=== PATIENT | female | born 1955 | race Caucasian/White ===

== ENCOUNTER 2018-07-22 11:50 | Emergency (ER) | payer BC, SELFPAY ==
[2018-07-22 11:52] VITALS: BP 161/77; PULSE 79; RESP 16; TEMP 36.7; O2SAT 97; BMI 28.3
--- NOTE | 2018-07-22 12:16 | RAD_ITS ---
STUDY: X-RAY - RIGHT HIP and pelvis REASON FOR EXAM: Female, 63 years old. Right hip pain TECHNIQUE: 2 views of the hip. An AP pelvis COMPARISON: None. FINDINGS: There is mild bilateral hip joint narrowing. There is minimal acetabular spurring. There is degenerative change of the symphysis pubis. The visualized degenerative change of the lower lumbar spine. Normal visualized superior and inferior pubic rami and ischial tuberosities. RAD/HIP, UNI W/ Pelvis 2-3 Views IMPRESSION: Mild degenerative change. No visualized acute fracture. Electronically Signed: Kyleigh Mayo MD at 12:47 EST Tel , Service support ,
--- NOTE | 2018-07-22 13:09 | ED.VISSUMM ---
- ER Visit Summary Date of Service: 07/22/18 Chief Complaint: [] Pain to the right anterior thigh for a few days after lifting logs History of Present Illness: The patient is a 63 F [] reports the other day she was lifting quite a bit of logs moving them around bending over multiple times she indicates she strained her right anterior thigh that pain has persisted and she presents for evaluation, she had no direct trauma no numbness weakness paresthesias no history of infection peripheral vascular disease or arthritic disorders her symptoms are restricted to the right anterior thigh and slightly to the lateral right hip no back pain and again no direct trauma Physical Examination: [] vSigns are within normal range General, no distress resting comfortably HEENT is generally unremarkable The neck is supple no adenopathy Cardiovascular, regular rate and rhythm Lungs, clear bilateral Abdomen, soft nontender Extremities, no clubbing cyanosis or edema she has a vague discomfort to the right anterior thigh that is generally unremarkable to inspection palpation there is no fullness or warmth there is no issues in the inguinal area she has a strong femoral pulse. She is able to fully extend and flex at the right knee the distal right knee tib-fib ankle and foot exam unremarkable her back is unremarkable and hip range of motion is really unremarkable except that any range of motion of the hip because of the pain in the right anterior thigh no trauma or bruising or signs of infection Neurologic, awake alert answering questions appropriately moving all 4 extremities Test Results: [] Emergency Department Course and Treatment: [] X-ray of the right hip shows nothing remarkable of explained above the patient This is likely related to some type of musculoskeletal strain given that is it is directly related to her lifting these multiple logs, she is treated with morphine here in the department Naprosyn for pain and she will follow-up with her family doctors the next few days Treatment Plan: [] Disposition: [] Home stable Impression: [] Right anterior thigh pain after lifting multiple logs This note was generated with [employer] dictation software. It may contain incorrect words, spelling, and punctuation that were not noted in review of the chart prior to signing ED Disposition - Plan for ED Patient: Referrals: Nahid Prado MD [Primary Care Provider] -
--- NOTE | 2018-07-22 13:13 | ED.DEP ---
ED Disposition - Plan for ED Patient: Instructions: ED Contusion Lower Ext Prescriptions: Naproxen [Naprosyn] 500 mg PO BID PRN #20 tab Referrals: Nahid Prado MD [Primary Care Provider] -
[2018-07-22] MEDS: Morphine 4 MG/ML Syringe IM (13:36)
[2018-07-22 14:37] VITALS: PULSE 83; RESP 14; O2SAT 99
== END 2018-07-22 14:14 | disposition home or self-care (01) ==
LOC: ED 13:54
PROVIDERS: Emergency Provider Emergency Medicine; Family Provider Internal Medicine; PCP Internal Medicine
DX: M79.651 Pain in right thigh (principal); X50.0XXA Overexertion from strenuous movement or load, initial encounter; Y93.89 Activity, other specified; Y92.89 Other specified places as the place of occurrence of the external cause; Y99.8 Other external cause status
CPT/HCPCS: 73502; 96372; 99284

== ENCOUNTER → 2019-04-12 08:32 | Outpatient (CLI) | payer BC, SELFPAY ==
--- NOTE | 2019-04-12 08:53 | EKG12_ITS ---
Test Reason : PRE OP Blood Pressure : / mmHG Vent. Rate : 068 BPM Atrial Rate : 068 BPM P-R Int : 176 ms QRS Dur : 078 ms QT Int : 434 ms P-R-T Axes : 042 078 094 degrees QTc Int : 461 ms Normal sinus rhythm Septal infarct , age undetermined Abnormal ECG Confirmed by HENRIQUE WHITTINGTON, AMBER ([id number]), housekeeping lead LORETTA PILLAI ([id number]) on 04/12/2019 12:15:39 PM Referred By: Param Clemente Confirmed By:AMBER DUENAS MD
[2019-04-12 08:55] LABS: Absolute Lymphocyte Count 2.37 X10^3/uL (0.83-4.51); Absolute Neutrophil Count 6.2 X10^3/uL (2.0-7.7); Basophil# 0.07 X10^3/uL; Basophil% 0.7 % (0-1); Eosinophil# 0.19 X10^3/uL; Hematocrit 42.8 % (37-47); Hemoglobin 13.8 g/dL (12.0-15.0); Lymphocyte # 2.37 X10^3/ul (4.0); Mean Corp Hgb Conc 32.2 g/dL (32-36); Mean Corpuscular Hgb 27.7 pg (27.0-32.0); Mean Corpuscular Volume 85.9 fL (81-99); Mean Platelet Vol. 10.4 fl (6.2-12.0); Monocyte# 0.59 X10^3/uL; Monocyte% 6.2 % (0-10); NRBC Flagged by Analyzer 0 % (0-5); Neutrophil # 6.24 X10^3/uL (2.7-7.7); Neutrophil % 65.9 % (47-70); Platelet Count 243 K/mm3 (150-450); RBC Distribution Width CV 14.6 % (11.6-14.6); RBC Distribution Width SD 45.9 fl (35.1-43.9); Red Blood Count 4.98 M/mm3 (4.2-5.4); White Blood Count 9.5 K/mm3 (4.4-11.0)
[2019-04-12 09:29] LABS: Anion Gap 7 (5-15); BUN 13 mg/dL (7-18); BUN/Creat Ratio 18.5 RATIO (10-20); Calcium,Total 8.9 mg/dL (8.5-10.1); Chloride 109 mmol/L (98-107); EST Glomerular Filtration Rate 90 mL/min (>60); Est Glom Filt Rate - Afr Amer 109 mL/min (>60); Glucose 126 mg/dL (74-106); Potassium 3.6 mmol/L (3.5-5.1); Sodium Level 144 mmol/L (136-145)
== END ==
PROVIDERS: Referring Provider Orthopaedic Surgery; Visit Provider Orthopaedic Surgery
DX: Z01.810 Encounter for preprocedural cardiovascular examination (principal); Z01.818 Encounter for other preprocedural examination
CPT/HCPCS: 36415; 80048; 85025; 93005

== ENCOUNTER 2020-08-10 00:59 | Inpatient (IN) | payer BC, SELFPAY ==
[2020-08-10] VITALS (24 sets, daily range): BP systolic 130–248; BP diastolic 55–105; PULSE 70–119; RESP 12–30; TEMP 36.1–36.9; O2SAT 73–99; BMI 29.9; BMI 29.5
--- NOTE | 2020-08-10 01:07 | RAD_ITS ---
STUDY: X-RAY CHEST REASON FOR EXAM: Female, 65 years old. sob TECHNIQUE: Single AP portable view of the chest. COMPARISON: None. FINDINGS: The lungs are normally expanded with fullness of the central vessels and interstitial prominence with BRADLEY B lines suggestive of early interstitial edema. There is no demonstrated pleural abnormality. Borderline cardiomegaly. Normal mediastinum and kamran. Normal visualized pulmonary arteries. There is atherosclerotic calcification of the aortic arch with tortuosity. Normal visualized thoracic spine. There is degenerative osteoarthritis of the bilateral shoulders. There is no demonstrated abnormality of the visualized soft tissue structures of the upper abdomen. RAD/Chest 1 View (Portable) IMPRESSION: Asymmetric interstitial pulmonary edema versus pneumonitis. Clinical correlation recommended. Electronically Signed: Brittny Ludwig MD at 2:13 EDT , Service support ,
--- NOTE | 2020-08-10 01:07 | EKG12_ITS ---
Test Reason : SOB Blood Pressure : / mmHG Vent. Rate : 103 BPM Atrial Rate : 103 BPM P-R Int : 160 ms QRS Dur : 088 ms QT Int : 392 ms P-R-T Axes : 077 100 -06 degrees QTc Int : 513 ms Sinus tachycardia with Premature supraventricular complexes Rightward axis Septal infarct , age undetermined Abnormal ECG Confirmed by HENRIQUE WHITTINGTON, AMBER ([id number]), editorial director JESSICA ROMO ([id number]) on 08/11/2020 9:04:39 AM Referred By: DAYNA Confirmed By:AMBER DUENAS MD
--- NOTE | 2020-08-10 01:30 | ED.VIS.GEN ---
History of Present Illness Chief Complaint: Shortness of Breath Informant: Patient Onset: Today Context: Sudden Onset Timing: Continuous Current Severity: Severe Maximum Severity: Severe Narrative: The patient is a 65-year-old female with history of prior arthritis, significant smoking history, but no diagnosis of COPD or asthma who presents to the emergency department rather acute onset shortness of breath. History is hard to gather from the patient given her acute respiratory distress. Apparently, she woke out of bed. She told her significant other that she was having difficult time breathing. He could hear her audibly wheezing. She sat in front of the fan but felt that she cannot catch her breath. She immediately presented here. On arrival, the patient was hypoxic with oxygen saturations in the upper 70s despite nasal cannula. She was placed on nonrebreather but immediately transitioned to BiPAP. The only current medication that she is on is meloxicam for her knees. She did state that she had bandlike chest tightness because she felt like she cannot catch her breath. She is had scant cough without hemoptysis. She denies fever. She did have cough leading to posttussive emesis. Prior similar symptoms: No Recent Illness/Hospitalization: No Past Medical History - Allergies and Home Meds Allergies/Adverse Reactions: Allergies acetaminophen [From Darvocet-N] Allergy (Verified 08/10/20 01:05) Hives propoxyphene [From Darvocet-N] Allergy (Verified 08/10/20 01:05) Hives Primary Care Physician: Care Physician,No Primary [Primary Care Provider] - Prior records reviewed: Yes Past Medical History: - - Significant smoking history, arthritis Surgical History: noncontributory Smoking Status: Current every day smoker Review of Systems General: Denies: Chills, Fever, Sweats Eyes: Denies: Visual changes - bilaterally, Diplopia ENT: Denies: Rhinorrhea, Sore throat Cardiovascular: Reports: Chest pain. Denies: Palpitations Respiratory: Reports: Dyspnea, Cough, Sputum, Dyspnea on exertion Gastrointestinal: Denies: Abdominal pain, Nausea, Vomiting, Diarrhea, Melena, Hematochezia Genitourinary: Denies: Dysuria, Hematuria, Frequency Musculoskeletal: Denies: Back pain, Extremity Pain Skin: Denies: Rash, Wounds Neurological: Denies: Headache, Weakness, Numbness Physical Exam Vital Signs/Narrative: Vital Signs Temp Pulse Resp BP Pulse Ox 03/22/21 01:06 248/105 H 08/10/20 01:04 97 F L 105 H 22 H 248/105 H 73 08/10/20 00:59 97 F L 105 H 22 H 73 Inital Vital Signs reviewed: Yes General: Well nourished, Well developed, Acute Distress Head: Normocephalic, Atraumatic Eyes: Perrl, EOMI ENT: Moist mucous membranes, No rhinorrhea Neck: Supple, Nontender Cardiovascular: Regular rhythm, No murmurs, Tachycardia Respiratory: Chest nontender, Wheezing, Diminished, Decreased Air Movement, Retractions Abdomen: Soft, Nontender, Nondistended, Normal bowel sounds Back: Nontender, Normal Inspection Extremities: Nontender, No edema Skin: Normal color, No rash Neurological: Alert, Oriented x3, Cranial nerves II-XII grossly intact, Normal Strength, Normal Sensation Psychological: Normal affect, Normal Mood Diagnostic/Tx/Re-eval Clinical Impression(s) from Imaging Studies Chest X-Ray 08/10/20 01:07 IMPRESSION: Asymmetric interstitial pulmonary edema versus pneumonitis. Clinical correlation recommended. Electronically Signed: Brittny Ludwig MD at 2:13 EDT , Service support , Abnormal Lab Results 08/10/20 08/10/20 08/10/20 01:15 01:27 01:35 WBC 8.0 RBC 4.96 Hgb 13.5 Hct 42.8 MCV 86.3 MCH 27.2 MCHC 31.5 L RDW Std Deviation 45.7 H RDW Coeff of Ele 14.4 Plt Count 195 MPV 11.0 Immature Gran % (Auto) 0.400 Neut % (Auto) 48.4 Lymph % (Auto) 40.5 Saunders % (Auto) 6.8 Eos % (Auto) 3.0 Baso % (Auto) 0.9 Absolute Neuts (auto) 3.9 Absolute Lymphs (auto) 3.23 Nucleated RBC % 0 Specimen Type ART Sample Site L Radial pH 7.34 L Bicarbonate Actual 21.0 L Total CO2 22 Base Excess -5 L O2 Saturation 92 L O2 % 35 ABG pCO2 39.2 ABG pO2 66 L David Test Positive O2 Delivery Device BiPAP Clinical Comments 02/11 35% Sodium 139 Potassium 2.7 L* Chloride 106 Carbon Dioxide 23.0 Anion Gap 10 BUN 13 Creatinine 0.78 Estim Creat Clear Calc 66.43 Est GFR (MDRD) Af Amer 96 Est GFR (MDRD) Non-Af 80 BUN/Creatinine Ratio 16.7 Glucose 215 H Lactic Acid Calcium 8.6 Troponin I 0.209 H B-Natriuretic Peptide 08/10/20 08/10/20 01:35 02:05 WBC RBC Hgb Hct MCV MCH MCHC RDW Std Deviation RDW Coeff of Ele Plt Count MPV Immature Gran % (Auto) Neut % (Auto) Lymph % (Auto) Saunders % (Auto) Eos % (Auto) Baso % (Auto) Absolute Neuts (auto) Absolute Lymphs (auto) Nucleated RBC % Specimen Type Sample Site pH Bicarbonate Actual Total CO2 Base Excess O2 Saturation O2 % ABG pCO2 ABG pO2 David Test O2 Delivery Device Clinical Comments Sodium Potassium Chloride Carbon Dioxide Anion Gap BUN Creatinine Estim Creat Clear Calc Est GFR (MDRD) Af Amer Est GFR (MDRD) Non-Af BUN/Creatinine Ratio Glucose Lactic Acid 2.4 H* Calcium Troponin I B-Natriuretic Peptide 133.1 H - Rhythm Strip Rhythm Strip: Sinus Tach Rate: 110 Ectopy: None - EKG Initial EKG Interpretation: No Acute Injury Pattern, Sinus Tachycardia, Non-Specific ST Changes Prior: Unchanged - Medical Decision Making On arrival, the patient is markedly hypertensive, my suspicion is this is because of her significant respiratory distress. She was transitioned immediately to BiPAP with marked improvement of her aeration and her comfort. ABG was obtained. Chest x-ray was obtained. Was reviewed by both myself and the radiologist. There is asymmetry of the vasculature with cephalization. There is no focal infiltrative process. The patient was hypoxemic, but not significantly acidotic. She was covered with Solu-Medrol and breathing treatments. She continued to be much more comfortable with the BiPAP. Screening labs are relatively unremarkable. The patient is hypokalemic which was replaced both orally and through the IV. Her cardiac enzymes are indeterminant, but given her global hypoxia and respiratory distress, my suspicion is this is likely type II strain. However, the patient was given aspirin. Blood cultures and lactic acid were also obtained. With the patient's hypoxic respiratory failure, I do feel that she is going to require admission. Impression 1. Hypoxic respiratory failure 2. COPD exacerbation 3. Hypokalemia ED Disposition - Plan for ED Patient: Referrals: Care Physician,No Primary [Primary Care Provider] -
[2020-08-10 01:31] LABS: Allen Test Positive; Base Excess -5 mmol/L (-2 to +2); Blood Gas Specimen Type ART; FI02 35; O2 Delivery Device BiPAP; PO2 66 mmHG (75-100); SITE L Radial; SO2 92 % (95-99); Total Carbon Dioxide 22 mmol/L; pCO2 39.2 mmHg (35-45); pH 7.34 (7.35-7.45)
[2020-08-10] MEDS: Ipratropium/Albuterol Sulfate 3 ML AMPUL.NEB INHALATION ×3 (01:34→12:54)
[2020-08-10] MEDS: Albuterol 2.5 MG/3 ML VIAL.NEB. INHALATION ×3 (01:34)
[2020-08-10 01:42] LABS: Absolute Lymphocyte Count 3.23 X10^3/uL (0.83-4.51); Absolute Neutrophil Count 3.9 X10^3/uL (2.0-7.7); Basophil# 0.07 X10^3/uL; Basophil% 0.9 % (0-1); Eosinophil# 0.24 X10^3/uL; Hematocrit 42.8 % (37-47); Hemoglobin 13.5 g/dL (12.0-15.0); Lymphocyte # 3.23 X10^3/ul (4.0); Lymphocyte % 40.5 % (19-41); Mean Corp Hgb Conc 31.5 g/dL (32-36); Mean Corpuscular Hgb 27.2 pg (27.0-32.0); Mean Corpuscular Volume 86.3 fL (81-99); Monocyte# 0.54 X10^3/uL; Monocyte% 6.8 % (0-10); NRBC Flagged by Analyzer 0 % (0-5); Neutrophil # 3.86 X10^3/uL (2.7-7.7); Neutrophil % 48.4 % (47-70); Platelet Count 195 K/mm3 (150-450); RBC Distribution Width CV 14.4 % (11.6-14.6); RBC Distribution Width SD 45.7 fl (35.1-43.9); Red Blood Count 4.96 M/mm3 (4.2-5.4)
[2020-08-10 01:44] LABS: Anion Gap 10 (5-15); BUN 13 mg/dL (7-18); BUN/Creat Ratio 16.7 RATIO (10-20); Calcium,Total 8.6 mg/dL (8.5-10.1); Chloride 106 mmol/L (98-107); Creatinine, Serum 0.78 mg/dL (0.55-1.02); EST Glomerular Filtration Rate 80 mL/min (>60); Est Glom Filt Rate - Afr Amer 96 mL/min (>60); Estimated Creatinine Clearance 66.43 ml/min; Glucose 215 mg/dL (74-106); Potassium 2.7 mmol/L (3.5-5.1); Sodium Level 139 mmol/L (136-145)
[2020-08-10] MEDS: MethylPREDNISolone 125 MG/2 ML Vial IV (01:46)
[2020-08-10] MEDS: Potassium Chloride Oral Soln 20 MEQ/15 ML UDC 40 MEQ PO (01:55)
[2020-08-10] MEDS: Potassium Chloride 10mEq/100mL 10 MEQ/100 ML IV.SOLN. 100 MEQ IV BOLUS ×2 (01:55→03:05)
[2020-08-10] MEDS: Aspirin 325 MG Tablet PO (01:55)
[2020-08-10 02:00] LABS: BNP,B-Type NATRIURETIC PEPTIDE 133.1 pg/mL (0-100)
[2020-08-10 02:35] LABS: Lactic Acid 2.4 mmol/L (0.4-1.9)
--- NOTE | 2020-08-10 03:07 | HP.PCM_ITS ---
Problem List (1) Acute hypoxemic respiratory failure Status: Acute History of Present Illness Date of Admission: 08/10/20 Chief Complaint: Shortness of breath The patient is a 65 year old F with a significant history of tobacco abuse who presented to the emergency department with sudden shortness of breath. For the past 3 weeks patient has had shortness of breath with mild exertion. However on the day of presentation she had very severe sudden onset shortness of breath more than she has had in the past 3 weeks. She placed herself in front of a fan, but did not seem to help her symptoms. Her significant other heard audibly wheezing. Also she had a cough with post-tussive emesis. In the emergency department, the patient was hypoxic. She was 73% on room air. She was placed immediately on BiPAP. The patient was treated with Solu-Medrol and nebulized aerosols. With BiPAP, her respiratory status did improve. ABG was obtained which showed hypoxemia, but no significant respiratory acidosis. The patient was markedly hypertensive on arrival with blood pressures of 250 systolic. With respiratory care and without other intervention, repeat blood pressure was down to 150 to 160. Past Medical History Medical History: Medical History (This Medical Record has been edited. Action required.) Denies previous medical history Allergies acetaminophen [From Darvocet-N] Allergy (Verified 08/10/20 01:05) Hives propoxyphene [From Darvocet-N] Allergy (Verified 08/10/20 01:05) Hives Home Medications: Ambulatory Orders Medication Instructions Recorded Meloxicam 15 mg PO DAILY 08/10/20 Surgical History: - - Elbow surgery Smoking Status: Current every day smoker Tobacco Use: Cigarettes - *Family History Maternal History Items: Diabetes Paternal History Items: Heart Disease Review of Systems Constitutional: Denies: Chills, Fever, Weight Change HEENT: Denies: Head Aches, Sinus Congestion, Sinus Drainage Cardiovascular: Denies: Chest Pain, Palpitations Respiratory: Reports: Cough, Shortness of Breath. Denies: Sputum production Gastrointestinal: Reports: Vomiting. Denies: Abdominal Pain, Nausea Genitourinary: Denies: Dysuria Musculoskeletal: Denies: Joint Pain, Joint Tenderness Skin: Denies: Rash, Wounds Neurological: Denies: Numbness, Tingling, Focal weakness Psychiatric: Denies: Anxiety, Depression, Homicidal Ideations, Suicidal Ideations Hematologic/ Lymphatic: Denies: Easy Bruising, Easy Bleeding VTE Information - Inpt Only VTE Present on Admission: No VTE Mechan Device Prophylaxis: None VTE Pharm Prophylaxis ordered?: Yes Patient Problems: Active and Suspected Problems (This Medical Record has been edited. Action required.) Acute hypoxemic respiratory failure (Acute) - Physical Exam Vitals/I&O's: Vital Signs Temp Pulse Resp BP Pulse Ox 98.4 F 100 18 160/83 H 99 08/10/20 02:49 08/10/20 02:49 08/10/20 02:49 08/10/20 02:49 08/10/20 02:49 Oxygen Flow Rate (L/min) 40 Oxygen Delivery Method Bi-pap Weight: 81.8 kg Body Mass Index (BMI) 29.9 Intake and Output for Last 24 Hours 08/08/20 08/09/20 08/10/20 23:59 23:59 23:59 Intake Total 100 / 100 Balance 100 / 100 General: Alert, Oriented x3, Cooperative HEENT: Atraumatic, PERRLA, EOMI, Normocephalic Neck: Supple, No JVD, Negative Carotid Bruits Lungs: Rales, Tachypneic Cardiovascular: Normal S1, Normal S2, No murmurs, Tachycardic Abdomen: Bowel Sounds Present, Soft, Non Tender Extremities: No edema, Capillary Refill Less than 3 Seconds Skin: No rashes, No breakdown Musculoskeletal: No Tenderness to Palpation of Joints or Extremities Neurological: Cranial nerves II-XII grossly intact Psych/Mental Status: Anxious Microbiology Past 72 Hours 08/10/20 02:10 Mucosa - Nose SARS-CoV-2 Antigen (Rapid) - Final Laboratory Results 08/10/20 01:15: Sodium 139, Potassium 2.7 L*, Chloride 106, Carbon Dioxide 23.0, Anion Gap 10, BUN 13, Creatinine 0.78, Estim Creat Clear Calc 66.43, Est GFR (MDRD) Af Amer 96, Est GFR (MDRD) Non-Af 80, BUN/Creatinine Ratio 16.7, Glucose 215 H, Calcium 8.6, Troponin I 0.209 H 08/10/20 01:27: Specimen Type ART, Sample Site L Radial, pH 7.34 L, Bicarbonate Actual 21.0 L, Total CO2 22, Base Excess -5 L, O2 Saturation 92 L, O2 % 35, ABG pCO2 39.2, ABG pO2 66 L, David Test Positive, O2 Delivery Device BiPAP, Clinical Comments 14/6 35% 08/10/20 01:35: WBC 8.0, RBC 4.96, Hgb 13.5, Hct 42.8, MCV 86.3, MCH 27.2, MCHC 31.5 L, RDW Std Deviation 45.7 H, RDW Coeff of Ele 14.4, Plt Count 195, MPV 11.0, Immature Gran % (Auto) 0.400, Neut % (Auto) 48.4, Lymph % (Auto) 40.5, Gregory % (Auto) 6.8, Eos % (Auto) 3.0, Baso % (Auto) 0.9, Absolute Neuts (auto) 3.9, Absolute Lymphs (auto) 3.23, Nucleated RBC % 0 08/10/20 01:35: B-Natriuretic Peptide 133.1 H 08/10/20 02:05: Lactic Acid 2.4 H* Current Medications Potassium Chloride () 10 meq in 100 mls @ 100 mls/hr IV BOLUS Q1H ALFA Stop: 08/10/20 03:59 Last Admin: 08/10/20 03:05 Dose: 100 mls/hr Documented by: Assessment/Plan All Active Problems (This Medical Record has been edited. Action required.) Acute hypoxemic respiratory failure (Acute) The patient is a 65 year old F with clinical head and who presented to the emergency department with sudden onset shortness of breath; wheezing; posttussive was found to be severely hypoxic requiring BiPAP; and with radiographic evidence of interstitial pulmonary edema versus pneumonitis. Acute hypoxemic respiratory failure Radiologist impression of chest x-ray: Asymmetric interstitial edema versus pneumonitis. Actual chest x-ray image was independently reviewed. Increased lung markings bilaterally and more prominent on the right side. Sravanthi B-lines noted. Hyperinflation of lungs with mild flattening of left side of diaphragm. ABG reviewed showed a pH of 7.34. Bicarbonate was 23 showing the patient is not a chronic retainer. Her PO2 was 66 mmHg on BiPAP. Etiology unclear. Likely secondary to acute bronchitis or flash pulmonary edema. Patient denies history of COPD. On BiPAP at emergency department and transition to nasal cannula oxygen. Continue BiPAP as needed. Oxygen per nasal cannula to maintain saturation more than 92%. Received Solu-Medrol; breathing treatment and Lasix at the emergency department. BNP is 133.1. Will obtain echocardiogram. Lasix 40 mg IV twice daily ordered. Potassium supplementation ordered. Placed on scheduled DuoNeb and Solu-Medrol. As needed albuterol inhalation ordered. Daily weights ordered. Cardiac diet ordered. Fluid restriction of 1,500 mL/day. Hypertensive emergency Organ dysfunction: Lungs Blood pressure initially in the 200s but with a BiPAP and other interventions at the emergency department her blood pressure decreased to 1 50-1 60. Nitroglycerin paste ordered. Trend blood pressure and adjust blood pressure medication. Lasix as above. Lactic acidosis Lactic acid of 2.4 on presentation likely secondary to hypoxia. Trend. Hypokalemia Albuterol and IV potassium placement ordered at the emergency department Placed on scheduled potassium oral supplementation. Elevated troponin Initial troponin was 0.209. EKG independently interpreted showed MAT. We will trend troponin. Treat respiratory failure as above. Acute hyperglycemia Blood glucose of 215. Likely secondary to stress. We will check A1c. Reported Accu-Chek with correction scale insulin. Tobacco abuse Counseled Declined nicotine patch. DVT prophylaxis Subcutaneous Lovenox. Inpatient E&M: 57612 Init Hosp L3
[2020-08-10] MEDS: Furosemide 40 MG/4 ML Vial IV ×3 (03:19→18:07)
[2020-08-10 04:50] LABS: Reflex Lactate? N
--- NOTE | 2020-08-10 04:54 | ECHOD_ITS ---
Reason For Study: SOB Procedure This was a 2D Doppler, Color Flow transthoracic echocardiogram. Exam performed portable in patient room. Left Ventricle Normal LV size. Moderate concentric left ventricular hypertrophy. Left ventricular systolic function is normal. The estimated ejection fraction is 60 %. Stage 2 diastolic dysfunction. No regional wall motion abnormalities noted. Right Ventricle Normal RV size. Normal systolic function. Atria The left atrium is moderately enlarged. Normal right atrium. Mitral Valve There is moderate mitral annular calcification. Small mobile structure attached to calcified mitral annulus. Tricuspid Valve Normal tricuspid valve. Aortic Valve Trivial eccentric aortic valve insufficiency. Pulmonic Valve Normal pulmonic valve. Great Vessels Normal aortic root. The pulmonary artery is normal size. Normal inferior vena cava. Pericardium/Pleural No pericardial effusion. MMode/2D Measurements & Calculations LVIDd: 4.2 cm IVSd: 1.4 cm Ao root diam: 3.9 cm LVIDs: 2.9 cm LVPWd: 1.7 cm LA dimension: 4.3 cm FS: 31.0 % LAV(MOD-bp): 92.9 ml LA A4 area: 26.7 cm2 RA A4 area: 19.8 cm2 LAV(MOD-bp) Indexed: 49.5 ml/m2 LAV(MOD-sp2): 95.9 ml LAV(MOD-sp4): 89.6 ml Time Measurements MV dec time: 0.29 sec Doppler Measurements & Calculations MV E max graham: 157.5 cm/sec MV V2 max: 191.6 cm/sec MV P1/2t max graham: 192.6 cm/sec MV A max graham: 105.5 cm/sec MV max P.7 mmHg MV P1/2t: 76.4 msec MV E/A: 1.5 MV V2 mean: 119.0 cm/sec MV dec slope: 738.4 cm/sec2 MV mean P.3 mmHg MVA(P1/2t): 2.9 cm2 MV V2 VTI: 50.8 cm Ao V2 max: 172.6 cm/sec LV V1 max: 155.8 cm/sec PA V2 max: 137.7 cm/sec Ao max P.9 mmHg LV V1 max P.7 mmHg Interpretation Summary Small mobile structure attached to calcified mitral annulus. Normal LV size. Moderate concentric left ventricular hypertrophy. Left ventricular systolic function is normal. The estimated ejection fraction is 60 %. Stage 2 diastolic dysfunction. The left atrium is moderately enlarged. Ordering Physician: Higinio Galloway Referring Physician: Saundra PCP Performed By: Mason Reyes RCS
[2020-08-10 05:09] LABS: Anion Gap 8 (5-15); BUN 11 mg/dL (7-18); BUN/Creat Ratio 16.2 RATIO (10-20); Calcium,Total 8.6 mg/dL (8.5-10.1); Chloride 109 mmol/L (98-107); Creatinine, Serum 0.68 mg/dL (0.55-1.02); EST Glomerular Filtration Rate 93 mL/min (>60); Est Glom Filt Rate - Afr Amer 113 mL/min (>60); Glucose 136 mg/dL (74-106); Potassium 3.4 mmol/L (3.5-5.1); Sodium Level 144 mmol/L (136-145)
[2020-08-10 05:11] LABS: Lactic Acid 2.6 mmol/L (0.4-1.9)
[2020-08-10] MEDS: 0.9% Saline Lock 10 ML Syringe IV ×4 (05:18→18:07)
[2020-08-10] MEDS: Nitroglycerin Oint 1 INCH PACKET 0.5 INCH TD ×3 (05:21→18:07)
[2020-08-10 05:41] LABS: Bedside Glucose 143 mg/dL (70-110)
[2020-08-10 07:07] LABS: Absolute Lymphocyte Count 0.68 X10^3/uL (0.83-4.51); Absolute Neutrophil Count 9.7 X10^3/uL (2.0-7.7); Basophil# 0.03 X10^3/uL; Basophil% 0.3 % (0-1); Eosinophil# 0.01 X10^3/uL; Eosinophils% 0.1 % (0-5); Hematocrit 39.5 % (37-47); Hemoglobin 12.4 g/dL (12.0-15.0); Lymphocyte # 0.68 X10^3/ul (4.0); Lymphocyte % 6.4 % (19-41); Mean Corp Hgb Conc 31.4 g/dL (32-36); Mean Corpuscular Volume 85.9 fL (81-99); Mean Platelet Vol. 10.7 fl (6.2-12.0); Monocyte# 0.14 X10^3/uL; Monocyte% 1.3 % (0-10); NRBC Flagged by Analyzer 0 % (0-5); Neutrophil # 9.65 X10^3/uL (2.7-7.7); Neutrophil % 91.5 % (47-70); Platelet Count 258 K/mm3 (150-450); RBC Distribution Width CV 14.6 % (11.6-14.6); RBC Distribution Width SD 45.9 fl (35.1-43.9); White Blood Count 10.6 K/mm3 (4.4-11.0)
[2020-08-10 07:53] LABS: Hemoglobin A1c 5.5 % (3.8-5.6)
[2020-08-10] MEDS: Enoxaparin 40 MG/0.4 ML Syringe SC (10:18)
[2020-08-10] MEDS: Potassium Chloride Oral Tablet 20 MEQ 40 MEQ PO ×2 (10:18→18:07)
[2020-08-10 11:40] LABS: Bedside Glucose 187 mg/dL (70-110)
--- NOTE | 2020-08-10 13:03 | PCM.PN.HOSP ---
Patient Problems: Active and Suspected Problems (This Medical Record has been edited. Action required.) Acute hypoxemic respiratory failure (Acute) Subjective: Patient seen and examined. She feels much better today, and denies shortness of breath, cough or chest pain. Review of systems is otherwise negative. She was admitted with sudden onset shortness of breath, and require BiPAP. She is now on 2 L of oxygen by nasal cannula. She has remained hemodynamically stable. Vitals/I&O's: Vital Signs Temp Pulse Resp BP Pulse Ox 98.3 F 82 18 130/58 H 97 08/10/20 10:25 08/10/20 10:25 08/10/20 10:25 08/10/20 10:25 08/10/20 10:25 Oxygen Flow Rate (L/min) 2 Oxygen Delivery Method Nasal Cannula Weight: 177 lb 11.2 oz Body Mass Index (BMI) 29.5 Intake and Output for Last 24 Hours 08/08/20 08/09/20 08/10/20 23:59 23:59 23:59 Intake Total 200 / 200 Output Total 600 / 600 Balance -400 / -400 General: Alert, Oriented x3, Cooperative, No apparent distress HEENT: Atraumatic, PERRLA, EOMI, Normocephalic Oral: Dry Mucosa Neck: Supple, No JVD, Negative Carotid Bruits Lungs: - - diminished breath sounds bibasally, few wheezes and crackles. on 2L of oxygen Cardiovascular: Regular rate, Regular Rhythm, Normal S1, Normal S2, No murmurs Abdomen: Bowel Sounds Present, Soft, Non Tender, Non-Distended, No Hepato-splenomegaly Extremities: No clubbing, No cyanosis, No edema, Capillary Refill Less than 3 Seconds Skin: No rashes, No breakdown Musculoskeletal: No Tenderness to Palpation of Joints or Extremities Lymphatic: No Cervical, Supraclavicular, or Inguinal Adenopathy Neurological: Cranial nerves II-XII grossly intact, Neuro grossly intact, Motor Exam 5/5 strength throughout Psych/Mental Status: Normal Affect, Appropriate, Alert and oriented to time, place, person, mood and affect Microbiology Past 72 Hours 08/10/20 02:10 Mucosa - Nose SARS-CoV-2 Antigen (Rapid) - Final Laboratory Results 08/10/20 01:15: Sodium 139, Potassium 2.7 L*, Chloride 106, Carbon Dioxide 23.0, Anion Gap 10, BUN 13, Creatinine 0.78, Estim Creat Clear Calc 66.43, Est GFR (MDRD) Af Amer 96, Est GFR (MDRD) Non-Af 80, BUN/Creatinine Ratio 16.7, Glucose 215 H, Calcium 8.6, Troponin I 0.209 H 08/10/20 01:27: Specimen Type ART, Sample Site L Radial, pH 7.34 L, Bicarbonate Actual 21.0 L, Total CO2 22, Base Excess -5 L, O2 Saturation 92 L, O2 % 35, ABG pCO2 39.2, ABG pO2 66 L, David Test Positive, O2 Delivery Device BiPAP, Clinical Comments 14/6 35% 08/10/20 01:35: WBC 8.0, RBC 4.96, Hgb 13.5, Hct 42.8, MCV 86.3, MCH 27.2, MCHC 31.5 L, RDW Std Deviation 45.7 H, RDW Coeff of Ele 14.4, Plt Count 195, MPV 11.0, Immature Gran % (Auto) 0.400, Neut % (Auto) 48.4, Lymph % (Auto) 40.5, [place] % (Auto) 6.8, Eos % (Auto) 3.0, Baso % (Auto) 0.9, Absolute Neuts (auto) 3.9, Absolute Lymphs (auto) 3.23, Nucleated RBC % 0 08/10/20 01:35: B-Natriuretic Peptide 133.1 H 08/10/20 02:05: Lactic Acid 2.4 H* 08/10/20 04:40: Troponin I 0.314 H 08/10/20 04:40: Lactic Acid 2.6 H* 08/10/20 04:40: Sodium 144, Potassium 3.4 L, Chloride 109 H, Carbon Dioxide 27.0, Anion Gap 8, BUN 11, Creatinine 0.68, Estim Creat Clear Calc 76.20, Est GFR (MDRD) Af Amer 113, Est GFR (MDRD) Non-Af 93, BUN/Creatinine Ratio 16.2, Glucose 136 H, Calcium 8.6 08/10/20 05:21: POC Glucose 143 H 08/10/20 06:50: Troponin I 0.323 H 08/10/20 06:50: Hemoglobin A1c 5.5 08/10/20 06:50: WBC 10.6, RBC 4.60, Hgb 12.4, Hct 39.5, MCV 85.9, MCH 27.0, MCHC 31.4 L, RDW Std Deviation 45.9 H, RDW Coeff of Ele 14.6, Plt Count 258, MPV 10.7, Immature Gran % (Auto) 0.400, Neut % (Auto) 91.5 H, Lymph % (Auto) 6.4 L, [place] % (Auto) 1.3, Eos % (Auto) 0.1, Baso % (Auto) 0.3, Absolute Neuts (auto) 9.7 H, Absolute Lymphs (auto) 0.68 L, Nucleated RBC % 0 08/10/20 11:32: POC Glucose 187 H Diagnostic Data Chest X-Ray 08/10/20 01:07 IMPRESSION: Asymmetric interstitial pulmonary edema versus pneumonitis. Clinical correlation recommended. Electronically Signed: Brittny Ludwig MD at 2:13 EDT , Service support , Current Medications Acetaminophen (Acetaminophen 325 Mg Tablet) 650 mg PO Q6H PRN PRN PRN Reason: Pain Score 1-10/Temp > 100.7 F Albuterol Sulfate (Albuterol 2.5 Mg/3 Ml Vial.Neb.) 2.5 mg INHALATION Q2H PRN PRN PRN Reason: SHORTNESS OF BREATH Albuterol/Ipratropium (Ipratropium/Albuterol Sulfate 3 Ml Ampul.Neb) 3 ml INHALATION Q6HWA.RT [facility] Last Admin: 08/10/20 12:54 Dose: 3 ml Documented by: Dextrose (Dextrose 50%-Water 25 Gm/50 Ml Disp.Syrin) 0 gm IV X1 PRN; Protocol PRN Reason: Hypoglycemia Enoxaparin Sodium (Enoxaparin 40 Mg/0.4 Ml Syringe) 40 mg SC DAILY [facility] Last Admin: 08/10/20 10:18 Dose: 40 mg Documented by: Furosemide (Furosemide 40 Mg/4 Ml Vial) 40 mg IV BID@1000,1800 [facility] Last Admin: 08/10/20 10:18 Dose: 40 mg Documented by: Glucagon (Glucagon 1 Mg/Ml Syringe) 1 mg IM .X1 PRN PRN Reason: Hypoglycemia Sodium Chloride () 250 mls @ 15 mls/hr IV .[id number] PRN PRN Reason: Saline Flush Insulin Human Lispro (Insulin Lispro 100 Unit/Ml Insuln.Pen) 0 unit SC ACHS [facility]; Protocol Last Admin: 08/10/20 05:22 Dose: Not Given Documented by: Melatonin (Melatonin 3 Mg Tablet) 3 mg PO QHS PRN PRN PRN Reason: INSOMNIA Methylprednisolone (Methylprednisolone 40 Mg/Ml Vial) 40 mg IV Q8 [facility] Last Admin: 08/10/20 12:52 Dose: 40 mg Documented by: Nitroglycerin (Nitroglycerin Oint 1 Inch Packet) 0.5 inch TD Q6 [facility] Last Admin: 08/10/20 12:53 Dose: 0.5 inch Documented by: Ondansetron HCl (Ondansetron 4 Mg/2 Ml Vial) 4 mg IV Q8H PRN PRN PRN Reason: NAUSEA/VOMITING Potassium Chloride (Potassium Chloride Oral Tablet 20 Meq) 40 meq PO BIDCM [facility] Last Admin: 08/10/20 10:18 Dose: 40 meq Documented by: Senna/Docusate Sodium (Senna/Docusate Sodium 1 Tablet) 2 tablet PO BID PRN PRN PRN Reason: Constipation Sodium Chloride (0.9% Saline Lock 10 Ml Syringe) 10 - 40 ml IV UD PRN PRN Reason: SALINE FLUSH Last Admin: 08/10/20 12:52 Dose: 10 ml Documented by: STROKE Vital Signs/Narrative: Vital Signs Temp Pulse Resp BP Pulse Ox 08/10/20 10:25 98.3 F 82 18 130/58 H 97 Medical Necessity - Tobacco Use Smoking Status: Current every day smoker Tobacco Use: Cigarettes Assessment/Plan All Active Problems (This Medical Record has been edited. Action required.) Acute hypoxemic respiratory failure (Acute) #Acute hypoxic respiratory failure xray showed asymmetric interstitial edema vs pneumonitis, as well as hyperinflation cause of acute onset shortness of breath is not very clear on IV solumedrol troponins were elevated and peaked at 0.343; this could have been due to hypoxia though. 2D echo ordered will also get a CTA of the chest to rule out PE titrate oxygen to maintain sats >90% breathing treatment with bronchodilators #Hypertensive emergency resolved. BP is normal now. #Lactic acidosis: likely due to hypoxia. Stable #Hypokalemia: resolved #Nonstemi 0.323. EKG showed multiatrial tachycardia. 2D echo ordered, pending. likely due to demand ischemia from hypoxia CTA of the chest pending to rule out PE get cardiology consult if CTA is negative #Acute hyperglycemia: resolved, A1C was 5.5 Nicotine dependence: counseled to quit. Nicotine patch 21mg daily DVT prophylaxis: lovenox Inpatient E&M: 91335 Subs Hosp L2
--- NOTE | 2020-08-10 13:50 | CT_ITS ---
STUDY: CTA CHEST REASON FOR EXAM: Female, 65 years old. Acute shortness of breath RADIATION DOSAGE (If Supplied By Facility): CTDIvol = ( 10.29 ) mGy, DLP = ( 331.41 ) mGycm TECHNIQUE: The examination was performed with the intravenous administration of IV 100mL Isovue-370. Post-processing of the angiographic images was performed, with multiplanar reformation and 3D reconstruction. Individualized dose optimization techniques were used for this CT. COMPARISON: None. FINDINGS: Several intraluminal filling defects are seen in branches of the right upper lobe pulmonary artery suggestive of a pulmonary embolism. Smaller defects are seen in branches of the left upper lobe pulmonary artery. Normal thoracic aorta and visualized great vessels. There is no demonstrated aortic dissection. Normal heart and pericardium. Normal mediastinum. Normal hilar regions. Normal visualized trachea and bronchi. The lungs are well expanded. Mild degree of increased interstitial markings are seen at the lung bases. Normal pleura. Normal chest wall structures. There are degenerative changes of thoracic spine. There is a 2.8 cm hypodense nodule in the right adrenal gland suggestive of an adenoma. Status post cholecystectomy. CT/CTA Chest W/WO Contrast IMPRESSION: Pulmonary emboli involving branches of both the right and left upper lobe pulmonary arteries. Mild degree of increased interstitial markings at the lung bases. Electronically Signed: Ariel Tate MD at 14:41 EDT , Service support ,
--- NOTE | 2020-08-10 14:02 | CASEMGMT ---
RN CM Assessment Note Attempted x 2 to see patient. Not in room. Brandy MADSENN RN ACM
[2020-08-10 15:43] LABS: D-Dimer Quantitative (DVT/PE) 1.24 FEU/ug/m (0.27-0.49)
[2020-08-10] MEDS: APIXABAN 5 MG TABLET 10 MG PO ×2 (15:46→21:27)
[2020-08-10 17:11] LABS: Bedside Glucose 237 mg/dL (70-110)
--- NOTE | 2020-08-10 19:23 | CPS ---
Pt states she does not want to wear bipap tonight.
[2020-08-10 21:40] LABS: Bedside Glucose 204 mg/dL (70-110)
[2020-08-11 03:00] VITALS: PULSE 71
[2020-08-11 03:25] VITALS: BP 124/81; PULSE 83; RESP 16; TEMP 36.8; O2SAT 94
[2020-08-11] MEDS: 0.9% Saline Lock 10 ML Syringe IV ×2 (06:31→10:00)
[2020-08-11 07:10] VITALS: PULSE 66; RESP 18; O2SAT 93
[2020-08-11] MEDS: Ipratropium/Albuterol Sulfate 3 ML AMPUL.NEB INHALATION (07:10)
[2020-08-11 07:50] VITALS: PULSE 74
[2020-08-11 08:14] LABS: Absolute Lymphocyte Count 1.39 X10^3/uL (0.83-4.51); Absolute Neutrophil Count 16.7 X10^3/uL (2.0-7.7); Basophil# 0.02 X10^3/uL; Basophil% 0.1 % (0-1); Hematocrit 39.8 % (37-47); Hemoglobin 12.8 g/dL (12.0-15.0); Lymphocyte # 1.39 X10^3/ul (4.0); Lymphocyte % 7.3 % (19-41); Mean Corp Hgb Conc 32.2 g/dL (32-36); Mean Corpuscular Hgb 27.9 pg (27.0-32.0); Mean Corpuscular Volume 86.7 fL (81-99); Mean Platelet Vol. 10.8 fl (6.2-12.0); Monocyte# 0.84 X10^3/uL; Monocyte% 4.4 % (0-10); NRBC Flagged by Analyzer 0 % (0-5); Neutrophil # 16.67 X10^3/uL (2.7-7.7); Neutrophil % 87.6 % (47-70); Platelet Count 278 K/mm3 (150-450); RBC Distribution Width CV 14.8 % (11.6-14.6); RBC Distribution Width SD 46.9 fl (35.1-43.9); Red Blood Count 4.59 M/mm3 (4.2-5.4)
[2020-08-11 08:34] LABS: Anion Gap 9 (5-15); BUN 15 mg/dL (7-18); BUN/Creat Ratio 17.8 RATIO (10-20); Calcium,Total 8.7 mg/dL (8.5-10.1); Chloride 105 mmol/L (98-107); Creatinine, Serum 0.84 mg/dL (0.55-1.02); EST Glomerular Filtration Rate 73 mL/min (>60); Est Glom Filt Rate - Afr Amer 88 mL/min (>60); Estimated Creatinine Clearance 61.68 ml/min; Glucose 202 mg/dL (74-106); Potassium 3.6 mmol/L (3.5-5.1); Sodium Level 138 mmol/L (136-145)
[2020-08-11 08:40] VITALS: BP 146/64; PULSE 76; RESP 16; TEMP 36.4; O2SAT 93
[2020-08-11] MEDS: Potassium Chloride Oral Tablet 20 MEQ 40 MEQ PO (09:46)
[2020-08-11] MEDS: APIXABAN 5 MG TABLET 10 MG PO (09:46)
[2020-08-11] MEDS: Furosemide 40 MG/4 ML Vial IV (09:47)
--- NOTE | 2020-08-11 09:55 | CASEMGMT ---
RN CM Face to Face with patient for initial transition planning/care coordination assessment. RN CM introduced self and role at [facility]. Patient lying in bed, alert and oriented. Patient willing to participate in assessment and is able to answer all questions appropriately. Care providers, pharmacy, and demographics verified. Patient wishes to discharge home, denies need for home health at this time. Patient states she has no further needs or concerns at this time. CM to follow for discharge planning needs that may arise. PCP: No PCP, list provided to patient Specialists: moustapha Clemente Preferred Pharmacy: [facility] Insurance: [employer] Prescription Benefit: yes Living Will/HPOA: none LNOK: daughter Living Arrangements: Patient lives with friend in a mobile home with 3-4 steps and railing to enter. Patient states she is independent at home. Transportation: self, friend DME/HHC: Patient states she has cane and walker at home. Denied other needs at this time. No previous SNF or HHC. Patient provided with [employer] cards at this time. Disposition Plan: Patient to discharge home with family/friend support and follow-up plans in place. Lou SCHULTZ, RN, CM
--- NOTE | 2020-08-11 10:01 | PCM.DC ---
- Discharge Diagnoses Current Active Problems: Current Active and Chronic Problems (This Medical Record has been edited. Action required.) Acute hypoxemic respiratory failure (Acute) You will use the following diet at home:: No restrictions Your food should be the consistency of: Regular Your liquids should be the consistency of: Regular/Thin Discharge Activity: Return to Normal Activity Weight Bearing Status: Weight bearing as tolerated Call your doctor if you observe: Fever of 101 or Higher, Shortness of breath, Dizziness, Fainting spells, Swelling in the ankles, Chest pain Instructions: Pulmonary Embolism Additional Instructions: followup with PCP for age appropriate screening, ie mammogram and colonoscopy Allergies/Adverse Reactions: Allergies acetaminophen [From Darvocet-N] Allergy (Verified 08/10/20 01:05) Hives propoxyphene [From Darvocet-N] Allergy (Verified 08/10/20 01:05) Hives Medications to take at Discharge Albuterol IH (ProAir) [Proair Hfa] 1 - 2 puff INHALATION Q4H PRN PRN #1 inhaler 08/11/20 Apixaban [Eliquis] 10 mg PO UD #60 tablet 08/11/20 The following prescriptions were given: Apixaban [Eliquis] 10 mg PO UD #60 tablet Transmission Status: Pending to [facility] #30 Albuterol IH (ProAir) [Proair Hfa] 1 - 2 puff INHALATION Q4H PRN PRN #1 inhaler PRN Reason: Sob &/Or Wheezing Transmission Status: Pending to [facility] Primary Care Physician: Care Physician,No Primary [Primary Care Provider] - Test Results: Test results from this visit will be discussed in further detail at your follow-up appointment, if applicable. Please Follow Up With: Abdulaziz Ackerman MD When: Call office to set up appointment for PCP Proposed Discharge Date: 08/11/20
--- NOTE | 2020-08-11 10:03 | PCM.WORK.EX ---
Work/School Excuse Please excuse this person from:: Work From: 08/11/20 through: 08/14/20
--- NOTE | 2020-08-11 10:04 | PCM.DC.SUM ---
Discharge Date and Diagnosis - Problem List Patient Problems: Active and Suspected Problems (This Medical Record has been edited. Action required.) Acute hypoxemic respiratory failure (Acute) Date of Admission: 08/10/20 Date of Discharge: 08/11/20 - Primary Discharge Diagnosis Acute Problems: Active Problems (This Medical Record has been edited. Action required.) Acute hypoxemic respiratory failure (Acute) Pulmonary embolism Hospital Course and Treatment Imaging Results: Diagnostic Data Chest X-Ray 08/10/20 01:07 IMPRESSION: Asymmetric interstitial pulmonary edema versus pneumonitis. Clinical correlation recommended. Electronically Signed: Brittny Ludwig MD at 2:13 EDT , Service support , Chest CTA 08/10/20 13:50 IMPRESSION: Pulmonary emboli involving branches of both the right and left upper lobe pulmonary arteries. Mild degree of increased interstitial markings at the lung bases. Electronically Signed: Ariel Tate MD at 14:41 EDT , Service support , Operations: None Procedures: 2-D Echocardiogram Summary of Care Provided: The patient is a 65 year old F with no significant past medical history was admitted through the ED on 08/10/2020 with a complaint of shortness of breath. She had been having shortness of breath with mild exertion for 3 weeks prior to admission. However on the day of presentation, she had severe sudden onset shortness of breath with associated wheezing and a cough. On arrival in the ED, she was saturating at 73% on room air. She was placed on BiPAP and started on Solu-Medrol and breathing treatments. Respiratory status improved on BiPAP and ABG done showed hypoxemia but no significant respiratory acidosis. Initial troponin was 0.209 and trended up to 0.323 and BNP was also mildly elevated. Chest x-ray showed concern for some pulmonary vascular congestion. She was admitted and managed for acute hypoxic respiratory failure due to new onset heart failure. Shortness of breath completely resolved. Due to suddenness of patient's shortness of breath, a CT of the chest was done which showed several intraluminal filling defects in the branches of the right upper lobe pulmonary artery suggestive of pulmonary embolism with similar defects in the left upper lobe pulmonary artery. She was therefore started on Eliquis. 2D echo done EF of 60% with stage II diastolic dysfunction and no regional motion abnormalities seen with a small mobile structure attached to the calcified mitral annulus. Patient remained stable and was discharged home on 08/11/2020. She was discharged with a prescription for Eliquis for PE. She had no age-appropriate screening. She was therefore counseled to follow-up with her primary care doctor to establish care to have age-appropriate screening. She was counseled that she would need to be on Eliquis for at least 6 months. Is also discharged with a prescription for albuterol inhaler. Patient seen and examined prior to discharge. She had no concerns and felt much better. Review of systems otherwise negative. Labs and vitals reviewed. Home medication reviewed and reconciled. O/e: Vital Signs Temp Pulse Resp BP Pulse Ox 97.6 F L 76 16 146/64 H 93 08/11/20 08:40 08/11/20 08:40 08/11/20 08:40 08/11/20 08:40 08/11/20 08:40 [] General: Alert, Oriented x3, Cooperative, No apparent distress HEENT: Atraumatic, PERRLA, EOMI, Normocephalic Oral: Dry Mucosa Neck: Supple, No JVD, Negative Carotid Bruits Lungs: - - diminished breath sounds bibasally, few wheezes and crackles. on 2L of oxygen Cardiovascular: Regular rate, Regular Rhythm, Normal S1, Normal S2, No murmurs Abdomen: Bowel Sounds Present, Soft, Non Tender, Non-Distended, No Hepato-splenomegaly Extremities: No clubbing, No cyanosis, No edema, Capillary Refill Less than 3 Seconds Skin: No rashes, No breakdown Musculoskeletal: No Tenderness to Palpation of Joints or Extremities Lymphatic: No Cervical, Supraclavicular, or Inguinal Adenopathy Neurological: Cranial nerves II-XII grossly intact, Neuro grossly intact, Motor Exam 5/5 strength throughout Psych/Mental Status: Normal Affect, Appropriate, Alert and oriented to time, place, person, mood and affect Plan is for discharge home today Patient Problems: Active and Suspected Problems (This Medical Record has been edited. Action required.) Acute hypoxemic respiratory failure (Acute) - Physical Exam Vitals/I&O's: Vital Signs Temp Pulse Resp BP Pulse Ox 97.6 F L 76 16 146/64 H 93 08/11/20 08:40 08/11/20 08:40 08/11/20 08:40 08/11/20 08:40 08/11/20 08:40 Oxygen Flow Rate (L/min) 2 Oxygen Delivery Method Room Air Weight: 174 lb 9.698 oz Body Mass Index (BMI) 29.5 Intake and Output for Last 24 Hours 08/09/20 08/10/20 08/11/20 23:59 23:59 23:59 Intake Total 200 / 200 Output Total 600 / 600 Balance -400 / -400 Microbiology Past 72 Hours 08/10/20 02:10 Mucosa - Nose SARS-CoV-2 Antigen (Rapid) - Final Laboratory Results 08/10/20 11:32: POC Glucose 187 H 08/10/20 14:55: D-Dimer Quant (PE/DVT) 1.24 H* 08/10/20 16:56: POC Glucose 237 H 08/10/20 21:25: POC Glucose 204 H 08/11/20 08:00: WBC 19.0 H, RBC 4.59, Hgb 12.8, Hct 39.8, MCV 86.7, MCH 27.9, MCHC 32.2, RDW Std Deviation 46.9 H, RDW Coeff of Ele 14.8 H, Plt Count 278, MPV 10.8, Immature Gran % (Auto) 0.600, Neut % (Auto) 87.6 H, Lymph % (Auto) 7.3 L, [place] % (Auto) 4.4, Eos % (Auto) 0.0, Baso % (Auto) 0.1, Absolute Neuts (auto) 16.7 H, Absolute Lymphs (auto) 1.39, Nucleated RBC % 0 08/11/20 08:00: Sodium 138, Potassium 3.6, Chloride 105, Carbon Dioxide 24.0, Anion Gap 9, BUN 15, Creatinine 0.84, Estim Creat Clear Calc 61.68, Est GFR (MDRD) Af Amer 88, Est GFR (MDRD) Non-Af 73, BUN/Creatinine Ratio 17.8, Glucose 202 H, Calcium 8.7 Current Medications Acetaminophen (Acetaminophen 325 Mg Tablet) 650 mg PO Q6H PRN PRN PRN Reason: Pain Score 1-10/Temp > 100.7 F Albuterol Sulfate (Albuterol 2.5 Mg/3 Ml Vial.Neb.) 2.5 mg INHALATION Q2H PRN PRN PRN Reason: SHORTNESS OF BREATH Albuterol/Ipratropium (Ipratropium/Albuterol Sulfate 3 Ml Ampul.Neb) 3 ml INHALATION Q6HWA.RT [facility] Last Admin: 08/11/20 07:10 Dose: 3 ml Documented by: Apixaban (Apixaban 5 Mg Tablet) 10 mg PO BID [facility] Last Admin: 08/11/20 09:46 Dose: 10 mg Documented by: Dextrose (Dextrose 50%-Water 25 Gm/50 Ml Disp.Syrin) 0 gm IV X1 PRN; Protocol PRN Reason: Hypoglycemia Furosemide (Furosemide 40 Mg/4 Ml Vial) 40 mg IV BID@1000,1800 [facility] Last Admin: 08/11/20 09:47 Dose: 40 mg Documented by: Glucagon (Glucagon 1 Mg/Ml Syringe) 1 mg IM .X1 PRN PRN Reason: Hypoglycemia Sodium Chloride () 250 mls @ 15 mls/hr IV .[id number] PRN PRN Reason: Saline Flush Melatonin (Melatonin 3 Mg Tablet) 3 mg PO QHS PRN PRN PRN Reason: INSOMNIA Methylprednisolone (Methylprednisolone 40 Mg/Ml Vial) 40 mg IV Q8 [facility] Last Admin: 08/11/20 06:31 Dose: 40 mg Documented by: Ondansetron HCl (Ondansetron 4 Mg/2 Ml Vial) 4 mg IV Q8H PRN PRN PRN Reason: NAUSEA/VOMITING Potassium Chloride (Potassium Chloride Oral Tablet 20 Meq) 40 meq PO BIDCM [facility] Last Admin: 08/11/20 09:46 Dose: 40 meq Documented by: Senna/Docusate Sodium (Senna/Docusate Sodium 1 Tablet) 2 tablet PO BID PRN PRN PRN Reason: Constipation Sodium Chloride (0.9% Saline Lock 10 Ml Syringe) 10 - 40 ml IV UD PRN PRN Reason: SALINE FLUSH Last Admin: 08/11/20 10:00 Dose: 10 ml Documented by: Discharge Diet: Low fat/ Low Cholesterol Discharge Activity: Return to Normal Activity Weight Bearing Status: Weight bearing as tolerated Call your doctor if you observe: Fever of 101 or Higher, Shortness of breath, Dizziness, Fainting spells, Swelling in the ankles, Chest pain Home Medications: Medications to take at Discharge Albuterol IH (ProAir) [Proair Hfa] 1 - 2 puff INHALATION Q4H PRN PRN #1 inhaler 08/11/20 Apixaban [Eliquis] 10 mg PO UD #60 tablet 08/11/20 Following Prescriptions Were Given to Patient: Apixaban [Eliquis] 10 mg PO UD #60 tablet Transmission Status: Received by [facility] #30 Albuterol IH (ProAir) [Proair Hfa] 1 - 2 puff INHALATION Q4H PRN PRN #1 inhaler PRN Reason: Sob &/Or Wheezing Transmission Status: Received by [facility]30 Primary Care Physician: Care Physician,No Primary [Primary Care Provider] - Please Follow Up With: Abdulaziz Ackerman MD When: Call office to set up appointment for PCP Patient Instructions: Pulmonary Embolism Disposition: Home Minutes spent on discharge:: 45 Patient Condition:: Stable Medical Necessity - Tobacco Use Smoking Status: Current every day smoker Tobacco Use: Cigarettes Meaningful Use Info Meaningful Use Diagnoses (Choose all that apply): VTE - VTE Anticoag overlap given w/in hospital stay or rx'd at dc?: Yes Pt receive overlap for 5 days?: No Reason overlap not ordered, prescribed, or given for 5 days: Procedure Not Indicated Inpatient E&M: [id number] Disch Hosp
--- NOTE | 2020-08-11 10:44 | CASEMGMT ---
Pt to be sent home on Eliquis at discharge and med e-scribed to [facility] previously. Call to [facility] and per pharmacist, pt's co-pay for Eliquis is $25 at this time and co-pay for inhaler is $10 at this time. Pt already provided with Eliquis cards. Elias PENA CM
--- NOTE | 2020-08-11 11:18 | PHA.DC.MC ---
Pharmacy Service has performed discharge medication reconciliation and counseling for this patient. 1. ALBUTEROL INHALER 1-2 PUFFS Q4H PRN SOB/WHEEZING 2. APIXABAN 10MG PO BID X 7 DAYS, THEN 5MG PO BID X 6 MONTHS The patient's discharge medication list was reviewed for discrepancies and discrepancies were resolved. RN JOEL asked this [facility] to notify patient of prescriptions. Albuterol is $10 and Eliquis is $25. Patient verbalized understanding. Home Medications Albuterol IH (ProAir) [Proair Hfa] 1 - 2 puff INHALATION Q4H PRN PRN #1 inhaler 08/11/20 Apixaban [Eliquis] 10 mg PO UD #60 tablet 08/11/20 The patient was counseled on the following discharge medications and changes in medications for homegoing were reviewed. The Reason for Use, instructions for use, and potential side effects were reviewed for all new medications. The patient's questions regarding all of their medications were answered. The patient was able to verbally demonstrate an understanding of their discharge medications.
--- NOTE | 2020-08-11 13:32 | NURSING ---
Late entry: Student documentation reviewed.
== END 2020-08-11 11:19 | disposition home or self-care (01) | DRG 291 ==
LOC: ED 01:54 → PCU 03:29
PROVIDERS: Admitting Provider Hospitalist; Emergency Provider Emergency Medicine; Visit Provider Student in an Organized Health Care Education/Training Program
DX: I11.0 Hypertensive heart disease with heart failure (principal); I50.31 Acute diastolic (congestive) heart failure; J96.01 Acute respiratory failure with hypoxia; I26.99 Other pulmonary embolism without acute cor pulmonale; I16.1 Hypertensive emergency; E87.6 Hypokalemia; J44.9 Chronic obstructive pulmonary disease, unspecified; R73.9 Hyperglycemia, unspecified; Z20.822 Contact with and (suspected) exposure to COVID-19; M19.90 Unspecified osteoarthritis, unspecified site; F17.210 Nicotine dependence, cigarettes, uncomplicated; Z79.1 Long term (current) use of non-steroidal anti-inflammatories (NSAID)
CPT/HCPCS: 36415; 36600; 71045; 71275; 80048; 82803; 82962; 83036; 83605; 83880; 84484; 85025; 85379; 87040; 87426; 93005; 93306; 94002; 94640; 99285; 99406; J7030; Q9967; A4216; J1940

== ENCOUNTER → 2020-11-03 14:17 | Outpatient (CLI) | payer BC, SELFPAY ==
[2020-10-28 14:03] VITALS: BMI 30.4
[2020-11-03 15:07] LABS: Absolute Lymphocyte Count 2.94 X10^3/uL (0.83-4.51); Absolute Neutrophil Count 4.8 X10^3/uL (2.0-7.7); Basophil# 0.07 X10^3/uL; Basophil% 0.8 % (0-1); Eosinophil# 0.22 X10^3/uL; Eosinophils% 2.5 % (0-5); Hematocrit 40.5 % (37-47); Hemoglobin 12.8 g/dL (12.0-15.0); Lymphocyte # 2.94 X10^3/ul (0.83-4.51); Lymphocyte % 32.9 % (19-41); Mean Corp Hgb Conc 31.6 g/dL (32-36); Mean Corpuscular Hgb 26.4 pg (27.0-32.0); Mean Corpuscular Volume 83.7 fL (81-99); Monocyte# 0.88 X10^3/uL; Monocyte% 9.9 % (0-10); NRBC Flagged by Analyzer 0 % (0-5); Neutrophil % 53.7 % (47-70); Platelet Count 228 K/mm3 (150-450); RBC Distribution Width CV 15.9 % (11.6-14.6); RBC Distribution Width SD 48.9 fl (35.1-43.9); Red Blood Count 4.84 M/mm3 (4.2-5.4); White Blood Count 8.9 K/mm3 (4.4-11.0)
[2020-11-03 15:33] LABS: AST(SGOT) 21 U/L (15-37); Alanine Aminotransfer ALT/SGPT 29 U/L (13-56); Albumin, Serum 3.6 g/dL (3.2-5.0); Alkaline Phosphatase 82 U/L (45-117); Anion Gap 8 (5-15); BUN 13 mg/dL (7-18); Calcium,Total 8.9 mg/dL (8.5-10.1); Chloride 109 mmol/L (98-107); Cholesterol 210 mg/dL (200); Creatinine, Serum 0.68 mg/dL (0.55-1.02); EST Glomerular Filtration Rate 92 mL/min (>60); Est Glom Filt Rate - Afr Amer 111 mL/min (>60); Globulin 3.5 g/dL (2.2-4.2); Glucose 105 mg/dL (74-106); High Density Lipoprotein 36 mg/dL; Potassium 3.4 mmol/L (3.5-5.1); Protein, Total 7.1 g/dL (6.4-8.2); Sodium Level 143 mmol/L (136-145); Thyroid Stim Hormone (TSH) 1.16 uIU/mL (0.358-3.74); Triglycerides 197 mg/dL; Very Low Density Lipoprotein 39 mg/dL (5-40)
== END ==
PROVIDERS: PCP Internal Medicine; Referring Provider Nurse Practitioner Family; Visit Provider Nurse Practitioner Family
DX: I11.0 Hypertensive heart disease with heart failure (principal); I50.9 Heart failure, unspecified; Z72.0 Tobacco use
CPT/HCPCS: 36415; 80053; 80061; 84443; 85025

== ENCOUNTER → 2020-12-02 14:45 | Outpatient (CLI) | payer BC, SELFPAY ==
[2020-12-02 14:08] VITALS: BMI 30.4
[2020-12-02 16:48] LABS: Anion Gap 8 (5-15); BUN 11 mg/dL (7-18); BUN/Creat Ratio 16.1 RATIO (10-20); Chloride 108 mmol/L (98-107); Creatinine, Serum 0.68 mg/dL (0.55-1.02); EST Glomerular Filtration Rate 92 mL/min (>60); Est Glom Filt Rate - Afr Amer 111 mL/min (>60); Glucose 85 mg/dL (74-106); Potassium 3.6 mmol/L (3.5-5.1); Sodium Level 141 mmol/L (136-145)
== END ==
PROVIDERS: PCP Internal Medicine; Referring Provider Internal Medicine; Visit Provider Internal Medicine
DX: I11.0 Hypertensive heart disease with heart failure (principal); I50.9 Heart failure, unspecified
CPT/HCPCS: 36415; 80048

== ENCOUNTER → 2020-12-08 06:31 | Outpatient (CLI) | payer BC, SELFPAY ==
[2020-12-02 14:08] VITALS: BMI 30.4
--- NOTE | 2020-12-08 09:45 | PFTCOMP_ITS ---
COMPLETE PULMONARY FUNCTION TEST INTERPRETATION Brief HPI: Patient is a 65 year old female, currently under the care of Dr. Ackerman, who presents to [facility] for complete pulmonary function tests secondary to diagnosis of dyspnea. Respiratory therapist reports good effort and reproducible results. Interpretation: Forced expiration spirometry shows no large airways obstructive ventilatory defect with an FEV1 of 65% predicted. There is no significant bronchodilator response by strict ATS criteria. Spirograms are of good quality and plateau normally. The respiratory flow volume loop shows a normal pattern. Lung volumes by body plethysmography show a decreased total lung capacity at 3.68 L, 76% predicted. All other lung volumes are reduced symmetrically. Diffusion capacity by carbon monoxide is decreased at 63% predicted. The airway resistance is elevated. No previous pulmonary function tests were available for review. Impression: Mild restrictive ventilatory defect with a symmetric reduction diffusing capacity. Consider chest imaging if not completed previously.
== END ==
PROVIDERS: PCP Internal Medicine; Referring Provider Internal Medicine; Visit Provider Internal Medicine
DX: R06.02 Shortness of breath (principal)
CPT/HCPCS: 94060; 94726; 94729

== ENCOUNTER → 2020-12-29 08:38 | Outpatient (CLI) | payer BC, SELFPAY ==
[2020-12-15 15:18] VITALS: BMI 30.9
[2020-12-29 12:25] LABS: Anion Gap 6 (5-15); BUN 14 mg/dL (7-18); BUN/Creat Ratio 21.5 RATIO (10-20); Chloride 109 mmol/L (98-107); Creatinine, Serum 0.65 mg/dL (0.55-1.02); EST Glomerular Filtration Rate 98 mL/min (>60); Est Glom Filt Rate - Afr Amer 118 mL/min (>60); Glucose 158 mg/dL (74-106); Potassium 3.8 mmol/L (3.5-5.1); Sodium Level 142 mmol/L (136-145)
== END ==
PROVIDERS: PCP Internal Medicine; Referring Provider Nurse Practitioner Family; Visit Provider Nurse Practitioner Family
DX: I10 Essential (primary) hypertension (principal)
CPT/HCPCS: 36415; 80048

== ENCOUNTER → 2021-02-16 08:35 | Outpatient (CLI) | payer BC, SELFPAY ==
[2021-02-16 12:47] LABS: Anion Gap 12 (5-15); BUN 14 mg/dL (7-18); BUN/Creat Ratio 20.3 RATIO (10-20); Chloride 106 mmol/L (98-107); Creatinine, Serum 0.69 mg/dL (0.55-1.02); EST Glomerular Filtration Rate 91 mL/min (>60); Est Glom Filt Rate - Afr Amer 110 mL/min (>60); Glucose 136 mg/dL (74-106); Potassium 3.4 mmol/L (3.5-5.1); Sodium Level 143 mmol/L (136-145)
== END ==
PROVIDERS: PCP Internal Medicine; Referring Provider Nurse Practitioner Family; Visit Provider Nurse Practitioner Family
DX: I10 Essential (primary) hypertension (principal)
CPT/HCPCS: 36415; 80048

== ENCOUNTER 2021-07-30 08:37 | Outpatient (CLI) | payer BC, SELFPAY ==
[2021-07-30 12:14] LABS: Absolute Neutrophil Count 4.7 X10^3/uL (2.0-7.7); Basophil# 0.08 X10^3/uL; Basophil% 1.1 % (0-1); Eosinophil# 0.18 X10^3/uL; Eosinophils% 2.4 % (0-5); Hematocrit 39.9 % (37-47); Hemoglobin 12.6 g/dL (12.0-15.0); Lymphocyte % 25.8 % (19-41); Mean Corp Hgb Conc 31.6 g/dL (32-36); Mean Corpuscular Hgb 26.9 pg (27.0-32.0); Mean Corpuscular Volume 85.1 fL (81-99); Monocyte# 0.53 X10^3/uL; Monocyte% 7.2 % (0-10); NRBC Flagged by Analyzer 0 % (0-5); Neutrophil # 4.65 X10^3/uL (2.7-7.7); Neutrophil % 63.1 % (47-70); Platelet Count 276 K/mm3 (150-450); RBC Distribution Width CV 14.3 % (11.6-14.6); RBC Distribution Width SD 44.1 fl (35.1-43.9); Red Blood Count 4.69 M/mm3 (4.2-5.4); White Blood Count 7.4 K/mm3 (4.4-11.0)
[2021-07-30 12:29] LABS: Vitamin B12 578 pg/mL (211-911)
[2021-07-30 12:41] LABS: Anion Gap 6 (5-15); BUN 11 mg/dL (7-18); BUN/Creat Ratio 15.3 RATIO (10-20); Calcium,Total 9.2 mg/dL (8.5-10.1); Chloride 107 mmol/L (98-107); Cholesterol 198 mg/dL (200); Creatinine, Serum 0.72 mg/dL (0.55-1.02); EST Glomerular Filtration Rate 87 mL/min (>60); Est Glom Filt Rate - Afr Amer 105 mL/min (>60); Ferritin 61 ng/mL (8-252); Glucose 111 mg/dL (74-106); High Density Lipoprotein 39 mg/dL; Magnesium 2.5 mg/dL (1.6-2.6); Potassium 3.5 mmol/L (3.5-5.1); Sodium Level 139 mmol/L (136-145); Triglycerides 131 mg/dL; Very Low Density Lipoprotein 26 mg/dL (5-40)
== END 2021-07-30 23:59 | disposition home or self-care (01) ==
LOC: BIMLAB 08:38
PROVIDERS: PCP Internal Medicine; Referring Provider Physician Assistant; Visit Provider Physician Assistant
DX: R25.2 Cramp and spasm (principal); M79.606 Pain in leg, unspecified; F17.200 Nicotine dependence, unspecified, uncomplicated
CPT/HCPCS: 36415; 80048; 80061; 82607; 82728; 83735; 84443; 85025

== ENCOUNTER 2021-08-13 10:33 | Outpatient (CLI) | payer BC, SELFPAY ==
--- NOTE | 2021-08-13 10:38 | ART_ITS ---
Reason For Study: LLE PAIN Procedure A bilateral lower extremity continuous wave Doppler with analog waveform analysis and ankle brachial indexes. Left Segmental Pressures Left brachial= 144mmHg. Left posterior tibial artery = 151mmHg. Left dorsalis pedis artery = 148mmHg. The left posterior tibial artery waveforms are triphasic. The left dorsalis pedis waveforms are triphasic. Right Segmental Pressures Right brachial= 148mmHg. Right posterior tibial artery = 159mmHg. Right dorsalis pedis artery = 150mmHg. The right posterior tibial artery waveforms are triphasic. The right dorsalis pedis waveforms are triphasic. Indices The right resting ankle brachial index is 1.07. The right ankle brachial index by the posterior tibial artery is 1.07. The right ankle brachial index by the dorsalis pedis is 1.01. The left resting ankle brachial index is 1.02. The left ankle brachial index by the posterior tibial artery is 1.02. The left ankle brachial index by the dorsalis pedis is 1.01. VL/Ankle Brachial Index Interpretation Summary Triphasic Doppler waveforms are noted at ankle level bilaterally. Pulse-volume recordings appear satisfactory at ankle level bilaterally. Resting ankle-brachial indices are nor mal bilaterally. There is no evidence of significant arterial occlusive disease in the lower ext remities bilaterally. Ordering Physician: Rosa Maria Abel Referring Physician: Abdulaziz Ackerman Performed By: Ariadna Valentin, RDCS, RVT
== END 2021-08-13 23:59 | disposition home or self-care (01) ==
PROVIDERS: PCP Internal Medicine; Referring Provider Physician Assistant; Visit Provider Physician Assistant
DX: R25.2 Cramp and spasm (principal); M79.605 Pain in left leg; F17.200 Nicotine dependence, unspecified, uncomplicated
CPT/HCPCS: 93922

== ENCOUNTER → 2021-09-29 | Outpatient (CLI) | payer BC, SELFPAY ==
[2021-09-29 17:00] LABS: Absolute Lymphocyte Count 2.83 X10^3/uL (0.83-4.51); Absolute Neutrophil Count 4.2 X10^3/uL (2.0-7.7); Basophil# 0.06 X10^3/uL; Basophil% 0.8 % (0-1); Eosinophil# 0.18 X10^3/uL; Eosinophils% 2.3 % (0-5); Hematocrit 37.7 % (37-47); Hemoglobin 11.8 g/dL (12.0-15.0); Lymphocyte # 2.83 X10^3/ul (0.83-4.51); Lymphocyte % 35.7 % (19-41); Mean Corp Hgb Conc 31.3 g/dL (32-36); Mean Corpuscular Hgb 26.4 pg (27.0-32.0); Mean Corpuscular Volume 84.3 fL (81-99); Monocyte# 0.68 X10^3/uL; Monocyte% 8.6 % (0-10); NRBC Flagged by Analyzer 0 % (0-5); Neutrophil # 4.15 X10^3/uL (2.7-7.7); Neutrophil % 52.2 % (47-70); Platelet Count 260 K/mm3 (150-450); RBC Distribution Width SD 46.1 fl (35.1-43.9); Red Blood Count 4.47 M/mm3 (4.2-5.4); White Blood Count 7.9 K/mm3 (4.4-11.0)
[2021-09-29 17:21] LABS: ALB/GLOB Ratio 0.9 RATIO (0.9-2.4); AST(SGOT) 20 U/L (15-37); Alanine Aminotransfer ALT/SGPT 27 U/L (13-56); Albumin, Serum 3.4 g/dL (3.2-5.0); Alkaline Phosphatase 84 U/L (45-117); Anion Gap 9 (5-15); BUN 14 mg/dL (7-18); BUN/Creat Ratio 16.7 RATIO (10-20); Chloride 107 mmol/L (98-107); Creatinine, Serum 0.84 mg/dL (0.55-1.02); EST Glomerular Filtration Rate 73 mL/min (>60); Est Glom Filt Rate - Afr Amer 88 mL/min (>60); Globulin 3.7 g/dL (2.2-4.2); Glucose 95 mg/dL (74-106); Potassium 3.1 mmol/L (3.5-5.1); Protein, Total 7.1 g/dL (6.4-8.2); Sodium Level 139 mmol/L (136-145)
== END | disposition home or self-care (01) ==
LOC: BIMLAB 15:34
PROVIDERS: PCP Internal Medicine; Referring Provider Nurse Practitioner Family; Visit Provider Nurse Practitioner Family
DX: Z01.818 Encounter for other preprocedural examination (principal); C43.9 Malignant melanoma of skin, unspecified
CPT/HCPCS: 36415; 80053; 84443; 85025

== ENCOUNTER → 2021-10-04 | Outpatient (CLI) | payer BC, SELFPAY ==
--- NOTE | 2021-10-04 07:27 | EKG12_ITS ---
Test Reason : PRE OP Blood Pressure : / mmHG Vent. Rate : 068 BPM Atrial Rate : 068 BPM P-R Int : 180 ms QRS Dur : 088 ms QT Int : 434 ms P-R-T Axes : 010 084 081 degrees QTc Int : 461 ms Normal sinus rhythm Septal infarct , age undetermined Abnormal ECG Confirmed by HENRIQUE WHITTINGTON, AMBER ([id number]), purchasing expeditor JESSICA ROMO ([id number]) on 10/04/2021 1:32:00 PM Referred By: NEO Confirmed By:AMBER DUENAS MD
--- NOTE | 2021-10-04 07:30 | RAD_ITS ---
STUDY: X-RAY CHEST REASON FOR EXAM: Female, 66 years old. Preoperative evaluation. TECHNIQUE: PA and lateral views of the chest. COMPARISON: Comparison is made with prior study 08/10/2020. FINDINGS: The lungs are clear and expanded. There is no demonstrated pleural abnormality. Normal size heart. Normal mediastinum and kamran. Normal visualized pulmonary arteries. There is atherosclerotic calcification of the aortic arch with tortuosity. Normal visualized thoracic spine. Normal visualized ribs, clavicles, and shoulders. The patient is status post cholecystectomy. RAD/Chest PA and Lateral IMPRESSION: No acute abnormality is seen. Electronically Signed: Ariel Tate MD at 12:57 EDT ,
== END | disposition home or self-care (01) ==
PROVIDERS: PCP Internal Medicine; Visit Provider Nurse Practitioner Family
DX: Z01.818 Encounter for other preprocedural examination (principal); C43.9 Malignant melanoma of skin, unspecified
CPT/HCPCS: 71046; 93005

== ENCOUNTER 2021-12-03 10:42 | Emergency (ER) | payer OTHER, BC, SELFPAY ==
[2021-12-03 10:45] VITALS: BP 176/88; PULSE 71; RESP 18; TEMP 36.9; O2SAT 96; BMI 33.7
--- NOTE | 2021-12-03 10:55 | EX.ED.GENINJ ---
HPI History of Present Illness Chief Complaint: Other, Pain/Inj Detail of Chief Complaint: Facial injury Informant: patient Onset/Context/Timing Onset: Today Narrative Narrative: Patient presents for evaluation after facial injury. She was at work today when an arm on the machine she was working on came down and hit a door. The door closed and hit her in the glasses. Patient denies any injury. Employer wanted her evaluated because she was hit in the head. She does take Eliquis secondary to a history of PE. She did not strike her head or fall backwards against anything. She has no headache or vision change. [facility] Medical History Acute hypoxemic respiratory failure (08/09/20) Arthritis Change in skin mole Chronic pain of left knee Current use of nursing home 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 Elevated troponin (08/09/20) Essential hypertension Flu vaccine need Heart failure with preserved ejection fraction History of pulmonary embolus (PE) (08/10/20) Hyperlipidemia Insomnia Melanoma Nicotine dependence Obesity Osteoarthritis of left knee Preoperative clearance Shortness of breath Tobacco use Wound of left lower extremity Home Medications furosemide 40 mg tablet 40 mg PO DAILY #30 tabs 08/11/20 [Rx Last Taken Unknown] albuterol sulfate 90 mcg/actuation aerosol inhaler 1 - 2 puff inhalation Q4H PRN PRN Sob &/Or Wheezing ##1 10/20/20 [Rx Last Taken Unknown] epinephrine 0.3 mg/0.3 mL injection, auto-injector (EpiPen 2-Yuriy) 0.3 mg (0.3 mL) IM Q5-15M PRN anaphylaxis #2 ea 12/02/20 [Rx Last Taken Unknown] blood pressure monitor (Blood Pressure Kit) #1 ea 02/02/21 [Rx Last Taken Unknown] apixaban 5 mg tablet 5 mg PO BID #60 tabs 09/27/21 [Rx Last Taken Unknown] potassium chloride 20 mEq tablet,extended release 20 meq PO DAILY #90 tabs 10/05/21 [Rx Last Taken Unknown] lisinopril 40 mg tablet 40 mg PO DAILY #30 tabs 11/03/21 [Rx Last Taken Unknown] Allergy/AdvReac Type Severity Reaction Status Date / Time latex Allergy Mild rash Verified 12/03/21 10:48 trazodone Allergy Mild Tingling Verified 12/03/21 10:48 acetaminophen Allergy Hives Verified 12/03/21 10:48 [From Darvocet-N] propoxyphene Allergy Hives Verified 12/03/21 10:48 [From Darvocet-N] Family History Other Anxiety Arthritis Depression Hypertension Thyroid disorder Surgical History H/O elbow surgery H/O tubal ligation History of cholecystectomy Social History Smoking Status: Current every day smoker alcohol intake: never substance use type: does not use what type of physical activity do you participate in: walking frequency: 5-6 times per week ROS ROS ED Constitutional Constitutional ED: Denies chills or fever(s) Eyes Eyes: Denies change in vision or discharge from eye(s) ENT ENT ED: Denies discharge from eye(s), rhinorrhea or sore throat Cardiovascular Cardiovascular: Denies chest pain or palpitations Respiratory/Chest Respiratory/Chest: Denies cough or dyspnea Gastrointestinal Gastrointestinal: Denies abdominal pain, diarrhea, nausea or vomiting Genitourinary Genitourinary ED: Denies difficulty urinating or dysuria Musculoskeletal Musculoskeletal: Denies back pain or extremity pain Integumentary Denies Abrasions or rash Neurologic Neurologic: Denies headache(s) or weakness Psychiatric Psychiatric: Denies anxiety or depression Allergic/Immunologic Allergic/Immunologic ED: Denies lip swelling or urticaria EXAM Physical Exam Const Vital Signs: 12/03/21 10:45 Temperature 98.4 F Temperature Source Oral Pulse Rate 71 Respiratory Rate 18 Blood Pressure 176/88 H Blood Pressure Mean 117 Pulse Ox 96 Oxygen Delivery Method Room Air Positive well nourished and well developed General Appearance ED: well developed HEENT Reports normocephalic and head/scalp atraumatic HEENT Narrative: No facial tenderness. No ecchymosis or edema. No evidence of epistaxis. Extraocular movements are fully intact. Eyes PERRL and EOMs intact bilaterally Neck supple Chest Wall inspection of chest normal and palpation of chest normal Resp normal respiratory effort and clear to auscultation bilaterally Cardio regular rate and regular rhythm GI Palpation: soft Extremity normal to inspection Neuro oriented x3 and no sensory deficits noted Sensorium / Orientation: alert Motor Exam: strength 5/5 throughout Psych mental status grossly normal Skin no rashes or lesions noted [facility] Treatment and Re-Evaluation Narrative: Patient has no external evidence of injury. I do not believe imaging will be beneficial. Patient agrees with this and denies complaint at this time. Discharge Plan Triage Chief Complaint: Other, Pain/Inj ED Provider: Alley Henley Dx/Rx/DC Orders Clinical Impression: Contusion of face Instructions: ED Facial Contusion Prescriptions: No Action albuterol sulfate 90 mcg/actuation HFA aerosol inhaler 1 - 2 puff INHALATION Q4H PRN PRN (Reason: Sob &/Or Wheezing) Qty: 1 1RF epinephrine [EpiPen 2-Yuriy] 0.3 mg/0.3 mL auto-injector 0.3 mg IM Q5-15M PRN (Reason: anaphylaxis) Qty: 2 2RF Rx Instructions: do not exceed 3 doses per episode (DME) blood pressure monitor [Blood Pressure Kit] Kit See Rx Instructions .ROUTE .MEDSUPPLY Qty: 1 0RF Rx Instructions: Check blood pressure daily for hypertension I10 furosemide 40 MG tablet 40 mg PO DAILY Qty: 30 1RF apixaban 5 mg tablet 5 mg PO BID Qty: 60 1RF Rx Instructions: take 2 tablets (10mg) twice daily for 7 days, till 08/17/2020, then continue with 1 tablet (5mg) twice daily for next 6 months potassium chloride 20 mEq tablet extended release 20 meq PO DAILY Qty: 90 1RF lisinopril 40 mg tablet 40 mg PO DAILY Qty: 30 1RF Stand Alone Forms: Work Status Form Primary Care Provider: Abdulaziz Ackerman Referrals: [facility] [GROUP OF PHYSICIANS] - 3-5 Days Abdulaziz Ackerman MD [Primary Care Provider] - Disposition Disposition: Home, Self Care
== END 2021-12-03 11:44 | disposition home or self-care (01) ==
LOC: ED 10:59
PROVIDERS: Emergency Provider Emergency Medicine; PCP Internal Medicine; Visit Provider Emergency Medicine
DX: S00.83XA Contusion of other part of head, initial encounter (principal); I11.0 Hypertensive heart disease with heart failure; I50.9 Heart failure, unspecified; E78.5 Hyperlipidemia, unspecified; W22.09XA Striking against other stationary object, initial encounter; F17.200 Nicotine dependence, unspecified, uncomplicated; E66.9 Obesity, unspecified; M19.90 Unspecified osteoarthritis, unspecified site; Z79.01 Long term (current) use of 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s; Z79.899 Other long term (current) drug therapy
CPT/HCPCS: 99282

== ENCOUNTER → 2022-01-03 | Outpatient (CLI) | payer BC, SELFPAY ==
[2022-01-03 12:15] LABS: Anion Gap 7 (5-15); BUN 11 mg/dL (7-18); Chloride 111 mmol/L (98-107); Creatinine, Serum 0.79 mg/dL (0.55-1.02); EST Glomerular Filtration Rate 78 mL/min (>60); Est Glom Filt Rate - Afr Amer 95 mL/min (>60); Glucose 160 mg/dL (74-106); Potassium 3.4 mmol/L (3.5-5.1); Sodium Level 142 mmol/L (136-145)
[2022-01-03 17:59] LABS: Hemoglobin A1c 5.8 % (3.8-5.6)
== END | disposition home or self-care (01) ==
LOC: BIMLAB 08:34
PROVIDERS: PCP Internal Medicine; Referring Provider Internal Medicine; Visit Provider Internal Medicine
DX: I10 Essential (primary) hypertension (principal); R73.09 Other abnormal glucose
CPT/HCPCS: 36415; 80048; 83036

== ENCOUNTER → 2022-03-21 | Outpatient (CLI) | payer BC, SELFPAY ==
[2022-03-21 12:53] LABS: Anion Gap 8 (5-15); BUN 18 mg/dL (7-18); Calcium,Total 9.6 mg/dL (8.5-10.1); Chloride 106 mmol/L (98-107); Creatinine, Serum 0.82 mg/dL (0.55-1.02); EST Glomerular Filtration Rate 75 mL/min (>60); Est Glom Filt Rate - Afr Amer 90 mL/min (>60); Glucose 108 mg/dL (74-106); Potassium 3.7 mmol/L (3.5-5.1); Sodium Level 139 mmol/L (136-145)
== END | disposition home or self-care (01) ==
LOC: BIMLAB 08:47
PROVIDERS: PCP Internal Medicine; Referring Provider Internal Medicine; Visit Provider Internal Medicine
DX: I10 Essential (primary) hypertension (principal)
CPT/HCPCS: 36415; 80048

== ENCOUNTER → 2022-05-26 | Outpatient (CLI) | payer BC, SELFPAY | END | disposition home or self-care (01) | PROVIDERS: PCP Internal Medicine; Referring Provider Physician Assistant; Visit Provider Physician Assistant | DX: R05.9 Cough, unspecified (principal); Z20.828 Contact with and (suspected) exposure to other viral communicable diseases; Z20.822 Contact with and (suspected) exposure to COVID-19 | CPT/HCPCS: 87635; U0003; U0005 ==

== ENCOUNTER → 2022-07-29 | Outpatient (CLI) | payer BC, SELFPAY ==
[2022-07-29 12:23] LABS: Absolute Lymphocyte Count 2.49 X10^3/uL (0.83-4.51); Basophil# 0.04 X10^3/uL; Basophil% 0.4 % (0-1); Eosinophil# 0.08 X10^3/uL; Eosinophils% 0.8 % (0-5); Hematocrit 39.4 % (37-47); Hemoglobin 12.2 g/dL (12.0-15.0); Lymphocyte # 2.49 X10^3/ul (0.83-4.51); Mean Corpuscular Hgb 26.6 pg (27.0-32.0); Mean Corpuscular Volume 85.8 fL (81-99); Mean Platelet Vol. 11.5 fl (6.2-12.0); Monocyte# 0.73 X10^3/uL; NRBC Flagged by Analyzer 0 % (0-5); Neutrophil # 7.01 X10^3/uL (2.7-7.7); Neutrophil % 67.4 % (47-70); Platelet Count 249 K/mm3 (150-450); RBC Distribution Width CV 15.6 % (11.6-14.6); RBC Distribution Width SD 48.9 fl (35.1-43.9); Red Blood Count 4.59 M/mm3 (4.2-5.4); White Blood Count 10.4 K/mm3 (4.4-11.0)
[2022-07-29 13:02] LABS: Hemoglobin A1c 5.7 % (3.8-5.6)
[2022-07-29 13:04] LABS: ALB/GLOB Ratio 0.7 RATIO (0.9-2.4); AST(SGOT) 15 U/L (15-37); Alanine Aminotransfer ALT/SGPT 30 U/L (13-56); Albumin, Serum 3.1 g/dL (3.2-5.0); Alkaline Phosphatase 113 U/L (45-117); Anion Gap 7 (5-15); BUN 11 mg/dL (7-18); BUN/Creat Ratio 17.2 RATIO (10-20); Calcium,Total 9.1 mg/dL (8.5-10.1); Chloride 107 mmol/L (98-107); Cholesterol 168 mg/dL (200); Creatinine, Serum 0.64 mg/dL (0.55-1.02); EST Glomerular Filtration Rate 99 mL/min (>60); Est Glom Filt Rate - Afr Amer 120 mL/min (>60); Globulin 4.2 g/dL (2.2-4.2); Glucose 111 mg/dL (74-106); High Density Lipoprotein 37 mg/dL; Potassium 3.4 mmol/L (3.5-5.1); Protein, Total 7.3 g/dL (6.4-8.2); Sodium Level 141 mmol/L (136-145); Triglycerides 96 mg/dL; Very Low Density Lipoprotein 19 mg/dL (5-40)
== END | disposition home or self-care (01) ==
LOC: BIMLAB 08:43
PROVIDERS: PCP Internal Medicine; Referring Provider Internal Medicine; Visit Provider Internal Medicine
DX: I10 Essential (primary) hypertension (principal); E78.5 Hyperlipidemia, unspecified
CPT/HCPCS: 36415; 80053; 80061; 83036; 85025

== ENCOUNTER 2022-11-17 07:30 | Observation (INO) | payer OTHER, MEDICARE, SELFPAY ==
[2022-11-17] VITALS (8 sets, daily range): BP systolic 123–160; BP diastolic 42–100; PULSE 65–76; RESP 14–21; TEMP 36.4–36.7; O2SAT 95–99; BMI 30.4; BMI 31.0
--- NOTE | 2022-11-17 07:39 | RAD_ITS ---
STUDY: X-RAY - LEFT KNEE REASON FOR EXAM: Female, 67 years old. Chronic knee pain. TECHNIQUE: 4 view(s) of the knee. COMPARISON: Comparison is made with prior study dated October 28, 2020. FINDINGS: Degenerative spur formation along the medial femoral condyle. Degenerative spur formation along the medial tibial plateau. Normal proximal tibiofibular articulation. There is severe degenerative arthrosis of the medial femorotibial compartment with severe joint space narrowing. Normal lateral femorotibial compartment. There is moderate degenerative arthrosis of the patellofemoral articulation. Tiny joint effusion. RAD/Knee 4 or More Views IMPRESSION: Degenerative arthrosis. Stable examination. Tiny joint effusion. Electronically Signed: Ariel Tate MD at 8:33 EDT ,
--- NOTE | 2022-11-17 07:39 | RAD_ITS ---
STUDY: X-RAY CHEST REASON FOR EXAM: Female, 67 years old. chest pain TECHNIQUE: PA and lateral views of the chest. COMPARISON: Comparison is made with prior study dated October 04, 2021. FINDINGS: EKG electrodes are seen. The lungs are clear and expanded. There is no demonstrated pleural abnormality. There is borderline cardiomegaly. Normal mediastinum and kamran. Normal visualized pulmonary arteries. There is atherosclerotic calcification of the aortic arch with tortuosity. There are diffuse degenerative changes of the visualized thoracic spine. Normal visualized ribs, clavicles, and shoulders. Surgical clips are seen in the right upper quadrant. RAD/Chest PA and Lateral IMPRESSION: Borderline cardiomegaly. The lungs are clear. Electronically Signed: Ariel Tate MD at 8:34 EDT ,
--- NOTE | 2022-11-17 07:39 | EKG12_ITS ---
Test Reason : CP Blood Pressure : / mmHG Vent. Rate : 086 BPM Atrial Rate : 000 BPM P-R Int : 000 ms QRS Dur : 080 ms QT Int : 358 ms P-R-T Axes : 000 093 053 degrees QTc Int : 428 ms Atrial fibrillation Rightward axis Septal infarct , age undetermined Abnormal ECG Confirmed by HENRIQUE WHITTINGTON, AMBER ([id number]), assistant production editor JESSICA ROMO ([id number]) on 11/21/2022 12:49:38 PM Referred By: TL Confirmed By:AMBER DUENAS MD
--- NOTE | 2022-11-17 07:40 | ED.VIS.CHEST ---
HPI History of Present Illness Chief Complaint: Chest Pain Informant: patient Narrative Narrative: Presents intermittent pain in her chest for last 3 days. Reports dyspnea. Symptoms do worsen with exertion improved with rest. She states 3 days ago her pain was a lot more significant. Denies cough. Denies radicular pain. She also states she has been having ongoing left knee pain. She works on her feet. She has had x-rays years ago and her knee states osteoarthritis. This morning pain worse both in the left knee and her chest lasting 15 minutes and sweating therefore she came to the emergency department. Prediabetic, hypertension, hyperlipidemia tobacco history. Denies family history of MIs at young age. Patient history of PE 2020, she states she still been on Eliquis since then twice a day with no missed doses. She states that was her first clot. Denies nausea or vomiting. Chest pain-free currently. Stress test years ago no history of heart cath no history of PR. 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 Elevated random blood glucose level Elevated troponin (08/09/20) Essential hypertension Flu vaccine need GERD (gastroesophageal reflux disease) Heart failure with preserved ejection fraction History of pulmonary embolus (PE) (08/10/20) Hyperlipidemia Insomnia Melanoma Menopausal disorder Nicotine dependence Non-ST elevation PR (NSTEMI) Obesity Osteoarthritis of left knee Preoperative clearance Shortness of breath Tobacco use Wound of left lower extremity Home Medications epinephrine 0.3 mg/0.3 mL injection, auto-injector (EpiPen 2-Yuriy) 0.3 mg (0.3 mL) IM Q5-15M PRN anaphylaxis #2 ea 01/03/22 [Rx Last Taken Unknown] albuterol sulfate 90 mcg/actuation aerosol inhaler 1 - 2 puff inhalation Q4H PRN PRN Sob &/Or Wheezing ##1 01/07/22 [Rx Last Taken 11/12/22] apixaban 5 mg tablet 5 mg PO BID 3 months #180 tabs 07/20/22 [Rx Last Taken 11/17/22] lisinopril 40 mg tablet 40 mg PO DAILY #90 tabs 07/20/22 [Rx Last Taken 11/16/22] furosemide 40 mg tablet 40 mg PO SUSA PRN FLUID 09/28/22 [History Last Taken 11/15/22] omeprazole 40 mg capsule,delayed release 40 mg PO DAILY PRN GERD 09/28/22 [History Last Taken 10/27/22] potassium chloride 20 mEq tablet,extended release 20 meq PO DAILY SUPPLEMENT 09/28/22 [History Last Taken 11/16/22] Allergy/AdvReac Type Severity Reaction Status Date / Time latex Allergy Mild rash Verified 11/17/22 07:36 trazodone Allergy Mild Tingling Verified 11/17/22 07:36 propoxyphene Allergy Hives Verified 11/17/22 07:36 [From Darvocet-N] acetaminophen AdvReac Intermediate Nausea/Vom/ Verified 11/17/22 11:38 [From Darvocet-N] Diarrhea Family History Other Anxiety Arthritis Depression Hypertension Thyroid disorder Surgical History H/O elbow surgery H/O tubal ligation History of cholecystectomy Social History (Updated 11/17/22 @ 10:24 by Samina aGrcia) housing: house Smoking Status: Current every day smoker tobacco type: cigarettes alcohol intake: never substance use type: does not use what type of physical activity do you participate in: walking frequency: 5-6 times per week ROS ROS ED Constitutional Constitutional ED: Denies chills, fever(s) or sweats Eyes Eyes: Denies change in vision ENT ENT ED: Denies dysphagia or sore throat Cardiovascular Cardiovascular: Reports chest pain; Denies leg edema, palpitations or racing heartbeat Respiratory/Chest Respiratory/Chest: Reports dyspnea; Denies cough or dyspnea on exertion Gastrointestinal Gastrointestinal: Denies abdominal pain, diarrhea, nausea or vomiting Genitourinary Genitourinary ED: Denies dysuria, hematuria or urinary frequency Musculoskeletal Musculoskeletal: Reports extremity pain and other Details: Left knee pain ; Denies back pain or neck pain Integumentary Denies rash or wounds Neurologic Neurologic: Denies headache(s), paresthesias or weakness EXAM Physical Exam Const Vital Signs: 11/17/22 07:31 11/17/22 07:43 11/17/22 08:43 Temperature 97.6 F L Temperature Source Temporal Pulse Rate 74 72 Respiratory Rate 20 H 21 H Blood Pressure 149/71 H 149/100 H Blood Pressure Mean 97 116 Pulse Ox 97 95 Oxygen Delivery Method Room Air Room Air Room Air Positive well nourished and well developed General Appearance ED: well developed and NAD HEENT Reports moist mucous membranes normocephalic and atraumatic Eyes PERRL, EOMs intact bilaterally and conjunctivae normal General Eye ED: Yes normal appearance of both eyes Neck no lymphadenopathy and supple General: Negative for tenderness Chest Wall Chest: Negative for tenderness Resp normal respiratory effort and normal air movement Effort and Inspection: symmetric chest movement; Negative for respiratory distress Cardio regular rate, regular rhythm and no murmurs Peripheral Pulses: pulses 2+ throughout GI normal to inspection, nondistended, normoactive bowel sounds and non-tender Palpation: Negative for guarding or rebound tenderness present Back/Spine no CVA tenderness and no thoracic nor lumbar tenderness Extremity Extremity Narrative: Left lower extremity: No hip pain. Knee without swelling. Knee extensor mechanism intact. Positive Orta's with valgus stress. Pulses intact distally. General Extremety ED: Negative for edema or tenderness General Extremity: Negative for edema Neuro oriented x3 and no sensory deficits noted Sensorium / Orientation: awake and alert Skin no rashes or lesions noted and no wounds Heart Score History: Highly Suspicious ECG: Normal Age: >/= 65 years Risk Factors: >/= 3 Risk Factors or History of CAD Troponin: >1 - <3 Normal Limit Score: 7 MDM MDM MDM Narrative Medical decision making narrative: Interventions / MDM: Differential diagnosis: Chest pain, ACS, left knee arthritis Diagnosis considered but do not suspect: Pulmonary embolism however patient's chronic 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s with no missed doses. No clinical pneumonia. My EKG interpretation: Patient with runs of atrial flutter 2-1 and 3-1 to sinus rhythm on EKG. Old EKG from September 2021 with a sinus rhythm. Imaging independently reviewed and interpreted by myself: 2 view chest x-ray: No acute process 4 view left knee: Degenerative changes worsening medial aspect. External documents reviewed: Echocardiogram from July 2020, stage II diastolic dysfunction with ejection fraction 60%. Also noted there is an EKG from her hospital visit she had a run of A-fib RVR documented EKG. This was thought to be secondary to the PE. Test considered but not ordered:N/A ED course: Patient presenting with transient chest pain. No active pain on evaluation. EKG notes 2-1 and 3-1 atrial flutter to sinus rhythm. On the quality assurance monitor final intermittent similar findings. She does not have any symptoms of palpitations or lightheaded symptoms. Heart rate at times will go up to 124. She denies any cardiac dysrhythmia history. She is currently on Eliquis. Cardiac work-up with added TSH and magnesium sent to the lab. Left knee x-ray also obtained. [id number] score is a 5. Troponin returns at 198 creatinine 0.84 potassium 3.2. Hemoglobin 12.9. Platelets 259. Two-view chest x-ray interpreted by myself shows no acute process. Left knee significant osteoarthritis more in the medial aspect. She was covered with aspirin, oral potassium replacement. She took her Eliquis this morning. 0830: I spoke with air conditioning coil assembler Dr. Munoz, updated on patient's history and findings and concerns. Patient on Eliquis plans for hold Eliquis today and catheterization in the morning. Will speak with hospitalist service for admission. I spoke with Dr. Clark for admission to PCU. Re-evaluation: stable Disposition discussed with patient/family/significant other: Patient Case discussed with consulting clinician: Cardiology, Dr. Munoz, hospitalist This note was generated with [employer] dictation software. It may contain incorrect words, spelling, and punctuation that were not noted in checking the note before signing. Lab Data Attestation: I reviewed the patient's lab results. Labs: Laboratory Results - last 24 hr 11/17/22 07:48 WBC 8.6 RBC 4.75 Hgb 12.9 Hct 41.0 MCV 86.3 MCH 27.2 MCHC 31.5 L RDW Std Deviation 52.2 H RDW Coeff of Ele 16.5 H Plt Count 259 MPV 10.3 Immature Gran % (Auto) 0.600 Neut % (Auto) 67.7 Lymph % (Auto) 22.9 [place] % (Auto) 6.3 Eos % (Auto) 1.6 Baso % (Auto) 0.9 Absolute Neuts (auto) 5.8 Absolute Lymphs (auto) 1.97 Nucleated RBC % 0 Sodium 139 Potassium 3.2 L Chloride 109 H Carbon Dioxide 22.0 Anion Gap 8 BUN 16 Creatinine 0.84 Estim Creat Clear Calc 57.66 Est GFR (MDRD) Af Amer 87 Est GFR (MDRD) Non-Af 72 BUN/Creatinine Ratio 19.0 Glucose 140 H Calcium 8.8 Magnesium 2.1 Troponin I High Sens 198 H* TSH 1.03 Radiography Diagnostic Testing: Clinical Impression(s) from Imaging Studies Chest X-Ray 11/17/22 07:39 IMPRESSION: Borderline cardiomegaly. The lungs are clear. Electronically Signed: Ariel Tate MD at 8:34 EDT , Knee X-Ray 11/17/22 07:39 IMPRESSION: Degenerative arthrosis. Stable examination. Tiny joint effusion. Electronically Signed: Ariel Tate MD at 8:33 EDT , Critical Care Time Critical Care Time: Yes Critical care time (excluding procedures): 30-74 minutes, Discussing w/Patient &/or Family/Maintenance Instructor, Discussing w/Consultants, Arranging Admission or Transfer, Performing Direct Patient Care at Bedside and - (35 minutes) Discharge Plan Dx/Rx/DC Orders Clinical Impression: Atrial flutter, Non-ST elevation PR (NSTEMI), Chest pain, Tobacco use, Acute hypokalemia, History of pulmonary embolus (PE), Current use of correction 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, Angina of effort Disposition Disposition: Acute Care Hospital [facility] Discharge Date/Time: 11/17/22 09:41
[2022-11-17 07:59] LABS: Absolute Lymphocyte Count 1.97 X10^3/uL (0.83-4.51); Absolute Neutrophil Count 5.8 X10^3/uL (2.0-7.7); Basophil# 0.08 X10^3/uL; Basophil% 0.9 % (0-1); Eosinophil# 0.14 X10^3/uL; Eosinophils% 1.6 % (0-5); Hemoglobin 12.9 g/dL (12.0-15.0); Lymphocyte # 1.97 X10^3/ul (0.83-4.51); Lymphocyte % 22.9 % (19-41); Mean Corp Hgb Conc 31.5 g/dL (32-36); Mean Corpuscular Hgb 27.2 pg (27.0-32.0); Mean Corpuscular Volume 86.3 fL (81-99); Mean Platelet Vol. 10.3 fl (6.2-12.0); Monocyte# 0.54 X10^3/uL; Monocyte% 6.3 % (0-10); NRBC Flagged by Analyzer 0 % (0-5); Neutrophil # 5.83 X10^3/uL (2.7-7.7); Neutrophil % 67.7 % (47-70); Platelet Count 259 K/mm3 (150-450); RBC Distribution Width CV 16.5 % (11.6-14.6); RBC Distribution Width SD 52.2 fl (35.1-43.9); Red Blood Count 4.75 M/mm3 (4.2-5.4); White Blood Count 8.6 K/mm3 (4.4-11.0)
[2022-11-17 08:20] LABS: Anion Gap 8 (5-15); BUN 16 mg/dL (7-18); Calcium,Total 8.8 mg/dL (8.5-10.1); Chloride 109 mmol/L (98-107); Creatinine, Serum 0.84 mg/dL (0.55-1.02); EST Glomerular Filtration Rate 72 mL/min (>60); Est Glom Filt Rate - Afr Amer 87 mL/min (>60); Estimated Creatinine Clearance 57.66 ml/min; Glucose 140 mg/dL (74-106); Magnesium 2.1 mg/dL (1.6-2.6); Potassium 3.2 mmol/L (3.5-5.1); Sodium Level 139 mmol/L (136-145); Thyroid Stim Hormone (TSH) 1.03 uIU/mL (0.358-3.74); Troponin-I HS (w/2H Reflex) 198 pg/mL (3.0-54.0)
[2022-11-17] MEDS: Aspirin 81 MG TAB.CHEW 324 MG PO (08:42)
[2022-11-17] MEDS: Potassium Chloride Oral Tablet 20 MEQ 40 MEQ PO (08:42)
--- NOTE | 2022-11-17 09:00 | HP.PCM.HOS_ITS ---
HPI - General General Date of Admission: 11/17/22 Date of Service: 11/17/22 Chief Complaint: Chest pain off and on x2 days HPI Narrative ANDREIA ELAINE, is a 67 F who presents to the ER at [facility] for evaluation of chest discomfort which she describes as a squeezing sensation in the middle of her chest, its been occurring off and on for the past 2 to 3 days, seems to be worse on exertion, she had an episode this morning while she was at work. Patient does not have a history of coronary artery disease, she is on 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 for a past history of PE. Patient also complains of left knee pain and stiffness. Patient denies any radiation of the chest discomfort into her neck or down her arm, she states she feels slightly sweaty during the episodes. The episodes last a few minutes and then they subside. Work-up in the emergency room revealed her troponin to be elevated, EKG showed a normal sinus rhythm with periods of atrial flutter-patient denies any history of cardiac arrhythmias in the past. Patient's chest x-ray showed cardiomegaly, cardiology was contacted and advised admitting the patient and holding her Eliquis, her last dose of Eliquis was today. Patient is not currently having any chest pain at the time my examination. Patient is a smoker, she does take hypertensive medications but denies taking cholesterol medications. Patient's left knee x-ray showed severe degenerative changes in the knee in the medial aspect. Patient will be placed in observation status on PCU for non-STEMI and unstable angina. [facility] Medical History (Updated 11/17/22 @ 09:[address] Jimmy Clark, DO) Acute hypoxemic respiratory failure (08/09/20) Acute low back pain Anxiety and depression Arthritis Borderline type 2 diabetes mellitus Change in skin mole Chronic pain of left knee Current use of jail 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 Elevated random blood glucose level Elevated troponin (08/09/20) Essential hypertension Flu vaccine need GERD (gastroesophageal reflux disease) Heart failure with preserved ejection fraction History of pulmonary embolus (PE) (08/10/20) Hyperlipidemia Insomnia Melanoma Menopausal disorder Nicotine dependence Non-ST elevation MS (NSTEMI) Obesity Osteoarthritis of left knee Preoperative clearance Shortness of breath Tobacco use Wound of left lower extremity Home Medications epinephrine 0.3 mg/0.3 mL injection, auto-injector (EpiPen 2-Yuriy) 0.3 mg (0.3 mL) IM Q5-15M PRN anaphylaxis #2 ea 01/03/22 [Rx Last Taken Unknown] albuterol sulfate 90 mcg/actuation aerosol inhaler 1 - 2 puff inhalation Q4H PRN PRN Sob &/Or Wheezing ##1 01/07/22 [Rx Last Taken Unknown] cyclobenzaprine 10 mg tablet 5 - 10 mg (0.5 - 1 x 10 mg) PO TID PRN muscle spasm #30 tabs 03/23/22 [Rx Last Taken Unknown] amlodipine 10 mg tablet 10 mg PO DAILY #90 tabs 07/20/22 [Rx Last Taken Unknown] apixaban 5 mg tablet 5 mg PO BID 3 months #180 tabs 07/20/22 [Rx Last Taken Unknown] lisinopril 40 mg tablet 40 mg PO DAILY #90 tabs 07/20/22 [Rx Last Taken Unknown] clotrimazole-betamethasone 1 %-0.05 % topical cream 1 applic topical BID 2 weeks #45 grams 09/28/22 [Rx Last Taken Unknown] furosemide 40 mg tablet 40 mg PO .MONDAY AND Monday09/28/22 [History Last Taken Unknown] omeprazole 40 mg capsule,delayed release 40 mg PO DAILY 09/28/22 [History Last Taken Unknown] potassium chloride 20 mEq tablet,extended release 20 meq PO BID 09/28/22 [History Last Taken Unknown] prednisone 10 mg tablet See Rx Instructions PO QDAY #30 tabs 09/28/22 [Rx Last Taken Unknown] Allergy/AdvReac Type Severity Reaction Status Date / Time latex Allergy Mild rash Verified 11/17/22 07:36 trazodone Allergy Mild Tingling Verified 11/17/22 07:36 acetaminophen Allergy Hives Verified 11/17/22 07:36 [From Darvocet-N] propoxyphene Allergy Hives Verified 11/17/22 07:36 [From Darvocet-N] Family History Other Anxiety Arthritis Depression Hypertension Thyroid disorder Surgical History H/O elbow surgery H/O tubal ligation History of cholecystectomy Social History Smoking Status: Current every day smoker tobacco type: cigarettes alcohol intake: never substance use type: does not use what type of physical activity do you participate in: walking frequency: 5-6 times per week ROS Constitutional Constitutional: Denies anorexia, change in weight, fever(s), night sweats or weakness Eyes Eyes: Denies blurry vision, change in vision, discharge from eye(s) or eye pain Cardiovascular Cardiovascular: Reports chest pain; Denies claudication, edema, palpitations, paroxysmal nocturnal dyspnea, rapid heart rate or syncope Respiratory/Chest Respiratory/Chest: Denies cough, hemoptysis, shortness of breath at rest or shortness of breath with exertion Gastrointestinal Gastrointestinal: Denies abdominal pain, constipation, diarrhea, hematemesis, hematochezia, melena, nausea or vomiting Genitourinary Genitourinary: Denies dysuria, hematuria, urinary frequency, urinary hesitancy, urinary incontinence or urinary urgency Musculoskeletal Musculoskeletal: Reports arthralgias and other Details: Patient complains of right knee pain which is chronic in nature ; Denies back pain, joint pain, joint stiffness, joint swelling, myalgias or neck pain Neurologic Neurologic: Denies abnormal gait, abnormal speech, dizziness, focal weakness, headache(s), loss of vision, numbness, other visual disturbances, paresthesias, syncope or tingling Psychiatric Psychiatric: Denies anxiety, cognitive impairment, depression, irritability, mood swings or suicidal ideation Endocrine Endocrinology: Denies change in body appearance, cold intolerance, excessive sweating, heat intolerance, polydipsia or polyuria Hematologic/Lymphatic Hematologic/Lymphatic: Denies none, anemia, easy bleeding, easy bruising or lymphadenopathy Allergic/Immunologic Allergic/Immunologic: Denies rhinitis, urticaria, eczemia or asthma Vital Signs Vital Signs Vital Signs: 11/17/22 07:31 11/17/22 07:43 11/17/22 08:43 Temperature 97.6 F L Temperature Source Temporal Pulse Rate 74 72 Respiratory Rate 20 H 21 H Blood Pressure 149/71 H 149/100 H Blood Pressure Mean 97 116 Pulse Ox 97 95 Oxygen Delivery Method Room Air Room Air Room Air Weight Weight: 80.4 kg Body Mass Index (BMI) 30.4 Physical Exam Const alert, oriented x3, no apparent distress, average body habitus and healthy appearing General Appearance: cooperative, well kempt and well developed Orientation / Consciousness: awake, oriented to person, oriented to place and oriented to time HEENT normocephalic, head/scalp atraumatic, hearing grossly normal bilaterally and moist oral mucous membranes Eyes PERRL, EOMs intact bilaterally and conjunctivae normal Neck supple, no JVD, thyroid normal and no carotid bruits General: trachea midline Resp normal respiratory effort, no retractions, no use of accessory muscles and clear to auscultation bilaterally Auscultation: Negative for rales, rhonchi or wheezes Cardio regular rate, regular rhythm, S1 normal heart sound, S2 normal heart sound, no murmurs, no rub and no gallops GI normal to inspection, nondistended, normoactive bowel sounds, soft to palpation, non-tender and non-distended Extremity normal to inspection and no clubbing, cyanosis or edema Extremity Narrative: There is no sign of effusion on examination of the left knee, left knee appears slightly larger than the right knee Skin no rashes or lesions noted General Skin Exam: no breakdown Neuro oriented x3, CN's II-XII intact bilaterally, moves all extremities, no focal m otor deficits and no sensory deficits noted Sensorium / Orientation: awake, alert, oriented to person, oriented to place and oriented to time Speech: speech normal Psych affect normal Results Lab / Micro Data 11/17/22 07:48 11/17/22 07:48 Labs: Laboratory Results - last 24 hr 11/17/22 07:48: WBC 8.6, RBC 4.75, Hgb 12.9, Hct 41.0, MCV 86.3, MCH 27.2, MCHC 31.5 L, RDW Std Deviation 52.2 H, RDW Coeff of Ele 16.5 H, Plt Count 259, MPV 10.3, Immature Gran % (Auto) 0.600, Neut % (Auto) 67.7, Lymph % (Auto) 22.9, Benzie % (Auto) 6.3, Eos % (Auto) 1.6, Baso % (Auto) 0.9, Absolute Neuts (auto) 5.8, Absolute Lymphs (auto) 1.97, Nucleated RBC % 0, Sodium 139, Potassium 3.2 L , Chloride 109 H, Carbon Dioxide 22.0, Anion Gap 8, BUN 16, Creatinine 0.84, Estim Creat Clear Calc 57.66, Est GFR (MDRD) Af Amer 87, Est GFR (MDRD) Non-Af 72, BUN/Creatinine Ratio 19.0, Glucose 140 H, Calcium 8.8, Magnesium 2.1, Troponin I High Sens 198 H*, TSH 1.03 Radiology Impression Chest X-Ray 11/17/22 07:39 IMPRESSION: Borderline cardiomegaly. The lungs are clear. Electronically Signed: Ariel Tate MD at 8:34 EDT , Knee X-Ray 11/17/22 07:39 IMPRESSION: Degenerative arthrosis. Stable examination. Tiny joint effusion. Electronically Signed: Ariel Tate MD at 8:33 EDT , Assessment & Plan Assessment/Plan (1) Non-ST elevation MS (NSTEMI): PLAN: Plan 1. [id number] will be placed in observation status on MedSurg 3, I will add a beta-latisha and a statin as well as a baby aspirin to her regimen, she will be seen in consultation by cardiology, her Eliquis will be held, patient will undergo cardiac catheterization tomorrow #2 unstable angina-again patient's medications will be adjusted, she will be monitored #3 left knee pain secondary to severe arthritis-I have elected to give the patient a one-time dose of prednisone, she will need follow-up as an outpatient regarding her knee issues. #4 chronic use of 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 due to past history of PE-patient's Eliquis will be held #5 essential hypertension-patient will remain on her outpatient meds #6 hypokalemia-patient will be given potassium orally Total clinical time spent by myself addressing the patient's medical issues, reviewing all of her data, and collaborating with patient's care team: 55 minutes Charges/Coding Visit Charges Inpatient E&M: 36017 Init Hosp L2
--- NOTE | 2022-11-17 09:25 | ECHOD_ITS ---
Reason For Study: S/P RI, NSTEMI Procedure This was a 2D Doppler, Color Flow transthoracic echocardiogram. Exam performed portable in patient room. Left Ventricle Normal LV size. Mild concentric left ventricular hypertrophy. Mild segmental systolic dysfunction (see wall motion). Left ventricular systolic function is normal. The estimated ejection fraction is 55 %. Stage 2 diastolic dysfunction. No regional wall motion abnormalities noted. Right Ventricle Normal RV size. Normal systolic function. Atria The left atrium is moderately enlarged. The right atrium is mildly enlarged. Mitral Valve There is moderate mitral annular calcification. Mild (1+) eccentric mitral valve insufficiency. Tricuspid Valve Normal tricuspid valve. Mild to moderate (1-2+) tricuspid valve insufficiency. Pulmonary artery systolic pressure is 50 mmHg. Aortic Valve Trisinus/trileaflet aortic valve. Mild (1+) aortic valve insufficiency. Pulmonic Valve Normal pulmonic valve. Great Vessels Mildly dilated aortic root. Dilated descending aorta. Normal inferior vena cava. Pericardium/Pleural No pericardial effusion. MMode/2D Measurements & Calculations LVIDd: 4.5 cm IVSd: 1.4 cm Ao root diam: 4.1 cm LVIDs: 3.0 cm LVPWd: 1.4 cm RVDd: 3.7 cm FS: 32.8 % LAV(MOD-bp): 92.6 ml LVAd ap4: 30.7 cm2 LVAd ap2: 31.9 cm2 LAV(MOD-bp) Indexed: 49.9 ml/m2 LVLd ap4: 8.2 cm LVLd ap2: 8.4 cm LAV(MOD-sp2): 69.6 ml EDV(MOD-sp4): 95.2 ml EDV(MOD-sp2): 102.9 ml LAV(MOD-sp4): 111.7 ml EDV(sp4-el): 97.0 ml EDV(sp2-el): 103.3 ml LVAs ap4: 17.9 cm2 LVAs ap2: 20.1 cm2 LVLs ap4: 7.4 cm LVLs ap2: 7.7 cm ESV(MOD-sp4): 39.1 ml ESV(MOD-sp2): 46.0 ml ESV(sp4-el): 36.7 ml ESV(sp2-el): 44.5 ml EF(MOD-sp4): 58.9 % EF(MOD-sp2): 55.3 % EF(sp4-el): 62.2 % SV(MOD-sp4): 56.1 ml SV(MOD-sp2): 57.0 ml SV(sp4-el): 60.3 ml LA dimension(2D): 4.6 cm LA A4 area: 30.2 cm2 RA A4 area: 23.2 cm2 TAPSE: 2.0 cm Time Measurements MV dec time: 0.22 sec Doppler Measurements & Calculations MV E max sonido: 141.8 cm/sec Lat Peak E' Sonido: 3.9 cm/sec Med Peak E' Sonido: 4.2 cm/sec MV A max sonido: 74.6 cm/sec E/E' lat: 36.1 E/E' med: 34.1 MV E/A: 1.9 MV V2 max: 174.5 cm/sec MV P1/2t max sonido: 171.4 cm/sec Ao V2 max: 156.9 cm/sec MV max P.2 mmHg MV P1/2t: 76.2 msec Ao max P.8 mmHg MV V2 mean: 89.1 cm/sec MV dec slope: 659.1 cm/sec2 MV mean P.8 mmHg MV V2 VTI: 37.4 cm MVA(P1/2t): 2.9 cm2 AI max sonido: 383.1 cm/sec LV V1 max: 109.6 cm/sec TR max sonido: 332.7 cm/sec AI max P.7 mmHg LV V1 max P.8 mmHg TR max P.3 mmHg AI dec slope: 237.8 cm/sec2 AI P1/2t: 471.8 msec ECHO/Echo Complete Interpretation Summary Normal LV size. Mild concentric left ventricular hypertrophy. Mild to moderate (1-2+) tricuspid valve insufficiency. Mildly dilated aortic root. Dilated descending aorta. The estimated ejection fraction is 55 %. Left ventricular systolic function is normal. Stage 2 diastolic dysfunction. Ordering Physician: Jimmy Clark Referring Physician: Abdulaziz Ackerman Performed By: Sona Kirk RDCS
[2022-11-17 09:53] LABS: Reflex Troponin-HS? (from REC) Y
[2022-11-17 11:07] LABS: Cholesterol 187 mg/dL (200); High Density Lipoprotein 39 mg/dL; Triglycerides 152 mg/dL; Troponin-I HS 206 pg/mL (3.0-54.0); Very Low Density Lipoprotein 30 mg/dL (5-40)
[2022-11-17] MEDS: predniSONE 20 MG Tablet 40 MG PO (11:17)
[2022-11-17] MEDS: amLODIPine 10 MG Tablet PO (11:17)
[2022-11-17] MEDS: Pantoprazole Sodium 40 MG Tablet PO (11:17)
[2022-11-17] MEDS: Metoprolol Tartrate 25 MG Tablet 12.5 MG PO ×2 (11:18→22:01)
[2022-11-17] MEDS: Lisinopril 40 MG Tablet PO (11:18)
--- NOTE | 2022-11-17 11:32 | EKG12_ITS ---
Test Reason : CP ADMISSION Blood Pressure : / mmHG Vent. Rate : 063 BPM Atrial Rate : 063 BPM P-R Int : 214 ms QRS Dur : 074 ms QT Int : 442 ms P-R-T Axes : 041 090 079 degrees QTc Int : 452 ms Sinus rhythm with 1st degree A-V block with Premature atrial complexes Rightward axis Septal infarct , age undetermined Abnormal ECG When compared with ECG of 17-NOV-2022 07:44, MANUAL COMPARISON REQUIRED, DATA IS UNCONFIRMED Confirmed by HENRIQUE WHITTINGTON, AMBER ([id number]), metropolitan editor JESSICA ROMO ([id number]) on 11/21/2022 12:59:40 PM Referred By: Confirmed By:AMBER DUENAS MD
--- NOTE | 2022-11-17 11:54 | CT_ITS ---
STUDY: CTA ABDOMEN AND PELVIS WITH CONTRAST REASON FOR EXAM: Female, 67 years old. Possible aneurysm. 3. A history of chest discomfort. RADIATION DOSAGE (If Supplied By Facility): CTDIvol = ( 34.71 ) mGy, DLP = ( 952.99 ) mGycm TECHNIQUE: Transaxial images were obtained from the dome of the diaphragm to the symphysis pubis without oral contrast. IV 100mL Isovue-370 was administered. Sagittal and coronal images were reconstructed. Individualized dose optimization techniques were used for this CT. COMPARISON: None. FINDINGS: The visualized lung bases are unremarkable. The visualized portions of the heart are within normal limits. There is decreased attenuation of the liver consistent with steatosis. There are surgical clips in the gallbladder fossa consistent with a prior cholecystectomy. Normal spleen. Normal pancreas. There is symmetric enlargement of the adrenal glands suggesting adrenal hyperplasia. Possible small bilateral adrenal adenomas. There is a 2 cm x 1.3 cm rounded enhancing mass in the slightly upper medial aspect of the right kidney. A neoplastic process should be ruled out. Normal left kidney. Normal visualized stomach. Normal small intestine. There are multiple colonic diverticula consistent with diverticulosis. The appendix is visualized and appears normal. There is diffuse atherosclerotic calcification of the abdominal aorta, without a demonstrated aneurysm. There is evidence of ectasia and tortuosity of the distal thoracic aorta and proximal abdominal aorta with a transverse dimension of 5.1 cm. Plaque calcification at the origin of the celiac artery and superior mesenteric artery. Normal inferior vena cava. Normal retroperitoneum. Normal urinary bladder. Normal abdominal wall. There are diffuse degenerative changes of the visualized lumbar spine. CT/CTA Abd/Pelvis W/WO Contrast IMPRESSION: Tortuosity and dilatation at the junction of the thoracic and proximal abdominal aorta. Infrarenal abdominal aorta shows evidence of atherosclerotic changes. Bilateral adrenal hyperplasia and possible small bilateral adrenal adenomas. Sigmoid diverticulosis. 2 cm x 1.3 cm enhancing mass in the mid medial portion of the right kidney as described. A neoplastic process should be ruled out. Electronically Signed: Ariel Tate MD at 13:04 EDT ,
[2022-11-17 15:05] LABS: Troponin-I HS 193 pg/mL (3.0-54.0)
--- NOTE | 2022-11-17 18:26 | PCM.CONS.C ---
Assessment & Plan Assessment/Plan (1) Non-ST elevation [place] (NSTEMI): PLAN: Patient has a non-ST elevation myocardial infarction. We will proceed with a left heart catheterization in a.m. (2) Atrial flutter: PLAN: Patient appears to have had paroxysms of atrial fibrillation flutter. We will continue with 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 after procedure is performed. (3) Essential hypertension: PLAN: Patient has a history of hypertension and the plan is to continue the lisinopril at 40 mg a day. (4) Abdominal aneurysm: PLAN: Patient has tortuosity and dilatation of the abdominal aorta measuring 5.1 cm. We will review with the radiologist as to whether this is just ectasia or whether this is aneurysmal. Thank you for allowing me to participate in the care of your patient. Please don't hesitate to call if any issues arise. HPI Consult Data Date of Consult: 11/18/22 HPI Narrative HPI Narrative: ANDREIA ELAINE, is a 67 F who presents to the emergency room with chest discomfort. She describes this as a squeezing sensation in the middle of her chest. She does have a previous history of pulmonary embolism. She was seen in the emergency room because she was having more of these episodes which seem to be worse with exertion and going away with rest. She does not have a previous history of coronary artery disease. She had been on Eliquis in the past. In the emergency room she was also noted to be having paroxysms of atrial fibrillation. She was admitted to the hospital was noted to have mild troponin elevation and echocardiogram was performed which demonstrated segmental wall motion abnormalities noted. She was also incidentally noted to have an abdominal aortic aneurysm. [facility] Medical History Acute hypoxemic respiratory failure (08/09/20) Acute low back pain Anxiety and depression Arthritis Borderline type 2 diabetes mellitus Change in skin mole Chronic pain of left knee Current use of buttermaker 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 Elevated random blood glucose level Elevated troponin (08/09/20) Essential hypertension Flu vaccine need GERD (gastroesophageal reflux disease) Heart failure with preserved ejection fraction History of pulmonary embolus (PE) (08/10/20) Hyperlipidemia Insomnia Melanoma Menopausal disorder Nicotine dependence Non-ST elevation [place] (NSTEMI) Obesity Osteoarthritis of left knee Preoperative clearance Shortness of breath Tobacco use Wound of left lower extremity Home Medications epinephrine 0.3 mg/0.3 mL injection, auto-injector (EpiPen 2-Yuriy) 0.3 mg (0.3 mL) IM Q5-15M PRN anaphylaxis #2 ea 01/03/22 [Rx Last Taken Unknown] albuterol sulfate 90 mcg/actuation aerosol inhaler 1 - 2 puff inhalation Q4H PRN PRN Sob &/Or Wheezing ##1 01/07/22 [Rx Last Taken 11/12/22] apixaban 5 mg tablet 5 mg PO BID 3 months #180 tabs 07/20/22 [Rx Last Taken 11/17/22] lisinopril 40 mg tablet 40 mg PO DAILY #90 tabs 07/20/22 [Rx Last Taken 11/16/22] furosemide 40 mg tablet 40 mg PO SUSA PRN FLUID 09/28/22 [History Last Taken 11/15/22] omeprazole 40 mg capsule,delayed release 40 mg PO DAILY PRN GERD 09/28/22 [History Last Taken 10/27/22] potassium chloride 20 mEq tablet,extended release 20 meq PO DAILY SUPPLEMENT 09/28/22 [History Last Taken 11/16/22] Allergy/AdvReac Type Severity Reaction Status Date / Time latex Allergy Mild rash Verified 11/17/22 07:36 trazodone Allergy Mild Tingling Verified 11/17/22 07:36 propoxyphene Allergy Hives Verified 11/17/22 07:36 [From Darvocet-N] acetaminophen AdvReac Intermediate Nausea/Vom/ Verified 11/17/22 11:38 [From Darvocet-N] Diarrhea Family History Other Anxiety Arthritis Depression Hypertension Thyroid disorder Surgical History H/O elbow surgery H/O tubal ligation History of cholecystectomy Social History housing: house Smoking Status: Current every day smoker tobacco type: cigarettes alcohol intake: never substance use type: does not use what type of physical activity do you participate in: walking frequency: 5-6 times per week ROS Constitutional Constitutional: Denies anorexia, change in weight, fever(s), night sweats or weakness Eyes Eyes: Denies blurry vision, change in vision, discharge from eye(s) or eye pain Cardiovascular Cardiovascular: Reports chest pain; Denies claudication, edema, palpitations, paroxysmal nocturnal dyspnea, rapid heart rate or syncope Respiratory/Chest Respiratory/Chest: Reports chest tightness, dyspnea on exertion and hemoptysis; Denies cough, shortness of breath at rest or shortness of breath with exertion Gastrointestinal Gastrointestinal: Denies abdominal pain, constipation, diarrhea, hematemesis, hematochezia, melena, nausea or vomiting Genitourinary Genitourinary: Denies dysuria, hematuria, urinary frequency, urinary hesitancy, urinary incontinence or urinary urgency Musculoskeletal Musculoskeletal: Reports arthralgias and other Details: Patient complains of right knee pain which is chronic in nature ; Denies back pain, joint pain, joint stiffness, joint swelling, myalgias or neck pain Neurologic Neurologic: Denies abnormal gait, abnormal speech, dizziness, focal weakness, headache(s), loss of vision, numbness, other visual disturbances, paresthesias, syncope or tingling Psychiatric Psychiatric: Denies anxiety, cognitive impairment, depression, irritability, mood swings or suicidal ideation Endocrine Endocrinology: Denies change in body appearance, cold intolerance, excessive sweating, heat intolerance, polydipsia or polyuria Hematologic/Lymphatic Hematologic/Lymphatic: Denies none, anemia, easy bleeding, easy bruising or lymphadenopathy Allergic/Immunologic Allergic/Immunologic: Denies rhinitis, urticaria, eczemia or asthma Risk Stratification Risk Stratification Applicable: Yes Age >/= 65: Yes >/= 3 CAD Risk Factors (HTN, HLD, DM, family hx of CAD, or current smoker): Yes Aspirin Use in the Past 7 Days: No Severe Angina (>/= episodes in 24 hours): Yes EKG ST Changes >/= 0.5mm: No Positive Cardiac Marker: Yes CONCHA Risk Stratification Score: 4 CONCHA % Risk: 20% Risk Objective Data Vital Signs: Vital Signs Temp Pulse Resp BP Pulse Ox O2 Del Method 98.1 F 65 14 133/42 H 98 Room Air 11/17/22 16:16 11/17/22 16:16 11/17/22 16:16 11/17/22 16:16 11/17/22 16:16 11/17/22 16:30 Oxygen Delivery Method Room Air Weight: 180 lb 15.992 oz Body Mass Index (BMI) 31.0 Intake & Output: Intake and Output for Last 24 Hours 11/15/22 11/16/22 11/17/22 23:59 23:59 23:59 Intake Total 1130 / 1130 Balance 1130 / 1130 Lab / Micro Data 11/17/22 07:48 11/18/22 05:37 Labs: Laboratory Results - last 24 hr 11/17/22 07:48: WBC 8.6, RBC 4.75, Hgb 12.9, Hct 41.0, MCV 86.3, MCH 27.2, MCHC 31.5 L, RDW Std Deviation 52.2 H, RDW Coeff of Ele 16.5 H, Plt Count 259, MPV 10.3, Immature Gran % (Auto) 0.600, Neut % (Auto) 67.7, Lymph % (Auto) 22.9, Thomas % (Auto) 6.3, Eos % (Auto) 1.6, Baso % (Auto) 0.9, Absolute Neuts (auto) 5.8, Absolute Lymphs (auto) 1.97, Nucleated RBC % 0, Sodium 139, Potassium 3.2 L, Chloride 109 H, Carbon Dioxide 22.0, Anion Gap 8, BUN 16, Creatinine 0.84, Estim Creat Clear Calc 57.66, Est GFR (MDRD) Af Amer 87, Est GFR (MDRD) Non-Af 72, BUN/Creatinine Ratio 19.0, Glucose 140 H, Calcium 8.8, Magnesium 2.1, Troponin I High Sens 198 H*, TSH 1.03 11/17/22 10:16: Troponin I High Sens 206 H*, Triglycerides 152, Cholesterol 187, LDL Cholesterol 118, VLDL Cholesterol 30, HDL Cholesterol 39 L 11/17/22 14:37: Troponin I High Sens 193 H* Cardiology Labs/Tests 11/17/22 07:48: WBC 8.6, RBC 4.75, Hgb 12.9, Hct 41.0, MCV 86.3, MCH 27.2, MCHC 31.5 L, Plt Count 259, MPV 10.3, Immature Gran % (Auto) 0.600, Neut % (Auto) 67.7, Lymph % (Auto) 22.9, Thomas % (Auto) 6.3, Eos % (Auto) 1.6, Baso % (Auto) 0.9, Absolute Neuts (auto) 5.8, Nucleated RBC % 0, Sodium 139, Potassium 3.2 L, Chloride 109 H, Carbon Dioxide 22.0, Anion Gap 8, BUN 16, Creatinine 0.84, Est GFR (MDRD) Af Amer 87, Est GFR (MDRD) Non-Af 72, BUN/Creatinine Ratio 19.0, Glucose 140 H, Calcium 8.8, Magnesium 2.1 11/17/22 10:16: Triglycerides 152, Cholesterol 187, LDL Cholesterol 118, VLDL Cholesterol 30, HDL Cholesterol 39 L Rhythm: EKG: ECHO: Stress Test: Cardiac Cath: PCI: CT Surgery: Holter monitor: EPS: PPM: CXR: Chest CT Scan: Radiography Diagnostic Testing: Radiology Impression Chest X-Ray 11/17/22 07:39 IMPRESSION: Borderline cardiomegaly. The lungs are clear. Electronically Signed: Ariel Tate MD at 8:34 EDT , Knee X-Ray 11/17/22 07:39 IMPRESSION: Degenerative arthrosis. Stable examination. Tiny joint effusion. Electronically Signed: Ariel Tate MD at 8:33 EDT , Echocardiogram 11/17/22 09:25 Interpretation Summary Normal LV size. Mild concentric left ventricular hypertrophy. Mild to moderate (1-2+) tricuspid valve insufficiency. Mildly dilated aortic root. Dilated descending aorta. The estimated ejection fraction is 55 %. Left ventricular systolic function is normal. Stage 2 diastolic dysfunction. Ordering Physician: Jimmy Clark Referring Physician: Abdulaziz Ackerman Performed By: Sona Kirk, PRANEETH Abdomen/Pelvis CTA 11/17/22 11:54 IMPRESSION: Tortuosity and dilatation at the junction of the thoracic and proximal abdominal aorta. Infrarenal abdominal aorta shows evidence of atherosclerotic changes. Bilateral adrenal hyperplasia and possible small bilateral adrenal adenomas. Sigmoid diverticulosis. 2 cm x 1.3 cm enhancing mass in the mid medial portion of the right kidney as described. A neoplastic process should be ruled out. Electronically Signed: Ariel Tate MD at 13:04 EDT ,
[2022-11-17] MEDS: Atorvastatin Calcium 40 MG Tablet PO (22:01)
[2022-11-18] VITALS (12 sets, daily range): BP systolic 114–152; BP diastolic 52–93; PULSE 50–72; RESP 14–23; TEMP 35.9–37.1; O2SAT 94–98
--- NOTE | 2022-11-18 05:55 | EKG12_ITS ---
Test Reason : PRE-OP Blood Pressure : / mmHG Vent. Rate : 070 BPM Atrial Rate : 070 BPM P-R Int : 204 ms QRS Dur : 088 ms QT Int : 452 ms P-R-T Axes : 045 092 075 degrees QTc Int : 488 ms Normal sinus rhythm Rightward axis Septal infarct , age undetermined Abnormal ECG When compared with ECG of 17-NOV-2022 11:14, MANUAL COMPARISON REQUIRED, DATA IS UNCONFIRMED Confirmed by HENRIQUE WHITTINGTON, AMBER ([id number]), editor book JESSICA ROMO ([id number]) on 11/21/2022 1:02:02 PM Referred By: Confirmed By:AMBER DUENAS MD
[2022-11-18 07:24] LABS: Anion Gap 7 (5-15); BUN 16 mg/dL (7-18); BUN/Creat Ratio 25.2 RATIO (10-20); Calcium,Total 8.7 mg/dL (8.5-10.1); Chloride 108 mmol/L (98-107); Creatinine, Serum 0.64 mg/dL (0.55-1.02); EST Glomerular Filtration Rate 100 mL/min (>60); Est Glom Filt Rate - Afr Amer 121 mL/min (>60); Estimated Creatinine Clearance 75.68 ml/min; Glucose 92 mg/dL (74-106); Potassium 2.9 mmol/L (3.5-5.1); Sodium Level 141 mmol/L (136-145)
[2022-11-18] MEDS: Potassium Chloride Oral Tablet 20 MEQ 40 MEQ PO (08:34)
[2022-11-18] MEDS: Aspirin 81 MG TAB.CHEW PO (08:34)
[2022-11-18] MEDS: Pantoprazole Sodium 40 MG Tablet PO (08:34)
[2022-11-18] MEDS: Lisinopril 40 MG Tablet PO (08:35)
[2022-11-18] MEDS: amLODIPine 10 MG Tablet PO (08:35)
[2022-11-18] MEDS: Metoprolol Tartrate 25 MG Tablet 12.5 MG PO (08:35)
[2022-11-18] MEDS: 0.9% Normal Saline 1,000 ML 15 ML IV (08:39)
--- NOTE | 2022-11-18 09:51 | CL.D_ITS ---
Patient Name: ANDREIA ELAINE Study Date: 11/18/2022 Performing: Jamal Munoz MD Ht: 64 inches 162.56 cm : 1955 Wt: 181 lbs 82.1 kg Age: 67 Gender: female BSA: 1.87 PROCEDURE(S) PERFORMED [id number])LHC/COR/LV CLINICAL PROFILE AND INDICATIONS Indications: Suspected CAD Heart Failure: None Stress/Imaging Stress/Image Study Performed: No CAD Presentations: Unstable angina. CONCLUSIONS Non obstructive coronary arteries Normal LV size, wall motion,and systolic function RECOMMENDATIONS Medical therapy DESCRIPTION OF PROCEDURE The patient arrived to the procedure lab. The risks and benefits of the procedure as well as a full description of our services here and current unavailability of surgical backup were fully explained to the patient and/or their significant other prior to the catheterization. The Timeout was completed, verifying the correct patient and procedure. The patient's procedural site was prepped and draped in the usual fashion. Local anesthetic was given subcutaneously to left radial region with Lidocaine 2%. Using a modified Seldinger technique, arterial access was obtained via the right radial artery, a 6Fr sheath was inserted. Right Coronary Artery selective angiography was then performed in multiple views using a 5 Fr. 4.0 Leola catheter. Left Coronary Artery selective angiography was performed in multiple views using a 5 Fr. 4.0 Leola catheter. Left Ventriculography was performed in GRACIA projection using a 5 Fr. Pigtail catheter. LV to AO pullback pressures were then recorded.The arterial sheath was pulled and a TR Band was applied for hemostasis. 12cc of air CORONARY ANGIOGRAPHY DOMINANCE: Right Dominant LEFT HEART ASSESSMENT Left Ventricular Ejection Fraction: by LV Gram 60 % Normal LV wall motion Normal Left Ventricular systolic function LEFT MAIN: Angiographically normal LEFT ANTERIOR DESCENDING ARTERY: No significant disease noted CIRCUMFLEX ARTERY: Mild luminal irregularities RIGHT CORONARY ARTERY: Mild luminal irregularities COMPLICATIONS No Complications PROCEDURE MEDICATIONS Fentanyl 50 mcg IV Versed 2 mg IV Versed 1 mg IV Oxygen: 2 L/min via nasal cannula Heparin given IA 11/18/2022 09:10:18 Verapamil 2.5mg, Ntg 100mcgs, 3000 units of Heparin given IA 11/18/2022 09:10:18 SUMMARY OF HEMODYNAMIC DATA Time AIR REST ECG 08:58:27 AO 154/68 (103) SA 09:30:48 LV 134/4, 14 09:36:25 LV 136/8, 13 09:36:34 LV 162/14, 29 09:37:03 LVp 154/40, 66 09:37:10 AOp 149/68 (102) 09:37:17 Signed By Jamal Munoz MD On 11/18/2022 09:50:45 Jamal Munoz MD
--- NOTE | 2022-11-18 09:52 | PCM.PN.CARD ---
Subjective Subjective Patient seen and eval noted. Underwent cardiac catheterization today. Objective Data Vital Signs: Vital Signs Temp Pulse Resp BP Pulse Ox O2 Del Method 97 F L 67 16 151/80 H 98 Room Air 11/18/22 08:32 11/18/22 08:35 11/18/22 08:32 11/18/22 08:35 11/18/22 08:32 11/18/22 08:49 Oxygen Delivery Method Room Air Weight: 180 lb 15.992 oz Body Mass Index (BMI) 31.0 Intake & Output: Intake and Output for Last 24 Hours 11/16/22 11/17/22 11/18/22 23:59 23:59 23:59 Intake Total 1370 / 1370 0.25 / 0.25 Balance 1370 / 1370 0.25 / 0.25 Lab / Micro Data 11/17/22 07:48 11/18/22 05:37 Labs: Laboratory Results - last 24 hr 11/17/22 10:16: Troponin I High Sens 206 H*, Triglycerides 152, Cholesterol 187, LDL Cholesterol 118, VLDL Cholesterol 30, HDL Cholesterol 39 L 11/17/22 14:37: Troponin I High Sens 193 H* 11/18/22 05:37: Sodium 141, Potassium 2.9 L, Chloride 108 H, Carbon Dioxide 26.0, Anion Gap 7, BUN 16, Creatinine 0.64, Estim Creat Clear Calc 75.68, Est GFR (MDRD) Af Amer 121, Est GFR (MDRD) Non-Af 100, BUN/Creatinine Ratio 25.2 H, Glucose 92, Calcium 8.7 Cardiology Labs/Tests 11/17/22 10:16: Triglycerides 152, Cholesterol 187, LDL Cholesterol 118, VLDL Cholesterol 30, HDL Cholesterol 39 L 11/18/22 05:37: Sodium 141, Potassium 2.9 L, Chloride 108 H, Carbon Dioxide 26.0, Anion Gap 7, BUN 16, Creatinine 0.64, Est GFR (MDRD) Af Amer 121, Est GFR (MDRD) Non-Af 100, BUN/Creatinine Ratio 25.2 H, Glucose 92, Calcium 8.7 Rhythm: EKG: ECHO: Stress Test: Cardiac Cath: PCI: CT Surgery: Holter monitor: EPS: PPM: CXR: Chest CT Scan: Radiography Diagnostic Testing: Radiology Impression Echocardiogram 11/17/22 09:25 Interpretation Summary Normal LV size. Mild concentric left ventricular hypertrophy. Mild to moderate (1-2+) tricuspid valve insufficiency. Mildly dilated aortic root. Dilated descending aorta. The estimated ejection fraction is 55 %. Left ventricular systolic function is normal. Stage 2 diastolic dysfunction. Ordering Physician: Jimmy Clark Referring Physician: Abdulaziz Ackerman Performed By: Sona Kirk RDCS Abdomen/Pelvis CTA 11/17/22 11:54 IMPRESSION: Tortuosity and dilatation at the junction of the thoracic and proximal abdominal aorta. Infrarenal abdominal aorta shows evidence of atherosclerotic changes. Bilateral adrenal hyperplasia and possible small bilateral adrenal adenomas. Sigmoid diverticulosis. 2 cm x 1.3 cm enhancing mass in the mid medial portion of the right kidney as described. A neoplastic process should be ruled out. Electronically Signed: Ariel Tate MD at 13:04 EDT , Physical Exam Const alert, oriented x3, no apparent distress, average body habitus and healthy appearing General Appearance: cooperative, well kempt and well developed Orientation / Consciousness: awake, oriented to person, oriented to place and oriented to time HEENT normocephalic, head/scalp atraumatic, hearing grossly normal bilaterally and moist oral mucous membranes Eyes PERRL, EOMs intact bilaterally and conjunctivae normal Neck supple, no JVD, thyroid normal and no carotid bruits General: trachea midline Resp normal respiratory effort, no retractions, no use of accessory muscles and clear to auscultation bilaterally Auscultation: Negative for rales, rhonchi or wheezes Cardio regular rate, regular rhythm, S1 normal heart sound, S2 normal heart sound, no murmurs, no rub and no gallops GI normal to inspection, nondistended, normoactive bowel sounds, soft to palpation, non-tender and non-distended Extremity normal to inspection and no clubbing, cyanosis or edema Extremity Narrative: There is no sign of effusion on examination of the left knee, left knee appears slightly larger than the right knee Skin no rashes or lesions noted General Skin Exam: no breakdown Neuro oriented x3, CN's II-XII intact bilaterally, moves all extremities, no focal motor deficits and no sensory deficits noted Sensorium / Orientation: awake, alert, oriented to person, oriented to place and oriented to time Speech: speech normal Psych affect normal Assessment & Plan Assessment/Plan (1) Non-ST elevation [place] (NSTEMI): PLAN: Patient has a non-ST elevation myocardial infarction. Cardiac catheterization today demonstrated nonobstructive coronary anatomy with preserved ejection fraction. (2) Atrial flutter: QUALIFIERS: Atrial flutter type: typical Qualified Code(s): I48.3 - Typical atrial flutter PLAN: Patient appears to have had paroxysms of atrial fibrillation flutter. We will continue with 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 after procedure is performed. (3) Essential hypertension: PLAN: Patient has a history of hypertension and the plan is to continue the lisinopril at 40 mg a day. (4) Abdominal aneurysm: PLAN: Patient has tortuosity and dilatation of the abdominal aorta measuring 5.1 cm. We will review with the radiologist as to whether this is just ectasia or whether this is aneurysmal. Thank you for allowing me to participate in the care of your patient. Please don't hesitate to call if any issues arise.
[2022-11-18] MEDS: oxyCODONE 5 MG Tablet PO (10:45)
[2022-11-18] MEDS: Potassium Chloride 10mEq/100mL 10 MEQ/100 ML IV.SOLN. 100 MEQ IV BOLUS ×2 (11:23→12:23)
--- NOTE | 2022-11-18 11:32 | DCINST_ITS ---
Discharge Instructions Diet Discharge Diet: No restrictions Activity Discharge Activity: Return to Normal Activity Return to work on:: 11/23/22 Weight Bearing Status: Full weight bearing Follow Up Care Test Results: Test results from this visit will be discussed in further detail at your follow- up appointment, if applicable. Discharge Plan Admission Admit Date/Time: 11/17/22 08:49 Primary Reason for Your Visit: Type II non-STEMI Attending Provider: Jimmy Clark Primary Care Provider: Abdulaziz Ackerman Consulting Providers: Jamal Munoz; Tucker Dodson Discharge Orders/Prescriptions Prescriptions: New amlodipine 10 mg Tablet 10 mg PO DAILY Qty: 0 0RF atorvastatin [Lipitor] 10 mg tablet 10 mg PO DAILY Qty: 30 0RF Continued epinephrine [EpiPen 2-Yuriy] 0.3 mg/0.3 mL auto-injector 0.3 mg IM Q5-15M PRN (Reason: anaphylaxis) Qty: 2 2RF Rx Instructions: do not exceed 3 doses per episode furosemide 40 mg tablet 40 mg PO SUSA PRN (Reason: FLUID) Patient Comments: pt only takes on weekends omeprazole 40 mg capsule,delayed release(DR/EC) 40 mg PO DAILY PRN (Reason: GERD) Patient Comments: PT STATES ONLY TAKES NEEDED Rx Instructions: Take 30 minutes before breakfast potassium chloride 20 mEq tablet extended release 20 meq PO DAILY albuterol sulfate 90 mcg/actuation HFA aerosol inhaler 1 - 2 puff INHALATION Q4H PRN PRN (Reason: Sob &/Or Wheezing) Qty: 1 1RF apixaban 5 mg tablet 5 mg PO BID 90 Days Qty: 180 1RF lisinopril 40 mg tablet 40 mg PO DAILY Qty: 90 2RF Referrals / Follow Up: Abdulaziz Ackerman MD [Primary Care Provider] - Within 2 Weeks Tucker Dodson MD [Med Staff - Active Staff] - See Referral Note (as directed) Disposition Disposition (needs filled in before D/C Order can be placed): Home, Self Care
--- NOTE | 2022-11-18 11:45 | PCM.DC.SUM ---
Providers Date of Admission: 11/17/22 Date of Discharge: 11/18/22 Primary Care Physician: Dr. Abdulaziz Ackerman MD Consultations 11/17/22 09:45 Consult: Cardiology Routine Consulting Provider: Jamal Munoz Reason for Consult: nstemi EMERGENT Consult: No Notified: Yes Date Notified: 11/17/22 Time Notified: 09:22 Method of Notification: Verbal Method of Consult:: In-Person 11/18/22 08:37 Consult: Vascular Surgery Routine Consulting Provider: Tucker Dodson Reason for Consult: aneurysm EMERGENT Consult: No Notified: Yes Date Notified: 11/18/22 Time Notified: 08:37 Method of Notification: Verbal Reason For Visit: NSTEMI, ATRIAL FLUTTER Diagnosis Discharge Diagnosis (1) Non-ST elevation [place] (NSTEMI): Status: Acute Code(s): I21.4 - Non-ST elevation (NSTEMI) myocardial infarction (2) Atrial flutter: Status: Acute Code(s): I48.92 - Unspecified atrial flutter Qualifiers: Atrial flutter type: typical Qualified Code(s): I48.3 - Typical atrial flutter (3) Essential hypertension: Status: Chronic Code(s): I10 - Essential (primary) hypertension (4) Abdominal aneurysm: Status: Acute Code(s): I71.40 - Abdominal aortic aneurysm, without rupture, unspecified Plan 1. [id number] will be placed in observation status on MedSurg 3, I will add a beta-bre and a statin as well as a baby aspirin to her regimen, she will be seen in consultation by cardiology, her Eliquis will be held, patient will undergo cardiac catheterization tomorrow #2 unstable angina-again patient's medications will be adjusted, she will be monitored #3 left knee pain secondary to severe arthritis-I have elected to give the patient a one-time dose of prednisone, she will need follow-up as an outpatient regarding her knee issues. #4 chronic use of 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 due to past history of PE-patient's Eliquis will be held #5 essential hypertension-patient will remain on her outpatient meds #6 hypokalemia-patient will be given potassium orally #7 abdominal aortic aneurysm-patient will follow-up with vascular surgery after discharge #8 mild pulmonary hypertension Total clinical time spent by myself addressing the patient's medical issues, reviewing all of her data, and collaborating with patient's care team: 55 minutes Medications at Discharge Home Medications epinephrine 0.3 mg/0.3 mL injection, auto-injector (EpiPen 2-Yuriy) 0.3 mg (0.3 mL) IM Q5-15M PRN anaphylaxis #2 ea 01/03/22 albuterol sulfate 90 mcg/actuation aerosol inhaler 1 - 2 puff inhalation Q4H PRN PRN Sob &/Or Wheezing ##1 01/07/22 apixaban 5 mg tablet 5 mg PO BID 3 months #180 tabs 07/20/22 lisinopril 40 mg tablet 40 mg PO DAILY #90 tabs 07/20/22 furosemide 40 mg tablet 40 mg PO SUSA PRN FLUID 09/28/22 omeprazole 40 mg capsule,delayed release 40 mg PO DAILY PRN GERD 09/28/22 potassium chloride 20 mEq tablet,extended release 20 meq PO DAILY SUPPLEMENT 09/28/22 amlodipine 10 mg tablet 10 mg PO DAILY #0 tabs 11/18/22 atorvastatin 10 mg tablet (Lipitor) 10 mg PO DAILY #30 tabs 11/18/22 Hospital Course Operations None Procedures 2-D Echocardiogram and Cardiac catheterization Summary of Care Provided Minutes Spent on Discharge: 32 Hospital Course: This 67-year-old white female was seen in the emergency room at [facility] with chief complaint of precordial chest pain, work-up in the emergency room included EKG which showed no evidence of acute ischemic changes, patient's cardiac enzymes were elevated, chest x-ray did not show any acute process. Patient was placed in observation status on PCU, she was seen in consultation by cardiology, her Eliquis was held, and she underwent an echocardiogram which showed a normal EF and mild pulmonary hypertension, and there was evidence of an aortic aneurysm. Patient underwent a CT of her abdomen which showed a 5.1 cm aortic aneurysm, vascular surgery was consulted for follow-up care as an outpatient. Patient's cardiac enzymes were cycled and they remained elevated, she had no episodes of chest pain during her hospitalization. Patient underwent a cardiac catheterization which showed mild intraluminal irregularities but no occlusive coronary disease. On 11/18/2022, patient was seen and examined: On examination she appeared in good health and spirits, she does not appear to be in any distress. Vital signs as documented. Skin warm and dry and without overt rashes. Neck without JVD, thyroid appears normal, trachea is midline, neck is supple. Lungs clear, normal air movement was noted. Heart exam notable for regular rhythm, normal sounds and absence of murmurs, rubs or gallops. Abdomen unremarkable and without evidence of organomegaly, masses, or abdominal aortic enlargement, bowel sounds are present in all 4 quadrants, no abdominal tenderness was noted. Extremities nonedematous, no cyanosis was noted, no clubbing was noted. Neuro: Cranial nerves II through XII are grossly intact, no focal motor deficits were noted, sensation to light touch and pinprick is intact, motor exam 5/5 throughout. Psych: Patient is alert and oriented x3, she does not appear anxious or depressed, she does not appear agitated. Patient appears stable for discharge on 11/18/2022. Weight / BMI Weight Weight: 82.1 kg Body Mass Index (BMI) 31.0 ABG / Lab / Microbiology Data 11/17/22 07:48 11/18/22 05:37 Laboratory: Laboratory Results - last 24 hr 11/17/22 14:37: Troponin I High Sens 193 H* 11/18/22 05:37: Sodium 141, Potassium 2.9 L, Chloride 108 H, Carbon Dioxide 26.0, Anion Gap 7, BUN 16, Creatinine 0.64, Estim Creat Clear Calc 75.68, Est GFR (MDRD) Af Amer 121, Est GFR (MDRD) Non-Af 100, BUN/Creatinine Ratio 25.2 H, Glucose 92, Calcium 8.7 Radiography Diagnostic Testing: Radiology Impression Echocardiogram 11/17/22 09:25 Interpretation Summary Normal LV size. Mild concentric left ventricular hypertrophy. Mild to moderate (1-2+) tricuspid valve insufficiency. Mildly dilated aortic root. Dilated descending aorta. The estimated ejection fraction is 55 %. Left ventricular systolic function is normal. Stage 2 diastolic dysfunction. Ordering Physician: Jimmy Clark Referring Physician: Abdulaziz Ackerman Performed By: Sona Kirk RDCS Abdomen/Pelvis CTA 11/17/22 11:54 IMPRESSION: Tortuosity and dilatation at the junction of the thoracic and proximal abdominal aorta. Infrarenal abdominal aorta shows evidence of atherosclerotic changes. Bilateral adrenal hyperplasia and possible small bilateral adrenal adenomas. Sigmoid diverticulosis. 2 cm x 1.3 cm enhancing mass in the mid medial portion of the right kidney as described. A neoplastic process should be ruled out. Electronically Signed: Ariel Tate MD at 13:04 EDT , D/C Instructions Discharge Diet: No restrictions Return to work on: 11/23/22 Weight Bearing Status: Full weight bearing Meaningful Use Info Meaningful Use Diagnoses (Choose all that apply): AMI AMI/Post PCI/Angioplasty Aspirin given w/in 24hrs of arrival?: Yes ASA at discharge?: No Reason ASA not ordered:: Drug Interaction Antiplatelet Therapy at Discharge:: No Reason Antiplatelet Therapy not ordered:: Patient on Eliquis, not needed Statins at discharge?: Yes Tony/ARB at discharge?: Yes Beta Bre at discharge?: No Reason Beta Bre not ordered:: Allergy (Not indicated) Done w/ Acute [place] measure.: Yes Documented LVEF (%): 55 Discharge Plan Admission Admit Date/Time: 11/17/22 08:49 Primary Reason for Your Visit: Type II non-STEMI Attending Provider: Jimmy Clark Primary Care Provider: Abdulaziz Ackerman Consulting Providers: Jamal Munoz; Tucker Dodson Discharge Orders/Prescriptions Prescriptions: New amlodipine 10 mg Tablet 10 mg PO DAILY Qty: 0 0RF atorvastatin [Lipitor] 10 mg tablet 10 mg PO DAILY Qty: 30 0RF Continued epinephrine [EpiPen 2-Yuriy] 0.3 mg/0.3 mL auto-injector 0.3 mg IM Q5-15M PRN (Reason: anaphylaxis) Qty: 2 2RF Rx Instructions: do not exceed 3 doses per episode furosemide 40 mg tablet 40 mg PO SUSA PRN (Reason: FLUID) Patient Comments: pt only takes on weekends omeprazole 40 mg capsule,delayed release(DR/EC) 40 mg PO DAILY PRN (Reason: GERD) Patient Comments: PT STATES ONLY TAKES NEEDED Rx Instructions: Take 30 minutes before breakfast potassium chloride 20 mEq tablet extended release 20 meq PO DAILY albuterol sulfate 90 mcg/actuation HFA aerosol inhaler 1 - 2 puff INHALATION Q4H PRN PRN (Reason: Sob &/Or Wheezing) Qty: 1 1RF apixaban 5 mg tablet 5 mg PO BID 90 Days Qty: 180 1RF lisinopril 40 mg tablet 40 mg PO DAILY Qty: 90 2RF Referrals / Follow Up: Abdulaziz Ackerman MD [Primary Care Provider] - Within 2 Weeks Tucker Dodson MD [Med Staff - Active Staff] - See Referral Note (as directed) Disposition Disposition (needs filled in before D/C Order can be placed): Home, Self Care Charges/Coding Visit Charges Inpatient E&M: 37462 Disch Hosp >30min
--- NOTE | 2022-11-18 12:02 | CASEMGMT ---
JEAN MALDONADO in to complete PAK form with patient. JEAN MALDONADO explained PAK form to patient, patient voiced understanding. Patient signed PAK form and filed in chart. Patient provided with copy of signed PAK form. Patient denies needs at discharge. Patient had no further questions or concerns at home.
--- NOTE | 2022-11-18 16:25 | EX.PCM.CON.S ---
Assessment & Plan Assessment/Plan (1) Thoracoabdominal aortic aneurysm (TAAA): QUALIFIERS: Presence of rupture: without rupture PLAN: CTA A&P revealing of 5.1cm thoracoabdominal aneurysm. However, will want to obtain imaging including the chest to ensure the entirety of the aneurysm was visualized prior to making recommendations for management. As patient just received IV dye for both this CTA and heart catheterization will plan to wait at least 24-48 hours and obtain CTA Chest, Abdomen, Pelvis as an outpatient. Will have patient follow-up in the office after imaging to discuss management including possible surgical options as indicated. We discussed the importance of maintaining good BP control and smoking cessation. She is already initiated on statin and ASA. I emphasized the importance of ensuring continued outpatient follow-up with respect to this aneurysm and the patient and her daughter both expressed understanding. Our office will call to schedule an appointment and she should receive a call from the hospital to schedule the CTA as well. HPI Consult Data Date of Consult: 11/18/22 HPI Narrative Reason for Consultation: AAA HPI Narrative: ANDREIA ELAINE, is a 67 F who presented to the [facility] ER on 11/17/2022 with NSTEMI and paroxysmal AF and was admitted to PCU. She underwent heart catheterization today which showed nonobstructive coronary artery disease with preserved EF. As part of her work-up, CTA abdomen pelvis was obtained which showed evidence of ectasia and tortuosity of the distal thoracic aorta and proximal abdominal aorta with a transverse dimension of 5.1 cm for which we are consulted. Patient's medical history is also significant for hypertension, history of VTE (on Eliquis), GERD. At this admission, she was started on a beta-latisha, statin, and baby aspirin secondary to the NSTEMI/CAD. Patient reports no prior knowledge of AAA. No family history of aneurysms as far she knows. As related to her NSTEMI CAD, she does experience intermittent chest pain but otherwise denies abdominal/flank pain. She does have significant pain secondary to osteoarthritis of her knees but otherwise denies claudication type pain. She does smoke about 1/2 pack/day and is not particularly interested in quitting at this time. She reports her blood pressure is generally under good control, but she does not regularly check it at home. 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 Elevated random blood glucose level Elevated troponin (08/09/20) Essential hypertension Flu vaccine need GERD (gastroesophageal reflux disease) Heart failure with preserved ejection fraction History of pulmonary embolus (PE) (08/10/20) Hyperlipidemia Insomnia Melanoma Menopausal disorder Nicotine dependence Non-ST elevation [place] (NSTEMI) Obesity Osteoarthritis of left knee Preoperative clearance Shortness of breath Tobacco use Wound of left lower extremity Home Medications epinephrine 0.3 mg/0.3 mL injection, auto-injector (EpiPen 2-Yuriy) 0.3 mg (0.3 mL) IM Q5-15M PRN anaphylaxis #2 ea 01/03/22 [Rx Last Taken Unknown] albuterol sulfate 90 mcg/actuation aerosol inhaler 1 - 2 puff inhalation Q4H PRN PRN Sob &/Or Wheezing ##1 01/07/22 [Rx Last Taken 11/12/22] apixaban 5 mg tablet 5 mg PO BID 3 months #180 tabs 07/20/22 [Rx Last Taken 11/17/22] lisinopril 40 mg tablet 40 mg PO DAILY #90 tabs 07/20/22 [Rx Last Taken 11/16/22] furosemide 40 mg tablet 40 mg PO SUSA PRN FLUID 09/28/22 [History Last Taken 11/15/22] omeprazole 40 mg capsule,delayed release 40 mg PO DAILY PRN GERD 09/28/22 [History Last Taken 10/27/22] potassium chloride 20 mEq tablet,extended release 20 meq PO DAILY SUPPLEMENT 09/28/22 [History Last Taken 11/16/22] amlodipine 10 mg tablet 10 mg PO DAILY #0 tabs 11/18/22 [Rx Last Taken Unknown] atorvastatin 10 mg tablet (Lipitor) 10 mg PO DAILY #30 tabs 11/18/22 [Rx Last Taken Unknown] prednisone 10 mg tablet 10 mg PO BID #15 tabs 11/18/22 [Rx Last Taken Unknown] Allergy/AdvReac Type Severity Reaction Status Date / Time latex Allergy Mild rash Verified 11/17/22 07:36 trazodone Allergy Mild Tingling Verified 11/17/22 07:36 propoxyphene Allergy Hives Verified 11/17/22 07:36 [From Darvocet-N] acetaminophen AdvReac Intermediate Nausea/Vom/ Verified 11/17/22 11:38 [From Darvocet-N] Diarrhea Family History Other Anxiety Arthritis Depression Hypertension Thyroid disorder Surgical History H/O elbow surgery H/O tubal ligation History of cholecystectomy Social History housing: house Smoking Status: Current every day smoker tobacco type: cigarettes alcohol intake: never substance use type: does not use what type of physical activity do you participate in: walking frequency: 5-6 times per week Physical Exam Const alert, oriented x3 and no apparent distress HEENT normocephalic, head/scalp atraumatic, hearing grossly normal bilaterally, external ears normal and external nose normal Eyes EOMs intact bilaterally General Eye: normal appearance of both eyes Neck General: normal visual inspection and trachea midline Carotids: Negative for bruit Resp No no use of accessory muscles Effort and Inspection: able to speak in complete sentences; Negative for labored, stridor, retractions or audible wheezes Cardio regular rate and regular rhythm Heart Sounds: Negative for murmur Bruits: Negative for carotid bruit Peripheral Pulses: brachial pulses present and radial pulses present Extremity no clubbing, cyanosis or edema Skin no rashes or lesions noted Trauma: no lacerations or abrasions Neuro oriented x3, CN's II-XII intact bilaterally, moves all extremities and no focal motor deficits Speech: speech normal Psych mental status grossly normal Appearance: grossly normal Attitude: calm Activity / Motor Behavior: appropriate eye contact Speech: normal speech Lab / Micro Data 11/17/22 07:48 11/18/22 05:37 Labs: Laboratory Results - last 24 hr 11/18/22 05:37: Sodium 141, Potassium 2.9 L, Chloride 108 H, Carbon Dioxide 26.0, Anion Gap 7, BUN 16, Creatinine 0.64, Estim Creat Clear Calc 75.68, Est GFR (MDRD) Af Amer 121, Est GFR (MDRD) Non-Af 100, BUN/Creatinine Ratio 25.2 H, Glucose 92, Calcium 8.7 Radiology Impression Echocardiogram 11/17/22 09:25 Interpretation Summary Normal LV size. Mild concentric left ventricular hypertrophy. Mild to moderate (1-2+) tricuspid valve insufficiency. Mildly dilated aortic root. Dilated descending aorta. The estimated ejection fraction is 55 %. Left ventricular systolic function is normal. Stage 2 diastolic dysfunction. Ordering Physician: Jimmy Clark Referring Physician: Abdulaziz Ackerman Performed By: Sona Kirk RDCS /CTA Abd/Pelvis W/WO Contrast 11/17/22 IMPRESSION: Tortuosity and dilatation at the junction of the thoracic and proximal abdominal aorta. Infrarenal abdominal aorta shows evidence of atherosclerotic changes. Bilateral adrenal hyperplasia and possible small bilateral adrenal adenomas. Sigmoid diverticulosis. 2 cm x 1.3 cm enhancing mass in the mid medial portion of the right kidney as described. A neoplastic process should be ruled out. Electronically Signed: Ariel Tate MD at 13:04 EDT Charges/Coding Visit Charges Inpatient E&M: 51086 Init Hosp L2
== END 2022-11-18 11:45 | disposition home or self-care (01) ==
LOC: ED 08:36 → PCU 09:19
PROVIDERS: Admitting Provider Internal Medicine; Emergency Provider Emergency Medicine; PCP Internal Medicine; Visit Provider Internal Medicine
DX: I21.4 Non-ST elevation (NSTEMI) myocardial infarction (principal); I11.0 Hypertensive heart disease with heart failure; I50.32 Chronic diastolic (congestive) heart failure; I27.20 Pulmonary hypertension, unspecified; I71.60 Thoracoabdominal aortic aneurysm, without rupture, unspecified; I48.0 Paroxysmal atrial fibrillation; I48.3 Typical atrial flutter; I25.110 Atherosclerotic heart disease of native coronary artery with unstable angina pectoris; E11.9 Type 2 diabetes mellitus without complications; I25.2 Old myocardial infarction; E78.00 Pure hypercholesterolemia, unspecified; Z79.01 Long term (current) use of 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s; M17.12 Unilateral primary osteoarthritis, left knee; K21.9 Gastro-esophageal reflux disease without esophagitis; E87.6 Hypokalemia; F17.210 Nicotine dependence, cigarettes, uncomplicated; Z79.899 Other long term (current) drug therapy
CPT/HCPCS: 36415; 71046; 73564; 74174; 80048; 80061; 83735; 84443; 84484; 85025; 93005; 93306; 93458; 96365; 96366; 99152; 99153; 99221; 99285; J7030; Q9967; A4216; C1769; C1894; G0378

== ENCOUNTER 2022-12-13 12:54 | Outpatient (RCR) | payer OTHER, MEDICARE, SELFPAY ==
--- NOTE | 2022-12-14 15:39 | HP.OTFCE_ITS ---
Task Lift Floor (Occasional 1-33% of Day): 30# Floor (Frequent 34-66% of Day): 15# Floor (Constant 67-100% of Day): NA Floor PDL: Light Knee (Occasional 1-33% of Day): 30# Knee (Frequent 34-66% of Day): 15# Knee (Constant 67-100% of Day): NA Knee PDL: Light Waist (Occasional 1-33% of Day): 20# Waist (Frequent 34-66% of Day): 10# Waist (Constant 67-100% of Day): NA Waist PDL: Sedentary-Light Shoulder (Occasional 1-33% of Day): 15# Shoulder (Frequent 34-66% of Day): 8# Shoulder (Constant 67-100% of Day): NA Shoulder PDL: Sedentary-Light Overhead (Occasional 1-33% of Day): NA Overhead (Frequent 34-66% of Day): NA Overhead (Constant 67-100% of Day): NA Overhead PDL: No Ability Comments: pt demo PYSICAL DEMAND LEVEL OF Light lifting from floor, knee and waist levels pt demo PHYSICAL DEMAND LEVEL OF sedentary-Light Physical demand level at shoulder heights Pt demo no ability to lift Overhead. Work Activity/Posture Bending: Frequent Ability (34-66% of day) Comments: with external support Squatting: Occasional Ability (1-33% of day) Comments: with external support Kneeling: No Ablility (0% of day) Reaching out: Frequent Ability (34-66% of day) Comments: performed while sitting Reaching up: Frequent Ability (34-66% of day) Comments: performed while sitting Sitting: Frequent Ability (34-66% of day) Walking: Occasional Ability (1-33% of day) Standing: Frequent Ability (34-66% of day) Comments: with shifting body weight Reference Reference: Duration Sedentary Sedentary Light Light Light Medium Medium Medium Heavy Very Heavy Heavy Occasional (0-33% of day) Frequent (34-66% of day) Constant (67-100% of day) 10 # Negligible Negligible 15 # 8 # Negligible 20 # 10# Negli. 35 # 18 # 7 # 50 # 25 # 10 # 75 # 100 # >100 # 38 # 50 # >50 # 15 # 20 # >20 # Patient Information Height: 1.57 m Weight:: 81.647 kg Hand Dominance: right Medical History Medical History Including Restrictions: Pt states July of 2021 pt was told she had a mild heart attach. pt states she becomes SOB and legs become painful. pt states orthopedic stated she has arthritis in knee caps in 2021. November 18 pt states she started having increase heart issues. pt states she has been through testing and was placed on a number of medications now. pt states she feels she pushes herself to do to much and will pay for it later with pain or chest tightness. Pt smokes cigarettes' 1/2 a pack a day, has smoked about 35 years) pt states she does have inhaler but seldom uses it. Diagnoses Diagnoses: Osteoarthrosis left knee irregular heart beat History of pulmonary embolus (PE) 08/10/20 Hyperlipidemia Insomnia Essential hypertension Symptoms Symptoms: exhausted chest pressure leg weakness left knee pain irritable mood change SOB Pain Pain: pt states her current pain 0/10. pt state with sitting she is ok- has knee brace but not significantly helpful. Work History Work History: Pt states she works for [employer] for 20 years. 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 pt states her lifting requirement (pt did not have her work requirement or job description) She is unsure what she is required to lift or carry. pt states she has been required to walk and carry boxes about 10 -15 feet hand states this is challenging. States this is where she get chest pain and becomes SOB. pt states she works 8 hours a day. pt states she has become more SOB when on her feet and carrying boxes daily. pt states she feels she could run machines well. pt states she can work in dampers well. pt states she struggles with walking and carrying materials about 15feet. pt states she can not breath and increases left leg pain ( due to left knee OA) Behavioral Behavioral: pt cooperative throughout assessment. ADLS ADLS: pt states she lives with friend in mobile home with 5 entry steps with two handrails. Pt denies difficulty getting in her home. Pt states she does take her time as she does get SOB. (pt states she has been going on for about a year) pt has tub shower combination and reports IND with bathing/dressing. Pt states she can mtg her home with cleaning, cooking and lawn mowing. pt states she does the grocery shopping and will use cart. Family will assist with carrying groceries in. Physical Examination Physical Examination: heart rate 79 -76 prior to start of assessment ROM: pt demo ROM WFL Strength: FET2 peak force testing in lbs shoulder flexion right 7.8# left 13.6# shoulder extension right 18# left 16.6# biceps right 32# left 30# triceps right 27# left 28# Hip flexion right 17# left 13# quadriceps right 17# left 16# Hamstrings right 25# left 19# Right Videotape Recording Engineer Strength Average: 63.33 Left Videotape Recording Engineer Strength Average: 61.66 Right Lateral Pinch Average: 14.00 Right Lateral Pinch Percentile: 75% Left Lateral Pinch Average: 14.66 Left Lateral Pinch Percentile: 90% Right Tripod Pinch Average: 12.66 Right Tripod Pinch Percentile: 75% Left Tripod Pinch Average: 10.00 Left Tripod Pinch Percentile: 50% Comments: 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 Sensation: denies Fine Motor: denies Balance: functional reach 10 Non Material Handling Activities Bending: pt demo the ability to bend forward 3/3x, 10/10x reported feeling dizzy sat for 2 min pt states chest pain 1/10 heart rate 67 bending forward 10/10x rapidly chest pain 1/10 heart rate 82 falls to 74 quickly pt can bend forward on frequent ability with use of external support Squatting: pt demo the ability to squat 3/3x report left knee pain 4/10 states pain is mostly during movement pt use of external support pt unable to perform 10x or 10x rapidly pt can squat on occasional ability Kneeling: no ability pt declined to perform due to left knee pain states she does not need to kneel at work. Reaching out/up: pt completed while sitting 3/3x, 10/10x and 10/10x rapidly 77 heart rate chest feels tight little bit not painful pt can reach up/out on frequent ability while sitting. Walking: pt ambulates an antalgic gait pattern [place] legs ( genu varum) and fair step stride. Pt ambulated 298 feet but required one rest stop for 30 sec. as pt became SOB. Pt than ambulated 300 feet requiring two short rest stops ( 45 sec) due to SOB. pt limited with ambulation distance due to SOB. pt can ambulate on occasional ability Standing: pt demo the ability to stand for 10 min with shifting body weight. pt did stand more on right leg vs left due to left knee arthritis. pt can stand on frequent ability with ability to sift body weight as needed. Sitting: pt demo the ability to sit for 40 min with no apparent discomfort pt can sit on frequent ability Climbing Stairs: pt demo the ability to ascend 10 steps with a sing step pattern and use of bilateral rails ( right left up) descending 10 steps with single left leg down states chest tightness 3/10 and left knee pain 6/10 Dynamic Occasional Lifting Capacity Floor Lift: pt demo the ability to lift 15# plus box weight of 15# for maximal lift of 30# from this level. pt demo poor lift mechanics lift with arms in lumbar flexed forward position. Knee Lift: pt demo the ability to lift 15# plus box weight of 15# for maximal lift of 30# from this level. pt demo poor lift mechanics lift with arms in lumbar flexed forward position. Waist Lift: pt demo the ability to lift 10# plus box weight of 15# for maximal lift of 25# from this level. with fair lifting mechanics. 65 heart rate Shoulder Lift: pt demo the ability to lift 15# maximally from this level with fair lifting mechanics. Overhead Lift: unable Carrying: pt carried 25# for 30 feet reports chest pain 3-4/10 left knee pain 6/10 heart rate was initial 48 came up to 50 than 64. pt states this activity is most challenging of her work tasks. Comments: pt participated for assessment reporting pain ranging from 0/10-5/10 at times. pt did states chest tightness and pain with lifting/carry pt also limited with SOB pt would hold her breath with some of the tasks that was requested for pt. when asked why she could not say.
--- NOTE | 2022-12-14 15:39 | HP.OTFCE.D ---
FCE D/C Summary Discharge text: ANDREIA Lennie ELAINE was seen for a one time visit for an FCE on 12/13/22 and is discharged.
== END 2022-12-13 19:00 ==
LOC: OT 12:54
PROVIDERS: PCP Internal Medicine; Referring Provider Internal Medicine; Visit Provider Internal Medicine
DX: Z76.89 Persons encountering health services in other specified circumstances (principal)
CPT/HCPCS: 97750

== ENCOUNTER → 2023-03-07 | Outpatient (CLI) | payer MEDICARE, OTHER, SELFPAY ==
--- NOTE | 2023-03-07 12:35 | RAD_ITS ---
EXAM: XR LUMBOSACRAL SPINE, 2 OR 3 VIEWS CLINICAL INDICATION: back pain TECHNIQUE: Frontal and lateral views of the lumbar spine and sacrum. COMPARISON: No relevant prior studies available. FINDINGS: VERTEBRAE: Multilevel facet arthropathy. DISC SPACES: Mild disc space narrowing at L3-4 and L4-5. VASCULATURE: 3.3 cm aneurysm of the abdominal aorta. RAD/Lumbar Spine 2 or 3 Views IMPRESSION: No acute lumbar spine abnormality. Mild to moderate spondylosis. 3.3 cm AAA. Electronically Signed: Milton Pretty MD at 13:28 EDT ,
--- NOTE | 2023-03-07 12:35 | RAD_ITS ---
EXAM: XR THORACIC SPINE, 3 VIEWS CLINICAL INDICATION: back pain TECHNIQUE: Frontal, lateral and swimmer''s views of the thoracic spine. COMPARISON: No relevant prior studies available. FINDINGS: VERTEBRAE: Mild multilevel vertebral body osteophytosis. No acute fracture or subluxation. DISC SPACES: Normal. No significant disc space narrowing. No paraspinal mass. RAD/Thoracic Spine 3 Views IMPRESSION: Mild spondylosis. Electronically Signed: Milton Pretty MD at 13:29 EDT ,
== END | disposition home or self-care (01) ==
PROVIDERS: PCP Internal Medicine; Referring Provider Physician Assistant; Visit Provider Physician Assistant
DX: M54.9 Dorsalgia, unspecified (principal)
CPT/HCPCS: 72072; 72100

== ENCOUNTER 2023-05-31 09:27 | Outpatient (RCR) | payer MEDICARE, SELFPAY | END 2023-05-31 09:29 | disposition home or self-care (01) | LOC: PT 09:27 | PROVIDERS: PCP Internal Medicine; Referring Provider Physician Assistant; Visit Provider Physician Assistant | DX: S29.012D Strain of muscle and tendon of back wall of thorax, subsequent encounter ==

== ENCOUNTER → 2023-06-19 | Outpatient (CLI) | payer MEDICARE, SELFPAY ==
[2023-06-19 12:49] LABS: AST(SGOT) 14 U/L (15-37); Alanine Aminotransfer ALT/SGPT 21 U/L (13-56); Albumin, Serum 3.3 g/dL (3.2-5.0); Alkaline Phosphatase 101 U/L (45-117); Anion Gap 4 (5-15); BUN 15 mg/dL (7-18); BUN/Creat Ratio 20.1 RATIO (10-20); Calcium,Total 8.7 mg/dL (8.5-10.1); Chloride 112 mmol/L (98-107); Creatinine, Serum 0.74 mg/dL (0.55-1.02); EST Glomerular Filtration Rate 83 mL/min (>60); Est Glom Filt Rate - Afr Amer 100 mL/min (>60); Globulin 3.3 g/dL (2.2-4.2); Glucose 97 mg/dL (74-106); Potassium 3.9 mmol/L (3.5-5.1); Protein, Total 6.6 g/dL (6.4-8.2); Sodium Level 143 mmol/L (136-145)
== END | disposition home or self-care (01) ==
PROVIDERS: PCP Internal Medicine; Referring Provider Nurse Practitioner; Visit Provider Nurse Practitioner
DX: I10 Essential (primary) hypertension (principal)
CPT/HCPCS: 36415; 80053

== ENCOUNTER 2023-06-21 09:23 | Outpatient (RCR) | payer MEDICARE, SELFPAY ==
[2023-06-21 12:37] LABS: International Normalized Ratio 1.3; Prothrombin Time (Protime)PT. 16.6 SECONDS (11.7-14.9)
== END 2023-06-21 23:59 ==
LOC: BIMLAB 09:23
PROVIDERS: PCP Internal Medicine; Visit Provider Nurse Practitioner
DX: Z86.711 Personal history of pulmonary embolism (principal)
CPT/HCPCS: 36415; 85610

== ENCOUNTER 2023-06-26 10:52 | Outpatient (RCR) | payer MEDICARE, SELFPAY ==
[2023-06-26 12:50] LABS: International Normalized Ratio 1.3; Prothrombin Time (Protime)PT. 16.5 SECONDS (11.7-14.9)
== END 2023-07-20 23:59 ==
LOC: BIMLAB 10:52
PROVIDERS: PCP Internal Medicine; Visit Provider Nurse Practitioner
DX: Z86.711 Personal history of pulmonary embolism (principal)
CPT/HCPCS: 36415; 85610

== ENCOUNTER 2023-07-28 09:08 | Outpatient (RCR) | payer MEDICARE, SELFPAY ==
[2023-07-21 15:47] LABS: International Normalized Ratio 1.1
[2023-07-28 12:07] LABS: Absolute Lymphocyte Count 2.41 X10^3/uL (0.83-4.51); Absolute Neutrophil Count 5.7 X10^3/uL (2.0-7.7); Basophil# 0.06 X10^3/uL; Basophil% 0.7 % (0-1); Eosinophil# 0.16 X10^3/uL; Eosinophils% 1.8 % (0-5); Hematocrit 40.7 % (37-47); Hemoglobin 12.1 g/dL (12.0-15.0); Lymphocyte # 2.41 X10^3/ul (0.83-4.51); Lymphocyte % 26.5 % (19-41); Mean Corp Hgb Conc 29.7 g/dL (32-36); Mean Corpuscular Hgb 24.2 pg (27.0-32.0); Mean Corpuscular Volume 81.2 fL (81-99); Mean Platelet Vol. 10.9 fl (6.2-12.0); Monocyte# 0.77 X10^3/uL; Monocyte% 8.5 % (0-10); NRBC Flagged by Analyzer 0 % (0-5); Neutrophil # 5.66 X10^3/uL (2.7-7.7); Neutrophil % 62.3 % (47-70); Platelet Count 283 K/mm3 (150-450); RBC Distribution Width CV 19.7 % (11.6-14.6); RBC Distribution Width SD 57.5 fl (35.1-43.9); Red Blood Count 5.01 M/mm3 (4.2-5.4); White Blood Count 9.1 K/mm3 (4.4-11.0)
[2023-07-28 12:22] LABS: International Normalized Ratio 1.3; Prothrombin Time (Protime)PT. 16.5 SECONDS (11.7-14.9)
[2023-07-28 12:28] LABS: Anion Gap 4 (5-15); BUN 13 mg/dL (7-18); BUN/Creat Ratio 15.7 RATIO (10-20); Calcium,Total 9.2 mg/dL (8.5-10.1); Chloride 108 mmol/L (98-107); Creatinine, Serum 0.83 mg/dL (0.55-1.02); EST Glomerular Filtration Rate 73 mL/min (>60); Est Glom Filt Rate - Afr Amer 89 mL/min (>60); Ferritin 38 ng/mL (8-252); Glucose 88 mg/dL (74-106); Iron 39 ug/dL (50-170); Iron Binding Capacity,Total 437 ug/dL (250-450); Potassium 4.1 mmol/L (3.5-5.1); Sodium Level 139 mmol/L (136-145)
== END 2023-08-20 23:59 ==
LOC: BIMLAB 09:08
PROVIDERS: PCP Internal Medicine; Visit Provider Nurse Practitioner
DX: Z86.711 Personal history of pulmonary embolism (principal); E87.6 Hypokalemia; I50.32 Chronic diastolic (congestive) heart failure; R06.02 Shortness of breath
CPT/HCPCS: 36415; 80048; 82728; 83540; 83550; 85025; 85610

== ENCOUNTER → 2023-08-08 | Outpatient (CLI) | payer MEDICARE, SELFPAY ==
[2023-08-08 11:55] LABS: International Normalized Ratio 2.2
[2023-08-08 13:14] LABS: ALB/GLOB Ratio 0.7 RATIO (0.9-2.4); AST(SGOT) 17 U/L (15-37); Alanine Aminotransfer ALT/SGPT 17 U/L (13-56); Albumin, Serum 3.4 g/dL (3.2-5.0); Alkaline Phosphatase 89 U/L (45-117); Anion Gap 11 (5-15); BUN 15 mg/dL (7-18); BUN/Creat Ratio 19.6 RATIO (10-20); Calcium,Total 8.8 mg/dL (8.5-10.1); Chloride 105 mmol/L (98-107); Creatinine, Serum 0.76 mg/dL (0.55-1.02); EST Glomerular Filtration Rate 80 mL/min (>60); Est Glom Filt Rate - Afr Amer 97 mL/min (>60); Globulin 4.7 g/dL (2.2-4.2); Glucose 148 mg/dL (74-106); Potassium 3.6 mmol/L (3.5-5.1); Protein, Total 8.1 g/dL (6.4-8.2); Sodium Level 140 mmol/L (136-145)
== END | disposition home or self-care (01) ==
LOC: BIMLAB 09:03
PROVIDERS: Nurse Practitioner; PCP Internal Medicine; Visit Provider Internal Medicine
DX: Z86.711 Personal history of pulmonary embolism (principal); I10 Essential (primary) hypertension
CPT/HCPCS: 36415; 80053; 85610

== ENCOUNTER 2023-09-18 14:22 | Outpatient (RCR) | payer MEDICARE, SELFPAY ==
[2023-08-22 12:37] LABS: International Normalized Ratio 1.5; Prothrombin Time (Protime)PT. 18.3 SECONDS (11.7-14.9)
[2023-08-31 12:15] LABS: International Normalized Ratio 1.3; Prothrombin Time (Protime)PT. 16.1 SECONDS (11.7-14.9)
[2023-09-06 12:32] LABS: International Normalized Ratio 2.2; Prothrombin Time (Protime)PT. 24.5 SECONDS (11.7-14.9)
[2023-09-18 15:22] LABS: Prothrombin Time (Protime)PT. 13.6 SECONDS (11.7-14.9)
== END 2023-09-19 23:59 ==
LOC: BIMLAB 14:22
PROVIDERS: PCP Internal Medicine; Visit Provider Nurse Practitioner
DX: Z86.711 Personal history of pulmonary embolism (principal)
CPT/HCPCS: 36415; 85610

== ENCOUNTER 2023-10-17 09:18 | Outpatient (RCR) | payer MEDICARE, SELFPAY ==
[2023-09-27 12:55] LABS: Anion Gap 6 (5-15); BUN 9 mg/dL (7-18); BUN/Creat Ratio 11.3 RATIO (10-20); Calcium,Total 8.8 mg/dL (8.5-10.1); Chloride 109 mmol/L (98-107); Creatinine, Serum 0.79 mg/dL (0.55-1.02); EST Glomerular Filtration Rate 77 mL/min (>60); Est Glom Filt Rate - Afr Amer 93 mL/min (>60); Glucose 106 mg/dL (74-106); Potassium 3.8 mmol/L (3.5-5.1); Sodium Level 138 mmol/L (136-145)
[2023-09-27 13:09] LABS: International Normalized Ratio 1.3; Prothrombin Time (Protime)PT. 15.9 SECONDS (11.7-14.9)
[2023-09-27 14:39] LABS: Hemoglobin A1c 6.2 % (3.8-5.6)
[2023-10-03 15:28] LABS: International Normalized Ratio 1.5; Prothrombin Time (Protime)PT. 18.3 SECONDS (11.7-14.9)
[2023-10-17 12:41] LABS: International Normalized Ratio 2.2
== END 2023-10-20 23:59 ==
LOC: BIMLAB 09:18
PROVIDERS: PCP Internal Medicine; Visit Provider Nurse Practitioner
DX: Z86.711 Personal history of pulmonary embolism (principal); I10 Essential (primary) hypertension; R73.03 Prediabetes
CPT/HCPCS: 36415; 80048; 83036; 85610

== ENCOUNTER 2023-11-02 09:40 | Outpatient (RCR) | payer MEDICARE, SELFPAY ==
[2023-11-02 12:34] LABS: International Normalized Ratio 2.5; Prothrombin Time (Protime)PT. 26.5 SECONDS (11.7-14.9)
== END 2023-11-19 23:59 ==
LOC: BIMLAB 09:40
PROVIDERS: PCP Internal Medicine; Visit Provider Nurse Practitioner
DX: Z86.711 Personal history of pulmonary embolism (principal)
CPT/HCPCS: 36415; 85610

== ENCOUNTER 2023-12-18 09:59 | Outpatient (RCR) | payer MEDICARE, SELFPAY ==
[2023-12-05 12:17] LABS: International Normalized Ratio 1.9; Prothrombin Time (Protime)PT. 21.4 SECONDS (11.7-14.9)
[2023-12-18 12:28] LABS: International Normalized Ratio 2.5; Prothrombin Time (Protime)PT. 27.1 SECONDS (11.7-14.9)
== END 2023-12-20 23:59 ==
LOC: BIMLAB 09:59
PROVIDERS: PCP Internal Medicine; Referring Provider Nurse Practitioner; Visit Provider Nurse Practitioner
DX: Z86.711 Personal history of pulmonary embolism (principal)
CPT/HCPCS: 36415; 85610

== ENCOUNTER → 2024-02-06 | Outpatient (CLI) | payer MEDICARE, SELFPAY ==
[2024-02-06 12:35] LABS: International Normalized Ratio 1.7; Prothrombin Time (Protime)PT. 19.9 SECONDS (11.7-14.9)
== END | disposition home or self-care (01) ==
LOC: BIMLAB 09:16
PROVIDERS: PCP Internal Medicine; Visit Provider Nurse Practitioner
DX: Z86.711 Personal history of pulmonary embolism (principal); Z79.01 Long term (current) use of 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s
CPT/HCPCS: 36415; 85610

== ENCOUNTER 2024-02-12 09:58 | Outpatient (RCR) | payer MEDICARE, SELFPAY ==
[2024-01-29 12:13] LABS: International Normalized Ratio 1.5; Prothrombin Time (Protime)PT. 17.8 SECONDS (11.7-14.9)
[2024-02-12 12:15] LABS: International Normalized Ratio 3.4; Prothrombin Time (Protime)PT. 34.4 SECONDS (11.7-14.9)
== END 2024-02-19 23:59 ==
LOC: BIMLAB 09:58
PROVIDERS: PCP Internal Medicine; Referring Provider Nurse Practitioner; Visit Provider Nurse Practitioner
DX: Z86.711 Personal history of pulmonary embolism (principal)
CPT/HCPCS: 36415; 85610

== ENCOUNTER 2024-03-19 11:00 | Outpatient (RCR) | payer MEDICARE, SELFPAY ==
[2024-02-20 12:19] LABS: International Normalized Ratio 3.6; Prothrombin Time (Protime)PT. 35.3 SECONDS (11.7-14.9)
[2024-02-23 12:32] LABS: International Normalized Ratio 1.6; Prothrombin Time (Protime)PT. 18.7 SECONDS (11.7-14.9)
[2024-02-23 13:06] LABS: ALB/GLOB Ratio 0.9 RATIO (0.9-2.4); AST(SGOT) 21 U/L (15-37); Alanine Aminotransfer ALT/SGPT 24 U/L (13-56); Albumin, Serum 3.4 g/dL (3.2-5.0); Alkaline Phosphatase 92 U/L (45-117); Anion Gap 6 (5-15); BUN 11 mg/dL (7-18); BUN/Creat Ratio 16.4 RATIO (10-20); Chloride 109 mmol/L (98-107); Cholesterol 164 mg/dL (200); Creatinine, Serum 0.67 mg/dL (0.55-1.02); EST Glomerular Filtration Rate 94 mL/min (>60); Est Glom Filt Rate - Afr Amer 113 mL/min (>60); Globulin 3.9 g/dL (2.2-4.2); Glucose 104 mg/dL (74-106); High Density Lipoprotein 47 mg/dL; Potassium 3.1 mmol/L (3.5-5.1); Protein, Total 7.3 g/dL (6.4-8.2); Sodium Level 142 mmol/L (136-145); Triglycerides 117 mg/dL; Very Low Density Lipoprotein 23 mg/dL (5-40)
[2024-02-23 15:33] LABS: Hemoglobin A1c 6.3 % (3.8-5.6)
[2024-02-28 12:37] LABS: International Normalized Ratio 3.6; Prothrombin Time (Protime)PT. 35.6 SECONDS (11.7-14.9)
[2024-03-11 12:29] LABS: International Normalized Ratio 1.2; Prothrombin Time (Protime)PT. 14.8 SECONDS (11.7-14.9)
[2024-03-19 12:11] LABS: International Normalized Ratio 1.3; Prothrombin Time (Protime)PT. 15.9 SECONDS (11.7-14.9)
== END 2024-03-21 23:59 ==
LOC: BIMLAB 11:00
PROVIDERS: PCP Internal Medicine; Referring Provider Nurse Practitioner; Visit Provider Nurse Practitioner
DX: Z86.711 Personal history of pulmonary embolism (principal); E78.5 Hyperlipidemia, unspecified; R73.03 Prediabetes
CPT/HCPCS: 36415; 80053; 80061; 83036; 85610

== ENCOUNTER 2024-04-10 11:06 | Outpatient (RCR) | payer MEDICARE, SELFPAY ==
[2024-03-25 12:31] LABS: International Normalized Ratio 1.9; Prothrombin Time (Protime)PT. 21.5 SECONDS (11.7-14.9)
[2024-04-10 12:20] LABS: Prothrombin Time (Protime)PT. 22.4 SECONDS (11.7-14.9)
== END 2024-04-20 23:59 ==
LOC: BIMLAB 11:06
PROVIDERS: Nurse Practitioner; PCP Internal Medicine; Referring Provider Internal Medicine; Visit Provider Internal Medicine
DX: Z86.711 Personal history of pulmonary embolism (principal)
CPT/HCPCS: 36415; 85610

== ENCOUNTER 2024-04-30 10:35 | Outpatient (RCR) | payer MEDICARE, SELFPAY ==
[2024-04-30 12:21] LABS: International Normalized Ratio 1.8; Prothrombin Time (Protime)PT. 20.6 SECONDS (11.7-14.9)
== END 2024-05-21 23:59 ==
LOC: BIMLAB 10:35
PROVIDERS: PCP Internal Medicine; Referring Provider Internal Medicine; Visit Provider Internal Medicine
DX: Z86.711 Personal history of pulmonary embolism (principal)
CPT/HCPCS: 36415; 85610

== ENCOUNTER 2024-08-15 10:42 | Outpatient (RCR) | payer MEDICARE, SELFPAY ==
[2024-07-24 16:50] LABS: Absolute Lymphocyte Count 1.41 X10^3/uL (0.83-4.51); Absolute Neutrophil Count 5.1 X10^3/uL (2.0-7.7); Basophil# 0.07 X10^3/uL; Basophil% 0.9 % (0-1); Eosinophil# 0.14 X10^3/uL; Eosinophils% 1.9 % (0-5); Hematocrit 35.3 % (37-47); Hemoglobin 10.1 g/dL (12.0-15.0); Lymphocyte # 1.41 X10^3/ul (0.83-4.51); Lymphocyte % 18.9 % (19-41); Mean Corp Hgb Conc 28.6 g/dL (32-36); Mean Corpuscular Hgb 22.1 pg (27.0-32.0); Mean Corpuscular Volume 77.2 fL (81-99); Mean Platelet Vol. 10.1 fl (6.2-12.0); Monocyte# 0.69 X10^3/uL; Monocyte% 9.2 % (0-10); NRBC Flagged by Analyzer 0 % (0-5); Neutrophil # 5.14 X10^3/uL (2.7-7.7); Neutrophil % 68.7 % (47-70); Platelet Count 237 K/mm3 (150-450); RBC Distribution Width CV 18.7 % (11.6-14.6); RBC Distribution Width SD 51.2 fl (35.1-43.9); Red Blood Count 4.57 M/mm3 (4.2-5.4); White Blood Count 7.5 K/mm3 (4.4-11.0)
[2024-07-24 17:03] LABS: International Normalized Ratio 1.2; Prothrombin Time (Protime)PT. 15.7 SECONDS (11.7-14.9)
[2024-07-24 18:14] LABS: ALB/GLOB Ratio 1.3 RATIO (0.9-2.4); AST(SGOT) 21 U/L (<=31); Alanine Aminotransfer ALT/SGPT 20 U/L (<=34); Albumin, Serum 3.5 g/dL (3.4-4.8); Alkaline Phosphatase 80 U/L (35-104); Anion Gap 11 (5-15); BUN 12 mg/dL (4-19); BUN/Creat Ratio 16.1 RATIO (10-20); Calcium,Total 8.7 mg/dL (7.6-11.0); Carbon Dioxide 24.5 mmol/L (21.0-32.0); Chloride 104 mmol/L (98-108); Creatinine, Serum 0.77 mg/dL (0.70-1.20); EST Glomerular Filtration Rate 85 (>60); Globulin 2.8 g/dL (2.2-4.2); Glucose 85 mg/dL (70-99); Potassium 3.3 mmol/L (3.3-5.1); Pro- Brain NATRIURETIC PEPTIDE 3206 pg/mL (<=900); Protein, Total 6.2 g/dL (5.9-8.4); Sodium Level 140 mmol/L (133-145); Total Bilirubin 0.67 mg/dL (0.00-1.30)
[2024-07-24 19:57] LABS: Hemoglobin A1c 6.1 % (<=5.6)
[2024-07-31 12:33] LABS: International Normalized Ratio 1.9; Prothrombin Time (Protime)PT. 22.6 SECONDS (11.7-14.9)
[2024-07-31 12:54] LABS: AST(SGOT) 29 U/L (<=31); Alanine Aminotransfer ALT/SGPT 21 U/L (<=34); Albumin, Serum 3.5 g/dL (3.4-4.8); Alkaline Phosphatase 86 U/L (35-104); Anion Gap 14 (5-15); BUN 11 mg/dL (4-19); BUN/Creat Ratio 12.6 RATIO (10-20); Calcium,Total 8.6 mg/dL (7.6-11.0); Carbon Dioxide 26.1 mmol/L (21.0-32.0); Chloride 100 mmol/L (98-108); Creatinine, Serum 0.91 mg/dL (0.70-1.20); EST Glomerular Filtration Rate 69 (>60); Globulin 3.3 g/dL (2.2-4.2); Glucose 163 mg/dL (70-99); Potassium 2.8 mmol/L (3.3-5.1); Protein, Total 6.8 g/dL (5.9-8.4); Sodium Level 140 mmol/L (133-145)
[2024-08-15 12:59] LABS: International Normalized Ratio 1.6; Prothrombin Time (Protime)PT. 19.2 SECONDS (11.7-14.9)
== END 2024-08-19 23:59 ==
LOC: BIMLAB 10:42
PROVIDERS: Physician Assistant; PCP Internal Medicine; Referring Provider Internal Medicine; Visit Provider Internal Medicine
DX: Z86.711 Personal history of pulmonary embolism (principal); I50.30 Unspecified diastolic (congestive) heart failure; I11.0 Hypertensive heart disease with heart failure; R73.03 Prediabetes
CPT/HCPCS: 36415; 80053; 83036; 83880; 84439; 84443; 85025; 85610

== ENCOUNTER 2024-08-21 11:08 | Inpatient (IN) | payer MEDICARE, SELFPAY ==
[2024-08-21] VITALS (19 sets, daily range): BP systolic 101–177; BP diastolic 67–159; PULSE 68–138; RESP 16–28; TEMP 36.1–36.9; O2SAT 77–100; BMI 36.8; BMI 35.6
--- NOTE | 2024-08-21 11:32 | EKG12_ITS ---
Test Reason : CP Blood Pressure : */* mmHG Vent. Rate : 139 BPM Atrial Rate : 300 BPM P-R Int : * ms QRS Dur : 80 ms QT Int : 290 ms P-R-T Axes : * 119 0 degrees QTcB Int : 441 ms Atrial flutter with variable A-V block with premature ventricular or aberrantly conducted complexes Right axis deviation Septal infarct (cited on or before 12-Apr-2019) Abnormal ECG suspect limb lead reversal Reconfirmed by Param Dominguez ([id number]), industrial editor SHAMAR ALLEN ([id number]) on 08/22/2024 7:55:32 AM Referred By: Confirmed By: Param Dominguez
--- NOTE | 2024-08-21 11:32 | RAD_ITS ---
EXAM: XR Chest, 2 Views CLINICAL INDICATION: DYSPNEA, DYSPNEA EXERTION, ORTHOPNEA BILATERAL RAL TECHNIQUE: Frontal and lateral views of the chest. COMPARISON: No relevant prior studies available. FINDINGS: LUNGS AND PLEURAL SPACES: See below. HEART: Cardiomegaly with mild congestion. MEDIASTINUM: Unremarkable. Normal mediastinal contour. BONES/JOINTS: Unremarkable. No acute fracture. RAD/Chest PA and Lateral IMPRESSION: Cardiomegaly with mild congestion. Reading Location: [facility]
--- NOTE | 2024-08-21 11:38 | EDS_ITS ---
HPI History of Present Illness Chief Complaint: Chest Pain Detail of Chief Complaint: Increasing dyspnea, dyspnea on exertion, orthopnea and chest discomfort Informant: patient Onset/Context/Timing Onset: - (Documented HPI narrative since onset is different depending on symptom.) Context: Gradual Onset Timing: Continuous Quality: Shortness of breath at rest presently Location: Cardiovascular Current Severity: Moderate Maximum Severity: Moderate Worsened by: Activity and lying flat Relieved by: Nothing Associated Symptoms Associated Symptoms: She has had chest discomfort. She was seen by her PCP yesterday and Lasix Narrative Narrative: Patient is a 69-year-old woman. She has history of atrial fibrillation, type 2 diabetes, thoracoabdominal aortic aneurysm, pulmonary embolus, atrial fibrillation and flutter, lower extremity exam, hypertension, hyperlipidemia, tobacco use who is on Coumadin. She states she is compliant with her medicati on. She reports she has been sleeping in a chair for the past 3 months. She has had increased shortness of breath with activity. She states she has to stop if she walks more than 20 steps. She believes her heart rate became fast within the last 12 to 24 hours. She does not recall when her last INR was obtained. She denies pleuritic chest pain. She does report midsternal discomfort. This is associated with activity as well as at rest. She denies black or maroon-colored stool. Denies blood in her urine. Denies bruising easily. Denies bleeding of her gums. She denies history of obstr uctive sleep apnea. She does have history of insomnia. She has not seen by local console assembler.She was seen earlier this month by her PCP. Assessment at that time was dyspnea on exertion, lower extremity exam a, diastolic heart failure and atrial flutter which is chronic. She was seen on the by nurse practitioner. Office note was reviewed. Diagnoses at that time was open wounds of both lower extremities with Serous drainage. Prior similar symptoms: Yes Recent Illness/Hospitalization: Yes (Office notes were reviewed for this month authored by Dr. Wright and nurse p) [facility] Medical History (Updated 08/21/24 @ 14:53 by Lou Marquez) Irregular heart beat Atrial fibrillation Former smoker Ulcer of right lower extremity Lower extremity edema Dyspnea on exertion Diastolic heart failure Acute lumbar myofascial strain Acute thoracic myofascial strain Back pain Debility, unspecified Return to work evaluation Right renal mass Angina of effort Acute hypokalemia Chest pain Non-ST elevation MA (NSTEMI) Atrial flutter Borderline type 2 diabetes mellitus GERD (gastroesophageal reflux disease) Acute low back pain Elevated random blood glucose level Anxiety and depression Menopausal disorder Melanoma Preoperative clearance Flu vaccine need Current use of prison 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 Obesity Elevated troponin (08/09/20) Hyperlipidemia Nicotine dependence History of pulmonary embolus (PE) (08/10/20) Essential hypertension Wound of left lower extremity Insomnia Change in skin mole Heart failure with preserved ejection fraction Shortness of breath Osteoarthritis of left knee Chronic pain of left knee Tobacco use Arthritis Acute hypoxemic respiratory failure (08/09/20) Home Medications ?Medication ?Instructions ?Recorded ?Last Taken ?Type atorvastatin 10 mg tablet (Lipitor) 10 mg PO DAILY #90 tabs 09/20/23 Unknown Rx baclofen 10 mg tablet 10 mg PO BID PRN muscle spas m #60 02/23/24 Unknown Rx tabs furosemide 40 mg tablet 40 mg PO QAM FLUID #90 tabs 07/24/24 08/21/24 Rx amlodipine 10 mg tablet 10 mg PO DAILY #90 tabs 11/13 Unknown Rx lisinopril 40 mg tablet 40 mg PO DAILY #90 tabs 11/13 Unknown Rx potassium chloride 20 mEq 20 meq PO DAILY SUPPLEMENT # 30 tabs 07/25/24 Unknown Rx tablet,extended release warfarin 4 mg tablet 4 mg PO QDAY #60 tabs Unknown Rx cephalexin 500 mg capsule 500 mg PO Q8H #30 caps 07/31 Unknown Rx Allergy/AdvReac Type Severity Reaction Status Date / Time latex Allergy Mild rash Verified 08/21/24 11:08 trazodone Allergy Mild Tingling Verified 08/21/24 11:08 coconut Allergy Unknown PT UNABLE Verified 08/21/24 11:09 TO RESPOND-NEEDS F/U Fish Containing Products Allergy Unknown PT UNABLE Verified 08/21/24 11:09 TO RESPOND-NEEDS F/U propoxyphene (From Allergy Hives Verified 08/21/24 11:08 Darvocet-N) acetaminophen (From AdvReac Intermediate Nausea/Vom/ Verified 08/21/24 11:08 Darvocet-N) Diarrhea Family History Other Anxiety Arthritis Depression Hypertension Thyroid disorder Surgical History H/O tubal ligation History of cholecystectomy H/O elbow surgery Social History housing: house Smoking Status: Former smoker alcohol intake: never substance use type: does not use what type of physical activity do you participate in: walking frequency: 5-6 times per week ROS ROS ED Constitutional Constitutional ED: Denies chills, fever(s), subjective, sweats or weight loss Eyes Eyes: Denies blurry vision ENT ENT ED: Denies ear pain, rhinorrhea or sore throat Cardiovascular Cardiovascular: Reports chest pain, orthopnea, palpitations and racing heartbeat ; Denies paroxysmal nocturnal dyspnea Respiratory/Chest Respiratory/Chest: Reports dyspnea, dyspnea on exertion and orthopnea; Denies cough or paroxysmal nocturnal dyspnea Gastrointestinal Gastrointestinal: Denies abdominal pain, diarrhea, nausea or vomiting Genitourinary Genitourinary ED: Denies dysuria, hematuria or urinary frequency Musculoskeletal Musculoskeletal: Denies arthralgias or myalgias Integumentary Reports other Details: Venous stasis dermatitis lower extremity. Neurologic Neurologic: Reports weakness Endocrine Endocrinology: Denies cold intolerance or heat intolerance Hematologic/Lymphatic Hematologic/Lymphatic: Reports systems reviewed and no addt'l complaints, except as documented EXAM Physical Exam Const Vital Signs: 08/21/24 11:10 08/21/24 11:12 08/21/24 11:14 Temperature 97 F L 97.7 F L Temperature Source Temporal Temporal Pulse Rate 138 H 128 H Respiratory Rate 23 H 27 H Respiratory Effort Short of Breath Labored Blood Pressure 177/117 H 177/117 H Blood Pressure Mean 137 137 Pulse Ox 95 97 Oxygen Delivery Method Room Air Room Air 08/21/24 12:08 08/21/24 12:12 Temperature 98.4 F Temperature Source Oral Pulse Rate 126 H 133 H Respiratory Rate 24 H 24 H Respiratory Effort Blood Pressure 136/111 H 147/91 H Blood Pressure Mean 119 109 Pulse Ox 97 97 Oxygen Delivery Method Room Air Room Air Positive well nourished and well developed Constitutional Narrative: BMI is 36.8. General Appearance ED: well developed and pallor HEENT Reports moist mucous membranes HEENT Narrative: Head is atraumatic normocephalic. Ears normal. Nares patent. Eyes PERRL and EOMs intact bilaterally General Eye ED: Negative for pale conjunctiva or scleral icterus Neck no lymphadenopathy, supple and no JVD Neck Narrative: Unable to turn the patient has JVD due to body habitus. Chest Wall inspection of chest normal and palpation of chest normal Resp No normal respiratory effort and No clear to auscultation bilaterally Auscultation: rales bilateral base Cardio no murmurs Rate: tachycardic Rhythm: abnormal rhythm irregularly irregular GI normal to inspection, nondistended, normoactive bowel sounds, non-tender, non- distended and no masses; Negative for hepatosplenomegaly GI Narrative: There is no shifting dullness or fluid wave appreciated. Abdomen is protuberant. Back/Spine no CVA tenderness Back/Spine Narrative: There is sacral pitting edema. Extremity Extremity Narrative: Venous stasis dermatitis. Neuro oriented x3 and CN's II-XII intact bilaterally Sensorium / Orientation: alert Psych mental status grossly normal Skin no rashes or lesions noted, No no wounds and skin turgor normal General Skin Exam: pallor; Negative for jaundice MDM MDM MDM Narrative Medical decision making narrative: Patient is in all likelihood and congestive heart failure due to A-fib with RVR. Will rate control since she has chronic A-fib. She is on Coumadin. PT/INR was ordered. Appropriate blood work is ordered to assess renal function, electrolytes patient since her Lasix was increased from 20-40. Also troponin to rule out cardiac ischemia as a cause since she reports compliance with her diet. Lab Data Attestation: I reviewed the patient's lab results. Lab results narrative: CBC reveals microcytic anemia.This is not a new finding. Basic metabolic panel is remarkable and elevated BUN to creatinine ratio and glucose of 166 with a normal CO2 anion gap. Troponin is slightly elevated 36 most likely due to her heart failure. BNP is 3787. Labs: Laboratory Results - last 24 hr 08/21/24 11:35 WBC 7.9 RBC 4.85 Hgb 9.8 L Hct 34.9 L MCV 72.0 L MCH 20.2 L MCHC 28.1 L RDW Std Deviation 49.1 H RDW Coeff of Ele 19.6 H Plt Count 189 MPV 9.2 Immature Gran % (Auto) 0.400 Neut % (Auto) 77.3 H Lymph % (Auto) 15.3 L Callahan % (Auto) 5.2 Eos % (Auto) 1.0 Baso % (Auto) 0.8 Absolute Neuts (auto) 6.1 Absolute Lymphs (auto) 1.20 Nucleated RBC % 0 PT Cancelled INR Cancelled Sodium 139 Potassium 3.9 Chloride 105 Carbon Dioxide 21.3 Anion Gap 12 BUN 19 Creatinine 0.87 Estim Creat Clear Calc 73.62 Est GFR (MDRD) Non-Af 73 BUN/Creatinine Ratio 21.7 H Glucose 166 H Calcium 8.6 Total Bilirubin 0.84 AST 38 H ALT 27 Alkaline Phosphatase 84 Troponin T High Sens 36 H NT pro BNP II 3787 H Total Protein 6.5 Albumin 3.6 Globulin 2.9 Albumin/Globulin Ratio 1.2 Radiography Chest X-Ray - ED: 2 View and Read by ED Physician (Panel reviewed interpreted by me. Respiratory volumes is diminished. She does have evidence of cardiomegaly. Cardiac silhouette is normal. There is no effusion noted there may be slight congestion consistent with CHF. There is no curly B-lines. There is no evidence of infiltrate.) Diagnostic Testing: Clinical Impression(s) from Imaging Studies Chest X-Ray 08/21/24 11:32 IMPRESSION: Cardiomegaly with mild congestion. Reading Location: [facility] Rhythm Strip Rhythm Strip: A-fib Rate: 141 EKG Initial EKG: Attestation: I personally reviewed and interpreted this EKG as follows: Interpretation: Atrial Fibrillation (Rate is 139. This probably result represents a flutter with a variable block. QRS duration 80 ms. QT duration 290 ms. [place]ty[place] to the right. There is no ossific ST-T wave changes throughout. This is probably due to the a flutter with variable block.) Management Discussion w/another healthcare provider: Hospitalist (Hospitalist was paged for admission. Full admit PCU) and Multifocal Lens Inspector (Spoke Dr. Epifanio Dominguez. Will rate control with metoprolol. He requested 50 twice daily after admission. He will see her in the hospital. 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 [place] Discharge Date/Time: 08/21/24 14:20
[2024-08-21 11:45] LABS: Absolute Neutrophil Count 6.1 X10^3/uL (2.0-7.7); Basophil# 0.06 X10^3/uL; Basophil% 0.8 % (0-1); Eosinophil# 0.08 X10^3/uL; Hematocrit 34.9 % (37-47); Hemoglobin 9.8 g/dL (12.0-15.0); Lymphocyte % 15.3 % (19-41); Mean Corp Hgb Conc 28.1 g/dL (32-36); Mean Corpuscular Hgb 20.2 pg (27.0-32.0); Mean Platelet Vol. 9.2 fl (6.2-12.0); Monocyte# 0.41 X10^3/uL; Monocyte% 5.2 % (0-10); NRBC Flagged by Analyzer 0 % (0-5); Neutrophil # 6.07 X10^3/uL (2.7-7.7); Neutrophil % 77.3 % (47-70); Platelet Count 189 K/mm3 (150-450); RBC Distribution Width CV 19.6 % (11.6-14.6); RBC Distribution Width SD 49.1 fl (35.1-43.9); Red Blood Count 4.85 M/mm3 (4.2-5.4); White Blood Count 7.9 K/mm3 (4.4-11.0)
[2024-08-21 12:07] LABS: ALB/GLOB Ratio 1.2 RATIO (0.9-2.4); AST(SGOT) 38 U/L (<=31); Alanine Aminotransfer ALT/SGPT 27 U/L (<=34); Albumin, Serum 3.6 g/dL (3.4-4.8); Alkaline Phosphatase 84 U/L (35-104); Anion Gap 12 (5-15); BUN 19 mg/dL (4-19); BUN/Creat Ratio 21.7 RATIO (10-20); Calcium,Total 8.6 mg/dL (7.6-11.0); Carbon Dioxide 21.3 mmol/L (21.0-32.0); Chloride 105 mmol/L (98-108); Creatinine, Serum 0.87 mg/dL (0.70-1.20); EST Glomerular Filtration Rate 73 (>60); Estimated Creatinine Clearance 73.62 ml/min (50-250); Globulin 2.9 g/dL (2.2-4.2); Glucose 166 mg/dL (70-99); Potassium 3.9 mmol/L (3.3-5.1); Pro- Brain NATRIURETIC PEPTIDE 3787 pg/mL (<=900); Protein, Total 6.5 g/dL (5.9-8.4); Sodium Level 139 mmol/L (133-145); Total Bilirubin 0.84 mg/dL (0.00-1.30); Troponin T High Sensitivity 36 ng/L (<=14)
[2024-08-21] MEDS: Furosemide 100 MG/10 ML Vial 60 MG IV (12:08)
--- NOTE | 2024-08-21 12:38 | HP.PCM.HOS_ITS ---
[facility] - General General Date of Admission: 08/21/24 Date of Service: 08/21/24 Chief Complaint: Shortness of breath progressively worsening for 3 months. Dyspnea at rest, orthopnea and weight gain HPI Narrative ANDREIA ELAINE, is a 69 F with multiple comorbidities came to ED with extreme shortness of breath, dyspnea at rest, orthopnea, sleeping in the recliner for past 3 months along with lower extremity edema mild abdominal swelling. She stated she gained about 30 pounds in the last 3 months. She has wheezing and congestion but denies any chest pain pressure or tightness. She still smokes cigarettes sometimes although she had failed attempt of quitting in the past. On warfarin for A-fib. In ED, patient was found to have A-fib with RVR 139 beats minute. Chest x-ray individually reviewed and shows pulmonary congestion's, central involvement and cardiomegaly. [facility] Medical History Ulcer of right lower extremity Lower extremity edema Dyspnea on exertion Diastolic heart failure Acute lumbar myofascial strain Acute thoracic myofascial strain Back pain Debility, unspecified Return to work evaluation Right renal mass Angina of effort Acute hypokalemia Chest pain Non-ST elevation NC (NSTEMI) Atrial flutter Borderline type 2 diabetes mellitus GERD (gastroesophageal reflux disease) Acute low back pain Elevated random blood glucose level Anxiety and depression Menopausal disorder Melanoma Preoperative clearance Flu vaccine need Current use of [facility]cfp 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 Obesity Elevated troponin (08/09/20) Hyperlipidemia Nicotine dependence History of pulmonary embolus (PE) (08/10/20) Essential hypertension Wound of left lower extremity Insomnia Change in skin mole Heart failure with preserved ejection fraction Shortness of breath Osteoarthritis of left knee Chronic pain of left knee Tobacco use Arthritis Acute hypoxemic respiratory failure (08/09/20) Home Medications ?Medication ?Instructions ?Recorded ?Last Taken ?Type atorvastatin 10 mg tablet (Lipitor) 10 mg PO DAILY #90 tabs 09/20/23 Unknown Rx baclofen 10 mg tablet 10 mg PO BID PRN muscle spas m #60 02/23/24 Unknown Rx tabs furosemide 40 mg tablet 40 mg PO QAM FLUID #90 tabs 07/24/24 Unknown Rx amlodipine 10 mg tablet 10 mg PO DAILY #90 tabs 03/0 11/13 Unknown Rx lisinopril 40 mg tablet 40 mg PO DAILY #90 tabs 11/13 Unknown Rx potassium chloride 20 mEq 20 meq PO DAILY SUPPLEMENT # 30 tabs 07/25/24 Unknown Rx tablet,extended release warfarin 4 mg tablet 4 mg PO QDAY #60 tabs Unknown Rx cephalexin 500 mg capsule 500 mg PO Q8H #30 caps 07/31 Unknown Rx Allergy/AdvReac Type Severity Reaction Status Date / Time latex Allergy Mild rash Verified 08/21/24 11:08 trazodone Allergy Mild Tingling Verified 08/21/24 11:08 coconut Allergy Unknown PT UNABLE Verified 08/21/24 11:09 TO RESPOND-NEEDS F/U Fish Containing Products Allergy Unknown PT UNABLE Verified 08/21/24 11:09 TO RESPOND-NEEDS F/U propoxyphene (From Allergy Hives Verified 08/21/24 11:08 Darvocet-N) acetaminophen (From AdvReac Intermediate Nausea/Vom/ Verified 08/21/24 11:08 Darvocet-N) Diarrhea Family History Other Anxiety Arthritis Depression Hypertension Thyroid disorder Surgical History H/O tubal ligation History of cholecystectomy H/O elbow surgery Social History housing: house Smoking Status: Former smoker alcohol intake: never substance use type: does not use what type of physical activity do you participate in: walking frequency: 5-6 times per week ROS ROS Narrative Constitutional: Reports fatigue and weakness. No fever. HEENT: Reports systems reviewed and no addt'l complaints, except as documented Respiratory/Chest: As described in HPI. Extreme shortness of breath/orthopnea/dyspnea at rest. Cannot walk more than 10 feet without breathless/stopping CVS: Occasional chest congestion. Gastrointestinal: Denies coffee ground emesis, hematemesis or vomiting Genitourinary: Denies burning urination or new urinary tract symptoms Musculoskeletal: Denies acute joint pain or limited range of motion. No acute injury Neurologic: Denies seizure-like symptoms. skin: Tinea right leg superficial erosions from scratching Endocrinology: Reports systems reviewed and no addt'l complaints, except as documented Hematologic/Lymphatic: Reports systems reviewed and no addt'l complaints, except as documented Rest 14 ROS are negative except as mentioned in HPI Vital Signs Vital Signs Vital Signs: 08/21/24 11:10 08/21/24 11:12 08/21/24 11:14 Temperature 97 F L 97.7 F L Temperature Source Temporal Temporal Pulse Rate 138 H 128 H Respiratory Rate 23 H 27 H Respiratory Effort Short of Breath Labored Blood Pressure 177/117 H 177/117 H Blood Pressure Mean 137 137 Pulse Ox 95 97 Oxygen Delivery Method Room Air Room Air 08/21/24 12:08 Temperature Temperature Source Pulse Rate 126 H Respiratory Rate 24 H Respiratory Effort Blood Pressure 136/111 H Blood Pressure Mean 119 Pulse Ox 97 Oxygen Delivery Method Room Air Weight Weight: 221 lb 1.978 oz Body Mass Index (BMI) 36.8 Physical Exam Narrative General: Alert, Oriented x3, Cooperative HEENT: Atraumatic, PERRLA, EOMI, Normocephalic Oral: Oral mucosa dry. No Gingival or Mucosal Lesions/ Ulcerations Neck: Supple, bilateral JVD, Negative Carotid Bruits Chest wall/Lungs: Air entry diminished in all lung henderson. Bilateral expiratory wheezing and fine crackles. Cardiovascular: Irregular rhythm, A-fib RVR, No M/G/R Abdomen: Bowel Sounds Present, Soft, Non Tender, abdominal wall swelling : No dysuria. No renal angle tenderness. No suprapubic tenderness. Extremities: Bilateral 3-4+ pitting, thigh edema, Capillary Refill Less than 3 Seconds Skin: Tiny right lower leg erosion/superficial ulcer Musculoskeletal: No Tenderness to Palpation of Joints or Extremities. ROM restricted due to swelling. Neurological: Cranial nerves II-XII grossly intact, DTR 2+/4. No acute focal neurological deficit. Psych/Mental Status: Flat affect. In extreme distress and anxiety.. Results Lab / Micro Data 08/21/24 11:35 08/21/24 11:35 Labs: Laboratory Results - last 24 hr 08/21/24 11:35: WBC 7.9, RBC 4.85, Hgb 9.8 L, Hct 34.9 L, MCV 72.0 L, MCH 20.2 L , MCHC 28.1 L, RDW Std Deviation 49.1 H, RDW Coeff of Ele 19.6 H, Plt Count 189, MPV 9.2, Immature Gran % (Auto) 0.400, Neut % (Auto) 77.3 H, Lymph % (Auto) 15.3 L, [place] % (Auto) 5.2, Eos % (Auto) 1.0, Baso % (Auto) 0.8, Absolute Neuts (auto) 6.1, Absolute Lymphs (auto) 1.20, Nucleated RBC % 0, PT Cancelled, INR Cancelled, Sodium 139, Potassium 3.9, Chloride 105, Carbon Dioxide 21.3, Anion Gap 12, BUN 19, Creatinine 0.87, Estim Creat Clear Calc 73.62, Est GFR (MDRD) Non-Af 73, BUN/Creatinine Ratio 21.7 H, Glucose 166 H, Calcium 8.6, Total Bilirubin 0.84, AST 38 H, ALT 27, Alkaline Phosphatase 84, Troponin T High Sens 36 H, NT pro BNP II 3787 H, Total Protein 6.5, Albumin 3.6, Globulin 2.9, Albumin/Globulin Ratio 1.2 Rhythm Strip Rhythm Strip: A-fib Rate: 141 Imaging Radiology Impression Chest X-Ray 08/21/24 11:32 IMPRESSION: Cardiomegaly with mild congestion. Reading Location: [facility] Assessment & Plan Assessment/Plan (1) Acute exacerbation of CHF (congestive heart failure): (2) Paroxysmal atrial fibrillation with RVR: PLAN: Plan 69-year-old female admitted with 3 months of progressive worsening of shortness of breath, dyspnea at rest, orthopnea, anasarca and chest x-ray findings suggestive of heart failure exacerbation 1. Subacute debility/dyspnea at rest due to acute on chronic HFpEF: Patient is being admitted in PCU. Chest x-ray newly reviewed and shows pulmonary congestion/edema. 60 mg IV Lasix given in ER physician and then started on furosemide drip 10 mg/h. Heart failure core measures including intake and output, fluid restriction less than 1800 mL, daily weight monitoring, kidney and electrolytes monitoring. 2D echo ordered. Nitroglycerin ointment ordered for preload reduction 2. A-fib RVR and history of chronic PE.: Patient is still tachycardic. Heart rate 133 permanent. Metoprolol 5 mg IV given and then oral 25 mg twice daily. A-fib RVR mainly due to adrenergic response from heart failure. PT/INR ordered. On warfarin 4 mg daily continued. Tachycardia expected to get better with diuresis. 3. CAD/non-STEMI: Patient was last admitted in October 2022 for non-STEMI. At that time diagnostic cardiac cath showed EF 60%, normal LV wall motion and systolic function. No significant obstructive coronary vessels found. 4. Chronic left knee degenerative arthritis: PT and OT ordered. Pain can 5. Essential hypertension: Blood pressure is high in triage. Is getting better. Patient already on furosemide drip and metoprolol. Titrate according to blood pressure. 6. Chronic thoracoabdominal aortic aneurysm: Last seen in vascular surgery clinic in November 2022. CTA imaging at that time showed 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 largest in the mid/distal descending thoracic aorta. 7. DVT prophylaxis, high risk with history of chronic PE: On warfarin. PT/INR pending. Titrate the dose according to INR. 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 His sister is next to kin. After discussion of benefits/risks procedures involved with full code, DNR CC arrest and DNR CC, the patient opted for full code. Patient does want artificial life support including intubation, tube feed, ventilator and/chest compression, central venous catheter, vasopressor and DC shock if needed Total time spent in [id number] encounter in discussion of advanced directive 17 minutes. Echo 11/08/2022 Interpretation Summary Normal LV size. Mild concentric left ventricular hypertrophy. Mild to moderate (1-2+) tricuspid valve insufficiency. Mildly dilated aortic root. Dilated descending aorta. The estimated ejection fraction is 55 %. Left ventricular systolic function is normal. Stage 2 diastolic dysfunction. Laboratory Results 08/21/24 11:35: WBC 7.9, RBC 4.85, Hgb 9.8 L, Hct 34.9 L, MCV 72.0 L, MCH 20.2 L , MCHC 28.1 L, RDW Std Deviation 49.1 H, RDW Coeff of Ele 19.6 H, Plt Count 189, MPV 9.2, Immature Gran % (Auto) 0.400, Neut % (Auto) 77.3 H, Lymph % (Auto) 15.3 L, [place] % (Auto) 5.2, Eos % (Auto) 1.0, Baso % (Auto) 0.8, Absolute Neuts (auto) 6.1, Absolute Lymphs (auto) 1.20, Nucleated RBC % 0, PT Cancelled, INR Cancelled, Sodium 139, Potassium 3.9, Chloride 105, Carbon Dioxide 21.3, Anion Gap 12, BUN 19, Creatinine 0.87, Estim Creat Clear Calc 73.62, Est GFR (MDRD) Non-Af 73, B UN/Creatinine Ratio 21.7 H, Glucose 166 H, Calcium 8.6, Total Bilirubin 0.84, A ST 38 H, ALT 27, Alkaline Phosphatase 84, Troponin T High Sens 36 H, NT pro BNP II 3787 H, Total Protein 6.5, Albumin 3.6, Globulin 2.9, Albumin/Globulin Ratio 1.2 Clinical Impression(s) from Imaging Studies Chest X-Ray 08/21/24 11:32 IMPRESSION: Cardiomegaly with mild congestion. Reading [facility] Charges/Coding Visit Charges Inpatient E&M: 71114 Init Hosp L3 Procedures Hospitalists Procedures: 28310 Advncd Care Plan 30 Min
[2024-08-21] MEDS: Metoprolol Tartrate 5 MG/5 ML Vial IV (12:55)
[2024-08-21 13:33] LABS: International Normalized Ratio 1.8
[2024-08-21 13:41] LABS: Magnesium 1.8 mg/dL (1.5-2.2); Phosphorus 2.9 mg/dL (2.7-4.5)
[2024-08-21 14:05] LABS: Troponin T High Sens 2 HR 44 ng/L (<=14)
[2024-08-21] MEDS: Furosemide 500 MG in Empty Viaflex 50 mL 1 EACH CONT INF (14:12)
[2024-08-21] MEDS: Nitroglycerin Oint 1 INCH PACKET TD ×2 (14:13→23:44)
--- NOTE | 2024-08-21 14:27 | ECHOD_ITS ---
Reason For Study Reason For Study: SOB/Dyspnea Procedure This was a 2D Doppler, Color Flow transthoracic echocardiogram. Exam performed portable in ICU/CCU. Left Ventricle Normal LV size. Mild concentric left ventricular hypertrophy. The left ventricular ejection fraction is 20 %. There is severe global hypokinesis of the left ventricle. Right Ventricle Normal RV size. Normal systolic function. Atria The left atrium is moderately enlarged. The right atrium is mildly enlarged. Mitral Valve Bileaflet diffuse mitral valve thickening. Mild-Moderate (1-2+) eccentric mitral valve insufficiency. Tricuspid Valve Normal tricuspid valve. Mild to moderate (1-2+) tricuspid valve insufficiency. Pulmonary artery systolic pressure is 40 mmHg. Aortic Valve Trisinus/trileaflet aortic valve. Mild (1+) aortic valve insufficiency. Pulmonic Valve Normal pulmonic valve. Great Vessels Mildly dilated aortic root. The pulmonary artery is normal size. Inferior vena cava collapse with respiration. Pericardium/Pleural No pericardial effusion. MMode/2D Measurements & Calculations LVIDd: 4.8 cm IVSd: 1.5 cm Ao root diam: 4.2 cm LVIDs: 4.1 cm LVPWd: 1.2 cm RVDd: 4.2 cm FS: 15.0 % asc Aorta Diam: 4.8 cm LAV(MOD-bp): 103.1 ml LVAd ap4: 32.5 cm2 LAV(MOD-bp) Indexed: 52.1 ml/m2 LVLd ap4: 7.9 cm LAV(MOD-sp2): 96.1 ml EDV(MOD-sp4): 110.6 ml LAV(MOD-sp4): 109.3 ml EDV(sp4-el): 113.4 ml LVAs ap4: 27.1 cm2 LVLs ap4: 7.9 cm ESV(MOD-sp4): 76.5 ml ESV(sp4-el): 78.9 ml EF(MOD-sp4): 30.8 % EF(sp4-el): 30.4 % SV(MOD-sp4): 34.1 ml SV(sp4-el): 34.5 ml LA A4 area: 30.4 cm2 SI(MOD-sp4): 17.2 ml/m2 LA dimension(2D): 5.9 cm RA A4 area: 25.3 cm2 TAPSE: 1.6 cm Doppler Measurements & Calculations MV E max graham: 131.0 cm/sec MV V2 max: 185.8 cm/sec Ao V2 max: 133.5 cm/sec MV max P.9 mmHg Ao max P.3 mmHg MV V2 mean: 92.7 cm/sec MV mean P.6 mmHg MV V2 VTI: 23.4 cm AI max graham: 384.4 cm/sec LV V1 max: 97.2 cm/sec MR max graham: 487.3 cm/sec AI max P.3 mmHg LV V1 max P.9 mmHg MR max P.0 mmHg AI dec slope: 280.4 cm/sec2 AI P1/2t: 401.5 msec PA V2 max: 70.9 cm/sec TR max graham: 300.7 cm/sec TR max P.2 mmHg ECHO/Echo Complete Interpretation Summary Normal LV size. The left ventricular ejection fraction is 20 %. There is severe global hypokinesis of the left ventricle. The left atrium is moderately enlarged. Mild-Moderate (1-2+) eccentric mitral valve insufficiency. Mildly dilated aortic root. The right atrium is mildly enlarged. Ordering Physician: Iglesia Benson Referring Physician: Abdulaziz Ackerman Performed By: Mason Reyes RCS
--- NOTE | 2024-08-21 16:40 | PCM.CONS.C ---
Assessment & Plan Assessment/Plan (1) Heart failure with reduced ejection fraction: PLAN: Patient presents with a 3-month history of progressive dyspnea on exertion which has gotten much worse over the last 3 days. She reports a 30 pound weight gain over 3 months she has had increasing lower extremity edema and weeping sores. The patient has intermittently been on Lasix in her home environment. She had a remote history of a catheterization in October 2022 which showed a normal EF of 60% normal LAD and left main trunk with mild circumflex and RCA disease. Echo done today shows an EF of 20% in a global fashion. There were no segmental wall motion abnormalities. The patient's troponins were minimally elevated at 36 and 44. She denies any chest pain at this point in time. The patient is diuresing with IV Lasix. Given her new severe LV dysfunction I recommend we increase her guideline directed medical therapy as blood pressure and heart rate will tolerate. We should discontinue the amlodipine. She should be placed on metoprolol succinate 50 mg twice daily for rate control and treating her LV dysfunction. Would not reinstitute her lisinopril at half dose 20 mg every morning starting tomorrow morning. I recommend discontinuing the potassium supplement and placing her on spironolactone 25 mg daily starting this evening. Should monitor basic metabolic panel every morning x 3 days to monitor her renal function which was normal on admission. The patient is also anemic with a hemoglobin of 9.8. (2) Paroxysmal atrial fibrillation with RVR: PLAN: Patient is atrial fibrillation rate is appropriately increased given her cardiac decompensation and heart failure. We will try to better control that by increasing her metoprolol succinate to 50 mg twice daily. She should be continued on Coumadin for the time being and monitor her hemoglobin closely. INR was 1.8 today on admission. She has been on Coumadin long-term but most recent INRs in the chart are not therapeutic. Target INR would be 2?3. (3) Microcytic anemia: PLAN: Will defer to the primary service to evaluate the patient's anemia. 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 This has been monitored by Dr. Dodson in the past with a CTA which showed a maximum diameter of 4.9 cm in the mid descending thoracic aorta November 2022. At this point in time given the patient's morbid obesity, her pulmonary insufficiency, and her acute heart failure exacerbation she is not a candidate for further evaluation and treatment surgically for this thoracicoabdominal aneurysm at this time in my opinion. (5) Current use of senior living 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: PLAN: Patient has been on Coumadin long-term for her atrial fibrillation. Her INR today was 1.8 is noted. PLAN: Plan 1. Will titrate guideline directed medical therapy for heart failure with reduced ejection fraction as tolerated. 2. Patient would probably benefit from SGLT2 inhibitor if financially viable. 3. Continue with supplemental oxygen as tolerated. 4. Once titrated to maximum tolerated dose of guideline directed medical therapy would repeat echocardiogram 6 to 12 weeks later. 5. Will need to strictly control blood pressure given the patient's history of thoracoabdominal aneurysm. HPI Consult Data Date of Consult: 08/21/24 HPI Narrative Reason for Consultation: CHF HPI Narrative: ANDREIA ELAINE, is a 69 F who presents patient presents with progressive dyspnea on exertion and shortness of breath at rest. She also complains of orthopnea and has been sleeping in her recliner chair for the last 3 months. Patient has also noticed a 30 pound weight gain over the last 3 months and has developed weeping sores on her right lower extremity. She had been intermittently having taking increased doses of Lasix prescribed by her internal medicine team. She actually lost about 8 pounds the last time she was evaluated. This was July 31, 2024. The patient came in today because she has had progressive dyspnea on exertion and has not been able to get rid of the extra fluid. She does have a history of atrial fibrillation is on Coumadin in the home environment. INR today was 1.8. The patient was placed on oxygen the emergency room and took it off. She claims she has never had it offered to her but the nursing staff reports that she has refused oxygen. The patient has been treated with wet-to-dry dressing changes and wraps to her lower extremity. She also carries a history of pulmonary insufficiency and morbid obesity. The patient's N-terminal BNP was 3206 on July 24, 2024 today it was 3787. Her BMP was within normal limits as were the calcium magnesium and phosphate she is anemic with a hemoglobin of 9.8. The patient's heart rate was in the 140 bpm range appears to be atrial fibrillation. At rest it goes down in the 120 range but when she gets up to go to the restroom it jumps up in the 150s. Her O2 saturation also dropped to 87 when she is up ambulating. The chest x-ray done today showed congestion consistent with volume overload. Patient's troponins were minimally elevated at 36 and then 44. She denies any chest pain at this point in time. But she is on Nitropaste which will assist with her pulmonary congestion. The patient is experiencing a significant diuresis since admission. The patient had a cath in October 2022 which showed normal LV function EF of 60% normal LAD and left main trunk with mild disease in the circumflex and right coronary arteries. An echocardiogram done today showed left ventricular ejection fraction of 20% with severe global LV dysfunction. The RV was normal there was moderate left atrial enlargement mild right atrial enlargement 1-2+ mitral regurgitation 1-2+ tricuspid regurgitation with a pulmonary artery pressure of 40 mmHg. There was also 1+ AI. [facility] Medical History Irregular heart beat Atrial fibrillation Former smoker Ulcer of right lower extremity Lower extremity edema Dyspnea on exertion Diastolic heart failure Acute lumbar myofascial strain Acute thoracic myofascial strain Back pain Debility, unspecified Return to work evaluation Right renal mass Angina of effort Acute hypokalemia Chest pain Non-ST elevation DE (NSTEMI) Atrial flutter Borderline type 2 diabetes mellitus GERD (gastroesophageal reflux disease) Acute low back pain Elevated random blood glucose level Anxiety and depression Menopausal disorder Melanoma Preoperative clearance Flu vaccine need Current use of senior living 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 Obesity Elevated troponin (08/09/20) Hyperlipidemia Nicotine dependence History of pulmonary embolus (PE) (08/10/20) Essential hypertension Wound of left lower extremity Insomnia Change in skin mole Heart failure with preserved ejection fraction Shortness of breath Osteoarthritis of left knee Chronic pain of left knee Tobacco use Arthritis Acute hypoxemic respiratory failure (08/09/20) Home Medications ?Medication ?Instructions ?Recorded ?Last Taken ?Type atorvastatin 10 mg tablet (Lipitor) 10 mg PO DAILY #90 tabs 09/20/23 Unknown Rx baclofen 10 mg tablet 10 mg PO BID PRN muscle spasm #60 02/23/24 Unknown Rx tabs furosemide 40 mg tablet 40 mg PO QAM FLUID #90 tabs 07/24/24 08/21/24 Rx amlodipine 10 mg tablet 10 mg PO DAILY #90 tabs 07/25/24 Unknown Rx lisinopril 40 mg tablet 40 mg PO DAILY #90 tabs 07/25/24 Unknown Rx potassium chloride 20 mEq 20 meq PO DAILY SUPPLEMENT #30 tabs 07/25/24 Unknown Rx tablet,extended release cephalexin 500 mg capsule 500 mg PO Q8H #30 caps 07/31/24 Unknown Rx warfarin 6 mg tablet (Jantoven) 6 mg PO DAILY ATRIL FIBRILLATION 08/21/24 Unknown History Allergy/AdvReac Type Severity Reaction Status Date / Time latex Allergy Mild rash Verified 08/21/24 11:08 trazodone Allergy Mild Tingling Verified 08/21/24 11:08 coconut Allergy Unknown PT UNABLE Verified 08/21/24 11:09 TO RESPOND-NEEDS F/U Fish Containing Products Allergy Unknown PT UNABLE Verified 08/21/24 11:09 TO RESPOND-NEEDS F/U propoxyphene (From Allergy Hives Verified 08/21/24 11:08 Darvocet-N) acetaminophen (From AdvReac Intermediate Nausea/Vom/ Verified 08/21/24 11:08 Darvocet-N) Diarrhea Family History Other Anxiety Arthritis Depression Hypertension Thyroid disorder Surgical History H/O tubal ligation History of cholecystectomy H/O elbow surgery Social History housing: house Smoking Status: Former smoker alcohol intake: never substance use type: does not use what type of physical activity do you participate in: walking frequency: 5-6 times per week ROS Constitutional Constitutional: Reports as per HPI Eyes Eyes: Reports systems reviewed and no addt'l complaints, except as documented ENT HEENT: Reports systems reviewed and no addt'l complaints, except as documented Cardiovascular Cardiovascular: Reports as per HPI Respiratory/Chest Respiratory/Chest: Reports as per HPI Gastrointestinal Gastrointestinal: Reports systems reviewed and no addt'l complaints, except as documented Genitourinary Genitourinary: Reports as per HPI Musculoskeletal Musculoskeletal: Reports as per HPI Integumentary Integumentary: Reports as per HPI Neurologic Neurologic: Reports systems reviewed and no addt'l complaints, except as documented Psychiatric Psychiatric: Reports systems reviewed and no addt'l complaints, except as documented Endocrine Endocrinology: Reports systems reviewed and no addt'l complaints, except as documented Hematologic/Lymphatic Hematologic/Lymphatic: Reports systems reviewed and no addt'l complaints, except as documented Allergic/Immunologic Allergic/Immunologic: Reports systems reviewed and no addt'l complaints, except as documented Physical Exam Narrative Patient becomes profoundly dyspneic with minimal walking to the bathroom and back to the bed. Const alert and oriented x3 HEENT normocephalic Eyes EOMs intact bilaterally Neck no JVD and no carotid bruits Neck Narrative: Very thick neck. Resp Resp Narrative: Patient is tachypneic Auscultation: rales bilateral 1/[address] up Cardio Cardio Narrative: Patient's heart tones are distant and difficult to auscultate given the pulmonary situation. Rate: tachycardic Rhythm: abnormal rhythm irregularly irregular Heart Sounds: S1 normal and S2 normal; Negative for click, gallop or murmur GI GI Narrative: Obese Extremity General Extremity: edema bilateral lower extremity Details: severe Skin Skin Narrative: Weeping excoriated areas on the right lower extremity. Neuro Neuro Narrative: Alert and oriented x 3. Psych Psych Narrative: Patient gives very short and michael answers to questions. Risk Stratification Risk Stratification Applicable: Yes Age >/= 65: Yes >/= 3 CAD Risk Factors (HTN, HLD, DM, family hx of CAD, or current smoker): No Aspirin Use in the Past 7 Days: No Severe Angina (>/= episodes in 24 hours): No EKG ST Changes >/= 0.5mm: No Positive Cardiac Marker: Yes CONCHA Risk Stratification Score: 2 CONCHA % Risk: 8% Risk Charges/Coding Visit Charges Inpatient E&M: 83091 Init Hosp L3 Objective Data Vital Signs: Vital Signs Temp Pulse Resp BP Pulse Ox O2 Del Method O2 Flow Rate 97.6 F L 114 H 25 H 119/93 H 77 Room Air 3 08/21/24 16:00 08/21/24 16:00 08/21/24 16:00 08/21/24 16:00 08/21/24 15:03 08/21/24 14:54 08/21/24 14:20 Oxygen Flow Rate (L/min) 3 Oxygen Delivery Method Room Air Weight: 214 lb 1.102 oz Body Mass Index (BMI) 35.6 Lab / Micro Data Attestation: I reviewed the patient's lab results. 08/21/24 11:35 08/21/24 11:35 Labs: Laboratory Results - last 24 hr 08/21/24 11:35: WBC 7.9, RBC 4.85, Hgb 9.8 L, Hct 34.9 L, MCV 72.0 L, MCH 20.2 L, MCHC 28.1 L, RDW Std Deviation 49.1 H, RDW Coeff of Ele 19.6 H, Plt Count 189, MPV 9.2, Immature Gran % (Auto) 0.400, Neut % (Auto) 77.3 H, Lymph % (Auto) 15.3 L, Marion % (Auto) 5.2, Eos % (Auto) 1.0, Baso % (Auto) 0.8, Absolute Neuts (auto) 6.1, Absolute Lymphs (auto) 1.20, Nucleated RBC % 0, PT Cancelled, INR Cancelled, Sodium 139, Potassium 3.9, Chloride 105, Carbon Dioxide 21.3, Anion Gap 12, BUN 19, Creatinine 0.87, Estim Creat Clear Calc 73.62, Est GFR (MDRD) Non-Af 73, BUN/Creatinine Ratio 21.7 H, Glucose 166 H, Calcium 8.6, Total Bilirubin 0.84, AST 38 H, ALT 27, Alkaline Phosphatase 84, Troponin T High Sens 36 H, NT pro BNP II 3787 H, Total Protein 6.5, Albumin 3.6, Globulin 2.9, Albumin/Globulin Ratio 1.2 08/21/24 13:08: PT 21.0 H, INR 1.8, Phosphorus 2.9, Magnesium 1.8 08/21/24 13:42: Troponin T Hi Sens 2 Hr 44 H Rhythm Strip Rhythm Strip: A-fib Rate: 125 Cardiology Labs/Tests 08/21/24 11:35: WBC 7.9, RBC 4.85, Hgb 9.8 L, Hct 34.9 L, MCV 72.0 L, MCH 20.2 L, MCHC 28.1 L, Plt Count 189, MPV 9.2, Immature Gran % (Auto) 0.400, Neut % (Auto) 77.3 H, Lymph % (Auto) 15.3 L, Marion % (Auto) 5.2, Eos % (Auto) 1.0, Baso % (Auto) 0.8, Absolute Neuts (auto) 6.1, Nucleated RBC % 0, PT Cancelled, INR Cancelled, Sodium 139, Potassium 3.9, Chloride 105, Carbon Dioxide 21.3, Anion Gap 12, BUN 19, Creatinine 0.87, Est GFR (MDRD) Non-Af 73, BUN/Creatinine Ratio 21.7 H, Glucose 166 H, Calcium 8.6, Total Bilirubin 0.84 08/21/24 13:08: PT 21.0 H, INR 1.8, Phosphorus 2.9, Magnesium 1.8 Rhythm: EKG: ECHO: Stress Test: Cardiac Cath: PCI: CT Surgery: Holter monitor: EPS: PPM: CXR: Chest CT Scan: Radiography Diagnostic Testing: Radiology Impression Chest X-Ray 08/21/24 11:32 IMPRESSION: Cardiomegaly with mild congestion. Reading Location: [facility] Echocardiogram 08/21/24 14:27 Interpretation Summary Normal LV size. The left ventricular ejection fraction is 20 %. There is severe global hypokinesis of the left ventricle. The left atrium is moderately enlarged. Mild-Moderate (1-2+) eccentric mitral valve insufficiency. Mildly dilated aortic root. The right atrium is mildly enlarged. Ordering Physician: Iglesia Benson Referring Physician: Abdulaziz Ackerman Performed By: Mason Reyes RCS
[2024-08-21] MEDS: Metoprolol Tartrate 25 MG Tablet PO (16:50)
[2024-08-21] MEDS: Acetaminophen 500 MG Tablet 1000 MG PO ×2 (16:50→21:28)
[2024-08-21] MEDS: Potassium Chloride Oral Tablet 20 MEQ PO (16:51)
[2024-08-21 17:26] LABS: Troponin T High Sens 4 HR 45 ng/L (<=14)
--- NOTE | 2024-08-21 17:37 | CASEMGMT ---
Care Management Face to Face with patient for initial transition planning/care coordination assessment in the ED.? This play writer introduced self and role at [facility]. Patient alert and oriented. Patient willing to participate in assessment and is able to answer all questions appropriately.? Care providers, pharmacy, and demographics verified. Admitting Diagnosis: CHF exacerbation Other diagnosis history: ?afib, heart failure, hyperlipidemia, borderline diabetes PCP: ?[facility] Specialists: None Preferred Pharmacy: [facility] Insurance: ?Medicare Prescription Benefit: None, patient reports to paying out of pocket Living Will/HPOA: ?completed LNOK: sister Living Arrangements: Lives alone in mobile home, reports to being independent with ADLs and IADLs but gets ?winded? easily Transportation: patient drives DME: ?blood pressure cuff HHC: none SNF/Rehab: none Community Resources: none Behavioral Health History: denies Patient goals: Patient wishes to discharge home, denies need for home health care at this time. Patient denies any further needs or concerns at this time. Disposition Plan: admission to acute; RN CM/SW to follow for discharge planning needs that may arise. Pina Gaona, CLINICAL REHABILITATION SPECIALIST, RECRUITING OPERATIONS CONSULTANT
[2024-08-21] MEDS: Spironolactone 25 MG Tablet PO (18:31)
[2024-08-21] MEDS: Atorvastatin Calcium 10 MG Tablet PO (21:27)
[2024-08-21] MEDS: Senna/Docusate Sodium 1 Tablet 2 TABLET PO (21:27)
[2024-08-21] MEDS: Metoprolol(XL)Succ 50 MG Tablet PO (21:28)
[2024-08-22] VITALS (9 sets, daily range): BP systolic 95–114; BP diastolic 64–84; PULSE 73–98; RESP 18–22; TEMP 36.1–36.4; O2SAT 95–99; BMI 35.4
[2024-08-22] MEDS: oxyCODONE 5 MG Tablet PO ×3 (00:02→21:17)
[2024-08-22] MEDS: Baclofen 10 MG Tablet PO (02:03)
[2024-08-22] MEDS: Ketorolac 15 MG/ML Vial IV (02:29)
--- NOTE | 2024-08-22 02:37 | NURSING ---
Pt voicing continued severe back pain. PRN and scheduled medications administered with minimal to no relief. MD notified, new orders received,see EMAR for details. K-Pad applied. Offered out of bed to chair: Pt refused. Support and education provided. No additional needs or concerns verbalized or identified.
[2024-08-22 04:21] LABS: International Normalized Ratio 1.9; Prothrombin Time (Protime)PT. 22.6 SECONDS (11.7-14.9)
[2024-08-22 04:50] LABS: Anion Gap 12 (5-15); BUN 22 mg/dL (4-19); BUN/Creat Ratio 18.8 RATIO (10-20); Calcium,Total 8.3 mg/dL (7.6-11.0); Carbon Dioxide 25.1 mmol/L (21.0-32.0); Chloride 104 mmol/L (98-108); Creatinine, Serum 1.19 mg/dL (0.70-1.20); EST Glomerular Filtration Rate 50 (>60); Glucose 104 mg/dL (70-99); Potassium 3.7 mmol/L (3.3-5.1); Sodium Level 140 mmol/L (133-145)
[2024-08-22] MEDS: Acetaminophen 500 MG Tablet 1000 MG PO ×3 (05:00→20:47)
[2024-08-22 05:12] LABS: Cholesterol 105 mg/dL (<=200); High Density Lipoprotein 26 mg/dL; Low Density Lipoprotein Calc. 64 mg/dL; Triglycerides 74 mg/dL; Very Low Density Lipoprotein 15 mg/dL (5-40); cholesterol:hdl ratio screen 4.09
[2024-08-22 05:38] LABS: Absolute Neutrophil Count 4.7 X10^3/uL (2.0-7.7); Basophil# 0.07 X10^3/uL; Eosinophil# 0.13 X10^3/uL; Eosinophils% 1.8 % (0-5); Hematocrit 33.2 % (37-47); Hemoglobin 9.5 g/dL (12.0-15.0); Lymphocyte % 23.2 % (19-41); Mean Corp Hgb Conc 28.6 g/dL (32-36); Mean Corpuscular Hgb 20.4 pg (27.0-32.0); Mean Corpuscular Volume 71.2 fL (81-99); Mean Platelet Vol. 9.4 fl (6.2-12.0); Monocyte# 0.73 X10^3/uL; NRBC Flagged by Analyzer 0 % (0-5); Neutrophil # 4.65 X10^3/uL (2.7-7.7); Neutrophil % 63.5 % (47-70); Platelet Count 197 K/mm3 (150-450); RBC Distribution Width CV 19.8 % (11.6-14.6); Red Blood Count 4.66 M/mm3 (4.2-5.4); White Blood Count 7.3 K/mm3 (4.4-11.0)
--- NOTE | 2024-08-22 08:43 | PCM.PN.HOSP ---
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 (08/21/24) Objective Data Objective Data Vital Signs: Vital Signs Temp Pulse Resp BP Pulse Ox O2 Del Method O2 Flow Rate 98.0 F 77 16 105/64 95 Room Air 3 08/21/24 20:00 08/22/24 06:23 08/21/24 20:00 08/22/24 06:23 08/22/24 02:44 08/22/24 02:44 08/21/24 22:00 Oxygen Flow Rate (L/min) 3 Oxygen Delivery Method Room Air Weight: 212 lb 11.937 oz Body Mass Index (BMI) 35.4 Intake & Output: Intake and Output for Last 24 Hours 08/20/24 08/21/24 08/22/24 23:59 23:59 23:59 Intake Total 360 / 600 480 / 480 Output Total 1200 / 1200 Balance 360 / -400 -720 / -720 Lab / Micro Data 08/22/24 05:16 08/22/24 03:55 Labs: Laboratory Results - last 24 hr 08/21/24 11:35: WBC 7.9, RBC 4.85, Hgb 9.8 L, Hct 34.9 L, MCV 72.0 L, MCH 20.2 L, MCHC 28.1 L, RDW Std Deviation 49.1 H, RDW Coeff of Ele 19.6 H, Plt Count 189, MPV 9.2, Immature Gran % (Auto) 0.400, Neut % (Auto) 77.3 H, Lymph % (Auto) 15.3 L, [place] % (Auto) 5.2, Eos % (Auto) 1.0, Baso % (Auto) 0.8, Absolute Neuts (auto) 6.1, Absolute Lymphs (auto) 1.20, Nucleated RBC % 0, PT Cancelled, INR Cancelled, Sodium 139, Potassium 3.9, Chloride 105, Carbon Dioxide 21.3, Anion Gap 12, BUN 19, Creatinine 0.87, Estim Creat Clear Calc 73.62, Est GFR (MDRD) Non-Af 73, BUN/Creatinine Ratio 21.7 H, Glucose 166 H, Calcium 8.6, Total Bilirubin 0.84, AST 38 H, ALT 27, Alkaline Phosphatase 84, Troponin T High Sens 36 H, NT pro BNP II 3787 H, Total Protein 6.5, Albumin 3.6, Globulin 2.9, Albumin/Globulin Ratio 1.2 08/21/24 13:08: PT 21.0 H, INR 1.8, Phosphorus 2.9, Magnesium 1.8 08/21/24 13:42: Troponin T Hi Sens 2 Hr 44 H 08/21/24 15:42: Troponin T Hi Sens 4Hr 45 H 08/22/24 03:55: PT 22.6 H, INR 1.9, Sodium 140, Potassium 3.7, Chloride 104, Carbon Dioxide 25.1, Anion Gap 12, BUN 22 H, Creatinine 1.19, Estim Creat Clear Calc 52.90, Est GFR (MDRD) Non-Af 50 L, BUN/Creatinine Ratio 18.8, Glucose 104 H, Calcium 8.3, Triglycerides 74, Cholesterol 105, LDL Cholesterol, Calc 64, VLDL Cholesterol 15, HDL Cholesterol 26 L, Cholesterol/HDL Ratio 4.09, TSH 3.580 08/22/24 05:16: WBC 7.3, RBC 4.66, Hgb 9.5 L, Hct 33.2 L, MCV 71.2 L, MCH 20.4 L, MCHC 28.6 L, RDW Std Deviation 49.0 H, RDW Coeff of Ele 19.8 H, Plt Count 197, MPV 9.4, Immature Gran % (Auto) 0.500, Neut % (Auto) 63.5, Lymph % (Auto) 23.2, [place] % (Auto) 10.0, Eos % (Auto) 1.8, Baso % (Auto) 1.0, Absolute Neuts (auto) 4.7, Absolute Lymphs (auto) 1.70, Nucleated RBC % 0 Radiography Diagnostic Testing: Radiology Impression Chest X-Ray 08/21/24 11:32 IMPRESSION: Cardiomegaly with mild congestion. Reading Location: [facility] Echocardiogram 08/21/24 14:27 Interpretation Summary Normal LV size. The left ventricular ejection fraction is 20 %. There is severe global hypokinesis of the left ventricle. The left atrium is moderately enlarged. Mild-Moderate (1-2+) eccentric mitral valve insufficiency. Mildly dilated aortic root. The right atrium is mildly enlarged. Ordering Physician: Iglesia Benson Referring Physician: Abdulaziz Ackerman Performed By: Mason Reyes RCS Rhythm Strip Rhythm Strip: A-fib Rate: 125 Physical Exam Narrative General: Alert, Oriented x3, Cooperative HEENT: Atraumatic, PERRLA, EOMI, Normocephalic Oral: Oral mucosa dry. No Gingival or Mucosal Lesions/ Ulcerations Neck: Supple, bilateral JVD, Negative Carotid Bruits Chest wall/Lungs: Air entry diminished in all lung henderson. Bilateral expiratory wheezing and fine crackles. Cardiovascular: Irregular rhythm, A-fib RVR, No M/G/R Abdomen: Bowel Sounds Present, Soft, Non Tender, abdominal wall swelling : No dysuria. No renal angle tenderness. No suprapubic tenderness. Extremities: Bilateral 3-4+ pitting, thigh edema, Capillary Refill Less than 3 Seconds Skin: Tiny right lower leg erosion/superficial ulcer Musculoskeletal: No Tenderness to Palpation of Joints or Extremities. ROM restricted due to swelling. Neurological: Cranial nerves II-XII grossly intact, DTR 2+/4. No acute focal neurological deficit. Psych/Mental Status: Flat affect. In extreme distress and anxiety.. Assessment & Plan Assessment/Plan (1) Acute exacerbation of CHF (congestive heart failure): (2) Paroxysmal atrial fibrillation with RVR: PLAN: Plan 69-year-old female admitted with 3 months of progressive worsening of shortness of breath, dyspnea at rest, orthopnea, anasarca and chest x-ray findings suggestive of heart failure exacerbation 1. Subacute debility/dyspnea at rest due to acute on chronic HFpEF: Patient is being admitted in PCU. Chest x-ray newly reviewed and shows pulmonary congestion/edema. 60 mg IV Lasix given in ER physician and then started on furosemide drip 10 mg/h. Heart failure core measures including intake and output, fluid restriction less than 1800 mL, daily weight monitoring, kidney and electrolytes monitoring. 2D echo ordered. Nitroglycerin ointment ordered for preload reduction 4/3: Dyspnea is much better and has resolved. Sitting comfortable. Discontinue nitroglycerin ointment as patient having headache. Discussed with the building architect consult consult reviewed. Continue furosemide drip 10 mg/h. Empagliflozin 10 mg daily. Spironolactone dose increased to 50 mg daily. Echo reviewed, global hypokinesis, EF 20%. 1-2+ MR. LA moderately enlarged RA mildly enlarged. Troponins mildly enlarged 36, 44 and 45. proBNP about 4000 overall suggestive of increased LV overload therefore due to cardiac demand ischemia. No need to repeat cath as patient was found of nonobstructive coronaries in October 2022 2. A-fib RVR and history of chronic PE.: Patient is still tachycardic. Heart rate 133 permanent. Metoprolol 5 mg IV given and then oral 25 mg twice daily. A-fib RVR mainly due to adrenergic response from heart failure. PT/INR ordered. On warfarin 4 mg daily continued. Tachycardia expected to get better with diuresis. 4/3: Metoprolol succinate 50 mg twice daily. 1 cardiac strip shows A-fib with heart rate in 30s. Currently her heart rate is in high 90s to low 100s. INR 1.9. Continue warfarin 6 mg daily 3. Nonobstructive CAD/non-STEMI: Patient was last admitted in October 2022 for non-STEMI. At that time diagnostic cardiac cath showed EF 60%, normal LV wall motion and systolic function. No significant obstructive coronary vessels found. 4. Chronic left knee degenerative arthritis: PT and OT ordered. Pain can 5. Essential hypertension: Blood pressure is high in triage. Is getting better. Patient already on furosemide drip and metoprolol. Titrate according to blood pressure. 4/3: Lisinopril 20 mg daily 6. Chronic thoracoabdominal aortic aneurysm: Last seen in vascular surgery clinic in November 2022. CTA imaging at that time showed 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 largest in the mid/distal descending thoracic aorta. Advised to continue follow-up with Dr. Tucker Dodson. 7. DVT prophylaxis, high risk with history of chronic PE: On warfarin. Living will/advanced directive/end of life care: Patient does not have living will or advanced directive or designated power of project hire for health. His sister is next to kin. After discussion of benefits/risks procedures involved with full code, DNR CC arrest and DNR CC, the patient opted for full code. Patient does want artificial life support including intubation, tube feed, ventilator and/chest compression, central venous catheter, vasopressor and DC shock if needed Total time spent in [id number] encounter in discussion of advanced directive 17 minutes. Laboratory Results 08/21/24 11:35: WBC 7.9, RBC 4.85, Hgb 9.8 L, Hct 34.9 L, MCV 72.0 L, MCH 20.2 L, MCHC 28.1 L, RDW Std Deviation 49.1 H, RDW Coeff of Ele 19.6 H, Plt Count 189, MPV 9.2, Immature Gran % (Auto) 0.400, Neut % (Auto) 77.3 H, Lymph % (Auto) 15.3 L, [place] % (Auto) 5.2, Eos % (Auto) 1.0, Baso % (Auto) 0.8, Absolute Neuts (auto) 6.1, Absolute Lymphs (auto) 1.20, Nucleated RBC % 0, PT Cancelled, INR Cancelled, Sodium 139, Potassium 3.9, Chloride 105, Carbon Dioxide 21.3, Anion Gap 12, BUN 19, Creatinine 0.87, Estim Creat Clear Calc 73.62, Est GFR (MDRD) Non-Af 73, BUN/Creatinine Ratio 21.7 H, Glucose 166 H, Calcium 8.6, Total Bilirubin 0.84, AST 38 H, ALT 27, Alkaline Phosphatase 84, Troponin T High Sens 36 H, NT pro BNP II 3787 H, Total Protein 6.5, Albumin 3.6, Globulin 2.9, Albumin/Globulin Ratio 1.2 08/21/24 13:08: PT 21.0 H, INR 1.8, Phosphorus 2.9, Magnesium 1.8 08/21/24 13:42: Troponin T Hi Sens 2 Hr 44 H 08/21/24 15:42: Troponin T Hi Sens 4Hr 45 H 08/22/24 03:55: PT 22.6 H, INR 1.9, Sodium 140, Potassium 3.7, Chloride 104, Carbon Dioxide 25.1, Anion Gap 12, BUN 22 H, Creatinine 1.19, Estim Creat Clear Calc 52.90, Est GFR (MDRD) Non-Af 50 L, BUN/Creatinine Ratio 18.8, Glucose 104 H, Calcium 8.3, Triglycerides 74, Cholesterol 105, LDL Cholesterol, Calc 64, VLDL Cholesterol 15, HDL Cholesterol 26 L, Cholesterol/HDL Ratio 4.09, TSH 3.580 08/22/24 05:16: WBC 7.3, RBC 4.66, Hgb 9.5 L, Hct 33.2 L, MCV 71.2 L, MCH 20.4 L, MCHC 28.6 L, RDW Std Deviation 49.0 H, RDW Coeff of Ele 19.8 H, Plt Count 197, MPV 9.4, Immature Gran % (Auto) 0.500, Neut % (Auto) 63.5, Lymph % (Auto) 23.2, [place] % (Auto) 10.0, Eos % (Auto) 1.8, Baso % (Auto) 1.0, Absolute Neuts (auto) 4.7, Absolute Lymphs (auto) 1.70, Nucleated RBC % 0 Clinical Impression(s) from Imaging Studies Chest X-Ray 08/21/24 11:32 IMPRESSION: Cardiomegaly with mild congestion. Echocardiogram 08/21/24 14:27 Interpretation Summary Normal LV size. The left ventricular ejection fraction is 20 %. There is severe global hypokinesis of the left ventricle. The left atrium is moderately enlarged. Mild-Moderate (1-2+) eccentric mitral valve insufficiency. Mildly dilated aortic root. The right atrium is mildly enlarged. Echo 11/08/2022 Interpretation Summary Normal LV size. Mild concentric left ventricular hypertrophy. Mild to moderate (1-2+) tricuspid valve insufficiency. Mildly dilated aortic root. Dilated descending aorta. The estimated ejection fraction is 55 %. Left ventricular systolic function is normal. Stage 2 diastolic dysfunction. Charges/Coding Visit Charges Inpatient E&M: 06527 Subs Hosp L3
--- NOTE | 2024-08-22 09:02 | PN.CARD_ITS ---
Subjective Subjective Patient seen and evaluated. Sitting on side of bed. Says that she is breathing much better. She does have some improvement in her pedal edema. Objective Data Vital Signs: Vital Signs Temp Pulse Resp BP Pulse Ox O2 Del Method O2 Flow Rate 98.0 F 77 16 105/64 95 Room Air 3 08/21/24 20:00 08/22/24 06:23 08/21/24 20:00 08/22/24 06:23 08/22/24 02:44 08/22/24 02:44 08/21/24 22:00 Oxygen Flow Rate (L/min) 3 Oxygen Delivery Method Room Air Weight: 212 lb 11.937 oz Body Mass Index (BMI) 35.4 Intake & Output: Intake and Output for Last 24 Hours 08/20/24 08/21/24 08/22/24 23:59 23:59 23:59 Intake Total 360 / 600 480 / 480 Output Total 1200 / 1200 Balance 360 / -400 -720 / -720 Lab / Micro Data 08/22/24 05:16 08/22/24 03:55 Labs: Laboratory Results - last 24 hr 08/21/24 11:35: WBC 7.9, RBC 4.85, Hgb 9.8 L, Hct 34.9 L, MCV 72.0 L, MCH 20.2 L , MCHC 28.1 L, RDW Std Deviation 49.1 H, RDW Coeff of Ele 19.6 H, Plt Count 189, MPV 9.2, Immature Gran % (Auto) 0.400, Neut % (Auto) 77.3 H, Lymph % (Auto) 15.3 L, [place] % (Auto) 5.2, Eos % (Auto) 1.0, Baso % (Auto) 0.8, Absolute Neuts (auto) 6.1, Absolute Lymphs (auto) 1.20, Nucleated RBC % 0, PT Cancelled, INR Cancelled, Sodium 139, Potassium 3.9, Chloride 105, Carbon Dioxide 21.3, Anion Gap 12, BUN 19, Creatinine 0.87, Estim Creat Clear Calc 73.62, Est GFR (MDRD) Non-Af 73, BUN/Creatinine Ratio 21.7 H, Glucose 166 H, Calcium 8.6, Total Bilirubin 0.84, AST 38 H, ALT 27, Alkaline Phosphatase 84, Troponin T High Sens 36 H, NT pro BNP II 3787 H, Total Protein 6.5, Albumin 3.6, Globulin 2.9, Albumin/Globulin Ratio 1.2 08/21/24 13:08: PT 21.0 H, INR 1.8, Phosphorus 2.9, Magnesium 1.8 08/21/24 13:42: Troponin T Hi Sens 2 Hr 44 H 08/21/24 15:42: Troponin T Hi Sens 4Hr 45 H 08/22/24 03:55: PT 22.6 H, INR 1.9, Sodium 140, Potassium 3.7, Chloride 104, Carbon Dioxide 25.1, Anion Gap 12, BUN 22 H, Creatinine 1.19, Estim Creat Clear Calc 52.90, Est GFR (MDRD) Non-Af 50 L, BUN/Creatinine Ratio 18.8, Glucose 104 H , Calcium 8.3, Triglycerides 74, Cholesterol 105, LDL Cholesterol, Calc 64, VLDL Cholesterol 15, HDL Cholesterol 26 L, Cholesterol/HDL Ratio 4.09, TSH 3.580 08/22/24 05:16: WBC 7.3, RBC 4.66, Hgb 9.5 L, Hct 33.2 L, MCV 71.2 L, MCH 20.4 L , MCHC 28.6 L, RDW Std Deviation 49.0 H, RDW Coeff of Ele 19.8 H, Plt Count 197, MPV 9.4, Immature Gran % (Auto) 0.500, Neut % (Auto) 63.5, Lymph % (Auto) 23.2, [place] % (Auto) 10.0, Eos % (Auto) 1.8, Baso % (Auto) 1.0, Absolute Neuts (auto) 4.7, Absolute Lymphs (auto) 1.70, Nucleated RBC % 0 Rhythm Strip Rhythm Strip: A-fib Rate: 125 Cardiology Labs/Tests 08/21/24 11:35: WBC 7.9, RBC 4.85, Hgb 9.8 L, Hct 34.9 L, MCV 72.0 L, MCH 20.2 L , MCHC 28.1 L, Plt Count 189, MPV 9.2, Immature Gran % (Auto) 0.400, Neut % (Auto) 77.3 H, Lymph % (Auto) 15.3 L, [place] % (Auto) 5.2, Eos % (Auto) 1.0, Baso % (Auto) 0.8, Absolute Neuts (auto) 6.1, Nucleated RBC % 0, PT Cancelled, INR Cancelled, Sodium 139, Potassium 3.9, Chloride 105, Carbon Dioxide 21.3, Anion Gap 12, BUN 19, Creatinine 0.87, Est GFR (MDRD) Non-Af 73, BUN/Creatinine Ratio 21.7 H, Glucose 166 H, Calcium 8.6, Total Bilirubin 0.84 08/21/24 13:08: PT 21.0 H, INR 1.8, Phosphorus 2.9, Magnesium 1.8 08/22/24 03:55: PT 22.6 H, INR 1.9, Sodium 140, Potassium 3.7, Chloride 104, Carbon Dioxide 25.1, Anion Gap 12, BUN 22 H, Creatinine 1.19, Est GFR (MDRD) Non-Af 50 L, BUN/Creatinine Ratio 18.8, Glucose 104 H, Calcium 8.3, Triglycerides 74, Cholesterol 105, VLDL Cholesterol 15, HDL Cholesterol 26 L, Cholesterol/HDL Ratio 4.09 08/22/24 05:16: WBC 7.3, RBC 4.66, Hgb 9.5 L, Hct 33.2 L, MCV 71.2 L, MCH 20.4 L , MCHC 28.6 L, Plt Count 197, MPV 9.4, Immature Gran % (Auto) 0.500, Neut % (Auto) 63.5, Lymph % (Auto) 23.2, [place] % (Auto) 10.0, Eos % (Auto) 1.8, Baso % (Auto) 1.0, Absolute Neuts (auto) 4.7, Nucleated RBC % 0 Rhythm: EKG: ECHO: Stress Test: Cardiac Cath: PCI: CT Surgery: Holter monitor: EPS: PPM: CXR: Chest CT Scan: Radiography Diagnostic Testing: Radiology Impression Chest X-Ray 08/21/24 11:32 IMPRESSION: Cardiomegaly with mild congestion. Reading Location: [facility] Echocardiogram 08/21/24 14:27 Interpretation Summary Normal LV size. The left ventricular ejection fraction is 20 %. There is severe global hypokinesis of the left ventricle. The left atrium is moderately enlarged. Mild-Moderate (1-2+) eccentric mitral valve insufficiency. Mildly dilated aortic root. The right atrium is mildly enlarged. Ordering Physician: Iglesia Benson Referring Physician: Abdulaziz Ackerman Performed By: Mason Reyes RCS Physical Exam Const alert and oriented x3 HEENT normocephalic Eyes EOMs intact bilaterally Neck no JVD and no carotid bruits Neck Narrative: Very thick neck. Resp Resp Narrative: Patient is tachypneic Auscultation: rales bilateral 1/[address] up Cardio Cardio Narrative: Patient's heart tones are distant and difficult to auscultate given the pulmonary situation. Rate: tachycardic Rhythm: abnormal rhythm irregularly irregular Heart Sounds: S1 normal and S2 normal; Negative for click, gallop or murmur GI GI Narrative: Obese Extremity General Extremity: edema bilateral lower extremity Details: severe Skin Skin Narrative: Weeping excoriated areas on the right lower extremity. Neuro Neuro Narrative: Alert and oriented x 3. Psych Psych Narrative: Patient gives very short and michael answers to questions. Assessment & Plan Assessment/Plan (1) Paroxysmal atrial fibrillation with RVR: PLAN: She does have atrial fibrillation with a rapid ventricular response rate. Was started on beta-latisha with metoprolol and thus far her rate has been controlled however she did have some pauses in the night. With her reduced ejection fraction it may be prudent to put her on carvedilol rather than metoprolol. * Recommend continue 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 with Coumadin target INR 2-3 * Carvedilol 6.25 mg twice a day * Discontinue metoprolol (2) Heart failure with reduced ejection fraction: PLAN: She does have heart failure with reduced ejection fraction estimated at 20%. Will recommend continuation of beta-latisha Continue BHAVIN inhibitor or Arni She is currently on IV Lasix which will be continued for another 24 hours and then switch to a combination of loop diuretic as well as aldosterone antagonist Suggest the addition of SGLT2 inhibitor Above discussed with hospitalist (3) Thoracoabdominal aortic aneurysm (TAAA): QUALIFIERS: Thoracoabdominal aorta location: supraceliac aorta P resence of rupture: without rupture Qualified Code(s): I71.61 - Supraceliac aneurysm of the abdominal aorta, without rupture PLAN: She has a stable thoracoabdominal aneurysm.
[2024-08-22] MEDS: Lisinopril 20 MG Tablet PO (11:07)
[2024-08-22] MEDS: Spironolactone 50 MG Tablet PO (11:11)
[2024-08-22] MEDS: Empagliflozin 10 MG Tablet PO (11:11)
[2024-08-22] MEDS: Carvedilol 6.25 MG Tablet PO (17:16)
[2024-08-22] MEDS: Atorvastatin Calcium 10 MG Tablet PO (20:47)
[2024-08-22] MEDS: Furosemide 500 MG in Empty Viaflex 50 mL 1 EACH CONT INF (22:38)
[2024-08-23 03:15] VITALS: BP 108/60; PULSE 91; RESP 18; TEMP 36.3; O2SAT 96
[2024-08-23 04:49] VITALS: BMI 34.9
[2024-08-23] MEDS: Acetaminophen 500 MG Tablet 1000 MG PO ×3 (05:26→22:23)
[2024-08-23 05:56] LABS: Absolute Lymphocyte Count 1.51 X10^3/uL (0.83-4.51); Absolute Neutrophil Count 4.7 X10^3/uL (2.0-7.7); Basophil# 0.05 X10^3/uL; Basophil% 0.7 % (0-1); Eosinophil# 0.15 X10^3/uL; Eosinophils% 2.2 % (0-5); Hematocrit 35.7 % (37-47); Hemoglobin 9.9 g/dL (12.0-15.0); Lymphocyte # 1.51 X10^3/ul (0.83-4.51); Lymphocyte % 21.7 % (19-41); Mean Corp Hgb Conc 27.7 g/dL (32-36); Mean Corpuscular Hgb 20.3 pg (27.0-32.0); Mean Corpuscular Volume 73.2 fL (81-99); Mean Platelet Vol. 9.9 fl (6.2-12.0); Monocyte# 0.55 X10^3/uL; Monocyte% 7.9 % (0-10); NRBC Flagged by Analyzer 0 % (0-5); Neutrophil # 4.68 X10^3/uL (2.7-7.7); Neutrophil % 67.2 % (47-70); Platelet Count 199 K/mm3 (150-450); RBC Distribution Width SD 50.6 fl (35.1-43.9); Red Blood Count 4.88 M/mm3 (4.2-5.4)
[2024-08-23 06:30] LABS: International Normalized Ratio 2.6; Prothrombin Time (Protime)PT. 28.7 SECONDS (11.7-14.9)
[2024-08-23 06:52] LABS: Anion Gap 14 (5-15); BUN 29 mg/dL (4-19); BUN/Creat Ratio 21.3 RATIO (10-20); Calcium,Total 8.7 mg/dL (7.6-11.0); Carbon Dioxide 26.5 mmol/L (21.0-32.0); Chloride 100 mmol/L (98-108); Creatinine, Serum 1.35 mg/dL (0.70-1.20); EST Glomerular Filtration Rate 43 (>60); Estimated Creatinine Clearance 46.19 ml/min (50-250); Glucose 105 mg/dL (70-99); Potassium 3.3 mmol/L (3.3-5.1); Sodium Level 141 mmol/L (133-145)
--- NOTE | 2024-08-23 08:17 | PN.CARD_ITS ---
Subjective Subjective Patient seen and evaluated. Objective Data Vital Signs: Vital Signs Temp Pulse Resp BP Pulse Ox O2 Del Method O2 Flow Rate 97.4 F L 91 18 108/60 96 Room Air 3 08/23/24 03:15 08/23/24 03:15 08/23/24 03:15 08/23/24 03:15 08/23/24 03:15 08/23/24 03:15 08/22/24 07:13 Oxygen Flow Rate (L/min) 3 Oxygen Delivery Method Room Air Weight: 210 lb 5.136 oz Body Mass Index (BMI) 34.9 Intake & Output: Intake and Output for Last 24 Hours 08/21/24 08/22/24 08/23/24 23:59 23:59 23:59 Intake Total 360 / 600 970.00 / 970.00 Output Total 2100 / 2650 1850 / 1850 Balance 360 / -400 -1130.00 / -1680.00 -1850 / -1850 Lab / Micro Data 08/23/24 05:23 08/23/24 05:23 Labs: Laboratory Results - last 24 hr 08/23/24 05:23: WBC 7.0, RBC 4.88, Hgb 9.9 L, Hct 35.7 L, MCV 73.2 L, MCH 20.3 L , MCHC 27.7 L, RDW Std Deviation 50.6 H, RDW Coeff of Ele 20.0 H, Plt Count 199, MPV 9.9, Immature Gran % (Auto) 0.300, Neut % (Auto) 67.2, Lymph % (Auto) 21.7, [place] % (Auto) 7.9, Eos % (Auto) 2.2, Baso % (Auto) 0.7, Absolute Neuts (auto) 4.7, Absolute Lymphs (auto) 1.51, Nucleated RBC % 0, PT 28.7 H, INR 2.6, Sodium 141, Potassium 3.3, Chloride 100, Carbon Dioxide 26.5, Anion Gap 14, BUN 29 H, C reatinine 1.35 H, Estim Creat Clear Calc 46.19 L, Est GFR (MDRD) Non-Af 43 L, B UN/Creatinine Ratio 21.3 H, Glucose 105 H, Calcium 8.7 Rhythm Strip Rhythm Strip: A-fib Rate: 125 Cardiology Labs/Tests 08/23/24 05:23: WBC 7.0, RBC 4.88, Hgb 9.9 L, Hct 35.7 L, MCV 73.2 L, MCH 20.3 L , MCHC 27.7 L, Plt Count 199, MPV 9.9, Immature Gran % (Auto) 0.300, Neut % (Auto) 67.2, Lymph % (Auto) 21.7, [place] % (Auto) 7.9, Eos % (Auto) 2.2, Baso % (Auto) 0.7, Absolute Neuts (auto) 4.7, Nucleated RBC % 0, PT 28.7 H, INR 2.6, Sodium 141, Potassium 3.3, Chloride 100, Carbon Dioxide 26.5, Anion Gap 14, BUN 29 H, Creatinine 1.35 H, Est GFR (MDRD) Non-Af 43 L, BUN/Creatinine Ratio 21.3 H , Glucose 105 H, Calcium 8.7 Rhythm: EKG: ECHO: Stress Test: Cardiac Cath: PCI: CT Surgery: Holter monitor: EPS: PPM: CXR: Chest CT Scan: Physical Exam Const alert and oriented x3 HEENT normocephalic Eyes EOMs intact bilaterally Neck no JVD and no carotid bruits Neck Narrative: Very thick neck. Resp Resp Narrative: Patient is tachypneic Auscultation: rales bilateral 1/[address] Cardio Cardio Narrative: Patient's heart tones are distant and difficult to auscultate given the pulmonary situation. Rate: tachycardic Rhythm: abnormal rhythm irregularly irregular Heart Sounds: S1 normal and S2 normal; Negative for click, gallop or murmur GI GI Narrative: Obese Extremity General Extremity: edema bilateral lower extremity Details: severe Skin Skin Narrative: Weeping excoriated areas on the right lower extremity. Neuro Neuro Narrative: Alert and oriented x 3. Psych Psych Narrative: Patient gives very short and michael answers to questions. Assessment & Plan Assessment/Plan (1) Paroxysmal atrial fibrillation with RVR: PLAN: She does have atrial fibrillation with a rapid ventricular response rate. Was started on beta-latisha with metoprolol and thus far her rate has been controlled however she did have some pauses in the night. With her reduced ejection fraction it may be prudent to put her on carvedilol rather than metoprolol. * Recommend continue 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 with Coumadin target INR 2-3 * Carvedilol 6.25 mg twice a day (2) Heart failure with reduced ejection fraction: PLAN: She does have heart failure with reduced ejection fraction estimated at 20%. Will recommend continuation of beta-latisha Continue BHAVIN inhibitor or Arni She is currently on IV Lasix which will be switched to p.o. Lasix today as well as an aldosterone antagonist. Continue SGLT2 inhibitor Overall she looks much better today. (3) Thoracoabdominal aortic aneurysm (TAAA): QUALIFIERS: Thoracoabdominal aorta location: supraceliac aorta P resence of rupture: without rupture Qualified Code(s): I71.61 - Supraceliac aneurysm of the abdominal aorta, without rupture PLAN: She has a stable thoracoabdominal aneurysm.
[2024-08-23 09:15] VITALS: BP 124/62; PULSE 93; RESP 18; TEMP 36.4; O2SAT 92
[2024-08-23] MEDS: Spironolactone 50 MG Tablet PO (09:22)
[2024-08-23] MEDS: Carvedilol 6.25 MG Tablet PO ×2 (09:22→16:56)
[2024-08-23] MEDS: Empagliflozin 10 MG Tablet PO (09:23)
[2024-08-23] MEDS: Ketorolac 15 MG/ML Vial IV (09:26)
[2024-08-23] MEDS: ALPRAZolam 0.25 MG Tablet PO (11:43)
--- NOTE | 2024-08-23 12:57 | PN.HOSP_ITS ---
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 (08/21/24) Objective Data Objective Data Vital Signs: Vital Signs Temp Pulse Resp BP Pulse Ox O2 Del Method O2 Flow Rate 97.6 F L 93 18 124/62 H 92 Room Air 3 08/23/24 09:15 08/23/24 09:15 08/23/24 09:15 08/23/24 09:15 08/23/24 09:15 08/23/24 09:52 08/22/24 07:13 Oxygen Flow Rate (L/min) 3 Oxygen Delivery Method Room Air Weight: 210 lb 5.136 oz Body Mass Index (BMI) 34.9 Intake & Output: Intake and Output for Last 24 Hours 08/21/24 08/22/24 08/23/24 23:59 23:59 23:59 Intake Total 360 / 600 970.00 / 970.00 11.2 / 11.2 Output Total 2100 / 2650 1850 / 1850 Balance 360 / -400 -1130.00 / -1680.00 -1838.8 / -1838.8 Lab / Micro Data 08/23/24 05:23 08/23/24 05:23 Labs: Laboratory Results - last 24 hr 08/23/24 05:23: WBC 7.0, RBC 4.88, Hgb 9.9 L, Hct 35.7 L, MCV 73.2 L, MCH 20.3 L , MCHC 27.7 L, RDW Std Deviation 50.6 H, RDW Coeff of Ele 20.0 H, Plt Count 199, MPV 9.9, Immature Gran % (Auto) 0.300, Neut % (Auto) 67.2, Lymph % (Auto) 21.7, [place] % (Auto) 7.9, Eos % (Auto) 2.2, Baso % (Auto) 0.7, Absolute Neuts (auto) 4.7, Absolute Lymphs (auto) 1.51, Nucleated RBC % 0, PT 28.7 H, INR 2.6, Sodium 141, Potassium 3.3, Chloride 100, Carbon Dioxide 26.5, Anion Gap 14, BUN 29 H, C reatinine 1.35 H, Estim Creat Clear Calc 46.19 L, Est GFR (MDRD) Non-Af 43 L, B UN/Creatinine Ratio 21.3 H, Glucose 105 H, Calcium 8.7 Rhythm Strip Rhythm Strip: A-fib Rate: 125 Physical Exam Narrative Shortness of breath is much improved but the patient there mental health issue including anxiety restlessness and depression. She states she lost her grand kid very young and also many issues in the family. Physical exam General: Alert, Oriented x3, Cooperative HEENT: Atraumatic, PERRLA, EOMI, Normocephalic Oral: Oral mucosa moist. No Gingival or Mucosal Lesions/ Ulcerations Neck: Supple, bilateral JVD, Negative Carotid Bruits Chest wall/Lungs: Air entry diminished in all lung henderson. Lung sounds much clear. Cardiovascular: Irregular rhythm, A-fib RVR, No M/G/R Abdomen: Bowel Sounds Present, Soft, Non Tender, nondistended : No dysuria. No renal angle tenderness. No suprapubic tenderness. Extremities: Bilateral 3-4+ pitting, thigh edema, Capillary Refill Less than 3 Seconds Skin: Tiny right lower leg erosion/superficial ulcer/drainage, improved with Tony wrap bandage. Musculoskeletal: No Tenderness to Palpation of Joints or Extremities. ROM restricted due to swelling. Neurological: Cranial nerves II-XII grossly intact, DTR 2+/4. No acute focal neurological deficit. Psych/Mental Status: Flat affect. In extreme distress and anxiety. Assessment & Plan Assessment/Plan (1) Acute exacerbation of CHF (congestive heart failure): (2) Paroxysmal atrial fibrillation with RVR: PLAN: Plan 69-year-old female admitted with 3 months of progressive worsening of shortness of breath, dyspnea at rest, orthopnea, anasarca and chest x-ray findings suggestive of heart failure exacerbation 1. Subacute debility/dyspnea at rest due to acute on chronic HFpEF: Patient is being admitted in PCU. Chest x-ray newly reviewed and shows pulmonary congestion/edema. 60 mg IV Lasix given in ER physician and then started on furosemide drip 10 mg/h. Heart failure core measures including intake and output, fluid restriction less than 1800 mL, daily weight monitoring, kidney and electrolytes monitoring. 2D echo ordered. Nitroglycerin ointment ordered for preload reduction 08/22: Dyspnea is much better and has resolved. Sitting comfortable. Discontinue nitroglycerin ointment as patient having headache. Discussed with the title inspector consult consult reviewed. Continue furosemide drip 10 mg/h. Empagliflozin 10 mg daily. Spironolactone dose increased to 50 mg daily. Echo reviewed, global hypokinesis, EF 20%. 1-2+ MR. LA moderately enlarged RA mildly enlarged. Troponins mildly enlarged 36, 44 and 45. proBNP about 4000 overall suggestive of increased LV overload therefore due to cardiac demand ischemia. No need to repeat cath as patient was found of nonobstructive coronaries in October 202208/23: Furosemide drip is discontinued. She has jump in creatinine 0.87-1.35 in 48 hours therefore meets criteria for LILLI due to diuretic therefore will hold furosemide today and start frusemide 40 mg p.o. twice daily from tomorrow. K low 3.3 but patient on spironolactone dose increased to 50 mg daily. 2. A-fib RVR and history of chronic PE.: Patient is still tachycardic. Heart rate 133 permanent. Metoprolol 5 mg IV given and then oral 25 mg twice daily. A-fib RVR mainly due to adrenergic response from heart failure. PT/INR ordered. On warfarin 4 mg daily continued. Tachycardia expected to get better with diuresis. 08/22: Carvedilol 6.25 mg p.o. twice daily 1 cardiac strip shows A-fib with heart rate in 30s. Currently her heart rate is in high 90s to low 100s. INR 1.9. Continue warfarin 6 mg daily 08/23: INR 2.6 therapeutic. 3. Nonobstructive CAD/non-STEMI: Patient was last admitted in October 2022 for non-STEMI. At that time diagnostic cardiac cath showed EF 60%, normal LV wall motion and systolic function. No significant obstructive coronary vessels found. 4. Chronic left knee degenerative arthritis: PT and OT ordered. Pain can 5. Essential hypertension: Blood pressure is high in triage. Is getting better. Patient already on furosemide drip and metoprolol. Titrate according to blood pressure. 08/22: Lisinopril 20 mg daily 6. Chronic thoracoabdominal aortic aneurysm: Last seen in vascular surgery clinic in November 2022. CTA imaging at that time showed 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 largest in the mid/distal descending thoracic aorta. Advised to continue follow-up with Dr. Tucker Dodson. 7. Anxiety depression/insomnia: Xanax 0.25 mg p.o. 3 times daily as needed for anxiety started DVT prophylaxis, high risk with history of chronic PE: On warfarin. 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 His sister is next to kin. After discussion of benefits/risks procedures involved with full code, DNR CC arrest and DNR CC, the patient opted for full code. Patient does want artificial life support including intubation, tube feed, ventilator and/chest compression, central venous catheter, vasopressor and DC shock if needed Total time spent in [id number] encounter in discussion of advanced directive 17 minutes. Laboratory Results 08/23/24 05:23: WBC 7.0, RBC 4.88, Hgb 9.9 L, Hct 35.7 L, MCV 73.2 L, MCH 20.3 L , MCHC 27.7 L, RDW Std Deviation 50.6 H, RDW Coeff of Ele 20.0 H, Plt Count 199, MPV 9.9, Immature Gran % (Auto) 0.300, Neut % (Auto) 67.2, Lymph % (Auto) 21.7, [place] % (Auto) 7.9, Eos % (Auto) 2.2, Baso % (Auto) 0.7, Absolute Neuts (auto) 4.7, Absolute Lymphs (auto) 1.51, Nucleated RBC % 0, PT 28.7 H, INR 2.6, Sodium 141, Potassium 3.3, Chloride 100, Carbon Dioxide 26.5, Anion Gap 14, BUN 29 H, C reatinine 1.35 H, Estim Creat Clear Calc 46.19 L, Est GFR (MDRD) Non-Af 43 L, B UN/Creatinine Ratio 21.3 H, Glucose 105 H, Calcium 8.7 Clinical Impression(s) from Imaging Studies Chest X-Ray 08/21/24 11:32 IMPRESSION: Cardiomegaly with mild congestion. Echocardiogram 08/21/24 14:27 Interpretation Summary Normal LV size. The left ventricular ejection fraction is 20 %. There is severe global hypokinesis of the left ventricle. The left atrium is moderately enlarged. Mild-Moderate (1-2+) eccentric mitral valve insufficiency. Mildly dilated aortic root. The right atrium is mildly enlarged. Echo 11/08/2022 Interpretation Summary Normal LV size. Mild concentric left ventricular hypertrophy. Mild to moderate (1-2+) tricuspid valve insufficiency. Mildly dilated aortic root. Dilated descending aorta. The estimated ejection fraction is 55 %. Left ventricular systolic function is normal. Stage 2 diastolic dysfunction. Charges/Coding Visit Charges Inpatient E&M: 01417 Subs Hosp L2
[2024-08-23 14:15] VITALS: BP 99/57; PULSE 60; RESP 18; TEMP 36.4; O2SAT 95
[2024-08-23 16:57] VITALS: BP 114/49; PULSE 72
[2024-08-23 22:19] VITALS: BP 113/54; PULSE 72; RESP 17; TEMP 36.6; O2SAT 97
[2024-08-23] MEDS: Atorvastatin Calcium 20 MG Tablet PO (22:22)
[2024-08-23] MEDS: 0.9% Saline Lock 10 ML Syringe IV (22:23)
[2024-08-24] VITALS (7 sets, daily range): BP systolic 103–148; BP diastolic 62–83; PULSE 70–82; RESP 16–18; TEMP 36–36.8; O2SAT 90–99; BMI 34.8
--- NOTE | 2024-08-24 00:02 | PCM.HOSP.N ---
Hospitalist Note Patient with 4.7 sec asymptomatic pause on monitor. Noted patient on BB therapy per Cardiology addition recently. Will need to continue to closely monitor and may need to adjust meds if ongoing.
[2024-08-24] MEDS: oxyCODONE 5 MG Tablet PO ×2 (00:19→17:17)
[2024-08-24] MEDS: Acetaminophen 500 MG Tablet 1000 MG PO ×3 (05:58→20:50)
[2024-08-24 07:21] LABS: International Normalized Ratio 3.4; Prothrombin Time (Protime)PT. 35.3 SECONDS (11.7-14.9)
[2024-08-24 07:27] LABS: Absolute Neutrophil Count 4.3 X10^3/uL (2.0-7.7); Basophil# 0.04 X10^3/uL; Basophil% 0.6 % (0-1); Eosinophil# 0.13 X10^3/uL; Eosinophils% 2.1 % (0-5); Hematocrit 33.9 % (37-47); Hemoglobin 9.7 g/dL (12.0-15.0); Lymphocyte % 20.7 % (19-41); Mean Corp Hgb Conc 28.6 g/dL (32-36); Mean Corpuscular Hgb 20.4 pg (27.0-32.0); Mean Corpuscular Volume 71.4 fL (81-99); Mean Platelet Vol. 10.2 fl (6.2-12.0); Monocyte# 0.54 X10^3/uL; Monocyte% 8.6 % (0-10); NRBC Flagged by Analyzer 0 % (0-5); Neutrophil # 4.27 X10^3/uL (2.7-7.7); Neutrophil % 67.8 % (47-70); Platelet Count 198 K/mm3 (150-450); RBC Distribution Width CV 19.7 % (11.6-14.6); RBC Distribution Width SD 49.5 fl (35.1-43.9); Red Blood Count 4.75 M/mm3 (4.2-5.4); White Blood Count 6.3 K/mm3 (4.4-11.0)
[2024-08-24 08:07] LABS: Anion Gap 14 (5-15); BUN 31 mg/dL (4-19); BUN/Creat Ratio 25.5 RATIO (10-20); Calcium,Total 8.6 mg/dL (7.6-11.0); Carbon Dioxide 25.9 mmol/L (21.0-32.0); Chloride 98 mmol/L (98-108); Creatinine, Serum 1.22 mg/dL (0.70-1.20); EST Glomerular Filtration Rate 49 (>60); Estimated Creatinine Clearance 50.97 ml/min (50-250); Glucose 115 mg/dL (70-99); Potassium 2.8 mmol/L (3.3-5.1); Sodium Level 138 mmol/L (133-145)
[2024-08-24] MEDS: Spironolactone 50 MG Tablet PO (08:23)
[2024-08-24] MEDS: Furosemide 40 MG Tablet PO ×3 (08:23→17:17)
[2024-08-24] MEDS: Empagliflozin 10 MG Tablet PO (08:23)
[2024-08-24 09:09] LABS: Magnesium 1.9 mg/dL (1.5-2.2); Phosphorus 4.7 mg/dL (2.7-4.5)
[2024-08-24] MEDS: Potassium Chloride Oral Tablet 20 MEQ 40 MEQ PO ×3 (10:05→20:50)
--- NOTE | 2024-08-24 12:40 | PCM.PN.HOSP ---
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) Objective Data Objective Data Vital Signs: Vital Signs Temp Pulse Resp BP Pulse Ox O2 Del Method O2 Flow Rate 97.5 F L 82 18 103/62 94 Room Air 3 08/24/24 08:20 08/24/24 08:20 08/24/24 08:20 08/24/24 08:20 08/24/24 08:20 08/24/24 08:29 08/22/24 07:13 Oxygen Flow Rate (L/min) 3 Oxygen Delivery Method Room Air Weight: 209 lb 3.499 oz Body Mass Index (BMI) 34.8 Intake & Output: Intake and Output for Last 24 Hours 08/22/24 08/23/24 08/24/24 23:59 23:59 23:59 Intake Total 970.00 / 970.00 551.2 / 831.2 1020 / 1020 Output Total 2100 / 2650 2300 / 2300 Balance -1130.00 / -1680.00 -1748.8 / -1468.8 1020 / 1020 Lab / Micro Data 08/24/24 05:55 08/24/24 05:55 Labs: Laboratory Results - last 24 hr 08/24/24 05:55: WBC 6.3, RBC 4.75, Hgb 9.7 L, Hct 33.9 L, MCV 71.4 L, MCH 20.4 L, MCHC 28.6 L, RDW Std Deviation 49.5 H, RDW Coeff of Ele 19.7 H, Plt Count 198, MPV 10.2, Immature Gran % (Auto) 0.200, Neut % (Auto) 67.8, Lymph % (Auto) 20.7, [place] % (Auto) 8.6, Eos % (Auto) 2.1, Baso % (Auto) 0.6, Absolute Neuts (auto) 4.3, Absolute Lymphs (auto) 1.30, Nucleated RBC % 0, PT 35.3 H, INR 3.4, Sodium 138, Potassium 2.8 L, Chloride 98, Carbon Dioxide 25.9, Anion Gap 14, BUN 31 H, Creatinine 1.22 H, Estim Creat Clear Calc 50.97, Est GFR (MDRD) Non-Af 49 L, BUN/Creatinine Ratio 25.5 H, Glucose 115 H, Calcium 8.6, Phosphorus 4.7 H, Magnesium 1.9 Rhythm Strip Rhythm Strip: A-fib Rate: 125 Physical Exam Narrative The patient wants to go home but advised to stay. She had about 4.7-second of pause on carvedilol therefore carvedilol is discontinued. Discussed with the claims representative. She also has severe hypokalemia. Shortness of breath is improved Physical exam General: Alert, Oriented x3, Cooperative HEENT: Atraumatic, PERRLA, EOMI, Normocephalic Oral: Oral mucosa moist. No Gingival or Mucosal Lesions/ Ulcerations Neck: Supple, bilateral JVD, Negative Carotid Bruits Chest wall/Lungs: Air entry diminished in all lung henderson. Lung sounds clear. No crepitation Cardiovascular: Irregular rhythm, A-fib RVR, No M/G/R Abdomen: Bowel Sounds Present, Soft, Non Tender, nondistended : No dysuria. No renal angle tenderness. No suprapubic tenderness. Extremities: Bilateral 2+ pitting, below knee edema, Capillary Refill Less than 3 Seconds Skin: Tiny right lower leg erosion/superficial ulcer/drainage, improved with Tony wrap bandage. Musculoskeletal: No Tenderness to Palpation of Joints or Extremities. ROM restricted due to swelling. Neurological: Cranial nerves II-XII grossly intact, DTR 2+/4. No acute focal neurological deficit. Psych/Mental Status: Flat affect. Chronic anxiety Assessment & Plan Assessment/Plan (1) Acute exacerbation of CHF (congestive heart failure): (2) Paroxysmal atrial fibrillation with RVR: PLAN: Plan 69-year-old female admitted with 3 months of progressive worsening of shortness of breath, dyspnea at rest, orthopnea, anasarca and chest x-ray findings suggestive of heart failure exacerbation 1. Subacute debility/dyspnea at rest due to acute on chronic HFpEF: Patient is being admitted in PCU. Chest x-ray newly reviewed and shows pulmonary congestion/edema. 60 mg IV Lasix given in ER physician and then started on furosemide drip 10 mg/h. Heart failure core measures including intake and output, fluid restriction less than 1800 mL, daily weight monitoring, kidney and electrolytes monitoring. 2D echo ordered. Nitroglycerin ointment ordered for preload reduction 08/22: Dyspnea is much better and has resolved. Sitting comfortable. Discontinue nitroglycerin ointment as patient having headache. Discussed with the claims representative consult consult reviewed. Continue furosemide drip 10 mg/h. Empagliflozin 10 mg daily. Spironolactone dose increased to 50 mg daily. Echo reviewed, global hypokinesis, EF 20%. 1-2+ MR. LA moderately enlarged RA mildly enlarged. Troponins mildly enlarged 36, 44 and 45. proBNP about 4000 overall suggestive of increased LV overload therefore due to cardiac demand ischemia. No need to repeat cath as patient was found of nonobstructive coronaries in October 202208/23: Furosemide drip is discontinued. She has jump in creatinine 0.87-1.35 in 48 hours therefore meets criteria for LILLI due to diuretic therefore will hold furosemide today and start frusemide 40 mg p.o. twice daily from tomorrow. K low 3.3 but patient on spironolactone dose increased to 50 mg daily. 08/24: Slightly better 1.22. Furosemide 40 mg oral twice daily. Continue spironolactone 50 mg daily. Hypokalemia: Potassium 2.3.3.8 even on the spironolactone. Potassium replacement ordered. Phosphorus high 4.7, magnesium normal. Continue potassium and magnesium supplement with diuretic Lasix 2. A-fib RVR and history of chronic PE.: Patient is still tachycardic. Heart rate 133 permanent. Metoprolol 5 mg IV given and then oral 25 mg twice daily. A-fib RVR mainly due to adrenergic response from heart failure. PT/INR ordered. On warfarin 4 mg daily continued. Tachycardia expected to get better with diuresis. 08/22: Carvedilol 6.25 mg p.o. twice daily 1 cardiac strip shows A-fib with heart rate in 30s. Currently her heart rate is in high 90s to low 100s. INR 1.9. Continue warfarin 6 mg daily 08/23: INR 2.6 therapeutic. 08/24: Patient had sinus pause last night about 4.7-second therefore cardiology discontinued. Discussed with the claims representative. Will need outpatient event monitor after discharge from 3. Nonobstructive CAD/non-STEMI: Patient was last admitted in October 2022 for non-STEMI. At that time diagnostic cardiac cath showed EF 60%, normal LV wall motion and systolic function. No significant obstructive coronary vessels found. 4. Chronic left knee degenerative arthritis: PT and OT ordered. Pain can 5. Essential hypertension: Blood pressure is high in triage. Is getting better. Patient already on furosemide drip and metoprolol. Titrate according to blood pressure. /: Lisinopril 20 mg daily 6. Chronic thoracoabdominal aortic aneurysm: Last seen in vascular surgery clinic in November 2022. CTA imaging at that time showed 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 largest in the mid/distal descending thoracic aorta. Advised to continue follow-up with Dr. Tucker Dodson. 7. Anxiety depression/insomnia: Xanax 0.25 mg p.o. 3 times daily as needed for anxiety started DVT prophylaxis, high risk with history of chronic PE: On warfarin. Living will/advanced directive/end of life care: Patient does not have living will or advanced directive or designated power of finance attorney for health. His sister is next to kin. After discussion of benefits/risks procedures involved with full code, DNR CC arrest and DNR CC, the patient opted for full code. Patient does want artificial life support including intubation, tube feed, ventilator and/chest compression, central venous catheter, vasopressor and DC shock if needed Total time spent in [id number] encounter in discussion of advanced directive 17 minutes. Laboratory Results 08/24/24 05:55: WBC 6.3, RBC 4.75, Hgb 9.7 L, Hct 33.9 L, MCV 71.4 L, MCH 20.4 L, MCHC 28.6 L, RDW Std Deviation 49.5 H, RDW Coeff of Ele 19.7 H, Plt Count 198, MPV 10.2, Immature Gran % (Auto) 0.200, Neut % (Auto) 67.8, Lymph % (Auto) 20.7, [place] % (Auto) 8.6, Eos % (Auto) 2.1, Baso % (Auto) 0.6, Absolute Neuts (auto) 4.3, Absolute Lymphs (auto) 1.30, Nucleated RBC % 0, PT 35.3 H, INR 3.4, Sodium 138, Potassium 2.8 L, Chloride 98, Carbon Dioxide 25.9, Anion Gap 14, BUN 31 H, Creatinine 1.22 H, Estim Creat Clear Calc 50.97, Est GFR (MDRD) Non-Af 49 L, BUN/Creatinine Ratio 25.5 H, Glucose 115 H, Calcium 8.6, Phosphorus 4.7 H, Magnesium 1.9 Clinical Impression(s) from Imaging Studies Chest X-Ray 08/21/24 11:32 IMPRESSION: Cardiomegaly with mild congestion. Echocardiogram 08/21/24 14:27 Interpretation Summary Normal LV size. The left ventricular ejection fraction is 20 %. There is severe global hypokinesis of the left ventricle. The left atrium is moderately enlarged. Mild-Moderate (1-2+) eccentric mitral valve insufficiency. Mildly dilated aortic root. The right atrium is mildly enlarged. Echo 11/08/2022 Interpretation Summary Normal LV size. Mild concentric left ventricular hypertrophy. Mild to moderate (1-2+) tricuspid valve insufficiency. Mildly dilated aortic root. Dilated descending aorta. The estimated ejection fraction is 55 %. Left ventricular systolic function is normal. Stage 2 diastolic dysfunction.
--- NOTE | 2024-08-24 15:06 | PCM.PN.CARD ---
Subjective Subjective Patient is doing well. Denies any significant complaints. Telemetry revealed some pauses. Longest pause was 4.7 seconds. This was preceded by a 4.1-second pause with what appears to be a ventricular escape beat in between. Objective Data Vital Signs: Vital Signs Temp Pulse Resp BP Pulse Ox O2 Del Method O2 Flow Rate 98.2 F 78 18 140/83 H 95 Room Air 3 08/24/24 14:40 08/24/24 14:40 08/24/24 14:40 08/24/24 14:40 08/24/24 14:40 08/24/24 14:40 08/22/24 07:13 Oxygen Flow Rate (L/min) 3 Oxygen Delivery Method Room Air Weight: 209 lb 3.499 oz Body Mass Index (BMI) 34.8 Intake & Output: Intake and Output for Last 24 Hours 08/22/24 08/23/24 08/24/24 23:59 23:59 23:59 Intake Total 970.00 / 970.00 551.2 / 831.2 1020 / 1020 Output Total 2100 / 2650 2300 / 2300 Balance -1130.00 / -1680.00 -1748.8 / -1468.8 1020 / 1020 Lab / Micro Data 08/24/24 05:55 08/24/24 05:55 Labs: Laboratory Results - last 24 hr 08/24/24 05:55: WBC 6.3, RBC 4.75, Hgb 9.7 L, Hct 33.9 L, MCV 71.4 L, MCH 20.4 L, MCHC 28.6 L, RDW Std Deviation 49.5 H, RDW Coeff of Ele 19.7 H, Plt Count 198, MPV 10.2, Immature Gran % (Auto) 0.200, Neut % (Auto) 67.8, Lymph % (Auto) 20.7, [place] % (Auto) 8.6, Eos % (Auto) 2.1, Baso % (Auto) 0.6, Absolute Neuts (auto) 4.3, Absolute Lymphs (auto) 1.30, Nucleated RBC % 0, PT 35.3 H, INR 3.4, Sodium 138, Potassium 2.8 L, Chloride 98, Carbon Dioxide 25.9, Anion Gap 14, BUN 31 H, Creatinine 1.22 H, Estim Creat Clear Calc 50.97, Est GFR (MDRD) Non-Af 49 L, BUN/Creatinine Ratio 25.5 H, Glucose 115 H, Calcium 8.6, Phosphorus 4.7 H, Magnesium 1.9 Rhythm Strip Rhythm Strip: A-fib Rate: 125 Cardiology Labs/Tests 08/24/24 05:55: WBC 6.3, RBC 4.75, Hgb 9.7 L, Hct 33.9 L, MCV 71.4 L, MCH 20.4 L, MCHC 28.6 L, Plt Count 198, MPV 10.2, Immature Gran % (Auto) 0.200, Neut % (Auto) 67.8, Lymph % (Auto) 20.7, [place] % (Auto) 8.6, Eos % (Auto) 2.1, Baso % (Auto) 0.6, Absolute Neuts (auto) 4.3, Nucleated RBC % 0, PT 35.3 H, INR 3.4, Sodium 138, Potassium 2.8 L, Chloride 98, Carbon Dioxide 25.9, Anion Gap 14, BUN 31 H, Creatinine 1.22 H, Est GFR (MDRD) Non-Af 49 L, BUN/Creatinine Ratio 25.5 H, Glucose 115 H, Calcium 8.6, Phosphorus 4.7 H, Magnesium 1.9 Rhythm: EKG: ECHO: Stress Test: Cardiac Cath: PCI: CT Surgery: Holter monitor: EPS: PPM: CXR: Chest CT Scan: Physical Exam Const alert Resp normal respiratory effort Extremity Extremity Narrative: 1-2+ edema Psych mental status grossly normal Assessment & Plan Assessment/Plan (1) Cardiac LV ejection fraction of 20-34%: (2) Heart failure with reduced ejection fraction: (3) Paroxysmal atrial fibrillation with RVR: (4) Bradycardia: PLAN: Plan Patient has low potassium and it is being replaced. Patient will probably need 10 to 20 mEq of potassium when she takes 40 mg of Lasix as an outpatient. We can start with this dose and this can be checked closely as an outpatient. Patient came in with A-fib with RVR. She was started on metoprolol and then is currently on Coreg but has been having some pauses followed by A-fib with normal ventricular response. Her Coreg dose this morning was held. We can started back at 3.125 mg twice daily in view of her presentation with A-fib with RVR and her low EF. She may benefit from Holter or event monitoring at the time of discharge. 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 She will need to be closely followed as an outpatient. Charges/Coding Visit Charges Inpatient E&M: 12195 [facility] Hosp L1
[2024-08-24 15:51] LABS: Potassium 2.9 mmol/L (3.3-5.1)
[2024-08-24] MEDS: Magnesium Chloride 64 MG Delay Rel.Tablet 128 MG PO ×2 (17:17→20:53)
[2024-08-24 17:20] LABS: Potassium 3.3 mmol/L (3.3-5.1)
[2024-08-24] MEDS: Atorvastatin Calcium 20 MG Tablet PO (20:51)
[2024-08-24] MEDS: Baclofen 10 MG Tablet PO (20:53)
--- NOTE | 2024-08-25 02:19 | PCM.HOSP.N ---
Hospitalist Note Patient with asymptomatic 4.49 sec pause. Cardiology following. 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 Ramesh most recent note.
[2024-08-25 03:00] VITALS: BP 136/85; PULSE 89; RESP 16; TEMP 36.6; O2SAT 99
[2024-08-25 04:50] LABS: Absolute Lymphocyte Count 1.53 X10^3/uL (0.83-4.51); Absolute Neutrophil Count 4.4 X10^3/uL (2.0-7.7); Basophil# 0.05 X10^3/uL; Basophil% 0.7 % (0-1); Eosinophil# 0.13 X10^3/uL; Eosinophils% 1.9 % (0-5); Hematocrit 36.9 % (37-47); Hemoglobin 10.2 g/dL (12.0-15.0); Lymphocyte # 1.53 X10^3/ul (0.83-4.51); Lymphocyte % 22.8 % (19-41); Mean Corp Hgb Conc 27.6 g/dL (32-36); Mean Corpuscular Hgb 20.1 pg (27.0-32.0); Mean Corpuscular Volume 72.8 fL (81-99); Monocyte% 8.9 % (0-10); NRBC Flagged by Analyzer 0 % (0-5); Neutrophil # 4.39 X10^3/uL (2.7-7.7); Neutrophil % 65.4 % (47-70); Platelet Count 218 K/mm3 (150-450); RBC Distribution Width CV 19.9 % (11.6-14.6); RBC Distribution Width SD 50.4 fl (35.1-43.9); Red Blood Count 5.07 M/mm3 (4.2-5.4); White Blood Count 6.7 K/mm3 (4.4-11.0)
[2024-08-25 04:58] LABS: International Normalized Ratio 3.2; Prothrombin Time (Protime)PT. 33.4 SECONDS (11.7-14.9)
[2024-08-25 05:29] VITALS: BMI 34.9
[2024-08-25 05:32] LABS: Anion Gap 12 (5-15); BUN 26 mg/dL (4-19); BUN/Creat Ratio 21.7 RATIO (10-20); Calcium,Total 8.5 mg/dL (7.6-11.0); Carbon Dioxide 26.5 mmol/L (21.0-32.0); Chloride 101 mmol/L (98-108); Creatinine, Serum 1.18 mg/dL (0.70-1.20); EST Glomerular Filtration Rate 51 (>60); Estimated Creatinine Clearance 52.76 ml/min (50-250); Glucose 114 mg/dL (70-99); Potassium 3.4 mmol/L (3.3-5.1); Sodium Level 139 mmol/L (133-145)
[2024-08-25] MEDS: Acetaminophen 500 MG Tablet 1000 MG PO (05:55)
[2024-08-25 07:42] VITALS: O2SAT 97
[2024-08-25 09:00] VITALS: BP 138/72; PULSE 82; RESP 20; TEMP 36.8; O2SAT 94
--- NOTE | 2024-08-25 10:42 | DCINST_ITS ---
Discharge Instructions Diet Discharge Diet: Low fat / Low cholesterol and 2000 mg Sodium Diet DC O2, CPAP, BIPAP needs Home O2 Discharge instructions: No Dressing / Incision Discharge Activity: Return to Normal Activity Weight Bearing Status: Weight bearing as tolerated Dressing / Incision Call your doctor if you observe: Fever of 101 or Higher, Coldness, Increased Pain, Numbness or Tingling, Change in Color, Inability to urinate, Inability to have a bowel movement, Shortness of breath, Dizziness, Fainting spells, Swelling in the ankles, Chest pain, Prolonged hiccupping, Increased palpitations (irregular heartbeat) and Calf discomfort Follow Up Care When: IN 2 WEEKS Test Results: Test results from this visit will be discussed in further detail at your follow- up appointment, if applicable. Discharge Plan Admission Admit Date/Time: 08/21/24 12:26 Primary Reason for Your Visit: Heart failure exacerbation. Attending Provider: Iglesia Benson Primary Care Provider: Abdulaziz Ackerman Consulting Providers: Param Dominguez Instructions Additional Instructions / Restrictions: Advised BMP and PT/INR in 2 days on 08/27/2024 and adjust the dose of warfarin and diuretics accordingly Discharge Orders/Prescriptions Prescriptions: New atorvastatin 20 mg Tablet 20 mg PO QHS 30 Days Qty: 30 2RF lisinopril 20 mg Tablet 20 mg PO DAILY 30 Days Qty: 30 2RF sennosides-docusate sodium [Stimulant Laxative Plus] 8.6-50 mg Tablet 2 tab PO BID Qty: 0 0RF acetaminophen 500 mg Tablet 1,000 mg PO Q8 Qty: 0 0RF carvedilol 3.125 mg Tablet 3.125 mg PO BIDCM 30 Days Qty: 60 2RF Rx Instructions: Hold for heart less than 50 or systolic blood pressure less than 100 mmHg. magnesium chloride [Mag 64] 64 mg Tablet,Delayed Release (Dr/Ec) 128 mg PO DAILY 30 Days Qty: 60 0RF spironolactone 50 mg tablet 50 mg PO DAILY 30 Days Qty: 30 2RF Rx Instructions: Hold for serum potassium more than 5.0 furosemide 40 mg Tablet 40 mg PO BIDLX 30 Days Qty: 60 2RF Jardiance 10 mg Tablet 10 mg PO DAILY 30 Days Qty: 30 0RF Continued baclofen 10 mg tablet 10 mg PO BID PRN (Reason: muscle spasm) Qty: 60 1RF furosemide 40 mg tablet 40 mg PO QAM Qty: 90 1RF Rx Instructions: Take 1 tablet BID x 4 days then daily potassium chloride 20 mEq tablet extended release 20 meq PO DAILY Qty: 30 1RF Held warfarin [Jantoven] 6 mg tablet 6 mg PO DAILY Hold Instructions: Hold it for 3 days till INR is 2.0 and then resume lower dose Discontinued atorvastatin [Lipitor] 10 mg tablet 10 mg PO DAILY Qty: 90 0RF Patient Comments: PT TAKES AT BEDTIME cephalexin 500 mg capsule 500 mg PO Q8H Qty: 30 0RF amlodipine 10 mg tablet 10 mg PO DAILY Qty: 90 0RF Patient Comments: PT UNSURE IF TAKING lisinopril 40 mg tablet 40 mg PO DAILY Qty: 90 0RF Patient Comments: PT SAID SHE DOES NOT TAKE, BUT RECENTLY FILLED Referrals / Follow Up: Abdulaziz Ackerman MD [Primary Care Provider] - Within 1 Week Param Dominguez MD [Med Staff - Active Staff] - Within 2 Weeks Disposition Disposition (needs filled in before D/C Order can be placed): Home, Self Care
[2024-08-25] MEDS: Magnesium Chloride 64 MG Delay Rel.Tablet 128 MG PO (10:56)
[2024-08-25] MEDS: Furosemide 40 MG Tablet PO (10:58)
[2024-08-25 10:59] VITALS: O2SAT 92; O2SAT 94
[2024-08-25] MEDS: Empagliflozin 10 MG Tablet PO (10:59)
--- NOTE | 2024-08-25 10:59 | PCM.DC.SUM ---
Providers Date of Admission: 08/21/24 Date of Discharge: 08/25/24 Primary Care Physician: Dr. Abdulaziz Ackerman MD Consultations 08/21/24 13:22 Consult: Cardiology Routine Consulting Provider: Param Dominguez Reason for Consult: CHF exa, afib rvr EMERGENT Consult: No MD Notified: Yes Date Notified: 08/21/24 Time Notified: 12:22 Method of Notification: ED Physician Initiated 08/21/24 17:29 Consult: Onc/Wound/network management specialist Routine Comment: Reason for Consult:: wounds BLE seeping Reason For Visit: CHF EXA, AFIB RVR Diagnosis Discharge Diagnosis (1) Cardiac LV ejection fraction of 20-34%: Status: Chronic Code(s): R93.1 - Abnormal findings on diagnostic imaging of heart and coronary circulation (2) Heart failure with reduced ejection fraction: Status: Acute Code(s): I50.20 - Unspecified systolic (congestive) heart failure (3) Paroxysmal atrial fibrillation with RVR: Status: Acute Code(s): I48.0 - Paroxysmal atrial fibrillation (4) Bradycardia: Status: Acute Code(s): R00.1 - Bradycardia, unspecified Plan 69-year-old female admitted with 3 months of progressive worsening of shortness of breath, dyspnea at rest, orthopnea, anasarca and chest x-ray findings suggestive of heart failure exacerbation 1. Subacute debility/dyspnea at rest due to acute on chronic HFpEF: Patient is being admitted in PCU. Chest x-ray newly reviewed and shows pulmonary congestion/edema. 60 mg IV Lasix given in ER physician and then started on furosemide drip 10 mg/h. Heart failure core measures including intake and output, fluid restriction less than 1800 mL, daily weight monitoring, kidney and electrolytes monitoring. 2D echo ordered. Nitroglycerin ointment ordered for preload reduction /: Dyspnea is much better and has resolved. Sitting comfortable. Discontinue nitroglycerin ointment as patient having headache. Discussed with the bias cutting machine operator vertical consult consult reviewed. Continue furosemide drip 10 mg/h. Empagliflozin 10 mg daily. Spironolactone dose increased to 50 mg daily. Echo reviewed, global hypokinesis, EF 20%. 1-2+ MR. LA moderately enlarged RA mildly enlarged. Troponins mildly enlarged 36, 44 and 45. proBNP about 4000 overall suggestive of increased LV overload therefore due to cardiac demand ischemia. No need to repeat cath as patient was found of nonobstructive coronaries in October 202208/23: Furosemide drip is discontinued. She has jump in creatinine 0.87-1.35 in 48 hours therefore meets criteria for LILLI due to diuretic therefore will hold furosemide today and start frusemide 40 mg p.o. twice daily from tomorrow. K low 3.3 but patient on spironolactone dose increased to 50 mg daily. 08/24: Furosemide 40 mg oral twice daily. Continue spironolactone 50 mg daily. Hypokalemia: Potassium 2.3.3.8 even on the spironolactone. Potassium replacement ordered. Phosphorus high 4.7, magnesium normal. Continue potassium and magnesium supplement with diuretic Lasix 08/25: Potassium 3.4, sodium 139. BUN/creatinine 26/creatinine 1.18. Patient is euvolemic. Discharged on furosemide 40 mg twice daily, spironolactone 50 mg daily, lisinopril 20 mg daily, carvedilol 3.125 mg twice daily and magnesium supplement. Patient already on potassium supplement. Hypokalemia resolved. Advised BMP and PT/NR in 2 days and follow with PCP. Discharge medications discussed with the bias cutting machine operator vertical Dr. Ramesh. Follow-up in cardiology in [address] Dominguez 2. A-fib RVR and history of chronic PE.: Patient is still tachycardic. Heart rate 133 permanent. Metoprolol 5 mg IV given and then oral 25 mg twice daily. A-fib RVR mainly due to adrenergic response from heart failure. PT/INR ordered. On warfarin 4 mg daily continued. Tachycardia expected to get better with diuresis. 08/22: Carvedilol 6.25 mg p.o. twice daily 1 cardiac strip shows A-fib with heart rate in 30s. Currently her heart rate is in high 90s to low 100s. INR 1.9. Continue warfarin 6 mg daily 08/23: INR 2.6 therapeutic. 08/24: Patient had sinus pause last night about 4.7-second therefore cardiology discontinued. Discussed with the bias cutting machine operator vertical. Will need outpatient event monitor after discharge from 08/25: Patient did not had sinus pause but had AV conduction block of about 3.27-second. Discussed with the bias cutting machine operator vertical Dr. Ramesh. He is okay with the patient being discharged on carvedilol 3.125 mg twice daily as the patient has A-fib with slow conduction, flutter and there is no sinus pause. Patient has asymptomatic bradycardia and carvedilol indicated and needed for heart failure with EF 20% 3. Nonobstructive CAD/non-STEMI: Patient was last admitted in October 2022 for non-STEMI. At that time diagnostic cardiac cath showed EF 60%, normal LV wall motion and systolic function. No significant obstructive coronary vessels found. 4. Chronic left knee degenerative arthritis: PT and OT ordered. Pain can 5. Essential hypertension: Blood pressure is high in triage. Is getting better. Patient already on furosemide drip and metoprolol. Titrate according to blood pressure. 08/22: Lisinopril 20 mg daily 6. Chronic thoracoabdominal aortic aneurysm: Last seen in vascular surgery clinic in November 2022. CTA imaging at that time showed 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 largest in the mid/distal descending thoracic aorta. Advised to continue follow-up with Dr. Tucker Dodson. 7. Anxiety depression/insomnia: Xanax 0.25 mg p.o. 3 times daily as needed for anxiety started DVT prophylaxis, high risk with history of chronic PE: On warfarin. Living will/advanced directive/end of life care: Patient does not have living will or advanced directive or designated power of real estate associate attorney for health. His sister is next to kin. After discussion of benefits/risks procedures involved with full code, DNR CC arrest and DNR CC, the patient opted for full code. Patient does want artificial life support including intubation, tube feed, ventilator and/chest compression, central venous catheter, vasopressor and DC shock if needed = Clinical Impression(s) from Imaging Studies Chest X-Ray 08/21/24 11:32 IMPRESSION: Cardiomegaly with mild congestion. Echocardiogram 08/21/24 14:27 Interpretation Summary Normal LV size. The left ventricular ejection fraction is 20 %. There is severe global hypokinesis of the left ventricle. The left atrium is moderately enlarged. Mild-Moderate (1-2+) eccentric mitral valve insufficiency. Mildly dilated aortic root. The right atrium is mildly enlarged. Echo 11/08/2022 Interpretation Summary Normal LV size. Mild concentric left ventricular hypertrophy. Mild to moderate (1-2+) tricuspid valve insufficiency. Mildly dilated aortic root. Dilated descending aorta. The estimated ejection fraction is 55 %. Left ventricular systolic function is normal. Stage 2 diastolic dysfunction. Laboratory Results 08/24/24 15:01: Potassium 2.9 L 08/24/24 17:00: Potassium 3.3 08/25/24 04:36: WBC 6.7, RBC 5.07, Hgb 10.2 L, Hct 36.9 L, MCV 72.8 L, MCH 20.1 L, MCHC 27.6 L, RDW Std Deviation 50.4 H, RDW Coeff of Ele 19.9 H, Plt Count 218, MPV 10.0, Immature Gran % (Auto) 0.300, Neut % (Auto) 65.4, Lymph % (Auto) 22.8, [place] % (Auto) 8.9, Eos % (Auto) 1.9, Baso % (Auto) 0.7, Absolute Neuts (auto) 4.4, Absolute Lymphs (auto) 1.53, Nucleated RBC % 0, PT 33.4 H, INR 3.2, Sodium 139, Potassium 3.4, Chloride 101, Carbon Dioxide 26.5, Anion Gap 12, BUN 26 H, Creatinine 1.18, Estim Creat Clear Calc 52.76, Est GFR (MDRD) Non-Af 51 L, BUN/Creatinine Ratio 21.7 H, Glucose 114 H, Calcium 8.5 Medications at Discharge Home Medications baclofen 10 mg tablet 10 mg PO BID PRN muscle spasm #60 tabs 02/23/24 furosemide 40 mg tablet 40 mg PO QAM FLUID #90 tabs 07/24/24 potassium chloride 20 mEq tablet,extended release 20 meq PO DAILY SUPPLEMENT #30 tabs 07/25/24 warfarin 6 mg tablet (Jantoven) 6 mg PO DAILY ATRIL FIBRILLATION 08/21/24 Held on 08/25/24. Instructions: Hold it for 3 days till INR is 2.0 and then resume lower dose acetaminophen 500 mg tablet 1,000 mg (2 x 500 mg) PO Q8 #0 tabs 08/25/24 atorvastatin 20 mg tablet 20 mg PO QHS 30 days #30 tabs 08/25/24 carvedilol 3.125 mg tablet 3.125 mg PO BIDCM 1 month #60 tabs 08/25/24 empagliflozin 10 mg tablet (Jardiance) 10 mg PO DAILY 30 days #30 tabs 08/25/24 furosemide 40 mg tablet 40 mg PO BIDLX 30 days #60 tabs 08/25/24 lisinopril 20 mg tablet 20 mg PO DAILY 30 days #30 tabs 08/25/24 magnesium chloride 64 mg (magnesium chloride) tablet,delayed release (Mag 64) 128 mg (2 x 64 mg) PO DAILY 1 month #60 tabs 08/25/24 sennosides 8.6 mg-docusate sodium 50 mg tablet (Stimulant Laxative Plus) 2 tab PO BID #0 tabs 08/25/24 spironolactone 50 mg tablet 50 mg PO DAILY 30 days #30 tabs 08/25/24 Physical Exam Narrative Patient is asymptomatic. monitor technician reviewed and shows 3.27 AV conduction block, atrial flutter with slow conduction. She had about 4.7-second pause on carvedilol yesterday was held. Carvedilol resumed at lower dose 3.125 mg twice daily after discussion with the bias cutting machine operator vertical. Shortness of breath and hypokalemia have resolved. Physical exam General: Alert, Oriented x3, Cooperative HEENT: Atraumatic, PERRLA, EOMI, Normocephalic Oral: Oral mucosa moist. No Gingival or Mucosal Lesions/ Ulcerations Neck: Supple, bilateral JVD, Negative Carotid Bruits Chest wall/Lungs: Air entry diminished in all lung henderson. Lung sounds clear. No crepitation Cardiovascular: Irregular rhythm, a flutter with slow conduction hold for heart rate less than 60 or SBP less than 100 mmHg no M/G/R Abdomen: Bowel Sounds Present, Soft, Non Tender, nondistended : No dysuria. No renal angle tenderness. No suprapubic tenderness. Extremities: Bilateral 2+ pitting, below knee edema, Capillary Refill Less than 3 Seconds Skin: Tiny right lower leg erosion/superficial ulcer/drainage, improved with Tony wrap bandage. Musculoskeletal: No Tenderness to Palpation of Joints or Extremities. ROM restricted due to swelling. Neurological: Cranial nerves II-XII grossly intact, DTR 2+/4. No acute focal neurological deficit. Psych/Mental Status: Flat affect. Chronic anxiety Weight / BMI Weight Weight: 209 lb 10.554 oz Body Mass Index (BMI) 34.9 ABG / Lab / Microbiology Data 08/25/24 04:36 08/25/24 04:36 Laboratory: Laboratory Results - last 24 hr 08/24/24 15:01: Potassium 2.9 L 08/24/24 17:00: Potassium 3.3 08/25/24 04:36: WBC 6.7, RBC 5.07, Hgb 10.2 L, Hct 36.9 L, MCV 72.8 L, MCH 20.1 L, MCHC 27.6 L, RDW Std Deviation 50.4 H, RDW Coeff of Ele 19.9 H, Plt Count 218, MPV 10.0, Immature Gran % (Auto) 0.300, Neut % (Auto) 65.4, Lymph % (Auto) 22.8, [place] % (Auto) 8.9, Eos % (Auto) 1.9, Baso % (Auto) 0.7, Absolute Neuts (auto) 4.4, Absolute Lymphs (auto) 1.53, Nucleated RBC % 0, PT 33.4 H, INR 3.2, Sodium 139, Potassium 3.4, Chloride 101, Carbon Dioxide 26.5, Anion Gap 12, BUN 26 H, Creatinine 1.18, Estim Creat Clear Calc 52.76, Est GFR (MDRD) Non-Af 51 L, BUN/Creatinine Ratio 21.7 H, Glucose 114 H, Calcium 8.5 D/C Instructions Discharge Diet: Low fat / Low cholesterol and 2000 mg Sodium Diet Weight Bearing Status: Weight bearing as tolerated Call your doctor if you observe: Fever of 101 or Higher, Coldness, Increased Pain, Numbness or Tingling, Change in Color, Inability to urinate, Inability to have a bowel movement, Shortness of breath, Dizziness, Fainting spells, Swelling in the ankles, Chest pain, Prolonged hiccupping, Increased palpitations (irregular heartbeat) and Calf discomfort DC O2, CPAP, BIPAP Needs Home O2 Discharge instructions: No When: IN 2 WEEKS Meaningful Use Info Meaningful Use Meaningful Use Diagnoses (Choose all that apply): CHF CHF TONY/ARB ordered at discharge?: Yes Documented LVEF (%): 20 Ischemic Stroke Statin Dosing Therapy Reference: STATIN DOSE THERAPY REFERENCE: * Patients > 75 years receive moderate or high dose statin therapy. * Patients 75 years or YOUNGER should receive HIGH intensity statin dose unless contraindicated. You will be required to document reason for non-treatment if statin daily dose does not meet guidelines. HIGH DOSE STATIN THERAPY DAILY Atorvastatin > than or = to 40 mg Rosuvastatin > than or = to 20 mg Amlodipine + Atorvastatin > than or = to 2.5/40 mg Ezetimibe + Simvastatin 10/80 mg Simvastatin 80mg Discharge Plan Admission Admit Date/Time: 08/21/24 12:26 Primary Reason for Your Visit: Heart failure exacerbation. Attending Provider: Iglesia Benson Primary Care Provider: Abdulaziz Ackerman Consulting Providers: Param Dominguez Instructions Additional Instructions / Restrictions: Advised BMP and PT/INR in 2 days on 08/27/2024 and adjust the dose of warfarin and diuretics accordingly Discharge Orders/Prescriptions Prescriptions: New atorvastatin 20 mg Tablet 20 mg PO QHS 30 Days Qty: 30 2RF lisinopril 20 mg Tablet 20 mg PO DAILY 30 Days Qty: 30 2RF sennosides-docusate sodium [Stimulant Laxative Plus] 8.6-50 mg Tablet 2 tab PO BID Qty: 0 0RF acetaminophen 500 mg Tablet 1,000 mg PO Q8 Qty: 0 0RF carvedilol 3.125 mg Tablet 3.125 mg PO BIDCM 30 Days Qty: 60 2RF Rx Instructions: Hold for heart less than 50 or systolic blood pressure less than 100 mmHg. magnesium chloride [Mag 64] 64 mg Tablet,Delayed Release (Dr/Ec) 128 mg PO DAILY 30 Days Qty: 60 0RF spironolactone 50 mg tablet 50 mg PO DAILY 30 Days Qty: 30 2RF Rx Instructions: Hold for serum potassium more than 5.0 furosemide 40 mg Tablet 40 mg PO BIDLX 30 Days Qty: 60 2RF Jardiance 10 mg Tablet 10 mg PO DAILY 30 Days Qty: 30 0RF Continued baclofen 10 mg tablet 10 mg PO BID PRN (Reason: muscle spasm) Qty: 60 1RF furosemide 40 mg tablet 40 mg PO QAM Qty: 90 1RF Rx Instructions: Take 1 tablet BID x 4 days then daily potassium chloride 20 mEq tablet extended release 20 meq PO DAILY Qty: 30 1RF Held warfarin [Jantoven] 6 mg tablet 6 mg PO DAILY Hold Instructions: Hold it for 3 days till INR is 2.0 and then resume lower dose Discontinued atorvastatin [Lipitor] 10 mg tablet 10 mg PO DAILY Qty: 90 0RF Patient Comments: PT TAKES AT BEDTIME cephalexin 500 mg capsule 500 mg PO Q8H Qty: 30 0RF amlodipine 10 mg tablet 10 mg PO DAILY Qty: 90 0RF Patient Comments: PT UNSURE IF TAKING lisinopril 40 mg tablet 40 mg PO DAILY Qty: 90 0RF Patient Comments: PT SAID SHE DOES NOT TAKE, BUT RECENTLY FILLED Referrals / Follow Up: Abdulaziz Ackerman MD [Primary Care Provider] - Within 1 Week Param Dominguez MD [Med Staff - Active Staff] - Within 2 Weeks Disposition Disposition (needs filled in before D/C Order can be placed): Home, Self Care Charges/Coding Visit Charges Inpatient E&M: 30133 Disch Hosp >30min
[2024-08-25] MEDS: Carvedilol 3.125 MG TABLET PO (11:01)
[2024-08-25] MEDS: Spironolactone 25 MG Tablet 75 MG PO (11:02)
== END 2024-08-25 14:48 | disposition home or self-care (01) | DRG 291 ==
LOC: ED 12:32 → ICU 13:23 → PCU 08-22 13:59
PROVIDERS: Admitting Provider Internal Medicine; Emergency Provider Emergency Medicine; PCP Internal Medicine; Visit Provider Internal Medicine
DX: I11.0 Hypertensive heart disease with heart failure (principal); I26.99 Other pulmonary embolism without acute cor pulmonale; J81.0 Acute pulmonary edema; I50.43 Acute on chronic combined systolic (congestive) and diastolic (congestive) heart failure; I24.89 Other forms of acute ischemic heart disease; L97.911 Non-pressure chronic ulcer of unspecified part of right lower leg limited to breakdown of skin; I48.20 Chronic atrial fibrillation, unspecified; N17.9 Acute kidney failure, unspecified; E11.622 Type 2 diabetes mellitus with other skin ulcer; D50.9 Iron deficiency anemia, unspecified; I71.61 Supraceliac aneurysm of the thoracoabdominal aorta, without rupture; I08.1 Rheumatic disorders of both mitral and tricuspid valves; E66.9 Obesity, unspecified; E11.65 Type 2 diabetes mellitus with hyperglycemia; M54.50 Low back pain, unspecified; E78.5 Hyperlipidemia, unspecified; I25.10 Atherosclerotic heart disease of native coronary artery without angina pectoris; I25.2 Old myocardial infarction; I48.0 Paroxysmal atrial fibrillation; E87.8 Other disorders of electrolyte and fluid balance, not elsewhere classified; M17.12 Unilateral primary osteoarthritis, left knee; I71.23 Aneurysm of the descending thoracic aorta, without rupture; R00.1 Bradycardia, unspecified; Z79.01 Long term (current) use of 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s; Z68.36 Body mass index [BMI] 36.0-36.9, adult; R53.81 Other malaise; Z79.891 Long term (current) use of opiate analgesic; Z87.891 Personal history of nicotine dependence; Z82.49 Family history of ischemic heart disease and other diseases of the circulatory system; R06.82 Tachypnea, not elsewhere classified; G89.29 Other chronic pain; R79.1 Abnormal coagulation profile; Z88.8 Allergy status to other drugs, medicaments and biological substances; Z79.02 Long term (current) use of antithrombotics/antiplatelets; Z79.899 Other long term (current) drug therapy; R93.1 Abnormal findings on diagnostic imaging of heart and coronary circulation; R06.89 Other abnormalities of breathing
CPT/HCPCS: 36415; 71046; 80048; 80053; 80061; 83735; 83880; 84100; 84132; 84443; 84484; 85025; 85610; 93005; 93306; 94668; 97162; 97802; 99285; Q9957; A4216; J1940

== ENCOUNTER 2024-09-02 11:25 | Outpatient (RCR) | payer MEDICARE, SELFPAY ==
[2024-09-02 12:50] LABS: International Normalized Ratio 1.5; Prothrombin Time (Protime)PT. 18.1 SECONDS (11.7-14.9)
[2024-09-02 13:09] LABS: Anion Gap 12 (5-15); BUN 15 mg/dL (4-19); Calcium,Total 8.4 mg/dL (7.6-11.0); Carbon Dioxide 23.6 mmol/L (21.0-32.0); Chloride 105 mmol/L (98-108); Creatinine, Serum 0.92 mg/dL (0.70-1.20); EST Glomerular Filtration Rate 69 (>60); Glucose 148 mg/dL (70-99); Potassium 3.4 mmol/L (3.3-5.1); Sodium Level 141 mmol/L (133-145)
== END 2024-09-18 23:59 ==
LOC: BIMLAB 11:25
PROVIDERS: PCP Internal Medicine; Referring Provider Internal Medicine; Visit Provider Internal Medicine
DX: Z86.711 Personal history of pulmonary embolism (principal); R60.0 Localized edema
CPT/HCPCS: 36415; 80048; 85610

== ENCOUNTER 2024-10-17 08:26 | Outpatient (RCR) | payer MEDICARE, SELFPAY ==
[2024-09-27 13:45] LABS: Absolute Lymphocyte Count 1.76 X10^3/uL (0.83-4.51); Absolute Neutrophil Count 5.6 X10^3/uL (2.0-7.7); Basophil# 0.07 X10^3/uL; Basophil% 0.8 % (0-1); Eosinophil# 0.13 X10^3/uL; Eosinophils% 1.6 % (0-5); Hematocrit 36.6 % (37-47); Lymphocyte # 1.76 X10^3/ul (0.83-4.51); Lymphocyte % 21.1 % (19-41); Mean Corp Hgb Conc 27.3 g/dL (32-36); Mean Corpuscular Hgb 19.9 pg (27.0-32.0); Mean Corpuscular Volume 72.8 fL (81-99); Mean Platelet Vol. 11.2 fl (6.2-12.0); Monocyte# 0.75 X10^3/uL; NRBC Flagged by Analyzer 0 % (0-5); Neutrophil # 5.61 X10^3/uL (2.7-7.7); Neutrophil % 67.3 % (47-70); POSITIVE MORPHOLOGY YES; Platelet Count 221 K/mm3 (150-450); RBC Distribution Width CV 21.3 % (11.6-14.6); RBC Distribution Width SD 53.1 fl (35.1-43.9); Red Blood Count 5.03 M/mm3 (4.2-5.4); White Blood Count 8.3 K/mm3 (4.4-11.0)
[2024-09-27 13:54] LABS: International Normalized Ratio 1.9; Prothrombin Time (Protime)PT. 21.7 SECONDS (11.7-14.9)
[2024-09-27 14:02] LABS: Differential Indicated SCAN CRITERIA MET
[2024-09-27 14:08] LABS: ALB/GLOB Ratio 1.3 RATIO (0.9-2.4); AST(SGOT) 19 U/L (<=31); Alanine Aminotransfer ALT/SGPT 16 U/L (<=34); Albumin, Serum 3.7 g/dL (3.4-4.8); Alkaline Phosphatase 77 U/L (35-104); Anion Gap 9 (5-15); BUN 19 mg/dL (4-19); BUN/Creat Ratio 23.8 RATIO (10-20); Calcium,Total 8.6 mg/dL (7.6-11.0); Carbon Dioxide 24.2 mmol/L (21.0-32.0); Chloride 106 mmol/L (98-108); Creatinine, Serum 0.81 mg/dL (0.70-1.20); EST Glomerular Filtration Rate 79 (>60); Globulin 2.8 g/dL (2.2-4.2); Glucose 98 mg/dL (70-99); Potassium 3.9 mmol/L (3.3-5.1); Protein, Total 6.5 g/dL (5.9-8.4); Sodium Level 139 mmol/L (133-145); Total Bilirubin 0.58 mg/dL (0.00-1.30)
[2024-09-27 18:50] LABS: Anisocytosis 2+; Platelet Estimate ADEQUATE (ADEQ)
[2024-09-27 18:51] LABS: Hypochromasia 1+; Polychromasia 2+
[2024-10-17 13:37] LABS: International Normalized Ratio 2.3; Prothrombin Time (Protime)PT. 25.6 SECONDS (11.7-14.9)
== END 2024-10-19 23:59 ==
LOC: BIMLAB 08:26
PROVIDERS: PCP Internal Medicine; Referring Provider Internal Medicine; Visit Provider Internal Medicine
DX: Z86.711 Personal history of pulmonary embolism (principal); I10 Essential (primary) hypertension
CPT/HCPCS: 36415; 80053; 85025; 85610

== ENCOUNTER 2024-12-10 18:08 | Inpatient (IN) | payer MEDICARE, SELFPAY ==
[2024-12-10] VITALS (7 sets, daily range): BP systolic 113–155; BP diastolic 64–94; PULSE 82–123; RESP 20–38; TEMP 36.2–36.9; O2SAT 91–100; BMI 31.1
--- NOTE | 2024-12-10 18:10 | EKG12_ITS ---
Test Reason : CP Blood Pressure : */* mmHG Vent. Rate : 124 BPM Atrial Rate : 308 BPM P-R Int : * ms QRS Dur : 74 ms QT Int : 342 ms P-R-T Axes : * 109 35 degrees QTcB Int : 491 ms Atrial flutter with variable A-V block with premature ventricular or aberrantly conducted complexes Rightward axis Septal infarct , age undetermined Abnormal ECG Confirmed by Param Dominguez ([id number]), sports editor JESSICA ROMO ([id number]) on 12/12/2024 11:50:24 AM Referred By: Confirmed By: Param Dominguez
--- NOTE | 2024-12-10 18:31 | ED.VIS.DYS ---
HPI History of Present Illness Chief Complaint: Shortness of Breath [facility] Medical History Ulcer of left lower extremity with fat layer exposed Congestive heart failure Bradycardia Heart failure with reduced ejection fraction Cardiac LV ejection fraction of 20-34% Irregular heart beat Atrial fibrillation Former smoker Ulcer of right lower extremity Lower extremity edema Dyspnea on exertion Diastolic heart failure Acute lumbar myofascial strain Acute thoracic myofascial strain Back pain Debility, unspecified Return to work evaluation Right renal mass Angina of effort Acute hypokalemia Chest pain Non-ST elevation NV (NSTEMI) Atrial flutter Borderline type 2 diabetes mellitus GERD (gastroesophageal reflux disease) Acute low back pain Elevated random blood glucose level Anxiety and depression Menopausal disorder Melanoma Preoperative clearance Flu vaccine need 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 use of rn long term care 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 Obesity Elevated troponin (08/09/20) Hyperlipidemia Nicotine dependence History of pulmonary embolus (PE) (08/10/20) Essential hypertension Wound of left lower extremity Insomnia Change in skin mole Heart failure with preserved ejection fraction Shortness of breath Osteoarthritis of left knee Chronic pain of left knee Tobacco use Arthritis Acute hypoxemic respiratory failure (08/09/20) Home Medications Medication Instructions Recorded Last Taken Type acetaminophen 500 mg tablet 1,000 mg (2 x 500 mg) PO .Q 8h PRN 11/18/24 Unknown Rx fever or pain 30 days #30 tabs atorvastatin 20 mg tablet 20 mg PO QHS #90 tabs 11/18/24 Unknown Rx carvedilol 3.125 mg tablet 3.125 mg PO BIDCM 1 month #60 tabs 11/18/24 Unknown Rx furosemide 40 mg tablet 40 mg PO BIDLX 30 days #60 tabs 11/18/24 Unknown Rx lidocaine HCl 4 % lotion 1 applic topical BID-QID PRN pain 11/18/24 Unknown Rx #118 mL lisinopril 20 mg tablet 20 mg PO DAILY 30 days #30 tabs 11/18/24 Unknown Rx potassium chloride 20 mEq 20 meq PO DAILY SUPPLEMENT #30 tabs 11/18/24 Unknown Rx tablet,extended release warfarin 5 mg tablet 5 mg PO QDAY #60 tabs 11/18/24 Unknown Rx mupirocin 2 % topical ointment 1 applic topical BID #22 grams 11/25/24 Unknown Rx (Centany) sulfamethoxazole 800 1 tab PO BID #14 tabs 11/25/24 Unknown Rx mg-trimethoprim 160 mg tablet (Bactrim DS) Allergy/AdvReac Type Severity Reaction Status Date / Time latex Allergy Mild rash Verified 12/10/24 18:09 trazodone Allergy Mild Tingling Verified 12/10/24 18:09 coconut Allergy Unknown PT UNABLE Verified 12/10/24 18:09 TO RESPOND-NEEDS F/U Fish Containing Products Allergy Unknown PT UNABLE Verified 12/10/24 18:09 TO RESPOND-NEEDS F/U propoxyphene (From Allergy Hives Verified 12/10/24 18:09 Darvocet-N) acetaminophen (From AdvReac Intermediate Nausea/Vom/ Verified 12/10/24 18:09 Darvocet-N) Diarrhea Family History Other Anxiety Arthritis Depression Hypertension Thyroid disorder Surgical History H/O tubal ligation History of cholecystectomy H/O elbow surgery Social History housing: house Smoking Status: Former smoker alcohol intake: never substance use type: does not use what type of physical activity do you participate in: walking frequency: 5-6 times per week EXAM Physical Exam Const Vital Signs: 12/10/24 18:09 12/10/24 18:15 12/10/24 19:08 Temperature 98.5 F Temperature Source Oral Pulse Rate 123 H 114 H Respiratory Rate 20 H 20 H Respiratory Effort Short of Breath Respiratory Depth Shallow Respiratory Pattern Tachypnea Blood Pressure 155/83 H 125/94 H Blood Pressure Mean 107 104 Pulse Ox 98 100 Oxygen Delivery Method Nasal Cannula Nasal Cannula Oxygen Flow Rate (L/min) 2 2 12/10/24 20:00 12/10/24 21:00 Temperature Temperature Source Pulse Rate 84 96 Respiratory Rate 30 H 30 H Respiratory Effort Respiratory Depth Respiratory Pattern Blood Pressure 113/87 H 114/64 Blood Pressure Mean 95 80 Pulse Ox 91 98 Oxygen Delivery Method Room Air Room Air Oxygen Flow Rate (L/min) MDM MDM MDM Narrative Medical decision making narrative: HISTORY OF PRESENT ILLNESS: Chief complaint: Shortness of breath, chest pain 69-year-old female history of atrial fibrillation, type 2 diabetes, CHF, thoracic abdominal aneurysm, PE on warfarin presents with 1 day of chest pain and shortness of breath. Notes that she typically shortness of breath secondary to heart failure and COPD however has been worse over the last several days. She notes lower extremity edema, orthopnea. Notes she ran out of money and cannot buy Lasix so she is been out of her Lasix for last several days. She notes chest pain that began this morning. Notes it resolved prior to arrival. She does note compliance with her home warfarin. She denies hemoptysis, unilateral leg swelling, recent surgery, chemotherapy or estrogen use. She denies ripping or tearing pain. She denies cough fever or chills or sick contacts. REVIEW OF SYSTEMS: Pertinent positives: Chest pain, shortness of breath, leg swelling Pertinent negatives: Syncope, focal weakness PHYSICAL EXAM: Nursing triage notes reviewed, Vital signs reviewed Constitutional: please see mdm HENT: MMM Eyes: Pupils equal round and reactive to light, Extraocular muscles intact Neck: No stridor, no JVD, full neck ROM Lungs: Clear to auscultation, slight increased work of breathing, bilateral rales Heart: Regular rate and rhythm, No murmurs, No rubs and No gallops, 2+ distal pulses (radial, femoral, posterior tibial) in all extremities Abdomen: Soft, there is no tenderness, rigidity, rebound or guarding, no obvious peritoneal signs, no palpable pulsatile abdominal masses, no auscultated abdominal bruit : No CVAT Extremities: 1-2+ pitting edema bilateral lower extremities Neuro: No new focal neurological deficits, cranial nerves II through XII intact, 5/5 strength in all present extremities. Intact sensation to light touch in all present extremities, 2+ reflexes bilateral patella tendons. Skin: No rash or lesions noted MEDICAL DECISION MAKING: Chief Complaint: please see HPI External records reviewed: Last hospitalization in August for acute exacerbation of CHF Factors affecting care: As per HPI Social determinants of health: History obtained from others: EMS Consults: Internal medicine (Dr. Gary) MDM Narrative: The patient was initially hypertensive with a blood pressure 155/83, tachycardic with heart rate of 123, tachypneic with respirate of 20, she was saturating 98% on room air on my exam. Lungs with rales bilaterally. 1+ pitting edema bilateral lower extremities noted. Clinical exam most consistent with CHF exacerbation likely exacerbated by A-fib/flutter with RVR I considered the following differential diagnosis: CHF exacerbation, arrhythmia, anemia, ACS, PE, electrolyte disturbance I obtained a broad lab and imaging workup to further elucidate to further determine if the patient was suffering from a life-threatening etiology. Initially treat the patient with IV metoprolol to slow her initial fast rate. ALL IMAGES (IF OBTAINED) HAVE BEEN PERSONALLY REVIEWED AND INTERPRETED BY MYSELF. Initial EKG with A-fib/a flutter rate of 124, right axis deviation, occasional PVCs, prolonged QTc at 491, no STEMI CBC with no leukocytosis, noted baseline mild anemia, no thrombocytopenia No coagulopathy noted BMP without significant [place] abnormalities, no acute kidney Initial troponin indeterminate, delta troponin also indeterminate will wait for third Initial BNP elevated consistent with CHF Chest x-ray was read reviewed myself showed evidence of pulmonary edema consistent with CHF exacerbation The synthesis of the patient's history, physical exam, labs images suggest likely CHF exacerbation. This was treated 60 mg IV Lasix. On reevaluation patient heart rate improved to 96 blood pressure was 114/64 she remained tachypneic. She is appropriate for admit to PCU. Discussed hospitalist Dr. Gary The patient and/or family, caregivers express understanding. The patient and/or family, caregivers agrees with the plan. Shared decision making: I will have a discussion with the patient and or visitors regarding risk/benefits of further testing or admission. They will be made aware of of the risk/benefits inherent in this decision they will be given the opportunity to voice understanding. Total critical care time today provided was at least 0 minutes. This excludes separately billable procedures. Critical care time (if documented) is secondary to the patient having high probability of clinically significant/life threatening deterioration in the patient's condition which required my urgent intervention. Impression: 1. Dyspnea 2. History of CHF 3. A-fib/a flutter with RVR Dispo: Admit to PCU This note was generated with [employer] dictation software. It may contain incorrect words, spelling, and punctuation that were not noted in review of the chart prior to signing. Lab Data Labs: Laboratory Results - last 24 hr 12/10/24 12/10/24 18:13 20:16 WBC 7.8 RBC 4.93 Hgb 9.9 L Hct 35.5 L MCV 72.0 L MCH 20.1 L MCHC 27.9 L RDW Std Deviation 56.9 H RDW Coeff of Ele 22.5 H Plt Count 344 MPV 9.7 Immature Gran % (Auto) 0.500 Neut % (Auto) 71.0 H Lymph % (Auto) 18.5 L [place] % (Auto) 8.0 Eos % (Auto) 1.1 Baso % (Auto) 0.9 Absolute Neuts (auto) 5.6 Absolute Lymphs (auto) 1.45 Nucleated RBC % 0.4 Differential Comment SCANNED Platelet Estimate ADEQUATE Polychromasia 1+ Anisocytosis 2+ PT 21.2 H INR 1.8 Sodium 139 Potassium 4.0 Chloride 105 Carbon Dioxide 21.9 Anion Gap 12 BUN 15 Creatinine 0.76 Estim Creat Clear Calc 73.39 Est GFR (MDRD) Non-Af 86 BUN/Creatinine Ratio 19.0 Glucose 86 Calcium 8.5 Troponin T High Sens 34 H Troponin T Hi Sens 2 Hr 38 H NT pro BNP II 6070 H Radiography Diagnostic Testing: Clinical Impression(s) from Imaging Studies Chest X-Ray 12/10/24 19:15 IMPRESSION: Probable mild edema in the setting of cardiomegaly. Reading Location: [facility] Discharge Plan Triage Chief Complaint: Shortness of Breath ED Provider: Devyn Houston Dx/Rx/DC Orders Prescriptions: No Action sulfamethoxazole-trimethoprim [Bactrim DS] 800-160 mg tablet 1 tab PO BID Qty: 14 0RF mupirocin [Centany] 2 % ointment 1 applic topical BID Qty: 22 0RF acetaminophen 500 mg tablet 1,000 mg PO .Q 8h PRN (Reason: fever or pain) 30 Days Qty: 30 0RF atorvastatin 20 mg tablet 20 mg PO QHS Qty: 90 2RF carvedilol 3.125 mg tablet 3.125 mg PO BIDCM 30 Days Qty: 60 2RF Rx Instructions: Hold for heart less than 50 or systolic blood pressure less than 100 mmHg. furosemide 40 mg tablet 40 mg PO BIDLX 30 Days Qty: 60 2RF lidocaine HCl 4 % lotion 1 applic topical BID-QID PRN (Reason: pain) Qty: 118 2RF lisinopril 20 mg tablet 20 mg PO DAILY 30 Days Qty: 30 2RF potassium chloride 20 mEq tablet extended release 20 meq PO DAILY Qty: 30 1RF warfarin 5 mg tablet 5 mg PO QDAY Qty: 60 1RF Rx Instructions: Take 5 mg daily for 6 days of the week and 7.5mg on one day of the week Primary Care Provider: Abdulaziz Ackerman Referrals: Abdulaziz Ackerman MD [Primary Care Provider] - Print Language: Niuean
[2024-12-10 19:12] LABS: Hematocrit 35.5 % (37-47); Hemoglobin 9.9 g/dL (12.0-15.0); Immature Granulocytes Count 0.040 X10^3/uL (0.0-0.0); Mean Corp Hgb Conc 27.9 g/dL (32-36); Mean Corpuscular Volume 72.0 fL (81-99); Mean Platelet Vol. 9.7 fl (6.2-12.0); NRBC Flagged by Analyzer 0.4 % (0-5); POSITIVE MORPHOLOGY YES; Platelet Count 344 K/mm3 (150-450); RBC Distribution Width CV 22.5 % (11.6-14.6); RBC Distribution Width SD 56.9 fl (35.1-43.9); Red Blood Count 4.93 M/mm3 (4.2-5.4); White Blood Count 7.8 K/mm3 (4.4-11.0)
--- NOTE | 2024-12-10 19:15 | RAD_ITS ---
PROCEDURE: CHEST 1 VIEW (PORTABLE) 12/10/2024 REASON FOR EXAM: CHEST PAIN, SHORTNESS OF BREATH TECHNIQUE: Frontal view of the chest. COMPARISON: 08/2024. FINDINGS: The heart is enlarged. Mild vascular indistinctness of the lung bases suggestive of mild edema. Left midlung linear opacity which may represent mild atelectasis or scar. Atherosclerosis of the aorta. RAD/Chest 1 View (Portable) IMPRESSION: Probable mild edema in the setting of cardiomegaly. Reading Location: [id number]
--- NOTE | 2024-12-10 19:25 | ED.RN ---
pt unaware of home meds
[2024-12-10 19:34] LABS: Anion Gap 12 (5-15); BUN 15 mg/dL (4-19); BUN/Creat Ratio 19.0 RATIO (10-20); Calcium,Total 8.5 mg/dL (7.6-11.0); Carbon Dioxide 21.9 mmol/L (21.0-32.0); Chloride 105 mmol/L (98-108); Estimated Creatinine Clearance 73.39 ml/min (50-250); Glucose 86 mg/dL (70-99); Potassium 4.0 mmol/L (3.3-5.1); Pro- Brain NATRIURETIC PEPTIDE 6070 pg/mL (<=900)
[2024-12-10 19:45] LABS: Prothrombin Time (Protime)PT. 21.2 SECONDS (11.7-14.9)
[2024-12-10 19:47] LABS: Troponin T High Sensitivity 34 ng/L (<=14)
[2024-12-10 19:52] LABS: Differential Indicated SCAN CRITERIA MET
[2024-12-10 21:03] LABS: Troponin T High Sens 2 HR 38 ng/L (<=14)
[2024-12-10 21:22] LABS: Differential Comment SCANNED
[2024-12-10 21:23] LABS: Anisocytosis 2+; Polychromasia 1+
--- NOTE | 2024-12-10 21:32 | PCM.HP.STD ---
HPI - General General Date of Admission: 12/10/24 Date of Service: 12/10/24 Chief Complaint: Dyspnea. HPI Narrative The patient is a 69 y/o F w/ PMHx: Obesity, HFrEF, HTN, HLD, PAF/Flutter, Former tobacco use, Anxiety and Depression, GERD, Prediabetes (07/24/24 Hgb 6.1%), Chronic microcytic anemia, CKD stage II per GFR trending, most recent discharge 08/24/2024 following evaluation and treatment of heart failure with reduced EF, PAF with RVR with intermittent bradycardia and pauses with plan at that discharge for possible future pacemaker for tachybradycardia syndrome in order to be able to initiate beta-latisha in the setting of low EF with plan at discharge for Holter monitor/event monitor with no follow-up with cardiology noted in [facility] system with patient instructed to follow-up within [address] Dominguez per discharge instructions for now presents to the [facility] ED on 12/10/24 with history of dyspnea ongoing over the last several days noting that she ran out of money and was unable to purchase her Lasix therapy with onset chest discomfort starting on a.m. on day of presentation resolving prior to ED presentation. Workup in the ED included T98.5, heart 123, BP 155/83, respiratory rate 20, 98% on 2 L nasal cannula with most recent repeat vitals heart rate 114, BP 125/94, respiratory rate 20, 100% on 2 L nasal cannula, BMP with BUN/creatinine 15/0.76, GFR 86, CBC with WBC 7.8, hemonine 0.9, MCV 72, platelet 344 without marked shift, NT proBNP 6070, chest x-ray with mild edema in the setting of cardiomegaly, troponin initial 34 with repeat delta 38, INR 1.8, EKG with A-fib with rate 124 with occasional PVC with QTc 491. In the ED patient administered Lasix 60 mg IV x 1, Toradol 50 mg IV x 1, metoprolol 5 mg IV x 1, morphine 2 mg IV x 1. [facility] Medical History Ulcer of left lower extremity with fat layer exposed Congestive heart failure Bradycardia Heart failure with reduced ejection fraction Cardiac LV ejection fraction of 20-34% Irregular heart beat Atrial fibrillation Former smoker Ulcer of right lower extremity Lower extremity edema Dyspnea on exertion Diastolic heart failure Acute lumbar myofascial strain Acute thoracic myofascial strain Back pain Debility, unspecified Return to work evaluation Right renal mass Angina of effort Acute hypokalemia Chest pain Non-ST elevation [place] (NSTEMI) Atrial flutter Borderline type 2 diabetes mellitus GERD (gastroesophageal reflux disease) Acute low back pain Elevated random blood glucose level Anxiety and depression Menopausal disorder Melanoma Preoperative clearance Flu vaccine need Current use of group home 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 Obesity Elevated troponin (08/09/20) Hyperlipidemia Nicotine dependence History of pulmonary embolus (PE) (08/10/20) Essential hypertension Wound of left lower extremity Insomnia Change in skin mole Heart failure with preserved ejection fraction Shortness of breath Osteoarthritis of left knee Chronic pain of left knee Tobacco use Arthritis Acute hypoxemic respiratory failure (08/09/20) Home Medications Medication Instructions Recorded Last Taken Type acetaminophen 500 mg tablet 1,000 mg (2 x 500 mg) PO .Q 8h PRN 11/18/24 Unknown Rx fever or pain 30 days #30 tabs atorvastatin 20 mg tablet 20 mg PO QHS #90 tabs 11/18/24 Unknown Rx carvedilol 3.125 mg tablet 3.125 mg PO BIDCM 1 month #60 tabs 11/18/24 Unknown Rx furosemide 40 mg tablet 40 mg PO BIDLX 30 days #60 tabs 11/18/24 Unknown Rx lidocaine HCl 4 % lotion 1 applic topical BID-QID PRN pain 11/18/24 Unknown Rx #118 mL lisinopril 20 mg tablet 20 mg PO DAILY 30 days #30 tabs 11/18/24 Unknown Rx potassium chloride 20 mEq 20 meq PO DAILY SUPPLEMENT #30 tabs 11/18/24 Unknown Rx tablet,extended release warfarin 5 mg tablet 5 mg PO QDAY #60 tabs 11/18/24 Unknown Rx mupirocin 2 % topical ointment 1 applic topical BID #22 grams 11/25/24 Unknown Rx (Centany) sulfamethoxazole 800 1 tab PO BID #14 tabs 11/25/24 Unknown Rx mg-trimethoprim 160 mg tablet (Bactrim DS) Allergy/AdvReac Type Severity Reaction Status Date / Time latex Allergy Mild rash Verified 12/10/24 18:09 trazodone Allergy Mild Tingling Verified 12/10/24 18:09 coconut Allergy Unknown PT UNABLE Verified 12/10/24 18:09 TO RESPOND-NEEDS F/U Fish Containing Products Allergy Unknown PT UNABLE Verified 12/10/24 18:09 TO RESPOND-NEEDS F/U propoxyphene (From Allergy Hives Verified 12/10/24 18:09 Darvocet-N) acetaminophen (From AdvReac Intermediate Nausea/Vom/ Verified 12/10/24 18:09 Darvocet-N) Diarrhea Family History (Updated 12/10/24 @ 22:[address] Samantha Gary MD) Mother Anxiety Arthritis Depression Hypertension Father Anxiety Arthritis Depression Hypertension Other Thyroid disorder Surgical History H/O tubal ligation History of cholecystectomy H/O elbow surgery Social History housing: house Smoking Status: Former smoker alcohol intake: never substance use type: does not use what type of physical activity do you participate in: walking frequency: 5-6 times per week ROS ROS Narrative Admission Review of Systems: CONSTITUTIONAL: No weight loss, fever, chills, +weakness or fatigue. HEENT: Eyes: No visual loss, blurred vision, double vision or yellow sclerae. Ears, Nose, Throat: No hearing loss, sneezing, congestion, runny nose or sore throat. SKIN: No rash or itching, lesions, wounds. CARDIOVASCULAR: + Chest pain, edema, orthopnea. No palpitations, syncopal events. RESPIRATORY: + Dyspnea. No cough or sputum, wheezing, hemoptysis. GASTROINTESTINAL: No anorexia, nausea, vomiting or diarrhea, abdominal pain, melena, BRBPR. GENITOURINARY: No dysuria, frequency, urgency or retention. NEUROLOGICAL: No headache, dizziness, syncope, paralysis, ataxia, numbness or tingling in the extremities, focal weakness, change in bowel or bladder control, seizure. MUSCULOSKELETAL: + muscle, back pain, joint pain or stiffness. HEMATOLOGIC: + Chronic anemia, easy bleeding/bruising. LYMPHATICS: No enlarged nodes. No history of splenectomy. PSYCHIATRIC: + History of anxiety and depression. ENDOCRINOLOGIC: No reports of sweating, cold or heat intolerance. No polyuria or polydipsia. ALLERGIES: + History of hives. Vital Signs Vital Signs Vital Signs: 12/10/24 18:09 12/10/24 18:15 12/10/24 19:08 Temperature 98.5 F Temperature Source Oral Pulse Rate 123 H 114 H Respiratory Rate 20 H 20 H Respiratory Effort Short of Breath Respiratory Depth Shallow Respiratory Pattern Tachypnea Blood Pressure 155/83 H 125/94 H Blood Pressure Mean 107 104 Pulse Ox 98 100 Oxygen Delivery Method Nasal Cannula Nasal Cannula Oxygen Flow Rate (L/min) 2 2 12/10/24 20:00 12/10/24 21:00 Temperature Temperature Source Pulse Rate 84 96 Respiratory Rate 30 H 30 H Respiratory Effort Respiratory Depth Respiratory Pattern Blood Pressure 113/87 H 114/64 Blood Pressure Mean 95 80 Pulse Ox 91 98 Oxygen Delivery Method Room Air Room Air Oxygen Flow Rate (L/min) Weight Weight: 187 lb Body Mass Index (BMI) 31.1 Physical Exam Narrative Physical Examination: General: Awake, alert, oriented x 3 and cooperative, seated upright in the ED bed, fatigued. Skin: Normal color, normal turgor, no icterus, no cyanosis except occasional stage ecchymoses, abrasion, bilateral lower extremity venous stasis skin changes. HEENT: AT/NC, EOMI, PERRLA, MMM, no carotid bruits, + JVD noted. Lungs: Diminished, greater bases, mildly increased respiratory rate but no distress, mild rales bilateral bases, no rhonchi or wheezing. Heart: Irregular, rate improved; no gallop, rub audible. Abdomen: Soft, obese, NTTP, ND, distant normal BS, no appreciated HSM. Extremities: No cyanosis, no clubbing, pedal to knee 2-3+ pitting edema. Neurological: Patient awake, alert, oriented as noted, cognitive function intact; pupils equally reactive to light and accommodation, cranial nerves grossly normal, moving all 4 extremities, no focal deficits, strength moderately to severely global decreased Psychiatric: Affect appears flat, fatigued, no acute evidence of depressive or anxiety feelings but does have underlying history. Results Lab / Micro Data 12/10/24 18:13 12/10/24 18:13 Labs: Laboratory Results - last 24 hr 12/10/24 18:13: WBC 7.8, RBC 4.93, Hgb 9.9 L, Hct 35.5 L, MCV 72.0 L, MCH 20.1 L, MCHC 27.9 L, RDW Std Deviation 56.9 H, RDW Coeff of Ele 22.5 H, Plt Count 344, MPV 9.7, Immature Gran % (Auto) 0.500, Neut % (Auto) 71.0 H, Lymph % (Auto) 18.5 L, [place] % (Auto) 8.0, Eos % (Auto) 1.1, Baso % (Auto) 0.9, Absolute Neuts (auto) 5.6, Absolute Lymphs (auto) 1.45, Nucleated RBC % 0.4, Differential Comment SCANNED, Platelet Estimate ADEQUATE, Polychromasia 1+, Anisocytosis 2+, PT 21.2 H, INR 1.8, Sodium 139, Potassium 4.0, Chloride 105, Carbon Dioxide 21.9, Anion Gap 12, BUN 15, Creatinine 0.76, Estim Creat Clear Calc 73.39, Est GFR (MDRD) Non-Af 86, BUN/Creatinine Ratio 19.0, Glucose 86, Calcium 8.5, Troponin T High Sens 34 H, NT pro BNP II 6070 H 12/10/24 20:16: Troponin T Hi Sens 2 Hr 38 H Imaging Radiology Impression Chest X-Ray 12/10/24 19:15 IMPRESSION: Probable mild edema in the setting of cardiomegaly. Reading Location: [id number] Assessment & Plan Assessment/Plan (1) Congestive heart failure: (2) Atrial fibrillation: PLAN: Plan The patient is a 69 y/o F w/ PMHx: Obesity, HFrEF, HTN, HLD, PAF/Flutter, Former tobacco use, Anxiety and Depression, GERD, Prediabetes (07/24/24 Hgb 6.1%), Chronic microcytic anemia, CKD stage II per GFR trending, most recent discharge 08/24/2024 following evaluation and treatment of heart failure with reduced EF, PAF with RVR with intermittent bradycardia and pauses with plan at that discharge for possible future pacemaker for tachybradycardia syndrome in order to be able to initiate beta-latisha in the setting of low EF with plan at discharge for Holter monitor/event monitor with no follow-up with cardiology noted in [facility] system with patient instructed to follow-up within [address] Dominguez per discharge instructions for now presents to the [facility] ED on 12/10/24 with history of dyspnea ongoing over the last several days noting that she ran out of money and was unable to purchase her Lasix therapy with onset chest discomfort starting on a.m. on day of presentation resolving prior to ED presentation. #1. Acutely Decompensated HFrEF Exacerbation with associated #2 with mildly elevated troponins of unclear significance likely secondary to demand ischemia: CXR obtained in the ED w/ mild edema in the setting of cardiomegaly. Patient administered IV lasix in the ED, will admit to PCU, maintain on cardiac telemetry obtain cardiac enzyme series, obtain serial EKGs, continue IV lasix diuresis, monitor I/Os, maintain on intake restriction, continue medical therapy, obtain TSH and magnesium level. Most recent ECHO noted 08/21/2024 with normal LV size, LVEF 20%, severe global hypokinesis LV, moderately enlarged LA, mild to moderate MVI, mildly dilated aortic root, RA mildly enlarged thus will defer repeat. #2. Paroxsymal atrial fibrillation/paroxysmal atrial flutter w/ RVR with prolonged QTc 491: EKG in ED w/ atrial fibrillation w/ RVR. Patient administered IV Lopressor in ED. Will maintain on telemetry, obtain cardiac enzyme serial set, obtain magnesium level, recent echocardiogram as noted above thus will defer repeat, will obtain TSH level. Will continue Coumadin with INR trending with an additional dose x 1 given subtherapeutic INR upon presentation. Will continue patient low-dose Coreg. #3. Concern for recurrent cardiac pauses, possibly tachybradycardia syndrome: Recent presentation with concerns, noted plan at most recent discharge for outpatient Holter monitor/event monitor and cardiology follow-up but from records does not appear that patient followed up, TSH, magnesium requested, maintain on telemetry. #4. Hypertension: Continue home regimen including lisinopril, Coreg low-dose, IV Cardizem as noted, IV Lasix, PRN hydralazine. #5. Hyperlipidemia: Continue home statin regimen. AM FLP. #6. Chronic microcytic anemia: Admission hemoglobin 9.9, MCV 72, baseline hemoglobin 10, continue to trend. #7. Chronic Kidney Disease Stage II per GFR trending: Admission BUN/Cr 15/0.76, GFR 86, baseline renal function 0.6-1.1, repeat BMP in AM. #8. Anxiety and depression: Per current list does not appear to be on regimen, encourage continued outpatient follow-up and evaluation with PCP as previously arranged. #9. Prediabetes: Per current list patient is not on regimen, will maintain on ADA diet, accu checks w/ ISS. #10. Former tobacco use: Encourage continued tobacco cessation. #11. Obesity: Weight loss and lifestyle changes encouraged. #12. GERD: Per current list not on regimen, will have Mylanta if necessary. #13. DVT prophylaxis: Will continue Coumadin with INR trending with an additional dose x 1 given subtherapeutic INR. #14. CODE status: Patient HCPOA is per sister she notes and living will is currently in place. Discussed CODE status at length including difference between FULL code, DNR-CCA and DNR-CC status. Following discussions about the differences in these status, requested Full Code status. Advanced Care Planning Face to Face Time: 16 minutes. Charges/Coding Visit Charges Inpatient E&M: 18262 Init Hosp L3 Procedures Hospitalists Procedures: 25605 Advncd Care Plan 30 Min
[2024-12-10 22:09] LABS: Magnesium 2.0 mg/dL (1.5-2.2)
--- OUTSIDE RECORDS SUMMARY | 2024-12-10 22:39 | XMS RPT_ITS | CCD ---
Author Organization [facility] Care Team Providers Care Restoration Ecologist Name Role Phone AMELIA HAMMOND (FINISH CARPENTER) Unavailable Unava ilAILYN John (FINISH CARPENTER) Unavailable Unavailable Dr. Abdulaziz Ackerman Primary Care Provider [phone] 0) Dr. Abdulaziz Ackerman Referring Provider [phone] Dr. Jamal Munoz Attending Provider [phone] ZACK Abel Attending Provider Unavailab Dr. Abdulaziz Torres Primary Care Provider 1(33 0) Dr. Abdulaziz Akcerman Referring Provider [phone] ZACK Abel Attending Provider Unavailab guy Valderrama OUTBOARD MOTORS EXPERIMENTAL MECHANIC, OUTBOARD MOTORS EXPERIMENTAL MECHANIC-C Jimmy Attending Provider 1(330) Unavailable Primary Care Provider UnavailDr. Abdulaziz Leonardo Primary Care Provider 1(33 0) Dr. Abdulaziz Ackerman Referring Provider [phone])2 Dr. Jamal Munoz Attending Provider [phone] Lavelle OUTBOARD MOTORS EXPERIMENTAL MECHANIC, OUTBOARD MOTORS EXPERIMENTAL MECHANIC-C Jimmy Referring Provider 1(330) Dr. Abdulaziz Ackerman Attending Provider [phone])2 Dr. Abdulaziz Ackerman Primary Care Provider 1(33 0) Dr. Abdulaziz Acekrman Referring Provider [phone] Lavelle OUTBOARD MOTORS EXPERIMENTAL MECHANIC, OUTBOARD MOTORS EXPERIMENTAL MECHANIC-C Jimmy Attending Provider [phone] Dr. Abdulaziz Ackerman Primary Care Provider 1(33 0) Dr. Abdulaziz Ackerman Referring Provider [phone])2 Lavelle OUTBOARD MOTORS EXPERIMENTAL MECHANIC, OUTBOARD MOTORS EXPERIMENTAL MECHANIC-C Jimmy Attending Provider [phone] Dr. Abdulaziz Ackerman Attending Provider [phone])2 ZACK Abel Attending Provider Dr. Abdulaziz Brown Primary Care Provider [phone] Dr. Abdulaziz Ackerman Referring Provider [phone])2 ZACK Abel Attending Provider Dr. Abdulaziz Brown Attending Provider [phone])2 Dr. Abdulaziz Ackerman Primary Care Provider 1(33 0) Dr. Abdulaziz Ackerman Referring Provider [phone])2 Lavelle OUTBOARD MOTORS EXPERIMENTAL MECHANIC, OUTBOARD MOTORS EXPERIMENTAL MECHANIC-C Jimmy Attending Provider 1(330) Dr. Maury Flores Emergency Provider Dr. Jimmy Clark Admit Provider Dr. Jimmy Clark Attending Provider Dr. Jimmy Clark Other Provider Dr. Jamal Munoz Attending Provider Dr. Jamal Munoz Other Provider Dr. Tucker Dodson Other Provider Dr. Abdulaziz Ackerman Primary Care Provider 1(33 0) Dr. Jimmy Clark Referring Provider ZACK Landers Attending Provider Dr. Abdulaziz Ackerman Referring Provider [phone])2 Dr. Tucker Dodson Attending Provider Dr. Abdulaziz Ackerman Attending Provider [phone])2 ZACK Faith Attending Provider Dr. Abdulaziz Ackerman Primary Care Provider 1(33 0) Dr. Abdulaziz Ackerman Referring Provider [phone])2 ZACK Faith Attending Provider SUSANA Perez Attending Provider [phone] Meka, Dr. Cintron Primary Care Provider [phone] Meka, Dr. Cintron Referring Provider [phone])2 Meka, Dr. Cintron Primary Care Provider [phone] Meka, Dr. Cintron Referring Provider [phone] SUSANA ePrez Attending Provider 1(330) Meka WHITTINGTON, Dr. Cintron Primary Care Provider Meka WHITTINGTON, Dr. Cintron Attending Provider 1(33 0) Meka WHITTINGTON, Dr. Cintron Referring Provider 1(33 0) Eladio Sherman Attending Provider Roland WHITTINGTON, Dr. Holland Emergency Provider Marcelino WHITTINGTON, Dr. Parekh Admit Provider Marcelino WHITTINGTON, Dr. Parekh Attending Provider Alberto WHITTINGTON, Dr. Virgen Other Provider Marcelino WHITTINGTON, Dr. Parekh Other Provider Tammy WHITTINGTON, Dr. Berry Attending Provider Cookie WHITTINGTON, Dr. Samantha Patton Attending Provider Domitila WHITTINGTON, Dr. Duarte Attending Provider Meka WHITTINGTON, Dr. Cintron Primary Care Provider Meka WHITTINGTON, Dr. Cintron Attending Provider 1(33 0) Meka WHITTINGTON, Dr. Cnitron Referring Provider [phone] Cookie WHITTINGTON, Dr. Samantha Patton Attending Provider Meka WHITTINGTON, Dr. Cintron Primary Care Provider Meka WHITTINGTON, Dr. Cintron Referring Provider 1(33 0) Meka WHITTINGTON, Dr. Cintron Attending Provider [phone] Sterling OUTBOARD MOTORS EXPERIMENTAL MECHANIC-CPaula Attending Provider [phone] Oleghe, Efewongbe Primary Care Unavailable Paula Katz Attending Unavailable Oleghe, Efewongbe Referring Unavailable Sara Perez Attending Unavailable Ferullo, Sara Referring Unavailable Oleghe, Efewongbe Primary Care Unavailable Oleghe, Efewongbe Primary Care Unavailable Oleghe, Efewongbe Referring Unavailable Oleghe, Efewongbe Attending Unavailable Nan Perezily Attending Unavailable Erickullo, Sara Referring Unavailable Oleghe, Efewongbe Primary Care Unavailable Sara Perez Attending Unavailable Oleghe, Efewongbe Primary Care Unavailable Oleghe, Efewongbe Primary Care Unavailable Oleghe, Efewongbe Attending Unavailable Eladio Sherman Referring Unavailable Oleghe, Efewongbe Primary Care Unavailable Oleghe, Efewongbe Attending Unavailable Oleghe, Efewongbe Referring Unavailable Oleghe, Efewongbe Primary Care Unavailable Oleghe, Efewongbe Referring Unavailable Oleghe, Efewongbe Attending Unavailable Oleghe, Efewongbe Primary Care Unavailable Oleghe, Efewongbe Referring Unavailable Sravanthi Marroquin Attending Unavailable ErickulloSara Attending Unavailable Oleghe, Efewongbe Primary Care Unavailable Erickullo Sara Referring Unavailable Oleghe, Efewongbe Primary Care Unavailable Jamal Munoz Attending Unavailable Iglesia Benson Admitting Unavailable Param Dominguez Consulting Unavailable Iglesia Benson Consulting Unavailable Oleghe, Efewongbe Primary Care Unavailable Jamal Munoz Attending Unavailable Oleghe, Efewongbe Primary Care Unavailable Oleghe, Efewongbe Referring Unavailable Oleghe, Efewongbe Attending Unavailable Oleghe, Efewongbe Primary Care Unavailable Oleghe, Efewongbe Referring Unavailable Oleghe, Efewongbe Attending Unavailable Oleghe, Efewongbe Primary Care Unavailable Oleghe, Efewongbe Attending Unavailable Oleghe, Efewongbe Referring Unavailable Oleghe, Efewongbe Primary Care Unavailable Oleghe, Efewongbe Referring Unavailable Eladio Sherman Attending Unavailable Paula Katz Attending Unavailable Oleghe, Efewongbe Primary Care Unavailable Oleghe, Efewongbe Referring Unavailable Jamal Munoz Attending Unavailable Oleghe, Efewongbe Primary Care Unavailable Oleghe, Efewongbe Primary Care Unavailable Oleghe, Efewongbe Referring Unavailable Oleghe, Efewongbe Attending Unavailable Iglesia Benson Attending Unavailable Felicia Ramesh Attending UnavailSamantha Huggins Attending Unavailable Param Dominguez Unavailable Oleghe, Efewongbe Primary Care Unavailable Marcelino, Iglesia Admitting Unavailable Iglesia Benson Attending Unavailable Oleghe, Efewongbe Primary Care Unavailable Oleghe, Efewongbe Attending Unavailable Oleghe, Efewongbe Referring Unavailable Oleghe, Efewongbe Primary Care Unavailable Oleghe, Efewongbe Referring Unavailable Oleghe, Efewongbe Attending Unavailable Oleghe, Efewongbe Primary Care Unavailable Oleghe, Efewongbe Referring Unavailable Aleida Londono Attending Unavail able Sara Perez Attending Unavailable Oleghe, Efewongbe Primary Care Unavailable Oleghe, Efewongbe Referring Unavailable Oleghe, Efewongbe Primary Care Unavailable Oleghe, Efewongbe Referring Unavailable Eladio Sherman Attending Unavailable Oleghe, Efewongbe Primary Care Unavailable Oleghe, Efewongbe Referring Unavailable Oleghe, Efewongbe Attending Unavailable Allergies Allergy Classification Reported Allergen(s) Allergy Type Date of Onset Reaction(s) Facility (3 sources) PROPOXYPHENE N-ACETAMINOPHEN; Translations: [PROPOXYPHENE N-ACETAMINOPHEN] Propensity to adverse reactions to drug (disorder) 7 [facility] Repository (1 source) NO KNOWN ALLERGIES; Translations: [NO KNOWN ALLERGIES] Propensity to adverse reactions to drug (disorder) [facility] Repository (20 sources) Acetaminophen Drug Allergy 2 Hives, Nausea/Vom/Kacie rrhea [facility] (20 sources) Latex Allergy to substance 2 [facility] (20 sources) Propoxyphene Drug Allergy 2 [facility] (20 sources) traZODone Drug Allergy 2 Tingling [facility] (5 sources) Coconut extract Drug Allergy 5 PT UNABLE TO RESPOND-NEEDS F/U [facility] (5 sources) Fish Containing Products Allergy to substance 5 PT UNABLE TO RESPOND-NEEDS F/U [facility] (1 source) Acetaminophen Drug Allergy 5 [facility] (1 source) Coconut extract Drug Allergy 5 [facility] (1 source) Latex Drug allergy (disorder) 5 [facility] (1 source) Propoxyphene Drug Allergy 5 [facility] (1 source) traZODone Drug Allergy 5 [facility] (1 source) Fish Containing Products Drug allergy (disorder) 5 [facility] Repository Medications Current Medications Medication Drug Class(es) Dates Sig (Normalized) Sig (Original) acetaminophen 500 mg oral tablet (9 sources) Start: 08-25-2024 End: 11-18-2024 take 2 tablets by mouth every eight hours as needed for pain Acetaminophen 500 mg tablet Active 1000 mg PO .Q 8h as needed for fever or pain 30 30 0 November 18, 2024 10:04am December 17, 2024 12:00am atorvastatin 20 mg oral tablet (20 sources) HMG-CoA Reductase Inhibitor Start: 08-25-2024 End: 11-18-2024 take 1 tablet by mouth at bedtime Atorvastatin 20 mg tablet Active 20 mg PO AT BEDTIME 90 2 November 18, 2024 10:05am Start: 11-18-2022 End: 08-25-2024 take 1 tablet by mouth once daily Atorvastatin (Lipitor) 10 mg tablet Discontinued 10 mg PO DAILY 90 0 September 20, 2023 8:54am August 25, 2024 10:45am Hyperlipidemia Hyperlipidemia, unspecified Blood Pressure Monitor (Bloo d Pressure Kit) kit (20 sources) Start: 02-02-2021 Blood Pressure Monitor (Blood Pressure Kit) kit Active 0 .ROUTE .MEDSUPPLY February 02, 2021 9:15am Check blood pressure daily for hypertension I10 Start: 02-02-2021 End: 01-03-2022 Blood Pressure Monitor (Bloo d Pressure Kit) kit Discontinued 0 .ROUTE .MEDSUPPLY 1 0 February 02, 2021 12:00am January 03, 2022 8:08am Primary hypertension Essential (primary) hypertension Check blood pressure daily for hypertension I10 Start: 02-02-2021 End: 01-03-2022 Blood Pressure Monitor (Bloo d Pressure Kit) kit Discontinued 0 .ROUTE .MEDSUPPLY February 01, 2021 11:00pm January 03, 2022 7:08am Check blood pressure daily for hypertension I10 Start: 02-02-2021 End: 01-03-2022 Blood Pressure Monitor (Bloo d Pressure Kit) kit Discontinued 0 .ROUTE .MEDSUPPLY February 02, 2021 12:00am January 03, 2022 8:08am Check blood pressure daily for hypertension I10 Start: 02-02-2021 Blood Pressure Monitor (Blood Pressure Kit) kit Active 0 .ROUTE .MEDSUPPLY February 02, 2021 12:00am Check blood pressure daily for hypertension I10 carvedilol 3.125 mg oral tablet (5 sources) alpha-Adrenergic Latisha, beta-Adrenergic Latisha Start: 08-25-2024 End: 11-18-2024 Carvedilol 3.125 mg tablet Active 3.125 mg PO TWICE DAILY WITH MEALS 60 30 2 November 18, 2024 10:05am Hold for heart less than 50 or systolic blood pressure less than 100 mmHg. fluconazole 150 mg oral tablet (20 sources) Azole Antifungal Start: 01-04-2022 End: 01-04-2022 take 1 tablet by mouth once fluconazole (DIFLUCAN) 150 mg tablet Indications: Vaginal burning , Vagina itching , Acute vulvitis Take 1 tablet by mouth one time only for 1 dose. 1 tablet 0 01/04/2022 01/04/2022 Active Start: 05-04-2021 End: 07-30-2021 Fluconazole 150 mg tablet Di scontinued 150 mg PO Every 3 Days 2 0 May 04, 2021 1:00am July 30, 2021 8:56am may repeat second dose 72 hrs after first dose if symptoms persist Comment on above: Take 1 tablet by vu th one time only for 1 dose. lidocaine hydrochloride 40 mg/ml topical lotion (1 source) Antiarrhythmic, Amide Local Anesthetic Start: Lidocaine Hcl 4 % lotion Active 1 NMA TOPICAL 2 to 4 times per day as needed for pain 118 2 November 18, 2024 10:05am lisinopril 20 mg oral tablet (20 sources) Angiotensin Converting Enzyme Inhibitor Start: End: take 1 tablet by mouth once daily Lisinopril 20 mg tablet Active 20 mg PO DAILY 30 30 2 November 18, 2024 10:05am Start: 07-30-2021 End: 08-25-2024 take 1 tablet by mouth once daily Lisinopril 40 mg tablet Discontinued 40 mg PO DAILY 90 0 July 25, 2024 5:50pm August 25, 2024 10:54am Primary hypertension Essential (primary) hypertension Start: 12-15-2020 End: 04-28-2021 take 1 tablet by mouth once daily Lisinopril 40 mg tablet Discontinued 40 mg PO daily 90 2 December 15, 2020 3:32pm April 28, 2021 12:00pm Start: 12-02-2020 End: 12-15-2020 take 1 tablet by mouth once daily Lisinopril 20 mg tablet Discontinued 20 mg PO daily 60 2 December 02, 2020 2:36pm December 15, 2020 3:33pm Start: 10-20-2020 End: 12-02-2020 take 1 tablet by mouth once daily Lisinopril 10 mg tablet Discontinued 10 mg PO daily 30 October 20, 2020 12:00am December 02, 2020 2:37pm mupirocin 0.02 mg/mg topical ointment (1 source) RNA Synthetase Inhibitor Antibacterial Start: 11-25-2024 Mupirocin (Centany) 2 % ointment Active 1 NMA TOPICAL TWICE A DAY 22 November 25, 2024 12:00am potassium chloride 20 meq extended release oral tablet (20 sources) Start: 10-05-2021 End: 11-18-2024 take 1 tablet by mouth once daily Potassium Chloride 20 mEq tablet extended release Active 20 meq PO DAILY 30 November 18, 2024 10:05am Hypokalemia Hypokalemia SUPPLEMENT Start: 11-03-2020 End: 04-28-2021 take 1 capsule by mouth once daily Potassium Chloride 10 mEq capsule, extended release Discontinued 10 meq PO DAILY 90 November 03, 2020 12:00am April 28, 2021 12:00pm Comment on above: Take 1 tablet by vu th once daily. sulfamethoxazole 800 mg / trimethoprim 160 mg oral tablet (1 source) Dihydrofolate Reductase Inhibitor Antibacterial, Sulfonamide Antimicrobial Start: 11-26-19 Sulfamethoxazole -Trimethoprim (Bactrim Ds) 800-160 mg tablet Active 1 {tbl} PO TWICE A DAY 14 0 November 25, 2024 12:00am warfarin sodium 5 mg oral tablet (20 sources) Vitamin K Antagonist Start: 09-07-19 End: 11-19-19 take 1 tablet by mouth once daily Warfarin 5 mg tablet Active 5 mg PO daily 60 November 18, 2024 10:05am Take 5 mg daily for 6 days of the week and 7.5mg on one day of the week Start: 08-21-2024 End: 09-06-2024 take 1 tablet by mouth once daily Warfarin (May) 6 mg tablet Discontinued 6 mg PO DAILY August 21, 2024 12:00am September 06, 2024 9:08am ATRIL FIBRILLATION Start: 08-21-2024 [facility] ([facility] 6 mg tablet Active 6 mg PO DAILY August 21, 2024 12:00am On Hold: Hold it for 3 days till INR is 2.0 and then resume lower dose Start: 03-19-2024 End: 08-21-2024 take 1 tablet by mouth once daily Warfarin 4 mg tablet Discontinued 4 mg PO daily 60 July 25, 2024 5:51pm August 21, 2024 3:16pm take 4mg daily x 2 days of the week and 6mg (extra 1/2 tablet ) on 2 days of the week Start: 09-29-2023 End: 03-26-2024 Warfarin 3 mg tablet Discont inued 3 mg PO DAILY 90 0 November 03, 2023 4:53pm March 26, 2024 2:24pm On Hold: Duplicate Order 6mg 2 days a week 3mgs all others Start: 09-26-2023 End: 09-29-2023 take 1 tablet by mouth once daily Warfarin 3 mg tablet Discontinued 3 mg PO DAILY 180 September 26, 2023 1:59pm September 29, 2023 1:41pm Start: 09-20-2023 End: 09-26-2023 take 2 tablets by mouth once daily Warfarin 3 mg tablet Discontinued 6 mg PO DAILY 180 September 20, 2023 10:03am September 26, 2023 2:00pm Start: 07-28-2023 End: 09-20-2023 take 1 tablet by mouth once daily Warfarin 3 mg tablet Discontinued 3 mg PO DAILY 60 September 20, 2023 8:54am September 20, 2023 10:03am Start: 06-22-2023 End: 09-20-2023 take 3 tablets by mouth once daily Warfarin 1 mg tablet Discontinued 3 mg PO DAILY 30 July 28, 2023 9:51am September 20, 2023 10:03am History of pulmonary embolism Personal history of pulmonary embolism Start: 06-22-2023 End: 07-28-2023 take 3 mg by mouth once daily Warfarin Active 3 MG PO DAILY July 28, 2023 9:51am Start: 06-13-2023 End: 07-28-2023 take 1 tablet by mouth once daily Warfarin 2.5 mg tablet Discontinued 2.5 mg PO DAILY 30 June 13, 2023 1:00am July 28, 2023 9:52am History of pulmonary embolism Personal history of pulmonary embolism Completed/Discontinued Medications Medication Drug Class(es) Dates Sig (Normalized) Sig (Original) acetaminophen 325 mg / oxyCODONE hydrochloride 5 mg oral tablet (20 sources) Opioid Agonist Start: 02-17-2022 End: 02-24-2022 Oxycodone-Acetamino phen (Percocet) 5-325 mg tablet Discontinued 1 {tbl} PO Q8H as needed for pain 14 7 0 February 17, 2022 February 23, 2022 12:00am February 24, 2022 12:03am Acute low back pain Low back pain, unspecified [id number] 200 actuat albuterol 0.09 mg/actuat metered dose inhaler (20 sources) beta2-Adrenergic Agonist Start: 08-11-2020 End: 07-28-2023 Albuterol Sulfate 90 mcg/actuation HFA aerosol inhaler Discontinued 1 - 2 NMA INHALATION EVERY 4 HOURS NEEDED as needed for Sob &/Or Wheezing 1 January 07, 2022 2:43pm July 28, 2023 9:05am Start: 08-11-2020 End: 07-28-2023 take 1 puff(s) by inhalation every four hours as needed Albuterol Sulfate Discontinued 1 - 2 PUFF INHALATION EVERY 4 HOURS NEEDED January 07, 2022 2:43pm July 28, 2023 9:05am amLODIPine 10 mg oral tablet (20 sources) Dihydropyridine Calcium Channel Latisha Start: 11-18-2022 End: 08-25-2024 take 1 tablet by mouth once daily Amlodipine 10 mg tablet Discontinued 10 mg PO DAILY 90 0 July 25, 2024 5:50pm August 25, 2024 10:44am Hyperlipidemia Hyperlipidemia, unspecified Start: 02-17-2022 End: 07-20-2022 take 1 tablet by mouth once daily Amlodipine 10 mg tablet Discontinued 10 mg PO DAILY 90 2 February 17, 2022 1:20pm July 20, 2022 2:48pm Start: 02-08-2022 End: 02-17-2022 take 1 tablet by mouth once daily Amlodipine 5 mg tablet Discontinued 5 mg PO DAILY 60 2 February 08, 2022 12:00am February 17, 2022 1:20pm Start: 02-02-2021 End: 11-03-2021 take 1 tablet by mouth once daily Amlodipine 10 mg tablet Discontinued 10 mg PO DAILY 90 0 July 22, 2021 5:31pm November 03, 2021 1:11pm apixaban 5 mg oral tablet (20 sources) Factor Xa Inhibitor Start: 02-08-2022 End: 06-13-2023 take 1 tablet by mouth twice daily Apixaban 5 mg tablet Discontinued 5 mg PO TWICE A DAY 180 90 July 20, 2022 2:48pm June 13, 2023 4:08pm Start: 12-04-2021 take 1 tablet by vu twice daily ELIQUIS 5 mg tab(s) Take 5 mg by mouth twice daily. 0 12/04/2021 Active Start: 08-11-2020 End: 02-08-2022 take 2 tablets by mouth twice daily, then take 1 tablet by mouth twice daily Apixaban 5 mg tablet Discontinued 5 mg PO TWICE A DAY 60 September 27, 2021 12:09pm February 08, 2022 10:55am take 2 tablets (10mg) twice daily for 7 days, till 08/17/2020, then continue with 1 tablet (5mg) twice daily for next 6 months Start: 08-11-2020 End: 12-02-2020 take 2 tablets by mouth twice daily, then take 1 tablet by mouth twice daily Apixaban Discontinued 10 MG PO DIRECTED 60 August 11, 2020 12:00am December 02, 2020 4:31pm take 2 tablets (10mg) twice daily for 7 days, till 08/17/2020, then continue with 1 tablet (5mg) twice daily for next 6 months Comment on above: Take 5 mg by mouth t wice daily. baclofen 10 mg oral tablet (20 sources) gamma-Aminobutyric Acid-ergic Agonist Start: 3 End: 5 take 1 tablet by mouth twice daily as needed for muscle spasms Baclofen 10 mg tablet Discontinued 10 mg PO TWICE A DAY as needed for muscle spasm 60 1 September 21, 2023 1:14pm February 23, 2024 8:27am benzonatate 200 mg oral capsule (20 sources) Non-narcotic Antitussive Start: End: 4 take 1 capsule by mouth three times daily Benzonatate 200 mg capsule Discontinued 200 mg PO THREE TIMES A DAY July 28, 2023 1:00am September 20, 2023 8:18am Start: 05-26-2022 End: 09-28-2022 take 1 capsule by mouth three times daily as needed for cough Benzonatate 200 mg capsule Discontinued 200 mg PO THREE TIMES A DAY as needed for cough 60 0 May 26, 2022 1:00am September 28, 2022 1:09pm betamethasone 0.5 mg/ml / clotrimazole 10 mg/ml topical cream (1 source) Azole Antifungal, Corticosteroid Start: 01-04-2022 clotrimazole-betamethasone (LOTRISONE) cream Indications: Vaginal burning , Vagina itching , Acute vulvitis Apply 1 application to affected area twice daily. 15 g 2 01/04/2022 Active Comment on above: Apply 1 application to affected area twi ce daily. cephalexin 500 mg oral capsule (9 sources) Cephalosporin Antibacterial Start: 09-06-2024 End: 10-25-2024 take 1 capsule by mouth every eight hours Cephalexin 500 mg capsule Discontinued 500 mg PO Q8H September 06, 2024 12:00am October 25, 2024 8:14am Start: 07-31-2024 End: 08-25-2024 take 1 capsule by mouth every eight hours Cephalexin 500 mg capsule Discontinued 500 mg PO Q8H 30 0 July 31, 2024 12:00am August 25, 2024 10:45am cyclobenzaprine hydrochloride 5 mg oral tablet (20 sources) Muscle Relaxant Start: 03-07-2023 End: 03-09-2023 take 1 tablet by mouth three times daily as needed for muscle spasms Cyclobenzaprine 5 mg tablet Discontinued 5 mg PO THREE TIMES A DAY as needed for muscle spasm 20 0 March 07, 2023 12:00am March 09, 2023 10:53am Start: 02-17-2022 End: 03-23-2022 take 5-10 mg by mouth three times daily as needed for muscle spasms Cyclobenzaprine 10 mg tablet Discontinued 5 - 10 mg PO THREE TIMES A DAY as needed for muscle spasm 30 February 17, 2022 12:00am March 23, 2022 12:33pm diclofenac sodium 0.01 mg/mg topical gel (20 sources) Nonsteroidal Anti-inflammatory Drug Start: 11-03-2020 End: 02-02-2021 Diclofenac Sodium (Voltaren Arthritis Pain) 1 % gel Discontinued 4 g TOPICAL DAILY as needed for knee pain 100 2 November 03, 2020 12:00am February 02, 2021 8:56am apply to single knee, ankle, foot; for foot includes sole/toes/top of foot docusate sodium 50 mg / sennosides, correction 8.6 mg oral tablet (4 sources) Start: 08-25-2024 End: 10-25-2024 Sennosides-Docusat e Sodium (Stimulant Laxative Plus) 8.6-50 mg Tablet Discontinued 2 {tbl} PO TWICE A DAY 0 0 August 25, 2024 12:00am October 25, 2024 8:15am doxepin 6 mg oral tablet (3 sources) Tricyclic Antidepressant Start: 09-27-2024 End: 10-25-2024 take 1 tablet by mouth at bedtime as needed for sleep Doxepin 6 mg tablet Discontinued 6 mg PO AT BEDTIME as needed for sleep 30 September 27, 2024 12:00am October 25, 2024 8:14am DULoxetine 30 mg delayed release oral capsule (9 sources) Serotonin and Norepinephrine Reuptake Inhibitor Start: 07-28-2023 End: 09-20-2023 take 1 capsule by mouth once daily Duloxetine 30 mg capsule,delayed release(DR/EC) Discontinued 30 mg PO DAILY 30 July 28, 2023 1:00am September 20, 2023 8:46am empagliflozin 10 mg oral tablet (4 sources) Sodium-Glucose Cotransporter 2 Inhibitor Start: 08-25-2024 End: 09-06-2024 take 1 tablet by mouth once daily Empagliflozin (Jardiance) 10 mg Tablet Discontinued 10 mg PO DAILY 30 30 August 25, 2024 12:00am September 06, 2024 8:46am [id number] 0.3 ml EPINEPHrine 1 mg/ml auto-injector (20 sources) alpha-Adrenergic Agonist, beta-Adrenergic Agonist, Catecholamine Start: 12-02-2020 End: 02-23-2024 Epinephrine (Epipen 2-Abbie) 0.3 mg/0.3 mL auto-injector Discontinued 0.3 mg IM every 5 to 15 minutes as needed for anaphylaxis 2 January 03, 2022 8:29am February 23, 2024 8:02am do not exceed 3 doses per episode furosemide 40 mg oral tablet (20 sources) Loop Diuretic Start: 09-28-2022 End: 11-18-2024 Furosemide 40 mg tablet Discontinued 40 mg PO SUSA as needed for FLUID 30 February 08, 2024 8:34am July 24, 2024 3:47pm Start: 08-11-2020 End: 09-01-2023 take 1 tablet by mouth once daily Furosemide 40 mg tablet Discontinued 40 mg PO DAILY March 21, 2022 8:23am September 28, 2022 1:12pm guaiFENesin 400 mg oral tablet (19 sources) Start: 05-26-2022 End: 09-28-2022 take 1 tablet by mouth three times daily as needed for cough Guaifenesin 400 mg tablet Discontinued 400 mg PO THREE TIMES A DAY as needed for congestion, cough 20 06May 26, 2022 1:00am September 28, 2022 1:11pm hydrOXYzine hydrochloride 25 mg oral tablet (20 sources) Antihistamine Start: 12-02-2020 End: 02-02-2021 take 1 tablet by mouth at bedtime as needed Hydroxyzine Hcl 25 mg tablet Discontinued 25 mg PO AT BEDTIME as needed for insomnia 30 December 02, 2020 12:00am February 02, 2021 8:57am Lidocaine Hcl 4 % lotion (1 source) Start: 10-25-2024 End: 11-18-2024 Lidocaine Hcl 4 % lotion Discontinued 1 NMA TOPICAL 2 to 4 times per day as needed for pain 118 2 October 25, 2024 12:00am November 18, 2024 10:05am magnesium chloride 598 mg delayed release oral tablet (7 sources) Start: 08-25-2024 End: 10-25-2024 Magnesium Chloride (Mag 64) 64 mg tablet,delayed release (DR/EC) Discontinued 128 mg PO DAILY 60 30 3 September 06, 2024 9:12am October 25, 2024 8:15am meloxicam 15 mg oral tablet (20 sources) Nonsteroidal Anti-inflammatory Drug Start: 08-10-2020 End: 08-11-2020 take 1 tablet by mouth once daily Meloxicam 15 MG tablet Discontinued 15 mg PO DAILY August 10, 2020 12:00am August 11, 2020 9:56am mirtazapine 15 mg oral tablet (20 sources) Start: 01-03-2022 End: 09-28-2022 take 1 tablet by mouth at bedtime Mirtazapine 15 mg tablet Discontinued 15 mg PO AT BEDTIME February 08, 2022 10:54am September 28, 2022 1:11pm omeprazole 40 mg delayed release oral capsule (20 sources) Proton Pump Inhibitor Start: 09-06-2024 End: 10-25-2024 take 1 capsule by mouth once daily Omeprazole 40 mg capsule,delayed release(DR/EC) Discontinued 40 mg PO daily September 06, 2024 12:00am October 25, 2024 8:15am Start: 09-20-2023 End: 08-21-2024 take 1 capsule by mouth once daily 30 minutes before breakfast Omeprazole 40 mg capsule,delayed release(DR/EC) Discontinued 40 mg PO DAILY 90 0 September 20, 2023 12:00am August 21, 2024 12:41pm Take 30 minutes before breakfast Start: 03-21-2022 End: 06-13-2023 take 1 capsule by mouth once daily 30 minutes before breakfast for gastroesophageal reflux disease Omeprazole 40 mg capsule,delayed release(DR/EC) Discontinued 40 mg PO DAILY as needed for GERD September 28, 2022 1:11pm June 13, 2023 4:08pm Take 30 minutes before breakfast predniSONE 10 mg oral tablet (20 sources) Start: 03-07-2023 End: 07-28-2023 take 4 tablets by mouth once daily, then take 3 tablets by mouth once daily, then take 2 tablets by mouth once daily, then take 1 tablet by mouth once daily Prednisone 10 mg tablet Discontinued 10 mg PO As Directed 30 March 07, 2023 12:00am July 28, 2023 9:05am 4 tablets daily x3 days, then 3 tablets daily x3 days, then 2 tabs daily x3 days, then 1 tablet daily x3 days Start: 11-18-2022 End: 03-07-2023 Prednisone 10 mg tablet Disc ontinued 10 mg PO TWICE A DAY 15 November 18, 2022 12:00am March 07, 2023 12:16pm one twice a day for 5 days, then one daily for 5 days, then discontinue spironolactone 50 mg oral tablet (4 sources) Aldosterone Antagonist Start: 08-25-2024 End: 10-25-2024 take 5 tablets by mouth once daily Spironolactone 50 mg tablet Discontinued 50 mg PO DAILY 30 30 August 25, 2024 12:00am October 25, 2024 8:15am Hold for serum potassium more than 5.0 traZODone hydrochloride 50 mg oral tablet (20 sources) Serotonin Reuptake Inhibitor Start: 12-02-2020 End: 12-02-2020 take 1 tablet by mouth at bedtime as needed Trazodone 50 mg tablet Discontinued 50 mg PO AT BEDTIME as needed for insomnia 20 06December 02, 2020 12:00am December 02, 2020 2:42pm Problems Active Problems Problem Classification Problem Date Documented Date Episodic/Chronic Acute myocardial infarction (19 sources) Myocardial infarction; Translations: [Non-ST elevation (NSTEMI) myocardial infarction] 11-17-2022 Chronic Administrative/social admission (16 sources) Patient encounter status; Translations: [Persons encountering health services in other specified circumstances] 12-09-2022 Episodic Anxiety disorders (20 sources) Mixed anxiety and depressive disorder; Translations: [Anxiety disorder, unspecified] Chronic Aortic; peripheral; and visceral artery aneurysms (20 sources) Aneurysm; Translations: [Aneurysm of abdominal vessel] 11-17-2022 Chronic Comment on above: CTA- images reviewed , 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 largest in mid/distal descending thoracic aortaprior CTA chest (2020) reviewed, minimal enlargement of proximal descending thoracic aorta and arch Cardiac dysrhythmias (20 sources) Atrial flutter; Translations: [Unspecified atrial flutter] Onset: 08-30-2024 11-17-2022 Chronic Chronic ulcer of skin (20 sources) Ulcer of lower extremity; Translations: [Non-pressure chronic ulcer of unspecified part of right lower leg with unspecified severity] Onset: 07-31-2024 07-24-2024 Chronic Congestive heart failure; nonhypertensive (20 sources) Heart failure with normal ejection fraction; Translations: [Unspecified diastolic (congestive) heart failure] Onset: 07-24-2024 Chronic Congestive heart failure; nonhypertensive (2 sources) Congestive heart failure; nonhypertensive Coronary atherosclerosis and other heart disease (19 sources) Exercise-induced angina; Translations: [Other forms of angina pectoris] 11-17-2022 Chronic Deficiency and other anemia (10 sources) Microcytic anemia; Translations: [Iron deficiency anemia, unspecified] 08-21-2024 Episodic Diabetes mellitus with complications (12 sources) Hyperglycemia due to type 2 diabetes mellitus; Translations: [Type 2 diabetes mellitus with hyperglycemia] 08-21-2024 Chronic Disorders of lipid metabolism (20 sources) Hyperlipidemia; Translations: [Hyperlipidemia, unspecified] Onset: 02-23-2024 Chronic Esophageal disorders (20 sources) Gastroesophageal reflux disease; Translations: [Gastro-esophageal reflux disease without esophagitis] Chronic Essential hypertension (20 sources) Essential hypertension; Translations: [Essential (primary) hypertension] Onset: 09-27-2024 Chronic Fluid and electrolyte disorders (20 sources) Acute hypokalemia; Translations: [Hypokalemia] 11-17-2022 Episodic Immunizations and screening for infectious disease (20 sources) Needs influenza immunization; Translations: [Encounter for immunization] 04-27-2021 Episodic Inflammatory diseases of female pelvic organs (1 source) Acute vulvitis; Translations: [Acute vulvitis] Episodic Malaise and fatigue (16 sources) Asthenia; Translations: [Other malaise] 12-29-2022 Episodic Melanomas of skin (20 sources) Malignant melanoma; Translations: [Malignant melanoma of skin, unspecified] Chronic Menopausal disorders (20 sources) Disorder associated with menstruation AND/OR menopause; Translations: [Unspecified menopausal and perimenopausal disorder] Chronic Mycoses (2 sources) Tinea pedis; Translations: [Dermatophytosis of foot] 09-28-2022 Episodic Open wounds of extremities (20 sources) Disorder of lower extremity; Translations: [Unspecified open wound, left lower leg, initial encounter] 01-20-2021 Episodic Osteoarthritis (20 sources) Osteoarthritis of left knee joint; Translations: [Unilateral primary osteoarthritis, left knee] Chronic Other aftercare (20 sources) Long-term current use of 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; Translations: [senior care (current) use of 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s] 02-02-2021 Episodic Other aftercare (5 sources) 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; Translations: [Long-term (current) use of 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s] Onset: 10-20-2024 11-17-2022 Episodic Other aftercare (2 sources) 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 exterminator (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) use of non-steroidal anti-inflammatories (NSAID); Translations: [senior care (current) use of non-steroidal anti-inflammatories (NSAID)] Onset: 10-20-2024 Episodic Other and unspecified benign neoplasm (20 sources) Change in skin lesion; Translations: [Melanocytic nevi, unspecified] 12-02-2020 Episodic Other connective tissue disease (2 sources) Other muscle spasm; Translations: [Spasm of muscle] Episodic Other diseases of kidney and ureters (15 sources) Renal mass; Translations: [Other specified disorders of kidney and ureter] 11-21-2022 Chronic Other diseases of kidney and ureters (1 source) Other specified disorders of kidney and ureter; Translations: [Unspecified disorder of kidney and ureter] 12-29-2022 Chronic Other female genital disorders (1 source) Burning sensation of vagina; Translations: [Unspecified condition associated with female genital organs and menstrual cycle] Episodic Other female genital disorders (1 source) Pruritus of vagina; Translations: [Other specified noninflammatory disorders of vagina] Episodic Other lower respiratory disease (20 sources) Dyspnea; Translations: [Shortness of breath] 12-02-2020 Episodic Other lower respiratory disease (2 sources) Cough; Translations: [Cough] 05-26-2022 Episodic Other lower respiratory disease (16 sources) Dyspnea on exertion; Translations: [Other forms of dyspnea] 07-24-2024 Episodic Other lower respiratory disease (10 sources) Tachypnea; Translations: [Tachypnea, not elsewhere classified] 08-21-2024 Episodic Other non-traumatic joint disorders (20 sources) Pain in left knee; Translations: [Chronic pain of left knee] Onset: 10-25-2024 01-20-2021 Episodic Other non-traumatic joint disorders (1 source) Pain in right knee; Translations: [Pain in right knee] Onset: 10-25-2024 Episodic Other nutritional; endocrine; and metabolic disorders (20 sources) Obesity; Translations: [Obesity, unspecified] 04-27-2021 Chronic Pulmonary heart disease (20 sources) H/O: pulmonary embolus; Translations: [Personal history of pulmonary embolism] Onset: 08-10-2020 Episodic Residual codes; unclassified (20 sources) Insomnia; Translations: [Insomnia, unspecified] 12-02-2020 Episodic Residual codes; unclassified (20 sources) Tobacco use and exposure - finding; Translations: [Tobacco use] 12-02-2020 Episodic Residual codes; unclassified (12 sources) Tobacco use; Translations: [Tobacco use disorder] Episodic Residual codes; unclassified (9 sources) Insomnia, unspecified; Translations: [Insomnia, unspecified] 06-13-2023 Episodic Residual codes; unclassified (14 sources) Edema of lower extremity; Translations: [Localized edema] 07-24-2024 Episodic Residual codes; unclassified (10 sources) Edema, generalized; Translations: [Generalized edema] 08-21-2024 Episodic Residual codes; unclassified (1 source) Localized edema; Translations: [Localized edema] Onset: 09-19-2024 Episodic Spondylosis; intervertebral disc disorders; other back problems (20 sources) Acute low back pain; Translations: [Acute low back pain] Episodic Sprains and strains (20 sources) Strain of thoracic region; Translations: [Strain of muscle and tendon of unspecified wall of thorax, initial encounter] 03-07-2023 Episodic Substance-related disorders (20 sources) Nicotine dependence; Translations: [Nicotine dependence, unspecified, uncomplicated] 01-20-2021 Chronic Superficial injury; contusion (20 sources) Contusion of face; Translations: [Contusion of other part of head, initial encounter] 12-11-2021 Episodic Unclassified (6 sources) R60.0 - Localized edema,L97.919 - Non-pressure chronic ulcer of unspecified part of right lower leg with unspecified severity Unclassified (4 sources) R93.1 - Abnormal findings on diagnostic imaging of heart and coronary circulation,I48.0 - Paroxysmal atrial fibrillation,I50.20 - Unspecified systolic (congestive) heart failure,E11.65 - Type 2 diabetes mellitus with hyperglycemia,R60.1 - Generalized edema,I48.92 - Unspecified atrial flutter,S81.801D - Unspecified open wound, right lower leg, subsequent encounter,S81.802D - Unspecified open wound, left lower leg, subsequent encounter,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, without rupture,I50.32 - Chronic diastolic (congestive) heart failure,R06.09 - Other forms of dyspnea,Z86.711 - Personal history of pulmonary embolism,M17.12 - Unilateral primary osteoarthritis, left knee Unclassified (5 sources) Pain in both knees; Translations: [M25.561 - Pain in right knee,M25.562 - Pain in left knee] Unclassified (2 sources) Paroxysmal atrial fibrillation with rapid ventricular response Unclassified (2 sources) Generalized edema Unclassified (2 sources) Open wound of lower extremity Unclassified (2 sources) History of pulmonary embolism Unclassified (2 sources) Osteoarthritis of left knee Unclassified (1 source) Supraceliac aneurysm of the thoracoabdominal aorta, without rupture; Translations: [Supraceliac aneurysm of the thoracoabdominal aorta, without rupture] Onset: 08-30-2024 Past or Other Problems Problem Classification Problem Date Documented Da te Episodic/Chronic Cardiac dysrhythmias (9 sources) Bradycardia; Translations: [Bradycardia, unspecified] Onset: 08-30-2024 08-24-2024 Episodic Deficiency and other anemia (1 source) Iron deficiency anemia, unspecified; Translations: [Iron deficiency anemia, unspecified] Onset: 08-30-2024 Episodic Diabetes mellitus without complication (20 sources) High glucose level in blood; Translations: [Other abnormal glucose] Onset: 07-24-2024 01-03-2022 Episodic Nonspecific chest pain (20 sources) Chest pain; Translations: [Chest pain, unspecified] Onset: 09-01-2024 11-17-2022 Episodic Other connective tissue disease (2 sources) Calcaneal spur; Translations: [Calcaneal spur, unspecified foot] Onset: 10-03-2006 10-03-2006 Episodic Other lower respiratory disease (10 sources) Shortness of breath; Translations: [Shortness of breath] Onset: 07-24-2024 Episodic Other screening for suspected conditions (not mental disorders or infectious disease) (9 sources) Left ventricular systolic dysfunction; Translations: [Abnormal findings on diagnostic imaging of heart and coronary circulation] Onset: 08-30-2024 08-22-2024 Episodic Respiratory failure; insufficiency; arrest (adult) (20 sources) Acute hypoxemic respiratory failure; Translations: [Acute respiratory failure with hypoxia] Onset: 08-09-2020 01-20-2021 Episodic Results Test Name Value Interpretation Reference Range Facility Internal Medicine Office Vis [facility] 11-25-2024 Internal Medicine Office Visit [facility] [address] [facility] [place] [address] OFFICE VISIT Date of Service: 11/25/24 MR#: [id number] Acct: [id number] Name: CLARIBEL ALLISON Rep #: [id number] : 1955 Provider: SUSANA singh Age/Sex: 69/F Location: [facility] Status: Signed Intake Vital Signs 10/25/24 08:12 11/25/24 12:34 Height 5 ft 5 in 5 ft 5 in Weight: 199 lb 193 lb 5 oz BMI 33.1 32.1 BP 144/82 H 138/80 H Blood Pressure Location Rt brachial Lt brachial Position Sitting Sitting Respiration 18 22 H Pulse 102 H 92 Pulse Source Monitor Monitor Temp 98.0 F 99.6 F H Temp Source Temporal Temporal Pulse Oximetry (%) 93 99 Oxygen Delivery Method room air room air Intake Visit Reasons: BIT BY HORSE FLY - YELLOW PUSS Chief Complaint: bug bite Lending Manager Required: No Accompanied by: Self Is patient in pain?: No Allergies latex Allergy (Mild, Verified 11/25/24 12:29) rash trazodone Allergy (Mild, Verified 11/25/24 12:29) Tingling coconut Allergy (Unknown, Verified 11/25/24 12:29) PT UNABLE TO RESPOND-NEEDS F/U Fish Containing Products Allergy (Unknown, Verified 11/25/24 12:29) PT UNABLE TO RESPOND-NEEDS F/U propoxyphene (From Darvocet-N) Allergy (Verified 11/25/24 12:29) Hives acetaminophen (From Darvocet-N) Adverse Reaction (Intermediate, Verified 11/25/24 12:29) Nausea/Vom/Diarrhea Medications ???Medication ???Instructions ???Recorded ???Confirmed ???Type acetaminophen 500 mg tablet 1,000 mg (2 x 500 mg) PO .Q 8h PRN 11/18/24 11/25/24 Rx fever or pain 30 days #30 tabs atorvastatin 20 mg tablet 20 mg PO QHS #90 tabs 11/18/2412/13 Rx carvedilol 3.125 mg tablet 3.125 mg PO BIDCM 1 month #60 tabs 11/18/24 11/25/24 Rx furosemide 40 mg tablet 40 mg PO BIDLX 30 days #60 tabs 11/25/24 Rx lidocaine HCl 4 % lotion 1 applic topical BID-QID PRN pain 11/18/24 11/25/24 Rx #118 mL lisinopril 20 mg tablet 20 mg PO DAILY 30 days #30 tabs 11/25/24 Rx potassium chloride 20 mEq 20 meq PO DAILY SUPPLEMENT #30 tab s 11/18/24 11/25/24 Rx tablet,extended release warfarin 5 mg tablet 5 mg PO QDAY #60 tabs 11/18/2412/13 Rx mupirocin 2 % topical ointment 1 applic topical BID #22 grams 12/1311/25/24 Rx (Centany) sulfamethoxazole 800 1 tab PO BID #14 tabs 11/25/2412/13 Rx mg-trimethoprim 160 mg tablet (Bactrim DS) Have you fallen in the past year?: No Nurse's Note: right arm bug bite oozing a lot of yellow drainage having to re wrap every 2-4 hours d/t drainage PFSH Medical History Ulcer of left lower extremity with fat layer exposed Congestive heart failure Bradycardia Heart failure with reduced ejection fraction Cardiac LV ejection fraction of 20-34% Irregular heart beat Atrial fibrillation Former smoker Ulcer of right lower extremity Lower extremity edema Dyspnea on exertion Diastolic heart failure Acute lumbar myofascial strain Acute thoracic myofascial strain Back pain Debility, unspecified Return to work evaluation Right renal mass Angina of effort Acute hypokalemia Chest pain Non-ST elevation WA (NSTEMI) Atrial flutter Borderline type 2 diabetes mellitus GERD (gastroesophageal reflux disease) Acute low back pain Elevated random blood glucose level Anxiety and depression Menopausal disorder Melanoma Preoperative clearance Flu vaccine need Current use of chcf 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 Obesity Elevated troponin (08/09/20) Hyperlipidemia Nicotine dependence History of pulmonary embolus (PE) (08/10/20) Essential hypertension Wound of left lower extremity Insomnia Change in skin mole Heart failure with preserved ejection fraction Shortness of breath Osteoarthritis of left knee Chronic pain of left knee Tobacco use Arthritis Acute hypoxemic respiratory failure (08/09/20) Surgical History H/O tubal ligation History of cholecystectomy H/O elbow surgery Family History Other Anxiety Arthritis Depression Hypertension Thyroid disorder Social History housing: house Smoking Status: Former smoker alcohol intake: never substance use type: does not use what type of physical activity do you participate in: walking frequency: 5-6 times per week HPI HPI Chief Complaint: bug bite Details: CLARIBEL ALLISON, is a 69 F who presents to the office today for evaluation of a bug bite on her right arm. Patient states while she was doing yard work she was bit by a horse fly on her right arm last week. She has noticed continued redness and itching and oozing of yellow drainage from the site. Has be (more content not included)... Normal [facility] Internal Medicine Office Vis remigio 10-25-2024 Internal Medicine Office Visit [facility] [address] [place] [address] OFFICE VISIT Date of Service: 10/25/24 MR#: [id number] Acct: [id number] Name: CLARIBEL ALLISON Rep #: [id number] : 1955 Provider: ZACK Pitts Age/Sex: 69/F Location: [facility] Status: Signed Intake Vital Signs 09/27/24 08:57 10/25/24 08:12 Height 5 ft 5 in 5 ft 5 in Weight: 200 lb 199 lb BMI 33.3 33.1 BP 120/70 144/82 H Blood Pressure Location Lt brachial Rt brachial Position Sitting Sitting Respiration 20 H 18 Pulse 89 102 H Pulse Source Monitor Monitor Temp 97.6 F L 98.0 F Temp Source Temporal Temporal Pulse Oximetry (%) 99 93 Oxygen Delivery Method room air room air Intake Visit Reasons: PAIN IN LEFT KNEE Chief Complaint: PAIN IN LEFT KNEE Is patient in pain?: Yes (10 both knees but left is worse) Allergies latex Allergy (Mild, Verified 10/25/24 08:12) rash trazodone Allergy (Mild, Verified 10/25/24 08:12) Tingling coconut Allergy (Unknown, Verified 10/25/24 08:12) PT UNABLE TO RESPOND-NEEDS F/U Fish Containing Products Allergy (Unknown, Verified 10/25/24 08:12) PT UNABLE TO RESPOND-NEEDS F/U propoxyphene (From Darvocet-N) Allergy (Verified 10/25/24 08:12) Hives acetaminophen (From Darvocet-N) Adverse Reaction (Intermediate, Verified 10/25/24 08:12) Nausea/Vom/Diarrhea Medications ???Medication ???Instructions ???Recorded ???Confirmed ???Type potassium chloride 20 mEq 20 meq PO DAILY SUPPLEMENT #30 tab s 07/25/24 10/25/24 Rx tablet,extended release carvedilol 3.125 mg tablet 3.125 mg PO BIDCM 1 month #60 tabs 08/25/24 10/25/24 Rx furosemide 40 mg tablet 40 mg PO BIDLX 30 days #60 tabs 10/25/24 Rx lisinopril 20 mg tablet 20 mg PO DAILY 30 days #30 tabs 10/25/24 Rx atorvastatin 20 mg tablet 20 mg PO QHS #90 tabs 09/06/2411/13 Rx warfarin 5 mg tablet 5 mg PO QDAY #60 tabs 10/01/2411/13 Rx acetaminophen 500 mg tablet 1,000 mg PO .Q 8h PRN 10/25/24 Hi story lidocaine HCl 4 % lotion 1 applic topical BID-QID PRN pain 10/25/24 10/25/24 Rx #118 mL Have you fallen in the past year?: No Nurse's Note: reviewed pt's medication list with her. pt reports she stopped magnesium and omeprazole as she states she does not have reflux. had PCP review the revised medication list. pt was advised by PCP NOT to exceed 3000 mg of tylenol per 24 hr period. pt verbalized understanding to only use tylenol PRN [facility] Medical History Ulcer of left lower extremity with fat layer exposed Congestive heart failure Bradycardia Heart failure with reduced ejection fraction Cardiac LV ejection fraction of 20-34% Irregular heart beat Atrial fibrillation Former smoker Ulcer of right lower extremity Lower extremity edema Dyspnea on exertion Diastolic heart failure Acute lumbar myofascial strain Acute thoracic myofascial strain Back pain Debility, unspecified Return to work evaluation Right renal mass Angina of effort Acute hypokalemia Chest pain Non-ST elevation WA (NSTEMI) Atrial flutter Borderline type 2 diabetes mellitus GERD (gastroesophageal reflux disease) Acute low back pain Elevated random blood glucose level Anxiety and depression Menopausal disorder Melanoma Preoperative clearance Flu vaccine need 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 Obesity Elevated troponin (08/09/20) Hyperlipidemia Nicotine dependence History of pulmonary embolus (PE) (08/10/20) Essential hypertension Wound of left lower extremity Insomnia Change in skin mole Heart failure with preserved ejection fraction Shortness of breath Osteoarthritis of left knee Chronic pain of left knee Tobacco use Arthritis Acute hypoxemic respiratory failure (08/09/20) Surgical History H/O tubal ligation History of cholecystectomy H/O elbow surgery Family History Other Anxiety Arthritis Depression Hypertension Thyroid disorder Social History housing: house Smoking Status: Current every day smoker tobacco type: cigarettes alcohol intake: never substance use type: does not use what type of physical activity do you participate in: walking frequency: 5-6 times per week HPI HPI Chief Complaint: PAIN IN LEFT KNEE Details: CLARIBEL ALLISON, is a 69 F who presents to the office today for bilateral knee pains. She states that she has had pains for many years now. Pains are pretty constant although definitely has periods where this is worse. She states that she feels ok first thing AM but then shortly after when she becomes active then this worsens. Pains do make it hard (more content not included)... Normal [facility] normalized rat io (INR) calculationOrdered By: Abdulaziz Ackerman on 10-17-2024 INR Coag (Bld) [Relative time] 2.3 {INR} [facility] Prothrombin Time w/INRon INR Coag (PPP) [Relative time] 2.3 {INR} Normal [facility] Comment on above: Performed By: #### L 300.3900 #### [facility] [address] [place], [address] PT Coag (PPP) [Time] 25.6 s High 11.7-14.9 [facility] Comment on above: Performed By: #### L 300.3900 #### [facility] [address] [place], [address] Prothrombin timeOrdered By: Abdulaziz Ackerman on 10-17-2024 PT Coag (PPP) [Time] 25.6 s High 11.7-14.9 [facility] Absolute lymphocyte countOrd ered By: Abdulaziz Ackerman on 09-27-2024 Lymphocytes Auto (Unsp spec) [#/Vol] 1.76 10*3/uL 0.83-4.51 [facility] Absolute neutrophil countOrd ered By: Abdulaziz Ackerman on 09-27-2024 Neutrophils (Bld) [#/Vol] 5.6 10*3/uL 2.0-7.7 [facility] Anion gap in Serum or Plasma Ordered By: Abdulaziz Ackerman on 09-27-2024 Anion gap [Moles/Vol] 9 mmol/L 5-15 [facility] Automated lymphocyte count a s percentage of total leukocytesOrdered By: Earnestinearsenio Edithnoah on 09-27-2024 Lymphocytes/100 WBC Auto (Unsp spec) 21.1 % 19-41 [facility] BUN/creatinine ratioOrdered By: Earnestinearsenio Meka on 09-27-2024 Urea nitrogen/Creatinine [Mass ratio] 23.8 mg/mg High 10-20 [facility] Basophil percentageOrdered B y: Abdulaziz Sharmanoah on 09-27-2024 Basophils/100 WBC (Bld) 0.8 % 0-1 [facility] Bilirubin, totalOrdered By: mylenecamas valleyarsenio Solorzanodarrell on 09-27-2024 Bilirubin [Mass/Vol] 0.58 mg/dL 0.00-1.30 [facility] Blood polychromasia detectio n by light microscopyOrdered By: Renitamylenedinaarsenio Ackerman on 09-27-2024 Polychromasia LM Ql (Bld) 2+ [facility] CBC W/Diff, Automatedon HYPOCHROMASIA 1+ Normal [facility] Comment on above: Performed By: #### L 300.3900, L100.0100, L500.4050 #### [facility] [address] [place], [address] POLYCHROMASIA 2+ Normal [facility] Comment on above: Performed By: #### L 300.3900, L100.0100, L500.4050 #### [facility] [address] [place], [address] Anisocytosis Ql (Bld) 2+ Normal [facility] Comment on above: Performed By: #### L 300.3900, L100.0100, L500.4050 #### [facility] [address] [place], [address] PLT EST ADEQUATE Normal ADEQ [facility] Comment on above: Performed By: #### L 300.3900, L100.0100, L500.4050 #### [facility] [address] [place], [address] Carbon dioxide, total [Moles /volume] in Central venous bloodOrdered By: Abdulaziz Ackerman on 09-27-2024 CO2 [Moles/Vol] 24.2 mmol/L 21.0-32.0 [facility] Chloride assayOrdered By: Renita Ackerman on 09-27-2024 Chloride [Moles/Vol] 106 mmol/L 98-108 [facility] Comprehensive Metabolic Prof ilon 09-27-2024 Albumin [Mass/Vol] 3.7 g/dL Normal 3.4-4.8 [facility] Comment on above: Performed By: #### L 300.3900, L100.0100, L500.4050 #### [facility] [address] [place], [address] Albumin/Globulin [Mass ratio] 1.3 {ratio} Normal 0.9-2.4 [facility] Comment on above: Performed By: #### L 300.3900, L100.0100, L500.4050 #### [facility] [address] [place], [address] ALK PHOS 77 U/L Normal 35-104 [facility] Comment on above: Performed By: #### L 300.3900, L100.0100, L500.4050 #### [facility] [address] [place], [address] ALT [Catalytic activity/Vol] 16 U/L Normal <=34 [facility] Comment on above: Performed By: #### L 300.3900, L100.0100, L500.4050 #### [facility] [address] [place], [address] AST [Catalytic activity/Vol] 19 U/L Normal <=31 [facility] Comment on above: Performed By: #### L 300.3900, L100.0100, L500.4050 #### [facility] [address] [place] [place], [address] Bilirubin [Mass/Vol] 0.58 mg/dL Normal 0.00-1.30 [facility] Comment on above: Performed By: #### L 300.3900, L100.0100, L500.4050 #### [facility] [address] [place] [place], [address] BUN/CRE 23.8 RATIO High 10-20 [facility] Comment on above: Performed By: #### L 300.3900, L100.0100, L500.4050 #### [facility] [address] [place], [address] Calcium [Mass/Vol] 8.6 mg/dL Normal 7.6-11.0 [facility] Comment on above: Performed By: #### L 300.3900, L100.0100, L500.4050 #### [facility] [address] [place], [address] Chloride [Moles/Vol] 106 mmol/L Normal 98-108 [facility] Comment on above: Performed By: #### L 300.3900, L100.0100, L500.4050 #### [facility] [address] [place], [address] CO2 [Moles/Vol] 24.2 mmol/L Normal 21.0-32.0 [facility] Comment on above: Performed By: #### L 300.3900, L100.0100, L500.4050 #### [facility] [address] [place] [place], [address] Creatinine [Mass/Vol] 0.81 mg/dL Normal 0.70-1.20 [facility] Comment on above: Performed By: #### L 300.3900, L100.0100, L500.4050 #### [facility] [address] [place], [address] GAP 9 Normal 5-15 [facility] Comment on above: Performed By: #### L 300.3900, L100.0100, L500.4050 #### [facility] [address] [place], [address] GFR/1.73 sq M.predicted among non-blacks MDRD (S/P/Bld) [Vol rate/Area] 79 mL/min/{1.73_m2} Normal >60 [facility] Comment on above: Result Comment: mL/m in/1.73m2 CKD-EPI Creatinine Equation (2020) Performed By: #### L 300.3900, L100.0100, L500.4050 #### [facility] [address] [place], [address] Globulin (S) [Mass/Vol] 2.8 g/dL Normal 2.2-4.2 [facility] Comment on above: Performed By: #### L 300.3900, L100.0100, L500.4050 #### [facility] [address] [place] [place], [address] Glucose [Mass/Vol] 98 mg/dL Normal 70-99 [facility] Comment on above: Performed By: #### L 300.3900, L100.0100, L500.4050 #### [facility] [address] [place], [address] Potassium [Moles/Vol] 3.9 mmol/L Normal 3.3-5.1 [facility] Comment on above: Performed By: #### L 300.3900, L100.0100, L500.4050 #### [facility] [address] [place], [address] Sodium [Moles/Vol] 139 mmol/L Normal 133-145 [facility] Comment on above: Performed By: #### L 300.3900, L100.0100, L500.4050 #### [facility] [address] [place], [address] T PROT 6.5 g/dL Normal 5.9-8.4 [facility] Comment on above: Performed By: #### L 300.3900, L100.0100, L500.4050 #### [facility] [address] [place], [address] Urea nitrogen [Mass/Vol] 19 mg/dL Normal 4-19 [facility] Comment on above: Performed By: #### L 300.3900, L100.0100, L500.4050 #### [facility] [address] [place], [address] Eosinophil percentageOrdered By: Abdulaziz Ackerman on 09-27-2024 Eosinophils/100 WBC (Bld) 1.6 % 0-5 [facility] Erythrocyte distribution wid th ratioOrdered By: Abdulaziz Ackerman on 09-27-2024 Erythrocyte distribution width (RBC) [Ratio] 21.3 % High 11.6-14.6 [facility] Erythrocyte distribution wid th standard deviationOrdered By: Abdulaziz Ackerman on 09-27-2024 Erythrocyte distribution width (RBC) [Ratio] 53.1 fl High 35.1-43.9 [facility] Glomerular filtration rate ( GFR) estimation/1.73 sq m using serum, plasma, or whole bOrdered By: Abdulaziz Ackerman on 09-27-2024 GFR/1.73 sq M.predicted among non-blacks MDRD (S/P/Bld) [Vol rate/Area] 79 mL/min/{1.73_m2} >60 [facility] Comment on above: mL/min/1.73m2 CKD-EP I Creatinine Equation (2020) Hematocrit Auto (Bld) [Volum e fraction]Ordered By: Abdulaziz Acekrman on 09-27-2024 Hematocrit (Bld) [Volume fraction] 36.6 % Low 37-47 [facility] Hemoglobin measurementOrdere d By: Abdulaziz Ackerman on 09-27-2024 Hemoglobin (Bld) [Mass/Vol] 10.0 g/dL Low 12.0-15.0 [facility] Hypochromatic red blood cell detectionOrdered By: Abdulaziz Ackerman on 09-27-2024 Hypochromia Ql (Bld) 1+ [facility] Immature granulocytes/100 WB C Auto (Bld)Ordered By: Abdulaziz Ackerman on 09-27-2024 Immature granulocytes/100 WBC (Bld) 0.200 % 0.0-0.9 [facility] Comment on above: IG% - Immature Granu locytes (promyelocytes, myelocytes and metamyelocytes) > 1% indicates that a LEFT SHIFT is Present. Internal Medicine Office Vis iton 09-27-2024 Internal Medicine Office Visit [facility] [address] [place] [address] OFFICE VISIT Date of Service: 09/27/24 MR#: [id number] Acct: [id number] Name: CLARIBEL ALLISON Rep #: [id number] : 1955 Provider: Dr. Abdulaziz carlson MD Age/Sex: 69/F Location: [facility] Status: Signed Intake Vital Signs 07/24/24 14:18 09/06/24 08:39 09/27/24 08:57 Height 5 ft 5 in 5 ft 5 in 5 ft 5 in Weight: 200 lb BMI 33.3 BP 120/70 Blood Pressure Location Lt brachial Position Sitting Respiration 20 H Pulse 89 Pulse Source Monitor Temp 97.6 F L Temp Source Temporal Pulse Oximetry (%) 99 Oxygen Delivery Method room air Intake Visit Reasons: 2 M FU Chief Complaint: 2 m fu Lending Manager Required: No Accompanied by: Self Is patient in pain?: No Allergies latex Allergy (Mild, Verified 09/27/24 08:56) rash trazodone Allergy (Mild, Verified 09/27/24 08:56) Tingling coconut Allergy (Unknown, Verified 09/27/24 08:56) PT UNABLE TO RESPOND-NEEDS F/U Fish Containing Products Allergy (Unknown, Verified 09/27/24 08:56) PT UNABLE TO RESPOND-NEEDS F/U propoxyphene (From Darvocet-N) Allergy (Verified 09/27/24 08:56) Hives acetaminophen (From [facility]) Adverse Reaction (Intermediate, Verified 09/27/24 08:56) Nausea/Vom/Diarrhea Medications ???Medication ???Instructions ???Recorded ???Confirmed ???Type potassium chloride 20 mEq 20 meq PO DAILY SUPPLEMENT #30 tab s 07/25/24 09/27/24 Rx tablet,extended release acetaminophen 500 mg tablet 1,000 mg (2 x 500 mg) PO Q8 #0 tab s 08/25/24 09/27/24 Rx carvedilol 3.125 mg tablet 3.125 mg PO BIDCM 1 month #60 tabs 08/25/24 09/27/24 Rx furosemide 40 mg tablet 40 mg PO BIDLX 30 days #60 tabs 09/27/24 Rx lisinopril 20 mg tablet 20 mg PO DAILY 30 days #30 tabs 09/27/24 Rx sennosides 8.6 mg-docusate sodium 2 tab PO BID #0 tabs 08/25/2402/13 Rx 50 mg tablet (Stimulant Laxative Plus) spironolactone 50 mg tablet 50 mg PO DAILY 30 days #30 tabs 09/27/24 Rx atorvastatin 20 mg tablet 20 mg PO QHS #90 tabs 09/06/2402/13 Rx cephalexin 500 mg capsule 500 mg PO Q8H 09/06/24 09/27/24 Hi story magnesium chloride 64 mg 128 mg (2 x 64 mg) PO DAILY 1 08/2009/27/24 Rx (magnesium chloride) month #60 tabs tablet,delayed release (Mag 64) omeprazole 40 mg capsule,delayed 40 mg PO QDAY 09/06/24 09/27/24 Hi story release warfarin 5 mg tablet 5 mg PO QDAY #60 tabs 09/06/2402/13 Rx doxepin 6 mg tablet 6 mg PO QHS PRN sleep #30 tabs 02/1309/27/24 Rx Have you fallen in the past year?: No [facility] Medical History (Updated 09/27/24 @ 12:[address] Abdulaziz Ackerman MD) Ulcer of left lower extremity with fat layer exposed Congestive heart failure Bradycardia Heart failure with reduced ejection fraction Cardiac LV ejection fraction of 20-34% Irregular heart beat Atrial fibrillation Former smoker Ulcer of right lower extremity Lower extremity edema Dyspnea on exertion Diastolic heart failure Acute lumbar myofascial strain Acute thoracic myofascial strain Back pain Debility, unspecified Return to work evaluation Right renal mass Angina of effort Acute hypokalemia Chest pain Non-ST elevation WA (NSTEMI) Atrial flutter Borderline type 2 diabetes mellitus GERD (gastroesophageal reflux disease) Acute low back pain Elevated random blood glucose level Anxiety and depression Menopausal disorder Melanoma Preoperative clearance Flu vaccine need 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 Obesity Elevated troponin (08/09/20) Hyperlipidemia Nicotine dependence History of pulmonary embolus (PE) (08/10/20) Essential hypertension Wound of left lower extremity Insomnia Change in skin mole Heart failure with preserved ejection fraction Shortness of breath Osteoarthritis of left knee Chronic pain of left knee Tobacco use Arthritis Acute hypoxemic respiratory failure (08/09/20) Surgical History H/O tubal ligation History of cholecystectomy H/O elbow surgery Family History Other Anxiety Arthritis Depression Hypertension Thyroid disorder Social History housing: house Smoking Status: Former smoker alcohol intake: never substance use type: does not use what type of physical activity do you participate in: walking frequency: 5-6 times per week HPI HPI Chief Complaint: 2 m fu Details: CLARIBEL ALLISON, is a 69 F who presents to the office today for follow-up. Also has some concerns. She reports difficulty falling and staying asleep. Has been progressively worsening. Now has her children and grandchildren staying with her a (more content not included)... Normal [facility] - Chemistry and C hemistry - challengeOrdered By: Abdulaziz Ackerman on 09-27-2024 AST [Catalytic activity/Vol] 19 U/L <32 [facility] - Hematology and Cell countsOrdered By: Abdulaziz Ackerman on 09-27-2024 Anisocytosis Ql (Bld) 2+ [facility] MCV (mean corpuscular volume ) determinationOrdered By: Abdulaziz Ackerman on 09-27-2024 MCV (RBC) [Entitic vol] 72.8 fL Low 81-99 [facility] Mean corpuscular hemoglobin (MCH) determinationOrdered By: Abdulaziz Ackerman on 09-27-2024 MCH (RBC) [Entitic mass] 19.9 pg Low 27.0-32.0 [facility] Mean corpuscular hemoglobin concentration (MCHC) determinationOrdered By: Abdulaziz Ackerman on 09-27-2024 MCHC (RBC) [Mass/Vol] 27.3 g/dL Low 32-36 [facility] Mean platelet volume determi nationOrdered By: Abdulaziz Ackerman on 09-27-2024 Platelet mean volume (Bld) [Entitic vol] 11.2 fL 6.2-12.0 [facility] Monocyte percentageOrdered B y: Abdulaziz Ackerman on 09-27-2024 Monocytes/100 WBC (Bld) 9.0 % 0-10 [facility] Neutrophil percentageOrdered By: Abdulaziz Ackerman on 09-27-2024 Neutrophils/100 WBC (Bld) 67.3 % 47-70 [facility] Nucleated red blood cell per centageOrdered By: Abdulaziz Ackerman on 09-27-2024 Nucleated RBC/100 WBC (Bld) [Ratio] 0 % 0-5 [facility] Platelet countOrdered By: Renita Ackerman on 09-27-2024 Platelets (Bld) [#/Vol] 221 10*3/uL 150-450 [facility] Platelet estimateOrdered By: Abdulaziz Ackerman on 09-27-2024 Platelets LM Ql (Bld) ADEQUATE ADEQ [facility] Potassium measurement (mass/ volume)Ordered By: Abdulaziz Ackerman on 09-27-2024 Potassium (Unsp spec) [Mass/Vol] 3.9 mmol/L 3.3-5.1 [facility] Prothrombin Time w/INRon INR Coag (PPP) [Relative time] 1.9 {INR} Normal [facility] Comment on above: Performed By: #### L 300.3900, L100.0100, L500.4050 #### [facility] [address] [place], [address] PT Coag (PPP) [Time] 21.7 s High 11.7-14.9 [facility] Comment on above: Performed By: #### L 300.3900, L100.0100, L500.4050 #### [facility] [address] [place], [address] RBC Auto (Bld) [#/Vol]Ordere d By: Abdulaziz Ackerman on 09-27-2024 RBC (Bld) [#/Vol] 5.03 10*6/uL 4.2-5.4 [facility] Serum creatinine measurement (mass/volume)Ordered By: Abdulaziz Ackerman on 09-27-2024 Creatinine [Mass/Vol] 0.81 mg/dL 0.70-1.20 [facility] Serum globulin measurementOr dered By: Abdulaziz Ackerman on 09-27-2024 Globulin (S) [Mass/Vol] 2.8 g/dL 2.2-4.2 [facility] Serum glucose measurement (m ass/volume)Ordered By: Abdulaziz Ackerman on 09-27-2024 Glucose [Mass/Vol] 98 mg/dL 70-99 [facility] Serum or plasma alanine kebede otransferase (ALT) measurementOrdered By: Abdulaziz Ackerman on 09-27-2024 ALT [Catalytic activity/Vol] 16 U/L <35 [facility] Serum or plasma albumin lakshmi urement (mass/volume)Ordered By: Abdulaziz Ackerman on 09-27-2024 Albumin [Mass/Vol] 3.7 g/dL 3.4-4.8 [facility] Serum or plasma albumin/glob ulin mass ratioOrdered By: Abdulaziz Ackerman on 09-27-2024 Albumin/Globulin [Mass ratio] 1.3 {ratio} 0.9-2.4 [facility] Serum or plasma alkaline david sphatase measurementOrdered By: Abdulaziz Ackerman on 09-27-2024 ALP [Catalytic activity/Vol] 77 U/L 35-104 [facility] Serum or plasma calcium lakshmi urement (mass/volume)Ordered By: Abdulaziz Rashadbabatundenoah on 09-27-2024 Calcium [Mass/Vol] 8.6 mg/dL 7.6-11.0 [facility] Serum or plasma urea nitroge n measurement (mass/volume)Ordered By: Earnestinearsenio Solorzanobabatundenoah on 09-27-2024 Urea nitrogen [Mass/Vol] 19 mg/dL 4-19 [facility] Sodium levelOrdered By: Glo dugan Rashaddarrell on 09-27-2024 Sodium [Moles/Vol] 139 mmol/L 133-145 [facility] Total proteinOrdered By: Guicho coleman Rashadbabatundenoah on 09-27-2024 Protein [Mass/Vol] 6.5 g/dL 5.9-8.4 [facility] White blood cell (WBC) count Ordered By: Earnestinearsenio Solorzanobabatundenoah on 09-27-2024 WBC (Bld) [#/Vol] 8.3 10*3/uL 4.4-11.0 [facility] Internal Medicine Office Vis iton 09-06-2024 Internal Medicine Office Visit [facility] [address] [place] [id number] OFFICE VISIT Date of Service: 09/06/24 MR#: [id number] Acct: [id number] Name: CLARIBEL ALLISON Rep #: [id number] : 1955 Provider: Dr. Abdulaziz carlson MD Age/Sex: 69/F Location: [facility] Status: Signed Intake Vital Signs 08/22/24 09:16 09/06/24 08:39 Height 5 ft 5 in 5 ft 5 in Weight: 207 lb 6 oz BMI 34.4 BP 130/78 H Blood Pressure Location Rt brachial Position Sitting Respiration 20 H Pulse 97 Pulse Source Monitor Temp 96.7 F L Temp Source Temporal Pulse Oximetry (%) 97 Oxygen Delivery Method room air Intake Visit Reasons: [facility] FU Chief Complaint: Follow-up recent hospital admission Lending Manager Required: No Accompanied by: Self Is patient in pain?: No Allergies latex Allergy (Mild, Verified 09/06/24 08:36) rash trazodone Allergy (Mild, Verified 09/06/24 08:36) Tingling coconut Allergy (Unknown, Verified 09/06/24 08:36) PT UNABLE TO RESPOND-NEEDS F/U Fish Containing Products Allergy (Unknown, Verified 09/06/24 08:36) PT UNABLE TO RESPOND-NEEDS F/U propoxyphene (From Darvocet-N) Allergy (Verified 09/06/24 08:36) Hives acetaminophen (From Darvocet-N) Adverse Reaction (Intermediate, Verified 09/06/24 08:36) Nausea/Vom/Diarrhea Medications ???Medication ???Instructions ???Recorded ???Confirmed ???Type potassium chloride 20 mEq 20 meq PO DAILY SUPPLEMENT #30 tab s 07/25/24 09/06/24 Rx tablet,extended release acetaminophen 500 mg tablet 1,000 mg (2 x 500 mg) PO Q8 #0 tab s 08/25/24 09/06/24 Rx carvedilol 3.125 mg tablet 3.125 mg PO BIDCM 1 month #60 tabs 08/25/24 09/06/24 Rx furosemide 40 mg tablet 40 mg PO BIDLX 30 days #60 tabs 09/06/24 Rx lisinopril 20 mg tablet 20 mg PO DAILY 30 days #30 tabs 09/06/24 Rx sennosides 8.6 mg-docusate sodium 2 tab PO BID #0 tabs 08/25/24 Rx 50 mg tablet (Stimulant Laxative Plus) spironolactone 50 mg tablet 50 mg PO DAILY 30 days #30 tabs 09/06/24 Rx atorvastatin 20 mg tablet 20 mg PO QHS #90 tabs 09/06/24 Rx cephalexin 500 mg capsule 500 mg PO Q8H 09/06/24 09/06/24 Hi story magnesium chloride 64 mg 128 mg (2 x 64 mg) PO DAILY 1 08/2009/06/24 Rx (magnesium chloride) month #60 tabs tablet,delayed release (Mag 64) omeprazole 40 mg capsule,delayed 40 mg PO QDAY 09/06/24 09/06/24 Hi story release warfarin 5 mg tablet 5 mg PO QDAY #60 tabs 09/06/24 Rx Have you fallen in the past year?: No [facility] Medical History (Updated 09/06/24 @ 12:[address] Abdulaziz Ackerman MD) Bradycardia Heart failure with reduced ejection fraction Cardiac LV ejection fraction of 20-34% Irregular heart beat Atrial fibrillation Former smoker Ulcer of right lower extremity Lower extremity edema Dyspnea on exertion Diastolic heart failure Acute lumbar myofascial strain Acute thoracic myofascial strain Back pain Debility, unspecified Return to work evaluation Right renal mass Angina of effort Acute hypokalemia Chest pain Non-ST elevation WA (NSTEMI) Atrial flutter Borderline type 2 diabetes mellitus GERD (gastroesophageal reflux disease) Acute low back pain Elevated random blood glucose level Anxiety and depression Menopausal disorder Melanoma Preoperative clearance Flu vaccine need 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 Obesity Elevated troponin (08/09/20) Hyperlipidemia Nicotine dependence History of pulmonary embolus (PE) (08/10/20) Essential hypertension Wound of left lower extremity Insomnia Change in skin mole Heart failure with preserved ejection fraction Shortness of breath Osteoarthritis of left knee Chronic pain of left knee Tobacco use Arthritis Acute hypoxemic respiratory failure (08/09/20) Surgical History H/O tubal ligation History of cholecystectomy H/O elbow surgery Family History Other Anxiety Arthritis Depression Hypertension Thyroid disorder Social History housing: house Smoking Status: Former smoker alcohol intake: never substance use type: does not use what type of physical activity do you participate in: walking frequency: 5-6 times per week HPI HPI Chief Complaint: Follow-up recent hospital admission Details: CLARIBEL ALLISON, is a 69 F who presents to the office today for follow-up status post recent hospital admission. Presented to the hospital due to worsening shortness of breath. Managed for acute CHF exacerbation. Seen in consult by cardiology and due to concern for arrhythmia in the setting of atrial fibrillation, Holter/event monitor was recommended at disc (more content not included)... Normal [facility] Anion gap in Serum or Plasma Ordered By: Abdulaziz Ackerman on 09-02-2024 Anion gap [Moles/Vol] 12 mmol/L - [facility] BUN/creatinine ratioOrdered By: Abdulaziz Solorzanodarrell on 09-02-2024 Urea nitrogen/Creatinine [Mass ratio] 16.0 mg/mg - [facility] Basic Metabolic Profile (BMP )on 09-02-2024 BUN/CRE 16.0 RATIO Normal - [facility] Comment on above: Performed By: #### L 300.3900 #### [facility] [address] [place], [address] Calcium [Mass/Vol] 8.4 mg/dL Normal 7.6-11.0 [facility] Comment on above: Performed By: #### L 300.3900 #### [facility] [address] [place], [address] Chloride [Moles/Vol] 105 mmol/L Normal 98-108 [facility] Comment on above: Performed By: #### L 300.3900 #### [facility] [address] [place], [address] CO2 [Moles/Vol] 23.6 mmol/L Normal 21.0-32.0 [facility] Comment on above: Performed By: #### L 300.3900 #### [facility] [address] [place], [address] Creatinine [Mass/Vol] 0.92 mg/dL Normal 0.70-1.20 [facility] Comment on above: Performed By: #### L 300.3900 #### [facility] [address] [place], [address] GAP 12 Normal 10-03 [facility] Comment on above: Performed By: #### L 300.3900 #### [facility] [address] [place], [address] GFR/1.73 sq M.predicted among non-blacks MDRD (S/P/Bld) [Vol rate/Area] 69 mL/min/{1.73_m2} Normal >60 [facility] Comment on above: Result Comment: mL/m in/1.73m2 CKD-EPI Creatinine Equation (2020) Performed By: #### L 300.3900 #### [facility] [address] [place], [address] Glucose [Mass/Vol] 148 mg/dL High 70-99 [facility] Comment on above: Performed By: #### L 300.3900 #### [facility] [address] [place], [address] Potassium [Moles/Vol] 3.4 mmol/L Normal 3.3-5.1 [facility] Comment on above: Performed By: #### L 300.3900 #### [facility] [address] [place], [address] Sodium [Moles/Vol] 141 mmol/L Normal 133-145 [facility] Comment on above: Performed By: #### L 300.3900 #### [facility] [address] [place], [address] Urea nitrogen [Mass/Vol] 15 mg/dL Normal 4-19 [facility] Comment on above: Performed By: #### L 300.3900 #### [facility] [address] [place], [address] Carbon dioxide, total [Moles /volume] in Central venous bloodOrdered By: Abdulaziz Ackerman on 09-02-2024 CO2 [Moles/Vol] 23.6 mmol/L 21.0-32.0 [facility] Chloride assayOrdered By: Renita Ackerman on 09-02-2024 Chloride [Moles/Vol] 105 mmol/L 98-108 [facility] Glomerular filtration rate ( GFR) estimation/1.73 sq m using serum, plasma, or whole bOrdered By: Abdulaziz Ackerman on 04-14-2025 GFR/1.73 sq M.predicted among non-blacks MDRD (S/P/Bld) [Vol rate/Area] 69 mL/min/{1.73_m2} >60 [facility] Comment on above: mL/min/1.73m2 CKD-EP I Creatinine Equation (2020) International normalized rat io (INR) calculationOrdered By: Abdulaziz Ackerman on 09-02-2024 INR Coag (Bld) [Relative time] 1.5 {INR} [facility] Potassium measurement (mass/ volume)Ordered By: Abdulaziz Ackerman on 09-02-2024 Potassium (Unsp spec) [Mass/Vol] 3.4 mmol/L 3.3-5.1 [facility] Prothrombin Time w/INRon INR Coag (PPP) [Relative time] 1.5 {INR} [facility] [facility] Comment on above: Performed By: #### L 300.3900 #### [facility] [address] [place], [place], [address] PT Coag (PPP) [Time] 18.1 s High 11.7-14.9 [facility] Comment on above: Performed By: #### L 300.3900 #### [facility] [address] [place], [address] Prothrombin timeOrdered By: Abdulaziz Ackerman on 09-02-2024 PT Coag (PPP) [Time] 18.1 s High 11.7-14.9 [facility] Serum creatinine measurement (mass/volume)Ordered By: Abdulaziz Ackerman on 09-02-2024 Creatinine [Mass/Vol] 0.92 mg/dL 0.70-1.20 [facility] Serum glucose measurement (m ass/volume)Ordered By: Abdulaziz Ackerman on 09-02-2024 Glucose [Mass/Vol] 148 mg/dL High 70-99 [facility] Serum or plasma calcium lakshmi urement (mass/volume)Ordered By: Abdulaziz Ackerman on 09-02-2024 Calcium [Mass/Vol] 8.4 mg/dL 7.6-11.0 [facility] Serum or plasma urea nitroge n measurement (mass/volume)Ordered By: Abdulaziz Ackerman on 09-02-2024 Urea nitrogen [Mass/Vol] 15 mg/dL - [facility] Sodium levelOrdered By: Glo Ackerman on 09-02-2024 Sodium [Moles/Vol] 141 mmol/L 133-145 [facility] Basic Metabolic Profile (BMP )on 08-26-2024 BUN Normal - [facility] Comment on above: Result Comment: Canc elled via OM: Order cancelled - Patient discharged Performed By: #### L 100.0100, L500.2500 #### [facility] [address] [place], [address] BUN/CRE Normal - [facility] Comment on above: Result Comment: Canc elled via OM: Order cancelled - Patient discharged Performed By: #### L 100.0100, L500.2500 #### [facility] [address] [place], [address] Calcium Normal 7.6-11.0 [facility] Comment on above: Result Comment: Canc elled via OM: Order cancelled - Patient discharged Performed By: #### L 100.0100, L500.2500 #### [facility] [address] [place], [address] CL Normal 98-108 [facility] Comment on above: Result Comment: Canc elled via OM: Order cancelled - Patient discharged Performed By: #### L 100.0100, L500.2500 #### [facility] [address] [place], [address] CO2 Normal 21.0-32.0 [facility] Comment on above: Result Comment: Canc elled via OM: Order cancelled - Patient discharged Performed By: #### L 100.0100, L500.2500 #### [facility] [address] [place], [address] CREAT,SERUM Normal 0.70-1.20 [facility] Comment on above: Result Comment: Canc elled via OM: Order cancelled - Patient discharged Performed By: #### L 100.0100, L500.2500 #### [facility] [address] [place] [place], [address] eGFR Normal >60 [facility] Comment on above: Result Comment: Canc elled via OM: Order cancelled - Patient discharged Performed By: #### L 100.0100, L500.2500 #### [facility] [address] [place], [address] GAP Normal 5-15 [facility] Comment on above: Result Comment: Canc elled via OM: Order cancelled - Patient discharged Performed By: #### L 100.0100, L500.2500 #### [facility] [address] [place] [place], [address] GLU Normal 70-99 [facility] Comment on above: Result Comment: Canc elled via OM: Order cancelled - Patient discharged Performed By: #### L 100.0100, L500.2500 #### [facility] [address] [place], [address] Potassium Normal 3.3-5.1 [facility] Comment on above: Result Comment: Canc elled via OM: Order cancelled - Patient discharged Performed By: #### L 100.0100, L500.2500 #### [facility] [address] [place], [address] Basic Metabolic Profile (BMP) Normal 133-145 [facility] Comment on above: Result Comment: Canc elled via OM: Order cancelled - Patient discharged Performed By: #### L 100.0100, L500.2500 #### [facility] [address] [place], [address] CBC W/Diff, Automatedon 04-0 Absolute Neut Normal 2.0-7.7 [facility] Comment on above: Result Comment: Canc elled via OM: Order cancelled - Patient discharged Performed By: #### L 100.0100, L500.2500 #### [facility] [address] [place] [place] [place], [address] HCT Normal 37-47 [facility] Comment on above: Result Comment: Canc elled via OM: Order cancelled - Patient discharged Performed By: #### L 100.0100, L500.2500 #### [facility] [address] [place], [address] HGB Normal 12.0-15.0 [facility] Comment on above: Result Comment: Canc elled via OM: Order cancelled - Patient discharged Performed By: #### L 100.0100, L500.2500 #### [facility] [address] [place], [address] MCH Normal 27.0-32.0 [facility] Comment on above: Result Comment: Canc elled via OM: Order cancelled - Patient discharged Performed By: #### L 100.0100, L500.2500 #### [facility] [address] [place], [address] MCHC Normal 32-36 [facility] Comment on above: Result Comment: Canc elled via OM: Order cancelled - Patient discharged Performed By: #### L 100.0100, L500.2500 #### [facility] [address] [place], [address] MCV Normal 81-99 [facility] Comment on above: Result Comment: Canc elled via OM: Order cancelled - Patient discharged Performed By: #### L 100.0100, L500.2500 #### [facility] [address] [place], [address] NEUT% Normal 47-70 [facility] Comment on above: Result Comment: Canc elled via OM: Order cancelled - Patient discharged Performed By: #### L 100.0100, L500.2500 #### [facility] [address] [place], [address] PLT Normal 150-450 [facility] Comment on above: Result Comment: Canc elled via OM: Order cancelled - Patient discharged Performed By: #### L 100.0100, L500.2500 #### [facility] [address] [place], [address] RBC Normal 4.2-5.4 [facility] Comment on above: Result Comment: Canc elled via OM: Order cancelled - Patient discharged Performed By: #### L 100.0100, L500.2500 #### [facility] [address] [place], [address] RDW CV Normal 11.6-14.6 [facility] Comment on above: Result Comment: Canc elled via OM: Order cancelled - Patient discharged Performed By: #### L 100.0100, L500.2500 #### [facility] [address] [place], [address] RDW SD Normal 35.1-43.9 [facility] Comment on above: Result Comment: Canc elled via OM: Order cancelled - Patient discharged Performed By: #### L 100.0100, L500.2500 #### [facility] [address] [place], [address] WBC Normal 4.4-11.0 [facility] Comment on above: Result Comment: Canc elled via OM: Order cancelled - Patient discharged Performed By: #### L 100.0100, L500.2500 #### [facility] [address] [place], [address] Prothrombin Time w/INRon INR Normal [facility] Comment on above: Result Comment: Canc elled via OM: Order cancelled - Patient discharged Performed By: #### L 300.3900, L100.0100, L500.4050 #### [facility] [address] [place], [address] PROTIME Normal 11.7-14.9 [facility] Comment on above: Result Comment: Canc elled via OM: Order cancelled - Patient discharged Performed By: #### L 300.3900, L100.0100, L500.4050 #### [facility] [address] [place], [address] Absolute lymphocyte countOrd ered By: Iglesia Benson on 08-25-2024 Lymphocytes Auto (Unsp spec) [#/Vol] 1.53 10*3/uL 0.83-4.51 [facility] Absolute neutrophil countOrd ered By: Iglesia Benson on 08-25-2024 Neutrophils (Bld) [#/Vol] 4.4 10*3/uL 2.0-7.7 [facility] Anion gap in Serum or Plasma Ordered By: Iglesia Benson on 08-25-2024 Anion gap [Moles/Vol] 12 mmol/L 5-15 [facility] Automated lymphocyte count a s percentage of total leukocytesOrdered By: Iglesia Benson on 08-25-2024 Lymphocytes/100 WBC Auto (Unsp spec) 22.8 % 19-41 [facility] BUN/creatinine ratioOrdered By: Iglesia Benson on 08-25-2024 Urea nitrogen/Creatinine [Mass ratio] 21.7 mg/mg High 10-20 [facility] Basic Metabolic Profile (BMP )on 08-25-2024 BUN/CRE 21.7 RATIO High - [facility] Comment on above: Performed By: #### L 300.3900, L100.0100, L500.4050 #### [facility] [address] [place], [address] Calcium [Mass/Vol] 8.5 mg/dL Normal 7.6-11.0 [facility] Comment on above: Performed By: #### L 300.3900, L100.0100, L500.4050 #### [facility] [address] [place], [address] Chloride [Moles/Vol] 101 mmol/L Normal 98-108 [facility] Comment on above: Performed By: #### L 300.3900, L100.0100, L500.4050 #### [facility] [address] [place], [address] CO2 [Moles/Vol] 26.5 mmol/L Normal 21.0-32.0 [facility] Comment on above: Performed By: #### L 300.3900, L100.0100, L500.4050 #### [facility] [address] [place], [address] Creatinine [Mass/Vol] 1.18 mg/dL Normal 0.70-1.20 [facility] Comment on above: Performed By: #### L 300.3900, L100.0100, L500.4050 #### [facility] [address] [place], [address] ECRCL 52.76 ml/min Normal 50-250 [facility] Comment on above: Performed By: #### L 300.3900, L100.0100, L500.4050 #### [facility] [address] [place], [address] GAP 12 Normal 5-15 [facility] Comment on above: Performed By: #### L 300.3900, L100.0100, L500.4050 #### [facility] [address] [place], [address] GFR/1.73 sq M.predicted among non-blacks MDRD (S/P/Bld) [Vol rate/Area] 51 mL/min/{1.73_m2} Low >60 [facility] Comment on above: Result Comment: mL/m in/1.73m2 CKD-EPI Creatinine Equation (2020) Performed By: #### L 300.3900, L100.0100, L500.4050 #### [facility] [address] [place], [address] Glucose [Mass/Vol] 114 mg/dL High 70-99 [facility] Comment on above: Performed By: #### L 300.3900, L100.0100, L500.4050 #### [facility] [address] [place], [address] Potassium [Moles/Vol] 3.4 mmol/L Normal 3.3-5.1 [facility] Comment on above: Performed By: #### L 300.3900, L100.0100, L500.4050 #### [facility] [address] [place], [address] Sodium [Moles/Vol] 139 mmol/L Normal 133-145 [facility] Comment on above: Performed By: #### L 300.3900, L100.0100, L500.4050 #### [facility] [address] [place], [address] Urea nitrogen [Mass/Vol] 26 mg/dL High 4-19 [facility] Comment on above: Performed By: #### L 300.3900, L100.0100, L500.4050 #### [facility] [address] [place], [address] Basophil percentageOrdered B y: Iglesia Benson on 08-25-2024 Basophils/100 WBC (Bld) 0.7 % 0-1 [facility] CBC W/Diff, Automatedon 04 Absolute Lymph 1.53 X10 3/uL Normal 0.83-4.51 [facility] Comment on above: Performed By: #### L 300.3900, L100.0100, L500.4050 #### [facility] [address] [place], [address] Absolute Neut 4.4 X10 3/uL Normal 2.0-7.7 [facility] Comment on above: Performed By: #### L 300.3900, L100.0100, L500.4050 #### [facility] [address] [place], [address] Basophils/100 WBC (Bld) 0.7 % Normal 0-1 [facility] Comment on above: Performed By: #### L 300.3900, L100.0100, L500.4050 #### [facility] [address] [place] [place], [address] Eosinophils/100 WBC (Bld) 1.9 % Normal 0-5 [facility] Comment on above: Performed By: #### L 300.3900, L100.0100, L500.4050 #### [facility] [address] [place], [address] Erythrocyte distribution width (RBC) [Ratio] 19.9 % High 11.6-14.6 [facility] Comment on above: Performed By: #### L 300.3900, L100.0100, L500.4050 #### [facility] [address] [place], [address] Hematocrit (Bld) [Volume fraction] 36.9 % Low 37-47 [facility] Comment on above: Performed By: #### L 300.3900, L100.0100, L500.4050 #### [facility] [address] [place], [address] Hemoglobin (Bld) [Mass/Vol] 10.2 g/dL Low 12.0-15.0 [facility] Comment on above: Performed By: #### L 300.3900, L100.0100, L500.4050 #### [facility] [address] [place] [place], [address] IG% 0.300 Normal 0.0-0.9 [facility] Comment on above: Result Comment: IG% - Immature Granulocytes (promyelocytes, myelocytes and metamyelocytes) > 1% indicates that a LEFT SHIFT is Present. Performed By: #### L 300.3900, L100.0100, L500.4050 #### [facility] [address] [place], [address] Lymphocytes/100 WBC (Bld) 22.8 % Normal 19-41 [facility] Comment on above: Performed By: #### L 300.3900, L100.0100, L500.4050 #### [facility] [address] [place], [address] MCH (RBC) [Entitic mass] 20.1 pg Low 27.0-32.0 [facility] Comment on above: Performed By: #### L 300.3900, L100.0100, L500.4050 #### [facility] [address] [place], [address] MCHC (RBC) [Mass/Vol] 27.6 g/dL Low 32-36 [facility] Comment on above: Performed By: #### L 300.3900, L100.0100, L500.4050 #### [facility] [address] [place], [address] MCV (RBC) [Entitic vol] 72.8 fL Low 81-99 [facility] Comment on above: Performed By: #### L 300.3900, L100.0100, L500.4050 #### [facility] [address] [place], [address] Monocytes/100 WBC (Bld) 8.9 % Normal 0-10 [facility] Comment on above: Performed By: #### L 300.3900, L100.0100, L500.4050 #### [facility] [address] [place], [address] Neutrophils/100 WBC (Bld) 65.4 % Normal 47-70 [facility] Comment on above: Performed By: #### L 300.3900, L100.0100, L500.4050 #### [facility] [address] [place], [address] Nucleated RBC (Bld) [#/Vol] 0 10*3/uL Normal 0-5 [facility] Comment on above: Performed By: #### L 300.3900, L100.0100, L500.4050 #### [facility] [address] [place], [address] Platelet mean volume (Bld) [Entitic vol] 10.0 fL Normal 6.2-12.0 [facility] Comment on above: Performed By: #### L 300.3900, L100.0100, L500.4050 #### [facility] [address] [place], [address] Platelets (Bld) [#/Vol] 218 10*3/uL Normal 150-450 [facility] Comment on above: Performed By: #### L 300.3900, L100.0100, L500.4050 #### [facility] [address] [place], [address] RBC (Bld) [#/Vol] 5.07 10*6/uL Normal 4.2-5.4 [facility] Comment on above: Performed By: #### L 300.3900, L100.0100, L500.4050 #### [facility] [address] [place] [place] [place], [address] RDW SD 50.4 fl High 35.1-43.9 [facility] Comment on above: Performed By: #### L 300.3900, L100.0100, L500.4050 #### [facility] [address] [place], [place], [address] WBC (Bld) [#/Vol] 6.7 10*3/uL Normal 4.4-11.0 [facility] Comment on above: Performed By: #### L 300.3900, L100.0100, L500.4050 #### [facility] [address] [place], [place], [address] Carbon dioxide, total [Moles /volume] in Central venous bloodOrdered By: Iglesia Benson on 08-25-2024 CO2 [Moles/Vol] 26.5 mmol/L 21.0-32.0 [facility] Chloride assayOrdered By: Yinka Benson on 08-25-2024 Chloride [Moles/Vol] 101 mmol/L 98-108 [facility] Discharge Instructionon 04-0 Discharge Instruction [facility] Medical Records Department [address] [place] [address] Instructions for Home/Discharge Instructions 08/25/24 1042 MR#: [id number] Acct: [id number] Name: CLARIBEL ALLISON Rep #: [id number] : 1955 69 From: Iglesia Benson MD PCP: Dr. Abdulaziz Ackerman MD Status:ADM IN Discharge Instructions Diet Discharge Diet: Low fat / Low cholesterol and 2000 mg Sodium Diet DC O2, CPAP, BIPAP needs Home O2 Discharge instructions: No Dressing / Incision Discharge Activity: Return to Normal Activity Weight Bearing Status: Weight bearing as tolerated Dressing / Incision Call your doctor if you observe: Fever of 101 or Higher, Coldness, Increased Pain, Numbness or Tingling, Change in Color, Inability to urinate, Inability to have a bowel movement, Shortness of breath, Dizziness, Fainting spells, Swelling in the ankles, Chest pain, Prolonged hiccupping, Increased palpitations (irregular heartbeat) and Calf discomfort Follow Up Care When: IN 2 WEEKS Test Results: Test results from this visit will be discussed in further detail at your follow-up appointment, if applicable. Discharge Plan Admission Admit Date/Time: 08/21/24 12:26 Primary Reason for Your Visit: Heart failure exacerbation. Attending Provider: Iglesia Benson Primary Care Provider: Abdulaziz Ackerman Consulting Providers: Param Dominguez Instructions Additional Instructions / Restrictions: Advised BMP and PT/INR in 2 days on 08/27/2024 and adjust the dose of warfarin and diuretics accordingly Discharge Orders/Prescriptions Prescriptions: New atorvastatin 20 mg Tablet 20 mg PO QHS 30 Days Qty: 30 2RF lisinopril 20 mg Tablet 20 mg PO DAILY 30 Days Qty: 30 2RF sennosides-docusate sodium [Stimulant Laxative Plus] 8.6-50 mg Tablet 2 tab PO BID Qty: 0 0RF acetaminophen 500 mg Tablet 1,000 mg PO Q8 Qty: 0 0RF carvedilol 3.125 mg Tablet 3.125 mg PO BIDCM 30 Days Qty: 60 2RF Rx Instructions: Hold for heart less than 50 or systolic blood pressure less than 100 mmHg. magnesium chloride [Mag 64] 64 mg Tablet,Delayed Release (Dr/Ec) 128 mg PO DAILY 30 Days Qty: 60 0RF spironolactone 50 mg tablet 50 mg PO DAILY 30 Days Qty: 30 2RF Rx Instructions: Hold for serum potassium more than 5.0 furosemide 40 mg Tablet 40 mg PO BIDLX 30 Days Qty: 60 2RF Jardiance 10 mg Tablet 10 mg PO DAILY 30 Days Qty: 30 0RF Continued baclofen 10 mg tablet 10 mg PO BID PRN (Reason: muscle spasm) Qty: 60 1RF furosemide 40 mg tablet 40 mg PO QAM Qty: 90 1RF Rx Instructions: Take 1 tablet BID x 4 days then daily potassium chloride 20 mEq tablet extended release 20 meq PO DAILY Qty: 30 1RF Held warfarin [Jantoven] 6 mg tablet 6 mg PO DAILY Hold Instructions: Hold it for 3 days till INR is 2.0 and then resume lower dose Discontinued atorvastatin [Lipitor] 10 mg tablet 10 mg PO DAILY Qty: 90 0RF Patient Comments: PT TAKES AT BEDTIME cephalexin 500 mg capsule 500 mg PO Q8H Qty: 30 0RF amlodipine 10 mg tablet 10 mg PO DAILY Qty: 90 0RF Patient Comments: PT UNSURE IF TAKING lisinopril 40 mg tablet 40 mg PO DAILY Qty: 90 0RF Patient Comments: PT SAID SHE DOES NOT TAKE, BUT RECENTLY FILLED Referrals / Follow Up: Abdulaziz Ackerman MD [Primary Care Provider] - Within 1 Week Param Dominguez MD [Med Staff - Active Staff] - Within 2 Weeks Disposition Disposition (needs filled in before D/C Order can be placed): Home, Self Care 08/25/24 1059 Iglesia Benson MD CC: Dr. Abdulaziz Ackerman MD; Dr. Param Dominguez MD Signed Normal [facility] Eosinophil percentageOrdered By: Iglesia Benson on 08-25-2024 Eosinophils/100 WBC (Bld) 1.9 % 0-5 [facility] Erythrocyte distribution wid th (RBC) [Ratio]Ordered By: Iglesia Benson on 08-25-2024 Erythrocyte distribution width (RBC) [Entitic vol] 50.4 fL High 35.1-43.9 [facility] Erythrocyte distribution wid th ratioOrdered By: Iglesia Benson on 08-25-2024 Erythrocyte distribution width (RBC) [Ratio] 19.9 % High 11.6-14.6 [facility] Erythrocyte distribution wid th standard deviationOrdered By: Iglesia Benson on 08-25-2024 Erythrocyte distribution width (RBC) [Ratio] 50.4 fl High 35.1-43.9 [facility] Estimation of creatinine jose aranceOrdered By: Iglesia Benson on 08-25-2024 Estimated Creatinine Clearance Calc 52.76 ml/min 50-250 [facility] GFR/1.73 sq M.predicted romelia g non-blacks MDRD (S/P/Bld) [Vol rate/Area]Ordered By: Iglesia Benson on 08-25-2024 Estimated GFR (MDRD) Non-Af Amer 51 Low >60 [facility] Comment on above: mL/min/1.73m2 CKD-EP I Creatinine Equation (2020) Glomerular filtration rate ( GFR) estimation/1.73 sq m using serum, plasma, or whole bOrdered By: Iglesia Benson on 08-25-2024 GFR/1.73 sq M.predicted among non-blacks MDRD (S/P/Bld) [Vol rate/Area] 51 mL/min/{1.73_m2} Low >60 [facility] Comment on above: mL/min/1.73m2 CKD-EP I Creatinine Equation (2020) Hematocrit Auto (Bld) [Volum e fraction]Ordered By: Iglesia Benson on 08-25-2024 Hematocrit (Bld) [Volume fraction] 36.9 % Low 37-47 [facility] Hemoglobin measurementOrdere d By: Iglesia Benson on 08-25-2024 Hemoglobin (Bld) [Mass/Vol] 10.2 g/dL Low 12.0-15.0 [facility] Immature granulocytes/100 WB C Auto (Bld)Ordered By: Iglesia Benson on 08-25-2024 Immature granulocytes/100 WBC (Bld) 0.300 % 0.0-0.9 [facility] Comment on above: IG% - Immature Granu locytes (promyelocytes, myelocytes and metamyelocytes) > 1% indicates that a LEFT SHIFT is Present. International normalized rat io (INR) calculationOrdered By: Iglesia Benson on 08-25-2024 INR Coag (Bld) [Relative time] 3.2 {INR} [facility] Lymphocytes Auto (Unsp spec) [#/Vol]Ordered By: Iglesia Benson on 08-25-2024 Lymphocytes (Bld) [#/Vol] 1.53 10*3/uL 0.83-4.51 [facility] Lymphocytes/100 WBC Auto (Un sp spec)Ordered By: Iglesia Benson on 08-25-2024 Lymphocytes/100 WBC (Bld) 22.8 % 19-41 [facility] MCV (mean corpuscular volume ) determinationOrdered By: Iglesia Benson on 08-25-2024 MCV (RBC) [Entitic vol] 72.8 fL Low 81-99 [facility] Mean corpuscular hemoglobin (MCH) determinationOrdered By: Iglesia Benson on 08-25-2024 MCH (RBC) [Entitic mass] 20.1 pg Low 27.0-32.0 [facility] Mean corpuscular hemoglobin concentration (MCHC) determinationOrdered By: Iglesia Benson on 08-25-2024 MCHC (RBC) [Mass/Vol] 27.6 g/dL Low 32-36 [facility] Mean platelet volume determi nationOrdered By: Iglesia Benson on 08-25-2024 Platelet mean volume (Bld) [Entitic vol] 10.0 fL 6.2-12.0 [facility] Monocyte percentageOrdered B y: Iglesia Benson on 08-25-2024 Monocytes/100 WBC (Bld) 8.9 % 0-10 [facility] Neutrophil percentageOrdered By: Iglesia Benson on 08-25-2024 Neutrophils/100 WBC (Bld) 65.4 % 47-70 [facility] Nucleated red blood cell per centageOrdered By: Iglesia Benson on 08-25-2024 Nucleated RBC/100 WBC (Bld) [Ratio] 0 % 0-5 [facility] Platelet countOrdered By: Yinka Benson on 08-25-2024 Platelets (Bld) [#/Vol] 218 10*3/uL 150-450 [facility] Potassium (Unsp spec) [Mass/ Vol]Ordered By: Iglesia Benson on 08-25-2024 Potassium [Moles/Vol] 3.4 mmol/L 3.3-5.1 [facility] Potassium measurement (mass/ volume)Ordered By: Iglesia Benson on 08-25-2024 Potassium (Unsp spec) [Mass/Vol] 3.4 mmol/L 3.3-5.1 [facility] Prothrombin Time w/INRon INR Coag (PPP) [Relative time] 3.2 {INR} Normal [facility] Comment on above: Performed By: #### L 300.3900 #### [facility] [address] [place], [address] PT Coag (PPP) [Time] 33.4 s High 11.7-14.9 [facility] Comment on above: Performed By: #### L 300.3900 #### [facility] [address] [place], [address] Prothrombin timeOrdered By: Iglesia Benson on 08-25-2024 PT Coag (PPP) [Time] 33.4 s High 11.7-14.9 [facility] RBC Auto (Bld) [#/Vol]Ordere d By: Iglesia Benson on 08-25-2024 RBC (Bld) [#/Vol] 5.07 10*6/uL 4.2-5.4 [facility] Serum creatinine measurement (mass/volume)Ordered By: Iglesia Benson on 08-25-2024 Creatinine [Mass/Vol] 1.18 mg/dL 0.70-1.20 [facility] Serum glucose measurement (m ass/volume)Ordered By: Iglesia Benson on 08-25-2024 Glucose [Mass/Vol] 114 mg/dL High 70-99 [facility] Serum or plasma calcium lakshmi urement (mass/volume)Ordered By: Iglesia Benson on 08-25-2024 Calcium [Mass/Vol] 8.5 mg/dL 7.6-11.0 [facility] Serum or plasma urea nitroge n measurement (mass/volume)Ordered By: Iglesia Benson on 08-25-2024 Urea nitrogen [Mass/Vol] 26 mg/dL High 4-19 [facility] Sodium levelOrdered By: Jenniffer Benson on 08-25-2024 Sodium [Moles/Vol] 139 mmol/L 133-145 [facility] White blood cell (WBC) count Ordered By: Iglesia Benson on 08-25-2024 WBC (Bld) [#/Vol] 6.7 10*3/uL 4.4-11.0 [facility] Basic Metabolic Profile (BMP )on 08-24-2024 BUN/CRE 25.5 RATIO High 10-20 [facility] Comment on above: Performed By: #### L 300.3900 #### [facility] [address] [place], [address] Calcium [Mass/Vol] 8.6 mg/dL Normal 7.6-11.0 [facility] Comment on above: Performed By: #### L 300.3900 #### [facility] [address] [place], [address] Chloride [Moles/Vol] 98 mmol/L Normal 98-108 [facility] Comment on above: Performed By: #### L 300.3900 #### [facility] [address] [place], [address] CO2 [Moles/Vol] 25.9 mmol/L Normal 21.0-32.0 [facility] Comment on above: Performed By: #### L 300.3900 #### [facility] [address] [place] [place], [address] Creatinine [Mass/Vol] 1.22 mg/dL High 0.70-1.20 [facility] Comment on above: Performed By: #### L 300.3900 #### [facility] [address] [place] [place], [address] ECRCL 50.97 ml/min Normal 50-250 [facility] Comment on above: Performed By: #### L 300.3900 #### [facility] [address] [place] [place], [address] GAP 14 Normal 5-15 [facility] Comment on above: Performed By: #### L 300.3900 #### [facility] [address] [place], [address] GFR/1.73 sq M.predicted among non-blacks MDRD (S/P/Bld) [Vol rate/Area] 49 mL/min/{1.73_m2} Low >60 [facility] Comment on above: Result Comment: mL/m in/1.73m2 CKD-EPI Creatinine Equation (2020) Performed By: #### L 300.3900 #### [facility] [address] [place], [address] Glucose [Mass/Vol] 115 mg/dL High 70-99 [facility] Comment on above: Performed By: #### L 300.3900 #### [facility] [address] [place], [address] Potassium [Moles/Vol] 2.8 mmol/L Low 3.3-5.1 [facility] Comment on above: Performed By: #### L 300.3900 #### [facility] [address] [place], [address] Sodium [Moles/Vol] 138 mmol/L Normal 133-145 [facility] Comment on above: Performed By: #### L 300.3900 #### [facility] [address] [place], [address] Urea nitrogen [Mass/Vol] 31 mg/dL High 4-19 [facility] Comment on above: Performed By: #### L 300.3900 #### [facility] [address] [place], [address] CBC W/Diff, Automatedon 04-0 5-2024 Absolute Lymph 1.30 X10 3/uL Normal 0.83-4.51 [facility] Comment on above: Performed By: #### L 300.3900 #### [facility] [address] [place], [address] Absolute Neut 4.3 X10 3/uL Normal 2.0-7.7 [facility] Comment on above: Performed By: #### L 300.3900 #### [facility] [address] [place], [address] Basophils/100 WBC (Bld) 0.6 % Normal 0-1 [facility] Comment on above: Performed By: #### L 300.3900 #### [facility] [address] [place] [place], [address] Eosinophils/100 WBC (Bld) 2.1 % Normal 0-5 [facility] Comment on above: Performed By: #### L 300.3900 #### [facility] [address] [place], [address] Erythrocyte distribution width (RBC) [Ratio] 19.7 % High 11.6-14.6 [facility] Comment on above: Performed By: #### L 300.3900 #### [facility] [address] [place] [place], [address] Hematocrit (Bld) [Volume fraction] 33.9 % Low 37-47 [facility] Comment on above: Performed By: #### L 300.3900 #### [facility] [address] [place], [address] Hemoglobin (Bld) [Mass/Vol] 9.7 g/dL Low 12.0-15.0 [facility] Comment on above: Performed By: #### L 300.3900 #### [facility] [address] [place], [address] IG% 0.200 Normal 0.0-0.9 [facility] Comment on above: Result Comment: IG% - Immature Granulocytes (promyelocytes, myelocytes and metamyelocytes) > 1% indicates that a LEFT SHIFT is Present. Performed By: #### L 300.3900 #### [facility] [place], [address] Lymphocytes/100 WBC (Bld) 20.7 % Normal 19-41 [facility] Comment on above: Performed By: #### L 300.3900 #### [facility] [address] [facility] [place], [address] MCH (RBC) [Entitic mass] 20.4 pg Low 27.0-32.0 [facility] Comment on above: Performed By: #### L 300.3900 #### [facility] [address] [facility] [place], [address] MCHC (RBC) [Mass/Vol] 28.6 g/dL Low 32-36 [facility] Comment on above: Performed By: #### L 300.3900 #### [facility] [address] [place], [address] MCV (RBC) [Entitic vol] 71.4 fL Low 81-99 [facility] Comment on above: Performed By: #### L 300.3900 #### [facility] [address] [place] [place], [address] Monocytes/100 WBC (Bld) 8.6 % Normal 0-10 [facility] Comment on above: Performed By: #### L 300.3900 #### [facility] [address] [place] [place], [address] Neutrophils/100 WBC (Bld) 67.8 % Normal 47-70 [facility] Comment on above: Performed By: #### L 300.3900 #### [facility] [address] [place], [address] Nucleated RBC (Bld) [#/Vol] 0 10*3/uL Normal 0-5 [facility] Comment on above: Performed By: #### L 300.3900 #### [facility] [address] [place], [address] Platelet mean volume (Bld) [Entitic vol] 10.2 fL Normal 6.2-12.0 [facility] Comment on above: Performed By: #### L 300.3900 #### [facility] [address] [place] [place], [address] Platelets (Bld) [#/Vol] 198 10*3/uL Normal 150-450 [facility] Comment on above: Performed By: #### L 300.3900 #### [facility] [address] [place], [address] RBC (Bld) [#/Vol] 4.75 10*6/uL Normal 4.2-5.4 [facility] Comment on above: Performed By: #### L 300.3900 #### [facility] [address] [place], [address] RDW SD 49.5 fl High 35.1-43.9 [facility] Comment on above: Performed By: #### L 300.3900 #### [facility] [address] [place], [address] WBC (Bld) [#/Vol] 6.3 10*3/uL Normal 4.4-11.0 [facility] Comment on above: Performed By: #### L 300.3900 #### [facility] [address] [place], [address] Magnesiumon 08-24-2024 Magnesium [Mass/Vol] 1.9 mg/dL Normal 1.5-2.2 [facility] Comment on above: Performed By: #### L 300.3900, L100.0100, L500.4050 #### [facility] [address] [place], [address] Magnesium (Unsp spec) [Mass/ Vol]Ordered By: Iglesia Benson on 08-24-2024 Magnesium [Mass/Vol] 1.9 mg/dL 1.5-2.2 [facility] Magnesium measurement (mass/ volume)Ordered By: [facility] on 08-24-2024 Magnesium (Unsp spec) [Mass/Vol] 1.9 mg/dL 1.5-2.2 [facility] Phosphoruson 08-24-2024 Phosphate [Mass/Vol] 4.7 mg/dL High 2.7-4.5 [facility] Comment on above: Performed By: #### L 300.3900, L100.0100, L500.4050 #### [facility] [address] [place], [address] Potassiumon 08-24-2024 Potassium [Moles/Vol] 3.3 mmol/L Normal 3.3-5.1 [facility] Comment on above: Performed By: #### L 300.3900, L100.0100, L500.4050 #### [facility] [address] [place], [address] Potassium [Moles/Vol] 2.9 mmol/L Low 3.3-5.1 [facility] Comment on above: Performed By: #### L 300.3900 #### [facility] [address] [place], [address] Prothrombin Time w/INRon INR Coag (PPP) [Relative time] 3.4 {INR} Normal [facility] Comment on above: Performed By: #### L 300.3900, L100.0100, L500.4050 #### [facility] [address] [place], [address] PT Coag (PPP) [Time] 35.3 s High 11.7-14.9 [facility] Comment on above: Performed By: #### L 300.3900, L100.0100, L500.4050 #### [facility] [address] [place], [address] Serum phosphorus measurement Ordered By: Iglesia Benson on 08-24-2024 Phosphorus Level 4.7 mg/dL High 2.7-4.5 [facility] Basic Metabolic Profile (BMP )on 08-23-2024 BUN/CRE 21.3 RATIO High 10-20 [facility] Comment on above: Performed By: #### L 300.3900 #### [facility] [address] [place], [address] Calcium [Mass/Vol] 8.7 mg/dL Normal 7.6-11.0 [facility] Comment on above: Performed By: #### L 300.3900 #### [facility] [address] [place] [place], [address] Chloride [Moles/Vol] 100 mmol/L Normal 98-108 [facility] Comment on above: Performed By: #### L 300.3900 #### [facility] [address] [place], [address] CO2 [Moles/Vol] 26.5 mmol/L Normal 21.0-32.0 [facility] Comment on above: Performed By: #### L 300.3900 #### [facility] [address] [place], [address] Creatinine [Mass/Vol] 1.35 mg/dL High 0.70-1.20 [facility] Comment on above: Performed By: #### L 300.3900 #### [facility] [address] [place] [place], [address] ECRCL 46.19 ml/min Low 50-250 [facility] Comment on above: Performed By: #### L 300.3900 #### [facility] [address] [place], [address] GAP 14 Normal 5-15 [facility] Comment on above: Performed By: #### L 300.3900 #### [facility] [address] [place], [address] GFR/1.73 sq M.predicted among non-blacks MDRD (S/P/Bld) [Vol rate/Area] 43 mL/min/{1.73_m2} Low >60 [facility] Comment on above: Result Comment: mL/m in/1.73m2 CKD-EPI Creatinine Equation (2020) Performed By: #### L 300.3900 #### [facility] [address] [place], [address] Glucose [Mass/Vol] 105 mg/dL High 70-99 [facility] Comment on above: Performed By: #### L 300.3900 #### [facility] [address] [place] [place], [address] Potassium [Moles/Vol] 3.3 mmol/L Normal 3.3-5.1 [facility] Comment on above: Performed By: #### L 300.3900 #### [facility] [address] [place] [place], [address] Sodium [Moles/Vol] 141 mmol/L Normal 133-145 [facility] Comment on above: Performed By: #### L 300.3900 #### [facility] [address] [place], [address] Urea nitrogen [Mass/Vol] 29 mg/dL High 4-19 [facility] Comment on above: Performed By: #### L 300.3900 #### [facility] [address] [place], [address] CBC W/Diff, Automatedon 04-0 4-2024 Absolute Lymph 1.51 X10 3/uL Normal 0.83-4.51 [facility] Comment on above: Performed By: #### L 300.3900 #### [facility] [address] [place], [address] Absolute Neut 4.7 X10 3/uL Normal 2.0-7.7 [facility] Comment on above: Performed By: #### L 300.3900 #### [facility] [address] [place], [address] Basophils/100 WBC (Bld) 0.7 % Normal 0-1 [facility] Comment on above: Performed By: #### L 300.3900 #### [facility] [address] [place], [address] Eosinophils/100 WBC (Bld) 2.2 % Normal 0-5 [facility] Comment on above: Performed By: #### L 300.3900 #### [facility] [address] [place], [address] Erythrocyte distribution width (RBC) [Ratio] 20.0 % High 11.6-14.6 [facility] Comment on above: Performed By: #### L 300.3900 #### [facility] [address] [place], [address] Hematocrit (Bld) [Volume fraction] 35.7 % Low 37-47 [facility] Comment on above: Performed By: #### L 300.3900 #### [facility] [address] [place], [address] Hemoglobin (Bld) [Mass/Vol] 9.9 g/dL Low 12.0-15.0 [facility] Comment on above: Performed By: #### L 300.3900 #### [facility] [address] [place], [address] IG% 0.300 Normal 0.0-0.9 [facility] Comment on above: Result Comment: IG% - Immature Granulocytes (promyelocytes, myelocytes and metamyelocytes) > 1% indicates that a LEFT SHIFT is Present. Performed By: #### L 300.3900 #### [facility] [address] [place], [address] Lymphocytes/100 WBC (Bld) 21.7 % Normal 19-41 [facility] Comment on above: Performed By: #### L 300.3900 #### [facility] [address] [place] [place], [address] MCH (RBC) [Entitic mass] 20.3 pg Low 27.0-32.0 [facility] Comment on above: Performed By: #### L 300.3900 #### [facility] [address] [place], [address] MCHC (RBC) [Mass/Vol] 27.7 g/dL Low 32-36 [facility] Comment on above: Performed By: #### L 300.3900 #### [facility] [address] [place], [address] MCV (RBC) [Entitic vol] 73.2 fL Low 81-99 [facility] Comment on above: Performed By: #### L 300.3900 #### [facility] [address] [place], [address] Monocytes/100 WBC (Bld) 7.9 % Normal 0-10 [facility] Comment on above: Performed By: #### L 300.3900 #### [facility] [address] [place], [address] Neutrophils/100 WBC (Bld) 67.2 % Normal 47-70 [facility] Comment on above: Performed By: #### L 300.3900 #### [facility] [address] [place], [address] Nucleated RBC (Bld) [#/Vol] 0 10*3/uL Normal 0-5 [facility] Comment on above: Performed By: #### L 300.3900 #### [facility] [address] [place], [address] Platelet mean volume (Bld) [Entitic vol] 9.9 fL Normal 6.2-12.0 [facility] Comment on above: Performed By: #### L 300.3900 #### [facility] [address] [place], [address] Platelets (Bld) [#/Vol] 199 10*3/uL Normal 150-450 [facility] Comment on above: Performed By: #### L 300.3900 #### [facility] [address] [place] [place], [address] RBC (Bld) [#/Vol] 4.88 10*6/uL Normal 4.2-5.4 [facility] Comment on above: Performed By: #### L 300.3900 #### [facility] [address] [place] [place], [address] RDW SD 50.6 fl High 35.1-43.9 [facility] Comment on above: Performed By: #### L 300.3900 #### [facility] [address] [place], [address] WBC (Bld) [#/Vol] 7.0 10*3/uL Normal 4.4-11.0 [facility] Comment on above: Performed By: #### L 300.3900 #### [facility] [address] [place], [address] Prothrombin Time w/INRon INR Coag (PPP) [Relative time] 2.6 {INR} Normal [facility] Comment on above: Performed By: #### L 300.3900, L100.0100, L500.4050 #### [facility] [address] [place], [address] PT Coag (PPP) [Time] 28.7 s High 11.7-14.9 [facility] Comment on above: Performed By: #### L 300.3900, L100.0100, L500.4050 #### [facility] [address] [place], [address] Basic Metabolic Profile (BMP )on 08-22-2024 BUN/CRE 18.8 RATIO Normal 10-20 [facility] Comment on above: Performed By: #### L 300.3900, L100.0100, L500.4050 #### [facility] [address] [place], [address] Calcium [Mass/Vol] 8.3 mg/dL Normal 7.6-11.0 [facility] Comment on above: Performed By: #### L 300.3900, L100.0100, L500.4050 #### [facility] [address] [place] [place], [address] Chloride [Moles/Vol] 104 mmol/L Normal 98-108 [facility] Comment on above: Performed By: #### L 300.3900, L100.0100, L500.4050 #### [facility] [address] [place], [address] CO2 [Moles/Vol] 25.1 mmol/L Normal 21.0-32.0 [facility] Comment on above: Performed By: #### L 300.3900, L100.0100, L500.4050 #### [facility] [address] [place], [address] Creatinine [Mass/Vol] 1.19 mg/dL Normal 0.70-1.20 [facility] Comment on above: Performed By: #### L 300.3900, L100.0100, L500.4050 #### [facility] [address] [place], [address] ECRCL 52.90 ml/min Normal 50-250 [facility] Comment on above: Performed By: #### L 300.3900, L100.0100, [id number] #### [facility] [address] [place], [address] GAP 12 Normal 5-15 [facility] Comment on above: Performed By: #### L 300.3900, L100.0100, L500.4050 #### [facility] [address] [place], [address] GFR/1.73 sq M.predicted among non-blacks MDRD (S/P/Bld) [Vol rate/Area] 50 mL/min/{1.73_m2} Low >60 [facility] Comment on above: Result Comment: mL/m in/1.73m2 CKD-EPI Creatinine Equation (2020) Performed By: #### L 300.3900, L100.0100, L500.4050 #### [facility] [address] [place], [address] Glucose [Mass/Vol] 104 mg/dL High 70-99 [facility] Comment on above: Performed By: #### L 300.3900, L100.0100, L500.4050 #### [facility] [address] [place], [address] Potassium [Moles/Vol] 3.7 mmol/L Normal 3.3-5.1 [facility] Comment on above: Performed By: #### L 300.3900, L100.0100, L500.4050 #### [facility] [address] [place], [address] Sodium [Moles/Vol] 140 mmol/L Normal 133-145 [facility] Comment on above: Performed By: #### L 300.3900, L100.0100, [id number] #### [facility] [address] [place], [address] Urea nitrogen [Mass/Vol] 22 mg/dL High 4-19 [facility] Comment on above: Performed By: #### L 300.3900, L100.0100, [id number] #### [facility] [address] [place], [address] CBC W/Diff, Automatedon 04-0 3-2024 Absolute Lymph 1.70 X10 3/uL Normal 0.83-4.51 [facility] Comment on above: Performed By: #### L 300.3900, L100.0100, [id number] #### [facility] [address] [place], [address] Absolute Neut 4.7 X10 3/uL Normal 2.0-7.7 [facility] Comment on above: Performed By: #### L 300.3900, L100.0100, [id number] #### [facility] [address] [place], [address] Basophils/100 WBC (Bld) 1.0 % Normal 0-1 [facility] Comment on above: Performed By: #### L 300.3900, L100.0100, [id number] #### [facility] [address] [place], [address] Eosinophils/100 WBC (Bld) 1.8 % Normal 0-5 [facility] Comment on above: Performed By: #### L 300.3900, L100.0100, [id number] #### [facility] [address] [place], [address] Erythrocyte distribution width (RBC) [Ratio] 19.8 % High 11.6-14.6 [facility] Comment on above: Performed By: #### L 300.3900, L100.0100, L500.4050 #### [facility] [address] [place], [address] Hematocrit (Bld) [Volume fraction] 33.2 % Low 37-47 [facility] Comment on above: Performed By: #### L 300.3900, L100.0100, L500.4050 #### [facility] [address] [place], [address] Hemoglobin (Bld) [Mass/Vol] 9.5 g/dL Low 12.0-15.0 [facility] Comment on above: Performed By: #### L 300.3900, L100.0100, L500.4050 #### [facility] [address] [place], [address] IG% 0.500 Normal 0.0-0.9 [facility] Comment on above: Result Comment: IG% - Immature Granulocytes (promyelocytes, myelocytes and metamyelocytes) > 1% indicates that a LEFT SHIFT is Present. Performed By: #### L 300.3900, L100.0100, L500.4050 #### [facility] [address] [place], [address] Lymphocytes/100 WBC (Bld) 23.2 % Normal 19-41 [facility] Comment on above: Performed By: #### L 300.3900, L100.0100, [id number] #### [facility] [address] [place], [address] MCH (RBC) [Entitic mass] 20.4 pg Low 27.0-32.0 [facility] Comment on above: Performed By: #### L 300.3900, L100.0100, L500.4050 #### [facility] [address] [place], [address] MCHC (RBC) [Mass/Vol] 28.6 g/dL Low 32-36 [facility] Comment on above: Performed By: #### L 300.3900, L100.0100, [id number] #### [facility] [address] [place], [address] MCV (RBC) [Entitic vol] 71.2 fL Low 81-99 [facility] Comment on above: Performed By: #### L 300.3900, L100.0100, [id number] #### [facility] [address] [place], [address] Monocytes/100 WBC (Bld) 10.0 % Normal 0-10 [facility] Comment on above: Performed By: #### L 300.3900, L100.0100, [id number] #### [facility] [address] [place], [address] Neutrophils/100 WBC (Bld) 63.5 % Normal 47-70 [facility] Comment on above: Performed By: #### L 300.3900, L100.0100, [id number] #### [facility] [address] [place], [address] Nucleated RBC (Bld) [#/Vol] 0 10*3/uL Normal 0-5 [facility] Comment on above: Performed By: #### L 300.3900, L100.0100, [id number] #### [facility] [address] [place], [address] Platelet mean volume (Bld) [Entitic vol] 9.4 fL Normal 6.2-12.0 [facility] Comment on above: Performed By: #### L 300.3900, L100.0100, [id number] #### [facility] [address] [place], [address] Platelets (Bld) [#/Vol] 197 10*3/uL Normal 150-450 [facility] Comment on above: Performed By: #### L 300.3900, L100.0100, [id number] #### [facility] [address] [place], [address] RBC (Bld) [#/Vol] 4.66 10*6/uL Normal 4.2-5.4 [facility] Comment on above: Performed By: #### L 300.3900, L100.0100, L500.4050 #### [facility] [address] [place], [address] RDW SD 49.0 fl High 35.1-43.9 [facility] Comment on above: Performed By: #### L 300.3900, L100.0100, [id number] #### [facility] [address] [place], [address] WBC (Bld) [#/Vol] 7.3 10*3/uL Normal 4.4-11.0 [facility] Comment on above: Performed By: #### L 300.3900, L100.0100, L500.4050 #### [facility] [address] [place], [address] Calculated very low density lipoprotein (VLDL) cholesterol measurementOrdered By: Iglesia Benson on 08-22-2024 Calculated very low density lipoprotein (VLDL) cholesterol measurement 15 mg/dL 5-40 [facility] VLDL Cholesterol 15 mg/dL -40 [facility] Electrocardiogram reportOrde red By: Param Dominguez on 08-22-2024 EKG study [facility] [address] [place] [address] 12 Lead EKG 08/21/24 1114 MR#: [id number] Acct: [id number] Name: CLARIBEL ALLISON Rep #:[id number] : 1955 69 From: Param rodriguez MD Attending Dr: Dr. Iglesia Benson MD Status: ADM IN Ordering Dr: Skyler Watkins MD Date: 08/21 Location: ICU Sex: F C Admitted: 08/21/24 Test Reason : CP Blood Pressure : */* mmHG Vent. 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 Abdulaziz Ackerman MD; Dr. Iglesia Benson MD; Dr. Skyler Watkins MD ~ Signed [facility] Work Phone: LDL calc ser/plasOrdered By: Iglesia Benson on 08-22-2024 Cholesterol in LDL [Mass/Vol] 64 mg/dL [facility] Comment on above: Suyjopshrq=902-272 m g/dL & Higher Daoo=707 mg/dL or greater LDL Cholesterol, Calculated 64 mg/dL [facility] Comment on above: Rveveouymn=566-880 m g/dL & Higher Slhg=890 mg/dL or greater Lipid Profileon 08-22-2024 CHOL:HDL 4.09 Normal [facility] Comment on above: Performed By: #### L 300.3900, L100.0100, L500.4050 #### [facility] [address] [place], [address] Cholesterol [Mass/Vol] 105 mg/dL Normal <=200 [facility] Comment on above: Result Comment: Chol esterol level, Desirable <200 mg/dL Borderline high cholesterol 200-239 mg/dL High cholesterol >=240 mg/dL Recommendations of the NCEP Adult Treatment Panel for the following risk-cutoff thresholds for the [place] population. Performed By: #### L 300.3900, L100.0100, L500.4050 #### [facility] [address] [place], [address] Cholesterol in HDL [Mass/Vol] 26 mg/dL Low [facility] Comment on above: Result Comment: Phylicia onal Cholesterol Education Program (NCEP) guidelines: <40 mg/dL: Low HDL-cholesterol (major risk factor for CHD) >= 60 mg/dL: High HDL-cholesterol (negative risk factor for CHD) HDL-cholesterol is affected by a number of factors, e.g. smoking, exercise, hormones, sex and age. Performed By: #### L 300.3900, L100.0100, L500.4050 #### [facility] [address] [place], [address] Cholesterol in LDL [Mass/Vol] 64 mg/dL Normal [facility] Comment on above: Result Comment: Bord cbfyzg=720-608 mg/dL Higher Usdf=767 mg/dL or greater Performed By: #### L 300.3900, L100.0100, L500.4050 #### [facility] [address] [place], [address] Cholesterol in VLDL [Mass/Vol] 15 mg/dL Normal 5-40 [facility] Comment on above: Performed By: #### L 300.3900, L100.0100, L500.4050 #### [facility] [address] [place], [address] Triglyceride [Mass/Vol] 74 mg/dL Normal [facility] Comment on above: Result Comment: The drugs N-Acetylcysteine and Metamizole may falsely depress this assay. Normal range: <150 mg/dL Borderline High: 150-199 mg/dL High: 200-499 mg/dL Very High: >500 mg/dL Performed By: #### L 300.3900, L100.0100, L500.4050 #### [facility] [address] [place], [address] Prothrombin Time w/INRon INR Coag (PPP) [Relative time] 1.9 {INR} Normal [facility] Comment on above: Performed By: #### L 300.3900, L100.0100, L500.4050 #### [facility] [address] [place], [address] PT Coag (PPP) [Time] 22.6 s High 11.7-14.9 [facility] Comment on above: Performed By: #### L 300.3900, L100.0100, L500.4050 #### [facility] [address] [place], [address] Screening total cholesterol/ high density lipoprotein (HDL) cholesterol ratioOrdered By: Iglesia Benson on 08-22-2024 Cholesterol.total/Choles terol in HDL [Mass ratio] 4.09 {ratio} [facility] Serum or plasma cholesterol in HDL measurement (mass/volume)Ordered By: Iglesia Benson on 08-22-2024 Cholesterol in HDL [Mass/Vol] 26 mg/dL Low >40 [facility] Comment on above: National Cholesterol Education Program (NCEP) guidelines:<40 mg/dL: Low HDL-cholesterol (major risk factor for CHD)>= 60 mg/dL: High HDL-cholesterol (negative risk factor for CHD)HDL-cholesterol is affected by a number of factors, e.g. smoking, exercise, hormones, sex and age. Serum or plasma cholesterol measurement (mass/volume)Ordered By: Iglesia Benson on 08-22-2024 Cholesterol [Mass/Vol] 105 mg/dL <201 [facility] Comment on above: Cholesterol level, D esirable <200 mg/dLBorderline high cholesterol 200-239 mg/dLHigh cholesterol >=240 mg/dLRecommendations of the NCEP Adult Treatment Panel for the following risk-cutoff thresholds for the [place] population. TSH DL <= 0.005 mIU/L QnOrde red By: Iglesia Benson on 08-22-2024 Thyroid Stimulating Hormone (TSH) 3.580 uIU/mL 0.300-4.200 [facility] TSH Qn 3.580 uIU/mL 0.300-4.200 [facility] Thyroid Stim Hormone (TSH)on 08-22-2024 TSH 3.580 uIU/mL Normal 0.300-4.200 [facility] Comment on above: Performed By: #### L 300.3900, L100.0100, L500.4050 #### [facility] [address] [place], [address] Triglycerides measurementOrd ered By: Iglesia Benson on 08-22-2024 Triglyceride [Mass/Vol] 74 mg/dL <199 [facility] Comment on above: The drugs N-Acetylcy steine and Metamizole may falsely depress this assay. Normal range: <150 mg/dLBorderline High: 150-199 mg/dLHigh: 200-499 mg/dLVery High: >500 mg/dL 12 Lead EKGon 08-21-2024 12 Lead EKG [facility] [address] [place] [address] 12 Lead EKG 08/21/24 1114 MR#: [id number] Acct: [id number] Name: CLARIBEL ALLISON Rep #: [id number] : 1955 69 From: Param Dominguez MD Attending Dr: Dr. Iglesia Benson MD Status: ADM IN Ordering Dr: Skyler Watkins MD Date: 08/21/24 Location: ICU Sex: F C Admitted: 08/21/24 Test Reason : CP Blood Pressure : */* mmHG Vent. 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 Abdulaziz Ackerman MD; Dr. Iglesia Benson MD; Dr. Skyler Watkins MD Signed Normal [facility] Absolute neutrophil countOrd ered By: Skyler Watkins on 08-21-2024 Neutrophils (Bld) [#/Vol] 6.1 10*3/uL 2.0-7.7 [facility] Anion gap in Serum or Plasma Ordered By: Skyler Watkins on 08-21-2024 Anion gap [Moles/Vol] 12 mmol/L 5-15 [facility] BUN/creatinine ratioOrdered By: Skyler Watkins on 08-21-2024 Urea nitrogen/Creatinine [Mass ratio] 21.7 mg/mg High 10-20 [facility] Basophil percentageOrdered B y: Skyler Watkins on 08-21-2024 Basophils/100 WBC (Bld) 0.8 % 0-1 [facility] Bilirubin, totalOrdered By: Skyler Watkins on 08-21-2024 Bilirubin [Mass/Vol] 0.84 mg/dL 0.00-1.30 [facility] CBC W/Diff, Automatedon Absolute Lymph 1.20 X10 3/uL Normal 0.83-4.51 [facility] Comment on above: Performed By: #### L 300.7150 #### [facility] [address] [place] [place], [address] Absolute Neut 6.1 X10 3/uL Normal 2.0-7.7 [facility] Comment on above: Performed By: #### L 300.3900 #### [facility] [address] [place], [address] Basophils/100 WBC (Bld) 0.8 % Normal 0-1 [facility] Comment on above: Performed By: #### L 300.3900 #### [facility] [address] [place] [place], [address] Eosinophils/100 WBC (Bld) 1.0 % Normal 0-5 [facility] Comment on above: Performed By: #### L 300.3900 #### [facility] [address] [place], [address] Erythrocyte distribution width (RBC) [Ratio] 19.6 % High 11.6-14.6 [facility] Comment on above: Performed By: #### L 300.3900 #### [facility] [address] [place], [address] Hematocrit (Bld) [Volume fraction] 34.9 % Low 37-47 [facility] Comment on above: Performed By: #### L 300.3900 #### [facility] [address] [place], [address] Hemoglobin (Bld) [Mass/Vol] 9.8 g/dL Low 12.0-15.0 [facility] Comment on above: Performed By: #### L 300.3900 #### [facility] [address] [place], [address] IG% 0.400 Normal 0.0-0.9 [facility] Comment on above: Result Comment: IG% - Immature Granulocytes (promyelocytes, myelocytes and metamyelocytes) > 1% indicates that a LEFT SHIFT is Present. Performed By: #### L 300.3900 #### [facility] [address] [place] [place], [address] Lymphocytes/100 WBC (Bld) 15.3 % Low 19-41 [facility] Comment on above: Performed By: #### L 300.3900 #### [facility] [address] [place], [address] MCH (RBC) [Entitic mass] 20.2 pg Low 27.0-32.0 [facility] Comment on above: Performed By: #### L 300.3900 #### [facility] [address] [place] [place], [address] MCHC (RBC) [Mass/Vol] 28.1 g/dL Low 32-36 [facility] Comment on above: Performed By: #### L 300.3900 #### [facility] [place], [address] MCV (RBC) [Entitic vol] 72.0 fL Low 81-99 [facility] Comment on above: Performed By: #### L 300.3900 #### [facility] [address] [place], [address] Monocytes/100 WBC (Bld) 5.2 % Normal 0-10 [facility] Comment on above: Performed By: #### L 300.3900 #### [facility] [address] [place], [address] Neutrophils/100 WBC (Bld) 77.3 % High 47-70 [facility] Comment on above: Performed By: #### L 300.3900 #### [facility] [address] [place], [address] Nucleated RBC (Bld) [#/Vol] 0 10*3/uL Normal 0-5 [facility] Comment on above: Performed By: #### L 300.3900 #### [facility] [address] [place], [address] Platelet mean volume (Bld) [Entitic vol] 9.2 fL Normal 6.2-12.0 [facility] Comment on above: Performed By: #### L 300.3900 #### [facility] [address] [place], [address] Platelets (Bld) [#/Vol] 189 10*3/uL Normal 150-450 [facility] Comment on above: Performed By: #### L 300.3900 #### [facility] [address] [place], [address] RBC (Bld) [#/Vol] 4.85 10*6/uL Normal 4.2-5.4 [facility] Comment on above: Performed By: #### L 300.3900 #### [facility] [address] [place], [address] RDW SD 49.1 fl High 35.1-43.9 [facility] Comment on above: Performed By: #### L 300.3900 #### [facility] [address] [place], [address] WBC (Bld) [#/Vol] 7.9 10*3/uL Normal 4.4-11.0 [facility] Comment on above: Performed By: #### L 300.3900 #### [facility] [address] [place], [address] Carbon dioxide, total [Moles /volume] in Central venous bloodOrdered By: Skyler Watkins on 08-21-2024 CO2 [Moles/Vol] 21.3 mmol/L 21.0-32.0 [facility] Chest PA and Lateralon 08-21 Chest PA and Lateral [facility] [address] [place] [address] Chest PA and Lateral MR#: [id number] Acct: [id number] Name: CLARIBEL ALLISON Rep #: [id number] : 1955 F 69 From: Jimmy Flores MD PCP: Dr. Abdulaziz Ackerman MD Status: PRE ER Study: Chest PA and Lateral Date of Exam: 08/21/24 Exam# [id number] Ordering Dr: Skyler Watkins MD EXAM: XR Chest, 2 Views CLINICAL INDICATION: DYSPNEA, DYSPNEA EXERTION, ORTHOPNEA BILATERAL RAL TECHNIQUE: Frontal and lateral views of the chest. COMPARISON: No relevant prior studies available. FINDINGS: LUNGS AND PLEURAL SPACES: See below. HEART: Cardiomegaly with mild congestion. MEDIASTINUM: Unremarkable. Normal mediastinal contour. BONES/JOINTS: Unremarkable. No acute fracture. RAD/Chest PA and Lateral IMPRESSION: Cardiomegaly with mild congestion. Reading [facility] CC: Dr. Abdulaziz Ackerman MD; Dr. 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, [address] Albumin/Globulin [Mass ratio] 1.2 {ratio} Normal 0.9-2.4 [facility] Comment on above: Performed By: #### L 300.3900 #### [facility] [address] [place], [address] ALK PHOS 84 U/L Normal 35-104 [facility] Comment on above: Performed By: #### L 300.3900 #### [facility] [address] [place], [address] ALT [Catalytic activity/Vol] 27 U/L Normal <=34 [facility] Comment on above: Performed By: #### L 300.3900 #### [facility] [address] [place] [place], [address] AST [Catalytic activity/Vol] 38 U/L High <=31 [facility] Comment on above: Performed By: #### L 300.3900 #### [facility] [address] [place] [place], [address] Bilirubin [Mass/Vol] 0.84 mg/dL Normal 0.00-1.30 [facility] Comment on above: Performed By: #### L 300.3900 #### [facility] [address] [place] [place] [place], [address] BUN/CRE 21.7 RATIO High 10-20 [facility] Comment on above: Performed By: #### L 300.3900 #### [facility] [address] [place], [address] Calcium [Mass/Vol] 8.6 mg/dL Normal 7.6-11.0 [facility] Comment on above: Performed By: #### L 300.3900 #### [facility] [address] [place], [address] Chloride [Moles/Vol] 105 mmol/L Normal 98-108 [facility] Comment on above: Performed By: #### L 300.3900 #### [facility] [address] [place] [place], [address] CO2 [Moles/Vol] 21.3 mmol/L Normal 21.0-32.0 [facility] Comment on above: Performed By: #### L 300.3900 #### [facility] [address] [place], [address] Creatinine [Mass/Vol] 0.87 mg/dL Normal 0.70-1.20 [facility] Comment on above: Performed By: #### L 300.3900 #### [facility] [address] [place], [address] ECRCL 73.62 ml/min Normal 50-250 [facility] Comment on above: Performed By: #### L 300.3900 #### [facility] [address] [place], [address] GAP 12 Normal 5-15 [facility] Comment on above: Performed By: #### L 300.3900 #### [facility] [address] [place] [place], [address] GFR/1.73 sq M.predicted among non-blacks MDRD (S/P/Bld) [Vol rate/Area] 73 mL/min/{1.73_m2} Normal >60 [facility] Comment on above: Result Comment: mL/m in/1.73m2 CKD-EPI Creatinine Equation (2020) Performed By: #### L 300.3900 #### [facility] [address] [place], [address] Globulin (S) [Mass/Vol] 2.9 g/dL Normal 2.2-4.2 [facility] Comment on above: Performed By: #### L 300.3900 #### [facility] [address] [place] [place], [address] Glucose [Mass/Vol] 166 mg/dL High 70-99 [facility] Comment on above: Performed By: #### L 300.3900 #### [facility] [address] [place], [address] Potassium [Moles/Vol] 3.9 mmol/L Normal 3.3-5.1 [facility] Comment on above: Performed By: #### L 300.3900 #### [facility] [address] [place] [place], [address] Sodium [Moles/Vol] 139 mmol/L Normal 133-145 [facility] Comment on above: Performed By: #### L 300.3900 #### [facility] [address] [place], [address] T PROT 6.5 g/dL Normal 5.9-8.4 [facility] Comment on above: Performed By: #### L 300.3900 #### [facility] [address] [place], [address] Urea nitrogen [Mass/Vol] 19 mg/dL Normal 4-19 [facility] Comment on above: Performed By: #### L 300.3900 #### [facility] [address] [place], [address] Consultation - Cardiologyon 08-21-2024 Consultation - Cardiology [facility] Medical Records Department [address] [facility] [place] [address] Consultation - Cardiology 08/21/24 [facility] MR#: [id number] Acct: [id number] Name: CLARIBEL ALLISON Rep #: [id number] : 1955 69 From: Param Dominguez MD PCP: Dr. Abdulaziz Ackerman MD Status:ADM IN Location: ICU [id number] Assessment Plan Assessment/Plan (1) Heart failure with reduced ejection fraction: PLAN: Patient presents with a 3-month history of progressive dyspnea on exertion which has gotten much worse over the last 3 days. She reports a 30 pound weight gain over 3 months she has had increasing lower extremity edema and weeping sores. The patient has intermittently been on Lasix in her home environment. She had a remote history of a catheterization in October 2022 which showed a normal EF of 60% normal LAD and left main trunk with mild circumflex and RCA disease. Echo done today shows an EF of 20% in a global fashion. There were no segmental wall motion abnormalities. The patient's troponins were minimally elevated at 36 and 44. She denies any chest pain at this point in time. The patient is diuresing with IV Lasix. Given her new severe LV dysfunction I recommend we increase her guideline directed medical therapy as blood pressure and heart rate will tolerate. We should discontinue the amlodipine. She should be placed on metoprolol succinate 50 mg twice daily for rate control and treating her LV dysfunction. Would not reinstitute her lisinopril at half dose 20 mg every morning starting tomorrow morning. I recommend discontinuing the potassium supplement and placing her on spironolactone 25 mg daily starting this evening. Should monitor basic metabolic panel every morning x 3 days to monitor her renal function which was normal on admission. The patient is also anemic with a hemoglobin of 9.8. (2) Paroxysmal atrial fibrillation with RVR: PLAN: Patient is atrial fibrillation rate is appropriately increased given her cardiac decompensation and heart failure. We will try to better control that by increasing her metoprolol succinate to 50 mg twice daily. She should be continued on Coumadin for the time being and monitor her hemoglobin closely. INR was 1.8 today on admission. She has been on Coumadin long-term but most recent INRs in the chart are not therapeutic. Target INR would be 2???3. (3) Microcytic anemia: PLAN: Will defer to the primary service to evaluate the patient's anemia. (4) Thoracoabdominal aortic aneurysm (TAAA): QUALIFIERS: Thoracoabdominal aorta location: supraceliac aorta Presence of rupture: w [facility] rupture Qualified Code(s): I71.61 - Supraceliac aneurysm of the abdominal aorta, without rupture PLAN: Patient carries a history of a thoracicoabdominal aneurysm type I. This has been monitored by Dr. Dodson in the past with a CTA which showed a maximum diameter of 4.9 cm in the mid descending thoracic aorta November 2022. At this point in time given the patient's morbid obesity, her pulmonary insufficiency, and her acute heart failure exacerbation she is not a candidate for further evaluation and treatment surgically for this thoracicoabdominal aneurysm at this time in my opinion. 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 Her INR today was 1.8 is noted. PLAN: Plan 1. Will titrate guideline directed medical therapy for heart failure with reduced ejection fraction as tolerated. 2. Patient would probably benefit from SGLT2 inhibitor if financially viable. 3. Continue with supplemental oxygen as tolerated. 4. Once titrated to maximum tolerated dose of guideline directed medical therapy would repeat echocardiogram 6 to 12 weeks later. 5. Will need to strictly control blood pressure given the patient's history of thoracoabdominal aneurysm. HPI Consult Data Date of Consult: 08/21/24 HPI Narrative Reason for Consultation: CHF HPI Narrative: CLARIBEL ALLISON, is a 69 F who presents patient presents with progressive dyspnea on exertion and shortness of breath at rest. She also complains of orthopnea and has been sleeping in her recliner chair for the last 3 months. Patient has also noticed a 30 pound weight gain over the last 3 months and has developed weeping sores on her right lower extremity. She had been intermittently having taking increased doses of Lasix prescribed by her internal medicine team. She actually lost about 8 pounds the last time she was evaluated. This was July 31, 2024. The patient came in today because she has had progressive dyspnea on exertion and has not been able to get rid of the extra fluid. She does have a history of atrial fibrillation is on Coumadin in the home environment. INR today was 1.8. The patient was placed on oxygen the emergency room and took it off. She claims she has never had it offered to her but the nurs (more content not included)... Normal [facility] Echo Completeon 08-21-2024 Echo Complete [facility] [address] [place] [address] Echo Complete 08/21/24 1501 MR#: [id number] Acct: [id number] Name: CLARIBEL ALLISON Rep #: [id number] : 1955 69 From: Jamal Munoz MD Attending Dr: Dr. Iglesia Benson MD Status: ADM IN Ordering Dr: Iglesia Benson MD Date: 08/21/24 Location: ICU Sex: F C Admitted: 08/21/24 Reason For Study Reason For Study: SOB/Dyspnea Procedure This was a 2D Doppler, Color Flow transthoracic echocardiogram. Exam performed portable in ICU/CCU. Left Ventricle Normal LV size. Mild concentric left ventricular hypertrophy. The left ventricular ejection fraction is 20 %. There is severe global hypokinesis of the left ventricle. Right Ventricle Normal RV size. Normal systolic function. Atria The left atrium is moderately enlarged. The right atrium is mildly enlarged. Mitral Valve Bileaflet diffuse mitral valve thickening. Mild-Moderate (1-2+) eccentric mitral valve insufficiency. Tricuspid Valve Normal tricuspid valve. Mild to moderate (1-2+) tricuspid valve insufficiency. Pulmonary artery systolic pressure is 40 mmHg. Aortic Valve Trisinus/trileaflet aortic valve. Mild (1+) aortic valve insufficiency. Pulmonic Valve Normal pulmonic valve. Great Vessels Mildly dilated aortic root. The pulmonary artery is normal size. Inferior vena cava collapse with respiration. Pericardium/Pleural No pericardial effusion. MMode/2D Measurements Calculations LVIDd: 4.8 cm IVSd: 1.5 cm Ao root diam: 4.2 cm LVIDs: 4.1 cm LVPWd: 1.2 cm RVDd: 4.2 cm FS: 15.0 % asc Aorta Diam: 4.8 cm LAV(MOD-bp): 103.1 ml LVAd ap4: 32.5 cm2 LAV(MOD-bp) Indexed: 52.1 ml/m2 LVLd ap4: 7.9 cm LAV(MOD-sp2): 96.1 ml EDV(MOD-sp4): 110.6 ml LAV(MOD-sp4): 109.3 ml EDV(sp4-el): 113.4 ml LVAs ap4: 27.1 cm2 LVLs ap4: 7.9 cm ESV(MOD-sp4): 76.5 ml ESV(sp4-el): 78.9 ml EF(MOD-sp4): 30.8 % EF(sp4-el): 30.4 % SV(MOD-sp4): 34.1 ml SV(sp4-el): 34.5 ml LA A4 area: 30.4 cm2 SI(MOD-sp4): 17.2 ml/m2 LA dimension(2D): 5.9 cm RA A4 area: 25.3 cm2 TAPSE: 1.6 cm Doppler Measurements Calculations MV E max graham: 131.0 cm/sec MV V2 max: 185.8 cm/sec Ao V2 max: 133.5 cm/sec MV max P.9 mmHg Ao max P.3 mmHg MV V2 mean: 92.7 cm/sec MV mean P.6 mmHg MV V2 VTI: 23.4 cm AI max graham: 384.4 cm/sec LV V1 max: 97.2 cm/sec MR max graham: 487.3 cm/sec AI max P.3 mmHg LV V1 max P.9 mmHg MR max P.0 mmHg AI dec slope: 280.4 cm/sec2 AI P1/2t: 401.5 msec PA V2 max: 70.9 cm/sec TR max graham: 300.7 cm/sec TR max P.2 mmHg ECHO/Echo Complete Interpretation Summary Normal LV size. The left ventricular ejection fraction is 20 %. There is severe global hypokinesis of the left ventricle. The left atrium is moderately enlarged. Mild-Moderate (1-2+) eccentric mitral valve insufficiency. Mildly dilated aortic root. The right atrium is mildly enlarged. Ordering Physician: Iglesia Benson Referring Physician: Abdulaziz Ackerman Performed By: Mason Reyes RCS 08/21/24 1634 Date Jamal Munoz MD CC: Dr. Abdulaziz Ackerman MD; Dr. 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 [address] Echo Complete 08/21/24 1501 MR#: [id number] Acct: [id number] Name: CLARIBEL ALLISON Rep #:[id number] : 1955 69 From: Jamal Flynn Attending Dr: Dr. Iglesia Benson MD Status: ADM IN Ordering Dr: Iglesia Benson MD Date: 08/21/24 Location: ICU Sex: F C Admitted: 08/21/24 Reason For Study Reason For Study: SOB/Dyspnea Procedure This was a 2D Doppler, Color Flow transthoracic echocardiogram. Exam performed portable in ICU/CCU. Left Ventricle Normal LV size. Mild concentric left ventricular hypertrophy. The left ventricular ejection fraction is 20 %. There is severe global hypokinesis of the left ventricle. Right Ventricle Normal RV size. Normal systolic function. Atria The left atrium is moderately enlarged. The right atrium is mildly enlarged. Mitral Valve Bileaflet diffuse mitral valve thickening. Mild-Moderate (1-2+) eccentric mitralvalve insufficiency. Tricuspid Valve Normal tricuspid valve. Mild to moderate (1-2+) tricuspid valve insufficiency. Pulmonary artery systolic pressure is 40 mmHg. Aortic Valve Trisinus/trileaflet aortic valve. Mild (1+) aortic valve insufficiency. Pulmonic Valve Normal pulmonic valve. Great Vessels Mildly dilated aortic root. The pulmonary artery is normal size. Inferior vena cava collapse with respiration. Pericardium/Pleural No pericardial effusion. MMode/2D Measurements & Calculations LVIDd: 4.8 cm IVSd: 1.5 cm Ao root diam: 4.2 cm LVIDs: 4.1 cm LVPWd: 1.2 cm RVDd: 4.2 cm FS: 15.0 % asc Aorta Diam: 4.8 cm LAV(MOD-bp): 103.1 ml LVAd ap4: 32.5 cm2 LAV(MOD-bp) Indexed: 52.1 ml/m2 LVLd ap4: 7.9 cm LAV(MOD-sp2): 96.1 ml EDV(MOD-sp4): 110.6 ml LAV(MOD-sp4): 109.3 ml EDV(sp4-el): 113.4 ml LVAs ap4: 27.1 cm2 LVLs ap4: 7.9 cm ESV(MOD-sp4): 76.5 ml ESV(sp4-el): 78.9 ml EF(MOD-sp4): 30.8 % EF(sp4-el): 30.4 % ___ __ SV(MOD-sp4): 34.1 ml SV(sp4-el): 34.5 ml LA A4 area: 30.4 cm2 SI(MOD-sp4): 17.2 ml/m2 LA dimension(2D): 5.9 cm RA A4 area: 25.3 cm2 TAPSE: 1.6 cm Doppler Measurements & Calculations MV E max graham: 131.0 cm/sec MV V2 max: 185.8 cm/sec Ao V2 max: 133.5 cm/sec MV max P.9 mmHg Ao max P.3 mmHg MV V2 mean: 92.7 cm/sec MV mean P.6 mmHg MV V2 VTI: 23.4 cm AI max graham: 384.4 cm/sec LV V1 max: 97.2 cm/sec MR max graham: 487.3 cm/sec AI max P.3 mmHg LV V1 max P.9 mmHg MR max P.0 mmHg AI dec slope: 280.4 cm/sec2 AI P1/2t: 401.5 msec PA V2 max: 70.9 cm/sec TR max graham: 300.7 cm/sec TR max P.2 mmHg ECHO/Echo Complete Interpretation Summary Normal LV size. The left ventricular ejection fraction is 20 %. There is severe global hypokinesis of the left ventricle. The left atrium is moderately enlarged. Mild-Moderate (1-2+) eccentric mitral valve insufficiency. Mildly dilated aortic root. The right atrium is mildly enlarged. Ordering Physician: Iglesia Benson Referring Physician: Abdulaziz Ackerman Performed By: Mason Reyes RCS 08/21/24 2564 Date _ Jamal Munoz MD CC: Dr. Abdulaziz Ackerman MD; Dr. Iglesia Benson MD ~ Date Dictated: 08/21/24 1501 Date Transcribed: 08/21/24 1634 Meat Washer: Signed [facility] Work Phone: Emergency Department Summary on 08-21-2024 Emergency Department Summary [facility] Medical Records Department [address] [place] [address] Emergency Department Summary 08/21/24 MR#: [id number] Acct: [id number] Name: CLARIBEL ALLISON Rep #: [id number] : 1955 69 From: Skyler Watkins MD PCP: Dr. Abdulaziz Ackerman MD Status:ADM IN Location: ICU [id number] HPI History of Present Illness Chief Complaint: Chest Pain Detail of Chief Complaint: Increasing dyspnea, dyspnea on exertion, orthopnea and chest discomfort Informant: patient Onset/Context/Timing Onset: - (Documented HPI narrative since onset is different depending on symptom.) Context: Gradual Onset Timing: Continuous Quality: Shortness of breath at rest presently Location: Cardiovascular Current Severity: Moderate Maximum Severity: Moderate Worsened by: Activity and lying flat Relieved by: Nothing Associated Symptoms Associated Symptoms: She has had chest discomfort. She was seen by her PCP yesterday and Lasix Narrative Narrative: Patient is a 69-year-old woman. She has history of atrial fibrillation, type 2 diabetes, thoracoabdominal aortic aneurysm, pulmonary embolus, atrial fibrillation and flutter, lower extremity exam, hypertension, hyperlipidemia, tobacco use who is on Coumadin. She states she is compliant with her medication. She reports she has been sleeping in a chair for the past 3 months. She has had increased shortness of breath with activity. She states she has to stop if she walks more than 20 steps. She believes her heart rate became fast within the last 12 to 24 hours. She does not recall when her last INR was obtained. She denies pleuritic chest pain. She does report midsternal discomfort. This is associated with activity as well as at rest. She denies black or maroon-colored stool. Denies blood in her urine. Denies bruising easily. Denies bleeding of her gums. She denies history of obstructive sleep apnea. She does have history of insomnia. She has not seen by local child specialist.She was seen earlier this month by her PCP. Assessment at that time was dyspnea on exertion, lower extremity exam a, diastolic heart failure and atrial flutter which is chronic. She was seen on the by nurse practitioner. Office note was reviewed. Diagnoses at that time was open wounds of both lower extremities with Serous drainage. Prior similar symptoms: Yes Recent Illness/Hospitalization : Yes (Office notes were reviewed for this month authored by Dr. Wright and nurse p) [facility] Medical History (Updated 08/21/24 @ 14:53 by Lou Marquez) Irregular heart beat Atrial fibrillation Former smoker Ulcer of right lower extremity Lower extremity edema Dyspnea on exertion Diastolic heart failure Acute lumbar myofascial strain Acute thoracic myofascial strain Back pain Debility, unspecified Return to work evaluation Right renal mass Angina of effort Acute hypokalemia Chest pain Non-ST elevation WA (NSTEMI) Atrial flutter Borderline type 2 diabetes mellitus GERD (gastroesophageal reflux disease) Acute low back pain Elevated random blood glucose level Anxiety and depression Menopausal disorder Melanoma Preoperative clearance Flu vaccine need 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 Obesity Elevated troponin (08/09/20) Hyperlipidemia Nicotine dependence History of pulmonary embolus (PE) (08/10/20) Essential hypertension Wound of left lower extremity Insomnia Change in skin mole Heart failure with preserved ejection fraction Shortness of breath Osteoarthritis of left knee Chronic pain of left knee Tobacco use Arthritis Acute hypoxemic respiratory failure (08/09/20) Home Medications ???Medication ???Instructions ???Recorded ???Last Taken ???Type atorvastatin 10 mg tablet (Lipitor) 10 mg PO DAILY #90 tabs 4 Unknown Rx baclofen 10 mg tablet 10 mg PO BID PRN muscle spasm #60 02/23/24 Unknown Rx tabs furosemide 40 mg tablet 40 mg PO QAM FLUID #90 tabs 08/21/24 Rx amlodipine 10 mg tablet 10 mg PO DAILY #90 tabs 07/25/24 U nknown Rx lisinopril 40 mg tablet 40 mg PO DAILY #90 tabs 07/25/24 U nknown Rx potassium chloride 20 mEq 20 meq PO DAILY SUPPLEMENT #30 tab s 07/25/24 Unknown Rx tablet,extended release warfarin 4 mg tablet 4 mg PO QDAY #60 tabs 07/25/24 Unk nown Rx cephalexin 500 mg capsule 500 mg PO Q8H #30 caps 07/31/24 Un known Rx Allergy/AdvReac Type Severity Reaction Status Date / Time latex Allergy Mild rash Verified 08/21/24 11:08 trazodone Allergy Mild Tingling Verified 08/21/24 11:08 coconut Allergy Unknown PT UNABLE Verified 08/21/24 11:09 TO RESPOND-NEEDS F/U Fish Containing Products Allergy Unknown PT UNABLE Verified 08/21/24 11:09 TO RESPOND-NEEDS F/U propoxyphene (From Allergy Hives Verified 08/21/24 11:08 Darvocet-N) acetaminophen (From A (more content not included)... Normal [facility] Eosinophil [facility]Ordered By[facility] Eosinophils/100 WBC (Bld) 1.0 % 0-5 [facility] Erythrocyte distribution wid th (RBC) [Ratio]Ordered By: Skyler Watkins on 08-21-2024 Erythrocyte distribution width (RBC) [Entitic vol] 49.1 fL High 35.1-43.9 [facility] Erythrocyte distribution wid th ratioOrdered By: Skyler Watkins on 08-21-2024 Erythrocyte distribution width (RBC) [Ratio] 19.6 % High 11.6-14.6 [facility] Estimation of creatinine jose aranceOrdered By: [facility] on 08-21-2024 Estimated Creatinine Clearance Calc 73.62 ml/min 50-250 [facility] GFR/1.73 sq M.predicted romelia g non-blacks MDRD (S/P/Bld) [Vol rate/Area]Ordered By: [facility] on 08-21-2024 Estimated GFR (MDRD) Non-Af Amer 73 >60 [facility] Comment on above: mL/min/1.73m2 CKD-EP I Creatinine Equation (2020) H AND P Exam - Hospitaliston 08-21-2024 H&P Exam - Hospitalist [facility] Medical Records Department [address] [place] [address] H P Exam - Hospitalist 08/21/24 1238 MR#: [id number] Acct: [id number] Name: CLARIBEL ALLISON Rep #: [id number] : 1955 69 From: Iglesia Benson MD PCP: Dr. Abdulaziz Ackerman MD Status:REG ER Location: ED HPI - General General Date of Admission: 08/21/24 Date of Service: 08/21/24 Chief Complaint: Shortness of breath progressively worsening for 3 months. Dyspnea at rest, orthopnea and weight gain HPI Narrative CLARIBEL ALLISON, is a 69 F with multiple comorbidities came to ED with extreme shortness of breath, dyspnea at rest, orthopnea, sleeping in the recliner for past 3 months along with lower extremity edema mild abdominal swelling. She stated she gained about 30 pounds in the last 3 months. She has wheezing and congestion but denies any chest pain pressure or tightness. She still smokes cigarettes sometimes although she had failed attempt of quitting in the past. On warfarin for A- fib. In ED, patient was found to have A-fib with RVR 139 beats minute. Chest x-ray individually reviewed and shows pulmonary congestion's, central involvement and cardiomegaly. 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 Obesity Elevated troponin (08/09/20) Hyperlipidemia Nicotine dependence History of pulmonary embolus (PE) (08/10/20) Essential hypertension Wound of left lower extremity Insomnia Change in skin mole Heart failure with preserved ejection fraction Shortness of breath Osteoarthritis of left knee Chronic pain of left knee Tobacco use Arthritis Acute hypoxemic respiratory failure (08/09/20) Home Medications ???Medication ???Instructions ???Recorded ???Last Taken ???Type atorvastatin 10 mg tablet (Lipitor) 10 mg PO DAILY #90 tabs 4 Unknown Rx baclofen 10 mg tablet 10 mg PO BID PRN muscle spasm #60 02/23/24 Unknown Rx tabs furosemide 40 mg tablet 40 mg PO QAM FLUID #90 tabs Unknown Rx amlodipine 10 mg tablet 10 mg PO DAILY #90 tabs 07/25/24 U nknown Rx lisinopril 40 mg tablet 40 mg PO DAILY #90 tabs 07/25/24 U nknown Rx potassium chloride 20 mEq 20 meq PO DAILY SUPPLEMENT #30 tab s 07/25/24 Unknown Rx tablet,extended release warfarin 4 mg tablet 4 mg PO QDAY #60 tabs 07/25/24 Unk nown Rx cephalexin 500 mg capsule 500 mg PO Q8H #30 caps 07/31/24 Un known Rx Allergy/AdvReac Type Severity Reaction Status Date / Time latex Allergy Mild rash Verified 08/21/24 11:08 trazodone Allergy Mild Tingling Verified 08/21/24 11:08 coconut Allergy Unknown PT UNABLE Verified 08/21/24 11:09 TO RESPOND-NEEDS F/U Fish Containing Products Allergy Unknown PT UNABLE Verified 08/21/24 11:09 TO RESPOND-NEEDS F/U propoxyphene (From Allergy Hives Verified 08/21/24 11:08 Darvocet-N) acetaminophen (From AdvReac Intermediate Nausea/Vom/ Verified 08/21/24 11:08 Darvocet-N) Diarrhea Family History Other Anxiety Arthritis Depression Hypertension Thyroid disorder Surgical History H/O tubal ligation History of cholecystectomy H/O elbow surgery Social History housing: house Smoking Status: Former smoker alcohol intake: never substance use type: does not use what type of physical activity do you participate in: walking frequency: 5-6 times per week ROS ROS Narrative Constitutional: Reports fatigue and weakness. No fever. HEENT: Reports systems reviewed and no addt'l complaints, except as documented Respiratory/Chest: As described in HPI. Extreme shortness of breath/orthopnea/dyspne a at rest. Cannot walk more than 10 feet without breathless/stopping CVS: Occasional chest congestion. Gastrointestinal: Denies coffee ground emesis, hematemesis or vomiting Genitourinary: Denies burning urination or new urinary tract symptoms Musculoskeletal: Denies acute joint pain or limited range of motion. No acute injury Neurologic: Denies seizure-like symptoms. skin: Tinea right leg superficial erosions from scratching (more content not included)... Normal [facility] Hematocrit Auto (Bld) [Volum e fraction]Ordered By: Skyler Watkins on 08-21-2024 Hematocrit (Bld) [Volume fraction] 34.9 % Low 37-47 [facility] Hemoglobin measurementOrdere d By: Skylerkaia Watkins on 08-21-2024 Hemoglobin (Bld) [Mass/Vol] 9.8 g/dL Low 12.0-15.0 [facility] Immature granulocytes/100 WB C Auto (Bld)Ordered By: Skyler Watkins on 08-21-2024 Immature granulocytes/100 WBC (Bld) 0.400 % 0.0-0.9 [facility] Comment on above: IG% - Immature Granu locytes (promyelocytes, myelocytes and metamyelocytes) > 1% indicates that a LEFT SHIFT is Present. International normalized rat io (INR) calculationOrdered By: Skylerkaia Watkins on 08-21-2024 INR Coag (Bld) [Relative time] 1.8 {INR} [facility] L499.0042on 08-21-2024 Trop T High Sen 44 ng/L High <=14 [facility] Comment on above: Performed By: #### L 300.3900, L100.0100, L500.4050 #### [facility] [address] [place], [address] L499.0043on 08-21-2024 Trop T High Sen 45 ng/L High <=14 [facility] Comment on above: Performed By: #### L 300.3900, L100.0100, L500.4050 #### [facility] [address] [place], [address] L501.4021on 08-21-2024 Trop T High Sen 36 ng/L High <=14 [facility] Comment on above: Performed By: #### L 300.3900 #### [facility] [address] [place], [address] L503.7505on 08-21-2024 Natriuretic peptide B (Bld) [Mass/Vol] 3787 pg/mL High <=900 [facility] Comment on above: Result Comment: Hear t Failure Unlikely: < 300 pg/mL Heart Failure Likely < 50 Years: > 450 pg/mL 50-75 Years: > 900 pg/mL >75 Years: > 1800 pg/mL Performed By: #### L 300.3900 #### [facility] [address] [place], [address] Laboratory - Chemistry and C hemistry - challengeOrdered By: Skylerkaia Watkins on 08-21-2024 AST [Catalytic activity/Vol] 38 U/L High <32 [facility] Natriuretic peptide B (Bld) [Mass/Vol] 3787 pg/mL High <900 [facility] Comment on above: Heart Failure Unlike ly: < 300 pg/mLHeart Failure Likely< 50 Years: > 450 pg/mL50-75 Years: > 900 pg/mL>75 Years: > 1800 pg/mL Lymphocytes Auto (Unsp spec) [#/Vol]Ordered By: Skylerkaia Watkins on 08-21-2024 Lymphocytes (Bld) [#/Vol] 1.20 10*3/uL 0.83-4.51 [facility] Lymphocytes/100 WBC Auto (Un sp spec)Ordered By: Skylerkaia Watkins on 08-21-2024 Lymphocytes/100 WBC (Bld) 15.3 % Low 19-41 [facility] MCV (mean corpuscular volume ) determinationOrdered By: Skylerkaia Watkins on 08-21-2024 MCV (RBC) [Entitic vol] 72.0 fL Low 81-99 [facility] Magnesiumon 08-21-2024 Magnesium [Mass/Vol] 1.8 mg/dL Normal 1.5-2.2 [facility] Comment on above: Performed By: #### L 300.3900 #### [facility] [address] [place], [address] Magnesium (Unsp spec) [Mass/ Vol]Ordered By: Iglesia Benson on 08-21-2024 Magnesium [Mass/Vol] 1.8 mg/dL 1.5-2.2 [facility] Mean corpuscular hemoglobin (MCH) determinationOrdered By: Skyler Watkins on 08-21-2024 MCH (RBC) [Entitic mass] 20.2 pg Low 27.0-32.0 [facility] Mean corpuscular hemoglobin concentration (MCHC) determinationOrdered By: Skylerkaia Watkins on 08-21-2024 MCHC (RBC) [Mass/Vol] 28.1 g/dL Low 32-36 [facility] Mean platelet volume determi nationOrdered By: Skylerkaia Watkins on 08-21-2024 Platelet mean volume (Bld) [Entitic vol] 9.2 fL 6.2-12.0 [facility] Monocyte percentageOrdered B y: Skylerkaia Watkins on 08-21-2024 Monocytes/100 WBC (Bld) 5.2 % 0-10 [facility] Neutrophil percentageOrdered By: [facility] on 08-21-2024 Neutrophils/100 WBC (Bld) 77.3 % High 47-70 [facility] No Panel InformationOrdered By: Skylerkaia Watkins on 08-21-2024 Troponin T High Sensitivity 36 ng/L High <14 [facility] Nucleated red blood cell per centageOrdered By: Skylerkaia Watkins on 08-21-2024 Nucleated RBC/100 WBC (Bld) [Ratio] 0 % 0-5 [facility] Phosphoruson 08-21-2024 Phosphate [Mass/Vol] 2.9 mg/dL Normal 2.7-4.5 [facility] Comment on above: Performed By: #### L 300.3900, L100.0100, L500.4050 #### [facility] [address] [place], [address] Platelet countOrdered By: Marc Watkins on 08-21-2024 Platelets (Bld) [#/Vol] 189 10*3/uL 150-450 [facility] Potassium (Unsp spec) [Mass/ Vol]Ordered By: Skylerkaia Watkins on 08-21-2024 Potassium [Moles/Vol] 3.9 mmol/L 3.3-5.1 [facility] Prothrombin Time w/INRon INR Coag (PPP) [Relative time] 1.8 {INR} Normal [facility] Comment on above: Order Comment: REDRA W. PREVIOUS SPECIMEN REJECTED DUE TOSPECIMEN BEING QNS. 08/21/24 1155 Eladio Cavazos Performed By: #### L 300.3900 #### [facility] [address] [place], [address] PT Coag (PPP) [Time] 21.0 s High 11.7-14.9 [facility] Comment on above: Order Comment: REDRA W. PREVIOUS SPECIMEN REJECTED DUE TOSPECIMEN BEING QNS. 08/21/24 1155 Eladio Cavazos Performed By: #### L 300.3900 #### [facility] [address] [place], [address] INR Normal [facility] Comment on above: Result Comment: @DUP LICATE ORDER Performed By: #### L 300.3900 #### [facility] [address] [place], [address] PROTIME Normal 11.7-14.9 [facility] Comment on above: Result Comment: @DUP LICATE ORDER Performed By: #### L 300.3900 #### [facility] [address] [place], [address] INR Normal [facility] Comment on above: Result Comment: Tay sloan via OM: Ordered Performed By: #### L 300.3900 #### [facility] [address] [place], [address] PROTIME Normal 11.7-14.9 [facility] Comment on above: Result Comment: Tay sloan via OM: Ordered Performed By: #### L 300.3900 #### [facility] [address] [place], [address] INR Normal [facility] Comment on above: Result Comment: This specimen has been REJECTED due to Laboratory criteria: Quanity Not Sufficient. ED STAFF has been notified of need of recollection. 08/21/24 1154 Eladio Manzano Stoner Performed By: #### L 300.3900 #### [facility] [address] [place], [place], [address] PROTIME Normal 11.7-14.9 [facility] Comment on above: Result Comment: This specimen has been REJECTED due to Laboratory criteria: Quanity Not Sufficient. ED STAFF has been notified of need of recollection. 08/21/24 1154 Eladio Manzano Stoner Performed By: #### L 300.3900 #### [facility] [address] [place], [address] Prothrombin timeOrdered By: Skyler Watkins on 08-21-2024 PT Coag (PPP) [Time] 21.0 s High 11.7-14.9 [facility] RBC Auto (Bld) [#/Vol]Ordere d By: Skyler Watkins on 08-21-2024 RBC (Bld) [#/Vol] 4.85 10*6/uL 4.2-5.4 [facility] Serum creatinine measurement (mass/volume)Ordered By: Skyler Watkins on 08-21-2024 Creatinine [Mass/Vol] 0.87 mg/dL 0.70-1.20 [facility] Serum globulin measurementOr dered By: Skylerkaia Watkins on 08-21-2024 Globulin (S) [Mass/Vol] 2.9 g/dL 2.2-4.2 [facility] Serum glucose measurement (m ass/volume)Ordered By: Skylerkaia Watkins on 08-21-2024 Glucose [Mass/Vol] 166 mg/dL High 70-99 [facility] Serum or plasma alanine kebede otransferase (ALT) measurementOrdered By: Skylerkaia Watkins on 08-21-2024 ALT [Catalytic activity/Vol] 27 U/L <35 [facility] Serum or plasma albumin lakshmi urement (mass/volume)Ordered By: Skylerkaia Watkins on 08-21-2024 Albumin [Mass/Vol] 3.6 g/dL 3.4-4.8 [facility] Serum or plasma albumin/glob ulin mass ratioOrdered By: Skyler Watkins on 08-21-2024 Albumin/Globulin [Mass ratio] 1.2 {ratio} 0.9-2.4 [facility] Serum or plasma alkaline david sphatase measurementOrdered By: Skyler Watkins on 08-21-2024 ALP [Catalytic activity/Vol] 84 U/L 35-104 [facility] Serum or plasma calcium lakshmi urement (mass/volume)Ordered By: Skyler Watkins on 08-21-2024 Calcium [Mass/Vol] 8.6 mg/dL 7.6-11.0 [facility] Serum or plasma urea nitroge n measurement (mass/volume)Ordered By: Skyler Watkins on 08-21-2024 Urea nitrogen [Mass/Vol] 19 mg/dL 4-19 [facility] Serum phosphorus measurement Ordered By: Iglesia Benson on 08-21-2024 Phosphorus Level 2.9 mg/dL 2.7-4.5 [facility] Sodium levelOrdered By: Skyler Watkins on 08-21-2024 Sodium [Moles/Vol] 139 mmol/L 133-145 [facility] Total proteinOrdered By: Skyler Watkins on 08-21-2024 Protein [Mass/Vol] 6.5 g/dL 5.9-8.4 [facility] Troponin T.cardiac High sens itivity method [Mass/Vol]Ordered By: Skyler Watkins on 08-21-2024 Troponin T High Sensitivity 4 Hour 45 ng/L High <14 [facility] Troponin T High Sensitivity 2 Hour 44 ng/L High <14 [facility] Troponin T.cardiac [Mass/vol ume] in Serum or Plasma by High sensitivity methodOrdered By: Skyler Watkins on 08-21-2024 Troponin T.cardiac High sensitivity method [Mass/Vol] 45 ng/L High <14 [facility] Troponin T.cardiac High sensitivity method [Mass/Vol] 44 ng/L High <14 [facility] White blood cell (WBC) count Ordered By: Skyler Watkins on 08-21-2024 WBC (Bld) [#/Vol] 7.9 10*3/uL 4.4-11.0 [facility] International normalized rat io (INR) calculationOrdered By: Abdulaziz Ackerman on 08-15-2024 INR Coag (Bld) [Relative time] 1.6 {INR} [facility] Prothrombin Time w/INRon INR Coag (PPP) [Relative time] 1.6 {INR} Normal [facility] Comment on above: Performed By: #### L 300.3900, L100.0100, L500.4050 #### [facility] [address] [place], [address] PT Coag (PPP) [Time] 19.2 s High 11.7-14.9 [facility] Comment on above: Performed By: #### L 300.3900, L100.0100, L500.4050 #### [facility] [address] [place], [address] Prothrombin timeOrdered By: Abdulaziz Ackerman on 08-15-2024 PT Coag (PPP) [Time] 19.2 s High 11.7-14.9 [facility] Anion gap in Serum or Plasma Ordered By: Eladio Pandey on 07-31-2024 Anion gap [Moles/Vol] 14 mmol/L 5-15 [facility] BUN/creatinine ratioOrdered By: Eladio Pandey on 07-31-2024 Urea nitrogen/Creatinine [Mass ratio] 12.6 mg/mg 10-20 [facility] Bilirubin, totalOrdered By: Eladio Pandey on 07-31-2024 Bilirubin [Mass/Vol] 0.50 mg/dL 0.00-1.30 [facility] Carbon dioxide, total [Moles /volume] in Central venous bloodOrdered By: Eladio Pandey on 07-31-2024 CO2 [Moles/Vol] 26.1 mmol/L 21.0-32.0 [facility] Chloride assayOrdered By: Fabienne Pandey on 07-31-2024 Chloride [Moles/Vol] 100 mmol/L 98-108 [facility] Comprehensive Metabolic Prof ilon 03-12-2025 Albumin [Mass/Vol] 3.5 g/dL Normal 3.4-4.8 [facility] Comment on above: Performed By: #### L 300.3900, L100.0100, L500.4050 #### [facility] [address] [place], [address] Albumin/Globulin [Mass ratio] 1.0 {ratio} Normal 0.9-2.4 [facility] Comment on above: Performed By: #### L 300.3900, L100.0100, L500.4050 #### [facility] [address] [place], [address] ALK PHOS 86 U/L Normal 35-104 [facility] Comment on above: Performed By: #### L 300.3900, L100.0100, L500.4050 #### [facility] [address] [place], [address] ALT [Catalytic activity/Vol] 21 U/L Normal <=34 [facility] Comment on above: Performed By: #### L 300.3900, L100.0100, L500.4050 #### [facility] [address] [place], [address] AST [Catalytic activity/Vol] 29 U/L Normal <=31 [facility] Comment on above: Performed By: #### L 300.3900, L100.0100, L500.4050 #### [facility] [address] [place], [address] Bilirubin [Mass/Vol] 0.50 mg/dL Normal 0.00-1.30 [facility] Comment on above: Performed By: #### L 300.3900, L100.0100, L500.4050 #### [facility] [address] [place], [address] BUN/CRE 12.6 RATIO Normal 10-20 [facility] Comment on above: Performed By: #### L 300.3900, L100.0100, L500.4050 #### [facility] [address] [place], [address] Calcium [Mass/Vol] 8.6 mg/dL Normal 7.6-11.0 [facility] Comment on above: Performed By: #### L 300.3900, L100.0100, L500.4050 #### [facility] [address] [place], [address] Chloride [Moles/Vol] 100 mmol/L Normal 98-108 [facility] Comment on above: Performed By: #### L 300.3900, L100.0100, L500.4050 #### [facility] [address] [place], [address] CO2 [Moles/Vol] 26.1 mmol/L Normal 21.0-32.0 [facility] Comment on above: Performed By: #### L 300.3900, L100.0100, L500.4050 #### [facility] [address] [place] [place], [address] Creatinine [Mass/Vol] 0.91 mg/dL Normal 0.70-1.20 [facility] Comment on above: Performed By: #### L 300.3900, L100.0100, L500.4050 #### [facility] [address] [place], [address] GAP 14 Normal 5-15 [facility] Comment on above: Performed By: #### L 300.3900, L100.0100, L500.4050 #### [facility] [address] [place], [address] GFR/1.73 sq M.predicted among non-blacks MDRD (S/P/Bld) [Vol rate/Area] 69 mL/min/{1.73_m2} Normal >60 [facility] Comment on above: Result Comment: mL/m in/1.73m2 CKD-EPI Creatinine Equation (2020) Performed By: #### L 300.3900, L100.0100, L500.4050 #### [facility] [address] [place], [address] Globulin (S) [Mass/Vol] 3.3 g/dL Normal 2.2-4.2 [facility] Comment on above: Performed By: #### L 300.3900, L100.0100, L500.4050 #### [facility] [address] [place], [address] Glucose [Mass/Vol] 163 mg/dL High 70-99 [facility] Comment on above: Performed By: #### L 300.3900, L100.0100, L500.4050 #### [facility] [address] [place], [address] Potassium [Moles/Vol] 2.8 mmol/L Low 3.3-5.1 [facility] Comment on above: Performed By: #### L 300.3900, L100.0100, L500.4050 #### [facility] [address] [place] [place], [address] Sodium [Moles/Vol] 140 mmol/L Normal 133-145 [facility] Comment on above: Performed By: #### L 300.3900, L100.0100, L500.4050 #### [facility] [address] [place], [address] T PROT 6.8 g/dL Normal 5.9-8.4 [facility] Comment on above: Performed By: #### L 300.3900, L100.0100, L500.4050 #### [facility] [address] [place] [place], [address] Urea nitrogen [Mass/Vol] 11 mg/dL Normal 4-19 [facility] Comment on above: Performed By: #### L 300.3330, L100.0100, L500.4050 #### [facility] [address] [place], [address] GFR/1.73 sq M.predicted romelia g non-blacks MDRD (S/P/Bld) [Vol rate/Area]Ordered By: Eladio Pandey on 07-31-2024 Estimated GFR (MDRD) Non-Af Amer 69 >60 [facility] Comment on above: mL/min/1.73m2 CKD-EP I Creatinine Equation (2020) Glomerular filtration rate ( GFR) estimation/1.73 sq m using serum, plasma, or whole bOrdered By: Eladio Pandey on 07-31-2024 GFR/1.73 sq M.predicted among non-blacks MDRD (S/P/Bld) [Vol rate/Area] 69 mL/min/{1.73_m2} >60 [facility] Comment on above: mL/min/1.73m2 CKD-EP I Creatinine Equation (2020) Internal Medicine Office Vis iton 07-31-2024 Internal Medicine Office Visit [facility] [address] [place] [address] OFFICE VISIT Date of Service: 07/31/24 MR#: [id number] Acct: [id number] Name: CLARIBEL ALLISON Rep #: [id number] : 1955 Provider: ZACK Pitts Age/Sex: 69/F Location: [facility] Status: Signed Intake Vital Signs 07/24/24 14:18 07/31/24 09:26 Height 5 ft 5 in 5 ft 5 in Weight: 213 lb 200 lb 6 oz BMI 35.4 33.3 BP 130/72 H 122/76 H Blood Pressure Location Lt brachial Lt brachial Position Sitting Sitting Respiration 19 H 20 H Pulse 63 92 Pulse Source Monitor Auscultation Temp 98.2 F 97.9 F Temp Source Temporal Temporal Pulse Oximetry (%) 93 92 Oxygen Delivery Method room air room air Intake Visit Reasons: ACUTE 1 WEEK FOLLOW UP-PER DR ACKERMAN Chief Complaint: SWOLLEN LEGS, SEEPING WATER AND BLISTERS 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 Required: No Accompanied by: Self Is patient in pain?: Yes Pain scale (1-10): 10 Allergies latex Allergy (Mild, Verified 07/31/24 09:25) rash trazodone Allergy (Mild, Verified 07/31/24 09:25) Tingling propoxyphene (From Darvocet-N) Allergy (Verified 07/31/24 09:25) Hives acetaminophen (From Darvocet-N) Adverse Reaction (Intermediate, Verified 07/31/24 09:25) Nausea/Vom/Diarrhea Medications ???Medication ???Instructions ???Recorded ???Confirmed ???Type atorvastatin 10 mg tablet (Lipitor) 10 mg PO DAILY #90 tabs 4 07/31/24 Rx omeprazole 40 mg capsule,delayed 40 mg PO DAILY #90 caps 09/20/23 0 07/31/24 Rx release baclofen 10 mg tablet 10 mg PO BID PRN muscle spasm #60 02/23/24 07/31/24 Rx tabs furosemide 40 mg tablet 40 mg PO QAM FLUID #90 tabs 07/31/24 Rx amlodipine 10 mg tablet 10 mg PO DAILY #90 tabs 07/25/24 0 07/31/24 Rx lisinopril 40 mg tablet 40 mg PO DAILY #90 tabs 07/25/24 0 07/31/24 Rx potassium chloride 20 mEq 20 meq PO DAILY SUPPLEMENT #30 tab s 07/25/24 07/31/24 Rx tablet,extended release warfarin 4 mg tablet 4 mg PO QDAY #60 tabs 07/25/2405/15 Rx cephalexin 500 mg capsule 500 mg PO Q8H #30 caps 07/31/24 Rx Have you fallen in the past year?: No Nurse's Note: meghann lower leg pain seeping and open in areas [facility] Medical History Ulcer of right lower extremity Lower extremity edema Dyspnea on exertion Diastolic heart failure Acute lumbar myofascial strain Acute thoracic myofascial strain Back pain Debility, unspecified Return to work evaluation Right renal mass Angina of effort Acute hypokalemia Chest pain Non-ST elevation WA (NSTEMI) Atrial flutter Borderline type 2 diabetes mellitus GERD (gastroesophageal reflux disease) Acute low back pain Elevated random blood glucose level Anxiety and depression Menopausal disorder Melanoma Preoperative clearance Flu vaccine need Current use of chcf 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 Obesity Elevated troponin (08/09/20) Hyperlipidemia Nicotine dependence History of pulmonary embolus (PE) (08/10/20) Essential hypertension Wound of left lower extremity Insomnia Change in skin mole Heart failure with preserved ejection fraction Shortness of breath Osteoarthritis of left knee Chronic pain of left knee Tobacco use Arthritis Acute hypoxemic respiratory failure (08/09/20) Surgical History H/O tubal ligation History of cholecystectomy H/O elbow surgery Family History Other Anxiety Arthritis Depression Hypertension Thyroid disorder Social History housing: house Smoking Status: Current every day smoker tobacco type: cigarettes alcohol intake: never substance use type: does not use what type of physical activity do you participate in: walking frequency: 5-6 times per week HPI HPI Chief Complaint: SWOLLEN LEGS, SEEPING WATER AND BLISTERS Details: CLARIBEL ALLISON, is a 69 F who presents to the office today for f/u of wounds on her legs. She has been soaking in epsom salt (using warm wash rag). She then uses a triple antibiotic ointment on them. she has not been putting a gauze pad and then wrapping with a gauze wrap. She has not smoked for 10 weeks She was taking the Lasix when she remembered. She states that she takes the morning tab but sometimes was forgetting the night time dose. She is currently taking it once daily. Patient states that when she was taking it twice daily that she was urinating a very often she states she count of 19 times in one day. She has quite a once daily (sometimes forgetting to take it) she is not urinating nearly as often. She has not been elevating her legs and has not worn any type of compressive dressing. She states she tried a compression sock onc (more content not included)... Normal [facility] - Chemistry and C hemistry - challengeOrdered By: Eladio Pandey on 07-31-2024 AST [Catalytic activity/Vol] 29 U/L <32 [facility] Potassium (Unsp spec) [Mass/ Vol]Ordered By: Eladio Pandey on 07-31-2024 Potassium [Moles/Vol] 2.8 mmol/L Low 3.3-5.1 [facility] Potassium measurement (mass/ volume)Ordered By: Eladio Pandey on 07-31-2024 Potassium (Unsp spec) [Mass/Vol] 2.8 mmol/L Low 3.3-5.1 [facility] Prothrombin Time w/INRon INR Coag (PPP) [Relative time] 1.9 {INR} Normal [facility] Comment on above: Performed By: #### L 300.3900, L100.0100, L500.4050 #### [facility] [address] [place], [address] PT Coag (PPP) [Time] 22.6 s High 11.7-14.9 [facility] Comment on above: Performed By: #### L 300.3900, L100.0100, L500.4050 #### [facility] [address] [place], [address] Serum creatinine measurement (mass/volume)Ordered By: Eladio Pandey on 07-31-2024 Creatinine [Mass/Vol] 0.91 mg/dL 0.70-1.20 [facility] Serum globulin measurementOr dered By: Eladio Pandey on 07-31-2024 Globulin (S) [Mass/Vol] 3.3 g/dL 2.2-4.2 [facility] Serum glucose measurement (m ass/volume)Ordered By: Eladio Pandey on 07-31-2024 Glucose [Mass/Vol] 163 mg/dL High 70-99 [facility] Serum or plasma alanine kebede otransferase (ALT) measurementOrdered By: Eladio Pandey on 07-31-2024 ALT [Catalytic activity/Vol] 21 U/L <35 [facility] Serum or plasma albumin lakshmi urement (mass/volume)Ordered By: Eladio Pandey on 07-31-2024 Albumin [Mass/Vol] 3.5 g/dL 3.4-4.8 [facility] Serum or plasma albumin/glob ulin mass ratioOrdered By: Eladio Pandey on 07-31-2024 Albumin/Globulin [Mass ratio] 1.0 {ratio} 0.9-2.4 [facility] Serum or plasma alkaline david sphatase measurementOrdered By: Eladio Pandey on 07-31-2024 ALP [Catalytic activity/Vol] 86 U/L 35-104 [facility] Serum or plasma calcium lakshmi urement (mass/volume)Ordered By: Eladio Pandey on 07-31-2024 Calcium [Mass/Vol] 8.6 mg/dL 7.6-11.0 [facility] Serum or plasma urea nitroge n measurement (mass/volume)Ordered By: Eladio Pandey on 07-31-2024 Urea nitrogen [Mass/Vol] 11 mg/dL 4-19 [facility] Sodium levelOrdered By: Boom Pandey on 07-31-2024 Sodium [Moles/Vol] 140 mmol/L 133-145 [facility] Total proteinOrdered By: Adriel Pandey on 07-31-2024 Protein [Mass/Vol] 6.8 g/dL 5.9-8.4 [facility] Absolute lymphocyte countOrd ered By: Abdulaziz Ackerman on 07-24-2024 Lymphocytes Auto (Unsp spec) [#/Vol] 1.41 10*3/uL 0.83-4.51 [facility] Absolute neutrophil countOrd ered By: Abdulaziz Ackerman on 07-24-2024 Neutrophils (Bld) [#/Vol] 5.1 10*3/uL 2.0-7.7 [facility] Automated lymphocyte count a s percentage of total leukocytesOrdered By: Abdulaziz Ackerman on 07-24-2024 Lymphocytes/100 WBC Auto (Unsp spec) 18.9 % Low 19-41 [facility] Basophil percentageOrdered B y: Abdulaziz Ackerman on 07-24-2024 Basophils/100 WBC (Bld) 0.9 % 0-1 [facility] CBC W/Diff, Automatedon Absolute Lymph 1.41 X10 3/uL Normal 0.83-4.51 [facility] Comment on above: Performed By: #### L 300.3900 #### [facility] [address] [place], [address] Absolute Neut 5.1 X10 3/uL Normal 2.0-7.7 [facility] Comment on above: Performed By: #### L 300.3900 #### [facility] [address] [place], [address] Basophils/100 WBC (Bld) 0.9 % Normal 0-1 [facility] Comment on above: Performed By: #### L 300.3900 #### [facility] [address] [place], [address] Eosinophils/100 WBC (Bld) 1.9 % Normal 0-5 [facility] Comment on above: Performed By: #### L 300.3900 #### [facility] [address] [place], [address] Erythrocyte distribution width (RBC) [Ratio] 18.7 % High 11.6-14.6 [facility] Comment on above: Performed By: #### L 300.3900 #### [facility] [address] [place], [address] Hematocrit (Bld) [Volume fraction] 35.3 % Low 37-47 [facility] Comment on above: Performed By: #### L 300.3900 #### [facility] [address] [place], [address] Hemoglobin (Bld) [Mass/Vol] 10.1 g/dL Low 12.0-15.0 [facility] Comment on above: Performed By: #### L 300.3900 #### [facility] [address] [place], [address] IG% 0.400 Normal 0.0-0.9 [facility] Comment on above: Result Comment: IG% - Immature Granulocytes (promyelocytes, myelocytes and metamyelocytes) > 1% indicates that a LEFT SHIFT is Present. Performed By: #### L 300.3900 #### [facility] [address] [place], [address] Lymphocytes/100 WBC (Bld) 18.9 % Low 19-41 [facility] Comment on above: Performed By: #### L 300.3900 #### [facility] [address] [place], [address] MCH (RBC) [Entitic mass] 22.1 pg Low 27.0-32.0 [facility] Comment on above: Performed By: #### L 300.3900 #### [facility] [address] [place], [address] MCHC (RBC) [Mass/Vol] 28.6 g/dL Low 32-36 [facility] Comment on above: Performed By: #### L 300.3900 #### [facility] [address] [place], [address] MCV (RBC) [Entitic vol] 77.2 fL Low 81-99 [facility] Comment on above: Performed By: #### L 300.3900 #### [facility] [address] [place], [address] Monocytes/100 WBC (Bld) 9.2 % Normal 0-10 [facility] Comment on above: Performed By: #### L 300.3900 #### [facility] [address] [place], [address] Neutrophils/100 WBC (Bld) 68.7 % Normal 47-70 [facility] Comment on above: Performed By: #### L 300.3900 #### [facility] [address] [place], [address] Nucleated RBC (Bld) [#/Vol] 0 10*3/uL Normal 0-5 [facility] Comment on above: Performed By: #### L 300.3900 #### [facility] [address] [place], [address] Platelet mean volume (Bld) [Entitic vol] 10.1 fL Normal 6.2-12.0 [facility] Comment on above: Performed By: #### L 300.3900 #### [facility] [address] [place], [address] Platelets (Bld) [#/Vol] 237 10*3/uL Normal 150-450 [facility] Comment on above: Performed By: #### L 300.3900 #### [facility] [address] [place], [address] RBC (Bld) [#/Vol] 4.57 10*6/uL Normal 4.2-5.4 [facility] Comment on above: Performed By: #### L 300.3900 #### [facility] [address] [place] [place], [address] RDW SD 51.2 fl High 35.1-43.9 [facility] Comment on above: Performed By: #### L 300.3900 #### [facility] [address] [place], [address] WBC (Bld) [#/Vol] 7.5 10*3/uL Normal 4.4-11.0 [facility] Comment on above: Performed By: #### L 300.3900 #### [facility] [address] [place], [address] Comprehensive Metabolic Prof [facility] 07-24-2024 Albumin [Mass/Vol] 3.5 g/dL Normal 3.4-4.8 [facility] Comment on above: Order Comment: stand ing order. Performed By: #### L 300.3900 #### [facility] [address] [place], [address] Albumin/Globulin [Mass ratio] 1.3 {ratio} Normal 0.9-2.4 [facility] Comment on above: Order Comment: stand ing order. Performed By: #### L 300.3900 #### [facility] [address] [place], [address] ALK PHOS 80 U/L Normal 35-104 [facility] Comment on above: Order Comment: stand ing order. Performed By: #### L 300.3900 #### [facility] [address] [place], [address] ALT [Catalytic activity/Vol] 20 U/L Normal <=34 [facility] Comment on above: Order Comment: stand ing order. Performed By: #### L 300.3900 #### [facility] [address] [place], [address] AST [Catalytic activity/Vol] 21 U/L Normal <=31 [facility] Comment on above: Order Comment: stand ing order. Performed By: #### L 300.3900 #### [facility] [address] [place], [address] Bilirubin [Mass/Vol] 0.67 mg/dL Normal 0.00-1.30 [facility] Comment on above: Order Comment: stand ing order. Performed By: #### L 300.3900 #### [facility] [address] [place], [address] BUN/CRE 16.1 RATIO Normal 10-20 [facility] Comment on above: Order Comment: stand ing order. Performed By: #### L 300.3900 #### [facility] [address] [place], [address] Calcium [Mass/Vol] 8.7 mg/dL Normal 7.6-11.0 [facility] Comment on above: Order Comment: stand ing order. Performed By: #### L 300.3900 #### [facility] [address] [place], [address] Chloride [Moles/Vol] 104 mmol/L Normal 98-108 [facility] Comment on above: Order Comment: stand ing order. Performed By: #### L 300.3900 #### [facility] [address] [place], [address] CO2 [Moles/Vol] 24.5 mmol/L Normal 21.0-32.0 [facility] Comment on above: Order Comment: stand ing order. Performed By: #### L 300.3900 #### [facility] [address] [place], [address] Creatinine [Mass/Vol] 0.77 mg/dL Normal 0.70-1.20 [facility] Comment on above: Order Comment: stand ing order. Performed By: #### L 300.3900 #### [facility] [address] [place], [address] GAP 11 Normal 5-15 [facility] Comment on above: Order Comment: stand ing order. Performed By: #### L 300.3900 #### [facility] [address] [place], [address] GFR/1.73 sq M.predicted among non-blacks MDRD (S/P/Bld) [Vol rate/Area] 85 mL/min/{1.73_m2} Normal >60 [facility] Comment on above: Order Comment: stand ing order. Result Comment: mL/m in/1.73m2 CKD-EPI Creatinine Equation (2020) Performed By: #### L 300.3900 #### [facility] [address] [place], [address] Globulin (S) [Mass/Vol] 2.8 g/dL Normal 2.2-4.2 [facility] Comment on above: Order Comment: stand ing order. Performed By: #### L 300.3900 #### [facility] [address] [place], [address] Glucose [Mass/Vol] 85 mg/dL Normal 70-99 [facility] Comment on above: Order Comment: stand ing order. Performed By: #### L 300.3900 #### [facility] [address] [place], [address] Potassium [Moles/Vol] 3.3 mmol/L Normal 3.3-5.1 [facility] Comment on above: Order Comment: stand ing order. Performed By: #### L 300.3900 #### [facility] [address] [place], [address] Sodium [Moles/Vol] 140 mmol/L Normal 133-145 [facility] Comment on above: Order Comment: stand ing order. Performed By: #### L 300.3900 #### [facility] [address] [place], [address] T PROT 6.2 g/dL Normal 5.9-8.4 [facility] Comment on above: Order Comment: stand ing order. Performed By: #### L 300.3900 #### [facility] [address] [place], [address] Urea nitrogen [Mass/Vol] 12 mg/dL Normal 4-19 [facility] Comment on above: Order Comment: stand ing order. Performed By: #### L 300.3900 #### [facility] [address] [place], [address] Eosinophil percentageOrdered By: Abdulaziz Ackerman on 07-24-2024 Eosinophils/100 WBC (Bld) 1.9 % 0-5 [facility] Erythrocyte distribution wid th ratioOrdered By: Abdulaziz Ackerman on 07-24-2024 Erythrocyte distribution width (RBC) [Ratio] 18.7 % High 11.6-14.6 [facility] Erythrocyte distribution wid th standard deviationOrdered By: Abdulaziz Ackerman on 07-24-2024 Erythrocyte distribution width (RBC) [Entitic vol] 51.2 fL High 35.1-43.9 [facility] Erythrocyte distribution width (RBC) [Ratio] 51.2 fl High 35.1-43.9 [facility] Hematocrit Auto (Bld) [Volum e fraction]Ordered By: Abdulaziz Ackerman on 07-24-2024 Hematocrit (Bld) [Volume fraction] 35.3 % Low 37-47 [facility] Hemoglobin A1con 07-24-2024 HbA1c (Bld) [Mass fraction] 6.1 % Normal <=5.6 [facility] Comment on above: Performed By: #### L 300.3900, L100.0100, L500.4050 #### [facility] [address] [place], [address] Hemoglobin A1c percentageOrd ered By: Abdulaziz Ackerman on 07-24-2024 HbA1c (Bld) [Mass fraction] 6.1 % >5.7 [facility] Hemoglobin measurementOrdere d By: Abdulaziz Ackerman on 07-24-2024 Hemoglobin (Bld) [Mass/Vol] 10.1 g/dL Low 12.0-15.0 [facility] Immature granulocytes/100 WB C Auto (Bld)Ordered By: Abdulaziz Ackerman on 07-24-2024 Immature granulocytes/100 WBC (Bld) 0.400 % 0.0-0.9 [facility] Comment on above: IG% - Immature Granu locytes (promyelocytes, myelocytes and metamyelocytes) > 1% indicates that a LEFT SHIFT is Present. Internal Medicine Office Vis iton 07-24-2024 Internal Medicine Office Visit [facility] [address] [place], [place] [address] OFFICE VISIT Date of Service: 07/24/24 MR#: [id number] Acct: [id number] Name: CLARIBEL ALLISON Rep #: [id number] : 1955 Provider: Dr. Abdulaziz carlson MD Age/Sex: 69/F Location: [facility] Status: Signed Intake Vital Signs 02/23/24 08:03 07/24/24 14:18 Height 5 ft 5 in 5 ft 5 in Weight: 213 lb BMI 35.4 BP 130/72 H Blood Pressure Location Lt brachial Position Sitting Respiration 19 H Pulse 63 Pulse Source Monitor Temp 98.2 F Temp Source Temporal Pulse Oximetry (%) 93 Oxygen Delivery Method room air Intake Visit Reasons: SWOLLEN LEGS, SEEPING WATER AND BLISTERS Chief Complaint: SWOLLEN LEGS, SEEPING WATER AND BLISTERS Is patient in pain?: Yes (BLE) Pain scale (1-10): 5 Allergies latex Allergy (Mild, Verified 07/24/24 14:14) rash trazodone Allergy (Mild, Verified 07/24/24 14:14) Tingling propoxyphene (From Darvocet-N) Allergy (Verified 07/24/24 14:14) Hives acetaminophen (From Darvocet-N) Adverse Reaction (Intermediate, Verified 07/24/24 14:14) Nausea/Vom/Diarrhea Medications ???Medication ???Instructions ???Recorded ???Confirmed ???Type amlodipine 10 mg tablet 10 mg PO DAILY #90 tabs 09/20/23 0 07/24/24 Rx atorvastatin 10 mg tablet (Lipitor) 10 mg PO DAILY #90 tabs 4 07/24/24 Rx lisinopril 40 mg tablet 40 mg PO DAILY #90 tabs 09/20/23 0 07/24/24 Rx omeprazole 40 mg capsule,delayed 40 mg PO DAILY #90 caps 09/20/23 0 07/24/24 Rx release potassium chloride 20 mEq 20 meq PO DAILY SUPPLEMENT #30 tab s 09/20/23 07/24/24 Rx tablet,extended release baclofen 10 mg tablet 10 mg PO BID PRN muscle spasm #60 02/23/24 07/24/24 Rx tabs warfarin 4 mg tablet 4 mg PO QDAY #30 tabs 03/26/2410/13 Rx furosemide 40 mg tablet 40 mg PO QAM FLUID #90 tabs 07/24/24 Rx Have you fallen in the past year?: No [facility] Medical History (Updated 07/24/24 @ 16:[address] 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 Obesity Elevated troponin (08/09/20) Hyperlipidemia Nicotine dependence History of pulmonary embolus (PE) (08/10/20) Essential hypertension Wound of left lower extremity Insomnia Change in skin mole Heart failure with preserved ejection fraction Shortness of breath Osteoarthritis of left knee Chronic pain of left knee Tobacco use Arthritis Acute hypoxemic respiratory failure (08/09/20) Surgical History H/O tubal ligation History of cholecystectomy H/O elbow surgery Family History Other Anxiety Arthritis Depression Hypertension Thyroid disorder Social History housing: house Smoking Status: Current every day smoker tobacco type: cigarettes alcohol intake: never substance use type: does not use what type of physical activity do you participate in: walking frequency: 5-6 times per week HPI HPI Chief Complaint: SWOLLEN LEGS, SEEPING WATER AND BLISTERS Details: CLARIBEL ALLISON, is a 69 F who presents to the office today for an acute visit. She reports a 2-week history of progressively worsening shortness of breath with activity, increased lower extremity edema and fatigue. Has also had some open blisters with drainage which is becoming hard to control. History of diastolic heart failure, not following up with cardiology. Also history of atrial fibrillation/flutter. She states that at rest, her symptoms are not so bothersome. No chest pain. ROS Const Constitutional: Positive for weight change (GAIN); No body ache, chills, excessive sweating, fatigue, fever(s), frequent falls, headache(s), snoring, weakness, sleep problems or change in appetite Eyes Eyes: No blurry vision, change in vision, bulging eyes, floaters, visual disturbances or Light sensitivity ENT ENT: No abnormal hearing, ear or mastoid pain, tinnitus, balance problems, nosebleed/epistaxis, nasal congestion, nasal discharge, headache(s), neck pain or sore throat Resp Respiratory: Positive for shortness of breath (WORSENING) sob: SOB with activity; No cough, snoring or wheez (more content not included)... Normal [facility] L503.7505on 07-24-2024 Natriuretic peptide B (Bld) [Mass/Vol] 3206 pg/mL High <=900 [facility] Comment on above: Result Comment: Hear t Failure Unlikely: < 300 pg/mL Heart Failure Likely < 50 Years: > 450 pg/mL 50-75 Years: > 900 pg/mL >75 Years: > 1800 pg/mL Performed By: #### L 300.3900 #### [facility] [address] [place], [address] Laboratory - Chemistry and C hemistry - challengeOrdered By: Abdulaziz Ackerman on 07-24-2024 Natriuretic peptide B (Bld) [Mass/Vol] 3206 pg/mL High <900 [facility] Comment on above: Heart Failure Unlike ly: < 300 pg/mLHeart Failure Likely< 50 Years: > 450 pg/mL50-75 Years: > 900 pg/mL>75 Years: > 1800 pg/mL Lymphocytes Auto (Unsp spec) [#/Vol]Ordered By: Abdulaziz Ackerman on 07-24-2024 Lymphocytes (Bld) [#/Vol] 1.41 10*3/uL 0.83-4.51 [facility] Lymphocytes/100 WBC Auto (Un sp spec)Ordered By: Abdulaziz Ackerman on 07-24-2024 Lymphocytes/100 WBC (Bld) 18.9 % Low 19-41 [facility] MCV (mean corpuscular volume ) determinationOrdered By: Abdulaziz Ackerman on 07-24-2024 MCV (RBC) [Entitic vol] 77.2 fL Low 81-99 [facility] Mean corpuscular hemoglobin (MCH) determinationOrdered By: Abdulaziz Ackerman on 07-24-2024 MCH (RBC) [Entitic mass] 22.1 pg Low 27.0-32.0 [facility] Mean corpuscular hemoglobin concentration (MCHC) determinationOrdered By: Abdulaziz Ackerman on 07-24-2024 MCHC (RBC) [Mass/Vol] 28.6 g/dL Low 32-36 [facility] Mean platelet volume determi nationOrdered By: Abdulaziz Ackerman on 07-24-2024 Platelet mean volume (Bld) [Entitic vol] 10.1 fL 6.2-12.0 [facility] Monocyte percentageOrdered B y: Abdulaziz Ackerman on 07-24-2024 Monocytes/100 WBC (Bld) 9.2 % 0-10 [facility] Neutrophil percentageOrdered By: mylenecamas valleyarsenio Solorzanonoah on 07-24-2024 Neutrophils/100 WBC (Bld) 68.7 % 47-70 [facility] Nucleated red blood cell per centageOrdered By: Glocamas valleyaresnio Ackerman on 07-24-2024 Nucleated RBC/100 WBC (Bld) [Ratio] 0 % 0-5 [facility] Platelet countOrdered By: Renita briaarsenio Ackerman on 07-24-2024 Platelets (Bld) [#/Vol] 237 10*3/uL 150-450 [facility] Prothrombin Time w/INRon INR Coag (PPP) [Relative time] 1.2 {INR} Normal [facility] Comment on above: Order Comment: Comme nts: standing order. Performed By: #### L 300.3900 #### [facility] [address] [place], [address] PT Coag (PPP) [Time] 15.7 s High 11.7-14.9 [facility] Comment on above: Order Comment: Comme nts: standing order. Performed By: #### L 300.3900 #### [facility] [address] [place], [address] RBC Auto (Bld) [#/Vol]Ordere d By: Abdulaziz Ackerman on 07-24-2024 RBC (Bld) [#/Vol] 4.57 10*6/uL 4.2-5.4 [facility] T4 Free Directon 07-24-2024 T4 FREE DIRECT 1.10 ng/dL Normal 0.76-1.46 [facility] Comment on above: Order Comment: stand ing order. Performed By: #### L 300.3900, L100.0100, L500.4050 #### [facility] [address] [place], [place], [id number] T4 freeOrdered By: Abdulaziz Ackerman on 07-24-2024 Free T4 [Mass/Vol] 1.10 ng/dL 0.76-1.46 [facility] TSH DL <= 0.005 mIU/L QnOrde red By: Abdulaziz Ackerman on 07-24-2024 Thyroid Stimulating Hormone (TSH) 2.570 uIU/mL 0.300-4.200 [facility] TSH Qn 2.570 uIU/mL 0.300-4.200 [facility] Thyroid Stim Hormone (TSH)on 07-24-2024 TSH 2.570 uIU/mL Normal 0.300-4.200 [facility] Comment on above: Performed By: #### L 300.3900 #### [facility] [address] [place], [place], [id number] White blood cell (WBC) count Ordered By: Abdulaziz Ackerman on 07-24-2024 WBC (Bld) [#/Vol] 7.5 10*3/uL 4.4-11.0 [facility] International normalized rat io (INR) calculationOrdered By: Abdulaziz Ackerman on 04-30-2024 INR Coag (Bld) [Relative time] 1.8 {INR} [facility] Prothrombin Time w/INRon INR Coag (PPP) [Relative time] 1.8 {INR} Normal [facility] Comment on above: Performed By: #### L 300.3900 #### [facility] [address] [place], [place], [address] PT Coag (PPP) [Time] 20.6 s High 11.7-14.9 [facility] Comment on above: Performed By: #### L 300.3900 #### [facility] [address] [place], [address] Prothrombin timeOrdered By: Abdulaziz Ackerman on 04-30-2024 PT Coag (PPP) [Time] 20.6 s High 11.7-14.9 [facility] Prothrombin Time w/INRon INR Coag (PPP) [Relative time] 2.0 {INR} Normal [facility] Comment on above: Performed By: #### L 300.3900 #### [facility] [address] [place], [address] PT Coag (PPP) [Time] 22.4 s High 11.7-14.9 [facility] Comment on above: Performed By: #### L 300.3900 #### [facility] [address] [place], [address] Prothrombin Time w/INRon INR Coag (PPP) [Relative time] 1.9 {INR} Normal [facility] Comment on above: Performed By: #### L 300.3900 #### [facility] [address] [place], [address] PT Coag (PPP) [Time] 21.5 s High 11.7-14.9 [facility] Comment on above: Performed By: #### L 300.3900 #### [facility] [address] [place], [address] Prothrombin Time w/INRon INR Coag (PPP) [Relative time] 1.3 {INR} Normal [facility] Comment on above: Performed By: #### L 300.3900 #### [facility] [address] [place], [address] PT Coag (PPP) [Time] 15.9 s High 11.7-14.9 [facility] Comment on above: Performed By: #### L 300.3900 #### [facility] [address] [place], [address] Prothrombin Time w/INRon INR Coag (PPP) [Relative time] 1.2 {INR} Normal [facility] Comment on above: Performed By: #### L 300.3900, L100.0100, L500.4050 #### [facility] [address] [place], [address] PT Coag (PPP) [Time] 14.8 s Normal 11.7-14.9 [facility] Comment on above: Performed By: #### L 300.3900, L100.0100, L500.4050 #### [facility] [address] [place], [address] Prothrombin Time w/INRon INR Coag (PPP) [Relative time] 3.6 {INR} Normal [facility] Comment on above: Performed By: #### L 300.3900, L100.0100, L500.4050 #### [facility] [address] [place], [address] PT Coag (PPP) [Time] 35.6 s High 11.7-14.9 [facility] Comment on above: Performed By: #### L 300.3900, L100.0100, L500.4050 #### [facility] [address] [place], [address] Comprehensive Metabolic Prof ilon 02-23-2024 Albumin [Mass/Vol] 3.4 g/dL Normal 3.2-5.0 [facility] Comment on above: Performed By: #### L 300.3900, L100.0100, L500.4050 #### [facility] [address] [place] [place] [place], [address] Albumin/Globulin [Mass ratio] 0.9 {ratio} Normal 0.9-2.4 [facility] Comment on above: Performed By: #### L 300.3900, L100.0100, L500.4050 #### [facility] [address] [place] [place], [address] ALK P 92 U/L Normal 45-117 [facility] Comment on above: Performed By: #### L 300.3900, L100.0100, L500.4050 #### [facility] [address] [place], [address] ALT [Catalytic activity/Vol] 24 U/L Normal 13-56 [facility] Comment on above: Performed By: #### L 300.3900, L100.0100, L500.4050 #### [facility] [address] [place], [address] AST [Catalytic activity/Vol] 21 U/L Normal 15-37 [facility] Comment on above: Performed By: #### L 300.3900, L100.0100, L500.4050 #### [facility] [address] [place] [place] [place], [address] Bilirubin [Mass/Vol] 0.50 mg/dL Normal 0.20-1.00 [facility] Comment on above: Result Comment: For patients on eltrombopag therapy, use of Dimension [place] TBIL is not recommended. Performed By: #### L 300.3900, L100.0100, L500.4050 #### [facility] [address] [place] [place], [address] BUN/CRE 16.4 RATIO Normal 10-20 [facility] Comment on above: Performed By: #### L 300.3900, L100.0100, L500.4050 #### [facility] [address] [place], [address] CA,Total 9.0 mg/dL Normal 8.5-10.1 [facility] Comment on above: Performed By: #### L 300.3900, L100.0100, L500.4050 #### [facility] [address] [place], [address] Chloride [Moles/Vol] 109 mmol/L High 98-107 [facility] Comment on above: Performed By: #### L 300.3900, L100.0100, L500.4050 #### [facility] [address] [place], [address] CO2 [Moles/Vol] 27.0 mmol/L Normal 21.0-32.0 [facility] Comment on above: Performed By: #### L 300.3900, L100.0100, L500.4050 #### [facility] [address] [place], [address] Creatinine [Mass/Vol] 0.67 mg/dL Normal 0.55-1.02 [facility] Comment on above: Result Comment: The validity of the calculated GFR GFRAA in patients over 70 years has not been determined. Clinical correlation is essential. Performed By: #### L 300.3900, L100.0100, L500.4050 #### [facility] [address] [place], [address] EST GFR - AA 113 mL/min Normal >60 [facility] Comment on above: Result Comment: Afri can Martiniquais GFR Calc Performed By: #### L 300.3900, L100.0100, L500.4050 #### [facility] [address] [place], [address] GAP 6 Normal 5-15 [facility] Comment on above: Performed By: #### L 300.3900, L100.0100, L500.4050 #### [facility] [address] [place], [address] GFR/1.73 sq M.predicted among non-blacks MDRD (S/P/Bld) [Vol rate/Area] 94 mL/min/{1.73_m2} Normal >60 [facility] Comment on above: Result Comment: Non- GFR Calc Performed By: #### L 300.3900, L100.0100, L500.4050 #### [facility] [address] [place], [address] Globulin (S) [Mass/Vol] 3.9 g/dL Normal 2.2-4.2 [facility] Comment on above: Performed By: #### L 300.3900, L100.0100, L500.4050 #### [facility] [address] [place], [address] Glucose [Mass/Vol] 104 mg/dL Normal 74-106 [facility] Comment on above: Result Comment: Fast ing Glucose result from 100 to 125 mg/dL suggests IMPAIRED HOMEOSTASIS per A.D.A. criteria. Performed By: #### L 300.3900, L100.0100, L500.4050 #### [facility] [address] [place], [address] Potassium [Moles/Vol] 3.1 mmol/L Low 3.5-5.1 [facility] Comment on above: Performed By: #### L 300.3900, L100.0100, L500.4050 #### [facility] [address] [place], [address] Sodium [Moles/Vol] 142 mmol/L Normal 136-145 [facility] Comment on above: Performed By: #### L 300.3900, L100.0100, L500.4050 #### [facility] [address] [place] [place], [address] T PROT 7.3 g/dL Normal 6.4-8.2 [facility] Comment on above: Performed By: #### L 300.3900, L100.0100, L500.4050 #### [facility] [address] [place], [address] Urea nitrogen [Mass/Vol] 11 mg/dL Normal 7-18 [facility] Comment on above: Performed By: #### L 300.3900, L100.0100, L500.4050 #### [facility] [address] [place], [address] Hemoglobin A1con 02-23-2024 HbA1c (Bld) [Mass fraction] 6.3 % High 3.8-5.6 [facility] Comment on above: Result Comment: Norm al < 5.7 % Prediabetic 5.7 - 6.4 % Diabetic >or= 6.5 % Please note range changes. Performed By: #### L 300.3900, L100.0100, L500.4050 #### [facility] [address] [place], [address] Internal Medicine Office Vis iton 02-23-2024 Internal Medicine Office Visit [facility] [place] [address] OFFICE VISIT Date of Service: 02/23/24 MR#: [id number] Acct: [id number] Name: CLARIBEL ALLISON Rep #: [id number] : 1955 Provider: SUSANA hodgson Age/Sex: 68/F Location: [facility] Status: Signed with Addenda ADDENDUM by SUSANA Perez on 02/23/24 at 1619 HPI Details: CLARIBEL ALLISON, is a 68 F who presents to the office today for Assessment and Plan Assessment and Plan (1) Anxiety and depression: Status: Chronic (2) Essential hypertension: Status: Chronic (3) Hyperlipidemia: Status: Chronic Qualifiers: Hyperlipidemia type: pure hypercholesterolemia Qualified Code(s): E78.00 - Pure hypercholesterolemia, unspecified (4) Atrial flutter: Status: Chronic Qualifiers: Atrial flutter type: typical Qualified Code(s): I48.3 - Typical atrial flutter (5) GERD (gastroesophageal reflux disease): Status: Chronic Qualifiers: Esophagitis presence: esophagitis presence not specified Qualified Code(s): K21.9 - Gastro- esophageal reflux disease without esophagitis (6) Tobacco use: Status: Chronic (7) Osteoarthritis of left knee: Status: Chronic Qualifiers: Osteoarthritis type: unspecified Qualified Code(s): M17.12 - Unilateral primary osteoarthritis, left knee (8) Borderline type 2 diabetes mellitus: Status: Chronic Orders: Orders Lipid Profile Today E78.5 - Hyperlipidemia, unspecified Comprehensive Metabolic Profil Today R73.03 - Prediabetes Hemoglobin A1c Today R73.03 - Prediabetes Medications: Refilled baclofen 10 mg PO BID PRN 60 tabs 1RF muscle spasm Plan An extensive medication list was printed for patient including the doses, names, indications of all of her medications and was reviewed with patient today during her appointment. Importance of taking her medications as prescribed was discussed in detail. 02/23/24 1619 Date Sara Perez cc: * Signed Intake Vital Signs 09/20/23 08:22 02/23/24 08:03 Height 5 ft 5 in 5 ft 5 in Weight: 187 lb 6 oz BMI 31.1 BP 128/78 H Blood Pressure Location Lt brachial Position Sitting Respiration 16 Pulse 78 Pulse Source Palpation Temp 97.6 F L Temp Source Temporal Intake Visit Reasons: acute med fu Chief Complaint: FU Chronic Conditions Lending Manager Required: No Accompanied by: Self Is patient in pain?: No Allergies latex Allergy (Mild, Verified 02/23/24 07:59) rash trazodone Allergy (Mild, Verified 02/23/24 07:59) Tingling propoxyphene (From Darvocet-N) Allergy (Verified 02/23/24 07:59) Hives acetaminophen (From Darvocet-N) Adverse Reaction (Intermediate, Verified 02/23/24 07:59) Nausea/Vom/Diarrhea Medications ???Medication ???Instructions ???Recorded ???Confirmed ???Type amlodipine 10 mg tablet 10 mg PO DAILY #90 tabs 09/20/23 02/23/24 Rx atorvastatin 10 mg tablet (Lipitor) 10 mg PO DAILY #90 tabs 09/20/23 02/23/24 Rx lisinopril 40 mg tablet 40 mg PO DAILY #90 tabs 09/20/23 02/23/24 Rx omeprazole 40 mg capsule,delayed 40 mg PO DAILY #90 caps 09/20/23 02/23/24 Rx release potassium chloride 20 mEq 20 meq PO DAILY SUPPLEMENT #30 tabs 09/20/23 02/23/24 Rx tablet,extended release warfarin 3 mg tablet 3 mg PO DAILY #90 tabs 11/03/23 02/23/24 Rx furosemide 40 mg tablet 40 mg PO SUSA PRN FLUID #30 tabs 02/08/24 02/23/24 Rx baclofen 10 mg tablet 10 mg PO BID PRN muscle spasm #60 02/23/24 02/23/24 Rx tabs Have you fallen in the past year?: No PFSH Medical History Diastolic heart failure Acute lumbar myofascial strain Acute thoracic myofascial strain Back pain Debility, unspecified Return to work evaluation Right renal mass Angina of effort Acute hypokalemia Chest pain Non-ST elevation WA (NSTEMI) Atrial flutter Borderline type 2 diabetes mellitus GERD (gastroesophageal reflux disease) Acute low back pain Elevated random blood glucose level Anxiety and depression Menopausal disorder Melanoma Preoperative clearance Flu vaccine need 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 Normal [facility] Lipid Profileon 02-23-2024 Cholesterol [Mass/Vol] 164 mg/dL Normal 200 [facility] Comment on above: Result Comment: <200 mg/dL Desirable 200-240 mg/dL Borderline >240 mg/dL High Risk Performed By: #### L 300.3900, L100.0100, L500.4050 #### [facility] [address] [place], [address] Cholesterol in HDL [Mass/Vol] 47 mg/dL Normal [facility] Comment on above: Result Comment: The drugs N-Acetylcysteine and Metamizole may falsely depress this assay. Reference Range HDL <40 mg/dL Low HDL Cholesterol HDL >or= 60 mg/dL High HDL Cholesterol Performed By: #### L 300.3900, L100.0100, L500.4050 #### [facility] [address] [place], [address] Cholesterol in LDL [Mass/Vol] 94 mg/dL Normal 0-130 [facility] Comment on above: Performed By: #### L 300.3900, L100.0100, L500.4050 #### [facility] [address] [place], [address] Cholesterol in VLDL [Mass/Vol] 23 mg/dL Normal 5-40 [facility] Comment on above: Performed By: #### L 300.3900, L100.0100, L500.4050 #### [facility] [address] [place], [address] Triglyceride [Mass/Vol] 117 mg/dL Normal [facility] Comment on above: Result Comment: The drugs N-Acetylcysteine and Metamizole may falsely depress this assay. Serum Triglycerides Reference Interval Normal <150 mg/dL Borderline high 150 - 199 mg/dL High 200 - 499 mg/dL Very High > or = 500 mg/dL Performed By: #### L 300.3900, L100.0100, L500.4050 #### [facility] [address] [place], [address] Prothrombin Time w/INRon INR Coag (PPP) [Relative time] 1.6 {INR} Normal [facility] Comment on above: Performed By: #### L 300.3900, L100.0100, L500.4050 #### [facility] [address] [place], [address] PT Coag (PPP) [Time] 18.7 s High 11.7-14.9 [facility] Comment on above: Performed By: #### L 300.3900, L100.0100, L500.4050 #### [facility] [address] [place], [address] Prothrombin Time w/INRon INR Coag (PPP) [Relative time] 3.6 {INR} Normal [facility] Comment on above: Performed By: #### L 300.3900 #### [facility] [address] [place], [address] PT Coag (PPP) [Time] 35.3 s High 11.7-14.9 [facility] Comment on above: Performed By: #### L 300.3900 #### [facility] [address] [place], [address] Prothrombin Time w/INRon INR Coag (PPP) [Relative time] 3.4 {INR} Normal [facility] Comment on above: Performed By: #### L 300.3900 #### [facility] [address] [place] [place], [address] PT Coag (PPP) [Time] 34.4 s High 11.7-14.9 [facility] Comment on above: Performed By: #### L 300.3900 #### [facility] [address] [place] [place], [address] Prothrombin Time w/INRon INR Coag (PPP) [Relative time] 1.7 {INR} Normal [facility] Comment on above: Performed By: #### L 300.3900 #### [facility] [address] [place], [address] PT Coag (PPP) [Time] 19.9 s High 11.7-14.9 [facility] Comment on above: Performed By: #### L 300.3900 #### [facility] [address] [place], [address] Prothrombin Time w/INRon INR Coag (PPP) [Relative time] 1.5 {INR} Normal [facility] Comment on above: Performed By: #### L 300.3900 #### [facility] [address] [place], [address] PT Coag (PPP) [Time] 17.8 s High 11.7-14.9 [facility] Comment on above: Performed By: #### L 300.3900 #### [facility] [address] [place], [address] Prothrombin Time w/INRon INR Coag (PPP) [Relative time] 2.5 {INR} Normal [facility] Comment on above: Performed By: #### L 300.3900 #### [facility] [place], [address] PT Coag (PPP) [Time] 27.1 s High 11.7-14.9 [facility] Comment on above: Performed By: #### L 300.3900 #### [facility] [address] [place], [address] Prothrombin Time w/INRon INR Coag (PPP) [Relative time] 1.9 {INR} Normal [facility] Comment on above: Performed By: #### L 300.3900, L100.0100, L500.4050 #### [facility] [address] [place] [place], [address] PT Coag (PPP) [Time] 21.4 s High 11.7-14.9 [facility] Comment on above: Performed By: #### L 300.3900, L100.0100, L500.4050 #### [facility] [address] [place], [address] Laboratory - CoagulationOrde red By: Sara Perez on 09-18-2023 INR Coag (Bld) [Relative time] 1.0 {INR} [facility] PT Coag (PPP) [Time] 13.6 s 11.7-14.9 [facility] Basophil percentageOrdered B y: Abdulaziz Ackerman on 08-08-2023 Bilirubin [Mass/Vol] 0.40 mg/dL 0.20-1.00 [facility] Comment on above: For patients on eltr ombopag therapy, use of Dimension [place] TBIL is not recommended. Chloride [Moles/Vol] 105 mmol/L 98-107 [facility] Glucose [Mass/Vol] 148 mg/dL 74-106 [facility] Comment on above: Fasting Glucose resu lt greater than or equal to 126 mg/dL suggests DIABETES MELLITUS per A.D.A. criteria. Potassium [Moles/Vol] 3.6 mmol/L 3.5-5.1 [facility] Protein [Mass/Vol] 8.1 g/dL 6.4-8.2 [facility] Sodium [Moles/Vol] 140 mmol/L 136-145 [facility] Laboratory - Chemistry and C hemistry - challengeOrdered By: Abdulaziz Ackerman on 08-08-2023 Albumin/Globulin [Mass ratio] 0.7 {ratio} 0.9-2.4 [facility] ALP [Catalytic activity/Vol] 89 U/L 45-117 [facility] ALT [Catalytic activity/Vol] 17 U/L 13-56 [facility] CO2 [Moles/Vol] 24.0 mmol/L 21.0-32.0 [facility] Globulin (S) [Mass/Vol] 4.7 g/dL 2.2-4.2 [facility] Urea nitrogen/Creatinine [Mass ratio] 19.6 mg/mg 10-20 [facility] - CoagulationOrde red By: Sara Perez on 08-08-2023 INR Coag (Bld) [Relative time] 2.2 {INR} [facility] PT Coag (PPP) [Time] 24.0 s 11.7-14.9 [facility] No Panel InformationOrdered By: Abdulaziz Ackerman on 08-08-2023 Estimated GFR (MDRD) Amer 97 mL/min >60 [facility] Comment on above: GFR Calc Estimated GFR (MDRD) Non-Af Amer 80 mL/min >60 [facility] Comment on above: Non- GFR Calc Serum or plasma calcium lakshmi urement (mass/volume)Ordered By: Abdulaziz Ackerman on 08-08-2023 Calcium [Mass/Vol] 8.8 mg/dL 8.5-10.1 [facility] Serum or plasma creatinine m easurement (mass/volume)Ordered By: Abdulaziz Ackerman on 08-08-2023 Creatinine [Mass/Vol] 0.76 mg/dL 0.55-1.02 [facility] Comment on above: The validity of the calculated GFR & GFRAA in patients over 70 years has not been determined. Clinical correlation is essential. Serum or plasma urea nitroge n measurement (mass/volume)Ordered By: Abdulaziz Ackerman on 08-08-2023 Urea nitrogen [Mass/Vol] 15 mg/dL 7-18 [facility] Thin prep Papanicolaou smear with manual screeningOrdered By: Abdulaziz Ackerman on 08-08-2023 Thin prep Papanicolaou smear with manual screening 3.4 g/dL 3.2-5.0 [facility] Thin prep Papanicolaou smear with manual screening 17 U/L 15-37 [facility] Thin prep Papanicolaou smear with manual screening 11 5-15 [facility] Absolute lymphocyte countOrd ered By: Sara Perez on 07-28-2023 Lymphocytes Auto (Unsp spec) [#/Vol] 2.41 10*3/uL 0.83-4.51 [facility] Automated lymphocyte count a s percentage of total leukocytesOrdered By: Sara Perez on 07-28-2023 Lymphocytes/100 WBC Auto (Unsp spec) 26.5 % 19-41 [facility] Basophil percentageOrdered B y: Sara Perez on 07-28-2023 Basophils/100 WBC (Bld) 0.7 % 0-1 [facility] Chloride [Moles/Vol] 108 mmol/L 98-107 [facility] Eosinophils/100 WBC (Bld) 1.8 % 0-5 [facility] Glucose [Mass/Vol] 88 mg/dL 74-106 [facility] Hemoglobin (Bld) [Mass/Vol] 12.1 g/dL 12.0-15.0 [facility] Monocytes/100 WBC (Bld) 8.5 % 0-10 [facility] Neutrophils (Bld) [#/Vol] 5.7 10*3/uL 2.0-7.7 [facility] Neutrophils/100 WBC (Bld) 62.3 % 47-70 [facility] Potassium [Moles/Vol] 4.1 mmol/L 3.5-5.1 [facility] Sodium [Moles/Vol] 139 mmol/L 136-145 [facility] WBC (Bld) [#/Vol] 9.1 10*3/uL 4.4-11.0 [facility] Determination of erythrocyte mean corpuscular volume (MCV)Ordered By: Sara Perez on 07-28-2023 MCV (RBC) [Entitic vol] 81.2 fL 81-99 [facility] Erythrocyte distribution wid th ratioOrdered By: Sara Perez on 07-28-2023 Erythrocyte distribution width (RBC) [Ratio] 19.7 % 11.6-14.6 [facility] Erythrocyte distribution wid th standard deviationOrdered By: Sara Perez on 07-28-2023 Erythrocyte distribution width (RBC) [Entitic vol] 57.5 fL 35.1-43.9 [facility] Hematocrit Auto (Bld) [Volum e fraction]Ordered By: Sara Perez on 07-28-2023 Hematocrit (Bld) [Volume fraction] 40.7 % 37-47 [facility] Immature granulocytes/100 WB C Auto (Bld)Ordered By: Sara Perez on 07-28-2023 Immature granulocytes/100 WBC (Bld) 0.200 % 0.0-0.9 [facility] Comment on above: IG% - Immature Granu locytes (promyelocytes, myelocytes and metamyelocytes) > 1% indicates that a LEFT SHIFT is Present. Iron measurement (mass/mass) Ordered By: Sara Perez on 07-28-2023 Iron (Unsp spec) [Mass/Mass] 39 ug/dL 50-170 [facility] - Chemistry and C hemistry - challengeOrdered By: Sara Perez on 07-28-2023 CO2 [Moles/Vol] 27.0 mmol/L 21.0-32.0 [facility] Ferritin [Mass/Vol] 38 ng/mL 8-252 [facility] Urea nitrogen/Creatinine [Mass ratio] 15.7 mg/mg 10-20 [facility] - CoagulationOrde red By: Sara Perez on 07-28-2023 INR Coag (Bld) [Relative time] 1.3 {INR} [facility] PT Coag (PPP) [Time] 16.5 s 11.7-14.9 [facility] Laboratory - Hematology and Cell countsOrdered By: Sara Perez on 07-28-2023 MCH (RBC) [Entitic mass] 24.2 pg 27.0-32.0 [facility] MCHC (RBC) [Mass/Vol] 29.7 g/dL 32-36 [facility] Nucleated RBC/100 WBC (Bld) [Ratio] 0 % 0-5 [facility] Platelet mean volume (Bld) [Entitic vol] 10.9 fL 6.2-12.0 [facility] Platelets (Bld) [#/Vol] 283 10*3/uL 150-450 [facility] No Panel InformationOrdered By: Sara Perez on 07-28-2023 Estimated GFR (MDRD) Amer 89 mL/min >60 [facility] Comment on above: GFR Calc Estimated GFR (MDRD) Non-Af Amer 73 mL/min >60 [facility] Comment on above: Non- GFR Calc Total Iron Binding Capacity 437 ug/dL 250-450 [facility] RBC Auto (Bld) [#/Vol]Ordere d By: Sara Perez on 07-28-2023 RBC (Bld) [#/Vol] 5.01 10*6/uL 4.2-5.4 [facility] Serum or plasma calcium lakshmi urement (mass/volume)Ordered By: Sara Perez on 07-28-2023 Calcium [Mass/Vol] 9.2 mg/dL 8.5-10.1 [facility] Serum or plasma creatinine m easurement (mass/volume)Ordered By: Sara Perez on 07-28-2023 Creatinine [Mass/Vol] 0.83 mg/dL 0.55-1.02 [facility] Comment on above: The validity of the calculated GFR & GFRAA in patients over 70 years has not been determined. Clinical correlation is essential. Serum or plasma urea nitroge n measurement (mass/volume)Ordered By: Sara Perez on 07-28-2023 Urea nitrogen [Mass/Vol] 13 mg/dL 7-18 [facility] Thin prep Papanicolaou smear with manual screeningOrdered By: Sara Perez on 07-28-2023 Thin prep Papanicolaou smear with manual screening 4 5-15 [facility] - CoagulationOrde red By: Sara Perez on 06-26-2023 PT Coag (PPP) [Time] 16.5 s 11.7-14.9 [facility] Platelet poor plasma interna tional normalized ratio (INR)Ordered By: Sara Perez on 06-26-2023 INR Coag (PPP) [Relative time] 1.3 {INR} [facility] normalized rat io (INR) calculationOrdered By: Sara Perez on 06-21-2023 INR Coag (PPP) [Relative time] 1.3 {INR} [facility] - CoagulationOrde red By: Sara Perez on 06-21-2023 PT Coag (PPP) [Time] 16.6 s 11.7-14.9 [facility] Basophil percentageOrdered B y: Sara Perez on 06-19-2023 Bilirubin [Mass/Vol] 0.40 mg/dL 0.20-1.00 [facility] Comment on above: For patients on eltr ombopag therapy, use of Dimension [place] TBIL is not recommended. Chloride [Moles/Vol] 112 mmol/L 98-107 [facility] Glucose [Mass/Vol] 97 mg/dL 74-106 [facility] Potassium [Moles/Vol] 3.9 mmol/L 3.5-5.1 [facility] Protein [Mass/Vol] 6.6 g/dL 6.4-8.2 [facility] Sodium [Moles/Vol] 143 mmol/L 136-145 [facility] Laboratory - Chemistry and C hemistry - challengeOrdered By: Sara Perez on 06-19-2023 Albumin/Globulin [Mass ratio] 1.0 {ratio} 0.9-2.4 [facility] ALP [Catalytic activity/Vol] 101 U/L 45-117 [facility] ALT [Catalytic activity/Vol] 21 U/L 13-56 [facility] CO2 [Moles/Vol] 27.0 mmol/L 21.0-32.0 [facility] Globulin (S) [Mass/Vol] 3.3 g/dL 2.2-4.2 [facility] Urea nitrogen/Creatinine [Mass ratio] 20.1 mg/mg 10-20 [facility] No Panel InformationOrdered By: Sara Perez on 06-19-2023 Estimated GFR (MDRD) Amer 100 mL/min >60 [facility] Comment on above: GFR Calc Estimated GFR (MDRD) Non-Af Amer 83 mL/min >60 [facility] Comment on above: Non- GFR Calc Serum or plasma calcium lakshmi urement (mass/volume)Ordered By: Sara Perez on 06-19-2023 Calcium [Mass/Vol] 8.7 mg/dL 8.5-10.1 [facility] Serum or plasma creatinine m easurement (mass/volume)Ordered By: Sara Perez on 06-19-2023 Creatinine [Mass/Vol] 0.74 mg/dL 0.55-1.02 [facility] Comment on above: The validity of the calculated GFR & GFRAA in patients over 70 years has not been determined. Clinical correlation is essential. Serum or plasma urea nitroge n measurement (mass/volume)Ordered By: Sara Perez on 06-19-2023 Urea nitrogen [Mass/Vol] 15 mg/dL 7-18 [facility] Thin prep Papanicolaou smear with manual screeningOrdered By: Sara Perez on 06-19-2023 Thin prep Papanicolaou smear with manual screening 3.3 g/dL 3.2-5.0 [facility] Thin prep Papanicolaou smear with manual screening 14 U/L 15-37 [facility] Thin prep Papanicolaou smear with manual screening 4 5-15 [facility] - Hematology and Cell countson 12-29-2022 HbA1c (Bld) [Mass fraction] 5.8 % 4.2-6.3 [facility] Basophil percentageOrdered B y: Jimmy Clark on 11-18-2022 Chloride [Moles/Vol] 108 mmol/L 98-107 [facility] Glucose [Mass/Vol] 92 mg/dL 74-106 [facility] Potassium [Moles/Vol] 2.9 mmol/L 3.5-5.1 [facility] Sodium [Moles/Vol] 141 mmol/L 136-145 [facility] - Chemistry and C hemistry - challengeOrdered By: Jimmy Clark on 11-18-2022 CO2 [Moles/Vol] 26.0 mmol/L 21.0-32.0 [facility] Urea nitrogen/Creatinine [Mass ratio] 25.2 mg/mg 10- [facility] No Panel InformationOrdered By: Jimmy Clark on 11-18-2022 Estimated Creatinine Clearance Calc 75.68 ml/min [facility] Estimated GFR (MDRD) Amer 121 mL/min >60 [facility] Comment on above: GFR Calc Estimated GFR (MDRD) Non-Af Amer 100 mL/min >60 [facility] Comment on above: Non- GFR Calc Serum or plasma calcium lakshmi urement (mass/volume)Ordered By: Jimmy Clark on 11-18-2022 Calcium [Mass/Vol] 8.7 mg/dL 8.5-10.1 [facility] Serum or plasma creatinine m easurement (mass/volume)Ordered By: Jimmy Clark on 11-18-2022 Creatinine [Mass/Vol] 0.64 mg/dL 0.55-1.02 [facility] Comment on above: The validity of the calculated GFR & GFRAA in patients over 70 years has not been determined. Clinical correlation is essential. Serum or plasma urea nitroge n measurement (mass/volume)Ordered By: Jimmy Clark on 11-18-2022 Urea nitrogen [Mass/Vol] 16 mg/dL 7-18 [facility] Thin prep Papanicolaou smear with manual screeningOrdered By: Jimmy Clark on 11-18-2022 Thin prep Papanicolaou smear with manual screening 7 - [facility] Absolute lymphocyte countOrd ered By: Maury Flores on 11-17-2022 Lymphocytes Auto (Unsp spec) [#/Vol] 1.97 10*3/uL 0.83-4.51 [facility] Basophil percentageOrdered B y: Maury Flores on 11-17-2022 Cholesterol [Mass/Vol] 187 mg/dL <200 [facility] Comment on above: <200 mg/dL Desirable 200-240 mg/dL Borderline >240 mg/dL High Risk Triglyceride [Mass/Vol] 152 mg/dL <199 [facility] Comment on above: The drugs N-Acetylcy steine and Metamizole may falsely depress this assay.Serum Triglycerides Reference Interval Normal <150 mg/dL Borderline high 150 - 199 mg/dL High 200 - 499 mg/dL Very High > or = 500 mg/dL Basophils/100 WBC (Bld) 0.9 % 0-1 [facility] Chloride [Moles/Vol] 109 mmol/L 98-107 [facility] Eosinophils/100 WBC (Bld) 1.6 % 0-5 [facility] Glucose [Mass/Vol] 140 mg/dL 74-106 [facility] Comment on above: Fasting Glucose resu lt greater than or equal to 126 mg/dL suggests DIABETES MELLITUS per A.D.A. criteria. Neutrophils (Bld) [#/Vol] 5.8 10*3/uL 2.0-7.7 [facility] Neutrophils/100 WBC (Bld) 67.7 % 47-70 [facility] Potassium [Moles/Vol] 3.2 mmol/L 3.5-5.1 [facility] Sodium [Moles/Vol] 139 mmol/L 136-145 [facility] WBC (Bld) [#/Vol] 8.6 10*3/uL 4.4-11.0 [facility] Blood erythrocytes count (nu mber/volume)Ordered By: Maury Flores on 11-17-2022 RBC (Bld) [#/Vol] 4.75 10*6/uL 4.2-5.4 [facility] Blood hemoglobin measurement (mass/volume)Ordered By: Maury Flores on 11-17-2022 Hemoglobin (Bld) [Mass/Vol] 12.9 g/dL 12.0-15.0 [facility] Blood lymphocytes/100 leukoc ytesOrdered By: Maruy Flores on 11-17-2022 Lymphocytes/100 WBC (Bld) 22.9 % 19-41 [facility] Blood monocytes/100 leukocyt esOrdered By: Maury Flores on 11-17-2022 Monocytes/100 WBC (Bld) 6.3 % 0-10 [facility] Blood platelet mean volumeOr dered By: Maury Flores on 11-17-2022 Platelet mean volume (Bld) [Entitic vol] 10.3 fL 6.2-12.0 [facility] Determination of erythrocyte mean corpuscular volume (MCV)Ordered By: Maury Flores on 11-17-2022 MCV (RBC) [Entitic vol] 86.3 fL 81-99 [facility] Hematocrit Auto (Bld) [Volum e fraction]Ordered By: Maury Flores on 11-17-2022 Hematocrit (Bld) [Volume fraction] 41.0 % 37-47 [facility] - Chemistry and C hemistry - challengeOrdered By: Maury Flores on 11-17-2022 CO2 [Moles/Vol] 22.0 mmol/L 21.0-32.0 [facility] Magnesium [Mass/Vol] 2.1 mg/dL 1.6-2.6 [facility] Urea nitrogen/Creatinine [Mass ratio] 19.0 mg/mg 10-20 [facility] - Hematology and Cell countsOrdered By: Maury Flores on 11-17-2022 Erythrocyte distribution width (RBC) [Entitic vol] 52.2 fL 35.1-43.9 [facility] Erythrocyte distribution width (RBC) [Ratio] 16.5 % 11.6-14.6 [facility] Immature granulocytes/100 WBC (Bld) 0.600 % 0.0-0.9 [facility] Comment on above: IG% - Immature Granu locytes (promyelocytes, myelocytes and metamyelocytes) > 1% indicates that a LEFT SHIFT is Present. MCH (RBC) [Entitic mass] 27.2 pg 27.0-32.0 [facility] Nucleated RBC/100 WBC (Bld) [Ratio] 0 % 0-5 [facility] MCHC Auto (RBC) [Mass/Vol]Or dered By: Maury Flores on 11-17-2022 MCHC (RBC) [Mass/Vol] 31.5 g/dL 32-36 [facility] No Panel InformationOrdered By: Jimmy Clark on 11-17-2022 Troponin I High Sensitivity 193 pg/mL 3.0-54.0 [facility] Comment on above: Critical Result(s) C alled at: 15:03:41 11/17/2022 by: Maynor Gonzalez. Results read back by same. Please Note: New Test Units and Gender Specific Reference Ranges. For more information see Policy Stat Procedure [place] High Sensitivity Troponin (TNIH) and attachments. No Panel InformationOrdered By: Maury Flores on 11-17-2022 Estimated Creatinine Clearance Calc 57.66 ml/min [facility] Estimated GFR (MDRD) Amer 87 mL/min >60 [facility] Comment on above: GFR Calc Estimated GFR (MDRD) Non-Af Amer 72 mL/min >60 [facility] Comment on above: Non- GFR Calc Thyroid Stimulating Hormone (TSH) 1.03 uIU/mL 0.358-3.74 [facility] Troponin I High Sensitivity 198 pg/mL 3.0-54.0 [facility] Comment on above: Critical Result(s) C alled at: 08:19:05 11/17/2022 by: Bijal Currie. Results read back by same. Please Note: New Test Units and Gender Specific Reference Ranges. For more information see Policy Stat Procedure [place] High Sensitivity Troponin (TNIH) and attachments. Platelets bldOrdered By: Corey Flores on 11-17-2022 Platelets (Bld) [#/Vol] 259 10*3/uL 150-450 [facility] Serum or plasma calcium lakshmi urement (mass/volume)Ordered By: Maury Flores on 11-17-2022 Calcium [Mass/Vol] 8.8 mg/dL 8.5-10.1 [facility] Serum or plasma cholesterol in HDL measurement (mass/volume)Ordered By: Maury Flores on 11-17-2022 Cholesterol in HDL [Mass/Vol] 39 mg/dL >40 [facility] Comment on above: The drugs N-Acetylcy steine and Metamizole may falsely depress this assay. Reference Range HDL <40 mg/dL Low HDL Cholesterol HDL >or= 60 mg/dL High HDL Cholesterol Serum or plasma cholesterol in VLDL measurement (mass/volume)Ordered By: Maury Flores on 11-17-2022 Cholesterol in VLDL [Mass/Vol] 30 mg/dL 5-40 [facility] Serum or plasma creatinine m easurement (mass/volume)Ordered By: Maury Flores on 11-17-2022 Creatinine [Mass/Vol] 0.84 mg/dL 0.55-1.02 [facility] Comment on above: The validity of the calculated GFR & GFRAA in patients over 70 years has not been determined. Clinical correlation is essential. Serum or plasma low density lipoprotein (LDL) cholesterol measurement (mass/volume)Ordered By: Maury Flores on 11-17-2022 Cholesterol in LDL [Mass/Vol] 118 mg/dL 0-130 [facility] Serum or plasma urea nitroge n measurement (mass/volume)Ordered By: Maury Flores on 11-17-2022 Urea nitrogen [Mass/Vol] 16 mg/dL 7-18 [facility] Thin prep Papanicolaou smear with manual screeningOrdered By: Maury Flores on 11-17-2022 Thin prep Papanicolaou smear with manual screening 8 5-15 [facility] Absolute lymphocyte countOrd ered By: Dr. Ackerman on 07-29-2022 Lymphocytes Auto (Unsp spec) [#/Vol] 2.49 10*3/uL 0.83-4.51 [facility] Basophil percentageOrdered B y: Dr. Ackerman on 07-29-2022 Basophils/100 WBC (Bld) 0.4 % 0-1 [facility] Bilirubin [Mass/Vol] 0.40 mg/dL 0.20-1.00 [facility] Comment on above: For patients on eltr ombopag therapy, use of Dimension [place] TBIL is not recommended. Chloride [Moles/Vol] 107 mmol/L 98-107 [facility] Cholesterol [Mass/Vol] 168 mg/dL <200 [facility] Comment on above: <200 mg/dL Desirable 200-240 mg/dL Borderline >240 mg/dL High Risk Eosinophils/100 WBC (Bld) 0.8 % 0-5 [facility] Glucose [Mass/Vol] 111 mg/dL 74-106 [facility] Comment on above: Fasting Glucose resu lt from 100 to 125 mg/dL suggests IMPAIRED HOMEOSTASIS per A.D.A. criteria. Neutrophils (Bld) [#/Vol] 7.0 10*3/uL 2.0-7.7 [facility] Neutrophils/100 WBC (Bld) 67.4 % 47-70 [facility] Potassium [Moles/Vol] 3.4 mmol/L 3.5-5.1 [facility] Protein [Mass/Vol] 7.3 g/dL 6.4-8.2 [facility] Sodium [Moles/Vol] 141 mmol/L 136-145 [facility] Triglyceride [Mass/Vol] 96 mg/dL <199 [facility] Comment on above: The drugs N-Acetylcy steine and Metamizole may falsely depress this assay.Serum Triglycerides Reference Interval Normal <150 mg/dL Borderline high 150 - 199 mg/dL High 200 - 499 mg/dL Very High > or = 500 mg/dL WBC (Bld) [#/Vol] 10.4 10*3/uL 4.4-11.0 [facility] Blood erythrocytes count (nu mber/volume)Ordered By: Dr. Ackerman on 07-29-2022 RBC (Bld) [#/Vol] 4.59 10*6/uL 4.2-5.4 [facility] Blood hemoglobin measurement (mass/volume)Ordered By: Dr. Ackerman on 07-29-2022 Hemoglobin (Bld) [Mass/Vol] 12.2 g/dL 12.0-15.0 [facility] Blood lymphocytes/100 leukoc ytesOrdered By: Dr. Ackerman on 07-29-2022 Lymphocytes/100 WBC (Bld) 24.0 % 19-41 [facility] Blood monocytes/100 leukocyt esOrdered By: Dr. Ackerman on 07-29-2022 Monocytes/100 WBC (Bld) 7.0 % 0-10 [facility] Blood platelet mean volumeOr dered By: Dr. Ackerman on 07-29-2022 Platelet mean volume (Bld) [Entitic vol] 11.5 fL 6.2-12.0 [facility] Determination of erythrocyte mean corpuscular volume (MCV)Ordered By: Dr. Ackerman on 07-29-2022 MCV (RBC) [Entitic vol] 85.8 fL 81-99 [facility] Hematocrit Auto (Bld) [Volum e fraction]Ordered By: Dr. Ackerman on 07-29-2022 Hematocrit (Bld) [Volume fraction] 39.4 % 37-47 [facility] - Chemistry and C hemistry - challengeOrdered By: Dr. Ackerman on 07-29-2022 ALP [Catalytic activity/Vol] 113 U/L 45-117 [facility] ALT [Catalytic activity/Vol] 30 U/L 13-56 [facility] CO2 [Moles/Vol] 27.0 mmol/L 21.0-32.0 [facility] Globulin (S) [Mass/Vol] 4.2 g/dL 2.2-4.2 [facility] Urea nitrogen/Creatinine [Mass ratio] 17.2 mg/mg 10-20 [facility] - Hematology and Cell countsOrdered By: Dr. Ackerman on 07-29-2022 Erythrocyte distribution width (RBC) [Entitic vol] 48.9 fL 35.1-43.9 [facility] Erythrocyte distribution width (RBC) [Ratio] 15.6 % 11.6-14.6 [facility] Immature granulocytes/100 WBC (Bld) 0.400 % 0.0-0.9 [facility] Comment on above: IG% - Immature Granu locytes (promyelocytes, myelocytes and metamyelocytes) > 1% indicates that a LEFT SHIFT is Present. MCH (RBC) [Entitic mass] 26.6 pg 27.0-32.0 [facility] Nucleated RBC/100 WBC (Bld) [Ratio] 0 % 0-5 [facility] MCHC Auto (RBC) [Mass/Vol]Or dered By: Dr. Ackerman on 07-29-2022 MCHC (RBC) [Mass/Vol] 31.0 g/dL 32-36 [facility] No Panel InformationOrdered By: Dr. Ackerman on 07-29-2022 Estimated GFR (MDRD) Amer 120 mL/min >60 [facility] Comment on above: GFR Calc Estimated GFR (MDRD) Non-Af Amer 99 mL/min >60 [facility] Comment on above: Non- GFR Calc Platelets bldOrdered By: Dr. Ackerman on 07-29-2022 Platelets (Bld) [#/Vol] 249 10*3/uL 150-450 [facility] Serum or plasma albumin lakshmi urement (mass/volume)Ordered By: Dr. Ackerman on 07-29-2022 Albumin [Mass/Vol] 3.1 g/dL 3.2-5.0 [facility] Serum or plasma albumin/glob ulin mass ratioOrdered By: Dr. Ackerman on 07-29-2022 Albumin/Globulin [Mass ratio] 0.7 {ratio} 0.9-2.4 [facility] Serum or plasma calcium lakshmi urement (mass/volume)Ordered By: Dr. Ackerman on 07-29-2022 Calcium [Mass/Vol] 9.1 mg/dL 8.5-10.1 [facility] Serum or plasma cholesterol in HDL measurement (mass/volume)Ordered By: Dr. Ackerman on 07-29-2022 Cholesterol in HDL [Mass/Vol] 37 mg/dL >40 [facility] Comment on above: The drugs N-Acetylcy steine and Metamizole may falsely depress this assay. Reference Range HDL <40 mg/dL Low HDL Cholesterol HDL >or= 60 mg/dL High HDL Cholesterol Serum or plasma cholesterol in VLDL measurement (mass/volume)Ordered By: Dr. Ackerman on 07-29-2022 Cholesterol in VLDL [Mass/Vol] 19 mg/dL 5-40 [facility] Serum or plasma creatinine m easurement (mass/volume)Ordered By: Dr. Ackerman on 07-29-2022 Creatinine [Mass/Vol] 0.64 mg/dL 0.55-1.02 [facility] Comment on above: The validity of the calculated GFR & GFRAA in patients over 70 years has not been determined. Clinical correlation is essential. Serum or plasma low density lipoprotein (LDL) cholesterol measurement (mass/volume)Ordered By: Dr. Ackerman on 07-29-2022 Cholesterol in LDL [Mass/Vol] 112 mg/dL 0-130 [facility] Serum or plasma urea nitroge n measurement (mass/volume)Ordered By: Dr. Ackerman on 07-29-2022 Urea nitrogen [Mass/Vol] 11 mg/dL 7-18 [facility] Thin prep Papanicolaou smear with manual screeningOrdered By: Dr. Ackerman on 07-29-2022 Thin prep Papanicolaou smear with manual screening 15 U/L 15-37 [facility] Thin prep Papanicolaou smear with manual screening 7 5-15 [facility] Whole blood hemoglobin A1c/t otal hemoglobin ratio (mass fraction)Ordered By: Dr. Ackerman on 07-29-2022 HbA1c (Bld) [Mass fraction] 5.7 % 3.8-5.6 [facility] Comment on above: Normal < 5.7 % Predi abetic 5.7 - 6.4 % Diabetic >or= 6.5 % Please note range changes. Laboratory - Microbiology an d Antimicrobial susceptibilityOrdered By: Rosa Maria Abel on 05-26-2022 SARS-CoV-2 (COVID-19) RNA LAN+probe Ql (Unsp spec) Not detected Not Detect [facility] Comment on above: Normal Reference Ran ge: Not DetectedMethod:(RT-PCR) real-time reverse transcriptase PCRLuminex POONAM Instrument*The Food and Drug Administration (FDA) has issued an Emergency Use Authorization (EAU) for the POONAM SARS-CoV-2 Assay for the rapid detection of the virus that causes COVID-19. This test has been validated, but the [facility] independent review of this validation is pending.*Negative results do not preclude infection and should not be used as the sole basis for treatment or patient management. Optimum specimen types and timing for peak viral levels during infections caused by SARS-CoV-2 have not been determined. Collection of multiple specimens from the same patient may be necessary to detect the virus. The possibility of a false negative result should be considered if the patient has clinical presentation or has had recent exposure. Basophil percentageOrdered B y: Dr. Ackerman on 03-21-2022 Chloride [Moles/Vol] 106 mmol/L 98-107 [facility] Glucose [Mass/Vol] 108 mg/dL 74-106 [facility] Comment on above: Fasting Glucose resu lt from 100 to 125 mg/dL suggests IMPAIRED HOMEOSTASIS per A.D.A. criteria. Potassium [Moles/Vol] 3.7 mmol/L 3.5-5.1 [facility] Sodium [Moles/Vol] 139 mmol/L 136-145 [facility] Laboratory - Chemistry and C hemistry - challengeOrdered By: Dr. Ackerman on 03-21-2022 CO2 [Moles/Vol] 25.0 mmol/L 21.0-32.0 [facility] Urea nitrogen/Creatinine [Mass ratio] 22.0 mg/mg 10- [facility] No Panel InformationOrdered By: Dr. Ackerman on 03-21-2022 Estimated GFR (MDRD) Amer 90 mL/min >60 [facility] Comment on above: GFR Calc Estimated GFR (MDRD) Non-Af Amer 75 mL/min >60 [facility] Comment on above: Non- GFR Calc Serum or plasma calcium lakshmi urement (mass/volume)Ordered By: Dr. Ackerman on 03-21-2022 Calcium [Mass/Vol] 9.6 mg/dL 8.5-10.1 [facility] Serum or plasma creatinine m easurement (mass/volume)Ordered By: Dr. Ackerman on 03-21-2022 Creatinine [Mass/Vol] 0.82 mg/dL 0.55-1.02 [facility] Comment on above: The validity of the calculated GFR & GFRAA in patients over 70 years has not been determined. Clinical correlation is essential. Serum or plasma urea nitroge n measurement (mass/volume)Ordered By: Dr. Ackerman on 03-21-2022 Urea nitrogen [Mass/Vol] 18 mg/dL 7-18 [facility] Thin prep Papanicolaou smear with manual screeningOrdered By: Dr. Ackerman on 03-21-2022 Thin prep Papanicolaou smear with manual screening 8 5-15 [facility] Basophil percentageon 2021 Chloride [Moles/Vol] 111 mmol/L 98-107 [facility] Work Phone: Glucose [Mass/Vol] 160 mg/dL 74-106 [facility] Work Phone: Comment on above: Fasting Glucose resu lt greater than or equal to 126 mg/dL suggests DIABETES MELLITUS per A.D.A. criteria. Potassium [Moles/Vol] 3.4 mmol/L 3.5-5.1 [facility] Work Phone: Comment on above: Slight Hemolysis, Re sult may be falsely increased. Sodium [Moles/Vol] 142 mmol/L 136-145 [facility] Work Phone: Laboratory - Chemistry and C hemistry - challengeon 01-03-2022 CO2 [Moles/Vol] 24.0 mmol/L 21.0-32.0 [facility] Work Phone: Urea nitrogen/Creatinine [Mass ratio] 14.0 mg/mg 10- [facility] Work Phone: No Panel Informationon 01-03 Estimated GFR (MDRD) Amer 95 mL/min >60 [facility] Work Phone: Comment on above: GFR Calc Estimated GFR (MDRD) Non-Af Amer 78 mL/min >60 [facility] Work Phone: Comment on above: Non- GFR Calc Serum or plasma calcium lakshmi urement (mass/volume)on 01-03-2022 Calcium [Mass/Vol] 9.0 mg/dL 8.5-10.1 [facility] Work Phone: Serum or plasma creatinine m easurement (mass/volume)on 01-03-2022 Creatinine [Mass/Vol] 0.79 mg/dL 0.55-1.02 [facility] Work Phone: Comment on above: The validity of the calculated GFR & GFRAA in patients over 70 years has not been determined. Clinical correlation is essential. Serum or plasma urea nitroge n measurement (mass/volume)on 01-03-2022 Urea nitrogen [Mass/Vol] 11 mg/dL 12-06 [facility] Work Phone: Thin prep Papanicolaou smear with manual screeningon 01-03-2022 Thin prep Papanicolaou smear with manual screening 10-03 [facility] Work Phone: Whole blood hemoglobin A1c/t otal hemoglobin ratio (mass fraction)on 01-03-2022 HbA1c (Bld) [Mass fraction] 5.8 % 3.8-5.6 [facility] Work Phone: Comment on above: Normal < 5.7 % Predi abetic 5.7 - 6.4 % Diabetic >or= 6.5 % Please note range changes. NM LYMPH NODE IMAGINGon 09-19 NM LYMPH NODE IMAGING * * *Final Report* * * DATE OF EXAM: Oct 07 2021 9:33AM SOHAN 0033 - NM LYMPH NODE IMAGING / PROCEDURE REASON: C43.59 RIGHT MID BACK * * * * Physician Interpretation * * * * CUTANEOUS LYMPHOSCINTIGRAPHY: HISTORY: Melanoma. TECHNIQUE: Prior to radiopharmaceutical administration, the injection site was verified with the electronic medical record and with the nuclear equipment research engineer. 467 microcuries of filtered technetium-99m sulfur colloid were injected in four aliquots intradermally around the site of the skin lesion that was located in the right lower back by Dr. Allen. RESULT: A focus of activity is identified in the right axillary region, consistent with the site of a sentinel lymph node. At least one focus of activity is identified in the right inguinal region, consistent with the site of a sentinel lymph node. No other foci of accumulation of activity are seen to suggest other possible sentinel lymph node sites. IMPRESSION: RIGHT AXILLARY AND RIGHT INGUINAL SENTINEL LYMPH NODES IDENTIFIED. Meat Washer: PSCB Transcribe Date/Time: Oct 07 2021 9:50A Dictated by : HARSHAL HE MD This examination was interpreted and the report reviewed and electronically signed by: HARSHAL HE MD on Oct 07 2021 5:14PM EST [id number] Normal [facility] Absolute lymphocyte counton 09-29-2021 Lymphocytes Auto (Unsp spec) [#/Vol] 2.83 10*3/uL 0.83-4.51 [facility] Work Phone: Basophil percentageon 2021 Basophils/100 WBC (Bld) 0.8 % 0-1 [facility] Work Phone: Bilirubin [Mass/Vol] 0.30 mg/dL 0.20-1.00 [facility] Work Phone: Comment on above: For patients on eltr ombopag therapy, use of Dimension [place] TBIL is not recommended. Chloride [Moles/Vol] 107 mmol/L 98-107 [facility] Work Phone: Eosinophils/100 WBC (Bld) 2.3 % 0-5 [facility] Work Phone: Glucose [Mass/Vol] 95 mg/dL 74-106 [facility] Work Phone: Neutrophils (Bld) [#/Vol] 4.2 10*3/uL 2.0-7.7 [facility] Work Phone: Neutrophils/100 WBC (Bld) 52.2 % 47-70 [facility] Work Phone: Potassium [Moles/Vol] 3.1 mmol/L 3.5-5.1 [facility] Work Phone: Protein [Mass/Vol] 7.1 g/dL 6.4-8.2 [facility] Work Phone: Sodium [Moles/Vol] 139 mmol/L 136-145 [facility] Work Phone: WBC (Bld) [#/Vol] 7.9 10*3/uL 4.4-11.0 [facility] Work Phone: Blood erythrocytes count (nu mber/volume)on 09-29-2021 RBC (Bld) [#/Vol] 4.47 10*6/uL 4.2-5.4 [facility] Blood hemoglobin measurement (mass/volume)on 09-29-2021 Hemoglobin (Bld) [Mass/Vol] 11.8 g/dL 12.0-15.0 [facility] Work Phone: Blood lymphocytes/100 leukoc yteson 09-29-2021 Lymphocytes/100 WBC (Bld) 35.7 % 19-41 [facility] Work Phone: Blood monocytes/100 leukocyt eson 09-29-2021 Monocytes/100 WBC (Bld) 8.6 % 0-10 [facility] Work Phone: Blood platelet mean volumeon 09-29-2021 Platelet mean volume (Bld) [Entitic vol] 11.0 fL 6.2-12.0 [facility] Work Phone: Determination of erythrocyte mean corpuscular volume (MCV)on 09-29-2021 MCV (RBC) [Entitic vol] 84.3 fL 81-99 [facility] Work Phone: Hematocrit Auto (Bld) [Volum e fraction]on 09-29-2021 Hematocrit (Bld) [Volume fraction] 37.7 % 37-47 [facility] Work Phone: Laboratory - Chemistry and C hemistry - challengeon 09-29-2021 ALP [Catalytic activity/Vol] 84 U/L 45-117 [facility] Work Phone: ALT [Catalytic activity/Vol] 27 U/L 13-56 [facility] Work Phone: CO2 [Moles/Vol] 23.0 mmol/L 21.0-32.0 [facility] Work Phone: Globulin (S) [Mass/Vol] 3.7 g/dL 2.2-4.2 [facility] Work Phone: Urea nitrogen/Creatinine [Mass ratio] 16.7 mg/mg 10-20 [facility] Work Phone: Laboratory - Hematology and Cell countson 09-29-2021 Erythrocyte distribution width (RBC) [Entitic vol] 46.1 fL 35.1-43.9 [facility] Work Phone: Erythrocyte distribution width (RBC) [Ratio] 15.0 % 11.6-14.6 [facility] Work Phone: Immature granulocytes/100 WBC (Bld) 0.400 % 0.0-0.9 [facility] Work Phone: Comment on above: IG% - Immature Granu locytes (promyelocytes, myelocytes and metamyelocytes) > 1% indicates that a LEFT SHIFT is Present. MCH (RBC) [Entitic mass] 26.4 pg 27.0-32.0 [facility] Work Phone: Nucleated RBC/100 WBC (Bld) [Ratio] 0 % 0-5 [facility] Work Phone: MCHC Auto (RBC) [Mass/Vol]on 09-29-2021 MCHC (RBC) [Mass/Vol] 31.3 g/dL 32-36 [facility] Work Phone: No Panel Informationon 09-29 Estimated GFR (MDRD) Amer 88 mL/min >60 [facility] Work Phone: Comment on above: GFR Calc Estimated GFR (MDRD) Non-Af Amer 73 mL/min >60 [facility] Work Phone: Comment on above: Non- GFR Calc Thyroid Stimulating Hormone (TSH) 1.20 uIU/mL 0.358-3.74 [facility] Work Phone: Platelets bldon 09-29-2021 Platelets (Bld) [#/Vol] 260 10*3/uL 150-450 [facility] Work Phone: Serum or plasma albumin lakshmi urement (mass/volume)on 09-29-2021 Albumin [Mass/Vol] 3.4 g/dL 3.2-5.0 [facility] Work Phone: Serum or plasma albumin/glob ulin mass ratioon 09-29-2021 Albumin/Globulin [Mass ratio] 0.9 {ratio} 0.9-2.4 [facility] Work Phone: Serum or plasma calcium lakshmi urement (mass/volume)on 09-29-2021 Calcium [Mass/Vol] 9.0 mg/dL 8.5-10.1 [facility] Work Phone: Serum or plasma creatinine m easurement (mass/volume)on 09-29-2021 Creatinine [Mass/Vol] 0.84 mg/dL 0.55-1.02 [facility] Work Phone: Comment on above: The validity of the calculated GFR & GFRAA in patients over 70 years has not been determined. Clinical correlation is essential. Serum or plasma urea nitroge n measurement (mass/volume)on 09-29-2021 Urea nitrogen [Mass/Vol] 14 mg/dL 7-18 [facility] Work Phone: Thin prep Papanicolaou smear with manual screeningon 09-29-2021 Thin prep Papanicolaou smear with manual screening 20 U/L 15-37 [facility] Work Phone: Thin prep Papanicolaou smear with manual screening 9 5-15 [facility] Work Phone: Absolute lymphocyte counton 07-30-2021 Lymphocytes Auto (Unsp spec) [#/Vol] 1.90 10*3/uL 0.83-4.51 [facility] Work Phone: Basophil percentageon 2021 Basophils/100 WBC (Bld) 1.1 % 0-1 [facility] Work Phone: Chloride [Moles/Vol] 107 mmol/L 98-107 [facility] Work Phone: Cholesterol [Mass/Vol] 198 mg/dL <200 [facility] Work Phone: Comment on above: <200 mg/dL Desirable 200-240 mg/dL Borderline >240 mg/dL High Risk Eosinophils/100 WBC (Bld) 2.4 % 0-5 [facility] Work Phone: Glucose [Mass/Vol] 111 mg/dL 74-106 [facility] Work Phone: Comment on above: Fasting Glucose resu lt from 100 to 125 mg/dL suggests IMPAIRED HOMEOSTASIS per A.D.A. criteria. Neutrophils (Bld) [#/Vol] 4.7 10*3/uL 2.0-7.7 [facility] Work Phone: Neutrophils/100 WBC (Bld) 63.1 % 47-70 [facility] Work Phone: Potassium [Moles/Vol] 3.5 mmol/L 3.5-5.1 [facility] Work Phone: Sodium [Moles/Vol] 139 mmol/L 136-145 [facility] Work Phone: Triglyceride [Mass/Vol] 131 mg/dL [facility] Work Phone: Comment on above: The drugs N-Acetylcy steine and Metamizole may falsely depress this assay.Serum Triglycerides Reference Interval Normal <150 mg/dL Borderline high 150 - 199 mg/dL High 200 - 499 mg/dL Very High > or = 500 mg/dL WBC (Bld) [#/Vol] 7.4 10*3/uL 4.4-11.0 [facility] Work Phone: Blood erythrocytes count (nu mber/volume)on 07-30-2021 RBC (Bld) [#/Vol] 4.69 10*6/uL 4.2-5.4 [facility] Work Phone: Blood hemoglobin measurement (mass/volume)on 07-30-2021 Hemoglobin (Bld) [Mass/Vol] 12.6 g/dL 12.0-15.0 [facility] Work Phone: Blood lymphocytes/100 leukoc yteson 07-30-2021 Lymphocytes/100 WBC (Bld) 25.8 % 19-41 [facility] Work Phone: Blood monocytes/100 leukocyt eson 07-30-2021 Monocytes/100 WBC (Bld) 7.2 % 0-10 [facility] Work Phone: Blood platelet mean volumeon 07-30-2021 Platelet mean volume (Bld) [Entitic vol] 11.0 fL 6.2-12.0 [facility] Work Phone: Determination of erythrocyte mean corpuscular volume (MCV)on 07-30-2021 MCV (RBC) [Entitic vol] 85.1 fL 81-99 [facility] Work Phone: Hematocrit Auto (Bld) [Volum e fraction]on 07-30-2021 Hematocrit (Bld) [Volume fraction] 39.9 % 37-47 [facility] Work Phone: Laboratory - Chemistry and C hemistry - challengeon 07-30-2021 CO2 [Moles/Vol] 26.0 mmol/L 21.0-32.0 [facility] Work Phone: Cobalamin (Vitamin B12) [Mass/Vol] 578 pg/mL 211-911 [facility] Work Phone: Magnesium [Mass/Vol] 2.5 mg/dL 1.6-2.6 [facility] Work Phone: Urea nitrogen/Creatinine [Mass ratio] 15.3 mg/mg 10-20 [facility] Work Phone: Laboratory - Hematology and Cell countson 07-30-2021 Erythrocyte distribution width (RBC) [Entitic vol] 44.1 fL 35.1-43.9 [facility] Work Phone: Erythrocyte distribution width (RBC) [Ratio] 14.3 % 11.6-14.6 [facility] Work Phone: Immature granulocytes/100 WBC (Bld) 0.400 % 0.0-0.9 [facility] Work Phone: Comment on above: IG% - Immature Granu locytes (promyelocytes, myelocytes and metamyelocytes) > 1% indicates that a LEFT SHIFT is Present. MCH (RBC) [Entitic mass] 26.9 pg 27.0-32.0 [facility] Work Phone: Nucleated RBC/100 WBC (Bld) [Ratio] 0 % 0-5 [facility] Work Phone: MCHC Auto (RBC) [Mass/Vol]on 07-30-2021 MCHC (RBC) [Mass/Vol] 31.6 g/dL 32-36 [facility] Work Phone: No Panel Informationon 07-30 Estimated GFR (MDRD) Amer 105 mL/min >60 [facility] Work Phone: Comment on above: GFR Calc Estimated GFR (MDRD) Non-Af Amer 87 mL/min >60 [facility] Work Phone: Comment on above: Non- GFR Calc Thyroid Stimulating Hormone (TSH) 1.10 uIU/mL 0.358-3.74 [facility] Work Phone: Platelets bldon 07-30-2021 Platelets (Bld) [#/Vol] 276 10*3/uL 150-450 [facility] Work Phone: Serum or plasma calcium lakshmi urement (mass/volume)on 07-30-2021 Calcium [Mass/Vol] 9.2 mg/dL 8.5-10.1 [facility] Work Phone: Serum or plasma cholesterol in HDL measurement (mass/volume)on 07-30-2021 Cholesterol in HDL [Mass/Vol] 39 mg/dL [facility] Work Phone: Comment on above: The drugs N-Acetylcy steine and Metamizole may falsely depress this assay. Reference Range HDL <40 mg/dL Low HDL Cholesterol HDL >or= 60 mg/dL High HDL Cholesterol Serum or plasma cholesterol in VLDL measurement (mass/volume)on 07-30-2021 Cholesterol in VLDL [Mass/Vol] 26 mg/dL 5-40 [facility] Work Phone: Serum or plasma creatinine m easurement (mass/volume)on 07-30-2021 Creatinine [Mass/Vol] 0.72 mg/dL 0.55-1.02 [facility] Work Phone: Comment on above: The validity of the calculated GFR & GFRAA in patients over 70 years has not been determined. Clinical correlation is essential. Serum or plasma ferritin jeni surement (mass/volume)on 07-30-2021 Ferritin [Mass/Vol] 61 ng/mL 8-252 [facility] Work Phone: Serum or plasma low density lipoprotein (LDL) cholesterol measurement (mass/volume)on 07-30-2021 Cholesterol in LDL [Mass/Vol] 133 mg/dL 0-130 [facility] Work Phone: Serum or plasma urea nitroge n measurement (mass/volume)on 07-30-2021 Urea nitrogen [Mass/Vol] 11 mg/dL 7-18 [facility] Work Phone: Thin prep Papanicolaou smear with manual screeningon 07-30-2021 Thin prep Papanicolaou smear with manual screening 6 5-15 [facility] Work Phone: CNOVon 12-14-2016 CNOV Office Visit ([facility]) CLARIBEL SAM ([id number]) 1955 FDate Time Provider Department12/14/16 3:00 PM AILYN MEDEIROS (SONAL) [facility] During your visit today, we recorded the following information about you: Temperature Pulse Respiration Blood pressure 99 degrees 78/minute 16/minute 172/88 Weight 83.9 kgAilyn Medeiros CNP 12/14/2016 4:35 PM SignedPatient is a 61 year old female presenting with knee pain. The history isprovided by the patient. No chinese language professor was used.Knee PainPertinent negatives include no fever.HPI Claribel Allison is a 61 year old female who presents today for CC of leftknee pain This started 3 weeks ago when she was at work and the toe motorpushed skid of pallets into her knee. Initially she did not have muchproblems, but the past 2 days it has worsened significantly. Initially shedidn't do any treatment but ice, over the past couple days she has usedibuprofen with relief. Symptoms are worsened by walking. Risk factors traumato the knee. PMH previous injury to same knee 5 years ago, no intervention.Review of SystemsConstitutional: Negative. Negative for chills, fever and malaise/fatigue.HENT: Negative for congestion, ear pain and sore throat.Respiratory: Negative for cough, sputum production, shortness of breath andwheezing.Cardiovascu lar: Negative for chest pain.Musculoskeletal: Positive for joint pain (left knee, swelling, pain withmovement and touch on inner lateral knee). Negative for myalgias.Skin: Negative for rash.Neurological: Negative for headaches.Physical ExamConstitutional: She is oriented to person, place, and time and well-developed,well-nou rished, and in no distress. No distress.HENT:Head: Normocephalic and atraumatic.Eyes: Conjunctivae and EOM are normal. Pupils are equal, round, and reactive tolight.Neck: Normal range of motion. Neck supple.Pulmonary/Chest: Effort normal.Musculoskeletal: Left knee: She exhibits decreased range of motion, swelling and abnormalmeniscus. She exhibits no effusion, no ecchymosis, no deformity, no laceration,no erythema, normal alignment, no LCL laxity, no bony tenderness and no MCLlaxity. Tenderness found. Lateral joint line tenderness noted. No medial jointline, no MCL, no LCL and no patellar tendon tenderness noted. Legs:Neurological: She is alert and oriented to person, place, and time.Skin: Skin is warm and dry.Psychiatric: Affect normal.Nursing note and vitals reviewed.ASSESSMENT/DUKE N:1. Acute pain of left knee - ICD9: 719.46, ICD10: M25.562Rest, ice, elevation, BHAVIN wrap or splint as applied, pain medications asdiscussedTylenol or motrin/Advil/ibuprofen as needed for painOrtho referral placeMedrol dose pack- XR KNEE AP/LAT LT - interpreted by DIOGENES BUCIO MD? IMPRESSION: ?Findings are suggestive of osteoarthritis of the left kneewith small joint effusion. ?Overall findings worsened.FINDINGS:Left knee:No fractures or subluxations are noted.Interval worsening of medial compartmental joint space narrowing.There is tricompartmental osteophyte formation.There appears to be varus deformity.There is a small joint effusion.The mineralization of the bones is normal.There is no significant soft tissue swelling.Diagnosis and treatment plan were discussed and questions were answered to thepatient's satisfaction. Pt acknowledged understanding of concepts and follow upplan.Specific signs and symptoms that would indicate the need for higher level ofcare were discussed in detail warranting prompt ER evaluation.Rl Broussard CNP 12/14/2016 3:45 PM SignedASSESSMENT/PLAN:1 . Acute pain of left knee - ICD9: 719.46, ICD10: M25.562Rest, ice, elevation, BHAVIN wrap or splint as applied, pain medications asdiscussedTylenol or motrin/Advil/ibuprofen as needed for painOrtho referral placeMedrol dose pack- XR KNEE AP/LAT LTReferring Provider: SELF [200]Allergies As of Date: 12/14/2016 Noted Allergy ReactionDARVOCET A500 (PROPOXYPHENE N-BHAVIN*12/14/2016 4 - HivesDate Reviewed: 12/14/2016Reviewed by: Jolene Santiago Ma - Fully AssessedReason for Visit: Knee Pain [132] Cmt: left knee pain hit with skid x 3 weeksPrimary Visit Diagnosis:Acute pain of left knee [M25.562]Order(s):XR KNEE AP/LAT LT [[id number]] Order #: [id number]. #:[id number] methylPREDNISolone (MEDROL, ABBIE,) 4 mg Dose-PackFollow dosing instructions, take with food.Disp: 1 PackageRfl: 0 CONSULT TO ORTHOPAEDICS [9026] Order #: [id number]: 1Prescriptions as of 12/14/2016 Sig: METHYLPREDNISOLONE 4 MG TABLE* Follow dosing instructions, t*Medication notes this encounter MELOXICAM 15 MG TABLET >> Jolene Santiago Ma 12/14/2016 3:03 PM >> JOLENE SANTIAGO MA MonDec 14, 2016 3:03 PM done TRAMADOL 50 MG TABLET >> Jolene Santiago Ma 12/14/2016 3:03 PM >> JOLENE SANTIAGO MA MonDec 14, 2016 3:03 PM done ESCITALOPRAM 10 MG TABLET >> Jolene Santiago Ma 12/14/2016 3:03 PM >> JOLENE SANTIAGO MA MonDec 14, 2016 3:03 PM doneProblem List As Of Date 12/14/2016 Noted Resolved CALCANEAL SPUR [M77.30] INVALID FOR* Other instructions from your clinician: ASSESSMENT/PLAN: 1. Acute pain of left knee - ICD9: 719.46, ICD10: M25.562 Rest, ice, elevation, BHAVIN wrap or splint as applied, pain medications as discussed Tylenol or motrin/Advil/ibuprofen as needed for pain Ortho referral place Medrol dose pack - XR KNEE AP/LAT LTPrescriptions ordered this encounter Disp Refills Start End METHYLPREDNISOLONE 4 MG TABLETS IN A* 1 Pa* 0 12/14/2016 12/20/2016 Sig: Follow dosing instructions, take with food.Medications Discontinued During This Encounter meloxicam 15 mg tablet 15 t* 1 04/05/2013 12/14/2016 Route: ORAL Sig: Take 1 tablet by mouth once daily. Take with food. For right knee pain Disc: Course of therapy completed escitalopram 10 mg tablet 90 t* 3 04/05/2013 12/14/2016 Route: ORAL Sig: Take 1 tablet by mouth once daily. Disc: Course of therapy completed traMADol (ULTRAM) 50 mg tablet 20 t* 0 04/05/2013 12/14/2016 Route: ORAL Sig: Take 1 tablet by mouth twice daily as needed for Pain. Disc: Course of therapy completedEncounter Number: [id number] Status:Closed by AILYN MEDEIROS CNP on 12/14/16 [facility] PROGRESSon 12-14-2016 PROGRESS HNO ID: [id number]: Ailyn (Sonal) FulkService: (none)Author Type: Nurse PractitionerType: Progress NotesFiled: 12/14/2016 4:35 PMNote Text:Patient is a 61 year old female presenting with knee pain. The history isprovided by the patient. No chinese language professor was used.Knee PainPertinent negatives include no fever.HPI Claribel Allison is a 61 year old female who presents today for ofleft knee pain This started 3 weeks ago when she was at work and the toemotor pushed skid of pallets into her knee. Initially she did not havemuch problems, but the past 2 days it has worsened significantly.Initially she didn't do any treatment but ice, over the past couple daysshe has used ibuprofen with relief. Symptoms are worsened by walking.Risk factors trauma to the knee. PMH previous injury to same knee 5 yearsago, no intervention.Review of SystemsConstitutional: Negative. Negative for chills, fever and malaise/fatigue.HENT: Negative for congestion, ear pain and sore throat.Respiratory: Negative for cough, sputum production, shortness of breathand wheezing.Cardiovascular : Negative for chest pain.Musculoskeletal: Positive for joint pain (left knee, swelling, pain withmovement and touch on inner lateral knee). Negative for myalgias.Skin: Negative for rash.Neurological: Negative for headaches.Physical ExamConstitutional: She is oriented to person, place, and time andwell-developed, well-nourished, and in no distress. No distress.HENT:Head: Normocephalic and atraumatic.Eyes: Conjunctivae and EOM are normal. Pupils are equal, round, andreactive to light.Neck: Normal range of motion. Neck supple.Pulmonary/Chest: Effort normal.Musculoskeletal: Left knee: She exhibits decreased range of motion, swelling andabnormal meniscus. She exhibits no effusion, no ecchymosis, no deformity,no laceration, no erythema, normal alignment, no LCL laxity, no bonytenderness and no MCL laxity. Tenderness found. Lateral joint linetenderness noted. No medial joint line, no MCL, no LCL and no patellartendon tenderness noted. Legs:Neurological: She is alert and oriented to person, place, and time.Skin: Skin is warm and dry.Psychiatric: Affect normal.Nursing note and vitals reviewed.ASSESSMENT/DUKE N:1. Acute pain of left knee - ICD9: 719.46, ICD10: M25.562Rest, ice, elevation, BHAVIN wrap or splint as applied, pain medications asdiscussedTylenol or motrin/Advil/ibuprofen as needed for painOrtho referral placeMedrol dose pack- XR KNEE AP/LAT LT - interpreted by DIOGENES BUCIO MD? IMPRESSION: ?Findings are suggestive of osteoarthritis of the left kneewith small joint effusion. ?Overall findings worsened.FINDINGS:Left knee:No fractures or subluxations are noted.Interval worsening of medial compartmental joint space narrowing.There is tricompartmental osteophyte formation.There appears to be varus deformity.There is a small joint effusion.The mineralization of the bones is normal.There is no significant soft tissue swelling.Diagnosis and treatment plan were discussed and questions were answered tothe patient's satisfaction. Pt acknowledged understanding of concepts andfollow up plan.Specific signs and symptoms that would indicate the need for higher levelof care were discussed in detail warranting prompt ER evaluation.Ailyn Medeiros, SONAL [facility] PROGRESS HNO ID: [id number]: Yanet Patton (Rt) Johann Irving: (none)Author Type: TechnicianType: Progress NotesFiled: 12/14/2016 3:26 PMNote Text: Radiology Service Progress NotePATIENT NAME: Claribel AllisonMRN: [id number] OF SERVICE: December 14, 2016TIME: 3:26 PMPATIENT IDENTITY VERIFICATION COMPLETED USING TWO (2) METHODS: Patientconfirmed name verbally and Date of .PATIENT GENDER DATA: Female. status: : NoBreastfeeding status: NO.PATIENT RELEVANT IMPLANT DATA REVIEWED: Not ApplicableRADIOLOGY DEPARTMENT: General X-ray: Exam(s) Completed: Lower ExtremityX-Ray(s): Knee, AP / LAT Left:PERIPHERAL IV DATA: Not applicableSIGNED BY: Erasmo Quiroz 2016 3:26 PM [facility] XR KNEE AP/LATon 12-14-2016 XR KNEE AP/LAT * * *Final Report* * *DATE OF EXAM: Dec 14 2016 3:28PM WOX [id number] - XR KNEE AP/LAT - LEFT / REASON: Pain in left knee * * * * Physician Interpretation * * * * EXAM TITLE: XR KNEE AP/LAT LDATE: 12/14/2016COMPARISON: X-ray on 04/05/2013CLINICAL INDICATION/HISTORY: Left knee painTECHNIQUE: AP and lateral views of the left knee are presented.FINDINGS:Left knee:No fractures or subluxations are noted.Interval worsening of medial compartmental joint space narrowing.There is tricompartmental osteophyte formation.There appears to be varus deformity.There is a small joint effusion.The mineralization of the bones is normal.There is no significant soft tissue swelling.Right knee: Degenerative changes.IMPRESSION: Findings are suggestive of osteoarthritis of the left knee with small joint effusion. Overall findings worsened.Transcriptioni st: PSCB Transcribe Date/Time: Dec 14 2016 3:36PDictated by : DIOGENES BUCIO MDThis examination was interpreted and the report reviewed and electronically signed by: DIOGENES BUCIO MD on Dec 14 2016 3:40PM EST [facility] Vital Signs Date Time Vital Sign Value Performing Clinician Brtet arredondo 11-25-2024 12:34-0400 Body height 165.[address] Abdulaziz Ackerman MD Work Phone: [facility] 11-25-2024 12:34-0400 Body mass index (BMI) [Ratio] 32.1 kg/m2 Dr. Abdulaziz Ackerman MD Work Phone: [facility] 11-25-2024 12:34-0400 Body temperature 99.6 [degF] Dr. Abdulaziz Ackerman MD Work Phone: [facility] 11-25-2024 12:34-0400 Body weight 87.[address] Abdulaziz Ackerman MD Work Phone: [facility] 11-25-2024 12:34-0400 Diastolic blood pressure 80 mm[Hg] Dr. Abdulaziz Ackerman MD Work Phone: [facility] 11-25-2024 12:34-0400 Heart rate 92 /min Dr. Abdulaziz Ackerman MD Work Phone: [facility] 11-25-2024 12:34-0400 Respiratory rate 22 /min Dr. Abdulaziz Ackerman MD Work Phone: [facility] 11-25-2024 12:34-0400 SaO2% (BldA) [Mass fraction] 99 % Dr. Abdulaziz Ackerman MD Work Phone: [facility] 11-25-2024 12:34-0400 Systolic blood pressure 138 mm[Hg] Dr. Abdulaziz Ackerman MD Work Phone: [facility] 10-25-2024 08:12-0400 Body height 165.[address] Abdulaziz Ackerman MD Work Phone: [facility] 10-25-2024 08:12-0400 Body mass index (BMI) [Ratio] 33.1 kg/m2 Dr. Abdulaziz Ackerman MD Work Phone: [facility] 10-25-2024 08:12-0400 Body temperature 98 [degF] Dr. Abdulaziz Ackerman MD Work Phone: [facility] 10-25-2024 08:12-0400 Body weight 90.[address] Abdulaziz Ackerman MD Work Phone: [facility] 10-25-2024 08:12-0400 Diastolic blood pressure 82 mm[Hg] Dr. Abdulaziz Ackerman MD Work Phone: [facility] 10-25-2024 08:12-0400 Heart rate 102 /min Dr. Abdulaziz Ackerman MD Work Phone: [facility] 10-25-2024 08:12-0400 Respiratory rate 18 /min Dr. Abdulaziz Ackerman MD Work Phone: [facility] 10-25-2024 08:12-0400 SaO2% (BldA) [Mass fraction] 93 % Dr. Abdulaziz Ackerman MD Work Phone: [facility] 10-25-2024 08:12-0400 Systolic blood pressure 144 mm[Hg] Dr. Abdulaziz Ackerman MD Work Phone: [facility] 09-27-2024 08:57-0400 Body height 165.[address] Abdulaziz Ackerman MD Work Phone: [facility] 09-27-2024 08:57-0400 Body mass index (BMI) [Ratio] 33.3 kg/m2 Dr. Abdulaziz Ackerman MD Work Phone: [facility] 09-27-2024 08:57-0400 Body temperature 97.6 [degF] Dr. Abdulaziz Ackerman MD Work Phone: [facility] 09-27-2024 08:57-0400 Body weight 90.[address] Abdulaziz Ackerman MD Work Phone: [facility] 09-27-2024 08:57-0400 Diastolic blood pressure 70 mm[Hg] Dr. Abdulaziz Ackerman MD Work Phone: [facility] 09-27-2024 08:57-0400 Heart rate 89 /min Dr. Abdulaziz Ackerman MD Work Phone: [facility] 09-27-2024 08:57-0400 Respiratory rate 20 /min Dr. Abdulaziz Ackerman MD Work Phone: [facility] 09-27-2024 08:57-0400 SaO2% (BldA) [Mass fraction] 99 % Dr. Abdulaziz Ackerman MD Work Phone: [facility] 09-27-2024 08:57-0400 Systolic blood pressure 120 mm[Hg] Dr. Abdulaziz Ackerman MD Work Phone: [facility] 09-06-2024 08:39-0400 Body mass index (BMI) [Ratio] 34.4 kg/m2 Dr. Abdulaziz Ackerman MD Work Phone: [facility] 09-06-2024 08:39-0400 Body temperature 96.7 [degF] Dr. Abdulaziz Ackerman MD Work Phone: [facility] 09-06-2024 08:39-0400 Body weight 94.[address] Abdulaziz Ackerman MD Work Phone: [facility] 09-06-2024 08:39-0400 Diastolic blood pressure 78 mm[Hg] Dr. Abdulaziz Ackerman MD Work Phone: [facility] 09-06-2024 08:39-0400 Heart rate 97 /min Dr. Abdulaziz Ackerman MD Work Phone: [facility] 09-06-2024 08:39-0400 Respiratory rate 20 /min Dr. Abdulaziz Ackerman MD Work Phone: [facility] 09-06-2024 08:39-0400 SaO2% (BldA) [Mass fraction] 97 % Dr. Abdulaziz Ackerman MD Work Phone: [facility] 09-06-2024 08:39-0400 Systolic blood pressure 130 mm[Hg] Dr. Abdulaziz Ackerman MD Work Phone: [facility] 08-25-2024 09:00-0400 Body temperature 98.3 [degF] Dr. Abdulaziz Ackerman MD Work Phone: [facility] 08-25-2024 09:00-0400 Diastolic blood pressure 72 mm[Hg] Dr. Abdulaziz cAkerman MD Work Phone: [facility] 08-25-2024 09:00-0400 Heart rate 82 /min Dr. Abdulaziz Ackerman MD Work Phone: [facility] 08-25-2024 09:00-0400 Respiratory rate 20 /min Dr. Abdulaziz Ackerman MD Work Phone: [facility] 08-25-2024 09:00-0400 SaO2% (BldA) [Mass fraction] 94 % Dr. Abdulaziz Ackerman MD Work Phone: [facility] 08-25-2024 09:00-0400 Systolic blood pressure 138 mm[Hg] Dr. Abdulaziz Ackerman MD Work Phone: [facility] 08-25-2024 05:29-0400 Body mass index (BMI) [Ratio] 34.9 kg/m2 Dr. Abdulaziz Ackerman MD Work Phone: [facility] 08-25-2024 05:29-0400 Body weight 95.[address] Abdulaziz Ackerman MD Work Phone: [facility] 08-22-2024 09:16-0400 Body height 165.[address] Abdulaziz Ackerman MD Work Phone: [facility] 08-22-2024 07:13-0400 Inhaled oxygen flow rate 3 L/min Dr. Abdulaziz Ackerman MD Work Phone: [facility] 08-21-2024 14:20-0400 Body temperature 97.1 [degF] Dr. Abdulaziz Ackerman MD Work Phone: [facility] 08-21-2024 14:20-0400 Diastolic blood pressure 80 mm[Hg] Dr. Abdulaziz Ackerman MD Work Phone: [facility] 08-21-2024 14:20-0400 Heart rate 86 /min Dr. Abdulaziz Ackerman MD Work Phone: [facility] 08-21-2024 14:20-0400 Inhaled oxygen flow rate 3 L/min Dr. Abdulaziz Ackerman MD Work Phone: [facility] 08-21-2024 14:20-0400 Respiratory rate 22 /min Dr. Abdulaziz Ackerman MD Work Phone: [facility] 08-21-2024 14:20-0400 SaO2% (BldA) [Mass fraction] 94 % Dr. Abdulaziz Ackerman MD Work Phone: [facility] 08-21-2024 14:20-0400 Systolic blood pressure 119 mm[Hg] Dr. Abdulaziz Ackerman MD Work Phone: [facility] 08-21-2024 11:10-0400 Body height 165.[address] Abdulaziz Ackerman MD Work Phone: [facility] 08-21-2024 11:10-0400 Body mass index (BMI) [Ratio] 36.8 kg/m2 Dr. Abdulaziz Ackerman MD Work Phone: [facility] 08-21-2024 11:10-0400 Body weight 100.[address] Abdulaziz Ackerman MD Work Phone: [facility] 07-31-2024 09:26-0400 Body height 165.[address] Abdulaziz Ackerman MD Work Phone: [facility] 07-31-2024 09:26-0400 Body mass index (BMI) [Ratio] 33.3 kg/m2 Dr. Abdulaziz Ackerman MD Work Phone: [facility] 07-31-2024 09:26-0400 Body temperature 97.9 [degF] Dr. Abdulaziz Ackerman MD Work Phone: [facility] 07-31-2024 09:26-0400 Body weight 90.[address] Abdulaziz Ackerman MD Work Phone: [facility] 07-31-2024 09:26-0400 Diastolic blood pressure 76 mm[Hg] Dr. Abdulaziz Ackerman MD Work Phone: [facility] 07-31-2024 09:26-0400 Heart rate 92 /min Dr. Abdulaziz Ackerman MD Work Phone: [facility] 07-31-2024 09:26-0400 Respiratory rate 20 /min Dr. Abdulaziz Ackerman MD Work Phone: [facility] 07-31-2024 09:26-0400 SaO2% (BldA) [Mass fraction] 92 % Dr. Abdulaziz Ackerman MD Work Phone: [facility] 07-31-2024 09:26-0400 Systolic blood pressure 122 mm[Hg] Dr. Abdulaziz Ackerman MD Work Phone: [facility] 07-24-2024 14:18-0500 Body mass index (BMI) [Ratio] 35.4 kg/m2 Dr. Abdulaziz Ackerman MD Work Phone: [facility] 07-24-2024 14:18-0500 Body temperature 98.2 [degF] Dr. Abdulaziz Ackerman MD Work Phone: [facility] 07-24-2024 14:18-0500 Body weight 96.[address] Abdulaziz Ackerman MD Work Phone: [facility] 07-24-2024 14:18-0500 Diastolic blood pressure 72 mm[Hg] Dr. Abdulaziz Ackerman MD Work Phone: [facility] 07-24-2024 14:18-0500 Heart rate 63 /min Dr. Abdulaziz Ackerman MD Work Phone: [facility] 07-24-2024 14:18-0500 Respiratory rate 19 /min Dr. Abdulaziz Ackerman MD Work Phone: [facility] 07-24-2024 14:18-0500 SaO2% (BldA) [Mass fraction] 93 % Dr. Abdulaziz Ackerman MD Work Phone: [facility] 07-24-2024 14:18-0500 Systolic blood pressure 130 mm[Hg] Dr. Abdulaziz Ackerman MD Work Phone: [facility] 07-28-2023 08:07-0500 Body height 165.[address] Abdulaziz Ackerman Work Phone: [facility] 07-28-2023 08:07-0500 Body mass index (BMI) [Ratio] 29.8 kg/m2 Dr. Abdulaziz Ackerman Work Phone: [facility] 07-28-2023 08:07-0500 Body temperature 97.7 [degF] Dr. Abdulaziz Ackerman Work Phone: [facility] 07-28-2023 08:07-0500 Body weight 81.[address] Abdulaziz Ackerman Work Phone: [facility] 07-28-2023 08:07-0500 Diastolic blood pressure 86 mm[Hg] Dr. Abdulaziz Ackerman Work Phone: [facility] 07-28-2023 08:07-0500 Heart rate 61 /min Dr. Abdulaziz Ackerman Work Phone: [facility] 07-28-2023 08:07-0500 Respiratory rate 16 /min Dr. Abdulaziz Ackerman Work Phone: [facility] 07-28-2023 08:07-0500 SaO2% (BldA) [Mass fraction] 99 % Dr. Abdulaziz Ackerman Work Phone: [facility] 07-28-2023 08:07-0500 Systolic blood pressure 136 mm[Hg] Dr. Abdulaziz Ackerman Work Phone: [facility] 06-13-2023 14:23-0500 Body height 165.[address] Abdulaziz Ackerman Work Phone: [facility] 06-13-2023 14:23-0500 Body mass index (BMI) [Ratio] 29.6 kg/m2 Dr. Abdulaziz Ackerman Work Phone: [facility] 06-13-2023 14:23-0500 Body temperature 97.2 [degF] Dr. Abdulaziz Ackerman Work Phone: [facility] 06-13-2023 14:23-0500 Body weight 80.[address] Abdulaziz Ackerman Work Phone: [facility] 06-13-2023 14:23-0500 Diastolic blood pressure 80 mm[Hg] Dr. Abdulaziz Ackerman Work Phone: [facility] 06-13-2023 14:23-0500 Heart rate 54 /min Dr. Abdulaziz Ackerman Work Phone: [facility] 06-13-2023 14:23-0500 Respiratory rate 16 /min Dr. Abdulaziz Ackerman Work Phone: [facility] 06-13-2023 14:23-0500 SaO2% (BldA) [Mass fraction] 98 % Dr. Abdulaziz Ackerman Work Phone: [facility] 06-13-2023 14:23-0500 Systolic blood pressure 140 mm[Hg] Dr. Abdulaizz Ackerman Work Phone: [facility] 03-07-2023 12:17-0400 Body height 165.[address] Abdulaziz Ackerman Work Phone: [facility] 03-07-2023 12:17-0400 Body mass index (BMI) [Ratio] 29.2 kg/m2 Dr. Abdulaziz Ackerman Work Phone: [facility] 03-07-2023 12:17-0400 Body temperature 98.1 [degF] Dr. Abdulaziz Ackerman Work Phone: [facility] 03-07-2023 12:17-0400 Body weight 79.[address] Abdulaziz Ackerman Work Phone: [facility] 03-07-2023 12:17-0400 Diastolic blood pressure 78 mm[Hg] Dr. Abdulaziz Ackerman Work Phone: [facility] 03-07-2023 12:17-0400 Heart rate 82 /min Dr. Abdulaziz Ackerman Work Phone: [facility] 03-07-2023 12:17-0400 Respiratory rate 18 /min Dr. Abdulaziz Ackerman Work Phone: [facility] 03-07-2023 12:17-0400 SaO2% (BldA) [Mass fraction] 93 % Dr. Abdulaziz Ackerman Work Phone: [facility] 03-07-2023 12:17-0400 Systolic blood pressure 156 mm[Hg] Dr. Abdulaziz Ackerman Work Phone: [facility] 12-29-2022 13:41-0400 Body mass index (BMI) [Ratio] 32.5 kg/m2 Dr. Abdulaziz Ackerman Work Phone: [facility] 12-29-2022 13:41-0400 Body temperature 97.7 [degF] Dr. Abdulaziz Ackerman Work Phone: [facility] 12-29-2022 13:41-0400 Body weight 80.[address] Abdulaziz Ackerman Work Phone: [facility] 12-29-2022 13:41-0400 Diastolic blood pressure 82 mm[Hg] Dr. Abdulaziz Ackerman Work Phone: [facility] 12-29-2022 13:41-0400 Heart rate 74 /min Dr. Abdulaziz Ackerman Work Phone: [facility] 12-29-2022 13:41-0400 Respiratory rate 18 /min Dr. Abdulaziz Ackerman Work Phone: [facility] 12-29-2022 13:41-0400 SaO2% (BldA) [Mass fraction] 98 % Dr. Abdulaziz Ackerman Work Phone: [facility] 12-29-2022 13:41-0400 Systolic blood pressure 126 mm[Hg] Dr. Abdulaziz Ackerman Work Phone: [facility] 12-14-2022 15:39-0400 Body weight 81.[address] Abdulaziz Ackerman Work Phone: [facility] 12-07-2022 15:37-0400 Body temperature 98.6 [degF] Dr. Abdulaziz Ackerman Work Phone: [facility] 12-07-2022 15:37-0400 Body weight 81.[address] Abdulaziz Ackerman Work Phone: [facility] 12-07-2022 15:37-0400 Diastolic blood pressure 68 mm[Hg] Dr. Abdulaziz Ackerman Work Phone: [facility] 12-07-2022 15:37-0400 Heart rate 88 /min Dr. Abdulaziz Ackerman Work Phone: [facility] 12-07-2022 15:37-0400 Respiratory rate 18 /min Dr. Abdulaziz Ackerman Work Phone: [facility] 12-07-2022 15:37-0400 SaO2% (BldA) [Mass fraction] 97 % Dr. Abdulaziz Ackerman Work Phone: [facility] 12-07-2022 15:37-0400 Systolic blood pressure 102 mm[Hg] Dr. Abdulaziz Ackerman Work Phone: [facility] 11-18-2022 13:34-0400 Body temperature 97 [degF] Dr. Abdulaziz Ackerman Work Phone: [facility] 11-18-2022 13:34-0400 Diastolic blood pressure 58 mm[Hg] Dr. Abdulaziz Ackerman Work Phone: [facility] 11-18-2022 13:34-0400 Heart rate 64 /min Dr. Abdulaziz Ackerman Work Phone: [facility] 11-18-2022 13:34-0400 Respiratory rate 19 /min Dr. Abdulaziz Ackerman Work Phone: [facility] 11-18-2022 13:34-0400 SaO2% (BldA) [Mass fraction] 95 % Dr. Abdulaziz Ackerman Work Phone: [facility] 11-18-2022 13:34-0400 Systolic blood pressure 125 mm[Hg] Dr. Abdulaziz Ackerman Work Phone: [facility] 11-17-2022 10:19-0400 Body height 162.[address] Abdulaziz Ackerman Work Phone: [facility] 11-17-2022 10:19-0400 Body mass index (BMI) [Ratio] 31 kg/m2 Dr. Abdulaziz Ackerman Work Phone: [facility] 11-17-2022 10:19-0400 Body weight 82.[address] Abdulaziz Ackerman Work Phone: [facility] 11-17-2022 09:01-0400 Body temperature 98 [degF] Dr. Abdulaziz Ackerman Work Phone: [facility] 11-17-2022 09:01-0400 Diastolic blood pressure 79 mm[Hg] Dr. Abdulaziz Ackerman Work Phone: [facility] 11-17-2022 09:01-0400 Heart rate 76 /min Dr. Abdulaziz Ackerman Work Phone: [facility] 11-17-2022 09:01-0400 Respiratory rate 20 /min Dr. Abdulaziz Ackerman Work Phone: [facility] 11-17-2022 09:01-0400 SaO2% (BldA) [Mass fraction] 96 % Dr. Abdulaziz Ackerman Work Phone: [facility] 11-17-2022 09:01-0400 Systolic blood pressure 149 mm[Hg] Dr. Abdulaziz Ackerman Work Phone: [facility] 11-17-2022 07:52-0400 Body mass index (BMI) [Ratio] 30.4 kg/m2 Dr. Abdulaziz Ackerman Work Phone: [facility] 11-17-2022 07:52-0400 Body weight 80.[address] Abdulaziz Ackerman Work Phone: [facility] 11-17-2022 07:31-0400 Body height 162.[address] Abdulaziz Ackerman Work Phone: [facility] 09-28-2022 13:13-0400 Body mass index (BMI) [Ratio] 31.4 kg/m2 Dr. Abdulaziz Ackerman Work Phone: [facility] 09-28-2022 13:13-0400 Body temperature 99.4 [degF] Dr. Abdulaziz Ackerman Work Phone: [facility] 09-28-2022 13:13-0400 Body weight [address] Abdulaziz Ackerman Work Phone: [facility] 09-28-2022 13:13-0400 Diastolic blood pressure 78 mm[Hg] Dr. Abdulaziz Ackerman Work Phone: [facility] 09-28-2022 13:13-0400 Heart rate 76 /min Dr. Abdulaziz Ackerman Work Phone: [facility] 09-28-2022 13:13-0400 Respiratory rate 16 /min Dr. Abdulaziz Ackerman Work Phone: [facility] 09-28-2022 13:13-0400 SaO2% (BldA) [Mass fraction] 95 % Dr. Abdulaziz Ackerman Work Phone: [facility] 09-28-2022 13:13-0400 Systolic blood pressure 126 mm[Hg] Dr. Abdulaziz Ackerman Work Phone: [facility] 07-29-2022 08:15-0500 Body height 162.[address] Abdulaziz Ackerman Work Phone: [facility] 07-29-2022 08:15-0500 Body mass index (BMI) [Ratio] 30.7 kg/m2 Dr. Abdulaziz Ackerman Work Phone: [facility] 07-29-2022 08:15-0500 Body temperature 97.6 [degF] Dr. Abdulaziz Ackerman Work Phone: [facility] 07-29-2022 08:15-0500 Body weight 81.[address] Abdulaziz Ackerman Work Phone: [facility] 07-29-2022 08:15-0500 Diastolic blood pressure 94 mm[Hg] Dr. Abdulaziz Ackerman Work Phone: [facility] 07-29-2022 08:15-0500 Heart rate 67 /min Dr. Abdulaziz Ackerman Work Phone: [facility] 07-29-2022 08:15-0500 Respiratory rate 18 /min Dr. Abdulaziz Ackerman Work Phone: [facility] 07-29-2022 08:15-0500 SaO2% (BldA) [Mass fraction] 99 % Dr. Abdulaziz Ackerman Work Phone: [facility] 07-29-2022 08:15-0500 Systolic blood pressure 142 mm[Hg] Dr. Abdulaziz Ackerman Work Phone: [facility] 05-26-2022 10:51-0500 Body height 162.[address] Abdulaziz Ackerman Work Phone: [facility] 05-26-2022 10:51-0500 Body mass index (BMI) [Ratio] 29.5 kg/m2 Dr. Abdulaziz Ackerman Work Phone: [facility] 05-26-2022 10:51-0500 Body temperature 98.6 [degF] Dr. Abdulaziz Ackerman Work Phone: [facility] 05-26-2022 10:51-0500 Body weight 78.[address] Abdulaziz Ackerman Work Phone: [facility] 05-26-2022 10:51-0500 Diastolic blood pressure 70 mm[Hg] Dr. Abdulaziz Ackerman Work Phone: [facility] 05-26-2022 10:51-0500 Heart rate 81 /min Dr. Abdulaziz Ackerman Work Phone: [facility] 05-26-2022 10:51-0500 Respiratory rate 16 /min Dr. Abdulaziz Ackerman Work Phone: [facility] 05-26-2022 10:51-0500 SaO2% (BldA) [Mass fraction] 97 % Dr. Abdulaziz Ackerman Work Phone: [facility] 05-26-2022 10:51-0500 Systolic blood pressure 116 mm[Hg] Dr. Abdulaziz Ackerman Work Phone: [facility] 03-21-2022 08:26-0400 Body height 162.[address] Abdulaziz Ackerman Work Phone: [facility] Work Phone: 03-21-2022 08:26-0400 Body mass index (BMI) [Ratio] 30 kg/m2 Dr. Abdulaziz Ackerman Work Phone: [facility] 03-21-2022 08:26-0400 Body temperature 98.5 [degF] Dr. Abdulaziz Ackerman Work Phone: [facility] 03-21-2022 08:26-0400 Body weight 79.[address] Abdulaziz Ackerman Work Phone: [facility] 03-21-2022 08:26-0400 Diastolic blood pressure 84 mm[Hg] Dr. Abdulaziz Ackerman Work Phone: [facility] 03-21-2022 08:26-0400 Heart rate 66 /min Dr. Abdulaziz Ackerman Work Phone: [facility] 03-21-2022 08:26-0400 Respiratory rate 14 /min Dr. Abdulaziz Ackerman Work Phone: [facility] 03-21-2022 08:26-0400 SaO2% (BldA) [Mass fraction] 97 % Dr. Abdulaziz Ackerman Work Phone: [facility] 03-21-2022 08:26-0400 Systolic blood pressure 138 mm[Hg] Dr. Abdulaziz Ackerman Work Phone: [facility] 02-17-2022 13:03-0400 Body mass index (BMI) [Ratio] 30.7 kg/m2 Dr. Abdulaziz Ackerman Work Phone: [facility] 02-17-2022 13:03-0400 Body temperature 97.9 [degF] Dr. Abdulaziz Ackerman Work Phone: [facility] 02-17-2022 13:03-0400 Body weight 81.[address] Abdulaziz Ackerman Work Phone: [facility] 02-17-2022 13:03-0400 Diastolic blood pressure 110 mm[Hg] Dr. Abdulaziz Ackerman Work Phone: [facility] 02-17-2022 13:03-0400 Heart rate 62 /min Dr. Abdulaziz Ackerman Work Phone: [facility] 02-17-2022 13:03-0400 Respiratory rate 16 /min Dr. Abdulaziz Ackerman Work Phone: [facility] 02-17-2022 13:03-0400 SaO2% (BldA) [Mass fraction] 96 % Dr. Abdulaziz Ackerman Work Phone: [facility] 02-17-2022 13:03-0400 Systolic blood pressure 160 mm[Hg] Dr. Abdulaziz Ackerman Work Phone: [facility] 02-08-2022 10:23-0400 Body mass index (BMI) [Ratio] 30.5 kg/m2 Dr. Abdulaziz Ackerman Work Phone: [facility] Work Phone: 02-08-2022 10:23-0400 Body temperature 97.9 [degF] Dr. Abdulaziz Ackerman Work Phone: [facility] Work Phone: 02-08-2022 10:23-0400 Body weight 80.[address] Abdulaziz Ackerman Work Phone: [facility] Work Phone: 02-08-2022 10:23-0400 Diastolic blood pressure 108 mm[Hg] Dr. Abdulaziz Ackerman Work Phone: [facility] Work Phone: 02-08-2022 10:23-0400 Heart rate 85 /min Dr. Abdulaziz Ackerman Work Phone: [facility] Work Phone: 02-08-2022 10:23-0400 Respiratory rate 16 /min Dr. Abdulaziz Ackerman Work Phone: [facility] Work Phone: 02-08-2022 10:23-0400 SaO2% (BldA) [Mass fraction] 95 % Dr. Abdulaziz Ackerman Work Phone: [facility] Work Phone: 02-08-2022 10:23-0400 Systolic blood pressure 170 mm[Hg] Dr. Abdulaziz Ackerman Work Phone: [facility] Work Phone: 01-04-2022 13:15-0400 Body weight 81.38 kg Homa Solis APRN.FINISH CARPENTER Work Phone: [facility] 01-04-2022 13:15-0400 Diastolic blood pressure 76 mm[Hg] Homa Solis APRN.FINISH CARPENTER Work Phone: [facility] 01-04-2022 13:15-0400 Systolic blood pressure 152 mm[Hg] Homa Solis APRN.FINISH CARPENTER Work Phone: [facility] 01-03-2022 08:02-0400 Body height 162.[address] Abdulaziz Ackerman Work Phone: [facility] Work Phone: 01-03-2022 08:02-0400 Body mass index (BMI) [Ratio] 30.7 kg/m2 Dr. Abdulaziz Ackerman Work Phone: [facility] Work Phone: 01-03-2022 08:02-0400 Body temperature 98.6 [degF] Dr. Abdulaziz Ackerman Work Phone: [facility] Work Phone: 01-03-2022 08:02-0400 Body weight 81.[address] Abdulaziz Ackerman Work Phone: [facility] Work Phone: 01-03-2022 08:02-0400 Diastolic blood pressure 110 mm[Hg] Dr. Abdulaziz Ackerman Work Phone: [facility] Work Phone: 01-03-2022 08:02-0400 Heart rate 76 /min Dr. Abdulaziz Ackerman Work Phone: [facility] Work Phone: 01-03-2022 08:02-0400 Respiratory rate 16 /min Dr. Abdulaziz Ackerman Work Phone: [facility] Work Phone: 01-03-2022 08:02-0400 SaO2% (BldA) [Mass fraction] 96 % Dr. Abdulaziz Ackerman Work Phone: [facility] Work Phone: 01-03-2022 08:02-0400 Systolic blood pressure 188 mm[Hg] Dr. Abdulaziz Ackerman Work Phone: [facility] Work Phone: 12-03-2021 10:45-0400 Body height 162.[address] Abdulaziz Ackerman Work Phone: [facility] Work Phone: 12-03-2021 10:45-0400 Body mass index (BMI) [Ratio] 33.7 kg/m2 Dr. Abdulaziz Ackerman Work Phone: [facility] Work Phone: 12-03-2021 10:45-0400 Body temperature 98.4 [degF] Dr. Abdulaziz Ackerman Work Phone: [facility] Work Phone: 12-03-2021 10:45-0400 Body weight 89.[address] Abdulaziz Ackerman Work Phone: [facility] Work Phone: 12-03-2021 10:45-0400 Diastolic blood pressure 88 mm[Hg] Dr. Abdulaziz Ackerman Work Phone: [facility] Work Phone: 12-03-2021 10:45-0400 Heart rate 71 /min Dr. Abdulaziz Ackerman Work Phone: [facility] Work Phone: 12-03-2021 10:45-0400 Respiratory rate 18 /min Dr. Abdulaziz Ackerman Work Phone: [facility] Work Phone: 12-03-2021 10:45-0400 SaO2% (BldA) [Mass fraction] 96 % Dr. Abdulaziz Ackerman Work Phone: [facility] Work Phone: 12-03-2021 10:45-0400 Systolic blood pressure 176 mm[Hg] Dr. Abdulaziz Ackerman Work Phone: [facility] Work Phone: 09-29-2021 15:02-0400 Body mass index (BMI) [Ratio] 31 kg/m2 Dr. Abdulaziz Ackerman Work Phone: [facility] Work Phone: 09-29-2021 15:02-0400 Body temperature 98.7 [degF] Dr. Abdulaziz Ackerman Work Phone: [facility] Work Phone: 09-29-2021 15:02-0400 Body weight 82.[address] Abdulaziz Ackerman Work Phone: [facility] Work Phone: 09-29-2021 15:02-0400 Diastolic blood pressure 78 mm[Hg] Dr. Abdulaziz Ackerman Work Phone: [facility] Work Phone: 09-29-2021 15:02-0400 Heart rate 70 /min Dr. Abdulaziz Ackerman Work Phone: [facility] Work Phone: 09-29-2021 15:02-0400 Respiratory rate 14 /min Dr. Abdulaziz Ackerman Work Phone: [facility] Work Phone: 09-29-2021 15:02-0400 SaO2% (BldA) [Mass fraction] 97 % Dr. Abdulaziz Ackerman Work Phone: [facility] Work Phone: 09-29-2021 15:02-0400 Systolic blood pressure 134 mm[Hg] Dr. Abdulaziz Ackerman Work Phone: [facility] Work Phone: 09-29-2021 15:02-0400 Body height 162.[address] Abdulaziz Ackerman Work Phone: [facility] Work Phone: 09-29-2021 15:02-0400 Body mass index (BMI) [Ratio] 31 kg/m2 Dr. Abdulaziz Ackerman Work Phone: [facility] Work Phone: 09-29-2021 15:02-0400 Body temperature 98.7 [degF] Dr. Abdulaziz Ackerman Work Phone: [facility] Work Phone: 09-29-2021 15:02-0400 Body weight 82.[address] Abdulaziz Ackerman Work Phone: [facility] Work Phone: 09-29-2021 15:02-0400 Diastolic blood pressure 78 mm[Hg] Dr. Abdulaziz Ackerman Work Phone: [facility] Work Phone: 09-29-2021 15:02-0400 Heart rate 70 /min Dr. Abdulaziz Ackerman Work Phone: [facility] Work Phone: 09-29-2021 15:02-0400 Respiratory rate 14 /min Dr. Abdulaziz Ackerman Work Phone: [facility] Work Phone: 09-29-2021 15:02-0400 SaO2% (BldA) [Mass fraction] 97 % Dr. Abdulaziz Ackerman Work Phone: [facility] Work Phone: 09-29-2021 15:02-0400 Systolic blood pressure 134 mm[Hg] Dr. Abdulaziz Ackerman Work Phone: [facility] Work Phone: 07-30-2021 07:03-0500 Body height 162.[address] Abdulaziz Ackerman Work Phone: [facility] Work Phone: 07-30-2021 07:03-0500 Body mass index (BMI) [Ratio] 31 kg/m2 Dr. Abdulaziz Ackerman Work Phone: [facility] Work Phone: 07-30-2021 07:03-0500 Body temperature 98.2 [degF] Dr. Abdulaziz Ackerman Work Phone: [facility] Work Phone: 07-30-2021 07:03-0500 Body weight 82.[address] Abdulaziz Ackerman Work Phone: [facility] Work Phone: 07-30-2021 07:03-0500 Diastolic blood pressure 72 mm[Hg] Dr. Abdulaziz Ackerman Work Phone: [facility] Work Phone: 07-30-2021 07:03-0500 Heart rate 66 /min Dr. Abdulaziz Ackerman Work Phone: [facility] Work Phone: 07-30-2021 07:03-0500 Respiratory rate 14 /min Dr. Abdulaziz Ackerman Work Phone: [facility] Work Phone: 07-30-2021 07:03-0500 SaO2% (BldA) [Mass fraction] 99 % Dr. Abdulaziz Ackerman Work Phone: [facility] Work Phone: 07-30-2021 07:03-0500 Systolic blood pressure 126 mm[Hg] Dr. Abdulaziz Ackerman Work Phone: [facility] Work Phone: 05-04-2021 07:22-0500 Body mass index (BMI) [Ratio] 31.2 kg/m2 Dr. Abdulaziz Ackerman Work Phone: [facility] Work Phone: 05-04-2021 07:22-0500 Body temperature 97.2 [degF] Dr. Abdulaziz Ackerman Work Phone: [facility] Work Phone: 05-04-2021 07:22-0500 Body weight 82.[address] Abdulaziz Ackerman Work Phone: [facility] Work Phone: 05-04-2021 07:22-0500 Diastolic blood pressure 78 mm[Hg] Dr. Abdulaziz Ackerman Work Phone: [facility] Work Phone: 05-04-2021 07:22-0500 Heart rate 66 /min Dr. Abdulaziz Ackerman Work Phone: [facility] Work Phone: 05-04-2021 07:22-0500 Respiratory rate 16 /min Dr. Abdulaziz Ackerman Work Phone: [facility] Work Phone: 05-04-2021 07:22-0500 SaO2% (BldA) [Mass fraction] 99 % Dr. Abdulaziz Ackerman Work Phone: [facility] Work Phone: 05-04-2021 07:22-0500 Systolic blood pressure 140 mm[Hg] Dr. Abdulaziz Ackerman Work Phone: [facility] Work Phone: 04-28-2021 09:39-0500 Body weight 83.[address] Abdulaziz Ackerman Work Phone: [facility] Work Phone: 04-28-2021 09:39-0500 Diastolic blood pressure 75 mm[Hg] Dr. Abdulaziz Ackerman Work Phone: [facility] Work Phone: 04-28-2021 09:39-0500 Heart rate 76 /min Dr. Abdulaziz Ackerman Work Phone: [facility] Work Phone: 04-28-2021 09:39-0500 Respiratory rate 18 /min Dr. Abdulaziz Ackerman Work Phone: [facility] Work Phone: 04-28-2021 09:39-0500 SaO2% (BldA) [Mass fraction] 96 % Dr. Abdulazzi Ackerman Work Phone: [facility] Work Phone: 04-28-2021 09:39-0500 Systolic blood pressure 137 mm[Hg] Dr. Abdulaziz Ackerman Work Phone: [facility] Work Phone: 12-02-2020 14:08-0400 Body mass index (BMI) [Ratio] 30.4 kg/m2 Dr. Abdulaziz Ackerman Work Phone: [facility] Work Phone: Encounters Encounter Date Encounter Type Care Provider Facility Start: 11-29-2024 ambulatory Efewdinabe Edithe Facili ty:[facility] Start: 11-25-2024 End: 11-25-2024 Patient encounter procedure Paula MEZA -[facility] Work Phone: Start: 11-25-2024 End: 11-25-[address] Abdulaziz Ackerman MD Work Phone: -[facility] Start: 10-30-2024 ambulatory Efewongbe Olebabatundee Facili ty:[facility] Start: 10-25-2024 End: 10-25-2024 Patient encounter procedure Eladio DIXON -[facility] Work Phone: Start: 10-25-2024 End: 10-25-[address] Abdulaziz Ackerman MD Work Phone: [facility] Work Phone: Start: 10-17-2024 End: 10-19-[address] Abdulaziz Ackerman MD Work Phone: [facility] Work Phone: Start: 10-17-2024 End: 10-19-[address] Abdulaziz Ackerman MD -Laboratory [facility] Start: 09-27-2024 End: 09-27-[address] Abdulaziz Ackerman MD -[facility] Work Phone: Start: 09-27-2024 End: 09-27-2024 ambulatory Abdulaziz Ackerman Facility:[facility] Start: 09-19-2024 ambulatory Efewongbe Edithe Facili ty:[facility] Start: 09-12-2024 ambulatory Efewongbe Edithe Facili ty:[facility] Start: 09-06-2024 End: 09-06-[address] Abdulaziz Ackerman MD -[facility] Work Phone: Start: 09-06-2024 End: 09-06-2024 ambulatory Abdulaziz Ackerman Facility:[facility] Start: 09-02-2024 End: 09-18-[address] Abdulaziz Ackerman MD -[facility] Start: 09-02-2024 End: 09-18-2024 ambulatory [facility] Facility:[facility] Start: 08-29-2024 ambulatory Abdulaziz Ackerman Facili ty:[facility] Start: 08-25-2024 Non-patient / Non-visit Dr. Samantha Gary MD -[facility] Work Phone: Start: 08-24-2024 Non-patient / Non-visit Dr. Keyana Ramesh MD [facility] Start: 08-24-2024 Non-patient / Non-visit Dr. Samantha Gary MD -[facility] Work Phone: Start: 08-23-2024 Non-patient / Non-visit Dr. Iglesia Benson MD -[facility] Work Phone: Start: 08-23-2024 Non-patient / Non-visit [facility]. Berry [facility] Start: 08-22-2024 Non-patient / Non-visit Dr. Iglesia Benson MD -[facility] Work Phone: Start: 08-22-2024 ambulatory Jamal Tammy Facility:[facility] Start: 08-21-2024 Non-patient / Non-visit Dr. Berry [facility] Start: 08-21-2024 ambulatory [facility] Meka Munozi ty:[facility] Start: 08-21-2024 Non-patient / Non-visit Dr. Iglesia Benson MD -[facility] Work Phone: Start: 08-21-2024 [facility] Start: 08-21-2024 End: 08-25-2024 Evaluation and management of inpatient Dr. Iglesia Benson MD -Intensive Care Unit Work Phone: Start: 08-15-2024 End: 08-19-[address] Abdulaziz Ackerman MD Work Phone: [facility] Work Phone: Start: 08-15-2024 End: 08-19-[address] Abdulaziz Ackerman MD -Laboratory, [facility] Start: 07-31-2024 End: 07-31-2024 Patient encounter procedure Eladio DIXON -[facility] Work Phone: Start: 07-31-2024 End: 07-31-2024 ambulatory Efmyl[place]io Solorzanobabatundee Facility:[facility] Start: 07-24-2024 End: 07-24-[address] Abdulaziz Ackerman MD -[facility] Work Phone: Start: 07-24-2024 End: 07-24-2024 ambulatory Efrosalina Ackerman Facility:[facility] Start: 04-30-2024 End: 05-21-[address] Abdulaziz Ackerman MD -Laboratory, [facility] Start: 04-30-2024 End: 05-21-2024 ambulatory [facility] Start: 04-10-2024 End: 04-20-2024 [facility] Start: 03-19-2024 End: 03-21-2024 [facility]ulatory [facility] Start: 02-23-2024 End: 02-23-2024 ambulatory Sara Ferullo Facility:[facility] Start: 02-12-2024 End: 02-19-2024 ambulatory Sara Ferullo Facility:[facility] Start: 02-06-2024 End: 02-06-2024 ambulatory Sara Ferullo Facility:[facility] Start: 12-18-2023 End: 12-20-2023 ambulatory Sara Ferullo Facility:[facility] Start: 09-18-2023 End: 09-19-[address] Abdulaziz Ackerman Work Phone: [facility] Work Phone: Start: 09-18-2023 End: 09-19-[address] Abdulaziz Ackerman Work Phone: [facility] Start: 08-08-2023 End: 08-08-[address] Abdulaziz Ackerman Work Phone: [facility] Work Phone: Start: 08-08-2023 End: 08-08-[address] Abdulaziz Ackerman Work Phone: [facility] Start: 07-28-2023 End: 08-20-[address] Abdulaziz Ackerman Work Phone: [facility] Work Phone: Start: 07-28-2023 End: 08-20-[address] Abdulaziz Ackerman Work Phone: [facility] Start: 07-28-[address] José Luis Ackerman Work Phone: [facility] Start: 07-28-2023 End: 07-28-[address] Abdulaziz Ackerman Work Phone: [facility] Work Phone: Start: 06-26-2023 End: 07-20-[address] Abdulaziz Ackerman Work Phone: [facility] Work Phone: Start: 06-26-2023 End: 07-20-[address] Abdulaziz Ackerman Work Phone: [facility] Start: 06-21-2023 End: 06-21-[address] Abdulaziz Ackerman Work Phone: [facility] Work Phone: Start: 06-21-2023 End: 06-21-[address] Abdulaziz Ackerman Work Phone: [facility] Start: 06-19-2023 End: 06-19-[address] Abdulaziz Ackerman Work Phone: [facility] Work Phone: Start: 06-19-2023 End: 06-19-[address] Abdulaziz Ackerman Work Phone: [facility] Start: 06-13-2023 End: 06-13-[address] Abdulaziz Ackerman Work Phone: [facility] Work Phone: Start: 05-31-2023 End: 05-31-[address] Abdulaziz Ackerman Work Phone: [facility] Work Phone: Start: 05-31-2023 End: 05-31-[address] Abdulaziz Ackerman Work Phone: [facility]-Physical Therapy Work Phone: Start: 03-07-2023 End: 03-07-[address] Abdulaziz Ackerman Work Phone: [facility] Work Phone: Start: 03-07-2023 End: 03-07-[address] Abdulaziz Ackerman Work Phone: [facility] Work Phone: Start: 12-29-2022 End: 12-29-[address] Abdulaziz Ackerman Work Phone: [facility] Work Phone: Start: 12-13-[address] José Luis Ackerman Work Phone: [facility]-Occupational Therapy Work Phone: Start: 12-07-2022 End: 12-07-[address] Abdulaziz Ackerman Work Phone: [facility] Work Phone: Start: 11-18-2022 Non-patient / Non-visit Dr. Renita Ackerman Work Phone: [facility] Start: 11-18-2022 Non-patient / Non-visit Dr. Renita Ackerman Work Phone: [facility] Work Phone: Start: 11-18-2022 Non-patient / Non-visit Dr. Renita Ackerman Work Phone: [facility] Start: 11-17-2022 Non-patient / Non-visit Dr. Renita Ackerman Work Phone: [facility] Start: 11-17-2022 Non-patient / Non-visit Dr. Renita Ackerman Work Phone: [facility] Work Phone: Start: 11-17-2022 End: 11-18-2022 Evaluation and management of inpatient Dr. Abdulaziz Ackerman Work Phone: [facility]-Progressive Care Unit Work Phone: Start: 11-17-2022 End: 11-18-[address] Abdulaziz Ackerman Work Phone: [facility] Work Phone: Start: 09-28-2022 End: 09-28-[address] Abdulaziz Ackerman Work Phone: [facility] Work Phone: Start: 07-29-2022 End: 07-29-[address] Abdulaziz Ackerman Work Phone: [facility] Work Phone: Start: 07-29-2022 End: 07-29-[address] Abdulaziz Ackerman Work Phone: [facility] Start: 05-26-2022 End: 05-26-[address] Abdulaziz Ackerman Work Phone: [facility] Work Phone: Start: 05-26-2022 End: 05-26-[address] Abdulaziz Ackerman Work Phone: [facility] Start: 03-21-2022 End: 03-21-[address] Abdulaziz Ackerman Work Phone: [facility] Work Phone: Start: 03-21-2022 End: 03-21-[address] Abdulaziz Ackerman Work Phone: [facility] Start: 02-17-2022 End: 02-17-[address] Abdulaziz Ackerman Work Phone: [facility] Start: 02-08-2022 End: 02-08-[address] Abudlaziz Ackerman Work Phone: [facility] Start: 01-04-2022 End: 01-04-2022 Patient encounter procedure Homa Solis APRN.CNP Work Phone: OB/Gynecology Comment on above: Acute vulvitis (Prim latrice Dx); Vaginal burning; Vagina itching Start: 01-03-2022 End: 01-03-[address] Abdulaziz Ackerman Work Phone: [facility] Start: 12-03-2021 End: 12-03-2021 Emergency department patient visit Dr. Abdulaziz Ackerman Work Phone: [facility]-Emergency Department Start: 10-07-2021 End: 10-07-2021 Subsequent hospital visit by physician [facility] Work Phone: Molecular Imaging Comment on above: Malignant melanoma o f other part of trunk [C43.59] Start: 10-04-2021 End: 10-04-[address] Abdulaziz Ackerman Work Phone: [facility]-Pulmonary Services/Neurology Start: 10-04-2021 Non-patient / Non-visit Dr. Renita Ackerman Work Phone: [facility] Start: 09-29-[address] Earnestine Ackerman Work Phone: [facility] Start: 09-29-2021 End: 09-29-2021 Encounter for other preprocedural examination Dr. Abdulaziz Ackerman Work Phone: [facility] Internal [facility] Start: 09-29-2021 End: 09-29-[address] Abdulaziz Ackerman Work Phone: [facility] Internal [facility] Start: 08-13-2021 End: 08-13-[address] Abdulaziz Ackerman Work Phone: [facility]-Cardiovascula r Services Start: 07-30-2021 End: 07-30-[address] Abdulaziz Ackerman Work Phone: [facility]atory, [facility] Start: 05-04-2021 End: 05-04-[address] Abdulaziz Ackerman Work Phone: [facility] Internal Medicine Start: 04-28-2021 End: 04-28-[address] Abdulaziz Ackerman Work Phone: [facility] Start: 12-14-2016 End: 12-15-2016 Ambulatory AMELIA (FINISH CARPENTER) [facility] Procedures Date Procedure Procedure Detail Performing Clinician Start: 08-25-[address] Abdulaziz Ackerman MD Work Phone: Start: 08-24-2024 Serum inorganic phos phate measurement Dr. Abdulaziz Ackerman MD Work Phone: Start: 08-21-2024 X-ray of chest, PA a nd lateral views Dr. Abdulaziz Ackerman MD Work Phone: Start: 03-07-2023 Radiography of thora cic spine Dr. Abdulaziz Ackerman Work Phone: Start: 03-07-2023 X-ray of lumbar spin e, two or three views Dr. Abdulaziz Ackerman Work Phone: Start: 11-17-2022 Computed tomography angiography of abdominal and/or pelvic blood vessel Dr. Abdulaziz Ackerman Work Phone: Start: 11-17-2022 Plain chest X-ray Dr. Noah Ackerman Work Phone: Start: 11-17-2022 Radiologic examinati on of knee Dr. Abdulaziz Ackerman Work Phone: Start: 10-07-2021 Lymphatics & lymph n odes imaging [facility] Provider Start: 10-04-2021 Plain chest X-ray Dr. Noah Ackerman Work Phone: Plan of Treatment Date Care Activity Detail Author Start: 10-25-2024 Patient referral [facility] Work Phone: Start: 08-26-2024 Prothrombin time [facility] Start: 08-25-2024 Patient discharge [facility] Start: 08-23-2024 [facility] Start: 08-22-2024 Patient referral [facility] Work Phone: Start: 08-22-2024 [facility] Start: 08-21-2024 Consultation for treatment [facility] Start: 08-21-2024 Following clinical pathway protocol [facility] Start: 08-21-2024 Ambulation without limitation [facility] Start: 08-21-2024 Application of elastic bandage [facility] Start: 08-21-2024 Assessment of risk of venous thromboembolism [facility] Start: 08-21-2024 Elevation of affected extremity [facility] Start: 08-21-2024 Insertion of catheter into peripheral vein [facility] Start: 08-21-2024 Measuring intake and output [facility] Start: 08-21-2024 Notification of physician [facility] Start: 08-21-2024 Patient education [facility] Start: 08-21-2024 Providing care according to standard [facility] Start: 08-21-2024 Referral to occupational therapist [facility] Start: 08-21-2024 Referral to service [facility] Start: 08-21-2024 [facility] Start: 08-21-2024 Referral to child specialist [facility] Start: 08-21-2024 Fluid restriction [facility] Start: 08-21-2024 Verification routine [facility] Start: 08-21-2024 Hospital admission, emergency, from emergency room, medical nature [facility] Start: 08-21-2024 Admission procedure [facility] Start: 08-21-2024 End: 08-22-2024 [facility] Start: 08-21-2024 Consultation [facility] Start: 08-21-2024 Patient referral to dietitian [facility] Start: 07-31-2024 Patient referral [facility] Work Phone: Start: 03-07-2023 Patient referral [facility] Work Phone: Start: 11-18-2022 Patient referral [facility] Work Phone: Start: 11-18-2022 Patient discharge [facility] Start: 11-18-2022 Notification of physician [facility] Start: 11-18-2022 Patient education [facility] Start: 11-18-2022 Provision of activity privileges [facility] Start: 11-18-2022 Pulse taking [facility] Start: 11-18-2022 Taking patient vital signs [facility] Start: 11-18-2022 Wound care [facility] Start: 11-18-2022 [facility] Start: 11-18-2022 Referral to vascular surgeon [facility] Start: 11-17-2022 Catheterization of vein [facility] Start: 11-17-2022 Medication not administered [facility] Start: 11-17-2022 Notification of physician [facility] Start: 11-17-2022 [facility] Start: 11-17-2022 Ambulation without limitation [facility] Start: 11-17-2022 Assessment of risk of venous thromboembolism [facility] Start: 11-17-2022 Catheterization of vein [facility] Start: 11-17-2022 Insertion of catheter into peripheral vein [facility] Start: 11-17-2022 Measuring intake and output [facility] Start: 11-17-2022 Providing care according to standard [facility] Start: 11-17-2022 Referral to child specialist [facility] Start: 11-17-2022 [facility] Start: 11-17-2022 Verification routine [facility] Start: 11-17-2022 Admission procedure [facility] Start: 11-17-2022 Blood chemistry [facility] Start: 11-17-2022 Thyroid stimulating hormone measurement [facility] Start: 11-17-2022 End: 11-17-2022 [facility] Start: 11-17-2022 [facility] Start: 02-08-2022 Patient referral [facility] Work Phone: Start: 01-20-2022 Influenza vaccination [facility] Start: 01-03-2022 Patient referral [facility] Work Phone: Start: 10-04-2021 Plain chest X-ray Chest PA and Lateral [facility] Work Phone: Start: 07-30-2021 Patient referral [facility] Work Phone: Start: 06-30-2009 PAP TESTING PAP TESTING [facility] Start: 05-31-2007 DIABETES SCREEN DIABETES SCREEN [facility] Start: 2007 SHINGRIX VACCINE (1 of 2) SHINGRIX VACCINE (1 of 2) [facility] Start: 2002 COLOGUARD (FIT-DNA) COLOGUARD (FIT-DNA) [facility] Start: 2002 Colonoscopy COLONOSCOPY [facility] Start: 2002 COLORECTAL CANCER SCREENING COLORECTAL CANCER SCREENING [facility] Start: [address] COLONOGRAPHY [facility] Start: 2002 FECAL OCCULT BLOOD FECAL OCCULT BLOOD [facility] Start: 2002 LIPID SCREEN LIPID SCREEN [facility] Start: 2002 SIGMOIDOSCOPY SIGMOIDOSCOPY [facility] Start: 1997 Mammography MAMMOGRAM [facility] Start: 1987 HPV TESTING HPV TESTING [facility] Start: 1976 Urine microalbumin profile DTAP,TDAP,TD (1 - Tdap) [facility] Start: 1975 HEPATITIS C SCREENING HEPATITIS C SCREENING [facility] Start: 1975 HIV SCREENING HIV SCREENING [facility] Start: 1969 Adult depression screening assessment DEPRESSION SCREENING [facility] Start: 1963 PNEUMOCOCCAL (1 - PCV) PNEUMOCOCCAL (1 - PCV) [facility] Start: 1962 COVID-19 VACCINE (#1) COVID-19 VACCINE (#1) [facility] Start: 1957 COVID-19 VACCINE (#1) COVID-19 VACCINE (#1) [facility] BACTERIAL VAGINOSIS AMPLIFICATION BACTERIAL VAGINOSIS AMPLIFICATION Lab Routine Vaginal burning Vagina itching Acute vulvitis 01/04/2022 1:50 PM EDT [facility] Work Phone: AGGIE / TRICHOMONA S AMPLIFICATION AGGIE / TRICHOMONAS AMPLIFICATION Lab Routine Vaginal burning Vagina itching Acute vulvitis 01/04/2022 1:50 PM EDT [facility] Work Phone: Cardiac event recording [facility] Patient Education ED Facial Contusion [facility] Work Phone: Patient referral [facility] Work Phone: Troponin T.cardiac [Mass/volume] in Serum or Plasma by High sensitivity method [facility] Urinalysis complete panel - [facility] Knee GE 4 Views [facility] Payers Date Payer Category Payer Medicare [id number] 2023 Self-pay [id number] 2021 Unknown [employer] PPO [id number] 2021-Present [phone] [address] [place] [address] PPO [id number] 2021 Unknown [employer] PPO [id number] 2021-Present [phone] [place] [id number] PPO [id number] 2004 Private Health Insurance [id number] Private Health Insurance [id number] Unknown [id number] Unknown [id number] Unknown [id number] Unknown [id number] 2.16.840.1.662992.3.579.2.4 62 Unknown [id number] 2.16.840.1.840128.3.579.2.4 62 Unknown [id number] 2.16.840.1.640571.3.579.2.4 62 Unknown [id number] 2.16.840.1.022366.3.579.2.4 62 Unknown [id number] 2.16.840.1.906432.3.579.2.4 62 Unknown [id number] 2.16.840.1.460799.3.579.2.4 62 Unknown [id number] 2.16.840.1.663371.3.579.2.4 62 Unknown [id number] 2.16.840.1.497101.3.579.2.4 62 Unknown [id number] 2.16.840.1.071049.3.579.2.4 62 Unknown [id number] 2.16.840.1.922207.3.579.2.4 62 Unknown [id number] 2.16.840.1.751791.3.579.2.4 62 Unknown [id number] 2.16.840.1.028237.3.579.2.4 62 Unknown [id number] 2.16.840.1.155346.3.579.2.4 62 Unknown [id number] 2.16.840.1.711948.3.579.2.4 62 Unknown [id number] 2.16.840.1.304080.3.579.2.4 62 Unknown [id number] 2.16.840.1.158714.3.579.2.4 62 Unknown [id number] 2.16.840.1.756167.3.579.2.4 62 Unknown [id number] 2.16.840.1.655086.3.579.2.4 62 Unknown [id number] 2.16.840.1.622575.3.579.2.4 62 Unknown [id number] 2.16.840.1.773788.3.579.2.4 62 Unknown [id number] 2.16.840.1.031510.3.579.2.4 62 Unknown [id number] 2.16.840.1.295173.3.579.2.4 62 Unknown [id number] 2.16.840.1.495045.3.579.2.4 62 Unknown [id number] 2.16.840.1.805756.3.579.2.4 62 Unknown [id number] 2.16.840.1.948979.3.579.2.4 62 Unknown [id number] 2.16.840.1.532595.3.579.2.4 62 Unknown [id number] 2.16.840.1.911592.3.579.2.4 62 Unknown [id number] 2.16.840.1.509776.3.579.2.4 62 Unknown [id number] 2.16.840.1.916409.3.579.2.4 62 Unknown [id number] 2.16.840.1.909699.3.579.2.4 62 Unknown [id number] 2.16.840.1.728213.3.579.2.4 62 Unknown [id number] 2.16.840.1.831322.3.579.2.4 62 Social History Date Type Detail Facility Start: 07-30-2021 End: 07-28-2023 Tobacco smoking status WVIS Unknown if ever smoked [facility] Start: 08-10-2020 Cigarettes [facility] Start: 1955 Sex Assigned At Female [facility] Start: 07-28-2023 End: 10-20-2024 Tobacco smoking status [facility]VIS Smokes tobacco daily [facility] Work Phone: History of tobacco use Cigarette Smoker [facility] Start: 12-14-2016 End: 01-04-2022 Alcohol intake Current drinker of alcohol (finding) [facility] Start: 12-14-2016 End: 01-04-2022 Alcohol intake [facility] Start: 1955 Sex Assigned At Not on file [facility] Start: 09-27-2021 End: 01-04-2022 Exposure to SARS-CoV-2 (event) Not sure [facility] Start: 08-20-2024 End: 08-25-2024 Sex Female (finding) [facility] Start: 08-21-2024 End: 11-25-2024 Tobacco smoking status NHIS Ex-smoker (finding) [facility] Goals Date Patient Goal Desired Activity /State Functional Status Date Assessment Result Facility 08-25-2024 Functional status Ambulates [facility] Work Phone: 11-18-2022 Functional status Ambulates [facility] Work Phone: Mental Status Date Assessment Result Facility 08-25-2024 Cognitive function Voice/Name [facility] Work Phone: 08-21-2024 Cognitive function Voice/Name [facility] Work Phone: 11-18-2022 Cognitive function Voice/Name [facility] Work Phone: 11-17-2022 Cognitive function Voice/Name [facility] Work Phone: 12-03-2021 Cognitive function Level Of Cons ciousness Awake;Alert;Appropriate;Follow s Commands;Responds to vocal stimuli [facility] Work Phone: Clinical Notes 08-10-2020 to 08-25-2024 Note Date & Type Note Facility 08-25-2024 Discharge summary [facility] 08-25-2024 Discharge summary Note Date/Time August 25, 2024 10:59am [facility] Medical Records Department [address] [place] [address] Instructions for Home/Discharge Instructions 08/25/24 1042 MR#: [id number] Acct: [id number] Name: CLARIBEL ALLISON Rep #:[id number] : 1955 69 From: Iglesia Flynn PCP: Dr. Abdulaziz Ackerman MD Status:A DM IN Discharge Instructions Diet Discharge Diet: Low fat / Low cholesterol and 2000 mg Sodium Diet DC O2, CPAP, BIPAP needs Home O2 Discharge instructions: No Dressing / Incision Discharge Activity: Return to Normal Activity Weight Bearing Status: Weight bearing as tolerated Dressing / Incision Call your doctor if you observe: Fever of 101 or Higher, Coldness, Increased Pain, Numbness or Tingling, Change in Color, Inability to urinate, Inability to have a bowel movement, Shortness of breath, Dizziness, Fainting spells, Swellingin the ankles, Chest pain, Prolonged hiccupping, Increased palpitations (irregular heartbeat) and Calf discomfort Follow Up Care When: IN 2 WEEKS Test Results: Test results from this visit will be discussed in further detail at your follow-up appointment, if applicable. Discharge Plan Admission Admit Date/Time: 08/21/24 12:26 Primary Reason for Your Visit: Heart failure exacerbation. Attending Provider: Iglesia Benson Primary Care Provider: Abdulaziz Ackerman Consulting Providers: Param Dominguez Additional Instructions / Restrictions: Advised BMP and PT/INR in 2 days on 08/27/2024 and adjust the dose of warfarin anddiuretics accordingly Discharge Orders/Prescriptions Prescriptions: New atorvastatin 20 mg Tablet 20 mg PO QHS 30 Days Qty: 30 2RF lisinopril 20 mg Tablet 20 mg PO DAILY 30 Days Qty: 30 2RF sennosides-docusate sodium [Stimulant Laxative Plus] 8.6-50 mg Tablet 2 tab PO BID Qty: 0 0RF acetaminophen 500 mg Tablet 1,000 mg PO Q8 Qty: 0 0RF carvedilol 3.125 mg Tablet 3.125 mg PO BIDCM 30 Days Qty: 60 2RF Rx Instructions: Hold for heart less than 50 or systolic blood pressure less than 100 mmHg. magnesium chloride [Mag 64] 64 mg Tablet,Delayed Release (Dr/Ec) 128 mg PO DAILY 30 Days Qty: 60 0RF spironolactone 50 mg tablet 50 mg PO DAILY 30 Days Qty: 30 2RF Rx Instructions: Hold for serum potassium more than 5.0 furosemide 40 mg Tablet 40 mg PO BIDLX 30 Days Qty: 60 2RF Jardiance 10 mg Tablet 10 mg PO DAILY 30 Days Qty: 30 0RF Continued baclofen 10 mg tablet 10 mg PO BID PRN (Reason: muscle spasm) Qty: 60 1RF furosemide 40 mg tablet 40 mg PO QAM Qty: 90 1RF Rx Instructions: Take 1 tablet BID x 4 days then daily potassium chloride 20 mEq tablet extended release 20 meq PO DAILY Qty: 30 1RF Held warfarin [Jantoven] 6 mg tablet 6 mg PO DAILY Hold Instructions: Hold it for 3 days till INR is 2.0 and then resume lower dose Discontinued atorvastatin [Lipitor] 10 mg tablet 10 mg PO DAILY Qty: 90 0RF Patient Comments: PT TAKES AT BEDTIME cephalexin 500 mg capsule 500 mg PO Q8H Qty: 30 0RF amlodipine 10 mg tablet 10 mg PO DAILY Qty: 90 0RF Patient Comments: PT UNSURE IF TAKING lisinopril 40 mg tablet 40 mg PO DAILY Qty: 90 0RF Patient Comments: PT SAID SHE DOES NOT TAKE, BUT RECENTLY FILLED Referrals / Follow Up: Abdulaziz Ackerman MD [Primary Care Provider] - Within 1 Week Param Dominguez MD [Med Staff - Active Staff] - Within 2 Weeks Disposition Disposition (needs filled in before D/C Order can be placed): Home, Self Care 08/25/24 1059<Electronically signed by Iglesia Benson MD>Iglesia Benson MD CC: Dr. Abdulaziz Ackerman MD; Dr. Param Dominguez MD ~ Signed [facility] Work Phone: [phone]) 668-487504-06-2025 Dis[facility] Note Date/Time August 25, 2024 1:32 pm [facility] Medical Records Department [address] [place] [id number] Discharge Summary 08/25/24 1059 MR#: [id number] Acct: [id number] Name: CLARIBEL ALLISON Rep #:[id number] : 1955 69 From: Iglesia Flynn PCP: Dr. Abdulaziz Ackerman MD Status:A DM IN Location: [facility] [id number] Providers Date of Admission: 08/21/24 Date of Discharge: 08/25/24 Primary Care Physician: Dr. Abdulaziz Ackerman MD Consultations 08/21/24 13:22 Consult: Cardiology Routine Consulting Provider: Param Dominguez Reason for Consult: CHF exa, afib rvr EMERGENT Consult: No MD Notified: Yes Date Notified: 08/21/24 Time Notified: 12:22 Method of Notification: ED Physician Initiated 08/21/24 17:29 Consult: Onc/Wound/monorail operator Routine Comment: Reason for Consult:: wounds BLE seeping Reason For Visit: CHF EXA, AFIB RVR Diagnosis Discharge Diagnosis (1) Cardiac LV ejection fraction of 20-34%: Status: Chronic Code(s): R93.1 - Abnormal findings on diagnostic imaging of heart and coronary circulation (2) Heart failure with reduced ejection fraction: Status: Acute Code(s): I50.20 - Unspecified systolic (congestive) heart failure (3) Paroxysmal atrial fibrillation with RVR: Status: Acute Code(s): I48.0 - Paroxysmal atrial fibrillation (4) Bradycardia: Status: Acute Code(s): R00.1 - Bradycardia, unspecified Plan 69-year-old female admitted with 3 months of progressive worsening of shortness of breath, dyspnea at rest, orthopnea, anasarca and chest x-ray findings suggestive of heart failure exacerbation 1. Subacute debility/dyspnea at rest due to acute on chronic HFpEF: Patient is being admitted in PCU. Chest x-ray newly reviewed and shows pulmonary congestion/edema. 60 mg IV Lasix given in ER physician and then started on furosemide drip 10 mg/h. Heart failure core measures including intake and output, fluid restriction less than 1800 mL, daily weight monitoring, kidney andelectrolytes monitoring. 2D echo ordered. Nitroglycerin ointment ordered for preload reduction 08/22: Dyspnea is much better and has resolved. Sitting comfortable. Discontinuenitroglycerin ointment as patient having headache. Discussed with the child specialist consult consult reviewed. Continue furosemide drip 10 mg/h. Empagliflozin 10 mg daily. Spironolactone dose increased to 50 mg daily. Echo reviewed, global hypokinesis, EF 20%. 1-2+ MR. LA moderately enlarged RA mildly enlarged. Troponins mildly enlarged 36, 44 and 45. proBNP about 4000 overall suggestive of increased LV overload therefore due to cardiac demand ischemia. No need to repeat cath as patient was found of nonobstructive coronaries in October 202208/23: Furosemide drip is discontinued. She has jump in creatinine 0.87-1.35 in 48 hours therefore meets criteria for LILLI due to diuretic therefore will hold furosemide today and start frusemide 40 mg p.o. twice daily from tomorrow. K low 3.3 but patient on spironolactone dose increased to 50 mg daily. 08/24: Furosemide 40 mg oral twice daily. Continue spironolactone 50 mg daily. Hypokalemia: Potassium 2.3.3.8 even on the spironolactone. Potassium replacement ordered. Phosphorus high 4.7, magnesium normal. Continue potassiumand magnesium supplement with diuretic Lasix 08/25: Potassium 3.4, sodium 139. BUN/creatinine 26/creatinine 1.18. Patient is euvolemic. Discharged on furosemide 40 mg twice daily, spironolactone 50 mg daily, lisinopril 20 mg daily, carvedilol 3.125 mg twice daily and magnesium supplement. Patient already on potassium supplement. Hypokalemia resolved. Advised BMP and PT/NR in 2 days and follow with PCP. Discharge medications discussed with the child specialist Dr. Ramesh. Follow-up in cardiology in [address] Dominguez 2. A-fib RVR and history of chronic PE.: Patient is still tachycardic. Heart rate 133 permanent. Metoprolol 5 mg IV given and then oral 25 mg twice daily. A-fib RVR mainly due to adrenergic response from heart failure. PT/INR ordered. On warfarin 4 mg daily continued. Tachycardia expected to get better with diuresis. 08/22: Carvedilol 6.25 mg p.o. twice daily 1 cardiac strip shows A-fib with heart rate in 30s. Currently her heart rate is in high 90s to low 100s. INR 1.9. Continue warfarin 6 mg daily 08/23: INR 2.6 therapeutic. 08/24: Patient had sinus pause last night about 4.7-second therefore cardiology discontinued. Discussed with the child specialist. Will need outpatient event monitor after discharge from 08/25: Patient did not had sinus pause but had AV conduction block of about 3.27-second. Discussed with the child specialist Dr. Ramesh. He is okay with the patient being discharged on carvedilol 3.125 mg twice daily as the patient has A-fib with slow conduction, flutter and there is no sinus pause. Patient has asymptomatic bradycardia and carvedilol indicated and needed for heart failure with EF 20% 3. Nonobstructive CAD/non-STEMI: Patient was last admitted in October 2022 for non-STEMI. At that time diagnostic cardiac cath showed EF 60%, normal LV wall motion and systolic function. No significant obstructive coronary vessels found. 4. Chronic left knee degenerative arthritis: PT and OT ordered. Pain can 5. Essential hypertension: Blood pressure is high in triage. Is getting better. Patient already on furosemide drip and metoprolol. Titrate according to blood pressure. 08/22: Lisinopril 20 mg daily 6. Chronic thoracoabdominal aortic aneurysm: Last seen in vascular surgery clinic in November 2022. CTA imaging at that time showed 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 largest in the mid/distal descending thoracic aorta. Advised to continue follow-up with Dr. Tucker Dodson. 7. Anxiety depression/insomnia: Xanax 0.25 mg p.o. 3 times daily as needed for anxiety started DVT prophylaxis, high risk with history of chronic PE: On warfarin. Living will/advanced directive/end of life care: Patient does not have living will or advanced directive or designated power of commercial attorney for health. His sister is next to kin. After discussion of benefits/risks procedures involved with full code, DNR CC arrest and DNR CC, the patient opted for full code. Patient does want artificial life support including intubation, tube feed, ventilator and/chest compression, central venous catheter, vasopressor and DC shock if needed = Clinical Impression(s) from Imaging Studies Chest X-Ray 08/21/24 11:32 IMPRESSION: Cardiomegaly with mild congestion. Echocardiogram 08/21/24 14:27 Interpretation Summary Normal LV size. The left ventricular ejection fraction is 20 %. There is severe global hypokinesis of the left ventricle. The left atrium is moderately enlarged. Mild-Moderate (1-2+) eccentric mitral valve insufficiency. Mildly dilated aortic root. The right atrium is mildly enlarged. Echo 11/08/2022 Interpretation Summary Normal LV size. Mild concentric left ventricular hypertrophy. Mild to moderate (1-2+) tricuspid valve insufficiency. Mildly dilated aortic root. Dilated descending aorta. The estimated ejection fraction is 55 %. Left ventricular systolic function is normal. Stage 2 diastolic dysfunction. Laboratory Results 08/24/24 15:01: Potassium 2.9 L 08/24/24 17:00: Potassium 3.3 08/25/24 04:36: WBC 6.7, RBC 5.07, Hgb 10.2 L, Hct 36.9 L, MCV 72.8 L, MCH 20.1 L, MCHC 27.6 L, RDW Std Deviation 50.4 H, RDW Coeff of Ele 19.9 H, Plt Count 218, MPV 10.0, Immature Gran % (Auto) 0.300, Neut % (Auto) 65.4, Lymph % (Auto) 22.8, Swift % (Auto) 8.9, Eos % (Auto) 1.9, Baso % (Auto) 0.7, Absolute Neuts (auto) 4.4, Absolute Lymphs (auto) 1.53, Nucleated RBC % 0, PT 33.4 H, INR 3.2, Sodium 139, Potassium 3.4, Chloride 101, Carbon Dioxide 26.5, Anion Gap 12, BUN 26 H, Creatinine 1.18, Estim Creat Clear Calc 52.76, Est GFR (MDRD) Non-Af 51 L,BUN/Creatinine Ratio 21.7 H, Glucose 114 H, Calcium 8.5 Medications at Discharge Home Medications baclofen 10 mg tablet 10 mg PO BID PRN muscle spasm #60 tabs 02/23/24 furosemide 40 mg tablet 40 mg PO QAM FLUID #90 tabs 07/24/24 potassium chloride 20 mEq tablet,extended release 20 meq PO DAILY SUPPLEMENT #30tabs 07/25/24 warfarin 6 mg tablet (Jantoven) 6 mg PO DAILY ATRIL FIBRILLATION 08/21/24 Held on 08/25/24. Instructions: Hold it for 3 days till INR is 2.0 and then resume lower dose acetaminophen 500 mg tablet 1,000 mg (2 x 500 mg) PO Q8 #0 tabs 08/25/24 atorvastatin 20 mg tablet 20 mg PO QHS 30 days #30 tabs 08/25/24 carvedilol 3.125 mg tablet 3.125 mg PO BIDCM 1 month #60 tabs 08/25/24 empagliflozin 10 mg tablet (Jardiance) 10 mg PO DAILY 30 days #30 tabs 08/25/24 furosemide 40 mg tablet 40 mg PO BIDLX 30 days #60 tabs 08/25/24 lisinopril 20 mg tablet 20 mg PO DAILY 30 days #30 tabs 08/25/24 magnesium chloride 64 mg (magnesium chloride) tablet,delayed release (Mag 64) 128 mg (2 x 64 mg) PO DAILY 1 month #60 tabs 08/25/24 sennosides 8.6 mg-docusate sodium 50 mg tablet (Stimulant Laxative Plus) 2 tab PO BID #0 tabs 08/25/24 spironolactone 50 mg tablet 50 mg PO DAILY 30 days #30 tabs 08/25/24 Physical Exam Narrative Patient is asymptomatic. quality assurance monitor reviewed and shows 3.27 AV conduction block, atrial flutter with slow conduction. She had about 4.7-second pause on carvedilol yesterday was held. Carvedilol resumed at lower dose 3.125 mg twice daily after discussion with the child specialist. Shortness of breath and hypokalemia have resolved. Physical exam General: Alert, Oriented x3, Cooperative HEENT: Atraumatic, PERRLA, EOMI, Normocephalic Oral: Oral mucosa moist. No Gingival or Mucosal Lesions/ Ulcerations Neck: Supple, bilateral JVD, Negative Carotid Bruits Chest wall/Lungs: Air entry diminished in all lung henderson. Lung sounds clear. No crepitation Cardiovascular: Irregular rhythm, a flutter with slow conduction hold for heart rate less than 60 or SBP less than 100 mmHg no M/G/R Abdomen: Bowel Sounds Present, Soft, Non Tender, nondistended : No dysuria. No renal angle tenderness. No suprapubic tenderness. Extremities: Bilateral 2+ pitting, below knee edema, Capillary Refill Less than 3 Seconds Skin: Tiny right lower leg erosion/superficial ulcer/drainage, improved with Acewrap bandage. Musculoskeletal: No Tenderness to Palpation of Joints or Extremities. ROM restricted due to swelling. Neurological: Cranial nerves II-XII grossly intact, DTR 2+/4. No acute focal neurological deficit. Psych/Mental Status: Flat affect. Chronic anxiety Weight / BMI Weight Weight: 209 lb 10.554 oz Body Mass Index (BMI) 34.9 ABG / Lab / Microbiology Data 08/25/24 04:36 08/25/24 04:36 Laboratory: Laboratory Results - last 24 hr 08/24/24 15:01: Potassium 2.9 L 08/24/24 17:00: Potassium 3.3 08/25/24 04:36: WBC 6.7, RBC 5.07, Hgb 10.2 L, Hct 36.9 L, MCV 72.8 L, MCH 20.1 L, MCHC 27.6 L, RDW Std Deviation 50.4 H, RDW Coeff of Ele 19.9 H, Plt Count 218, MPV 10.0, Immature Gran % (Auto) 0.300, Neut % (Auto) 65.4, Lymph % (Auto) 22.8, Swift % (Auto) 8.9, Eos % (Auto) 1.9, Baso % (Auto) 0.7, Absolute Neuts (auto) 4.4, Absolute Lymphs (auto) 1.53, Nucleated RBC % 0, PT 33.4 H, INR 3.2, Sodium 139, Potassium 3.4, Chloride 101, Carbon Dioxide 26.5, Anion Gap 12, BUN 26 H, Creatinine 1.18, Estim Creat Clear Calc 52.76, Est GFR (MDRD) Non-Af 51 L,BUN/Creatinine Ratio 21.7 H, Glucose 114 H, Calcium 8.5 D/C Instructions Discharge Diet: Low fat / Low cholesterol and 2000 mg Sodium Diet Weight Bearing Status: Weight bearing as tolerated Call your doctor if you observe: Fever of 101 or Higher, Coldness, Increased Pain, Numbness or Tingling, Change in Color, Inability to urinate, Inability to have a bowel movement, Shortness of breath, Dizziness, Fainting spells, Swellingin the ankles, Chest pain, Prolonged hiccupping, Increased palpitations (irregular heartbeat) and Calf discomfort DC O2, CPAP, BIPAP Needs Home O2 Discharge instructions: No When: IN 2 WEEKS Meaningful Use Info Meaningful Use Meaningful Use Diagnoses (Choose all that apply): CHF CHF BHAVIN/ARB ordered at discharge?: Yes Documented LVEF (%): 20 Ischemic Stroke Statin Dosing Therapy Reference: STATIN DOSE THERAPY REFERENCE: * Patients > 75 years receive moderate or high dose statin therapy. * Patients 75 years or YOUNGER should receive HIGH intensity statin dose unless contraindicated. You will be required to document reason for non-treatment if statin daily dose does not meet guidelines. HIGH DOSE STATIN THERAPY DAILY Atorvastatin > than or = to 40 mg Rosuvastatin > than or = to 20 mg Amlodipine + Atorvastatin > than or = to 2.5/40 mg Ezetimibe + Simvastatin 10/80 mg Simvastatin 80mg Discharge Plan Admission Admit Date/Time: 08/21/24 12:26 Primary Reason for Your Visit: Heart failure exacerbation. Attending Provider: Iglesia Benson Primary Care Provider: Abdulaziz Ackerman Consulting Providers: Param Dominguez Instructions Additional Instructions / Restrictions: Advised BMP and PT/INR in 2 days on 08/27/2024 and adjust the dose of warfarin anddiuretics accordingly Discharge Orders/Prescriptions Prescriptions: New atorvastatin 20 mg Tablet 20 mg PO QHS 30 Days Qty: 30 2RF lisinopril 20 mg Tablet 20 mg PO DAILY 30 Days Qty: 30 2RF sennosides-docusate sodium [Stimulant Laxative Plus] 8.6-50 mg Tablet 2 tab PO BID Qty: 0 0RF acetaminophen 500 mg Tablet 1,000 mg PO Q8 Qty: 0 0RF carvedilol 3.125 mg Tablet 3.125 mg PO BIDCM 30 Days Qty: 60 2RF Rx Instructions: Hold for heart less than 50 or systolic blood pressure less than 100 mmHg. magnesium chloride [Mag 64] 64 mg Tablet,Delayed Release (Dr/Ec) 128 mg PO DAILY 30 Days Qty: 60 0RF spironolactone 50 mg tablet 50 mg PO DAILY 30 Days Qty: 30 2RF Rx Instructions: Hold for serum potassium more than 5.0 furosemide 40 mg Tablet 40 mg PO BIDLX 30 Days Qty: 60 2RF Jardiance 10 mg Tablet 10 mg PO DAILY 30 Days Qty: 30 0RF Continued baclofen 10 mg tablet 10 mg PO BID PRN (Reason: muscle spasm) Qty: 60 1RF furosemide 40 mg tablet 40 mg PO QAM Qty: 90 1RF Rx Instructions: Take 1 tablet BID x 4 days then daily potassium chloride 20 mEq tablet extended release 20 meq PO DAILY Qty: 30 1RF Held warfarin [Jantoven] 6 mg tablet 6 mg PO DAILY Hold Instructions: Hold it for 3 days till INR is 2.0 and then resume lower dose Discontinued atorvastatin [Lipitor] 10 mg tablet 10 mg PO DAILY Qty: 90 0RF Patient Comments: PT TAKES AT BEDTIME cephalexin 500 mg capsule 500 mg PO Q8H Qty: 30 0RF amlodipine 10 mg tablet 10 mg PO DAILY Qty: 90 0RF Patient Comments: PT UNSURE IF TAKING lisinopril 40 mg tablet 40 mg PO DAILY Qty: 90 0RF Patient Comments: PT SAID SHE DOES NOT TAKE, BUT RECENTLY FILLED Referrals / Follow Up: Abdulaziz Ackerman MD [Primary Care Provider] - Within 1 Week Param Dominguez MD [Med Staff - Active Staff] - Within 2 Weeks Disposition Disposition (needs filled in before D/C Order can be placed): Home, Self Care Charges/Coding Visit Charges Inpatient E&M: 38709 Disch Hosp >30min 08/25/24 1105 <Electronically signed by Iglesia Benson MD> Cosigner Signature (if applicable): CC: Dr. Abdulaziz Ackerman MD; Dr. Iglesia Benson MD~ Signed ADDENDUM by Dr. Iglesia Benson MD on 08/25/24 at 1120 Addendum 30-day event monitor approved by child specialist Dr. Ramesh. To monitor A-fib/A-flutter with slow conduction. Patient is asymptomatic with regards to bradycardia 08/25/24 1120<Electronically signed by Iglesia Benson MD> Cosigner Signature (if applicable): cc: Dr. Abdulaziz Ackerman MD; Dr. Iglesia Benson MD ~* Signed ADDENDUM by Dr. Iglesia Benson MD on 08/25/24 at 1332 Addendum Patient was on furosemide 40 mg daily at home. It was discontinued new prescription for furosemide 40 mg p.o. twice daily given 08/25/24 1332<Electronically signed by Iglesia Benson MD> Cosigner Signature (if applicable): cc: Dr. Abdulaziz Ackerman MD; Dr. Iglesia Benson MD ~* Signed [facility] Work Phone: 1(482) 425-220704-06-2025 Discharge summary [facility] Medical Records Department [address] [place] [address] Instructions for Home/Discharge Instructions 08/25/24 1042 MR#: [id number] Acct: [id number] Name: CLARIBEL ALLISON Rep #:[id number] : 1955 69 From: Iglesia Flynn PCP: Dr. Abdulaziz Ackerman MD Status:A DM IN Discharge Instructions Diet Discharge Diet: Low fat / Low cholesterol and 2000 mg Sodium Diet DC O2, CPAP, BIPAP needs Home O2 Discharge instructions: No Dressing / Incision Discharge Activity: Return to Normal Activity Weight Bearing Status: Weight bearing as tolerated Dressing / Incision Call your doctor if you observe: Fever of 101 or Higher, Coldness, Increased Pain, Numbness or Tingling, Change in Color, Inability to urinate, Inability to have a bowel movement, Shortness of breath, Dizziness, Fainting spells, Swellingin the ankles, Chest pain, Prolonged hiccupping, Increased palpitations (irregular heartbeat) and Calf discomfort Follow Up Care When: IN 2 WEEKS Test Results: Test results from this visit will be discussed in further detail at your follow- up appointment, if applicable. Discharge Plan Admission Admit Date/Time: 08/21/24 12:26 Primary Reason for Your Visit: Heart failure exacerbation. Attending Provider: Iglesia Benson Primary Care Provider: Abdulaziz Ackerman Consulting Providers: Param Dominguez Instructions Additional Instructions / Restrictions: Advised BMP and PT/INR in 2 days on 08/27/2024 and adjust the dose of warfarin anddiuretics accordingly Discharge Orders/Prescriptions Prescriptions: New atorvastatin 20 mg Tablet 20 mg PO QHS 30 Days Qty: 30 2RF lisinopril 20 mg Tablet 20 mg PO DAILY 30 Days Qty: 30 2RF sennosides-docusate sodium [Stimulant Laxative Plus] 8.6-50 mg Tablet 2 tab PO BID Qty: 0 0RF acetaminophen 500 mg Tablet 1,000 mg PO Q8 Qty: 0 0RF carvedilol 3.125 mg Tablet 3.125 mg PO BIDCM 30 Days Qty: 60 2RF Rx Instructions: Hold for heart less than 50 or systolic blood pressure less than 100 mmHg. magnesium chloride [Mag 64] 64 mg Tablet,Delayed Release (Dr/Ec) 128 mg PO DAILY 30 Days Qty: 60 0RF spironolactone 50 mg tablet 50 mg PO DAILY 30 Days Qty: 30 2RF Rx Instructions: Hold for serum potassium more than 5.0 furosemide 40 mg Tablet 40 mg PO BIDLX 30 Days Qty: 60 2RF Jardiance 10 mg Tablet 10 mg PO DAILY 30 Days Qty: 30 0RF Continued baclofen 10 mg tablet 10 mg PO BID PRN (Reason: muscle spasm) Qty: 60 1RF furosemide 40 mg tablet 40 mg PO QAM Qty: 90 1RF Rx Instructions: Take 1 tablet BID x 4 days then daily potassium chloride 20 mEq tablet extended release 20 meq PO DAILY Qty: 30 1RF Held warfarin [Jantoven] 6 mg tablet 6 mg PO DAILY Hold Instructions: Hold it for 3 days till INR is 2.0 and then resume lower dose Discontinued atorvastatin [Lipitor] 10 mg tablet 10 mg PO DAILY Qty: 90 0RF Patient Comments: PT TAKES AT BEDTIME cephalexin 500 mg capsule 500 mg PO Q8H Qty: 30 0RF amlodipine 10 mg tablet 10 mg PO DAILY Qty: 90 0RF Patient Comments: PT UNSURE IF TAKING lisinopril 40 mg tablet 40 mg PO DAILY Qty: 90 0RF Patient Comments: PT SAID SHE DOES NOT TAKE, BUT RECENTLY FILLED Referrals / Follow Up: Abdulaziz Ackerman MD [Primary Care Provider] - Within 1 Week Param Dominguez MD [Med Staff - Active Staff] - Within 2 Weeks Disposition Disposition (needs filled in before D/C Order can be placed): Home, Self Care 08/25/24 1059Iglesia Benson MD CC: Dr. Abdulaziz Ackerman MD; Dr. Param Dominguez MD ~ Signed [facility]04-06-2025 [facility] Medical Records Department [address] [place] [address] Discharge Summary 08/25/24 1059 MR#: [id number] Acct: [id number] Name: CLARIBEL ALLISON Rep #: [id number] : 1955 69 From: Iglesia Benson MD PCP: Dr. Abdulaziz Ackerman MD Status:ADM IN Location: [place] [address] Providers Date of Admission: 08/21/24 Date of Discharge: 08/25/24 Primary Care Physician: Dr. Abdulaziz Ackerman MD Consultations 08/21/24 13:22 Consult: Cardiology Routine Consulting Provider: Param Dominguez Reason for Consult: CHF exa, afib rvr EMERGENT Consult: No Notified: Yes Date Notified: 08/21/24 Time Notified: 12:22 Method of Notification: ED Physician Initiated 08/21/24 17:29 Consult: Onc/Wound/monorail operator Routine Comment: Reason for Consult:: wounds BLE seeping Reason For Visit: CHF EXA, AFIB RVR Diagnosis Discharge Diagnosis (1) Cardiac LV ejection fraction of 20-34%: Status: Chronic Code(s): R93.1 - Abnormal findings on diagnostic imaging of heart and coronary circulation (2) Heart failure with reduced ejection fraction: Status: Acute Code(s): I50.20 - Unspecified systolic (congestive) heart failure (3) Paroxysmal atrial fibrillation with RVR: Status: Acute Code(s): I48.0 - Paroxysmal atrial fibrillation (4) Bradycardia: Status: Acute Code(s): R00.1 - Bradycardia, unspecified Plan 69-year-old female admitted with 3 months of progressive worsening of shortness of breath, dyspnea at rest, orthopnea, anasarca and chest x-ray findings suggestive of heart failure exacerbation 1. Subacute debility/dyspnea at rest due to acute on chronic HFpEF: Patient is being admitted in PCU. Chest x-ray newly reviewed and shows pulmonary congestion/edema. 60 mg IV Lasix given in ER physician and then started on furosemide drip 10 mg/h. Heart failure core measures including intake and output, fluid restriction less than 1800 mL, daily weight monitoring, kidney and electrolytes monitoring. 2D echo ordered. Nitroglycerin ointment ordered for preload reduction 08/22: Dyspnea is much better and has resolved. Sitting comfortable. Discontinue nitroglycerin ointment as patient having headache. Discussed with the child specialist consult consult reviewed. Continue furosemide drip 10 mg/h. Empagliflozin 10 mg daily. Spironolactone dose increased to 50 mg daily. Echo reviewed, global hypokinesis, EF 20%. 1-2+ MR. LA moderately enlarged RA mildly enlarged. Troponins mildly enlarged 36, 44 and 45. proBNP about 4000 overall suggestive of increased LV overload therefore due to cardiac demand ischemia. No need to repeat cath as patient was found of nonobstructive coronaries in October 202208/23: Furosemide drip is discontinued. She has jump in creatinine 0.87-1.35 in 48 hours therefore meets criteria for LILLI due to diuretic therefore will hold furosemide today and start frusemide 40 mg p.o. twice daily from tomorrow. K low 3.3 but patient on spironolactone dose increased to 50 mg daily. 08/24: Furosemide 40 mg oral twice daily. Continue spironolactone 50 mg daily. Hypokalemia: Potassium 2.3.3.8 even on the spironolactone. Potassium replacement ordered. Phosphorus high 4.7, magnesium normal. Continue potassium and magnesium supplement with diuretic Lasix 08/25: Potassium 3.4, sodium 139. BUN/creatinine 26/creatinine 1.18. Patient is euvolemic. Discharged on furosemide 40 mg twice daily, spironolactone 50 mg daily, lisinopril 20 mg daily, carvedilol 3.125 mg twice daily and magnesium supplement. Patient already on potassium supplement. Hypokalemia resolved. Advised BMP and PT/NR in 2 days and follow with PCP. Discharge medications discussed with the child specialist Dr. Ramesh. Follow-up in cardiology in [address] Dominguez 2. A-fib RVR and history of chronic PE.: Patient is still tachycardic. Heart rate 133 permanent. Metoprolol 5 mg IV given and then oral 25 mg twice daily. A-fib RVR mainly due to adrenergic response from heart failure. PT/INR ordered. On warfarin 4 mg daily continued. Tachycardia expected to get better with diuresis. 08/22: Carvedilol 6.25 mg p.o. twice daily 1 cardiac strip shows A-fib with heart rate in 30s. Currently her heart rate is in high 90s to low 100s. INR 1.9. Continue warfarin 6 mg daily 08/23: INR 2.6 therapeutic. 08/24: Patient had sinus pause last night about 4.7-second therefore cardiology discontinued. Discussed with the child specialist. Will need outpatient event monitor after discharge from 08/25: Patient did not had sinus pause but had AV conduction block of about 3.27- second. Discussed with the child specialist Dr. Ramesh. He is okay with the patient being discharged on carvedilol 3.125 mg twice daily as the patient has A-fib with slow conduction, flutter and there is no sinus pause. Patient has asymptomatic bradycardia and carvedilol indicated and needed for heart failure with EF 20% 3 (more content not included)...[facility]04-06-2025 Progress note Author Samantha Gary [facility] Note Date/Time August 25, 2024 2:20 am [facility] Medical Records Department [address] [address] Progress Note - Hospitalist 08/25/24 0219 MR#: [id number] Acct: [id number] Name: CLARIBEL ALLISON Rep #:[id number] : 1955 69 From: Samantha Gary MD PCP: Dr. Abdulaziz Ackerman MD Status:A DM IN Location: [place] [address] Hospitalist Note Patient with asymptomatic 4.49 sec pause. Cardiology following. 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 Ramesh most recent note. 08/25/24219 <Electronically signed by Samantha Gary MD> Cosigner Signature (if applicable): CC: ~ Signed [facility] Work Phone: 1(760) 570-561704-06-2025 Progress note [facility] Medical Records Department [address] [facility] [place] [address] Progress Note - Hospitalist 08/25/24 0219 MR#: [id number] Acct: [id number] Name: CLARIBEL ALLISON Lennie Rep #:[id number] : 1955 69 From: Samantha Gary MD PCP: Dr. Abdulaziz Ackerman MD Status:A DM IN Location: [place] [address] Hospitalist Note Patient with asymptomatic 4.49 sec pause. Cardiology following. 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 Ramesh most recent note. 08/25/24219 Cosigner Signature (if applicable): CC: ~ Signed [facility]04-05-2025 Progress note Author [facility] Note Date/Time August 24, 2024 3:18 pm [facility] Medical Records Department [address] [place] [address] Progress Note - Cardiology 08/24/24 1506 MR#: [id number] Acct: [id number] Name: CLARIBEL ALLISON Rep #:[id number] : 1955 69 From: Felicia bradford MD PCP: Dr. Abdulaziz Ackerman MD Status:A DM IN Location: [place] [address] Subjective Subjective Patient is doing well. Denies any significant complaints. Telemetry revealed some pauses. Longest pause was 4.7 seconds. This was preceded by a 4.1-second pause with what appears to be a ventricular escape beat in between. Objective Data Vital Signs: Vital Signs Temp Pulse Resp BP Pulse Ox O2 Del Method O2 Flow Rate 98.2 F 78 18 140/83 H 95 Room Air 3 08/24/24 14:40 08/24/24 14:40 08/24/24 14:40 08/24/24 14:40 08/24/24 14:40 08/24/24 14:40 08/22/24 07:13 Oxygen Flow Rate (L/min) 3 Oxygen Delivery Method Room Air Weight: 209 lb 3.499 oz Body Mass Index (BMI) 34.8 Intake & Output: Intake and Output for Last 24 Hours 08/22/24 08/23/24 08/24/24 23:59 23:59 23:59 Intake Total 970.00 / 970.00 551.2 / 831.2 1020 / 1020 Output Total 2100 / 2650 2300 / 2300 Balance -1130.00 / -1680.00 -1748.8 / -1468.8 1020 / 1020 Lab / Micro Data 08/24/24 05:55 08/24/24 05:55 Labs: Laboratory Results - last 24 hr 08/24/24 05:55: WBC 6.3, RBC 4.75, Hgb 9.7 L, Hct 33.9 L, MCV 71.4 L, MCH 20.4 L, MCHC 28.6 L, RDW Std Deviation 49.5 H, RDW Coeff of Ele 19.7 H, Plt Count 198,MPV 10.2, Immature Gran % (Auto) 0.200, Neut % (Auto) 67.8, Lymph % (Auto) 20.7,Swift % (Auto) 8.6, Eos % (Auto) 2.1, Baso % (Auto) 0.6, Absolute Neuts (auto) 4.3, Absolute Lymphs (auto) 1.30, Nucleated RBC % 0, PT 35.3 H, INR 3.4, Sodium 138, Potassium 2.8 L, Chloride 98, Carbon Dioxide 25.9, Anion Gap 14, BUN 31 H, Creatinine 1.22 H, Estim Creat Clear Calc 50.97, Est GFR (MDRD) Non-Af 49 L, BUN/Creatinine Ratio 25.5 H, Glucose 115 H, Calcium 8.6, Phosphorus 4.7 H, Magnesium 1.9 Rhythm Strip Rhythm Strip: A-fib Rate: 125 Cardiology Labs/Tests 04/05/25 05:55: WBC 6.3, RBC 4.75, Hgb 9.7 L, Hct 33.9 L, MCV 71.4 L, MCH 20.4 L, MCHC 28.6 L, Plt Count 198, MPV 10.2, Immature Gran % (Auto) 0.200, Neut % (Auto) 67.8, Lymph % (Auto) 20.7, Swift % (Auto) 8.6, Eos % (Auto) 2.1, Baso % (Auto) 0.6, Absolute Neuts (auto) 4.3, Nucleated RBC % 0, PT 35.3 H, INR 3.4, Sodium 138, Potassium 2.8 L, Chloride 98, Carbon Dioxide 25.9, Anion Gap 14, BUN31 H, Creatinine 1.22 H, Est GFR (MDRD) Non-Af 49 L, BUN/Creatinine Ratio 25.5 H, Glucose 115 H, Calcium 8.6, Phosphorus 4.7 H, Magnesium 1.9 Rhythm: EKG: ECHO: Stress Test: Cardiac Cath: PCI: CT Surgery: Holter monitor: EPS: PPM: CXR: Chest CT Scan: Physical Exam Const alert Resp normal respiratory effort Extremity Extremity Narrative: 1-2+ edema Psych mental status grossly normal Assessment & Plan Assessment/Plan (1) Cardiac LV ejection fraction of 20-34%: (2) Heart failure with reduced ejection fraction: (3) Paroxysmal atrial fibrillation with RVR: (4) Bradycardia: PLAN: Plan Patient has low potassium and it is being replaced. Patient will probably need 10 to 20 mEq of potassium when she takes 40 mg of Lasix as an outpatient. We can start with this dose and this can be checked closely as an outpatient. Patient came in with A-fib with RVR. She was started on metoprolol and then is currently on Coreg but has been having some pauses followed by A-fib with normalventricular response. Her Coreg dose this morning was held. We can started back at 3.125 mg twice daily in view of her presentation with A-fib with RVR andher low EF. She may benefit from Holter or event monitoring at the time of discharge. 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 She will need to be closely followed as an outpatient. Charges/Coding Visit Charges Inpatient E&M: 45933 Subs Hosp L1 08/24/24 1518 <Electronically signed by Felicia Ramesh MD> Cosigner Signature (if applicable): CC: ~ Signed [facility] Work Phone: 1(357) 949-906604-05-2025 Progress note Author Iglesia Benson [facility] Note Date/Time August 24, 2024 3:01 pm [facility] Medical Records Department [address] [place] [address] Progress Note - Hospitalist 08/24/24 1240 MR#: [id number] Acct: [id number] Name: CLARIBEL ALLISON Rep #:[id number] : 1955 69 From: Iglesia Flynn PCP: Dr. 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 (08/21/24) Objective Data Objective Data Vital Signs: Vital Signs Temp Pulse Resp BP Pulse Ox O2 Del Method O2 Flow Rate 97.5 F L 82 18 103/62 94 Room Air 3 08/24/24 08:20 08/24/24 08:20 08/24/24 08:20 08/24/24 08:20 08/24/24 08:20 08/24/24 08:29 08/22/24 07:13 Oxygen Flow Rate (L/min) 3 Oxygen Delivery Method Room Air Weight: 209 lb 3.499 oz Body Mass Index (BMI) 34.8 Intake & Output: Intake and Output for Last 24 Hours 08/22/24 08/23/24 08/24/24 23:59 23:59 23:59 Intake Total 970.00 / 970.00 551.2 / 831.2 1020 / 1020 Output Total 2100 / 2650 2300 / 2300 Balance -1130.00 / -1680.00 -1748.8 / -1468.8 1020 / 1020 Lab / Micro Data 08/24/24 05:55 08/24/24 05:55 Labs: Laboratory Results - last 24 hr 08/24/24 05:55: WBC 6.3, RBC 4.75, Hgb 9.7 L, Hct 33.9 L, MCV 71.4 L, MCH 20.4 L, MCHC 28.6 L, RDW Std Deviation 49.5 H, RDW Coeff of Ele 19.7 H, Plt Count 198,MPV 10.2, Immature Gran % (Auto) 0.200, Neut % (Auto) 67.8, Lymph % (Auto) 20.7,Swift % (Auto) 8.6, Eos % (Auto) 2.1, Baso % (Auto) 0.6, Absolute Neuts (auto) 4.3, Absolute Lymphs (auto) 1.30, Nucleated RBC % 0, PT 35.3 H, INR 3.4, Sodium 138, Potassium 2.8 L, Chloride 98, Carbon Dioxide 25.9, Anion Gap 14, BUN 31 H, Creatinine 1.22 H, Estim Creat Clear Calc 50.97, Est GFR (MDRD) Non-Af 49 L, BUN/Creatinine Ratio 25.5 H, Glucose 115 H, Calcium 8.6, Phosphorus 4.7 H, Magnesium 1.9 Rhythm Strip Rhythm Strip: A-fib Rate: 125 Physical Exam Narrative The patient wants to go home but advised to stay. She had about 4.7-second of pause on carvedilol therefore carvedilol is discontinued. Discussed with the child specialist. She also has severe hypokalemia. Shortness of breath is improved Physical exam General: Alert, Oriented x3, Cooperative HEENT: Atraumatic, PERRLA, EOMI, Normocephalic Oral: Oral mucosa moist. No Gingival or Mucosal Lesions/ Ulcerations Neck: Supple, bilateral JVD, Negative Carotid Bruits Chest wall/Lungs: Air entry diminished in all lung henderson. Lung sounds clear. No crepitation Cardiovascular: Irregular rhythm, A-fib RVR, No M/G/R Abdomen: Bowel Sounds Present, Soft, Non Tender, nondistended : No dysuria. No renal angle tenderness. No suprapubic tenderness. Extremities: Bilateral 2+ pitting, below knee edema, Capillary Refill Less than 3 Seconds Skin: Tiny right lower leg erosion/superficial ulcer/drainage, improved with Acewrap bandage. Musculoskeletal: No Tenderness to Palpation of Joints or Extremities. ROM restricted due to swelling. Neurological: Cranial nerves II-XII grossly intact, DTR 2+/4. No acute focal neurological deficit. Psych/Mental Status: Flat affect. Chronic anxiety Assessment & Plan Assessment/Plan (1) Acute exacerbation of CHF (congestive heart failure): (2) Paroxysmal atrial fibrillation with RVR: PLAN: Plan 69-year-old female admitted with 3 months of progressive worsening of shortness of breath, dyspnea at rest, orthopnea, anasarca and chest x-ray findings suggestive of heart failure exacerbation 1. Subacute debility/dyspnea at rest due to acute on chronic HFpEF: Patient is being admitted in PCU. Chest x-ray newly reviewed and shows pulmonary congestion/edema. 60 mg IV Lasix given in ER physician and then started on furosemide drip 10 mg/h. Heart failure core measures including intake and output, fluid restriction less than 1800 mL, daily weight monitoring, kidney andelectrolytes monitoring. 2D echo ordered. Nitroglycerin ointment ordered for preload reduction 08/22: Dyspnea is much better and has resolved. Sitting comfortable. Discontinuenitroglycerin ointment as patient having headache. Discussed with the child specialist consult consult reviewed. Continue furosemide drip 10 mg/h. Empagliflozin 10 mg daily. Spironolactone dose increased to 50 mg daily. Echo reviewed, global hypokinesis, EF 20%. 1-2+ MR. LA moderately enlarged RA mildly enlarged. Troponins mildly enlarged 36, 44 and 45. proBNP about 4000 overall suggestive of increased LV overload therefore due to cardiac demand ischemia. No need to repeat cath as patient was found of nonobstructive coronaries in October 202208/23: Furosemide drip is discontinued. She has jump in creatinine 0.87-1.35 in 48 hours therefore meets criteria for LILLI due to diuretic therefore will hold furosemide today and start frusemide 40 mg p.o. twice daily from tomorrow. K low 3.3 but patient on spironolactone dose increased to 50 mg daily. 08/24: Slightly better 1.22. Furosemide 40 mg oral twice daily. Continue spironolactone 50 mg daily. Hypokalemia: Potassium 2.3.3.8 even on the spironolactone. Potassium replacement ordered. Phosphorus high 4.7, magnesium normal. Continue potassiumand magnesium supplement with diuretic Lasix 2. A-fib RVR and history of chronic PE.: Patient is still tachycardic. Heart rate 133 permanent. Metoprolol 5 mg IV given and then oral 25 mg twice daily. A-fib RVR mainly due to adrenergic response from heart failure. PT/INR ordered. On warfarin 4 mg daily continued. Tachycardia expected to get better with diuresis. 08/22: Carvedilol 6.25 mg p.o. twice daily 1 cardiac strip shows A-fib with heart rate in 30s. Currently her heart rate is in high 90s to low 100s. INR 1.9. Continue warfarin 6 mg daily 08/23: INR 2.6 therapeutic. 08/24: Patient had sinus pause last night about 4.7-second therefore cardiology discontinued. Discussed with the child specialist. Will need outpatient event monitor after discharge from 3. Nonobstructive CAD/non-STEMI: Patient was last admitted in October 2022 for non-STEMI. At that time diagnostic cardiac cath showed EF 60%, normal LV wall motion and systolic function. No significant obstructive coronary vessels found. 4. Chronic left knee degenerative arthritis: PT and OT ordered. Pain can 5. Essential hypertension: Blood pressure is high in triage. Is getting better. Patient already on furosemide drip and metoprolol. Titrate according to blood pressure. 08/22: Lisinopril 20 mg daily 6. Chronic thoracoabdominal aortic aneurysm: Last seen in vascular surgery clinic in November 2022. CTA imaging at that time showed 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 largest in the mid/distal descending thoracic aorta. Advised to continue follow-up with Dr. Tucker Dodson. 7. Anxiety depression/insomnia: Xanax 0.25 mg p.o. 3 times daily as needed for anxiety started DVT prophylaxis, high risk with history of chronic PE: On warfarin. Living will/advanced directive/end of life care: Patient does not have living will or advanced directive or designated power of commercial attorney for health. His sister is next to kin. After discussion of benefits/risks procedures involved with full code, DNR CC arrest and DNR CC, the patient opted for full code. Patient does want artificial life support including intubation, tube feed, ventilator and/chest compression, central venous catheter, vasopressor and DC shock if needed Total time spent in [facility]sls-[facility] encounter in discussion of advanced directive 17 minutes. Laboratory Results 08/24/24 05:55: WBC 6.3, RBC 4.75, Hgb 9.7 L, Hct 33.9 L, MCV 71.4 L, MCH 20.4 L, MCHC 28.6 L, RDW Std Deviation 49.5 H, RDW Coeff of Ele 19.7 H, Plt Count 198,MPV 10.2, Immature Gran % (Auto) 0.200, Neut % (Auto) 67.8, Lymph % (Auto) 20.7,Swift % (Auto) 8.6, Eos % (Auto) 2.1, Baso % (Auto) 0.6, Absolute Neuts (auto) 4.3, Absolute Lymphs (auto) 1.30, Nucleated RBC % 0, PT 35.3 H, INR 3.4, Sodium 138, Potassium 2.8 L, Chloride 98, Carbon Dioxide 25.9, Anion Gap 14, BUN 31 H, Creatinine 1.22 H, Estim Creat Clear Calc 50.97, Est GFR (MDRD) Non-Af 49 L, BUN/Creatinine Ratio 25.5 H, Glucose 115 H, Calcium 8.6, Phosphorus 4.7 H, Magnesium 1.9 Clinical Impression(s) from Imaging Studies Chest X-Ray 08/21/24 11:32 IMPRESSION: Cardiomegaly with mild congestion. Echocardiogram 08/21/24 14:27 Interpretation Summary Normal LV size. The left ventricular ejection fraction is 20 %. There is severe global hypokinesis of the left ventricle. The left atrium is moderately enlarged. Mild-Moderate (1-2+) eccentric mitral valve insufficiency. Mildly dilated aortic root. The right atrium is mildly enlarged. Echo 11/08/2022 Interpretation Summary Normal LV size. Mild concentric left ventricular hypertrophy. Mild to moderate (1-2+) tricuspid valve insufficiency. Mildly dilated aortic root. Dilated descending aorta. The estimated ejection fraction is 55 %. Left ventricular systolic function is normal. Stage 2 diastolic dysfunction. 08/24/24 3866 <Electronically signed by Iglesia Benson MD> Cosigner Signature (if applicable): CC: ~ Signed [facility] Work Phone: 1(745) 627-724304-05-2025 Progress note [facility] Medical Records Department [address] [place] [address] Progress Note - Cardiology 08/24/24 1506 MR#: [id number] Acct: [id number] Name: CLARIBEL ALLISON Rep #:[id number] : 1955 69 From: Felicia bradford MD PCP: Dr. Abdulaziz Ackerman MD Status:A DM IN Location: [place] [address] Subjective Subjective Patient is doing well. Denies any significant complaints. Telemetry revealed some pauses. Longest pause was 4.7 seconds. This was preceded by a 4.1-second pause with what appears to be a ventricular escape beat in between. Objective Data Vital Signs: Vital Signs Temp Pulse Resp BP Pulse Ox O2 Del Method O2 Flow Rate 98.2 F 78 18 140/83 H 95 Room Air 3 08/24/24 14:40 08/24/24 14:40 08/24/24 14:40 08/24/24 14:40 08/24/24 14:40 08/24/24 14:40 08/22/24 07:13 Oxygen Flow Rate (L/min) 3 Oxygen Delivery Method Room Air Weight: 209 lb 3.499 oz Body Mass Index (BMI) 34.8 Intake & Output: Intake and Output for Last 24 Hours 08/22/24 08/23/24 08/24/24 23:59 23:59 23:59 Intake Total 970.00 / 970.00 551.2 / 831.2 1020 / 1020 Output Total 2100 / 2650 2300 / 2300 Balance -1130.00 / -1680.00 -1748.8 / -1468.8 1020 / 1020 Lab / Micro Data 08/24/24 05:55 08/24/24 05:55 Labs: Laboratory Results - last 24 hr 08/24/24 05:55: WBC 6.3, RBC 4.75, Hgb 9.7 L, Hct 33.9 L, MCV 71.4 L, MCH 20.4 L, MCHC 28.6 L, RDW Std Deviation 49.5 H, RDW Coeff of Ele 19.7 H, Plt Count 198,MPV 10.2, Immature Gran % (Auto) 0.200,Neut % (Auto) 67.8, Lymph % (Auto) 20.7,Swift % (Auto) 8.6, Eos % (Auto) 2.1, Baso % (Auto) 0.6, Absolute Neuts (auto) 4.3, Absolute Lymphs (auto) 1.30, Nucleated RBC % 0, PT 35.3 H, INR 3.4, Sodium 138, Potassium 2.8 L, Chloride 98, Carbon Dioxide 25.9, Anion Gap 14, BUN 31 H, Creatinine 1.22 H, Estim Creat Clear Calc 50.97, Est GFR (MDRD) Non-Af 49 L, BUN/Creatinine Ratio 25.5 H, Glucose 115 H, Calcium 8.6, Phosphorus 4.7 H, Magnesium 1.9 Rhythm Strip Rhythm Strip: A-fib Rate: 125 Cardiology Labs/Tests 08/24/24 05:55: WBC 6.3, RBC 4.75, Hgb 9.7 L, Hct 33.9 L, MCV 71.4 L, MCH 20.4 L, MCHC 28.6 L, Plt Count 198, MPV 10.2, Immature Gran % (Auto) 0.200, Neut % (Auto) 67.8, Lymph % (Auto) 20.7, Swift % (Auto) 8.6, Eos % (Auto) 2.1, Baso % (Auto) 0.6, Absolute Neuts (auto) 4.3, Nucleated RBC % 0, PT 35.3 H, INR 3.4, Sodium 138, Potassium 2.8 L, Chloride 98, Carbon Dioxide 25.9, Anion Gap 14, BUN31 H, Creatinine 1.22 H, Est GFR (MDRD) Non-Af 49 L, BUN/Creatinine Ratio 25.5 H, Glucose 115 H, Calcium 8.6, Phosphorus 4.7 H, Magnesium 1.9 Rhythm: EKG: ECHO: Stress Test: Cardiac Cath: PCI: CT Surgery: Holter monitor: EPS: PPM: CXR: Chest CT Scan: Physical Exam Const alert Resp normal respiratory effort Extremity Extremity Narrative: 1-2+ edema Psych mental status grossly normal Assessment & Plan Assessment/Plan (1) Cardiac LV ejection fraction of 20-34%: (2) Heart failure with reduced ejection fraction: (3) Paroxysmal atrial fibrillation with RVR: (4) Bradycardia: PLAN: Plan Patient has low potassium and it is being replaced. Patient will probably need 10 to 20 mEq of potassium when she takes 40 mg of Lasix as an outpatient. We can start with this dose and this can be checked closely as an outpatient. Patient came in with A-fib with RVR. She was started on metoprolol and then is currently on Coreg but has been having some pauses followed by A-fib with normalventricula r response. Her Coreg dose this morning was held. We can started back at 3.125 mg twice daily in view of her presentation with A-fib with RVR andher low EF. She may benefit from Holter or event monitoring at the time of discharge. 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 She will need to be closely followed as an outpatient. Charges/Coding Visit Charges Inpatient E&M: 62121 [facility] H[facility] L1 08/24/24 1518 Cosigner Signature (if applicable): CC: ~ Signed [facility]04-05-2025 Progress note [facility] Medical Records Department [address] [place] [address] Progress Note - Hospitalist 08/24/24 1240 MR#: [id number] Acct: [id number] Name: CLARIBEL ALLISON Rep #:[id number] : 1955 69 From: Iglesia Flynn PCP: Dr. 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 (08/21/24) Objective Data Objective Data Vital Signs: Vital Signs Temp Pulse Resp BP Pulse Ox O2 Del Method O2 Flow Rate 97.5 F L 82 18 103/62 94 Room Air 3 04/05/25 08:20 08/24/24 08:20 08/24/24 08:20 08/24/24 08:20 08/24/24 08:20 08/24/24 08:29 08/22/24 07:13 Oxygen Flow Rate (L/min) 3 Oxygen Delivery Method Room Air Weight: 209 lb 3.499 oz Body Mass Index (BMI) 34.8 Intake & Output: Intake and Output for Last 24 Hours 08/22/24 08/23/24 08/24/24 23:59 23:59 23:59 Intake Total 970.00 / 970.00 551.2 / 831.2 1020 / 1020 Output Total 2100 / 2650 2300 / 2300 Balance -1130.00 / -1680.00 -1748.8 / -1468.8 1020 / 1020 Lab / Micro Data 08/24/24 05:55 08/24/24 05:55 Labs: Laboratory Results - last 24 hr 08/24/24 05:55: WBC 6.3, RBC 4.75, Hgb 9.7 L, Hct 33.9 L, MCV 71.4 L, MCH 20.4 L, MCHC 28.6 L, RDW Std Deviation 49.5 H, RDW Coeff of Ele 19.7 H, Plt Count 198,MPV 10.2, Immature Gran % (Auto) 0.200,Neut % (Auto) 67.8, Lymph % (Auto) 20.7,Swift % (Auto) 8.6, Eos % (Auto) 2.1, Baso % (Auto) 0.6, Absolute Neuts (auto) 4.3, Absolute Lymphs (auto) 1.30, Nucleated RBC % 0, PT 35.3 H, INR 3.4, Sodium 138, Potassium 2.8 L, Chloride 98, Carbon Dioxide 25.9, Anion Gap 14, BUN 31 H, Creatinine 1.22 H, Estim Creat Clear Calc 50.97, Est GFR (MDRD) Non-Af 49 L, BUN/Creatinine Ratio 25.5 H, Glucose 115 H, Calcium 8.6, Phosphorus 4.7 H, Magnesium 1.9 Rhythm Strip Rhythm Strip: A-fib Rate: 125 Physical Exam Narrative The patient wants to go home but advised to stay. She had about 4.7-second of pause on carvedilol therefore carvedilol is discontinued. Discussed with the child specialist. She also has severe hypokalemia. Shortness of breath is improved Physical exam General: Alert, Oriented x3, Cooperative HEENT: Atraumatic, PERRLA, EOMI, Normocephalic Oral: Oral mucosa moist. No Gingival or Mucosal Lesions/ Ulcerations Neck: Supple, bilateral JVD, Negative Carotid Bruits Chest wall/Lungs: Air entry diminished in all lung henderson. Lung sounds clear. No crepitation Cardiovascular: Irregular rhythm, A-fib RVR, No M/G/R Abdomen: Bowel Sounds Present, Soft, Non Tender, nondistended : No dysuria. No renal angle tenderness. No suprapubic tenderness. Extremities: Bilateral 2+ pitting, below knee edema, Capillary Refill Less than 3 Seconds Skin: Tiny right lower leg erosion/superficial ulcer/drainage, improved with Acewrap bandage. Musculoskeletal: No Tenderness to Palpation of Joints or Extremities. ROM restricted due to swelling. Neurological: Cranial nerves II-XII grossly intact, DTR 2+/4. No acute focal neurological deficit. Psych/Mental Status: Flat affect. Chronic anxiety Assessment & Plan Assessment/Plan (1) Acute exacerbation of CHF (congestive heart failure): (2) Paroxysmal atrial fibrillation with RVR: PLAN: Plan 69-year-old female admitted with 3 months of progressive worsening of shortness of breath, dyspnea at rest, orthopnea, anasarca and chest x-ray findings suggestive of heart failure exacerbation 1. Subacute debility/dyspnea at rest due to acute on chronic HFpEF: Patient is being admitted in PCU. Chest x-ray newly reviewed and shows pulmonary congestion/edema. 60 mg IV Lasix given in ER physician and then started on furosemide drip 10 mg/h. Heart failure core measures including intake and ou tput, fluid restriction less than 1800 mL, daily weight monitoring, kidney andelectrolytes monitoring. 2D echo ordered. Nitroglycerin ointment ordered for preload reduction 4/3: Dyspnea is much better and has resolved. Sitting comfortable. Discontinuenitroglycerin ointment as patient having headache. Discussed with the child specialist consult consult reviewed. Continue furosemide drip 10 mg/h. Empagliflozin 10 mg daily. Spironolactone dose increased to 50 mg daily. Echo r alond, global hypokinesis, EF 20%. 1-2+ MR. LA moderately enlarged RA mildly enlarged. Troponins mildly enlarged 36, 44 and 45. proBNP about 4000 overall suggestive of increased LV overload therefore due to cardiac demand ischemia. No need to repeat cath as patient was found of nonobstructive coronaries in October 202208/23: Furosemide drip is discontinued. She has jump in creatinine 0.87-1.35 in 48 hours therefore meets criteria for LILLI due to diuretic therefore will hold furosemide today and start frusemide 40 mg p.o. twice daily from tomorrow. K low 3.3 but patient on spironolactone dose increased to 50 mg daily. 08/24: Slightly better 1.22. Furosemide 40 mg oral twice daily. Continue spironolactone 50 mg daily. Hypokalemia: Potassium 2.3.3.8 even on the spironolactone. Potassium replacement ordered. Phosphorus high 4.7, magnesium normal. Continue potassiumand magnesium supplement with diuretic Lasix 2. A-fib RVR and history of chronic PE.: Patient is still tachycardic. Heart rate 133 permanent. Metoprolol 5 mg IV given and then oral 25 mg twice daily. A- fib RVR mainly due to adrenergic response from heart failure. PT/INR ordered. On warfarin 4 mg daily continued. Tachycardia expected to get better with diuresis. 08/22: Carvedilol 6.25 mg p.o. twice daily 1 cardiac strip shows A-fib with heart rate in 30s. Currently her heart rate is in high 90s to low 100s. INR 1.9. Continue warfarin 6 mg daily 08/23: INR 2.6 therapeutic. 08/24: Patient had sinus pause last night about 4.7-second therefore cardiology discontinued. Discussed with the child specialist. Will need outpatient event monitor after discharge from 3. Nonobstructive CAD/non-STEMI: Patient was last admitted in October 2022 for non- STEMI. At that timediagnostic cardiac cath showed EF 60%, normal LV wall motion and systolic function. No significant obstructive coronary vessels found. 4. Chronic left knee degenerative arthritis: PT and OT ordered. Pain can 5. Essential hypertension: Blood pressure is high in triage. Is getting better. Patient already on furosemide drip and metoprolol. Titrate according to blood pressure. 08/22: Lisinopril 20 mg daily 6. Chronic thoracoabdominal aortic aneurysm: Last seen in vascular surgery clinic in November 2022. CTAimaging at that time showed 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 largest in the mid/distal descending thoracic aorta. Advised to continue follow-up with Dr. Tucker Dodson. 7. Anxiety depression/insomnia: Xanax 0.25 mg p.o. 3 times daily as needed for anxiety started DVT prophylaxis, high risk with history of chronic PE: On warfarin. Living will/advanced directive/end of life care: Patient does not have living will or advanced directive or designated power of commercial attorney for health. His sister is next to kin. After discussion of benefits/risks procedures involved with full code, DNR CC arrest and DNR CC, the patient opted for fullcode. Patient does want artificial life support including intubation, tube feed, ventilator and/chest compression, central venous catheter, vasopressor and DC shock if needed Total time spent in urrz-go-[id number] encounter in discussion of advanced directive 17 minutes. Laboratory Results 08/24/24 05:55: WBC 6.3, RBC 4.75, Hgb 9.7 L, Hct 33.9 L, MCV 71.4 L, MCH 20.4 L, MCHC 28.6 L, RDW Std Deviation 49.5 H, RDW Coeff of Ele 19.7 H, Plt Count 198,MPV 10.2, Immature Gran % (Auto) 0.200,Neut % (Auto) 67.8, Lymph % (Auto) 20.7,Swift % (Auto) 8.6, Eos % (Auto) 2.1, Baso % (Auto) 0.6, Absolute Neuts (auto) 4.3, Absolute Lymphs (auto) 1.30, Nucleated RBC % 0, PT 35.3 H, INR 3.4, Sodium 138, Potassium 2.8 L, Chloride 98, Carbon Dioxide 25.9, Anion Gap 14, BUN 31 H, Creatinine 1.22 H, Estim Creat Clear Calc 50.97, Est GFR (MDRD) Non-Af 49 L, BUN/Creatinine Ratio 25.5 H, Glucose 115 H, Calcium 8.6, Phosphorus 4.7 H, Magnesium 1.9 Clinical Impression(s) from Imaging Studies Chest X-Ray 08/21/24 11:32 IMPRESSION: Cardiomegaly with mild congestion. Echocardiogram 08/21/24 14:27 Interpretation Summary Normal LV size. The left ventricular ejection fraction is 20 %. There is severe global hypokinesis of the left ventricle. The left atrium is moderately enlarged. Mild-Moderate (1-2+) eccentric mitral valve insufficiency. Mildly dilated aortic root. The right atrium is mildly enlarged. Echo 11/08/2022 Interpretation Summary Normal LV size. Mild concentric left ventricular hypertrophy. Mild to moderate (1-2+) tricuspid valve insufficiency. Mildly dilated aortic root. Dilated descending aorta. The estimated ejection fraction is 55 %. Left ventricular systolic function is normal. Stage 2 diastolic dysfunction. 08/24/24 1501 Cosigner Signature (if applicable): CC: ~ Signed [facility]04-05-2025 Progress note Author [facility] Note Date/Time August 24, 2024 12:0 3am [facility] Medical Records Department [address] [place] [address] Progress Note - Hospitalist 08/24/24 0002 MR#: [id number] Acct: [id number] Name: CHELECLARIBEL Lennie Rep #:[id number] : 1955 69 From: Samantha Gary MD PCP: Dr. Abdulaziz Ackerman MD Status:A DM IN Location: [place] [address] Hospitalist Note Patient with 4.7 sec asymptomatic pause on monitor. Noted patient on BB therapy per Cardiology addition recently. Will need to continue to closely monitor and may need to adjust meds if ongoing. 08/24/24 0003 <Electronically signed by Samantha Gary MD> Cosigner Signature (if applicable): CC: ~ Signed [facility] Work Phone: [phone]) 306-975604-05-2025 Progress note [facility] Medical Records Department [address] [place] [address] Progress Note - Hospitalist 08/24/24 0002 MR#: [id number] Acct: [id number] Name: CLARIBEL ALLISON Lennie Rep #:[id number] : 1955 69 From: Samantha Gary MD PCP: Dr. Abdulaziz Ackerman MD Status:A DM IN Location: [place] [address] Hospitalist Note Patient with 4.7 sec asymptomatic pause on monitor. Noted patient on BB therapy per Cardiology addition recently. Will need to continue to closely monitor and may need to adjust meds if ongoing. 08/24/24 0003 Cosigner Signature (if applicable): CC: ~ Signed [facility]04-04-2025 Progress note Author Iglesia Benson [facility] Note Date/Time August 23, 2024 1:05 pm [facility] Medical Records Department [address] [address] Progress Note - Hospitalist 08/23/24 1257 MR#: [id number] Acct: [id number] Name: CLARIBEL ALLISON Rep #:[id number] : 1955 69 From: Iglesia Flynn PCP: Dr. Abdulaziz Ackerman MD Status:A DM IN Location: [place] [address] Reason for Visit Reason for Visit: Diagnoses Iron deficiency anemia, unspecified (08/21/24) Paroxysmal atrial fibrillation (08/21/24) Unspecified systolic (congestive) heart failure (08/21/24) Heart failure, unspecified (08/21/24) Supraceliac aneurysm of the thoracoabdominal aorta, without rupture (08/21/24) senior care (current) use of 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s (08/21/24) Objective Data Objective Data Vital Signs: Vital Signs Temp Pulse Resp BP Pulse Ox O2 Del Method O2 Flow Rate 97.6 F L 93 18 124/62 H 92 Room Air 3 08/23/24 09:15 08/23/24 09:15 08/23/24 09:15 08/23/24 09:15 08/23/24 09:15 08/23/24 09:52 08/22/24 07:13 Oxygen Flow Rate (L/min) 3 Oxygen Delivery Method Room Air Weight: 210 lb 5.136 oz Body Mass Index (BMI) 34.9 Intake & Output: Intake and Output for Last 24 Hours 08/21/24 08/22/24 08/23/24 23:59 23:59 23:59 Intake Total 360 / 600 970.00 / 970.00 11.2 / 11.2 Output Total 2100 / 2650 1850 / 1850 Balance 360 / -400 -1130.00 / -1680.00 -1838.8 / -1838.8 Lab / Micro Data 08/23/24 05:23 08/23/24 05:23 Labs: Laboratory Results - last 24 hr 08/23/24 05:23: WBC 7.0, RBC 4.88, Hgb 9.9 L, Hct 35.7 L, MCV 73.2 L, MCH 20.3 L, MCHC 27.7 L, RDW Std Deviation 50.6 H, RDW Coeff of Ele 20.0 H, Plt Count 199,MPV 9.9, Immature Gran % (Auto) 0.300, Neut % (Auto) 67.2, Lymph % (Auto) 21.7, Swift % (Auto) 7.9, Eos % (Auto) 2.2, Baso % (Auto) 0.7, Absolute Neuts (auto) 4.7, Absolute Lymphs (auto) 1.51, Nucleated RBC % 0, PT 28.7 H, INR 2.6, Sodium 141, Potassium 3.3, Chloride 100, Carbon Dioxide 26.5, Anion Gap 14, BUN 29 H, Creatinine 1.35 H, Estim Creat Clear Calc 46.19 L, Est GFR (MDRD) Non-Af 43 L, BUN/Creatinine Ratio 21.3 H, Glucose 105 H, Calcium 8.7 Rhythm Strip Rhythm Strip: A-fib Rate: 125 Physical Exam Narrative Shortness of breath is much improved but the patient there mental health issue including anxiety restlessness and depression. She states she lost her grand kid very young and also many issues in the family. Physical exam General: Alert, Oriented x3, Cooperative HEENT: Atraumatic, PERRLA, EOMI, Normocephalic Oral: Oral mucosa moist. No Gingival or Mucosal Lesions/ Ulcerations Neck: Supple, bilateral JVD, Negative Carotid Bruits Chest wall/Lungs: Air entry diminished in all lung henderson. Lung sounds much clear. Cardiovascular: Irregular rhythm, A-fib RVR, No M/G/R Abdomen: Bowel Sounds Present, Soft, Non Tender, nondistended : No dysuria. No renal angle tenderness. No suprapubic tenderness. Extremities: Bilateral 3-4+ pitting, thigh edema, Capillary Refill Less than 3 Seconds Skin: Tiny right lower leg erosion/superficial ulcer/drainage, improved with Acewrap bandage. Musculoskeletal: No Tenderness to Palpation of Joints or Extremities. ROM restricted due to swelling. Neurological: Cranial nerves II-XII grossly intact, DTR 2+/4. No acute focal neurological deficit. Psych/Mental Status: Flat affect. In extreme distress and anxiety. Assessment & Plan Assessment/Plan (1) Acute exacerbation of CHF (congestive heart failure): (2) Paroxysmal atrial fibrillation with RVR: PLAN: Plan 69-year-old female admitted with 3 months of progressive worsening of shortness of breath, dyspnea at rest, orthopnea, anasarca and chest x-ray findings suggestive of heart failure exacerbation 1. Subacute debility/dyspnea at rest due to acute on chronic HFpEF: Patient is being admitted in PCU. Chest x-ray newly reviewed and shows pulmonary congestion/edema. 60 mg IV Lasix given in ER physician and then started on furosemide drip 10 mg/h. Heart failure core measures including intake and output, fluid restriction less than 1800 mL, daily weight monitoring, kidney andelectrolytes monitoring. 2D echo ordered. Nitroglycerin ointment ordered for preload reduction 4: Dyspnea is much better and has resolved. Sitting comfortable. Discontinuenitroglycerin ointment as patient having headache. Discussed with the child specialist consult consult reviewed. Continue furosemide drip 10 mg/h. Empagliflozin 10 mg daily. Spironolactone dose increased to 50 mg daily. Echo reviewed, global hypokinesis, EF 20%. 1-2+ MR. LA moderately enlarged RA mildly enlarged. Troponins mildly enlarged 36, 44 and 45. proBNP about 4000 overall suggestive of increased LV overload therefore due to cardiac demand ischemia. No need to repeat cath as patient was found of nonobstructive coronaries in October 2022 4: Furosemide drip is discontinued. She has jump in creatinine 0.87-1.35 in 48 hours therefore meets criteria for LILLI due to diuretic therefore will hold furosemide today and start frusemide 40 mg p.o. twice daily from tomorrow. K low 3.3 but patient on spironolactone dose increased to 50 mg daily. 2. A-fib RVR and history of chronic PE.: Patient is still tachycardic. Heart rate 133 permanent. Metoprolol 5 mg IV given and then oral 25 mg twice daily. A-fib RVR mainly due to adrenergic response from heart failure. PT/INR ordered. On warfarin 4 mg daily continued. Tachycardia expected to get better with diuresis. 08/22: Carvedilol 6.25 mg p.o. twice daily 1 cardiac strip shows A-fib with heart rate in 30s. Currently her heart rate is in high 90s to low 100s. INR 1.9. Continue warfarin 6 mg daily 08/23: INR 2.6 therapeutic. 3. Nonobstructive CAD/non-STEMI: Patient was last admitted in October 2022 for non-STEMI. At that time diagnostic cardiac cath showed EF 60%, normal LV wall motion and systolic function. No significant obstructive coronary vessels found. 4. Chronic left knee degenerative arthritis: PT and OT ordered. Pain can 5. Essential hypertension: Blood pressure is high in triage. Is getting better. Patient already on furosemide drip and metoprolol. Titrate according to blood pressure. 08/22: Lisinopril 20 mg daily 6. Chronic thoracoabdominal aortic aneurysm: Last seen in vascular surgery clinic in November 2022. CTA imaging at that time showed 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 largest in the mid/distal descending thoracic aorta. Advised to continue follow-up with Dr. Tucker Dodson. 7. Anxiety depression/insomnia: Xanax 0.25 mg p.o. 3 times daily as needed for anxiety started DVT prophylaxis, high risk with history of chronic PE: On warfarin. Living will/advanced directive/end of life care: Patient does not have living will or advanced directive or designated power of commercial attorney for health. His sister is next to kin. After discussion of benefits/risks procedures involved with full code, DNR CC arrest and DNR CC, the patient opted for full code. Patient does want artificial life support including intubation, tube feed, ventilator and/chest compression, central venous catheter, vasopressor and DC shock if needed Total time spent in [id number] encounter in discussion of advanced directive 17 minutes. Laboratory Results 08/23/24 05:23: WBC 7.0, RBC 4.88, Hgb 9.9 L, Hct 35.7 L, MCV 73.2 L, MCH 20.3 L, MCHC 27.7 L, RDW Std Deviation 50.6 H, RDW Coeff of Ele 20.0 H, Plt Count 199,MPV 9.9, Immature Gran % (Auto) 0.300, Neut % (Auto) 67.2, Lymph % (Auto) 21.7, Swift % (Auto) 7.9, Eos % (Auto) 2.2, Baso % (Auto) 0.7, Absolute Neuts (auto) 4.7, Absolute Lymphs (auto) 1.51, Nucleated RBC % 0, PT 28.7 H, INR 2.6, Sodium 141, Potassium 3.3, Chloride 100, Carbon Dioxide 26.5, Anion Gap 14, BUN 29 H, Creatinine 1.35 H, Estim Creat Clear Calc 46.19 L, Est GFR (MDRD) Non-Af 43 L, BUN/Creatinine Ratio 21.3 H, Glucose 105 H, Calcium 8.7 Clinical Impression(s) from Imaging Studies Chest X-Ray 08/21/24 11:32 IMPRESSION: Cardiomegaly with mild congestion. Echocardiogram 08/21/24 14:27 Interpretation Summary Normal LV size. The left ventricular ejection fraction is 20 %. There is severe global hypokinesis of the left ventricle. The left atrium is moderately enlarged. Mild-Moderate (1-2+) eccentric mitral valve insufficiency. Mildly dilated aortic root. The right atrium is mildly enlarged. Echo 11/08/2022 Interpretation Summary Normal LV size. Mild concentric left ventricular hypertrophy. Mild to moderate (1-2+) tricuspid valve insufficiency. Mildly dilated aortic root. Dilated descending aorta. The estimated ejection fraction is 55 %. Left ventricular systolic function is normal. Stage 2 diastolic dysfunction. Charges/Coding Visit Charges Inpatient E&M: 79374 Subs Hosp L2 08/23/24 1305 <Electronically signed by Iglesia Benson MD> Cosigner Signature (if applicable): CC: ~ Signed [facility] Work Phone: [phone] 398-961004-04-2025 Progress note [facility] Medical Records Department [address] [place] [address] Progress Note - Hospitalist 08/23/24 1257 MR#: [id number] Acct: [id number] Name: CLARIBEL ALLISON Rep #:[id number] : 1955 69 From: Iglesia Flynn PCP: Dr. 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) Objective Data Objective Data Vital Signs: Vital Signs Temp Pulse Resp BP Pulse Ox O2 Del Method O2 Flow Rate 97.6 F L 93 18 124/62 H 92 Room Air 3 08/23/24 09:15 08/23/24 09:15 08/23/24 09:15 08/23/24 09:15 08/23/24 09:15 08/23/24 09:52 08/22/24 07:13 Oxygen Flow Rate (L/min) 3 Oxygen Delivery Method Room Air Weight: 210 lb 5.136 oz Body Mass Index (BMI) 34.9 Intake & Output: Intake and Output for Last 24 Hours 08/21/24 08/22/24 08/23/24 23:59 23:59 23:59 Intake Total 360 / 600 970.00 / 970.00 11.2 / 11.2 Output Total 2100 / 2650 1850 / 1850 Balance 360 / -400 -1130.00 / -1680.00 -1838.8 / -1838.8 Lab / Micro Data 08/23/24 05:23 08/23/24 05:23 Labs: Laboratory Results - last 24 hr 08/23/24 05:23: WBC 7.0, RBC 4.88, Hgb 9.9 L, Hct 35.7 L, MCV 73.2 L, MCH 20.3 L, MCHC 27.7 L, RDW Std Deviation 50.6 H, RDW Coeff of Ele 20.0 H, Plt Count 199,MPV 9.9, Immature Gran % (Auto) 0.300, Neut % (Auto) 67.2, Lymph % (Auto) 21.7, Swift % (Auto) 7.9, Eos % (Auto) 2.2, Baso % (Auto) 0.7, Absolute Neuts (auto) 4.7, Absolute Lymphs (auto) 1.51, Nucleated RBC % 0, PT 28.7 H, INR 2.6, Sodium 141, Potassium 3.3, Chloride 100, Carbon Dioxide 26.5, Anion Gap 14, BUN 29 H, Creatinine 1.35 H, Estim Creat Clear Calc 46.19 L, Est GFR (MDRD) Non-Af 43 L, BUN/Creatinine Ratio 21.3 H, Glucose 105 H,Calcium 8.7 Rhythm Strip Rhythm Strip: A-fib Rate: 125 Physical Exam Narrative Shortness of breath is much improved but the patient there mental health issue including anxiety restlessness and depression. She states she lost her grand kid very young and also many issues in the family. Physical exam General: Alert, Oriented x3, Cooperative HEENT: Atraumatic, PERRLA, EOMI, Normocephalic Oral: Oral mucosa moist. No Gingival or Mucosal Lesions/ Ulcerations Neck: Supple, bilateral JVD, Negative Carotid Bruits Chest wall/Lungs: Air entry diminished in all lung henderson. Lung sounds much clear. Cardiovascular: Irregular rhythm, A-fib RVR, No M/G/R Abdomen: Bowel Sounds Present, Soft, Non Tender, nondistended : No dysuria. No renal angle tenderness. No suprapubic tenderness. Extremities: Bilateral 3-4+ pitting, thigh edema, Capillary Refill Less than 3 Seconds Skin: Tiny right lower leg erosion/superficial ulcer/drainage, improved with Acewrap bandage. Musculoskeletal: No Tenderness to Palpation of Joints or Extremities. ROM restricted due to swelling. Neurological: Cranial nerves II-XII grossly intact, DTR 2+/4. No acute focal neurological deficit. Psych/Mental Status: Flat affect. In extreme distress and anxiety. Assessment & Plan Assessment/Plan (1) Acute exacerbation of CHF (congestive heart failure): (2) Paroxysmal atrial fibrillation with RVR: PLAN: Plan 69-year-old female admitted with 3 months of progressive worsening of shortness of breath, dyspnea at rest, orthopnea, anasarca and chest x-ray findings suggestive of heart failure exacerbation 1. Subacute debility/dyspnea at rest due to acute on chronic HFpEF: Patient is being admitted in PCU. Chest x-ray newly reviewed and shows pulmonary congestion/edema. 60 mg IV Lasix given in ER physician and then started on furosemide drip 10 mg/h. Heart failure core measures including intake and ou tput, fluid restriction less than 1800 mL, daily weight monitoring, kidney andelectrolytes monitoring. 2D echo ordered. Nitroglycerin ointment ordered for preload reduction 08/22: Dyspnea is much better and has resolved. Sitting comfortable. Discontinuenitroglycerin ointment as patient having headache. Discussed with the child specialist consult consult reviewed. Continue furosemide drip 10 mg/h. Empagliflozin 10 mg daily. Spironolactone dose increased to 50 mg daily. Echo r eviewed, global hypokinesis, EF 20%. 1-2+ MR. LA moderately enlarged RA mildly enlarged. Troponins mildly enlarged 36, 44 and 45. proBNP about 4000 overall suggestive of increased LV overload therefore due to cardiac demand ischemia. No need to repeat cath as patient was found of nonobstructive coronaries in October 202208/23: Furosemide drip is discontinued. She has jump in creatinine 0.87-1.35 in 48 hours therefore meets criteria for LILLI due to diuretic therefore will hold furosemide today and start frusemide 40 mg p.o. twice daily from tomorrow. K low 3.3 but patient on spironolactone dose increased to 50 mg daily. 2. A-fib RVR and history of chronic PE.: Patient is still tachycardic. Heart rate 133 permanent. Metoprolol 5 mg IV given and then oral 25 mg twice daily. A- fib RVR mainly due to adrenergic response from heart failure. PT/INR ordered. On warfarin 4 mg daily continued. Tachycardia expected to get better with diuresis. 08/22: Carvedilol 6.25 mg p.o. twice daily 1 cardiac strip shows A-fib with heart rate in 30s. Currently her heart rate is in high 90s to low 100s. INR 1.9. Continue warfarin 6 mg daily 08/23: INR 2.6 therapeutic. 3. Nonobstructive CAD/non-STEMI: Patient was last admitted in October 2022 for non- STEMI. At that timediagnostic cardiac cath showed EF 60%, normal LV wall motion and systolic function. No significant obstructive coronary vessels found. 4. Chronic left knee degenerative arthritis: PT and OT ordered. Pain can 5. Essential hypertension: Blood pressure is high in triage. Is getting better. Patient already on furosemide drip and metoprolol. Titrate according to blood pressure. 08/22: Lisinopril 20 mg daily 6. Chronic thoracoabdominal aortic aneurysm: Last seen in vascular surgery clinic in November 2022. CTAimaging at that time showed 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 largest in the mid/distal descending thoracic aorta. Advised to continue follow-up with Dr. Tucker Dodson. 7. Anxiety depression/insomnia: Xanax 0.25 mg p.o. 3 times daily as needed for anxiety started DVT prophylaxis, high risk with history of chronic PE: On warfarin. Living will/advanced directive/end of life care: Patient does not have living will or advanced directive or designated power of commercial attorney for health. His sister is next to kin. After discussion of benefits/risks procedures involved with full code, DNR CC arrest and DNR CC, the patient opted for fullcode. Patient does want artificial life support including intubation, tube feed, ventilator and/chest compression, central venous catheter, vasopressor and DC shock if needed Total time spent in [id number]-ru-wqth encounter in discussion of advanced directive 17 minutes. Laboratory Results 08/23/24 05:23: WBC 7.0, RBC 4.88, Hgb 9.9 L, Hct 35.7 L, MCV 73.2 L, MCH 20.3 L, MCHC 27.7 L, RDW Std Deviation 50.6 H, RDW Coeff of Ele 20.0 H, Plt Count 199,MPV 9.9, Immature Gran % (Auto) 0.300, Neut % (Auto) 67.2, Lymph % (Auto) 21.7, Swift % (Auto) 7.9, Eos % (Auto) 2.2, Baso % (Auto) 0.7, Absolute Neuts (auto) 4.7, Absolute Lymphs (auto) 1.51, Nucleated RBC % 0, PT 28.7 H, INR 2.6, Sodium 141, Potassium 3.3, Chloride 100, Carbon Dioxide 26.5, Anion Gap 14, BUN 29 H, Creatinine 1.35 H, Estim Creat Clear Calc 46.19 L, Est GFR (MDRD) Non-Af 43 L, BUN/Creatinine Ratio 21.3 H, Glucose 105 H,Calcium 8.7 Clinical Impression(s) from Imaging Studies Chest X-Ray 08/21/24 11:32 IMPRESSION: Cardiomegaly with mild congestion. Echocardiogram 08/21/24 14:27 Interpretation Summary Normal LV size. The left ventricular ejection fraction is 20 %. There is severe global hypokinesis of the left ventricle. The left atrium is moderately enlarged. Mild-Moderate (1-2+) eccentric mitral valve insufficiency. Mildly dilated aortic root. The right atrium is mildly enlarged. Echo 11/08/2022 Interpretation Summary Normal LV size. Mild concentric left ventricular hypertrophy. Mild to moderate (1-2+) tricuspid valve insufficiency. Mildly dilated aortic root. Dilated descending aorta. The estimated ejection fraction is 55 %. Left ventricular systolic function is normal. Stage 2 diastolic dysfunction. Charges/Coding Visit Charges Inpatient E&M: 42585 Subs Hosp L2 08/23/24 1305 Cosigner Signature (if applicable): CC: ~ Signed [facility]04-04-2025 Progress note Author Jamal Munoz [facility] Note Date/Time August 23, 2024 8:18 am [facility] Medical Records Department [address] [place] [id number] Progress Note - Cardiology 08/23/24 0817 MR#: [id number] Acct: [id number] Name: CLARIBEL ALLISON Rep #:[id number] : 1955 69 From: Jamal Munoz MD PCP: Dr. Abdulaziz Ackerman MD Status:A DM IN Location: [place] [address] Subjective Subjective Patient seen and evaluated. Objective Data Vital Signs: Vital Signs Temp Pulse Resp BP Pulse Ox O2 Del Method O2 Flow Rate 97.4 F L 91 18 108/60 96 Room Air 3 08/23/24 03:15 08/23/24 03:15 08/23/24 03:15 08/23/24 03:15 08/23/24 03:15 08/23/24 03:15 08/22/24 07:13 Oxygen Flow Rate (L/min) 3 Oxygen Delivery Method Room Air Weight: 210 lb 5.136 oz Body Mass Index (BMI) 34.9 Intake & Output: Intake and Output for Last 24 Hours 08/21/24 08/22/24 08/23/24 23:59 23:59 23:59 Intake Total 360 / 600 970.00 / 970.00 Output Total 2100 / 2650 1850 / 1850 Balance 360 / -400 -1130.00 / -1680.00 -1850 / -1850 Lab / Micro Data 08/23/24 05:23 08/23/24 05:23 Labs: Laboratory Results - last 24 hr 08/23/24 05:23: WBC 7.0, RBC 4.88, Hgb 9.9 L, Hct 35.7 L, MCV 73.2 L, MCH 20.3 L, MCHC 27.7 L, RDW Std Deviation 50.6 H, RDW Coeff of Ele 20.0 H, Plt Count 199,MPV 9.9, Immature Gran % (Auto) 0.300, Neut % (Auto) 67.2, Lymph % (Auto) 21.7, Swift % (Auto) 7.9, Eos % (Auto) 2.2, Baso % (Auto) 0.7, Absolute Neuts (auto) 4.7, Absolute Lymphs (auto) 1.51, Nucleated RBC % 0, PT 28.7 H, INR 2.6, Sodium 141, Potassium 3.3, Chloride 100, Carbon Dioxide 26.5, Anion Gap 14, BUN 29 H, Creatinine 1.35 H, Estim Creat Clear Calc 46.19 L, Est GFR (MDRD) Non-Af 43 L, BUN/Creatinine Ratio 21.3 H, Glucose 105 H, Calcium 8.7 Rhythm Strip Rhythm Strip: A-fib Rate: 125 Cardiology Labs/Tests 08/23/24 05:23: WBC 7.0, RBC 4.88, Hgb 9.9 L, Hct 35.7 L, MCV 73.2 L, MCH 20.3 L, MCHC 27.7 L, Plt Count 199, MPV 9.9, Immature Gran % (Auto) 0.300, Neut % (Auto) 67.2, Lymph % (Auto) 21.7, Swift % (Auto) 7.9, Eos % (Auto) 2.2, Baso % (Auto) 0.7, Absolute Neuts (auto) 4.7, Nucleated RBC % 0, PT 28.7 H, INR 2.6, Sodium 141, Potassium 3.3, Chloride 100, Carbon Dioxide 26.5, Anion Gap 14, BUN 29 H, Creatinine 1.35 H, Est GFR (MDRD) Non-Af 43 L, BUN/Creatinine Ratio 21.3 H, Glucose 105 H, Calcium 8.7 Rhythm: EKG: ECHO: Stress Test: Cardiac Cath: PCI: CT Surgery: Holter monitor: EPS: PPM: CXR: Chest CT Scan: Physical Exam Const alert and oriented x3 HEENT normocephalic Eyes EOMs intact bilaterally Neck no JVD and no carotid bruits Neck Narrative: Very thick neck. Resp Resp Narrative: Patient is tachypneic Auscultation: rales bilateral 1/[address] up Cardio Cardio Narrative: Patient's heart tones are distant and difficult to auscultate given the pulmonary situation. Rate: tachycardic Rhythm: abnormal rhythm irregularly irregular Heart Sounds: S1 normal and S2 normal; Negative for click, gallop or murmur GI GI Narrative: Obese Extremity General Extremity: edema bilateral lower extremity Details: severe Skin Skin Narrative: Weeping excoriated areas on the right lower extremity. Neuro Neuro Narrative: Alert and oriented x 3. Psych Psych Narrative: Patient gives very short and michael answers to questions. Assessment & Plan Assessment/Plan (1) Paroxysmal atrial fibrillation with RVR: PLAN: She does have atrial fibrillation with a rapid ventricular response rate. Was started on beta-latisha with metoprolol and thus far her rate has been controlled however she did have some pauses in the night. With her reduced ejection fraction it may be prudent to put her on carvedilol rather than metoprolol. * Recommend continue 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 with Coumadin target INR 2-3 * Carvedilol 6.25 mg twice a day (2) Heart failure with reduced ejection fraction: PLAN: She does have heart failure with reduced ejection fraction estimated at 20%. Will recommend continuation of beta-latisha Continue BHAVIN inhibitor or Arni She is currently on IV Lasix which will be switched to p.o. Lasix today as well as an aldosterone antagonist. Continue SGLT2 inhibitor Overall she looks much better today. 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 08/23/24 0818 <Electronically signed by Jamal Munoz MD> Cosigner Signature (if applicable): CC: ~ Signed [facility] Work Phone: 1(360) 436-528804-04-2025 Progress note [facility] Medical Records Department [address] [place] [address] Progress Note - Cardiology 08/23/24816 MR#: [id number] Acct: [id number] Name: CLARIBEL ALLISON Rep #:[id number] : 1955 69 From: Jamal Munoz MD PCP: Dr. Abdulaziz Ackerman MD Status:A DM IN Location: [place] [address] Subjective Subjective Patient seen and evaluated. Objective Data Vital Signs: Vital Signs Temp Pulse Resp BP Pulse Ox O2 Del Method O2 Flow Rate 97.4 F L 91 18 108/60 96 Room Air 3 08/23/24 03:15 08/23/24 03:15 08/23/24 03:15 08/23/24 03:15 08/23/24 03:15 08/23/24 03:15 08/22/24 07:13 Oxygen Flow Rate (L/min) 3 Oxygen Delivery Method Room Air Weight: 210 lb 5.136 oz Body Mass Index (BMI) 34.9 Intake & Output: Intake and Output for Last 24 Hours 08/21/24 08/22/24 08/23/24 23:59 23:59 23:59 Intake Total 360 / 600 970.00 / 970.00 Output Total 2100 / 2650 1850 / 1850 Balance 360 / -400 -1130.00 / -1680.00 -1850 / -1850 Lab / Micro Data 08/23/24 05:23 08/23/24 05:23 Labs: Laboratory Results - last 24 hr 08/23/24 05:23: WBC 7.0, RBC 4.88, Hgb 9.9 L, Hct 35.7 L, MCV 73.2 L, MCH 20.3 L, MCHC 27.7 L, RDW Std Deviation 50.6 H, RDW Coeff of Ele 20.0 H, Plt Count 199,MPV 9.9, Immature Gran % (Auto) 0.300, Neut % (Auto) 67.2, Lymph % (Auto) 21.7, Swift % (Auto) 7.9, Eos % (Auto) 2.2, Baso % (Auto) 0.7, Absolute Neuts (auto) 4.7, Absolute Lymphs (auto) 1.51, Nucleated RBC % 0, PT 28.7 H, INR 2.6, Sodium 141, Potassium 3.3, Chloride 100, Carbon Dioxide 26.5, Anion Gap 14, BUN 29 H, Creatinine 1.35 H, Estim Creat Clear Calc 46.19 L, Est GFR (MDRD) Non-Af 43 L, BUN/Creatinine Ratio 21.3 H, Glucose 105 H,Calcium 8.7 Rhythm Strip Rhythm Strip: A-fib Rate: 125 Cardiology Labs/Tests 08/23/24 05:23: WBC 7.0, RBC 4.88, Hgb 9.9 L, Hct 35.7 L, MCV 73.2 L, MCH 20.3 L, MCHC 27.7 L, Plt Count 199, MPV 9.9, Immature Gran % (Auto) 0.300, Neut % (Auto) 67.2, Lymph % (Auto) 21.7, Swift % (Auto) 7.9, Eos % (Auto) 2.2, Baso % (Auto) 0.7, Absolute Neuts (auto) 4.7, Nucleated RBC % 0, PT 28.7H, INR 2.6, Sodium 141, Potassium 3.3, Chloride 100, Carbon Dioxide 26.5, Anion Gap 14, BUN 29 H, Creatinine 1.35 H, Est GFR (MDRD) Non-Af 43 L, BUN/Creatinine Ratio 21.3 H, Glucose 105 H, Calcium 8.7 Rhythm: EKG: ECHO: Stress Test: Cardiac Cath: PCI: CT Surgery: Holter monitor: EPS: PPM: CXR: Chest CT Scan: Physical Exam Const alert and oriented x3 HEENT normocephalic Eyes EOMs intact bilaterally Neck no JVD and no carotid bruits Neck Narrative: Very thick neck. Resp Resp Narrative: Patient is tachypneic Auscultation: rales bilateral 1/[address] up Cardio Cardio Narrative: Patient's heart tones are distant and difficult to auscultate given the pulmonary situation. Rate: tachycardic Rhythm: abnormal rhythm irregularly irregular Heart Sounds: S1 normal and S2 normal; Negative for click, gallop or murmur GI GI Narrative: Obese Extremity General Extremity: edema bilateral lower extremity Details: severe Skin Skin Narrative: Weeping excoriated areas on the right lower extremity. Neuro Neuro Narrative: Alert and oriented x 3. Psych Psych Narrative: Patient gives very short and michael answers to questions. Assessment & Plan Assessment/Plan (1) Paroxysmal atrial fibrillation with RVR: PLAN: She does have atrial fibrillation with a rapid ventricular response rate. Was started on beta-latisha with metoprolol and thus far her rate has been controlled however she did have some pauses in the night. With her reduced ejection fraction it may be prudent to put her on carvedilol rather than metoprolol. * Recommend continue 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 with Coumadin target INR 2-3 * Carvedilol 6.25 mg twice a day (2) Heart failure with reduced ejection fraction: PLAN: She does have heart failure with reduced ejection fraction estimated at 20%. Will recommend continuation of beta-latisha Continue BHAVIN inhibitor or Arni She is currently on IV Lasix which will be switched to p.o. Lasix today as well as an aldosterone antagonist. Continue SGLT2 inhibitor Overall she looks much better today. 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 08/23/24817 Cosigner Signature (if applicable): CC: ~ Signed [facility]04-03-2025 Progress note Author Iglesia Benson [facility] Note Date/Time August 22, 2024 9:17 am [facility] Medical Records Department [address] [place] [address] Progress Note - Hospitalist 08/22/2443 MR#: [id number] Acct: [id number] Name: CLARIBEL ALLISON Rep #:[id number] : 1955 69 From: Iglesia lFynn PCP: Dr. 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) Objective Data Objective Data Vital Signs: Vital Signs Temp Pulse Resp BP Pulse Ox O2 Del Method O2 Flow Rate 98.0 F 77 16 105/64 95 Room Air 3 08/21/24 20:00 08/22/24 06:23 08/21/24 20:00 08/22/24 06:23 08/22/24 02:44 08/22/24 02:44 08/21/24 22:00 Oxygen Flow Rate (L/min) 3 Oxygen Delivery Method Room Air Weight: 212 lb 11.937 oz Body Mass Index (BMI) 35.4 Intake & Output: Intake and Output for Last 24 Hours 08/20/24 08/21/24 08/22/24 23:59 23:59 23:59 Intake Total 360 / 600 480 / 480 Output Total 1200 / 1200 Balance 360 / -400 -720 / -720 Lab / Micro Data 08/22/24 05:16 08/22/24 03:55 Labs: Laboratory Results - last 24 hr 08/21/24 11:35: WBC 7.9, RBC 4.85, Hgb 9.8 L, Hct 34.9 L, MCV 72.0 L, MCH 20.2 L, MCHC 28.1 L, RDW Std Deviation 49.1 H, RDW Coeff of Ele 19.6 H, Plt Count 189,MPV 9.2, Immature Gran % (Auto) 0.400, Neut % (Auto) 77.3 H, Lymph % (Auto) 15.3L, Swift % (Auto) 5.2, Eos % (Auto) 1.0, Baso % (Auto) 0.8, Absolute Neuts (auto)6.1, Absolute Lymphs (auto) 1.20, Nucleated RBC % 0, PT Cancelled, INR Cancelled, Sodium 139, Potassium 3.9, Chloride 105, Carbon Dioxide 21.3, Anion Gap 12, BUN 19, Creatinine 0.87, Estim Creat Clear Calc 73.62, Est GFR (MDRD) Non-Af 73, BUN/Creatinine Ratio 21.7 H, Glucose 166 H, Calcium 8.6, Total Bilirubin 0.84, AST 38 H, ALT 27, Alkaline Phosphatase 84, Troponin T High Sens 36 H, NT pro BNP II 3787 H, Total Protein 6.5, Albumin 3.6, Globulin 2.9, Albumin/Globulin Ratio 1.2 08/21/24 13:08: PT 21.0 H, INR 1.8, Phosphorus 2.9, Magnesium 1.8 08/21/24 13:42: Troponin T Hi Sens 2 Hr 44 H 08/21/24 15:42: Troponin T Hi Sens 4Hr 45 H 08/22/24 03:55: PT 22.6 H, INR 1.9, Sodium 140, Potassium 3.7, Chloride 104, Carbon Dioxide 25.1, Anion Gap 12, BUN 22 H, Creatinine 1.19, Estim Creat Clear Calc 52.90, Est GFR (MDRD) Non-Af 50 L, BUN/Creatinine Ratio 18.8, Glucose 104 H, Calcium 8.3, Triglycerides 74, Cholesterol 105, LDL Cholesterol, Calc 64, VLDLCholesterol 15, HDL Cholesterol 26 L, Cholesterol/HDL Ratio 4.09, TSH 3.580 08/22/24 05:16: WBC 7.3, RBC 4.66, Hgb 9.5 L, Hct 33.2 L, MCV 71.2 L, MCH 20.4 L, MCHC 28.6 L, RDW Std Deviation 49.0 H, RDW Coeff of Ele 19.8 H, Plt Count 197,MPV 9.4, Immature Gran % (Auto) 0.500, Neut % (Auto) 63.5, Lymph % (Auto) 23.2, Swift % (Auto) 10.0, Eos % (Auto) 1.8, Baso % (Auto) 1.0, Absolute Neuts (auto) 4.7, Absolute Lymphs (auto) 1.70, Nucleated RBC % 0 Radiography Diagnostic Testing: Radiology Impression Chest X-Ray 08/21/24 11:32 IMPRESSION: Cardiomegaly with mild congestion. Reading Location: [facility] Echocardiogram 08/21/24 14:27 Interpretation Summary Normal LV size. The left ventricular ejection fraction is 20 %. There is severe global hypokinesis of the left ventricle. The left atrium is moderately enlarged. Mild-Moderate (1-2+) eccentric mitral valve insufficiency. Mildly dilated aortic root. The right atrium is mildly enlarged. Ordering Physician: Iglesia Benson Referring Physician: Abdulaziz Ackerman Performed By: Mason Reyes RCS Rhythm Strip Rhythm Strip: A-fib Rate: 125 Physical Exam Narrative General: Alert, Oriented x3, Cooperative HEENT: Atraumatic, PERRLA, EOMI, Normocephalic Oral: Oral mucosa dry. No Gingival or Mucosal Lesions/ Ulcerations Neck: Supple, bilateral JVD, Negative Carotid Bruits Chest wall/Lungs: Air entry diminished in all lung henderson. Bilateral expiratorywheezing and fine crackles. Cardiovascular: Irregular rhythm, A-fib RVR, No M/G/R Abdomen: Bowel Sounds Present, Soft, Non Tender, abdominal wall swelling : No dysuria. No renal angle tenderness. No suprapubic tenderness. Extremities: Bilateral 3-4+ pitting, thigh edema, Capillary Refill Less than 3 Seconds Skin: Tiny right lower leg erosion/superficial ulcer Musculoskeletal: No Tenderness to Palpation of Joints or Extremities. ROM restricted due to swelling. Neurological: Cranial nerves II-XII grossly intact, DTR 2+/4. No acute focal neurological deficit. Psych/Mental Status: Flat affect. In extreme distress and anxiety.. Assessment & Plan Assessment/Plan (1) Acute exacerbation of CHF (congestive heart failure): (2) Paroxysmal atrial fibrillation with RVR: PLAN: Plan 69-year-old female admitted with 3 months of progressive worsening of shortness of breath, dyspnea at rest, orthopnea, anasarca and chest x-ray findings suggestive of heart failure exacerbation 1. Subacute debility/dyspnea at rest due to acute on chronic HFpEF: Patient is being admitted in PCU. Chest x-ray newly reviewed and shows pulmonary congestion/edema. 60 mg IV Lasix given in ER physician and then started on furosemide drip 10 mg/h. Heart failure core measures including intake and output, fluid restriction less than 1800 mL, daily weight monitoring, kidney andelectrolytes monitoring. 2D echo ordered. Nitroglycerin ointment ordered for preload reduction 4/3: Dyspnea is much better and has resolved. Sitting comfortable. Discontinuenitroglycerin ointment as patient having headache. Discussed with the child specialist consult consult reviewed. Continue furosemide drip 10 mg/h. Empagliflozin 10 mg daily. Spironolactone dose increased to 50 mg daily. Echo reviewed, global hypokinesis, EF 20%. 1-2+ MR. LA moderately enlarged RA mildly enlarged. Troponins mildly enlarged 36, 44 and 45. proBNP about 4000 overall suggestive of increased LV overload therefore due to cardiac demand ischemia. No need to repeat cath as patient was found of nonobstructive coronaries in October 2022 2. A-fib RVR and history of chronic PE.: Patient is still tachycardic. Heart rate 133 permanent. Metoprolol 5 mg IV given and then oral 25 mg twice daily. A-fib RVR mainly due to adrenergic response from heart failure. PT/INR ordered. On warfarin 4 mg daily continued. Tachycardia expected to get better with diuresis. 4/3: Metoprolol succinate 50 mg twice daily. 1 cardiac strip shows A-fib with heart rate in 30s. Currently her heart rate is in high 90s to low 100s. INR 1.9. Continue warfarin 6 mg daily 3. Nonobstructive CAD/non-STEMI: Patient was last admitted in October 2022 for non-STEMI. At that time diagnostic cardiac cath showed EF 60%, normal LV wall motion and systolic function. No significant obstructive coronary vessels found. 4. Chronic left knee degenerative arthritis: PT and OT ordered. Pain can 5. Essential hypertension: Blood pressure is high in triage. Is getting better. Patient already on furosemide drip and metoprolol. Titrate according to blood pressure. /3: Lisinopril 20 mg daily 6. Chronic thoracoabdominal aortic aneurysm: Last seen in vascular surgery clinic in November 2022. CTA imaging at that time showed 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 largest in the mid/distal descending thoracic aorta. Advised to continue follow-up with Dr. Tucker Dodson. 7. DVT prophylaxis, high risk with history of chronic PE: On warfarin. Living will/advanced directive/end of life care: Patient does not have living will or advanced directive or designated power of commercial attorney for health. His sister is next to kin. After discussion of benefits/risks procedures involved with full code, DNR CC arrest and DNR CC, the patient opted for full code. Patient does want artificial life support including intubation, tube feed, ventilator and/chest compression, central venous catheter, vasopressor and DC shock if needed Total time spent in [id number] encounter in discussion of advanced directive 17 minutes. Laboratory Results 08/21/24 11:35: WBC 7.9, RBC 4.85, Hgb 9.8 L, Hct 34.9 L, MCV 72.0 L, MCH 20.2 L, MCHC 28.1 L, RDW Std Deviation 49.1 H, RDW Coeff of Ele 19.6 H, Plt Count 189,MPV 9.2, Immature Gran % (Auto) 0.400, Neut % (Auto) 77.3 H, Lymph % (Auto) 15.3L, Swift % (Auto) 5.2, Eos % (Auto) 1.0, Baso % (Auto) 0.8, Absolute Neuts (auto)6.1, Absolute Lymphs (auto) 1.20, Nucleated RBC % 0, PT Cancelled, INR Cancelled, Sodium 139, Potassium 3.9, Chloride 105, Carbon Dioxide 21.3, Anion Gap 12, BUN 19, Creatinine 0.87, Estim Creat Clear Calc 73.62, Est GFR (MDRD) Non-Af 73, BUN/Creatinine Ratio 21.7 H, Glucose 166 H, Calcium 8.6, Total Bilirubin 0.84, AST 38 H, ALT 27, Alkaline Phosphatase 84, Troponin T High Sens 36 H, NT pro BNP II 3787 H, Total Protein 6.5, Albumin 3.6, Globulin 2.9, Albumin/Globulin Ratio 1.2 08/21/24 13:08: PT 21.0 H, INR 1.8, Phosphorus 2.9, Magnesium 1.8 08/21/24 13:42: Troponin T Hi Sens 2 Hr 44 H 08/21/24 15:42: Troponin T Hi Sens 4Hr 45 H 08/22/24 03:55: PT 22.6 H, INR 1.9, Sodium 140, Potassium 3.7, Chloride 104, Carbon Dioxide 25.1, Anion Gap 12, BUN 22 H, Creatinine 1.19, Estim Creat Clear Calc 52.90, Est GFR (MDRD) Non-Af 50 L, BUN/Creatinine Ratio 18.8, Glucose 104 H, Calcium 8.3, Triglycerides 74, Cholesterol 105, LDL Cholesterol, Calc 64, VLDLCholesterol 15, HDL Cholesterol 26 L, Cholesterol/HDL Ratio 4.09, TSH 3.580 08/22/24 05:16: WBC 7.3, RBC 4.66, Hgb 9.5 L, Hct 33.2 L, MCV 71.2 L, MCH 20.4 L, MCHC 28.6 L, RDW Std Deviation 49.0 H, RDW Coeff of Ele 19.8 H, Plt Count 197,MPV 9.4, Immature Gran % (Auto) 0.500, Neut % (Auto) 63.5, Lymph % (Auto) 23.2, Swift % (Auto) 10.0, Eos % (Auto) 1.8, Baso % (Auto) 1.0, Absolute Neuts (auto) 4.7, Absolute Lymphs (auto) 1.70, Nucleated RBC % 0 Clinical Impression(s) from Imaging Studies Chest X-Ray 08/21/24 11:32 IMPRESSION: Cardiomegaly with mild congestion. Echocardiogram 08/21/24 14:27 Interpretation Summary Normal LV size. The left ventricular ejection fraction is 20 %. There is severe global hypokinesis of the left ventricle. The left atrium is moderately enlarged. Mild-Moderate (1-2+) eccentric mitral valve insufficiency. Mildly dilated aortic root. The right atrium is mildly enlarged. Echo 11/08/2022 Interpretation Summary Normal LV size. Mild concentric left ventricular hypertrophy. Mild to moderate (1-2+) tricuspid valve insufficiency. Mildly dilated aortic root. Dilated descending aorta. The estimated ejection fraction is 55 %. Left ventricular systolic function is normal. Stage 2 diastolic dysfunction. Charges/Coding Visit Charges Inpatient E&M: 34981 Subs Hosp L3 08/22/24 0915 <Electronically signed by Iglesia Benson MD> Cosigner Signature (if applicable): CC: ~ Signed ADDENDUM by Dr. Iglesia Benson MD on 08/22/24 at 0917 Addendum Correction: Supervisor Garage note reviewed. Metoprolol succinate changed to carvedilol 6.25 mg twice daily. 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 Currently, A-fib in 97/min 08/22/24 0917<Electronically signed by Iglesia Benson MD> Cosigner Signature (if applicable): cc: ~* Signed [facility] Work Phone: 1(347) 236-197304-03-2025 Progress note Author Jamal Munoz [facility] Note Date/Time August 22, 2024 9:06 am [facility] Medical Records Department [address] [place] [address] Progress Note - Cardiology 08/22/24901 MR#: [id number] Acct: [id number] Name: CLARIBEL ALLISON Rep #:[id number] : 1955 69 From: Jamal Munoz MD PCP: Dr. Abdulaziz Ackerman MD Status:A DM IN Location: ICU CVICU 4-1 Subjective Subjective Patient seen and evaluated. Sitting on side of bed. Says that she is breathingmuch better. She does have some improvement in her pedal edema. Objective Data Vital Signs: Vital Signs Temp Pulse Resp BP Pulse Ox O2 Del Method O2 Flow Rate 98.0 F 77 16 105/64 95 Room Air 3 08/21/24 20:00 08/22/24 06:23 08/21/24 20:00 08/22/24 06:23 08/22/24 02:44 08/22/24 02:44 08/21/24 22:00 Oxygen Flow Rate (L/min) 3 Oxygen Delivery Method Room Air Weight: 212 lb 11.937 oz Body Mass Index (BMI) 35.4 Intake & Output: Intake and Output for Last 24 Hours 08/20/24 08/21/24 08/22/24 23:59 23:59 23:59 Intake Total 360 / 600 480 / 480 Output Total 1200 / 1200 Balance 360 / -400 -720 / -720 Lab / Micro Data 08/22/24 05:16 08/22/24 03:55 Labs: Laboratory Results - last 24 hr 08/21/24 11:35: WBC 7.9, RBC 4.85, Hgb 9.8 L, Hct 34.9 L, MCV 72.0 L, MCH 20.2 L, MCHC 28.1 L, RDW Std Deviation 49.1 H, RDW Coeff of Ele 19.6 H, Plt Count 189,MPV 9.2, Immature Gran % (Auto) 0.400, Neut % (Auto) 77.3 H, Lymph % (Auto) 15.3L, Swift % (Auto) 5.2, Eos % (Auto) 1.0, Baso % (Auto) 0.8, Absolute Neuts (auto)6.1, Absolute Lymphs (auto) 1.20, Nucleated RBC % 0, PT Cancelled, INR Cancelled, Sodium 139, Potassium 3.9, Chloride 105, Carbon Dioxide 21.3, Anion Gap 12, BUN 19, Creatinine 0.87, Estim Creat Clear Calc 73.62, Est GFR (MDRD) Non-Af 73, BUN/Creatinine Ratio 21.7 H, Glucose 166 H, Calcium 8.6, Total Bilirubin 0.84, AST 38 H, ALT 27, Alkaline Phosphatase 84, Troponin T High Sens 36 H, NT pro BNP II 3787 H, Total Protein 6.5, Albumin 3.6, Globulin 2.9, Albumin/Globulin Ratio 1.2 08/21/24 13:08: PT 21.0 H, INR 1.8, Phosphorus 2.9, Magnesium 1.8 08/21/24 13:42: Troponin T Hi Sens 2 Hr 44 H 08/21/24 15:42: Troponin T Hi Sens 4Hr 45 H 08/22/24 03:55: PT 22.6 H, INR 1.9, Sodium 140, Potassium 3.7, Chloride 104, Carbon Dioxide 25.1, Anion Gap 12, BUN 22 H, Creatinine 1.19, Estim Creat Clear Calc 52.90, Est GFR (MDRD) Non-Af 50 L, BUN/Creatinine Ratio 18.8, Glucose 104 H, Calcium 8.3, Triglycerides 74, Cholesterol 105, LDL Cholesterol, Calc 64, VLDLCholesterol 15, HDL Cholesterol 26 L, Cholesterol/HDL Ratio 4.09, TSH 3.580 08/22/24 05:16: WBC 7.3, RBC 4.66, Hgb 9.5 L, Hct 33.2 L, MCV 71.2 L, MCH 20.4 L, MCHC 28.6 L, RDW Std Deviation 49.0 H, RDW Coeff of Ele 19.8 H, Plt Count 197,MPV 9.4, Immature Gran % (Auto) 0.500, Neut % (Auto) 63.5, Lymph % (Auto) 23.2, Swift % (Auto) 10.0, Eos % (Auto) 1.8, Baso % (Auto) 1.0, Absolute Neuts (auto) 4.7, Absolute Lymphs (auto) 1.70, Nucleated RBC % 0 Rhythm Strip Rhythm Strip: A-fib Rate: 125 Cardiology Labs/Tests 08/21/24 11:35: WBC 7.9, RBC 4.85, Hgb 9.8 L, Hct 34.9 L, MCV 72.0 L, MCH 20.2 L, MCHC 28.1 L, Plt Count 189, MPV 9.2, Immature Gran % (Auto) 0.400, Neut % (Auto) 77.3 H, Lymph % (Auto) 15.3 L, Swift % (Auto) 5.2, Eos % (Auto) 1.0, Baso % (Auto) 0.8, Absolute Neuts (auto) 6.1, Nucleated RBC % 0, PT Cancelled, INR Cancelled, Sodium 139, Potassium 3.9, Chloride 105, Carbon Dioxide 21.3, Anion Gap 12, BUN 19, Creatinine 0.87, Est GFR (MDRD) Non-Af 73, BUN/Creatinine Ratio 21.7 H, Glucose 166 H, Calcium 8.6, Total Bilirubin 0.84 08/21/24 13:08: PT 21.0 H, INR 1.8, Phosphorus 2.9, Magnesium 1.8 08/22/24 03:55: PT 22.6 H, INR 1.9, Sodium 140, Potassium 3.7, Chloride 104, Carbon Dioxide 25.1, Anion Gap 12, BUN 22 H, Creatinine 1.19, Est GFR (MDRD) Non-Af 50 L, BUN/Creatinine Ratio 18.8, Glucose 104 H, Calcium 8.3, Triglycerides 74, Cholesterol 105, VLDL Cholesterol 15, HDL Cholesterol 26 L, Cholesterol/HDL Ratio 4.09 08/22/24 05:16: WBC 7.3, RBC 4.66, Hgb 9.5 L, Hct 33.2 L, MCV 71.2 L, MCH 20.4 L, MCHC 28.6 L, Plt Count 197, MPV 9.4, Immature Gran % (Auto) 0.500, Neut % (Auto) 63.5, Lymph % (Auto) 23.2, Swift % (Auto) 10.0, Eos % (Auto) 1.8, Baso % (Auto) 1.0, Absolute Neuts (auto) 4.7, Nucleated RBC % 0 Rhythm: EKG: ECHO: Stress Test: Cardiac Cath: PCI: CT Surgery: Holter monitor: EPS: PPM: CXR: Chest CT Scan: Radiography Diagnostic Testing: Radiology Impression Chest X-Ray 08/21/24 11:32 IMPRESSION: Cardiomegaly with mild congestion. Reading Location: [facility] Echocardiogram 08/21/24 14:27 Interpretation Summary Normal LV size. The left ventricular ejection fraction is 20 %. There is severe global hypokinesis of the left ventricle. The left atrium is moderately enlarged. Mild-Moderate (1-2+) eccentric mitral valve insufficiency. Mildly dilated aortic root. The right atrium is mildly enlarged. Ordering Physician: Iglesia Benson Referring Physician: Abdulaziz Ackerman Performed By: Mason Reyes RCS Physical Exam Const alert and oriented x3 HEENT normocephalic Eyes EOMs intact bilaterally Neck no JVD and no carotid bruits Neck Narrative: Very thick neck. Resp Resp Narrative: Patient is tachypneic Auscultation: rales bilateral 1/[address] up Cardio Cardio Narrative: Patient's heart tones are distant and difficult to auscultate given the pulmonary situation. Rate: tachycardic Rhythm: abnormal rhythm irregularly irregular Heart Sounds: S1 normal and S2 normal; Negative for click, gallop or murmur GI GI Narrative: Obese Extremity General Extremity: edema bilateral lower extremity Details: severe Skin Skin Narrative: Weeping excoriated areas on the right lower extremity. Neuro Neuro Narrative: Alert and oriented x 3. Psych Psych Narrative: Patient gives very short and michael answers to questions. Assessment & Plan Assessment/Plan (1) Paroxysmal atrial fibrillation with RVR: PLAN: She does have atrial fibrillation with a rapid ventricular response rate. Was started on beta-latisha with metoprolol and thus far her rate has been controlled however she did have some pauses in the night. With her reduced ejection fraction it may be prudent to put her on carvedilol rather than metoprolol. * Recommend continue 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 with Coumadin target INR 2-3 * Carvedilol 6.25 mg twice a day * Discontinue metoprolol (2) Heart failure with reduced ejection fraction: PLAN: She does have heart failure with reduced ejection fraction estimated at 20%. 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 08/22/24 0906 <Electronically signed by Jamal Munoz MD> Cosigner Signature (if applicable): CC: ~ Signed [facility] Work Phone: 1(121) 224-501604-03-2025 Progress note [facility] Medical Records Department [address] [place] [address] Progress Note - Hospitalist 08/22/24 0843 MR#: [id number] Acct: [id number] Name: CLARIBEL ALLISON Rep #:[id number] : 1955 69 From: Iglesia Flynn PCP: Dr. Abdulaziz Ackerman MD Status:A DM IN Location: ICU CVICU20 4-1 Reason for Visit Reason for Visit: Diagnoses Iron deficiency anemia, unspecified (08/21/24) Paroxysmal atrial fibrillation (08/21/24) Unspecified systolic (congestive) heart failure (08/21/24) Heart failure, unspecified (08/21/24) Supraceliac aneurysm of the thoracoabdominal aorta, without rupture (08/21/24) senior care (current) use of 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s (08/21/24) Objective Data Objective Data Vital Signs: Vital Signs Temp Pulse Resp BP Pulse Ox O2 Del Method O2 Flow Rate 98.0 F 77 16 105/64 95 Room Air 3 08/21/24 20:00 08/22/24 06:23 08/21/24 20:00 08/22/24 06:23 08/22/24 02:44 08/22/24 02:44 08/21/24 22:00 Oxygen Flow Rate (L/min) 3 Oxygen Delivery Method Room Air Weight: 212 lb 11.937 oz Body Mass Index (BMI) 35.4 Intake & Output: Intake and Output for Last 24 Hours 08/20/24 08/21/24 08/22/24 23:59 23:59 23:59 Intake Total 360 / 600 480 / 480 Output Total 1200 / 1200 Balance 360 / -400 -720 / -720 Lab / Micro Data 08/22/24 05:16 08/22/24 03:55 Labs: Laboratory Results - last 24 hr 08/21/24 11:35: WBC 7.9, RBC 4.85, Hgb 9.8 L, Hct 34.9 L, MCV 72.0 L, MCH 20.2 L, MCHC 28.1 L, RDW Std Deviation 49.1 H, RDW Coeff of Ele 19.6 H, Plt Count 189,MPV 9.2, Immature Gran % (Auto) 0.400, Neut % (Auto) 77.3 H, Lymph % (Auto) 15.3L, Swift % (Auto) 5.2, Eos % (Auto) 1.0, Baso % (Auto) 0.8, Absolute Neuts (auto)6.1, Absolute Lymphs (auto) 1.20, Nucleated RBC % 0, PT Cancelled, INR Cancelled, Sodium 139, Potassium 3.9, Chloride 105, Carbon Dioxide 21.3, Anion Gap 12, BUN 19, Creatinine 0.87, Estim Creat Clear Calc 73.62, Est GFR (MDRD) Non-Af 73, BUN/Creatinine Ratio 21.7 H, Glucose 166H, Calcium 8.6, Total Bilirubin 0.84, AST 38 H, ALT 27, Alkaline Phosphatase 84, Troponin T High Sens 36 H, NT pro BNP II 3787 H, Total Protein 6.5, Albumin 3.6, Globulin 2.9, Albumin/Globulin Ratio 1.2 08/21/24 13:08: PT 21.0 H, INR 1.8, Phosphorus 2.9, Magnesium 1.8 08/21/24 13:42: Troponin T Hi Sens 2 Hr 44 H 08/21/24 15:42: Troponin T Hi Sens 4Hr 45 H 08/22/24 03:55: PT 22.6 H, INR 1.9, Sodium 140, Potassium 3.7, Chloride 104, Carbon Dioxide 25.1, Anion Gap 12, BUN 22 H, Creatinine 1.19, Estim Creat Clear Calc 52.90, Est GFR (MDRD) Non-Af 50 L, BUN/Creatinine Ratio 18.8, Glucose 104 H, Calcium 8.3, Triglycerides 74, Cholesterol 105, LDL Cholesterol, Calc 64, VLDLCholesterol 15, HDL Cholesterol 26 L, Cholesterol/HDL Ratio 4.09, TSH 3.580 08/22/24 05:16: WBC 7.3, RBC 4.66, Hgb 9.5 L, Hct 33.2 L, MCV 71.2 L, MCH 20.4 L, MCHC 28.6 L, RDW Std Deviation 49.0 H, RDW Coeff of Ele 19.8 H, Plt Count 197,MPV 9.4, Immature Gran % (Auto) 0.500, Neut % (Auto) 63.5, Lymph % (Auto) 23.2, Swift % (Auto) 10.0, Eos % (Auto) 1.8, Baso % (Auto) 1.0, Absolute Neuts (auto) 4.7, Absolute Lymphs (auto) 1.70, Nucleated RBC % 0 Radiography Diagnostic Testing: Radiology Impression Chest X-Ray 08/21/24 11:32 IMPRESSION: Cardiomegaly with mild congestion. Reading Location: [facility] Echocardiogram 08/21/24 14:27 Interpretation Summary Normal LV size. The left ventricular ejection fraction is 20 %. There is severe global hypokinesis of the left ventricle. The left atrium is moderately enlarged. Mild-Moderate (1-2+) eccentric mitral valve insufficiency. Mildly dilated aortic root. The right atrium is mildly enlarged. Ordering Physician: Iglesia Benson Referring Physician: Abdulaziz Ackerman Performed By: Mason Reyes RCS Rhythm Strip Rhythm Strip: A-fib Rate: 125 Physical Exam Narrative General: Alert, Oriented x3, Cooperative HEENT: Atraumatic, PERRLA, EOMI, Normocephalic Oral: Oral mucosa dry. No Gingival or Mucosal Lesions/ Ulcerations Neck: Supple, bilateral JVD, Negative Carotid Bruits Chest wall/Lungs: Air entry diminished in all lung henderson. Bilateral expiratorywheezing and fine crackles. Cardiovascular: Irregular rhythm, A-fib RVR, No M/G/R Abdomen: Bowel Sounds Present, Soft, Non Tender, abdominal wall swelling : No dysuria. No renal angle tenderness. No suprapubic tenderness. Extremities: Bilateral 3-4+ pitting, thigh edema, Capillary Refill Less than 3 Seconds Skin: Tiny right lower leg erosion/superficial ulcer Musculoskeletal: No Tenderness to Palpation of Joints or Extremities. ROM restricted due to swelling. Neurological: Cranial nerves II-XII grossly intact, DTR 2+/4. No acute focal neurological deficit. Psych/Mental Status: Flat affect. In extreme distress and anxiety.. Assessment & Plan Assessment/Plan (1) Acute exacerbation of CHF (congestive heart failure): (2) Paroxysmal atrial fibrillation with RVR: PLAN: Plan 69-year-old female admitted with 3 months of progressive worsening of shortness of breath, dyspnea at rest, orthopnea, anasarca and chest x-ray findings suggestive of heart failure exacerbation 1. Subacute debility/dyspnea at rest due to acute on chronic HFpEF: Patient is being admitted in U. Chest x-ray newly reviewed and shows pulmonary congestion/edema. 60 mg IV Lasix given in ER physician and then started on furosemide drip 10 mg/h. Heart failure core measures including intake and ou tput, fluid restriction less than 1800 mL, daily weight monitoring, kidney andelectrolytes monitoring. 2D echo ordered. Nitroglycerin ointment ordered for preload reduction 4/3: Dyspnea is much better and has resolved. Sitting comfortable. Discontinuenitroglycerin ointment as patient having headache. Discussed with the child specialist consult consult reviewed. Continue furosemide drip 10 mg/h. Empagliflozin 10 mg daily. Spironolactone dose increased to 50 mg daily. Echo r eviewed, global hypokinesis, EF 20%. 1-2+ MR. LA moderately enlarged RA mildly enlarged. Troponins mildly enlarged 36, 44 and 45. proBNP about 4000 overall suggestive of increased LV overload therefore due to cardiac demand ischemia. No need to repeat cath as patient was found of nonobstructive coronaries in October 2022 2. A-fib RVR and history of chronic PE.: Patient is still tachycardic. Heart rate 133 permanent. Metoprolol 5 mg IV given and then oral 25 mg twice daily. A- fib RVR mainly due to adrenergic response from heart failure. PT/INR ordered. On warfarin 4 mg daily continued. Tachycardia expected to get better with diuresis. 4/3: Metoprolol succinate 50 mg twice daily. 1 cardiac strip shows A-fib with heart rate in 30s. Currently her heart rate is in high 90s to low 100s. INR 1.9. Continue warfarin 6 mg daily 3. Nonobstructive CAD/non-STEMI: Patient was last admitted in October 2022 for non- STEMI. At that timediagnostic cardiac cath showed EF 60%, normal LV wall motion and systolic function. No significant obstructive coronary vessels found. 4. Chronic left knee degenerative arthritis: PT and OT ordered. Pain can 5. Essential hypertension: Blood pressure is high in triage. Is getting better. Patient already on furosemide drip and metoprolol. Titrate according to blood pressure. 4/3: Lisinopril 20 mg daily 6. Chronic thoracoabdominal aortic aneurysm: Last seen in vascular surgery clinic in November 2022. CTAimaging at that time showed 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 largest in the mid/distal descending thoracic aorta. Advised to continue follow-up with Dr. Tucker Dodson. 7. DVT prophylaxis, high risk with history of chronic PE: On warfarin. Living will/advanced directive/end of life care: Patient does not have living will or advanced directive or designated power of commercial attorney for health. His sister is next to kin. After discussion of benefits/risks procedures involved with full code, DNR CC arrest and DNR CC, the patient opted for fullcode. Patient does want artificial life support including intubation, tube feed, ventilator and/chest compression, central venous catheter, vasopressor and DC shock if needed Total time spent in [id number] encounter in discussion of advanced directive 17 minutes. Laboratory Results 08/21/24 11:35: WBC 7.9, RBC 4.85, Hgb 9.8 L, Hct 34.9 L, MCV 72.0 L, MCH 20.2 L, MCHC 28.1 L, RDW Std Deviation 49.1 H, RDW Coeff of Ele 19.6 H, Plt Count 189,MPV 9.2, Immature Gran % (Auto) 0.400, Neut % (Auto) 77.3 H, Lymph % (Auto) 15.3L, Swift % (Auto) 5.2, Eos % (Auto) 1.0, Baso % (Auto) 0.8, Absolute Neuts (auto)6.1, Absolute Lymphs (auto) 1.20, Nucleated RBC % 0, PT Cancelled, INR Cancelled, Sodium 139, Potassium 3.9, Chloride 105, Carbon Dioxide 21.3, Anion Gap 12, BUN 19, Creatinine 0.87, Estim Creat Clear Calc 73.62, Est GFR (MDRD) Non-Af 73, BUN/Creatinine Ratio 21.7 H, Glucose 166H, Calcium 8.6, Total Bilirubin 0.84, AST 38 H, ALT 27, Alkaline Phosphatase 84, Troponin T High Sens 36 H, NT pro BNP II 3787 H, Total Protein 6.5, Albumin 3.6, Globulin 2.9, Albumin/Globulin Ratio 1.2 08/21/24 13:08: PT 21.0 H, INR 1.8, Phosphorus 2.9, Magnesium 1.8 08/21/24 13:42: Troponin T Hi Sens 2 Hr 44 H 08/21/24 15:42: Troponin T Hi Sens 4Hr 45 H 08/22/24 03:55: PT 22.6 H, INR 1.9, Sodium 140, Potassium 3.7, Chloride 104, Carbon Dioxide 25.1, Anion Gap 12, BUN 22 H, Creatinine 1.19, Estim Creat Clear Calc 52.90, Est GFR (MDRD) Non-Af 50 L, BUN/Creatinine Ratio 18.8, Glucose 104 H, Calcium 8.3, Triglycerides 74, Cholesterol 105, LDL Cholesterol, Calc 64, VLDLCholesterol 15, HDL Cholesterol 26 L, Cholesterol/HDL Ratio 4.09, TSH 3.580 08/22/24 05:16: WBC 7.3, RBC 4.66, Hgb 9.5 L, Hct 33.2 L, MCV 71.2 L, MCH 20.4 L, MCHC 28.6 L, RDW Std Deviation 49.0 H, RDW Coeff of Ele 19.8 H, Plt Count 197,MPV 9.4, Immature Gran % (Auto) 0.500, Neut % (Auto) 63.5, Lymph % (Auto) 23.2, Swift % (Auto) 10.0, Eos % (Auto) 1.8, Baso % (Auto) 1.0, Absolute Neuts (auto) 4.7, Absolute Lymphs (auto) 1.70, Nucleated RBC % 0 Clinical Impression(s) from Imaging Studies Chest X-Ray 08/21/24 11:32 IMPRESSION: Cardiomegaly with mild congestion. Echocardiogram 08/21/24 14:27 Interpretation Summary Normal LV size. The left ventricular ejection fraction is 20 %. There is severe global hypokinesis of the left ventricle. The left atrium is moderately enlarged. Mild-Moderate (1-2+) eccentric mitral valve insufficiency. Mildly dilated aortic root. The right atrium is mildly enlarged. Echo 11/08/2022 Interpretation Summary Normal LV size. Mild concentric left ventricular hypertrophy. Mild to moderate (1-2+) tricuspid valve insufficiency. Mildly dilated aortic root. Dilated descending aorta. The estimated ejection fraction is 55 %. Left ventricular systolic function is normal. Stage 2 diastolic dysfunction. Charges/Coding Visit Charges Inpatient E&M: 72728 Subs Hosp L3 08/22/24 6213 Cosigner Signature (if applicable): CC: ~ Signed ADDENDUM by Dr. Iglesia Benson MD on 08/22/24 at 0917 Addendum Correction: Supervisor Garage note reviewed. Metoprolol succinate changed to carvedilol 6.25 mg twice daily. 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 Currently, A-fib in 97/min 08/22/24 0917 Cosigner Signature (if applicable): cc: ~* Signed [facility]04-03-2025 Progress note [facility] Medical Records Department [address] [place] [address] Progress Note - Cardiology 08/22/24 0902 MR#: [id number] Acct: [id number] Name: CLARIBEL ALLISON Rep #:[id number] : 1955 69 From: Jamal Munoz MD PCP: Dr. Abdulaziz Ackerman MD Status:A DM IN Location: ICU CVICU20 4-1 Subjective Subjective Patient seen and evaluated. Sitting on side of bed. Says that she is breathingmuch better. She doeshave some improvement in her pedal edema. Objective Data Vital Signs: Vital Signs Temp Pulse Resp BP Pulse Ox O2 Del Method O2 Flow Rate 98.0 F 77 16 105/64 95 Room Air 3 08/21/24 20:00 08/22/24 06:23 08/21/24 20:00 08/22/24 06:23 08/22/24 02:44 08/22/24 02:44 08/21/24 22:00 Oxygen Flow Rate (L/min) 3 Oxygen Delivery Method Room Air Weight: 212 lb 11.937 oz Body Mass Index (BMI) 35.4 Intake & Output: Intake and Output for Last 24 Hours 08/20/24 08/21/24 08/22/24 23:59 23:59 23:59 Intake Total 360 / 600 480 / 480 Output Total 1200 / 1200 Balance 360 / -400 -720 / -720 Lab / Micro Data 08/22/24 05:16 08/22/24 03:55 Labs: Laboratory Results - last 24 hr 08/21/24 11:35: WBC 7.9, RBC 4.85, Hgb 9.8 L, Hct 34.9 L, MCV 72.0 L, MCH 20.2 L, MCHC 28.1 L, RDW Std Deviation 49.1 H, RDW Coeff of Ele 19.6 H, Plt Count 189,MPV 9.2, Immature Gran % (Auto) 0.400, Neut % (Auto) 77.3 H, Lymph % (Auto) 15.3L, Swift % (Auto) 5.2, Eos % (Auto) 1.0, Baso % (Auto) 0.8, Absolute Neuts (auto)6.1, Absolute Lymphs (auto) 1.20, Nucleated RBC % 0, PT Cancelled, INR Cancelled, Sodium 139, Potassium 3.9, Chloride 105, Carbon Dioxide 21.3, Anion Gap 12, BUN 19, Creatinine 0.87, Estim Creat Clear Calc 73.62, Est GFR (MDRD) Non-Af 73, BUN/Creatinine Ratio 21.7 H, Glucose 166H, Calcium 8.6, Total Bilirubin 0.84, AST 38 H, ALT 27, Alkaline Phosphatase 84, Troponin T High Sens 36 H, NT pro BNP II 3787 H, Total Protein 6.5, Albumin 3.6, Globulin 2.9, Albumin/Globulin Ratio 1.2 08/21/24 13:08: PT 21.0 H, INR 1.8, Phosphorus 2.9, Magnesium 1.8 08/21/24 13:42: Troponin T Hi Sens 2 Hr 44 H 08/21/24 15:42: Troponin T Hi Sens 4Hr 45 H 08/22/24 03:55: PT 22.6 H, INR 1.9, Sodium 140, Potassium 3.7, Chloride 104, Carbon Dioxide 25.1, Anion Gap 12, BUN 22 H, Creatinine 1.19, Estim Creat Clear Calc 52.90, Est GFR (MDRD) Non-Af 50 L, BUN/Creatinine Ratio 18.8, Glucose 104 H, Calcium 8.3, Triglycerides 74, Cholesterol 105, LDL Cholesterol, Calc 64, VLDLCholesterol 15, HDL Cholesterol 26 L, Cholesterol/HDL Ratio 4.09, TSH 3.580 08/22/24 05:16: WBC 7.3, RBC 4.66, Hgb 9.5 L, Hct 33.2 L, MCV 71.2 L, MCH 20.4 L, MCHC 28.6 L, RDW Std Deviation 49.0 H, RDW Coeff of Ele 19.8 H, Plt Count 197,MPV 9.4, Immature Gran % (Auto) 0.500, Neut % (Auto) 63.5, Lymph % (Auto) 23.2, Swift % (Auto) 10.0, Eos % (Auto) 1.8, Baso % (Auto) 1.0, Absolute Neuts (auto) 4.7, Absolute Lymphs (auto) 1.70, Nucleated RBC % 0 Rhythm Strip Rhythm Strip: A-fib Rate: 125 Cardiology Labs/Tests 08/21/24 11:35: WBC 7.9, RBC 4.85, Hgb 9.8 L, Hct 34.9 L, MCV 72.0 L, MCH 20.2 L, MCHC 28.1 L, Plt Count 189, MPV 9.2, Immature Gran % (Auto) 0.400, Neut % (Auto) 77.3 H, Lymph % (Auto) 15.3 L, Swift % (Auto) 5.2, Eos % (Auto) 1.0, Baso % (Auto) 0.8, Absolute Neuts (auto) 6.1, Nucleated RBC % 0, PT Cancelled, INR Cancelled, Sodium 139, Potassium 3.9, Chloride 105, Carbon Dioxide 21.3, Anion Gap 12, BUN 19, Creatinine 0.87, Est GFR (MDRD) Non-Af 73, BUN/Creatinine Ratio 21.7 H, Glucose 166 H, Calcium 8.6, Total Bilirubin 0.84 08/21/24 13:08: PT 21.0 H, INR 1.8, Phosphorus 2.9, Magnesium 1.8 08/22/24 03:55: PT 22.6 H, INR 1.9, Sodium 140, Potassium 3.7, Chloride 104, Carbon Dioxide 25.1, Anion Gap 12, BUN 22 H, Creatinine 1.19, Est GFR (MDRD) Non-Af 50 L, BUN/Creatinine Ratio 18.8, Glucose 104 H, Calcium 8.3, Triglycerides 74, Cholesterol 105, VLDL Cholesterol 15, HDL Cholesterol 26 L, Cholesterol/HDL Ratio 4.09 08/22/24 05:16: WBC 7.3, RBC 4.66, Hgb 9.5 L, Hct 33.2 L, MCV 71.2 L, MCH 20.4 L, MCHC 28.6 L, Plt Count 197, MPV 9.4, Immature Gran % (Auto) 0.500, Neut % (Auto) 63.5, Lymph % (Auto) 23.2, Swift % (Auto) 10.0, Eos % (Auto) 1.8, Baso % (Auto) 1.0, Absolute Neuts (auto) 4.7, Nucleated RBC % 0 Rhythm: EKG: ECHO: Stress Test: Cardiac Cath: PCI: CT Surgery: Holter monitor: EPS: PPM: CXR: Chest CT Scan: Radiography Diagnostic Testing: Radiology Impression Chest X-Ray 08/21/24 11:32 IMPRESSION: Cardiomegaly with mild congestion. Reading Location: [facility] Echocardiogram 08/21/24 14:27 Interpretation Summary Normal LV size. The left ventricular ejection fraction is 20 %. There is severe global hypokinesis of the left ventricle. The left atrium is moderately enlarged. Mild-Moderate (1-2+) eccentric mitral valve insufficiency. Mildly dilated aortic root. The right atrium is mildly enlarged. Ordering Physician: Iglesia Benson Referring Physician: Abdulaziz Ackerman Performed By: Mason Reyes RCS Physical Exam Const alert and oriented x3 HEENT normocephalic Eyes EOMs intact bilaterally Neck no JVD and no carotid bruits Neck Narrative: Very thick neck. Resp Resp Narrative: Patient is tachypneic Auscultation: rales bilateral 1/[address] up Cardio Cardio Narrative: Patient's heart tones are distant and difficult to auscultate given the pulmonary situation. Rate: tachycardic Rhythm: abnormal rhythm irregularly irregular Heart Sounds: S1 normal and S2 normal; Negative for click, gallop or murmur GI GI Narrative: Obese Extremity General Extremity: edema bilateral lower extremity Details: severe Skin Skin Narrative: Weeping excoriated areas on the right lower extremity. Neuro Neuro Narrative: Alert and oriented x 3. Psych Psych Narrative: Patient gives very short and michael answers to questions. Assessment & Plan Assessment/Plan (1) Paroxysmal atrial fibrillation with RVR: PLAN: She does have atrial fibrillation with a rapid ventricular response rate. Was started on beta-latisha with metoprolol and thus far her rate has been controlled however she did have some pauses in the night. With her reduced ejection fraction it may be prudent to put her on carvedilol rather than metoprolol. * Recommend continue 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 with Coumadin target INR 2-3 * Carvedilol 6.25 mg twice a day * Discontinue metoprolol (2) Heart failure with reduced ejection fraction: PLAN: She does have heart failure with reduced ejection fraction estimated at 20%. Will recommend continuation of beta-latisha Continue BHAVIN inhibitor or Arni She is currently on IV Lasix which will be continued for another 24 hours and then switch to a combination of loop diuretic as well as aldosterone antagonist Suggest the addition of SGLT2 inhibitor Above discussed with hospitalist (3) Thoracoabdominal aortic aneurysm (TAAA): QUALIFIERS: Thoracoabdominal aorta location: supraceliac aorta Presence of rupture: without ruptureQualified Code(s): I71.61 - Supraceliac aneurysm of the abdominal aorta, without rupture PLAN: She has a stable thoracoabdominal aneurysm. 08/22/24 0906 Cosigner Signature (if applicable): CC: ~ Signed [facility]04-02-2025 Consult note Author Param Dominguez [facility] Note Date/Time August 21, 2024 5:23 pm [facility] Medical Records Department [address] [place] [address] Consultation - Cardiology 08/21/24 1640 MR#: [id number] Acct: [id number] Name: CLARIBEL ALLISON Rep #:[id number] : 1955 69 From: Param Dominguez MD PCP: Dr. Abdulaziz Ackerman MD Status:A DM IN Location: ICU CVICU20 4-1 Assessment & Plan Assessment/Plan (1) Heart failure with reduced ejection fraction: PLAN: Patient presents with a 3-month history of progressive dyspnea on exertionwhich has gotten much worse over the last 3 days. She reports a 30 pound weightgain over 3 months she has had increasing lower extremity edema and weeping sores. The patient has intermittently been on Lasix in her home environment. She had a remote history of a catheterization in October 2022 which showed a normalEF of 60% normal LAD and left main trunk with mild circumflex and RCA disease. Echo done today shows an EF of 20% in a global fashion. There were no segmentalwall motion abnormalities. The patient's troponins were minimally elevated at 36 and 44. She denies any chest pain at this point in time. The patient is diuresing with IV Lasix. Given her new severe LV dysfunction I recommend we increase her guideline directed medical therapy as blood pressure and heart rate will tolerate. We should discontinue the amlodipine. She shouldbe placed on metoprolol succinate 50 mg twice daily for rate control and treating her LV dysfunction. Would not reinstitute her lisinopril at half dose 20 mg every morning starting tomorrow morning. I recommend discontinuing the potassium supplement and placing her on spironolactone 25 mg daily starting thisevening. Should monitor basic metabolic panel every morning x 3 days to monitor her renalfunction which was normal on admission. The patient is also anemic with a hemoglobin of 9.8. (2) Paroxysmal atrial fibrillation with RVR: PLAN: Patient is atrial fibrillation rate is appropriately increased given her cardiac decompensation and heart failure. We will try to better control that byincreasing her metoprolol succinate to 50 mg twice daily. She should be continued on Coumadin for the time being and monitor her hemoglobin closely. INR was 1.8 today on admission. She has been on Coumadin long-term but most recent INRs in the chart are not therapeutic. Target INR would be 2?3. (3) Microcytic anemia: PLAN: Will defer to the primary service to evaluate the patient's anemia. 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 This has been monitored by Dr. Dodson in the past with a CTA which showed a maximum diameter of 4.9 cm in the mid descending thoracic aorta November 2022. At this point in time given the patient's morbid obesity, her pulmonary insufficiency, and her acute heart failure exacerbation she is not a candidate for further evaluation and treatment surgically for this thoracicoabdominal aneurysm at this time in my opinion. (5) Current use of chcf 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: PLAN: Patient has been on Coumadin long-term for her atrial fibrillation. Her INR today was 1.8 is noted. PLAN: Plan 1. Will titrate guideline directed medical therapy for heart failure with reduced ejection fraction as tolerated. 2. Patient would probably benefit from SGLT2 inhibitor if financially viable. 3. Continue with supplemental oxygen as tolerated. 4. Once titrated to maximum tolerated dose of guideline directed medical therapy would repeat echocardiogram 6 to 12 weeks later. 5. Will need to strictly control blood pressure given the patient's history of thoracoabdominal aneurysm. HPI Consult Data Date of Consult: 08/21/24 HPI Narrative Reason for Consultation: CHF HPI Narrative: CLARIBEL LALISON, is a 69 F who presents patient presents with progressive dyspnea on exertion and shortness of breath at rest. She also complains of orthopnea and has been sleeping in her recliner chair for the last 3 months. Patient has also noticed a 30 pound weight gain over the last 3 months and has developed weeping sores on her right lower extremity. She had been intermittently having taking increased doses of Lasix prescribed by her internal medicine team. She actually lost about 8 pounds the last time she was evaluated. This was July 31, 2024. The patient came in today because she has had progressive dyspnea on exertion and has not been able to get rid of the extra fluid. She does have a history ofatrial fibrillation is on Coumadin in the home environment. INR today was 1.8. The patient was placed on oxygen the emergency room and took it off. She claimsshe has never had it offered to her but the nursing staff reports that she has refused oxygen. The patient has been treated with wet-to-dry dressing changes and wraps to her lower extremity. She also carries a history of pulmonary insufficiency and morbid obesity. The patient's N-terminal BNP was 3206 on July 24, 2024 today it was 3787. Her BMP was within normal limits as were the calcium magnesium and phosphate she is anemic with a hemoglobin of 9.8. The patient's heart rate was in the 140 bpm range appears to be atrial fibrillation. At rest it goes down in the 120 range but when she gets up to go to the restroom it jumps up in the 150s. Her O2 saturation also dropped to 87 when she is up ambulating. The chest x-ray done today showed congestion consistent with volume overload. Patient's troponins were minimally elevated at 36 and then 44. She denies any chest pain at this point in time. But she is on Nitropaste which will assist with her pulmonary congestion. The patient is experiencing a significant diuresis since admission. The patient had a cath in October 2022 which showed normal LV function EF of 60% normal LAD and left main trunk with mild disease in the circumflex and right coronary arteries. An echocardiogram done today showed left ventricular ejection fraction of 20% with severe global LV dysfunction. The RV was normal there was moderate left atrial enlargement mild right atrial enlargement 1-2+ mitral regurgitation 1-2+ tricuspid regurgitation with a pulmonary artery pressure of 40 mmHg. There was also 1+ AI. [facility] Medical History Irregular heart beat Atrial fibrillation Former smoker Ulcer of right lower extremity Lower extremity edema Dyspnea on exertion Diastolic heart failure Acute lumbar myofascial strain Acute thoracic myofascial strain Back pain Debility, unspecified Return to work evaluation Right renal mass Angina of effort Acute hypokalemia Chest pain Non-ST elevation WA (NSTEMI) Atrial flutter Borderline type 2 diabetes mellitus GERD (gastroesophageal reflux disease) Acute low back pain Elevated random blood glucose level Anxiety and depression Menopausal disorder Melanoma Preoperative clearance Flu vaccine need Current use of chcf 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 Obesity Elevated troponin (08/09/20) Hyperlipidemia Nicotine dependence History of pulmonary embolus (PE) (08/10/20) Essential hypertension Wound of left lower extremity Insomnia Change in skin mole Heart failure with preserved ejection fraction Shortness of breath Osteoarthritis of left knee Chronic pain of left knee Tobacco use Arthritis Acute hypoxemic respiratory failure (08/09/20) Home Medications ?Medication ?Instructions ?Recorded ?Last Taken ?Type atorvastatin 10 mg tablet (Lipitor) 10 mg PO DAILY #90 tabs 09/20/23 Unknown Rx baclofen 10 mg tablet 10 mg PO BID PRN muscle spas m #60 02/23/24 Unknown Rx tabs furosemide 40 mg tablet 40 mg PO QAM FLUID #90 tabs 07/24/24 08/21/24 Rx amlodipine 10 mg tablet 10 mg PO DAILY #90 tabs 11/13 Unknown Rx lisinopril 40 mg tablet 40 mg PO DAILY #90 tabs 11/13 Unknown Rx potassium chloride 20 mEq 20 meq PO DAILY SUPPLEMENT # 30 tabs 07/25/24 Unknown Rx tablet,extended release cephalexin 500 mg capsule 500 mg PO Q8H #30 caps 07/31 Unknown Rx warfarin 6 mg tablet (Jantoven) 6 mg PO DAILY ATRIL FI BRILLATION 08/21/24 Unknown History Allergy/AdvReac Type Severity Reaction Status Date / Time latex Allergy Mild rash Verified 08/21/24 11:08 trazodone Allergy Mild Tingling Verified 08/21/24 11:08 coconut Allergy Unknown PT UNABLE Verified 08/21/24 11:09 TO RESPOND-NEEDS F/U Fish Containing Products Allergy Unknown PT UNABLE Verified 08/21/24 11:09 TO RESPOND-NEEDS F/U propoxyphene (From Allergy Hives Verified 08/21/24 11:08 Darvocet-N) acetaminophen (From AdvReac Intermediate Nausea/Vom/ Verified 08/21/24 11:08 Darvocet-N) Diarrhea Family History Other Anxiety Arthritis Depression Hypertension Thyroid disorder Surgical History H/O tubal ligation History of cholecystectomy H/O elbow surgery Social History housing: house Smoking Status: Former smoker alcohol intake: never substance use type: does not use what type of physical activity do you participate in: walking frequency: 5-6 times per week ROS Constitutional Constitutional: Reports as per HPI Eyes Eyes: Reports systems reviewed and no addt'l complaints, except as documented ENT HEENT: Reports systems reviewed and no addt'l complaints, except as documented Cardiovascular Cardiovascular: Reports as per HPI Respiratory/Chest Respiratory/Chest: Reports as per HPI Gastrointestinal Gastrointestinal: Reports systems reviewed and no addt'l complaints, except as documented Genitourinary Genitourinary: Reports as per HPI Musculoskeletal Musculoskeletal: Reports as per HPI Integumentary Integumentary: Reports as per HPI Neurologic Neurologic: Reports systems reviewed and no addt'l complaints, except as documented Psychiatric Psychiatric: Reports systems reviewed and no addt'l complaints, except as documented Endocrine Endocrinology: Reports systems reviewed and no addt'l complaints, except as documented Hematologic/Lymphatic Hematologic/Lymphatic: Reports systems reviewed and no addt'l complaints, exceptas documented Allergic/Immunologic Allergic/Immunologic: Reports systems reviewed and no addt'l complaints, except as documented Physical Exam Narrative Patient becomes profoundly dyspneic with minimal walking to the bathroom and back to the bed. Const alert and oriented x3 HEENT normocephalic Eyes EOMs intact bilaterally Neck no JVD and no carotid bruits Neck Narrative: Very thick neck. Resp Resp Narrative: Patient is tachypneic Auscultation: rales bilateral 1/[address] up Cardio Cardio Narrative: Patient's heart tones are distant and difficult to auscultate given the pulmonary situation. Rate: tachycardic Rhythm: abnormal rhythm irregularly irregular Heart Sounds: S1 normal and S2 normal; Negative for click, gallop or murmur GI GI Narrative: Obese Extremity General Extremity: edema bilateral lower extremity Details: severe Skin Skin Narrative: Weeping excoriated areas on the right lower extremity. Neuro Neuro Narrative: Alert and oriented x 3. Psych Psych Narrative: Patient gives very short and michael answers to questions. Risk Stratification Risk Stratification Applicable: Yes Age >/= 65: Yes >/= 3 CAD Risk Factors (HTN, HLD, DM, family hx of CAD, or current smoker): No Aspirin Use in the Past 7 Days: No Severe Angina (>/= episodes in 24 hours): No EKG ST Changes >/= 0.5mm: No Positive Cardiac Marker: Yes CONCHA Risk Stratification Score: 2 CONCHA % Risk: 8% Risk Charges/Coding Visit Charges Inpatient E&M: 13063 Init Hosp L3 Objective Data Vital Signs: Vital Signs Temp Pulse Resp BP Pulse Ox O2 Del Method O2 Flow Rate 97.6 F L 114 H 25 H 119/93 H 77 Room Air 3 08/21/24 16:00 08/21/24 16:00 08/21/24 16:00 08/21/24 16:00 08/21/24 15:03 08/21/24 14:54 08/21/24 14:20 Oxygen Flow Rate (L/min) 3 Oxygen Delivery Method Room Air Weight: 214 lb 1.102 oz Body Mass Index (BMI) 35.6 Lab / Micro Data Attestation: I reviewed the patient's lab results. 08/21/24 11:35 08/21/24 11:35 Labs: Laboratory Results - last 24 hr 08/21/24 11:35: WBC 7.9, RBC 4.85, Hgb 9.8 L, Hct 34.9 L, MCV 72.0 L, MCH 20.2 L, MCHC 28.1 L, RDW Std Deviation 49.1 H, RDW Coeff of Ele 19.6 H, Plt Count 189,MPV 9.2, Immature Gran % (Auto) 0.400, Neut % (Auto) 77.3 H, Lymph % (Auto) 15.3L, Swift % (Auto) 5.2, Eos % (Auto) 1.0, Baso % (Auto) 0.8, Absolute Neuts (auto)6.1, Absolute Lymphs (auto) 1.20, Nucleated RBC % 0, PT Cancelled, INR Cancelled, Sodium 139, Potassium 3.9, Chloride 105, Carbon Dioxide 21.3, Anion Gap 12, BUN 19, Creatinine 0.87, Estim Creat Clear Calc 73.62, Est GFR (MDRD) Non-Af 73, BUN/Creatinine Ratio 21.7 H, Glucose 166 H, Calcium 8.6, Total Bilirubin 0.84, AST 38 H, ALT 27, Alkaline Phosphatase 84, Troponin T High Sens 36 H, NT pro BNP II 3787 H, Total Protein 6.5, Albumin 3.6, Globulin 2.9, Albumin/Globulin Ratio 1.2 08/21/24 13:08: PT 21.0 H, INR 1.8, Phosphorus 2.9, Magnesium 1.8 08/21/24 13:42: Troponin T Hi Sens 2 Hr 44 H Rhythm Strip Rhythm Strip: A-fib Rate: 125 Cardiology Labs/Tests 08/21/24 11:35: WBC 7.9, RBC 4.85, Hgb 9.8 L, Hct 34.9 L, MCV 72.0 L, MCH 20.2 L, MCHC 28.1 L, Plt Count 189, MPV 9.2, Immature Gran % (Auto) 0.400, Neut % (Auto) 77.3 H, Lymph % (Auto) 15.3 L, Swift % (Auto) 5.2, Eos % (Auto) 1.0, Baso % (Auto) 0.8, Absolute Neuts (auto) 6.1, Nucleated RBC % 0, PT Cancelled, INR Cancelled, Sodium 139, Potassium 3.9, Chloride 105, Carbon Dioxide 21.3, Anion Gap 12, BUN 19, Creatinine 0.87, Est GFR (MDRD) Non-Af 73, BUN/Creatinine Ratio 21.7 H, Glucose 166 H, Calcium 8.6, Total Bilirubin 0.84 08/21/24 13:08: PT 21.0 H, INR 1.8, Phosphorus 2.9, Magnesium 1.8 Rhythm: EKG: ECHO: Stress Test: Cardiac Cath: PCI: CT Surgery: Holter monitor: EPS: PPM: CXR: Chest CT Scan: Radiography Diagnostic Testing: Radiology Impression Chest X-Ray 08/21/24 11:32 IMPRESSION: Cardiomegaly with mild congestion. Reading Location: [facility] Echocardiogram 08/21/24 14:27 Interpretation Summary Normal LV size. The left ventricular ejection fraction is 20 %. There is severe global hypokinesis of the left ventricle. The left atrium is moderately enlarged. Mild-Moderate (1-2+) eccentric mitral valve insufficiency. Mildly dilated aortic root. The right atrium is mildly enlarged. Ordering Physician: Iglesia Benson Referring Physician: Abdulaziz Ackerman Performed By: Mason Reyes RCS 08/21/24 8793 <Electronically signed by Param Dominguez MD> Cosigner Signature (if applicable): CC: Dr. Abdulaziz Ackerman MD~ Signed [facility] Work Phone: [phone] 434-439004-02-2025 Consult note [facility] Medical Records Department [address] [place] [address] Consultation - Cardiology 08/21/24 1640 MR#: [id number] Acct: [id number] Name: CLARIBEL ALLISON Rep #:[id number] : 1955 69 From: Param Dominguez MD PCP: Dr. Abdulaziz Ackerman MD Status:A DM IN Location: ICU CVICU20 4-1 Assessment & Plan Assessment/Plan (1) Heart failure with reduced ejection fraction: PLAN: Patient presents with a 3-month history of progressive dyspnea on exertionwhich has gotten much worse over the last 3 days. She reports a 30 pound weightgain over 3 months she has had increasing lower extremity edema and weeping sores. The patient has intermittently been on Lasix in her home e nvironment. She had a remote history of a catheterization in October 2022 which showed a normalEF of 60% normal LAD and left main trunk with mild circumflex and RCA disease. Echo done today shows an EF of 20% in a global fashion. There were no segmentalwall motion abnormalities. The patient's troponins were minimally elevated at 36 and 44. She denies any chest pain at this point in time. The patient is diuresing with IV Lasix. Given her new severe LV dysfunction I recommend we increaseher guideline directed medical therapy as blood pressure and heart rate will tolerate. We should discontinue the amlodipine. She shouldbe placed on metoprolol succinate 50 mg twice daily for rate control and treating her LV dysfunction. Would not reinstitute her lisinopril at half dose 20 mg every morning starting tomorrow morning. I recommend discontinuing the potassium supplement and placing her on spironolactone 25 mg daily starting thisevening. Should monitor basic metabolic panel every morning x 3 days to monitor her renalfunction which was normal on admission. The patient is also anemic with a hemoglobin of 9.8. (2) Paroxysmal atrial fibrillation with RVR: PLAN: Patient is atrial fibrillation rate is appropriately increased given her cardiac decompensation and heart failure. We will try to better control that byincreasing her metoprolol succinate to 50mg twice daily. She should be continued on Coumadin for the time being and monitor her hemoglobin closely. INR was 1.8 today on admission. She has been on Coumadin long-term but most recent INRs in the chart are not therapeutic. Target INR would be 2?3. (3) Microcytic anemia: PLAN: Will defer to the primary service to evaluate the patient's anemia. 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 This has been monitored byDr. Dodson in the past with a CTA which showed a maximum diameter of 4.9 cm in the mid descending thoracic aorta November 2022. At this point in time given the patient's morbid obesity, her pulmonary insufficiency, and her acute heart failure exacerbation she is not a candidate for further evaluation and treatment surgically for this thoracicoabdominal aneurysm at this time in my opinion. (5) Current use of chcf 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: PLAN: Patient has been on Coumadin long-term for her atrial fibrillation. Her INR today was 1.8 is noted. PLAN: Plan 1. Will titrate guideline directed medical therapy for heart failure with reduced ejection fractionas tolerated. 2. Patient would probably benefit from SGLT2 inhibitor if financially viable. 3. Continue with supplemental oxygen as tolerated. 4. Once titrated to maximum tolerated dose of guideline directed medical therapy would repeat echocardiogram 6 to 12 weeks later. 5. Will need to strictly control blood pressure given the patient's history of thoracoabdominal aneurysm. HPI Consult Data Date of Consult: 08/21/24 HPI Narrative Reason for Consultation: CHF HPI Narrative: CLARIBEL ALLISON, is a 69 F who presents patient presents with progressive dyspnea on exertion and shortness of breath at rest. She also complains of orthopnea and has been sleeping in her recliner chairfor the last 3 months. Patient has also noticed a 30 pound weight gain over the last 3 months and has developed weeping sores on her right lower extremity. She had been intermittently having taking in creased doses of Lasix prescribed by her internal medicine team. She actually lost about 8 pounds the last time she was evaluated. This was July 31, 2024. The patient came in today because she has had progressive dyspnea on exertion and has not been ableto get rid of the extra fluid. She does have a history ofatrial fibrillation is on Coumadin in the home environment. INR today was 1.8. The patient was placed on oxygen the emergency room and took itoff. She claimsshe has never had it offered to her but the nursing staff reports that she has refused oxygen. The patient has been treated with wet-to-dry dressing changes and wraps to her lower extremity. She also carries a history of pulmonary insufficiency and morbid obesity. The patient's N-terminal BNP was 3206 on July 24, 2024 today it was 3787. Her BMP was within normal limits as were the calcium magnesium and phosphate she is anemic with a hemoglobin of 9.8. The patient's heart rate was in the 140 bpm range appears to be atrial fibrillation. At rest it goes down in the 120 range but when she gets up to go to the restroom it jumps up in the 150s. Her O2 saturation also dropped to 87 when she is up ambulating. The chest x-ray done today showed congestion consistent with volume overload. Patient's troponins were minimally elevated at 36 and then 44. She denies any chest pain at this point in time. But she is on Nitropaste which will assist with her pulmonary congestion. The patient is experiencing a significant diuresis since admission. The patient had a cath in October 2022 which showed normal LV function EF of 60% normal LAD and left main trunk with mild disease in the circumflex and right coronary arteries. An echocardiogram done today showed left ventricular ejection fraction of 20% with severe global LVdysfunction. The RV was normal there was moderate left atrial enlargement mild right atrial enlargement 1-2+ mitral regurgitation 1-2+ tricuspid regurgitation with a pulmonary artery pressure of 40 mmHg. There was also 1+ AI. [facility] Medical History Irregular heart beat Atrial fibrillation Former smoker Ulcer of right lower extremity Lower extremity edema Dyspnea on exertion Diastolic heart failure Acute lumbar myofascial strain Acute thoracic myofascial strain Back pain Debility, unspecified Return to work evaluation Right renal mass Angina of effort Acute hypokalemia Chest pain Non-ST elevation WA (NSTEMI) Atrial flutter Borderline type 2 diabetes mellitus GERD (gastroesophageal reflux disease) Acute low back pain Elevated random blood glucose level Anxiety and depression Menopausal disorder Melanoma Preoperative clearance Flu vaccine need Current use of chcf 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 Obesity Elevated troponin (08/09/20) Hyperlipidemia Nicotine dependence History of pulmonary embolus (PE) (08/10/20) Essential hypertension Wound of left lower extremity Insomnia Change in skin mole Heart failure with preserved ejection fraction Shortness of breath Osteoarthritis of left knee Chronic pain of left knee Tobacco use Arthritis Acute hypoxemic respiratory failure (08/09/20) Home Medications ?Medication ?Instructions ?Recorded ?Last Taken ?Type atorvastatin 10 mg tablet (Lipitor) 10 mg PO DAILY #90 tabs 09/20/23 Unknown Rx baclofen 10 mg tablet 10 mg PO BID PRN muscle spas m #60 02/23/24 Unknown Rx tabs furosemide 40 mg tablet 40 mg PO QAM FLUID #90 tabs 07/24/24 08/21/24 Rx amlodipine 10 mg tablet 10 mg PO DAILY #90 tabs 11/13 Unknown Rx lisinopril 40 mg tablet 40 mg PO DAILY #90 tabs 11/13 Unknown Rx potassium chloride 20 mEq 20 meq PO DAILY SUPPLEMENT # 30 tabs 07/25/24 Unknown Rx tablet,extended release cephalexin 500 mg capsule 500 mg PO Q8H #30 caps 07/31 Unknown Rx warfarin 6 mg tablet (Jantoven) 6 mg PO DAILY ATRIL FI BRILLATION 08/21/24 Unknown History Allergy/AdvReac Type Severity Reaction Status Date / Time latex Allergy Mild rash Verified 08/21/24 11:08 trazodone Allergy Mild Tingling Verified 08/21/24 11:08 coconut Allergy Unknown PT UNABLE Verified 08/21/24 11:09 TO RESPOND-NEEDS F/U Fish Containing Products Allergy Unknown PT UNABLE Verified 08/21/24 11:09 TO RESPOND-NEEDS F/U propoxyphene (From Allergy Hives Verified 08/21/24 11:08 Darvocet-N) acetaminophen (From AdvReac Intermediate Nausea/Vom/ Verified 08/21/24 11:08 Darvocet-N) Diarrhea Family History Other Anxiety Arthritis Depression Hypertension Thyroid disorder Surgical History H/O tubal ligation History of cholecystectomy H/O elbow surgery Social History housing: house Smoking Status: Former smoker alcohol intake: never substance use type: does not use what type of physical activity do you participate in: walking frequency: 5-6 times per week ROS Constitutional Constitutional: Reports as per HPI Eyes Eyes: Reports systems reviewed and no addt'l complaints, except as documented ENT HEENT: Reports systems reviewed and no addt'l complaints, except as documented Cardiovascular Cardiovascular: Reports as per HPI Respiratory/Chest Respiratory/Chest: Reports as per HPI Gastrointestinal Gastrointestinal: Reports systems reviewed and no addt'l complaints, except as documented Genitourinary Genitourinary: Reports as per HPI Musculoskeletal Musculoskeletal: Reports as per HPI Integumentary Integumentary: Reports as per HPI Neurologic Neurologic: Reports systems reviewed and no addt'l complaints, except as documented Psychiatric Psychiatric: Reports systems reviewed and no addt'l complaints, except as documented Endocrine Endocrinology: Reports systems reviewed and no addt'l complaints, except as documented Hematologic/Lymphatic Hematologic/Lymphatic: Reports systems reviewed and no addt'l complaints, exceptas documented Allergic/Immunologic Allergic/Immunologic: Reports systems reviewed and no addt'l complaints, except as documented Physical Exam Narrative Patient becomes profoundly dyspneic with minimal walking to the bathroom and back to the bed. Const alert and oriented x3 HEENT normocephalic Eyes EOMs intact bilaterally Neck no JVD and no carotid bruits Neck Narrative: Very thick neck. Resp Resp Narrative: Patient is tachypneic Auscultation: rales bilateral 1/2 way up Cardio Cardio Narrative: Patient's heart tones are distant and difficult to auscultate given the pulmonary situation. Rate: tachycardic Rhythm: abnormal rhythm irregularly irregular Heart Sounds: S1 normal and S2 normal; Negative for click, gallop or murmur GI GI Narrative: Obese Extremity General Extremity: edema bilateral lower extremity Details: severe Skin Skin Narrative: Weeping excoriated areas on the right lower extremity. Neuro Neuro Narrative: Alert and oriented x 3. Psych Psych Narrative: Patient gives very short and michael answers to questions. Risk Stratification Risk Stratification Applicable: Yes Age >/= 65: Yes >/= 3 CAD Risk Factors (HTN, HLD, DM, family hx of CAD, or current smoker): No Aspirin Use in the Past 7 Days: No Severe Angina (>/= episodes in 24 hours): No EKG ST Changes >/= 0.5mm: No Positive Cardiac Marker: Yes CONCHA Risk Stratification Score: 2 CONCHA % Risk: 8% Risk Charges/Coding Visit Charges Inpatient E&M: 64022 Init Hosp L3 Objective Data Vital Signs: Vital Signs Temp Pulse Resp BP Pulse Ox O2 Del Method O2 Flow Rate 97.6 F L 114 H 25 H 119/93 H 77 Room Air 3 08/21/24 16:00 08/21/24 16:00 08/21/24 16:00 08/21/24 16:00 08/21/24 15:03 08/21/24 14:54 08/21/24 14:20 Oxygen Flow Rate (L/min) 3 Oxygen Delivery Method Room Air Weight: 214 lb 1.102 oz Body Mass Index (BMI) 35.6 Lab / Micro Data Attestation: I reviewed the patient's lab results. 08/21/24 11:35 08/21/24 11:35 Labs: Laboratory Results - last 24 hr 08/21/24 11:35: WBC 7.9, RBC 4.85, Hgb 9.8 L, Hct 34.9 L, MCV 72.0 L, MCH 20.2 L, MCHC 28.1 L, RDW Std Deviation 49.1 H, RDW Coeff of Ele 19.6 H, Plt Count 189,MPV 9.2, Immature Gran % (Auto) 0.400, Neut % (Auto) 77.3 H, Lymph % (Auto) 15.3L, Swift % (Auto) 5.2, Eos % (Auto) 1.0, Baso % (Auto) 0.8, Absolute Neuts (auto)6.1, Absolute Lymphs (auto) 1.20, Nucleated RBC % 0, PT Cancelled, INR Cancelled, Sodium 139, Potassium 3.9, Chloride 105, Carbon Dioxide 21.3, Anion Gap 12, BUN 19, Creatinine 0.87, Estim Creat Clear Calc 73.62, Est GFR (MDRD) Non-Af 73, BUN/Creatinine Ratio 21.7 H, Glucose 166H, Calcium 8.6, Total Bilirubin 0.84, AST 38 H, ALT 27, Alkaline Phosphatase 84, Troponin T High Sens 36 H, NT pro BNP II 3787 H, Total Protein 6.5, Albumin 3.6, Globulin 2.9, Albumin/Globulin Ratio 1.2 08/21/24 13:08: PT 21.0 H, INR 1.8, Phosphorus 2.9, Magnesium 1.8 08/21/24 13:42: Troponin T Hi Sens 2 Hr 44 H Rhythm Strip Rhythm Strip: A-fib Rate: 125 Cardiology Labs/Tests 08/21/24 11:35: WBC 7.9, RBC 4.85, Hgb 9.8 L, Hct 34.9 L, MCV 72.0 L, MCH 20.2 L, MCHC 28.1 L, Plt Count 189, MPV 9.2, Immature Gran % (Auto) 0.400, Neut % (Auto) 77.3 H, Lymph % (Auto) 15.3 L, Swift % (Auto) 5.2, Eos % (Auto) 1.0, Baso % (Auto) 0.8, Absolute Neuts (auto) 6.1, Nucleated RBC % 0, PT Cancelled, INR Cancelled, Sodium 139, Potassium 3.9, Chloride 105, Carbon Dioxide 21.3, Anion Gap 12, BUN 19, Creatinine 0.87, Est GFR (MDRD) Non-Af 73, BUN/Creatinine Ratio 21.7 H, Glucose 166 H, Calcium 8.6, Total Bilirubin 0.84 08/21/24 13:08: PT 21.0 H, INR 1.8, Phosphorus 2.9, Magnesium 1.8 Rhythm: EKG: ECHO: Stress Test: Cardiac Cath: PCI: CT Surgery: Holter monitor: EPS: PPM: CXR: Chest CT Scan: Radiography Diagnostic Testing: Radiology Impression Chest X-Ray 08/21/24 11:32 IMPRESSION: Cardiomegaly with mild congestion. Reading Location: [facility] Echocardiogram 08/21/24 14:27 Interpretation Summary Normal LV size. The left ventricular ejection fraction is 20 %. There is severe global hypokinesis of the left ventricle. The left atrium is moderately enlarged. Mild-Moderate (1-2+) eccentric mitral valve insufficiency. Mildly dilated aortic root. The right atrium is mildly enlarged. Ordering Physician: Iglesia Benson Referring Physician: Abdulaziz Ackerman Performed By: Mason Reyes RCS 08/21/24 1723 Cosigner Signature (if applicable): CC: Dr. Abdulaziz Ackerman MD~ Signed [facility]04-02-2025 Discharge summary Author Skyler Watkins [facility] Note Date/Time August 21, 2024 3:07 pm [facility] Medical Records Department [address] [place] [address] Emergency Department Summary 08/21/24 MR#: [id number] Acct: [id number] Name: CLARIBEL ALLISON Rep #:[id number] : 1955 69 From: Skyler Watkins MD PCP: Dr. Abdulaziz Ackerman MD Status:A DM IN Location: ICU CVICU20 4-1 HPI History of Present Illness Chief Complaint: Chest Pain Detail of Chief Complaint: Increasing dyspnea, dyspnea on exertion, orthopnea and chest discomfort Informant: patient Onset/Context/Timing Onset: - (Documented HPI narrative since onset is different depending on symptom.) Context: Gradual Onset Timing: Continuous Quality: Shortness of breath at rest presently Location: Cardiovascular Current Severity: Moderate Maximum Severity: Moderate Worsened by: Activity and lying flat Relieved by: Nothing Associated Symptoms Associated Symptoms: She has had chest discomfort. She was seen by her PCP yesterday and Lasix Narrative Narrative: Patient is a 69-year-old woman. She has history of atrial fibrillation, type 2 diabetes, thoracoabdominal aortic aneurysm, pulmonary embolus, atrial fibrillation and flutter, lower extremity exam, hypertension, hyperlipidemia, tobacco use who is on Coumadin. She states she is compliant with her medication. She reports she has been sleeping in a chair for the past 3 months. She has had increased shortness of breath with activity. She states she has to stop if she walks more than 20 steps. She believes her heart rate became fast within the last 12 to 24 hours. She does not recall when her last INR was obtained. She denies pleuritic chest pain. She does report midsternal discomfort. This is associated with activity as well as at rest. She denies black or maroon-colored stool. Denies blood in her urine. Denies bruising easily. Denies bleeding of her gums. She denies history of obstructive sleep apnea. She does have history of insomnia. She has not seen by localcardiologist.She was seen earlier this month by her PCP. Assessment at that time was dyspnea on exertion, lower extremity exam a, diastolic heart failure and atrial flutter which is chronic. She was seen on the by nurse practitioner. Office note was reviewed. Diagnoses at that time was open wounds of both lower extremities with Serous drainage. Prior similar symptoms: Yes Recent Illness/Hospitalization: Yes (Office notes were reviewed for this month authored by Dr. Wright and nurse p) [facility] Medical History (Updated 08/21/24 @ 14:53 by Lou Maruqez) Irregular heart beat Atrial fibrillation Former smoker Ulcer of right lower extremity Lower extremity edema Dyspnea on exertion Diastolic heart failure Acute lumbar myofascial strain Acute thoracic myofascial strain Back pain Debility, unspecified Return to work evaluation Right renal mass Angina of effort Acute hypokalemia Chest pain Non-ST elevation WA (NSTEMI) Atrial flutter Borderline type 2 diabetes mellitus GERD (gastroesophageal reflux disease) Acute low back pain Elevated random blood glucose level Anxiety and depression Menopausal disorder Melanoma Preoperative clearance Flu vaccine need Current use of chcf 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 Obesity Elevated troponin (08/09/20) Hyperlipidemia Nicotine dependence History of pulmonary embolus (PE) (08/10/20) Essential hypertension Wound of left lower extremity Insomnia Change in skin mole Heart failure with preserved ejection fraction Shortness of breath Osteoarthritis of left knee Chronic pain of left knee Tobacco use Arthritis Acute hypoxemic respiratory failure (08/09/20) Home Medications ?Medication ?Instructions ?Recorded ?Last Taken ?Type atorvastatin 10 mg tablet (Lipitor) 10 mg PO DAILY #90 tabs 09/20/23 Unknown Rx baclofen 10 mg tablet 10 mg PO BID PRN muscle spas m #60 02/23/24 Unknown Rx tabs furosemide 40 mg tablet 40 mg PO QAM FLUID #90 tabs 07/24/24 08/21/24 Rx amlodipine 10 mg tablet 10 mg PO DAILY #90 tabs 11/13 Unknown Rx lisinopril 40 mg tablet 40 mg PO DAILY #90 tabs 11/13 Unknown Rx potassium chloride 20 mEq 20 meq PO DAILY SUPPLEMENT # 30 tabs 07/25/24 Unknown Rx tablet,extended release warfarin 4 mg tablet 4 mg PO QDAY #60 tabs Unknown Rx cephalexin 500 mg capsule 500 mg PO Q8H #30 caps 07/31 Unknown Rx Allergy/AdvReac Type Severity Reaction Status Date / Time latex Allergy Mild rash Verified 08/21/24 11:08 trazodone Allergy Mild Tingling Verified 08/21/24 11:08 coconut Allergy Unknown PT UNABLE Verified 08/21/24 11:09 TO RESPOND-NEEDS F/U Fish Containing Products Allergy Unknown PT UNABLE Verified 08/21/24 11:09 TO RESPOND-NEEDS F/U propoxyphene (From Allergy Hives Verified 08/21/24 11:08 Darvocet-N) acetaminophen (From AdvReac Intermediate Nausea/Vom/ Verified 08/21/24 11:08 Darvocet-N) Diarrhea Family History Other Anxiety Arthritis Depression Hypertension Thyroid disorder Surgical History H/O tubal ligation History of cholecystectomy H/O elbow surgery Social History housing: house Smoking Status: Former smoker alcohol intake: never substance use type: does not use what type of physical activity do you participate in: walking frequency: 5-6 times per week ROS ROS ED Constitutional Constitutional ED: Denies chills, fever(s), subjective, sweats or weight loss Eyes Eyes: Denies blurry vision ENT ENT ED: Denies ear pain, rhinorrhea or sore throat Cardiovascular Cardiovascular: Reports chest pain, orthopnea, palpitations and racing heartbeat; Denies paroxysmal nocturnal dyspnea Respiratory/Chest Respiratory/Chest: Reports dyspnea, dyspnea on exertion and orthopnea; Denies cough or paroxysmal nocturnal dyspnea Gastrointestinal Gastrointestinal: Denies abdominal pain, diarrhea, nausea or vomiting Genitourinary Genitourinary ED: Denies dysuria, hematuria or urinary frequency Musculoskeletal Musculoskeletal: Denies arthralgias or myalgias Integumentary Reports other Details: Venous stasis dermatitis lower extremity. Neurologic Neurologic: Reports weakness Endocrine Endocrinology: Denies cold intolerance or heat intolerance Hematologic/Lymphatic Hematologic/Lymphatic: Reports systems reviewed and no addt'l complaints, exceptas documented EXAM Physical Exam Const Vital Signs: 08/21/24 11:10 08/21/24 11:12 08/21/24 11:14 Temperature 97 F L 97.7 F L Temperature Source Temporal Temporal Pulse Rate 138 H 128 H Respiratory Rate 23 H 27 H Respiratory Effort Short of Breath Labored Blood Pressure 177/117 H 177/117 H Blood Pressure Mean 137 137 Pulse Ox 95 97 Oxygen Delivery Method Room Air Room Air 08/21/24 12:08 08/21/24 12:12 Temperature 98.4 F Temperature Source Oral Pulse Rate 126 H 133 H Respiratory Rate 24 H 24 H Respiratory Effort Blood Pressure 136/111 H 147/91 H Blood Pressure Mean 119 109 Pulse Ox 97 97 Oxygen Delivery Method Room Air Room Air Positive well nourished and well developed Constitutional Narrative: BMI is 36.8. General Appearance ED: well developed and pallor HEENT Reports moist mucous membranes HEENT Narrative: Head is atraumatic normocephalic. Ears normal. Nares patent. Eyes PERRL and EOMs intact bilaterally General Eye ED: Negative for pale conjunctiva or scleral icterus Neck no lymphadenopathy, supple and no JVD Neck Narrative: Unable to turn the patient has JVD due to body habitus. Chest Wall inspection of chest normal and palpation of chest normal Resp No normal respiratory effort and No clear to auscultation bilaterally Auscultation: rales bilateral base Cardio no murmurs Rate: tachycardic Rhythm: abnormal rhythm irregularly irregular GI normal to inspection, nondistended, normoactive bowel sounds, non-tender, non-distended and no masses; Negative for hepatosplenomegaly GI Narrative: There is no shifting dullness or fluid wave appreciated. Abdomen is protuberant. Back/Spine no CVA tenderness Back/Spine Narrative: There is sacral pitting edema. Extremity Extremity Narrative: Venous stasis dermatitis. Neuro oriented x3 and CN's II-XII intact bilaterally Sensorium / Orientation: alert Psych mental status grossly normal Skin no rashes or lesions noted, No no wounds and skin turgor normal General Skin Exam: pallor; Negative for jaundice MDM MDM MDM Narrative Medical decision making narrative: Patient is in all likelihood and congestive heart failure due to A-fib with RVR. Will rate control since she has chronic A-fib. She is on Coumadin. PT/INR wasordered. Appropriate blood work is ordered to assess renal function, electrolytes patient since her Lasix was increased from 20-40. Also troponin torule out cardiac ischemia as a cause since she reports compliance with her diet. Lab Data Attestation: I reviewed the patient's lab results. Lab results narrative: CBC reveals microcytic anemia.This is not a new finding. Basic metabolic panel is remarkable and elevated BUN to creatinine ratio and glucose of 166 with a normal CO2 anion gap. Troponin is slightly elevated 36 most likely due to her heart failure. BNP is 3787. Labs: Laboratory Results - last 24 hr 08/21/24 11:35 WBC 7.9 RBC 4.85 Hgb 9.8 L Hct 34.9 L MCV 72.0 L MCH 20.2 L MCHC 28.1 L RDW Std Deviation 49.1 H RDW Coeff of Ele 19.6 H Plt Count 189 MPV 9.2 Immature Gran % (Auto) 0.400 Neut % (Auto) 77.3 H Lymph % (Auto) 15.3 L Swift % (Auto) 5.2 Eos % (Auto) 1.0 Baso % (Auto) 0.8 Absolute Neuts (auto) 6.1 Absolute Lymphs (auto) 1.20 Nucleated RBC % 0 PT Cancelled INR Cancelled Sodium 139 Potassium 3.9 Chloride 105 Carbon Dioxide 21.3 Anion Gap 12 BUN 19 Creatinine 0.87 Estim Creat Clear Calc 73.62 Est GFR (MDRD) Non-Af 73 BUN/Creatinine Ratio 21.7 H Glucose 166 H Calcium 8.6 Total Bilirubin 0.84 AST 38 H ALT 27 Alkaline Phosphatase 84 Troponin T High Sens 36 H NT pro BNP II 3787 H Total Protein 6.5 Albumin 3.6 Globulin 2.9 Albumin/Globulin Ratio 1.2 Radiography Chest X-Ray - ED: 2 View and Read by ED Physician (Panel reviewed interpreted byme. Respiratory volumes is diminished. She does have evidence of cardiomegaly. Cardiac silhouette is normal. There is no effusion noted there may be slight congestion consistent with CHF. There is no curly B-lines. There is no evidence of infiltrate.) Diagnostic Testing: Clinical Impression(s) from Imaging Studies Chest X-Ray 08/21/24 11:32 IMPRESSION: Cardiomegaly with mild congestion. Reading Location: [facility] Rhythm Strip Rhythm Strip: A-fib Rate: 141 EKG Initial EKG: Attestation: I personally reviewed and interpreted this EKG as follows: Interpretation: Atrial Fibrillation (Rate is 139. This probably result represents a flutter with a variable block. QRS duration 80 ms. QT duration 290 ms. [place] to the right. There is no ossific ST-T wave changes throughout. This is probably due to the a flutter with variable block.) Management Discussion w/another healthcare provider: Hospitalist (Hospitalist was paged foradmission. Full admit PCU) and Workers Compensation Specialist (Spoke Dr. Epifanio Dominguez. Will rate control with metoprolol. He requested 50 twice daily after admission. He will see her in the hospital. 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 Call [facility] ([phone]) or report to the closest Emergency Room. Call 911 if necessary. 08/21/24 1507 <Electronically signed by Skyler Watkins MD> Cosigner Signature (if applicable): CC: Dr. Abdulaziz Ackerman MD ~ Signed [facility] Work Phone: 1(797) 875-686704-02-2025 History and physical note Author Iglesia Benson [facility] Note Date/Time August 21, 2024 1:22 pm [facility] Medical Records Department [address] [place] [id number] H&P Exam - Hospitalist 08/21/24 1238 MR#: [id number] Acct: [id number] Name: CLARIBEL ALLISON Rep #:[id number] : 1955 69 From: Iglesia Flynn PCP: Dr. Abdulaziz Ackerman MD Status:R EG ER Location: ED HPI - General General Date of Admission: 08/21/24 Date of Service: 08/21/24 Chief Complaint: Shortness of breath progressively worsening for 3 months. Dyspnea at rest, orthopnea and weight gain HPI Narrative CLARIBEL ALLISON, is a 69 F with multiple comorbidities came to ED with extreme shortness of breath, dyspnea at rest, orthopnea, sleeping in the recliner for past 3 months along with lower extremity edema mild abdominal swelling. She stated she gained about 30 pounds in the last 3 months. She has wheezing and congestion but denies any chest pain pressure or tightness. She still smokes cigarettes sometimes although she had failed attempt of quitting in the past. On warfarin for A-fib. In ED, patient was found to have A-fib with RVR 139 beats minute. Chest x-ray individually reviewed and shows pulmonary congestion's, central involvement and cardiomegaly. 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 Obesity Elevated troponin (08/09/20) Hyperlipidemia Nicotine dependence History of pulmonary embolus (PE) (08/10/20) Essential hypertension Wound of left lower extremity Insomnia Change in skin mole Heart failure with preserved ejection fraction Shortness of breath Osteoarthritis of left knee Chronic pain of left knee Tobacco use Arthritis Acute hypoxemic respiratory failure (08/09/20) Home Medications ?Medication ?Instructions ?Recorded ?Last Taken ?Type atorvastatin 10 mg tablet (Lipitor) 10 mg PO DAILY #90 tabs 09/20/23 Unknown Rx baclofen 10 mg tablet 10 mg PO BID PRN muscle spas m #60 02/23/24 Unknown Rx tabs furosemide 40 mg tablet 40 mg PO QAM FLUID #90 tabs 07/24/24 Unknown Rx amlodipine 10 mg tablet 10 mg PO DAILY #90 tabs 11/13 Unknown Rx lisinopril 40 mg tablet 40 mg PO DAILY #90 tabs 11/13 Unknown Rx potassium chloride 20 mEq 20 meq PO DAILY SUPPLEMENT # 30 tabs 07/25/24 Unknown Rx tablet,extended release warfarin 4 mg tablet 4 mg PO QDAY #60 tabs Unknown Rx cephalexin 500 mg capsule 500 mg PO Q8H #30 caps 07/31 Unknown Rx Allergy/AdvReac Type Severity Reaction Status Date / Time latex Allergy Mild rash Verified 08/21/24 11:08 trazodone Allergy Mild Tingling Verified 08/21/24 11:08 coconut Allergy Unknown PT UNABLE Verified 08/21/24 11:09 TO RESPOND-NEEDS F/U Fish Containing Products Allergy Unknown PT UNABLE Verified 08/21/24 11:09 TO RESPOND-NEEDS F/U propoxyphene (From Allergy Hives Verified 08/21/24 11:08 Darvocet-N) acetaminophen (From AdvReac Intermediate Nausea/Vom/ Verified 08/21/24 11:08 Darvocet-N) Diarrhea Family History Other Anxiety Arthritis Depression Hypertension Thyroid disorder Surgical History H/O tubal ligation History of cholecystectomy H/O elbow surgery Social History housing: house Smoking Status: Former smoker alcohol intake: never substance use type: does not use what type of physical activity do you participate in: walking frequency: 5-6 times per week ROS ROS Narrative Constitutional: Reports fatigue and weakness. No fever. HEENT: Reports systems reviewed and no addt'l complaints, except as documented Respiratory/Chest: As described in HPI. Extreme shortness of breath/orthopnea/dyspnea at rest. Cannot walk more than 10 feet without breathless/stopping CVS: Occasional chest congestion. Gastrointestinal: Denies coffee ground emesis, hematemesis or vomiting Genitourinary: Denies burning urination or new urinary tract symptoms Musculoskeletal: Denies acute joint pain or limited range of motion. No acute injury Neurologic: Denies seizure-like symptoms. skin: Tinea right leg superficial erosions from scratching Endocrinology: Reports systems reviewed and no addt'l complaints, except as documented Hematologic/Lymphatic: Reports systems reviewed and no addt'l complaints, exceptas documented Rest 14 ROS are negative except as mentioned in HPI Vital Signs Vital Signs Vital Signs: 08/21/24 11:10 08/21/24 11:12 08/21/24 11:14 Temperature 97 F L 97.7 F L Temperature Source Temporal Temporal Pulse Rate 138 H 128 H Respiratory Rate 23 H 27 H Respiratory Effort Short of Breath Labored Blood Pressure 177/117 H 177/117 H Blood Pressure Mean 137 137 Pulse Ox 95 97 Oxygen Delivery Method Room Air Room Air 08/21/24 12:08 Temperature Temperature Source Pulse Rate 126 H Respiratory Rate 24 H Respiratory Effort Blood Pressure 136/111 H Blood Pressure Mean 119 Pulse Ox 97 Oxygen Delivery Method Room Air Weight Weight: 221 lb 1.978 oz Body Mass Index (BMI) 36.8 Physical Exam Narrative General: Alert, Oriented x3, Cooperative HEENT: Atraumatic, PERRLA, EOMI, Normocephalic Oral: Oral mucosa dry. No Gingival or Mucosal Lesions/ Ulcerations Neck: Supple, bilateral JVD, Negative Carotid Bruits Chest wall/Lungs: Air entry diminished in all lung henderson. Bilateral expiratorywheezing and fine crackles. Cardiovascular: Irregular rhythm, A-fib RVR, No M/G/R Abdomen: Bowel Sounds Present, Soft, Non Tender, abdominal wall swelling : No dysuria. No renal angle tenderness. No suprapubic tenderness. Extremities: Bilateral 3-4+ pitting, thigh edema, Capillary Refill Less than 3 Seconds Skin: Tiny right lower leg erosion/superficial ulcer Musculoskeletal: No Tenderness to Palpation of Joints or Extremities. ROM restricted due to swelling. Neurological: Cranial nerves II-XII grossly intact, DTR 2+/4. No acute focal neurological deficit. Psych/Mental Status: Flat affect. In extreme distress and anxiety.. Results Lab / Micro Data 08/21/24 11:35 08/21/24 11:35 Labs: Laboratory Results - last 24 hr 08/21/24 11:35: WBC 7.9, RBC 4.85, Hgb 9.8 L, Hct 34.9 L, MCV 72.0 L, MCH 20.2 L, MCHC 28.1 L, RDW Std Deviation 49.1 H, RDW Coeff of Ele 19.6 H, Plt Count 189,MPV 9.2, Immature Gran % (Auto) 0.400, Neut % (Auto) 77.3 H, Lymph % (Auto) 15.3L, Swift % (Auto) 5.2, Eos % (Auto) 1.0, Baso % (Auto) 0.8, Absolute Neuts (auto)6.1, Absolute Lymphs (auto) 1.20, Nucleated RBC % 0, PT Cancelled, INR Cancelled, Sodium 139, Potassium 3.9, Chloride 105, Carbon Dioxide 21.3, Anion Gap 12, BUN 19, Creatinine 0.87, Estim Creat Clear Calc 73.62, Est GFR (MDRD) Non-Af 73, BUN/Creatinine Ratio 21.7 H, Glucose 166 H, Calcium 8.6, Total Bilirubin 0.84, AST 38 H, ALT 27, Alkaline Phosphatase 84, Troponin T High Sens 36 H, NT pro BNP II 3787 H, Total Protein 6.5, Albumin 3.6, Globulin 2.9, Albumin/Globulin Ratio 1.2 Rhythm Strip Rhythm Strip: A-fib Rate: 141 Imaging Radiology Impression Chest X-Ray 08/21/24 11:32 IMPRESSION: Cardiomegaly with mild congestion. Reading Location: [facility] Assessment & Plan Assessment/Plan (1) Acute exacerbation of CHF (congestive heart failure): (2) Paroxysmal atrial fibrillation with RVR: PLAN: Plan 69-year-old female admitted with 3 months of progressive worsening of shortness of breath, dyspnea at rest, orthopnea, anasarca and chest x-ray findings suggestive of heart failure exacerbation 1. Subacute debility/dyspnea at rest due to acute on chronic HFpEF: Patient is being admitted in PCU. Chest x-ray newly reviewed and shows pulmonary congestion/edema. 60 mg IV Lasix given in ER physician and then started on furosemide drip 10 mg/h. Heart failure core measures including intake and output, fluid restriction less than 1800 mL, daily weight monitoring, kidney andelectrolytes monitoring. 2D echo ordered. Nitroglycerin ointment ordered for preload reduction 2. A-fib RVR and history of chronic PE.: Patient is still tachycardic. Heart rate 133 permanent. Metoprolol 5 mg IV given and then oral 25 mg twice daily. A-fib RVR mainly due to adrenergic response from heart failure. PT/INR ordered. On warfarin 4 mg daily continued. Tachycardia expected to get better with diuresis. 3. CAD/non-STEMI: Patient was last admitted in October 2022 for non-STEMI. At that time diagnostic cardiac cath showed EF 60%, normal LV wall motion and systolic function. No significant obstructive coronary vessels found. 4. Chronic left knee degenerative arthritis: PT and OT ordered. Pain can 5. Essential hypertension: Blood pressure is high in triage. Is getting better. Patient already on furosemide drip and metoprolol. Titrate according to blood pressure. 6. Chronic thoracoabdominal aortic aneurysm: Last seen in vascular surgery clinic in November 2022. CTA imaging at that time showed 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 largest in the mid/distal descending thoracic aorta. 7. DVT prophylaxis, high risk with history of chronic PE: On warfarin. PT/INR pending. Titrate the dose according to INR. Living will/advanced directive/end of life care: Patient does not have living will or advanced directive or designated power of commercial attorney for health. His sister is next to kin. After discussion of benefits/risks procedures involved with full code, DNR CC arrest and DNR CC, the patient opted for full code. Patient does want artificial life support including intubation, tube feed, ventilator and/chest compression, central venous catheter, vasopressor and DC shock if needed Total time spent in [id number] encounter in discussion of advanced directive 17 minutes. Echo 11/08/2022 Interpretation Summary Normal LV size. Mild concentric left ventricular hypertrophy. Mild to moderate (1-2+) tricuspid valve insufficiency. Mildly dilated aortic root. Dilated descending aorta. The estimated ejection fraction is 55 %. Left ventricular systolic function is normal. Stage 2 diastolic dysfunction. Laboratory Results 08/21/24 11:35: WBC 7.9, RBC 4.85, Hgb 9.8 L, Hct 34.9 L, MCV 72.0 L, MCH 20.2 L, MCHC 28.1 L, RDW Std Deviation 49.1 H, RDW Coeff of Ele 19.6 H, Plt Count 189,MPV 9.2, Immature Gran % (Auto) 0.400, Neut % (Auto) 77.3 H, Lymph % (Auto) 15.3L, Swift % (Auto) 5.2, Eos % (Auto) 1.0, Baso % (Auto) 0.8, Absolute Neuts (auto)6.1, Absolute Lymphs (auto) 1.20, Nucleated RBC % 0, PT Cancelled, INR Cancelled, Sodium 139, Potassium 3.9, Chloride 105, Carbon Dioxide 21.3, Anion Gap 12, BUN19, Creatinine 0.87, Estim Creat Clear Calc 73.62, Est GFR (MDRD) Non-Af 73, BUN/Creatinine Ratio 21.7 H, Glucose 166 H, Calcium 8.6, Total Bilirubin 0.84, AST 38 H, ALT 27, Alkaline Phosphatase 84, Troponin T High Sens 36 H, NT pro BNP II 3787 H, Total Protein 6.5, Albumin 3.6, Globulin 2.9, Albumin/Globulin Ratio 1.2 Clinical Impression(s) from Imaging Studies Chest X-Ray 08/21/24 11:32 IMPRESSION: Cardiomegaly with mild congestion. Reading Location: [facility] Charges/Coding Visit Charges Inpatient E&M: 89818 Init Hosp L3 Procedures Hospitalists Procedures: 83352 Advncd Care Plan 30 Min 08/21/24 1322 <Electronically signed by Iglesia Benson MD> Cosigner Signature (if applicable): CC: Dr. Abdulaziz Ackerman MD; Dr. Iglesia Benson MD~ Signed [facility] Work Phone: 1(439) 673-797304-02-2025 Discharge summary [facility] Medical Records Department [address] [place] [address] Emergency Department Summary 08/21/24 MR#: [id number] Acct: [id number] Name: CLARIBEL ALLISON Rep #:[id number] : 1955 69 From: Skyler Watkins MD PCP: Dr. Abdulaziz Ackerman MD Status:A DM IN Location: ICU CVICU20 4-1 HPI History of Present Illness Chief Complaint: Chest Pain Detail of Chief Complaint: Increasing dyspnea, dyspnea on exertion, orthopnea and chest discomfort Informant: patient Onset/Context/Timing Onset: - (Documented HPI narrative since onset is different depending on symptom.) Context: Gradual Onset Timing: Continuous Quality: Shortness of breath at rest presently Location: Cardiovascular Current Severity: Moderate Maximum Severity: Moderate Worsened by: Activity and lying flat Relieved by: Nothing Associated Symptoms Associated Symptoms: She has had chest discomfort. She was seen by her PCP yesterday and Lasix Narrative Narrative: Patient is a 69-year-old woman. She has history of atrial fibrillation, type 2 diabetes, thoracoabdominal aortic aneurysm, pulmonary embolus, atrial fibrillation and flutter, lower extremity exam, hypertension, hyperlipidemia, tobacco use who is on Coumadin. She states she is compliant with her medication. She reports she has been sleeping in a chair for the past 3 months. She has had increased shortness of breath with activity. She states she has to stop if she walks more than 20 steps. She believes her heart rate became fast within the last 12 to 24 hours. She does not recall when her last INR was obtained. She denies pleuritic chest pain. She does report midsternal discomfort. This is ass ociated with activity as well as at rest. She denies black or maroon-colored stool. Denies blood in her urine. Denies bruising easily. Deniesbleeding of her gums. She denies history of obstructive sleep apnea. She does have history of insomnia. She has not seen by localcardiologist.She was seen earlier this month by her PCP. Assessment atthat time was dyspnea on exertion, lower extremity exam a, diastolic heart failure and atrial flutter which is chronic. She was seen on the by nurse practitioner. Office note was reviewed. Diagnoses at that time was open wounds of both lower extremities with Serous drainage. Prior similar symptoms: Yes Recent Illness/Hospitalization: Yes (Office notes were reviewed for this month authored by Dr. Wright and nurse p) [facility] Medical History (Updated 08/21/24 @ 14:53 by Lou Marquez) Irregular heart beat Atrial fibrillation Former smoker Ulcer of right lower extremity Lower extremity edema Dyspnea on exertion Diastolic heart failure Acute lumbar myofascial strain Acute thoracic myofascial strain Back pain Debility, unspecified Return to work evaluation Right renal mass Angina of effort Acute hypokalemia Chest pain Non-ST elevation WA (NSTEMI) Atrial flutter Borderline type 2 diabetes mellitus GERD (gastroesophageal reflux disease) Acute low back pain Elevated random blood glucose level Anxiety and depression Menopausal disorder Melanoma Preoperative clearance Flu vaccine need 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 Obesity Elevated troponin (08/09/20) Hyperlipidemia Nicotine dependence History of pulmonary embolus (PE) (08/10/20) Essential hypertension Wound of left lower extremity Insomnia Change in skin mole Heart failure with preserved ejection fraction Shortness of breath Osteoarthritis of left knee Chronic pain of left knee Tobacco use Arthritis Acute hypoxemic respiratory failure (08/09/20) Home Medications ?Medication ?Instructions ?Recorded ?Last Taken ?Type atorvastatin 10 mg tablet (Lipitor) 10 mg PO DAILY #90 tabs 09/20/23 Unknown Rx baclofen 10 mg tablet 10 mg PO BID PRN muscle spas m #60 02/23/24 Unknown Rx tabs furosemide 40 mg tablet 40 mg PO QAM FLUID #90 tabs 07/24/24 08/21/24 Rx amlodipine 10 mg tablet 10 mg PO DAILY #90 tabs 11/13 Unknown Rx lisinopril 40 mg tablet 40 mg PO DAILY #90 tabs 11/13 Unknown Rx potassium chloride 20 mEq 20 meq PO DAILY SUPPLEMENT # 30 tabs 07/25/24 Unknown Rx tablet,extended release warfarin 4 mg tablet 4 mg PO QDAY #60 tabs Unknown Rx cephalexin 500 mg capsule 500 mg PO Q8H #30 caps 07/31 Unknown Rx Allergy/AdvReac Type Severity Reaction Status Date / Time latex Allergy Mild rash Verified 08/21/24 11:08 trazodone Allergy Mild Tingling Verified 08/21/24 11:08 coconut Allergy Unknown PT UNABLE Verified 08/21/24 11:09 TO RESPOND-NEEDS F/U Fish Containing Products Allergy Unknown PT UNABLE Verified 08/21/24 11:09 TO RESPOND-NEEDS F/U propoxyphene (From Allergy Hives Verified 08/21/24 11:08 Darvocet-N) acetaminophen (From AdvReac Intermediate Nausea/Vom/ Verified 08/21/24 11:08 Darvocet-N) Diarrhea Family History Other Anxiety Arthritis Depression Hypertension Thyroid disorder Surgical History H/O tubal ligation History of cholecystectomy H/O elbow surgery Social History housing: house Smoking Status: Former smoker alcohol intake: never substance use type: does not use what type of physical activity do you participate in: walking frequency: 5-6 times per week ROS ROS ED Constitutional Constitutional ED: Denies chills, fever(s), subjective, sweats or weight loss Eyes Eyes: Denies blurry vision ENT ENT ED: Denies ear pain, rhinorrhea or sore throat Cardiovascular Cardiovascular: Reports chest pain, orthopnea, palpitations and racing heartbeat; Denies paroxysmalnocturnal dyspnea Respiratory/Chest Respiratory/Chest: Reports dyspnea, dyspnea on exertion and orthopnea; Denies cough or paroxysmal nocturnal dyspnea Gastrointestinal Gastrointestinal: Denies abdominal pain, diarrhea, nausea or vomiting Genitourinary Genitourinary ED: Denies dysuria, hematuria or urinary frequency Musculoskeletal Musculoskeletal: Denies arthralgias or myalgias Integumentary Reports other Details: Venous stasis dermatitis lower extremity. Neurologic Neurologic: Reports weakness Endocrine Endocrinology: Denies cold intolerance or heat intolerance Hematologic/Lymphatic Hematologic/Lymphatic: Reports systems reviewed and no addt'l complaints, exceptas documented EXAM Physical Exam Const Vital Signs: 08/21/24 11:10 08/21/24 11:12 08/21/24 11:14 Temperature 97 F L 97.7 F L Temperature Source Temporal Temporal Pulse Rate 138 H 128 H Respiratory Rate 23 H 27 H Respiratory Effort Short of Breath Labored Blood Pressure 177/117 H 177/117 H Blood Pressure Mean 137 137 Pulse Ox 95 97 Oxygen Delivery Method Room Air Room Air 08/21/24 12:08 08/21/24 12:12 Temperature 98.4 F Temperature Source Oral Pulse Rate 126 H 133 H Respiratory Rate 24 H 24 H Respiratory Effort Blood Pressure 136/111 H 147/91 H Blood Pressure Mean 119 109 Pulse Ox 97 97 Oxygen Delivery Method Room Air Room Air Positive well nourished and well developed Constitutional Narrative: BMI is 36.8. General Appearance ED: well developed and pallor HEENT Reports moist mucous membranes HEENT Narrative: Head is atraumatic normocephalic. Ears normal. Nares patent. Eyes PERRL and EOMs intact bilaterally General Eye ED: Negative for pale conjunctiva or scleral icterus Neck no lymphadenopathy, supple and no JVD Neck Narrative: Unable to turn the patient has JVD due to body habitus. Chest Wall inspection of chest normal and palpation of chest normal Resp No normal respiratory effort and No clear to auscultation bilaterally Auscultation: rales bilateral base Cardio no murmurs Rate: tachycardic Rhythm: abnormal rhythm irregularly irregular GI normal to inspection, nondistended, normoactive bowel sounds, non-tender, non- distended and no masses; Negative for hepatosplenomegaly GI Narrative: There is no shifting dullness or fluid wave appreciated. Abdomen is protuberant. Back/Spine no CVA tenderness Back/Spine Narrative: There is sacral pitting edema. Extremity Extremity Narrative: Venous stasis dermatitis. Neuro oriented x3 and CN's II-XII intact bilaterally Sensorium / Orientation: alert Psych mental status grossly normal Skin no rashes or lesions noted, No no wounds and skin turgor normal General Skin Exam: pallor; Negative for jaundice MDM MDM MDM Narrative Medical decision making narrative: Patient is in all likelihood and congestive heart failure due to A-fib with RVR. Will rate control since she has chronic A-fib. She is on Coumadin. PT/INR wasordered. Appropriate blood work is ordered to assess renal function, electrolytes patient since her Lasix was increased from 20-40. Also troponin torule out cardiac ischemia as a cause since she reports compliance with her diet. Lab Data Attestation: I reviewed the patient's lab results. Lab results narrative: CBC reveals microcytic anemia.This is not a new finding. Basic metabolic panel is remarkable and elevated BUN to creatinine ratio and glucose of 166 with a normal CO2 anion gap. Troponin is slightly elevated 36 most likely due to her heart failure. BNP is 3787. Labs: Laboratory Results - last 24 hr 08/21/24 11:35 WBC 7.9 RBC 4.85 Hgb 9.8 L Hct 34.9 L MCV 72.0 L MCH 20.2 L MCHC 28.1 L RDW Std Deviation 49.1 H RDW Coeff of Ele 19.6 H Plt Count 189 MPV 9.2 Immature Gran % (Auto) 0.400 Neut % (Auto) 77.3 H Lymph % (Auto) 15.3 L Swift % (Auto) 5.2 Eos % (Auto) 1.0 Baso % (Auto) 0.8 Absolute Neuts (auto) 6.1 Absolute Lymphs (auto) 1.20 Nucleated RBC % 0 PT Cancelled INR Cancelled Sodium 139 Potassium 3.9 Chloride 105 Carbon Dioxide 21.3 Anion Gap 12 BUN 19 Creatinine 0.87 Estim Creat Clear Calc 73.62 Est GFR (MDRD) Non-Af 73 BUN/Creatinine Ratio 21.7 H Glucose 166 H Calcium 8.6 Total Bilirubin 0.84 AST 38 H ALT 27 Alkaline Phosphatase 84 Troponin T High Sens 36 H NT pro BNP II 3787 H Total Protein 6.5 Albumin 3.6 Globulin 2.9 Albumin/Globulin Ratio 1.2 Radiography Chest X-Ray - ED: 2 View and Read by ED Physician (Panel reviewed interpreted byme. Respiratory volumes is diminished. She does have evidence of cardiomegaly. Cardiac silhouette is normal. There is no effusion noted there may be slight congestion consistent with CHF. There is no curly B-lines. There is no evidence of infiltrate.) Diagnostic Testing: Clinical Impression(s) from Imaging Studies Chest X-Ray 08/21/24 11:32 IMPRESSION: Cardiomegaly with mild congestion. Reading Location: [facility] Rhythm Strip Rhythm Strip: A-fib Rate: 141 EKG Initial EKG: Attestation: I personally reviewed and interpreted this EKG as follows: Interpretation: Atrial Fibrillation (Rate is 139. This probably result represents a flutter with a variable block. QRS duration 80 ms. QT duration 290 ms. [place] to the right. There is no ossific ST-T wave changes throughout. This is probably due to the a flutter with variable block.) Management Discussion w/another healthcare provider: Hospitalist (Hospitalist was paged foradmission. Full admit PCU) and Workers Compensation Specialist (Spoke Dr. Epifanio Dominguez. Will rate control with metoprolol. He requested 50 twice daily after admission. He will see her in the hospital. A page was placed to the hospitalist.) Discharge Plan Dx/Rx/DC Orders Clinical Impression: Atrial flutter, Essential hypertension, Hyperlipidemia, Current use of chcf 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, Acute exacerbation of CHF (congestive heart failure), Anasarca, Microcytic anemia, Type 2 diabetes mellitus with hyperglycemia, Tachypnea on examination Disposition Disposition: Acute Care Hospital [facility] Discharge Date/Time: 08/21/24 14:20 What to do if you have Problems For any increased pain, shortness of breath, bleeding, nausea or vomiting, chestpain, or any unexpected problems, contact your Primary Care Provider. Call [facility] ([phone]) or report tothe closest Emergency Room. Call 911 if necessary. 08/21/24 1503 Cosigner Signature (if applicable): CC: Dr. Abdulaziz Ackerman MD ~ Signed [facility]04-02-2025 History and physical note [facility] Medical Records Department [address] [place] [address] H&P Exam - Hospitalist 08/21/24 1238 MR#: [id number] Acct: [id number] Name: CLARIBEL ALLISON Rep #:[id number] : 1955 69 From: Iglesia Flynn PCP: Dr. Abdulaziz Ackerman MD Status:R EG ER Location: ED HPI - General General Date of Admission: 08/21/24 Date of Service: 08/21/24 Chief Complaint: Shortness of breath progressively worsening for 3 months. Dyspnea at rest, orthopnea and weight gain HPI Narrative CLARIBEL ALLISON, is a 69 F with multiple comorbidities came to ED with extreme shortness of breath, dyspnea at rest, orthopnea, sleeping in the recliner for past 3 months along with lower extremity edema mild abdominal swelling. She stated she gained about 30 pounds in the last 3 months. She has wheezing and congestion but denies any chest pain pressure or tightness. She still smokes cigarettes sometimes although she had failed attempt of quitting in the past. On warfarin for A-fib. In ED, patient was found to have A-fib with RVR 139 beats minute. Chest x-ray individually reviewedand shows pulmonary congestion's, central involvement and cardiomegaly. 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 Obesity Elevated troponin (08/09/20) Hyperlipidemia Nicotine dependence History of pulmonary embolus (PE) (08/10/20) Essential hypertension Wound of left lower extremity Insomnia Change in skin mole Heart failure with preserved ejection fraction Shortness of breath Osteoarthritis of left knee Chronic pain of left knee Tobacco use Arthritis Acute hypoxemic respiratory failure (08/09/20) Home Medications ?Medication ?Instructions ?Recorded ?Last Taken ?Type atorvastatin 10 mg tablet (Lipitor) 10 mg PO DAILY #90 tabs 09/20/23 Unknown Rx baclofen 10 mg tablet 10 mg PO BID PRN muscle spas m #60 02/23/24 Unknown Rx tabs furosemide 40 mg tablet 40 mg PO QAM FLUID #90 tabs 07/24/24 Unknown Rx amlodipine 10 mg tablet 10 mg PO DAILY #90 tabs 11/13 Unknown Rx lisinopril 40 mg tablet 40 mg PO DAILY #90 tabs 11/13 Unknown Rx potassium chloride 20 mEq 20 meq PO DAILY SUPPLEMENT # 30 tabs 07/25/24 Unknown Rx tablet,extended release warfarin 4 mg tablet 4 mg PO QDAY #60 tabs Unknown Rx cephalexin 500 mg capsule 500 mg PO Q8H #30 caps 07/31 Unknown Rx Allergy/AdvReac Type Severity Reaction Status Date / Time latex Allergy Mild rash Verified 08/21/24 11:08 trazodone Allergy Mild Tingling Verified 08/21/24 11:08 coconut Allergy Unknown PT UNABLE Verified 08/21/24 11:09 TO RESPOND-NEEDS F/U Fish Containing Products Allergy Unknown PT UNABLE Verified 08/21/24 11:09 TO RESPOND-NEEDS F/U propoxyphene (From Allergy Hives Verified 08/21/24 11:08 Darvocet-N) acetaminophen (From AdvReac Intermediate Nausea/Vom/ Verified 08/21/24 11:08 Darvocet-N) Diarrhea Family History Other Anxiety Arthritis Depression Hypertension Thyroid disorder Surgical History H/O tubal ligation History of cholecystectomy H/O elbow surgery Social History housing: house Smoking Status: Former smoker alcohol intake: never substance use type: does not use what type of physical activity do you participate in: walking frequency: 5-6 times per week ROS ROS Narrative Constitutional: Reports fatigue and weakness. No fever. HEENT: Reports systems reviewed and no addt'l complaints, except as documented Respiratory/Chest: As described in HPI. Extreme shortness of breath/orthopnea/dyspnea at rest. Cannot walk more than 10 feet without breathless/stopping CVS: Occasional chest congestion. Gastrointestinal: Denies coffee ground emesis, hematemesis or vomiting Genitourinary: Denies burning urination or new urinary tract symptoms Musculoskeletal: Denies acute joint pain or limited range of motion. No acute injury Neurologic: Denies seizure-like symptoms. skin: Tinea right leg superficial erosions from scratching Endocrinology: Reports systems reviewed and no addt'l complaints, except as documented Hematologic/Lymphatic: Reports systems reviewed and no addt'l complaints, exceptas documented Rest 14 ROS are negative except as mentioned in HPI Vital Signs Vital Signs Vital Signs: 08/21/24 11:10 08/21/24 11:12 08/21/24 11:14 Temperature 97 F L 97.7 F L Temperature Source Temporal Temporal Pulse Rate 138 H 128 H Respiratory Rate 23 H 27 H Respiratory Effort Short of Breath Labored Blood Pressure 177/117 H 177/117 H Blood Pressure Mean 137 137 Pulse Ox 95 97 Oxygen Delivery Method Room Air Room Air 08/21/24 12:08 Temperature Temperature Source Pulse Rate 126 H Respiratory Rate 24 H Respiratory Effort Blood Pressure 136/111 H Blood Pressure Mean 119 Pulse Ox 97 Oxygen Delivery Method Room Air Weight Weight: 221 lb 1.978 oz Body Mass Index (BMI) 36.8 Physical Exam Narrative General: Alert, Oriented x3, Cooperative HEENT: Atraumatic, PERRLA, EOMI, Normocephalic Oral: Oral mucosa dry. No Gingival or Mucosal Lesions/ Ulcerations Neck: Supple, bilateral JVD, Negative Carotid Bruits Chest wall/Lungs: Air entry diminished in all lung henderson. Bilateral expiratorywheezing and fine crackles. Cardiovascular: Irregular rhythm, A-fib RVR, No M/G/R Abdomen: Bowel Sounds Present, Soft, Non Tender, abdominal wall swelling : No dysuria. No renal angle tenderness. No suprapubic tenderness. Extremities: Bilateral 3-4+ pitting, thigh edema, Capillary Refill Less than 3 Seconds Skin: Tiny right lower leg erosion/superficial ulcer Musculoskeletal: No Tenderness to Palpation of Joints or Extremities. ROM restricted due to swelling. Neurological: Cranial nerves II-XII grossly intact, DTR 2+/4. No acute focal neurological deficit. Psych/Mental Status: Flat affect. In extreme distress and anxiety.. Results Lab / Micro Data 08/21/24 11:35 08/21/24 11:35 Labs: Laboratory Results - last 24 hr 08/21/24 11:35: WBC 7.9, RBC 4.85, Hgb 9.8 L, Hct 34.9 L, MCV 72.0 L, MCH 20.2 L, MCHC 28.1 L, RDW Std Deviation 49.1 H, RDW Coeff of Ele 19.6 H, Plt Count 189,MPV 9.2, Immature Gran % (Auto) 0.400, Neut % (Auto) 77.3 H, Lymph % (Auto) 15.3L, Swift % (Auto) 5.2, Eos % (Auto) 1.0, Baso % (Auto) 0.8, Absolute Neuts (auto)6.1, Absolute Lymphs (auto) 1.20, Nucleated RBC % 0, PT Cancelled, INR Cancelled, Sodium 139, Potassium 3.9, Chloride 105, Carbon Dioxide 21.3, Anion Gap 12, BUN 19, Creatinine 0.87, Estim Creat Clear Calc 73.62, Est GFR (MDRD) Non-Af 73, BUN/Creatinine Ratio 21.7 H, Glucose 166H, Calcium 8.6, Total Bilirubin 0.84, AST 38 H, ALT 27, Alkaline Phosphatase 84, Troponin T High Sens 36 H, NT pro BNP II 3787 H, Total Protein 6.5, Albumin 3.6, Globulin 2.9, Albumin/Globulin Ratio 1.2 Rhythm Strip Rhythm Strip: A-fib Rate: 141 Imaging Radiology Impression Chest X-Ray 08/21/24 11:32 IMPRESSION: Cardiomegaly with mild congestion. Reading Location: [facility] Assessment & Plan Assessment/Plan (1) Acute exacerbation of CHF (congestive heart failure): (2) Paroxysmal atrial fibrillation with RVR: PLAN: Plan 69-year-old female admitted with 3 months of progressive worsening of shortness of breath, dyspnea at rest, orthopnea, anasarca and chest x-ray findings suggestive of heart failure exacerbation 1. Subacute debility/dyspnea at rest due to acute on chronic HFpEF: Patient is being admitted in PCU. Chest x-ray newly reviewed and shows pulmonary congestion/edema. 60 mg IV Lasix given in ER physician and then started on furosemide drip 10 mg/h. Heart failure core measures including intake and ou tput, fluid restriction less than 1800 mL, daily weight monitoring, kidney andelectrolytes monitoring. 2D echo ordered. Nitroglycerin ointment ordered for preload reduction 2. A-fib RVR and history of chronic PE.: Patient is still tachycardic. Heart rate 133 permanent. Metoprolol 5 mg IV given and then oral 25 mg twice daily. A- fib RVR mainly due to adrenergic response from heart failure. PT/INR ordered. On warfarin 4 mg daily continued. Tachycardia expected to get better with diuresis. 3. CAD/non-STEMI: Patient was last admitted in October 2022 for non-STEMI. At that time diagnostic cardiac cath showed EF 60%, normal LV wall motion and systolic function. No significant obstructive coronary vessels found. 4. Chronic left knee degenerative arthritis: PT and OT ordered. Pain can 5. Essential hypertension: Blood pressure is high in triage. Is getting better. Patient already on furosemide drip and metoprolol. Titrate according to blood pressure. 6. Chronic thoracoabdominal aortic aneurysm: Last seen in vascular surgery clinic in November 2022. CTAimaging at that time showed 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 largest in the mid/distal descending thoracic aorta. 7. DVT prophylaxis, high risk with history of chronic PE: On warfarin. PT/INR pending. Titrate the dose according to INR. Living will/advanced directive/end of life care: Patient does not have living will or advanced directive or designated power of commercial attorney for health. His sister is next to kin. After discussion of benefits/risks procedures involved with full code, DNR CC arrest and DNR CC, the patient opted for fullcode. Patient does want artificial life support including intubation, tube feed, ventilator and/chest compression, central venous catheter, vasopressor and DC shock if needed Total time spent in [id number] encounter in discussion of advanced directive 17 minutes. Echo 11/08/2022 Interpretation Summary Normal LV size. Mild concentric left ventricular hypertrophy. Mild to moderate (1-2+) tricuspid valve insufficiency. Mildly dilated aortic root. Dilated descending aorta. The estimated ejection fraction is 55 %. Left ventricular systolic function is normal. Stage 2 diastolic dysfunction. Laboratory Results 08/21/24 11:35: WBC 7.9, RBC 4.85, Hgb 9.8 L, Hct 34.9 L, MCV 72.0 L, MCH 20.2 L, MCHC 28.1 L, RDW Std Deviation 49.1 H, RDW Coeff of Ele 19.6 H, Plt Count 189,MPV 9.2, Immature Gran % (Auto) 0.400, Neut % (Auto) 77.3 H, Lymph % (Auto) 15.3L, Swift % (Auto) 5.2, Eos % (Auto) 1.0, Baso % (Auto) 0.8, Absolute Neuts (auto)6.1, Absolute Lymphs (auto) 1.20, Nucleated RBC % 0, PT Cancelled, INR Cancelled, Sodium 139, Potassium 3.9, Chloride 105, Carbon Dioxide 21.3, Anion Gap 12, BUN19, Creatinine 0.87,Estim Creat Clear Calc 73.62, Est GFR (MDRD) Non-Af 73, BUN/Creatinine Ratio 21.7 H, Glucose 166 H,Calcium 8.6, Total Bilirubin 0.84, AST 38 H, ALT 27, Alkaline Phosphatase 84, Troponin T High Sens 36 H, NT pro BNP II 3787 H, Total Protein 6.5, Albumin 3.6, Globulin 2.9, Albumin/Globulin Ratio 1.2 Clinical Impression(s) from Imaging Studies Chest X-Ray 08/21/24 11:32 IMPRESSION: Cardiomegaly with mild congestion. Reading Location[facility] Charges/Coding Visit Charges Inpatient E&M: 71707 Init Hosp L3 Procedures Hospitalists Procedures: 83303 Advncd Care Plan 30 Min 08/21/24 1322 Cosigner Signature (if applicable): CC: Dr. Abdulaziz Ackerman MD; Dr. Iglesia Benson MD~ Signed [facility]04-02-2025 Radiology Diagnostic study note [facility] Imaging Services [address] [place] [address] Chest PA and Lateral MR#: [id number] Acct: [id number] Name: CLARIBEL ALLISON Rep #: [id number] : 1955 F 69 From: Suzanne Flores MD PCP: Dr. Abdulaziz Ackerman MD Status: P RE ER Study:Chest PA and Lateral Date of Exam: 08/21/24 Exam# [id number] Ordering Dr: Marc Watkins MD EXAM: XR Chest, 2 Views CLINICAL INDICATION: DYSPNEA, DYSPNEA EXERTION, ORTHOPNEA BILATERAL RAL TECHNIQUE: Frontal and lateral views of the chest. COMPARISON: No relevant prior studies available. FINDINGS: LUNGS AND PLEURAL SPACES: See below. HEART: Cardiomegaly with mild congestion. MEDIASTINUM: Unremarkable. Normal mediastinal contour. BONES/JOINTS: Unremarkable. No acute fracture. RAD/Chest PA and Lateral IMPRESSION: Cardiomegaly with mild congestion. Reading Location: [facility] CC: Dr. Abdulaziz Ackerman MD; Dr. 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 August 21, 2024 12:26pm Microcytic anemia acute August 212024 12:26pm Paroxysmal atrial fibrillati on with RVR acute August 21, 2024 12:26pm Tachypnea on examination acute August 21, 2024 12:26pm Type 2 diabetes mellitus wit h hyperglycemia acute August 21, 2024 12:26pm Acute exacerbation of CHF (congestive heart failure) chronic August 21, 2024 12:26pm Cardiac LV ejection fraction of 20-34% chronic August 21, 2024 12:26pm Essential hypertension chronic Ap 2024 12:26pm Hyperlipidemia chronic August 21, 2024 12:26pm Thoracoabdominal aortic aneu rysm (TAAA) chronic August 21, 2024 12:26pm Bradycardia inactive August 21 12:26pm Heart failure with reduced ejection fraction inactive August 21 12:26pm Atrial fibrillation chronic September 06, 2024 8:35am Diastolic heart failure chronic A pril 2024 8:35am Dyspnea on exertion chronic September 06, 2024 8:35am Essential hypertension chronic Ap ril 2024 8:35am Lower extremity edema chronic Apr il 2024 8:35am Ulcer of right lower extremity chron ic September 06, 2024 8:35am Atrial fibrillation chronic September 272024 8:53am Congestive heart failure chronic September 27, 2024 8:53am Essential hypertension chronic Ma y 2024 8:53am Insomnia chronic September 27, 2024 8:53am Ulcer of left lower extremit y with fat layer exposed chronic September 27, 2024 8:53am Bilateral knee pain acute October 25, 2024 8:04am Osteoarthritis of left knee chronic October 25, 2024 8:04am [facility] Work Phone: 1(885) 564-453003-05-2025 Evaluation note* Diagnosis Onset Date Resolution Status Admit Date Diastolic heart failure acute M arch 2024 2:08pm Dyspnea on exertion acute July 24, 2024 2:08pm Lower extremity edema acute Jul 2:08pm Ulcer of right lower extremity acute July 24, 2024 2:08pm Atrial flutter chronic July 24, 2024 2:08pm Diastolic heart failure acute M arch 2024 9:34am Open wound of lower extremity acute July 31, 2024 9:34am [facility] Work Phone: 1(704) 724-932903-05-2025 Evaluation note* Diagnosis Onset Date Resolution Status Admit Date Diastolic heart failure acute M arch 2024 2:08pm Dyspnea on exertion acute July 24, 2024 2:08pm Lower extremity edema acute [facility] 2024 2:08pm Ulcer of right lower extremity acute July 24, 2024 2:08pm Atrial flutter chronic July 24, 2024 2:08pm Diastolic heart failure acute [facility] 2024 9:34am Open wound of lower extremity acute July 31, 2024 9:34am Anasarca acute August 21 12:26pm Atrial flutter acute August 21, 2024 12:26pm 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 August 21, 2024 12:26pm Microcytic anemia acute August 212024 12:26pm Paroxysmal atrial fibrillati on with RVR acute August 21, 2024 12:26pm Tachypnea on examination acute August 21, 2024 12:26pm Type 2 diabetes mellitus wit h hyperglycemia acute August 21, 2024 12:26pm Acute exacerbation of CHF (congestive heart failure) chronic August 21, 2024 12:26pm Essential hypertension chronic Ap 2024 12:26pm Hyperlipidemia chronic August 21, 2024 12:26pm [facility] Work Phone: 1([phone]) 749-254403-05-2025 Evaluation note* Diagnosis Onset Date Resolution Status Admit Date Diastolic heart failure acute [facility] 2024 2:08pm Dyspnea on exertion acute July 24, 2024 2:08pm Lower extremity edema acute [facility] 2024 2:08pm Ulcer of right lower extremity acute July 24, 2024 2:08pm Atrial flutter chronic July 24, 2024 2:08pm Diastolic heart failure acute [facility] 2024 9:34am Open wound of lower extremity acute July 31, 2024 9:34am Anasarca acute August 21 12:26pm Atrial flutter acute August 21, 2024 12:26pm Bradycardia acute August 21 12:26pm Current use of chcf 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 acute August 21, 2024 12:26pm Heart failure with reduced ejection fraction acute August 21 12:26pm Microcytic anemia acute August 212024 12:26pm Paroxysmal atrial fibrillati on with RVR acute August 21, 2024 12:26pm Tachypnea on examination acute August 21, 2024 12:26pm Type 2 diabetes mellitus wit h hyperglycemia acute August 21, 2024 12:26pm Acute exacerbation of CHF (congestive heart failure) chronic August 21, 2024 12:26pm Cardiac LV ejection fraction of 20-34% chronic August 21, 2024 12:26pm Essential hypertension chronic Ap ril 2024 12:26pm Hyperlipidemia chronic August 21, 2024 12:26pm Thoracoabdominal aortic aneu rysm (TAAA) chronic August 21, 2024 12:26pm [facility] Work Phone: 1([phone]) 628-241803-05-2025 Evaluation note* Diagnosis Onset Date Resolution Status Admit Date Atrial flutter chronic July 24, 2024 2:08pm Diastolic heart failure chronic M arch 2024 2:08pm Dyspnea on exertion chronic July 24, 2024 2:08pm Lower extremity edema chronic Mar ch 2024 2:08pm Ulcer of right lower extremity chron ic July 24, 2024 2:08pm Open wound of lower extremity acute July 31, 2024 9:34am Diastolic heart failure chronic M arch 2024 9:34am Anasarca acute August 21 12:26pm Atrial flutter acute August 21, 2024 12:26pm 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 August 21, 2024 12:26pm Microcytic anemia acute August 212024 12:26pm Paroxysmal atrial fibrillati on with RVR acute August 21, 2024 12:26pm Tachypnea on examination acute August 21, 2024 12:26pm Type 2 diabetes mellitus wit h hyperglycemia acute August 21, 2024 12:26pm Acute exacerbation of CHF (congestive heart failure) chronic August 21, 2024 12:26pm Cardiac LV ejection fraction of 20-34% chronic August 21, 2024 12:26pm Essential hypertension chronic Ap ril 2024 12:26pm Hyperlipidemia chronic August 21, 2024 12:26pm Thoracoabdominal aortic aneu rysm (TAAA) chronic August 21, 2024 12:26pm Bradycardia inactive August 21 12:26pm Heart failure with reduced ejection fraction inactive August 21 12:26pm Atrial fibrillation chronic September 06, 2024 8:35am Diastolic heart failure chronic A pril 2024 8:35am Dyspnea on exertion chronic September 06, 2024 8:35am Essential hypertension chronic Ap ril 2024 8:35am Lower extremity edema chronic Apr il 2024 8:35am Ulcer of right lower extremity chron ic September 06, 2024 8:35am Atrial fibrillation chronic September 272024 8:53am Congestive heart failure chronic September 27, 2024 8:53am Essential hypertension chronic Ma y 2024 8:53am Insomnia chronic September 27, 2024 8:53am Ulcer of left lower extremit y with fat layer exposed chronic September 27, 2024 8:53am [facility] Work Phone: 1(872) 647-901006-30-2023 Discharge summary Author Jimmy Clark [facility] November 18, 2022 11:51am Note Date/Time November 18, 2022 11:5 1am [facility] Medical Records Department [address] [place] [address] Discharge Summary 11/18/22 1145 MR#: [id number] Acct: [id number] Name: CLARIBEL ALLISON Rep #:[id number] : 1955 67 From: Jimmy Clark DO PCP: Dr. Abdulaziz Ackerman MD Status:A DM [facility] Location: [place] [address] Providers Date of Admission: 11/17/22 Date of Discharge: 11/18/22 Primary Care Physician: Dr. Abdulaziz Ackerman MD Consultations 11/17/22 09:45 Consult: Cardiology Routine Consulting Provider: Jamal Munoz Reason for Consult: nstemi EMERGENT Consult: No Notified: Yes Date Notified: 11/17/22 Time Notified: 09:22 Method of Notification: Verbal Method of Consult:: In-Person 11/18/22 08:37 Consult: Vascular Surgery Routine Consulting Provider: Tucker Dodson Reason for Consult: aneurysm EMERGENT Consult: No Notified: Yes Date Notified: 11/18/22 Time Notified: 08:37 Method of Notification: Verbal Reason For Visit: NSTEMI, ATRIAL FLUTTER Diagnosis Discharge Diagnosis (1) Non-ST elevation WA (NSTEMI): Status: Acute Code(s): I21.4 - Non-ST elevation (NSTEMI) myocardial infarction (2) Atrial flutter: Status: Acute Code(s): I48.92 - Unspecified atrial flutter Qualifiers: Atrial flutter type: typical Qualified Code(s): I48.3 - Typical atrial flutter (3) Essential hypertension: Status: Chronic Code(s): I10 - Essential (primary) hypertension (4) Abdominal aneurysm: Status: Acute Code(s): I71.40 - Abdominal aortic aneurysm, without rupture, unspecified Plan 1. [id number] will be placed in observation status on MedSurg 3, I will add a beta-latisha and a statin as well as a baby aspirin to her regimen, she will be seen in consultation by cardiology, her Eliquis will be held, patient will undergo cardiac catheterization tomorrow #2 unstable angina-again patient's medications will be adjusted, she will be monitored #3 left knee pain secondary to severe arthritis-I have elected to give the patient a one-time dose of prednisone, she will need follow-up as an outpatient regarding her knee issues. #4 chronic use of 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 due to past history of PE-patient's Eliquis willbe held #5 essential hypertension-patient will remain on her outpatient meds #6 hypokalemia-patient will be given potassium orally #7 abdominal aortic aneurysm-patient will follow-up with vascular surgery after discharge #8 mild pulmonary hypertension Total clinical time spent by myself addressing the patient's medical issues, reviewing all of her data, and collaborating with patient's care team: 55 minutes Medications at Discharge Home Medications epinephrine 0.3 mg/0.3 mL injection, auto-injector (EpiPen 2-Abbie) 0.3 mg (0.3 mL) IM Q5-15M PRN anaphylaxis #2 ea 01/03/22 albuterol sulfate 90 mcg/actuation aerosol inhaler 1 - 2 puff inhalation Q4H PRNPRN Sob &/Or Wheezing ##1 01/07/22 apixaban 5 mg tablet 5 mg PO BID 3 months #180 tabs 07/20/22 lisinopril 40 mg tablet 40 mg PO DAILY #90 tabs 07/20/22 furosemide 40 mg tablet 40 mg PO SUSA PRN FLUID 09/28/22 omeprazole 40 mg capsule,delayed release 40 mg PO DAILY PRN GERD 09/28/22 potassium chloride 20 mEq tablet,extended release 20 meq PO DAILY SUPPLEMENT 09/28/22 amlodipine 10 mg tablet 10 mg PO DAILY #0 tabs 11/18/22 atorvastatin 10 mg tablet (Lipitor) 10 mg PO DAILY #30 tabs 11/18/22 Hospital Course Operations None Procedures 2-D Echocardiogram and Cardiac catheterization Summary of Care Provided Minutes Spent on Discharge: 32 Hospital Course: This 67-year-old white female was seen in the emergency room at [facility] with chief complaint of precordial chest pain, work-up in theemergency room included EKG which showed no evidence of acute ischemic changes, patient's cardiac enzymes were elevated, chest x-ray did not show any acute process. Patient was placed in observation status on PCU, she was seen in consultation by cardiology, her Eliquis was held, and she underwent an echocardiogram which showed a normal EF and mild pulmonary hypertension, and there was evidence of an aortic aneurysm. Patient underwent a CT of her abdomenwhich showed a 5.1 cm aortic aneurysm, vascular surgery was consulted for follow-up care as an outpatient. Patient's cardiac enzymes were cycled and theyremained elevated, she had no episodes of chest pain during her hospitalization. Patient underwent a cardiac catheterization which showed mild intraluminal irregularities but no occlusive coronary disease. On 11/18/2022, patient was seen and examined: On examination she appeared in goodhealth and spirits, she does not appear to be in any distress. Vital signs as documented. Skin warm and dry and without overt rashes. Neck without JVD, thyroid appears normal, trachea is midline, neck is supple. Lungs clear, normal air movement was noted. Heart exam notable for regular rhythm, normal sounds andabsence of murmurs, rubs or gallops. Abdomen unremarkable and without evidence of organomegaly, masses, or abdominal aortic enlargement, bowel sounds are present in all 4 quadrants, no abdominal tenderness was noted. Extremities nonedematous, no cyanosis was noted, no clubbing was noted. Neuro: Cranial nerves II through XII are grossly intact, no focal motor deficits were noted, sensation to light touch and pinprick is intact, motor exam 5/5 throughout. Psych: Patient is alert and oriented x3, she does not appear anxious or depressed, she does not appear agitated. Patient appears stable for discharge on 11/18/2022. Weight / BMI Weight Weight: 82.1 kg Body Mass Index (BMI) 31.0 ABG / Lab / Microbiology Data 11/17/22 07:48 11/18/22 05:37 Laboratory: Laboratory Results - last 24 hr 11/17/22 14:37: Troponin I High Sens 193 H* 11/18/22 05:37: Sodium 141, Potassium 2.9 L, Chloride 108 H, Carbon Dioxide 26.0, Anion Gap 7, BUN 16, Creatinine 0.64, Estim Creat Clear Calc 75.68, Est GFR (MDRD) Af Amer 121, Est GFR (MDRD) Non-Af 100, BUN/Creatinine Ratio 25.2 H, Glucose 92, Calcium 8.7 Radiography Diagnostic Testing: Radiology Impression Echocardiogram 11/17/22 09:25 Interpretation Summary Normal LV size. Mild concentric left ventricular hypertrophy. Mild to moderate (1-2+) tricuspid valve insufficiency. Mildly dilated aortic root. Dilated descending aorta. The estimated ejection fraction is 55 %. Left ventricular systolic function is normal. Stage 2 diastolic dysfunction. Ordering Physician: Jimmy Clark Referring Physician: Abdulaziz Ackerman Performed By: Sona Kirk, EULA Abdomen/Pelvis CTA 11/17/22 11:54 IMPRESSION: Tortuosity and dilatation at the junction of the thoracic and proximal abdominal aorta. Infrarenal abdominal aorta shows evidence of atherosclerotic changes. Bilateral adrenal hyperplasia and possible small bilateral adrenal adenomas. Sigmoid diverticulosis. 2 cm x 1.3 cm enhancing mass in the mid medial portion of the right kidney as described. A neoplastic process should be ruled out. Electronically Signed: Ariel Tate MD at 13:04 EDT , D/C Instructions Discharge Diet: No restrictions Return to work on: 11/23/22 Weight Bearing Status: Full weight bearing Meaningful Use Info Meaningful Use Diagnoses (Choose all that apply): AMI AMI/Post PCI/Angioplasty Aspirin given w/in 24hrs of arrival?: Yes ASA at discharge?: No Reason ASA not ordered:: Drug Interaction Antiplatelet Therapy at Discharge:: No Reason Antiplatelet Therapy not ordered:: Patient on Eliquis, not needed Statins at discharge?: Yes Bhavin/ARB at discharge?: Yes Beta Latisha at discharge?: No Reason Beta Latisha not ordered:: Allergy (Not indicated) Done w/ Acute WA measure.: Yes Documented LVEF (%): 55 Discharge Plan Admission Admit Date/Time: 11/17/22 08:49 Primary Reason for Your Visit: Type II non-STEMI Attending Provider: Jimmy Clark Primary Care Provider: Abdulaziz Ackerman Consulting Providers: Jamal Munoz; Tucker Dodson Discharge Orders/Prescriptions Prescriptions: New amlodipine 10 mg Tablet 10 mg PO DAILY Qty: 0 0RF atorvastatin [Lipitor] 10 mg tablet 10 mg PO DAILY Qty: 30 0RF Continued epinephrine [EpiPen 2-Abbie] 0.3 mg/0.3 mL auto-injector 0.3 mg IM Q5-15M PRN (Reason: anaphylaxis) Qty: 2 2RF Rx Instructions: do not exceed 3 doses per episode furosemide 40 mg tablet 40 mg PO SUSA PRN (Reason: FLUID) Patient Comments: pt only takes on weekends omeprazole 40 mg capsule,delayed release(DR/EC) 40 mg PO DAILY PRN (Reason: GERD) Patient Comments: PT STATES ONLY TAKES NEEDED Rx Instructions: Take 30 minutes before breakfast potassium chloride 20 mEq tablet extended release 20 meq PO DAILY albuterol sulfate 90 mcg/actuation HFA aerosol inhaler 1 - 2 puff INHALATION Q4H PRN PRN (Reason: Sob &/Or Wheezing) Qty: 1 1RF apixaban 5 mg tablet 5 mg PO BID 90 Days Qty: 180 1RF lisinopril 40 mg tablet 40 mg PO DAILY Qty: 90 2RF Referrals / Follow Up: Abdulaziz Ackerman MD [Primary Care Provider] - Within 2 Weeks Tucker Dodson MD [Med Staff - Active Staff] - See Referral Note (as directed) Disposition Disposition (needs filled in before D/C Order can be placed): Home, Self Care Charges/Coding Visit Charges Inpatient E&M: 53980 Disch Hosp >30min 11/18/22 1151 <Electronically signed by Jimmy Clark DO> Cosigner Signature (if applicable): CC: Dr. Abdulaziz Ackerman MD; Dr. Jimmy Clark DO~ Signed [facility] Work Phone: 1(140) 721-243406-30-2023 Discharge summary Author Jimmy Clark [facility] November 18, 2022 11:45am Note Date/Time November 18, 2022 11:3 5am [facility] Medical Records Department [address] [place] [address] Instructions for Home/Discharge Instructions 11/18/22 1132 MR#: [id number] Acct: [id number] Name: CLARIBEL ALLISON Rep #:[id number] : 1955 67 From: Jimmy Clark DO PCP: Dr. Abdulaziz Ackerman MD Status:A DM NERISSA Discharge Instructions Diet Discharge Diet: No restrictions Activity Discharge Activity: Return to Normal Activity Return to work on:: 11/23/22 Weight Bearing Status: Full weight bearing Follow Up Care Test Results: Test results from this visit will be discussed in further detail at your follow- up appointment, if applicable. Discharge Plan Admission Admit Date/Time: 11/17/22 08:49 Primary Reason for Your Visit: Type II non-STEMI Attending Provider: Jimmy Clark Primary Care Provider: Abdulaziz Ackerman Consulting Providers: Jamal Munoz; Tucker Dodson Discharge Orders/Prescriptions Prescriptions: New amlodipine 10 mg Tablet 10 mg PO DAILY Qty: 0 0RF atorvastatin [Lipitor] 10 mg tablet 10 mg PO DAILY Qty: 30 0RF Continued epinephrine [EpiPen 2-Abbie] 0.3 mg/0.3 mL auto-injector 0.3 mg IM Q5-15M PRN (Reason: anaphylaxis) Qty: 2 2RF Rx Instructions: do not exceed 3 doses per episode furosemide 40 mg tablet 40 mg PO SUSA PRN (Reason: FLUID) Patient Comments: pt only takes on weekends omeprazole 40 mg capsule,delayed release(DR/EC) 40 mg PO DAILY PRN (Reason: GERD) Patient Comments: PT STATES ONLY TAKES NEEDED Rx Instructions: Take 30 minutes before breakfast potassium chloride 20 mEq tablet extended release 20 meq PO DAILY albuterol sulfate 90 mcg/actuation HFA aerosol inhaler 1 - 2 puff INHALATION Q4H PRN PRN (Reason: Sob &/Or Wheezing) Qty: 1 1RF apixaban 5 mg tablet 5 mg PO BID 90 Days Qty: 180 1RF lisinopril 40 mg tablet 40 mg PO DAILY Qty: 90 2RF Referrals / Follow Up: Abdulaziz Ackerman MD [Primary Care Provider] - Within 2 Weeks Tucker Dodson MD [Med Staff - Active Staff] - See Referral Note (as directed) Disposition Disposition (needs filled in before D/C Order can be placed): Home, Self Care 11/18/22 1145<Electronically signed by Jimmy Clark DO>Jimmy Clark DO CC: Dr. Jamal Munoz MD; Dr. Abdulaziz Ackerman MD; Dr. Tucker Dodson MD ~ Signed [facility] Work Phone: 1(431) 235-451006-30-2023 Consult note Author Jamal Munoz [facility] November 18, 2022 9:53am Note Date/Time November 17, 2022 6:31 pm [facility] Medical Records Department [address] [place] [address] Consultation - Cardiology 11/17/22 1826 MR#: [id number] Acct: [id number] Name: CLARIBEL ALLISON Rep #:[id number] : 1955 67 From: Jamal Munoz MD PCP: Dr. Abdulaziz Ackerman MD Status:A DM NERISSA Location: [place] [address] Assessment & Plan Assessment/Plan (1) Non-ST elevation WA (NSTEMI): PLAN: Patient has a non-ST elevation myocardial infarction. We will proceed with a left heart catheterization in a.m. (2) Atrial flutter: PLAN: Patient appears to have had paroxysms of atrial fibrillation flutter. We will continue with 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 after procedure is performed. (3) Essential hypertension: PLAN: Patient has a history of hypertension and the plan is to continue the lisinopril at 40 mg a day. (4) Abdominal aneurysm: PLAN: Patient has tortuosity and dilatation of the abdominal aorta measuring 5.1cm. We will review with the radiologist as to whether this is just ectasia or whether this is aneurysmal. Thank you for allowing me to participate in the care of your patient. Please don't hesitate to call if any issues arise. HPI Consult Data Date of Consult: 11/18/22 HPI Narrative HPI Narrative: CLARIBEL ALLISON, is a 67 F who presents to the emergency room with chest discomfort. She describes this as a squeezing sensation in the middle of her chest. She does have a previous history of pulmonary embolism. She was seen inthe emergency room because she was having more of these episodes which seem to be worse with exertion and going away with rest. She does not have a previous history of coronary artery disease. She had been on Eliquis in the past. In the emergency room she was also noted to be having paroxysms of atrial fibrillation. She was admitted to the hospital was noted to have mild troponin elevation and echocardiogram was performed which demonstrated segmental wall motion abnormalities noted. She was also incidentally noted to have an abdominal aortic aneurysm. 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 Elevated random blood glucose level Elevated troponin (08/09/20) Essential hypertension Flu vaccine need GERD (gastroesophageal reflux disease) Heart failure with preserved ejection fraction History of pulmonary embolus (PE) (08/10/20) Hyperlipidemia Insomnia Melanoma Menopausal disorder Nicotine dependence Non-ST elevation WA (NSTEMI) Obesity Osteoarthritis of left knee Preoperative clearance Shortness of breath Tobacco use Wound of left lower extremity Home Medications epinephrine 0.3 mg/0.3 mL injection, auto-injector (EpiPen 2-Abbie) 0.3 mg (0.3 mL) IM Q5-15M PRN anaphylaxis #2 ea 01/03/22 [Rx Last Taken Unknown] albuterol sulfate 90 mcg/actuation aerosol inhaler 1 - 2 puff inhalation Q4H PRNPRN Sob &/Or Wheezing ##1 01/07/22 [Rx Last Taken 11/12/22] apixaban 5 mg tablet 5 mg PO BID 3 months #180 tabs 07/20/22 [Rx Last Taken 11/17/22] lisinopril 40 mg tablet 40 mg PO DAILY #90 tabs 07/20/22 [Rx Last Taken 11/16/22] furosemide 40 mg tablet 40 mg PO SUSA PRN FLUID 09/28/22 [History Last Taken 11/15/22] omeprazole 40 mg capsule,delayed release 40 mg PO DAILY PRN GERD 09/28/22 [History Last Taken 10/27/22] potassium chloride 20 mEq tablet,extended release 20 meq PO DAILY SUPPLEMENT 09/28/22 [History Last Taken 11/16/22] Allergy/AdvReac Type Severity Reaction Status Date / Time latex Allergy Mild rash Verified 11/17/22 07:36 trazodone Allergy Mild Tingling Verified 11/17/22 07:36 propoxyphene Allergy Hives Verified 11/17/22 07:36 [From Darvocet-N] acetaminophen AdvReac Intermediate Nausea/Vom/ Verified 11/17/22 11:38 [From Darvocet-N] Diarrhea Family History Other Anxiety Arthritis Depression Hypertension Thyroid disorder Surgical History H/O elbow surgery H/O tubal ligation History of cholecystectomy Social History housing: house Smoking Status: Current every day smoker tobacco type: cigarettes alcohol intake: never substance use type: does not use what type of physical activity do you participate in: walking frequency: 5-6 times per week ROS Constitutional Constitutional: Denies anorexia, change in weight, fever(s), night sweats or weakness Eyes Eyes: Denies blurry vision, change in vision, discharge from eye(s) or eye pain Cardiovascular Cardiovascular: Reports chest pain; Denies claudication, edema, palpitations, paroxysmal nocturnal dyspnea, rapid heart rate or syncope Respiratory/Chest Respiratory/Chest: Reports chest tightness, dyspnea on exertion and hemoptysis; Denies cough, shortness of breath at rest or shortness of breath with exertion Gastrointestinal Gastrointestinal: Denies abdominal pain, constipation, diarrhea, hematemesis, hematochezia, melena, nausea or vomiting Genitourinary Genitourinary: Denies dysuria, hematuria, urinary frequency, urinary hesitancy, urinary incontinence or urinary urgency Musculoskeletal Musculoskeletal: Reports arthralgias and other Details: Patient complains of right knee pain which is chronic in nature ; Denies back pain, joint pain, joint stiffness, joint swelling, myalgias or neck pain Neurologic Neurologic: Denies abnormal gait, abnormal speech, dizziness, focal weakness, headache(s), loss of vision, numbness, other visual disturbances, paresthesias, syncope or tingling Psychiatric Psychiatric: Denies anxiety, cognitive impairment, depression, irritability, mood swings or suicidal ideation Endocrine Endocrinology: Denies change in body appearance, cold intolerance, excessive sweating, heat intolerance, polydipsia or polyuria Hematologic/Lymphatic Hematologic/Lymphatic: Denies none, anemia, easy bleeding, easy bruising or lymphadenopathy Allergic/Immunologic Allergic/Immunologic: Denies rhinitis, urticaria, eczemia or asthma Risk Stratification Risk Stratification Applicable: Yes Age >/= 65: Yes >/= 3 CAD Risk Factors (HTN, HLD, DM, family hx of CAD, or current smoker): Yes Aspirin Use in the Past 7 Days: No Severe Angina (>/= episodes in 24 hours): Yes EKG ST Changes >/= 0.5mm: No Positive Cardiac Marker: Yes CONCHA Risk Stratification Score: 4 CONCHA % Risk: 20% Risk Objective Data Vital Signs: Vital Signs Temp Pulse Resp BP Pulse Ox O2 Del Method 98.1 F 65 14 133/42 H 98 Room Air 11/17/22 16:16 11/17/22 16:16 11/17/22 16:16 11/17/22 16:16 11/17/22 16:16 11/17/22 16:30 Oxygen Delivery Method Room Air Weight: 180 lb 15.992 oz Body Mass Index (BMI) 31.0 Intake & Output: Intake and Output for Last 24 Hours 11/15/22 11/16/22 11/17/22 23:59 23:59 23:59 Intake Total 1130 / 1130 Balance 1130 / 1130 Lab / Micro Data 11/17/22 07:48 11/18/22 05:37 Labs: Laboratory Results - last 24 hr 11/17/22 07:48: WBC 8.6, RBC 4.75, Hgb 12.9, Hct 41.0, MCV 86.3, MCH 27.2, MCHC 31.5 L, RDW Std Deviation 52.2 H, RDW Coeff of Ele 16.5 H, Plt Count 259, MPV 10.3, Immature Gran % (Auto) 0.600, Neut % (Auto) 67.7, Lymph % (Auto) 22.9, Swift % (Auto) 6.3, Eos % (Auto) 1.6, Baso % (Auto) 0.9, Absolute Neuts (auto) 5.8, Absolute Lymphs (auto) 1.97, Nucleated RBC % 0, Sodium 139, Potassium 3.2 L, Chloride 109 H, Carbon Dioxide 22.0, Anion Gap 8, BUN 16, Creatinine 0.84, Estim Creat Clear Calc 57.66, Est GFR (MDRD) Af Amer 87, Est GFR (MDRD) Non-Af 72, BUN/Creatinine Ratio 19.0, Glucose 140 H, Calcium 8.8, Magnesium 2.1, Troponin I High Sens 198 H*, TSH 1.03 11/17/22 10:16: Troponin I High Sens 206 H*, Triglycerides 152, Cholesterol 187,LDL Cholesterol 118, VLDL Cholesterol 30, HDL Cholesterol 39 L 11/17/22 14:37: Troponin I High Sens 193 H* Cardiology Labs/Tests 11/17/22 07:48: WBC 8.6, RBC 4.75, Hgb 12.9, Hct 41.0, MCV 86.3, MCH 27.2, MCHC 31.5 L, Plt Count 259, MPV 10.3, Immature Gran % (Auto) 0.600, Neut % (Auto) 67.7, Lymph % (Auto) 22.9, Swift % (Auto) 6.3, Eos % (Auto) 1.6, Baso % (Auto) 0.9, Absolute Neuts (auto) 5.8, Nucleated RBC % 0, Sodium 139, Potassium 3.2 L, Chloride 109 H, Carbon Dioxide 22.0, Anion Gap 8, BUN 16, Creatinine 0.84, Est GFR (MDRD) Af Amer 87, Est GFR (MDRD) Non-Af 72, BUN/Creatinine Ratio 19.0, Glucose 140 H, Calcium 8.8, Magnesium 2.1 11/17/22 10:16: Triglycerides 152, Cholesterol 187, LDL Cholesterol 118, VLDL Cholesterol 30, HDL Cholesterol 39 L Rhythm: EKG: ECHO: Stress Test: Cardiac Cath: PCI: CT Surgery: Holter monitor: EPS: PPM: CXR: Chest CT Scan: Radiography Diagnostic Testing: Radiology Impression Chest X-Ray 11/17/22 07:39 IMPRESSION: Borderline cardiomegaly. The lungs are clear. Electronically Signed: Ariel Tate MD at 8:34 EDT , Knee X-Ray 11/17/22 07:39 IMPRESSION: Degenerative arthrosis. Stable examination. Tiny joint effusion. Electronically Signed: Ariel Tate MD at 8:33 EDT , Echocardiogram 11/17/22 09:25 Interpretation Summary Normal LV size. Mild concentric left ventricular hypertrophy. Mild to moderate (1-2+) tricuspid valve insufficiency. Mildly dilated aortic root. Dilated descending aorta. The estimated ejection fraction is 55 %. Left ventricular systolic function is normal. Stage 2 diastolic dysfunction. Ordering Physician: Jimmy Clark Referring Physician: Abdulaziz Ackerman Performed By: Sona Kirk RDCS Abdomen/Pelvis CTA 11/17/22 11:54 IMPRESSION: Tortuosity and dilatation at the junction of the thoracic and proximal abdominal aorta. Infrarenal abdominal aorta shows evidence of atherosclerotic changes. Bilateral adrenal hyperplasia and possible small bilateral adrenal adenomas. Sigmoid diverticulosis. 2 cm x 1.3 cm enhancing mass in the mid medial portion of the right kidney as described. A neoplastic process should be ruled out. Electronically Signed: Ariel Tate MD at 13:04 EDT , 11/18/22 0953 <Electronically signed by Jamal Munoz MD> Cosigner Signature (if applicable): CC: Dr. Jamal Munoz MD; Dr. Abdulaziz Ackerman MD; Dr. Tucker Dodson MD~ Signed [facility] Work Phone: [phone]) 938-177006-30-2023 Progress note Author Jamal Munoz [facility] November 18, 2022 9:53am Note Date/Time November 18, 2022 9:53 am [facility] Medical Records Department [address] [place] [address] Progress Note - Cardiology 11/18/22951 MR#: [id number] Acct: [id number] Name: CLARIBEL ALLISON Rep #:[id number] : 1955 67 From: Jamal Munoz MD PCP: Dr. Abdulaziz Ackerman MD Status:A DM NERISSA Location: [place] [address] Subjective Subjective Patient seen and eval noted. Underwent cardiac catheterization today. Objective Data Vital Signs: Vital Signs Temp Pulse Resp BP Pulse Ox O2 Del Method 97 F L 67 16 151/80 H 98 Room Air 11/18/22 08:32 11/18/22 08:35 11/18/22 08:32 11/18/22 08:35 11/18/22 08:32 11/18/22 08:49 Oxygen Delivery Method Room Air Weight: 180 lb 15.992 oz Body Mass Index (BMI) 31.0 Intake & Output: Intake and Output for Last 24 Hours 11/16/22 11/17/22 11/18/22 23:59 23:59 23:59 Intake Total 1370 / 1370 0.25 / 0.25 Balance 1370 / 1370 0.25 / 0.25 Lab / Micro Data 11/17/22 07:48 06/30/23 05:37 Labs: Laboratory Results - last 24 hr 11/17/22 10:16: Troponin I High Sens 206 H*, Triglycerides 152, Cholesterol 187,LDL Cholesterol 118, VLDL Cholesterol 30, HDL Cholesterol 39 L 11/17/22 14:37: Troponin I High Sens 193 H* 11/18/22 05:37: Sodium 141, Potassium 2.9 L, Chloride 108 H, Carbon Dioxide 26.0, Anion Gap 7, BUN 16, Creatinine 0.64, Estim Creat Clear Calc 75.68, Est GFR (MDRD) Af Amer 121, Est GFR (MDRD) Non-Af 100, BUN/Creatinine Ratio 25.2 H, Glucose 92, Calcium 8.7 Cardiology Labs/Tests 11/17/22 10:16: Triglycerides 152, Cholesterol 187, LDL Cholesterol 118, VLDL Cholesterol 30, HDL Cholesterol 39 L 11/18/22 05:37: Sodium 141, Potassium 2.9 L, Chloride 108 H, Carbon Dioxide 26.0, Anion Gap 7, BUN 16, Creatinine 0.64, Est GFR (MDRD) Af Amer 121, Est GFR (MDRD) Non-Af 100, BUN/Creatinine Ratio 25.2 H, Glucose 92, Calcium 8.7 Rhythm: EKG: ECHO: Stress Test: Cardiac Cath: PCI: CT Surgery: Holter monitor: EPS: PPM: CXR: Chest CT Scan: Radiography Diagnostic Testing: Radiology Impression Echocardiogram 11/17/22 09:25 Interpretation Summary Normal LV size. Mild concentric left ventricular hypertrophy. Mild to moderate (1-2+) tricuspid valve insufficiency. Mildly dilated aortic root. Dilated descending aorta. The estimated ejection fraction is 55 %. Left ventricular systolic function is normal. Stage 2 diastolic dysfunction. Ordering Physician: Jimmy Clark Referring Physician: Abdulaziz Ackerman Performed By: Sona Kirk RDCS Abdomen/Pelvis CTA 06/29/23 11:54 IMPRESSION: Tortuosity and dilatation at the junction of the thoracic and proximal abdominal aorta. Infrarenal abdominal aorta shows evidence of atherosclerotic changes. Bilateral adrenal hyperplasia and possible small bilateral adrenal adenomas. Sigmoid diverticulosis. 2 cm x 1.3 cm enhancing mass in the mid medial portion of the right kidney as described. A neoplastic process should be ruled out. Electronically Signed: Ariel Tate MD at 13:04 EDT , Physical Exam Const alert, oriented x3, no apparent distress, average body habitus and healthy appearing General Appearance: cooperative, well kempt and well developed Orientation / Consciousness: awake, oriented to person, oriented to place and oriented to time HEENT normocephalic, head/scalp atraumatic, hearing grossly normal bilaterally and moist oral mucous membranes Eyes PERRL, EOMs intact bilaterally and conjunctivae normal Neck supple, no JVD, thyroid normal and no carotid bruits General: trachea midline Resp normal respiratory effort, no retractions, no use of accessory muscles and clearto auscultation bilaterally Auscultation: Negative for rales, rhonchi or wheezes Cardio regular rate, regular rhythm, S1 normal heart sound, S2 normal heart sound, no murmurs, no rub and no gallops GI normal to inspection, nondistended, normoactive bowel sounds, soft to palpation,non-tender and non-distended Extremity normal to inspection and no clubbing, cyanosis or edema Extremity Narrative: There is no sign of effusion on examination of the left knee, left knee appears slightly larger than the right knee Skin no rashes or lesions noted General Skin Exam: no breakdown Neuro oriented x3, CN's II-XII intact bilaterally, moves all extremities, no focal motor deficits and no sensory deficits noted Sensorium / Orientation: awake, alert, oriented to person, oriented to place andoriented to time Speech: speech normal Psych affect normal Assessment & Plan Assessment/Plan (1) Non-ST elevation WA (NSTEMI): PLAN: Patient has a non-ST elevation myocardial infarction. Cardiac catheterization today demonstrated nonobstructive coronary anatomy with preserved ejection fraction. (2) Atrial flutter: QUALIFIERS: Atrial flutter type: typical Qualified Code(s): I48.3- Typical atrial flutter PLAN: Patient appears to have had paroxysms of atrial fibrillation flutter. We will continue with 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 after procedure is performed. (3) Essential hypertension: PLAN: Patient has a history of hypertension and the plan is to continue the lisinopril at 40 mg a day. (4) Abdominal aneurysm: PLAN: Patient has tortuosity and dilatation of the abdominal aorta measuring 5.1cm. We will review with the radiologist as to whether this is just ectasia or whether this is aneurysmal. Thank you for allowing me to participate in the care of your patient. Please don't hesitate to call if any issues arise. 11/18/22 0953 <Electronically signed by Jamal Munoz MD> Cosigner Signature (if applicable): CC: ~ Signed [facility] Work Phone: 1(565) 608-451906-29-2023 Discharge summary Author Maury Flores [facility] November 17, 2022 3:25pm Note Date/Time November 17, 2022 7:44 am [facility] Medical Records Department [address] [place] [address] Emergency Department Summary 11/17/22 MR#: [id number] Acct: [id number] Name: CLARIBEL ALLISON Rep #:[id number] : 1955 67 From: Maury Bradford PCP: Dr. Abdulaziz Ackerman MD Status:A DM NERISSA Location: [place] [address] HPI History of Present Illness Chief Complaint: Chest Pain Informant: patient Narrative Narrative: Presents intermittent pain in her chest for last 3 days. Reports dyspnea. Symptoms do worsen with exertion improved with rest. She states 3 days ago her pain was a lot more significant. Denies cough. Denies radicular pain. She also states she has been having ongoing left knee pain. She works on her feet. She has had x-rays years ago and her knee states osteoarthritis. This morning pain worse both in the left knee and her chest lasting 15 minutes and sweating therefore she came to the emergency department. Prediabetic, hypertension, hyperlipidemia tobacco history. Denies family history of MIs at young age. Patient history of PE 2021, she states she still been on Eliquis since then twice a day with no missed doses. She states that was her first clot. Denies nausea or vomiting. Chest pain-free currently. Stress test years ago no history of heart cath no history of WA. 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 Elevated random blood glucose level Elevated troponin (08/09/20) Essential hypertension Flu vaccine need GERD (gastroesophageal reflux disease) Heart failure with preserved ejection fraction History of pulmonary embolus (PE) (08/10/20) Hyperlipidemia Insomnia Melanoma Menopausal disorder Nicotine dependence Non-ST elevation WA (NSTEMI) Obesity Osteoarthritis of left knee Preoperative clearance Shortness of breath Tobacco use Wound of left lower extremity Home Medications epinephrine 0.3 mg/0.3 mL injection, auto-injector (EpiPen 2-Abbie) 0.3 mg (0.3 mL) IM Q5-15M PRN anaphylaxis #2 ea 01/03/22 [Rx Last Taken Unknown] albuterol sulfate 90 mcg/actuation aerosol inhaler 1 - 2 puff inhalation Q4H PRNPRN Sob &/Or Wheezing ##1 01/07/22 [Rx Last Taken 11/12/22] apixaban 5 mg tablet 5 mg PO BID 3 months #180 tabs 07/20/22 [Rx Last Taken 11/17/22] lisinopril 40 mg tablet 40 mg PO DAILY #90 tabs 07/20/22 [Rx Last Taken 11/16/22] furosemide 40 mg tablet 40 mg PO SUSA PRN FLUID 09/28/22 [History Last Taken 11/15/22] omeprazole 40 mg capsule,delayed release 40 mg PO DAILY PRN GERD 09/28/22 [History Last Taken 10/27/22] potassium chloride 20 mEq tablet,extended release 20 meq PO DAILY SUPPLEMENT 09/28/22 [History Last Taken 11/16/22] Allergy/AdvReac Type Severity Reaction Status Date / Time latex Allergy Mild rash Verified 11/17/22 07:36 trazodone Allergy Mild Tingling Verified 11/17/22 07:36 propoxyphene Allergy Hives Verified 11/17/22 07:36 [From Darvocet-N] acetaminophen AdvReac Intermediate Nausea/Vom/ Verified 11/17/22 11:38 [From Darvocet-N] Diarrhea Family History Other Anxiety Arthritis Depression Hypertension Thyroid disorder Surgical History H/O elbow surgery H/O tubal ligation History of cholecystectomy Social History (Updated 11/17/22 @ 10:24 by Samina Garcia) housing: house Smoking Status: Current every day smoker tobacco type: cigarettes alcohol intake: never substance use type: does not use what type of physical activity do you participate in: walking frequency: 5-6 times per week ROS ROS ED Constitutional Constitutional ED: Denies chills, fever(s) or sweats Eyes Eyes: Denies change in vision ENT ENT ED: Denies dysphagia or sore throat Cardiovascular Cardiovascular: Reports chest pain; Denies leg edema, palpitations or racing heartbeat Respiratory/Chest Respiratory/Chest: Reports dyspnea; Denies cough or dyspnea on exertion Gastrointestinal Gastrointestinal: Denies abdominal pain, diarrhea, nausea or vomiting Genitourinary Genitourinary ED: Denies dysuria, hematuria or urinary frequency Musculoskeletal Musculoskeletal: Reports extremity pain and other Details: Left knee pain ; Denies back pain or neck pain Integumentary Denies rash or wounds Neurologic Neurologic: Denies headache(s), paresthesias or weakness EXAM Physical Exam Const Vital Signs: 11/17/22 07:31 11/17/22 07:43 11/17/22 08:43 Temperature 97.6 F L Temperature Source Temporal Pulse Rate 74 72 Respiratory Rate 20 H 21 H Blood Pressure 149/71 H 149/100 H Blood Pressure Mean 97 116 Pulse Ox 97 95 Oxygen Delivery Method Room Air Room Air Room Air Positive well nourished and well developed General Appearance ED: well developed and NAD HEENT Reports moist mucous membranes normocephalic and atraumatic Eyes PERRL, EOMs intact bilaterally and conjunctivae normal General Eye ED: Yes normal appearance of both eyes Neck no lymphadenopathy and supple General: Negative for tenderness Chest Wall Chest: Negative for tenderness Resp normal respiratory effort and normal air movement Effort and Inspection: symmetric chest movement; Negative for respiratory distress Cardio regular rate, regular rhythm and no murmurs Peripheral Pulses: pulses 2+ throughout GI normal to inspection, nondistended, normoactive bowel sounds and non-tender Palpation: Negative for guarding or rebound tenderness present Back/Spine no CVA tenderness and no thoracic nor lumbar tenderness Extremity Extremity Narrative: Left lower extremity: No hip pain. Knee without swelling. Knee extensor mechanism intact. Positive Orta's with valgus stress. Pulses intact distally. General Extremety ED: Negative for edema or tenderness General Extremity: Negative for edema Neuro oriented x3 and no sensory deficits noted Sensorium / Orientation: awake and alert Skin no rashes or lesions noted and no wounds Heart Score History: Highly Suspicious ECG: Normal Age: >/= 65 years Risk Factors: >/= 3 Risk Factors or History of CAD Troponin: >1 - <3 Normal Limit Score: 7 MDM MDM MDM Narrative Medical decision making narrative: Interventions / MDM: Differential diagnosis: Chest pain, ACS, left knee arthritis Diagnosis considered but do not suspect: Pulmonary embolism however patient's chronic 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s with no missed doses. No clinical pneumonia. My EKG interpretation: Patient with runs of atrial flutter 2-1 and 3-1 to sinus rhythm on EKG. Old EKG from September 2021 with a sinus rhythm. Imaging independently reviewed and interpreted by myself: 2 view chest x-ray: Noacute process 4 view left knee: Degenerative changes worsening medial aspect. External documents reviewed: Echocardiogram from July 2020, stage II diastolic dysfunction with ejection fraction 60%. Also noted there is an EKG from her hospital visit she had a run of A-fib RVR documented EKG. This was thought to be secondary to the PE. Test considered but not ordered:N/A ED course: Patient presenting with transient chest pain. No active pain on evaluation. EKG notes 2-1 and 3-1 atrial flutter to sinus rhythm. On the teletypesetter monitor intermittent similar findings. She does not have any symptoms of palpitations or lightheaded symptoms. Heart rate at times will go up to 124. She denies any cardiac dysrhythmia history. She is currently on Eliquis. Cardiac work-up with added TSH and magnesium sent to the lab. Left knee x-ray also obtained. [id number] score is a 5. Troponin returns at 198 creatinine 0.84 potassium 3.2. Hemoglobin 12.9. Platelets 259. Two-view chest x-ray interpreted by myself shows no acute process. Left knee significant osteoarthritis more in the medial aspect. She was covered with aspirin, oral potassium replacement. She took her Eliquis thismorning. 0830: I spoke with child specialist Dr. Munoz, updated on patient's history and findings and concerns. Patient on Eliquis plans for hold Eliquis today and catheterization in the morning. Will speak with hospitalist service for admission. I spoke with Dr. Clark for admission to PCU. Re-evaluation: stable Disposition discussed with patient/family/significant other: Patient Case discussed with consulting clinician: Cardiology, Dr. Munoz, hospitalist This note was generated with FireScope dictation software. It may contain incorrectwords, spelling, and punctuation that were not noted in checking the note beforesigning. Lab Data Attestation: I reviewed the patient's lab results. Labs: Laboratory Results - last 24 hr 11/17/22 07:48 WBC 8.6 RBC 4.75 Hgb 12.9 Hct 41.0 MCV 86.3 MCH 27.2 MCHC 31.5 L RDW Std Deviation 52.2 H RDW Coeff of Ele 16.5 H Plt Count 259 MPV 10.3 Immature Gran % (Auto) 0.600 Neut % (Auto) 67.7 Lymph % (Auto) 22.9 Swift % (Auto) 6.3 Eos % (Auto) 1.6 Baso % (Auto) 0.9 Absolute Neuts (auto) 5.8 Absolute Lymphs (auto) 1.97 Nucleated RBC % 0 Sodium 139 Potassium 3.2 L Chloride 109 H Carbon Dioxide 22.0 Anion Gap 8 BUN 16 Creatinine 0.84 Estim Creat Clear Calc 57.66 Est GFR (MDRD) Af Amer 87 Est GFR (MDRD) Non-Af 72 BUN/Creatinine Ratio 19.0 Glucose 140 H Calcium 8.8 Magnesium 2.1 Troponin I High Sens 198 H* TSH 1.03 Radiography Diagnostic Testing: Clinical Impression(s) from Imaging Studies Chest X-Ray 11/17/22 07:39 IMPRESSION: Borderline cardiomegaly. The lungs are clear. Electronically Signed: Ariel Tate MD at 8:34 EDT , Knee X-Ray 11/17/22 07:39 IMPRESSION: Degenerative arthrosis. Stable examination. Tiny joint effusion. 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 Call [facility] ([phone]) or report to the closest Emergency Room. Call 911 if necessary. 11/17/22 1525 <Electronically signed by Maury Bradford> Cosigner Signature (if applicable): CC: Dr. Abdulaziz Ackerman MD ~ Signed [facility] Work Phone: [phone] 920-706206-29-2023 History and physical note Author Jimmy Clark [facility] November 17, 2022 9:14am Note Date/Time November 17, 2022 9:10 am [facility] Medical Records Department [address] [place] [address] H&P Exam - Hospitalist 11/17/22 0900 MR#: [id number] Acct: [id number] Name: CLARIBEL ALLISON Rep #:[id number] : 1955 67 From: Jimmy Clark DO PCP: Dr. Abdulaziz Ackerman MD Status:R EG ER Location: ED HPI - General General Date of Admission: 11/17/22 Date of Service: 11/17/22 Chief Complaint: Chest pain off and on x2 days HPI Narrative CLARIBEL ALLISON, is a 67 F who presents to the ER at [facility] forevaluation of chest discomfort which she describes as a squeezing sensation in the middle of her chest, its been occurring off and on for the past 2 to 3 days,seems to be worse on exertion, she had an episode this morning while she was at work. Patient does not have a history of coronary artery disease, she is on 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 for a past history of PE. Patient also complains of left knee pain and stiffness. Patient denies any radiation of the chest discomfort into her neck or down her arm, she states she feels slightly sweaty during the episodes. The episodes last a few minutes and then they subside. Work-up in the emergency room revealed her troponin to be elevated, EKG showed anormal sinus rhythm with periods of atrial flutter-patient denies any history ofcardiac arrhythmias in the past. Patient's chest x-ray showed cardiomegaly, cardiology was contacted and advised admitting the patient and holding her Eliquis, her last dose of Eliquis was today. Patient is not currently having anychest pain at the time my examination. Patient is a smoker, she does take hypertensive medications but denies taking cholesterol medications. Patient's left knee x-ray showed severe degenerative changes in the knee in the medial aspect. Patient will be placed in observation status on PCU for non-STEMI and unstable angina. [facility] Medical History (Updated 11/17/22 @ 09:[address] Jimmy Clark DO) Acute hypoxemic respiratory failure (08/09/20) Acute low back pain Anxiety and depression Arthritis Borderline type 2 diabetes mellitus Change in skin mole Chronic pain of left knee Current use of chcf 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 Elevated random blood glucose level Elevated troponin (08/09/20) Essential hypertension Flu vaccine need GERD (gastroesophageal reflux disease) Heart failure with preserved ejection fraction History of pulmonary embolus (PE) (08/10/20) Hyperlipidemia Insomnia Melanoma Menopausal disorder Nicotine dependence Non-ST elevation WA (NSTEMI) Obesity Osteoarthritis of left knee Preoperative clearance Shortness of breath Tobacco use Wound of left lower extremity Home Medications epinephrine 0.3 mg/0.3 mL injection, auto-injector (EpiPen 2-Abbie) 0.3 mg (0.3 mL) IM Q5-15M PRN anaphylaxis #2 ea 01/03/22 [Rx Last Taken Unknown] albuterol sulfate 90 mcg/actuation aerosol inhaler 1 - 2 puff inhalation Q4H PRNPRN Sob &/Or Wheezing ##1 01/07/22 [Rx Last Taken Unknown] cyclobenzaprine 10 mg tablet 5 - 10 mg (0.5 - 1 x 10 mg) PO TID PRN muscle spasm#30 tabs 03/23/22 [Rx Last Taken Unknown] amlodipine 10 mg tablet 10 mg PO DAILY #90 tabs 07/20/22 [Rx Last Taken Unknown] apixaban 5 mg tablet 5 mg PO BID 3 months #180 tabs 07/20/22 [Rx Last Taken Unknown] lisinopril 40 mg tablet 40 mg PO DAILY #90 tabs 07/20/22 [Rx Last Taken Unknown] clotrimazole-betamethasone 1 %-0.05 % topical cream 1 applic topical BID 2 weeks#45 grams 09/28/22 [Rx Last Taken Unknown] furosemide 40 mg tablet 40 mg PO .MONDAY AND Monday09/28/22 [History Last Taken Unknown] omeprazole 40 mg capsule,delayed release 40 mg PO DAILY 09/28/22 [History Last Taken Unknown] potassium chloride 20 mEq tablet,extended release 20 meq PO BID 09/28/22 [History Last Taken Unknown] prednisone 10 mg tablet See Rx Instructions PO QDAY #30 tabs 09/28/22 [Rx Last Taken Unknown] Allergy/AdvReac Type Severity Reaction Status Date / Time latex Allergy Mild rash Verified 11/17/22 07:36 trazodone Allergy Mild Tingling Verified 11/17/22 07:36 acetaminophen Allergy Hives Verified 11/17/22 07:36 [From Darvocet-N] propoxyphene Allergy Hives Verified 11/17/22 07:36 [From Darvocet-N] Family History Other Anxiety Arthritis Depression Hypertension Thyroid disorder Surgical History H/O elbow surgery H/O tubal ligation History of cholecystectomy Social History Smoking Status: Current every day smoker tobacco type: cigarettes alcohol intake: never substance use type: does not use what type of physical activity do you participate in: walking frequency: 5-6 times per week ROS Constitutional Constitutional: Denies anorexia, change in weight, fever(s), night sweats or weakness Eyes Eyes: Denies blurry vision, change in vision, discharge from eye(s) or eye pain Cardiovascular Cardiovascular: Reports chest pain; Denies claudication, edema, palpitations, paroxysmal nocturnal dyspnea, rapid heart rate or syncope Respiratory/Chest Respiratory/Chest: Denies cough, hemoptysis, shortness of breath at rest or shortness of breath with exertion Gastrointestinal Gastrointestinal: Denies abdominal pain, constipation, diarrhea, hematemesis, hematochezia, melena, nausea or vomiting Genitourinary Genitourinary: Denies dysuria, hematuria, urinary frequency, urinary hesitancy, urinary incontinence or urinary urgency Musculoskeletal Musculoskeletal: Reports arthralgias and other Details: Patient complains of right knee pain which is chronic in nature ; Denies back pain, joint pain, joint stiffness, joint swelling, myalgias or neck pain Neurologic Neurologic: Denies abnormal gait, abnormal speech, dizziness, focal weakness, headache(s), loss of vision, numbness, other visual disturbances, paresthesias, syncope or tingling Psychiatric Psychiatric: Denies anxiety, cognitive impairment, depression, irritability, mood swings or suicidal ideation Endocrine Endocrinology: Denies change in body appearance, cold intolerance, excessive sweating, heat intolerance, polydipsia or polyuria Hematologic/Lymphatic Hematologic/Lymphatic: Denies none, anemia, easy bleeding, easy bruising or lymphadenopathy Allergic/Immunologic Allergic/Immunologic: Denies rhinitis, urticaria, eczemia or asthma Vital Signs Vital Signs Vital Signs: 11/17/22 07:31 11/17/22 07:43 11/17/22 08:43 Temperature 97.6 F L Temperature Source Temporal Pulse Rate 74 72 Respiratory Rate 20 H 21 H Blood Pressure 149/71 H 149/100 H Blood Pressure Mean 97 116 Pulse Ox 97 95 Oxygen Delivery Method Room Air Room Air Room Air Weight Weight: 80.4 kg Body Mass Index (BMI) 30.4 Physical Exam Const alert, oriented x3, no apparent distress, average body habitus and healthy appearing General Appearance: cooperative, well kempt and well developed Orientation / Consciousness: awake, oriented to person, oriented to place and oriented to time HEENT normocephalic, head/scalp atraumatic, hearing grossly normal bilaterally and moist oral mucous membranes Eyes PERRL, EOMs intact bilaterally and conjunctivae normal Neck supple, no JVD, thyroid normal and no carotid bruits General: trachea midline Resp normal respiratory effort, no retractions, no use of accessory muscles and clearto auscultation bilaterally Auscultation: Negative for rales, rhonchi or wheezes Cardio regular rate, regular rhythm, S1 normal heart sound, S2 normal heart sound, no murmurs, no rub and no gallops GI normal to inspection, nondistended, normoactive bowel sounds, soft to palpation,non-tender and non-distended Extremity normal to inspection and no clubbing, cyanosis or edema Extremity Narrative: There is no sign of effusion on examination of the left knee, left knee appears slightly larger than the right knee Skin no rashes or lesions noted General Skin Exam: no breakdown Neuro oriented x3, CN's II-XII intact bilaterally, moves all extremities, no focal motor deficits and no sensory deficits noted Sensorium / Orientation: awake, alert, oriented to person, oriented to place andoriented to time Speech: speech normal Psych affect normal Results Lab / Micro Data 11/17/22 07:48 11/17/22 07:48 Labs: Laboratory Results - last 24 hr 11/17/22 07:48: WBC 8.6, RBC 4.75, Hgb 12.9, Hct 41.0, MCV 86.3, MCH 27.2, MCHC 31.5 L, RDW Std Deviation 52.2 H, RDW Coeff of Ele 16.5 H, Plt Count 259, MPV 10.3, Immature Gran % (Auto) 0.600, Neut % (Auto) 67.7, Lymph % (Auto) 22.9, Swift % (Auto) 6.3, Eos % (Auto) 1.6, Baso % (Auto) 0.9, Absolute Neuts (auto) 5.8, Absolute Lymphs (auto) 1.97, Nucleated RBC % 0, Sodium 139, Potassium 3.2 L, Chloride 109 H, Carbon Dioxide 22.0, Anion Gap 8, BUN 16, Creatinine 0.84, Estim Creat Clear Calc 57.66, Est GFR (MDRD) Af Amer 87, Est GFR (MDRD) Non-Af 72, BUN/Creatinine Ratio 19.0, Glucose 140 H, Calcium 8.8, Magnesium 2.1, Troponin I High Sens 198 H*, TSH 1.03 Radiology Impression Chest X-Ray 11/17/22 07:39 IMPRESSION: Borderline cardiomegaly. The lungs are clear. Electronically Signed: Ariel Tate MD at 8:34 EDT , Knee X-Ray 11/17/22 07:39 IMPRESSION: Degenerative arthrosis. Stable examination. Tiny joint effusion. Electronically Signed: Ariel Tate MD at 8:33 EDT , Assessment & Plan Assessment/Plan (1) Non-ST elevation WA (NSTEMI): PLAN: Plan 1. [id number] will be placed in observation status on MedSurg 3, I will add a beta-latisha and a statin as well as a baby aspirin to her regimen, she will be seen in consultation by cardiology, her Eliquis will be held, patient will undergo cardiac catheterization tomorrow #2 unstable angina-again patient's medications will be adjusted, she will be monitored #3 left knee pain secondary to severe arthritis-I have elected to give the patient a one-time dose of prednisone, she will need follow-up as an outpatient regarding her knee issues. #4 chronic use of 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 due to past history of PE-patient's Eliquis willbe held #5 essential hypertension-patient will remain on her outpatient meds #6 hypokalemia-patient will be given potassium orally Total clinical time spent by myself addressing the patient's medical issues, reviewing all of her data, and collaborating with patient's care team: 55 minutes Charges/Coding Visit Charges Inpatient E&M: 17271 Init Hosp L2 11/17/22 0914 <Electronically signed by Jimmy Clark DO> Cosigner Signature (if applicable): CC: Dr. Abdulaziz Ackerman MD; Dr. Jimmy Clark DO~ Signed [facility] Work Phone: 1(421) 205-222308-16-2022 Instructions* Patient Instructions* Homa Solis APRN.SONAL - 01/04/2022 1:33 PM EDT Minimizing irritation of the vulva (area around the vagina) Wear white cotton underwear. Avoid synthetic fabrics and tight clothing. Sleep wearing shorts or pajama bottoms without underwear. Shower as soon as possible after exercise. Avoid clothing detergents and soaps with perfumes or dyes. Use warm (not hot) water to wash the vulva and if you use soap use a product designed for sensitive skin (like Dove or Cetaphil). Use Dove for sensitive skin unscented. Do not douche or use creams/powders in the vulvar area unless instructed by your physician. If you must douche, use only plain warm water. Make sure the vulva is dry before dressing by patting dry with a towel. Avoid vigorous rubbing withthe towel. You may want to use the blow dryer (on the cool setting only!) on the vulva. The most important way to let your body heal is by avoiding scratching. Many patients find it difficult to avoid scratching at night when they are most aware of the itchiness. You can try taking Benadryl just before bedtime. Some women find it helpful to wear cotton gloves to bed to avoid scratching at night. documented in [facility]16-[facility] History of Present illness Narrative* Homa Solis APRN.CNP - 01/04/2022 1:03 PM EDT Claribel Allison is a 66 year old female who presents for problem visit recurrent yeast infections. HPI: Second yeast infection in past 6 months. Prior to this she had not had a yeast infection for years. Treated with Diflucan at [facility] and symptoms resolved. Current episode began one week ago- vaginal burning, intermittent itching. Has not noticed discharge because she has applied Desitin,Vaseline. Sometimes sits in front of fan due to so much burning. Used Dial. Uses Gain laundry detergent and dryer sheets. Does not use any feminine douches, washes or deodorants. Has not been sexually active x [address] Ackerman at [facility]. Does not have diabetes. OB History No obstetric history on file. 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 Social History Tobacco Use Smoking status: Every Day Packs/day: 0.50 Years: 10.00 Pack years: 5.00 Types: Cigarettes Tobacco comments: 09-20-06 down to 2 cigarettes per day Substance Use Topics Alcohol use: Yes Alcohol/week: 5.0 standard drinks Types: 2 Mixed Drinks per week Drug use: No Current Outpatient Medications Medication Sig potassium chloride 20 mEq TbER Take 1 tablet by mouth once daily. furosemide (LASIX) 40 mg tablet lisinopril (ZESTRIL, PRINIVIL) 40 mg tablet ELIQUIS 5 mg tab(s) Take 5 mg by mouth twice daily. mirtazapine (REMERON) 15 mg tablet No current facility-administered medications for this visit. Allergies As of Date: 01/04/2022 Allergen Noted Reaction DARVOCET A500 [PROPOXYPHENE N-BHAVIN*12/14/2016 Hives LATEX 01/04/2022 Hives Fully Assessed 01/04/2022 REVIEW OF SYSTEMS Allergies and current medication updated:Yes EXAM: BP 152/76 Wt 179 lb 6.4 oz (81.4kg) GENERAL: pleasant, female in no apparent distress CHEST: Normal inspiratory effort ABDOMEN: soft, non-tender, and no masses PELVIC: external genitalia - vulva erythematous and edematous with white exudate, normal Bartholin's glands, urethra, [place]'s glands, no vulvar lesions, no cervical lesions, scant thick white discharge present, normal appearing perineal body and perianal region NEURO: alert and oriented x3,exam grossly non-focal ASSESSMENT/PLAN: 1. Acute vulvitis - ICD9: 616.10, ICD10: N76.2 (primary diagnosis) - Vulvar hygiene instructions. - BACTERIAL VAGINOSIS AMPLIFICATION - AGGIE / TRICHOMONAS AMPLIFICATION - FLUCONAZOLE 150 MG TABLET - CLOTRIMAZOLE-BETAMETHASONE 1 %-0.05 % TOPICAL CREAM 2. Vaginal burning - ICD9: 625.8, ICD10: N94.9 - BACTERIAL VAGINOSIS AMPLIFICATION - AGGIE / TRICHOMONAS AMPLIFICATION - FLUCONAZOLE 150 MG TABLET - CLOTRIMAZOLE-BETAMETHASONE 1 %-0.05 % TOPICAL CREAM 3. Vagina itching - ICD9: 698.1, ICD10: N89.8 - BACTERIAL VAGINOSIS AMPLIFICATION - AGGIE / TRICHOMONAS AMPLIFICATION - FLUCONAZOLE 150 MG TABLET - CLOTRIMAZOLE-BETAMETHASONE 1 %-0.05 % TOPICAL CREAM Follow-up 3-4 weeks. Homa Solis APRN.CNP Medical Decision Making: Problems: Low: Acute, uncomplicated illness or injury Data: Unique test(s) ordered: 2 Risk: Moderate: Drug management Medical Decision Making Level: 3 - Low documented in this encounterUniversity Hospitals [facility]05-19-2022 NoteHNO ID: [id number] Author: WANDY Wheeler Service: Radiology Author Type: Technologist Type: Progress Notes Filed: 10/07/2021 9:10 AM Note Text: RADIOLOGY SERVICE PROGRESS NOTE SERVICE DATE: 10/07/2021 SERVICE TIME: 9:05 AM PATIENT IDENTITY VERIFICATION COMPLETED USING TWO (2) STANDARD IDENTIFIERS: Name and Date of confirmed by patient verbally and Name and Date of confirmed by identification band FALL SCREENING: Has the patient had 2 falls in the last year or 1 fall with injury or currently using an Ambulatory Assistive Device (Walker, Cane, Wheelchair, Crutches, etc.)? No PATIENT GENDER DATA: .female : No ALLERGIES: Reviewed and unchanged MEDICATIONS REVIEWED: Not applicable PATIENT RELEVANT IMPLANT DATA REVIEWED: Not Applicable CREATININE: No results found for: CREAT, EGFROTH, EGFRAA P.O.C.T. RESULTS: N/A October 07, [address] PERFORMED: No IV SITE: NM only - not applicable, oral or physician administered agents given to patient POST EXAM PIV STATUS: Not applicable PROCEDURE TYPE: NM INJECT: melanoma lymphoscintigraphy. 467 microcuries Tc99m SULFUR COLLOID . No other medications given.. ADMINISTRATION TIME: 8:35 PATIENT DISCHARGED TO: Ambulatory patient, left [place] department area. A Diagnostic radioactive procedure has taken place, with no further precautions necessary other than routine body substance precautions. More information regarding radiation safety can be found using this link: [email or web address] SIGNATURE: WANDY Wheeler PATIENT NAME: Claribel Allison DATE: October 07, 2021 TIME: 9:05 AM [id number] History of Present illness Narrative* WANDY Wheeler - 10/07/2021 8:30 AM EDT RADIOLOGY SERVICE PROGRESS NOTE SERVICE DATE: 10/07/2021 SERVICE TIME: 9:05 AM PATIENT IDENTITY VERIFICATION COMPLETED USING TWO (2) STANDARD IDENTIFIERS: Name and Date of confirmed by patient verbally and Name and Date of confirmed by identification band FALL SCREENING: Has the patient had 2 falls in the last year or 1 fall with injury or currently using an Ambulatory Assistive Device (Walker, Cane, Wheelchair, Crutches, etc.)? No PATIENT GENDER DATA: .female : No ALLERGIES: Reviewed and unchanged MEDICATIONS REVIEWED: Not applicable PATIENT RELEVANT IMPLANT DATA REVIEWED: Not Applicable CREATININE: No results found for: CREAT, EGFROTH, EGFRAA P.O.C.T. RESULTS: N/A October 07, [address] PERFORMED: No IV SITE: NM only - not applicable, oral or physician administered agents given to patient POST EXAM PIV STATUS: Not applicable PROCEDURE TYPE: NM INJECT: melanoma lymphoscintigraphy. 467 microcuries Tc99m SULFUR COLLOID . No other medications given.. ADMINISTRATION TIME: 8:35 PATIENT DISCHARGED TO: Ambulatory patient, left [place] department area. A Diagnostic radioactive procedure has taken place, with no further precautions necessary other than routine body substance precautions. More information regarding radiation safety can be found usingthis link: [email or web address] SIGNATURE: WANDY Wheeler PATIENT NAME: Claribel Allison DATE: October 07, 2021 TIME: 9:05 AM PAGER/CONTACT #: documented in this encounterUniversity Hospitals Ge[facility]03-22-2021 Evaluation note* Diagnosis Onset Date Resolution Status Essential hypertension chron ic Heart failure with preserved ejection fraction chronic History of pulmonary embolus (PE) August 10, 2020 chronic Hyperlipidemia chronic Shortness of breath chronic Tobacco use [facility] Work Phone: 1(217) 133-154403-22-2021 Evaluation note* Diagnosis Onset Date Resolution Status Tobacco use chronic Melanoma acute Preoperative clearance acute History of pulmonary embolus (PE) August 10, 2020 [facility] Work Phone: 1(104) 957-562803-22-2021 Evaluation note* Diagnosis Onset Date Resolution Status Melanoma acute Preoperative clearance acute History of pulmonary embolus (PE) August 10, 2020 [facility] Work Phone: 1(354) 366-230903-22-2021 Evaluation note* Diagnosis Onset Date Resolution Status Melanoma acute Preoperative clearance acute History of pulmonary embolus (PE) August 10, 2020 chronic Menopausal disorder acute Anxiety and depression chron ic Essential hypertension chron [facility] Work Phone: 1(737) 938-819403-22-2021 Evaluation note* Diagnosis Onset Date Resolution Status Acute lumbar myofascial strain acute Acute thoracic myofascial strain acute History of pulmonary embolus (PE) August 10, 2020 acute Anxiety and depression chron ic Essential hypertension chron ic Heart failure with preserved ejection fraction chronic Hyperlipidemia chronic Insomnia chronic Shortness of breath chronic Tobacco use [facility] Work Phone: [phone]) 603-762303-22-2021 Evaluation note* Diagnosis Onset Date Resolution Status History of pulmonary embolus (PE) August 10, 2020 acute Anxiety and depression chron ic Essential hypertension chron ic Heart failure with preserved ejection fraction chronic Hyperlipidemia chronic Insomnia chronic Shortness of breath chronic Tobacco use [facility] Work Phone: 1([phone]) 584-542403-22-2021 Evaluation note* Diagnosis Onset Date Resolution Status History of pulmonary embolus (PE) August 10, 2020 acute Anxiety and depression chron ic Essential hypertension chron ic Heart failure with preserved ejection fraction chronic Hyperlipidemia chronic Insomnia chronic Shortness of breath chronic Tobacco use chronic Atrial flutter acute History of pulmonary embolus (PE) August 10, 2020 acute Anxiety and depression chron ic Essential hypertension chron ic Heart failure with preserved ejection fraction chronic Insomnia chronic Osteoarthritis of left knee chronic [facility] Work Phone: Evaluation note* Diagnosis Acute vulvitis- Primary Vaginitis and vulvovaginitis, unspecified Vaginal burning Other specified symptom associated with female genital organs Vagina itching Pruritus of genital organs documented in this encounter [facility]* Diagnosis Onset Date Resolution Status Menopausal disorder acute Anxiety and depression chron ic Essential hypertension chron ic Anxiety and depression chron ic Essential hypertension chron ic Osteoarthritis of left knee chronic Acute low back pain acute Essential hypertension chron ic Muscle spasm noneactive GERD (gastroesophageal reflux disease) acute Anxiety and depression chron ic Essential hypertension chron ic [facility] Work Phone: Evaluation note* Diagnosis Onset Date Resolution Status Acute low back pain acute Essential hypertension chron ic Muscle spasm noneactive GERD (gastroesophageal reflux disease) acute Anxiety and depression chron ic Essential hypertension chron ic Cough noneactive [facility] Work Phone: Evaluation note* Diagnosis Onset Date Resolution Status Cough noneactive Borderline type 2 diabetes mellitus chronic Essential hypertension chron ic GERD (gastroesophageal reflux disease) chronic Hyperlipidemia chronic [facility] Work Phone: Evaluation note* Diagnosis Onset Date Resolution Status Borderline type 2 diabetes mellitus chronic Essential hypertension chron ic GERD (gastroesophageal reflux disease) chronic Hyperlipidemia chronic Osteoarthritis of left knee chronic Tinea pedis noneactive Acute hypokalemia acute Angina of effort acute Atrial flutter acute Chest pain acute 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 Non-ST elevation WA (NSTEMI) acute History of pulmonary embolus (PE) August 10, 2020 chronic Tobacco use chronic [facility] Work Phone: Evaluation note* Diagnosis Onset Date Resolution Status Borderline type 2 diabetes mellitus chronic Essential hypertension chron ic GERD (gastroesophageal reflux disease) chronic Hyperlipidemia chronic Osteoarthritis of left knee chronic Tinea pedis noneactive Abdominal aneurysm acute Acute hypokalemia acute Angina of effort acute Atrial flutter acute Chest pain acute Current use of chcf 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 acute Non-ST elevation WA (NSTEMI) acute Essential hypertension chron ic History of pulmonary embolus (PE) August 10, 2020 chronic Tobacco use chronic [facility] Work Phone: Evaluation note* Diagnosis Onset Date Resolution Status Abdominal aneurysm acute Current use of chcf 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 acute Essential hypertension chron ic Thoracoabdominal aortic aneurysm (TAAA) chronic Tobacco use chronic Thoracoabdominal aortic aneurysm (TAAA) chronic Abdominal aneurysm acute Debility, unspecified acute Return to work evaluation ac dennis Right renal mass acute Borderline type 2 diabetes mellitus chronic Osteoarthritis of left knee chronic Shortness of breath chronic Acute lumbar myofascial strain acute Acute thoracic myofascial strain acute [facility] Work Phone: Evaluation note* Diagnosis Onset Date Resolution Status Acute lumbar myofascial strain acute Acute thoracic myofascial strain acute [facility] Work Phone: History and physical note Author Jimmy Clark [facility] November 17, 2022 9:14am Note Date/Time November 17, 2022 9:10 am [facility] Medical Records Department [address] [place] [id number] H&P Exam - Hospitalist 11/17/22 0900 MR#: [id number] Acct: [id number] Name: CLARIBEL ALLISON Rep #:[id number] : 1955 67 From: Jimmy Clark DO PCP: Dr. Abdulaziz Ackerman MD Status:R EG ER Location: ED HPI - General General Date of Admission: 11/17/22 Date of Service: 11/17/22 Chief Complaint: Chest pain off and on x2 days HPI Narrative CLARIBEL ALLISON, is a 67 F who presents to the ER at [facility] forevaluation of chest discomfort which she describes as a squeezing sensation in the middle of her chest, its been occurring off and on for the past 2 to 3 days,seems to be worse on exertion, she had an episode this morning while she was at work. Patient does not have a history of coronary artery disease, she is on 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 for a past history of PE. Patient also complains of left knee pain and stiffness. Patient denies any radiation of the chest discomfort into her neck or down her arm, she states she feels slightly sweaty during the episodes. The episodes last a few minutes and then they subside. Work-up in the emergency room revealed her troponin to be elevated, EKG showed anormal sinus rhythm with periods of atrial flutter-patient denies any history ofcardiac arrhythmias in the past. Patient's chest x-ray showed cardiomegaly, cardiology was contacted and advised admitting the patient and holding her Eliquis, her last dose of Eliquis was today. Patient is not currently having anychest pain at the time my examination. Patient is a smoker, she does take hypertensive medications but denies taking cholesterol medications. Patient's left knee x-ray showed severe degenerative changes in the knee in the medial aspect. Patient will be placed in observation status on PCU for non-STEMI and unstable angina. [facility] Medical History (Updated 11/17/22 @ 09:[address] Jimmy Clark, DO) Acute hypoxemic respiratory failure (08/09/20) Acute low back pain Anxiety and depression Arthritis Borderline type 2 diabetes mellitus Change in skin mole Chronic pain of left knee Current use of chcf 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 Elevated random blood glucose level Elevated troponin (08/09/20) Essential hypertension Flu vaccine need GERD (gastroesophageal reflux disease) Heart failure with preserved ejection fraction History of pulmonary embolus (PE) (08/10/20) Hyperlipidemia Insomnia Melanoma Menopausal disorder Nicotine dependence Non-ST elevation WA (NSTEMI) Obesity Osteoarthritis of left knee Preoperative clearance Shortness of breath Tobacco use Wound of left lower extremity Home Medications epinephrine 0.3 mg/0.3 mL injection, auto-injector (EpiPen 2-Abbie) 0.3 mg (0.3 mL) IM Q5-15M PRN anaphylaxis #2 ea 01/03/22 [Rx Last Taken Unknown] albuterol sulfate 90 mcg/actuation aerosol inhaler 1 - 2 puff inhalation Q4H PRNPRN Sob &/Or Wheezing ##1 01/07/22 [Rx Last Taken Unknown] cyclobenzaprine 10 mg tablet 5 - 10 mg (0.5 - 1 x 10 mg) PO TID PRN muscle spasm#30 tabs 03/23/22 [Rx Last Taken Unknown] amlodipine 10 mg tablet 10 mg PO DAILY #90 tabs 07/20/22 [Rx Last Taken Unknown] apixaban 5 mg tablet 5 mg PO BID 3 months #180 tabs 07/20/22 [Rx Last Taken Unknown] lisinopril 40 mg tablet 40 mg PO DAILY #90 tabs 07/20/22 [Rx Last Taken Unknown] clotrimazole-betamethasone 1 %-0.05 % topical cream 1 applic topical BID 2 weeks#45 grams 09/28/22 [Rx Last Taken Unknown] furosemide 40 mg tablet 40 mg PO .MONDAY AND Monday09/28/22 [History Last Taken Unknown] omeprazole 40 mg capsule,delayed release 40 mg PO DAILY 09/28/22 [History Last Taken Unknown] potassium chloride 20 mEq tablet,extended release 20 meq PO BID 09/28/22 [History Last Taken Unknown] prednisone 10 mg tablet See Rx Instructions PO QDAY #30 tabs 09/28/22 [Rx Last Taken Unknown] Allergy/AdvReac Type Severity Reaction Status Date / Time latex Allergy Mild rash Verified 11/17/22 07:36 trazodone Allergy Mild Tingling Verified 11/17/22 07:36 acetaminophen Allergy Hives Verified 11/17/22 07:36 [From Darvocet-N] propoxyphene Allergy Hives Verified 11/17/22 07:36 [From Darvocet-N] Family History Other Anxiety Arthritis Depression Hypertension Thyroid disorder Surgical History H/O elbow surgery H/O tubal ligation History of cholecystectomy Social History Smoking Status: Current every day smoker tobacco type: cigarettes alcohol intake: never substance use type: does not use what type of physical activity do you participate in: walking frequency: 5-6 times per week ROS Constitutional Constitutional: Denies anorexia, change in weight, fever(s), night sweats or weakness Eyes Eyes: Denies blurry vision, change in vision, discharge from eye(s) or eye pain Cardiovascular Cardiovascular: Reports chest pain; Denies claudication, edema, palpitations, paroxysmal nocturnal dyspnea, rapid heart rate or syncope Respiratory/Chest Respiratory/Chest: Denies cough, hemoptysis, shortness of breath at rest or shortness of breath with exertion Gastrointestinal Gastrointestinal: Denies abdominal pain, constipation, diarrhea, hematemesis, hematochezia, melena, nausea or vomiting Genitourinary Genitourinary: Denies dysuria, hematuria, urinary frequency, urinary hesitancy, urinary incontinence or urinary urgency Musculoskeletal Musculoskeletal: Reports arthralgias and other Details: Patient complains of right knee pain which is chronic in nature ; Denies back pain, joint pain, joint stiffness, joint swelling, myalgias or neck pain Neurologic Neurologic: Denies abnormal gait, abnormal speech, dizziness, focal weakness, headache(s), loss of vision, numbness, other visual disturbances, paresthesias, syncope or tingling Psychiatric Psychiatric: Denies anxiety, cognitive impairment, depression, irritability, mood swings or suicidal ideation Endocrine Endocrinology: Denies change in body appearance, cold intolerance, excessive sweating, heat intolerance, polydipsia or polyuria Hematologic/Lymphatic Hematologic/Lymphatic: Denies none, anemia, easy bleeding, easy bruising or lymphadenopathy Allergic/Immunologic Allergic/Immunologic: Denies rhinitis, urticaria, eczemia or asthma Vital Signs Vital Signs Vital Signs: 11/17/22 07:31 11/17/22 07:43 11/17/22 08:43 Temperature 97.6 F L Temperature Source Temporal Pulse Rate 74 72 Respiratory Rate 20 H 21 H Blood Pressure 149/71 H 149/100 H Blood Pressure Mean 97 116 Pulse Ox 97 95 Oxygen Delivery Method Room Air Room Air Room Air Weight Weight: 80.4 kg Body Mass Index (BMI) 30.4 Physical Exam Const alert, oriented x3, no apparent distress, average body habitus and healthy appearing General Appearance: cooperative, well kempt and well developed Orientation / Consciousness: awake, oriented to person, oriented to place and oriented to time HEENT normocephalic, head/scalp atraumatic, hearing grossly normal bilaterally and moist oral mucous membranes Eyes PERRL, EOMs intact bilaterally and conjunctivae normal Neck supple, no JVD, thyroid normal and no carotid bruits General: trachea midline Resp normal respiratory effort, no retractions, no use of accessory muscles and clearto auscultation bilaterally Auscultation: Negative for rales, rhonchi or wheezes Cardio regular rate, regular rhythm, S1 normal heart sound, S2 normal heart sound, no murmurs, no rub and no gallops GI normal to inspection, nondistended, normoactive bowel sounds, soft to palpation,non-tender and non-distended Extremity normal to inspection and no clubbing, cyanosis or edema Extremity Narrative: There is no sign of effusion on examination of the left knee, left knee appears slightly larger than the right knee Skin no rashes or lesions noted General Skin Exam: no breakdown Neuro oriented x3, CN's II-XII intact bilaterally, moves all extremities, no focal motor deficits and no sensory deficits noted Sensorium / Orientation: awake, alert, oriented to person, oriented to place andoriented to time Speech: speech normal Psych affect normal Results Lab / Micro Data 11/17/22 07:48 11/17/22 07:48 Labs: Laboratory Results - last 24 hr 11/17/22 07:48: WBC 8.6, RBC 4.75, Hgb 12.9, Hct 41.0, MCV 86.3, MCH 27.2, MCHC 31.5 L, RDW Std Deviation 52.2 H, RDW Coeff of Ele 16.5 H, Plt Count 259, MPV 10.3, Immature Gran % (Auto) 0.600, Neut % (Auto) 67.7, Lymph % (Auto) 22.9, Swift % (Auto) 6.3, Eos % (Auto) 1.6, Baso % (Auto) 0.9, Absolute Neuts (auto) 5.8, Absolute Lymphs (auto) 1.97, Nucleated RBC % 0, Sodium 139, Potassium 3.2 L, Chloride 109 H, Carbon Dioxide 22.0, Anion Gap 8, BUN 16, Creatinine 0.84, Estim Creat Clear Calc 57.66, Est GFR (MDRD) Af Amer 87, Est GFR (MDRD) Non-Af 72, BUN/Creatinine Ratio 19.0, Glucose 140 H, Calcium 8.8, Magnesium 2.1, Troponin I High Sens 198 H*, TSH 1.03 Radiology Impression Chest X-Ray 11/17/22 07:39 IMPRESSION: Borderline cardiomegaly. The lungs are clear. Electronically Signed: Ariel Tate MD at 8:34 EDT , Knee X-Ray 11/17/22 07:39 IMPRESSION: Degenerative arthrosis. Stable examination. Tiny joint effusion. Electronically Signed: Ariel Tate MD at 8:33 EDT , Assessment & Plan Assessment/Plan (1) Non-ST elevation WA (NSTEMI): PLAN: Plan 1. [id number] will be placed in observation status on MedSurg 3, I will add a beta-latisha and a statin as well as a baby aspirin to her regimen, she will be seen in consultation by cardiology, her Eliquis will be held, patient will undergo cardiac catheterization tomorrow #2 unstable angina-again patient's medications will be adjusted, she will be monitored #3 left knee pain secondary to severe arthritis-I have elected to give the patient a one-time dose of prednisone, she will need follow-up as an outpatient regarding her knee issues. #4 chronic use of 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 due to past history of PE-patient's Eliquis willbe held #5 essential hypertension-patient will remain on her outpatient meds #6 hypokalemia-patient will be given potassium orally Total clinical time spent by myself addressing the patient's medical issues, reviewing all of her data, and collaborating with patient's care team: 55 minutes Charges/Coding Visit Charges Inpatient E&M: 42334 Init Hosp L2 11/17/22 0914 <Electronically signed by Jimmy Clark DO> Cosigner Signature (if applicable): CC: Dr. Abdulaziz Ackerman MD; Dr. Jimmy Clark DO~ Signed [facility] Work Phone: History and physical note Author Iglesia Benson [facility] Note Date/Time August 21, 2024 1:22 pm [facility] Medical Records Department [address] [place] [address] H&P Exam - Hospitalist 08/21/24 1238 MR#: [id number] Acct: [id number] Name: CLARIBEL ALLISON Rep #:[id number] : 1955 69 From: Iglesia Flynn PCP: Dr. Abdulaziz Ackerman MD Status:R EG ER Location: ED HPI - General General Date of Admission: 08/21/24 Date of Service: 08/21/24 Chief Complaint: Shortness of breath progressively worsening for 3 months. Dyspnea at rest, orthopnea and weight gain HPI Narrative CLARIBEL ALLISON, is a 69 F with multiple comorbidities came to ED with extreme shortness of breath, dyspnea at rest, orthopnea, sleeping in the recliner for past 3 months along with lower extremity edema mild abdominal swelling. She stated she gained about 30 pounds in the last 3 months. She has wheezing and congestion but denies any chest pain pressure or tightness. She still smokes cigarettes sometimes although she had failed attempt of quitting in the past. On warfarin for A-fib. In ED, patient was found to have A-fib with RVR 139 beats minute. Chest x-ray individually reviewed and shows pulmonary congestion's, central involvement and cardiomegaly. [facility] Medical History Ulcer of right lower extremity Lower extremity edema Dyspnea on exertion Diastolic heart failure Acute lumbar myofascial strain Acute thoracic myofascial strain Back pain Debility, unspecified Return to work evaluation Right renal mass Angina of effort Acute hypokalemia Chest pain Non-ST elevation WA (NSTEMI) Atrial flutter Borderline type 2 diabetes mellitus GERD (gastroesophageal reflux disease) Acute low back pain Elevated random blood glucose level Anxiety and depression Menopausal disorder Melanoma Preoperative clearance Flu vaccine need Current use of chcf 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 Obesity Elevated troponin (08/09/20) Hyperlipidemia Nicotine dependence History of pulmonary embolus (PE) (08/10/20) Essential hypertension Wound of left lower extremity Insomnia Change in skin mole Heart failure with preserved ejection fraction Shortness of breath Osteoarthritis of left knee Chronic pain of left knee Tobacco use Arthritis Acute hypoxemic respiratory failure (08/09/20) Home Medications ?Medication ?Instructions ?Recorded ?Last Taken ?Type atorvastatin 10 mg tablet (Lipitor) 10 mg PO DAILY #90 tabs 09/20/23 Unknown Rx baclofen 10 mg tablet 10 mg PO BID PRN muscle spas m #60 02/23/24 Unknown Rx tabs furosemide 40 mg tablet 40 mg PO QAM FLUID #90 tabs 07/24/24 Unknown Rx amlodipine 10 mg tablet 10 mg PO DAILY #90 tabs 11/13 Unknown Rx lisinopril 40 mg tablet 40 mg PO DAILY #90 tabs 11/13 Unknown Rx potassium chloride 20 mEq 20 meq PO DAILY SUPPLEMENT # 30 tabs 07/25/24 Unknown Rx tablet,extended release warfarin 4 mg tablet 4 mg PO QDAY #60 tabs Unknown Rx cephalexin 500 mg capsule 500 mg PO Q8H #30 caps 07/31 Unknown Rx Allergy/AdvReac Type Severity Reaction Status Date / Time latex Allergy Mild rash Verified 08/21/24 11:08 trazodone Allergy Mild Tingling Verified 08/21/24 11:08 coconut Allergy Unknown PT UNABLE Verified 08/21/24 11:09 TO RESPOND-NEEDS F/U Fish Containing Products Allergy Unknown PT UNABLE Verified 08/21/24 11:09 TO RESPOND-NEEDS F/U propoxyphene (From Allergy Hives Verified 08/21/24 11:08 Darvocet-N) acetaminophen (From AdvReac Intermediate Nausea/Vom/ Verified 08/21/24 11:08 Darvocet-N) Diarrhea Family History Other Anxiety Arthritis Depression Hypertension Thyroid disorder Surgical History H/O tubal ligation History of cholecystectomy H/O elbow surgery Social History housing: house Smoking Status: Former smoker alcohol intake: never substance use type: does not use what type of physical activity do you participate in: walking frequency: 5-6 times per week ROS ROS Narrative Constitutional: Reports fatigue and weakness. No fever. HEENT: Reports systems reviewed and no addt'l complaints, except as documented Respiratory/Chest: As described in HPI. Extreme shortness of breath/orthopnea/dyspnea at rest. Cannot walk more than 10 feet without breathless/stopping CVS: Occasional chest congestion. Gastrointestinal: Denies coffee ground emesis, hematemesis or vomiting Genitourinary: Denies burning urination or new urinary tract symptoms Musculoskeletal: Denies acute joint pain or limited range of motion. No acute injury Neurologic: Denies seizure-like symptoms. skin: Tinea right leg superficial erosions from scratching Endocrinology: Reports systems reviewed and no addt'l complaints, except as documented Hematologic/Lymphatic: Reports systems reviewed and no addt'l complaints, exceptas documented Rest 14 ROS are negative except as mentioned in HPI Vital Signs Vital Signs Vital Signs: 08/21/24 11:10 08/21/24 11:12 08/21/24 11:14 Temperature 97 F L 97.7 F L Temperature Source Temporal Temporal Pulse Rate 138 H 128 H Respiratory Rate 23 H 27 H Respiratory Effort Short of Breath Labored Blood Pressure 177/117 H 177/117 H Blood Pressure Mean 137 137 Pulse Ox 95 97 Oxygen Delivery Method Room Air Room Air 08/21/24 12:08 Temperature Temperature Source Pulse Rate 126 H Respiratory Rate 24 H Respiratory Effort Blood Pressure 136/111 H Blood Pressure Mean 119 Pulse Ox 97 Oxygen Delivery Method Room Air Weight Weight: 221 lb 1.978 oz Body Mass Index (BMI) 36.8 Physical Exam Narrative General: Alert, Oriented x3, Cooperative HEENT: Atraumatic, PERRLA, EOMI, Normocephalic Oral: Oral mucosa dry. No Gingival or Mucosal Lesions/ Ulcerations Neck: Supple, bilateral JVD, Negative Carotid Bruits Chest wall/Lungs: Air entry diminished in all lung henderson. Bilateral expiratorywheezing and fine crackles. Cardiovascular: Irregular rhythm, A-fib RVR, No M/G/R Abdomen: Bowel Sounds Present, Soft, Non Tender, abdominal wall swelling : No dysuria. No renal angle tenderness. No suprapubic tenderness. Extremities: Bilateral 3-4+ pitting, thigh edema, Capillary Refill Less than 3 Seconds Skin: Tiny right lower leg erosion/superficial ulcer Musculoskeletal: No Tenderness to Palpation of Joints or Extremities. ROM restricted due to swelling. Neurological: Cranial nerves II-XII grossly intact, DTR 2+/4. No acute focal neurological deficit. Psych/Mental Status: Flat affect. In extreme distress and anxiety.. Results Lab / Micro Data 08/21/24 11:35 08/21/24 11:35 Labs: Laboratory Results - last 24 hr 08/21/24 11:35: WBC 7.9, RBC 4.85, Hgb 9.8 L, Hct 34.9 L, MCV 72.0 L, MCH 20.2 L, MCHC 28.1 L, RDW Std Deviation 49.1 H, RDW Coeff of Ele 19.6 H, Plt Count 189,MPV 9.2, Immature Gran % (Auto) 0.400, Neut % (Auto) 77.3 H, Lymph % (Auto) 15.3L, Swift % (Auto) 5.2, Eos % (Auto) 1.0, Baso % (Auto) 0.8, Absolute Neuts (auto)6.1, Absolute Lymphs (auto) 1.20, Nucleated RBC % 0, PT Cancelled, INR Cancelled, Sodium 139, Potassium 3.9, Chloride 105, Carbon Dioxide 21.3, Anion Gap 12, BUN 19, Creatinine 0.87, Estim Creat Clear Calc 73.62, Est GFR (MDRD) Non-Af 73, BUN/Creatinine Ratio 21.7 H, Glucose 166 H, Calcium 8.6, Total Bilirubin 0.84, AST 38 H, ALT 27, Alkaline Phosphatase 84, Troponin T High Sens 36 H, NT pro BNP II 3787 H, Total Protein 6.5, Albumin 3.6, Globulin 2.9, Albumin/Globulin Ratio 1.2 Rhythm Strip Rhythm Strip: A-fib Rate: 141 Imaging Radiology Impression Chest X-Ray 08/21/24 11:32 IMPRESSION: Cardiomegaly with mild congestion. Reading Location: [facility] Assessment & Plan Assessment/Plan (1) Acute exacerbation of CHF (congestive heart failure): (2) Paroxysmal atrial fibrillation with RVR: PLAN: Plan 69-year-old female admitted with 3 months of progressive worsening of shortness of breath, dyspnea at rest, orthopnea, anasarca and chest x-ray findings suggestive of heart failure exacerbation 1. Subacute debility/dyspnea at rest due to acute on chronic HFpEF: Patient is being admitted in PCU. Chest x-ray newly reviewed and shows pulmonary congestion/edema. 60 mg IV Lasix given in ER physician and then started on furosemide drip 10 mg/h. Heart failure core measures including intake and output, fluid restriction less than 1800 mL, daily weight monitoring, kidney andelectrolytes monitoring. 2D echo ordered. Nitroglycerin ointment ordered for preload reduction 2. A-fib RVR and history of chronic PE.: Patient is still tachycardic. Heart rate 133 permanent. Metoprolol 5 mg IV given and then oral 25 mg twice daily. A-fib RVR mainly due to adrenergic response from heart failure. PT/INR ordered. On warfarin 4 mg daily continued. Tachycardia expected to get better with diuresis. 3. CAD/non-STEMI: Patient was last admitted in October 2022 for non-STEMI. At that time diagnostic cardiac cath showed EF 60%, normal LV wall motion and systolic function. No significant obstructive coronary vessels found. 4. Chronic left knee degenerative arthritis: PT and OT ordered. Pain can 5. Essential hypertension: Blood pressure is high in triage. Is getting better. Patient already on furosemide drip and metoprolol. Titrate according to blood pressure. 6. Chronic thoracoabdominal aortic aneurysm: Last seen in vascular surgery clinic in November 2022. CTA imaging at that time showed 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 largest in the mid/distal descending thoracic aorta. 7. DVT prophylaxis, high risk with history of chronic PE: On warfarin. PT/INR pending. Titrate the dose according to INR. Living will/advanced directive/end of life care: Patient does not have living will or advanced directive or designated power of commercial attorney for health. His sister is next to kin. After discussion of benefits/risks procedures involved with full code, DNR CC arrest and DNR CC, the patient opted for full code. Patient does want artificial life support including intubation, tube feed, ventilator and/chest compression, central venous catheter, vasopressor and DC shock if needed Total time spent in [id number] encounter in discussion of advanced directive 17 minutes. Echo 11/08/2022 Interpretation Summary Normal LV size. Mild concentric left ventricular hypertrophy. Mild to moderate (1-2+) tricuspid valve insufficiency. Mildly dilated aortic root. Dilated descending aorta. The estimated ejection fraction is 55 %. Left ventricular systolic function is normal. Stage 2 diastolic dysfunction. Laboratory Results 08/21/24 11:35: WBC 7.9, RBC 4.85, Hgb 9.8 L, Hct 34.9 L, MCV 72.0 L, MCH 20.2 L, MCHC 28.1 L, RDW Std Deviation 49.1 H, RDW Coeff of Ele 19.6 H, Plt Count 189,MPV 9.2, Immature Gran % (Auto) 0.400, Neut % (Auto) 77.3 H, Lymph % (Auto) 15.3L, Swift % (Auto) 5.2, Eos % (Auto) 1.0, Baso % (Auto) 0.8, Absolute Neuts (auto)6.1, Absolute Lymphs (auto) 1.20, Nucleated RBC % 0, PT Cancelled, INR Cancelled, Sodium 139, Potassium 3.9, Chloride 105, Carbon Dioxide 21.3, Anion Gap 12, BUN19, Creatinine 0.87, Estim Creat Clear Calc 73.62, Est GFR (MDRD) Non-Af 73, BUN/Creatinine Ratio 21.7 H, Glucose 166 H, Calcium 8.6, Total Bilirubin 0.84, AST 38 H, ALT 27, Alkaline Phosphatase 84, Troponin T High Sens 36 H, NT pro BNP II 3787 H, Total Protein 6.5, Albumin 3.6, Globulin 2.9, Albumin/Globulin Ratio 1.2 Clinical Impression(s) from Imaging Studies Chest X-Ray 08/21/24 11:32 IMPRESSION: Cardiomegaly with mild congestion. Reading Location: [facility] Charges/Coding Visit Charges Inpatient E&M: 04213 Init Hosp L3 Procedures Hospitalists Procedures: 36184 Advncd Care Plan 30 Min 08/21/24 1322 <Electronically signed by Iglesia Benson MD> Cosigner Signature (if applicable): CC: Dr. Abdulaziz Ackerman MD; Dr. Iglesia Benson MD~ Signed [facility] Work Phone: [facility]: [facility] Work Phone: Hospital Discharge instructionsAmbulatory Orders* Phase II, Outpatient Cardiac Rehab Location: None Selected [facility] Work Phone: Hospital Discharge instructionsAmbulatory Orders* Orthopedics Location: None Selected [facility] Work Phone: Summary Purpose Family History No Family History Records Found Relationship Condition Age at Onset Recorded Date/T carter Not Specified Anxiety Unknown Arthritis Unknown Depression Unknown Hypertension Unknown Disorder of thyroid Unknown Advance Directives No Advanced Directives Records Found Advance Directive Response Recorded Date/ Time Living Will No March 30 10:18am Power of Pet Trainer No March 30, 2021 10:18am Advance Directive Response Recorded Date/ Time Living Will No September 27, 2021 1: 20pm Power of Pet Trainer No September 27, 2021 1:20pm Advance Directive Response Recorded Date/ Time Living Will No December 03, 2021 11:04am Power of Pet Trainer No December 03 11:04am Advance Directive Response Recorded Date/ Time Living Will No December 03, 2021 10:04am Power of Pet Trainer No December 03 10:04am Advance Directive Response Recorded Date/ Time Living Will No November 17, 2022 7:40am Power of Pet Trainer No November 17 7:40am Advance Directive Response Recorded Date/ Time Name of Medical Power of Pet Trainer Ct Ramirez November 17, 2022 10:26am Living Will Yes November 17, 2022 10:26am Power of Pet Trainer Yes November 17 10:26am Advance Directive Response Recorded Date/ Time Living Will Yes November 17, 2022 9:26am Power of Pet Trainer Yes November 17 9:26am Advance Directive Response Recorded Date/ Time Living Will Yes November 17, 2022 10:26am Power of Pet Trainer Yes November 17 10:26am Advance Directive Response Recorded Date/ Time Living Will Yes April 21 1:48am Do you have a Healthcare Power of Pet Trainer? Yes April 21, 2024 1:48am Living Will Yes May 22 1:25am Do you have a Healthcare Power of Pet Trainer? Yes May 22, 2024 1:25am Advance Directive Response Recorded Date/ Time Living Will Yes April 21 1:48am Do you have a Healthcare Power of Pet Trainer? Yes April 21, 2024 1:48am Living Will Yes May 22 1:25am Do you have a Healthcare Power of Pet Trainer? Yes May 22, 2024 1:25am Living Will No August 21, 2024 11:14am Do you have a Healthcare Power of Pet Trainer? No August 21, 2024 11:14am Advance Directive Response Recorded Date/ Time Living Will Yes April 21 1:48am Do you have a Healthcare Power of Pet Trainer? Yes April 21, 2024 1:48am Living Will Yes May 22 1:25am Do you have a Healthcare Power of Pet Trainer? Yes May 22, 2024 1:25am Living Will No August 21, 2024 2:46pm Do you have a Healthcare Power of Pet Trainer? No August 21, 2024 2:46pm Advance Directive Response Recorded Date/ Time Living Will Yes August 20, 2024 12:36am Do you have a Healthcare Power of Pet Trainer? Yes August 20, 2024 12:36am Living Will Yes May 22 1:25am Do you have a Healthcare Power of Pet Trainer? Yes May 22, 2024 1:25am Living Will No August 21, 2024 2:46pm Do you have a Healthcare Power of Pet Trainer? No August 21, 2024 2:46pm Living Will Yes September 19, 2024 12 :14am Do you have a Healthcare Power of Pet Trainer? Yes September 19, 2024 12:14am Chief Complaint and Reason for Visit Chief Complaint CHF (OLEGHE) (MOVED FROM 01/27) vaginal irritation PAIN FOLLOW UP Reason for Visit Essential hypertensi on Heart failure with preserved ejection fraction History of pulmonary embolus (PE) Hyperlipidemia Shortness of breath Tobacco use Chief Complaint PAIN FOLLOW UP LEFT LEG PAIN SURGERY CLEARANCE, PPW RECEIVED Encounter for other preprocedural examination Reason for Visit Tobacco use Melanoma Preoperative clearance History of pulmonary embolus (PE) Chief Complaint LEFT LEG PAIN SURGERY CLEARANCE, PPW RECEIVED Encounter for other preprocedural examination Encounter for other preprocedural examination FACIAL INJURY Reason for Visit Melanoma Preoperative clearance History of pulmonary embolus (PE) Chief Complaint SURGERY CLEARANCE, P PW RECEIVED Encounter for other preprocedural examination Encounter for other preprocedural examination FACIAL INJURY 3 M FU, R/S NO SHOW LAST APPT, MED REFILLS Reason for Visit Melanoma Preoperative clearance History of pulmonary embolus (PE) Menopausal disorder Anxiety and depression Essential hypertension Chief Complaint FACIAL INJURY 3 M FU, R/S NO SHOW LAST APPT, MED REFILLS 1 M FU SEVERE BACK PAIN/WENT TO [facility] 3 M FU Reason for Visit Menopausal disorder Anxiety and depression Essential hypertension Anxiety and depression Essential hypertension Osteoarthritis of left knee Acute low back pain Essential hypertension Muscle spasm GERD (gastroesophageal reflux disease) Anxiety and depression Essential hypertension Chief Complaint SEVERE BACK PAIN/DALTON T TO [facility] 3 M FU Cough Reason for Visit Acute low back pain Essential hypertension Muscle spasm GERD (gastroesophageal reflux disease) Anxiety and depression Essential hypertension Cough Chief Complaint Cough follow up Reason for Visit Cough Borderline type 2 diabetes mellitus Essential hypertension GERD (gastroesophageal reflux disease) Hyperlipidemia Chief Complaint follow up Red bumps on toe NSTEMI, ATRIAL FLUTTER NSTEMI, ATRIAL FLUTTER Reason for Visit Borderline type 2 di abetes mellitus Essential hypertension GERD (gastroesophageal reflux disease) Hyperlipidemia Osteoarthritis of left knee Tinea pedis Acute hypokalemia Angina of effort Atrial flutter Chest pain 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 Non-ST elevation [place] (NSTEMI) History of pulmonary embolus (PE) Tobacco use Chief Complaint follow up Red bumps on toe NSTEMI, ATRIAL FLUTTER NSTEMI, ATRIAL FLUTTER NSTEMI, ATRIAL FLUTTER NSTEMI, ATRIAL FLUTTER Reason for Visit Borderline type 2 di abetes mellitus Essential hypertension GERD (gastroesophageal reflux disease) Hyperlipidemia Osteoarthritis of left knee Tinea pedis Abdominal aneurysm Acute hypokalemia Angina of effort Atrial flutter Chest pain 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 Non-ST elevation [place] (NSTEMI) Essential hypertension History of pulmonary embolus (PE) Tobacco use Chief Complaint NSTEMI, ATRIAL FLUTT ER NSTEMI, ATRIAL FLUTTER NSTEMI, ATRIAL FLUTTER NSTEMI, ATRIAL FLUTTER NSTEMI, ATRIAL FLUTTER Consult, referral from cardiology RETURN TO WORK EVAL/RX HERE WORK RESTRICTIONS MID/RIGHT SIDE BACK PAIN back pain Reason for Visit Abdominal aneurysm Current use of chcf 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 Essential hypertension Thoracoabdominal aortic aneurysm (TAAA) Tobacco use Thoracoabdominal aortic aneurysm (TAAA) Abdominal aneurysm Debility, unspecified Return to work evaluation Right renal mass Borderline type 2 diabetes mellitus Osteoarthritis of left knee Shortness of breath Acute lumbar myofascial strain Acute thoracic myofascial strain Chief Complaint MID/RIGHT SIDE BACK PAIN back pain THORACIC STRAIN RX HERE Reason for Visit Acute lumbar myofasc ial strain Acute thoracic myofascial strain Chief Complaint MID/RIGHT SIDE BACK PAIN back pain THORACIC STRAIN RX HERE acute - several concerns/out of meds Reason for Visit Acute lumbar myofasc ial strain Acute thoracic myofascial strain History of pulmonary embolus (PE) Anxiety and depression Essential hypertension Heart failure with preserved ejection fraction Hyperlipidemia Insomnia Shortness of breath Tobacco use Chief Complaint THORACIC STRAIN RX H ERE acute - several concerns/out of meds Reason for Visit History of pulmonary embolus (PE) Anxiety and depression Essential hypertension Heart failure with preserved ejection fraction Hyperlipidemia Insomnia Shortness of breath Tobacco use Chief Complaint THORACIC STRAIN RX H ERE acute - several concerns/out of meds acute - discuss meds (keep 1 hr) Reason for Visit History of pulmonary embolus (PE) Anxiety and depression Essential hypertension Heart failure with preserved ejection fraction Hyperlipidemia Insomnia Shortness of breath Tobacco use Atrial flutter History of pulmonary embolus (PE) Anxiety and depression Essential hypertension Heart failure with preserved ejection fraction Insomnia Osteoarthritis of left knee Chief Complaint Admit Date SWOLLEN LEGS, SEEPING WATER AND BLISTERS July 24, 2024 2:08pm ACUTE 1 WEEK FOLLOW UP-PER DR MEKA Palacios ch 2024 9:34am Reason for Visit Admit Date Diastolic heart failure July 24, 2024 2:08pm Dyspnea on exertion July 24, 2024 2:08 pm Lower extremity edema July 24, 2024 2: 08pm Ulcer of right lower extremity July 2:08pm Atrial flutter July 24, 2024 2:08 pm Diastolic heart failure July 31, 2024 9:34am Open wound of lower extremity July 9:34am Chief Complaint Admit Date SWOLLEN LEGS, SEEPING WATER AND BLISTERS July 24, 2024 2:08pm ACUTE 1 WEEK FOLLOW UP-PER DR MEKA Palacios ch 2024 9:34am CHF EXA, AFIB RVR August 21, 2024 12:2 6pm CHF EXA, AFIB RVR August 21, 2024 12:3 8pm Reason for Visit Admit Date Diastolic heart failure July 24, 2024 2:08pm Dyspnea on exertion July 24, 2024 2:08 pm Lower extremity edema July 24, 2024 2: 08pm Ulcer of right lower extremity July 2:08pm Atrial flutter July 24, 2024 2:08 pm Diastolic heart failure July 31, 2024 9:34am Open wound of lower extremity July 9:34am Anasarca August 21, 2024 12:2 6pm Atrial flutter August 21, 2024 12:2 6pm Current use of chcf 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 August 21, 2024 12:26pm Microcytic anemia August 21, 2024 12:2 6pm Paroxysmal atrial fibrillation with RVR August 21, 2024 12:26pm Tachypnea on examination August 21, 2024 12:26pm Type 2 diabetes mellitus with hyperglyce benito August 21, 2024 12:26pm Acute exacerbation of CHF (congestive he art failure) August 21, 2024 12:26pm Essential hypertension August 21, 2024 1 2:26pm Hyperlipidemia August 21, 2024 12:2 6pm Chief Complaint Admit Date SWOLLEN LEGS, SEEPING WATER AND BLISTERS July 24, 2024 2:08pm ACUTE 1 WEEK FOLLOW UP-PER DR MEKA Palacios 2024 9:34am CHF EXA, AFIB RVR August 21, 2024 12:2 6pm CHF EXA, AFIB RVR August 21, 2024 12:3 8pm Referral Order August 22, 2024 8:24 am CHF EXA, AFIB RVR August 22, 2024 8:43 am CHF EXA, AFIB RVR August 23, 2024 8:17 am CHF EXA, AFIB RVR August 23, 2024 12:5 7pm CHF EXA, AFIB RVR August 24, 2024 12:0 2am CHF EXA, AFIB RVR August 24, 2024 3:06 pm CHF EXA, AFIB RVR August 25, 2024 2:19 am Reason for Visit Admit Date Diastolic heart failure July 24, 2024 2:08pm Dyspnea on exertion July 24, 2024 2:08 pm Lower extremity edema July 24, 2024 2: 08pm Ulcer of right lower extremity July 2:08pm Atrial flutter July 24, 2024 2:08 pm Diastolic heart failure July 31, 2024 9:34am Open wound of lower extremity July 9:34am Anasarca August 21, 2024 12:2 6pm Atrial flutter August 21, 2024 12:2 6pm Bradycardia August 21, 2024 12:2 6pm 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 August 21, 2024 12:26pm Heart failure with reduced ejection frac tion August 21, 2024 12:26pm Microcytic anemia August 21, 2024 12:2 6pm Paroxysmal atrial fibrillation with RVR August 21, 2024 12:26pm Tachypnea on examination August 21, 2024 12:26pm Type 2 diabetes mellitus with hyperglyce benito August 21, 2024 12:26pm Acute exacerbation of CHF (congestive he art failure) August 21, 2024 12:26pm Cardiac LV ejection fraction of 20-34% A pril 2024 12:26pm Essential hypertension August 21, 2024 1 2:26pm Hyperlipidemia August 21, 2024 12:2 6pm Thoracoabdominal aortic aneurysm (TAAA) August 21, 2024 12:26pm Chief Complaint Admit Date SWOLLEN LEGS, SEEPING WATER AND BLISTERS July 24, 2024 2:08pm ACUTE 1 WEEK FOLLOW UP-PER DR MEKA Palacios 2024 9:34am CHF EXA, AFIB RVR August 21, 2024 12:2 6pm CHF EXA, AFIB RVR August 21, 2024 12:3 8pm Referral Order August 22, 2024 8:24 am CHF EXA, AFIB RVR August 22, 2024 8:43 am CHF EXA, AFIB RVR August 23, 2024 8:17 am CHF EXA, AFIB RVR August 23, 2024 12:5 7pm CHF EXA, AFIB RVR August 24, 2024 12:0 2am CHF EXA, AFIB RVR August 24, 2024 3:06 pm CHF EXA, AFIB RVR August 25, 2024 2:19 am [facility] September 06, 2024 8:3 5am 2 M September 27, 2024 8:53am Reason for Visit Admit Date Atrial flutter July 24, 2024 2:08 pm Diastolic heart failure July 24, 2024 2:08pm Dyspnea on exertion July 24, 2024 2:08 pm Lower extremity edema July 24, 2024 2: 08pm Ulcer of right lower extremity July 2:08pm Open wound of lower extremity July 9:34am Diastolic heart failure July 31, 2024 9:34am Anasarca August 21, 2024 12:2 6pm Atrial flutter August 21, 2024 12:2 6pm Current use of chcf 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 August 21, 2024 12:26pm Microcytic anemia August 21, 2024 12:2 6pm Paroxysmal atrial fibrillation with RVR August 21, 2024 12:26pm Tachypnea on examination August 21, 2024 12:26pm Type 2 diabetes mellitus with hyperglyce benito August 21, 2024 12:26pm Acute exacerbation of CHF (congestive he art failure) August 21, 2024 12:26pm Cardiac LV ejection fraction of 20-34% A pril 2024 12:26pm Essential hypertension August 21, 2024 1 2:26pm Hyperlipidemia August 21, 2024 12:2 6pm Thoracoabdominal aortic aneurysm (TAAA) August 21, 2024 12:26pm Bradycardia August 21, 2024 12:2 6pm Heart failure with reduced ejection frac tion August 21, 2024 12:26pm Atrial fibrillation September 06, 2024 8:3 5am Diastolic heart failure September 06, 2024 8:35am Dyspnea on exertion September 06, 2024 8:3 5am Essential hypertension September 06, 2024 8:35am Lower extremity edema September 06, 2024 8 :35am Ulcer of right lower extremity August 8:35am Atrial fibrillation September 27, 2024 8:53am Congestive heart failure September 27, 2024 8 :53am Essential hypertension September 27, 2024 8:5 3am Insomnia September 27, 2024 8:53am Ulcer of left lower extremity with fat l michelle exposed September 27, 2024 8:53am Chief Complaint Admit Date SWOLLEN LEGS, SEEPING WATER AND BLISTERS July 24, 2024 2:08pm ACUTE 1 WEEK FOLLOW UP-PER DR MEKA Palacios 2024 9:34am CHF EXA, AFIB RVR August 21, 2024 12:2 6pm CHF EXA, AFIB RVR August 21, 2024 12:3 8pm Referral Order August 22, 2024 8:24 am CHF EXA, AFIB RVR August 22, 2024 8:43 am CHF EXA, AFIB RVR August 23, 2024 8:17 am CHF EXA, AFIB RVR August 23, 2024 12:5 7pm CHF EXA, AFIB RVR August 24, 2024 12:0 2am CHF EXA, AFIB RVR August 24, 2024 3:06 pm CHF EXA, AFIB RVR August 25, 2024 2:19 am [facility] FU September 06, 2024 8:3 5am 2 M FU September 27, 2024 8:53am PAIN IN LEFT KNEE October 25, 2024 8:04a m Chief Complaint Admit Date ACUTE 1 WEEK FOLLOW UP-PER DR MEKA Palacios 2024 9:34am CHF EXA, AFIB RVR August 21, 2024 12:2 6pm CHF EXA, AFIB RVR August 21, 2024 12:3 8pm Referral Order August 22, 2024 8:24 am CHF EXA, AFIB RVR August 22, 2024 8:43 am CHF EXA, AFIB RVR August 23, 2024 8:17 am CHF EXA, AFIB RVR August 23, 2024 12:5 7pm CHF EXA, AFIB RVR August 24, 2024 12:0 2am CHF EXA, AFIB RVR August 24, 2024 3:06 pm CHF EXA, AFIB RVR August 25, 2024 2:19 am [facility] FU September 06, 2024 8:3 5am 2 M September 27, 2024 8:53am PAIN IN LEFT KNEE October 25, 2024 8:04a m BIT BY HORSE FLY - YELLOW PUSS November 25, 2024 12:28pm Reason for Visit Admit Date Open wound of lower extremity July 9:34am Diastolic heart failure July 31, 2024 9:34am Anasarca August 21, 2024 12:2 6pm Atrial flutter August 21, 2024 12:2 6pm 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 August 21, 2024 12:26pm Microcytic anemia August 21, 2024 12:2 6pm Paroxysmal atrial fibrillation with RVR August 21, 2024 12:26pm Tachypnea on examination August 21, 2024 12:26pm Type 2 diabetes mellitus with hyperglyce benito August 21, 2024 12:26pm Acute exacerbation of CHF (congestive he art failure) August 21, 2024 12:26pm Cardiac LV ejection fraction of 20-34% A pril 2024 12:26pm Essential hypertension August 21, 2024 1 2:26pm Hyperlipidemia August 21, 2024 12:2 6pm Thoracoabdominal aortic aneurysm (TAAA) August 21, 2024 12:26pm Bradycardia August 21, 2024 12:2 6pm Heart failure with reduced ejection frac tion August 21, 2024 12:26pm Atrial fibrillation September 06, 2024 8:3 5am Diastolic heart failure September 06, 2024 8:35am Dyspnea on exertion September 06, 2024 8:3 5am Essential hypertension September 06, 2024 8:35am Lower extremity edema September 06, 2024 8 :35am Ulcer of right lower extremity August 8:35am Atrial fibrillation September 27, 2024 8:53am Congestive heart failure September 27, 2024 8 :53am Essential hypertension September 27, 2024 8:5 3am Insomnia September 27, 2024 8:53am Ulcer of left lower extremity with fat l michelle exposed September 27, 2024 8:53am Bilateral knee pain October 25, 2024 8:04a m Osteoarthritis of left knee October 25 8:04am Additional Source Comments INFORMATION SOURCE (unrecogn ized section and content) DATE CREATED AUTHOR 11/15/2017 [facility] DATE CREATED AUTHOR AUTHOR'S ORGANIZ ATION 10/09/2021 [facility] DATE CREATED AUTHOR AUTHOR'S ORGANIZ ATION 12/03/2024 [facility] Goals (unrecognized section and content) Goals may be documented in a n alternate sectionGoals may be documented in an alternate sectionGoals may be documented in an alternate sectionGoals may be documented in an alternate sectionGoals may be documented in an alternate sectionGoals may be documented in an alternate sectionGoals may be documented in an alternate sectionGoals may be documented in an alternate sectionGoals may be documented in an alternate sectionGoals may be documented in an alternate sectionGoals may be documented in an alternate sectionGoals may be documented in an alternate sectionGoals may be documented in an alternate sectionGoals may be documented in an alternate sectionGoals may be documented in an alternate sectionGoals may be documented in an alternate sectionGoals may be documented in an alternate sectionGoals may be documented in an alternate sectionGoals may be documented in an alternate sectionGoals may be documented in an alternate sectionGoals may be documented in an alternate section Source Comments (unrecognize d section and content) In the event this informatio n is protected by the Federal Confidentiality of Alcohol and Drug Abuse Patient Records regulations: The Federal rules restrict any use of the information to criminally investigate or prosecute any alcohol or drug abuse patient.[facility] the event this information is protected by the Federal Confidentiality of Alcohol and Drug Abuse Patient Records regulations: The Federal rules restrict any use of the information to criminally investigate or prosecute any alcohol or drug abuse patient.[facility] Reason for Visit (unrecogniz ed section and content) Reason Comments Vaginal Problem Yeast infections Care Teams (unrecognized sec tion and content) Team Status: Active Member Role Status Dates No Primary Care Physician Family Provider Active Dr. Abdulaziz Ackerman MD Primary Care Provider Active Team Status: Inactive Member Role Status Dates Dr. Abdulaziz Ackerman MD Primary Care P zoie, Attending Provider, Referring Provider Active Team Status: Inactive Member Role Status Dates Dr. Abdulaziz Ackerman MD Primary Care Provider, Refer ring Provider Active Jimmy Valderrama NP, [employer]-C Attending Provider Active Team Status: Inactive Member Role Status Dates Dr. Abdulaziz Ackerman MD Primary Care Provider, Refer ring Provider Active ZACK Woody Attending Provider Active Team Status: Inactive Member Role Status Dates Dr. Abdulaziz Ackerman MD Primary Care Provider Active ZACK Woody Attending Provider, Referring Pro vider Active Team Status: Active Member Role Status Dates Dr. Abdulaziz Ackerman MD Primary Care Provider Active Dr. Maury Flores DO Emergency Provider Active Dr. Jimmy Clark DO Admit Provider, Attending Provider, Other Provider Active Team Status: Active Member Role Status Dates Dr. Abdulaziz Ackerman MD Primary Care Provider Active Dr. Maury Flores DO Emergency Provider Active Dr. Jimmy Clark DO Admit Provider, Attending Pro vider Active Team Status: Active Member Role Status Dates Dr. Abdulaziz Ackerman MD Primary Care Provider Active Dr. Jamal Munoz MD Attending Provider Active Team Status: Active Member Role Status Dates Dr. Abdulaziz Ackerman MD Primary Care Provider Active Dr. Maury Flores DO Emergency Provider Active Dr. Jimmy Clark DO Admit Provider, Other Provide r Active Dr. Jamal Munoz MD Attending Provider, Other Provide r Active Dr. Tucker Dodson MD Other Provider Active Team Status: Active Member Role Status Dates Dr. Abdulaziz Ackerman MD Primary Care Provider Active Dr. Maury Flores DO Emergency Provider Active Dr. Jimmy Clark DO Admit Provider, Attending Provider, Other Provider Active Dr. Jamal Munoz MD Other Provider Active Dr. Tucker Dodson MD Other Provider Active Team Status: Inactive Member Role Status Dates Dr. Abdulaziz Ackerman MD Primary Care Provider Active Dr. Maury Flores DO Emergency Provider Active Dr. Jimmy Clark DO Admit Provider, Attending Pro vider Active Dr. Jamal Munoz MD Other Provider Active Dr. Tucker Dodson MD Other Provider Active Team Status: Active Member Role Status Dates Dr. Abdulaziz Ackerman MD Primary Care Provider Active Dr. Maury Flores DO Emergency Provider Active Dr. Jimmy Clark DO Admit Provider, Referring Provider, Other Provider Active Dr. Jamal Munoz MD Other Provider Active Dr. Tucker Dodson MD Other Provider Active ZACK Mathias Attending Provider Active Team Status: Inactive Member Role Status Dates Dr. Abdulaziz Ackerman MD Primary Care Provider, Refer ring Provider Active Dr. Tucker Dodson MD Attending Provider Active Team Status: Inactive Member Role Status Dates Dr. Abdulaziz Ackerman MD Primary Care Provider, Refer ring Provider Active Vince DIXON PA Attending Provider Active Team Status: Active Member Role Status Dates Dr. Abdulaziz Ackerman MD Primary Care P rovider, Attending Provider, Referring Provider Active Team Status: Inactive Member Role Status Dates Dr. Abdulaziz Ackerman MD Primary Care Provider Active Vince DIXON PA Attending Provider, Referring Pr ovider Active Team Status: Inactive Member Role Status Dates Dr. Abdulaziz Ackerman MD Primary Care Provider, Refer ring Provider Active Sara Perez [employer]-C Attending Provider Active Team Status: Active Member Role Status Dates Dr. Abdulaziz Ackerman MD Primary Care Provider Active Sara Perez [employer]-C Attending Provider, Referring Pro vider Active Team Status: Inactive Member Role Status Dates Dr. Abdulaziz Ackerman MD Primary Care Provider Active Sara Perez NP-C Attending Provider Active Team Status: Inactive Member Role Status Dates Dr. Abdulaziz Ackerman MD Primary Care Provider Active Sara Preez NP-C Attending Provider, Referring Pro vider Active Team Status: Inactive Member Role Status Dates Dr. Abdulaziz Ackerman MD Primary Care Provider, Atten ding Provider Active Team Status: Active Member Role Status Dates Dr. Abdulaziz Ackerman MD Primary Care Provider Active Sara Perez NP-Jaden Attending Provider Active Team Status: Active Member Role Status Dates Dr. Abdulaziz Ackerman MD Primary Care Provider Active Team Status: Inactive Member Role Status Dates Dr. Abdulaziz Ackerman MD Primary Care Provider Active Start: April 30, 2024 End: May 21, 2024 Dr. Abdulaziz Ackerman MD Attending Provider Active Start: April 30, 2024 End: May 21, 2024 Dr. Abdulaziz Ackerman MD Referring Provider Active Start: April 30, 2024 End: May 21, 2024 Team Status: Inactive Member Role Status Dates Dr. Abdulaziz Ackerman MD Primary Care Provider Active Start: July 24, 2024 End: July 24, 2024 Dr. Abdulaziz Ackermna MD Attending Provider Active Start: July 24, 2024 End: July 24, 2024 Dr. Abdulaziz Ackerman MD Referring Provider Active Start: July 24, 2024 End: July 24, 2024 Team Status: Inactive Member Role Status Dates Dr. Abdulaziz Ackerman MD Primary Care Provider Active Start: July 31, 2024 End: July 31, 2024 Dr. Abdulaziz Ackerman MD Referring Provider Active Start: July 31, 2024 End: July 31, 2024 ZACK Kelley Attending Provider Active St art: July 31, 2024 End: July 31, 2024 Team Status: Inactive Member Role Status Dates Dr. Abdulaziz Ackerman MD Primary Care Provider Active Start: August 15, 2024 End: August 19, 2024 Dr. Abdulaziz Ackerman MD Attending Provider Active Start: August 15, 2024 End: August 19, 2024 Dr. Abdulaziz Ackerman MD Referring Provider Active Start: August 15, 2024 End: August 19, 2024 Team Status: Active Member Role Status Dates Dr. Abdulaziz Ackerman MD Primary Care Provider Active Start: August 21, 2024 Dr. Skyler Watkins MD Emergency Provider Active Sta rt: August 21, 2024 Dr. Iglesia Benson MD Admit Provider Active Sta rt: August 21, 2024 Dr. Iglesia Benson MD Attending Provider Active Start: August 21, 2024 Dr. Param Dominguez MD Other Provider Active St art: August 21, 2024 Team Status: Active Member Role Status Dates Dr. Abdulaziz Ackerman MD Primary Care Provider Active Start: August 21, 2024 Dr. Skyler Watkins MD Emergency Provider Active Sta rt: August 21, 2024 Dr. Param Dominguez MD Other Provider Active St art: August 21, 2024 Dr. Iglesia Benson MD Admit Provider Active Sta rt: August 21, 2024 Dr. Iglesia Benson MD Attending Provider Active Start: August 21, 2024 Dr. Iglesia Benson MD Other Provider Active Sta rt: August 21, 2024 Team Status: Inactive Member Role Status Dates Dr. Abdulaziz Ackerman MD Primary Care Provider Active Start: August 21, 2024 End: August 25, 2024 Dr. Skyler Watkins MD Emergency Provider Active Sta rt: August 21, 2024 End: August 25, 2024 Dr. Iglesia Benson MD Admit Provider Active Sta rt: August 21, 2024 End: August 25, 2024 Dr. Iglesia Benson MD Attending Provider Active Start: August 21, 2024 End: August 25, 2024 Dr. Param Dominguez MD Other Provider Active St art: August 21, 2024 End: August 25, 2024 Team Status: Active Member Role Status Dates Dr. Abdulaziz Ackerman MD Primary Care Provider Active Start: August 21, 2024 Dr. Jamal Munoz MD Attending Provider Active S tart: August 21, 2024 Team Status: Active Member Role Status Dates Dr. Abdulaziz Ackerman MD Primary Care Provider Active Start: August 22, 2024 Dr. Jamal Munoz MD Attending Provider Active S tart: August 22, 2024 Team Status: Active Member Role Status Dates Dr. Abdulaziz Ackerman MD Primary Care Provider Active Start: August 22, 2024 Dr. Skyler Watkins MD Emergency Provider Active Sta rt: August 22, 2024 Dr. Iglesia Benson MD Admit Provider Active Sta rt: August 22, 2024 Dr. Iglesia Benson MD Attending Provider Active Start: August 22, 2024 Dr. Iglesia Benson MD Other Provider Active Sta rt: August 22, 2024 Dr. Param Dominguez MD Other Provider Active St art: August 22, 2024 Team Status: Active Member Role Status Dates Dr. bAdulaziz Ackerman MD Primary Care Provider Active Start: August 23, 2024 Dr. Skyler Watkins MD Emergency Provider Active Sta rt: August 23, 2024 Dr. Iglesia Benson MD Admit Provider Active Sta rt: August 23, 2024 Dr. Iglesia Benson MD Other Provider Active Sta rt: August 23, 2024 Dr. Param Dominguez MD Other Provider Active St art: August 23, 2024 Dr. Jamal Munoz MD Attending Provider Active S tart: August 23, 2024 Team Status: Active Member Role Status Dates Dr. Abdulaziz Ackerman MD Primary Care Provider Active Start: August 23, 2024 Dr. Skyler Watkins MD Emergency Provider Active Sta rt: August 23, 2024 Dr. Iglesia Benson MD Admit Provider Active Sta rt: August 23, 2024 Dr. Iglesia Benson MD Attending Provider Active Start: August 23, 2024 Dr. Iglesia Benson MD Other Provider Active Sta rt: August 23, 2024 Dr. Param Dominguez MD Other Provider Active St art: August 23, 2024 Team Status: Active Member Role Status Dates Dr. Abdulaziz Ackerman MD Primary Care Provider Active Start: August 24, 2024 Dr. Skyler Watkins MD Emergency Provider Active Sta rt: August 24, 2024 Dr. Iglesia Benson MD Admit Provider Active Sta rt: August 24, 2024 Dr. Iglesia Benson MD Other Provider Active Sta rt: August 24, 2024 Dr. Param Dominguez MD Other Provider Active St art: August 24, 2024 Dr. Samantha Gary MD Attending Provider Active Start: August 24, 2024 Team Status: Active Member Role Status Dates Dr. Abdulaziz Ackerman MD Primary Care Provider Active Start: August 24, 2024 Dr. Skyler Watkins MD Emergency Provider Active Sta rt: August 24, 2024 Dr. Iglesia Benson MD Admit Provider Active Sta rt: August 24, 2024 Dr. Iglesia Benson MD Other Provider Active Sta rt: August 24, 2024 Dr. Param Dominguez MD Other Provider Active St art: August 24, 2024 Dr. Felicia Ramesh MD Attending Provider Activ e Start: August 24, 2024 Team Status: Active Member Role Status Dates Dr. Abdulaziz Ackerman MD Primary Care Provider Active Start: August 25, 2024 Dr. Skyler Watkins MD Emergency Provider Active Sta rt: August 25, 2024 Dr. Iglesia Benson MD Admit Provider Active Sta rt: August 25, 2024 Dr. Iglesia Benson MD Other Provider Active Sta rt: August 25, 2024 Dr. Param Dominguez MD Other Provider Active St art: August 25, 2024 Dr. Samantha Gary MD Attending Provider Active Start: August 25, 2024 Team Status: Active Member Role Status Dates Dr. Abdulaziz Ackerman MD Primary Care Provider Active Start: August 24, 2024 Dr. Skyler Watkins MD Emergency Provider Active Sta rt: August 24, 2024 Dr. Iglesia Benson MD Admit Provider Active Sta rt: August 24, 2024 Dr. Iglesia Benson MD Attending Provider Active Start: August 24, 2024 Dr. Iglesia Benson MD Other Provider Active Sta rt: August 24, 2024 Dr. Param Dominguez MD Other Provider Active St art: August 24, 2024 Team Status: Inactive Member Role Status Dates Dr. Abdulaziz Ackerman MD Primary Care Provider Active Start: September 02, 2024 End: September 18, 2024 Dr. Abdulaziz Ackerman MD Attending Provider Active Start: September 02, 2024 End: September 18, 2024 Dr. Abdulaziz Ackerman MD Referring Provider Active Start: September 02, 2024 End: September 18, 2024 Team Status: Inactive Member Role Status Dates Dr. Abdulaziz Ackerman MD Primary Care Provider Active Start: September 06, 2024 End: September 06, 2024 Dr. Abdulaziz Ackerman MD Attending Provider Active Start: September 06, 2024 End: September 06, 2024 Dr. Abdulaziz Ackerman MD Referring Provider Active Start: September 06, 2024 End: September 06, 2024 Team Status: Inactive Member Role Status Dates Dr. Abdulaziz Ackerman MD Primary Care Provider Active Start: September 27, 2024 End: September 27, 2024 Dr. Abdulaziz Ackerman MD Attending Provider Active Start: September 27, 2024 End: September 27, 2024 Dr. Abdulaziz Ackerman MD Referring Provider Active Start: September 27, 2024 End: September 27, 2024 Team Status: Inactive Member Role Status Dates Dr. Abdulaziz Ackerman MD Primary Care Provider Active Start: October 17, 2024 End: October 19, 2024 Dr. Abdulaziz Ackerman MD Attending Provider Active Start: October 17, 2024 End: October 19, 2024 Dr. Abdulaziz Ackerman MD Referring Provider Active Start: October 17, 2024 End: October 19, 2024 Team Status: Inactive Member Role Status Dates Dr. Abdulaziz Ackerman MD Primary Care Provider Active Start: October 25, 2024 End: October 25, 2024 Dr. Abdulaziz Ackerman MD Referring Provider Active Start: October 25, 2024 End: October 25, 2024 ZACK Kelley Attending Provider Active St art: October 25, 2024 End: October 25, 2024 Team Status: Active Member Role/Relationship Status Dates Dr. Abdulaziz Ackerman MD Primary Care Provider Active Team Status: Inactive Member Role/Relationship Status Dates Dr. Abdulaziz Ackerman MD Primary Care Provider Active Start: July 31, 2024 End: July 31, 2024 Dr. Abdulaziz Ackerman MD Referring Provider Active Start: July 31, 2024 End: July 31, 2024 ZACK Kelley Attending Provider Active St art: July 31, 2024 End: July 31, 2024 Team Status: Inactive Member Role/Relationship Status Dates Dr. Abdulaziz Ackerman MD Primary Care Provider Active Start: August 15, 2024 End: August 19, 2024 Dr. Abdulaziz Ackerman MD Attending Provider Active Start: August 15, 2024 End: August 19, 2024 Dr. Abdulaziz Ackerman MD Referring Provider Active Start: August 15, 2024 End: August 19, 2024 Team Status: Inactive Member Role/Relationship Status Dates Dr. Abdulaziz Ackerman MD Primary Care Provider Active Start: August 21, 2024 End: August 25, 2024 Dr. Skyler Watkins MD Emergency Provider Active Sta rt: August 21, 2024 End: August 25, 2024 Dr. Iglesia Benson MD Admit Provider Active Sta rt: August 21, 2024 End: August 25, 2024 Dr. Iglesia Benson MD Attending Provider Active Start: August 21, 2024 End: August 25, 2024 Dr. Param Dominguez MD Other Provider Active St art: August 21, 2024 End: August 25, 2024 Team Status: Active Member Role/Relationship Status Dates Dr. Abdulaziz Ackerman MD Primary Care Provider Active Start: August 21, 2024 Dr. Skyler Watkins MD Emergency Provider Active Sta rt: August 21, 2024 Dr. Param Dominguez MD Other Provider Active St art: August 21, 2024 Dr. Iglesia Benson MD Admit Provider Active Sta rt: August 21, 2024 Dr. Iglesia Benson MD Attending Provider Active Start: August 21, 2024 Dr. Iglesia Benson MD Other Provider Active Sta rt: August 21, 2024 Team Status: Active Member Role/Relationship Status Dates Dr. Abdulaziz Ackerman MD Primary Care Provider Active Start: August 21, 2024 Dr. Jamal Munoz MD Attending Provider Active S tart: August 21, 2024 Team Status: Active Member Role/Relationship Status Dates Dr. Abdulaziz Ackerman MD Primary Care Provider Active Start: August 22, 2024 Dr. Jamal Munoz MD Attending Provider Active S tart: August 22, 2024 Team Status: Active Member Role/Relationship Status Dates Dr. Abdulaziz Ackerman MD Primary Care Provider Active Start: August 22, 2024 Dr. Skyler Watkins MD Emergency Provider Active Sta rt: August 22, 2024 Dr. Iglesia Benson MD Admit Provider Active Sta rt: August 22, 2024 Dr. Iglesia Benson MD Attending Provider Active Start: August 22, 2024 Dr. Iglesia Benson MD Other Provider Active Sta rt: August 22, 2024 Dr. Param Dominguez MD Other Provider Active St art: August 22, 2024 Team Status: Active Member Role/Relationship Status Dates Dr. Abdulaziz Ackerman MD Primary Care Provider Active Start: August 23, 2024 Dr. Skyler Watkins MD Emergency Provider Active Sta rt: August 23, 2024 Dr. Iglesia Benson MD Admit Provider Active Sta rt: August 23, 2024 Dr. Iglesia Benson MD Other Provider Active Sta rt: August 23, 2024 Dr. Param Dominguez MD Other Provider Active St art: August 23, 2024 Dr. Jamal Munoz MD Attending Provider Active S tart: August 23, 2024 Team Status: Active Member Role/Relationship Status Dates Dr. Abdulaziz Ackerman MD Primary Care Provider Active Start: August 23, 2024 Dr. Skyler Watkins MD Emergency Provider Active Sta rt: August 23, 2024 Dr. Iglesia Benson MD Admit Provider Active Sta rt: August 23, 2024 Dr. Iglesia Benson MD Attending Provider Active Start: August 23, 2024 Dr. Iglesia Benson MD Other Provider Active Sta rt: August 23, 2024 Dr. Param Dominguez MD Other Provider Active St art: August 23, 2024 Team Status: Active Member Role/Relationship Status Dates Dr. Abdulaziz Ackerman MD Primary Care Provider Active Start: August 24, 2024 Dr. Skyler Watkins MD Emergency Provider Active Sta rt: August 24, 2024 Dr. Iglesia Benson MD Admit Provider Active Sta rt: August 24, 2024 Dr. Iglesia Benson MD Attending Provider Active Start: August 24, 2024 Dr. Iglesia Benson MD Other Provider Active Sta rt: August 24, 2024 Dr. Param Dominguez MD Other Provider Active St art: August 24, 2024 Team Status: Active Member Role/Relationship Status Dates Dr. Abdulaziz Ackerman MD Primary Care Provider Active Start: August 24, 2024 Dr. Skyler Watkins MD Emergency Provider Active Sta rt: August 24, 2024 Dr. Iglesia Benson MD Admit Provider Active Sta rt: August 24, 2024 Dr. Iglesia Benson MD Other Provider Active Sta rt: August 24, 2024 Dr. Param Dominguez MD Other Provider Active St art: August 24, 2024 Dr. Felicia Ramesh MD Attending Provider Activ e Start: August 24, 2024 Team Status: Active Member Role/Relationship Status Dates Dr. Abdulaziz Ackerman MD Primary Care Provider Active Start: August 25, 2024 Dr. Skyler Watkins MD Emergency Provider Active Sta rt: August 25, 2024 Dr. Iglesia Benson MD Admit Provider Active Sta rt: August 25, 2024 Dr. Iglesia Benson MD Other Provider Active Sta rt: August 25, 2024 Dr. Param Dominguez MD Other Provider Active St art: August 25, 2024 Dr. Samantha Gary MD Attending Provider Active Start: August 25, 2024 Team Status: Inactive Member Role/Relationship Status Dates Dr. Abdulaziz Ackerman MD Primary Care Provider Active Start: September 02, 2024 End: September 18, 2024 Dr. Abdulaziz Ackerman MD Attending Provider Active Start: September 02, 2024 End: September 18, 2024 Dr. Abdulaziz Ackerman MD Referring Provider Active Start: September 02, 2024 End: September 18, 2024 Team Status: Inactive Member Role/Relationship Status Dates Dr. Abdulaziz Ackerman MD Primary Care Provider Active Start: September 06, 2024 End: September 06, 2024 Dr. Abdulaziz Ackerman MD Attending Provider Active Start: September 06, 2024 End: September 06, 2024 Dr. Abdulaziz Ackerman MD Referring Provider Active Start: September 06, 2024 End: September 06, 2024 Team Status: Inactive Member Role/Relationship Status Dates Dr. Abdulaziz Ackerman MD Primary Care Provider Active Start: September 27, 2024 End: September 27, 2024 Dr. Abdulaziz Ackerman MD Attending Provider Active Start: September 27, 2024 End: September 27, 2024 Dr. Abdulaziz Ackerman MD Referring Provider Active Start: September 27, 2024 End: September 27, 2024 Team Status: Inactive Member Role/Relationship Status Dates Dr. Abdulaziz Ackerman MD Primary Care Provider Active Start: October 17, 2024 End: October 19, 2024 Dr. Abdulaziz Ackerman MD Attending Provider Active Start: October 17, 2024 End: October 19, 2024 Dr. Abdulaziz Ackerman MD Referring Provider Active Start: October 17, 2024 End: October 19, 2024 Team Status: Inactive Member Role/Relationship Status Dates Dr. Abdulaziz Ackerman MD Primary Care Provider Active Start: October 25, 2024 End: October 25, 2024 Dr. Abdulaziz Ackerman MD Referring Provider Active Start: October 25, 2024 End: October 25, 2024 ZACK Kelley Attending Provider Active St art: October 25, 2024 End: October 25, 2024 Team Status: Inactive Member Role/Relationship Status Dates Dr. Abdulaziz Ackerman MD Primary Care Provider Active Start: November 25, 2024 End: November 25, 2024 Dr. Abdulaziz Ackerman MD Referring Provider Active Start: November 25, 2024 End: November 25, 2024 SUSANA Almeida Attending Provider Active Start: November 25, 2024 End: November 25, 2024 FOR RECORDS PERTAINING TO PATIENTS WHO ARE OR HAVE BEEN ENROLLED IN A CHEMICAL DEPENDENCY/SUBSTANCEABUSE PROGRAM, SOME INFORMATION MAY BE OMITTED. This clinical summary was aggregated from multiple sources. Caution should be exercised in using it in the provision of clinical care. This summary normalizes information from multiple sources, and as a consequence, information in this document may materially change the coding, format and clinical context of patient data. In addition, data may be omitted in some cases. CLINICAL DECISIONS SHOULD BE BASED ON THE PRIMARY CLINICAL RECORDS. [facility]. provides no warranty or guarantee of the accuracy or completeness of information in this document.
[2024-12-10 23:07] LABS: Troponin T High Sens 4 HR 31 ng/L (<=14)
[2024-12-11] VITALS (8 sets, daily range): BP systolic 103–147; BP diastolic 54–92; PULSE 49–98; RESP 18–22; TEMP 36.2–36.9; O2SAT 95–99; BMI 32.9; BMI 32.8
[2024-12-11] MEDS: 0.9% Saline Lock 10 ML Syringe IV ×2 (01:03→19:57)
[2024-12-11 06:28] LABS: Hematocrit 34.6 % (37-47); Hemoglobin 9.9 g/dL (12.0-15.0); Immature Granulocytes Count 0.020 X10^3/uL (0.0-0.0); Mean Corp Hgb Conc 28.6 g/dL (32-36); Mean Corpuscular Volume 71.5 fL (81-99); Mean Platelet Vol. 9.9 fl (6.2-12.0); NRBC Flagged by Analyzer 0.5 % (0-5); POSITIVE MORPHOLOGY YES; Platelet Count 293 K/mm3 (150-450); RBC Distribution Width CV 22.6 % (11.6-14.6); RBC Distribution Width SD 57.0 fl (35.1-43.9); Red Blood Count 4.84 M/mm3 (4.2-5.4); White Blood Count 5.8 K/mm3 (4.4-11.0)
[2024-12-11 06:29] LABS: Differential Indicated SCAN CRITERIA MET
[2024-12-11 06:39] LABS: Prothrombin Time (Protime)PT. 19.6 SECONDS (11.7-14.9)
[2024-12-11 07:01] LABS: Anisocytosis 2+; Differential Comment SCANNED; Microcytosis 2+
[2024-12-11 07:03] LABS: Burr Cells RARE
[2024-12-11 07:05] LABS: AST(SGOT) 23 U/L (<=31); Alanine Aminotransfer ALT/SGPT 17 U/L (<=34); Albumin, Serum 3.3 g/dL (3.4-4.8); Alkaline Phosphatase 82 U/L (35-104); Anion Gap 12 (5-15); BUN 18 mg/dL (4-19); BUN/Creat Ratio 18.6 RATIO (10-20); Calcium,Total 8.6 mg/dL (7.6-11.0); Carbon Dioxide 23.4 mmol/L (21.0-32.0); Chloride 103 mmol/L (98-108); Cholesterol 84 mg/dL (<=200); Estimated Creatinine Clearance 65.70 ml/min (50-250); Globulin 3.1 g/dL (2.2-4.2); Glucose 121 mg/dL (70-99); Low Density Lipoprotein Calc. 50 mg/dL; Potassium 3.9 mmol/L (3.3-5.1); Triglycerides 68 mg/dL; Very Low Density Lipoprotein 14 mg/dL (5-40); cholesterol:hdl ratio screen 4.02
[2024-12-11] MEDS: Potassium Chloride Oral Tablet 20 MEQ PO (08:57)
--- NOTE | 2024-12-11 11:40 | CASEMGMT ---
RN CM Face to Face with patient for initial transition planning/care coordination assessment. RN CM introduced self and role at [facility]. Patient lying in bed, alert and oriented. Patient willing to participate in assessment and is able to answer all questions appropriately. Care providers, pharmacy, and demographics verified. Strata: 3 PCP: Meka Specialists: none Preferred Pharmacy: [facility] Insurance: [facility] Prescription Benefit: none, states she did not refill Lasix as she did not have money to fill at the time. States her sister has since filled Lasix prescription at discharge. RN CM updated SW regarding medication assistance. Living Will/HPOA: yes, sister [address] [place] LNOK: sister, daughter Living Arrangements: Patient lives alone in a single story home with 8 steps and railing to enter the home. Patient states she is independent at home. Transportation: self, sister, daughter. Patient mentioned she has issues with getting to appts due to car breaking down. RN CM updated SW regarding transportation resources. DME/HHC: Patient has shower chair at home. No previous HHC or SNF. Will monitor for home oxygen at discharge, prefers [employer]. Will monitor for glucometer at discharge. RN CM discuss low sodium diet. Patient does not have scale at home, RN CM encouraged patient to purchase scale to monitor for fluid retention, patient voiced understanding. Patient states she has recently started smoking again due to stress and is smoking .5-1 PPD of cigarettes. Patient declined cessation rescources. Patient wishes to discharge home, denies need for home health at this time. Patient states she has no further needs or concerns at this time. CM to follow for discharge planning needs that may arise. Disposition Plan: Patient to discharge home with family support and follow-up plans in place. Lou MADSENN, RN, CM
--- NOTE | 2024-12-11 13:45 | PN_ITS ---
Subjective Subjective Patient seen and examined. She was comfortably eating breakfast. She had no complaints and had an uneventful night. She was admitted with complaint of shortness of breath and being managed for acute exacerbation of heart failure. Her nurse was also by her bedside. Review of systems otherwise negative. Objective Data Objective Data Vital Signs: Vital Signs Temp Pulse Resp BP Pulse Ox O2 Del Method O2 Flow Rate 97.3 F L 89 20 H 109/54 L 96 Room Air 2 12/11/24 08:47 12/11/24 09:01 12/11/24 08:47 12/11/24 08:47 12/11/24 10:58 12/11/24 10:58 12/10/24 19:08 Oxygen Flow Rate (L/min) 2 Oxygen Delivery Method Room Air Weight: 203 lb 0.732 oz Body Mass Index (BMI) 32.8 Intake & Output: Intake and Output for Last 24 Hours 12/09/24 12/10/24 12/11/24 23:59 23:59 23:59 Intake Total 0 / 0 480 / 480 Output Total 400 / 400 Balance 0 / 0 80 / 80 Lab / Micro Data 12/11/24 05:36 12/11/24 05:36 Labs: Laboratory Results - last 24 hr 12/10/24 18:13: WBC 7.8, RBC 4.93, Hgb 9.9 L, Hct 35.5 L, MCV 72.0 L, MCH 20.1 L , MCHC 27.9 L, RDW Std Deviation 56.9 H, RDW Coeff of Ele 22.5 H, Plt Count 344, MPV 9.7, Immature Gran % (Auto) 0.500, Neut % (Auto) 71.0 H, Lymph % (Auto) 18.5 L, [place] % (Auto) 8.0, Eos % (Auto) 1.1, Baso % (Auto) 0.9, Absolute Neuts (auto) 5.6, Absolute Lymphs (auto) 1.45, Nucleated RBC % 0.4, Differential Comment SCANNED, Platelet Estimate ADEQUATE, Polychromasia 1+, Anisocytosis 2+, PT 21.2 H, INR 1.8, Sodium 139, Potassium 4.0, Chloride 105, Carbon Dioxide 21.9, Anion Gap 12, BUN 15, Creatinine 0.76, Estim Creat Clear Calc 73.39, Est GFR (MDRD) Non-Af 86, BUN/Creatinine Ratio 19.0, Glucose 86, Calcium 8.5, Troponin T High Sens 34 H, NT pro BNP II 6070 H 12/10/24 20:16: Magnesium 2.0, Troponin T Hi Sens 2 Hr 38 H 12/10/24 22:26: Troponin T Hi Sens 4Hr 31 H 12/11/24 01:00: POC Glucose 114 H 12/11/24 05:36: WBC 5.8, RBC 4.84, Hgb 9.9 L, Hct 34.6 L, MCV 71.5 L, MCH 20.5 L , MCHC 28.6 L, RDW Std Deviation 57.0 H, RDW Coeff of Ele 22.6 H, Plt Count 293, MPV 9.9, Immature Gran % (Auto) 0.300, Neut % (Auto) 62.5, Lymph % (Auto) 25.5, [place] % (Auto) 8.8, Eos % (Auto) 1.9, Baso % (Auto) 1.0, Absolute Neuts (auto) 3.6, Absolute Lymphs (auto) 1.47, Nucleated RBC % 0.5, Differential Comment SCANNED, Anisocytosis 2+, Microcytosis 2+, Ovalocytes RARE, Shivani Cells RARE, PT 19.6 H, INR 1.6, Sodium 139, Potassium 3.9, Chloride 103, Carbon Dioxide 23.4, Anion Gap 12, BUN 18, Creatinine 0.95, Estim Creat Clear Calc 65.70, Est GFR (MDRD) Non-Af 66, BUN/Creatinine Ratio 18.6, Glucose 121 H, Calcium 8.6, Total Bilirubin 0.92, AST 23, ALT 17, Alkaline Phosphatase 82, Total Protein 6.4, A lbumin 3.3 L, Globulin 3.1, Albumin/Globulin Ratio 1.1, Triglycerides 68, Cholesterol 84, LDL Cholesterol, Calc 50, VLDL Cholesterol 14, HDL Cholesterol 21 L, Cholesterol/HDL Ratio 4.02, TSH 1.910 12/11/24 06:35: POC Glucose 115 H 12/11/24 11:16: POC Glucose 248 H Radiography Diagnostic Testing: Radiology Impression Chest X-Ray 12/10/24 19:15 IMPRESSION: Probable mild edema in the setting of cardiomegaly. Reading Location: [facility] Physical Exam Const alert, oriented x3 and no apparent distress Constitutional Narrative: Class I obesity General Appearance: cooperative HEENT normocephalic, head/scalp atraumatic, moist oral mucous membranes and oropharynx normal Neck no lymphadenopathy and supple Resp normal respiratory effort, normal air movement and clear to auscultation bilaterally Cardio regular rate, regular rhythm, S1 normal heart sound, S2 normal heart sound and no murmurs GI normal to inspection, nondistended, normoactive bowel sounds, soft to palpation and non-tender Extremity General Extremity: no tenderness to palpation of joints or extremities Skin General Skin Exam: no breakdown Neuro CN's II-XII intact bilaterally and no focal motor deficits Motor Exam: strength 5/5 throughout and general weakness Psych thought process normal and cooperative Appearance: appropriate Assessment & Plan Assessment/Plan (1) Congestive heart failure: PLAN: Plan #Acute decompensated HFrEF * has a history of HFrEF. * On IV lasix 40mg bid. Had not been compliant with her meds as she did not have money to purchase more lasix once she run out. * has known EF of 20% and severe global hypokinesis and moderately enlarged left atriium and mild moderate LVI. * #Paroxysmal afib * currently rate controlled. * on coumadin. Monitor INR. * On coreg. * #Hypertension: on lisinopril, coreg and cardizem. #Hyperlipidemia: on statin. #Class II obesity: BMI is 32.8. Complicates acute care, expected recovery and prognosis. DVT prophylaxis: on coumadin. Monitor INR. Charges/Coding Visit Charges Inpatient E&M: 11155 Subs Hosp L2
[2024-12-12 04:30] VITALS: BP 120/81; PULSE 74; RESP 19; TEMP 36.9; O2SAT 93
--- NOTE | 2024-12-12 04:36 | PCM.HOSP.N ---
Hospitalist Note Patient with recurrent pauses similar to her previous presentation. Will hold her beta-latisha therapy. If ongoing may need to consider cardiology consultation.
[2024-12-12 05:15] VITALS: BMI 32.5
[2024-12-12 07:29] VITALS: O2SAT 96
[2024-12-12 08:00] LABS: Hematocrit 34.8 % (37-47); Hemoglobin 10.0 g/dL (12.0-15.0); Immature Granulocytes Count 0.030 X10^3/uL (0.0-0.0); Mean Corp Hgb Conc 28.7 g/dL (32-36); Mean Corpuscular Volume 71.0 fL (81-99); Mean Platelet Vol. 9.7 fl (6.2-12.0); NRBC Flagged by Analyzer 0.5 % (0-5); POSITIVE MORPHOLOGY YES; Platelet Count 286 K/mm3 (150-450); RBC Distribution Width CV 22.5 % (11.6-14.6); RBC Distribution Width SD 55.8 fl (35.1-43.9); Red Blood Count 4.90 M/mm3 (4.2-5.4); White Blood Count 6.6 K/mm3 (4.4-11.0)
[2024-12-12 08:19] LABS: Differential Indicated SCAN CRITERIA MET
[2024-12-12] MEDS: Potassium Chloride Oral Tablet 20 MEQ PO (09:10)
[2024-12-12 09:24] LABS: Anion Gap 12 (5-15); BUN 21 mg/dL (4-19); BUN/Creat Ratio 21.3 RATIO (10-20); Calcium,Total 8.8 mg/dL (7.6-11.0); Carbon Dioxide 25.8 mmol/L (21.0-32.0); Chloride 100 mmol/L (98-108); Estimated Creatinine Clearance 62.76 ml/min (50-250); Glucose 113 mg/dL (70-99); Potassium 3.7 mmol/L (3.3-5.1)
[2024-12-12 09:45] VITALS: BP 125/82; PULSE 50; RESP 17; TEMP 36.6; O2SAT 95
[2024-12-12 09:48] LABS: Anisocytosis 2+; Macrocytosis 1+; Polychromasia 1+
--- NOTE | 2024-12-12 10:41 | PN_ITS ---
Subjective Subjective Patient seen and examined. She complained of bilateral knee pain. She does have a history of arthritis. She was noted to have some pauses in her heart rate up to around 4 seconds today while she was sleeping in the early hours. Heart rate is 50 this morning. Beta-blockers held. Review of systems otherwise negative. She is on room air. I saw her with her nurse by bedside. Objective Data Objective Data Vital Signs: Vital Signs Temp Pulse Resp BP Pulse Ox O2 Del Method O2 Flow Rate 97.8 F 50 L 17 125/82 H 95 Room Air 2 12/12/24 09:45 12/12/24 09:45 12/12/24 09:45 12/12/24 09:45 12/12/24 09:45 12/12/24 09:45 12/10/24 19:08 Oxygen Flow Rate (L/min) 2 Oxygen Delivery Method Room Air Weight: 201 lb 4.513 oz Body Mass Index (BMI) 32.5 Intake & Output: Intake and Output for Last 24 Hours 12/10/24 12/11/24 12/12/24 23:59 23:59 23:59 Intake Total 0 / 0 1200 / 1200 300 / 300 Output Total 1000 / 1000 400 / 400 Balance 0 / 0 200 / 200 -100 / -100 Lab / Micro Data 12/12/24 07:41 12/12/24 07:41 Labs: Laboratory Results - last 24 hr 12/11/24 11:16: POC Glucose 248 H 12/11/24 16:52: POC Glucose 112 H 12/11/24 21:15: POC Glucose 99 12/12/24 06:17: POC Glucose 120 H 12/12/24 07:41: WBC 6.6, RBC 4.90, Hgb 10.0 L, Hct 34.8 L, MCV 71.0 L, MCH 20.4 L, MCHC 28.7 L, RDW Std Deviation 55.8 H, RDW Coeff of Ele 22.5 H, Plt Count 286, MPV 9.7, Immature Gran % (Auto) 0.500, Neut % (Auto) 63.6, Lymph % (Auto) 21.2, [place] % (Auto) 11.6 H, Eos % (Auto) 2.0, Baso % (Auto) 1.1 H, Absolute Neuts (auto) 4.2, Absolute Lymphs (auto) 1.39, Nucleated RBC % 0.5, Platelet Estimate A, Polychromasia 1+, Anisocytosis 2+, Macrocytosis 1+, Ovalocytes 1+, Sodium 138, Potassium 3.7, Chloride 100, Carbon Dioxide 25.8, Anion Gap 12, BUN 21 H, Creatinine 0.99, Estim Creat Clear Calc 62.76, Est GFR (MDRD) Non-Af 63, B UN/Creatinine Ratio 21.3 H, Glucose 113 H, Calcium 8.8 Physical Exam Const alert, oriented x3 and no apparent distress Constitutional Narrative: Class I obesity General Appearance: cooperative HEENT normocephalic, head/scalp atraumatic, moist oral mucous membranes and oropharynx normal Neck no lymphadenopathy and supple Resp normal respiratory effort, normal air movement and clear to auscultation bilaterally Cardio regular rate, regular rhythm, S1 normal heart sound, S2 normal heart sound and no murmurs GI normal to inspection, nondistended, normoactive bowel sounds, soft to palpation and non-tender Extremity Extremity Narrative: mild bilateral knee tenderness on palpation, no differential warmth Skin General Skin Exam: no breakdown Neuro CN's II-XII intact bilaterally and no focal motor deficits Motor Exam: strength 5/5 throughout and general weakness Psych thought process normal and cooperative Appearance: appropriate Assessment & Plan Assessment/Plan (1) Congestive heart failure: PLAN: Plan #Acute decompensated HFrEF * has a history of HFrEF. * On IV lasix 40mg bid. Had not been compliant with her meds as she did not have money to purchase more lasix once she run out. * has known EF of 20% and severe global hypokinesis and moderately enlarged left atriium and mild moderate LVI. * will switch to PO lasix today * #Paroxysmal afib * currently rate controlled. * on coumadin. Monitor INR. * On coreg. Coreg held today due to bradycardia and cardiac pauses. If the pauses continue, will consult cardiolgy * # Bilateral knee pain in the setting of osteoarthritis. Will get bilateral x- rays of the knees.. Tylenol p.o. oxycodone as needed. PT OT on board. #Hypertension: on lisinopril, coreg and cardizem. #Hyperlipidemia: on statin. #Class II obesity: BMI is 32.8. Complicates acute care, expected recovery and prognosis. DVT prophylaxis: on coumadin. Monitor INR. Charges/Coding Visit Charges Inpatient E&M: 85672 Subs Hosp L2
[2024-12-12 11:58] LABS: Prothrombin Time (Protime)PT. 21.4 SECONDS (11.7-14.9)
--- NOTE | 2024-12-12 15:17 | CASEMGMT ---
Social Work SW met w/pt in room as CM had indicated pt would benefit from some resources for prescription coverage and transportation. SW provided to pt prescription assistance resources, including a list of prescription programs and information for [employer]. SW also provided to pt transportation resources, including [employer], [facility], and [employer]. SW asked pt about if she plans to sign up for a prescription plan this year for next year. Pt states she doesn't know, but she gets calls all the time. SW asked pt if she would want to speak w/Payton from [employer] about looking into applying for Medicaid, pt states no. SW spoke w/pt about anxiety and depression, if she has ever been diagnosed with either, pt states that she is just angry. SW attempted to offer support. SW asked if she is interested in counseling, pt states no. SW asked if she ever took medication for anxiety, pt states it did not help. SW asked pt about discharge plan. Pt does not want to go anywhere, such a SNF, for rehab, will only go home. SW asked pt about HHC, pt declined referral. SW asked pt about [facility], pt is not interested. SW asked pt about Meals on Wheels, she would only want them if they are free as she cannot afford them. SW explained will make a referral and let them know this so they can review income when they call. Pt also may be agreeable to a walker. She states she may have one but she may have burned it. She may be open to a walker if she can get it through insurance. (CM will follow for walker). Pt told SW her credit is ruined as she bought tools for her son and he did not pay for them. SW offered support. Pt also state she gets many calls on her phone, and expressed frustration w/this. SW gave pt the website to put her number on the Do Not Call list. SW did make a referral for [employer]. SW remains available for any additional resources as needed. RAKESH Aldridge
[2024-12-12 15:45] VITALS: BP 113/68; PULSE 77; RESP 16; TEMP 36.7; O2SAT 94
--- NOTE | 2024-12-12 15:50 | RAD_ITS ---
PROCEDURE: KNEE 4 OR MORE VIEWS 12/12/2024 REASON FOR EXAM: BILATERAL KNEE PAIN TECHNIQUE: KNEE 4 OR MORE VIEWS COMPARISON: None. FINDINGS: No evidence of acute fracture or dislocation. Moderate medial compartment joint space narrowing with small marginal osteophytes. Mild joint space narrowing of the patellofemoral and lateral joint spaces of the small marginal osteophytes. No evidence of knee joint effusion. RAD/Knee 4 or More Views IMPRESSION: No acute osseous abnormalities. Osteoarthrosis. Reading Location: [id number]
--- NOTE | 2024-12-12 15:50 | RAD_ITS ---
PROCEDURE: KNEE 4 OR MORE VIEWS 12/12/2024 REASON FOR EXAM: BILATERAL KNEE PAIN TECHNIQUE: KNEE 4 OR MORE VIEWS COMPARISON: None. FINDINGS: No evidence of acute fracture or dislocation. Severe medial compartment joint space narrowing with moderate marginal osteophytes. Moderate patellofemoral compartment joint space narrowing. Mild lateral compartment joint space narrowing. No knee joint effusion. RAD/Knee 4 or More Views IMPRESSION: No acute osseous abnormalities. Osteoarthrosis. Reading Location: [id number]
[2024-12-12 21:35] VITALS: BP 132/70; PULSE 98; RESP 18; TEMP 36.5; O2SAT 96
[2024-12-13] VITALS (12 sets, daily range): BP systolic 111–167; BP diastolic 55–152; PULSE 72–115; RESP 14–27; TEMP 35.8–36.6; O2SAT 85–98; BMI 32.3
--- NOTE | 2024-12-13 00:06 | PCM.HOSP.N ---
Hospitalist Note Patient with recurrent pause, 3.28 seconds, asymptomatic, BB already held.
[2024-12-13 06:48] LABS: Hematocrit 36.9 % (37-47); Hemoglobin 10.3 g/dL (12.0-15.0); Immature Granulocytes Count 0.020 X10^3/uL (0.0-0.0); Mean Corp Hgb Conc 27.9 g/dL (32-36); Mean Corpuscular Volume 72.2 fL (81-99); Mean Platelet Vol. 9.7 fl (6.2-12.0); NRBC Flagged by Analyzer 0.3 % (0-5); POSITIVE MORPHOLOGY YES; Platelet Count 286 K/mm3 (150-450); RBC Distribution Width CV 22.5 % (11.6-14.6); RBC Distribution Width SD 56.9 fl (35.1-43.9); Red Blood Count 5.11 M/mm3 (4.2-5.4); White Blood Count 6.5 K/mm3 (4.4-11.0)
[2024-12-13 06:51] LABS: Differential Indicated SCAN CRITERIA MET
[2024-12-13 07:23] LABS: Anion Gap 12 (5-15); BUN 23 mg/dL (4-19); BUN/Creat Ratio 24.9 RATIO (10-20); Calcium,Total 8.9 mg/dL (7.6-11.0); Carbon Dioxide 27.8 mmol/L (21.0-32.0); Chloride 101 mmol/L (98-108); Estimated Creatinine Clearance 68.13 ml/min (50-250); Glucose 99 mg/dL (70-99); Potassium 3.7 mmol/L (3.3-5.1)
[2024-12-13 07:43] LABS: Anisocytosis 1+
--- NOTE | 2024-12-13 08:21 | PCM.CONS.C ---
Assessment & Plan Assessment/Plan (1) Atrial fibrillation: PLAN: Patient has atrial fibrillation with a controlled ventricular response rate and significant ventricular pauses. My recommendation at this time would be to hold the 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 and to place a implantable defibrillator with pacemaker backup due to the reduced ejection fraction. This has been discussed with nougat cutter machine who agrees and will be performing the procedure. I also had an extensive discussion with the patient and also spoke for over 15 minutes with the patient's Sister Ct on the phone. All in agreement at this time. (2) Cardiac LV ejection fraction of 20-34%: PLAN: Patient with significant left ventricular systolic dysfunction. Her QRS complex is narrow and so she will have an implantable defibrillator as primary prevention and then will be able to start guideline directed medical therapy with beta-latisha, ARNI, SGLT2 inhibitor, and diuretic. (3) Acute exacerbation of CHF (congestive heart failure): PLAN: Will institute guideline directed medical therapy as noted above. (4) Essential hypertension: PLAN: Will institute guideline directed medical therapy as noted above. 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 HPI Consult Data Date of Consult: 12/13/24 HPI Narrative HPI Narrative: ANDREIA ELAINE, is a 69 F who we are asked to see due to persistent pauses over 3.5 seconds. She was a previous patient of the heart group service with a history of permanent atrial fibrillation. She had been seen in August of this year after she had had a 30 pound weight gain over 3 months and was taking increasing doses of her diuretics. She had had an elevated proBNP and was also noted to be mildly anemic. At that time she was noted to be in atrial fibrillation with a rapid ventricular response rate was put on 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 as well as beta-latisha. She had had a cardiac catheterization in October 2022 and at that time demonstrated normal left ventricular ejection fraction of 60% normal LAD, and mild disease in the circumflex and right coronary arteries. Repeat echocardiogram done in August demonstrated marked reduction in low ventricular ejection fraction estimated to be 20% with severe global LV dysfunction. She has had some shortness of breath but no dizziness no diaphoresis no near-syncope she has also had pedal edema. Telemetry monitoring demonstrated significant pauses and cardiology was called for further evaluation and management. [facility] Medical History Ulcer of left lower extremity with fat layer exposed Congestive heart failure Bradycardia Heart failure with reduced ejection fraction Cardiac LV ejection fraction of 20-34% Irregular heart beat Atrial fibrillation Former smoker Ulcer of right lower extremity Lower extremity edema Dyspnea on exertion Diastolic heart failure Acute lumbar myofascial strain Acute thoracic myofascial strain Back pain Debility, unspecified Return to work evaluation Right renal mass Angina of effort Acute hypokalemia Chest pain Non-ST elevation AL (NSTEMI) Atrial flutter Borderline type 2 diabetes mellitus GERD (gastroesophageal reflux disease) Acute low back pain Elevated random blood glucose level Anxiety and depression Menopausal disorder Melanoma Preoperative clearance Flu vaccine need Current use of [facility] 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 Obesity Elevated troponin (08/09/20) Hyperlipidemia Nicotine dependence History of pulmonary embolus (PE) (08/10/20) Essential hypertension Wound of left lower extremity Insomnia Change in skin mole Heart failure with preserved ejection fraction Shortness of breath Osteoarthritis of left knee Chronic pain of left knee Tobacco use Arthritis Acute hypoxemic respiratory failure (08/09/20) Home Medications Medication Instructions Recorded Last Taken Type acetaminophen 500 mg tablet 1,000 mg (2 x 500 mg) PO .Q 8h PRN 11/18/24 Unknown Rx fever or pain 30 days #30 tabs atorvastatin 20 mg tablet 20 mg PO QHS #90 tabs 11/18/24 Unknown Rx carvedilol 3.125 mg tablet 3.125 mg PO BIDCM 1 month #60 tabs 11/18/24 Unknown Rx furosemide 40 mg tablet 40 mg PO BIDLX 30 days #60 tabs 11/18/24 Unknown Rx lidocaine HCl 4 % lotion 1 applic topical BID-QID PRN pain 11/18/24 Unknown Rx #118 mL lisinopril 20 mg tablet 20 mg PO DAILY 30 days #30 tabs 11/18/24 Unknown Rx potassium chloride 20 mEq 20 meq PO DAILY SUPPLEMENT #30 tabs 11/18/24 Unknown Rx tablet,extended release warfarin 5 mg tablet 5 mg PO QDAY #60 tabs 11/18/24 Unknown Rx mupirocin 2 % topical ointment 1 applic topical BID Infection #22 11/25/24 Unknown Rx (Centany) grams sulfamethoxazole 800 1 tab PO BID Infection #14 tabs 11/25/24 Unknown Rx mg-trimethoprim 160 mg tablet (Bactrim DS) Allergy/AdvReac Type Severity Reaction Status Date / Time latex Allergy Mild rash Verified 12/10/24 18:09 trazodone Allergy Mild Tingling Verified 12/10/24 18:09 coconut Allergy Unknown PT UNABLE Verified 12/10/24 18:09 TO RESPOND-NEEDS F/U Fish Containing Products Allergy Unknown PT UNABLE Verified 12/10/24 18:09 TO RESPOND-NEEDS F/U propoxyphene (From Allergy Hives Verified 12/10/24 18:09 Darvocet-N) acetaminophen (From AdvReac Intermediate Nausea/Vom/ Verified 12/10/24 18:09 Darvocet-N) Diarrhea lactose (dairy lactose) AdvReac Intermediate Nausea/Vom/ Verified 12/11/24 08:52 Diarrhea Family History Mother Anxiety Arthritis Depression Hypertension Father Anxiety Arthritis Depression Hypertension Other Thyroid disorder Surgical History H/O tubal ligation History of cholecystectomy H/O elbow surgery Social History housing: house Smoking Status: Former smoker alcohol intake: never substance use type: does not use what type of physical activity do you participate in: walking frequency: 5-6 times per week ROS Constitutional Constitutional: Denies fever(s) or weight loss Eyes Eyes: Reports systems reviewed and no addt'l complaints, except as documented ENT HEENT: Reports systems reviewed and no addt'l complaints, except as documented Cardiovascular Cardiovascular: Reports dyspnea at rest and dyspnea on exertion; Denies chest pain at rest, chest pain with activity, edema, palpitations or paroxysmal nocturnal dyspnea Respiratory/Chest Respiratory/Chest: Denies dyspnea on exertion, productive cough, shortness of breath at rest or shortness of breath with exertion Gastrointestinal Gastrointestinal: Denies change in bowel habits, nausea, vomiting or weight changes Genitourinary Genitourinary: Denies difficulty urinating Musculoskeletal Musculoskeletal: Denies joint stiffness or muscle weakness Integumentary Integumentary: Denies lesions Neurologic Neurologic: Denies dizziness or syncope Psychiatric Psychiatric: Denies anxiety Endocrine Endocrinology: Denies excessive sweating or fatigue Hematologic/Lymphatic Hematologic/Lymphatic: Denies anemia Allergic/Immunologic Allergic/Immunologic: Denies seasonal rhinorrhea Physical Exam Const alert, oriented x3 and no apparent distress General Appearance: cooperative HEENT hearing grossly normal bilaterally Head and Scalp: atraumatic Eyes EOMs intact bilaterally Neck General: normal visual inspection Chest inspection of chest normal and palpation of chest normal Resp normal respiratory effort Auscultation: clear to auscultation bilaterally Cardio S1 normal heart sound and S2 normal heart sound Jugular Venous Distention: JVD Rhythm: abnormal rhythm irregularly irregular GI normal to inspection, nondistended, normoactive bowel sounds Extremity normal capillary refill and no pedal edema General Extremity: edema bilateral Peripheral Pulses: Yes pulses 2+ throughout and femoral pulses present Skin no rashes or lesions noted Neuro oriented x3 and CN's II-XII intact bilaterally Psych Appearance: grossly normal and appropriate Risk Stratification Risk Stratification Applicable: No Objective Data Vital Signs: Vital Signs Temp Pulse Resp BP Pulse Ox O2 Del Method O2 Flow Rate 96.6 F L 72 18 128/84 H 94 Room Air 2 12/13/24 03:48 12/13/24 03:48 12/13/24 03:48 12/13/24 03:48 12/13/24 03:48 12/13/24 03:48 12/10/24 19:08 Oxygen Flow Rate (L/min) 2 Oxygen Delivery Method Room Air Weight: 200 lb 6.403 oz Body Mass Index (BMI) 32.3 Intake & Output: Intake and Output for Last 24 Hours 12/11/24 12/12/24 12/13/24 23:59 23:59 23:59 Intake Total 1200 / 1200 790 / 790 Output Total 1000 / 1000 700 / 700 Balance 200 / 200 90 / 90 Lab / Micro Data 12/13/24 05:15 12/13/24 05:15 Labs: Laboratory Results - last 24 hr 12/12/24 07:41: Platelet Estimate A, Polychromasia 1+, Anisocytosis 2+, Macrocytosis 1+, Ovalocytes 1+, Sodium 138, Potassium 3.7, Chloride 100, Carbon Dioxide 25.8, Anion Gap 12, BUN 21 H, Creatinine 0.99, Estim Creat Clear Calc 62.76, Est GFR (MDRD) Non-Af 63, BUN/Creatinine Ratio 21.3 H, Glucose 113 H, Calcium 8.8 12/12/24 11:31: PT 21.4 H, INR 1.8 12/12/24 11:52: POC Glucose 131 H 12/13/24 05:15: WBC 6.5, RBC 5.11, Hgb 10.3 L, Hct 36.9 L, MCV 72.2 L, MCH 20.2 L, MCHC 27.9 L, RDW Std Deviation 56.9 H, RDW Coeff of Ele 22.5 H, Plt Count 286, MPV 9.7, Immature Gran % (Auto) 0.300, Neut % (Auto) 64.0, Lymph % (Auto) 23.5, Gregg % (Auto) 9.9, Eos % (Auto) 1.5, Baso % (Auto) 0.8, Absolute Neuts (auto) 4.2, Absolute Lymphs (auto) 1.54, Nucleated RBC % 0.3, Platelet Estimate A, Anisocytosis 1+, Sodium 141, Potassium 3.7, Chloride 101, Carbon Dioxide 27.8, Anion Gap 12, BUN 23 H, Creatinine 0.91, Estim Creat Clear Calc 68.13, Est GFR (MDRD) Non-Af 70, BUN/Creatinine Ratio 24.9 H, Glucose 99, Calcium 8.9 Cardiology Labs/Tests 12/12/24 07:41: Sodium 138, Potassium 3.7, Chloride 100, Carbon Dioxide 25.8, Anion Gap 12, BUN 21 H, Creatinine 0.99, Est GFR (MDRD) Non-Af 63, BUN/Creatinine Ratio 21.3 H, Glucose 113 H, Calcium 8.8 12/12/24 11:31: PT 21.4 H, INR 1.8 12/13/24 05:15: WBC 6.5, RBC 5.11, Hgb 10.3 L, Hct 36.9 L, MCV 72.2 L, MCH 20.2 L, MCHC 27.9 L, Plt Count 286, MPV 9.7, Immature Gran % (Auto) 0.300, Neut % (Auto) 64.0, Lymph % (Auto) 23.5, Gregg % (Auto) 9.9, Eos % (Auto) 1.5, Baso % (Auto) 0.8, Absolute Neuts (auto) 4.2, Nucleated RBC % 0.3, Sodium 141, Potassium 3.7, Chloride 101, Carbon Dioxide 27.8, Anion Gap 12, BUN 23 H, Creatinine 0.91, Est GFR (MDRD) Non-Af 70, BUN/Creatinine Ratio 24.9 H, Glucose 99, Calcium 8.9 Rhythm: EKG: ECHO: Stress Test: Cardiac Cath: PCI: CT Surgery: Holter monitor: EPS: PPM: CXR: Chest CT Scan: Radiography Diagnostic Testing: Radiology Impression Knee X-Ray 12/12/24 15:50 IMPRESSION: No acute osseous abnormalities. Osteoarthrosis. Reading Location: [facility] Knee X-Ray 12/12/24 15:50
[2024-12-13 09:03] LABS: Prothrombin Time (Protime)PT. 26.1 SECONDS (11.7-14.9)
--- NOTE | 2024-12-13 10:18 | EX.DEFIBPR_ITS ---
Defibrillator Procedure Note Defibrillator Procedure Note Procedure: Successful dual chamber ICD implantation. Indication: Primary Prevention Nonischemic Cardiomyopathy NYHA Class II LVEF 20% Persistent atrial fibrillation with tachycardia Symptomatic bradycardia Findings: The patient was brought to the EP LAB in the fasting well-hydrated state and prepped and draped in the usual sterile fashion. Local anesthesia with 2% lidocaine was used to achieve a numbing effect in the LEFT pectoral region. In addition, iv anesthesia was administered by anesthesia personnel present throughout the case. An incision was made 2 fingerbreadths below the left clavicle and a pocket was made by blunt dissection. Bleeding vessels were coagulated using electrocautery. Using modified Seldinger technique, two guidewires was placed into the left axillary vein down to the low RA. Through a venous sheath the RV lead was passed into the RV apex. The active screw mechanism was extended. Adequate pacing and sensing thresholds were measured. Diaphragmatic stimulation was excluded with high output pacing. The introducer sheath was peeled away. Next using the second guidewire a introducer sheath was placed into the central circulation. Through the venous sheath an active-fixation right atrial lead was passed in the right atrium the active screw mechanism was deployed and the lead was attached to the myocardium. Adequate pacing and sensing thresholds were measured. Diaphragmatic stimulation was excluded with high output pacing. The in troducer sheath was peeled away. The leads were secured in the pocket using 2-0 silk with initial suture tie made to the pectoralis muscle and fascia, followed by wrapping around and tying securely to the lead sleeves. In addition, a purse string suture was tied around the leads entry site with 2-0 Vicryl for hemostasis. The leads were connected to the dual chamber ICD pulse generator. The pocket was irrigated with antibiotic solution. The pulse generator was placed into the pocket with redundant lead allowed to form a stephanie coil behind the pulse generator. The device header was secured in place with a leash using a nonabsorbable suture. The pocket was closed in 2 layers with 2-0 and 3-0 Vicryl for the subcutaneous and subcuticular layers respectively. Hemostasis was achieved with manual pressure. Upon closure no bleeding was noted. A sterile dressing was applied. The patient was recovered and sent to their room in stable condition. Complications: none. Specimens: none. Estimated blood loss: 10mL. Implant Date News Librarian Model Name Marcelo. Model Serial No. Location 12/13/2024 [employer] D233: VIGILANT EL ICD DF4 - DR D233 [id number] L - Subcutaneous 12/13/2024 [employer] 7841: INGEVITY+ IS-1 Bi Positive Fix RA/RV 52cm Bi [id number] RA 12/13/2024 [employer] 0673: RELIANCE 4-FRONT S Active Fix Single Coil 64cmBi [id number] [id number] RV Measured Data Device Measurements Lead Intrinsic Threshold Imp. Shock Imp. Current RA 3.8 mV Afib 724 ? 0.0 mA RV 11.2 mV 0.3V @ 0.4ms 893 ? 60 ? 0.3 mA DFT Testing Information DFT Testing not Performed. Programmed Parameters Mode: DDD RYTHMIQ: OFF LRL / MTR : 60 ppm / 130 ppm PAV Delay: 220ms - 300ms ANT Delay: 220ms - 300ms AV Search + : On - 400ms Sensitivity Output RA 0.25 mV 3.5V @ 0.4ms RV 0.6 mV 3.5V @ 0.4ms . PVARP: 240ms - 300ms ATR Mode Switch: On - 170 bpm Atrial Flutter Response: On VRR: Off Rate Smoothing: Off Rate Hysteresis: Off HeartLogic: On ICD Therapy Parameters Zone Rate Duration Detection Enhancements Therapy VF 220 bpm 2.5 sec. Quick Convert, 41J x 1, 41J x 1, 41J x 6 VT 185 bpm 5 sec. Rhythm ID ATP, 41J x 1, 41J x 1, 41J x 4 Lead Polarity: Initial Shock Vector: Distal Coil to Can
--- NOTE | 2024-12-13 10:34 | PCM.PROGNOTE ---
Subjective Subjective Patient seen and examined with her nurse by her bedside. She had no active complaints today. She did have increasing cardiac pauses up to 10 seconds yesterday so cardiology was consulted as she is due to go for pacemaker/defibrillator today. Patient admits to feeling a bit anxious about the procedure but is agreeable to having it done. She has otherwise remained hemodynamically stable. Objective Data Objective Data Vital Signs: Vital Signs Temp Pulse Resp BP Pulse Ox O2 Del Method O2 Flow Rate 96.6 F L 72 18 128/84 H 94 Room Air 2 12/13/24 03:48 12/13/24 03:48 12/13/24 03:48 12/13/24 03:48 12/13/24 03:48 12/13/24 03:48 12/10/24 19:08 Oxygen Flow Rate (L/min) 2 Oxygen Delivery Method Room Air Weight: 200 lb 6.403 oz Body Mass Index (BMI) 32.3 Intake & Output: Intake and Output for Last 24 Hours 12/11/24 12/12/24 12/13/24 23:59 23:59 23:59 Intake Total 1200 / 1200 790 / 790 Output Total 1000 / 1000 700 / 700 Balance 200 / 200 90 / 90 Lab / Micro Data 12/13/24 05:15 12/13/24 05:15 Labs: Laboratory Results - last 24 hr 12/12/24 11:31: PT 21.4 H, INR 1.8 12/12/24 11:52: POC Glucose 131 H 12/13/24 05:15: WBC 6.5, RBC 5.11, Hgb 10.3 L, Hct 36.9 L, MCV 72.2 L, MCH 20.2 L, MCHC 27.9 L, RDW Std Deviation 56.9 H, RDW Coeff of Ele 22.5 H, Plt Count 286, MPV 9.7, Immature Gran % (Auto) 0.300, Neut % (Auto) 64.0, Lymph % (Auto) 23.5, [place] % (Auto) 9.9, Eos % (Auto) 1.5, Baso % (Auto) 0.8, Absolute Neuts (auto) 4.2, Absolute Lymphs (auto) 1.54, Nucleated RBC % 0.3, Platelet Estimate A, Anisocytosis 1+, Sodium 141, Potassium 3.7, Chloride 101, Carbon Dioxide 27.8, Anion Gap 12, BUN 23 H, Creatinine 0.91, Estim Creat Clear Calc 68.13, Est GFR (MDRD) Non-Af 70, BUN/Creatinine Ratio 24.9 H, Glucose 99, Calcium 8.9 12/13/24 08:45: PT 26.1 H, INR 2.3 Radiography Diagnostic Testing: Radiology Impression Knee X-Ray 12/12/24 15:50 IMPRESSION: No acute osseous abnormalities. Osteoarthrosis. Reading Location: [facility] Knee X-Ray 12/12/24 15:50 IMPRESSION: No acute osseous abnormalities. Osteoarthrosis. Reading Location: [facility] Physical Exam Const alert, oriented x3 and no apparent distress Constitutional Narrative: Class I obesity General Appearance: cooperative HEENT normocephalic, head/scalp atraumatic, moist oral mucous membranes and oropharynx normal Neck no lymphadenopathy and supple Resp normal respiratory effort, normal air movement and clear to auscultation bilaterally Cardio regular rate, regular rhythm, S1 normal heart sound, S2 normal heart sound and no murmurs GI normal to inspection, nondistended, normoactive bowel sounds, soft to palpation and non-tender Extremity General Extremity: no tenderness to palpation of joints or extremities Skin General Skin Exam: no breakdown Neuro CN's II-XII intact bilaterally and no focal motor deficits Motor Exam: strength 5/5 throughout and general weakness Psych thought process normal and cooperative Appearance: appropriate Assessment & Plan Assessment/Plan (1) Congestive heart failure: PLAN: Plan #Acute decompensated HFrEF has a history of HFrEF. On IV lasix 40mg bid. Had not been compliant with her meds as she did not have money to purchase more lasix once she run out. has known EF of 20% and severe global hypokinesis and moderately enlarged left atriium and mild moderate LVI. will switch to PO lasix today #Paroxysmal afib currently rate controlled. on coumadin. Monitor INR. her cardiac pauses worsened overnight, extending up to 10 seconds. Cardiology therefore consulted and patient to have a defibrillator/pacemaker inserted today # Bilateral knee pain in the setting of osteoarthritis. resolved. Bilateral knee xrays showed no acute pathology. ON PO tylenol, oxycodone prn. PT/OT On board. #Hypertension: on lisinopril, coreg and cardizem. Coreg and cardizem on hold due to bradycardia #Hyperlipidemia: on statin. #Class II obesity: BMI is 32.8. Complicates acute care, expected recovery and prognosis. DVT prophylaxis: on coumadin. Monitor INR. INR is therapeutic at 2.3 today Charges/Coding Visit Charges Inpatient E&M: 49092 Subs Hosp L2
[2024-12-13] MEDS: Potassium Chloride Oral Tablet 20 MEQ PO (12:31)
[2024-12-13] MEDS: HYDROcodone Bitartrate/Apap 5/325 Tablet PO (12:31)
[2024-12-13 15:22] LABS: Mucous, Urine 0 SEEN /hpf (<or=2+)
[2024-12-13 15:41] LABS: Color, Urine Straw (Yellow); Glucose, Dipstick Normal (Normal); Ketone-Dipstick Negative (Negative); Leukocyte Esterase-Dipstick Negative /ul (Negative); Nitrite-Dipstick Negative (Negative); Occult Blood-Urine Negative /ul (Negative); Protein-Dipstick Negative (Negative); Specific Gravity, Urine 1.010 (1.002-1.030); Urine Bilirubin Dipstick Negative (Negative)
[2024-12-13] MEDS: Cefazolin 2 GM in 0.9% Normal Saline (100mL Bag) 100 ML IV (15:52)
[2024-12-13 16:26] LABS: Red Blood Cells-Urine 0-5 SEEN /hpf (0-5); Squamous Epithelial Cells - UA 0-5 SEEN /hpf (5-10)
--- NOTE | 2024-12-13 17:32 | RAD_ITS ---
PROCEDURE: CHEST PA AND LATERAL 12/13/2024 REASON FOR EXAM: EVALUATE LEAD POSITION, POST PERMANENT ICD PLCMNT TECHNIQUE: CHEST PA AND LATERAL COMPARISON: 12/10/2024. FINDINGS: Mild vascular indistinctness suggestive of mild findings of edema. The heart is enlarged. Left chest ICD with leads overlying the right atrium and ventricle. No acute osseous abnormalities. Right axillary surgical clips. RAD/Chest PA and Lateral IMPRESSION: Probable mild edema in the setting of cardiomegaly. ICD as above. Reading Location: [id number]
[2024-12-14 03:22] VITALS: BP 148/75; PULSE 96; RESP 18; TEMP 36.2; O2SAT 95
--- NOTE | 2024-12-14 04:45 | RAD_ITS ---
PROCEDURE: CHEST PA AND LATERAL 12/14/2024 REASON FOR EXAM: POST PERMANENT ICD/PACEMAKER TECHNIQUE: CHEST PA AND LATERAL COMPARISON: 12/13/2024 FINDINGS: Cardiac enlargement. Tortuous aorta. Unremarkable cardiac device. Well inflated lungs. No consolidation, effusion or pneumothorax. Surgical clips right breast. RAD/Chest PA and Lateral IMPRESSION: Unremarkable pacer placement. Reading Location: [facility]
[2024-12-14 05:15] VITALS: BMI 31.5
[2024-12-14 05:37] LABS: Hematocrit 36.4 % (37-47); Hemoglobin 10.4 g/dL (12.0-15.0); Immature Granulocytes Count 0.020 X10^3/uL (0.0-0.0); Mean Corp Hgb Conc 28.6 g/dL (32-36); Mean Corpuscular Volume 71.7 fL (81-99); Mean Platelet Vol. 9.9 fl (6.2-12.0); NRBC Flagged by Analyzer 0 % (0-5); POSITIVE MORPHOLOGY YES; Platelet Count 231 K/mm3 (150-450); RBC Distribution Width CV 22.5 % (11.6-14.6); RBC Distribution Width SD 56.0 fl (35.1-43.9); Red Blood Count 5.08 M/mm3 (4.2-5.4); White Blood Count 6.1 K/mm3 (4.4-11.0)
[2024-12-14 05:45] LABS: Differential Indicated SCAN CRITERIA MET
[2024-12-14 06:22] LABS: Anion Gap 16 (5-15); BUN 20 mg/dL (4-19); BUN/Creat Ratio 21.2 RATIO (10-20); Calcium,Total 8.8 mg/dL (7.6-11.0); Carbon Dioxide 22.9 mmol/L (21.0-32.0); Chloride 98 mmol/L (98-108); Estimated Creatinine Clearance 65.11 ml/min (50-250); Glucose 94 mg/dL (70-99); Potassium 4.0 mmol/L (3.3-5.1)
[2024-12-14 07:13] LABS: Anisocytosis 2+; Differential Comment SCANNED
[2024-12-14 08:43] VITALS: BP 139/95; PULSE 82; RESP 15; TEMP 36.7; O2SAT 95
[2024-12-14] MEDS: Potassium Chloride Oral Tablet 20 MEQ PO (08:54)
[2024-12-14] MEDS: Ensure Plus High Protein 120 ML LIQUID PO (08:54)
[2024-12-14] MEDS: 0.9% Saline Lock 10 ML Syringe IV (08:56)
--- NOTE | 2024-12-14 10:01 | CASEMGMT ---
Addendum entered by Tripp Dubois 12/14/24 13:55: Script received from Dr Escobedo for jennifer-walker and provided to pt, along w/list of local DME companies. Instructed on use of script. Addendum entered by Tripp Dubois 12/14/24 13:35: JEAN MALDONADO to room to talk w/pt. Pt states she has spoken w/her daughter, Jolene, and they have made arrangements for her to dc home to Jolene's house, and she wants to discharge today. Pt states Jolene lives in [place] and has a ramp entrance. She again declines wanting to dc to SNF. She also declines wanting any HHC or OP therapy. She was made aware there is a discharge order in and she states is glad to hear that. Discussed DME needs. Pt would like to get a jennifer-walker, stating she felt she did fine with it today when working with therapy and is aware this is not an item that is available for RN CM to get from a DME company on the weekend and she states she is okay with that, stating her daughter can assist her. Pt agreeable to RN OJEL talking w/Jolene. Pt called Jolene and put her on speaker phone. Jolene made aware discharge order is in. She states she will be coming in to take pt home today and verifies pt will be going to her home (Jolene's) for awhile. She was made aware jennifer-walker recommended by therapy and pt would like to get one, but that this can not be obtained by CM on the weekend. Pt and Jolene made aware a script will be provided and they can take to any location of choice. Made aware of some locations that have jennifer-walkers. She and pt voice understanding. Pt agreeable to having Jolene present when nurse goes over discharge instructions. Jolene states she will come up to PCU to be present for this. RNSamina, made aware. Pt and Jolene deny having any other discharge needs or concerns. Plan: Home to daughterSrinath. Pt to be provided w/script for jennifer-walker. Addendum entered by Tripp Dubois 12/14/24 11:29: Therapy has worked w/pt today. JEAN MALDONADO informed by therapy that pt is unsafe to discharge home alone, stating she is very unsteady and impulsive & SNF is recommended. RN CM to room to discuss therapy and recommendations. Pt sitting up in chair in room. Pt states she feels that she is being pressured into going somewhere. RN CM informed pt there are concerns for her safety discharging home alone, but that ultimately the decision is hers. Initially she stated, "I've made my decision. I'm going home". Then pt stated, "I just want everyone to back off and give me time to think about this". She states she plans to also call her daughter to talk to her about this. She does not want this RN CM calling her at this time. Pt agreeable to RN CM returning around 1 PM to discuss discharge plan w/her further. Dalila SCHULTZ RN JOEL Original Note: RN JOEL note: Per Dr Escobedo and Dr Munoz, pt medically ready for discharge today. PT/OT to work w/pt at this time, as pt is post-pacemaker placement and has sling to left arm, unable to use walker. JEAN MALDONADO to room to discuss discharge plan & broached topic of SNF. Pt states she really wants to discharge home, stating, "I don't want to be ripped off", voicing concern about cost. Pt educated on MCR and 20-day SNF benefit after having 3 [place] qualifying stay. Pt then stated, "I don't want anyone breaking into my home". Inquired if there is anyone that could stop by her home to check on things. She states she would trust her sister, Ct, but that Ct works a lot and she doesn't want to ask her to do that. Pt states she does have 8 steps to enter into her home but that she can use the handrail to go up, but RN CM noted in PT eval that pt stated handrail is "about to fall apart". Pt states she has been wanting to contact [employer] about a ramp entrance. Information provided for [employer]. Pt states she will think about going somewhere, but she really prefers to discharge home. She is aware therapy will be working w/her this AM and this RN CM will f/u with her afterwards. A list of SNF providers including quality and resource use data and consistent with the patient’s preferred geographic region, medical needs, and insurance network were provided from the [employer] [facility]. Pt did state it may be an option for her to go to her daughters' home for a couple days. Dalila SCHULTZ RN CM.
--- NOTE | 2024-12-14 10:52 | PN.CARD_ITS ---
Subjective Subjective Patient seen and evaluated. Doing well status post defibrillator placement Objective Data Vital Signs: Vital Signs Temp Pulse Resp BP Pulse Ox O2 Del Method O2 Flow Rate 98.1 F 82 15 139/95 H 95 Room Air 2 12/14/24 08:43 12/14/24 08:43 12/14/24 08:43 12/14/24 08:43 12/14/24 08:43 12/14/24 08:43 12/13/24 14:00 Oxygen Flow Rate (L/min) 2 Oxygen Delivery Method Room Air Weight: 195 lb 5.273 oz Body Mass Index (BMI) 31.5 Intake & Output: Intake and Output for Last 24 Hours 12/12/24 12/13/24 12/14/24 23:59 23:59 23:59 Intake Total 790 / 790 420 / 420 Output Total 700 / 700 2800 / 4450 1850 / 1850 Balance 90 / 90 -2380 / -4030 -1850 / -1850 Lab / Micro Data 12/14/24 04:37 12/14/24 04:37 Labs: Laboratory Results - last 24 hr 12/13/24 12:37: POC Glucose 79 12/13/24 15:10: Urine Color Straw, Urine Clarity Clear, Urine pH 7.0, Ur Specific [place] 1.010, Urine Protein Negative, Urine Glucose (UA) Normal, Urine Ketones Negative, Urine Occult Blood Negative, Urine Nitrite Negative, Urine Bilirubin Negative, Urine Urobilinogen Normal, Ur Leukocyte Esterase Negative, Urine RBC 0-5 SEEN, Urine WBC 0-5 SEEN, Ur Squamous Epith Cells 0-5 SEEN, Urine Bacteria 0 SEEN, Urine Mucus 0 SEEN 12/13/24 16:20: POC Glucose 132 H 12/14/24 04:37: WBC 6.1, RBC 5.08, Hgb 10.4 L, Hct 36.4 L, MCV 71.7 L, MCH 20.5 L, MCHC 28.6 L, RDW Std Deviation 56.0 H, RDW Coeff of Ele 22.5 H, Plt Count 231, MPV 9.9, Immature Gran % (Auto) 0.300, Neut % (Auto) 65.2, Lymph % (Auto) 22.7, [place] % (Auto) 9.8, Eos % (Auto) 1.3, Baso % (Auto) 0.7, Absolute Neuts (auto) 4.0, Absolute Lymphs (auto) 1.39, Nucleated RBC % 0, Differential Comment SCANNED, Anisocytosis 2+, Sodium 136, Potassium 4.0, Chloride 98, Carbon Dioxide 22.9, Anion Gap 16 H, BUN 20 H, Creatinine 0.94, Estim Creat Clear Calc 65.11, Est GFR (MDRD) Non-Af 67, BUN/Creatinine Ratio 21.2 H, Glucose 94, Calcium 8.8 12/14/24 06:41: POC Glucose 91 Cardiology Labs/Tests 12/13/24 15:10: Urine Color Straw, Urine Clarity Clear, Urine pH 7.0, Ur Specific [place] 1.010, Urine Protein Negative, Urine Glucose (UA) Normal, Urine Ketones Negative, Urine Occult Blood Negative, Urine Nitrite Negative, Urine Bilirubin Negative, Urine Urobilinogen Normal, Ur Leukocyte Esterase Negative, Urine RBC 0-5 SEEN, Urine WBC 0-5 SEEN 12/14/24 04:37: WBC 6.1, RBC 5.08, Hgb 10.4 L, Hct 36.4 L, MCV 71.7 L, MCH 20.5 L, MCHC 28.6 L, Plt Count 231, MPV 9.9, Immature Gran % (Auto) 0.300, Neut % (Auto) 65.2, Lymph % (Auto) 22.7, [place] % (Auto) 9.8, Eos % (Auto) 1.3, Baso % (Auto) 0.7, Absolute Neuts (auto) 4.0, Nucleated RBC % 0, Sodium 136, Potassium 4.0, Chloride 98, Carbon Dioxide 22.9, Anion Gap 16 H, BUN 20 H, Creatinine 0.94, Est GFR (MDRD) Non-Af 67, BUN/Creatinine Ratio 21.2 H, Glucose 94, Calcium 8.8 Rhythm: EKG: ECHO: Stress Test: Cardiac Cath: PCI: CT Surgery: Holter monitor: EPS: PPM: CXR: Chest CT Scan: Radiography Diagnostic Testing: Radiology Impression Chest X-Ray 12/13/24 17:32 IMPRESSION: Probable mild edema in the setting of cardiomegaly. ICD as above. Reading Location: [facility] Chest X-Ray 12/14/24 04:45 IMPRESSION: Unremarkable pacer placement. Reading Location: [place] [address] Physical Exam Const alert, oriented x3 and no apparent distress Constitutional Narrative: Class I obesity General Appearance: cooperative HEENT normocephalic, head/scalp atraumatic, moist oral mucous membranes and oropharynx normal Neck no lymphadenopathy and supple Resp normal respiratory effort, normal air movement and clear to auscultation bilaterally Cardio regular rate, regular rhythm, S1 normal heart sound, S2 normal heart sound and no murmurs GI normal to inspection, nondistended, normoactive bowel sounds, soft to palpation and non-tender Extremity General Extremity: no tenderness to palpation of joints or extremities Skin General Skin Exam: no breakdown Neuro CN's II-XII intact bilaterally and no focal motor deficits Motor Exam: strength 5/5 throughout and general weakness Psych thought process normal and cooperative Appearance: appropriate Assessment & Plan Assessment/Plan (1) Atrial fibrillation: PLAN: Patient has atrial fibrillation with a controlled ventricular response rate and significant ventricular pauses. The patient had a defibrillator pacer placed yesterday. Will hold off on 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 resumption until tomorrow. (2) Cardiac LV ejection fraction of 20-34%: PLAN: Patient with significant left ventricular systolic dysfunction. She underwent a dual-chamber defibrillator placement yesterday. Chest x-ray demonstrates that is under good position and defibrillator check demonstrates excellent function. Will follow-up in our device clinic after discharge. There is a question as to whether she can manage on her own and we may be looking into putting her in the transitional care unit for a few days. Will increase her carvedilol Continue diuretic And add Entresto. (3) Acute exacerbation of CHF (congestive heart failure): PLAN: Will institute guideline directed medical therapy as noted above. (4) Essential hypertension: PLAN: Will institute guideline directed medical therapy as noted above. (5) Thoracoabdominal aortic aneurysm (TAAA): QUALIFIERS: Thoracoabdominal aorta location: supraceliac aorta P resence of rupture: without rupture Qualified Code(s): I71.61 - Supraceliac aneurysm of the abdominal aorta, without rupture PLAN: The above appears to be stable at this time and I would not recommend that we make any changes.
--- NOTE | 2024-12-14 12:53 | DS.PCM_ITS ---
Providers Date of Admission: 12/10/24 Date of Discharge: 12/14/24 Primary Care Physician: Dr. Abdulaziz Ackerman MD Consultations 12/13/24 03:12 Consult: Cardiology Routine Consulting Provider: Felicia Ramesh Reason for Consult: Frequent cardiac pauses. EMERGENT Consult: No MD Notified: Yes Date Notified: 12/13/24 Time Notified: 03:12 Method of Notification: Text Reason For Visit: HF EXAC, PAF RVR Diagnosis Discharge Diagnosis (1) Atrial fibrillation: Status: Chronic Code(s): I48.91 - Unspecified atrial fibrillation (2) Cardiac LV ejection fraction of 20-34%: Status: Chronic Code(s): R93.1 - Abnormal findings on diagnostic imaging of heart and coronary circulation (3) Acute exacerbation of CHF (congestive heart failure): Status: Chronic Code(s): I50.9 - Heart failure, unspecified (4) Essential hypertension: Status: Chronic Code(s): I10 - Essential (primary) hypertension (5) Thoracoabdominal aortic aneurysm (TAAA): Status: Chronic Code(s): I71.60 - Thoracoabdominal aortic aneurysm, without rupture, unspecified Qualifiers: Presence of rupture: without rupture Thoracoabdominal aorta location: s upraceliac aorta Qualified Code(s): I71.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 * On IV lasix 40mg bid. Had not been compliant with her meds as she did not have money to purchase more lasix once she run out. * has known EF of 20% and severe global hypokinesis and moderately enlarged left atriium and mild moderate LVI. * will switch to PO lasix today * #Paroxysmal afib * currently rate controlled. * on coumadin. Monitor INR. * her cardiac pauses worsened overnight, extending up to 10 seconds. Cardiology therefore consulted and patient to have a defibrillator/pacemaker inserted today * * * # Bilateral knee pain in the setting of osteoarthritis. resolved. Bilateral knee xrays showed no acute pathology. ON PO tylenol, oxycodone prn. PT/OT On board. #Hypertension: on lisinopril, coreg and cardizem. Coreg and cardizem on hold due to bradycardia #Hyperlipidemia: on statin. #Class II obesity: BMI is 32.8. Complicates acute care, expected recovery and prognosis. DVT prophylaxis: on coumadin. Monitor INR. INR is therapeutic at 2.3 today Medications at Discharge Home Medications acetaminophen 500 mg tablet 1,000 mg (2 x 500 mg) PO .Q 8h PRN fever or pain 30 days #30 tabs 11/18/24 atorvastatin 20 mg tablet 20 mg PO QHS #90 tabs 11/18/24 furosemide 40 mg tablet 40 mg PO BIDLX 30 days #60 tabs 11/18/24 lidocaine HCl 4 % lotion 1 applic topical BID-QID PRN pain #118 mL 11/18/24 lisinopril 20 mg tablet 20 mg PO DAILY 30 days #30 tabs 11/18/24 potassium chloride 20 mEq tablet,extended release 20 meq PO DAILY SUPPLEMENT #30 tabs 11/18/24 warfarin 5 mg tablet 5 mg PO QDAY #60 tabs 11/18/24 mupirocin 2 % topical ointment (Centany) 1 applic topical BID Infection #22 grams 11/25/24 carvedilol 6.25 mg tablet 6.25 mg PO BIDCM #60 tabs 12/14/24 sacubitril 24 mg-valsartan 26 mg tablet (Entresto) 1 tab PO BID #60 tabs 12/14/24 Hospital Course Operations None Procedures 2-D Echocardiogram and - (ICD insertion) Summary of Care Provided Minutes Spent on Discharge: 45 Hospital Course: Patient is a 69-year-old female with past medical history as outlined was admitted to the ED on 12/10/2024 with a complaint of shortness of breath which had been going on for several days. She had run out of money and had not been able to purchase her Lasix for several days. He had recently been admitted in August 2024 for heart failure with reduced ejection fraction and paroxysmal A-fib with RVR with intermittent bradycardia and pauses. At that time plan was for possible future pacemaker for tachybradycardia syndrome and she had had a Holter monitor placed on discharge but she did not follow-up with cardiology subsequently. On admission this time proBNP was elevated at 6070 and chest x- ray showed mild edema in the setting of cardiomegaly. Initial troponin was 34 with delta troponin of 38. INR was 1.8. EKG showed A-fib with heart rate of 124 and occasional PVCs. She was admitted and managed for acute exacerbation of heart failure with reduced ejection fraction. She was diuresed with IV Lasix. Her shortness of breath did improve and she felt better. However she did have some cardiac pauses and despite her beta-latisha being held the pauses persisted and went up to 10 seconds in duration. Cardiology was therefore consulted and she had an ICD/pacemaker inserted on 12/13/2024. She tolerated the procedure well. 2D echo from previous admission showed EF of 20%. Entresto was added on and she was continued on her diuretic. She is to follow-up with her primary care doctor and cardiology within 1 to 2 weeks. Of note her carvedilol was increased to 6.25 mg twice daily. Patient was counseled that she would benefit from a few days in the rehab facility but patient adamantly refused and insisted on going home. She was therefore discharged home on 12/14/2024. Patient seen and examined prior to discharge. She had no active complaints and was eager to be discharged home. Labs and vitals reviewed. Home medication reviewed and reconciled. Physical Exam Const alert, oriented x3 and no apparent distress Constitutional Narrative: Class I obesity General Appearance: cooperative and comfortable Orientation / Consciousness: awake HEENT normocephalic, head/scalp atraumatic, hearing grossly normal bilaterally, moist oral mucous membranes and oropharynx normal Mouth: oral and palatal mucosa normal Eyes PERRL and EOMs intact bilaterally Neck no lymphadenopathy and supple Resp normal respiratory effort, normal air movement and clear to auscultation bilaterally Cardio regular rate, regular rhythm, S1 normal heart sound, S2 normal heart sound and no murmurs GI normal to inspection, nondistended, normoactive bowel sounds, soft to palpation and non-tender Extremity Extremity Narrative: mild bilateral knee tenderness on palpation has resolved, no differential warmth General Extremity: no tenderness to palpation of joints or extremities Skin no rashes or lesions noted General Skin Exam: no breakdown Neuro oriented x3, CN's II-XII intact bilaterally, moves all extremities and no focal motor deficits Sensorium / Orientation: awake and alert Motor Exam: strength 5/5 throughout and general weakness Psych thought process normal and cooperative Appearance: appropriate Weight / BMI Weight Weight: 195 lb 5.273 oz Body Mass Index (BMI) 31.5 ABG / Lab / Microbiology Data 12/14/24 04:37 12/14/24 04:37 Laboratory: Laboratory Results - last 24 hr 12/13/24 15:10: Urine Color Straw, Urine Clarity Clear, Urine pH 7.0, Ur Specific [place] 1.010, Urine Protein Negative, Urine Glucose (UA) Normal, Urine Ketones Negative, Urine Occult Blood Negative, Urine Nitrite Negative, Urine Bilirubin Negative, Urine Urobilinogen Normal, Ur Leukocyte Esterase Negative, Urine RBC 0-5 SEEN, Urine WBC 0-5 SEEN, Ur Squamous Epith Cells 0-5 SEEN, Urine Bacteria 0 SEEN, Urine Mucus 0 SEEN 12/13/24 16:20: POC Glucose 132 H 12/14/24 04:37: WBC 6.1, RBC 5.08, Hgb 10.4 L, Hct 36.4 L, MCV 71.7 L, MCH 20.5 L, MCHC 28.6 L, RDW Std Deviation 56.0 H, RDW Coeff of Ele 22.5 H, Plt Count 231, MPV 9.9, Immature Gran % (Auto) 0.300, Neut % (Auto) 65.2, Lymph % (Auto) 22.7, [place] % (Auto) 9.8, Eos % (Auto) 1.3, Baso % (Auto) 0.7, Absolute Neuts (auto) 4.0, Absolute Lymphs (auto) 1.39, Nucleated RBC % 0, Differential Comment SCANNED, Anisocytosis 2+, Sodium 136, Potassium 4.0, Chloride 98, Carbon Dioxide 22.9, Anion Gap 16 H, BUN 20 H, Creatinine 0.94, Estim Creat Clear Calc 65.11, Est GFR (MDRD) Non-Af 67, BUN/Creatinine Ratio 21.2 H, Glucose 94, Calcium 8.8 12/14/24 06:41: POC Glucose 91 Radiography Diagnostic Testing: Radiology Impression Chest X-Ray 12/13/24 17:32 IMPRESSION: Probable mild edema in the setting of cardiomegaly. ICD as above. Reading Location: [facility] Chest X-Ray 12/14/24 04:45 IMPRESSION: Unremarkable pacer placement. Reading Location: [place] [address] D/C Instructions Discharge Activity: Return to Normal Activity Weight Bearing Status: Weight bearing as tolerated Call your doctor if you observe: Fever of 101 or Higher DC O2, CPAP, BIPAP Needs Home O2 Discharge instructions: No DC home with Oxygen: No Meaningful Use Info Meaningful Use Meaningful Use Diagnoses (Choose all that apply): CHF CHF BHAVIN/ARB ordered at discharge?: Yes Documented LVEF (%): 20 Discharge Plan Admission Admit Date/Time: 12/10/24 21:33 Primary Reason for Your Visit: atrial fibrillation with pauses Attending Provider: Tatum Escobedo Primary Care Provider: Abdulaziz Ackerman Consulting Providers: Samantha Gary; Felicia Ramesh Instructions Patient Instructions: ICD, ICD Dc, ED Heart Failure, Congestive (CHF), Heart Failure Discharge Orders/Prescriptions Prescriptions: New carvedilol 6.25 mg Tablet 6.25 mg PO BIDCM Qty: 60 2RF Entresto 24-26 mg tablet 1 tab PO BID Qty: 60 2RF Continued mupirocin [Centany] 2 % ointment 1 applic topical BID Qty: 22 0RF acetaminophen 500 mg tablet 1,000 mg PO .Q 8h PRN (Reason: fever or pain) 30 Days Qty: 30 0RF atorvastatin 20 mg tablet 20 mg PO QHS Qty: 90 2RF furosemide 40 mg tablet 40 mg PO BIDLX 30 Days Qty: 60 2RF lidocaine HCl 4 % lotion 1 applic topical BID-QID PRN (Reason: pain) Qty: 118 2RF lisinopril 20 mg tablet 20 mg PO DAILY 30 Days Qty: 30 2RF potassium chloride 20 mEq tablet extended release 20 meq PO DAILY Qty: 30 1RF warfarin 5 mg tablet 5 mg PO QDAY Qty: 60 1RF Rx Instructions: Take 5 mg daily for 6 days of the week and 7.5mg on one day of the week Discontinued sulfamethoxazole-trimethoprim [Bactrim DS] 800-160 mg tablet 1 tab PO BID Qty: 14 0RF carvedilol 3.125 mg tablet 3.125 mg PO BIDCM 30 Days Qty: 60 2RF Rx Instructions: Hold for heart less than 50 or systolic blood pressure less than 100 mmHg. Referrals / Follow Up: Jamal Munoz MD [Med Staff - Active Staff] - Within 2 Weeks Abdulaziz Ackerman MD [Primary Care Provider] - Within 2 Weeks Disposition Disposition (needs filled in before D/C Order can be placed): Home, Self Care Charges/Coding Visit Charges Inpatient E&M: 68502 Disch Hosp >30min
[2024-12-14 14:19] VITALS: O2SAT 89; O2SAT 95
[2024-12-14 14:25] VITALS: BP 113/63; PULSE 88; RESP 15; TEMP 36.6; O2SAT 95
== END 2024-12-14 15:27 | disposition home or self-care (01) | DRG 276 ==
LOC: ED 19:35 → PCU 22:35
PROVIDERS: Admitting Provider Family Medicine; Emergency Provider Emergency Medicine; PCP Internal Medicine; Visit Provider Student in an Organized Health Care Education/Training Program
DX: I13.0 Hypertensive heart and chronic kidney disease with heart failure and stage 1 through stage 4 chronic kidney disease, or unspecified chronic kidney disease (principal); I50.23 Acute on chronic systolic (congestive) heart failure; I24.89 Other forms of acute ischemic heart disease; I48.92 Unspecified atrial flutter; I71.61 Supraceliac aneurysm of the thoracoabdominal aorta, without rupture; D50.9 Iron deficiency anemia, unspecified; Z68.32 Body mass index [BMI] 32.0-32.9, adult; N18.2 Chronic kidney disease, stage 2 (mild); E78.5 Hyperlipidemia, unspecified; I48.0 Paroxysmal atrial fibrillation; M17.0 Bilateral primary osteoarthritis of knee; K21.9 Gastro-esophageal reflux disease without esophagitis; I25.2 Old myocardial infarction; I49.5 Sick sinus syndrome; Z91.120 Patient's intentional underdosing of medication regimen due to financial hardship; T50.1X6A Underdosing of loop [high-ceiling] diuretics, initial encounter; Z79.01 Long term (current) use of 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s; R73.03 Prediabetes; G89.29 Other chronic pain; E66.812 Obesity, class 2; Z79.899 Other long term (current) drug therapy; Z87.891 Personal history of nicotine dependence; Z86.711 Personal history of pulmonary embolism
CPT/HCPCS: 33249; 36415; 71045; 71046; 73564; 80048; 80053; 80061; 81001; 82962; 83735; 83880; 84443; 84484; 85025; 85610; 93005; 94668; 97116; 97162; 97166; 97530; 97535; 99152; 99153; 99285; 99406; A4216; J1938

== ENCOUNTER → 2025-01-23 | Outpatient (CLI) | payer MEDICARE, SELFPAY ==
[2025-01-23 14:27] LABS: Hematocrit 36.3 % (37-47); Hemoglobin 10.5 g/dL (12.0-15.0); Immature Granulocytes Count 0.020 X10^3/uL (0.0-0.0); Mean Corp Hgb Conc 28.9 g/dL (32-36); Mean Corpuscular Volume 72.6 fL (81-99); Mean Platelet Vol. 10.3 fl (6.2-12.0); NRBC Flagged by Analyzer 0 % (0-5); POSITIVE MORPHOLOGY YES; Platelet Count 238 K/mm3 (150-450); RBC Distribution Width CV 22.5 % (11.6-14.6); RBC Distribution Width SD 57.1 fl (35.1-43.9); Red Blood Count 5.00 M/mm3 (4.2-5.4); White Blood Count 6.7 K/mm3 (4.4-11.0)
[2025-01-23 14:32] LABS: Differential Indicated SCAN CRITERIA MET
[2025-01-23 14:58] LABS: Anion Gap 12 (5-15); BUN 20 mg/dL (4-19); BUN/Creat Ratio 25.7 RATIO (10-20); Calcium,Total 8.9 mg/dL (7.6-11.0); Carbon Dioxide 27.5 mmol/L (21.0-32.0); Chloride 103 mmol/L (98-108); Glucose 89 mg/dL (70-99); Potassium 3.2 mmol/L (3.3-5.1); Pro- Brain NATRIURETIC PEPTIDE 6328 pg/mL (<=900)
[2025-01-23 16:37] LABS: Differential Comment SCANNED
[2025-01-23 16:51] LABS: Anisocytosis 2+
== END | disposition home or self-care (01) ==
PROVIDERS: PCP Internal Medicine; Referring Provider Nurse Practitioner Gerontology; Visit Provider Nurse Practitioner Gerontology
DX: R06.02 Shortness of breath (principal); R06.09 Other forms of dyspnea
CPT/HCPCS: 36415; 80048; 83880; 85025

== ENCOUNTER → 2025-02-12 | Outpatient (CLI) | payer MEDICARE, SELFPAY ==
[2025-02-12 10:35] LABS: Prothrombin Time (Protime)PT. 49.9 SECONDS (11.7-14.9)
[2025-02-12 10:44] LABS: Anion Gap 12 (5-15); BUN 21 mg/dL (4-19); BUN/Creat Ratio 25.8 RATIO (10-20); Calcium,Total 9.0 mg/dL (7.6-11.0); Carbon Dioxide 20.7 mmol/L (21.0-32.0); Chloride 104 mmol/L (98-108); Glucose 113 mg/dL (70-99); Potassium 4.7 mmol/L (3.3-5.1)
== END | disposition home or self-care (01) ==
PROVIDERS: PCP Internal Medicine; Referring Provider Nurse Practitioner Gerontology; Visit Provider Nurse Practitioner Gerontology
DX: I48.0 Paroxysmal atrial fibrillation (principal); I50.9 Heart failure, unspecified
CPT/HCPCS: 36415; 80048; 85610

== ENCOUNTER → 2025-02-21 | Outpatient (CLI) | payer MEDICARE, SELFPAY ==
[2025-02-21 08:58] LABS: Hematocrit 36.0 % (37-47); Hemoglobin 10.6 g/dL (12.0-15.0); Immature Granulocytes Count 0.010 X10^3/uL (0.0-0.0); Mean Corp Hgb Conc 29.4 g/dL (32-36); Mean Corpuscular Volume 73.8 fL (81-99); Mean Platelet Vol. 9.4 fl (6.2-12.0); NRBC Flagged by Analyzer 0 % (0-5); POSITIVE MORPHOLOGY YES; Platelet Count 257 K/mm3 (150-450); RBC Distribution Width CV 21.7 % (11.6-14.6); RBC Distribution Width SD 56.8 fl (35.1-43.9); Red Blood Count 4.88 M/mm3 (4.2-5.4); White Blood Count 7.8 K/mm3 (4.4-11.0)
[2025-02-21 09:07] LABS: Prothrombin Time (Protime)PT. 25.7 SECONDS (11.7-14.9)
[2025-02-21 09:32] LABS: Anion Gap 13 (5-15); BUN 20 mg/dL (4-19); BUN/Creat Ratio 27.4 RATIO (10-20); Calcium,Total 8.9 mg/dL (7.6-11.0); Carbon Dioxide 22.4 mmol/L (21.0-32.0); Chloride 105 mmol/L (98-108); Glucose 128 mg/dL (70-99); Potassium 3.7 mmol/L (3.3-5.1); Pro- Brain NATRIURETIC PEPTIDE 2682 pg/mL (<=900)
[2025-02-21 09:38] LABS: Differential Indicated SCAN CRITERIA MET
[2025-02-21 09:41] LABS: Anisocytosis 1+; Polychromasia 1+
== END | disposition home or self-care (01) ==
PROVIDERS: PCP Internal Medicine; Referring Provider Nurse Practitioner Gerontology; Visit Provider Nurse Practitioner Gerontology
DX: I48.92 Unspecified atrial flutter (principal); R06.09 Other forms of dyspnea; R06.02 Shortness of breath
CPT/HCPCS: 36415; 80048; 83880; 85025; 85610

== ENCOUNTER 2025-03-17 16:19 | Inpatient (IN) | payer MEDICARE, SELFPAY ==
[2025-03-17] VITALS (16 sets, daily range): BP systolic 83–118; BP diastolic 60–106; PULSE 87–123; RESP 17–24; TEMP 36.5–36.7; O2SAT 88–100; BMI 31.5; BMI 31.1
--- NOTE | 2025-03-17 16:36 | ED.VIS.GI ---
HPI HPI - GI History of Present Illness Chief Complaint: GI Bleed Narrative Narrative: 69-year-old female past medical history of diabetes, coronary artery disease, on Coumadin/warfarin presents with 3 days of black, tarry stool. She states she has not had this previously. She denies any fevers or chills, no nausea or vomiting, no bleeding diathesis, no bright red blood per rectum. She states that she has felt weak and fatigued. No chest pain but feels lightheaded and occasionally short of breath. Her last bowel movement was yesterday. No exacerbating or alleviating factors. [facility] Medical History Cardiac LV ejection fraction of 20-34% Congestive heart failure Implantable cardioverter-defibrillator (ICD) in situ Acute exacerbation of CHF (congestive heart failure) Thoracoabdominal aortic aneurysm (TAAA) Ulcer of left lower extremity with fat layer exposed Bradycardia Heart failure with reduced ejection fraction Irregular heart beat Atrial fibrillation Former smoker Ulcer of right lower extremity Lower extremity edema Dyspnea on exertion Diastolic heart failure Acute lumbar myofascial strain Acute thoracic myofascial strain Back pain Debility, unspecified Return to work evaluation Right renal mass Angina of effort Acute hypokalemia Chest pain Non-ST elevation IN (NSTEMI) Atrial flutter Borderline type 2 diabetes mellitus GERD (gastroesophageal reflux disease) Acute low back pain Elevated random blood glucose level Anxiety and depression Menopausal disorder Melanoma Preoperative clearance Flu vaccine need 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 Obesity Elevated troponin (08/09/20) Hyperlipidemia Nicotine dependence History of pulmonary embolus (PE) (08/10/20) Essential hypertension Wound of left lower extremity Insomnia Change in skin mole Heart failure with preserved ejection fraction Shortness of breath Osteoarthritis of left knee Chronic pain of left knee Tobacco use Arthritis Acute hypoxemic respiratory failure (08/09/20) Home Medications ?Medication ?Instructions ?Recorded ?Last Taken ?Type warfarin 5 mg tablet 5 mg PO QDAY #60 tabs 11/18/24 03/17/25 Rx furosemide 40 mg tablet 60 mg (1.5 x 40 mg) PO BID #180 02/13/25 Unknown Rx tabs carvedilol 6.25 mg tablet 6.25 mg PO BID #180 tabs 03/07/25 03/17/25 Rx potassium chloride 20 mEq 20 meq PO BID SUPPLEMENT #30 tabs 03/10/25 03/17/25 Rx tablet,extended release spironolactone 25 mg tablet 25 mg PO DAILY #30 tabs 03/10/25 Unknown Rx Allergy/AdvReac Type Severity Reaction Status Date / Time latex Allergy Mild rash Verified 03/17/25 16:21 trazodone Allergy Mild Tingling Verified 03/17/25 16:21 coconut Allergy Unknown PT UNABLE Verified 03/17/25 16:21 TO RESPOND-NEEDS F/U Fish Containing Products Allergy Unknown PT UNABLE Verified 03/17/25 16:21 TO RESPOND-NEEDS F/U propoxyphene (From Allergy Hives Verified 03/17/25 16:21 Darvocet-N) acetaminophen (From AdvReac Intermediate Nausea/Vom/ Verified 03/17/25 16:21 Darvocet-N) Diarrhea lactose (dairy lactose) AdvReac Intermediate Nausea/Vom/ Verified 03/17/25 16:21 Diarrhea Family History Mother Anxiety Arthritis Depression Hypertension Father Anxiety Arthritis Depression Hypertension Other Thyroid disorder Surgical History H/O tubal ligation History of cholecystectomy H/O elbow surgery Social History housing: house Smoking Status: Current every day smoker tobacco type: cigarettes alcohol intake: never substance use type: does not use what type of physical activity do you participate in: walking frequency: 5-6 times per week ROS ROS ED ROS Narrative Review of systems positive for generalized weakness, lightheadedness. Black tarry stool over the last 3 days. Last bowel movement yesterday. No fevers or chills. No nausea or vomiting. No hematemesis. Denies other bleeding diathesis. No abdominal pain. States she has slight headache. No chest pain. EXAM Physical Exam Narrative Exam Narrative: Afebrile. Vital signs noted. Nontoxic-appearing. Cardiovascular examination reveals mild tachycardia. Lungs are clear to auscultation bilaterally. Abdomen soft nontender with positive bowel sounds. Positive subconjunctival event palmar pallor. Neurological examination nonfocal and nonlateralizing. Patient refused rectal examination currently. Const Vital Signs: 03/17/25 16:21 03/17/25 18:19 Temperature 97.8 F Temperature Source Oral Pulse Rate 116 H 107 H Respiratory Rate 17 Blood Pressure 108/64 106/63 Blood Pressure Mean 78 77 Pulse Ox 90 95 Oxygen Delivery Method Room Air Room Air MDM MDM MDM Narrative Medical decision making narrative: Differential diagnosis includes but not limited to lower GI bleeding versus upper GI bleeding versus anemia requiring transfusion. Comprehensive workup was pursued. EKG obtained and interpreted by myself independently as atrial flutter with variable AV block at 160 bpm with PVC. Of significance, her CBC shows normal white count at 9.1, but she is severely anemic with a hemoglobin of 4.3 and hematocrit 15.9, platelet count 263. I readdressed the need for rectal examination with the patient but she refused again. CMP is significant for CO2 low at 20.6 with BUN of 21 and creatinine 0.63. Glucose elevated at 137 but normal anion gap of 10. LFTs are grossly normal. INR is elevated at 4.3. Given her hemoglobin of 4.3, I do feel that she requires vitamin K. I ordered vitamin K 10 mg intravenously. She was told of the need for blood transfusion. She was told of the risk of transfusion reaction, and acquiring an infectious disease, however I do feel that the risk of this happening is so low and that the benefits outweigh the low risk. At this point in time, patient will be discussed with the hospitalist for admission to the ICU. I discussed the patient with Dr. Rausch who requested that an additional unit of PRBCs to be transfused. I ordered this and informed the blood bank that she needs a total of 3 units of PRBCs transfused. Patient is in stable but guarded condition. History & Record Review Discussion w/independent historian: Patient Additional record(s) reviewed:: Prior labs Lab Data Attestation: I reviewed the patient's lab results. Labs: Laboratory Results - last 24 hr 03/17/25 03/17/25 03/17/25 16:27 17:08 17:39 WBC 9.1 RBC 1.92 L Hgb 4.3 L* Hct 15.9 L MCV 82.8 MCH 22.4 L MCHC 27.0 L RDW Std Deviation 75.5 H RDW Coeff of Ele 26.0 H Plt Count 263 MPV 10.7 Immature Gran % (Auto) 0.800 Neut % (Auto) 71.3 H Lymph % (Auto) 17.3 L [place] % (Auto) 9.2 Eos % (Auto) 1.1 Baso % (Auto) 0.3 Absolute Neuts (auto) 6.5 Absolute Lymphs (auto) 1.57 Nucleated RBC % 1.0 Differential Comment SCANNED Platelet Estimate ADEQUATE Polychromasia 2+ Hypochromasia 1+ Anisocytosis 2+ Ovalocytes 1+ PT 42.4 H INR 4.3 H* Sodium 136 Potassium 3.8 Chloride 106 Carbon Dioxide 20.6 L Anion Gap 10 BUN 21 H Creatinine 0.63 L Estim Creat Clear Calc 76.51 Est GFR (MDRD) Non-Af 97 BUN/Creatinine Ratio 33.8 H Glucose 137 H Calcium 8.0 Total Bilirubin 0.74 AST 21 ALT 16 Alkaline Phosphatase 66 Total Protein 5.4 L Albumin 3.1 L Globulin 2.3 Albumin/Globulin Ratio 1.3 POC Glucose 122 H Blood Type Cancelled Antibody Screen Cancelled Crossmatch 03/17/25 03/17/25 18:14 18:14 WBC RBC Hgb Hct MCV MCH MCHC RDW Std Deviation RDW Coeff of Ele Plt Count MPV Immature Gran % (Auto) Neut % (Auto) Lymph % (Auto) [place] % (Auto) Eos % (Auto) Baso % (Auto) Absolute Neuts (auto) Absolute Lymphs (auto) Nucleated RBC % Differential Comment Platelet Estimate Polychromasia Hypochromasia Anisocytosis Ovalocytes PT INR Sodium Potassium Chloride Carbon Dioxide Anion Gap BUN Creatinine Estim Creat Clear Calc Est GFR (MDRD) Non-Af BUN/Creatinine Ratio Glucose Calcium Total Bilirubin AST ALT Alkaline Phosphatase Total Protein Albumin Globulin Albumin/Globulin Ratio POC Glucose Blood Type A POSITIVE Antibody Screen NEGATIVE Crossmatch See Detail See Detail Management Discussion w/another healthcare provider: Hospitalist (Dr. Harpal Rausch) Critical Care Time Critical Care Time: Yes Critical care time (excluding procedures): 30-74 minutes (32), Including time spent:, Discussing w/Patient &/or Family/Operating Room Tech, Discussing w/Consultants, Arranging Admission or Transfer and Performing Direct Patient Care at Bedside Discharge Plan Disposition Disposition: Acute Care Hospital [facility] Discharge Date/Time: 03/17/25 19:56
[2025-03-17 17:25] LABS: Hematocrit 15.9 % (37-47); Immature Granulocytes Count 0.070 X10^3/uL (0.0-0.0); Mean Corp Hgb Conc 27.0 g/dL (32-36); Mean Corpuscular Volume 82.8 fL (81-99); Mean Platelet Vol. 10.7 fl (6.2-12.0); NRBC Flagged by Analyzer 1.0 % (0-5); POSITIVE COUNT YES; POSITIVE MORPHOLOGY YES; Platelet Count 263 K/mm3 (150-450); RBC Distribution Width CV 26.0 % (11.6-14.6); RBC Distribution Width SD 75.5 fl (35.1-43.9); Red Blood Count 1.92 M/mm3 (4.2-5.4); White Blood Count 9.1 K/mm3 (4.4-11.0)
[2025-03-17] MEDS: 0.9% Normal Saline (500mL Bag) 500 ML 1000 ML IV (17:46)
[2025-03-17 17:47] LABS: Differential Indicated SCAN CRITERIA MET; Hemoglobin 4.3 g/dL (12.0-15.0)
[2025-03-17 18:04] LABS: AST(SGOT) 21 U/L (<=31); Alanine Aminotransfer ALT/SGPT 16 U/L (<=34); Albumin, Serum 3.1 g/dL (3.4-4.8); Alkaline Phosphatase 66 U/L (35-104); Anion Gap 10 (5-15); BUN 21 mg/dL (4-19); BUN/Creat Ratio 33.8 RATIO (10-20); Calcium,Total 8.0 mg/dL (7.6-11.0); Carbon Dioxide 20.6 mmol/L (21.0-32.0); Chloride 106 mmol/L (98-108); Estimated Creatinine Clearance 76.51 ml/min (50-250); Globulin 2.3 g/dL (2.2-4.2); Glucose 137 mg/dL (70-99); Potassium 3.8 mmol/L (3.3-5.1)
[2025-03-17 18:15] LABS: Prothrombin Time (Protime)PT. 42.4 SECONDS (11.7-14.9)
[2025-03-17] MEDS: Phytonadione (Vit K) 10 MG in 0.9% Normal Saline (50mL Bag) 50 ML 150 MG IV (18:43)
--- NOTE | 2025-03-17 18:43 | PCM.HP.STD ---
HPI - General General Date of Admission: 03/17/25 Date of Service: 03/17/25 Chief Complaint: dark tarry stools HPI Narrative ANDREIA ELAINE, is a 69 F who presented to [facility] ED on 03/17/2025 with dark tarry stools. Patient reports dark stools for the past 3 days. No prior history of GI bleed. Medical history significant for A-fib on Coumadin and chronic HFrEF s/p ICD placement. In the ED was found to have a hemoglobin of 4.3, down from hemoglobin 10.6 on 02/21. She was tachycardic to the 110s and borderline hypotensive to the 90s systolic, was otherwise breathing comfortably on room air at rest. INR 4.3. She was given a dose of IV vitamin K 10 mg and 3 units of blood were ordered. Hospitalist was then contacted for admission. I saw the patient at bedside in the ED. Patient was mildly fatigued and pale appearing but was otherwise sitting up fairly comfortably in bed and in no acute distress. She denied any chest pain or shortness of breath at rest. Denied any fevers or chills. No other acute concerns at this time. Will be admitted to the ICU for further management. [facility] Medical History Cardiac LV ejection fraction of 20-34% Congestive heart failure Implantable cardioverter-defibrillator (ICD) in situ Acute exacerbation of CHF (congestive heart failure) Thoracoabdominal aortic aneurysm (TAAA) Ulcer of left lower extremity with fat layer exposed Bradycardia Heart failure with reduced ejection fraction Irregular heart beat Atrial fibrillation Former smoker Ulcer of right lower extremity Lower extremity edema Dyspnea on exertion Diastolic heart failure Acute lumbar myofascial strain Acute thoracic myofascial strain Back pain Debility, unspecified Return to work evaluation Right renal mass Angina of effort Acute hypokalemia Chest pain Non-ST elevation SD (NSTEMI) Atrial flutter Borderline type 2 diabetes mellitus GERD (gastroesophageal reflux disease) Acute low back pain Elevated random blood glucose level Anxiety and depression Menopausal disorder Melanoma Preoperative clearance Flu vaccine need Current use of penitentiary 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 Obesity Elevated troponin (08/09/20) Hyperlipidemia Nicotine dependence History of pulmonary embolus (PE) (08/10/20) Essential hypertension Wound of left lower extremity Insomnia Change in skin mole Heart failure with preserved ejection fraction Shortness of breath Osteoarthritis of left knee Chronic pain of left knee Tobacco use Arthritis Acute hypoxemic respiratory failure (08/09/20) Home Medications ?Medication ?Instructions ?Recorded ?Last Taken ?Type warfarin 5 mg tablet 5 mg PO QDAY #60 tabs 11/18/24 03/17/25 Rx furosemide 40 mg tablet 60 mg (1.5 x 40 mg) PO BID #180 02/13/25 Unknown Rx tabs carvedilol 6.25 mg tablet 6.25 mg PO BID #180 tabs 03/07/25 03/17/25 Rx potassium chloride 20 mEq 20 meq PO BID SUPPLEMENT #30 tabs 03/10/25 03/17/25 Rx tablet,extended release spironolactone 25 mg tablet 25 mg PO DAILY #30 tabs 03/10/25 Unknown Rx Allergy/AdvReac Type Severity Reaction Status Date / Time latex Allergy Mild rash Verified 03/17/25 16:21 trazodone Allergy Mild Tingling Verified 03/17/25 16:21 coconut Allergy Unknown PT UNABLE Verified 03/17/25 16:21 TO RESPOND-NEEDS F/U Fish Containing Products Allergy Unknown PT UNABLE Verified 03/17/25 16:21 TO RESPOND-NEEDS F/U propoxyphene (From Allergy Hives Verified 03/17/25 16:21 Darvocet-N) acetaminophen (From AdvReac Intermediate Nausea/Vom/ Verified 03/17/25 16:21 Darvocet-N) Diarrhea lactose (dairy lactose) AdvReac Intermediate Nausea/Vom/ Verified 03/17/25 16:21 Diarrhea Family History Mother Anxiety Arthritis Depression Hypertension Father Anxiety Arthritis Depression Hypertension Other Thyroid disorder Surgical History H/O tubal ligation History of cholecystectomy H/O elbow surgery Social History housing: house Smoking Status: Current every day smoker tobacco type: cigarettes alcohol intake: never substance use type: does not use what type of physical activity do you participate in: walking frequency: 5-6 times per week ROS Constitutional Constitutional: Reports fatigue; Denies chills, fever(s) or weakness Cardiovascular Cardiovascular: Reports dyspnea on exertion; Denies chest pain, edema, lightheadedness, orthopnea or palpitations Respiratory/Chest Respiratory/Chest: Denies cough, shortness of breath at rest or wheezing Gastrointestinal Gastrointestinal: Reports melena; Denies abdominal pain, constipation, nausea or vomiting Musculoskeletal Musculoskeletal: Denies arthralgias or myalgias Neurologic Neurologic: Denies dizziness, focal weakness or headache(s) Vital Signs Vital Signs Vital Signs: 03/17/25 16:21 03/17/25 18:19 Temperature 97.8 F Temperature Source Oral Pulse Rate 116 H 107 H Respiratory Rate 17 Blood Pressure 108/64 106/63 Blood Pressure Mean 78 77 Pulse Ox 90 95 Oxygen Delivery Method Room Air Room Air Weight Weight: 88.6 kg Body Mass Index (BMI) 31.5 Physical Exam Const alert, oriented x3 and no apparent distress Constitutional Narrative: Elderly female, class I obesity, mildly fatigued and pale appearing, otherwise sitting up fairly comfortably in bed, answering questions appropriately, in no acute distress. General Appearance: cooperative and comfortable HEENT normocephalic, head/scalp atraumatic, hearing grossly normal bilaterally, nasal mucous membranes and turbinates normal and moist oral mucous membranes Eyes PERRL, EOMs intact bilaterally and conjunctivae normal Neck full ROM Chest inspection of chest normal Resp normal respiratory effort, normal air movement, no use of accessory muscles and clear to auscultation bilaterally Cardio no murmurs and peripheral pulses 2+ throughout Cardio Narrative: Tachycardic, irregular rhythm. GI normal to inspection, nondistended, normoactive bowel sounds, soft to palpation, non-tender and non-distended Back/Spine normal ROM Extremity normal to inspection, full ROM and no pedal edema Skin no rashes or lesions noted Psych mental status grossly normal Results Lab / Micro Data 03/17/25 17:08 03/17/25 17:08 Labs: Laboratory Results - last 24 hr 03/17/25 16:27: POC Glucose 122 H 03/17/25 17:08: WBC 9.1, RBC 1.92 L, Hgb 4.3 L*, Hct 15.9 L, MCV 82.8, MCH 22.4 L, MCHC 27.0 L, RDW Std Deviation 75.5 H, RDW Coeff of Ele 26.0 H, Plt Count 263, MPV 10.7, Immature Gran % (Auto) 0.800, Neut % (Auto) 71.3 H, Lymph % (Auto) 17.3 L, [place] % (Auto) 9.2, Eos % (Auto) 1.1, Baso % (Auto) 0.3, Absolute Neuts (auto) 6.5, Absolute Lymphs (auto) 1.57, Nucleated RBC % 1.0, PT 42.4 H, INR 4.3 H*, Sodium 136, Potassium 3.8, Chloride 106, Carbon Dioxide 20.6 L, Anion Gap 10, BUN 21 H, Creatinine 0.63 L, Estim Creat Clear Calc 76.51, Est GFR (MDRD) Non-Af 97, BUN/Creatinine Ratio 33.8 H, Glucose 137 H, Calcium 8.0, Total Bilirubin 0.74, AST 21, ALT 16, Alkaline Phosphatase 66, Total Protein 5.4 L, Albumin 3.1 L, Globulin 2.3, Albumin/Globulin Ratio 1.3 03/17/25 17:39: Blood Type Cancelled, Antibody Screen Cancelled Assessment & Plan Assessment/Plan (1) ABLA (acute blood loss anemia): (2) GI bleed: PLAN: Plan Patient is a 69-year-old female who presented to [facility] ED on 03/17/2025 with dark tarry stools. 1. Acute blood loss anemia suspected secondary to upper GI bleed, adverse effect due to 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 with Coumadin ? Admit under inpatient status to ICU. GI consulted. Hemoglobin 4.3 on admit, most recent hemoglobin 10.6 on 02/21. INR 4.3. Tachycardic and borderline hypotensive on admit. BUN to creatinine ratio mildly elevated at 33. Seems most likely upper GI bleed in setting of supratherapeutic INR. Will give 3 units of blood on admit, repeat CBC tonight and tomorrow morning and can transfuse for hemoglobin less than 7. IV PPI twice daily ordered. N.p.o. status with plan for EGD tomorrow. 2. Chronic persistent atrial flutter on Coumadin with supratherapeutic INR, chronic HFrEF s/p ICD placement ? Follows with cardiology, last office visit on 02/14. Was noted then that she was taking warfarin 5 mg twice daily and her INR was supratherapeutic at 5.3. They strongly recommended reducing dosing and noted they will take over INR checks, and repeat INR on 02/21 was 2.3. Unclear what dose of warfarin she has been taking recently, has 5 mg daily listed in her chart. She is in chronic persistent atrial flutter and was tachycardic to the 110s on admit due to GI bleed as above. Most recent echo in August showed EF 20%, mild concentric LV hypertrophy, severe global hypokinesis of the LV. Holding home Coreg and Lasix at this time. Notably patient will be getting significant fluid with blood transfusion as above, may need to give a dose of IV Lasix to assist with volume removal. 3. Osteoarthritis ? Continue Tylenol as needed. 4. Class I obesity ? BMI 31 on admit. Complicates hospital course and care. DVT prophylaxis: SCDs CODE STATUS: Full code, verified Expected disposition: Home, TBD Total clinical time spent by myself addressing the patient's medical issues, reviewing all the data, and collaborating with patient's care team: 76 minutes. Charges/Coding Visit Charges Inpatient E&M: 44244 Init Hosp L3
[2025-03-17 18:56] LABS: Differential Comment SCANNED
[2025-03-17 19:00] LABS: Anisocytosis 2+
[2025-03-17 19:01] LABS: Hypochromasia 1+; Polychromasia 2+
--- NOTE | 2025-03-17 20:59 | NURSING ---
This RN noticed a large amount of trammell in pt's bag upon admission. Pt wanted money to stay in closet. This RN talked with pt about keeping money locked in the safe with security while she is in the hospital. This RN counted the trammell with Arron Allison RN at the nurses station. The money was counted again with pt and JEAN Heller in pt's room. There was a total of $5900 taken to the safe/security by WELLINGTON Watson. The pt requested to keep one twenty dollar bill and all of the five dollar bills and all of the one dollar bills. This RN counted money with pt and put trammell into her wallet with pt watching. Pt now has $55 in her wallet in the closet.
[2025-03-18] VITALS (41 sets, daily range): BP systolic 90–158; BP diastolic 38–138; PULSE 70–130; RESP 13–26; TEMP 36–37.1; O2SAT 95–100; BMI 31.9
[2025-03-18] MEDS: Pantoprazole Sodium 40 MG in 0.9% Normal Saline (100mL MB+) 100 ML 330 MG IV ×3 (00:29→20:52)
[2025-03-18] MEDS: 0.9% Saline Lock 10 ML Syringe IV ×3 (05:41→21:22)
[2025-03-18 05:52] LABS: Hematocrit 25.6 % (37-47); Hemoglobin 8.6 g/dL (12.0-15.0); Mean Corp Hgb Conc 33.6 g/dL (32-36); Mean Corpuscular Volume 82.3 fL (81-99); Mean Platelet Vol. 10.8 fl (6.2-12.0); POSITIVE MORPHOLOGY YES; Platelet Count 230 K/mm3 (150-450); RBC Distribution Width CV 21.2 % (11.6-14.6); RBC Distribution Width SD 59.5 fl (35.1-43.9); Red Blood Count 3.11 M/mm3 (4.2-5.4); White Blood Count 9.0 K/mm3 (4.4-11.0)
[2025-03-18 06:19] LABS: Anion Gap 9 (5-15); BUN 25 mg/dL (4-19); BUN/Creat Ratio 29.9 RATIO (10-20); Calcium,Total 8.0 mg/dL (7.6-11.0); Carbon Dioxide 20.0 mmol/L (21.0-32.0); Chloride 107 mmol/L (98-108); Estimated Creatinine Clearance 74.41 ml/min (50-250); Glucose 114 mg/dL (70-99); Potassium 4.4 mmol/L (3.3-5.1)
[2025-03-18 06:25] LABS: Scan Indicated on CBC? Y/N YES- FLAGS NOTED
--- NOTE | 2025-03-18 07:12 | PN.HOSP_ITS ---
Reason for Visit
--- NOTE | 2025-03-18 07:12 | PCM.PN.HOSP ---
Reason for Visit Chief Complaint: dark tarry stools Subjective Subjective Patient is a 69-year-old lady who presented with black tarry stools for 3 days duration hemoglobin on admission was 4.3 admitted to the intensive care unit for further management Objective Data Objective Data Vital Signs: Vital Signs Temp Pulse Resp BP Pulse Ox O2 Del Method O2 Flow Rate 97.8 F 99 13 90/63 96 Room Air 2 03/18/25 01:30 03/18/25 06:00 03/18/25 06:00 03/18/25 06:00 03/18/25 06:00 03/18/25 06:00 03/18/25 00:50 FiO2 2 03/17/25 21:30 Oxygen Flow Rate (L/min) 2 Oxygen Delivery Method Room Air Weight: 90.2 kg Body Mass Index (BMI) 31.9 Intake & Output: Intake and Output for Last 24 Hours 03/16/25 03/17/25 03/18/25 23:59 23:59 23:59 Intake Total 951 / 951 900 / 900 Balance 951 / 951 900 / 900 Lab / Micro Data 03/18/25 05:40 03/18/25 05:40 Labs: Laboratory Results - last 24 hr 03/17/25 16:27: POC Glucose 122 H 03/17/25 17:08: WBC 9.1, RBC 1.92 L, Hgb 4.3 L*, Hct 15.9 L, MCV 82.8, MCH 22.4 L, MCHC 27.0 L, RDW Std Deviation 75.5 H, RDW Coeff of Ele 26.0 H, Plt Count 263, MPV 10.7, Immature Gran % (Auto) 0.800, Neut % (Auto) 71.3 H, Lymph % (Auto) 17.3 L, [place] % (Auto) 9.2, Eos % (Auto) 1.1, Baso % (Auto) 0.3, Absolute Neuts (auto) 6.5, Absolute Lymphs (auto) 1.57, Nucleated RBC % 1.0, Differential Comment SCANNED, Platelet Estimate ADEQUATE, Polychromasia 2+, Hypochromasia 1+, Anisocytosis 2+, Ovalocytes 1+, PT 42.4 H, INR 4.3 H*, Sodium 136, Potassium 3.8, Chloride 106, Carbon Dioxide 20.6 L, Anion Gap 10, BUN 21 H, Creatinine 0.63 L, Estim Creat Clear Calc 76.51, Est GFR (MDRD) Non-Af 97, BUN/Creatinine Ratio 33.8 H, Glucose 137 H, Calcium 8.0, Total Bilirubin 0.74, AST 21, ALT 16, Alkaline Phosphatase 66, Total Protein 5.4 L, Albumin 3.1 L, Globulin 2.3, Albumin/Globulin Ratio 1.3 03/17/25 17:39: Blood Type Cancelled, Antibody Screen Cancelled 03/17/25 18:14: Blood Type A POSITIVE, Antibody Screen NEGATIVE, Crossmatch See Detail 03/17/25 18:14: Crossmatch See Detail 03/18/25 05:40: WBC 9.0, RBC 3.11 L, Hgb 8.6 L, Hct 25.6 L, MCV 82.3, MCH 27.7, MCHC 33.6 D, RDW Std Deviation 59.5 H, RDW Coeff of Ele 21.2 H, Plt Count 230, MPV 10.8, Sodium 136, Potassium 4.4, Chloride 107, Carbon Dioxide 20.0 L, Anion Gap 9, BUN 25 H, Creatinine 0.83, Estim Creat Clear Calc 74.41, Est GFR (MDRD) Non-Af 77, BUN/Creatinine Ratio 29.9 H, Glucose 114 H, Calcium 8.0 Physical Exam Narrative GENERAL: cooperative HEENT: Atraumatic; normocephalic EYES; Anicteric, Normal Conjunctiva NECK; supple, normal thyroid, RESPIRATORY: Diminished to auscultation CARDIOVASCULAR: Regular S1 S2, tachycardic GI: soft, normoactive bowel sounds, : No Renal angle tenderness; EXTREMITIES: No edema, no clubbing, MUSCULOSKELETAL: no muscle wasting NEURO: Awake; no lateralizing signs. SKIN: No Rash PSYCH; Flat affect Assessment & Plan Assessment/Plan (1) ABLA (acute blood loss anemia): (2) GI bleed: PLAN: Plan Patient is a 69-year-old lady who presented with black tarry stools for 3 days duration hemoglobin on admission was 4.3 admitted to the intensive care unit for further management 1. Acute blood loss anemia exacerbated by the use of systemic 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 with Coumadin ? Hemoglobin on admission was 4.3 INR was 4.3. Patient was found to be tachycardic and hypotensive resuscitated with IV fluid admitted to the intensive care unit. Patient was transfused with 3 unit PRBC subsequent every 6 H&H ordered kept n.p.o. after midnight consultation placed to GI 2. Chronic persistent A-fib Patient is on Coumadin INR was slightly elevated on admission held 3. Chronic congestive heart failure with reduced ejection fraction ? Patient has known EF of 20%. Patient is on guideline directed therapy as outpatient. Currently remains compensated 4. Ischemic cardiomyopathy - status post AICD placement 5. Essential hypertension ? Patient antihypertensives held on admission given her relatively low blood pressure 6. Generalized osteoarthritis ? Pain meds as needed 7. Class II obesity with BMI of 32.1 ? Complicating care weight loss advised 8. DVT prophylaxis ? Patient already on Coumadin Time spent in the patient's overall evaluation,decision-making process, review of diagnostic data, adjustment of management, discussion with other providers, nursing nursing and ancillary staff involved in patient's care documentation, 50. Minutes Charges/Coding Visit Charges Inpatient E&M: 52601 Subs Hosp L3
--- NOTE | 2025-03-18 09:30 | CASEMGMT ---
JEAN MALDONADO Assessment Face to Face with patient for initial transition planning/care coordination assessment. JEAN MALDONADO introduced self and role at [facility], pt voices understanding. Pt is A&Ox4 and is resting comfortably in bed and is calm. Care providers, pharmacy, and demographics verified. Admitting dx: ABLA due to GI Bleed. Pt's Hgb is now up to 8.6 from 4.3 after x3 units of blood. GI consult pending. LACE Strata: 3 PCP: Sravanthi Marroquin Specialists: JOSE Preferred Pharmacy: [facility] Insurance: [facility] Prescription Benefit: Pt states none. Pt educated about free services such as Good Rx. CM to follow. LNOK: Ct (Sister). Pt also reports that she has 2 daughters Living Arrangements: Pt lives alone in a mobile home with 5 steps to enter ADLs/IADLs: Pt states that she is indep. PT eval is pending Transportation: Self, sister, daughters DME: Shower chair. Pt denies any further DME uses or needs at this time HHC/SNF: Denies hx of Smoking hx: Pt states that she smokes 1/2 pack of cigarettes per day and declines wanting any cessation resources Pt?s goal: Home Plan: Anticipate DC home once medically ready, follow for HH or OP Tx. Pt states that she would like to work with PT before deciding if she would like additional therapy after DC. CM to follow Rx costs. Pt denies further questions or concerns at this time. Awaiting GI consult. CM to follow. Fabiano Cristina RN, CM
[2025-03-18] MEDS: 0.9% Normal Saline (250mL Bag) 250 ML 15 ML IV (09:53)
[2025-03-18 11:54] LABS: Hematocrit 25.6 % (37-47); Hemoglobin 7.7 g/dL (12.0-15.0); Mean Corp Hgb Conc 30.1 g/dL (32-36); Mean Corpuscular Volume 82.6 fL (81-99); Mean Platelet Vol. 10.6 fl (6.2-12.0); POSITIVE MORPHOLOGY YES; Platelet Count 251 K/mm3 (150-450); RBC Distribution Width CV 21.2 % (11.6-14.6); Red Blood Count 3.10 M/mm3 (4.2-5.4); White Blood Count 9.0 K/mm3 (4.4-11.0)
[2025-03-18 11:55] LABS: Scan Indicated on CBC? Y/N YES- FLAGS NOTED
[2025-03-18 12:15] LABS: RBC Distribution Width SD 61.8 fl (35.1-43.9)
--- NOTE | 2025-03-18 15:42 | EX.PCM.CON.G ---
HPI Consult Data Date of Consult: 03/18/25 HPI Narrative Reason for Consultation: GI bleed HPI Narrative: ANDREIA ELAINE is a The patient is a 69-year-old female with a three-day history of dark, tarry stools, suggesting an upper GI bleed. She has no prior history of GI bleeding. The patient was brought to the [facility] Emergency Department on 03/17/2025 due to her symptoms and was found to be hemodynamically compromised. Her baseline hemoglobin of 10.6 on 02/21/2025 has dropped significantly to 4.3. She has also had a supratherapeutic INR of 4.3 due to her Coumadin use for A-fib. In the emergency department, she was found to be tachycardic at 110 bpm and borderline hypotensive (systolic blood pressure in the 90s). She received 10 mg of intravenous vitamin K to reverse the coagulopathy and was started on a blood transfusion. She received 3 units of packed red blood cells overnight. Her repeat hemoglobin is 8. I was asked to see her for emergent endoscopy. [facility] Medical History Cardiac LV ejection fraction of 20-34% Congestive heart failure Implantable cardioverter-defibrillator (ICD) in situ Acute exacerbation of CHF (congestive heart failure) Thoracoabdominal aortic aneurysm (TAAA) Ulcer of left lower extremity with fat layer exposed Bradycardia Heart failure with reduced ejection fraction Irregular heart beat Atrial fibrillation Former smoker Ulcer of right lower extremity Lower extremity edema Dyspnea on exertion Diastolic heart failure Acute lumbar myofascial strain Acute thoracic myofascial strain Back pain Debility, unspecified Return to work evaluation Right renal mass Angina of effort Acute hypokalemia Chest pain Non-ST elevation [place] (NSTEMI) Atrial flutter Borderline type 2 diabetes mellitus GERD (gastroesophageal reflux disease) Acute low back pain Elevated random blood glucose level Anxiety and depression Menopausal disorder Melanoma Preoperative clearance Flu vaccine need 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 Obesity Elevated troponin (08/09/20) Hyperlipidemia Nicotine dependence History of pulmonary embolus (PE) (08/10/20) Essential hypertension Wound of left lower extremity Insomnia Change in skin mole Heart failure with preserved ejection fraction Shortness of breath Osteoarthritis of left knee Chronic pain of left knee Tobacco use Arthritis Acute hypoxemic respiratory failure (08/09/20) Home Medications ?Medication ?Instructions ?Recorded ?Last Taken ?Type warfarin 5 mg tablet 5 mg PO QDAY #60 tabs 11/18/24 03/17/25 Rx furosemide 40 mg tablet 60 mg (1.5 x 40 mg) PO BID #180 02/13/25 Unknown Rx tabs carvedilol 6.25 mg tablet 6.25 mg PO BID #180 tabs 03/07/25 03/17/25 Rx potassium chloride 20 mEq 20 meq PO BID SUPPLEMENT #30 tabs 03/10/25 03/17/25 Rx tablet,extended release spironolactone 25 mg tablet 25 mg PO DAILY #30 tabs 03/10/25 Unknown Rx Allergy/AdvReac Type Severity Reaction Status Date / Time latex Allergy Mild rash Verified 03/17/25 16:21 trazodone Allergy Mild Tingling Verified 03/17/25 16:21 coconut Allergy Unknown PT UNABLE Verified 03/17/25 16:21 TO RESPOND-NEEDS F/U Fish Containing Products Allergy Unknown PT UNABLE Verified 03/17/25 16:21 TO RESPOND-NEEDS F/U propoxyphene (From Allergy Hives Verified 03/17/25 16:21 Darvocet-N) acetaminophen (From AdvReac Intermediate Nausea/Vom/ Verified 03/17/25 16:21 Darvocet-N) Diarrhea lactose (dairy lactose) AdvReac Intermediate Nausea/Vom/ Verified 03/17/25 16:21 Diarrhea Family History Mother Anxiety Arthritis Depression Hypertension Father Anxiety Arthritis Depression Hypertension Other Thyroid disorder Surgical History H/O tubal ligation History of cholecystectomy H/O elbow surgery Social History housing: house Smoking Status: Current every day smoker tobacco type: cigarettes alcohol intake: never substance use type: does not use what type of physical activity do you participate in: walking frequency: 5-6 times per week ROS Constitutional Constitutional: Denies fatigue, fever(s), poor appetite, weight gain or weight loss Gastrointestinal Gastrointestinal: Denies belching, bloating, change in bowel habits, change in stool character, chewing difficulty, coffee ground emesis, constipation, cramping, diarrhea, dyspepsia, dysphagia, early satiety, excessive flatus, fecal incontinence, heartburn, hematemesis, hematochezia, hemorrhoids, loose stools, melena, nausea, odynophagia, rectal bleeding, tenesmus, vomiting or weight changes Physical Exam Const alert, oriented x3, no apparent distress and healthy appearing General Appearance: cooperative GI normal to inspection, nondistended, normoactive bowel sounds, soft to palpation, non-tender and non-distended Percussion: normal to percussion Rectal Exam: deferred Lab / Micro Data 03/18/25 11:45 03/18/25 05:40 Labs: Laboratory Results - last 24 hr 03/17/25 16:27: POC Glucose 122 H 03/17/25 17:08: WBC 9.1, RBC 1.92 L, Hgb 4.3 L*, Hct 15.9 L, MCV 82.8, MCH 22.4 L, MCHC 27.0 L, RDW Std Deviation 75.5 H, RDW Coeff of Ele 26.0 H, Plt Count 263, MPV 10.7, Immature Gran % (Auto) 0.800, Neut % (Auto) 71.3 H, Lymph % (Auto) 17.3 L, [place] % (Auto) 9.2, Eos % (Auto) 1.1, Baso % (Auto) 0.3, Absolute Neuts (auto) 6.5, Absolute Lymphs (auto) 1.57, Nucleated RBC % 1.0, Differential Comment SCANNED, Platelet Estimate ADEQUATE, Polychromasia 2+, Hypochromasia 1+, Anisocytosis 2+, Ovalocytes 1+, PT 42.4 H, INR 4.3 H*, Sodium 136, Potassium 3.8, Chloride 106, Carbon Dioxide 20.6 L, Anion Gap 10, BUN 21 H, Creatinine 0.63 L, Estim Creat Clear Calc 76.51, Est GFR (MDRD) Non-Af 97, BUN/Creatinine Ratio 33.8 H, Glucose 137 H, Calcium 8.0, Total Bilirubin 0.74, AST 21, ALT 16, Alkaline Phosphatase 66, Total Protein 5.4 L, Albumin 3.1 L, Globulin 2.3, Albumin/Globulin Ratio 1.3 03/17/25 17:39: Blood Type Cancelled, Antibody Screen Cancelled 03/17/25 18:14: Blood Type A POSITIVE, Antibody Screen NEGATIVE, Crossmatch See Detail 03/17/25 18:14: Crossmatch See Detail 03/18/25 05:40: WBC 9.0, RBC 3.11 L, Hgb 8.6 L, Hct 25.6 L, MCV 82.3, MCH 27.7, MCHC 33.6 D, RDW Std Deviation 59.5 H, RDW Coeff of Ele 21.2 H, Plt Count 230, MPV 10.8, Sodium 136, Potassium 4.4, Chloride 107, Carbon Dioxide 20.0 L, Anion Gap 9, BUN 25 H, Creatinine 0.83, Estim Creat Clear Calc 74.41, Est GFR (MDRD) Non-Af 77, BUN/Creatinine Ratio 29.9 H, Glucose 114 H, Calcium 8.0 03/18/25 11:45: WBC 9.0, RBC 3.10 L, Hgb 7.7 L, Hct 25.6 L, MCV 82.6, MCH 24.8 L, MCHC 30.1 L D, RDW Std Deviation 61.8 H, RDW Coeff of Ele 21.2 H, Plt Count 251, MPV 10.6 Assessment & Plan Assessment/Plan (1) GI bleed: PLAN: Labs (in ED): Hemoglobin:?4.3 g/dL (down from 10.6 g/dL on 02/21/2025), indicative of significant blood loss. INR:?4.3, indicating therapeutic 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 is supratherapeutic. Other labs:?(Not provided; further tests such as a full metabolic panel, liver function tests, and cardiac enzymes may have been ordered). Assessment Diagnosis:?Acute upper GI bleed manifesting as melena, complicated by severe anemia and coagulopathy. Differential Diagnoses (DDx): Peptic Ulcer Disease:?The most common cause of acute upper GI bleeding. The patient's use of 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 significantly increases this risk. Gastritis or Esophagitis:?Inflammation of the stomach lining or esophagus, exacerbated by Coumadin. Esophageal Varices:?Dilated veins in the esophagus, often related to liver disease, which can cause massive bleeding. Ana-Min Tear:?A tear in the esophageal lining caused by severe retching or vomiting. Clinical Rationale:?The patient's presentation with melena and a substantial drop in hemoglobin, coupled with hemodynamic instability and a high INR, is highly concerning for a significant upper GI bleed. Her Coumadin therapy and underlying cardiac disease are major contributing factors to her presentation. Plan Resuscitation/Stabilization:?Continue hemodynamic support and blood product transfusions as needed. Medical Management:?Hold Coumadin. Continue Vitamin K administration as ordered and consider fresh frozen plasma (FFP) if bleeding continues or INR does not rapidly normalize. Diagnostic/Interventional:?Perform urgent upper endoscopy (esophagogastroduodenoscopy or EGD) to identify the bleeding source and provide endoscopic hemostasis. Charges/Coding Visit Charges Inpatient E&M: 18327 Init Hosp L3
--- NOTE | 2025-03-18 16:00 | PCM.PRE.AN2 ---
ASA Classification* ASA Classification ASA Classification: 3 and E Assessment & Plan Anesthesia* Anesthesia Assessment Anesthesia Assessment: Discussed sedation and/or anesthesia options, risks, benefits, and alternatives with patient/parents/legal guardian/POA. Questions invited. The patient/parents/legal guardian/POA seems to understand and agrees to proceed with anesthesia plan. Reviewed the physical assessment, medical history, allergy history and patient home medications list prior to surgery/procedure/anesthetic and documented any changes. Performed airway and anesthesia risk assessments. Anesthesia Type Anesthesia Type: MAC History Source History Obtained from:: Patient and Chart Anesthesia Focused Assessment* Temperature: 96.8 F Pulse Rate: 72 Blood Pressure: 107/61 Respiratory Rate: 22 Pulse Ox: 95 Oxygen Delivery Method: Nasal Cannula Oxygen Flow Rate (L/min): 2 Fraction of Inspired Oxygen (FIO2): 2 Airway Assessment Mouth opens: >3 cm Mallampati Score: II Teeth Condition: Missing (Very poor dentition) Neck Range of motion (ROM): Limited ROM Labs Anesthesia Preop lab: CBC WBC, (4.4-11.0) 9.0 K/mm3 Today, 11:45 RBC, (4.2-5.4) 3.10 M/mm3 L Today, 11:45 Hgb, (12.0-15.0) 7.7 g/dL L Today, 11:45 Hct, (37-47) 25.6 % L Today, 11:45 Plt Count, (150-450) 251 K/mm3 Today, 11:45 CHEMISTRY Potassium, (3.3-5.1) 4.4 mmol/L Today, 05:40 Sodium, (133-145) 136 mmol/L Today, 05:40 Magnesium, (1.5-2.2) 2.0 mg/dL 12/10/24, 20:16 Phosphorus, (2.7-4.5) 4.7 mg/dL H 08/24/24, 05:55 BUN, (4-19) 25 mg/dL H Today, 05:40 Creatinine, (0.70-1.20) 0.83 mg/dL Today, 05:40 Glucose, (70-99) 114 mg/dL H Today, 05:40 POC Glucose, (74-106) 122 mg/dL H 03/17/25, 16:27 TSH, (0.300-4.200) 1.910 uIU/mL 12/11/24, 05:36 COAG PT, (11.7-14.9) 42.4 SECONDS H 03/17/25, 17:08 Pre-Assessment Diagnosis/Proposed Procedure Planned Operative Procedure(s): EGD Anesthesia History 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 When Was Last Pacemaker Check QUESTION #4 FULL TEXT: You/Your Family Experience fever (hyperthermia) with Anesthesia Last Oral Intake Last Oral intake: Last Oral Intake NPO since Meds taken in AM with sips of water? Meds patient instructed to take am of surgery PONV PONV - paper products supervisor: PONV - paper products supervisor Female HX of Motion Sickness HX of N/V After Surgery Non-Smoker Duration of Surgery greater than 60 minutes Number of Risk Factors PONV Score Height & Weight Height & Weight: Anesthesia: Height & Weight Height 5 ft 6 in 03/18/25 09:13 Weight: 90.2 kg 03/18/25 09:13 Body Mass Index (BMI) 31.9 03/18/25 06:00 Respiratory Assessment Respiratory Assessment - paper products supervisor: Respiratory Tract Infection Hx - paper products supervisor Hx Respiratory Tract Infection STOP Sleep Apnea STOP Sleep Apnea - paper products supervisor: STOP Sleep Apnea - paper products supervisor Hx Hypertension Yes 03/18/25 12:27 Hx Sleep Apnea No 03/17/25 20:16 CPAP BIPAP Do you snore loudly (louder No 03/17/25 20:16 than talking or can be heard Do you often feel tired/ No 03/17/25 20:16 fatigued/ sleepy during daytime? Has anyone observed you stop No 03/17/25 20:16 breathing during sleep? STOP Results Negative 03/17/25 20:16 QUESTION #5 FULL TEXT : Do you snore loudly (louder than talking or can be heard through closed doors)? 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 Specify any problems Hx of Preganancy in last 3 No 03/17/25 20:16 Months Nurse Filling Out Transfusion [id number] 03/17/25 20:16 & Questions: Date: 03/17/25 03/17/25 20:16 Time: 21:15 03/17/25 20:16 Patient unable to answer at this time (ie. confused, unrespo /Reproduction History /Reproductive History - paper products supervisor: /Reproductive Hx- paper products supervisor Hx Now Gestational Age (in weeks): EDC: Hx Hx Para Hx Section SAB Active Medications Active Medications: Current Medications Generic Name Dose Route Start Last Admin Trade Name Freq PRN Reason Stop Dose Admin Acetaminophen 650 mg 03/17/25 21:08 03/18/25 03:32 Acetaminophen 325 Mg Tablet PO 650 mg Q6H PRN PRN Administration Pain 1-10 Or Fever>100.7 Pantoprazole Sodium 40 mg/ 100 mls @ 330 mls/hr 03/17/25 22:00 03/18/25 10:09 Sodium Chloride IV Infused Q12 ALFA Infusion Sodium Chloride 500 mls @ 15 mls/hr 03/17/25 21:52 IV PRN PRN Blood Transfusion Sodium Chloride 250 mls @ 15 mls/hr 03/17/25 21:52 03/18/25 11:35 IV 0 mls/hr .[id number] PRN Infusion Saline Flush Sodium Chloride 250 mls @ 15 mls/hr 03/17/25 21:52 IV .[id number] PRN Additional IVPB Infusion Melatonin 3 mg 03/17/25 21:08 Melatonin 3 Mg Tablet PO QHS PRN PRN INSOMNIA Ondansetron HCl 4 mg 03/17/25 21:08 Ondansetron 4 Mg/2 Ml Vial IV Q8H PRN PRN NAUSEA/VOMITING Sodium Chloride 10 - 40 ml 03/17/25 21:52 03/18/25 09:50 0.9% Saline Lock 10 Ml Syringe IV 20 ml UD PRN Administration SALINE FLUSH PFSH Medical History Cardiac LV ejection fraction of 20-34% Congestive heart failure Implantable cardioverter-defibrillator (ICD) in situ Acute exacerbation of CHF (congestive heart failure) Thoracoabdominal aortic aneurysm (TAAA) Ulcer of left lower extremity with fat layer exposed Bradycardia Heart failure with reduced ejection fraction Irregular heart beat Atrial fibrillation Former smoker Ulcer of right lower extremity Lower extremity edema Dyspnea on exertion Diastolic heart failure Acute lumbar myofascial strain Acute thoracic myofascial strain Back pain Debility, unspecified Return to work evaluation Right renal mass Angina of effort Acute hypokalemia Chest pain Non-ST elevation [place] (NSTEMI) Atrial flutter Borderline type 2 diabetes mellitus GERD (gastroesophageal reflux disease) Acute low back pain Elevated random blood glucose level Anxiety and depression Menopausal disorder Melanoma Preoperative clearance Flu vaccine need 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 Obesity Elevated troponin (08/09/20) Hyperlipidemia Nicotine dependence History of pulmonary embolus (PE) (08/10/20) Essential hypertension Wound of left lower extremity Insomnia Change in skin mole Heart failure with preserved ejection fraction Shortness of breath Osteoarthritis of left knee Chronic pain of left knee Tobacco use Arthritis Acute hypoxemic respiratory failure (08/09/20) Home Medications ?Medication ?Instructions ?Recorded ?Last Taken ?Type warfarin 5 mg tablet 5 mg PO QDAY #60 tabs 11/18/24 03/17/25 Rx furosemide 40 mg tablet 60 mg (1.5 x 40 mg) PO BID #180 02/13/25 Unknown Rx tabs carvedilol 6.25 mg tablet 6.25 mg PO BID #180 tabs 03/07/25 03/17/25 Rx potassium chloride 20 mEq 20 meq PO BID SUPPLEMENT #30 tabs 03/10/25 03/17/25 Rx tablet,extended release spironolactone 25 mg tablet 25 mg PO DAILY #30 tabs 03/10/25 Unknown Rx Allergy/AdvReac Type Severity Reaction Status Date / Time latex Allergy Mild rash Verified 03/17/25 16:21 trazodone Allergy Mild Tingling Verified 03/17/25 16:21 coconut Allergy Unknown PT UNABLE Verified 03/17/25 16:21 TO RESPOND-NEEDS F/U Fish Containing Products Allergy Unknown PT UNABLE Verified 03/17/25 16:21 TO RESPOND-NEEDS F/U propoxyphene (From Allergy Hives Verified 03/17/25 16:21 Darvocet-N) acetaminophen (From AdvReac Intermediate Nausea/Vom/ Verified 03/17/25 16:21 Darvocet-N) Diarrhea lactose (dairy lactose) AdvReac Intermediate Nausea/Vom/ Verified 03/17/25 16:21 Diarrhea Family History Mother Anxiety Arthritis Depression Hypertension Father Anxiety Arthritis Depression Hypertension Other Thyroid disorder Surgical History H/O tubal ligation History of cholecystectomy H/O elbow surgery Social History housing: house Smoking Status: Current every day smoker tobacco type: cigarettes alcohol intake: never substance use type: does not use what type of physical activity do you participate in: walking frequency: 5-6 times per week Review of Systems (Anesthesia) ROS Narrative System reviewed and no additional complaints, except as documented.
[2025-03-18] MEDS: Lidocaine 1% (5 ml sdv) 5 ML Vial IV (16:05)
--- NOTE | 2025-03-18 16:22 | POSTOP.ANE_ITS ---
Anesthesia: Postop Eval I
--- NOTE | 2025-03-18 16:22 | PCM.POST.ANE ---
Anesthesia: Postop Eval I Current Vital Signs Temperature: 98.1 F Pulse Rate: 110 Blood Pressure: 158/38 Respiratory Rate: 16 Pulse Ox: 100 Oxygen Delivery Method: Simple Mask Oxygen Flow Rate (L/min): 4 Assessment Airway patent: Yes Spontaneous unlabored respirations: Yes Mental status: Awake and Calm nausea: No Vomiting: No Anesthesia Complication: No Fluid Hydration Crystalloid volume administer (ml): 200 Total IV fluid infused: 200 Progress Note Anesthesia document: Postop Eval 1 completed: Yes
--- NOTE | 2025-03-18 16:23 | OP.EGD_ITS ---
Patient Name: Claribel Allison
--- NOTE | 2025-03-18 16:40 | POSTOPAN2_ITS ---
Anesthesia Postop Eval I Sum
--- NOTE | 2025-03-18 16:40 | PCM.POSTANE2 ---
Anesthesia Postop Eval I Sum Postop Eval Completion status Anesthesia document: Postop Eval 1 completed: Yes Anesthesia Postop Eval I Summary Anesthesia Postop Eval I Summary: Anesthesia Postop Eval I: Assessment Summary Airway patent Yes 03/18/25 16:23 Spontaneous unlabored Yes 03/18/25 16:23 respirations Mental status Awake,Calm 03/18/25 16:23 nausea No 03/18/25 16:23 Vomiting No 03/18/25 16:23 Anesthesia Postop Eval I: Fluid Summary Crystalloid volume administer 200 03/18/25 16:23 (ml) Colloids volume administered ( ml) Blood Product volume administered (ml) Total IV fluid infused 200 03/18/25 16:23 Anesthesia Postop Eval I: Summary Notes Anesthesia Complication No 03/18/25 16:23 Anesthesia Complication Comment: Post-operative progress note Anesthesia: Postop Eval II Evaluation Mental status: Awake and Calm Pain Level: 1 nausea: No Vomiting: No Complications Anesthesia Complication: No
--- NOTE | 2025-03-18 17:00 | EGD_PTH ---
PATIENT: ANDREIA ELAINE LOC: [facility] U#:[id number] AGE/SX: 69/F ROOM: [facility] RE03/17/[address]: Dr. Iglesia Benson MD : [id number] BED: 1 DIS: 03/23/2025 SPEC #: [id number] RECD: 03/18/25 17:32 STATUS: HIRO REQ #: [id number] HERNANDO: 03/18/25 17:[address]: Keshav Chandler DEPT: SURGICAL PATHOLOGY RECD BY: Andreas Golden ENTERED: 03/19/25 10:28 SP TYPE: EGD BIOPSY OTHR DR: DO Dr. Nahid Piper MD Dr. Prakash Chand, MD Heather Evans, HANDLE LATHE OPERATOR-C Alley Richardson, HANDLE LATHE OPERATOR-C Sravanthi Marroquin, HANDLE LATHE OPERATOR-C ZACK Chance Tissues: A - Gastric mucous membrane Procedures: Surgery Specimen Level IV HEADER OPERATION: EGD, biopsy PRE-OP DIAGNOSIS: GI bleed TISSUE SUBMITTED: A- Gastric body biopsy MICROSCOPIC DIAGNOSIS A. Gastric body, biopsy: - Active chronic gastritis. - POSITIVE FOR HELICOBACTER-LIKE ORGANISMS (H&E). MICROSCOPIC DESCRIPTION Slides are reviewed. GROSS DESCRIPTION A. Received in fixative is one container labeled with the patient's name and designated Gastric body biopsy. The specimen consists of multiple irregular fragments of davis tissue that in aggregate measure 0.7 x 0.3 x 0.1 cm. The specimen is totally submitted in one cassette. [place] 03/19/2025 CPT:33261
--- NOTE | 2025-03-18 21:03 | PCM.HOSP.N ---
Hospitalist Note Patient with complaint of dizziness. Orthostatics positive. Will given 250 cc bolus and repeat HH.
[2025-03-18 21:13] LABS: Hematocrit 24.9 % (37-47); Hemoglobin 7.6 g/dL (12.0-15.0)
[2025-03-18] MEDS: 0.9% Normal Saline (250mL Bag) 250 ML 999 ML IV (21:22)
[2025-03-19] VITALS (11 sets, daily range): BP systolic 102–121; BP diastolic 52–88; PULSE 68–108; RESP 16–22; TEMP 36.3–37.2; O2SAT 94–98; BMI 32.4
[2025-03-19 03:17] LABS: Hematocrit 24.3 % (37-47); Hemoglobin 7.5 g/dL (12.0-15.0); Immature Granulocytes Count 0.050 X10^3/uL (0.0-0.0); Mean Corp Hgb Conc 30.9 g/dL (32-36); Mean Corpuscular Volume 82.1 fL (81-99); Mean Platelet Vol. 10.7 fl (6.2-12.0); NRBC Flagged by Analyzer 1.9 % (0-5); POSITIVE MORPHOLOGY YES; Platelet Count 223 K/mm3 (150-450); RBC Distribution Width CV 21.4 % (11.6-14.6); RBC Distribution Width SD 61.3 fl (35.1-43.9); Red Blood Count 2.96 M/mm3 (4.2-5.4); White Blood Count 7.3 K/mm3 (4.4-11.0)
[2025-03-19 03:20] LABS: Differential Indicated SCAN CRITERIA MET
[2025-03-19 03:25] LABS: Prothrombin Time (Protime)PT. 17.1 SECONDS (11.7-14.9)
[2025-03-19 03:40] LABS: Anion Gap 7 (5-15); BUN 20 mg/dL (4-19); BUN/Creat Ratio 27.1 RATIO (10-20); Calcium,Total 7.8 mg/dL (7.6-11.0); Carbon Dioxide 20.8 mmol/L (21.0-32.0); Chloride 106 mmol/L (98-108); Estimated Creatinine Clearance 77.80 ml/min (50-250); Glucose 128 mg/dL (70-99); Magnesium 1.9 mg/dL (1.5-2.2); Potassium 4.0 mmol/L (3.3-5.1)
[2025-03-19 04:24] LABS: Anisocytosis 1+
--- NOTE | 2025-03-19 07:09 | PN.HOSP_ITS ---
Reason for Visit
--- NOTE | 2025-03-19 07:09 | PCM.PN.HOSP ---
Reason for Visit Chief Complaint: dark tarry stools Subjective Subjective Patient underwent EGD the day prior findings included acute gastritis biopsies taken. Hemoglobin this a.m. is 7.5. Plan is for patient to complete her workup with a colonoscopy. She had initially declined however she is not willing to proceed Objective Data Objective Data Vital Signs: Vital Signs Temp Pulse Resp BP Pulse Ox O2 Del Method O2 Flow Rate 99.0 F 105 H 22 H 121/76 H 94 Room Air 6 03/19/25 02:00 03/19/25 03:00 03/19/25 02:00 03/19/25 02:00 03/19/25 02:00 03/19/25 03:20 03/18/25 16:25 FiO2 2 03/18/25 16:01 Oxygen Flow Rate (L/min) 6 Oxygen Delivery Method Room Air Weight: 91.6 kg Body Mass Index (BMI) 32.4 Intake & Output: Intake and Output for Last 24 Hours 03/17/25 03/18/25 03/19/25 23:59 23:59 23:59 Intake Total 951 / 951 2455.5 / 2455.5 240 / 240 Output Total 350 / 350 Balance 951 / 951 2455.5 / 2455.5 -110 / -110 Lab / Micro Data 03/19/25 03:11 03/19/25 03:11 Labs: Laboratory Results - last 24 hr 03/18/25 11:45: WBC 9.0, RBC 3.10 L, Hgb 7.7 L, Hct 25.6 L, MCV 82.6, MCH 24.8 L, MCHC 30.1 L D, RDW Std Deviation 61.8 H, RDW Coeff of Ele 21.2 H, Plt Count 251, MPV 10.6 03/18/25 21:07: Hgb 7.6 L, Hct 24.9 L 03/19/25 03:11: WBC 7.3, RBC 2.96 L, Hgb 7.5 L, Hct 24.3 L, MCV 82.1, MCH 25.3 L, MCHC 30.9 L, RDW Std Deviation 61.3 H, RDW Coeff of Ele 21.4 H, Plt Count 223, MPV 10.7, Immature Gran % (Auto) 0.700, Neut % (Auto) 71.4 H, Lymph % (Auto) 14.5 L, [place] % (Auto) 11.3 H, Eos % (Auto) 1.4, Baso % (Auto) 0.7, Absolute Neuts (auto) 5.2, Absolute Lymphs (auto) 1.06, Nucleated RBC % 1.9, Anisocytosis 1+, PT 17.1 H, INR 1.4, Sodium 134, Potassium 4.0, Chloride 106, Carbon Dioxide 20.8 L, Anion Gap 7, BUN 20 H, Creatinine 0.75, Estim Creat Clear Calc 77.80, Est GFR (MDRD) Non-Af 87, BUN/Creatinine Ratio 27.1 H, Glucose 128 H, Calcium 7.8, Phosphorus 3.2, Magnesium 1.9 Physical Exam Narrative GENERAL: cooperative HEENT: Atraumatic; normocephalic EYES; Anicteric, Normal Conjunctiva NECK; supple, normal thyroid, RESPIRATORY: Diminished to auscultation CARDIOVASCULAR: Regular S1 S2, tachycardic GI: soft, normoactive bowel sounds, : No Renal angle tenderness; EXTREMITIES: No edema, no clubbing, MUSCULOSKELETAL: no muscle wasting NEURO: Awake; no lateralizing signs. SKIN: No Rash PSYCH; Flat affect Assessment & Plan Assessment/Plan (1) ABLA (acute blood loss anemia): (2) GI bleed: PLAN: Plan Patient is a 69-year-old lady who presented with black tarry stools for 3 days duration hemoglobin on admission was 4.3 admitted to the intensive care unit for further management 1. Acute blood loss anemia exacerbated by the use of systemic 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 with Coumadin ? Hemoglobin on admission was 4.3 INR was 4.3. Patient was found to be tachycardic and hypotensive resuscitated with IV fluid admitted to the intensive care unit. Patient was transfused with 3 unit PRBC subsequent every 6 H&H ordered kept n.p.o. after midnight consultation placed to [facility] underwent EGD the day prior findings included acute gastritis biopsies taken. Hemoglobin this a.m. is 7.5. Plan is for patient to complete her workup with a colonoscopy. She had initially declined however she is not willing to proceedPatient underwent EGD the day prior findings included acute gastritis biopsies taken. Hemoglobin this a.m. is 7.5. 2. Chronic persistent A-fib Patient is on Coumadin INR was slightly elevated on admission held 3. Chronic congestive heart failure with reduced ejection fraction ? Patient has known EF of 20%. Patient is on guideline directed therapy as outpatient. Currently remains compensated 4. Ischemic cardiomyopathy - status post AICD placement 5. Essential hypertension ? Patient antihypertensives held on admission given her relatively low blood pressure 6. Generalized osteoarthritis ? Pain meds as needed 7. Class II obesity with BMI of 32.1 ? Complicating care weight loss advised 8. DVT prophylaxis ? Patient already on Coumadin Time spent in the patient's overall evaluation,decision-making process, review of diagnostic data, adjustment of management, discussion with other providers, nursing nursing and ancillary staff involved in patient's care documentation, 36 Minutes Charges/Coding Visit Charges Inpatient E&M: 77506 Subs Hosp L2
[2025-03-19] MEDS: 0.9% Saline Lock 10 ML Syringe IV (09:47)
[2025-03-19] MEDS: Potassium Chloride Oral Tablet 20 MEQ PO ×2 (09:47→16:01)
[2025-03-19] MEDS: Pantoprazole Sodium 40 MG in 0.9% Normal Saline (100mL MB+) 100 ML 330 MG IV ×2 (09:57→20:33)
--- NOTE | 2025-03-19 10:37 | EX.PCM.PN.GI ---
Subjective Subjective 69y/o female presented to the emergency department on 03/17/2025 with c/o 3 days of melena. She denies fever, chills, nausea, vomiting, hematemesis, or BRBPR. Reports feeling weak, fatigued, lightheaded, and occasionally SOB. Denies chest pain. She has decreased appetite and generalized weakness for past 2 weeks, with approximately 30 pounds of weight gain in the past 6 months. Denies use of any nonsteroidals, alcohol, or caffeine. She is a smoker. She has never had a colonoscopy and denies any family history of colon cancer. EGD performed 03/18/2025 revealed acute gastritis, negative for active bleeding source (biopsies pending). Warfarin is on hold and INR is presently 1.4. Hemoglobin was 4.3 on admission, up to 8 after 3 units, presently downtrending 7.5. - she is tolerating PO without difficulty, had a large breakfast this morning - no BM since admission - continues to experience weakness and fatigue Objective Data Objective Data Vital Signs: Vital Signs Temp Pulse Resp BP Pulse Ox O2 Del Method O2 Flow Rate 98.4 F 95 20 H 110/88 H 94 Room Air 6 03/19/25 08:30 03/19/25 08:30 03/19/25 08:30 03/19/25 08:30 03/19/25 08:30 03/19/25 08:30 03/18/25 16:25 FiO2 2 03/18/25 16:01 Oxygen Flow Rate (L/min) 6 Oxygen Delivery Method Room Air Weight: 201 lb 15.095 oz Body Mass Index (BMI) 32.4 Intake & Output: Intake and Output for Last 24 Hours 03/17/25 03/18/25 03/19/25 23:59 23:59 23:59 Intake Total 951 / 951 2455.5 / 2455.5 340 / 340 Output Total 350 / 350 Balance 951 / 951 2455.5 / 2455.5 - Lab / Micro Data Attestation: I reviewed the patient's lab results. 03/19/25 03:11 03/19/25 03:11 Labs: Laboratory Results - last 24 hr 03/18/25 11:45: WBC 9.0, RBC 3.10 L, Hgb 7.7 L, Hct 25.6 L, MCV 82.6, MCH 24.8 L, MCHC 30.1 L D, RDW Std Deviation 61.8 H, RDW Coeff of Ele 21.2 H, Plt Count 251, MPV 10.6 03/18/25 21:07: Hgb 7.6 L, Hct 24.9 L 03/19/25 03:11: WBC 7.3, RBC 2.96 L, Hgb 7.5 L, Hct 24.3 L, MCV 82.1, MCH 25.3 L, MCHC 30.9 L, RDW Std Deviation 61.3 H, RDW Coeff of Ele 21.4 H, Plt Count 223, MPV 10.7, Immature Gran % (Auto) 0.700, Neut % (Auto) 71.4 H, Lymph % (Auto) 14.5 L, [place] % (Auto) 11.3 H, Eos % (Auto) 1.4, Baso % (Auto) 0.7, Absolute Neuts (auto) 5.2, Absolute Lymphs (auto) 1.06, Nucleated RBC % 1.9, Anisocytosis 1+, PT 17.1 H, INR 1.4, Sodium 134, Potassium 4.0, Chloride 106, Carbon Dioxide 20.8 L, Anion Gap 7, BUN 20 H, Creatinine 0.75, Estim Creat Clear Calc 77.80, Est GFR (MDRD) Non-Af 87, BUN/Creatinine Ratio 27.1 H, Glucose 128 H, Calcium 7.8, Phosphorus 3.2, Magnesium 1.9 Physical Exam Const no apparent distress Constitutional Narrative: agitated but cooperative General Appearance: well developed Orientation / Consciousness: oriented to person, oriented to place and oriented to time Nutritional Appearance: overweight Eyes PERRL Neck full ROM General: normal visual inspection Resp Effort and Inspection: able to speak in complete sentences and symmetric chest movement GI normal to inspection, nondistended, normoactive bowel sounds Palpation: soft Percussion: normal to percussion Rectal Exam: deferred Assessment & Plan Assessment/Plan (1) GI bleed: PLAN: Plan Continue IV PPI Begin a clear liquid diet Colonoscopy 03/20/2025 at 1115am, consent obtained, Miralax split dose bowel prep with an extra dose of Dulcolax and additional 34g of Miralax
[2025-03-19] MEDS: Polyethylene Glycol 3350 17 GM PACKET 34 GM PO (11:16)
[2025-03-19] MEDS: Polyethylene Glycol 3350 BOWEL PREP PO (16:00)
[2025-03-19 18:46] LABS: Hematocrit 26.1 % (37-47); Hemoglobin 7.8 g/dL (12.0-15.0)
--- NOTE | 2025-03-19 21:28 | NURSING ---
Patient reminded multiple times so far this shift that she needs to keep drinking her miralax bowel prep. Patient states don't push me. Patient reminded that she needs to have the prep done by midnight, and she said I'll try. Patient having frequent mostly liquid bowel movements but they are still dark brown at this time.
[2025-03-20] VITALS (30 sets, daily range): BP systolic 81–129; BP diastolic 40–102; PULSE 62–93; RESP 14–27; TEMP 36.1–37.1; O2SAT 90–99; BMI 32.4
--- NOTE | 2025-03-20 00:23 | NURSING ---
Patient still has a large pitcher full of her bowel prep left. State she just cannot drink any right now and that she just drank some 10-15 minutes ago. Patient educated that she needs to be NPO except for her bowel prep now and that if she is not clear from the prep by the AM, she may need enemas for the rest of her prep. Patient closed her eyes.
--- NOTE | 2025-03-20 02:19 | NURSING ---
Patient still has barely drank any prep since 7 pm. Upon awakening her to get vitals, this RN asked her if she would drink some gatorade while she was awake. Patient just closed her eyes.
[2025-03-20 03:29] LABS: Hematocrit 25.9 % (37-47); Hemoglobin 7.6 g/dL (12.0-15.0); Immature Granulocytes Count 0.030 X10^3/uL (0.0-0.0); Mean Corp Hgb Conc 29.3 g/dL (32-36); Mean Corpuscular Volume 84.4 fL (81-99); Mean Platelet Vol. 10.6 fl (6.2-12.0); NRBC Flagged by Analyzer 1.2 % (0-5); POSITIVE MORPHOLOGY YES; Platelet Count 210 K/mm3 (150-450); RBC Distribution Width CV 21.7 % (11.6-14.6); RBC Distribution Width SD 65.1 fl (35.1-43.9); Red Blood Count 3.07 M/mm3 (4.2-5.4); White Blood Count 6.5 K/mm3 (4.4-11.0)
[2025-03-20 03:38] LABS: Prothrombin Time (Protime)PT. 16.2 SECONDS (11.7-14.9)
[2025-03-20 03:39] LABS: Partial Thromboplast Time 27.0 Seconds (24.1-36.2)
[2025-03-20 03:58] LABS: Anion Gap 8 (5-15); BUN 14 mg/dL (4-19); BUN/Creat Ratio 19.6 RATIO (10-20); Calcium,Total 7.9 mg/dL (7.6-11.0); Carbon Dioxide 22.0 mmol/L (21.0-32.0); Chloride 104 mmol/L (98-108); Estimated Creatinine Clearance 77.80 ml/min (50-250); Glucose 112 mg/dL (70-99); Potassium 3.8 mmol/L (3.3-5.1)
[2025-03-20 04:08] LABS: Differential Indicated SCAN CRITERIA MET
[2025-03-20 04:52] LABS: Differential Comment SCANNED; Polychromasia 1+
[2025-03-20 04:54] LABS: Acanthocytes RARE; Schistocytes RARE
[2025-03-20 04:55] LABS: Anisocytosis 3+; Microcytosis 1+; Target Cells 1+
[2025-03-20] MEDS: fentaNYL 100 MCG/2 ML Ampul 25 MCG IV (05:13)
[2025-03-20] MEDS: 0.9% Saline Lock 10 ML Syringe IV (05:13)
--- NOTE | 2025-03-20 07:19 | PN.HOSP_ITS ---
Reason for Visit
--- NOTE | 2025-03-20 07:19 | PCM.PN.HOSP ---
Reason for Visit Chief Complaint: dark tarry stools Subjective Subjective Patient seen scheduled to undergo colonoscopy this a.m. Per nursing staff patient has not completed her prep. Hemoglobin down to 7.6 Objective Data Objective Data Vital Signs: Vital Signs Temp Pulse Resp BP Pulse Ox O2 Del Method O2 Flow Rate 97.6 F L 68 20 H 99/54 L 95 Room Air 6 03/20/25 03:00 03/20/25 06:00 03/20/25 06:00 03/20/25 06:00 03/20/25 06:00 03/20/25 06:00 03/18/25 16:25 FiO2 2 03/18/25 16:01 Oxygen Flow Rate (L/min) 6 Oxygen Delivery Method Room Air Weight: 91.6 kg Body Mass Index (BMI) 32.4 Intake & Output: Intake and Output for Last 24 Hours 03/18/25 03/19/25 03/20/25 23:59 23:59 23:59 Intake Total 2455.5 / 2455.5 969.75 / 969.75 Output Total 350 / 350 Balance 2455.5 / 2455.5 619.75 / 619.75 Lab / Micro Data 03/20/25 03:20 03/20/25 03:20 Labs: Laboratory Results - last 24 hr 03/19/25 17:50: Hgb Cancelled, Hct Cancelled, Diff Path Review Cancelled 03/19/25 18:28: Hgb 7.8 L, Hct 26.1 L 03/20/25 03:20: WBC 6.5, RBC 3.07 L, Hgb 7.6 L, Hct 25.9 L, MCV 84.4, MCH 24.8 L, MCHC 29.3 L D, RDW Std Deviation 65.1 H, RDW Coeff of Ele 21.7 H, Plt Count 210, MPV 10.6, Immature Gran % (Auto) 0.500, Neut % (Auto) 66.9, Lymph % (Auto) 16.7 L, [place] % (Auto) 13.3 H, Eos % (Auto) 2.0, Baso % (Auto) 0.6, Absolute Neuts (auto) 4.3, Absolute Lymphs (auto) 1.08, Nucleated RBC % 1.2, Differential Comment SCANNED, Platelet Estimate ADEQUATE, Polychromasia 1+, Anisocytosis 3+, Microcytosis 1+, Target Cells 1+, Ovalocytes 1+, Acanthocytes (Spur) RARE, Schistocytes RARE, PT 16.2 H, INR 1.3, APTT 27.0, Sodium 134, Potassium 3.8, Chloride 104, Carbon Dioxide 22.0, Anion Gap 8, BUN 14, Creatinine 0.72, Estim Creat Clear Calc 77.80, Est GFR (MDRD) Non-Af 91, BUN/Creatinine Ratio 19.6, Glucose 112 H, Calcium 7.9 Micro: Microbiology 03/19/25 19:48 Stool Stool Occult Blood ([place]) - Final Occult Blood Positive Physical Exam Narrative GENERAL: cooperative HEENT: Atraumatic; normocephalic EYES; Anicteric, Normal Conjunctiva NECK; supple, normal thyroid, RESPIRATORY: Diminished to auscultation CARDIOVASCULAR: Regular S1 S2, tachycardic GI: soft, normoactive bowel sounds, : No Renal angle tenderness; EXTREMITIES: No edema, no clubbing, MUSCULOSKELETAL: no muscle wasting NEURO: Awake; no lateralizing signs. SKIN: No Rash PSYCH; Flat affect Assessment & Plan Assessment/Plan (1) ABLA (acute blood loss anemia): (2) GI bleed: PLAN: Plan Patient is a 69-year-old lady who presented with black tarry stools for 3 days duration hemoglobin on admission was 4.3 admitted to the intensive care unit for further management 1. Acute blood loss anemia exacerbated by the use of systemic 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 with Coumadin ? Hemoglobin on admission was 4.3 INR was 4.3. Patient was found to be tachycardic and hypotensive resuscitated with IV fluid admitted to the intensive care unit. Patient was transfused with 3 unit PRBC subsequent every 6 H&H ordered kept n.p.o. after midnight consultation placed to [facility] underwent EGD the day prior findings included acute gastritis biopsies taken. Hemoglobin this a.m. is 7.5. Plan is for patient to complete her workup with a colonoscopy. She had initially declined however she is not willing to proceedPatient underwent EGD the day prior findings included acute gastritis biopsies taken. Hemoglobin this a.m. is 7.5. ? 03/20/2025;Patient seen scheduled to undergo colonoscopy this a.m. Per nursing staff patient has not completed her prep. Did encourage the need to complete the prep in order to have a good colonoscopy with good visualization. Hemoglobin 7.6 this a.m. 2. Chronic persistent A-fib Patient is on Coumadin INR was slightly elevated on admission held 3. Chronic congestive heart failure with reduced ejection fraction ? Patient has known EF of 20%. Patient is on guideline directed therapy as outpatient. Currently remains compensated 4. Ischemic cardiomyopathy - status post AICD placement 5. Essential hypertension ? Patient antihypertensives held on admission given her relatively low blood pressure 6. Generalized osteoarthritis ? Pain meds as needed 7. Class II obesity with BMI of 32.1 ? Complicating care weight loss advised 8. DVT prophylaxis ? Patient already on Coumadin Time spent in the patient's overall evaluation,decision-making process, review of diagnostic data, adjustment of management, discussion with other providers, nursing nursing and ancillary staff involved in patient's care documentation, 38 Minutes Charges/Coding Visit Charges Inpatient E&M: 37119 Subs Hosp L2
[2025-03-20] MEDS: Lactated Ringers 1,000 ML 15 ML IV (09:49)
--- NOTE | 2025-03-20 10:45 | COLBX_PTH ---
PATIENT: ANDREIA ELAINE LOC: [facility] U#:[id number] AGE/SX: 69/F ROOM: [facility] RE03/17/[address]: Dr. Iglesia Benson MD : [id number] BED: 1 DIS: 03/23/2025 SPEC #: [id number] RECD: 03/20/25 13:43 STATUS: HIRO REQ #: [id number] HERNANDO: 03/20/25 10:[address]: Keshva Chandler DEPT: SURGICAL PATHOLOGY RECD BY: Andreas Golden ENTERED: 03/20/25 14:47 SP TYPE: COLON BX OTHR DR: DO Dr. Nahid Piper MD Dr. Prakash Chand, MD Heather Evans, OIL RECOVERY OPERATOR-C Alley Richardson, OIL RECOVERY OPERATOR-C Sravanthi Marroquin, OIL RECOVERY OPERATOR-C ZACK Chance Tissues: A - Ascending colon B - COLON BIOPSY C - Transverse colon Procedures: Surgery Specimen Level IV HEADER OPERATION: Colonoscopy and polypectomy, clip application x2 PRE-OP DIAGNOSIS: Acute blood loss anemia TISSUE SUBMITTED: A- Ascending colon polyp, B- Hepatic flexure polyp, C- Transverse colon polyp x2 MICROSCOPIC DIAGNOSIS A. Ascending colon, polyp, biopsy: - Tubulovillous adenoma, multiple fragments. B. Hepatic flexure, polyp, biopsy: - Tubulovillous adenoma, multiple fragments. C. Transverse colon, polyp, biopsy: - Tubulovillous adenoma, multiple fragments. MICROSCOPIC DESCRIPTION Slides are reviewed. GROSS DESCRIPTION A. Received in fixative is one container labeled with the patient's name and designated Ascending colon polyp. The specimen consists of multiple irregular fragments of davis tissue that in aggregate measure 2.5 x 2 x 0.2 cm, admixed with flocculent material. The specimen is totally submitted in one cassette. B. Received in fixative is one container labeled with the patient's name and designated Hepatic flexure polyp. The specimen consists of multiple irregular fragments of davis tissue that in aggregate measure 2.5 x 0.7 x 0.3 cm. The specimen is totally submitted in one cassette. C. Received in fixative is one container labeled with the patient's name and designated Transverse colon polyp x2. The specimen consists of multiple irregular fragments of daivs tissue that in aggregate measure 2.5 x 1.9 x 0.3 cm, admixed with flocculent material. The specimen is totally submitted in one cassette. AK 03/20/2025 CPT:84939b8
--- NOTE | 2025-03-20 10:54 | PCM.PRE.AN2 ---
ASA Classification* ASA Classification ASA Classification: 3 Assessment & Plan Anesthesia* Anesthesia Assessment Anesthesia Assessment: Discussed sedation and/or anesthesia options, risks, benefits, and alternatives with patient/parents/legal guardian/POA. Questions invited. The patient/parents/legal guardian/POA seems to understand and agrees to proceed with anesthesia plan. Reviewed the physical assessment, medical history, allergy history and patient home medications list prior to surgery/procedure/anesthetic and documented any changes. Performed airway and anesthesia risk assessments. Anesthesia Type Anesthesia Type: MAC History Source History Obtained from:: Patient and Chart Anesthesia Focused Assessment* Temperature: 98.1 F Pulse Rate: 69 Blood Pressure: 110/68 Respiratory Rate: 18 Pulse Ox: 94 Oxygen Delivery Method: Room Air Oxygen Flow Rate (L/min): 6 Fraction of Inspired Oxygen (FIO2): 2 Airway Assessment Mouth opens: 2 cm Mallampati Score: IV Teeth Condition: Missing (Patient is edentulous.) Neck Range of motion (ROM): Limited ROM (Somewhat Decreased) Labs Anesthesia Preop lab: CBC WBC, (4.4-11.0) 6.5 K/mm3 Today, 03:20 RBC, (4.2-5.4) 3.07 M/mm3 L Today, 03:20 Hgb, (12.0-15.0) 7.6 g/dL L Today, 03:20 Hct, (37-47) 25.9 % L Today, 03:20 Plt Count, (150-450) 210 K/mm3 Today, 03:20 CHEMISTRY Potassium, (3.3-5.1) 3.8 mmol/L Today, 03:20 Sodium, (133-145) 134 mmol/L Today, 03:20 Magnesium, (1.5-2.2) 1.9 mg/dL 03/19/25, 03:11 Phosphorus, (2.7-4.5) 3.2 mg/dL 03/19/25, 03:11 BUN, (4-19) 14 mg/dL Today, 03:20 Creatinine, (0.70-1.20) 0.72 mg/dL Today, 03:20 Glucose, (70-99) 112 mg/dL H Today, 03:20 POC Glucose, (74-106) 122 mg/dL H 03/17/25, 16:27 TSH, (0.300-4.200) 1.910 uIU/mL 12/11/24, 05:36 COAG PT, (11.7-14.9) 16.2 SECONDS H Today, 03:20 Pre-Assessment Diagnosis/Proposed Procedure Planned Operative Procedure(s): Colonoscopy Anesthesia History 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 When Was Last Pacemaker Check QUESTION #4 FULL TEXT: You/Your Family Experience fever (hyperthermia) with Anesthesia Last Oral Intake Last Oral intake: Last Oral Intake NPO since 0000 Meds taken in AM with sips of water? 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 Female HX of Motion Sickness HX of N/V After Surgery Non-Smoker Duration of Surgery greater than 60 minutes Number of Risk Factors PONV Score Height & Weight Height & Weight: Anesthesia: Height & Weight Height 5 ft 6 in 03/18/25 09:13 Weight: 91.6 kg 03/20/25 05:15 Body Mass Index (BMI) 32.4 03/20/25 05:15 Respiratory Assessment Respiratory Assessment - truck supervisor: Respiratory Tract Infection Hx - truck supervisor Hx Respiratory Tract Infection No STOP Sleep Apnea STOP Sleep Apnea - truck supervisor: STOP Sleep Apnea - truck supervisor Hx Hypertension Yes 03/19/25 16:03 Hx Sleep Apnea No 03/17/25 20:16 CPAP BIPAP Do you snore loudly (louder No 03/17/25 20:16 than talking or can be heard Do you often feel tired/ No 03/17/25 20:16 fatigued/ sleepy during daytime? Has anyone observed you stop No 03/17/25 20:16 breathing during sleep? STOP Results Negative 03/17/25 20:16 QUESTION #5 FULL TEXT : Do you snore loudly (louder than talking or can be heard through closed doors)? 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 Specify any problems Hx of Preganancy in last 3 No 03/17/25 20:16 Months Nurse Filling Out Transfusion [email or web address] 03/17/25 20:16 & Questions: Date: 03/17/25 03/17/25 20:16 Time: 21:15 03/17/25 20:16 Patient unable to answer at this time (ie. confused, unrespo /Reproduction History /Reproductive History - truck supervisor: /Reproductive Hx- truck supervisor Hx Now Gestational Age (in weeks): EDC: Hx Hx Para Hx Section SAB Active Medications Active Medications: Current Medications Generic Name Dose Route Start Last Admin Trade Name Freq PRN Reason Stop Dose Admin Acetaminophen 650 mg 03/17/25 21:08 03/19/25 10:49 Acetaminophen 325 Mg Tablet PO 650 mg Q6H PRN PRN Administration Pain 1-10 Or Fever>100.7 Carvedilol 6.25 mg 03/19/25 09:40 03/19/25 16:01 Carvedilol 6.25 Mg Tablet PO 6.25 mg BIDCM ALFA Administration Protocol Furosemide 60 mg 03/19/25 10:00 03/19/25 14:05 Furosemide 40 Mg Tablet PO 60 mg BIDLX ALFA Administration Protocol Pantoprazole Sodium 40 mg/ 100 mls @ 330 mls/hr 03/17/25 22:00 03/19/25 20:55 Sodium Chloride IV Infused Q12 ALFA Infusion Sodium Chloride 500 mls @ 15 mls/hr 03/17/25 21:52 IV PRN PRN Blood Transfusion Sodium Chloride 250 mls @ 15 mls/hr 03/17/25 21:52 03/19/25 12:14 IV 0 mls/hr .[id number] PRN Infusion Saline Flush Sodium Chloride 250 mls @ 15 mls/hr 03/17/25 21:52 IV .[id number] PRN Additional IVPB Infusion Lactated Ringer's 1,000 mls @ 15 mls/hr 03/20/25 09:45 03/20/25 09:49 IV 15 mls/hr .Q48H ALFA Administration Melatonin 3 mg 03/17/25 21:08 Melatonin 3 Mg Tablet PO QHS PRN PRN INSOMNIA Ondansetron HCl 4 mg 03/17/25 21:08 Ondansetron 4 Mg/2 Ml Vial IV Q8H PRN PRN NAUSEA/VOMITING Polyethylene Glycol 0 bottle 03/19/25 16:00 03/19/25 16:00 Polyethylene Glycol 3350 Bowel Prep PO 03/20/25 15:00 1 bottle 1600 ALFA Administration Potassium Chloride 20 meq 03/19/25 10:00 03/19/25 16:01 Potassium Chloride Oral Tablet 20 Meq PO 20 meq BIDCM ALFA Administration Sodium Chloride 10 - 40 ml 03/17/25 21:52 03/20/25 05:13 0.9% Saline Lock 10 Ml Syringe IV 20 ml UD PRN Administration SALINE FLUSH PFSH Medical History Cardiac LV ejection fraction of 20-34% Congestive heart failure Implantable cardioverter-defibrillator (ICD) in situ Acute exacerbation of CHF (congestive heart failure) Thoracoabdominal aortic aneurysm (TAAA) Ulcer of left lower extremity with fat layer exposed Bradycardia Heart failure with reduced ejection fraction Irregular heart beat Atrial fibrillation Former smoker Ulcer of right lower extremity Lower extremity edema Dyspnea on exertion Diastolic heart failure Acute lumbar myofascial strain Acute thoracic myofascial strain Back pain Debility, unspecified Return to work evaluation Right renal mass Angina of effort Acute hypokalemia Chest pain Non-ST elevation ID (NSTEMI) Atrial flutter Borderline type 2 diabetes mellitus GERD (gastroesophageal reflux disease) Acute low back pain Elevated random blood glucose level Anxiety and depression Menopausal disorder Melanoma Preoperative clearance Flu vaccine need Current use of intermediate designer 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 Obesity Elevated troponin (08/09/20) Hyperlipidemia Nicotine dependence History of pulmonary embolus (PE) (08/10/20) Essential hypertension Wound of left lower extremity Insomnia Change in skin mole Heart failure with preserved ejection fraction Shortness of breath Osteoarthritis of left knee Chronic pain of left knee Tobacco use Arthritis Acute hypoxemic respiratory failure (08/09/20) Home Medications ?Medication ?Instructions ?Recorded ?Last Taken ?Type warfarin 5 mg tablet 5 mg PO QDAY #60 tabs 11/18/24 03/17/25 Rx furosemide 40 mg tablet 60 mg (1.5 x 40 mg) PO BID #180 02/13/25 Unknown Rx tabs carvedilol 6.25 mg tablet 6.25 mg PO BID #180 tabs 03/07/25 03/17/25 Rx potassium chloride 20 mEq 20 meq PO BID SUPPLEMENT #30 tabs 03/10/25 03/17/25 Rx tablet,extended release spironolactone 25 mg tablet 25 mg PO DAILY #30 tabs 03/10/25 Unknown Rx Allergy/AdvReac Type Severity Reaction Status Date / Time latex Allergy Mild rash Verified 03/17/25 16:21 trazodone Allergy Mild Tingling Verified 03/17/25 16:21 coconut Allergy Unknown PT UNABLE Verified 03/17/25 16:21 TO RESPOND-NEEDS F/U Fish Containing Products Allergy Unknown PT UNABLE Verified 03/17/25 16:21 TO RESPOND-NEEDS F/U propoxyphene (From Allergy Hives Verified 03/17/25 16:21 Darvocet-N) acetaminophen (From AdvReac Intermediate Nausea/Vom/ Verified 03/17/25 16:21 Darvocet-N) Diarrhea lactose (dairy lactose) AdvReac Intermediate Nausea/Vom/ Verified 03/17/25 16:21 Diarrhea Family History Mother Anxiety Arthritis Depression Hypertension Father Anxiety Arthritis Depression Hypertension Other Thyroid disorder Surgical History (Updated 03/20/25 @ 11:[address] Sharif Victor MD) H/O esophagogastroduodenoscopy H/O tubal ligation History of cholecystectomy H/O elbow surgery Social History housing: house Smoking Status: Current every day smoker tobacco type: cigarettes alcohol intake: never substance use type: does not use what type of physical activity do you participate in: walking frequency: 5-6 times per week Review of Systems (Anesthesia) ROS Narrative System reviewed and no additional complaints, except as documented.
--- NOTE | 2025-03-20 11:56 | PCM.PN.BLA ---
Progress Note Patient underwent an upper endoscopy and was not discovered to have any etiology of her severe iron deficiency anemia. She agreed to undergo colonoscopy. She took the prep last night. She has been n.p.o. since midnight. Physical Exam Const alert, oriented x3, no apparent distress and healthy appearing General Appearance: cooperative GI normal to inspection, nondistended, normoactive bowel sounds, soft to palpation, non-tender and non-distended Percussion: normal to percussion Rectal Exam: deferred Assessment & Plan Assessment/Plan (1) ABLA (acute blood loss anemia): PLAN: Patient will undergo colonoscopy. She was explained alternatives, risk and benefits include nondistended bleeding, infection, subsequent perforation, need for was urgent. She have an ASA of 3. Visit Charges Inpatient E&M: 63331 Subs Hosp L2
--- NOTE | 2025-03-20 11:57 | POSTOP.ANE_ITS ---
Anesthesia: Postop Eval I
--- NOTE | 2025-03-20 11:57 | PCM.POST.ANE ---
Anesthesia: Postop Eval I Current Vital Signs Temperature: 97.1 F Pulse Rate: 62 Blood Pressure: 100/56 Respiratory Rate: 16 Pulse Ox: 94 Oxygen Delivery Method: Nasal Cannula Oxygen Flow Rate (L/min): 2 Assessment Airway patent: Yes Spontaneous unlabored respirations: Yes Mental status: Asleep nausea: No Vomiting: No Anesthesia Complication: No Fluid Hydration Crystalloid volume administer (ml): 600 Total IV fluid infused: 600 Progress Note Anesthesia document: Postop Eval 1 completed: Yes
--- NOTE | 2025-03-20 12:51 | OP.COLON_ITS ---
Patient Name: Claribel Allison
[2025-03-20] MEDS: Potassium Chloride Oral Tablet 20 MEQ PO ×2 (14:06→17:00)
[2025-03-20] MEDS: Pantoprazole Sodium 40 MG in 0.9% Normal Saline (100mL MB+) 100 ML 330 MG IV ×2 (14:08→21:28)
--- NOTE | 2025-03-20 16:23 | POSTOPAN2_ITS ---
Anesthesia Postop Eval I Sum
--- NOTE | 2025-03-20 16:23 | PCM.POSTANE2 ---
Anesthesia Postop Eval I Sum Postop Eval Completion status Anesthesia document: Postop Eval 1 completed: Yes Anesthesia Postop Eval I Summary Anesthesia Postop Eval I Summary: Anesthesia Postop Eval I: Assessment Summary Airway patent Yes 03/20/25 11:58 [email or web address] Spontaneous unlabored Yes 03/20/25 11:58 [email or web address] respirations Mental status Asleep 03/20/25 11:58 [email or web address] nausea No 03/20/25 11:58 [email or web address] Vomiting No 03/20/25 11:58 [email or web address] Anesthesia Postop Eval I: Fluid Summary Crystalloid volume administer 600 03/20/25 11:58 [email or web address] (ml) Colloids volume administered ( ml) Blood Product volume administered (ml) Total IV fluid infused 600 03/20/25 11:58 [email or web address] Anesthesia Postop Eval I: Summary Notes Anesthesia Complication No 03/20/25 11:58 [email or web address] Anesthesia Complication Comment: Post-operative progress note Anesthesia: Postop Eval II Evaluation Mental status: Awake and Calm Pain Level: 0 nausea: No Vomiting: No Complications Anesthesia Complication: No
--- NOTE | 2025-03-20 19:52 | ANES.CONFIRM ---
Anesthesia: Confirm Documents Multiple Procedures on Account (2) Confirmed Documents: Yes
[2025-03-21] VITALS (12 sets, daily range): BP systolic 86–129; BP diastolic 48–92; PULSE 70–106; RESP 13–18; TEMP 36.6–36.7; O2SAT 92–100; BMI 32.6
[2025-03-21 05:34] LABS: Hematocrit 25.1 % (37-47); Hemoglobin 7.4 g/dL (12.0-15.0); Immature Granulocytes Count 0.030 X10^3/uL (0.0-0.0); Mean Corp Hgb Conc 29.5 g/dL (32-36); Mean Corpuscular Volume 84.2 fL (81-99); Mean Platelet Vol. 11.1 fl (6.2-12.0); NRBC Flagged by Analyzer 0.7 % (0-5); POSITIVE MORPHOLOGY YES; Platelet Count 244 K/mm3 (150-450); RBC Distribution Width CV 21.9 % (11.6-14.6); RBC Distribution Width SD 67.1 fl (35.1-43.9); Red Blood Count 2.98 M/mm3 (4.2-5.4); White Blood Count 7.0 K/mm3 (4.4-11.0)
[2025-03-21 05:41] LABS: Differential Indicated SCAN CRITERIA MET
[2025-03-21 06:05] LABS: Anion Gap 9 (5-15); BUN 13 mg/dL (4-19); BUN/Creat Ratio 15.0 RATIO (10-20); Calcium,Total 7.4 mg/dL (7.6-11.0); Carbon Dioxide 21.7 mmol/L (21.0-32.0); Chloride 105 mmol/L (98-108); Estimated Creatinine Clearance 72.57 ml/min (50-250); Glucose 105 mg/dL (70-99); Potassium 3.8 mmol/L (3.3-5.1)
[2025-03-21 06:43] LABS: Anisocytosis 2+; Polychromasia 1+
[2025-03-21 06:45] LABS: Burr Cells RARE; Schistocytes RARE
[2025-03-21 06:48] LABS: Differential Comment SCANNED; Hypochromasia RARE
--- NOTE | 2025-03-21 07:47 | PN.HOSP_ITS ---
Reason for Visit
--- NOTE | 2025-03-21 07:47 | PCM.PN.HOSP ---
Reason for Visit Chief Complaint: dark tarry stools Objective Data Objective Data Vital Signs: Vital Signs Temp Pulse Resp BP Pulse Ox O2 Del Method O2 Flow Rate 98.7 F 70 16 103/63 92 Nasal Cannula 2 03/20/25 21:00 03/21/25 06:00 03/21/25 06:00 03/21/25 06:00 03/21/25 06:00 03/21/25 07:22 03/21/25 07:22 FiO2 2 03/20/25 11:06 Oxygen Flow Rate (L/min) 2 Oxygen Delivery Method Nasal Cannula Weight: 203 lb 0.732 oz Body Mass Index (BMI) 32.6 Intake & Output: Intake and Output for Last 24 Hours 03/19/25 03/20/25 03/21/25 23:59 23:59 23:59 Intake Total 969.75 / 969.75 277 / 277 Output Total 350 / 350 303 / 603 300 / 300 Balance 619.75 / 619.75 -26 / -326 -300 / -300 Lab / Micro Data 03/21/25 05:16 03/21/25 05:16 Labs: Laboratory Results - last 24 hr 03/21/25 05:16: WBC 7.0, RBC 2.98 L, Hgb 7.4 L, Hct 25.1 L, MCV 84.2, MCH 24.8 L, MCHC 29.5 L, RDW Std Deviation 67.1 H, RDW Coeff of Ele 21.9 H, Plt Count 244, MPV 11.1, Immature Gran % (Auto) 0.400, Neut % (Auto) 71.8 H, Lymph % (Auto) 14.4 L, [place] % (Auto) 11.8 H, Eos % (Auto) 1.3, Baso % (Auto) 0.3, Absolute Neuts (auto) 5.0, Absolute Lymphs (auto) 1.00, Nucleated RBC % 0.7, Differential Comment SCANNED, Plt Morphology Comment LARGE, Polychromasia 1+, Hypochromasia RARE, Anisocytosis 2+, Ovalocytes 1+, Shivani Cells RARE, Schistocytes RARE, Sodium 136, Potassium 3.8, Chloride 105, Carbon Dioxide 21.7, Anion Gap 9, BUN 13, Creatinine 0.86, Estim Creat Clear Calc 72.57, Est GFR (MDRD) Non-Af 74, BUN/Creatinine Ratio 15.0, Glucose 105 H, Calcium 7.4 L Micro: Microbiology 03/19/25 19:48 Stool Stool Occult Blood ([facility]) - Final Occult Blood Positive Physical Exam Narrative Seen and examined Patient is feeling comfortable with no shortness of breath. Heart rate in 90s, atrial flutter on bus monitor. Had colonoscopy yesterday and polypectomy done Physical exam General: Alert, Oriented x3, Cooperative. BMI 32.8 kg/m? HEENT: Atraumatic, PERRLA, EOMI, Normocephalic. Oral: No Gingival or Mucosal Lesions/ Ulcerations Neck: Supple, No JVD, Negative Carotid Bruits Chest wall/Lungs: Air entry diminished in bilateral lung bases. No crepitation/rhonchi Cardiovascular: regular atrial flutter with 4:1 conduction, systolic murmur. Left sublingual patient Abdomen: Bowel Sounds Present, Soft, Non Tender, Non-Distended : No dysuria. No renal angle tenderness. No suprapubic tenderness. Extremities: No edema, Capillary Refill Less than 3 Seconds Skin: No rashes, No breakdown Musculoskeletal: No Tenderness to Palpation of Joints or Extremities Neurological: Cranial nerves II-XII grossly intact, DTR 2+/4. No acute focal neurological deficit. Psych/Mental Status: Normal Affect, Appropriate. HEENT normocephalic, head/scalp atraumatic, hearing grossly normal bilaterally, nasal mucous membranes and turbinates normal and moist oral mucous membranes Eyes PERRL, EOMs intact bilaterally and conjunctivae normal Neck full ROM Chest inspection of chest normal Resp normal respiratory effort, normal air movement, no use of accessory muscles and clear to auscultation bilaterally Cardio no murmurs and peripheral pulses 2+ throughout Cardio Narrative: Tachycardic, irregular rhythm. GI normal to inspection, nondistended, normoactive bowel sounds, soft to palpation, non-tender and non-distended Back/Spine normal ROM Extremity normal to inspection, full ROM and no pedal edema Skin no rashes or lesions noted Psych mental status grossly normal Assessment & Plan Assessment/Plan (1) ABLA (acute blood loss anemia): (2) GI bleed: PLAN: Plan Patient is a 69-year-old lady who presented with black tarry stools for 3 days duration hemoglobin on admission was 4.3 admitted to the intensive care unit for further management 1. Acute blood loss anemia exacerbated by the use of systemic 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 with Coumadin ? Hemoglobin on admission was 4.3 INR was 4.3. Patient was found to be tachycardic and hypotensive resuscitated with IV fluid admitted to the intensive care unit. Patient was transfused with 3 unit PRBC subsequent every 6 H&H ordered kept n.p.o. after midnight consultation placed to GIPatient underwent EGD the day prior findings included acute gastritis biopsies taken. Hemoglobin this a.m. is 7.5. Plan is for patient to complete her workup with a colonoscopy. She had initially declined however she is not willing to proceedPatient underwent EGD the day prior findings included acute gastritis biopsies taken. Hemoglobin this a.m. is 7.5. ? 03/20/2025;Patient seen scheduled to undergo colonoscopy this a.m. Per nursing staff patient has not completed her prep. Did encourage the need to complete the prep in order to have a good colonoscopy with good visualization. Hemoglobin 7.6 this a.m. 03/21: Patient had colonoscopy on 03/20. H&H 7.4/25% today. Platelet count 200 44K. Impression: - Preparation of the colon was fair. - Multiple 25 mm polyps in the transverse colon, at the hepatic flexure and in the ascending colon, removed piecemeal using a hot snare. Resected and retrieved. - Diverticulosis in the recto-sigmoid colon, in the sigmoid colon and in the descending colon. - Stool in the rectum, in the recto-sigmoid colon, in the sigmoid colon and in the descending colon. Recommendation: - Repeat colonoscopy in 1 year for surveillance. 2. Chronic persistent A-fib/atrial flutter Patient is on Coumadin INR was slightly elevated on admission held 03/21 heart rate is controlled, irregular atrial flutter on bus monitor. 3. Chronic congestive heart failure with reduced ejection fraction ? Patient has known EF of 20%. Patient is on guideline directed therapy as outpatient. Currently remains compensated 03/21: No tachypnea or hypoxia. 4. Ischemic cardiomyopathy - status post AICD placement 5. Essential hypertension ? Patient antihypertensives held on admission given her relatively low blood pressure 6. Generalized osteoarthritis ? Pain meds as needed 7. Class II obesity with BMI of 32.1 ? Complicating care weight loss advised 8. Hypocalcemia: Calcium is 7.2. IV calcium gluconate ordered. DVT prophylaxis ? 03/21 warfarin is on hold. Bilateral AC Microbiology Past 72 Hours 03/19/25 19:48 Stool Stool Occult Blood ([place]) - Final Occult Blood Positive Laboratory Results 03/21/25 05:16: WBC 7.0, RBC 2.98 L, Hgb 7.4 L, Hct 25.1 L, MCV 84.2, MCH 24.8 L, MCHC 29.5 L, RDW Std Deviation 67.1 H, RDW Coeff of Ele 21.9 H, Plt Count 244, MPV 11.1, Immature Gran % (Auto) 0.400, Neut % (Auto) 71.8 H, Lymph % (Auto) 14.4 L, [place] % (Auto) 11.8 H, Eos % (Auto) 1.3, Baso % (Auto) 0.3, Absolute Neuts (auto) 5.0, Absolute Lymphs (auto) 1.00, Nucleated RBC % 0.7, Differential Comment SCANNED, Plt Morphology Comment LARGE, Polychromasia 1+, Hypochromasia RARE, Anisocytosis 2+, Ovalocytes 1+, Shivani Cells RARE, Schistocytes RARE, Sodium 136, Potassium 3.8, Chloride 105, Carbon Dioxide 21.7, Anion Gap 9, BUN 13, Creatinine 0.86, Estim Creat Clear Calc 72.57, Est GFR (MDRD) Non-Af 74, BUN/Creatinine Ratio 15.0, Glucose 105 H, Calcium 7.4 L Charges/Coding Visit Charges Inpatient E&M: 30040 Subs Hosp L3
[2025-03-21] MEDS: Potassium Chloride Oral Tablet 20 MEQ PO ×2 (08:01→16:31)
[2025-03-21] MEDS: Pantoprazole Sodium 40 MG in 0.9% Normal Saline (100mL MB+) 100 ML 330 MG IV ×2 (09:30→22:21)
[2025-03-21] MEDS: Calcium Gluconate IV 2 GM in 0.9% Normal Saline (100mL Bag) 100 ML IV (10:42)
--- NOTE | 2025-03-21 13:58 | CASEMGMT ---
Addendum entered by Glenda Cristina 03/21/25 14:56: [facility] requests this specifications writer to deliver a FWW from stock. Standard FWW delivered to the pt at this time. Consignment form signed by pt. Copy placed in chart. Pt denies further needs. Original Note: Dr Benson anticipates pt will DC tomorrow. PT reports that they are recommending a FWW for the pt. RN CM to the pt room at this time. Pt adamantly declines the need for HH or OP Tx but states that she would be willing to receive a FWW through her insurance. A verbal list of local DME providers were given to the pt at this time. Pt prefers [facility]. FWW Rx singed by Dr Benson. Rx sent to [facility] via [facility]. Rx placed in pt's chart. Pt denies any further DC needs and states that her daughter will drive her home once discharged.
[2025-03-21] MEDS: Sodium Ferric Gluconat/Sucrose 250 MG in 0.9% Normal Saline (250mL Bag) 250 ML 135 MG IV (17:18)
[2025-03-21 17:55] LABS: Magnesium 1.6 mg/dL (1.5-2.2)
[2025-03-21 20:51] LABS: Prothrombin Time (Protime)PT. 17.1 SECONDS (11.7-14.9)
[2025-03-21] MEDS: 0.9% Normal Saline (250mL Bag) 250 ML 15 ML IV (22:24)
[2025-03-22] VITALS (7 sets, daily range): BP systolic 90–135; BP diastolic 47–63; PULSE 62–98; RESP 18–20; TEMP 36.4–38.2; O2SAT 93–97; BMI 32.5
--- NOTE | 2025-03-22 00:58 | PCM.PN.BLA ---
Progress Note Patient underwent her first colonoscopy yesterday. She was discovered to have multiple polyps that were removed with bleeding stigmata. She is not having any abdominal pain or signs or symptoms of bleeding at this time. Physical Exam Const alert, oriented x3, no apparent distress and healthy appearing General Appearance: cooperative GI normal to inspection, nondistended, normoactive bowel sounds, soft to palpation, non-tender and non-distended Percussion: normal to percussion Rectal Exam: deferred Assessment & Plan Assessment/Plan (1) GI bleed: (2) ABLA (acute blood loss anemia): PLAN: Assessment Severe Iron Deficiency Anemia (Hgb 4.4 g/dL):?Likely secondary to chronic gastrointestinal bleeding from colonic polyps. Currently stable post-transfusion. Colonic Polyps with Bleeding Stigmata:?Multiple polyps discovered and removed during colonoscopy. Etiology suspected to be adenomatous; pathology pending. Status Post Multiple Blood Transfusions:?Hgb stabilized; no reported adverse reactions to transfusions. Age (69 years old):?Patient is in an age group with increased risk for colorectal cancer and adenomatous polyps. Plan Diagnostics: Monitor complete blood count to ensure continued Hgb stability post-transfusion. Expedite pathology results from the removed colonic polyps to confirm adenoma diagnosis and rule out malignancy. Consider further workup for other potential sources of GI bleeding if anemia recurs or if pathology results indicate a non-polyp cause (e.g., outpatient capsule endoscopy). Therapeutics: Continue iron supplementation therapy. Monitor vital signs regularly. Ensure adequate hydration. Visit Charges Inpatient E&M: 22249 [facility] L3
[2025-03-22 05:38] LABS: Hematocrit 25.0 % (37-47); Hemoglobin 7.4 g/dL (12.0-15.0); Immature Granulocytes Count 0.030 X10^3/uL (0.0-0.0); Mean Corp Hgb Conc 29.6 g/dL (32-36); Mean Corpuscular Volume 83.3 fL (81-99); Mean Platelet Vol. 10.8 fl (6.2-12.0); NRBC Flagged by Analyzer 1.1 % (0-5); POSITIVE MORPHOLOGY YES; Platelet Count 270 K/mm3 (150-450); RBC Distribution Width CV 21.6 % (11.6-14.6); RBC Distribution Width SD 65.7 fl (35.1-43.9); Red Blood Count 3.00 M/mm3 (4.2-5.4); White Blood Count 7.3 K/mm3 (4.4-11.0)
[2025-03-22 05:53] LABS: Anion Gap 9 (5-15); BUN 15 mg/dL (4-19); BUN/Creat Ratio 18.6 RATIO (10-20); Calcium,Total 8.2 mg/dL (7.6-11.0); Carbon Dioxide 28.3 mmol/L (21.0-32.0); Chloride 103 mmol/L (98-108); Differential Indicated SCAN CRITERIA MET; Estimated Creatinine Clearance 75.20 ml/min (50-250); Glucose 111 mg/dL (70-99); Potassium 3.2 mmol/L (3.3-5.1)
[2025-03-22] MEDS: 0.9% Saline Lock 10 ML Syringe IV ×2 (09:35→21:52)
[2025-03-22] MEDS: Potassium Chloride Oral Tablet 20 MEQ PO ×2 (09:35→17:31)
[2025-03-22] MEDS: Pantoprazole Sodium 40 MG in 0.9% Normal Saline (100mL MB+) 100 ML 330 MG IV ×2 (09:36→21:47)
[2025-03-23 00:30] VITALS: TEMP 37.4
[2025-03-23] MEDS: Potassium Chloride Oral Tablet 20 MEQ 40 MEQ PO (00:46)
[2025-03-23 03:21] VITALS: BMI 32.0
[2025-03-23 03:36] VITALS: BP 100/59; PULSE 73; RESP 16; TEMP 37; O2SAT 96
[2025-03-23 04:35] LABS: Hematocrit 26.3 % (37-47); Hemoglobin 7.7 g/dL (12.0-15.0); Immature Granulocytes Count 0.030 X10^3/uL (0.0-0.0); Mean Corp Hgb Conc 29.3 g/dL (32-36); Mean Corpuscular Volume 83.2 fL (81-99); Mean Platelet Vol. 10.8 fl (6.2-12.0); NRBC Flagged by Analyzer 0.9 % (0-5); POSITIVE MORPHOLOGY YES; Platelet Count 319 K/mm3 (150-450); RBC Distribution Width CV 21.8 % (11.6-14.6); RBC Distribution Width SD 65.7 fl (35.1-43.9); Red Blood Count 3.16 M/mm3 (4.2-5.4); White Blood Count 8.9 K/mm3 (4.4-11.0)
[2025-03-23 04:36] LABS: Differential Indicated SCAN CRITERIA MET
[2025-03-23 04:51] LABS: Anion Gap 10 (5-15); BUN 14 mg/dL (4-19); BUN/Creat Ratio 17.3 RATIO (10-20); Calcium,Total 8.3 mg/dL (7.6-11.0); Carbon Dioxide 27.9 mmol/L (21.0-32.0); Chloride 103 mmol/L (98-108); Estimated Creatinine Clearance 76.16 ml/min (50-250); Glucose 105 mg/dL (70-99); Magnesium 1.6 mg/dL (1.5-2.2); Potassium 4.0 mmol/L (3.3-5.1)
[2025-03-23 05:12] LABS: Differential Comment SCANNED
[2025-03-23 05:13] LABS: Anisocytosis 2+; Polychromasia RARE
[2025-03-23 08:08] VITALS: BP 98/59; PULSE 74; RESP 17; TEMP 36.5; O2SAT 92
[2025-03-23] MEDS: 0.9% Saline Lock 10 ML Syringe IV (09:16)
[2025-03-23] MEDS: Potassium Chloride Oral Tablet 20 MEQ PO (09:17)
[2025-03-23] MEDS: Pantoprazole Sodium 40 MG in 0.9% Normal Saline (100mL MB+) 100 ML 330 MG IV (09:18)
--- NOTE | 2025-03-23 09:34 | RAD_ITS ---
PROCEDURE: RAD/Chest PA and Lateral
--- NOTE | 2025-03-23 09:35 | DCINST_ITS ---
Discharge Instructions
--- NOTE | 2025-03-23 09:35 | PCM.DC ---
Discharge Instructions DC O2, CPAP, BIPAP needs Home O2 Discharge instructions: No Dressing / Incision Discharge Activity: Return to Normal Activity Weight Bearing Status: Weight bearing as tolerated Dressing / Incision Call your doctor if you observe: Fever of 101 or Higher, Coldness, Increased Pain, Numbness or Tingling, Change in Color, Inability to urinate, Inability to have a bowel movement, Shortness of breath, Dizziness, Fainting spells, Swelling in the ankles, Chest pain, Prolonged hiccupping, Increased palpitations (irregular heartbeat) and Calf discomfort Follow Up Care When: IN 2 WEEKS Test Results: Test results from this visit will be discussed in further detail at your follow-up appointment, if applicable. Discharge Plan Admission Admit Date/Time: 03/17/25 18:51 Attending Provider: Iglesia Benson Primary Care Provider: Sravanthi Marroquin NP Consulting Providers: Sammy Rausch; Nahid Garrido; Iglesia Benson; Keshav Chandler; Deborah Snider; Alley Richardson; Yessenia Aguilar Discharge Orders/Prescriptions Prescriptions: New carvedilol 3.125 mg Tablet 3.125 mg PO BIDCM 30 Days Qty: 60 2RF midodrine 10 mg tablet 10 mg PO TIDCM PRN (Reason: hypotension) 30 Days Qty: 90 0RF Rx Instructions: For systolic blood pressure less than 90 mmHg pantoprazole [Protonix] 40 mg tablet,delayed release (DR/EC) 40 mg PO DAILY 30 Days Qty: 30 1RF ascorbic acid (vitamin C) 1,000 mg tablet 1,000 mg PO DAILY 30 Days Qty: 30 2RF ferrous sulfate 325 mg (65 mg iron) tablet 325 mg PO DAILY 30 Days Qty: 30 2RF Continued furosemide 40 mg tablet 60 mg PO BID Qty: 180 2RF Changed spironolactone 25 mg tablet 37.5 mg PO DAILY 30 Days Qty: 45 1RF Rx Instructions: Hold for serum potassium more than 5.0 Held warfarin 5 mg tablet 5 mg PO QDAY Qty: 60 1RF Hold Instructions: Resume once hemoglobin is 8 g or better. Follow-up PCP in 2-3 days Protocol: Dose Management Condition: Monday Dose/Route: 5 mg Instruction: 1 x 5 mg tablet Condition: Monday Dose/Route: 5 mg Instruction: 1 x 5 mg tablet Condition: Monday Dose/Route: 5 mg Instruction: 1 x 5 mg tablet Condition: Monday Dose/Route: 5 mg Instruction: 1 x 5 mg tablet Condition: Dose/Route: 5 mg Instruction: 1 x 5 mg tablet Condition: Monday Dose/Route: 5 mg Instruction: 1 x 5 mg tablet Condition: Monday Dose/Route: 5 mg Instruction: 1 x 5 mg tablet Protocol Text: Adjustment Start Date: Monday02/21/25 INR Value: 2.3 INR Date: 02/21/25 Recheck Date: 03/07/25 Rx Instructions: Take 5 mg daily for 6 days of the week and 7.5mg on one day of the week Discontinued carvedilol 6.25 mg tablet 6.25 mg PO BID Qty: 180 3RF potassium chloride 20 mEq tablet extended release 20 meq PO BID Qty: 30 1RF Referrals / Follow Up: Abdulaziz Ackerman MD [Med Staff - Active Staff, Internal Medicine] Sravanthi Marroquin NP, [employer] WORK[employer]-C [Primary Care Provider, Cardiology] - Within 2 Weeks Yessenia Aguilar PA [Med Staff - Adv Practice Prof, Gastroenterology] - Within 1 Month Disposition Disposition (needs filled in before D/C Order can be placed): Home, Self Care
--- NOTE | 2025-03-23 11:16 | PCM.DC.SUM ---
Providers Date of Admission: 03/17/25 Date of Discharge: 03/23/25 Primary Care Physician: SUSANA Trejo Consultations 03/17/25 21:08 Consult: Gastroenterology Routine Consulting Provider: Chrissie Gastroenterology Reason for Consult: ABLA due to GIB EMERGENT Consult: No MD Notified: Yes Date Notified: 03/17/25 Time Notified: 18:54 Method of Notification: Text Reason For Visit: ABLA DUE TO GI BLEED Diagnosis Discharge Diagnosis (1) GI bleed: Status: Acute Code(s): K92.2 - Gastrointestinal hemorrhage, unspecified (2) ABLA (acute blood loss anemia): Status: Acute Code(s): D62 - Acute posthemorrhagic anemia Plan Patient is a 69-year-old lady who presented with black tarry stools for 3 days duration hemoglobin on admission was 4.3 admitted to the intensive care unit for further management 1. Acute blood loss anemia exacerbated by the use of systemic 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 with Coumadin ? Hemoglobin on admission was 4.3 INR was 4.3. Patient was found to be tachycardic and hypotensive resuscitated with IV fluid admitted to the intensive care unit. Patient was transfused with 3 unit PRBC subsequent every 6 H&H ordered kept n.p.o. after midnight [facility] the day prior findings included acute gastritis biopsies taken. Hemoglobin this a.m. is 7.5. Plan is for patient to complete her workup with a colonoscopy. She had initially declined however she is not willing to proceedPatient underwent EGD the day prior findings included acute gastritis biopsies taken. Hemoglobin this a.m. is 7.5. ? 03/20/2025;Patient seen scheduled to undergo colonoscopy this a.m. Per nursing staff patient has not completed her prep. Did encourage the need to complete the prep in order to have a good colonoscopy with good visualization. Hemoglobin 7.6 this a.m. 03/21: Patient had colonoscopy on 03/20. H&H 7.4/25% today. Platelet count 200 44K. Impression: - Preparation of the colon was fair. - Multiple 25 mm polyps in the transverse colon, at the hepatic flexure and in the ascending colon, removed piecemeal using a hot snare. Resected and retrieved. - Diverticulosis in the recto-sigmoid colon, in the sigmoid colon and in the descending colon. - Stool in the rectum, in the recto-sigmoid colon, in the sigmoid colon and in the descending colon. Recommendation: - Repeat colonoscopy in 1 year for surveillance. 03/23: Repeat H&H better 7.7/26.3%. Patient had IV iron yesterday. Discharged on ferrous sulfate and ascorbic acid. Hemoglobin still low to resume warfarin. Advised to follow with PCP and repeat H&H in within a week to consider resumption of warfarin. Prescription also given for PPI/pantoprazole 2. Chronic persistent A-fib/atrial flutter Patient is on Coumadin INR was slightly elevated on admission held 03/21 heart rate is controlled, irregular atrial flutter on printing roller polisher. 03/23: Patient had low blood pressure yesterday and started on midodrine 10 mg 3 times daily. Patient is still on atrial flutter strip for his 2 1 conduction heart rate 72/min. Discharged on midodrine 10 mg 3 times daily as needed for SBP less than 90 mmHg 3. Chronic congestive heart failure with reduced ejection fraction ? Patient has known EF of 20%. Patient is on guideline directed therapy as outpatient. Currently remains compensated 03/21: No tachypnea or hypoxia. 03/23: Patient on furosemide and spironolactone. Chest x-ray done which does not show any focal consolidation or pneumonia or fluid overload. 4. Ischemic cardiomyopathy - status post AICD placement 5. Essential hypertension ? Patient antihypertensives held on admission given her relatively low blood pressure 6. Generalized osteoarthritis ? Pain meds as needed 7. Class II obesity with BMI of 32.1 ? Complicating care weight loss advised 8. Hypocalcemia: Calcium is 7.2. IV calcium gluconate ordered. DVT prophylaxis ? 03/21 warfarin is on hold. Bilateral AC Discharge medication reconciliation done. Discharge follow-up instructions completed. Discharge process discussed with the patient and all questions were answered to patient's satisfaction. Follow with PCP in 1 to 2 weeks Total time spent, exact 35 minutes on discharge meds reconciliation, examination, coordination of care with nurses and ancillary staff, review of imaging and blood test and discussion with the patient on follow-up instructions. Laboratory Results 03/23/25 03:25: WBC 8.9, RBC 3.16 L, Hgb 7.7 L, Hct 26.3 L, MCV 83.2, MCH 24.4 L, MCHC 29.3 L, RDW Std Deviation 65.7 H, RDW Coeff of Ele 21.8 H, Plt Count 319, MPV 10.8, Immature Gran % (Auto) 0.300, Neut % (Auto) 69.8, Lymph % (Auto) 12.5 L, [place] % (Auto) 14.8 H, Eos % (Auto) 1.9, Baso % (Auto) 0.7, Absolute Neuts (auto) 6.2, Absolute Lymphs (auto) 1.11, Nucleated RBC % 0.9, Differential Comment SCANNED, Polychromasia RARE, Anisocytosis 2+, Sodium 140, Potassium 4.0, Chloride 103, Carbon Dioxide 27.9, Anion Gap 10, BUN 14, Creatinine 0.81, Estim Creat Clear Calc 76.16, Est GFR (MDRD) Non-Af 80, BUN/Creatinine Ratio 17.3, Glucose 105 H, Calcium 8.3, Magnesium 1.6 Medications at Discharge Home Medications warfarin 5 mg tablet 5 mg PO QDAY #60 tabs 11/18/24 Held on 03/23/25. Instructions: Resume once hemoglobin is 8 g or better. Follow-up PCP in 2-3 days furosemide 40 mg tablet 60 mg (1.5 x 40 mg) PO BID #180 tabs 02/13/25 ascorbic acid (vitamin C) 1,000 mg tablet 1,000 mg PO DAILY 1 month #30 tabs 03/23/25 carvedilol 3.125 mg tablet 3.125 mg PO BIDCM 30 days #60 tabs 03/23/25 ferrous sulfate 325 mg (65 mg iron) tablet 325 mg PO DAILY 1 month #30 tabs 03/23/25 midodrine 10 mg tablet 10 mg PO TIDCM PRN hypotension 30 days #90 tabs 03/23/25 pantoprazole 40 mg tablet,delayed release (Protonix) 40 mg PO DAILY 1 month #30 tabs 03/23/25 spironolactone 25 mg tablet 37.5 mg (1.5 x 25 mg) PO DAILY 30 days #45 tabs 03/23/25 Hospital Course Summary of Care Provided Hospital Course: Laboratory Results 03/23/25 03:25: WBC 8.9, RBC 3.16 L, Hgb 7.7 L, Hct 26.3 L, MCV 83.2, MCH 24.4 L, MCHC 29.3 L, RDW Std Deviation 65.7 H, RDW Coeff of Ele 21.8 H, Plt Count 319, MPV 10.8, Immature Gran % (Auto) 0.300, Neut % (Auto) 69.8, Lymph % (Auto) 12.5 L, [place] % (Auto) 14.8 H, Eos % (Auto) 1.9, Baso % (Auto) 0.7, Absolute Neuts (auto) 6.2, Absolute Lymphs (auto) 1.11, Nucleated RBC % 0.9, Differential Comment SCANNED, Polychromasia RARE, Anisocytosis 2+, Sodium 140, Potassium 4.0, Chloride 103, Carbon Dioxide 27.9, Anion Gap 10, BUN 14, Creatinine 0.81, Estim Creat Clear Calc 76.16, Est GFR (MDRD) Non-Af 80, BUN/Creatinine Ratio 17.3, Glucose 105 H, Calcium 8.3, Magnesium 1.6 Clinical Impression(s) from Imaging Studies Chest X-Ray 03/23/25 09:34 IMPRESSION: Cardiomegaly. No focal airspace consolidation. Reading Location: [facility] Physical Exam Narrative Seen and examined Patient had one-time low-grade fever 100.8 Fahrenheit. On observation no further fever. No focal signs or symptoms of infection including no cough, chest pain or congestion, dysuria or acute Loritax symptoms or abdominal pain. Advised to call the ER or PCP if gets fever at home. Wants to go home. Patient is feeling comfortable with no shortness of breath. Heart rate in 70, atrial flutter on printing roller polisher. Physical exam General: Alert, Oriented x3, Cooperative. BMI 32.8 kg/m? HEENT: Atraumatic, PERRLA, EOMI, Normocephalic. Oral: No Gingival or Mucosal Lesions/ Ulcerations Neck: Supple, No JVD, Negative Carotid Bruits Chest wall/Lungs: Air entry diminished in bilateral lung bases. No crepitation/rhonchi Cardiovascular: regular atrial flutter with 4:1 conduction, systolic murmur. Left sublingual patient Abdomen: Bowel Sounds Present, Soft, Non Tender, Non-Distended : No dysuria. No renal angle tenderness. No suprapubic tenderness. Extremities: No edema, Capillary Refill Less than 3 Seconds Skin: No rashes, No breakdown Musculoskeletal: No Tenderness to Palpation of Joints or Extremities Neurological: Cranial nerves II-XII grossly intact, DTR 2+/4. No acute focal neurological deficit. Psych/Mental Status: Normal Affect, Appropriate. Weight / BMI Weight Weight: 198 lb 6.656 oz Body Mass Index (BMI) 32.0 ABG / Lab / Microbiology Data 03/23/25 03:25 03/23/25 03:25 Laboratory: Laboratory Results - last 24 hr 03/23/25 03:25: WBC 8.9, RBC 3.16 L, Hgb 7.7 L, Hct 26.3 L, MCV 83.2, MCH 24.4 L, MCHC 29.3 L, RDW Std Deviation 65.7 H, RDW Coeff of Ele 21.8 H, Plt Count 319, MPV 10.8, Immature Gran % (Auto) 0.300, Neut % (Auto) 69.8, Lymph % (Auto) 12.5 L, [place] % (Auto) 14.8 H, Eos % (Auto) 1.9, Baso % (Auto) 0.7, Absolute Neuts (auto) 6.2, Absolute Lymphs (auto) 1.11, Nucleated RBC % 0.9, Differential Comment SCANNED, Polychromasia RARE, Anisocytosis 2+, Sodium 140, Potassium 4.0, Chloride 103, Carbon Dioxide 27.9, Anion Gap 10, BUN 14, Creatinine 0.81, Estim Creat Clear Calc 76.16, Est GFR (MDRD) Non-Af 80, BUN/Creatinine Ratio 17.3, Glucose 105 H, Calcium 8.3, Magnesium 1.6 Microbiology: Microbiology 03/19/25 19:48 Stool Stool Occult Blood ([place]) - Final Occult Blood Positive Radiography Diagnostic Testing: Radiology Impression Chest X-Ray 03/23/25 09:34 IMPRESSION: Cardiomegaly. No focal airspace consolidation. Reading Location: [facility] D/C Instructions Weight Bearing Status: Weight bearing as tolerated Call your doctor if you observe: Fever of 101 or Higher, Coldness, Increased Pain, Numbness or Tingling, Change in Color, Inability to urinate, Inability to have a bowel movement, Shortness of breath, Dizziness, Fainting spells, Swelling in the ankles, Chest pain, Prolonged hiccupping, Increased palpitations (irregular heartbeat) and Calf discomfort DC O2, CPAP, BIPAP Needs Home O2 Discharge instructions: No When: IN 2 WEEKS Meaningful Use Info Meaningful Use Meaningful Use Diagnoses (Choose all that apply): None applicable Discharge Plan Admission Admit Date/Time: 03/17/25 18:51 Attending Provider: Iglesia Benson Primary Care Provider: Sravanthi Marroquin [employer] CLERK Consulting Providers: Sammy Rausch; Nahid Garrido; Iglesia Benson; Keshav Chandler; Deborah nSider; Alley Richardson; Yessenia Aguilar Discharge Orders/Prescriptions Prescriptions: New carvedilol 3.125 mg Tablet 3.125 mg PO BIDCM 30 Days Qty: 60 2RF midodrine 10 mg tablet 10 mg PO TIDCM PRN (Reason: hypotension) 30 Days Qty: 90 0RF Rx Instructions: For systolic blood pressure less than 90 mmHg pantoprazole [Protonix] 40 mg tablet,delayed release (DR/EC) 40 mg PO DAILY 30 Days Qty: 30 1RF ascorbic acid (vitamin C) 1,000 mg tablet 1,000 mg PO DAILY 30 Days Qty: 30 2RF ferrous sulfate 325 mg (65 mg iron) tablet 325 mg PO DAILY 30 Days Qty: 30 2RF Continued furosemide 40 mg tablet 60 mg PO BID Qty: 180 2RF Changed spironolactone 25 mg tablet 37.5 mg PO DAILY 30 Days Qty: 45 1RF Rx Instructions: Hold for serum potassium more than 5.0 Held warfarin 5 mg tablet 5 mg PO QDAY Qty: 60 1RF Hold Instructions: Resume once hemoglobin is 8 g or better. Follow-up PCP in 2-3 days Protocol: Dose Management Condition: Monday Dose/Route: 5 mg Instruction: 1 x 5 mg tablet Condition: Monday Dose/Route: 5 mg Instruction: 1 x 5 mg tablet Condition: Monday Dose/Route: 5 mg Instruction: 1 x 5 mg tablet Condition: Monday Dose/Route: 5 mg Instruction: 1 x 5 mg tablet Condition: Dose/Route: 5 mg Instruction: 1 x 5 mg tablet Condition: Monday Dose/Route: 5 mg Instruction: 1 x 5 mg tablet Condition: Monday Dose/Route: 5 mg Instruction: 1 x 5 mg tablet Protocol Text: Adjustment Start Date: Monday02/21/25 INR Value: 2.3 INR Date: 02/21/25 Recheck Date: 03/07/25 Rx Instructions: Take 5 mg daily for 6 days of the week and 7.5mg on one day of the week Discontinued carvedilol 6.25 mg tablet 6.25 mg PO BID Qty: 180 3RF potassium chloride 20 mEq tablet extended release 20 meq PO BID Qty: 30 1RF Referrals / Follow Up: Abdulaziz Ackerman MD [Med Staff - Active Staff, Internal Medicine] Sravanthi Marroquin NP, [employer] CLERK-C [Primary Care Provider, Cardiology] - Within 2 Weeks Yessenia Aguilar PA [Med Staff - Adv Practice Prof, Gastroenterology] - Within 1 Month Disposition Disposition (needs filled in before D/C Order can be placed): Home, Self Care Charges/Coding Visit Charges Inpatient E&M: 33274 Disch Hosp >30min
== END 2025-03-23 13:32 | disposition home or self-care (01) | DRG 378 ==
LOC: ED 18:56 → ICU 19:13 → PCU 03-21 18:00
PROVIDERS: Family Medicine; Internal Medicine; Internal Medicine Gastroenterology; Admitting Provider Hospitalist; Emergency Provider Emergency Medicine; PCP Nurse Practitioner Gerontology; Visit Provider Internal Medicine
PROC: 0DJ08ZZ Inspection of Upper Intestinal Tract, Via Natural or Artificial Opening Endoscopic (ICD-10-PCS; CPT 43235; principal; 2025-03-18 16:55)
PROC: 0DJD8ZZ Inspection of Lower Intestinal Tract, Via Natural or Artificial Opening Endoscopic (ICD-10-PCS; CPT 45378; principal; 2025-03-20 10:40)
DX: K29.01 Acute gastritis with bleeding (principal); D68.32 Hemorrhagic disorder due to extrinsic circulating 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s; I50.22 Chronic systolic (congestive) heart failure; I48.92 Unspecified atrial flutter; D62 Acute posthemorrhagic anemia; I48.19 Other persistent atrial fibrillation; K55.21 Angiodysplasia of colon with hemorrhage; I11.0 Hypertensive heart disease with heart failure; Z68.31 Body mass index [BMI] 31.0-31.9, adult; E83.51 Hypocalcemia; F17.210 Nicotine dependence, cigarettes, uncomplicated; I25.10 Atherosclerotic heart disease of native coronary artery without angina pectoris; I25.5 Ischemic cardiomyopathy; D12.2 Benign neoplasm of ascending colon; I95.1 Orthostatic hypotension; M15.9 Polyosteoarthritis, unspecified; D12.3 Benign neoplasm of transverse colon; K29.31 Chronic superficial gastritis with bleeding; B96.81 Helicobacter pylori [H. pylori] as the cause of diseases classified elsewhere; K57.31 Diverticulosis of large intestine without perforation or abscess with bleeding; E66.811 Obesity, class 1; E66.812 Obesity, class 2; Z68.32 Body mass index [BMI] 32.0-32.9, adult; Z95.810 Presence of automatic (implantable) cardiac defibrillator; Z79.01 Long term (current) use of 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s; Z79.899 Other long term (current) drug therapy
CPT/HCPCS: 36415; 71046; 80048; 80053; 82274; 82962; 83735; 84100; 85014; 85018; 85025; 85027; 85610; 85730; 86850; 86900; 86901; 88305; 93005; 94762; 97110; 97161; 97166; 97530; 97535; 99285; P9016; A4216; J0612; J2405; J2916

== ENCOUNTER → 2025-04-08 | Outpatient (CLI) | payer MEDICARE, SELFPAY ==
--- NOTE | 2025-04-08 07:20 | ECHOL_ITS ---
Reason For Study Reason For Study: CARDIOMYOPATHY Procedure This was a limited 2D transthoracic echocardiogram. The study was technically difficult. Due to SOB/deep respirations & back pain. Left Ventricle Normal LV size. Moderate concentric left ventricular hypertrophy. The left ventricular ejection fraction is 25 %. There is severe global hypokinesis of the left ventricle. Right Ventricle Normal RV size. ICD or pacer leads identified within the right ventricle. Normal systolic function. Atria The left atrium is moderately enlarged. Normal right atrium. Mitral Valve There is moderate mitral annular calcification. Mild (1+) eccentric mitral valve insufficiency. Tricuspid Valve Normal tricuspid valve. Mild-Moderate (1-2+) tricuspid valve insufficiency. Pulmonary artery systolic pressure is 42 mmHg. Pulmonic Valve Normal pulmonic valve. Great Vessels Normal aortic root. The pulmonary artery is normal size. The inferior vena cava is dilated. Pericardium/Pleural No pericardial effusion. MMode/2D Measurements & Calculations LVIDd: 5.4 cm IVSd: 1.5 cm LAV(MOD- bp): 116.0 ml LVIDs: 5.0 cm LVPWd: 1.3 cm LAV(MOD- bp) Indexed: 61.4 ml/m2 RVDd: 3.8 cm FS: 8.6 % LAV(MOD- sp2): 115.2 ml LAV(MOD- sp4): 117.4 ml LVAd ap4: 30.8 cm2 LVAd ap2: 33.1 cm2 SV(MOD- sp4): 26.3 ml LVLd ap4: 8.2 cm LVLd ap2: 8.7 cm SI(MOD- sp4): 13.9 ml/m2 EDV(MOD-sp4): 99.6 ml EDV(MOD-sp2): 101.2 ml EDV(sp4-el): 97.9 ml EDV(sp2-el): 106.2 ml LVAs ap4: 26.2 cm2 LVAs ap2: 28.1 cm2 LVLs ap4: 8.1 cm LVLs ap2: 8.3 cm ESV(MOD-sp4): 73.4 ml ESV(MOD-sp2): 78.7 ml ESV(sp4-el): 72.4 ml ESV(sp2-el): 80.3 ml EF(MOD-sp4): 26.4 % EF(MOD-sp2): 22.2 % EF(sp4-el): 26.0 % SV(MOD-sp2): 22.4 ml SV(sp4-el): 25.5 ml LA A4 area: 30.7 cm2 SI(MOD-sp2): 11.9 ml/m2 LA dimension(2D): 6.4 cm RA A4 area: 25.2 cm2 Doppler Measurements & Calculations TR max graham: 300.7 cm/sec TR max P.2 mmHg ECHO/Echo, Limited Study Interpretation Summary Normal LV size. The left ventricular ejection fraction is 25 %. Moderate concentric left ventricular hypertrophy. There is severe global hypokinesis of the left ventricle. Ordering Physician: Sravanthi Marroquin Referring Physician: Abdulaziz Ackerman Performed By: Ariadna Valentin, PRANEETH, RVT
--- OUTSIDE RECORDS SUMMARY | 2025-04-08 07:37 | XMS RPT_ITS | CCD ---
Author Organization [facility] Care Team Providers Care Household Appliances Salesperson Name Role Phone AMELIA HAMMOND (HUMAN RESOURCES BENEFITS SPECIALIST) Unavailable Unava ilAILYN John (HUMAN RESOURCES BENEFITS SPECIALIST) Unavailable Unavailable Dr. Abdulaziz Ackerman Primary Care Provider [phone] Dr. Abdulaziz Ackerman Referring Provider [phone] Dr. Jamal Munoz Attending Provider [phone] ZACK Abel Attending Provider Unavailab Dr. Abdulaziz Torres Primary Care Provider [phone] Dr. Abdulaziz Ackerman Referring Provider [phone] ZACK Abel Attending Provider Unavailab guy Valderrama NET WEB DEVELOPER, NET WEB DEVELOPER-C Jimmy Attending Provider [phone] Unavailable Primary Care Provider UnavailDr. Abdulaziz Leonardo Primary Care Provider [phone] Dr. Abdulaziz Ackerman Referring Provider [phone] Dr. Jamal Munoz Attending Provider [phone] Lavelle NET WEB DEVELOPER, NET WEB DEVELOPER-C Jimmy Referring Provider [phone]) Dr. Abdulaziz Ackerman Attending Provider [phone] Dr. Abdulaziz Ackerman Primary Care Provider [phone] 0) Dr. Abdulaziz Ackerman Referring Provider [phone] Lavelle NET WEB DEVELOPER, NET WEB DEVELOPER-C Jimmy Attending Provider [phone] Dr. Abdulaziz Ackerman Primary Care Provider [phone] 0) Dr. Abdulaziz Ackerman Referring Provider [phone] Lavelle NET WEB DEVELOPER, NET WEB DEVELOPER-C Jimmy Attending Provider [phone] Dr. Abdulaziz Ackerman Attending Provider [phone] ZACK Abel Attending Provider Dr. Abdulaziz Brown Primary Care Provider [phone] Dr. Abdulaziz Ackerman Referring Provider [phone] ZACK Abel Attending Provider Dr. Abdulaziz Brown Attending Provider [phone] Dr. Abdulaziz Ackerman Primary Care Provider [phone] [phone]) Dr. Abdulaziz Ackerman Referring Provider [phone] Lavelle NET WEB DEVELOPER, NET WEB DEVELOPER-C Jimmy Attending Provider 1(330) Dr. Maury Flores [...] Dr. Cintron Referring Provider [phone] SUSANA Perez Attending Provider [phone]) Meka WHITTINGTON, Dr. Cintron [...] Meka WHITTINGTON, Dr. Cintron Referring Provider [phone] Cookie WHITTINGTON, Dr. Samantha Patton Attending Provider Meka WHITTINGTON, Dr. Cintron Primary Care Provider Meka WHITTINGTON, Dr. Cintron Referring Provider [phone] Meka WHITTINGTON, Dr. Cintron Attending Provider [phone] Ungerer NET WEB DEVELOPER-C, Paula Attending Provider [phone] Meka WHITTINGTON, Dr. Cintron Primary Care Provider Meka WHITTINGTON, Dr. Cintron Attending Provider [phone] Meka WHITTINGTON, Dr. Cintron Referring Provider [phone] Roland WHITTINGTON, Dr. Holland Emergency Provider Marcelino WHITTINGTON, Dr. Parekh Admit Provider Marcelino WHITTINGTON, Dr. Parekh Attending Provider Alberto WHITTINGTON, Dr. Virgen Other Provider Marcelino WHITTINGTON, Dr. Parekh Other Provider Tammy WHITTINGTON, Dr. Berry Attending Provider Domitila WHITTINGTON, Dr. Duarte Attending Provider Cookie WHITTINGTON, Dr. Samantha Patton Attending Provider Eladio Sherman Attending Provider Ungerer NET WEB DEVELOPER-C, Paula Attending Provider [phone] Devyn Houston DO Emergency Provider Cookie WHITTINGTON, Dr. Samantha Patton Admit Provider Meka WHITTINGTON, Dr. Cintron Primary Care Provider Meka WHITTINGTON, Dr. Cintron Attending Provider [phone] Meka WHITTINGTON, Dr. Cintron Referring Provider [phone] Cookie WHITTINGTON, Dr. Samantha Patton Other Provider Gregg WHITTINGTON, Dr. Tatum Collins Attending Provider Domitila WHITTINGTON, Dr. Duarte Other Provider Gregg WHITTINGTON, Dr. Tatum Collins Other Provider Meka WHITTINGTON, Dr. Cintron Primary Care Provider Meka WHITTINGTON, Dr. Cintron Attending Provider [phone] Meka WHITTINGTON, Dr. Cintron Referring Provider [phone] Eladio Sherman Attending Provider Rosemarie MONTIEL, Dr. Shepard Emergency Provider Cookie WHITTINGTON, Dr. Samantha Patton Attending Provider Cookie WHITTINGTON, Dr. Samantha Patton Admit Provider Cookie WHITTINGTON, Dr. Samantha Patton Other Provider Gregg WHITTINGTON, Dr. Tatum Collins Attending Provider Domitila WHITTINGTON, Dr. Duarte Other Provider Gregg WHITTINGTON, Dr. Tatum Collins Other Provider Tammy WHITTINGTON, Dr. Berry Attending Provider Mary Evans Attending Provider Unavailable Meka WHITTINGTON, Dr. Cintron Primary Care Provider Meka WHITTINGTON, Dr. Cintron Attending Provider [phone] Meka WHITTINGTON, Dr. Cintron Referring Provider [phone] Meka WHITTINGTON, Dr. Cintron Primary Care Provider Meka WHITTINGTON, Dr. Cintron Attending Provider [phone] Meka WHITTINGTON, Dr. Cintron Referring Provider [phone] Sravanthi Patricio Attending Provider Sravanthi Patricio Referring Provider [phone] Meka WHITTINGTON, Dr. Cintron Primary Care Provider Meka WHITTINGTON, Dr. Cintron Attending Provider [phone] Meka WHITTINGTON, Dr. Cintron Referring Provider [phone] Meka WHITTINGTON, Dr. Cintron Primary Care Physician Meka WHITTINGTON, Dr. Cintron Referring Provider [phone] Eladio Sherman Attending Physician Sterling NET WEB DEVELOPER-C, Puala Attending Physician Dr. Devyn Houston DO Emergency Department Physi leila Cookie WHITTINGTON, Dr. Samantha Patton Attending Physician Cookie WHITTINGTON, Dr. Samantha Patton Admitting Physician Cookie WHITTINGTON, Dr. Samantha Patton Nurse Practitioner Gregg WHITTINGTON, Dr. Tatum Collins Attending Physician Domitila WHITTINGTON, Dr. Duarte Nurse Practitioner Gregg WHITTINGTON, Dr. Tatum Collins Nurse Practitioner Tammy WHITTINGTON, Dr. Berry Attending Physician Meka WHITTINGTON, Dr. Cintron Attending Physician Lopez NET WEB DEVELOPER-C, Sravanthi Attending Physician Oleghe, Efewongbe Primary Care Unavailable Param Dominguez Consulting Unavailable Marcelino, Iglesia Admitting Unavailable Marcelino, Iglesia Attending Unavailable Marcelino, Iglesia Consulting Unavailable Oleghe, Efewongbe Primary Care Unavailable Samantha Gary Attending Unavailable Gregg, Tatum Collins Attending Unavailable Oleghe, Efewongbe Primary Care Unavailable Samantha Gary Admitting Unavailable Samantha Gary Consulting Unavailable Tatum Escobedo Karina Consulting Unavailable Oleghe, Efewongbe Primary Care Unavailable Sravanthi Marroquin Attending Unavailable Sravanthi Marroquin Referring Unavailable Felicia Ramesh Attending Unavailabl e Sammy Rausch Attending Unavailable Sammy Rausch Admitting Unavailable Sammy Rausch Consulting Unavailable Sravanthi Marroquin Primary Care Unavailable Oleghe, Efewongbe Primary Care Unavailable Jamal Munoz Attending Unavailable Oleghe, Efewongbe Attending Unavailable Oleghe, Efewongbe Referring Unavailable Oleghe, Efewongbe Primary Care Unavailable Oleghe, Efewongbe Referring Unavailable Oleghe, Efewongbe Primary Care Unavailable Mary Melendez Attending Unavailable Oleghe, Efewongbe Primary Care Unavailable Jamal Munoz Attending Unavailable Oleghe, Efewongbe Attending Unavailable Oleghe, Efewongbe Primary Care Unavailable Eladio Pandey Referring Unavailable Sravanthi Marroquin Attending Unavailable Sravanthi Marroquin Referring Unavailable Sravanthi Marroquin Primary Care Unavailable Oleghe, Efewongbe Attending Unavailable Oleghe, Efewongbe Primary Care Unavailable Oleghe, Efewongbe Referring Unavailable Oleghe, Efewongbe Attending Unavailable Oleghe, Efewongbe Primary Care Unavailable Oleghe, Efewongbe Referring Unavailable Oleghe, Efewongbe Attending Unavailable Oleghe, Efewongbe Primary Care Unavailable Oleghe, Efewongbe Referring Unavailable Oleghe, Efewongbe Primary Care Unavailable Oleghe, Efewongbe Attending Unavailable Oleghe, Efewongbe Referring Unavailable Friend, Keshav Referring Unavailable Alley Richardson Attending Unavailable Iglesia Benson Consulting Unavailable Geraldine, Keshav Consulting Unavailable Deborah Snider Consulting Unavailable Alley Richardson Consulting Unavailable Yessenia Aguilar Consulting Unavailable Nahid Garrido Consulting Unavailable Nahid Garrido Attending Unavailable Geraldine, Keshav Attending Unavailable Nahid Garrido Referring Unavailable Iglesia Benson Attending Unavailable Oleghe, Efewongbe Attending Unavailable Oleghe, Efewongbe Primary Care Unavailable Oleghe, Efewongbe Referring Unavailable Tammy, [place] Attending Unavailable Felicia Ramesh Consulting Unavailabl e Oleghe, Efewongbe Referring Unavailable Oleghe, Efewongbe Primary Care Unavailable Sravanthi Marroquin Attending Unavailable Oleghe, Efewongbe Primary Care Unavailable Oleghe, Efewongbe Referring Unavailable Sravanthi Marroquin Attending Unavailable Oleghe, Efewongbe Primary Care Unavailable Tammy, [place] Attending Unavailable Oleghe, Efewongbe Primary Care Unavailable Tammy, [place] Attending Unavailable Oleghe, Efewongbe Referring Unavailable Oleghe, Efewongbe Primary Care Unavailable Tammy, Jamal Attending Unavailable Oleghe, Efewongbe Primary Care Unavailable Oleghe, Efewongbe Attending Unavailable Oleghe, Efewongbe Referring Unavailable Oleghe, Efewongbe Attending Unavailable Oleghe, Efewongbe Primary Care Unavailable Oleghe, Efewongbe Referring Unavailable Oleghe, Efewongbe Primary Care Unavailable Oleghe, Efewongbe Attending Unavailable Oleghe, Efewongbe Referring Unavailable Oleghe, Efewongbe Primary Care Unavailable Oleghe, Efewongbe Referring Unavailable Art Pandeyew Attending Unavailable Oleghe, Efewongbe Primary Care Unavailable Paula Katz Attending Unavailable Oleghe, Efewongbe Referring Unavailable Oleghe, Efewongbe Primary Care Unavailable Tammy, [place] Attending Unavailable Oleghe, Efewongbe Primary Care Unavailable Tammy, [place] Attending Unavailable Oleghe, Efewongbe Primary Care Unavailable Tammy, Jamal Attending Unavailable Oleghe, Efewongbe Primary Care Unavailable Oleghe, Efewongbe Referring Unavailable WaytArtew Attending Unavailable Oleghe, Efewongbe Primary Care Unavailable Tammy, Jamal Attending Unavailable Oleghe, Efewongbe Primary Care Unavailable Sravanthi Marroquin Attending Unavailable Sravanthi Marroquni Referring Unavailable Oleghe, Efewongbe Primary Care Unavailable Sravanthi Marroquin Attending Unavailable Sravanthi Marroquin Referring Unavailable Oleghe, Efewongbe Attending Unavailable Oleghe, Efewongbe Primary Care Unavailable Oleghe, Efewongbe Referring Unavailable Oleghe, Efewongbe Referring Unavailable Oleghe, Efewongbe Primary Care Unavailable Tammy, Jamal Attending Unavailable Oleghe, Efewongbe Primary Care Unavailable Oleghe, Efewongbe Referring Unavailable Aleida Curiel Attending Unavailabl e Oleghe, Efewongbe Primary Care Unavailable Oleghe, Efewongbe Referring Unavailable Paula Katz Attending Unavailable Oleghe, Efewongbe Primary Care Unavailable Tammy, [place] Attending Unavailable Oleghe, Efewongbe Primary Care Unavailable Oleghe, Efewongbe Attending Unavailable Oleghe, Efewongbe Referring Unavailable Oleghe, Efewongbe Primary Care Unavailable Tammy, [place] Attending Unavailable Oleghe, Efewongbe Primary Care Unavailable Oleghe, Efewongbe Referring Unavailable Sravanthi Marroquin Attending Unavailable Marcelino, Iglesia Referring Unavailable Samantha Gary Attending Unavailable Tammy, Jamal Attending Unavailable Oleghe, Efewongbe Primary Care Unavailable Tatum Escobedo Attending Unavailable Samantha Gary Admitting Unavailable Samantha Gary Consulting Unavailable Felicia Ramesh Consulting Unavailabl e Sammy Rausch Admitting Unavailable Sammy Rausch Consulting Unavailable Sravanthi Marroquin Primary Care Unavailable Iglesia Benson Attending Unavailable Nahid Garrido Consulting Unavailable Marcelino, Iglesia Consulting Unavailable Keshav Chandler Consulting Unavailable Deborah Snider Consulting Unavailable Alley Richardson Consulting Unavailable Yessenia Aguilra Consulting Unavailable Abdulaziz Ackerman Primary Care Unavailable Param Dominguez Consulting Unavailable Iglesia Benson Admitting Unavailable Iglesia Benson Attending Unavailable Meka WHITTINGTON, Dr. Cintron Primary Care Physician Dr. Devyn Houston DO Emergency Department Physi leila Cookie WHITTINGTON, Dr. Samantha Patton Attending Physician Cookie WHITTINGTON, Dr. Samantha Patton Admitting Physician Cookie WHITTINGTON, Dr. Samantha Patton Nurse Practitioner Gregg WHITTINGTON, Dr. Tatum Collins Attending Physician Domitila WHITTINGTON, Dr. Duarte Nurse Practitioner Gregg WHITTINGTON, Dr. Tatum Collins Nurse Practitioner Tammy WHITTINGTON, Dr. Berry Attending Physician Meka WHITTINGTON, Dr. Cintron Referring Provider Meka WHITTINGTON, Dr. Cintron Attending Physician Lopez PAULINO-CSravanthi Attending Physician Sravanthi Patricio Referring Provider Harpal Buckner MD Emergency Department Physician Lopez PAULINO-Sravanthi Stanely Primary Care Physician Dr. Sammy Rausch DO Admitting Physician Dr. Sammy Rausch DO Nurse Practitioner Marcelino WHITTINGTON, Dr. Parekh Attending Physician Marcelino WHITTINGTON, Dr. Parekh Nurse Practitioner Radhika WHITTINGTON, Dr. Whitfield Nurse Practitioner Unavaila mat Chandler DO, Dr. Parr Nurse Practitioner Tylor NET WEB DEVELOPER-CDeborah Nurse Practitioner Alley Branch Nurse Practitioner Yessenia Shahid Nurse Practitioner [phone] Radhika WHITTINGTON, Dr. Whitfield Attending Physician Unavail Dr. Nahid Cabral MD Referring Provider Unavaila ble Geraldine MONTIEL, Dr. Parr Attending Physician [phone] Dr. Keshav Chandler DO Referring Provider Alley Branch Attending Physician [phone] Allergies Allergy Classification Reported Allergen(s) Allergy Type Date of Onset Reaction(s) Facility (3 sources) PROPOXYPHENE N-ACETAMINOPHEN; Translations: [PROPOXYPHENE N-ACETAMINOPHEN] Propensity to adverse reactions to drug (disorder) 7 [facility] Repository (1 source) NO KNOWN ALLERGIES; Translations: [NO KNOWN ALLERGIES] Propensity to adverse reactions to drug (disorder) [facility] Repository (20 sources) Acetaminophen Drug Allergy 2 Hives, Nausea/Vom/Kacie [facility] (20 sources) Latex Allergy to substance 2 [facility] (20 sources) Propoxyphene Drug Allergy 2 [facility] (20 sources) traZODone Drug Allergy 2 [facility] (20 sources) Coconut extract Drug Allergy 5 PT UNABLE TO RESPOND-NEEDS F/U [facility] (20 sources) Fish Containing Products Allergy to substance 5 PT UNABLE TO RESPOND-NEEDS F/U [facility] (16 sources) Lactose Drug Allergy 5 Nausea/Vom/Kacie [facility] (1 source) Acetaminophen Drug Allergy 5 [facility] Repository (1 source) Coconut extract Drug Allergy 5 [facility] Repository (1 source) Lactose Drug Allergy 5 [facility] Repository (1 source) Latex Drug allergy (disorder) 5 [facility] Repository (1 source) Propoxyphene Drug Allergy 5 [facility] Repository (1 source) traZODone Drug Allergy 5 [facility] Repository (1 source) Fish Containing Products Drug allergy (disorder) [facility] Repository Medications Current Medications Medication Drug Class(es) Dates Sig (Normalized) Sig (Original) ascorbic acid 1000 mg oral tablet (1 source) Vitamin C Start: 03-23-2025 Start: 03-23-2025 bismuth subsalicylate 262 mg chewable tablet (1 source) Bismuth Start: 04-02-2025 Start: 04-02-2025 Blood Pressure Monitor (Bloo d Pressure Kit) [...] hypertension I10 carvedilol 3.125 mg oral tablet (20 sources) alpha-Adrenergic Latisha, beta-Adrenergic Latisha Start: 03-23-2025 Start: 12-14-2024 End: 03-23-2025 Start: 08-25-2024 End: 12-14-2024 ferrous sulfate 325 mg oral tablet (1 source) Start: 03-23-2025 Start: 03-23-2025 fluconazole 150 mg oral tablet (20 sources) Azole Antifungal Start: 01-04-2022 End: 01-04-2022 take 1 tablet by mouth once fluconazole (DIFLUCAN) 150 mg tablet Indications: Vaginal burning , Vagina itching , Acute vulvitis Take 1 tablet by mouth one time only for 1 dose. 1 tablet 0 01/04/2022 01/04/2022 Active Start: 05-04-2021 End: 07-30-2021 Comment on above: Take 1 tablet by vu th one time only for 1 dose. furosemide 40 mg oral tablet (20 sources) Loop Diuretic Start: 08-11-2020 End: 02-13-2025 Start: 08-11-2020 End: 07-24-2024 Furosemide 40 mg tablet Disc ontinued 40 mg PO SUSA as needed for FLUID 30 0 February 08, 2024 8:34am July 24, 2024 3:47pm Start: 08-11-2020 End: 02-13-2025 take 1 tablet by mouth twice daily Furosemide 40 mg tablet Discontinued 40 mg PO TWICE A DAY 180 2 February 10, 2025 2:45pm February 13, 2025 8:11am metroNIDAZOLE 500 mg oral ta blet (1 source) Nitroimidazole Antimicrobial Start: 04-02-2025 Start: 04-02-2025 midodrine hydrochloride 10 m g oral tablet (1 source) alpha-Adrenergic Agonist Start: 03-23-2025 Start: 03-23-2025 pantoprazole 40 mg delayed r elease oral tablet (2 sources) Proton Pump Inhibitor Start: 04-02-2025 Start: 03-23-2025 End: 04-02-2025 potassium chloride 20 meq ex tended release oral tablet (20 sources) Start: 10-05-2021 End: 03-23-2025 Start: 11-03-2020 End: 04-28-2021 Comment on above: Take 1 tablet by vu th once daily. spironolactone 25 mg oral ta blet (20 sources) Aldosterone Antagonist Start: 03-23-2025 Start: 03-10-2025 End: 03-23-2025 Start: 08-25-2024 End: 10-25-2024 tetracycline hydrochloride 5 00 mg oral capsule (1 source) Tetracycline-class Antimicrobial Start: 04-02-2025 Start: 04-02-2025 Completed/Discontinued Medications Medication Drug Class(es) Dates Sig (Normalized) Sig (Original) acetaminophen 500 mg oral tablet (20 sources) Start: 08-25-2024 End: 12-18-2024 acetaminophen 325 mg / oxyCODONE hydrochloride 5 mg oral tablet (20 sources) Opioid Agonist Start: 02-17-2022 End: 02-24-2022 Start: 02-17-2022 End: 02-24-2022 Oxycodone-Acetaminophen (Per cocet) 5-325 mg tablet Discontinued 1 {tbl} PO Q8H as needed for pain 14 7 0 February 17, 2022 February 23, 2022 12:00am February 24, 2022 12:03am Acute low back pain Low back pain, unspecified [id number] 200 actuat albuter ol 0.09 mg/actuat metered dose inhaler (20 sources) beta2-Adrenergic Agonist Start: 08-11-2020 End: 07-28-2023 Start: 08-11-2020 End: 07-28-2023 Albuterol Sulfate 90 mcg/act uation HFA aerosol inhaler Discontinued 1 - 2 [...] Calcium Channel Latisha Start: 11-18-2022 End: 08-25-2024 Start: 02-17-2022 End: 07-20-2022 Start: 02-08-2022 End: 02-17-2022 Start: 02-02-2021 End: 11-03-2021 apixaban 5 mg oral tablet (20 sources) Factor Xa Inhibitor Start: 08-11-2020 End: 06-13-2023 Start: 08-11-2020 End: 06-13-2023 take 1 tablet by mouth twice daily Apixaban 5 mg tablet Discontinued 5 mg PO TWICE A DAY 180 90 1 July 20, 2022 2:48pm June 13, 2023 4:08pm Start: 08-11-2020 End: 12-02-2020 take 2 tablets [...] 5 mg by mouth t wice daily. atorvastatin 20 mg oral tabl et (20 sources) HMG-CoA Reductase Inhibitor Start: 08-25-2024 End: 01-23-2025 Start: 08-25-2024 End: 01-23-2025 take 1 tablet by mouth at bedtime Atorvastatin 20 mg tablet Discontinued 20 mg PO AT BEDTIME 90 2 November 18, 2024 10:05am January 23, 2025 1:05pm Start: 11-18-2022 End: 08-25-2024 baclofen 10 mg oral tablet (20 sources) gamma-Aminobutyric Acid-ergic Agonist Start: 03-09-2023 End: 09-06-2024 benzonatate 200 mg oral capsule (20 sources) Non-narcotic Antitussive Start: 07-28-2023 End: 09-20-2023 Start: 05-26-2022 End: 09-28-2022 betamethasone 0.5 mg/ml / clotrimazole 10 mg/ml topical cream (1 source) Azole Antifungal, Corticosteroid Start: 01-04-2022 clotrimazole-betamethasone (LOTRISONE) cream Indications: Vaginal burning , Vagina itching , Acute vulvitis Apply 1 application to affected area twice daily. 15 g 2 01/04/2022 Active Comment on above: Apply 1 application to affected area twice daily. cephalexin 500 mg oral capsule (20 sources) Cephalosporin Antibacterial Start: 09-06-2024 End: 10-25-2024 Start: 07-31-2024 End: 08-25-2024 cyclobenzaprine hydrochlorid e 5 mg oral tablet (20 sources) Muscle Relaxant Start: 03-07-2023 End: 03-09-2023 Start: 02-17-2022 End: 03-23-2022 diclofenac sodium 0.01 mg/mg topical gel (20 sources) Nonsteroidal Anti-inflammatory Drug Start: 11-03-2020 End: 02-02-2021 docusate sodium 50 mg / sennosides, detention 8.6 mg oral tablet (20 sources) Start: 08-25-2024 End: 10-25-2024 Start: 08-25-2024 End: 10-25-2024 Sennosides-Docusate Sodium ( Stimulant Laxative Plus) 8.6-50 mg Tablet Discontinued 2 {tbl} PO TWICE A DAY 0 August 25, 2024 12:00am October 25, 2024 8:15am doxepin 6 mg oral tablet (20 sources) Tricyclic Antidepressant Start: 09-27-2024 End: 10-25-2024 Start: 09-27-2024 End: 10-25-2024 take 1 tablet by mouth at bedtime as needed for sleep Doxepin 6 mg tablet Discontinued 6 mg PO AT BEDTIME as needed for sleep 30 September 27, 2024 12:00am October 25, 2024 8:14am DULoxetine 30 mg delayed release oral capsule (20 sources) Serotonin and Norepinephrine Reuptake Inhibitor Start: 07-28-2023 End: 09-20-2023 empagliflozin 10 mg oral tab let (20 sources) Sodium-Glucose Cotransporter 2 Inhibitor Start: 08-25-2024 End: 09-06-2024 [id number] 0.3 ml EPINEPHrine 1 mg/ml auto-injector (20 sources) alpha-Adrenergic Agonist, beta-Adrenergic Agonist, Catecholamine Start: 12-02-2020 End: 02-23-2024 Start: 12-02-2020 End: 02-23-2024 Epinephrine (Epipen 2-Abbie) 0 .3 mg/0.3 mL auto-injector Discontinued 0.3 mg IM every 5 to 15 minutes as needed for anaphylaxis 2 January 03, 2022 8:29am February 23, 2024 8:02am do not exceed 3 doses per episode guaiFENesin 400 mg oral tabl et (20 sources) Start: 05-26-2022 End: 09-28-2022 hydrOXYzine hydrochloride 25 mg oral tablet (20 sources) Antihistamine Start: 12-02-2020 End: 02-02-2021 Start: 12-02-2020 End: 02-02-2021 take 1 tablet by mouth at bedtime as needed Hydroxyzine Hcl 25 mg tablet Discontinued 25 mg PO AT BEDTIME as needed for insomnia 30 December 02, 2020 12:00am February 02, 2021 8:57am lidocaine hydrochloride 40 mg/ml topical lotion (20 sources) Antiarrhythmic, Amide Local Anesthetic Start: 10-25-2024 End: 01-13-2025 Lidocaine Hcl 4 % lotion (11 sources) Start: 10-25-2024 End: 11-18-2024 Lidocaine Hcl 4 % lotion Discontinued 1 NMA TOPICAL 2 to 4 times per day as needed for pain 118 October 25, 2024 12:00am November 18, 2024 10:05am lisinopril 20 mg oral tablet (20 sources) Angiotensin Converting Enzyme Inhibitor Start: 08-25-2024 End: 01-23-2025 Start: 07-30-2021 End: 08-25-2024 Start: 12-15-2020 End: 04-28-2021 Start: 12-02-2020 End: 12-15-2020 Start: 10-20-2020 End: 12-02-2020 magnesium chloride 598 mg delayed release oral tablet (20 sources) Start: 08-25-2024 End: 10-25-2024 meloxicam 15 mg oral tablet (20 sources) Nonsteroidal Anti-inflammatory Drug Start: 08-10-2020 End: 08-11-2020 mirtazapine 15 mg oral table t (20 sources) Start: 01-03-2022 End: 09-28-2022 Start: 01-03-2022 End: 09-28-2022 take 1 tablet by mouth at bedtime Mirtazapine 15 mg tablet Discontinued 15 mg PO AT BEDTIME 90 February 08, 2022 10:54am September 28, 2022 1:11pm mupirocin 0.02 mg/mg topical ointment (18 sources) RNA Synthetase Inhibitor Antibacterial Start: 11-25-2024 End: 01-23-2025 omeprazole 40 mg delayed release oral capsule (20 sources) Proton Pump Inhibitor Start: 09-06-2024 End: 10-25-2024 Start: 09-20-2023 End: 08-21-2024 Start: 03-21-2022 End: 06-13-2023 predniSONE 10 mg oral tablet (20 sources) Start: 11-18-2022 End: 07-28-2023 Start: 11-18-2022 End: 03-07-2023 Prednisone 10 mg tablet Disc ontinued 10 mg PO TWICE A DAY 15 November 18, 2022 12:00am March 07, 2023 12:16pm one twice a day for 5 days, then one daily for 5 days, then discontinue sacubitril 24 mg / valsartan 26 mg oral tablet (16 sources) Angiotensin 2 Receptor Latisha Start: 12-14-2024 End: 01-23-2025 Start: 12-14-2024 End: 01-23-2025 Sacubitril-Valsartan (Entres to) 24-26 mg tablet Discontinued 1 {tbl} PO TWICE A DAY 60 December 14, 2024 12:00am January 23, 2025 1:06pm sulfamethoxazole 800 mg / trimethoprim 160 mg oral tablet (18 sources) Dihydrofolate Reductase Inhibitor Antibacterial, Sulfonamide Antimicrobial Start: 11-25-2024 End: 12-14-2024 Start: 11-25-2024 End: 12-14-2024 Sulfamethoxazole-Trimethopri m (Bactrim Ds) 800-160 mg tablet Discontinued 1 {tbl} PO TWICE A DAY 14 November 25, 2024 12:00am December 14, 2024 12:31pm Infection traZODone hydrochloride 50 m g oral tablet (20 sources) Serotonin Reuptake Inhibitor Start: 12-02-2020 End: 12-02-2020 Start: 12-02-2020 End: 12-02-2020 take 1 tablet by mouth at bedtime as needed Trazodone 50 mg tablet Discontinued 50 mg PO AT BEDTIME as needed for insomnia 30 December 02, 2020 12:00am December 02, 2020 2:42pm warfarin sodium 5 mg oral ta blet (20 sources) Vitamin K Antagonist Start: 09-06-2024 End: 11-18-2024 Start: 08-21-2024 End: 09-06-2024 Start: 04-02-2025 Warfarin (Jant oven) 6 mg tablet Active 6 mg PO DAILY August 21, 2024 12:00am On Hold: Hold it for 3 days till INR is 2.0 and then resume lower dose Start: 03-19-2024 End: 08-21-2024 Start: 07-28-2023 End: 03-26-2024 Start: 07-28-2023 End: 03-26-2024 Warfarin 3 mg tablet Discont inued 3 mg PO DAILY 90 0 November 03, 2023 4:53pm March 26, 2024 2:24pm On Hold: Duplicate Order 6mg 2 days a week 3mgs all others Start: 06-22-2023 End: 09-20-2023 Start: 06-22-2023 End: 07-28-2023 take 3 mg by mouth once daily Warfarin Active 3 MG PO DAILY July 28, 2023 9:51am Start: 06-13-2023 End: 07-28-2023 (7 sources) Start: 10-25-2024 End: 11-18-2024 Start: 02-02-2021 End: 01-03-2022 Problems Active Problems Problem Classification Problem Date Documented Da te Episodic/Chronic Acute myocardial infarction (20 sources) Myocardial infarction; Translations: [Non-ST elevation (NSTEMI) myocardial infarction] 11-17-2022 Chronic Acute posthemorrhagic anemia (3 sources) Acute posthemorrhagic anemia; Translations: [Acute posthemorrhagic anemia] Onset: 03-31-2025 Episodic Administrative/social admission (20 sources) Patient encounter status; Translations: [Persons encountering health services in other specified circumstances] 12-09-2022 Episodic Anxiety disorders (20 sources) Mixed anxiety and depressive disorder; Translations: [Anxiety disorder, unspecified] Onset: Chronic Aortic; peripheral; and visceral artery aneurysms (20 sources) Aneurysm; Translations: [Aneurysm of abdominal vessel] 11-17-2022 Chronic Comment on above: CTA- images reviewed , 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 largest in mid/distal descending thoracic aortaprior CTA chest (2020) reviewed, minimal enlargement of proximal descending thoracic aorta and arch Cardiac dysrhythmias (20 sources) Atrial flutter; Translations: [Unspecified atrial flutter] Onset: 5 11-17-2022 Chronic Chronic ulcer of skin (20 sources) Ulcer of lower extremity; Translations: [Non-pressure chronic ulcer of unspecified part of right lower leg with unspecified severity] Onset: 5 07-24-2024 Chronic Conduction disorders (20 sources) Automatic implantable cardiac defibrillator in situ; Translations: [Presence of automatic (implantable) cardiac defibrillator] Onset: 5 12-23-2024 Chronic Congestive heart failure; nonhypertensive (20 sources) Heart failure with normal ejection fraction; Translations: [Unspecified diastolic (congestive) heart failure] Onset: Chronic Congestive heart failure; nonhypertensive (20 sources) Congestive heart failure; nonhypertensive; Translations: [Acute on chronic congestive heart failure] Coronary atherosclerosis and other heart disease (20 sources) Exercise-induced angina; Translations: [Other forms of angina pectoris] 11-17-2022 Chronic Deficiency and other anemia (20 sources) Microcytic anemia; Translations: [Iron deficiency anemia, unspecified] 08-21-2024 Episodic Diabetes mellitus with complications (20 sources) Hyperglycemia due to type 2 diabetes mellitus; Translations: [Type 2 diabetes mellitus with hyperglycemia] 08-21-2024 Chronic Diabetes mellitus without complication (20 sources) High glucose level in blood; Translations: [Other abnormal glucose] Onset: 5 01-03-2022 Episodic Disorders of lipid metabolism (20 sources) Hyperlipidemia; Translations: [Hyperlipidemia, unspecified] Onset: Chronic E Codes: Natural/environment (20 sources) Bitten or stung by nonvenomous insect and other nonvenomous arthropods, initial encounter; Translations: [Insect bite] 11-26-2024 Episodic Esophageal disorders (20 sources) Gastroesophageal reflux disease; Translations: [Gastro-esophageal reflux disease without esophagitis] Chronic Essential hypertension (20 sources) Essential hypertension; Translations: [Essential (primary) hypertension] Onset: Chronic Fluid and electrolyte disorders (20 sources) Acute hypokalemia; Translations: [Hypokalemia] 11-17-2022 Episodic Gastrointestinal hemorrhage (3 sources) Gastrointestinal hemorrhage, unspecified; Translations: [Gastrointestinal hemorrhage] Onset: 5 03-31-2025 Episodic Hypertension with complications and secondary hypertension (1 source) Hypertensive heart and chronic kidney disease with heart failure and stage 1 through stage 4 chronic kidney disease, or unspecified chronic kidney disease; Translations: [Hypertensive heart and chronic kidney disease with heart failure and stage 1 through stage 4 chronic kidney disease, or unspecified chronic kidney disease] Onset: 5 Chronic Immunizations and screening for infectious disease (20 sources) Needs influenza immunization; Translations: [Encounter for immunization] 04-27-2021 Episodic Inflammatory diseases of female pelvic organs (1 source) Acute vulvitis; Translations: [Acute vulvitis] Episodic Malaise and fatigue (20 sources) Asthenia; Translations: [Other malaise] 12-29-2022 Episodic Melanomas of skin (20 sources) Malignant melanoma; Translations: [Malignant melanoma of skin, unspecified] Chronic Menopausal disorders (20 sources) Disorder associated with menstruation AND/OR menopause; Translations: [Unspecified menopausal and perimenopausal disorder] Chronic Miscellaneous mental health disorders (1 source) Primary insomnia; Translations: [Primary insomnia] Onset: 5 Chronic Mood disorders (1 source) Mood disorders; Translations: [Depression, unspecified] Onset: 5 Mycoses (2 sources) Tinea pedis; Translations: [Dermatophytosis of foot] 09-28-2022 Episodic Open wounds of extremities (20 sources) Disorder of lower extremity; Translations: [Unspecified open wound, left lower leg, initial encounter] 01-20-2021 Episodic Osteoarthritis (20 sources) Osteoarthritis of left knee joint; Translations: [Unilateral primary osteoarthritis, left knee] Chronic Other aftercare (20 sources) Long-term current use of 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; 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] 02-02-2021 Episodic Other and unspecified benign neoplasm (20 sources) Change in skin lesion; Translations: [Melanocytic nevi, unspecified] 12-02-2020 Episodic Other connective tissue disease (2 sources) Other muscle spasm; Translations: [Spasm of muscle] Episodic Other diseases of kidney and ureters (20 sources) Renal mass; Translations: [Other specified disorders [...] specified noninflammatory disorders of vagina] Episodic Other gastrointestinal disorders (1 source) Other fecal abnormalities; Translations: [Other fecal abnormalities] Onset: Episodic Other lower respiratory disease (20 sources) Dyspnea; Translations: [Shortness of breath] 12-02-2020 Episodic Other lower respiratory disease (10 sources) Shortness of breath; Translations: [Shortness of breath] Onset: Episodic Other lower respiratory disease (2 sources) Cough; Translations: [Cough] 05-26-2022 Episodic Other lower respiratory disease (20 sources) Dyspnea on exertion; Translations: [Other forms of dyspnea] 07-24-2024 Episodic Other lower respiratory disease (20 sources) Tachypnea; Translations: [Tachypnea, not elsewhere classified] 08-21-2024 Episodic Other lower respiratory disease (1 source) Other forms of dyspnea; Translations: [Other forms of dyspnea] Onset: Episodic Other nervous system disorders (1 source) Other chronic pain; Translations: [Other chronic pain] Onset: Chronic Other non-traumatic joint disorders (20 sources) Pain in left knee; Translations: [Chronic pain of left knee] Onset: 5 01-20-2021 Episodic Other non-traumatic joint disorders (12 sources) Pain in right knee; Translations: [Pain in both knees] Onset: 5 01-13-2025 Episodic Other nutritional; endocrine; and metabolic disorders (20 sources) Obesity; Translations: [Obesity, unspecified] 04-27-2021 Chronic Other screening for suspected conditions (not mental disorders or infectious disease) (20 sources) Left ventricular systolic dysfunction; Translations: [Abnormal findings on diagnostic imaging of heart and coronary circulation] Onset: 5 08-22-2024 Episodic Residual codes; unclassified (20 sources) Hypersomnia; Translations: [Hypersomnia, unspecified] 01-23-2025 Chronic Residual codes; unclassified (1 source) Hypersomnia, unspecified; Translations: [Hypersomnia, unspecified] Onset: Chronic Residual codes; unclassified (20 sources) Insomnia; Translations: [Insomnia, unspecified] 12-02-2020 Episodic Residual codes; unclassified (20 sources) Tobacco use and exposure - finding; Translations: [Tobacco use] 12-02-2020 Episodic Residual codes; unclassified (12 sources) Tobacco use; Translations: [Tobacco use disorder] Episodic Residual codes; unclassified (9 sources) Insomnia, unspecified; Translations: [Insomnia, unspecified] 06-13-2023 Episodic Residual codes; unclassified (20 sources) Edema of lower extremity; Translations: [Localized edema] 07-24-2024 Episodic Residual codes; unclassified (20 sources) Edema, generalized; Translations: [Generalized edema] 08-21-2024 Episodic Spondylosis; intervertebral disc disorders; other back [...] - Unilateral primary osteoarthritis, left knee Unclassified (20 sources) Pain in both knees; Translations: [M25.561 - Pain in right knee,M25.562 - Pain in left knee] Unclassified (4 sources) Paroxysmal atrial fibrillation with rapid ventricular response Unclassified (5 sources) Generalized edema Unclassified (5 sources) Open wound of lower extremity Unclassified (5 sources) History of pulmonary embolism Unclassified (5 sources) Osteoarthritis of left knee Unclassified (1 source) Left ventricular ejection fraction of 20-34% Unclassified (9 sources) M25.561 - Pain in right knee,M25.562 - Pain in left knee,G89.29 - Other chronic pain Unclassified (7 sources) Pain in both knees Unclassified (1 source) Supraceliac aneurysm of the thoracoabdominal aorta, without rupture; Translations: [Supraceliac aneurysm of the thoracoabdominal aorta, without rupture] Onset: Past or Other Problems Problem Classification Problem Date Documented Da te Episodic/Chronic Cardiac dysrhythmias (20 sources) Bradycardia; Translations: [Bradycardia, unspecified] Onset: 08-30-2024 08-24-2024 Episodic Deficiency and other anemia (1 source) Iron deficiency anemia, unspecified; Translations: [Iron deficiency anemia, unspecified] Onset: 08-30-2024 Episodic Nonspecific chest pain (20 sources) Chest pain; Translations: [Chest pain, unspecified] Onset: 09-01-2024 11-17-2022 Episodic Other aftercare (5 sources) 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; Translations: [Long-term (current) use of 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s] Onset: 10-20-2024 11-17-2022 Episodic Other aftercare (2 sources) care home (current) use of non-steroidal anti-inflammatories (NSAID); Translations: [care home (current) use of non-steroidal anti-inflammatories (NSAID)] Onset: 10-20-2024 Episodic Other connective tissue disease (2 sources) Calcaneal spur; Translations: [Calcaneal spur, unspecified foot] Onset: 10-03-2006 10-03-2006 Episodic Pulmonary heart disease (20 sources) H/O: pulmonary embolus; Translations: [Personal history of pulmonary embolism] Onset: 08-10-2020 Episodic Residual codes; unclassified (1 source) Localized edema; Translations: [Localized edema] Onset: 09-19-2024 Episodic Respiratory failure; insufficiency; arrest (adult) (20 sources) Acute hypoxemic respiratory failure; Translations: [Acute respiratory failure with hypoxia] Onset: 08-09-2020 01-20-2021 Episodic Results Test Name Value Interpretation Reference Range Facility Absolute lymphocyte countOrd ered By: Iglesia Benson on 03-23-2025 Lymphocytes Auto (Unsp spec) [#/Vol] 1.11 10*3/uL 0.83-4.51 [facility] Anion gap in Serum or Plasma Ordered By: Iglesia Benson on 03-23-2025 Anion gap [Moles/Vol] 10 mmol/L 5-15 [facility] Automated lymphocyte count a s percentage of total leukocytesOrdered By: Iglesia Benson on 03-23-2025 Lymphocytes/100 WBC Auto (Unsp spec) 12.5 % Low 19-41 [facility] BUN/creatinine ratioOrdered By: Iglesia Benson on 03-23-2025 Urea nitrogen/Creatinine [Mass ratio] 17.3 mg/mg - [facility] Basic Metabolic Profile (BMP )on 03-23-2025 BUN/CRE 17.3 RATIO Normal - [facility] Comment on above: Performed By: #### L 100.0100, L501.5200, L500.2500 ####[facility] [address] [place], [address] Calcium [Mass/Vol] 8.3 mg/dL Normal 7.6-11.0 [facility] Comment on above: Performed By: #### L 100.0100, L501.5200, L500.2500 ####[facility] [address] [place], [address] Chloride [Moles/Vol] 103 mmol/L Normal 98-108 [facility] Comment on above: Performed By: #### L 100.0100, L501.5200, L500.2500 ####[facility] [address] [place], [address] CO2 [Moles/Vol] 27.9 mmol/L Normal 21.0-32.0 [facility] Comment on above: Performed By: #### L 100.0100, L501.5200, L500.2500 ####[facility] [address] [place], [address] Creatinine [Mass/Vol] 0.81 mg/dL Normal 0.70-1.20 [facility] Comment on above: Performed By: #### L 100.0100, L501.5200, L500.2500 ####[facility] [address] [place], [address] ECRCL 76.16 ml/min Normal 50-250 [facility] Comment on above: Performed By: #### L 100.0100, L501.5200, L500.2500 ####[facility] [address] [place], [address] GAP 10 Normal 5-15 [facility] Comment on above: Performed By: #### L 100.0100, L501.5200, L500.2500 ####[facility] [address] [place], [address] GFR/1.73 sq M.predicted among non-blacks MDRD (S/P/Bld) [Vol rate/Area] 80 mL/min/{1.73_m2} Normal >60 [facility] Comment on above: Result Comment: mL/m in/1.73m2 CKD-EPI Creatinine Equation (2020) Performed By: #### L 100.0100, L501.5200, L500.2500 ####[facility] [address] [place], [address] Glucose [Mass/Vol] 105 mg/dL High 70-99 [facility] Comment on above: Performed By: #### L 100.0100, L501.5200, L500.2500 ####[facility] [address] [place], [address] Potassium [Moles/Vol] 4.0 mmol/L Normal 3.3-5.1 [facility] Comment on above: Performed By: #### L 100.0100, L501.5200, L500.2500 ####[facility] [address] [place], [address] Sodium [Moles/Vol] 140 mmol/L Normal 133-145 [facility] Comment on above: Performed By: #### L 100.0100, L501.5200, L500.2500 ####[facility] [address] [place], [address] Urea nitrogen [Mass/Vol] 14 mg/dL Normal 4-19 [facility] Comment on above: Performed By: #### L 100.0100, L501.5200, L500.2500 ####[facility] [address] [place], [address] Basophil percentageOrdered B y: Iglesia Benson on 03-23-2025 Basophils/100 WBC (Bld) 0.7 % 0-1 [facility] Blood manual differential co mment interpretation (narrative result)Ordered By: Iglesia Benson on 03-23-2025 Manual differential comment Mathieu (Bld) [Interp] SCANNED [facility] Blood polychromasia detectio n by light microscopyOrdered By: Iglesia Benson on 03-23-2025 Polychromasia LM Ql (Bld) RARE [facility] CBC W/Diff, Automatedon 11-0 Anisocytosis Ql (Bld) 2+ [facility] Comment on above: Performed By: #### L 100.0100, L501.5200, L500.2500 ####[facility] [address] [place], [address] POLYCHROMASIA RARE Normal [facility] Comment on above: Performed By: #### L 100.0100, L501.5200, L500.2500 ####[facility] [address] [place], [address] SMEAR COMMENT SCANNED Normal [facility] Comment on above: Performed By: #### L 100.0100, L501.5200, L500.2500 ####[facility] [address] [place], [address] Carbon dioxide, total [Moles /volume] in Central venous bloodOrdered By: Iglesia Benson on 03-23-2025 CO2 [Moles/Vol] 27.9 mmol/L 21.0-32.0 [facility] Chest PA and Lateralon 03-23 Chest PA and Lateral Normal [facility] Chloride assayOrdered By: Yinka Benson on 03-23-2025 Chloride [Moles/Vol] 103 mmol/L 98-108 [facility] Discharge Instructionon 110 Discharge Instruction Normal [facility] Eosinophil percentageOrdered By: Iglesia Benson on 03-23-2025 Eosinophils/100 WBC (Bld) 1.9 % 0-5 [facility] Erythrocyte distribution wid th ratioOrdered By: Iglesia Benson on 03-23-2025 Erythrocyte distribution width (RBC) [Ratio] 21.8 % High 11.6-14.6 [facility] Erythrocyte distribution wid th standard deviationOrdered By: Iglesia Benson on 03-23-2025 Erythrocyte distribution width (RBC) [Ratio] 65.7 fl High 35.1-43.9 [facility] Glomerular filtration rate ( GFR) estimation/1.73 sq m using serum, plasma, or whole bOrdered By: Iglesia Benson on 03-23-2025 GFR/1.73 sq M.predicted among non-blacks MDRD (S/P/Bld) [Vol rate/Area] 80 mL/min/{1.73_m2} >60 [facility] Hematocrit Auto (Bld) [Volum e fraction]Ordered By: Iglesia Benson on 03-23-2025 Hematocrit (Bld) [Volume fraction] 26.3 % Low 37-47 [facility] Hemoglobin measurementOrdere d By: Iglesia Benson on 03-23-2025 Hemoglobin (Bld) [Mass/Vol] 7.7 g/dL Low 12.0-15.0 [facility] Immature granulocytes/100 WB C Auto (Bld)Ordered By: Iglesia Benson on 03-23-2025 Immature granulocytes/100 WBC (Bld) 0.300 % 0.0-0.9 [facility] MCV (mean corpuscular volume ) determinationOrdered By: Iglesia Benson on 03-23-2025 MCV (RBC) [Entitic vol] 83.2 fL 81-99 [facility] Magnesiumon 03-23-2025 Magnesium [Mass/Vol] 1.6 mg/dL Normal 1.5-2.2 [facility] Comment on above: Performed By: #### L 100.0100, L501.5200, L500.2500 ####[facility] [address] [place], [place], [address] Magnesium measurement (mass/ volume)Ordered By: Samantha Gary on 03-23-2025 Magnesium (Unsp spec) [Mass/Vol] 1.6 mg/dL 1.5-2.2 [facility] Mean corpuscular hemoglobin (MCH) determinationOrdered By: Iglesia Benson on 03-23-2025 MCH (RBC) [Entitic mass] 24.4 pg Low 27.0-32.0 [facility] Monocyte percentageOrdered B y: Iglesia Benson on 03-23-2025 Monocytes/100 WBC (Bld) 14.8 % High 0-10 [facility] Neutrophil percentageOrdered By: Iglesia Benson on 03-23-2025 Neutrophils/100 WBC (Bld) 69.8 % 47-70 [facility] No Panel InformationOrdered By: Iglesia Benson on 03-23-2025 2+ [facility] Platelet countOrdered By: Yinka Benson on 03-23-2025 Platelets (Bld) [#/Vol] 319 10*3/uL 150-450 [facility] Potassium measurement (mass/ volume)Ordered By: Iglesia Benson on 03-23-2025 Potassium (Unsp spec) [Mass/Vol] 4.0 mmol/L 3.3-5.1 [facility] RBC Auto (Bld) [#/Vol]Ordere d By: Iglesia Benson on 03-23-2025 RBC (Bld) [#/Vol] 3.16 10*6/uL Low 4.2-5.4 [facility] Serum creatinine measurement (mass/volume)Ordered By: Iglesia Benson on 03-23-2025 Creatinine [Mass/Vol] 0.81 mg/dL 0.70-1.20 [facility] Serum glucose measurement (m ass/volume)Ordered By: Iglesia Benson on 03-23-2025 Glucose [Mass/Vol] 105 mg/dL High 70-99 [facility] Serum or plasma calcium lakshmi urement (mass/volume)Ordered By: Iglesia Benson on 03-23-2025 Calcium [Mass/Vol] 8.3 mg/dL 7.6-11.0 [facility] Serum or plasma urea nitroge n measurement (mass/volume)Ordered By: Iglesia Benson on 03-23-2025 Urea nitrogen [Mass/Vol] 14 mg/dL 4-19 [facility] Sodium levelOrdered By: Jenniffer Benson on 03-23-2025 Sodium [Moles/Vol] 140 mmol/L 133-145 [facility] White blood cell (WBC) count Ordered By: Iglesia Benson on 03-23-2025 WBC (Bld) [#/Vol] 8.9 10*3/uL 4.4-11.0 [facility] Basic Metabolic Profile (BMP )on 03-22-2025 BUN/CRE 18.6 RATIO Normal 10-20 [facility] Comment on above: Performed By: #### L 500.2500, L100.0100 ####[facility] [address] [place], [address] Calcium [Mass/Vol] 8.2 mg/dL Normal 7.6-11.0 [facility] Comment on above: Performed By: #### L 500.2500, L100.0100 ####[facility] [address] [place], [address] Chloride [Moles/Vol] 103 mmol/L Normal 98-108 [facility] Comment on above: Performed By: #### L 500.2500, L100.0100 ####[facility] [address] [place], [address] CO2 [Moles/Vol] 28.3 mmol/L Normal 21.0-32.0 [facility] Comment on above: Performed By: #### L 500.2500, L100.0100 ####[facility] [address] [place], [address] Creatinine [Mass/Vol] 0.83 mg/dL Normal 0.70-1.20 [facility] Comment on above: Performed By: #### L 500.2500, L100.0100 ####[facility] [address] [place], [address] ECRCL 75.20 ml/min Normal 50-250 [facility] Comment on above: Performed By: #### L 500.2500, L100.0100 ####[facility] [address] [place], [address] GAP 9 Normal 5-15 [facility] Comment on above: Performed By: #### L 500.2500, L100.0100 ####[facility] [address] [place], [address] GFR/1.73 sq M.predicted among non-blacks MDRD (S/P/Bld) [Vol rate/Area] 78 mL/min/{1.73_m2} Normal >60 [facility] Comment on above: Result Comment: mL/m in/1.73m2 CKD-EPI Creatinine Equation (2020) Performed By: #### L 500.2500, L100.0100 ####[facility] [address] [place], [address] Glucose [Mass/Vol] 111 mg/dL High 70-99 [facility] Comment on above: Performed By: #### L 500.2500, L100.0100 ####[facility] [address] [place], [address] Potassium [Moles/Vol] 3.2 mmol/L Low 3.3-5.1 [facility] Comment on above: Performed By: #### L 500.2500, L100.0100 ####[facility] [address] [place] [address], [address] Sodium [Moles/Vol] 140 mmol/L Normal 133-145 [facility] Comment on above: Performed By: #### L 500.2500, L100.0100 ####[facility] [address] [place], [address] Urea nitrogen [Mass/Vol] 15 mg/dL Normal 4-19 [facility] Comment on above: Performed By: #### L 500.2500, L100.0100 ####[facility] [address] [place], [address] CBC W/Diff, Automatedon 11-0 -2024 Absolute Lymph 1.08 X10 3/uL Normal 0.83-4.51 [facility] Comment on above: Performed By: #### L 500.2500, L100.0100 ####[facility] [address] [place] [place], [address] Absolute Neut 5.1 X10 3/uL Normal 2.0-7.7 [facility] Comment on above: Performed By: #### L 500.2500, L100.0100 ####[facility] [address] [place], [address] Basophils/100 WBC (Bld) 0.5 % Normal 0-1 [facility] Comment on above: Performed By: #### L 500.2500, L100.0100 ####[facility] [address] [place] [place], [address] Eosinophils/100 WBC (Bld) 1.6 % Normal 0-5 [facility] Comment on above: Performed By: #### L 500.2500, L100.0100 ####[facility] [address] [place], [address] Erythrocyte distribution width (RBC) [Ratio] 21.6 % High 11.6-14.6 [facility] Comment on above: Performed By: #### L 500.2500, L100.0100 ####[facility] [address] [place], [address] Hematocrit (Bld) [Volume fraction] 25.0 % Low 37-47 [facility] Comment on above: Performed By: #### L 500.2500, L100.0100 ####[facility] [address] [place], [address] Hemoglobin (Bld) [Mass/Vol] 7.4 g/dL Low 12.0-15.0 [facility] Comment on above: Performed By: #### L 500.2500, L100.0100 ####[facility] [address] [place], [address] IG% 0.400 Normal 0.0-0.9 [facility] Comment on above: Result Comment: IG% - Immature Granulocytes (promyelocytes, myelocytes andmetamyelocytes) > 1% indicates that a LEFT SHIFT is Present. Performed By: #### L 500.2500, L100.0100 ####[facility] [address] [place], [address] Lymphocytes/100 WBC (Bld) 14.8 % Low 19-41 [facility] Comment on above: Performed By: #### L 500.2500, L100.0100 ####[facility] [address] [place], [address] MCH (RBC) [Entitic mass] 24.7 pg Low 27.0-32.0 [facility] Comment on above: Performed By: #### L 500.2500, L100.0100 ####[facility] [address] [place], [address] MCHC (RBC) [Mass/Vol] 29.6 g/dL Low 32-36 [facility] Comment on above: Performed By: #### L 500.2500, L100.0100 ####[facility] [address] [place], [address] MCV (RBC) [Entitic vol] 83.3 fL Normal 81-99 [facility] Comment on above: Performed By: #### L 500.2500, L100.0100 ####[facility] [address] [place], [address] Monocytes/100 WBC (Bld) 12.3 % High 0-10 [facility] Comment on above: Performed By: #### L 500.2500, L100.0100 ####[facility] [address] [place], [address] Neutrophils/100 WBC (Bld) 70.4 % High 47-70 [facility] Comment on above: Performed By: #### L 500.2500, L100.0100 ####[facility] [address] [place], [address] Nucleated RBC (Bld) [#/Vol] 1.1 10*3/uL Normal 0-5 [facility] Comment on above: Performed By: #### L 500.2500, L100.0100 ####[facility] [address] [place], [address] Platelet mean volume (Bld) [Entitic vol] 10.8 fL Normal 6.2-12.0 [facility] Comment on above: Performed By: #### L 500.2500, L100.0100 ####[facility] [address] [place], [address] Platelets (Bld) [#/Vol] 270 10*3/uL Normal 150-450 [facility] Comment on above: Performed By: #### L 500.2500, L100.0100 ####[facility] [address] [place], [address] RBC (Bld) [#/Vol] 3.00 10*6/uL Low 4.2-5.4 [facility] Comment on above: Performed By: #### L 500.2500, L100.0100 ####[facility] [address] [place], [address] RDW SD 65.7 fl High 35.1-43.9 [facility] Comment on above: Performed By: #### L 500.2500, L100.0100 ####[facility] [address] [place], [address] WBC (Bld) [#/Vol] 7.3 10*3/uL Normal 4.4-11.0 [facility] Comment on above: Performed By: #### L 500.2500, L100.0100 ####[facility] [address] [place], [address] Basic Metabolic Profile (BMP )on 03-21-2025 BUN/CRE 15.0 RATIO Normal 10-20 [facility] Comment on above: Performed By: #### L 500.2500, L100.0100 ####[facility] [address] [place], [address] Calcium [Mass/Vol] 7.4 mg/dL Low 7.6-11.0 [facility] Comment on above: Performed By: #### L 500.2500, L100.0100 ####[facility] [address] [place], [address] Chloride [Moles/Vol] 105 mmol/L Normal 98-108 [facility] Comment on above: Performed By: #### L 500.2500, L100.0100 ####[facility] [address] [place], [address] CO2 [Moles/Vol] 21.7 mmol/L Normal 21.0-32.0 [facility] Comment on above: Performed By: #### L 500.2500, L100.0100 ####[facility] [address] [place], [address] Creatinine [Mass/Vol] 0.86 mg/dL Normal 0.70-1.20 [facility] Comment on above: Performed By: #### L 500.2500, L100.0100 ####[facility] [address] [place], [address] ECRCL 72.57 ml/min Normal 50-250 [facility] Comment on above: Performed By: #### L 500.2500, L100.0100 ####[facility] [address] [place], [address] GAP 9 Normal 5-15 [facility] Comment on above: Performed By: #### L 500.2500, L100.0100 ####[facility] [address] [place], [address] GFR/1.73 sq M.predicted among non-blacks MDRD (S/P/Bld) [Vol rate/Area] 74 mL/min/{1.73_m2} Normal >60 [facility] Comment on above: Result Comment: mL/m in/1.73m2 CKD-EPI Creatinine Equation (2020) Performed By: #### L 500.2500, L100.0100 ####[facility] [address] [place], [address] Glucose [Mass/Vol] 105 mg/dL High 70-99 [facility] Comment on above: Performed By: #### L 500.2500, L100.0100 ####[facility] [address] [place], [address] Potassium [Moles/Vol] 3.8 mmol/L Normal 3.3-5.1 [facility] Comment on above: Performed By: #### L 500.2500, L100.0100 ####[facility] [address] [place], [address] Sodium [Moles/Vol] 136 mmol/L Normal 133-145 [facility] Comment on above: Performed By: #### L 500.2500, L100.0100 ####[facility] [address] [place], [address] Urea nitrogen [Mass/Vol] 13 mg/dL Normal 4-19 [facility] Comment on above: Performed By: #### L 500.2500, L100.0100 ####[facility] [address] [place], [address] Blood schistocyte detection by light microscopyOrdered By: Nahid Garrido on 03-21-2025 Schistocytes LM Ql (Bld) RARE [facility] CBC W/Diff, Automatedon - HYPOCHROMASIA RARE [facility] Comment on above: Performed By: #### L 500.2500, L100.0100 ####[facility] [address] [place], [address] SMEAR COMMENT SCANNED Normal [facility] Comment on above: Result Comment: ANIS OCYTOSIS 2+ Performed By: #### L 500.2500, L100.0100 ####[facility] [address] [place], [address] OVALOCYTE 1+ Normal [facility] Comment on above: Performed By: #### L 500.2500, L100.0100 ####[facility] [address] [place], [address] PLT MORPH LARGE Normal [facility] Comment on above: Performed By: #### L 500.2500, L100.0100 ####[facility] [address] [place], [address] SIM CELLS RARE Normal [facility] Comment on above: Performed By: #### L 500.2500, L100.0100 ####[facility] [address] [place], [address] SCHISTOCYTES RARE Normal [facility] Comment on above: Performed By: #### L 500.2500, L100.0100 ####[facility] [address] [place], [address] Anisocytosis Ql (Bld) 2+ Normal [facility] Comment on above: Performed By: #### L 500.2500, L100.0100 ####[facility] [address] [place], [address] POLYCHROMASIA 1+ Normal [facility] Comment on above: Performed By: #### L 500.2500, L100.0100 ####[facility] [address] [place], [address] Crenated erythrocyte detecti on by light microscopyOrdered By: Nahid Garrido on 03-21-2025 [place] cells LM Ql (Bld) [facility] Hypochromatic red blood cell detectionOrdered By: Nahid Garrido on 03-21-2025 Hypochromia Ql (Bld) [facility] Magnesiumon 03-21-2025 Magnesium [Mass/Vol] 1.6 mg/dL Normal 1.5-2.2 [facility] Comment on above: Performed By: #### L 501.5200, L501.2300 ####[facility] [address] [place], [address] Ovalocyte detectionOrdered B y: Nahid Garrido on 03-21-2025 Ovalocytes LM Ql (Bld) 1+ [facility] Phosphoruson 03-21-2025 Phosphate [Mass/Vol] 3.1 mg/dL Normal 2.7-4.5 [facility] Comment on above: Performed By: #### L 501.5200, L501.2300 ####[facility] [address] [place], [address] Platelet morphologyOrdered B y: Nahid Garrido on 03-21-2025 Platelet morphology finding Nom (Bld) LARGE [facility] Prothrombin Time w/INRon INR Coag (PPP) [Relative time] 1.4 {INR} Normal [facility] Comment on above: Order Comment: PENG Rina PCU NURSE (CALLI) @1805 PT JUST GOT TO FLOOR NURSEWILL CALL BACKCALLED PCU AGAIN @2012 NURSE TO CALL BACK Performed By: #### L 300.3900 ####[facility] [address] [place], [place], [id number] PT Coag (PPP) [Time] 17.1 s High 11.7-14.9 [facility] Comment on above: Order Comment: PENG Rina PCU NURSE (CALLI) @1805 PT JUST GOT TO FLOOR NURSEWILL CALL BACKCALLED PCU AGAIN @2012 NURSE TO CALL BACK Performed By: #### L 300.3900 ####[facility] [address] [place], [address] Prothrombin timeOrdered By: Nahid Garrido on 03-21-2025 PT Coag (PPP) [Time] 17.1 s High 11.7-14.9 [facility] Activated partial thrombopla stin time (aPTT) in platelet poor plasma by coagulation aOrdered By: Keshav Chandler on 03-20-2025 aPTT Coag (PPP) [Time] 27.0 s 24.1-36.2 [facility] Basic Metabolic Profile (BMP )on 03-20-2025 BUN/CRE 19.6 RATIO Normal 03-10 [facility] Comment on above: Performed By: #### L 500.2500, L100.0100 ####[facility] [address] [place], [address] Calcium [Mass/Vol] 7.9 mg/dL Normal 7.6-11.0 [facility] Comment on above: Performed By: #### L 500.2500, L100.0100 ####[facility] [address] [place], [address] Chloride [Moles/Vol] 104 mmol/L Normal 98-108 [facility] Comment on above: Performed By: #### L 500.2500, L100.0100 ####[facility] [address] [place], [address] CO2 [Moles/Vol] 22.0 mmol/L Normal 21.0-32.0 [facility] Comment on above: Performed By: #### L 500.2500, L100.0100 ####[facility] [address] [place], [address] Creatinine [Mass/Vol] 0.72 mg/dL Normal 0.70-1.20 [facility] Comment on above: Performed By: #### L 500.2500, L100.0100 ####[facility] [address] [place] [place], [address] ECRCL 77.80 ml/min Normal 50-250 [facility] Comment on above: Performed By: #### L 500.2500, L100.0100 ####[facility] [address] [place], [address] GAP 8 Normal 5-15 [facility] Comment on above: Performed By: #### L 500.2500, L100.0100 ####[facility] [address] [place], [address] GFR/1.73 sq M.predicted among non-blacks MDRD (S/P/Bld) [Vol rate/Area] 91 mL/min/{1.73_m2} Normal >60 [facility] Comment on above: Result Comment: mL/m in/1.73m2 CKD-EPI Creatinine Equation (2020) Performed By: #### L 500.2500, L100.0100 ####[facility] [address] [place], [address] Glucose [Mass/Vol] 112 mg/dL High 70-99 [facility] Comment on above: Performed By: #### L 500.2500, L100.0100 ####[facility] [address] [place], [address] Potassium [Moles/Vol] 3.8 mmol/L Normal 3.3-5.1 [facility] Comment on above: Performed By: #### L 500.2500, L100.0100 ####[facility] [address] [place], [address] Sodium [Moles/Vol] 134 mmol/L Normal 133-145 [facility] Comment on above: Performed By: #### L 500.2500, L100.0100 ####[facility] [address] [place], [address] Urea nitrogen [Mass/Vol] 14 mg/dL Normal 4-19 [facility] Comment on above: Performed By: #### L 500.2500, L100.0100 ####[facility] [address] [place], [address] CBC W/Diff, Automatedon 10-3 0 Anisocytosis Ql (Bld) 3+ Normal [facility] Comment on above: Performed By: #### L 500.2500, L100.0100 ####[facility] [address] [place], [address] MICROCYTIC 1+ Normal [facility] Comment on above: Performed By: #### L 500.2500, L100.0100 ####[facility] [address] [place], [address] TARGET CELLS 1+ Normal [facility] Comment on above: Performed By: #### L 500.2500, L100.0100 ####[facility] [address] [place], [address] ACANTHOCYTE RARE Normal [facility] Comment on above: Performed By: #### L 500.2500, L100.0100 ####[facility] [address] [place], [address] OVALOCYTE 1+ Normal [facility] Comment on above: Performed By: #### L 500.2500, L100.0100 ####[facility] [address] [place], [address] SCHISTOCYTES RARE Normal [facility] Comment on above: Performed By: #### L 500.2500, L100.0100 ####[facility] [address] [place], [address] PLT EST ADEQUATE Normal ADEQ [facility] Comment on above: Performed By: #### L 500.2500, L100.0100 ####[facility] [address] [place], [address] POLYCHROMASIA 1+ Normal [facility] Comment on above: Performed By: #### L 500.2500, L100.0100 ####[facility] [address] [place], [address] SMEAR COMMENT SCANNED Normal [facility] Comment on above: Performed By: #### L 500.2500, L100.0100 ####[facility] [address] [place], [address] Colonoscopy Reporton 025 Colonoscopy Report Normal [facility] MR/OP.PROVATon 03-20-2025 MR/OP.PROVAT Normal [facility] MR/POSTOP.ANEon 03-20-2025 MR/POSTOP.ANE Normal [facility] MR/GCEUYZDY1en 03-20-2025 MR/POSTOPAN2 Normal [facility] Partial Thromboplast Timeon 03-20-2025 aPTT Coag (Bld) [Time] 27.0 s Normal 24.1-36.2 [facility] Comment on above: Performed By: #### L 300.3900, L300.4310 ####[facility] [address] [place], [address] Platelet estimateOrdered By: Nahid Garrido on 03-20-2025 Platelets LM Ql (Bld) ADEQUATE ADEQ [facility] Prothrombin Time w/INRon INR Coag (PPP) [Relative time] 1.3 {INR} Normal [facility] Comment on above: Performed By: #### L 300.3900, L300.4310 ####[facility] [address] [place], [address] PT Coag (PPP) [Time] 16.2 s High 11.7-14.9 [facility] Comment on above: Performed By: #### L 300.3900, L300.4310 ####[facility] [address] [place], [address] Surgery Specimen Level Doe 03-20-2025 Surgery Specimen Level IV Normal [facility] Comment on above: Performed By: #### P SUIV ####[facility] [address] [place], [address] Target cell detectionOrdered By: Nahid Garrido on 03-20-2025 Target cells LM Ql (Bld) 1+ [facility] Basic Metabolic Profile (BMP )on 03-19-2025 BUN/CRE 27.1 RATIO High 10-20 [facility] Comment on above: Performed By: #### L 100.0100, L500.2500, L501.2300, L501.5200 ####[facility] [address] [place], [address] Calcium [Mass/Vol] 7.8 mg/dL Normal 7.6-11.0 [facility] Comment on above: Performed By: #### L 100.0100, L500.2500, L501.2300, L501.5200 ####[facility] [address] [place], [address] Chloride [Moles/Vol] 106 mmol/L Normal 98-108 [facility] Comment on above: Performed By: #### L 100.0100, L500.2500, L501.2300, L501.5200 ####[facility] [address] [place], [address] CO2 [Moles/Vol] 20.8 mmol/L Low 21.0-32.0 [facility] Comment on above: Performed By: #### L 100.0100, L500.2500, L501.2300, L501.5200 ####[facility] [address] [place], [address] Creatinine [Mass/Vol] 0.75 mg/dL Normal 0.70-1.20 [facility] Comment on above: Performed By: #### L 100.0100, L500.2500, L501.2300, L501.5200 ####[facility] [address] [place], [address] ECRCL 77.80 ml/min Normal 50-250 [facility] Comment on above: Performed By: #### L 100.0100, L500.2500, L501.2300, L501.5200 ####[facility] [address] [place], [address] GAP 7 Normal 5-15 [facility] Comment on above: Performed By: #### L 100.0100, L500.2500, L501.2300, L501.5200 ####[facility] [address] [place], [address] GFR/1.73 sq M.predicted among non-blacks MDRD (S/P/Bld) [Vol rate/Area] 87 mL/min/{1.73_m2} Normal >60 [facility] Comment on above: Result Comment: mL/m in/1.73m2 CKD-EPI Creatinine Equation (2020) Performed By: #### L 100.0100, L500.2500, L501.2300, L501.5200 ####[facility] [address] [place], [address] Glucose [Mass/Vol] 128 mg/dL High 70-99 [facility] Comment on above: Performed By: #### L 100.0100, L500.2500, L501.2300, L501.5200 ####[facility] [address] [place], [address] Potassium [Moles/Vol] 4.0 mmol/L Normal 3.3-5.1 [facility] Comment on above: Performed By: #### L 100.0100, L500.2500, L501.2300, L501.5200 ####[facility] [address] [place], [address] Sodium [Moles/Vol] 134 mmol/L Normal 133-145 [facility] Comment on above: Performed By: #### L 100.0100, L500.2500, L501.2300, L501.5200 ####[facility] [address] [place], [address] Urea nitrogen [Mass/Vol] 20 mg/dL High 4-19 [facility] Comment on above: Performed By: #### L 100.0100, L500.2500, L501.2300, L501.5200 ####[facility] [address] [place], [address] CBC W/Diff, Automatedon 10-2 9-2025 Anisocytosis Ql (Bld) 1+ Normal [facility] Comment on above: Performed By: #### L 100.0100, L500.2500, L501.2300, L501.5200 ####[facility] [address] [place], [address] HH, Hemoglobin AND Hematocri ton 03-19-2025 Hematocrit (Bld) [Volume fraction] 26.1 % Low 37-47 [facility] Comment on above: Performed By: #### L 100.0600 ####[facility] [address] [place], [address] Hemoglobin (Bld) [Mass/Vol] 7.8 g/dL Low 12.0-15.0 [facility] Comment on above: Performed By: #### L 100.0600 ####[facility] [address] [place], [address] HCT Normal 37-47 [facility] Comment on above: Result Comment: This specimen has been REJECTED due to Laboratory criteria:Clotted.DEBORAH BRAY has been notified of need of recollection.03/19/251820 Yamila Araujo Performed By: #### L 100.0600 ####[facility] [address] [place], [address] HGB Normal 12.0-15.0 [facility] Comment on above: Result Comment: This specimen has been REJECTED due to Laboratory criteria:Clotted.DEBORAH BRAY has been notified of need of recollection.03/19/251820 Yamila Araujo Performed By: #### L 100.0600 ####[facility] [address] [place], [address] MR/PN.GIon 03-19-2025 MR/PN.GI Normal [facility] Magnesiumon 03-19-2025 Magnesium [Mass/Vol] 1.9 mg/dL Normal 1.5-2.2 [facility] Comment on above: Performed By: #### L 100.0100, L500.2500, L501.2300, L501.5200 ####[facility] [address] [place], [address] Phosphoruson 03-19-2025 Phosphate [Mass/Vol] 3.2 mg/dL Normal 2.7-4.5 [facility] Comment on above: Performed By: #### L 100.0100, L500.2500, L501.2300, L501.5200 ####[facility] [address] [place], [address] Prothrombin Time w/INRon INR Coag (PPP) [Relative time] 1.4 {INR} Normal [facility] Comment on above: Performed By: #### L 300.3900 ####[facility] [address] [place], [address] PT Coag (PPP) [Time] 17.1 s High 11.7-14.9 [facility] Comment on above: Performed By: #### L 300.3900 ####[facility] [address] [place], [address] Stool Occult Blood iFOBon STOB COLLECTED. 03-18-25 05:07 Occult Blood A Positive A OCCULT BLOOD POSITIVE Normal [facility] Comment on above: Performed By: #### L 300.3900, L100.0100, L500.4050, M100.7900 ####[facility] [address] [place], [address] Stool gastrointestinal hemog lobin detection by immunologic methodOrdered By: Harpal Buckner on 03-19-2025 Lower GI hemoglobin IA Ql (Stl) Positive Abnormal [facility] Basic Metabolic Profile (BMP )on 03-18-2025 BUN/CRE 29.9 RATIO High 03-10 [facility] Comment on above: Performed By: #### L 500.2500 ####[facility] [address] [place], [address] Calcium [Mass/Vol] 8.0 mg/dL Normal 7.6-11.0 [facility] Comment on above: Performed By: #### L 500.2500 ####[facility] [address] [place], [address] Chloride [Moles/Vol] 107 mmol/L Normal 98-108 [facility] Comment on above: Performed By: #### L 500.2500 ####[facility] [address] [place], [address] CO2 [Moles/Vol] 20.0 mmol/L Low 21.0-32.0 [facility] Comment on above: Performed By: #### L 500.2500 ####[facility] [address] [place], [address] Creatinine [Mass/Vol] 0.83 mg/dL Normal 0.70-1.20 [facility] Comment on above: Performed By: #### L 500.2500 ####[facility] [address] [place], [address] ECRCL 74.41 ml/min Normal 50-250 [facility] Comment on above: Performed By: #### L 500.2500 ####[facility] [address] [place], [address] GAP 9 Normal 5-15 [facility] Comment on above: Performed By: #### L 500.2500 ####[facility] [address] [place], [address] GFR/1.73 sq M.predicted among non-blacks MDRD (S/P/Bld) [Vol rate/Area] 77 mL/min/{1.73_m2} Normal >60 [facility] Comment on above: Result Comment: mL/m in/1.73m2 CKD-EPI Creatinine Equation (2021) Performed By: #### L 500.2500 ####[facility] [address] [place], [address] Glucose [Mass/Vol] 114 mg/dL High 70-99 [facility] Comment on above: Performed By: #### L 500.2500 ####[facility] [address] [place], [address] Potassium [Moles/Vol] 4.4 mmol/L Normal 3.3-5.1 [facility] Comment on above: Result Comment: Hemo lysis present, Results??could be affected.?? Performed By: #### L 500.2500 ####[facility] [address] [place], [address] Sodium [Moles/Vol] 136 mmol/L Normal 133-145 [facility] Comment on above: Performed By: #### L 500.2500 ####[facility] [address] [place], [address] Urea nitrogen [Mass/Vol] 25 mg/dL High 4-19 [facility] Comment on above: Performed By: #### L 500.2500 ####[facility] [address] [place], [address] CBC-Complete Blood Cnt No Di ffon 03-18-2025 RDW SD 61.8 fl High 35.1-43.9 [facility] Comment on above: Result Comment: 2+ A NISOCYTOSIS, 2+ POLYCHROMASIA, 1+ MICROCYTOSIS, 2+HYPOCHROMASIA AMENDED REPORT 03/18/25 1215 RDW SD previously reported as: 61.8 H fl Performed By: #### L 100.0500 ####[facility] [address] [place], [address] Erythrocyte distribution width (RBC) [Ratio] 21.2 % High 11.6-14.6 [facility] Comment on above: Performed By: #### L 100.0500 ####[facility] [address] [place], [address] Hematocrit (Bld) [Volume fraction] 25.6 % Low 37-47 [facility] Comment on above: Performed By: #### L 100.0500 ####[facility] [address] [place], [address] Hemoglobin (Bld) [Mass/Vol] 8.6 g/dL Low 12.0-15.0 [facility] Comment on above: Performed By: #### L 100.0500 ####[facility] [address] [place], [address] MCH (RBC) [Entitic mass] 27.7 pg Normal 27.0-32.0 [facility] Comment on above: Performed By: #### L 100.0500 ####[facility] [address] [place], [address] MCHC (RBC) [Mass/Vol] 33.6 g/dL Normal 32-36 [facility] Comment on above: Performed By: #### L 100.0500 ####[facility] [facility] [address] [place], [address] MCV (RBC) [Entitic vol] 82.3 fL Normal 81-99 [facility] Comment on above: Performed By: #### L 100.0500 ####[facility] [address] [place], [address] Platelet mean volume (Bld) [Entitic vol] 10.8 fL Normal 6.2-12.0 [facility] Comment on above: Performed By: #### L 100.0500 ####[facility] [address] [place], [address] Platelets (Bld) [#/Vol] 230 10*3/uL Normal 150-450 [facility] Comment on above: Performed By: #### L 100.0500 ####[facility] [address] [place], [address] RBC (Bld) [#/Vol] 3.11 10*6/uL Low 4.2-5.4 [facility] Comment on above: Performed By: #### L 100.0500 ####[facility] [address] [place], [address] RDW SD 59.5 fl High 35.1-43.9 [facility] Comment on above: Performed By: #### L 100.0500 ####[facility] [address] [place], [address] WBC (Bld) [#/Vol] 9.0 10*3/uL Normal 4.4-11.0 [facility] Comment on above: Performed By: #### L 100.0500 ####[facility] [address] [place], [address] HCT Normal 37-47 [facility] Comment on above: Result Comment: DUPL ICATE OF H54 Performed By: #### L 100.0500 ####[facility] [address] [place], [address] HGB Normal 12.0-15.0 [facility] Comment on above: Result Comment: DUPL ICATE OF H54 Performed By: #### L 100.0500 ####[facility] [address] [place], [address] MCH Normal 27.0-32.0 [facility] Comment on above: Result Comment: DUPL ICATE OF H54 Performed By: #### L 100.0500 ####[facility] [address] [place], [address] MCHC Normal 32-36 [facility] Comment on above: Result Comment: DUPL ICATE OF H54 Performed By: #### L 100.0500 ####[facility] [address] [place], [address] MCV Normal 81-99 [facility] Comment on above: Result Comment: DUPL ICATE OF H54 Performed By: #### L 100.0500 ####[facility] [address] [place], [address] PLT Normal 150-450 [facility] Comment on above: Result Comment: DUPL ICATE OF H54 Performed By: #### L 100.0500 ####[facility] [address] [place], [address] RBC Normal 4.2-5.4 [facility] Comment on above: Result Comment: DUPL ICATE OF H54 Performed By: #### L 100.0500 ####[facility] [address] [place], [address] RDW CV Normal 11.6-14.6 [facility] Comment on above: Result Comment: DUPL ICATE OF H54 Performed By: #### L 100.0500 ####[facility] [address] [place], [address] RDW SD Normal 35.1-43.9 [facility] Comment on above: Result Comment: DUPL ICATE OF H54 Performed By: #### L 100.0500 ####[facility] [address] [place], [address] WBC Normal 4.4-11.0 [facility] Comment on above: Result Comment: DUPL ICATE OF H54 Performed By: #### L 100.0500 ####[facility] [address] [place], [address] EGD Reporton 03-18-2025 EGD Report Normal [facility] HH, Hemoglobin AND Hematocri ton 03-18-2025 Hematocrit (Bld) [Volume fraction] 24.9 % Low 37-47 [facility] Comment on above: Performed By: #### L 100.0600 ####[facility] [address] [place], [address] Hemoglobin (Bld) [Mass/Vol] 7.6 g/dL Low 12.0-15.0 [facility] Comment on above: Performed By: #### L 100.0600 ####[facility] [address] [place], [address] MR/CON.PCM.GIon 03-18-2025 MR/CON.PCM.GI Normal [facility] MR/OP.PROVATon 03-18-2025 MR/OP.PROVAT Normal [facility] MR/POSTOP.ANEon 03-18-2025 MR/POSTOP.ANE Normal [facility] MR/BXIGMSJP2nr 03-18-2025 MR/POSTOPAN2 Normal [facility] Surgery Specimen Level Doe 03-18-2025 Surgery Specimen Level IV Normal [facility] Comment on above: Performed By: #### P SUIV ####[facility] [address] [place], [address] BRCon 03-17-2025 RC Normal [facility] Comment on above: Result Comment: [id number] AP RC TRANSFUSED 03/17/25 [id number] AP RC TRANSFUSED 03/17/25 1919 Performed By: #### B RC ####[facility] [address] [place], [address] Result Comment: [id number] AP RC TRANSFUSED 03/18/25 0109 Bedside Glucoseon 03-17-2025 FINGERSTICK GLU 122 mg/dL High 74-106 [facility] Comment on above: Result Comment: CAESAR BENITEZ OF PATIENT CARE PER NURSING PROTOCOL Performed By: #### L 501.080 ####[facility] [address] [place], [address] Bilirubin, totalOrdered By: Harpal Buckner on 03-17-2025 Bilirubin [Mass/Vol] 0.74 mg/dL 0.00-1.30 [facility] CBC W/Diff, Automatedon - OVALOCYTE 1+ Normal [facility] Comment on above: Performed By: #### L 300.3900, L100.0100, L500.4050, M100.7900 ####[facility] [address] [place], [address] HYPOCHROMASIA 1+ Normal [facility] Comment on above: Performed By: #### L 300.3900, L100.0100, L500.4050, M100.7900 ####[facility] [address] [place], [address] POLYCHROMASIA 2+ Normal [facility] Comment on above: Performed By: #### L 300.3900, L100.0100, L500.4050, M100.7900 ####[facility] [address] [place], [address] Anisocytosis Ql (Bld) 2+ [facility] Comment on above: Performed By: #### L 300.3900, L100.0100, L500.4050, M100.7900 ####[facility] [address] [place], [address] PLT EST ADEQUATE Normal ADEQ [facility] Comment on above: Performed By: #### L 300.3900, L100.0100, L500.4050, M100.7900 ####[facility] [address] [place], [address] SMEAR COMMENT SCANNED Normal [facility] Comment on above: Performed By: #### L 300.3900, L100.0100, L500.4050, M100.7900 ####[facility] [address] [place], [address] Comprehensive Metabolic Prof ilon 03-17-2025 Albumin [Mass/Vol] 3.1 g/dL Low 3.4-4.8 [facility] Comment on above: Performed By: #### L 300.3900, L100.0100, L500.4050, M100.7900 ####[facility] [address] [place], [address] Albumin/Globulin [Mass ratio] 1.3 {ratio} Normal 0.9-2.4 [facility] Comment on above: Performed By: #### L 300.3900, L100.0100, L500.4050, M100.7900 ####[facility] [address] [place], [address] ALK PHOS 66 U/L Normal 35-104 [facility] Comment on above: Performed By: #### L 300.3900, L100.0100, L500.4050, M100.7900 ####[facility] [address] [place], [address] ALT [Catalytic activity/Vol] 16 U/L Normal <=34 [facility] Comment on above: Performed By: #### L 300.3900, L100.0100, L500.4050, M100.7900 ####[facility] [address] [place], [address] AST [Catalytic activity/Vol] 21 U/L Normal <=31 [facility] Comment on above: Performed By: #### L 300.3900, L100.0100, L500.4050, M100.7900 ####[facility] [address] [place], [address] Bilirubin [Mass/Vol] 0.74 mg/dL Normal 0.00-1.30 [facility] Comment on above: Performed By: #### L 300.3900, L100.0100, L500.4050, M100.7900 ####[facility] [address] [place], [address] BUN/CRE 33.8 RATIO High 10-20 [facility] Comment on above: Performed By: #### L 300.3900, L100.0100, L500.4050, M100.7900 ####[facility] [address] [place], [address] Calcium [Mass/Vol] 8.0 mg/dL Normal 7.6-11.0 [facility] Comment on above: Performed By: #### L 300.3900, L100.0100, L500.4050, M100.7900 ####[facility] [address] [place], [address] Chloride [Moles/Vol] 106 mmol/L Normal 98-108 [facility] Comment on above: Performed By: #### L 300.3900, L100.0100, L500.4050, M100.7900 ####[facility] [address] [place], [address] CO2 [Moles/Vol] 20.6 mmol/L Low 21.0-32.0 [facility] Comment on above: Performed By: #### L 300.3900, L100.0100, L500.4050, M100.7900 ####[facility] [address] [place], [address] Creatinine [Mass/Vol] 0.63 mg/dL Low 0.70-1.20 [facility] Comment on above: Performed By: #### L 300.3900, L100.0100, L500.4050, M100.7900 ####[facility] [address] [place], [address] ECRCL 76.51 ml/min Normal 50-250 [facility] Comment on above: Performed By: #### L 300.3900, L100.0100, L500.4050, M100.7900 ####[facility] [address] [place], [address] GAP 10 Normal 5-15 [facility] Comment on above: Performed By: #### L 300.3900, L100.0100, L500.4050, M100.7900 ####[facility] [address] [place], [address] GFR/1.73 sq M.predicted among non-blacks MDRD (S/P/Bld) [Vol rate/Area] 97 mL/min/{1.73_m2} Normal >60 [facility] Comment on above: Result Comment: mL/m in/1.73m2 CKD-EPI Creatinine Equation (2020) Performed By: #### L 300.3900, L100.0100, L500.4050, M100.7900 ####[facility] [address] [place], [address] Globulin (S) [Mass/Vol] 2.3 g/dL Normal 2.2-4.2 [facility] Comment on above: Performed By: #### L 300.3900, L100.0100, L500.4050, M100.7900 ####[facility] [address] [place], [address] Glucose [Mass/Vol] 137 mg/dL High 70-99 [facility] Comment on above: Performed By: #### L 300.3900, L100.0100, L500.4050, M100.7900 ####[facility] [address] [place], [address] Potassium [Moles/Vol] 3.8 mmol/L Normal 3.3-5.1 [facility] Comment on above: Performed By: #### L 300.3900, L100.0100, L500.4050, M100.7900 ####[facility] [address] [place], [address] Sodium [Moles/Vol] 136 mmol/L Normal 133-145 [facility] Comment on above: Performed By: #### L 300.3900, L100.0100, L500.4050, M100.7900 ####[facility] [address] [place], [address] T PROT 5.4 g/dL Low 5.9-8.4 [facility] Comment on above: Performed By: #### L 300.3900, L100.0100, L500.4050, M100.7900 ####[facility] [address] [place], [address] Urea nitrogen [Mass/Vol] 21 mg/dL High 4-19 [facility] Comment on above: Performed By: #### L 300.3900, L100.0100, L500.4050, M100.7900 ####[facility] [address] [place], [address] Emergency Department Summary on 03-17-2025 Emergency Department Summary Normal [facility] deOrdered By: Harpal Buckner on 03-17-2025 Glucose [Mass/Vol] 122 mg/dL High 74-106 [facility] H AND P Exam - Hospitaliston 03-17-2025 H&P Exam - Hospitalist Normal [facility] No Panel InformationOrdered By: Harpal Buckner on 03-17-2025 21 U/L <32 [facility] Prothrombin Time w/INRon INR Coag (PPP) [Relative time] 4.3 {INR} Invalid Interpretation Code [facility] Comment on above: Result Comment: CRIT ICAL VALUE CALLED TO DAVID TELLO03/17/25 1819 Yamila Araujo.RESULTS READ BACK BY SAME. Performed By: #### L 300.3900, L100.0100, L500.4050, M100.7900 ####[facility] [address] [place], [place], [id number] PT Coag (PPP) [Time] 42.4 s High 11.7-14.9 [facility] Comment on above: Performed By: #### L 300.3900, L100.0100, L500.4050, M100.7900 ####[facility] [address] [place], [place], [address] Serum globulin measurementOr dered By: Harpal Buckner on 03-17-2025 Globulin (S) [Mass/Vol] 2.3 g/dL 2.2-4.2 [facility] Serum or plasma alanine kebede otransferase (ALT) measurementOrdered By: Harpal Buckner on 03-17-2025 ALT [Catalytic activity/Vol] 16 U/L <35 [facility] Serum or plasma albumin lakshmi urement (mass/volume)Ordered By: Harpal Buckner on 03-17-2025 Albumin [Mass/Vol] 3.1 g/dL Low 3.4-4.8 [facility] Serum or plasma albumin/glob ulin mass ratioOrdered By: Harpal Buckner on 03-17-2025 Albumin/Globulin [Mass ratio] 1.3 {ratio} 0.9-2.4 [facility] Serum or plasma alkaline david sphatase measurementOrdered By: Harpal Buckner on 03-17-2025 ALP [Catalytic activity/Vol] 66 U/L 35-104 [facility] Total proteinOrdered By: Zena Buckner on 03-17-2025 Protein [Mass/Vol] 5.4 g/dL Low 5.9-8.4 [facility] Type AND Screenon 03-17-2025 ABO and Rh group Nom (Bld) Blood group A Rh(D) positive Normal [facility] Comment on above: Order Comment: SANTY Martinez PREVIOUS SPECIMEN REJECTED DUE TOMISLABELED. 03/17/251803 Chidi Gary.A Performed By: #### B TS ####[facility] [address] [place], [place], [address] A1 CELL Not performed Normal [facility] Comment on above: Order Comment: A Result Comment: This specimen has been REJECTED due to Laboratory criteria:MisLabelled.DAVID TELLO has been notified of need of recollection.03/17/251802 Chidi L White Performed By: #### B TS ####[facility] [address] [place], [address] Ab SCREEN GEL Not performed Normal [facility] Comment on above: Order Comment: A Result Comment: This specimen has been REJECTED due to Laboratory criteria:MisLabelled.DAVID TELLO has been notified of need of recollection.03/17/251802 Chidi L White Performed By: #### B TS ####[facility] [address] [place], [address] ABO and Rh group Nom (Bld) Test Not Performed Normal [facility] Comment on above: Order Comment: A Result Comment: This specimen has been REJECTED due to Laboratory criteria:MisLabelled.DAVID TELLO has been notified of need of recollection.03/17/251802 Chidi L White Performed By: #### B TS ####[facility] [address] [place], [address] ANTI A Not performed Normal [facility] Comment on above: Order Comment: A Result Comment: This specimen has been REJECTED due to Laboratory criteria:MisLabelled.DAVID TELLO has been notified of need of recollection.03/17/251802 Chidi L White Performed By: #### B TS ####[facility] [address] [place], [address] ANTI B Not performed Normal [facility] Comment on above: Order Comment: A Result Comment: This specimen has been REJECTED due to Laboratory criteria:MisLabelled.DAVID TELLO has been notified of need of recollection.03/17/251802 Chidi L White Performed By: #### B TS ####[facility] [address] [place], [address] ANTI D Not performed Normal [facility] Comment on above: Order Comment: A Result Comment: This specimen has been REJECTED due to Laboratory criteria:MisLabelled.DAVID TELLO has been notified of need of recollection.03/17/251802 Chidi Patton White Performed By: #### B TS ####[facility] [address] [place], [address] B CELLS Not performed Normal [facility] Comment on above: Order Comment: A Result Comment: This specimen has been REJECTED due to Laboratory criteria:MisLabelled.DAVID TELLO has been notified of need of recollection.03/17/251802 Chidi Patton White Performed By: #### B TS ####[facility] [address] [place], [address] Absolute lymphocyte countOrd ered By: Sravanthi Marroquin on 02-21-2025 Lymphocytes Auto (Unsp spec) [#/Vol] 1.22 10*3/uL 0.83-4.51 [facility] Anion gap in Serum or Plasma Ordered By: Sravanthi Marroquin on 02-21-2025 Anion gap [Moles/Vol] 13 mmol/L 5-15 [facility] Automated lymphocyte count a s percentage of total leukocytesOrdered By: Sravanthi Marroquin on 02-21-2025 Lymphocytes/100 WBC Auto (Unsp spec) 15.6 % Low 19-41 [facility] BUN/creatinine ratioOrdered By: Sravanthi Marroquin on 02-21-2025 Urea nitrogen/Creatinine [Mass ratio] 27.4 mg/mg High 03-10 [facility] Basic Metabolic Profile (BMP )on 02-21-2025 BUN/CRE 27.4 RATIO High 03-10 [facility] Comment on above: Order Comment: STAND ING ORDER Performed By: #### L 300.3900, L500.2500, L100.0100, L503.7505 ####[facility] [address] [place], [address] Calcium [Mass/Vol] 8.9 mg/dL Normal 7.6-11.0 [facility] Comment on above: Order Comment: STAND ING ORDER Performed By: #### L 300.3900, L500.2500, L100.0100, L503.7505 ####[facility] [address] [place], [address] Chloride [Moles/Vol] 105 mmol/L Normal 98-108 [facility] Comment on above: Order Comment: STAND ING ORDER Performed By: #### L 300.3900, L500.2500, L100.0100, L503.7505 ####[facility] [address] [place], [address] CO2 [Moles/Vol] 22.4 mmol/L Normal 21.0-32.0 [facility] Comment on above: Order Comment: STAND ING ORDER Performed By: #### L 300.3900, L500.2500, L100.0100, L503.7505 ####[facility] [address] [place], [address] Creatinine [Mass/Vol] 0.74 mg/dL Normal 0.70-1.20 [facility] Comment on above: Order Comment: STAND ING ORDER Performed By: #### L 300.3900, L500.2500, L100.0100, L503.7505 ####[facility] [address] [place], [address] GAP 13 Normal 5-15 [facility] Comment on above: Order Comment: STAND ING ORDER Performed By: #### L 300.3900, L500.2500, L100.0100, L503.7505 ####[facility] [address] [place], [address] GFR/1.73 sq M.predicted among non-blacks MDRD (S/P/Bld) [Vol rate/Area] 89 mL/min/{1.73_m2} Normal >60 [facility] Comment on above: Order Comment: STAND ING ORDER Result Comment: mL/m in/1.73m2 CKD-EPI Creatinine Equation (2020) Performed By: #### L 300.3900, L500.2500, L100.0100, L503.7505 ####[facility] [address] [place], [address] Glucose [Mass/Vol] 128 mg/dL High 70-99 [facility] Comment on above: Order Comment: STAND ING ORDER Performed By: #### L 300.3900, L500.2500, L100.0100, L503.7505 ####[facility] [address] [place], [address] Potassium [Moles/Vol] 3.7 mmol/L Normal 3.3-5.1 [facility] Comment on above: Order Comment: STAND ING ORDER Performed By: #### L 300.3900, L500.2500, L100.0100, L503.7505 ####[facility] [address] [place], [address] Sodium [Moles/Vol] 141 mmol/L Normal 133-145 [facility] Comment on above: Order Comment: STAND ING ORDER Performed By: #### L 300.3900, L500.2500, L100.0100, L503.7505 ####[facility] [address] [place], [address] Urea nitrogen [Mass/Vol] 20 mg/dL High 4-19 [facility] Comment on above: Order Comment: STAND ING ORDER Performed By: #### L 300.3900, L500.2500, L100.0100, L503.7505 ####[facility] [address] [place], [address] Basophil percentageOrdered B y: Sravanthi Marroquin on 02-21-2025 Basophils/100 WBC (Bld) 0.8 % 0-1 [facility] Blood polychromasia detectio n by light microscopyOrdered By: Sravanthi Marroquin on 02-21-2025 Polychromasia LM Ql (Bld) 1+ [facility] CBC W/Diff, Automatedon 10-0 Anisocytosis Ql (Bld) 1+ [facility] Comment on above: Performed By: #### L 300.3900, L500.2500, L100.0100, L503.7505 ####[facility] [address] [place], [address] OVALOCYTE 1+ Normal [facility] Comment on above: Performed By: #### L 300.3900, L500.2500, L100.0100, L503.7505 ####[facility] [address] [place], [address] POLYCHROMASIA 1+ Normal [facility] Comment on above: Performed By: #### L 300.3900, L500.2500, L100.0100, L503.7505 ####[facility] [address] [place], [address] Carbon dioxide, total [Moles /volume] in Central venous bloodOrdered By: Sravanthi Marroquin on 02-21-2025 CO2 [Moles/Vol] 22.4 mmol/L 21.0-32.0 [facility] Chloride assayOrdered By: Gregg Marroquin on 02-21-2025 Chloride [Moles/Vol] 105 mmol/L 98-108 [facility] Eosinophil percentageOrdered By: Sravanthi Marroquin on 02-21-2025 Eosinophils/100 WBC (Bld) 1.8 % 0-5 [facility] Erythrocyte distribution wid th ratioOrdered By: Sravanthi Marroquin on 02-21-2025 Erythrocyte distribution width (RBC) [Ratio] 21.7 % High 11.6-14.6 [facility] Erythrocyte distribution wid th standard deviationOrdered By: Sravanthi Marroquin on 02-21-2025 Erythrocyte distribution width (RBC) [Ratio] 56.8 fl High 35.1-43.9 [facility] Glomerular filtration rate ( GFR) estimation/1.73 sq m using serum, plasma, or whole bOrdered By: Sravanthi Marroquin on 02-21-2025 GFR/1.73 sq M.predicted among non-blacks MDRD (S/P/Bld) [Vol rate/Area] 89 mL/min/{1.73_m2} >60 [facility] Hematocrit Auto (Bld) [Volum e fraction]Ordered By: Sravanthi Marroquin on 02-21-2025 Hematocrit (Bld) [Volume fraction] 36.0 % Low 37-47 [facility] Hemoglobin measurementOrdere d By: Sravanthi Marroquin on 02-21-2025 Hemoglobin (Bld) [Mass/Vol] 10.6 g/dL Low 12.0-15.0 [facility] Immature granulocytes/100 WB C Auto (Bld)Ordered By: Sravanthi Marroquin on 02-21-2025 Immature granulocytes/100 WBC (Bld) 0.100 % 0.0-0.9 [facility] MCV (mean corpuscular volume ) determinationOrdered By: Sravanthi Marroquin on 02-21-2025 MCV (RBC) [Entitic vol] 73.8 fL Low 81-99 [facility] Mean corpuscular hemoglobin (MCH) determinationOrdered By: Sravanthi Marroquin on 02-21-2025 MCH (RBC) [Entitic mass] 21.7 pg Low 27.0-32.0 [facility] Monocyte percentageOrdered B y: Sravanthi Marroquin on 02-21-2025 Monocytes/100 WBC (Bld) 8.8 % 0-10 [facility] Natriuretic peptide.B prohor bhumi N-Terminal [Mass/volume] in Serum or PlasmaOrdered By: Sravanthi Marroquin on 02-21-2025 Natriuretic peptide.B prohormone N-Terminal [Mass/Vol] 2682 pg/mL High <900 [facility] Neutrophil percentageOrdered By: Sravanthi Marroquin on 02-21-2025 Neutrophils/100 WBC (Bld) 72.9 % High 47-70 [facility] No Panel InformationOrdered By: Sravanthi Marroquin on 02-21-2025 1+ [facility] Ovalocyte detectionOrdered B y: Sravanthi Marroquin on 02-21-2025 Ovalocytes LM Ql (Bld) 1+ [facility] Platelet countOrdered By: Gregg Marroquin on 02-21-2025 Platelets (Bld) [#/Vol] 257 10*3/uL 150-450 [facility] Potassium measurement (mass/ volume)Ordered By: Sravanthi Marroquin on 02-21-2025 Potassium (Unsp spec) [Mass/Vol] 3.7 mmol/L 3.3-5.1 [facility] Pro- Brain NATRIURETIC PEPTI Susy 02-21-2025 Natriuretic peptide B (Bld) [Mass/Vol] 2682 pg/mL High <=900 [facility] Comment on above: Result Comment: Hear t Failure Unlikely: < 300 pg/mLHeart Failure Likely< 50 Years: > 450 pg/mL50-75 Years: > 900 pg/mL>75 Years: > 1800 pg/mL Performed By: #### L 300.3900, L500.2500, L100.0100, L503.7505 ####[facility] [address] [place], [address] Prothrombin Time w/INRon INR Coag (PPP) [Relative time] 2.3 {INR} Normal [facility] Comment on above: Order Comment: Comme nts: STANDING ORDER Performed By: #### L 300.3900, L500.2500, L100.0100, L503.7505 ####[facility] [address] [place], [address] PT Coag (PPP) [Time] 25.7 s High 11.7-14.9 [facility] Comment on above: Order Comment: Comme nts: STANDING ORDER Performed By: #### L 300.3900, L500.2500, L100.0100, L503.7505 ####[facility] [address] [place], [address] Prothrombin timeOrdered By: Sravanthi Marroquin on 02-21-2025 PT Coag (PPP) [Time] 25.7 s High 11.7-14.9 [facility] RBC Auto (Bld) [#/Vol]Ordere d By: Sravanthi Marroquin on 02-21-2025 RBC (Bld) [#/Vol] 4.88 10*6/uL 4.2-5.4 [facility] Serum creatinine measurement (mass/volume)Ordered By: Sravanthi Marroquin on 02-21-2025 Creatinine [Mass/Vol] 0.74 mg/dL 0.70-1.20 [facility] Serum glucose measurement (m ass/volume)Ordered By: Sravanthi Marroquin on 02-21-2025 Glucose [Mass/Vol] 128 mg/dL High 70-99 [facility] Serum or plasma calcium lakshmi urement (mass/volume)Ordered By: Sravanthi Marroquin on 02-21-2025 Calcium [Mass/Vol] 8.9 mg/dL 7.6-11.0 [facility] Serum or plasma urea nitroge n measurement (mass/volume)Ordered By: Sravanthi Marroquin on 02-21-2025 Urea nitrogen [Mass/Vol] 20 mg/dL High 4-19 [facility] Sodium levelOrdered By: Keyona Marroquin on 02-21-2025 Sodium [Moles/Vol] 141 mmol/L 133-145 [facility] White blood cell (WBC) count Ordered By: Sravanthi Marroquin on 02-21-2025 WBC (Bld) [#/Vol] 7.8 10*3/uL 4.4-11.0 [facility] Cardiology Visit Reporton Cardiology Visit Report Normal [facility] Anion gap in Serum or Plasma Ordered By: Sravanthi Marroquin on 02-12-2025 Anion gap [Moles/Vol] 12 mmol/L 5- [facility] BUN/creatinine ratioOrdered By: Sravanthi Marroquin on 02-12-2025 Urea nitrogen/Creatinine [Mass ratio] 25.8 mg/mg High 03-10 [facility] Basic Metabolic Profile (BMP )on 02-12-2025 BUN/CRE 25.8 RATIO High 03-10 [facility] Comment on above: Order Comment: Pleas e do along with BMP Performed By: #### L 500.2500, L300.3900 ####[facility] [address] [place], [address] Calcium [Mass/Vol] 9.0 mg/dL Normal 7.6-11.0 [facility] Comment on above: Order Comment: Pleas e do along with BMP Performed By: #### L 500.2500, L300.3900 ####[facility] [address] [place], [address] Chloride [Moles/Vol] 104 mmol/L Normal 98-108 [facility] Comment on above: Order Comment: Pleas e do along with BMP Performed By: #### L 500.2500, L300.3900 ####[facility] [address] [place], [address] CO2 [Moles/Vol] 20.7 mmol/L Low 21.0-32.0 [facility] Comment on above: Order Comment: Pleas e do along with BMP Performed By: #### L 500.2500, L300.3900 ####[facility] [address] [place], [address] Creatinine [Mass/Vol] 0.83 mg/dL Normal 0.70-1.20 [facility] Comment on above: Order Comment: Pleas e do along with BMP Performed By: #### L 500.2500, L300.3900 ####[facility] [address] [place], [address] GAP 12 Normal 5-15 [facility] Comment on above: Order Comment: Pleas e do along with BMP Performed By: #### L 500.2500, L300.3900 ####[facility] [address] [place], [address] GFR/1.73 sq M.predicted among non-blacks MDRD (S/P/Bld) [Vol rate/Area] 77 mL/min/{1.73_m2} Normal >60 [facility] Comment on above: Order Comment: Pleas e do along with BMP Result Comment: mL/m in/1.73m2 CKD-EPI Creatinine Equation (2020) Performed By: #### L 500.2500, L300.3900 ####[facility] [address] [place], [address] Glucose [Mass/Vol] 113 mg/dL High 70-99 [facility] Comment on above: Order Comment: Pleas e do along with BMP Performed By: #### L 500.2500, L300.3900 ####[facility] [address] [place], [address] Potassium [Moles/Vol] 4.7 mmol/L Normal 3.3-5.1 [facility] Comment on above: Order Comment: Pleas e do along with BMP Performed By: #### L 500.2500, L300.3900 ####[facility] [address] [place], [address] Sodium [Moles/Vol] 137 mmol/L Normal 133-145 [facility] Comment on above: Order Comment: Pleas e do along with BMP Performed By: #### L 500.2500, L300.3900 ####[facility] [address] [place], [address] Urea nitrogen [Mass/Vol] 21 mg/dL High 4-19 [facility] Comment on above: Order Comment: Pleas e do along with BMP Performed By: #### L 500.2500, L300.3900 ####[facility] [address] [place], [address] Carbon dioxide, total [Moles /volume] in Central venous bloodOrdered By: Sravanthi Marroquin on 02-12-2025 CO2 [Moles/Vol] 20.7 mmol/L Low 21.0-32.0 [facility] Chloride assayOrdered By: Gregg Marroquin on 02-12-2025 Chloride [Moles/Vol] 104 mmol/L 98-108 [facility] Glomerular filtration rate ( GFR) estimation/1.73 sq m using serum, plasma, or whole bOrdered By: Sravanthi Marroquin on 02-12-2025 GFR/1.73 sq M.predicted among non-blacks MDRD (S/P/Bld) [Vol rate/Area] 77 mL/min/{1.73_m2} >60 [facility] Comment on above: mL/min/1.73m2 CKD-EP I Creatinine Equation (2020) International normalized rat io (INR) calculationOrdered By: Sravanthi Marroquin on 02-12-2025 INR Coag (Bld) [Relative time] 5.3 {INR} Critically high [facility] Comment on above: CRITICAL VALUE PENG D TO [facility]02/12/25 1041 Jeny Walters.RESULTS READ BACK BY MELODY THOMAS. Potassium measurement (mass/ volume)Ordered By: Sravanthi Marroquin on 02-12-2025 Potassium (Unsp spec) [Mass/Vol] 4.7 mmol/L 3.3-5.1 [facility] Prothrombin Time w/INRon INR Coag (PPP) [Relative time] 5.3 {INR} Invalid Interpretation Code [facility] Comment on above: Order Comment: Comme nts: Please do along with BMP Result Comment: CRIT ICAL VALUE CALLED TO [facility]02/12/25 1041 Jeny Walters.RESULTS READ BACK BY MELODY THOMAS. Performed By: #### L 500.2500, L300.3900 ####[facility] [address] [place], [address] PT Coag (PPP) [Time] 49.9 s High 11.7-14.9 [facility] Comment on above: Order Comment: Comme nts: Please do along with BMP Performed By: #### L 500.2500, L300.3900 ####[facility] [address] [place], [address] Prothrombin timeOrdered By: Sravanthi Marroquin on 02-12-2025 PT Coag (PPP) [Time] 49.9 s High 11.7-14.9 [facility] Serum creatinine measurement (mass/volume)Ordered By: Sravanthi Marroquin on 02-12-2025 Creatinine [Mass/Vol] 0.83 mg/dL 0.70-1.20 [facility] Serum glucose measurement (m ass/volume)Ordered By: Sravanthi Marroquin on 02-12-2025 Glucose [Mass/Vol] 113 mg/dL High 70-99 [facility] Serum or plasma calcium lakshmi urement (mass/volume)Ordered By: Sravanthi Marroquin on 02-12-2025 Calcium [Mass/Vol] 9.0 mg/dL 7.6-11.0 [facility] Serum or plasma urea nitroge n measurement (mass/volume)Ordered By: Sravanthi Marroquin on 02-12-2025 Urea nitrogen [Mass/Vol] 21 mg/dL High 4-19 [facility] Sodium levelOrdered By: Keyona Marroquin on 02-12-2025 Sodium [Moles/Vol] 137 mmol/L 133-145 [facility] Absolute lymphocyte countOrd ered By: Sravanthi Marroquin on 01-23-2025 Lymphocytes Auto (Unsp spec) [#/Vol] 1.23 10*3/uL 0.83-4.51 [facility] Absolute neutrophil countOrd ered By: Sravanthi Marroquin on 01-23-2025 Neutrophils (Bld) [#/Vol] 4.7 10*3/uL 2.0-7.7 [facility] Anion gap in Serum or Plasma Ordered By: Sravanthi Marroquin on 01-23-2025 Anion gap [Moles/Vol] 12 mmol/L 5-15 [facility] Automated lymphocyte count a s percentage of total leukocytesOrdered By: Sravanthi Marroquin on 01-23-2025 Lymphocytes/100 WBC Auto (Unsp spec) 18.3 % Low 19-41 [facility] BUN/creatinine ratioOrdered By: Sravanthi Marroquin on 01-23-2025 Urea nitrogen/Creatinine [Mass ratio] 25.7 mg/mg High 10-20 [facility] Basic Metabolic Profile (BMP )on 01-23-2025 BUN/CRE 25.7 RATIO High 10-20 [facility] Comment on above: Performed By: #### L 100.0100, L500.2500, L503.7505 ####[facility] [address] [place], [address] Calcium [Mass/Vol] 8.9 mg/dL Normal 7.6-11.0 [facility] Comment on above: Performed By: #### L 100.0100, L500.2500, L503.7505 ####[facility] [address] [place], [address] Chloride [Moles/Vol] 103 mmol/L Normal 98-108 [facility] Comment on above: Performed By: #### L 100.0100, L500.2500, L503.7505 ####[facility] [address] [place], [address] CO2 [Moles/Vol] 27.5 mmol/L Normal 21.0-32.0 [facility] Comment on above: Performed By: #### L 100.0100, L500.2500, L503.7505 ####[facility] [address] [place], [address] Creatinine [Mass/Vol] 0.76 mg/dL Normal 0.70-1.20 [facility] Comment on above: Performed By: #### L 100.0100, L500.2500, L503.7505 ####[facility] [address] [place], [address] GAP 12 Normal 5-15 [facility] Comment on above: Performed By: #### L 100.0100, L500.2500, L503.7505 ####[facility] [address] [place], [address] GFR/1.73 sq M.predicted among non-blacks MDRD (S/P/Bld) [Vol rate/Area] 86 mL/min/{1.73_m2} Normal >60 [facility] Comment on above: Result Comment: mL/m in/1.73m2 CKD-EPI Creatinine Equation (2020) Performed By: #### L 100.0100, L500.2500, L503.7505 ####[facility] [address] [place], [address] Glucose [Mass/Vol] 89 mg/dL Normal 70-99 [facility] Comment on above: Performed By: #### L 100.0100, L500.2500, L503.7505 ####[facility] [address] [place], [address] Potassium [Moles/Vol] 3.2 mmol/L Low 3.3-5.1 [facility] Comment on above: Performed By: #### L 100.0100, L500.2500, L503.7505 ####[facility] [address] [place], [address] Sodium [Moles/Vol] 142 mmol/L Normal 133-145 [facility] Comment on above: Performed By: #### L 100.0100, L500.2500, L503.7505 ####[facility] [address] [place], [address] Urea nitrogen [Mass/Vol] 20 mg/dL High 4-19 [facility] Comment on above: Performed By: #### L 100.0100, L500.2500, L503.7505 ####[facility] [address] [place], [address] Basophil percentageOrdered B y: Sravanthi Marroquin on 01-23-2025 Basophils/100 WBC (Bld) 0.7 % 0-1 [facility] Blood manual differential co mment interpretation (narrative result)Ordered By: Sravanthi Marroquin on 01-23-2025 Manual differential comment Mathieu (Bld) [Interp] SCANNED [facility] CBC W/Diff, Automatedon Anisocytosis Ql (Bld) 2+ Normal [facility] Comment on above: Performed By: #### L 100.0100, L500.2500, L503.7505 ####[facility] [address] [place], [address] PLT EST ADEQUATE Normal ADEQ [facility] Comment on above: Performed By: #### L 100.0100, L500.2500, L503.7505 ####[facility] [address] [place], [address] SMEAR COMMENT SCANNED Normal [facility] Comment on above: Performed By: #### L 100.0100, L500.2500, L503.7505 ####[facility] [address] [place], [address] Carbon dioxide, total [Moles /volume] in Central venous bloodOrdered By: Sravanthi Marroquin on 01-23-2025 CO2 [Moles/Vol] 27.5 mmol/L 21.0-32.0 [facility] Cardiology Visit Reporton Cardiology Visit Report Normal [facility] Chloride assayOrdered By: Gregg Marroquin on 01-23-2025 Chloride [Moles/Vol] 103 mmol/L 98-108 [facility] Eosinophil percentageOrdered By: Sravanthi Marroquin on 01-23-2025 Eosinophils/100 WBC (Bld) 1.8 % 0-5 [facility] Erythrocyte distribution wid th ratioOrdered By: Sravanthi Marroquin on 01-23-2025 Erythrocyte distribution width (RBC) [Ratio] 22.5 % High 11.6-14.6 [facility] Erythrocyte distribution wid th standard deviationOrdered By: Sravanthi Marroquin on 01-23-2025 Erythrocyte distribution width (RBC) [Ratio] 57.1 fl High 35.1-43.9 [facility] Glomerular filtration rate ( GFR) estimation/1.73 sq m using serum, plasma, or whole bOrdered By: Sravanthi Marroquin on 01-23-2025 GFR/1.73 sq M.predicted among non-blacks MDRD (S/P/Bld) [Vol rate/Area] 86 mL/min/{1.73_m2} >60 [facility] Comment on above: mL/min/1.73m2 CKD-EP I Creatinine Equation (2020) Hematocrit Auto (Bld) [Volum e fraction]Ordered By: Sravanthi Marroquin on 01-23-2025 Hematocrit (Bld) [Volume fraction] 36.3 % Low 37-47 [facility] Hemoglobin measurementOrdere d By: Sravanthi Marroquin on 01-23-2025 Hemoglobin (Bld) [Mass/Vol] 10.5 g/dL Low 12.0-15.0 [facility] Immature granulocytes/100 WB C Auto (Bld)Ordered By: Sravanthi Marroquin on 01-23-2025 Immature granulocytes/100 WBC (Bld) 0.300 % 0.0-0.9 [facility] Comment on above: IG% - Immature Granu locytes (promyelocytes, myelocytes and metamyelocytes) > 1% indicates that a LEFT SHIFT is Present. Laboratory - Hematology and Cell countsOrdered By: Sravanthi Marroquin on 01-23-2025 Anisocytosis Ql (Bld) 2+ [facility] MCV (mean corpuscular volume ) determinationOrdered By: Sravanthi Marroquin on 01-23-2025 MCV (RBC) [Entitic vol] 72.6 fL Low 81-99 [facility] Mean corpuscular hemoglobin (MCH) determinationOrdered By: Sravanthi Marroquin on 01-23-2025 MCH (RBC) [Entitic mass] 21.0 pg Low 27.0-32.0 [facility] Mean corpuscular hemoglobin concentration (MCHC) determinationOrdered By: Sravanthi Marroquin on 01-23-2025 MCHC (RBC) [Mass/Vol] 28.9 g/dL Low 32-36 [facility] Mean platelet volume determi nationOrdered By: Sravanthi Marroquin on 01-23-2025 Platelet mean volume (Bld) [Entitic vol] 10.3 fL 6.2-12.0 [facility] Monocyte percentageOrdered B y: Sravanthi Marroquin on 01-23-2025 Monocytes/100 WBC (Bld) 8.5 % 0-10 [facility] Natriuretic peptide.B prohor bhumi N-Terminal [Mass/volume] in Serum or PlasmaOrdered By: Sravanthi Marroquin on 01-23-2025 Natriuretic peptide.B prohormone N-Terminal [Mass/Vol] 6328 pg/mL High <900 [facility] Comment on above: Heart Failure Unlike ly: < 300 pg/mLHeart Failure Likely< 50 Years: > 450 pg/mL50-75 Years: > 900 pg/mL>75 Years: > 1800 pg/mL Neutrophil percentageOrdered By: Sravanthi Marroquin on 01-23-2025 Neutrophils/100 WBC (Bld) 70.4 % High 47-70 [facility] No Panel InformationOrdered By: Sravanthi Marroquin on 01-23-2025 2+ [facility] Nucleated red blood cell per centageOrdered By: Sravanthi Marroquin on 01-23-2025 Nucleated RBC/100 WBC (Bld) [Ratio] 0 % 0-5 [facility] Pacemaker Checkon 01-23-2025 Pacemaker Check Normal [facility] Platelet countOrdered By: Gregg Marroquin on 01-23-2025 Platelets (Bld) [#/Vol] 238 10*3/uL 150-450 [facility] Platelet estimateOrdered By: Sravanthi Marroquin on 01-23-2025 Platelets LM Ql (Bld) ADEQUATE ADEQ [facility] Potassium measurement (mass/ volume)Ordered By: Sravanthi Marroquin on 01-23-2025 Potassium (Unsp spec) [Mass/Vol] 3.2 mmol/L Low 3.3-5.1 [facility] Pro- Brain NATRIURETIC PEPTI Susy 01-23-2025 Natriuretic peptide B (Bld) [Mass/Vol] 6328 pg/mL High <=900 [facility] Comment on above: Result Comment: Hear t Failure Unlikely: < 300 pg/mLHeart Failure Likely< 50 Years: > 450 pg/mL50-75 Years: > 900 pg/mL>75 Years: > 1800 pg/mL Performed By: #### L 100.0100, L500.2500, L503.7505 ####[facility] [address] [place], [address] RBC Auto (Bld) [#/Vol]Ordere d By: Sravanthi Marroquin on 01-23-2025 RBC (Bld) [#/Vol] 5.00 10*6/uL 4.2-5.4 [facility] Serum creatinine measurement (mass/volume)Ordered By: rSavanthi Marroquin on 01-23-2025 Creatinine [Mass/Vol] 0.76 mg/dL 0.70-1.20 [facility] Serum glucose measurement (m ass/volume)Ordered By: Sravanthi Marroquin on 01-23-2025 Glucose [Mass/Vol] 89 mg/dL 70-99 [facility] Serum or plasma calcium lakshmi urement (mass/volume)Ordered By: Sravanthi Marroquin on 01-23-2025 Calcium [Mass/Vol] 8.9 mg/dL 7.6-11.0 [facility] Serum or plasma urea nitroge n measurement (mass/volume)Ordered By: Sravanthi Marroquin on 01-23-2025 Urea nitrogen [Mass/Vol] 20 mg/dL High 4-19 [facility] Sodium levelOrdered By: Keyona Marroquin on 01-23-2025 Sodium [Moles/Vol] 142 mmol/L 133-145 [facility] White blood cell (WBC) count Ordered By: Sravanthi Marroquin on 01-23-2025 WBC (Bld) [#/Vol] 6.7 10*3/uL 4.4-11.0 [facility] Internal Medicine Office Vis iton 01-13-2025 Internal Medicine Office Visit Normal [facility] Pacemaker Checkon 12-23-2024 Pacemaker Check Normal [facility] Basic Metabolic Profile (BMP )on 12-20-2024 BUN Normal 4-19 [facility] Comment on above: Result Comment: Canc elled via OM: Order cancelled - Patient discharged Performed By: #### L 100.0100, L500.2500 ####[facility] [address] [place], [address] BUN/CRE Normal 10-20 [facility] Comment on above: Result Comment: Canc elled via OM: Order cancelled - Patient discharged Performed By: #### L 100.0100, L500.2500 ####[facility] [address] [place], [address] Calcium Normal 7.6-11.0 [facility] Comment on above: Result Comment: Canc elled via OM: Order cancelled - Patient discharged Performed By: #### L 100.0100, L500.2500 ####[facility] [address] [place], [address] CL Normal 98-108 [facility] Comment on above: Result Comment: Canc elled via OM: Order cancelled - Patient discharged Performed By: #### L 100.0100, L500.2500 ####[facility] [address] [place], [address] CO2 Normal 21.0-32.0 [facility] Comment on above: Result Comment: Canc elled via OM: Order cancelled - Patient discharged Performed By: #### L 100.0100, L500.2500 ####[facility] [address] [place], [address] CREAT,SERUM Normal 0.70-1.20 [facility] Comment on above: Result Comment: Canc elled via OM: Order cancelled - Patient discharged Performed By: #### L 100.0100, L500.2500 ####[facility] [address] [place], [address] eGFR Normal >60 [facility] Comment on above: Result Comment: Canc elled via OM: Order cancelled - Patient discharged Performed By: #### L 100.0100, L500.2500 ####[facility] [address] [place], [address] GAP Normal 5-15 [facility] Comment on above: Result Comment: Canc elled via OM: Order cancelled - Patient discharged Performed By: #### L 100.0100, L500.2500 ####[facility] [address] [place], [address] GLU Normal 70-99 [facility] Comment on above: Result Comment: Canc elled via OM: Order cancelled - Patient discharged Performed By: #### L 100.0100, L500.2500 ####[facility] [address] [place], [address] Potassium Normal 3.3-5.1 [facility] Comment on above: Result Comment: Canc elled via OM: Order cancelled - Patient discharged Performed By: #### L 100.0100, L500.2500 ####[facility] [address] [place], [address] Basic Metabolic Profile (BMP) Normal 133-145 [facility] Comment on above: Result Comment: Canc elled via OM: Order cancelled - Patient discharged Performed By: #### L 100.0100, L500.2500 ####[facility] [address] [place], [address] CBC W/Diff, Automatedon 08-0 1-2025 Absolute Neut Normal 2.0-7.7 [facility] Comment on above: Result Comment: Canc elled via OM: Order cancelled - Patient discharged Performed By: #### L 100.0100, L500.2500 ####[facility] [address] [place], [address] HCT Normal 37-47 [facility] Comment on above: Result Comment: Canc elled via OM: Order cancelled - Patient discharged Performed By: #### L 100.0100, L500.2500 ####[facility] [address] [place], [address] HGB Normal 12.0-15.0 [facility] Comment on above: Result Comment: Canc elled via OM: Order cancelled - Patient discharged Performed By: #### L 100.0100, L500.2500 ####[facility] [address] [place], [address] MCH Normal 27.0-32.0 [facility] Comment on above: Result Comment: Canc elled via OM: Order cancelled - Patient discharged Performed By: #### L 100.0100, L500.2500 ####[facility] [address] [place], [address] MCHC Normal 32-36 [facility] Comment on above: Result Comment: Canc elled via OM: Order cancelled - Patient discharged Performed By: #### L 100.0100, L500.2500 ####[facility] [address] [place], [address] MCV Normal 81-99 [facility] Comment on above: Result Comment: Canc elled via OM: Order cancelled - Patient discharged Performed By: #### L 100.0100, L500.2500 ####[facility] [address] [place], [address] NEUT% Normal 47-70 [facility] Comment on above: Result Comment: Canc elled via OM: Order cancelled - Patient discharged Performed By: #### L 100.0100, L500.2500 ####[facility] [address] [place], [address] PLT Normal 150-450 [facility] Comment on above: Result Comment: Canc elled via OM: Order cancelled - Patient discharged Performed By: #### L 100.0100, L500.2500 ####[facility] [address] [place], [address] RBC Normal 4.2-5.4 [facility] Comment on above: Result Comment: Canc elled via OM: Order cancelled - Patient discharged Performed By: #### L 100.0100, L500.2500 ####[facility] [address] [place], [address] RDW CV Normal 11.6-14.6 [facility] Comment on above: Result Comment: Canc elled via OM: Order cancelled - Patient discharged Performed By: #### L 100.0100, L500.2500 ####[facility] [address] [place], [address] RDW SD Normal 35.1-43.9 [facility] Comment on above: Result Comment: Canc elled via OM: Order cancelled - Patient discharged Performed By: #### L 100.0100, L500.2500 ####[facility] [address] [place], [address] WBC Normal 4.4-11.0 [facility] Comment on above: Result Comment: Canc elled via OM: Order cancelled - Patient discharged Performed By: #### L 100.0100, L500.2500 ####[facility] [address] [place], [address] Basic Metabolic Profile (BMP )on 12-19-2024 BUN Normal 4-19 [facility] Comment on above: Result Comment: Canc elled via OM: Order cancelled - Patient discharged Performed By: #### L 100.0100, L500.2500 ####[facility] [address] [place], [address] BUN/CRE Normal 10-20 [facility] Comment on above: Result Comment: Canc elled via OM: Order cancelled - Patient discharged Performed By: #### L 100.0100, L500.2500 ####[facility] [address] [place], [address] Calcium Normal 7.6-11.0 [facility] Comment on above: Result Comment: Canc elled via OM: Order cancelled - Patient discharged Performed By: #### L 100.0100, L500.2500 ####[facility] [address] [place], [address] CL Normal 98-108 [facility] Comment on above: Result Comment: Canc elled via OM: Order cancelled - Patient discharged Performed By: #### L 100.0100, L500.2500 ####[facility] [address] [place], [address] CO2 Normal 21.0-32.0 [facility] Comment on above: Result Comment: Canc elled via OM: Order cancelled - Patient discharged Performed By: #### L 100.0100, L500.2500 ####[facility] [address] [place], [address] CREAT,SERUM Normal 0.70-1.20 [facility] Comment on above: Result Comment: Canc elled via OM: Order cancelled - Patient discharged Performed By: #### L 100.0100, L500.2500 ####[facility] [address] [place], [address] eGFR Normal >60 [facility] Comment on above: Result Comment: Canc elled via OM: Order cancelled - Patient discharged Performed By: #### L 100.0100, L500.2500 ####[facility] [address] [place], [address] GAP Normal 5-15 [facility] Comment on above: Result Comment: Canc elled via OM: Order cancelled - Patient discharged Performed By: #### L 100.0100, L500.2500 ####[facility] [address] [place], [address] GLU Normal 70-99 [facility] Comment on above: Result Comment: Canc elled via OM: Order cancelled - Patient discharged Performed By: #### L 100.0100, L500.2500 ####[facility] [address] [place], [address] Potassium Normal 3.3-5.1 [facility] Comment on above: Result Comment: Canc elled via OM: Order cancelled - Patient discharged Performed By: #### L 100.0100, L500.2500 ####[facility] [address] [place], [address] Basic Metabolic Profile (BMP) Normal 133-145 [facility] Comment on above: Result Comment: Canc elled via OM: Order cancelled - Patient discharged Performed By: #### L 100.0100, L500.2500 ####[facility] [address] [place], [address] CBC W/Diff, Automatedon 07-3 Absolute Neut Normal 2.0-7.7 [facility] Comment on above: Result Comment: Canc elled via OM: Order cancelled - Patient discharged Performed By: #### L 100.0100, L500.2500 ####[facility] [address] [place], [address] HCT Normal 37-47 [facility] Comment on above: Result Comment: Canc elled via OM: Order cancelled - Patient discharged Performed By: #### L 100.0100, L500.2500 ####[facility] [address] [place], [address] HGB Normal 12.0-15.0 [facility] Comment on above: Result Comment: Canc elled via OM: Order cancelled - Patient discharged Performed By: #### L 100.0100, L500.2500 ####[facility] [address] [place], [address] MCH Normal 27.0-32.0 [facility] Comment on above: Result Comment: Canc elled via OM: Order cancelled - Patient discharged Performed By: #### L 100.0100, L500.2500 ####[facility] [address] [place], [address] MCHC Normal 32-36 [facility] Comment on above: Result Comment: Canc elled via OM: Order cancelled - Patient discharged Performed By: #### L 100.0100, L500.2500 ####[facility] [address] [place], [address] MCV Normal 81-99 [facility] Comment on above: Result Comment: Canc elled via OM: Order cancelled - Patient discharged Performed By: #### L 100.0100, L500.2500 ####[facility] [address] [place], [address] NEUT% Normal 47-70 [facility] Comment on above: Result Comment: Canc elled via OM: Order cancelled - Patient discharged Performed By: #### L 100.0100, L500.2500 ####[facility] [address] [place], [address] PLT Normal 150-450 [facility] Comment on above: Result Comment: Canc elled via OM: Order cancelled - Patient discharged Performed By: #### L 100.0100, L500.2500 ####[facility] [address] [place], [address] RBC Normal 4.2-5.4 [facility] Comment on above: Result Comment: Canc elled via OM: Order cancelled - Patient discharged Performed By: #### L 100.0100, L500.2500 ####[facility] [address] [place], [address] RDW CV Normal 11.6-14.6 [facility] Comment on above: Result Comment: Canc elled via OM: Order cancelled - Patient discharged Performed By: #### L 100.0100, L500.2500 ####[facility] [address] [place], [address] RDW SD Normal 35.1-43.9 [facility] Comment on above: Result Comment: Canc elled via OM: Order cancelled - Patient discharged Performed By: #### L 100.0100, L500.2500 ####[facility] [address] [place], [address] WBC Normal 4.4-11.0 [facility] Comment on above: Result Comment: Canc elled via OM: Order cancelled - Patient discharged Performed By: #### L 100.0100, L500.2500 ####[facility] [address] [place], [address] Basic Metabolic Profile (BMP )on 12-18-2024 BUN Normal 4-19 [facility] Comment on above: Result Comment: Canc elled via OM: Order cancelled - Patient discharged Performed By: #### L 500.2500, L100.0100 ####[facility] [address] [place], [address] BUN/CRE Normal 10-20 [facility] Comment on above: Result Comment: Canc elled via OM: Order cancelled - Patient discharged Performed By: #### L 500.2500, L100.0100 ####[facility] [address] [place], [address] Calcium Normal 7.6-11.0 [facility] Comment on above: Result Comment: Canc elled via OM: Order cancelled - Patient discharged Performed By: #### L 500.2500, L100.0100 ####[facility] [address] [place], [address] CL Normal 98-108 [facility] Comment on above: Result Comment: Canc elled via OM: Order cancelled - Patient discharged Performed By: #### L 500.2500, L100.0100 ####[facility] [address] [place], [address] CO2 Normal 21.0-32.0 [facility] Comment on above: Result Comment: Canc elled via OM: Order cancelled - Patient discharged Performed By: #### L 500.2500, L100.0100 ####[facility] [address] [place], [address] CREAT,SERUM Normal 0.70-1.20 [facility] Comment on above: Result Comment: Canc elled via OM: Order cancelled - Patient discharged Performed By: #### L 500.2500, L100.0100 ####[facility] [address] [place], [address] eGFR Normal >60 [facility] Comment on above: Result Comment: Canc elled via OM: Order cancelled - Patient discharged Performed By: #### L 500.2500, L100.0100 ####[facility] [address] [place], [address] GAP Normal 5-15 [facility] Comment on above: Result Comment: Canc elled via OM: Order cancelled - Patient discharged Performed By: #### L 500.2500, L100.0100 ####[facility] [address] [place], [address] GLU Normal 70-99 [facility] Comment on above: Result Comment: Canc elled via OM: Order cancelled - Patient discharged Performed By: #### L 500.2500, L100.0100 ####[facility] [address] [place], [address] Potassium Normal 3.3-5.1 [facility] Comment on above: Result Comment: Canc elled via OM: Order cancelled - Patient discharged Performed By: #### L 500.2500, L100.0100 ####[facility] [address] [place], [address] Basic Metabolic Profile (BMP) Normal 133-145 [facility] Comment on above: Result Comment: Canc elled via OM: Order cancelled - Patient discharged Performed By: #### L 500.2500, L100.0100 ####[facility] [address] [place], [address] CBC W/Diff, Automatedon 07-3 0-2024 Absolute Neut Normal 2.0-7.7 [facility] Comment on above: Result Comment: Canc elled via OM: Order cancelled - Patient discharged Performed By: #### L 500.2500, L100.0100 ####[facility] [address] [place], [address] HCT Normal 37-47 [facility] Comment on above: Result Comment: Canc elled via OM: Order cancelled - Patient discharged Performed By: #### L 500.2500, L100.0100 ####[facility] [address] [place], [address] HGB Normal 12.0-15.0 [facility] Comment on above: Result Comment: Canc elled via OM: Order cancelled - Patient discharged Performed By: #### L 500.2500, L100.0100 ####[facility] [address] [place], [address] MCH Normal 27.0-32.0 [facility] Comment on above: Result Comment: Canc elled via OM: Order cancelled - Patient discharged Performed By: #### L 500.2500, L100.0100 ####[facility] [address] [place], [address] MCHC Normal 32-36 [facility] Comment on above: Result Comment: Canc elled via OM: Order cancelled - Patient discharged Performed By: #### L 500.2500, L100.0100 ####[facility] [address] [place], [address] MCV Normal 81-99 [facility] Comment on above: Result Comment: Canc elled via OM: Order cancelled - Patient discharged Performed By: #### L 500.2500, L100.0100 ####[facility] [address] [place], [address] NEUT% Normal 47-70 [facility] Comment on above: Result Comment: Canc elled via OM: Order cancelled - Patient discharged Performed By: #### L 500.2500, L100.0100 ####[facility] [address] [place], [address] PLT Normal 150-450 [facility] Comment on above: Result Comment: Canc elled via OM: Order cancelled - Patient discharged Performed By: #### L 500.2500, L100.0100 ####[facility] [address] [place], [address] RBC Normal 4.2-5.4 [facility] Comment on above: Result Comment: Canc elled via OM: Order cancelled - Patient discharged Performed By: #### L 500.2500, L100.0100 ####[facility] [address] [place], [address] RDW CV Normal 11.6-14.6 [facility] Comment on above: Result Comment: Canc elled via OM: Order cancelled - Patient discharged Performed By: #### L 500.2500, L100.0100 ####[facility] [address] [place], [address] RDW SD Normal 35.1-43.9 [facility] Comment on above: Result Comment: Canc elled via OM: Order cancelled - Patient discharged Performed By: #### L 500.2500, L100.0100 ####[facility] [address] [place], [address] WBC Normal 4.4-11.0 [facility] Comment on above: Result Comment: Canc elled via OM: Order cancelled - Patient discharged Performed By: #### L 500.2500, L100.0100 ####[facility] [address] [place], [address] Basic Metabolic Profile (BMP )on 12-17-2024 BUN Normal 4-19 [facility] Comment on above: Result Comment: Canc elled via OM: Order cancelled - Patient discharged Performed By: #### L 100.0100, L500.2500 ####[facility] [address] [place], [address] BUN/CRE Normal 10-20 [facility] Comment on above: Result Comment: Canc elled via OM: Order cancelled - Patient discharged Performed By: #### L 100.0100, L500.2500 ####[facility] [address] [place], [address] Calcium Normal 7.6-11.0 [facility] Comment on above: Result Comment: Canc elled via OM: Order cancelled - Patient discharged Performed By: #### L 100.0100, L500.2500 ####[facility] [address] [place], [address] CL Normal 98-108 [facility] Comment on above: Result Comment: Canc elled via OM: Order cancelled - Patient discharged Performed By: #### L 100.0100, L500.2500 ####[facility] [address] [place], [address] CO2 Normal 21.0-32.0 [facility] Comment on above: Result Comment: Canc elled via OM: Order cancelled - Patient discharged Performed By: #### L 100.0100, L500.2500 ####[facility] [address] [place], [address] CREAT,SERUM Normal 0.70-1.20 [facility] Comment on above: Result Comment: Canc elled via OM: Order cancelled - Patient discharged Performed By: #### L 100.0100, L500.2500 ####[facility] [address] [place], [address] eGFR Normal >60 [facility] Comment on above: Result Comment: Canc elled via OM: Order cancelled - Patient discharged Performed By: #### L 100.0100, L500.2500 ####[facility] [address] [place], [address] GAP Normal 5-15 [facility] Comment on above: Result Comment: Canc elled via OM: Order cancelled - Patient discharged Performed By: #### L 100.0100, L500.2500 ####[facility] [address] [place], [address] GLU Normal 70-99 [facility] Comment on above: Result Comment: Canc elled via OM: Order cancelled - Patient discharged Performed By: #### L 100.0100, L500.2500 ####[facility] [address] [place], [address] Potassium Normal 3.3-5.1 [facility] Comment on above: Result Comment: Canc elled via OM: Order cancelled - Patient discharged Performed By: #### L 100.0100, L500.2500 ####[facility] [address] [place], [address] Basic Metabolic Profile (BMP) Normal 133-145 [facility] Comment on above: Result Comment: Canc elled via OM: Order cancelled - Patient discharged Performed By: #### L 100.0100, L500.2500 ####[facility] [address] [place], [address] CBC W/Diff, Automatedon 07-2 Absolute Neut Normal 2.0-7.7 [facility] Comment on above: Result Comment: Canc elled via OM: Order cancelled - Patient discharged Performed By: #### L 100.0100, L500.2500 ####[facility] [address] [place], [address] HCT Normal 37-47 [facility] Comment on above: Result Comment: Canc elled via OM: Order cancelled - Patient discharged Performed By: #### L 100.0100, L500.2500 ####[facility] [address] [place], [address] HGB Normal 12.0-15.0 [facility] Comment on above: Result Comment: Canc elled via OM: Order cancelled - Patient discharged Performed By: #### L 100.0100, L500.2500 ####[facility] [address] [place], [address] MCH Normal 27.0-32.0 [facility] Comment on above: Result Comment: Canc elled via OM: Order cancelled - Patient discharged Performed By: #### L 100.0100, L500.2500 ####[facility] [address] [place], [address] MCHC Normal 32-36 [facility] Comment on above: Result Comment: Canc elled via OM: Order cancelled - Patient discharged Performed By: #### L 100.0100, L500.2500 ####[facility] [address] [place], [address] MCV Normal 81-99 [facility] Comment on above: Result Comment: Canc elled via OM: Order cancelled - Patient discharged Performed By: #### L 100.0100, L500.2500 ####[facility] [address] [place], [address] NEUT% Normal 47-70 [facility] Comment on above: Result Comment: Canc elled via OM: Order cancelled - Patient discharged Performed By: #### L 100.0100, L500.2500 ####[facility] [address] [place], [address] PLT Normal 150-450 [facility] Comment on above: Result Comment: Canc elled via OM: Order cancelled - Patient discharged Performed By: #### L 100.0100, L500.2500 ####[facility] [address] [place], [address] RBC Normal 4.2-5.4 [facility] Comment on above: Result Comment: Canc elled via OM: Order cancelled - Patient discharged Performed By: #### L 100.0100, L500.2500 ####[facility] [address] [place], [address] RDW CV Normal 11.6-14.6 [facility] Comment on above: Result Comment: Canc elled via OM: Order cancelled - Patient discharged Performed By: #### L 100.0100, L500.2500 ####[facility] [address] [place], [address] RDW SD Normal 35.1-43.9 [facility] Comment on above: Result Comment: Canc elled via OM: Order cancelled - Patient discharged Performed By: #### L 100.0100, L500.2500 ####[facility] [address] [place], [address] WBC Normal 4.4-11.0 [facility] Comment on above: Result Comment: Canc elled via OM: Order cancelled - Patient discharged Performed By: #### L 100.0100, L500.2500 ####[facility] [address] [place], [address] Basic Metabolic Profile (BMP )on 12-16-2024 BUN Normal 4-19 [facility] Comment on above: Result Comment: Canc elled via OM: Order cancelled - Patient discharged Performed By: #### L 500.2500, L100.0100 ####[facility] [address] [place], [address] BUN/CRE Normal 10-20 [facility] Comment on above: Result Comment: Canc elled via OM: Order cancelled - Patient discharged Performed By: #### L 500.2500, L100.0100 ####[facility] [address] [place], [address] Calcium Normal 7.6-11.0 [facility] Comment on above: Result Comment: Canc elled via OM: Order cancelled - Patient discharged Performed By: #### L 500.2500, L100.0100 ####[facility] [address] [place], [address] CL Normal 98-108 [facility] Comment on above: Result Comment: Canc elled via OM: Order cancelled - Patient discharged Performed By: #### L 500.2500, L100.0100 ####[facility] [address] [place], [address] CO2 Normal 21.0-32.0 [facility] Comment on above: Result Comment: Canc elled via OM: Order cancelled - Patient discharged Performed By: #### L 500.2500, L100.0100 ####[facility] [address] [place], [address] CREAT,SERUM Normal 0.70-1.20 [facility] Comment on above: Result Comment: Canc elled via OM: Order cancelled - Patient discharged Performed By: #### L 500.2500, L100.0100 ####[facility] [address] [place], [address] eGFR Normal >60 [facility] Comment on above: Result Comment: Canc elled via OM: Order cancelled - Patient discharged Performed By: #### L 500.2500, L100.0100 ####[facility] [address] [place], [address] GAP Normal 5-15 [facility] Comment on above: Result Comment: Canc elled via OM: Order cancelled - Patient discharged Performed By: #### L 500.2500, L100.0100 ####[facility] [address] [place], [address] GLU Normal 70-99 [facility] Comment on above: Result Comment: Canc elled via OM: Order cancelled - Patient discharged Performed By: #### L 500.2500, L100.0100 ####[facility] [address] [place], [address] Potassium Normal 3.3-5.1 [facility] Comment on above: Result Comment: Canc elled via OM: Order cancelled - Patient discharged Performed By: #### L 500.2500, L100.0100 ####[facility] [address] [place], [address] Basic Metabolic Profile (BMP) Normal 133-145 [facility] Comment on above: Result Comment: Canc elled via OM: Order cancelled - Patient discharged Performed By: #### L 500.2500, L100.0100 ####[facility] [address] [place], [address] CBC W/Diff, Automatedon 07-2 Absolute Neut Normal 2.0-7.7 [facility] Comment on above: Result Comment: Canc elled via OM: Order cancelled - Patient discharged Performed By: #### L 500.2500, L100.0100 ####[facility] [address] [place], [address] HCT Normal 37-47 [facility] Comment on above: Result Comment: Canc elled via OM: Order cancelled - Patient discharged Performed By: #### L 500.2500, L100.0100 ####[facility] [address] [place], [address] HGB Normal 12.0-15.0 [facility] Comment on above: Result Comment: Canc elled via OM: Order cancelled - Patient discharged Performed By: #### L 500.2500, L100.0100 ####[facility] [address] [place], [address] MCH Normal 27.0-32.0 [facility] Comment on above: Result Comment: Canc elled via OM: Order cancelled - Patient discharged Performed By: #### L 500.2500, L100.0100 ####[facility] [address] [place], [address] MCHC Normal 32-36 [facility] Comment on above: Result Comment: Canc elled via OM: Order cancelled - Patient discharged Performed By: #### L 500.2500, L100.0100 ####[facility] [address] [place], [address] MCV Normal 81-99 [facility] Comment on above: Result Comment: Canc elled via OM: Order cancelled - Patient discharged Performed By: #### L 500.2500, L100.0100 ####[facility] [address] [place], [address] NEUT% Normal 47-70 [facility] Comment on above: Result Comment: Canc elled via OM: Order cancelled - Patient discharged Performed By: #### L 500.2500, L100.0100 ####[facility] [address] [place], [address] PLT Normal 150-450 [facility] Comment on above: Result Comment: Canc elled via OM: Order cancelled - Patient discharged Performed By: #### L 500.2500, L100.0100 ####[facility] [address] [place], [address] RBC Normal 4.2-5.4 [facility] Comment on above: Result Comment: Canc elled via OM: Order cancelled - Patient discharged Performed By: #### L 500.2500, L100.0100 ####[facility] [address] [place], [address] RDW CV Normal 11.6-14.6 [facility] Comment on above: Result Comment: Canc elled via OM: Order cancelled - Patient discharged Performed By: #### L 500.2500, L100.0100 ####[facility] [address] [place], [address] RDW SD Normal 35.1-43.9 [facility] Comment on above: Result Comment: Canc elled via OM: Order cancelled - Patient discharged Performed By: #### L 500.2500, L100.0100 ####[facility] [address] [place], [address] WBC Normal 4.4-11.0 [facility] Comment on above: Result Comment: Canc elled via OM: Order cancelled - Patient discharged Performed By: #### L 500.2500, L100.0100 ####[facility] [address] [place], [address] Basic Metabolic Profile (BMP )on 12-15-2024 BUN Normal 4-19 [facility] Comment on above: Result Comment: Canc elled via OM: Order cancelled - Patient discharged Performed By: #### L 500.2500, L100.0100 ####[facility] [address] [place], [address] BUN/CRE Normal 10-20 [facility] Comment on above: Result Comment: Canc elled via OM: Order cancelled - Patient discharged Performed By: #### L 500.2500, L100.0100 ####[facility] [address] [place], [address] Calcium Normal 7.6-11.0 [facility] Comment on above: Result Comment: Canc elled via OM: Order cancelled - Patient discharged Performed By: #### L 500.2500, L100.0100 ####[facility] [address] [place], [address] CL Normal 98-108 [facility] Comment on above: Result Comment: Canc elled via OM: Order cancelled - Patient discharged Performed By: #### L 500.2500, L100.0100 ####[facility] [address] [place], [address] CO2 Normal 21.0-32.0 [facility] Comment on above: Result Comment: Canc elled via OM: Order cancelled - Patient discharged Performed By: #### L 500.2500, L100.0100 ####[facility] [address] [place], [address] CREAT,SERUM Normal 0.70-1.20 [facility] Comment on above: Result Comment: Canc elled via OM: Order cancelled - Patient discharged Performed By: #### L 500.2500, L100.0100 ####[facility] [address] [place], [address] eGFR Normal >60 [facility] Comment on above: Result Comment: Canc elled via OM: Order cancelled - Patient discharged Performed By: #### L 500.2500, L100.0100 ####[facility] [address] [address] [place], [address] GAP Normal 5-15 [facility] Comment on above: Result Comment: Canc elled via OM: Order cancelled - Patient discharged Performed By: #### L 500.2500, L100.0100 ####[facility] [address] [place], [address] GLU Normal 70-99 [facility] Comment on above: Result Comment: Canc elled via OM: Order cancelled - Patient discharged Performed By: #### L 500.2500, L100.0100 ####[facility] [address] [place], [address] Potassium Normal 3.3-5.1 [facility] Comment on above: Result Comment: Canc elled via OM: Order cancelled - Patient discharged Performed By: #### L 500.2500, L100.0100 ####[facility] [address] [place], [address] Basic Metabolic Profile (BMP) Normal 133-145 [facility] Comment on above: Result Comment: Canc elled via OM: Order cancelled - Patient discharged Performed By: #### L 500.2500, L100.0100 ####[facility] [address] [place], [address] CBC W/Diff, Automatedon 07-2 Absolute Neut Normal 2.0-7.7 [facility] Comment on above: Result Comment: Canc elled via OM: Order cancelled - Patient discharged Performed By: #### L 500.2500, L100.0100 ####[facility] [address] [place], [address] HCT Normal 37-47 [facility] Comment on above: Result Comment: Canc elled via OM: Order cancelled - Patient discharged Performed By: #### L 500.2500, L100.0100 ####[facility] [address] [place], [address] HGB Normal 12.0-15.0 [facility] Comment on above: Result Comment: Canc elled via OM: Order cancelled - Patient discharged Performed By: #### L 500.2500, L100.0100 ####[facility] [address] [place], [address] MCH Normal 27.0-32.0 [facility] Comment on above: Result Comment: Canc elled via OM: Order cancelled - Patient discharged Performed By: #### L 500.2500, L100.0100 ####[facility] [address] [place], [address] MCHC Normal 32-36 [facility] Comment on above: Result Comment: Canc elled via OM: Order cancelled - Patient discharged Performed By: #### L 500.2500, L100.0100 ####[facility] [address] [place], [address] MCV Normal 81-99 [facility] Comment on above: Result Comment: Canc elled via OM: Order cancelled - Patient discharged Performed By: #### L 500.2500, L100.0100 ####[facility] [address] [place], [address] NEUT% Normal 47-70 [facility] Comment on above: Result Comment: Canc elled via OM: Order cancelled - Patient discharged Performed By: #### L 500.2500, L100.0100 ####[facility] [address] [place], [address] PLT Normal 150-450 [facility] Comment on above: Result Comment: Canc elled via OM: Order cancelled - Patient discharged Performed By: #### L 500.2500, L100.0100 ####[facility] [address] [place], [address] RBC Normal 4.2-5.4 [facility] Comment on above: Result Comment: Canc elled via OM: Order cancelled - Patient discharged Performed By: #### L 500.2500, L100.0100 ####[facility] [address] [place], [address] RDW CV Normal 11.6-14.6 [facility] Comment on above: Result Comment: Canc elled via OM: Order cancelled - Patient discharged Performed By: #### L 500.2500, L100.0100 ####[facility] [address] [place], [address] RDW SD Normal 35.1-43.9 [facility] Comment on above: Result Comment: Canc elled via OM: Order cancelled - Patient discharged Performed By: #### L 500.2500, L100.0100 ####[facility] [address] [place], [address] WBC Normal 4.4-11.0 [facility] Comment on above: Result Comment: Canc elled via OM: Order cancelled - Patient discharged Performed By: #### L 500.2500, L100.0100 ####[facility] [address] [place], [address] Absolute lymphocyte countOrd ered By: Tatum Escobedo on 12-14-2024 Lymphocytes Auto (Unsp spec) [#/Vol] 1.39 10*3/uL 0.83-4.51 [facility] Absolute neutrophil countOrd ered By: Tatum Escobedo on 12-14-2024 Neutrophils (Bld) [#/Vol] 4.0 10*3/uL 2.0-7.7 [facility] Anion gap in Serum or Plasma Ordered By: Tatum Escobedo on 12-14-2024 Anion gap [Moles/Vol] 16 mmol/L High 5-15 [facility] Automated lymphocyte count a s percentage of total leukocytesOrdered By: Tatum Escobedo on 12-14-2024 Lymphocytes/100 WBC Auto (Unsp spec) 22.7 % 19-41 [facility] BUN/creatinine ratioOrdered By: Tatum Escobedo on 12-14-2024 Urea nitrogen/Creatinine [Mass ratio] 21.2 mg/mg High 10-20 [facility] Basic Metabolic Profile (BMP )on 12-14-2024 BUN/CRE 21.2 RATIO High 10-20 [facility] Comment on above: Performed By: #### L 500.2500, L100.0100 ####[facility] [address] [place], [address] Calcium [Mass/Vol] 8.8 mg/dL Normal 7.6-11.0 [facility] Comment on above: Performed By: #### L 500.2500, L100.0100 ####[facility] [address] [place] [place], [address] Chloride [Moles/Vol] 98 mmol/L Normal 98-108 [facility] Comment on above: Performed By: #### L 500.2500, L100.0100 ####[facility] [address] [place] [place], [address] CO2 [Moles/Vol] 22.9 mmol/L Normal 21.0-32.0 [facility] Comment on above: Performed By: #### L 500.2500, L100.0100 ####[facility] [address] [place], [address] Creatinine [Mass/Vol] 0.94 mg/dL Normal 0.70-1.20 [facility] Comment on above: Performed By: #### L 500.2500, L100.0100 ####[facility] [address] [place], [address] ECRCL 65.11 ml/min Normal 50-250 [facility] Comment on above: Performed By: #### L 500.2500, L100.0100 ####[facility] [address] [place] [place], [address] GAP 16 High 5-15 [facility] Comment on above: Performed By: #### L 500.2500, L100.0100 ####[facility] [address] [place] [place], [address] GFR/1.73 sq M.predicted among non-blacks MDRD (S/P/Bld) [Vol rate/Area] 67 mL/min/{1.73_m2} Normal >60 [facility] Comment on above: Result Comment: mL/m in/1.73m2 CKD-EPI Creatinine Equation (2020) Performed By: #### L 500.2500, L100.0100 ####[facility] [address] [place], [address] Glucose [Mass/Vol] 94 mg/dL Normal 70-99 [facility] Comment on above: Performed By: #### L 500.2500, L100.0100 ####[facility] [address] [place], [address] Potassium [Moles/Vol] 4.0 mmol/L Normal 3.3-5.1 [facility] Comment on above: Performed By: #### L 500.2500, L100.0100 ####[facility] [address] [place], [address] Sodium [Moles/Vol] 136 mmol/L Normal 133-145 [facility] Comment on above: Performed By: #### L 500.2500, L100.0100 ####[facility] [address] [place], [address] Urea nitrogen [Mass/Vol] 20 mg/dL High 4-19 [facility] Comment on above: Performed By: #### L 500.2500, L100.0100 ####[facility] [address] [place], [address] Basophil percentageOrdered B y: Tatum Escobedo on 12-14-2024 Basophils/100 WBC (Bld) 0.7 % 0-1 [facility] Bedside Glucoseon 12-14-2024 FINGERSTICK GLU 91 mg/dL Normal 74-106 [facility] Comment on above: Result Comment: CAESAR BENITEZ OF PATIENT CARE PER NURSING PROTOCOL Performed By: #### L 501.080 ####[facility] [address] [place], [place], [address] Blood manual differential co mment interpretation (narrative result)Ordered By: Tatum Escobedo on 12-14-2024 Manual differential comment Mathieu (Bld) [Interp] SCANNED [facility] CBC W/Diff, Automatedon 11-20 Anisocytosis Ql (Bld) 2+ [facility] Comment on above: Performed By: #### L 500.2500, L100.0100 ####[facility] [address] [place], [address] SMEAR COMMENT SCANNED Normal [facility] Comment on above: Performed By: #### L 500.2500, L100.0100 ####[facility] [address] [place], [address] Carbon dioxide, total [Moles /volume] in Central venous bloodOrdered By: Tatum Escobedo on 12-14-2024 CO2 [Moles/Vol] 22.9 mmol/L 21.0-32.0 [facility] Chest PA and Lateralon 12-14 Chest PA and Lateral Normal [facility] Chloride assayOrdered By: Sonia Escobedo on 12-14-2024 Chloride [Moles/Vol] 98 mmol/L 98-108 [facility] Discharge Instructionon 11-20 Discharge Instruction Normal [facility] Eosinophil percentageOrdered By: Tatum Escobedo on 12-14-2024 Eosinophils/100 WBC (Bld) 1.3 % 0-5 [facility] Erythrocyte distribution wid th ratioOrdered By: Tatum Escobedo on 12-14-2024 Erythrocyte distribution width (RBC) [Ratio] 22.5 % High 11.6-14.6 [facility] Erythrocyte distribution wid th standard deviationOrdered By: Tatum Escobedo on 12-14-2024 Erythrocyte distribution width (RBC) [Ratio] 56.0 fl High 35.1-43.9 [facility] Glomerular filtration rate ( GFR) estimation/1.73 sq m using serum, plasma, or whole bOrdered By: Tatum Escobedo on 12-14-2024 GFR/1.73 sq M.predicted among non-blacks MDRD (S/P/Bld) [Vol rate/Area] 67 mL/min/{1.73_m2} >60 [facility] Comment on above: mL/min/1.73m2 CKD-EP I Creatinine Equation (2020) [facility] deOrdered By: Tatum Escobedo on 12-14-2024 Glucose [Mass/Vol] 91 mg/dL 74-106 [facility] Comment on above: MANAGEMENT OF PATIEN T CARE PER NURSING PROTOCOL Hematocrit Auto (Bld) [Volum e fraction]Ordered By: Tatum Escobedo on 12-14-2024 Hematocrit (Bld) [Volume fraction] 36.4 % Low 37-47 [facility] Hemoglobin measurementOrdere d By: Tatum Escobedo on 12-14-2024 Hemoglobin (Bld) [Mass/Vol] 10.4 g/dL Low 12.0-15.0 [facility] Immature granulocytes/100 WB C Auto (Bld)Ordered By: Tatum Escobedo on 12-14-2024 Immature granulocytes/100 WBC (Bld) 0.300 % 0.0-0.9 [facility] Comment on above: IG% - Immature Granu locytes (promyelocytes, myelocytes and metamyelocytes) > 1% indicates that a LEFT SHIFT is Present. Laboratory - Hematology and Cell countsOrdered By: Tatum Escobedo on 12-14-2024 Anisocytosis Ql (Bld) 2+ [facility] MCV (mean corpuscular volume ) determinationOrdered By: Tatum Escobedo 12-14-2024 MCV (RBC) [Entitic vol] 71.7 fL Low 81-99 [facility] Mean corpuscular hemoglobin (MCH) determinationOrdered By: Tatum Escobedo 12-14-2024 MCH (RBC) [Entitic mass] 20.5 pg Low 27.0-32.0 [facility] Mean corpuscular hemoglobin concentration (MCHC) determinationOrdered By: Tatum Escobedo on 12-14-2024 MCHC (RBC) [Mass/Vol] 28.6 g/dL Low 32-36 [facility] Mean platelet volume determi nationOrdered By: Tatum Escobedo on 12-14-2024 Platelet mean volume (Bld) [Entitic vol] 9.9 fL 6.2-12.0 [facility] Monocyte percentageOrdered B y: Tatum Escobedo on 12-14-2024 Monocytes/100 WBC (Bld) 9.8 % 0-10 [facility] Neutrophil percentageOrdered By: Tatum Escobedo on 12-14-2024 Neutrophils/100 WBC (Bld) 65.2 % 47-70 [facility] No Panel InformationOrdered By: Tatum Escobedo on 12-14-2024 2+ [facility] Nucleated red blood cell per centageOrdered By: Tatum Escobeod on 12-14-2024 Nucleated RBC/100 WBC (Bld) [Ratio] 0 % 0-5 [facility] Platelet countOrdered By: Na sonia Escobedo on 12-14-2024 Platelets (Bld) [#/Vol] 231 10*3/uL 150-450 [facility] Potassium measurement (mass/ volume)Ordered By: Tatum Escobedo on 12-14-2024 Potassium (Unsp spec) [Mass/Vol] 4.0 mmol/L 3.3-5.1 [facility] RBC Auto (Bld) [#/Vol]Ordere d By: Tatum Escobedo on 12-14-2024 RBC (Bld) [#/Vol] 5.08 10*6/uL 4.2-5.4 [facility] Serum creatinine measurement (mass/volume)Ordered By: Tatum Escobedo on 12-14-2024 Creatinine [Mass/Vol] 0.94 mg/dL 0.70-1.20 [facility] Serum glucose measurement (m ass/volume)Ordered By: Tatum Escobedo on 12-14-2024 Glucose [Mass/Vol] 94 mg/dL 70-99 [facility] Serum or plasma calcium lakshmi urement (mass/volume)Ordered By: Tatum Escobedo on 12-14-2024 Calcium [Mass/Vol] 8.8 mg/dL 7.6-11.0 [facility] Serum or plasma urea nitroge n measurement (mass/volume)Ordered By: Tatum Escobedo on 12-14-2024 Urea nitrogen [Mass/Vol] 20 mg/dL High 4-19 [facility] Sodium levelOrdered By: Tatumlennie Escobedo on 12-14-2024 Sodium [Moles/Vol] 136 mmol/L 133-145 [facility] White blood cell (WBC) count Ordered By: Tatum Gregg on 12-14-2024 WBC (Bld) [#/Vol] 6.1 10*3/uL 4.4-11.0 [facility] Basic Metabolic Profile (BMP )on 12-13-2024 BUN/CRE 24.9 RATIO High 10-20 [facility] Comment on above: Performed By: #### L 500.2500, L100.0100 ####[facility] [address] [place], [address] Calcium [Mass/Vol] 8.9 mg/dL Normal 7.6-11.0 [facility] Comment on above: Performed By: #### L 500.2500, L100.0100 ####[facility] [address] [place], [address] Chloride [Moles/Vol] 101 mmol/L Normal 98-108 [facility] Comment on above: Performed By: #### L 500.2500, L100.0100 ####[facility] [address] [place], [address] CO2 [Moles/Vol] 27.8 mmol/L Normal 21.0-32.0 [facility] Comment on above: Performed By: #### L 500.2500, L100.0100 ####[facility] [address] [place], [address] Creatinine [Mass/Vol] 0.91 mg/dL Normal 0.70-1.20 [facility] Comment on above: Performed By: #### L 500.2500, L100.0100 ####[facility] [address] [place], [address] ECRCL 68.13 ml/min Normal 50-250 [facility] Comment on above: Performed By: #### L 500.2500, L100.0100 ####[facility] [address] [place], [address] GAP 12 Normal 5-15 [facility] Comment on above: Performed By: #### L 500.2500, L100.0100 ####[facility] [address] [place], [address] GFR/1.73 sq M.predicted among non-blacks MDRD (S/P/Bld) [Vol rate/Area] 70 mL/min/{1.73_m2} Normal >60 [facility] Comment on above: Result Comment: mL/m in/1.73m2 CKD-EPI Creatinine Equation (2020) Performed By: #### L 500.2500, L100.0100 ####[facility] [address] [place], [address] Glucose [Mass/Vol] 99 mg/dL Normal 70-99 [facility] Comment on above: Performed By: #### L 500.2500, L100.0100 ####[facility] [address] [place], [address] Potassium [Moles/Vol] 3.7 mmol/L Normal 3.3-5.1 [facility] Comment on above: Performed By: #### L 500.2500, L100.0100 ####[facility] [address] [place], [address] Sodium [Moles/Vol] 141 mmol/L Normal 133-145 [facility] Comment on above: Performed By: #### L 500.2500, L100.0100 ####[facility] [address] [place], [address] Urea nitrogen [Mass/Vol] 23 mg/dL High 4-19 [facility] Comment on above: Performed By: #### L 500.2500, L100.0100 ####[facility] [address] [place], [address] Bedside Glucoseon 12-13-2024 FINGERSTICK GLU 132 mg/dL High 74-106 [facility] Comment on above: Result Comment: CAESAR GEMENT OF PATIENT CARE PER NURSING PROTOCOL Performed By: #### L 501.080 ####[facility] [address] [place], [address] FINGERSTICK GLU 79 mg/dL Normal 74-106 [facility] Comment on above: Result Comment: CAESAR GEMENT OF PATIENT CARE PER NURSING PROTOCOL Performed By: #### L 501.080 ####[facility] [address] [place], [address] Bilirubin Test strip Ql (U)O rdered By: Tatum Escobedo on 12-13-2024 Bilirubin Ql (U) Negative Negative [facility] CBC W/Diff, Automatedon 11-20 Anisocytosis Ql (Bld) 1+ [facility] Comment on above: Performed By: #### L 500.2500, L100.0100 ####[facility] [address] [place], [address] PLT EST A Normal ADEQ [facility] Comment on above: Performed By: #### L 500.2500, L100.0100 ####[facility] [address] [place], [address] CVS/EX.DEFIBPRon 12-13-2024 CVS/EX.DEFIBPR Normal [facility] Chest PA and Lateralon 12-13 Chest PA and Lateral Normal [facility] Consultation - Cardiologyon 12-13-2024 Consultation - Cardiology Normal [facility] International normalized rat io (INR) calculationOrdered By: Tatum Escobedo on 12-13-2024 INR Coag (Bld) [Relative time] 2.3 {INR} [facility] Ketones Test strip Ql (U)Ord ered By: Tatum Escobedo on 12-13-2024 Ketones Ql (U) Negative Negative [facility] Microscopic analysis of urin e for red blood cells (RBC)Ordered By: Tatum Escobedo on 12-13-2024 Microscopic analysis of urine for red blood cells (RBC) 0-5 SEEN /hpf 0-5 [facility] Mucus LM Ql (Urine sed)Order ed By: Tatum Escobedo on 12-13-2024 Mucus Ql (Urine sed) 0 SEEN /hpf [facility] Nitrite Test strip Ql (U)Ord ered By: Tatum Escobedo on 12-13-2024 Nitrite Ql (U) Negative Negative [facility] Platelet estimateOrdered By: Tatum Escobedo on 12-13-2024 Platelets LM Ql (Bld) A ADEQ [facility] Protein Test strip Ql (U)Ord ered By: Tatum Escobedo on 12-13-2024 Protein Ql (U) Negative Negative [facility] Prothrombin Time w/INRon INR Coag (PPP) [Relative time] 2.3 {INR} Normal [facility] Comment on above: Performed By: #### L 300.3900 ####[facility] [address] [place], [address] PT Coag (PPP) [Time] 26.1 s High 11.7-14.9 [facility] Comment on above: Performed By: #### L 300.3900 ####[facility] [address] [place], [address] Prothrombin timeOrdered By: Tatum Escobedo on 12-13-2024 PT Coag (PPP) [Time] 26.1 s High 11.7-14.9 [facility] Squamous epithelial cells de tection in urine sediment by light microscopyOrdered By: Tatum Escobedo on 12-13-2024 Epithelial cells.squamous LM Ql (Urine sed) 0-5 SEEN /hpf 5-10 [facility] Urinalysis, Completeon 12-13 EPI,SQUAMOUS 0-5 SEEN Normal 5-10 [facility] Comment on above: Order Comment: Urine , Random Performed By: #### L 400.0001 ####[facility] [address] [place], [address] RBC 0-5 SEEN Normal 0-5 [facility] Comment on above: Order Comment: Urine , Random Performed By: #### L 400.0001 ####[facility] [address] [place], [address] WBC 0-5 SEEN Normal 0-5 [facility] Comment on above: Order Comment: Urine , Random Performed By: #### L 400.0001 ####[facility] [address] [place], [address] BACTERIA 0 SEEN Normal None Seen [facility] Comment on above: Order Comment: Urine , Random Performed By: #### L 400.0001 ####[facility] [address] [place], [address] Mucus Ql (Urine sed) 0 SEEN Normal [facility] Comment on above: Order Comment: Urine , Random Performed By: #### L 400.0001 ####[facility] [address] [place], [place], [address] Urine clarityOrdered By: Starla Escobedo on 12-13-2024 Clarity (U) Clear Clear [facility] Urine color determinationOrd ered By: Tatum Escobedo on 12-13-2024 Color (U) Straw Yellow [facility] Urine glucose detectionOrder ed By: Tatum Escobedo on 12-13-2024 Glucose Ql (U) Normal mg/dl Normal [facility] Urine leukocyte esterase det ection by dipstickOrdered By: Tatum Escobedo on 12-13-2024 Leukocyte esterase Test strip Ql (U) Negative Negative [facility] Urine pHOrdered By: Tatum Branch am on 12-13-2024 pH (U) 7.0 [pH] 5.0 - 8.0 [facility] Urine sediment bacteria coun t by microscopy (number/high power field)Ordered By: Tatum Escobedo on 12-13-2024 Bacteria LM.HPF (Urine sed) [#/Area] 0 /[HPF] None Seen [facility] Urine specific gravity measu rementOrdered By: Tatum Sarinajavid on 12-13-2024 Specific gravity (U) [Rel density] 1.010 1.002-1.030 [facility] Urine urobilinogen measureme ntOrdered By: Tatum Branchjavid on 12-13-2024 Urobilinogen Ql (U) Normal mg/dl Normal [facility] White blood cell countOrdere d By: Tatum Branchjavid on 12-13-2024 White blood cell count 0-5 SEEN /hpf 0-5 [facility] Basic Metabolic Profile (BMP )on 12-12-2024 BUN/CRE 21.3 RATIO High 10-20 [facility] Comment on above: Performed By: #### L 500.2500, L100.0100 ####[facility] [address] [place], [address] Calcium [Mass/Vol] 8.8 mg/dL Normal 7.6-11.0 [facility] Comment on above: Performed By: #### L 500.2500, L100.0100 ####[facility] [address] [place], [address] Chloride [Moles/Vol] 100 mmol/L Normal 98-108 [facility] Comment on above: Performed By: #### L 500.2500, L100.0100 ####[facility] [address] [place], [address] CO2 [Moles/Vol] 25.8 mmol/L Normal 21.0-32.0 [facility] Comment on above: Performed By: #### L 500.2500, L100.0100 ####[facility] [address] [place], [address] Creatinine [Mass/Vol] 0.99 mg/dL Normal 0.70-1.20 [facility] Comment on above: Performed By: #### L 500.2500, L100.0100 ####[facility] [address] [place], [address] ECRCL 62.76 ml/min Normal 50-250 [facility] Comment on above: Performed By: #### L 500.2500, L100.0100 ####[facility] [address] [place], [address] GAP 12 Normal 5-15 [facility] Comment on above: Performed By: #### L 500.2500, L100.0100 ####[facility] [address] [place], [address] GFR/1.73 sq M.predicted among non-blacks MDRD (S/P/Bld) [Vol rate/Area] 63 mL/min/{1.73_m2} Normal >60 [facility] Comment on above: Result Comment: mL/m in/1.73m2 CKD-EPI Creatinine Equation (2020) Performed By: #### L 500.2500, L100.0100 ####[facility] [address] [place], [address] Glucose [Mass/Vol] 113 mg/dL High 70-99 [facility] Comment on above: Performed By: #### L 500.2500, L100.0100 ####[facility] [address] [place], [address] Potassium [Moles/Vol] 3.7 mmol/L Normal 3.3-5.1 [facility] Comment on above: Performed By: #### L 500.2500, L100.0100 ####[facility] [address] [place], [address] Sodium [Moles/Vol] 138 mmol/L Normal 133-145 [facility] Comment on above: Performed By: #### L 500.2500, L100.0100 ####[facility] [address] [place], [address] Urea nitrogen [Mass/Vol] 21 mg/dL High 4-19 [facility] Comment on above: Performed By: #### L 500.2500, L100.0100 ####[facility] [address] [place], [address] Bedside Glucoseon 12-12-2024 FINGERSTICK GLU 131 mg/dL High 74-106 [facility] Comment on above: Result Comment: CAESAR GEMENT OF PATIENT CARE PER NURSING PROTOCOL Performed By: #### L 501.080 ####[facility] [address] [place], [address] FINGERSTICK GLU 120 mg/dL High 74-106 [facility] Comment on above: Result Comment: CAESAR GEMENT OF PATIENT CARE PER NURSING PROTOCOL Performed By: #### L 501.080 ####[facility] [address] [place], [address] Blood polychromasia detectio n by light microscopyOrdered By: Tatum Escobedo on 12-12-2024 Polychromasia LM Ql (Bld) 1+ [facility] CBC W/Diff, Automatedon 11-20 Anisocytosis Ql (Bld) 2+ [facility] Comment on above: Performed By: #### L 500.2500, L100.0100 ####[facility] [address] [place], [address] MACROCYTOSIS 1+ Normal [facility] Comment on above: Performed By: #### L 500.2500, L100.0100 ####[facility] [address] [place], [address] OVALOCYTE 1+ Normal [facility] Comment on above: Performed By: #### L 500.2500, L100.0100 ####[facility] [address] [place], [address] PLT EST A Normal ADEQ [facility] Comment on above: Performed By: #### L 500.2500, L100.0100 ####[facility] [address] [place], [address] POLYCHROMASIA 1+ Normal [facility] Comment on above: Performed By: #### L 500.2500, L100.0100 ####[facility] [address] [place], [address] Electrocardiogram reportOrde red By: Param Dominguez on 12-12-2024 EKG study [facility] Work Phone: Knee 4 or More Viewson 12-12 Knee 4 or More Views Normal [facility] Macrocytes detectionOrdered By: Tatumlennie Escobedo on 12-12-2024 Macrocytes Ql (Bld) 1+ [facility] Ovalocyte detectionOrdered B y: Tatumlennie Escobedo on 12-12-2024 Ovalocytes LM Ql (Bld) 1+ [facility] Prothrombin Time w/INRon INR Coag (PPP) [Relative time] 1.8 {INR} Normal [facility] Comment on above: Performed By: #### L 300.3900 ####[facility] [address] [place], [address] PT Coag (PPP) [Time] 21.4 s High 11.7-14.9 [facility] Comment on above: Performed By: #### L 300.3900 ####[facility] [address] [place], [address] Bedside Glucoseon 12-11-2024 FINGERSTICK GLU 99 mg/dL Normal 74-106 [facility] Comment on above: Result Comment: CAESAR GEMENT OF PATIENT CARE PER NURSING PROTOCOL Performed By: #### L 501.080 ####[facility] [address] [place], [address] FINGERSTICK GLU 112 mg/dL High 74-106 [facility] Comment on above: Result Comment: CAESAR GEMENT OF PATIENT CARE PER NURSING PROTOCOL Performed By: #### L 501.080 ####[facility] [address] [place], [address] FINGERSTICK GLU 248 mg/dL High 74-106 [facility] Comment on above: Result Comment: CAESAR GEMENT OF PATIENT CARE PER NURSING PROTOCOL Performed By: #### L 501.080 ####[facility] [address] [place], [address] FINGERSTICK GLU 115 mg/dL High 74-106 [facility] Comment on above: Result Comment: CAESAR GEMENT OF PATIENT CARE PER NURSING PROTOCOL Performed By: #### L 501.080 ####[facility] [address] [place], [address] FINGERSTICK GLU 114 mg/dL High 74-106 [facility] Comment on above: Result Comment: CAESAR GEMENT OF PATIENT CARE PER NURSING PROTOCOL Performed By: #### L 501.080 ####[facility] [address] [place], [address] Bilirubin, totalOrdered By: Samantha Gary on 12-11-2024 Bilirubin [Mass/Vol] 0.92 mg/dL 0.00-1.30 [facility] CBC W/Diff, Automatedon 11-20 SIM CELLS RARE Normal [facility] Comment on above: Performed By: #### L 500.4100, L501.9520, L100.0100, L300.3900, L500.4050 ####[facility] [address] [place], [address] Anisocytosis Ql (Bld) 2+ [facility] Comment on above: Performed By: #### L 500.4100, L501.9520, L100.0100, L300.3900, L500.4050 ####[facility] [address] [place], [address] MICROCYTIC 2+ Normal [facility] Comment on above: Performed By: #### L 500.4100, L501.9520, L100.0100, L300.3900, L500.4050 ####[facility] [address] [place], [address] OVALOCYTE RARE Normal [facility] Comment on above: Performed By: #### L 500.4100, L501.9520, L100.0100, L300.3900, L500.4050 ####[facility] [address] [place], [address] SMEAR COMMENT SCANNED Normal [facility] Comment on above: Performed By: #### L 500.4100, L501.9520, L100.0100, L300.3900, L500.4050 ####[facility] [address] [place], [address] Calculated very low density lipoprotein (VLDL) cholesterol measurementOrdered By: Samantha Gary on 12-11-2024 Calculated very low density lipoprotein (VLDL) cholesterol measurement 14 mg/dL 5-40 [facility] Comprehensive Metabolic Prof ilon 12-11-2024 Albumin [Mass/Vol] 3.3 g/dL Low 3.4-4.8 [facility] Comment on above: Performed By: #### L 500.4100, L501.9520, L100.0100, L300.3900, L500.4050 ####[facility] [address] [place], [address] Albumin/Globulin [Mass ratio] 1.1 {ratio} Normal 0.9-2.4 [facility] Comment on above: Performed By: #### L 500.4100, L501.9520, L100.0100, L300.3900, L500.4050 ####[facility] [address] [place], [address] ALK PHOS 82 U/L Normal 35-104 [facility] Comment on above: Performed By: #### L 500.4100, L501.9520, L100.0100, L300.3900, L500.4050 ####[facility] [address] [place], [address] ALT [Catalytic activity/Vol] 17 U/L Normal <=34 [facility] Comment on above: Performed By: #### L 500.4100, L501.9520, L100.0100, L300.3900, L500.4050 ####[facility] [address] [place], [address] AST [Catalytic activity/Vol] 23 U/L Normal <=31 [facility] Comment on above: Performed By: #### L 500.4100, L501.9520, L100.0100, L300.3900, L500.4050 ####[facility] [address] [place], [address] Bilirubin [Mass/Vol] 0.92 mg/dL Normal 0.00-1.30 [facility] Comment on above: Performed By: #### L 500.4100, L501.9520, L100.0100, L300.3900, L500.4050 ####[facility] [address] [place], [address] BUN/CRE 18.6 RATIO Normal 10-20 [facility] Comment on above: Performed By: #### L 500.4100, L501.9520, L100.0100, L300.3900, L500.4050 ####[facility] [address] [place], [address] Calcium [Mass/Vol] 8.6 mg/dL Normal 7.6-11.0 [facility] Comment on above: Performed By: #### L 500.4100, L501.9520, L100.0100, L300.3900, L500.4050 ####[facility] [address] [place], [address] Chloride [Moles/Vol] 103 mmol/L Normal 98-108 [facility] Comment on above: Performed By: #### L 500.4100, L501.9520, L100.0100, L300.3900, L500.4050 ####[facility] [address] [place], [address] CO2 [Moles/Vol] 23.4 mmol/L Normal 21.0-32.0 [facility] Comment on above: Performed By: #### L 500.4100, L501.9520, L100.0100, L300.3900, L500.4050 ####[facility] [address] [place], [address] Creatinine [Mass/Vol] 0.95 mg/dL Normal 0.70-1.20 [facility] Comment on above: Performed By: #### L 500.4100, L501.9520, L100.0100, L300.3900, L500.4050 ####[facility] [address] [place], [address] ECRCL 65.70 ml/min Normal 50-250 [facility] Comment on above: Performed By: #### L 500.4100, L501.9520, L100.0100, L300.3900, L500.4050 ####[facility] [address] [place], [address] GAP 12 Normal 5-15 [facility] Comment on above: Performed By: #### L 500.4100, L501.9520, L100.0100, L300.3900, L500.4050 ####[facility] [address] [place], [address] GFR/1.73 sq M.predicted among non-blacks MDRD (S/P/Bld) [Vol rate/Area] 66 mL/min/{1.73_m2} Normal >60 [facility] Comment on above: Result Comment: mL/m in/1.73m2 CKD-EPI Creatinine Equation (2020) Performed By: #### L 500.4100, L501.9520, L100.0100, L300.3900, L500.4050 ####[facility] [address] [place], [address] Globulin (S) [Mass/Vol] 3.1 g/dL Normal 2.2-4.2 [facility] Comment on above: Performed By: #### L 500.4100, L501.9520, L100.0100, L300.3900, L500.4050 ####[facility] [address] [place], [address] Glucose [Mass/Vol] 121 mg/dL High 70-99 [facility] Comment on above: Performed By: #### L 500.4100, L501.9520, L100.0100, L300.3900, L500.4050 ####[facility] [address] [place], [address] Potassium [Moles/Vol] 3.9 mmol/L Normal 3.3-5.1 [facility] Comment on above: Performed By: #### L 500.4100, L501.9520, L100.0100, L300.3900, L500.4050 ####[facility] [address] [place], [address] Sodium [Moles/Vol] 139 mmol/L Normal 133-145 [facility] Comment on above: Performed By: #### L 500.4100, L501.9520, L100.0100, L300.3900, L500.4050 ####[facility] [address] [place], [address] T PROT 6.4 g/dL Normal 5.9-8.4 [facility] Comment on above: Performed By: #### L 500.4100, L501.9520, L100.0100, L300.3900, L500.4050 ####[facility] [address] [place], [address] Urea nitrogen [Mass/Vol] 18 mg/dL Normal 4-19 [facility] Comment on above: Performed By: #### L 500.4100, L501.9520, L100.0100, L300.3900, L500.4050 ####[facility] [address] [place], [address] Crenated erythrocyte detecti on by light microscopyOrdered By: Samantha Gary on 12-11-2024 [place] cells LM Ql (Bld) RARE [facility] LDL calc ser/plasOrdered By: Samantha Gary on 12-11-2024 Cholesterol in LDL [Mass/Vol] 50 mg/dL [facility] Comment on above: Zcqojiobkw=875-680 m g/dL & Higher Wkbv=065 mg/dL or greater Laboratory - Chemistry and C hemistry - challengeOrdered By: Samantha Gary on 12-11-2024 AST [Catalytic activity/Vol] 23 U/L <32 [facility] Lipid Profileon 12-11-2024 CHOL:HDL 4.02 Normal [facility] Comment on above: Performed By: #### L 500.4100, L501.9520, L100.0100, L300.3900, L500.4050 ####[facility] [address] [place], [address] Cholesterol [Mass/Vol] 84 mg/dL Normal <=200 [facility] Comment on above: Result Comment: Chol esterol level, Desirable <200 mg/dLBorderline high cholesterol 200-239 mg/dLHigh cholesterol >=240 mg/dLRecommendations of the NCEP Adult Treatment Panel for thefollowing risk-cutoff thresholds for the [place] [facility]. Performed By: #### L 500.4100, L501.9520, L100.0100, L300.3900, L500.4050 ####[facility] [address] [place], [address] Cholesterol in HDL [Mass/Vol] 21 mg/dL Low [facility] Comment on above: Result Comment: Phylicia onal Cholesterol Education Program (NCEP) guidelines:<40 mg/dL: Low HDL-cholesterol (major risk factor for CHD)>= 60 mg/dL: High HDL-cholesterol (negative risk factor forCHD)HDL-cholesterol is affected by a number of factors, e.g.smoking, exercise, hormones, sex and age. Performed By: #### L 500.4100, L501.9520, L100.0100, L300.3900, L500.4050 ####[facility] [address] [place], [address] Cholesterol in LDL [Mass/Vol] 50 mg/dL Normal [facility] Comment on above: Result Comment: Bord irejvs=684-653 mg/dL Higher Gary=958 mg/dL or greater Performed By: #### L 500.4100, L501.9520, L100.0100, L300.3900, L500.4050 ####[facility] [address] [place], [address] Cholesterol in VLDL [Mass/Vol] 14 mg/dL Normal 5-40 [facility] Comment on above: Performed By: #### L 500.4100, L501.9520, L100.0100, L300.3900, L500.4050 ####[facility] [address] [place], [address] Triglyceride [Mass/Vol] 68 mg/dL Normal [facility] Comment on above: Result Comment: The drugs N-Acetylcysteine and Metamizole may falselydepress this assay.Normal range: <150 mg/dLBorderline High: 150-199 mg/dLHigh: 200-499 mg/dLVery High: >500 mg/dL Performed By: #### L 500.4100, L501.9520, L100.0100, L300.3900, L500.4050 ####[facility] [address] [place], [place], [address] No Panel InformationOrdered By: Samantha Cookie on 12-11-2024 23 U/L <32 [facility] Prothrombin Time w/INRon INR Coag (PPP) [Relative time] 1.6 {INR} Normal [facility] Comment on above: Performed By: #### L 500.4100, L501.9520, L100.0100, L300.3900, L500.4050 ####[facility] [address] [place], [address] PT Coag (PPP) [Time] 19.6 s High 11.7-14.9 [facility] Comment on above: Performed By: #### L 500.4100, L501.9520, L100.0100, L300.3900, L500.4050 ####[facility] [address] [place], [place], [address] Screening total cholesterol/ high density lipoprotein (HDL) cholesterol ratioOrdered By: Samantha Cookie on 12-11-2024 Cholesterol.total/Choles terol in HDL [Mass ratio] 4.02 {ratio} [facility] Serum globulin measurementOr dered By: Samantha Gary 12-11-2024 Globulin (S) [Mass/Vol] 3.1 g/dL 2.2-4.2 [facility] Serum or plasma alanine kebede otransferase (ALT) measurementOrdered By: Samantha Cookie on 12-11-2024 ALT [Catalytic activity/Vol] 17 U/L <35 [facility] Serum or plasma albumin lakshmi urement (mass/volume)Ordered By: Samantha Cookie 12-11-2024 Albumin [Mass/Vol] 3.3 g/dL Low 3.4-4.8 [facility] Serum or plasma albumin/glob ulin mass ratioOrdered By: Samantha Cookie 12-11-2024 Albumin/Globulin [Mass ratio] 1.1 {ratio} 0.9-2.4 [facility] Serum or plasma alkaline david sphatase measurementOrdered By: Samantha Cookie 12-11-2024 ALP [Catalytic activity/Vol] 82 U/L 35-104 [facility] Serum or plasma cholesterol in HDL measurement (mass/volume)Ordered By: Samantha Gary on 12-11-2024 Cholesterol in HDL [Mass/Vol] 21 mg/dL Low >40 [facility] Comment on above: National Cholesterol Education Program (NCEP) guidelines:<40 mg/dL: Low HDL-cholesterol (major risk factor for CHD)>= 60 mg/dL: High HDL-cholesterol (negative risk factor for CHD)HDL-cholesterol is affected by a number of factors, e.g. smoking, exercise, hormones, sex and age. Serum or plasma cholesterol measurement (mass/volume)Ordered By: Samantha Gary on 12-11-2024 Cholesterol [Mass/Vol] 84 mg/dL <201 [facility] Comment on above: Cholesterol level, D esirable <200 mg/dLBorderline high cholesterol 200-239 mg/dLHigh cholesterol >=240 mg/dLRecommendations of the NCEP Adult Treatment Panel for the following risk-cutoff thresholds for the [place] population. TSH DL <= 0.005 mIU/L QnOrde red By: Samantha Gary on 12-11-2024 TSH Qn 1.910 uIU/mL 0.300-4.200 [facility] Thyroid Stim Hormone (TSH)on 12-11-2024 TSH 1.910 uIU/mL Normal 0.300-4.200 [facility] Comment on above: Performed By: #### L 500.4100, L501.9520, L100.0100, L300.3900, L500.4050 ####[facility] [address] [place], [address] Total proteinOrdered By: Aut pablito Gary on 12-11-2024 Protein [Mass/Vol] 6.4 g/dL 5.9-8.4 [facility] Triglycerides measurementOrd ered By: Samantha Gary on 12-11-2024 Triglyceride [Mass/Vol] 68 mg/dL <199 [facility] Comment on above: The drugs N-Acetylcy steine and Metamizole may falsely depress this assay. Normal range: <150 mg/dLBorderline High: 150-199 mg/dLHigh: 200-499 mg/dLVery High: >500 mg/dL 12 Lead EKGon 12-10-2024 12 Lead EKG Normal [facility] Absolute lymphocyte countOrd ered By: Devyn Houston on 12-10-2024 Lymphocytes Auto (Unsp spec) [#/Vol] 1.45 10*3/uL 0.83-4.51 [facility] Anion gap in Serum or Plasma Ordered By: Devyn Houston on 12-10-2024 Anion gap [Moles/Vol] 12 mmol/L - [facility] Automated lymphocyte count a s percentage of total leukocytesOrdered By: Devyn Houston on 12-10-2024 Lymphocytes/100 WBC Auto (Unsp spec) 18.5 % Low [facility] BUN/creatinine ratioOrdered By: Devyn Houston on 12-10-2024 Urea nitrogen/Creatinine [Mass ratio] 19.0 mg/mg 03-10 [facility] Basic Metabolic Profile (BMP )on 12-10-2024 BUN/CRE 19.0 RATIO Normal 03-10 [facility] Comment on above: Performed By: #### L 300.3900, L503.7505, L500.2500, L100.0100 ####[facility] [address] [place], [address] Calcium [Mass/Vol] 8.5 mg/dL Normal 7.6-11.0 [facility] Comment on above: Performed By: #### L 300.3900, L503.7505, L500.2500, L100.0100 ####[facility] [address] [place], [address] Chloride [Moles/Vol] 105 mmol/L Normal 98-108 [facility] Comment on above: Performed By: #### L 300.3900, L503.7505, L500.2500, L100.0100 ####[facility] [address] [place], [address] CO2 [Moles/Vol] 21.9 mmol/L Normal 21.0-32.0 [facility] Comment on above: Performed By: #### L 300.3900, L503.7505, L500.2500, L100.0100 ####[facility] [address] [place], [address] Creatinine [Mass/Vol] 0.76 mg/dL Normal 0.70-1.20 [facility] Comment on above: Performed By: #### L 300.3900, L503.7505, L500.2500, L100.0100 ####[facility] [address] [place], [address] ECRCL 73.39 ml/min Normal 50-250 [facility] Comment on above: Performed By: #### L 300.3900, L503.7505, L500.2500, L100.0100 ####[facility] [address] [place], [address] GAP 12 Normal 5-15 [facility] Comment on above: Performed By: #### L 300.3900, L503.7505, L500.2500, L100.0100 ####[facility] [address] [place], [address] GFR/1.73 sq M.predicted among non-blacks MDRD (S/P/Bld) [Vol rate/Area] 86 mL/min/{1.73_m2} Normal >60 [facility] Comment on above: Result Comment: mL/m in/1.73m2 CKD-EPI Creatinine Equation (2020) Performed By: #### L 300.3900, L503.7505, L500.2500, L100.0100 ####[facility] [address] [place], [address] Glucose [Mass/Vol] 86 mg/dL Normal 70-99 [facility] Comment on above: Performed By: #### L 300.3900, L503.7505, L500.2500, L100.0100 ####[facility] [address] [place], [address] Potassium [Moles/Vol] 4.0 mmol/L Normal 3.3-5.1 [facility] Comment on above: Performed By: #### L 300.3900, L503.7505, L500.2500, L100.0100 ####[facility] [address] [place], [address] Sodium [Moles/Vol] 139 mmol/L Normal 133-145 [facility] Comment on above: Performed By: #### L 300.3900, L503.7505, L500.2500, L100.0100 ####[facility] [address] [place], [address] Urea nitrogen [Mass/Vol] 15 mg/dL Normal 4-19 [facility] Comment on above: Performed By: #### L 300.3900, L503.7505, L500.2500, L100.0100 ####[facility] [address] [place], [address] Basophil percentageOrdered B y: Devyn Houston on 12-10-2024 Basophils/100 WBC (Bld) 0.9 % 0-1 [facility] Blood manual differential co mment interpretation (narrative result)Ordered By: Devyn Houston on 12-10-2024 Manual differential comment Mathieu (Bld) [Interp] SCANNED [facility] Blood polychromasia detectio n by light microscopyOrdered By: Devyn Houston on 12-10-2024 Polychromasia LM Ql (Bld) 1+ [facility] CBC W/Diff, Automatedon 11-20 Anisocytosis Ql (Bld) 2+ [facility] Comment on above: Performed By: #### L 300.3900, L503.7505, L500.2500, L100.0100 ####[facility] [address] [place], [address] PLT EST ADEQUATE Normal ADEQ [facility] Comment on above: Performed By: #### L 300.3900, L503.7505, L500.2500, L100.0100 ####[facility] [address] [place], [address] POLYCHROMASIA 1+ Normal [facility] Comment on above: Performed By: #### L 300.3900, L503.7505, L500.2500, L100.0100 ####[facility] [address] [place], [address] SMEAR COMMENT SCANNED Normal [facility] Comment on above: Performed By: #### L 300.3900, L503.7505, L500.2500, L100.0100 ####[facility] [address] [place], [address] Carbon dioxide, total [Moles /volume] in Central venous bloodOrdered By: Devyn Houston on 12-10-2024 CO2 [Moles/Vol] 21.9 mmol/L 21.0-32.0 [facility] Chest 1 View (Portable)on Chest 1 View (Portable) Normal [facility] Chloride assayOrdered By: Gina Houston on 12-10-2024 Chloride [Moles/Vol] 105 mmol/L 98-108 [facility] Emergency Department Summary on 12-10-2024 Emergency Department Summary Normal [facility] Eosinophil percentageOrdered By: Devyn Houston on 12-10-2024 Eosinophils/100 WBC (Bld) 1.1 % 0-5 [facility] Erythrocyte distribution wid th ratioOrdered By: Devyn Houston on 12-10-2024 Erythrocyte distribution width (RBC) [Ratio] 22.5 % High 11.6-14.6 [facility] Erythrocyte distribution wid th standard deviationOrdered By: Devyn Houston on 12-10-2024 Erythrocyte distribution width (RBC) [Ratio] 56.9 fl High 35.1-43.9 [facility] Glomerular filtration rate ( GFR) estimation/1.73 sq m using serum, plasma, or whole bOrdered By: Devyn Houston on 12-10-2024 GFR/1.73 sq M.predicted among non-blacks MDRD (S/P/Bld) [Vol rate/Area] 86 mL/min/{1.73_m2} >60 [facility] H AND P Exam - Hospitaliston 12-10-2024 H&P Exam - Hospitalist Normal [facility] Hematocrit Auto (Bld) [Volum e fraction]Ordered By: Devyn Houston on 12-10-2024 Hematocrit (Bld) [Volume fraction] 35.5 % Low 37-47 [facility] Hemoglobin measurementOrdere d By: Devyn Houston on 12-10-2024 Hemoglobin (Bld) [Mass/Vol] 9.9 g/dL Low 12.0-15.0 [facility] Immature granulocytes/100 WB C Auto (Bld)Ordered By: Devyn Houston on 12-10-2024 Immature granulocytes/100 WBC (Bld) 0.500 % 0.0-0.9 [facility] L501.4021on 12-10-2024 Trop T High Sen 34 ng/L High <=14 [facility] Comment on above: Performed By: #### L 501.4021 ####[facility] [address] [place], [address] L503.7505on 12-10-2024 Natriuretic peptide B (Bld) [Mass/Vol] 6070 pg/mL High <=900 [facility] Comment on above: Result Comment: Hear t Failure Unlikely: < 300 pg/mLHeart Failure Likely< 50 Years: > 450 pg/mL50-75 Years: > 900 pg/mL>75 Years: > 1800 pg/mL Performed By: #### L 300.3900, L503.7505, L500.2500, L100.0100 ####[facility] [address] [place], [address] MCV (mean corpuscular volume ) determinationOrdered By: Devyn Houston on 12-10-2024 MCV (RBC) [Entitic vol] 72.0 fL Low 81-99 [facility] Magnesiumon 12-10-2024 Magnesium [Mass/Vol] 2.0 mg/dL Normal 1.5-2.2 [facility] Comment on above: Order Comment: Nelsone nts: may add to ED labs Performed By: #### L 501.5200 ####[facility] [address] [place], [address] Magnesium measurement (mass/ volume)Ordered By: Samantha Gary on 12-10-2024 Magnesium (Unsp spec) [Mass/Vol] 2.0 mg/dL 1.5-2.2 [facility] Mean corpuscular hemoglobin (MCH) determinationOrdered By: Devyn Houston on 12-10-2024 MCH (RBC) [Entitic mass] 20.1 pg Low 27.0-32.0 [facility] Monocyte percentageOrdered B y: Devyn Houston on 12-10-2024 Monocytes/100 WBC (Bld) 8.0 % 0-10 [facility] Natriuretic peptide.B prohor bhumi N-Terminal [Mass/volume] in Serum or PlasmaOrdered By: Devyn Houston on 12-10-2024 Natriuretic peptide.B prohormone N-Terminal [Mass/Vol] 6070 pg/mL High <900 [facility] Comment on above: Heart Failure Unlike ly: < 300 pg/mLHeart Failure Likely< 50 Years: > 450 pg/mL50-75 Years: > 900 pg/mL>75 Years: > 1800 pg/mL Neutrophil percentageOrdered By: Devyn Houston on 12-10-2024 Neutrophils/100 WBC (Bld) 71.0 % High 47-70 [facility] No Panel InformationOrdered By: Devyn Houston on 12-10-2024 2+ [facility] Platelet countOrdered By: Gina Houston on 12-10-2024 Platelets (Bld) [#/Vol] 344 10*3/uL 150-450 [facility] Platelet estimateOrdered By: Devyn Houston on 12-10-2024 Platelets LM Ql (Bld) ADEQUATE [facility] Potassium measurement (mass/ volume)Ordered By: Devyn Houston on 12-10-2024 Potassium (Unsp spec) [Mass/Vol] 4.0 mmol/L 3.3-5.1 [facility] Prothrombin Time w/INRon INR Coag (PPP) [Relative time] 1.8 {INR} Normal [facility] Comment on above: Performed By: #### L 300.3900, L503.7505, L500.2500, L100.0100 ####[facility] [address] [place], [address] PT Coag (PPP) [Time] 21.2 s High 11.7-14.9 [facility] Comment on above: Performed By: #### L 300.3900, L503.7505, L500.2500, L100.0100 ####[facility] [address] [place], [address] Prothrombin timeOrdered By: Devyn Houston on 12-10-2024 PT Coag (PPP) [Time] 21.2 s High 11.7-14.9 [facility] RBC Auto (Bld) [#/Vol]Ordere d By: Devyn Houston on 12-10-2024 RBC (Bld) [#/Vol] 4.93 10*6/uL 4.2-5.4 [facility] Serum creatinine measurement (mass/volume)Ordered By: Devyn Houston on 12-10-2024 Creatinine [Mass/Vol] 0.76 mg/dL 0.70-1.20 [facility] Serum glucose measurement (m ass/volume)Ordered By: Devyn Houston on 12-10-2024 Glucose [Mass/Vol] 86 mg/dL 70-99 [facility] Serum or plasma calcium lakshmi urement (mass/volume)Ordered By: Devyn Houston on 12-10-2024 Calcium [Mass/Vol] 8.5 mg/dL 7.6-11.0 [facility] Serum or plasma urea nitroge n measurement (mass/volume)Ordered By: Devyn Houston on 12-10-2024 Urea nitrogen [Mass/Vol] 15 mg/dL 4-19 [facility] Sodium levelOrdered By: Stanley Houston on 12-10-2024 Sodium [Moles/Vol] 139 mmol/L 133-145 [facility] Troponin T HS 2 HRon 025 Trop T High Sen 38 ng/L High <=14 [facility] Comment on above: Performed By: #### L 499.0042 ####[facility] [address] [place], [place], [address] Troponin T HS 4 HRon 025 Trop T High Sen 31 ng/L High <=14 [facility] Comment on above: Performed By: #### L 499.0043 ####[facility] [address] [place], [place], [id number] Troponin T.cardiac [Mass/vol ume] in Serum or Plasma by High sensitivity methodOrdered By: Devyn Houston on 12-10-2024 Troponin T.cardiac High sensitivity method [Mass/Vol] 31 ng/L High <14 [facility] Troponin T.cardiac High sensitivity method [Mass/Vol] 38 ng/L High <14 [facility] Troponin T.cardiac High sensitivity method [Mass/Vol] 34 ng/L High <14 [facility] White blood cell (WBC) count Ordered By: Devyn Houston on 12-10-2024 WBC (Bld) [#/Vol] 7.8 10*3/uL 4.4-11.0 [facility] Internal Medicine Office Vis [facility] 11-25-2024 Internal Medicine Office Visit Normal [facility] Internal Medicine Office Vis [facility] 10-25-2024 Internal Medicine Office Visit Normal [facility] International normalized rat io (INR) calculationOrdered By: Abdulaziz Ackerman on 10-17-2024 INR Coag (Bld) [Relative time] 2.3 {INR} [facility] Prothrombin Time w/INRon INR Coag (PPP) [Relative time] 2.3 {INR} Normal [facility] Comment on above: Performed By: #### L 300.3900 ####[facility] [address] [place], [place], [address] PT Coag (PPP) [Time] 25.6 s High 11.7-14.9 [facility] Comment on above: Performed By: #### L 300.3900 ####[facility] [address] [place], [place], [address] Prothrombin timeOrdered By: Abdulaziz Ackerman on 10-17-2024 PT Coag (PPP) [Time] 25.6 s High 11.7-14.9 [facility] Absolute lymphocyte countOrd ered By: Abdulaziz Ackerman on 09-27-2024 Lymphocytes Auto (Unsp spec) [#/Vol] 1.76 10*3/uL 0.83-4.51 [facility] Absolute neutrophil countOrd ered By: Abdulaziz Ackerman on 09-27-2024 Neutrophils (Bld) [#/Vol] 5.6 10*3/uL 2.0-7.7 [facility] Anion gap in Serum or Plasma Ordered By: Abdulaziz Ackerman on 09-27-2024 Anion gap [Moles/Vol] 9 mmol/L 5-15 [facility] Automated lymphocyte count a s percentage of total leukocytesOrdered By: Abdulaziz Ackerman on 09-27-2024 Lymphocytes/100 WBC Auto (Unsp spec) 21.1 % 19-41 [facility] BUN/creatinine ratioOrdered By: Abdulaziz Ackerman on 09-27-2024 Urea nitrogen/Creatinine [Mass ratio] 23.8 mg/mg High 10-20 [facility] Basophil percentageOrdered B y: Abdulaziz Ackerman on 09-27-2024 Basophils/100 WBC (Bld) 0.8 % 0-1 [facility] Bilirubin, totalOrdered By: Abdulaziz Ackerman on 09-27-2024 Bilirubin [Mass/Vol] 0.58 mg/dL 0.00-1.30 [facility] Blood polychromasia detectio n by light microscopyOrdered By: Abdulaziz Ackerman on 09-27-2024 Polychromasia LM Ql (Bld) 2+ [facility] CBC W/Diff, Automatedon 05-0 HYPOCHROMASIA 1+ Normal [facility] Comment on above: Performed By: #### L 100.0100, L500.4050, L300.3900 ####[facility] [address] [place], [address] POLYCHROMASIA 2+ Normal [facility] Comment on above: Performed By: #### L 100.0100, L500.4050, L300.3900 ####[facility] [address] [place], [address] Anisocytosis Ql (Bld) 2+ [facility] Comment on above: Performed By: #### L 100.0100, L500.4050, L300.3900 ####[facility] [address] [place], [address] PLT EST ADEQUATE Normal ADEQ [facility] Comment on above: Performed By: #### L 100.0100, L500.4050, L300.3900 ####[facility] [address] [place], [address] Carbon dioxide, total [Moles /volume] in Central venous bloodOrdered By: Abdulaziz Ackerman on 09-27-2024 CO2 [Moles/Vol] 24.2 mmol/L 21.0-32.0 [facility] Chloride assayOrdered By: Renita Ackerman on 09-27-2024 Chloride [Moles/Vol] 106 mmol/L 98-108 [facility] Comprehensive Metabolic Prof ilon 09-27-2024 Albumin [Mass/Vol] 3.7 g/dL Normal 3.4-4.8 [facility] Comment on above: Performed By: #### L 100.0100, L500.4050, L300.3900 ####[facility] [address] [place], [address] Albumin/Globulin [Mass ratio] 1.3 {ratio} Normal 0.9-2.4 [facility] Comment on above: Performed By: #### L 100.0100, L500.4050, L300.3900 ####[facility] [address] [place] [place], [address] ALK PHOS 77 U/L Normal 35-104 [facility] Comment on above: Performed By: #### L 100.0100, L500.4050, L300.3900 ####[facility] [address] [place], [address] ALT [Catalytic activity/Vol] 16 U/L Normal <=34 [facility] Comment on above: Performed By: #### L 100.0100, L500.4050, L300.3900 ####[facility] [address] [place], [address] AST [Catalytic activity/Vol] 19 U/L Normal <=31 [facility] Comment on above: Performed By: #### L 100.0100, L500.4050, L300.3900 ####[facility] [address] [place], [address] Bilirubin [Mass/Vol] 0.58 mg/dL Normal 0.00-1.30 [facility] Comment on above: Performed By: #### L 100.0100, L500.4050, L300.3900 ####[facility] [address] [place] [place], [address] BUN/CRE 23.8 RATIO High 10-20 [facility] Comment on above: Performed By: #### L 100.0100, L500.4050, L300.3900 ####[facility] [address] [place] [place], [address] Calcium [Mass/Vol] 8.6 mg/dL Normal 7.6-11.0 [facility] Comment on above: Performed By: #### L 100.0100, L500.4050, L300.3900 ####[facility] [address] [place], [address] Chloride [Moles/Vol] 106 mmol/L Normal 98-108 [facility] Comment on above: Performed By: #### L 100.0100, L500.4050, L300.3900 ####[facility] [address] [place], [address] CO2 [Moles/Vol] 24.2 mmol/L Normal 21.0-32.0 [facility] Comment on above: Performed By: #### L 100.0100, L500.4050, L300.3900 ####[facility] [address] [place], [address] Creatinine [Mass/Vol] 0.81 mg/dL Normal 0.70-1.20 [facility] Comment on above: Performed By: #### L 100.0100, L500.4050, L300.3900 ####[facility] [address] [place], [address] GAP 9 Normal 5-15 [facility] Comment on above: Performed By: #### L 100.0100, L500.4050, L300.3900 ####[facility] [address] [place], [address] GFR/1.73 sq M.predicted among non-blacks MDRD (S/P/Bld) [Vol rate/Area] 79 mL/min/{1.73_m2} Normal >60 [facility] Comment on above: Result Comment: mL/m in/1.73m2 CKD-EPI Creatinine Equation (2020) Performed By: #### L 100.0100, L500.4050, L300.3900 ####[facility] [address] [place], [address] Globulin (S) [Mass/Vol] 2.8 g/dL Normal 2.2-4.2 [facility] Comment on above: Performed By: #### L 100.0100, L500.4050, L300.3900 ####[facility] [address] [place], [address] Glucose [Mass/Vol] 98 mg/dL Normal 70-99 [facility] Comment on above: Performed By: #### L 100.0100, L500.4050, L300.3900 ####[facility] [address] [place] [place], [address] Potassium [Moles/Vol] 3.9 mmol/L Normal 3.3-5.1 [facility] Comment on above: Performed By: #### L 100.0100, L500.4050, L300.3900 ####[facility] [address] [place], [address] Sodium [Moles/Vol] 139 mmol/L Normal 133-145 [facility] Comment on above: Performed By: #### L 100.0100, L500.4050, L300.3900 ####[facility] [address] [place] [place], [address] T PROT 6.5 g/dL Normal 5.9-8.4 [facility] Comment on above: Performed By: #### L 100.0100, L500.4050, L300.3900 ####[facility] [address] [place], [address] Urea nitrogen [Mass/Vol] 19 mg/dL Normal 4-19 [facility] Comment on above: Performed By: #### L 100.0100, L500.4050, L300.3900 ####[facility] [address] [place] [place] [place], [address] Eosinophil percentageOrdered By: Abdulaziz Ackerman on 09-27-2024 Eosinophils/100 WBC (Bld) 1.6 % 0-5 [facility] Erythrocyte distribution wid th ratioOrdered By: Abdulaziz Ackerman on 09-27-2024 Erythrocyte distribution width (RBC) [Ratio] 21.3 % High 11.6-14.6 [facility] Erythrocyte distribution wid th standard deviationOrdered By: Abdulaziz Ackerman on 09-27-2024 Erythrocyte distribution width (RBC) [Ratio] 53.1 fl High 35.1-43.9 [facility] Glomerular filtration rate ( GFR) estimation/1.73 sq m using serum, plasma, or whole bOrdered By: Abdulaziz Ackerman on 09-27-2024 GFR/1.73 sq M.predicted among non-blacks MDRD (S/P/Bld) [Vol rate/Area] 79 mL/min/{1.73_m2} >60 [facility] Comment on above: mL/min/1.73m2 CKD-EP I Creatinine Equation (2020) Hematocrit Auto (Bld) [Volum e fraction]Ordered By: Abdulaziz Ackerman on 09-27-2024 Hematocrit (Bld) [Volume fraction] 36.6 % Low 37-47 [facility] Hemoglobin measurementOrdere d By: Abdulaziz Ackerman on 09-27-2024 Hemoglobin (Bld) [Mass/Vol] 10.0 g/dL Low 12.0-15.0 [facility] Hypochromatic red blood cell detectionOrdered By: Abdulaziz Ackerman on 09-27-2024 Hypochromia Ql (Bld) 1+ [facility] Immature granulocytes/100 WB C Auto (Bld)Ordered By: Abdulaziz Ackerman on 09-27-2024 Immature granulocytes/100 WBC (Bld) 0.200 % 0.0-0.9 [facility] Comment on above: IG% - Immature Granu locytes (promyelocytes, myelocytes and metamyelocytes) > 1% indicates that a LEFT SHIFT is Present. Internal Medicine Office Vis remigio 09-27-2024 Internal Medicine Office Visit Normal [facility] Laboratory - Chemistry and C hemistry - challengeOrdered By: Abdulaziz Ackerman on 09-27-2024 AST [Catalytic activity/Vol] 19 U/L <32 [facility] - Hematology and Cell countsOrdered By: Abdulaziz Ackerman on 09-27-2024 Anisocytosis Ql (Bld) 2+ [facility] MCV (mean corpuscular volume ) determinationOrdered By: Abdulaziz Ackerman on 09-27-2024 MCV (RBC) [Entitic vol] 72.8 fL Low 81-99 [facility] Mean corpuscular hemoglobin (MCH) determinationOrdered By: Abdulaziz Ackerman on 09-27-2024 MCH (RBC) [Entitic mass] 19.9 pg Low 27.0-32.0 [facility] Mean corpuscular hemoglobin concentration (MCHC) determinationOrdered By: Abdulaziz Ackerman on 09-27-2024 MCHC (RBC) [Mass/Vol] 27.3 g/dL Low 32-36 [facility] Mean platelet volume determi nationOrdered By: Abdulaziz Ackerman on 09-27-2024 Platelet mean volume (Bld) [Entitic vol] 11.2 fL 6.2-12.0 [facility] Monocyte percentageOrdered B y: Abdulaziz Ackerman on 09-27-2024 Monocytes/100 WBC (Bld) 9.0 % 0-10 [facility] Neutrophil percentageOrdered By: Abdulaziz Ackerman on 09-27-2024 Neutrophils/100 WBC (Bld) 67.3 % 47-70 [facility] No Panel InformationOrdered By: Abdulaziz Ackerman on 09-27-2024 2+ [facility] 19 U/L <32 [facility] Nucleated red blood cell per centageOrdered By: Abdulaziz Ackerman on 09-27-2024 Nucleated RBC/100 WBC (Bld) [Ratio] 0 % 0-5 [facility] Platelet countOrdered By: Renita Ackerman on 09-27-2024 Platelets (Bld) [#/Vol] 221 10*3/uL 150-450 [facility] Platelet estimateOrdered By: Abdulaziz Ackerman on 09-27-2024 Platelets LM Ql (Bld) ADEQUATE [facility] Potassium measurement (mass/ volume)Ordered By: Abdulaziz Ackerman on 09-27-2024 Potassium (Unsp spec) [Mass/Vol] 3.9 mmol/L 3.3-5.1 [facility] Prothrombin Time w/INRon INR Coag (PPP) [Relative time] 1.9 {INR} Normal [facility] Comment on above: Performed By: #### L 100.0100, L500.4050, L300.3900 ####[facility] [address] [place], [address] PT Coag (PPP) [Time] 21.7 s High 11.7-14.9 [facility] Comment on above: Performed By: #### L 100.0100, L500.4050, L300.3900 ####[facility] [address] [place], [address] RBC Auto (Bld) [#/Vol]Ordere d By: Abdulaziz Ackerman on 09-27-2024 RBC (Bld) [#/Vol] 5.03 10*6/uL 4.2-5.4 [facility] Serum creatinine measurement (mass/volume)Ordered By: Abdulaziz Ackerman on 09-27-2024 Creatinine [Mass/Vol] 0.81 mg/dL 0.70-1.20 [facility] Serum globulin measurementOr dered By: Abdulaziz Ackerman on 09-27-2024 Globulin (S) [Mass/Vol] 2.8 g/dL 2.2-4.2 [facility] Serum glucose measurement (m ass/volume)Ordered By: Abdulaziz Ackerman on 09-27-2024 Glucose [Mass/Vol] 98 mg/dL 70-99 [facility] Serum or plasma alanine kebede otransferase (ALT) measurementOrdered By: Abdulaziz Ackerman on 09-27-2024 ALT [Catalytic activity/Vol] 16 U/L <35 [facility] Serum or plasma albumin lakshmi urement (mass/volume)Ordered By: Abdulaziz Ackerman on 09-27-2024 Albumin [Mass/Vol] 3.7 g/dL 3.4-4.8 [facility] Serum or plasma albumin/glob ulin mass ratioOrdered By: Abdulaziz Ackerman on 09-27-2024 Albumin/Globulin [Mass ratio] 1.3 {ratio} 0.9-2.4 [facility] Serum or plasma alkaline david sphatase measurementOrdered By: bAdulaziz Ackerman on 09-27-2024 ALP [Catalytic activity/Vol] 77 U/L 35-104 [facility] Serum or plasma calcium lakshmi urement (mass/volume)Ordered By: Abdulaziz Ackerman on 09-27-2024 Calcium [Mass/Vol] 8.6 mg/dL 7.6-11.0 [facility] Serum or plasma urea nitroge n measurement (mass/volume)Ordered By: Abdulaziz Ackerman on 09-27-2024 Urea nitrogen [Mass/Vol] 19 mg/dL 4-19 [facility] Sodium levelOrdered By: Glo Ackerman on 09-27-2024 Sodium [Moles/Vol] 139 mmol/L 133-145 [facility] Total proteinOrdered By: Guicho Ackerman on 09-27-2024 Protein [Mass/Vol] 6.5 g/dL 5.9-8.4 [facility] White blood cell (WBC) count Ordered By: Abdulaziz Ackerman on 09-27-2024 WBC (Bld) [#/Vol] 8.3 10*3/uL 4.4-11.0 [facility] Internal Medicine Office Vis iton 09-06-2024 Internal Medicine Office Visit Normal [facility] Anion gap in Serum or Plasma Ordered By: Abdulaziz Ackerman on 09-02-2024 Anion gap [Moles/Vol] 12 mmol/L 5-15 [facility] BUN/creatinine ratioOrdered By: Abdulaziz Ackerman on 09-02-2024 Urea nitrogen/Creatinine [Mass ratio] 16.0 mg/mg 10-20 [facility] Basic Metabolic Profile (BMP )on 09-02-2024 BUN/CRE 16.0 RATIO Normal 10-20 [facility] Comment on above: Performed By: #### L 300.3900, L500.2500 ####[facility] [address] [place] [place], [address] Calcium [Mass/Vol] 8.4 mg/dL Normal 7.6-11.0 [facility] Comment on above: Performed By: #### L 300.3900, L500.2500 ####[facility] [address] [place] [place], [address] Chloride [Moles/Vol] 105 mmol/L Normal 98-108 [facility] Comment on above: Performed By: #### L 300.3900, L500.2500 ####[facility] [address] [place], [address] CO2 [Moles/Vol] 23.6 mmol/L Normal 21.0-32.0 [facility] Comment on above: Performed By: #### L 300.3900, L500.2500 ####[facility] [address], [address] Creatinine [Mass/Vol] 0.92 mg/dL Normal 0.70-1.20 [facility] Comment on above: Performed By: #### L 300.3900, L500.2500 ####[facility] [address] [place], [address] GAP 12 Normal 5-15 [facility] Comment on above: Performed By: #### L 300.3900, L500.2500 ####[facility] [address] [place] [place], [address] GFR/1.73 sq M.predicted among non-blacks MDRD (S/P/Bld) [Vol rate/Area] 69 mL/min/{1.73_m2} Normal >60 [facility] Comment on above: Result Comment: mL/m in/1.73m2 CKD-EPI Creatinine Equation (2020) Performed By: #### L 300.3900, L500.2500 ####[facility] [address] [place], [address] Glucose [Mass/Vol] 148 mg/dL High 70-99 [facility] Comment on above: Performed By: #### L 300.3900, L500.2500 ####[facility] [address] [place], [address] Potassium [Moles/Vol] 3.4 mmol/L Normal 3.3-5.1 [facility] Comment on above: Performed By: #### L 300.3900, L500.2500 ####[facility] [address] [place], [address] Sodium [Moles/Vol] 141 mmol/L Normal 133-145 [facility] Comment on above: Performed By: #### L 300.3900, L500.2500 ####[facility] [address] [place], [address] Urea nitrogen [Mass/Vol] 15 mg/dL Normal 4-19 [facility] Comment on above: Performed By: #### L 300.3900, L500.2500 ####[facility] [address] [place], [address] Carbon dioxide, total [Moles /volume] in Central venous bloodOrdered By: Abdulaziz Ackerman on 09-02-2024 CO2 [Moles/Vol] 23.6 mmol/L 21.0-32.0 [facility] Chloride assayOrdered By: Renita Ackerman on 09-02-2024 Chloride [Moles/Vol] 105 mmol/L 98-108 [facility] Glomerular filtration rate ( GFR) estimation/1.73 sq m using serum, plasma, or whole bOrdered By: Abdulaziz Ackerman on 09-02-2024 GFR/1.73 sq M.predicted among non-blacks MDRD (S/P/Bld) [Vol rate/Area] 69 mL/min/{1.73_m2} >60 [facility] Comment on above: mL/min/1.73m2 CKD-EP I Creatinine Equation (2020) International normalized rat io (INR) calculationOrdered By: Abdulaziz Ackerman on 09-02-2024 INR Coag (Bld) [Relative time] 1.5 {INR} [facility] Potassium measurement (mass/ volume)Ordered By: Abdulaziz Ackerman on 09-02-2024 Potassium (Unsp spec) [Mass/Vol] 3.4 mmol/L 3.3-5.1 [facility] Prothrombin Time w/INRon INR Coag (PPP) [Relative time] 1.5 {INR} Normal [facility] Comment on above: Performed By: #### L 300.3900, L500.2500 ####[facility] [address] [place], [address] PT Coag (PPP) [Time] 18.1 s High 11.7-14.9 [facility] Comment on above: Performed By: #### L 300.3900, L500.2500 ####[facility] [address] [place], [address] Prothrombin timeOrdered By: Abdulaziz Ackerman on 09-02-2024 PT Coag (PPP) [Time] 18.1 s High 11.7-14.9 [facility] Serum creatinine measurement (mass/volume)Ordered By: Abdulaziz Ackerman on 09-02-2024 Creatinine [Mass/Vol] 0.92 mg/dL 0.70-1.20 [facility] Serum glucose measurement (m ass/volume)Ordered By: Abdulaziz Ackerman on 09-02-2024 Glucose [Mass/Vol] 148 mg/dL High 70-99 [facility] Serum or plasma calcium lakshmi urement (mass/volume)Ordered By: Abdulaziz Ackerman on 09-02-2024 Calcium [Mass/Vol] 8.4 mg/dL 7.6-11.0 [facility] Serum or plasma urea nitroge n measurement (mass/volume)Ordered By: Abdulaziz Ackerman on 09-02-2024 Urea nitrogen [Mass/Vol] 15 mg/dL - [facility] Sodium levelOrdered By: Glo Ackerman on 09-02-2024 Sodium [Moles/Vol] 141 mmol/L 133-145 [facility] Basic Metabolic Profile (BMP )on 08-26-2024 BUN Normal - [facility] Comment on above: Result Comment: Canc elled via OM: Order cancelled - Patient discharged Performed By: #### L 100.0100, L500.2500 ####[facility] [address] [facility] [address] BUN/CRE Normal 10-20 [facility] Comment on above: Result Comment: Canc elled via OM: Order cancelled - Patient discharged Performed By: #### L 100.0100, L500.2500 ####[facility] [address] [facility] [address] Calcium Normal 7.6-11.0 [facility] Comment on above: Result Comment: Canc elled via OM: Order cancelled - Patient discharged Performed By: #### L 100.0100, L500.2500 ####[facility] [address] [place], [address] CL Normal 98-108 [facility] Comment on above: Result Comment: Canc elled via OM: Order cancelled - Patient discharged Performed By: #### L 100.0100, L500.2500 ####[facility] [address] [facility] [address] CO2 Normal 21.0-32.0 [facility] Comment on above: Result Comment: Canc elled via OM: Order cancelled - Patient discharged Performed By: #### L 100.0100, L500.2500 ####[facility] [address] [place], [address] CREAT,SERUM Normal 0.70-1.20 [facility] Comment on above: Result Comment: Canc elled via OM: Order cancelled - Patient discharged Performed By: #### L 100.0100, L500.2500 ####[facility] [address] [place], [address] eGFR Normal >60 [facility] Comment on above: Result Comment: Canc elled via OM: Order cancelled - Patient discharged Performed By: #### L 100.0100, L500.2500 ####[facility] [address] [place], [address] GAP Normal 5-15 [facility] Comment on above: Result Comment: Canc elled via OM: Order cancelled - Patient discharged Performed By: #### L 100.0100, L500.2500 ####[facility] [address] [place], [address] GLU Normal 70-99 [facility] Comment on above: Result Comment: Canc elled via OM: Order cancelled - Patient discharged Performed By: #### L 100.0100, L500.2500 ####[facility] [address] [place], [address] Potassium Normal 3.3-5.1 [facility] Comment on above: Result Comment: Canc elled via OM: Order cancelled - Patient discharged Performed By: #### L 100.0100, L500.2500 ####[facility] [address] [place] [place], [address] Basic Metabolic Profile (BMP) Normal 133-145 [facility] Comment on above: Result Comment: Canc elled via OM: Order cancelled - Patient discharged Performed By: #### L 100.0100, L500.2500 ####[facility] [address] [place] [place], [address] CBC W/Diff, Automatedon 04-0 -2024 Absolute Neut Normal 2.0-7.7 [facility] Comment on above: Result Comment: Canc elled via OM: Order cancelled - Patient discharged Performed By: #### L 100.0100, L500.2500 ####[facility] [address] [place], [address] HCT Normal 37-47 [facility] Comment on above: Result Comment: Canc elled via OM: Order cancelled - Patient discharged Performed By: #### L 100.0100, L500.2500 ####[facility] [address] [place], [address] HGB Normal 12.0-15.0 [facility] Comment on above: Result Comment: Canc elled via OM: Order cancelled - Patient discharged Performed By: #### L 100.0100, L500.2500 ####[facility] [address] [place], [address] MCH Normal 27.0-32.0 [facility] Comment on above: Result Comment: Canc elled via OM: Order cancelled - Patient discharged Performed By: #### L 100.0100, L500.2500 ####[facility] [address] [place], [address] MCHC Normal 32-36 [facility] Comment on above: Result Comment: Canc elled via OM: Order cancelled - Patient discharged Performed By: #### L 100.0100, L500.2500 ####[facility] [address] [place], [address] MCV Normal 81-99 [facility] Comment on above: Result Comment: Canc elled via OM: Order cancelled - Patient discharged Performed By: #### L 100.0100, L500.2500 ####[facility] [address] [place], [address] NEUT% Normal 47-70 [facility] Comment on above: Result Comment: Canc elled via OM: Order cancelled - Patient discharged Performed By: #### L 100.0100, L500.2500 ####[facility] [address] [place], [address] PLT Normal 150-450 [facility] Comment on above: Result Comment: Canc elled via OM: Order cancelled - Patient discharged Performed By: #### L 100.0100, L500.2500 ####[facility] [address] [place], [address] RBC Normal 4.2-5.4 [facility] Comment on above: Result Comment: Canc elled via OM: Order cancelled - Patient discharged Performed By: #### L 100.0100, L500.2500 ####[facility] [address] [place], [address] RDW CV Normal 11.6-14.6 [facility] Comment on above: Result Comment: Canc elled via OM: Order cancelled - Patient discharged Performed By: #### L 100.0100, L500.2500 ####[facility] [address] [place], [address] RDW SD Normal 35.1-43.9 [facility] Comment on above: Result Comment: Canc elled via OM: Order cancelled - Patient discharged Performed By: #### L 100.0100, L500.2500 ####[facility] [address] [place], [address] WBC Normal 4.4-11.0 [facility] Comment on above: Result Comment: Canc elled via OM: Order cancelled - Patient discharged Performed By: #### L 100.0100, L500.2500 ####[facility] [address] [place], [address] Prothrombin Time w/INRon INR Normal [facility] Comment on above: Result Comment: Canc elled via OM: Order cancelled - Patient discharged Performed By: #### L 300.3900 ####[facility] [address] [place], [address] PROTIME Normal 11.7-14.9 [facility] Comment on above: Result Comment: Canc elled via OM: Order cancelled - Patient discharged Performed By: #### L 300.3900 ####[facility] [address] [place], [address] Absolute lymphocyte countOrd ered By: Iglesia Benson on 08-25-2024 Lymphocytes Auto (Unsp spec) [#/Vol] 1.53 10*3/uL 0.83-4.51 [facility] Absolute neutrophil countOrd ered By: Iglesia Benson on 08-25-2024 Neutrophils (Bld) [#/Vol] 4.4 10*3/uL 2.0-7.7 [facility] Anion gap in Serum or Plasma Ordered By: Iglesia Benson on 08-25-2024 Anion gap [Moles/Vol] 12 mmol/L 5-15 [facility] Automated lymphocyte count a s percentage of total leukocytesOrdered By: Iglesia Benson on 08-25-2024 Lymphocytes/100 WBC Auto (Unsp spec) 22.8 % 19-41 [facility] BUN/creatinine ratioOrdered By: Iglesia Benson on 08-25-2024 Urea nitrogen/Creatinine [Mass ratio] 21.7 mg/mg High 10-20 [facility] Basic Metabolic Profile (BMP )on 08-25-2024 BUN/CRE 21.7 RATIO High 10-20 [facility] Comment on above: Performed By: #### L 100.0100, L500.2500 ####[facility] [address] [place], [address] Calcium [Mass/Vol] 8.5 mg/dL Normal 7.6-11.0 [facility] Comment on above: Performed By: #### L 100.0100, L500.2500 ####[facility] [address] [place], [address] Chloride [Moles/Vol] 101 mmol/L Normal 98-108 [facility] Comment on above: Performed By: #### L 100.0100, L500.2500 ####[facility] [address], [address] CO2 [Moles/Vol] 26.5 mmol/L Normal 21.0-32.0 [facility] Comment on above: Performed By: #### L 100.0100, L500.2500 ####[facility] [address] [place], [address] Creatinine [Mass/Vol] 1.18 mg/dL Normal 0.70-1.20 [facility] Comment on above: Performed By: #### L 100.0100, L500.2500 ####[facility] [address] [place], [address] ECRCL 52.76 ml/min Normal 50-250 [facility] Comment on above: Performed By: #### L 100.0100, L500.2500 ####[facility] [address] [place], [address] GAP 12 Normal 5-15 [facility] Comment on above: Performed By: #### L 100.0100, L500.2500 ####[facility] [address] [place], [address] GFR/1.73 sq M.predicted among non-blacks MDRD (S/P/Bld) [Vol rate/Area] 51 mL/min/{1.73_m2} Low >60 [facility] Comment on above: Result Comment: mL/m in/1.73m2 CKD-EPI Creatinine Equation (2020) Performed By: #### L 100.0100, L500.2500 ####[facility] [address] [place], [address] Glucose [Mass/Vol] 114 mg/dL High 70-99 [facility] Comment on above: Performed By: #### L 100.0100, L500.2500 ####[facility] [address] [place], [address] Potassium [Moles/Vol] 3.4 mmol/L Normal 3.3-5.1 [facility] Comment on above: Performed By: #### L 100.0100, L500.2500 ####[facility] [address] [place], [address] Sodium [Moles/Vol] 139 mmol/L Normal 133-145 [facility] Comment on above: Performed By: #### L 100.0100, L500.2500 ####[facility] [address] [place], [address] Urea nitrogen [Mass/Vol] 26 mg/dL High 4-19 [facility] Comment on above: Performed By: #### L 100.0100, L500.2500 ####[facility] [address] [place], [address] Basophil percentageOrdered B y: Iglesiaashley Benson on 08-25-2024 Basophils/100 WBC (Bld) 0.7 % 0-1 [facility] CBC W/Diff, Automatedon 04-0 Absolute Lymph 1.53 X10 3/uL Normal 0.83-4.51 [facility] Comment on above: Performed By: #### L 100.0100, L500.2500 ####[facility] [address] [place], [address] Absolute Neut 4.4 X10 3/uL Normal 2.0-7.7 [facility] Comment on above: Performed By: #### L 100.0100, L500.2500 ####[facility] [address] [place], [address] Basophils/100 WBC (Bld) 0.7 % Normal 0-1 [facility] Comment on above: Performed By: #### L 100.0100, L500.2500 ####[facility] [address] [place], [address] Eosinophils/100 WBC (Bld) 1.9 % Normal 0-5 [facility] Comment on above: Performed By: #### L 100.0100, L500.2500 ####[facility] [address] [place], [address] Erythrocyte distribution width (RBC) [Ratio] 19.9 % High 11.6-14.6 [facility] Comment on above: Performed By: #### L 100.0100, L500.2500 ####[facility] [address] [place], [address] Hematocrit (Bld) [Volume fraction] 36.9 % Low 37-47 [facility] Comment on above: Performed By: #### L 100.0100, L500.2500 ####[facility] [address] [place], [address] Hemoglobin (Bld) [Mass/Vol] 10.2 g/dL Low 12.0-15.0 [facility] Comment on above: Performed By: #### L 100.0100, L500.2500 ####[facility] [address] [place], [address] IG% 0.300 Normal 0.0-0.9 [facility] Comment on above: Result Comment: IG% - Immature Granulocytes (promyelocytes, myelocytes andmetamyelocytes) > 1% indicates that a LEFT SHIFT is Present. Performed By: #### L 100.0100, L500.2500 ####[facility] [address] [place], [address] Lymphocytes/100 WBC (Bld) 22.8 % Normal 19-41 [facility] Comment on above: Performed By: #### L 100.0100, L500.2500 ####[facility] [address] [place], [address] MCH (RBC) [Entitic mass] 20.1 pg Low 27.0-32.0 [facility] Comment on above: Performed By: #### L 100.0100, L500.2500 ####[facility] [address] [place], [address] MCHC (RBC) [Mass/Vol] 27.6 g/dL Low 32-36 [facility] Comment on above: Performed By: #### L 100.0100, L500.2500 ####[facility] [address] [place], [address] MCV (RBC) [Entitic vol] 72.8 fL Low 81-99 [facility] Comment on above: Performed By: #### L 100.0100, L500.2500 ####[facility] [address] [place], [address] Monocytes/100 WBC (Bld) 8.9 % Normal 0-10 [facility] Comment on above: Performed By: #### L 100.0100, L500.2500 ####[facility] [address] [place], [address] Neutrophils/100 WBC (Bld) 65.4 % Normal 47-70 [facility] Comment on above: Performed By: #### L 100.0100, L500.2500 ####[facility] [address] [place], [address] Nucleated RBC (Bld) [#/Vol] 0 10*3/uL Normal 0-5 [facility] Comment on above: Performed By: #### L 100.0100, L500.2500 ####[facility] [address] [place], [address] Platelet mean volume (Bld) [Entitic vol] 10.0 fL Normal 6.2-12.0 [facility] Comment on above: Performed By: #### L 100.0100, L500.2500 ####[facility] [address] [place], [address] Platelets (Bld) [#/Vol] 218 10*3/uL Normal 150-450 [facility] Comment on above: Performed By: #### L 100.0100, L500.2500 ####[facility] [address] [place], [address] RBC (Bld) [#/Vol] 5.07 10*6/uL Normal 4.2-5.4 [facility] Comment on above: Performed By: #### L 100.0100, L500.2500 ####[facility] [address] [place], [address] RDW SD 50.4 fl High 35.1-43.9 [facility] Comment on above: Performed By: #### L 100.0100, L500.2500 ####[facility] [address] [place], [address] WBC (Bld) [#/Vol] 6.7 10*3/uL Normal 4.4-11.0 [facility] Comment on above: Performed By: #### L 100.0100, L500.2500 ####[facility] [address] [place], [address] Carbon dioxide, total [Moles /volume] in Central venous bloodOrdered By: Iglesia Benson on 08-25-2024 CO2 [Moles/Vol] 26.5 mmol/L 21.0-32.0 [facility] Chloride assayOrdered By: Yinka Benson on 08-25-2024 Chloride [Moles/Vol] 101 mmol/L 98-108 [facility] Discharge Instructionon 04-0 Discharge Instruction Normal [facility] Eosinophil percentageOrdered By: Iglesia Benson on 08-25-2024 Eosinophils/100 WBC (Bld) 1.9 % 0-5 [facility] Erythrocyte distribution wid th (RBC) [Ratio]Ordered By: Iglesia Benson on 08-25-2024 Erythrocyte distribution width (RBC) [Entitic vol] 50.4 fL High 35.1-43.9 [facility] Erythrocyte distribution wid th ratioOrdered By: Iglesia Benson on 08-25-2024 Erythrocyte distribution width (RBC) [Ratio] 19.9 % High 11.6-14.6 [facility] Erythrocyte distribution wid th standard deviationOrdered By: Iglesia Benson on 08-25-2024 Erythrocyte distribution width (RBC) [Ratio] 50.4 fl High 35.1-43.9 [facility] Estimation of creatinine jose aranceOrdered By: Iglesia Benson on 08-25-2024 Estimated Creatinine Clearance Calc 52.76 ml/min 50-250 [facility] GFR/1.73 sq M.predicted romelia g non-blacks MDRD (S/P/Bld) [Vol rate/Area]Ordered By: Iglesia Benson on 08-25-2024 Estimated GFR (MDRD) Non-Af Amer 51 Low >60 [facility] Comment on above: mL/min/1.73m2 CKD-EP I Creatinine Equation (2020) Glomerular filtration rate ( GFR) estimation/1.73 sq m using serum, plasma, or whole bOrdered By: Iglesia Benson on 08-25-2024 GFR/1.73 sq M.predicted among non-blacks MDRD (S/P/Bld) [Vol rate/Area] 51 mL/min/{1.73_m2} Low >60 [facility] Comment on above: mL/min/1.73m2 CKD-EP I Creatinine Equation (2020) Hematocrit Auto (Bld) [Volum e fraction]Ordered By: Iglesia Benson on 08-25-2024 Hematocrit (Bld) [Volume fraction] 36.9 % Low 37-47 [facility] Hemoglobin measurementOrdere d By: Iglesia Benson on 08-25-2024 Hemoglobin (Bld) [Mass/Vol] 10.2 g/dL Low 12.0-15.0 [facility] Immature granulocytes/100 WB C Auto (Bld)Ordered By: Iglesia Benson on 08-25-2024 Immature granulocytes/100 WBC (Bld) 0.300 % 0.0-0.9 [facility] Comment on above: IG% - Immature Granu locytes (promyelocytes, myelocytes and metamyelocytes) > 1% indicates that a LEFT SHIFT is Present. International normalized rat io (INR) calculationOrdered By: Iglesia Benson on 08-25-2024 INR Coag (Bld) [Relative time] 3.2 {INR} [facility] Lymphocytes Auto (Unsp spec) [#/Vol]Ordered By: Iglesia Benson on 08-25-2024 Lymphocytes (Bld) [#/Vol] 1.53 10*3/uL 0.83-4.51 [facility] Lymphocytes/100 WBC Auto (Un sp spec)Ordered By: Iglesia Benson on 08-25-2024 Lymphocytes/100 WBC (Bld) 22.8 % 19-41 [facility] MCV (mean corpuscular volume ) determinationOrdered By: Iglesia Benson on 08-25-2024 MCV (RBC) [Entitic vol] 72.8 fL Low 81-99 [facility] Mean corpuscular hemoglobin (MCH) determinationOrdered By: Iglesia Benson on 08-25-2024 MCH (RBC) [Entitic mass] 20.1 pg Low 27.0-32.0 [facility] Mean corpuscular hemoglobin concentration (MCHC) determinationOrdered By: Iglesia Benson on 08-25-2024 MCHC (RBC) [Mass/Vol] 27.6 g/dL Low 32-36 [facility] Mean platelet volume determi nationOrdered By: Iglesia Benson on 08-25-2024 Platelet mean volume (Bld) [Entitic vol] 10.0 fL 6.2-12.0 [facility] Monocyte percentageOrdered B y: Iglesia Benson on 08-25-2024 Monocytes/100 WBC (Bld) 8.9 % 0-10 [facility] Neutrophil percentageOrdered By: Iglesia Benson on 08-25-2024 Neutrophils/100 WBC (Bld) 65.4 % 47-70 [facility] Nucleated red blood cell per centageOrdered By: Iglesia Benson on 08-25-2024 Nucleated RBC/100 WBC (Bld) [Ratio] 0 % 0-5 [facility] Platelet countOrdered By: Yinka Benson on 08-25-2024 Platelets (Bld) [#/Vol] 218 10*3/uL 150-450 [facility] Potassium (Unsp spec) [Mass/ Vol]Ordered By: Iglesia Benson on 08-25-2024 Potassium [Moles/Vol] 3.4 mmol/L 3.3-5.1 [facility] Potassium measurement (mass/ volume)Ordered By: Iglesia Benson on 08-25-2024 Potassium (Unsp spec) [Mass/Vol] 3.4 mmol/L 3.3-5.1 [facility] Prothrombin Time w/INRon INR Coag (PPP) [Relative time] 3.2 {INR} Normal [facility] Comment on above: Performed By: #### L 300.3900 ####[facility] [address] [place], [address] PT Coag (PPP) [Time] 33.4 s High 11.7-14.9 [facility] Comment on above: Performed By: #### L 300.3900 ####[facility] [address] [place], [address] Prothrombin timeOrdered By: Iglesia Benson on 08-25-2024 PT Coag (PPP) [Time] 33.4 s High 11.7-14.9 [facility] RBC Auto (Bld) [#/Vol]Ordere d By: Iglesia Benson on 08-25-2024 RBC (Bld) [#/Vol] 5.07 10*6/uL 4.2-5.4 [facility] Serum creatinine measurement (mass/volume)Ordered By: Iglesia Benson on 08-25-2024 Creatinine [Mass/Vol] 1.18 mg/dL 0.70-1.20 [facility] Serum glucose measurement (m ass/volume)Ordered By: Iglesia Benson on 08-25-2024 Glucose [Mass/Vol] 114 mg/dL High 70-99 [facility] Serum or plasma calcium lakshmi urement (mass/volume)Ordered By: Iglesia Benson on 08-25-2024 Calcium [Mass/Vol] 8.5 mg/dL 7.6-11.0 [facility] Serum or plasma urea nitroge n measurement (mass/volume)Ordered By: Iglesia Benson on 08-25-2024 Urea nitrogen [Mass/Vol] 26 mg/dL High 4-19 [facility] Sodium levelOrdered By: Jenniffer Benson on 08-25-2024 Sodium [Moles/Vol] 139 mmol/L 133-145 [facility] White blood cell (WBC) count Ordered By: Iglesia Benson on 08-25-2024 WBC (Bld) [#/Vol] 6.7 10*3/uL 4.4-11.0 [facility] Basic Metabolic Profile (BMP )on 08-24-2024 BUN/CRE 25.5 RATIO High 10-20 [facility] Comment on above: Performed By: #### L 100.0100, L500.2500 ####[facility] [address] [place], [address] Calcium [Mass/Vol] 8.6 mg/dL Normal 7.6-11.0 [facility] Comment on above: Performed By: #### L 100.0100, L500.2500 ####[facility] [address] [place], [address] Chloride [Moles/Vol] 98 mmol/L Normal 98-108 [facility] Comment on above: Performed By: #### L 100.0100, L500.2500 ####[facility] [address] [place], [address] CO2 [Moles/Vol] 25.9 mmol/L Normal 21.0-32.0 [facility] Comment on above: Performed By: #### L 100.0100, L500.2500 ####[facility] [address] [place], [address] Creatinine [Mass/Vol] 1.22 mg/dL High 0.70-1.20 [facility] Comment on above: Performed By: #### L 100.0100, L500.2500 ####[facility] [address] [place], [address] ECRCL 50.97 ml/min Normal 50-250 [facility] Comment on above: Performed By: #### L 100.0100, L500.2500 ####[facility] [address] [place], [address] GAP 14 Normal 5-15 [facility] Comment on above: Performed By: #### L 100.0100, L500.2500 ####[facility] [address] [place], [address] GFR/1.73 sq M.predicted among non-blacks MDRD (S/P/Bld) [Vol rate/Area] 49 mL/min/{1.73_m2} Low >60 [facility] Comment on above: Result Comment: mL/m in/1.73m2 CKD-EPI Creatinine Equation (2020) Performed By: #### L 100.0100, L500.2500 ####[facility] [address] [place], [address] Glucose [Mass/Vol] 115 mg/dL High 70-99 [facility] Comment on above: Performed By: #### L 100.0100, L500.2500 ####[facility] [address] [place], [address] Potassium [Moles/Vol] 2.8 mmol/L Low 3.3-5.1 [facility] Comment on above: Performed By: #### L 100.0100, L500.2500 ####[facility] [address] [place], [address] Sodium [Moles/Vol] 138 mmol/L Normal 133-145 [facility] Comment on above: Performed By: #### L 100.0100, L500.2500 ####[facility] [address] [place], [address] Urea nitrogen [Mass/Vol] 31 mg/dL High 4-19 [facility] Comment on above: Performed By: #### L 100.0100, L500.2500 ####[facility] [address] [place], [address] CBC W/Diff, Automatedon 04-0 5-2025 Absolute Lymph 1.30 X10 3/uL Normal 0.83-4.51 [facility] Comment on above: Performed By: #### L 100.0100, L500.2500 ####[facility] [address] [place], [address] Absolute Neut 4.3 X10 3/uL Normal 2.0-7.7 [facility] Comment on above: Performed By: #### L 100.0100, L500.2500 ####[facility] [address] [place], [address] Basophils/100 WBC (Bld) 0.6 % Normal 0-1 [facility] Comment on above: Performed By: #### L 100.0100, L500.2500 ####[facility] [address] [place], [address] Eosinophils/100 WBC (Bld) 2.1 % Normal 0-5 [facility] Comment on above: Performed By: #### L 100.0100, L500.2500 ####[facility] [address] [place], [address] Erythrocyte distribution width (RBC) [Ratio] 19.7 % High 11.6-14.6 [facility] Comment on above: Performed By: #### L 100.0100, L500.2500 ####[facility] [address] [place], [address] Hematocrit (Bld) [Volume fraction] 33.9 % Low 37-47 [facility] Comment on above: Performed By: #### L 100.0100, L500.2500 ####[facility] [address] [place], [address] Hemoglobin (Bld) [Mass/Vol] 9.7 g/dL Low 12.0-15.0 [facility] Comment on above: Performed By: #### L 100.0100, L500.2500 ####[facility] [address] [place], [address] IG% 0.200 Normal 0.0-0.9 [facility] Comment on above: Result Comment: IG% - Immature Granulocytes (promyelocytes, myelocytes andmetamyelocytes) > 1% indicates that a LEFT SHIFT is Present. Performed By: #### L 100.0100, L500.2500 ####[facility] [address] [place], [address] Lymphocytes/100 WBC (Bld) 20.7 % Normal 19-41 [facility] Comment on above: Performed By: #### L 100.0100, L500.2500 ####[facility] [address] [place], [address] MCH (RBC) [Entitic mass] 20.4 pg Low 27.0-32.0 [facility] Comment on above: Performed By: #### L 100.0100, L500.2500 ####[facility] [address] [place], [address] MCHC (RBC) [Mass/Vol] 28.6 g/dL Low 32-36 [facility] Comment on above: Performed By: #### L 100.0100, L500.2500 ####[facility] [address] [place], [address] MCV (RBC) [Entitic vol] 71.4 fL Low 81-99 [facility] Comment on above: Performed By: #### L 100.0100, L500.2500 ####[facility] [address] [place], [address] Monocytes/100 WBC (Bld) 8.6 % Normal 0-10 [facility] Comment on above: Performed By: #### L 100.0100, L500.2500 ####[facility] [address] [place], [address] Neutrophils/100 WBC (Bld) 67.8 % Normal 47-70 [facility] Comment on above: Performed By: #### L 100.0100, L500.2500 ####[facility] [address] [place], [address] Nucleated RBC (Bld) [#/Vol] 0 10*3/uL Normal 0-5 [facility] Comment on above: Performed By: #### L 100.0100, L500.2500 ####[facility] [address] [place], [address] Platelet mean volume (Bld) [Entitic vol] 10.2 fL Normal 6.2-12.0 [facility] Comment on above: Performed By: #### L 100.0100, L500.2500 ####[facility] [address] [place], [address] Platelets (Bld) [#/Vol] 198 10*3/uL Normal 150-450 [facility] Comment on above: Performed By: #### L 100.0100, L500.2500 ####[facility] [address] [place], [address] RBC (Bld) [#/Vol] 4.75 10*6/uL Normal 4.2-5.4 [facility] Comment on above: Performed By: #### L 100.0100, L500.2500 ####[facility] [address] [place], [address] RDW SD 49.5 fl High 35.1-43.9 [facility] Comment on above: Performed By: #### L 100.0100, L500.2500 ####[facility] [address] [place], [address] WBC (Bld) [#/Vol] 6.3 10*3/uL Normal 4.4-11.0 [facility] Comment on above: Performed By: #### L 100.0100, L500.2500 ####[facility] [address] [place], [address] Magnesiumon 08-24-2024 Magnesium [Mass/Vol] 1.9 mg/dL Normal 1.5-2.2 [facility] Comment on above: Performed By: #### L 501.2300, L501.5200 ####[facility] [address] [place], [address] Magnesium (Unsp spec) [Mass/ Vol]Ordered By: Iglesia Benson on 08-24-2024 Magnesium [Mass/Vol] 1.9 mg/dL 1.5-2.2 [facility] Magnesium measurement (mass/ volume)Ordered By: Iglesia Benson on 08-24-2024 Magnesium (Unsp spec) [Mass/Vol] 1.9 mg/dL 1.5-2.2 [facility] Phosphoruson 08-24-2024 Phosphate [Mass/Vol] 4.7 mg/dL High 2.7-4.5 [facility] Comment on above: Performed By: #### L 501.2300, L501.5200 ####[facility] [address] [place], [address] Potassiumon 08-24-2024 Potassium [Moles/Vol] 3.3 mmol/L Normal 3.3-5.1 [facility] Comment on above: Performed By: #### L 501.5600 ####[facility] [address] [place], [address] Potassium [Moles/Vol] 2.9 mmol/L Low 3.3-5.1 [facility] Comment on above: Performed By: #### L 501.5600 ####[facility] [address] [place], [address] Prothrombin Time w/INRon INR Coag (PPP) [Relative time] 3.4 {INR} Normal [facility] Comment on above: Performed By: #### L 300.3900 ####[facility] [address] [place], [address] PT Coag (PPP) [Time] 35.3 s High 11.7-14.9 [facility] Comment on above: Performed By: #### L 300.3900 ####[facility] [address] [place], [address] Serum phosphorus measurement Ordered By: Iglesia Benson on 08-24-2024 Phosphorus Level 4.7 mg/dL High 2.7-4.5 [facility] Basic Metabolic Profile (BMP )on 08-23-2024 BUN/CRE 21.3 RATIO High 10-20 [facility] Comment on above: Performed By: #### L 100.0100, L500.2500 ####[facility] [address] [place], [address] Calcium [Mass/Vol] 8.7 mg/dL Normal 7.6-11.0 [facility] Comment on above: Performed By: #### L 100.0100, L500.2500 ####[facility] [address] [place], [address] Chloride [Moles/Vol] 100 mmol/L Normal 98-108 [facility] Comment on above: Performed By: #### L 100.0100, L500.2500 ####[facility] [address] [place], [address] CO2 [Moles/Vol] 26.5 mmol/L Normal 21.0-32.0 [facility] Comment on above: Performed By: #### L 100.0100, L500.2500 ####[facility] [address] [place], [address] Creatinine [Mass/Vol] 1.35 mg/dL High 0.70-1.20 [facility] Comment on above: Performed By: #### L 100.0100, L500.2500 ####[facility] [address] [place], [address] ECRCL 46.19 ml/min Low 50-250 [facility] Comment on above: Performed By: #### L 100.0100, L500.2500 ####[facility] [address] [place], [address] GAP 14 Normal 5-15 [facility] Comment on above: Performed By: #### L 100.0100, L500.2500 ####[facility] [address] [place], [address] GFR/1.73 sq M.predicted among non-blacks MDRD (S/P/Bld) [Vol rate/Area] 43 mL/min/{1.73_m2} Low >60 [facility] Comment on above: Result Comment: mL/m in/1.73m2 CKD-EPI Creatinine Equation (2020) Performed By: #### L 100.0100, L500.2500 ####[facility] [address] [place], [address] Glucose [Mass/Vol] 105 mg/dL High 70-99 [facility] Comment on above: Performed By: #### L 100.0100, L500.2500 ####[facility] [address] [place], [address] Potassium [Moles/Vol] 3.3 mmol/L Normal 3.3-5.1 [facility] Comment on above: Performed By: #### L 100.0100, L500.2500 ####[facility] [address] [place], [address] Sodium [Moles/Vol] 141 mmol/L Normal 133-145 [facility] Comment on above: Performed By: #### L 100.0100, L500.2500 ####[facility] [address] [place], [address] Urea nitrogen [Mass/Vol] 29 mg/dL High 4-19 [facility] Comment on above: Performed By: #### L 100.0100, L500.2500 ####[facility] [address] [place], [address] CBC W/Diff, Automatedon 04-0 4-2024 Absolute Lymph 1.51 X10 3/uL Normal 0.83-4.51 [facility] Comment on above: Performed By: #### L 100.0100, L500.2500 ####[facility] [address] [place], [address] Absolute Neut 4.7 X10 3/uL Normal 2.0-7.7 [facility] Comment on above: Performed By: #### L 100.0100, L500.2500 ####[facility] [address] [place], [address] Basophils/100 WBC (Bld) 0.7 % Normal 0-1 [facility] Comment on above: Performed By: #### L 100.0100, L500.2500 ####[facility] [address] [place], [address] Eosinophils/100 WBC (Bld) 2.2 % Normal 0-5 [facility] Comment on above: Performed By: #### L 100.0100, L500.2500 ####[facility] [address] [place], [address] Erythrocyte distribution width (RBC) [Ratio] 20.0 % High 11.6-14.6 [facility] Comment on above: Performed By: #### L 100.0100, L500.2500 ####[facility] [address] [place], [address] Hematocrit (Bld) [Volume fraction] 35.7 % Low 37-47 [facility] Comment on above: Performed By: #### L 100.0100, L500.2500 ####[facility] [address] [place], [address] Hemoglobin (Bld) [Mass/Vol] 9.9 g/dL Low 12.0-15.0 [facility] Comment on above: Performed By: #### L 100.0100, L500.2500 ####[facility] [address] [place], [address] IG% 0.300 Normal 0.0-0.9 [facility] Comment on above: Result Comment: IG% - Immature Granulocytes (promyelocytes, myelocytes andmetamyelocytes) > 1% indicates that a LEFT SHIFT is Present. Performed By: #### L 100.0100, L500.2500 ####[facility] [address] [place], [address] Lymphocytes/100 WBC (Bld) 21.7 % Normal 19-41 [facility] Comment on above: Performed By: #### L 100.0100, L500.2500 ####[facility] [address] [place], [address] MCH (RBC) [Entitic mass] 20.3 pg Low 27.0-32.0 [facility] Comment on above: Performed By: #### L 100.0100, L500.2500 ####[facility] [address] [place], [address] MCHC (RBC) [Mass/Vol] 27.7 g/dL Low 32-36 [facility] Comment on above: Performed By: #### L 100.0100, L500.2500 ####[facility] [address] [place] [place], [address] MCV (RBC) [Entitic vol] 73.2 fL Low 81-99 [facility] Comment on above: Performed By: #### L 100.0100, L500.2500 ####[facility] [address] [place], [address] Monocytes/100 WBC (Bld) 7.9 % Normal 0-10 [facility] Comment on above: Performed By: #### L 100.0100, L500.2500 ####[facility] [address] [place], [address] Neutrophils/100 WBC (Bld) 67.2 % Normal 47-70 [facility] Comment on above: Performed By: #### L 100.0100, L500.2500 ####[facility] [address] [place], [address] Nucleated RBC (Bld) [#/Vol] 0 10*3/uL Normal 0-5 [facility] Comment on above: Performed By: #### L 100.0100, L500.2500 ####[facility] [address] [place], [address] Platelet mean volume (Bld) [Entitic vol] 9.9 fL Normal 6.2-12.0 [facility] Comment on above: Performed By: #### L 100.0100, L500.2500 ####[facility] [address] [place], [address] Platelets (Bld) [#/Vol] 199 10*3/uL Normal 150-450 [facility] Comment on above: Performed By: #### L 100.0100, L500.2500 ####[facility] [address] [place] [place], [address] RBC (Bld) [#/Vol] 4.88 10*6/uL Normal 4.2-5.4 [facility] Comment on above: Performed By: #### L 100.0100, L500.2500 ####[facility] [address] [place], [address] RDW SD 50.6 fl High 35.1-43.9 [facility] Comment on above: Performed By: #### L 100.0100, L500.2500 ####[facility] [address] [place], [address] WBC (Bld) [#/Vol] 7.0 10*3/uL Normal 4.4-11.0 [facility] Comment on above: Performed By: #### L 100.0100, L500.2500 ####[facility] [address] [place], [address] Prothrombin Time w/INRon INR Coag (PPP) [Relative time] 2.6 {INR} Normal [facility] Comment on above: Performed By: #### L 300.3900 ####[facility] [address] [place], [address] PT Coag (PPP) [Time] 28.7 s High 11.7-14.9 [facility] Comment on above: Performed By: #### L 300.3900 ####[facility] [address] [place] [place], [address] Basic Metabolic Profile (BMP )on 08-22-2024 BUN/CRE 18.8 RATIO Normal 10-20 [facility] Comment on above: Performed By: #### L 500.2500, L100.0100, L300.3900, L500.4100, L501.9520 ####[facility] [address] [place], [address] Calcium [Mass/Vol] 8.3 mg/dL Normal 7.6-11.0 [facility] Comment on above: Performed By: #### L 500.2500, L100.0100, L300.3900, L500.4100, L501.9520 ####[facility] [address] [place], [address] Chloride [Moles/Vol] 104 mmol/L Normal 98-108 [facility] Comment on above: Performed By: #### L 500.2500, L100.0100, L300.3900, L500.4100, L501.9520 ####[facility] [address] [place], [address] CO2 [Moles/Vol] 25.1 mmol/L Normal 21.0-32.0 [facility] Comment on above: Performed By: #### L 500.2500, L100.0100, L300.3900, L500.4100, L501.9520 ####[facility] [address] [place], [address] Creatinine [Mass/Vol] 1.19 mg/dL Normal 0.70-1.20 [facility] Comment on above: Performed By: #### L 500.2500, L100.0100, L300.3900, L500.4100, L501.9520 ####[facility] [address] [place], [address] ECRCL 52.90 ml/min Normal 50-250 [facility] Comment on above: Performed By: #### L 500.2500, L100.0100, L300.3900, L500.4100, L501.9520 ####[facility] [address] [place], [address] GAP 12 Normal 5-15 [facility] Comment on above: Performed By: #### L 500.2500, L100.0100, L300.3900, L500.4100, L501.9520 ####[facility] [address] [place], [address] GFR/1.73 sq M.predicted among non-blacks MDRD (S/P/Bld) [Vol rate/Area] 50 mL/min/{1.73_m2} Low >60 [facility] Comment on above: Result Comment: mL/m in/1.73m2 CKD-EPI Creatinine Equation (2020) Performed By: #### L 500.2500, L100.0100, L300.3900, L500.4100, L501.9520 ####[facility] [address] [place], [address] Glucose [Mass/Vol] 104 mg/dL High 70-99 [facility] Comment on above: Performed By: #### L 500.2500, L100.0100, L300.3900, L500.4100, L501.9520 ####[facility] [address] [place], [address] Potassium [Moles/Vol] 3.7 mmol/L Normal 3.3-5.1 [facility] Comment on above: Performed By: #### L 500.2500, L100.0100, L300.3900, L500.4100, L501.9520 ####[facility] [address] [place], [address] Sodium [Moles/Vol] 140 mmol/L Normal 133-145 [facility] Comment on above: Performed By: #### L 500.2500, L100.0100, L300.3900, L500.4100, L501.9520 ####[facility] [address] [place], [address] Urea nitrogen [Mass/Vol] 22 mg/dL High 4-19 [facility] Comment on above: Performed By: #### L 500.2500, L100.0100, L300.3900, L500.4100, L501.9520 ####[facility] [address] [place], [address] CBC W/Diff, Automatedon 04-0 -2024 Absolute Lymph 1.70 X10 3/uL Normal 0.83-4.51 [facility] Comment on above: Performed By: #### L 500.2500, L100.0100, L300.3900, L500.4100, L501.9520 ####[facility] [address] [place], [address] Absolute Neut 4.7 X10 3/uL Normal 2.0-7.7 [facility] Comment on above: Performed By: #### L 500.2500, L100.0100, L300.3900, L500.4100, L501.9520 ####[facility] [address] [place], [address] Basophils/100 WBC (Bld) 1.0 % Normal 0-1 [facility] Comment on above: Performed By: #### L 500.2500, L100.0100, L300.3900, L500.4100, L501.9520 ####[facility] [address] [place], [address] Eosinophils/100 WBC (Bld) 1.8 % Normal 0-5 [facility] Comment on above: Performed By: #### L 500.2500, L100.0100, L300.3900, L500.4100, L501.9520 ####[facility] [address] [place], [address] Erythrocyte distribution width (RBC) [Ratio] 19.8 % High 11.6-14.6 [facility] Comment on above: Performed By: #### L 500.2500, L100.0100, L300.3900, L500.4100, L501.9520 ####[facility] [address] [place], [address] Hematocrit (Bld) [Volume fraction] 33.2 % Low 37-47 [facility] Comment on above: Performed By: #### L 500.2500, L100.0100, L300.3900, L500.4100, L501.9520 ####[facility] [address] [place], [address] Hemoglobin (Bld) [Mass/Vol] 9.5 g/dL Low 12.0-15.0 [facility] Comment on above: Performed By: #### L 500.2500, L100.0100, L300.3900, L500.4100, L501.9520 ####[facility] [address] [place], [address] IG% 0.500 Normal 0.0-0.9 [facility] Comment on above: Result Comment: IG% - Immature Granulocytes (promyelocytes, myelocytes andmetamyelocytes) > 1% indicates that a LEFT SHIFT is Present. Performed By: #### L 500.2500, L100.0100, L300.3900, L500.4100, L501.9520 ####[facility] [address] [place], [address] Lymphocytes/100 WBC (Bld) 23.2 % Normal 19-41 [facility] Comment on above: Performed By: #### L 500.2500, L100.0100, L300.3900, L500.4100, L501.9520 ####[facility] [address] [place], [address] MCH (RBC) [Entitic mass] 20.4 pg Low 27.0-32.0 [facility] Comment on above: Performed By: #### L 500.2500, L100.0100, L300.3900, L500.4100, L501.9520 ####[facility] [address] [place], [address] MCHC (RBC) [Mass/Vol] 28.6 g/dL Low 32-36 [facility] Comment on above: Performed By: #### L 500.2500, L100.0100, L300.3900, L500.4100, L501.9520 ####[facility] [address] [place], [address] MCV (RBC) [Entitic vol] 71.2 fL Low 81-99 [facility] Comment on above: Performed By: #### L 500.2500, L100.0100, L300.3900, L500.4100, L501.9520 ####[facility] [address] [place], [address] Monocytes/100 WBC (Bld) 10.0 % Normal 0-10 [facility] Comment on above: Performed By: #### L 500.2500, L100.0100, L300.3900, L500.4100, L501.9520 ####[facility] [address] [place], [address] Neutrophils/100 WBC (Bld) 63.5 % Normal 47-70 [facility] Comment on above: Performed By: #### L 500.2500, L100.0100, L300.3900, L500.4100, L501.9520 ####[facility] [address] [place], [address] Nucleated RBC (Bld) [#/Vol] 0 10*3/uL Normal 0-5 [facility] Comment on above: Performed By: #### L 500.2500, L100.0100, L300.3900, L500.4100, L501.9520 ####[facility] [address] [place], [address] Platelet mean volume (Bld) [Entitic vol] 9.4 fL Normal 6.2-12.0 [facility] Comment on above: Performed By: #### L 500.2500, L100.0100, L300.3900, L500.4100, L501.9520 ####[facility] [address] [place], [address] Platelets (Bld) [#/Vol] 197 10*3/uL Normal 150-450 [facility] Comment on above: Performed By: #### L 500.2500, L100.0100, L300.3900, L500.4100, L501.9520 ####[facility] [address] [place], [address] RBC (Bld) [#/Vol] 4.66 10*6/uL Normal 4.2-5.4 [facility] Comment on above: Performed By: #### L 500.2500, L100.0100, L300.3900, L500.4100, L501.9520 ####[facility] [address] [place], [address] RDW SD 49.0 fl High 35.1-43.9 [facility] Comment on above: Performed By: #### L 500.2500, L100.0100, L300.3900, L500.4100, L501.9520 ####[facility] [address] [place], [address] WBC (Bld) [#/Vol] 7.3 10*3/uL Normal 4.4-11.0 [facility] Comment on above: Performed By: #### L 500.2500, L100.0100, L300.3900, L500.4100, L501.9520 ####[facility] [address] [place], [address] Calculated very low density lipoprotein (VLDL) cholesterol measurementOrdered By: Iglesia Benson on 08-22-2024 Calculated very low density lipoprotein (VLDL) cholesterol measurement 15 mg/dL -40 [facility] VLDL Cholesterol 15 mg/dL -40 [facility] Electrocardiogram reportOrde red By: Param Dominguez on 08-22-2024 EKG study [facility] [address] [place] [address] 12 Lead EKG 08/21/24 1114 MR#: [id number] Acct: [id number] Name: CLARIBEL ALLISON Rep #:[id number] : 1955 69 From: Param rodriguez MD [...] limb lead reversal Reconfirmed by Param Dominguez ([id number]), state editor SHAMAR ALLEN ([id number]) on 57:55:32 AM Referred By: Confirmed By: Param Dominguez 08/22/24 0755 Date _ Param Dominguez MD CC: Dr. Abdulaziz Ackerman MD; Dr. Iglesia Benson MD; Dr. Skyler Watkins MD ~ Signed [facility] Work Phone: LDL calc ser/plasOrdered By: Iglesia Benson on 08-22-2024 Cholesterol in LDL [Mass/Vol] 64 mg/dL [facility] Comment on above: Paanakzmgs=248-649 m g/dL & Higher Wqfi=207 mg/dL or greater LDL Cholesterol, Calculated 64 mg/dL [facility] Comment on above: Wtryqebpeb=340-994 m g/dL & Higher Rmjr=711 mg/dL or greater Lipid Profileon 08-22-2024 CHOL:HDL 4.09 Normal [facility] Comment on above: Performed By: #### L 500.2500, L100.0100, L300.3900, L500.4100, L501.9520 ####[facility] [address] [place], [address] Cholesterol [Mass/Vol] 105 mg/dL Normal <=200 [facility] Comment on above: Result Comment: Chol esterol level, Desirable <200 mg/dLBorderline high cholesterol 200-239 mg/dLHigh cholesterol >=240 mg/dLRecommendations of the NCEP Adult Treatment Panel for thefollowing risk-cutoff thresholds for the [place] Americanpulation. Performed By: #### L 500.2500, L100.0100, L300.3900, L500.4100, L501.9520 ####[facility] [address] [place], [address] Cholesterol in HDL [Mass/Vol] 26 mg/dL Low [facility] Comment on above: Result Comment: Phylicia onal Cholesterol Education Program (NCEP) guidelines:<40 mg/dL: Low HDL-cholesterol (major risk factor for CHD)>= 60 mg/dL: High HDL-cholesterol (negative risk factor forCHD)HDL-cholesterol is affected by a number of factors, e.g.smoking, exercise, hormones, sex and age. Performed By: #### L 500.2500, L100.0100, L300.3900, L500.4100, L501.9520 ####[facility] [address] [place], [address] Cholesterol in LDL [Mass/Vol] 64 mg/dL Normal [facility] Comment on above: Result Comment: Bord wpbulv=093-462 mg/dL Higher Pqyk=570 mg/dL or greater Performed By: #### L 500.2500, L100.0100, L300.3900, L500.4100, L501.9520 ####[facility] [address] [place], [address] Cholesterol in VLDL [Mass/Vol] 15 mg/dL Normal 5-40 [facility] Comment on above: Performed By: #### L 500.2500, L100.0100, L300.3900, L500.4100, L501.9520 ####[facility] [address] [place], [address] Triglyceride [Mass/Vol] 74 mg/dL Normal [facility] Comment on above: Result Comment: The drugs N-Acetylcysteine and Metamizole may falselydepress this assay.Normal range: <150 mg/dLBorderline High: 150-199 mg/dLHigh: 200-499 mg/dLVery High: >500 mg/dL Performed By: #### L 500.2500, L100.0100, L300.3900, L500.4100, L501.9520 ####[facility] [address] [place], [place], [address] Prothrombin Time w/INRon INR Coag (PPP) [Relative time] 1.9 {INR} Normal [facility] Comment on above: Performed By: #### L 500.2500, L100.0100, L300.3900, L500.4100, L501.9520 ####[facility] [address] [place], [address] PT Coag (PPP) [Time] 22.6 s High 11.7-14.9 [facility] Comment on above: Performed By: #### L 500.2500, L100.0100, L300.3900, L500.4100, L501.9520 ####[facility] [address] [place], [place], [address] Screening total cholesterol/ high density lipoprotein (HDL) cholesterol ratioOrdered By: Iglesia Benson on 08-22-2024 Cholesterol.total/Choles terol in HDL [Mass ratio] 4.09 {ratio} [facility] Serum or plasma cholesterol in HDL measurement (mass/volume)Ordered By: Iglesia Benson on 08-22-2024 Cholesterol in HDL [Mass/Vol] 26 mg/dL Low >40 [facility] Comment on above: National Cholesterol Education Program (NCEP) guidelines:<40 mg/dL: Low HDL-cholesterol (major risk factor for CHD)>= 60 mg/dL: High HDL-cholesterol (negative risk factor for CHD)HDL-cholesterol is affected by a number of factors, e.g. smoking, exercise, hormones, sex and age. Serum or plasma cholesterol measurement (mass/volume)Ordered By: Iglesia Benson on 08-22-2024 Cholesterol [Mass/Vol] 105 mg/dL <201 [facility] Comment on above: Cholesterol level, D esirable <200 mg/dLBorderline high cholesterol 200-239 mg/dLHigh cholesterol >=240 mg/dLRecommendations of the NCEP Adult Treatment Panel for the following risk-cutoff thresholds for the [place] population. TSH DL <= 0.005 mIU/L QnOrde red By: Iglesia Benson on 08-22-2024 Thyroid Stimulating Hormone (TSH) 3.580 uIU/mL 0.300-4.200 [facility] TSH Qn 3.580 uIU/mL 0.300-4.200 [facility] Thyroid Stim Hormone (TSH)on 08-22-2024 TSH 3.580 uIU/mL Normal 0.300-4.200 [facility] Comment on above: Performed By: #### L 500.2500, L100.0100, L300.3900, L500.4100, L501.9520 ####[facility] [address] [place], [place], [address] Triglycerides measurementOrd ered By: Iglesia Benson on 08-22-2024 Triglyceride [Mass/Vol] 74 mg/dL <199 [facility] Comment on above: The drugs N-Acetylcy steine and Metamizole may falsely depress this assay. Normal range: <150 mg/dLBorderline High: 150-199 mg/dLHigh: 200-499 mg/dLVery High: >500 mg/dL 12 Lead EKGon 08-21-2024 12 Lead EKG Normal [facility] Absolute neutrophil countOrd ered By: Skyler Watkins on 08-21-2024 Neutrophils (Bld) [#/Vol] 6.1 10*3/uL 2.0-7.7 [facility] Anion gap in Serum or Plasma Ordered By: Skyler Watkins on 08-21-2024 Anion gap [Moles/Vol] 12 mmol/L 5-15 [facility] BUN/creatinine ratioOrdered By: Skyler Watkins on 08-21-2024 Urea nitrogen/Creatinine [Mass ratio] 21.7 mg/mg High 10-20 [facility] Basophil percentageOrdered B y: Skyler Watkins on 08-21-2024 Basophils/100 WBC (Bld) 0.8 % 0-1 [facility] Bilirubin, totalOrdered By: Skylerkaia Watkins on 08-21-2024 Bilirubin [Mass/Vol] 0.84 mg/dL 0.00-1.30 [facility] CBC W/Diff, Automatedon Absolute Lymph 1.20 X10 3/uL Normal 0.83-4.51 [facility] Comment on above: Performed By: #### L 500.4050, L300.3900, L501.4021, L503.7505, L100.0100 ####[facility] [address] [place], [address] Absolute Neut 6.1 X10 3/uL Normal 2.0-7.7 [facility] Comment on above: Performed By: #### L 500.4050, L300.3900, L501.4021, L503.7505, L100.0100 ####[facility] [address] [place], [address] Basophils/100 WBC (Bld) 0.8 % Normal 0-1 [facility] Comment on above: Performed By: #### L 500.4050, L300.3900, L501.4021, L503.7505, L100.0100 ####[facility] [address] [place], [address] Eosinophils/100 WBC (Bld) 1.0 % Normal 0-5 [facility] Comment on above: Performed By: #### L 500.4050, L300.3900, L501.4021, L503.7505, L100.0100 ####[facility] [address] [place], [address] Erythrocyte distribution width (RBC) [Ratio] 19.6 % High 11.6-14.6 [facility] Comment on above: Performed By: #### L 500.4050, L300.3900, L501.4021, L503.7505, L100.0100 ####[facility] [address] [place], [address] Hematocrit (Bld) [Volume fraction] 34.9 % Low 37-47 [facility] Comment on above: Performed By: #### L 500.4050, L300.3900, L501.4021, L503.7505, L100.0100 ####[facility] [address] [place], [address] Hemoglobin (Bld) [Mass/Vol] 9.8 g/dL Low 12.0-15.0 [facility] Comment on above: Performed By: #### L 500.4050, L300.3900, L501.4021, L503.7505, L100.0100 ####[facility] [address] [place], [address] IG% 0.400 Normal 0.0-0.9 [facility] Comment on above: Result Comment: IG% - Immature Granulocytes (promyelocytes, myelocytes andmetamyelocytes) > 1% indicates that a LEFT SHIFT is Present. Performed By: #### L 500.4050, L300.3900, L501.4021, L503.7505, L100.0100 ####[facility] [address] [place], [address] Lymphocytes/100 WBC (Bld) 15.3 % Low 19-41 [facility] Comment on above: Performed By: #### L 500.4050, L300.3900, L501.4021, L503.7505, L100.0100 ####[facility] [address] [place], [address] MCH (RBC) [Entitic mass] 20.2 pg Low 27.0-32.0 [facility] Comment on above: Performed By: #### L 500.4050, L300.3900, L501.4021, L503.7505, L100.0100 ####[facility] [address] [place], [address] MCHC (RBC) [Mass/Vol] 28.1 g/dL Low 32-36 [facility] Comment on above: Performed By: #### L 500.4050, L300.3900, L501.4021, L503.7505, L100.0100 ####[facility] [address] [place], [address] MCV (RBC) [Entitic vol] 72.0 fL Low 81-99 [facility] Comment on above: Performed By: #### L 500.4050, L300.3900, L501.4021, L503.7505, L100.0100 ####[facility] [address] [place], [address] Monocytes/100 WBC (Bld) 5.2 % Normal 0-10 [facility] Comment on above: Performed By: #### L 500.4050, L300.3900, L501.4021, L503.7505, L100.0100 ####[facility] [address] [place], [address] Neutrophils/100 WBC (Bld) 77.3 % High 47-70 [facility] Comment on above: Performed By: #### L 500.4050, L300.3900, L501.4021, L503.7505, L100.0100 ####[facility] [address] [place], [address] Nucleated RBC (Bld) [#/Vol] 0 10*3/uL Normal 0-5 [facility] Comment on above: Performed By: #### L 500.4050, L300.3900, L501.4021, L503.7505, L100.0100 ####[facility] [address] [place], [address] Platelet mean volume (Bld) [Entitic vol] 9.2 fL Normal 6.2-12.0 [facility] Comment on above: Performed By: #### L 500.4050, L300.3900, L501.4021, L503.7505, L100.0100 ####[facility] [address] [place], [address] Platelets (Bld) [#/Vol] 189 10*3/uL Normal 150-450 [facility] Comment on above: Performed By: #### L 500.4050, L300.3900, L501.4021, L503.7505, L100.0100 ####[facility] [address] [place], [address] RBC (Bld) [#/Vol] 4.85 10*6/uL Normal 4.2-5.4 [facility] Comment on above: Performed By: #### L 500.4050, L300.3900, L501.4021, L503.7505, L100.0100 ####[facility] [address] [place], [address] RDW SD 49.1 fl High 35.1-43.9 [facility] Comment on above: Performed By: #### L 500.4050, L300.3900, L501.4021, L503.7505, L100.0100 ####[facility] [address] [place], [address] WBC (Bld) [#/Vol] 7.9 10*3/uL Normal 4.4-11.0 [facility] Comment on above: Performed By: #### L 500.4050, L300.3900, L501.4021, L503.7505, L100.0100 ####[facility] [address] [place], [address] Carbon dioxide, total [Moles /volume] in Central venous bloodOrdered By: Skyler Watkins on 08-21-2024 CO2 [Moles/Vol] 21.3 mmol/L 21.0-32.0 [facility] Chest PA and Lateralon 08-21 Chest PA and Lateral Normal [facility] Chloride assayOrdered By: Ug o Watkins on 08-21-2024 Chloride [Moles/Vol] 105 mmol/L 98-108 [facility] Comprehensive Metabolic Prof ilon 08-21-2024 Albumin [Mass/Vol] 3.6 g/dL Normal 3.4-4.8 [facility] Comment on above: Performed By: #### L 500.4050, L300.3900, L501.4021, L503.7505, L100.0100 ####[facility] [address] [place], [address] Albumin/Globulin [Mass ratio] 1.2 {ratio} Normal 0.9-2.4 [facility] Comment on above: Performed By: #### L 500.4050, L300.3900, L501.4021, L503.7505, L100.0100 ####[facility] [address] [place], [address] ALK PHOS 84 U/L Normal 35-104 [facility] Comment on above: Performed By: #### L 500.4050, L300.3900, L501.4021, L503.7505, L100.0100 ####[facility] [address] [place], [address] ALT [Catalytic activity/Vol] 27 U/L Normal <=34 [facility] Comment on above: Performed By: #### L 500.4050, L300.3900, L501.4021, L503.7505, L100.0100 ####[facility] [address] [place], [address] AST [Catalytic activity/Vol] 38 U/L High <=31 [facility] Comment on above: Performed By: #### L 500.4050, L300.3900, L501.4021, L503.7505, L100.0100 ####[facility] [address] [place], [address] Bilirubin [Mass/Vol] 0.84 mg/dL Normal 0.00-1.30 [facility] Comment on above: Performed By: #### L 500.4050, L300.3900, L501.4021, L503.7505, L100.0100 ####[facility] [address] [place], [address] BUN/CRE 21.7 RATIO High 10-20 [facility] Comment on above: Performed By: #### L 500.4050, L300.3900, L501.4021, L503.7505, L100.0100 ####[facility] [address] [place], [address] Calcium [Mass/Vol] 8.6 mg/dL Normal 7.6-11.0 [facility] Comment on above: Performed By: #### L 500.4050, L300.3900, L501.4021, L503.7505, L100.0100 ####[facility] [address] [place], [address] Chloride [Moles/Vol] 105 mmol/L Normal 98-108 [facility] Comment on above: Performed By: #### L 500.4050, L300.3900, L501.4021, L503.7505, L100.0100 ####[facility] [address] [place], [address] CO2 [Moles/Vol] 21.3 mmol/L Normal 21.0-32.0 [facility] Comment on above: Performed By: #### L 500.4050, L300.3900, L501.4021, L503.7505, L100.0100 ####[facility] [address] [place], [address] Creatinine [Mass/Vol] 0.87 mg/dL Normal 0.70-1.20 [facility] Comment on above: Performed By: #### L 500.4050, L300.3900, L501.4021, L503.7505, L100.0100 ####[facility] [address] [place], [address] ECRCL 73.62 ml/min Normal 50-250 [facility] Comment on above: Performed By: #### L 500.4050, L300.3900, L501.4021, L503.7505, L100.0100 ####[facility] [address] [place], [address] GAP 12 Normal 5-15 [facility] Comment on above: Performed By: #### L 500.4050, L300.3900, L501.4021, L503.7505, L100.0100 ####[facility] [address] [place], [address] GFR/1.73 sq M.predicted among non-blacks MDRD (S/P/Bld) [Vol rate/Area] 73 mL/min/{1.73_m2} Normal >60 [facility] Comment on above: Result Comment: mL/m in/1.73m2 CKD-EPI Creatinine Equation (2020) Performed By: #### L 500.4050, L300.3900, L501.4021, L503.7505, L100.0100 ####[facility] [address] [place], [address] Globulin (S) [Mass/Vol] 2.9 g/dL Normal 2.2-4.2 [facility] Comment on above: Performed By: #### L 500.4050, L300.3900, L501.4021, L503.7505, L100.0100 ####[facility] [address] [place], [address] Glucose [Mass/Vol] 166 mg/dL High 70-99 [facility] Comment on above: Performed By: #### L 500.4050, L300.3900, L501.4021, L503.7505, L100.0100 ####[facility] [address] [place], [address] Potassium [Moles/Vol] 3.9 mmol/L Normal 3.3-5.1 [facility] Comment on above: Performed By: #### L 500.4050, L300.3900, L501.4021, L503.7505, L100.0100 ####[facility] [address] [place], [address] Sodium [Moles/Vol] 139 mmol/L Normal 133-145 [facility] Comment on above: Performed By: #### L 500.4050, L300.3900, L501.4021, L503.7505, L100.0100 ####[facility] [address] [place], [address] T PROT 6.5 g/dL Normal 5.9-8.4 [facility] Comment on above: Performed By: #### L 500.4050, L300.3900, L501.4021, L503.7505, L100.0100 ####[facility] [address] [place], [address] Urea nitrogen [Mass/Vol] 19 mg/dL Normal 4-19 [facility] Comment on above: Performed By: #### L 500.4050, L300.3900, L501.4021, L503.7505, L100.0100 ####[facility] [address] [place], [address] Consultation - Cardiologyon 08-21-2024 Consultation - Cardiology Normal [facility] Echo Completeon 08-21-2024 Echo Complete Normal [facility] Echocardiogram study reportO rdered By: Jamal Munoz on 08-21-2024 Study report [facility] [address] [place] [address] Echo Complete 08/21/24 1501 MR#: [id number] Acct: [id number] Name: CLARIBEL ALLISON Rep #:[id number] : 1955 69 From: Jamal Flynn Attending [...] ml EF(MOD-sp4): 30.8 % EF(sp4-el): 30.4 % __ SV(MOD-sp4): 34.1 ml SV(sp4-el): 34.5 ml [...] Ackerman Performed By: Mason Reyes RCS 08/21/24 9811 Date _ Jamal Munoz MD CC: Dr. Abdulaziz Ackerman MD; Dr. Iglesia Benson MD ~ Date Dictated: 08/21/24 1501 Date Transcribed: 08/21/24 1630 Densitometrist: Signed [facility] Work Phone: Emergency Department Summary on 08-21-2024 Emergency Department Summary Normal [facility] Eosinophil percentageOrdered By: Skyler Watkins on 08-21-2024 Eosinophils/100 WBC (Bld) 1.0 % 0-5 [facility] Erythrocyte distribution wid th (RBC) [Ratio]Ordered By: Skylerkaai Watkins on 08-21-2024 Erythrocyte distribution width (RBC) [Entitic vol] 49.1 fL High 35.1-43.9 [facility] Erythrocyte distribution wid th ratioOrdered By: [facility] 08-[facility]-2024 Erythrocyte distribution width (RBC) [Ratio] 19.6 % High 11.6-14.6 [facility] Estimation of creatinine jose aranceOrdered By: Skyler Watkins on 08-21-2024 Estimated Creatinine Clearance Calc 73.62 ml/min 50-250 [facility] GFR/1.73 sq M.predicted romelia g non-blacks MDRD (S/P/Bld) [Vol rate/Area]Ordered By: Skyler Watkins on 08-21-2024 Estimated GFR (MDRD) Non-Af Amer 73 >60 [facility] Comment on above: mL/min/1.73m2 CKD-EP I Creatinine Equation (2020) H AND P Exam - Hospitaliston 08-21-2024 H&P Exam - Hospitalist Normal [facility] Hematocrit Auto (Bld) [Volum e fraction]Ordered By: Skyler Watkins on 08-21-2024 Hematocrit (Bld) [Volume fraction] 34.9 % Low 37-47 [facility] Hemoglobin measurementOrdere d By: Skylerkaia Watkins on 08-21-2024 Hemoglobin (Bld) [Mass/Vol] 9.8 g/dL Low 12.0-15.0 [facility] Immature granulocytes/100 WB C Auto (Bld)Ordered By: Skylerakia Watkins on 08-21-2024 Immature granulocytes/100 WBC (Bld) 0.400 % 0.0-0.9 [facility] Comment on above: IG% - Immature Granu locytes (promyelocytes, myelocytes and metamyelocytes) > 1% indicates that a LEFT SHIFT is Present. International normalized rat io (INR) calculationOrdered By: Skyler Watkins on 08-21-2024 INR Coag (Bld) [Relative time] 1.8 {INR} [facility] L499.0042on 08-21-2024 Trop T High Sen 44 ng/L High <=14 [facility] Comment on above: Performed By: #### L 499.0042 ####[facility] [address] [place], [address] L499.0043on 08-21-2024 Trop T High Sen 45 ng/L High <=14 [facility] Comment on above: Performed By: #### L 499.0043 ####[facility] [address] [place], [place], [address] L501.4021on 08-21-2024 Trop T High Sen 36 ng/L High <=14 [facility] Comment on above: Performed By: #### L 500.4050, L300.3900, L501.4021, L503.7505, L100.0100 ####[facility] [address] [place], [address] L503.7505on 08-21-2024 Natriuretic peptide B (Bld) [Mass/Vol] 3787 pg/mL High <=900 [facility] Comment on above: Result Comment: Hear t Failure Unlikely: < 300 pg/mLHeart Failure Likely< 50 Years: > 450 pg/mL50-75 Years: > 900 pg/mL>75 Years: > 1800 pg/mL Performed By: #### L 500.4050, L300.3900, L501.4021, L503.7505, L100.0100 ####[facility] [address] [place], [place], [id number] Laboratory - Chemistry and C hemistry - challengeOrdered By: Skyler Watkins on 08-21-2024 AST [Catalytic activity/Vol] 38 U/L High <32 [facility] Natriuretic peptide B (Bld) [Mass/Vol] 3787 pg/mL High <900 [facility] Comment on above: Heart Failure Unlike ly: < 300 pg/mLHeart Failure Likely< 50 Years: > 450 pg/mL50-75 Years: > 900 pg/mL>75 Years: > 1800 pg/mL Lymphocytes Auto (Unsp spec) [#/Vol]Ordered By: Skyler Watkins on 08-21-2024 Lymphocytes (Bld) [#/Vol] 1.20 10*3/uL 0.83-4.51 [facility] Lymphocytes/100 WBC Auto (Un sp spec)Ordered By: Skyler Watkins on 08-21-2024 Lymphocytes/100 WBC (Bld) 15.3 % Low 19-41 [facility] MCV (mean corpuscular volume ) determinationOrdered By: Skyler Watkins on 08-21-2024 MCV (RBC) [Entitic vol] 72.0 fL Low 81-99 [facility] Magnesiumon 08-21-2024 Magnesium [Mass/Vol] 1.8 mg/dL Normal 1.5-2.2 [facility] Comment on above: Performed By: #### L 501.0200, L300.5110 ####[facility] [address] [place], [place], [id number] Magnesium (Unsp spec) [Mass/ Vol]Ordered By: Iglesia Benson on 08-21-2024 Magnesium [Mass/Vol] 1.8 mg/dL 1.5-2.2 [facility] Mean corpuscular hemoglobin (MCH) determinationOrdered By: Skylerkaia Watkins on 08-21-2024 MCH (RBC) [Entitic mass] 20.2 pg Low 27.0-32.0 [facility] Mean corpuscular hemoglobin concentration (MCHC) determinationOrdered By: Skylerkaia Watkins on 08-21-2024 MCHC (RBC) [Mass/Vol] 28.1 g/dL Low 32-36 [facility] Mean platelet volume determi nationOrdered By: Skyler Watkins on 08-21-2024 Platelet mean volume (Bld) [Entitic vol] 9.2 fL 6.2-12.0 [facility] Monocyte percentageOrdered B y: Skylerkaia Watkins on 08-21-2024 Monocytes/100 WBC (Bld) 5.2 % 0-10 [facility] Neutrophil percentageOrdered By: Skylerkaia Watkins on 08-21-2024 Neutrophils/100 WBC (Bld) 77.3 % High 47-70 [facility] No Panel InformationOrdered By: Skyler Watkins on 08-21-2024 Troponin T High Sensitivity 36 ng/L High <14 [facility] 36 ng/L High <14 [facility] 38 U/L High <32 [facility] 3787 pg/mL High <900 [facility] Nucleated red blood cell per centageOrdered By: Skyler Watkins on 08-21-2024 Nucleated RBC/100 WBC (Bld) [Ratio] 0 % 0-5 [facility] Phosphoruson 08-21-2024 Phosphate [Mass/Vol] 2.9 mg/dL Normal 2.7-4.5 [facility] Comment on above: Performed By: #### L 982.4240 ####[facility] [address] [place], [address] Platelet countOrdered By: Marc Watkins on 08-21-2024 Platelets (Bld) [#/Vol] 189 10*3/uL 150-450 [facility] Potassium (Unsp spec) [Mass/ Vol]Ordered By: Skyler Craveno on 08-21-2024 Potassium [Moles/Vol] 3.9 mmol/L 3.3-5.1 [facility] Prothrombin Time w/INRon INR Coag (PPP) [Relative time] 1.8 {INR} Normal [facility] Comment on above: Order Comment: REDRA W. PREVIOUS SPECIMEN REJECTED DUE TOSPECIMEN BEING QNS. 08/21/24 1155 Eladio Cavazos Performed By: #### L 300.3900 ####[facility] [address] [place], [address] PT Coag (PPP) [Time] 21.0 s High 11.7-14.9 [facility] Comment on above: Order Comment: REDRA W. PREVIOUS SPECIMEN REJECTED DUE TOSPECIMEN BEING QNS. 08/21/24 1155 Eladio Cavazos Performed By: #### L 300.3900 ####[facility] [address] [place], [address] INR Normal [facility] Comment on above: Result Comment: @DUP LICATE ORDER Performed By: #### L 300.3900 ####[facility] [address] [place], [address] PROTIME Normal 11.7-14.9 [facility] Comment on above: Result Comment: @DUP LICATE ORDER Performed By: #### L 300.3900 ####[facility] [address] [place], [address] INR Normal [facility] Comment on above: Result Comment: Tay sloan via OM: Ordered Performed By: #### L 501.5200, L300.3900 ####[facility] [address] [place], [address] PROTIME Normal 11.7-14.9 [facility] Comment on above: Result Comment: Canc elled via OM: MD Ordered Performed By: #### L 501.5200, L300.3900 ####[facility] [address] [place], [address] INR Normal [facility] Comment on above: Result Comment: This specimen has been REJECTED due to Laboratory criteria:Quanity Not Sufficient.ED STAFF has been notified of need of recollection.08/21/24 1154 Eladio Ochoar Performed By: #### L 500.4050, L300.3900, L501.4021, L503.7505, L100.0100 ####[facility] [address] [place], [address] PROTIME Normal 11.7-14.9 [facility] Comment on above: Result Comment: This specimen has been REJECTED due to Laboratory criteria:Quanity Not Sufficient.ED STAFF has been notified of need of recollection.08/21/24 1154 Eladio Ochoar Performed By: #### L 500.4050, L300.3900, L501.4021, L503.7505, L100.0100 ####[facility] [address] [place], [address] Prothrombin timeOrdered By: Skyler Watkins on 08-21-2024 PT Coag (PPP) [Time] 21.0 s High 11.7-14.9 [facility] RBC Auto (Bld) [#/Vol]Ordere d By: Skyler Watkins on 08-21-2024 RBC (Bld) [#/Vol] 4.85 10*6/uL 4.2-5.4 [facility] Serum creatinine measurement (mass/volume)Ordered By: Skyler Watkins on 08-21-2024 Creatinine [Mass/Vol] 0.87 mg/dL 0.70-1.20 [facility] Serum globulin measurementOr dered By: Skyler Watkins on 08-21-2024 Globulin (S) [Mass/Vol] 2.9 g/dL 2.2-4.2 [facility] Serum glucose measurement (m ass/volume)Ordered By: Skyler Watkins on 08-21-2024 Glucose [Mass/Vol] 166 mg/dL High 70-99 [facility] Serum or plasma alanine kebede otransferase (ALT) measurementOrdered By: Skyler Watkins on 08-21-2024 ALT [Catalytic activity/Vol] 27 U/L <35 [facility] Serum or plasma albumin lakshmi urement (mass/volume)Ordered By: Skyler Watkins on 08-21-2024 Albumin [Mass/Vol] 3.6 g/dL 3.4-4.8 [facility] Serum or plasma albumin/glob ulin mass ratioOrdered By: Skyler Watkins on 08-21-2024 Albumin/Globulin [Mass ratio] 1.2 {ratio} 0.9-2.4 [facility] Serum or plasma alkaline david sphatase measurementOrdered By: Skyler Watkins on 08-21-2024 ALP [Catalytic activity/Vol] 84 U/L 35-104 [facility] Serum or plasma calcium lakshmi urement (mass/volume)Ordered By: Skyler Watkins on 08-21-2024 Calcium [Mass/Vol] 8.6 mg/dL 7.6-11.0 [facility] Serum or plasma urea nitroge n measurement (mass/volume)Ordered By: Skyler Watkins on 08-21-2024 Urea nitrogen [Mass/Vol] 19 mg/dL 4-19 [facility] Serum phosphorus measurement Ordered By: Iglesia Benson on 08-21-2024 Phosphorus Level 2.9 mg/dL 2.7-4.5 [facility] Sodium levelOrdered By: Skyler Watkins on 08-21-2024 Sodium [Moles/Vol] 139 mmol/L 133-145 [facility] Total proteinOrdered By: Skyler Watkins on 08-21-2024 Protein [Mass/Vol] 6.5 g/dL 5.9-8.4 [facility] Troponin T.cardiac High sens itivity method [Mass/Vol]Ordered By: Skyler Watkins on 08-21-2024 Troponin T High Sensitivity 4 Hour 45 ng/L High <14 [facility] Troponin T High Sensitivity 2 Hour 44 ng/L High <14 [facility] Troponin T.cardiac [Mass/vol ume] in Serum or Plasma by High sensitivity methodOrdered By: Skyler Watkins on 08-21-2024 Troponin T.cardiac High sensitivity method [Mass/Vol] 45 ng/L High <14 [facility] Troponin T.cardiac High sensitivity method [Mass/Vol] 44 ng/L High <14 [facility] White blood cell (WBC) count Ordered By: Skyler Watkins on 08-21-2024 WBC (Bld) [#/Vol] 7.9 10*3/uL 4.4-11.0 [facility] International normalized rat io (INR) calculationOrdered By: Abdulaziz Ackerman on 08-15-2024 INR Coag (Bld) [Relative time] 1.6 {INR} [facility] Prothrombin Time w/INRon INR Coag (PPP) [Relative time] 1.6 {INR} Normal [facility] Comment on above: Performed By: #### L 300.3900 ####[facility] [address] [facility] [place], [place], [id number] PT Coag (PPP) [Time] 19.2 s High 11.7-14.9 [facility] Comment on above: Performed By: #### L 300.3900 ####[facility] [address] [facility] [place], [place], [id number] Prothrombin timeOrdered By: Abdulaziz Ackerman on 08-15-2024 PT Coag (PPP) [Time] 19.2 s High 11.7-14.9 [facility] Anion gap in Serum or Plasma Ordered By: Eladio Pandey on 07-31-2024 Anion gap [Moles/Vol] 14 mmol/L 5-15 [facility] BUN/creatinine ratioOrdered By: Eladio Pandey on 07-31-2024 Urea nitrogen/Creatinine [Mass ratio] 12.6 mg/mg 10-20 [facility] Bilirubin, totalOrdered By: Eladio Pandey on 07-31-2024 Bilirubin [Mass/Vol] 0.50 mg/dL 0.00-1.30 [facility] Carbon dioxide, total [Moles /volume] in Central venous bloodOrdered By: Eladio Pandey on 07-31-2024 CO2 [Moles/Vol] 26.1 mmol/L 21.0-32.0 [facility] Chloride assayOrdered By: Fabienne Pandey on 07-31-2024 Chloride [Moles/Vol] 100 mmol/L 98-108 [facility] Comprehensive Metabolic Prof ilon 07-31-2024 Albumin [Mass/Vol] 3.5 g/dL Normal 3.4-4.8 [facility] Comment on above: Performed By: #### L 500.4050 ####[facility] [address] [place], [address] Albumin/Globulin [Mass ratio] 1.0 {ratio} Normal 0.9-2.4 [facility] Comment on above: Performed By: #### L 500.4050 ####[facility] [address] [place], [address] ALK PHOS 86 U/L Normal 35-104 [facility] Comment on above: Performed By: #### L 500.4050 ####[facility] [address] [place], [address] ALT [Catalytic activity/Vol] 21 U/L Normal <=34 [facility] Comment on above: Performed By: #### L 500.4050 ####[facility] [address] [place], [address] AST [Catalytic activity/Vol] 29 U/L Normal <=31 [facility] Comment on above: Performed By: #### L 500.4050 ####[facility] [address] [place], [address] Bilirubin [Mass/Vol] 0.50 mg/dL Normal 0.00-1.30 [facility] Comment on above: Performed By: #### L 500.4050 ####[facility] [address] [place], [address] BUN/CRE 12.6 RATIO Normal 10-20 [facility] Comment on above: Performed By: #### L 500.4050 ####[facility] [address] [place], [address] Calcium [Mass/Vol] 8.6 mg/dL Normal 7.6-11.0 [facility] Comment on above: Performed By: #### L 500.4050 ####[facility] [address] [place], [address] Chloride [Moles/Vol] 100 mmol/L Normal 98-108 [facility] Comment on above: Performed By: #### L 500.4050 ####[facility] [address], [address] CO2 [Moles/Vol] 26.1 mmol/L Normal 21.0-32.0 [facility] Comment on above: Performed By: #### L 500.4050 ####[facility] [address] [place], [address] Creatinine [Mass/Vol] 0.91 mg/dL Normal 0.70-1.20 [facility] Comment on above: Performed By: #### L 500.4050 ####[facility] [address] [place], [address] GAP 14 Normal 5-15 [facility] Comment on above: Performed By: #### L 500.4050 ####[facility] [address] [place], [address] GFR/1.73 sq M.predicted among non-blacks MDRD (S/P/Bld) [Vol rate/Area] 69 mL/min/{1.73_m2} Normal >60 [facility] Comment on above: Result Comment: mL/m in/1.73m2 CKD-EPI Creatinine Equation (2020) Performed By: #### L 500.4050 ####[facility] [address] [place] [place], [address] Globulin (S) [Mass/Vol] 3.3 g/dL Normal 2.2-4.2 [facility] Comment on above: Performed By: #### L 500.4050 ####[facility] [address] [place], [address] Glucose [Mass/Vol] 163 mg/dL High 70-99 [facility] Comment on above: Performed By: #### L 500.4050 ####[facility] [address] [place], [address] Potassium [Moles/Vol] 2.8 mmol/L Low 3.3-5.1 [facility] Comment on above: Performed By: #### L 500.4050 ####[facility] [address] [place], [address] Sodium [Moles/Vol] 140 mmol/L Normal 133-145 [facility] Comment on above: Performed By: #### L 500.4050 ####[facility] [address] [place], [address] T PROT 6.8 g/dL Normal 5.9-8.4 [facility] Comment on above: Performed By: #### L 500.4050 ####[facility] [address] [place], [address] Urea nitrogen [Mass/Vol] 11 mg/dL Normal 4-19 [facility] Comment on above: Performed By: #### L 500.4050 ####[facility] [address] [place], [address] GFR/1.73 sq M.predicted romelia g non-blacks MDRD (S/P/Bld) [Vol rate/Area]Ordered By: Eladio Pandey on 07-31-2024 Estimated GFR (MDRD) Non-Af Amer 69 >60 [facility] Comment on above: mL/min/1.73m2 CKD-EP I Creatinine Equation (2020) Glomerular filtration rate ( GFR) estimation/1.73 sq m using serum, plasma, or whole bOrdered By: Eladio Pandey on 07-31-2024 GFR/1.73 sq M.predicted among non-blacks MDRD (S/P/Bld) [Vol rate/Area] 69 mL/min/{1.73_m2} >60 [facility] Comment on above: mL/min/1.73m2 CKD-EP I Creatinine Equation (2020) Internal Medicine Office Vis iton 07-31-2024 Internal Medicine Office Visit Normal [facility] Laboratory - Chemistry and C hemistry - challengeOrdered By: Eladio Pandey on 07-31-2024 AST [Catalytic activity/Vol] 29 U/L <32 [facility] No Panel InformationOrdered By: Eladio Pandey on 07-31-2024 29 U/L <32 [facility] Potassium (Unsp spec) [Mass/ Vol]Ordered By: Eladio Pandey on 07-31-2024 Potassium [Moles/Vol] 2.8 mmol/L Low 3.3-5.1 [facility] Potassium measurement (mass/ volume)Ordered By: Eladio Pandey on 07-31-2024 Potassium (Unsp spec) [Mass/Vol] 2.8 mmol/L Low 3.3-5.1 [facility] Prothrombin Time w/INRon INR Coag (PPP) [Relative time] 1.9 {INR} Normal [facility] Comment on above: Performed By: #### L 383.3456 ####[facility] [address] [place], [place], [address] PT Coag (PPP) [Time] 22.6 s High 11.7-14.9 [facility] Comment on above: Performed By: #### L 300.3900 ####[facility] [address] [place], [address] Serum creatinine measurement (mass/volume)Ordered By: Eladio Pandey on 07-31-2024 Creatinine [Mass/Vol] 0.91 mg/dL 0.70-1.20 [facility] Serum globulin measurementOr dered By: Eladio Pandey on 07-31-2024 Globulin (S) [Mass/Vol] 3.3 g/dL 2.2-4.2 [facility] Serum glucose measurement (m ass/volume)Ordered By: Eladio Pandey on 07-31-2024 Glucose [Mass/Vol] 163 mg/dL High 70-99 [facility] Serum or plasma alanine kebede otransferase (ALT) measurementOrdered By: Eladio Pandey on 07-31-2024 ALT [Catalytic activity/Vol] 21 U/L <35 [facility] Serum or plasma albumin lakshmi urement (mass/volume)Ordered By: Eladio Pandey on 07-31-2024 Albumin [Mass/Vol] 3.5 g/dL 3.4-4.8 [facility] Serum or plasma albumin/glob ulin mass ratioOrdered By: Eladio Pandey on 07-31-2024 Albumin/Globulin [Mass ratio] 1.0 {ratio} 0.9-2.4 [facility] Serum or plasma alkaline david sphatase measurementOrdered By: Eladio Pandey on 07-31-2024 ALP [Catalytic activity/Vol] 86 U/L 35-104 [facility] Serum or plasma calcium lakshmi urement (mass/volume)Ordered By: Eladio Pandey on 07-31-2024 Calcium [Mass/Vol] 8.6 mg/dL 7.6-11.0 [facility] Serum or plasma urea nitroge n measurement (mass/volume)Ordered By: Eladio Pandey on 07-31-2024 Urea nitrogen [Mass/Vol] 11 mg/dL 4-19 [facility] Sodium levelOrdered By: Boom Pandey on 07-31-2024 Sodium [Moles/Vol] 140 mmol/L 133-145 [facility] Total proteinOrdered By: Adriel Pandey on 07-31-2024 Protein [Mass/Vol] 6.8 g/dL 5.9-8.4 [facility] Absolute lymphocyte countOrd ered By: Abdulaziz Ackerman on 07-24-2024 Lymphocytes Auto (Unsp spec) [#/Vol] 1.41 10*3/uL 0.83-4.51 [facility] Absolute neutrophil countOrd ered By: Abdulaziz Ackerman on 07-24-2024 Neutrophils (Bld) [#/Vol] 5.1 10*3/uL 2.0-7.7 [facility] Automated lymphocyte count a s percentage of total leukocytesOrdered By: Abdulaziz Ackerman on 07-24-2024 Lymphocytes/100 WBC Auto (Unsp spec) 18.9 % Low 19-41 [facility] Basophil percentageOrdered B y: Abdulazzi Ackerman on 07-24-2024 Basophils/100 WBC (Bld) 0.9 % 0-1 [facility] CBC W/Diff, Automatedon Absolute Lymph 1.41 X10 3/uL Normal 0.83-4.51 [facility] Comment on above: Performed By: #### L 500.4050, L503.7505, L506.0400, L300.3900, L501.9985, L100.0100, L501.9520 ####[facility] [address] [place], [place], [phone] Absolute Neut 5.1 X10 3/uL Normal 2.0-7.7 [facility] Comment on above: Performed By: #### L 500.4050, L503.7505, L506.0400, L300.3900, L501.9985, L100.0100, L501.9520 ####[facility] [address] [place], [address] Basophils/100 WBC (Bld) 0.9 % Normal 0-1 [facility] Comment on above: Performed By: #### L 500.4050, L503.7505, L506.0400, L300.3900, L501.9985, L100.0100, L501.9520 ####[facility] [address] [place], [address] Eosinophils/100 WBC (Bld) 1.9 % Normal 0-5 [facility] Comment on above: Performed By: #### L 500.4050, L503.7505, L506.0400, L300.3900, L501.9985, L100.0100, L501.9520 ####[facility] [address] [place], [address] Erythrocyte distribution width (RBC) [Ratio] 18.7 % High 11.6-14.6 [facility] Comment on above: Performed By: #### L 500.4050, L503.7505, L506.0400, L300.3900, L501.9985, L100.0100, L501.9520 ####[facility] [address] [place], [address] Hematocrit (Bld) [Volume fraction] 35.3 % Low 37-47 [facility] Comment on above: Performed By: #### L 500.4050, L503.7505, L506.0400, L300.3900, L501.9985, L100.0100, L501.9520 ####[facility] [address] [place], [address] Hemoglobin (Bld) [Mass/Vol] 10.1 g/dL Low 12.0-15.0 [facility] Comment on above: Performed By: #### L 500.4050, L503.7505, L506.0400, L300.3900, L501.9985, L100.0100, L501.9520 ####[facility] [address] [place], [address] IG% 0.400 Normal 0.0-0.9 [facility] Comment on above: Result Comment: IG% - Immature Granulocytes (promyelocytes, myelocytes andmetamyelocytes) > 1% indicates that a LEFT SHIFT is Present. Performed By: #### L 500.4050, L503.7505, L506.0400, L300.3900, L501.9985, L100.0100, L501.9520 ####[facility] [address] [place], [address] Lymphocytes/100 WBC (Bld) 18.9 % Low 19-41 [facility] Comment on above: Performed By: #### L 500.4050, L503.7505, L506.0400, L300.3900, L501.9985, L100.0100, L501.9520 ####[facility] [address] [place], [address] MCH (RBC) [Entitic mass] 22.1 pg Low 27.0-32.0 [facility] Comment on above: Performed By: #### L 500.4050, L503.7505, L506.0400, L300.3900, L501.9985, L100.0100, L501.9520 ####[facility] [address] [place], [address] MCHC (RBC) [Mass/Vol] 28.6 g/dL Low 32-36 [facility] Comment on above: Performed By: #### L 500.4050, L503.7505, L506.0400, L300.3900, L501.9985, L100.0100, L501.9520 ####[facility] [address] [place], [address] MCV (RBC) [Entitic vol] 77.2 fL Low 81-99 [facility] Comment on above: Performed By: #### L 500.4050, L503.7505, L506.0400, L300.3900, L501.9985, L100.0100, L501.9520 ####[facility] [address] [place], [address] Monocytes/100 WBC (Bld) 9.2 % Normal 0-10 [facility] Comment on above: Performed By: #### L 500.4050, L503.7505, L506.0400, L300.3900, L501.9985, L100.0100, L501.9520 ####[facility] [address] [place], [address] Neutrophils/100 WBC (Bld) 68.7 % Normal 47-70 [facility] Comment on above: Performed By: #### L 500.4050, L503.7505, L506.0400, L300.3900, L501.9985, L100.0100, L501.9520 ####[facility] [address] [place], [address] Nucleated RBC (Bld) [#/Vol] 0 10*3/uL Normal 0-5 [facility] Comment on above: Performed By: #### L 500.4050, L503.7505, L506.0400, L300.3900, L501.9985, L100.0100, L501.9520 ####[facility] [address] [place], [address] Platelet mean volume (Bld) [Entitic vol] 10.1 fL Normal 6.2-12.0 [facility] Comment on above: Performed By: #### L 500.4050, L503.7505, L506.0400, L300.3900, L501.9985, L100.0100, L501.9520 ####[facility] [address] [place], [address] Platelets (Bld) [#/Vol] 237 10*3/uL Normal 150-450 [facility] Comment on above: Performed By: #### L 500.4050, L503.7505, L506.0400, L300.3900, L501.9985, L100.0100, L501.9520 ####[facility] [address] [place], [address] RBC (Bld) [#/Vol] 4.57 10*6/uL Normal 4.2-5.4 [facility] Comment on above: Performed By: #### L 500.4050, L503.7505, L506.0400, L300.3900, L501.9985, L100.0100, L501.9520 ####[facility] [address] [place], [address] RDW SD 51.2 fl High 35.1-43.9 [facility] Comment on above: Performed By: #### L 500.4050, L503.7505, L506.0400, L300.3900, L501.9985, L100.0100, L501.9520 ####[facility] [address] [place], [address] WBC (Bld) [#/Vol] 7.5 10*3/uL Normal 4.4-11.0 [facility] Comment on above: Performed By: #### L 500.4050, L503.7505, L506.0400, L300.3900, L501.9985, L100.0100, L501.9520 ####[facility] [address] [place], [address] Comprehensive Metabolic Prof ilon 07-24-2024 Albumin [Mass/Vol] 3.5 g/dL Normal 3.4-4.8 [facility] Comment on above: Order Comment: stand ing order. Performed By: #### L 500.4050, L503.7505, L506.0400, L300.3900, L501.9985, L100.0100, L501.9520 ####[facility] [address] [place], [address] Albumin/Globulin [Mass ratio] 1.3 {ratio} Normal 0.9-2.4 [facility] Comment on above: Order Comment: stand ing order. Performed By: #### L 500.4050, L503.7505, L506.0400, L300.3900, L501.9985, L100.0100, L501.9520 ####[facility] [address] [place], [address] ALK PHOS 80 U/L Normal 35-104 [facility] Comment on above: Order Comment: stand ing order. Performed By: #### L 500.4050, L503.7505, L506.0400, L300.3900, L501.9985, L100.0100, L501.9520 ####[facility] [address] [place], [address] ALT [Catalytic activity/Vol] 20 U/L Normal <=34 [facility] Comment on above: Order Comment: stand ing order. Performed By: #### L 500.4050, L503.7505, L506.0400, L300.3900, L501.9985, L100.0100, L501.9520 ####[facility] [address] [place], [address] AST [Catalytic activity/Vol] 21 U/L Normal <=31 [facility] Comment on above: Order Comment: stand ing order. Performed By: #### L 500.4050, L503.7505, L506.0400, L300.3900, L501.9985, L100.0100, L501.9520 ####[facility] [address] [place], [address] Bilirubin [Mass/Vol] 0.67 mg/dL Normal 0.00-1.30 [facility] Comment on above: Order Comment: stand ing order. Performed By: #### L 500.4050, L503.7505, L506.0400, L300.3900, L501.9985, L100.0100, L501.9520 ####[facility] [address] [place], [address] BUN/CRE 16.1 RATIO Normal 10-20 [facility] Comment on above: Order Comment: stand ing order. Performed By: #### L 500.4050, L503.7505, L506.0400, L300.3900, L501.9985, L100.0100, L501.9520 ####[facility] [address] [place], [address] Calcium [Mass/Vol] 8.7 mg/dL Normal 7.6-11.0 [facility] Comment on above: Order Comment: stand ing order. Performed By: #### L 500.4050, L503.7505, L506.0400, L300.3900, L501.9985, L100.0100, L501.9520 ####[facility] [address] [place], [address] Chloride [Moles/Vol] 104 mmol/L Normal 98-108 [facility] Comment on above: Order Comment: stand ing order. Performed By: #### L 500.4050, L503.7505, L506.0400, L300.3900, L501.9985, L100.0100, L501.9520 ####[facility] [address] [place], [address] CO2 [Moles/Vol] 24.5 mmol/L Normal 21.0-32.0 [facility] Comment on above: Order Comment: stand ing order. Performed By: #### L 500.4050, L503.7505, L506.0400, L300.3900, L501.9985, L100.0100, L501.9520 ####[facility] [address] [place], [address] Creatinine [Mass/Vol] 0.77 mg/dL Normal 0.70-1.20 [facility] Comment on above: Order Comment: stand ing order. Performed By: #### L 500.4050, L503.7505, L506.0400, L300.3900, L501.9985, L100.0100, L501.9520 ####[facility] [address] [place], [address] GAP 11 Normal 5-15 [facility] Comment on above: Order Comment: stand ing order. Performed By: #### L 500.4050, L503.7505, L506.0400, L300.3900, L501.9985, L100.0100, L501.9520 ####[facility] [address] [place], [address] GFR/1.73 sq M.predicted among non-blacks MDRD (S/P/Bld) [Vol rate/Area] 85 mL/min/{1.73_m2} Normal >60 [facility] Comment on above: Order Comment: stand ing order. Result Comment: mL/m in/1.73m2 CKD-EPI Creatinine Equation (2020) Performed By: #### L 500.4050, L503.7505, L506.0400, L300.3900, L501.9985, L100.0100, L501.9520 ####[facility] [address] [place], [address] Globulin (S) [Mass/Vol] 2.8 g/dL Normal 2.2-4.2 [facility] Comment on above: Order Comment: stand ing order. Performed By: #### L 500.4050, L503.7505, L506.0400, L300.3900, L501.9985, L100.0100, L501.9520 ####[facility] [address] [place], [address] Glucose [Mass/Vol] 85 mg/dL Normal 70-99 [facility] Comment on above: Order Comment: stand ing order. Performed By: #### L 500.4050, L503.7505, L506.0400, L300.3900, L501.9985, L100.0100, L501.9520 ####[facility] [address] [place], [address] Potassium [Moles/Vol] 3.3 mmol/L Normal 3.3-5.1 [facility] Comment on above: Order Comment: stand ing order. Performed By: #### L 500.4050, L503.7505, L506.0400, L300.3900, L501.9985, L100.0100, L501.9520 ####[facility] [address] [place], [address] Sodium [Moles/Vol] 140 mmol/L Normal 133-145 [facility] Comment on above: Order Comment: stand ing order. Performed By: #### L 500.4050, L503.7505, L506.0400, L300.3900, L501.9985, L100.0100, L501.9520 ####[facility] [address] [place], [address] T PROT 6.2 g/dL Normal 5.9-8.4 [facility] Comment on above: Order Comment: stand ing order. Performed By: #### L 500.4050, L503.7505, L506.0400, L300.3900, L501.9985, L100.0100, L501.9520 ####[facility] [address] [place], [address] Urea nitrogen [Mass/Vol] 12 mg/dL Normal 4-19 [facility] Comment on above: Order Comment: stand ing order. Performed By: #### L 500.4050, L503.7505, L506.0400, L300.3900, L501.9985, L100.0100, L501.9520 ####[facility] [address] [place], [address] Eosinophil percentageOrdered By: rosalina Ackerman on 07-24-2024 Eosinophils/100 WBC (Bld) 1.9 % 0-5 [facility] Erythrocyte distribution wid th ratioOrdered By: [facility] on 07-24-2024 Erythrocyte distribution width (RBC) [Ratio] 18.7 % High 11.6-14.6 [facility] Erythrocyte distribution wid th standard deviationOrdered By: [facility] Solor[place] on 07-24-2024 Erythrocyte distribution width (RBC) [Entitic vol] 51.2 fL High 35.1-43.9 [facility] Erythrocyte distribution width (RBC) [Ratio] 51.2 fl High 35.1-43.9 [facility] Hematocrit Auto (Bld) [Volum e fraction]Ordered By: mylenebutlerarsenio Ackerman on 07-24-2024 Hematocrit (Bld) [Volume fraction] 35.3 % Low 37-47 [facility] Hemoglobin A1con 07-24-2024 HbA1c (Bld) [Mass fraction] 6.1 % Normal <=5.6 [facility] Comment on above: Performed By: #### L 500.4050, L503.7505, L506.0400, L300.3900, L501.9985, L100.0100, L501.9520 ####[facility] [address] [place], [place], [id number] Hemoglobin A1c percentageOrd ered By: [facility] Ackerman on 07-24-2024 HbA1c (Bld) [Mass fraction] 6.1 % >5.7 [facility] Hemoglobin measurementOrdere d By: rosalina Ackerman on 07-24-2024 Hemoglobin (Bld) [Mass/Vol] 10.1 g/dL Low 12.0-15.0 [facility] Immature granulocytes/100 WB C Auto (Bld)Ordered By: Abdulaziz Ackerman on 07-24-2024 Immature granulocytes/100 WBC (Bld) 0.400 % 0.0-0.9 [facility] Comment on above: IG% - Immature Granu locytes (promyelocytes, myelocytes and metamyelocytes) > 1% indicates that a LEFT SHIFT is Present. Internal Medicine Office Vis iton 07-24-2024 Internal Medicine Office Visit Normal [facility] L503.7505on 07-24-2024 Natriuretic peptide B (Bld) [Mass/Vol] 3206 pg/mL High <=900 [facility] Comment on above: Result Comment: Hear t Failure Unlikely: < 300 pg/mLHeart Failure Likely< 50 Years: > 450 pg/mL50-75 Years: > 900 pg/mL>75 Years: > 1800 pg/mL Performed By: #### L 500.4050, L503.7505, L506.0400, L300.3900, L501.9985, L100.0100, L501.9520 ####[facility] [address] [place], [address] Laboratory - Chemistry and C hemistry - challengeOrdered By: Abdulaziz Ackerman on 07-24-2024 Natriuretic peptide B (Bld) [Mass/Vol] 3206 pg/mL High <900 [facility] Comment on above: Heart Failure Unlike ly: < 300 pg/mLHeart Failure Likely< 50 Years: > 450 pg/mL50-75 Years: > 900 pg/mL>75 Years: > 1800 pg/mL Lymphocytes Auto (Unsp spec) [#/Vol]Ordered By: Abdulaziz Ackerman on 07-24-2024 Lymphocytes (Bld) [#/Vol] 1.41 10*3/uL 0.83-4.51 [facility] Lymphocytes/100 WBC Auto (Un sp spec)Ordered By: Abdulaziz Ackerman on 07-24-2024 Lymphocytes/100 WBC (Bld) 18.9 % Low 19-41 [facility] MCV (mean corpuscular volume ) determinationOrdered By: Abdulaziz Ackerman on 07-24-2024 MCV (RBC) [Entitic vol] 77.2 fL Low 81-99 [facility] Mean corpuscular hemoglobin (MCH) determinationOrdered By: Abdulaziz Ackerman on 07-24-2024 MCH (RBC) [Entitic mass] 22.1 pg Low 27.0-32.0 [facility] Mean corpuscular hemoglobin concentration (MCHC) determinationOrdered By: Abdulaziz Ackerman on 07-24-2024 MCHC (RBC) [Mass/Vol] 28.6 g/dL Low 32-36 [facility] Mean platelet volume determi nationOrdered By: Abdulaziz Ackerman on 07-24-2024 Platelet mean volume (Bld) [Entitic vol] 10.1 fL 6.2-12.0 [facility] Monocyte percentageOrdered B y: Abdulaziz Ackerman on 07-24-2024 Monocytes/100 WBC (Bld) 9.2 % 0-10 [facility] Neutrophil percentageOrdered By: [facility] Rashadnoah on 07-24-2024 Neutrophils/100 WBC (Bld) 68.7 % 47-70 [facility] No Panel InformationOrdered By: Abdulaziz Ackerman on 07-24-2024 3206 pg/mL High <900 [facility] Nucleated red blood cell per centageOrdered By: Abdulaziz Solorzanobabatundenoah on 07-24-2024 Nucleated RBC/100 WBC (Bld) [Ratio] 0 % 0-5 [facility] Platelet countOrdered By: Renita briaarsenio Ackerman on 07-24-2024 Platelets (Bld) [#/Vol] 237 10*3/uL 150-450 [facility] Prothrombin Time w/INRon INR Coag (PPP) [Relative time] 1.2 {INR} Normal [facility] Comment on above: Order Comment: Comme nts: standing order. Performed By: #### L 500.4050, L503.7505, L506.0400, L300.3900, L501.9985, L100.0100, L501.9520 ####[facility] [address] [place], [address] PT Coag (PPP) [Time] 15.7 s High 11.7-14.9 [facility] Comment on above: Order Comment: Comme nts: standing order. Performed By: #### L 500.4050, L503.7505, L506.0400, L300.3900, L501.9985, L100.0100, L501.9520 ####[facility] [address] [place], [address] RBC Auto (Bld) [#/Vol]Ordere d By: Abdulaziz Ackerman on 07-24-2024 RBC (Bld) [#/Vol] 4.57 10*6/uL 4.2-5.4 [facility] T4 Free Directon 07-24-2024 T4 FREE DIRECT 1.10 ng/dL Normal 0.76-1.46 [facility] Comment on above: Order Comment: stand ing order. Performed By: #### L 500.4050, L503.7505, L506.0400, L300.3900, L501.9985, L100.0100, L501.9520 ####[facility] [address] [place], [place], [address] T4 freeOrdered By: Abdulaziz Ackerman on 07-24-2024 Free T4 [Mass/Vol] 1.10 ng/dL 0.76-1.46 [facility] TSH DL <= 0.005 mIU/L QnOrde red By: Abdulaziz Ackerman on 07-24-2024 Thyroid Stimulating Hormone (TSH) 2.570 uIU/mL 0.300-4.200 [facility] TSH Qn 2.570 uIU/mL 0.300-4.200 [facility] Thyroid Stim Hormone (TSH)on 07-24-2024 TSH 2.570 uIU/mL Normal 0.300-4.200 [facility] Comment on above: Performed By: #### L 500.4050, L503.7505, L506.0400, L300.3900, L501.9985, L100.0100, L501.9520 ####[facility] [address] [place], [place], [id number] White blood cell (WBC) count Ordered By: Abdulaziz Ackerman on 07-24-2024 WBC (Bld) [#/Vol] 7.5 10*3/uL 4.4-11.0 [facility] International normalized rat io (INR) calculationOrdered By: Abdulaziz Ackerman on 04-30-2024 INR Coag (Bld) [Relative time] 1.8 {INR} [facility] Prothrombin Time w/INRon INR Coag (PPP) [Relative time] 1.8 {INR} Normal [facility] Comment on above: Performed By: #### L 300.3900 ####[facility] [address] [place], [place], [id number] PT Coag (PPP) [Time] 20.6 s High 11.7-14.9 [facility] Comment on above: Performed By: #### L 300.3900 ####[facility] [address] [place], [place], [id number] Prothrombin timeOrdered By: Abdulaziz Ackerman on 04-30-2024 PT Coag (PPP) [Time] 20.6 s High 11.7-14.9 [facility] Prothrombin Time w/INRon INR Coag (PPP) [Relative time] 2.0 {INR} Normal [facility] Comment on above: Performed By: #### L 300.3900 ####[facility] [address] [place], [address] PT Coag (PPP) [Time] 22.4 s High 11.7-14.9 [facility] Comment on above: Performed By: #### L 300.3900 ####[facility] [address] [place], [address] Laboratory - CoagulationOrde red By: Sara Perez on 09-18-2023 INR Coag (Bld) [Relative time] 1.0 {INR} [facility] PT Coag (PPP) [Time] 13.6 s 11.7-14.9 [facility] Basophil percentageOrdered B y: Abdulaziz Ackerman on 08-08-2023 Bilirubin [Mass/Vol] 0.40 mg/dL 0.20-1.00 [facility] Comment on above: For patients on eltr ombopag therapy, use of Dimension [place] TBIL is not recommended. Chloride [Moles/Vol] 105 mmol/L 98-107 [facility] Glucose [Mass/Vol] 148 mg/dL 74-106 [facility] Comment on above: Fasting Glucose resu lt greater than or equal to 126 mg/dL suggests DIABETES MELLITUS per A.D.A. criteria. Potassium [Moles/Vol] 3.6 mmol/L 3.5-5.1 [facility] Protein [Mass/Vol] 8.1 g/dL 6.4-8.2 [facility] Sodium [Moles/Vol] 140 mmol/L 136-145 [facility] Laboratory - Chemistry and C hemistry - challengeOrdered By: Abdulaziz Ackerman on 08-08-2023 Albumin/Globulin [Mass ratio] 0.7 {ratio} 0.9-2.4 [facility] ALP [Catalytic activity/Vol] 89 U/L 45-117 [facility] ALT [Catalytic activity/Vol] 17 U/L 13-56 [facility] CO2 [Moles/Vol] 24.0 mmol/L 21.0-32.0 [facility] Globulin (S) [Mass/Vol] 4.7 g/dL 2.2-4.2 [facility] Urea nitrogen/Creatinine [Mass ratio] 19.6 mg/mg 10-20 [facility] Laboratory - CoagulationOrde red By: Sara Perez on 08-08-2023 INR Coag (Bld) [Relative time] 2.2 {INR} [facility] PT Coag (PPP) [Time] 24.0 s 11.7-14.9 [facility] No Panel InformationOrdered By: Abdulaziz Ackerman on 08-08-2023 Estimated GFR (MDRD) Amer 97 mL/min >60 [facility] Comment on above: GFR Calc Estimated GFR (MDRD) Non-Af Amer 80 mL/min >60 [facility] Comment on above: Non- GFR Calc Serum or plasma calcium lakshmi urement (mass/volume)Ordered By: Abdulaziz Ackerman on 08-08-2023 Calcium [Mass/Vol] 8.8 mg/dL 8.5-10.1 [facility] Serum or plasma creatinine m easurement (mass/volume)Ordered By: Abdulaziz Ackerman on 08-08-2023 Creatinine [Mass/Vol] 0.76 mg/dL 0.55-1.02 [facility] Comment on above: The validity of the calculated GFR & GFRAA in patients over 70 years has not been determined. Clinical correlation is essential. Serum or plasma urea nitroge n measurement (mass/volume)Ordered By: Abdulaziz Ackerman on 08-08-2023 Urea nitrogen [Mass/Vol] 15 mg/dL 7-18 [facility] Thin prep Papanicolaou smear with manual screeningOrdered By: mylenebutlerarsenio Ackerman on 08-08-2023 Thin prep Papanicolaou smear with manual screening 3.4 g/dL 3.2-5.0 [facility] Thin prep Papanicolaou smear with manual screening 17 U/L 15-37 [facility] Thin prep Papanicolaou smear with manual screening 11 5-15 [facility] Absolute lymphocyte countOrd ered By: Sara Perez on 07-28-2023 Lymphocytes Auto (Unsp spec) [#/Vol] 2.41 10*3/uL 0.83-4.51 [facility] Automated lymphocyte count a s percentage of total leukocytesOrdered By: Sara Perez on 07-28-2023 Lymphocytes/100 WBC Auto (Unsp spec) 26.5 % 19-41 [facility] Basophil percentageOrdered B y: Sara Perez on 07-28-2023 Basophils/100 WBC (Bld) 0.7 % 0-1 [facility] Chloride [Moles/Vol] 108 mmol/L 98-107 [facility] Eosinophils/100 WBC (Bld) 1.8 % 0-5 [facility] Glucose [Mass/Vol] 88 mg/dL 74-106 [facility] Hemoglobin (Bld) [Mass/Vol] 12.1 g/dL 12.0-15.0 [facility] Monocytes/100 WBC (Bld) 8.5 % 0-10 [facility] Neutrophils (Bld) [#/Vol] 5.7 10*3/uL 2.0-7.7 [facility] Neutrophils/100 WBC (Bld) 62.3 % 47-70 [facility] Potassium [Moles/Vol] 4.1 mmol/L 3.5-5.1 [facility] Sodium [Moles/Vol] 139 mmol/L 136-145 [facility] WBC (Bld) [#/Vol] 9.1 10*3/uL 4.4-11.0 [facility] Determination of erythrocyte mean corpuscular volume (MCV)Ordered By: Sara Perez on 07-28-2023 MCV (RBC) [Entitic vol] 81.2 fL 81-99 [facility] Erythrocyte distribution wid th ratioOrdered By: Sara Perez on 07-28-2023 Erythrocyte distribution width (RBC) [Ratio] 19.7 % 11.6-14.6 [facility] Erythrocyte distribution wid th standard deviationOrdered By: Sara Perez on 07-28-2023 Erythrocyte distribution width (RBC) [Entitic vol] 57.5 fL 35.1-43.9 [facility] Hematocrit Auto (Bld) [Volum e fraction]Ordered By: Sara Perez on 07-28-2023 Hematocrit (Bld) [Volume fraction] 40.7 % 37-47 [facility] Immature granulocytes/100 WB C Auto (Bld)Ordered By: Sara Perez on 07-28-2023 Immature granulocytes/100 WBC (Bld) 0.200 % 0.0-0.9 [facility] Comment on above: IG% - Immature Granu locytes (promyelocytes, myelocytes and metamyelocytes) > 1% indicates that a LEFT SHIFT is Present. Iron measurement (mass/mass) Ordered By: Sara Perez on 07-28-2023 Iron (Unsp spec) [Mass/Mass] 39 ug/dL 50-170 [facility] Laboratory - Chemistry and C hemistry - challengeOrdered By: Sara Perez on 07-28-2023 CO2 [Moles/Vol] 27.0 mmol/L 21.0-32.0 [facility] Ferritin [Mass/Vol] 38 ng/mL 8-252 [facility] Urea nitrogen/Creatinine [Mass ratio] 15.7 mg/mg 10-20 [facility] Laboratory - CoagulationOrde red By: Sara Perez on 07-28-2023 INR Coag (Bld) [Relative time] 1.3 {INR} [facility] PT Coag (PPP) [Time] 16.5 s 11.7-14.9 [facility] Laboratory - Hematology and Cell countsOrdered By: Sara Perez on 07-28-2023 MCH (RBC) [Entitic mass] 24.2 pg 27.0-32.0 [facility] MCHC (RBC) [Mass/Vol] 29.7 g/dL 32-36 [facility] Nucleated RBC/100 WBC (Bld) [Ratio] 0 % 0-5 [facility] Platelet mean volume (Bld) [Entitic vol] 10.9 fL 6.2-12.0 [facility] Platelets (Bld) [#/Vol] 283 10*3/uL 150-450 [facility] No Panel InformationOrdered By: Sara Perez on 07-28-2023 Estimated GFR (MDRD) Amer 89 mL/min >60 [facility] Comment on above: GFR Calc Estimated GFR (MDRD) Non-Af Amer 73 mL/min >60 [facility] Comment on above: Non- GFR Calc Total Iron Binding Capacity 437 ug/dL 250-450 [facility] RBC Auto (Bld) [#/Vol]Ordere d By: Sara Perez on 07-28-2023 RBC (Bld) [#/Vol] 5.01 10*6/uL 4.2-5.4 [facility] Serum or plasma calcium lakshmi urement (mass/volume)Ordered By: Sara Perez on 07-28-2023 Calcium [Mass/Vol] 9.2 mg/dL 8.5-10.1 [facility] Serum or plasma creatinine m easurement (mass/volume)Ordered By: Sara Perez on 07-28-2023 Creatinine [Mass/Vol] 0.83 mg/dL 0.55-1.02 [facility] Comment on above: The validity of the calculated GFR & GFRAA in patients over 70 years has not been determined. Clinical correlation is essential. Serum or plasma urea nitroge n measurement (mass/volume)Ordered By: Sara Perez on 07-28-2023 Urea nitrogen [Mass/Vol] 13 mg/dL 7-18 [facility] Thin prep Papanicolaou smear with manual screeningOrdered By: Sara Perez on 07-28-2023 Thin prep Papanicolaou smear with manual screening 4 5-15 [facility] Laboratory - CoagulationOrde red By: Sara Perez on 06-26-2023 PT Coag (PPP) [Time] 16.5 s 11.7-14.9 [facility] Platelet poor plasma interna tional normalized ratio (INR)Ordered By: Sara Perez on 06-26-2023 INR Coag (PPP) [Relative time] 1.3 {INR} [facility] International normalized rat io (INR) calculationOrdered By: Sara Perez on 06-21-2023 INR Coag (PPP) [Relative time] 1.3 {INR} [facility] - CoagulationOrde red By: Sara Perez on 06-21-2023 PT Coag (PPP) [Time] 16.6 s 11.7-14.9 [facility] Basophil percentageOrdered B y: Sara Perez on 06-19-2023 Bilirubin [Mass/Vol] 0.40 mg/dL 0.20-1.00 [facility] Comment on above: For patients on eltr ombopag therapy, use of Dimension [place] TBIL is not recommended. Chloride [Moles/Vol] 112 mmol/L 98-107 [facility] Glucose [Mass/Vol] 97 mg/dL 74-106 [facility] Potassium [Moles/Vol] 3.9 mmol/L 3.5-5.1 [facility] Protein [Mass/Vol] 6.6 g/dL 6.4-8.2 [facility] Sodium [Moles/Vol] 143 mmol/L 136-145 [facility] Laboratory - Chemistry and C hemistry - challengeOrdered By: Sara Perez on 06-19-2023 Albumin/Globulin [Mass ratio] 1.0 {ratio} 0.9-2.4 [facility] ALP [Catalytic activity/Vol] 101 U/L 45-117 [facility] ALT [Catalytic activity/Vol] 21 U/L 13-56 [facility] CO2 [Moles/Vol] 27.0 mmol/L 21.0-32.0 [facility] Globulin (S) [Mass/Vol] 3.3 g/dL 2.2-4.2 [facility] Urea nitrogen/Creatinine [Mass ratio] 20.1 mg/mg 10-20 [facility] No Panel InformationOrdered By: Sara Perez on 06-19-2023 Estimated GFR (MDRD) Amer 100 mL/min >60 [facility] Comment on above: GFR Calc Estimated GFR (MDRD) Non-Af Amer 83 mL/min >60 [facility] Comment on above: Non- GFR Calc Serum or plasma calcium lakshmi urement (mass/volume)Ordered By: Sara Perez on 06-19-2023 Calcium [Mass/Vol] 8.7 mg/dL 8.5-10.1 [facility] Serum or plasma creatinine m easurement (mass/volume)Ordered By: Sara Perez on 06-19-2023 Creatinine [Mass/Vol] 0.74 mg/dL 0.55-1.02 [facility] Comment on above: The validity of the calculated GFR & GFRAA in patients over 70 years has not been determined. Clinical correlation is essential. Serum or plasma urea nitroge n measurement (mass/volume)Ordered By: Sara Perez on 06-19-2023 Urea nitrogen [Mass/Vol] 15 mg/dL 7-18 [facility] Thin prep Papanicolaou smear with manual screeningOrdered By: Sara Perez on 06-19-2023 Thin prep Papanicolaou smear with manual screening 3.3 g/dL 3.2-5.0 [facility] Thin prep Papanicolaou smear with manual screening 14 U/L 15-37 [facility] Thin prep Papanicolaou smear with manual screening 4 5-15 [facility] Laboratory - Hematology and Cell countson 12-29-2022 HbA1c (Bld) [Mass fraction] 5.8 % 4.2-6.3 [facility] Basophil percentageOrdered B y: Jimmy Clark on 11-18-2022 Chloride [Moles/Vol] 108 mmol/L 98-107 [facility] Glucose [Mass/Vol] 92 mg/dL 74-106 [facility] Potassium [Moles/Vol] 2.9 mmol/L 3.5-5.1 [facility] Sodium [Moles/Vol] 141 mmol/L 136-145 [facility] - Chemistry and C hemistry - challengeOrdered By: Jimmy Clark on 11-18-2022 CO2 [Moles/Vol] 26.0 mmol/L 21.0-32.0 [facility] Urea nitrogen/Creatinine [Mass ratio] 25.2 mg/mg 10- [facility] No Panel InformationOrdered By: Jimmy Clark on 11-18-2022 Estimated Creatinine Clearance Calc 75.68 ml/min [facility] Estimated GFR (MDRD) Amer 121 mL/min >60 [facility] Comment on above: GFR Calc Estimated GFR (MDRD) Non-Af Amer 100 mL/min >60 [facility] Comment on above: Non- GFR Calc Serum or plasma calcium lakshmi urement (mass/volume)Ordered By: Jimmy Clark on 11-18-2022 Calcium [Mass/Vol] 8.7 mg/dL 8.5-10.1 [facility] Serum or plasma creatinine m easurement (mass/volume)Ordered By: Jimmy Clark on 11-18-2022 Creatinine [Mass/Vol] 0.64 mg/dL 0.55-1.02 [facility] Comment on above: The validity of the calculated GFR & GFRAA in patients over 70 years has not been determined. Clinical correlation is essential. Serum or plasma urea nitroge n measurement (mass/volume)Ordered By: Jimmy Clark on 11-18-2022 Urea nitrogen [Mass/Vol] 16 mg/dL 7-18 [facility] Thin prep Papanicolaou smear with manual screeningOrdered By: Jimmy Clark on 11-18-2022 Thin prep Papanicolaou smear with manual screening 7 5-15 [facility] Absolute lymphocyte countOrd ered By: Maury Flores on 11-17-2022 Lymphocytes Auto (Unsp spec) [#/Vol] 1.97 10*3/uL 0.83-4.51 [facility] Basophil percentageOrdered B y: Maury Flores on 11-17-2022 Cholesterol [Mass/Vol] 187 mg/dL <200 [facility] Comment on above: <200 mg/dL Desirable 200-240 mg/dL Borderline >240 mg/dL High Risk Triglyceride [Mass/Vol] 152 mg/dL <199 [facility] Comment on above: The drugs N-Acetylcy steine and Metamizole may falsely depress this assay.Serum Triglycerides Reference Interval Normal <150 mg/dL Borderline high 150 - 199 mg/dL High 200 - 499 mg/dL Very High > or = 500 mg/dL Basophils/100 WBC (Bld) 0.9 % 0-1 [facility] Chloride [Moles/Vol] 109 mmol/L 98-107 [facility] Eosinophils/100 WBC (Bld) 1.6 % 0-5 [facility] Glucose [Mass/Vol] 140 mg/dL 74-106 [facility] Comment on above: Fasting Glucose resu lt greater than or equal to 126 mg/dL suggests DIABETES MELLITUS per A.D.A. criteria. Neutrophils (Bld) [#/Vol] 5.8 10*3/uL 2.0-7.7 [facility] Neutrophils/100 WBC (Bld) 67.7 % 47-70 [facility] Potassium [Moles/Vol] 3.2 mmol/L 3.5-5.1 [facility] Sodium [Moles/Vol] 139 mmol/L 136-145 [facility] WBC (Bld) [#/Vol] 8.6 10*3/uL 4.4-11.0 [facility] Blood erythrocytes count (nu mber/volume)Ordered By: Maury Flores on 11-17-2022 RBC (Bld) [#/Vol] 4.75 10*6/uL 4.2-5.4 [facility] Blood hemoglobin measurement (mass/volume)Ordered By: Maury Flores on 11-17-2022 Hemoglobin (Bld) [Mass/Vol] 12.9 g/dL 12.0-15.0 [facility] Blood lymphocytes/100 leukoc ytesOrdered By: Maury Flores on 11-17-2022 Lymphocytes/100 WBC (Bld) 22.9 % 19-41 [facility] Blood monocytes/100 leukocyt esOrdered By: Maury Flores on 11-17-2022 Monocytes/100 WBC (Bld) 6.3 % 0-10 [facility] Blood platelet mean volumeOr dered By: Maury Flores on 11-17-2022 Platelet mean volume (Bld) [Entitic vol] 10.3 fL 6.2-12.0 [facility] Determination of erythrocyte mean corpuscular volume (MCV)Ordered By: Maury Flores on 11-17-2022 MCV (RBC) [Entitic vol] 86.3 fL 81-99 [facility] Hematocrit Auto (Bld) [Volum e fraction]Ordered By: Maury Flores on 11-17-2022 Hematocrit (Bld) [Volume fraction] 41.0 % 37-47 [facility] Laboratory - Chemistry and C hemistry - challengeOrdered By: Maury Flores on 11-17-2022 CO2 [Moles/Vol] 22.0 mmol/L 21.0-32.0 [facility] Magnesium [Mass/Vol] 2.1 mg/dL 1.6-2.6 [facility] Urea nitrogen/Creatinine [Mass ratio] 19.0 mg/mg 10-20 [facility] Laboratory - Hematology and Cell countsOrdered By: Maury Flores on 11-17-2022 Erythrocyte distribution width (RBC) [Entitic vol] 52.2 fL 35.1-43.9 [facility] Erythrocyte distribution width (RBC) [Ratio] 16.5 % 11.6-14.6 [facility] Immature granulocytes/100 WBC (Bld) 0.600 % 0.0-0.9 [facility] Comment on above: IG% - Immature Granu locytes (promyelocytes, myelocytes and metamyelocytes) > 1% indicates that a LEFT SHIFT is Present. MCH (RBC) [Entitic mass] 27.2 pg 27.0-32.0 [facility] Nucleated RBC/100 WBC (Bld) [Ratio] 0 % 0-5 [facility] MCHC Auto (RBC) [Mass/Vol]Or dered By: Maury Flores on 11-17-2022 MCHC (RBC) [Mass/Vol] 31.5 g/dL 32-36 [facility] No Panel InformationOrdered By: Jimmy Clark on 11-17-2022 Troponin I High Sensitivity 193 pg/mL 3.0-54.0 [facility] Comment on above: Critical Result(s) C alled at: 15:03:41 11/17/2022 by: Maynor Hoffman to Harpal Gonzalez. Results read back by same. Please Note: New Test Units and Gender Specific Reference Ranges. For more information see Policy Stat Procedure [place] High Sensitivity Troponin (TNIH) and attachments. No Panel InformationOrdered By: Maury Flores on 11-17-2022 Estimated Creatinine Clearance Calc 57.66 ml/min [facility] Estimated GFR (MDRD) Amer 87 mL/min >60 [facility] Comment on above: GFR Calc Estimated GFR (MDRD) Non-Af Amer 72 mL/min >60 [facility] Comment on above: Non- GFR Calc Thyroid Stimulating Hormone (TSH) 1.03 uIU/mL 0.358-3.74 [facility] Troponin I High Sensitivity 198 pg/mL 3.0-54.0 [facility] Comment on above: Critical Result(s) C alled at: 08:19:05 11/17/2022 by: Bijal Currie. Results read back by same. Please Note: New Test Units and Gender Specific Reference Ranges. For more information see Policy Stat Procedure [place] High Sensitivity Troponin (TNIH) and attachments. Platelets bldOrdered By: Corey Flores on 11-17-2022 Platelets (Bld) [#/Vol] 259 10*3/uL 150-450 [facility] Serum or plasma calcium lakshmi urement (mass/volume)Ordered By: Maury Flores on 11-17-2022 Calcium [Mass/Vol] 8.8 mg/dL 8.5-10.1 [facility] Serum or plasma cholesterol in HDL measurement (mass/volume)Ordered By: Maury Flores on 11-17-2022 Cholesterol in HDL [Mass/Vol] 39 mg/dL >40 [facility] Comment on above: The drugs N-Acetylcy steine and Metamizole may falsely depress this assay. Reference Range HDL <40 mg/dL Low HDL Cholesterol HDL >or= 60 mg/dL High HDL Cholesterol Serum or plasma cholesterol in VLDL measurement (mass/volume)Ordered By: Maury Flores on 11-17-2022 Cholesterol in VLDL [Mass/Vol] 30 mg/dL 5-40 [facility] Serum or plasma creatinine m easurement (mass/volume)Ordered By: Maury Flores on 11-17-2022 Creatinine [Mass/Vol] 0.84 mg/dL 0.55-1.02 [facility] Comment on above: The validity of the calculated GFR & GFRAA in patients over 70 years has not been determined. Clinical correlation is essential. Serum or plasma low density lipoprotein (LDL) cholesterol measurement (mass/volume)Ordered By: Maury Flores on 11-17-2022 Cholesterol in LDL [Mass/Vol] 118 mg/dL 0-130 [facility] Serum or plasma urea nitroge n measurement (mass/volume)Ordered By: Maury Flores on 11-17-2022 Urea nitrogen [Mass/Vol] 16 mg/dL 7-18 [facility] Thin prep Papanicolaou smear with manual screeningOrdered By: Maury Flores on 11-17-2022 Thin prep Papanicolaou smear with manual screening 8 5-15 [facility] Absolute lymphocyte countOrd ered By: Dr. Ackerman on 07-29-2022 Lymphocytes Auto (Unsp spec) [#/Vol] 2.49 10*3/uL 0.83-4.51 [facility] Basophil percentageOrdered B y: Dr. Ackerman on 07-29-2022 Basophils/100 WBC (Bld) 0.4 % 0-1 [facility] Bilirubin [Mass/Vol] 0.40 mg/dL 0.20-1.00 [facility] Comment on above: For patients on eltr ombopag therapy, use of Dimension [place] TBIL is not recommended. Chloride [Moles/Vol] 107 mmol/L 98-107 [facility] Cholesterol [Mass/Vol] 168 mg/dL <200 [facility] Comment on above: <200 mg/dL Desirable 200-240 mg/dL Borderline >240 mg/dL High Risk Eosinophils/100 WBC (Bld) 0.8 % 0-5 [facility] Glucose [Mass/Vol] 111 mg/dL 74-106 [facility] Comment on above: Fasting Glucose resu lt from 100 to 125 mg/dL suggests IMPAIRED HOMEOSTASIS per A.D.A. criteria. Neutrophils (Bld) [#/Vol] 7.0 10*3/uL 2.0-7.7 [facility] Neutrophils/100 WBC (Bld) 67.4 % 47-70 [facility] Potassium [Moles/Vol] 3.4 mmol/L 3.5-5.1 [facility] Protein [Mass/Vol] 7.3 g/dL 6.4-8.2 [facility] Sodium [Moles/Vol] 141 mmol/L 136-145 [facility] Triglyceride [Mass/Vol] 96 mg/dL <199 [facility] Comment on above: The drugs N-Acetylcy steine and Metamizole may falsely depress this assay.Serum Triglycerides Reference Interval Normal <150 mg/dL Borderline high 150 - 199 mg/dL High 200 - 499 mg/dL Very High > or = 500 mg/dL WBC (Bld) [#/Vol] 10.4 10*3/uL 4.4-11.0 [facility] Blood erythrocytes count (nu mber/volume)Ordered By: Dr. Ackerman on 07-29-2022 RBC (Bld) [#/Vol] 4.59 10*6/uL 4.2-5.4 [facility] Blood hemoglobin measurement (mass/volume)Ordered By: Dr. Ackerman on 07-29-2022 Hemoglobin (Bld) [Mass/Vol] 12.2 g/dL 12.0-15.0 [facility] Blood lymphocytes/100 leukoc ytesOrdered By: Dr. Ackerman on 07-29-2022 Lymphocytes/100 WBC (Bld) 24.0 % 19-41 [facility] Blood monocytes/100 leukocyt esOrdered By: Dr. Ackerman on 07-29-2022 Monocytes/100 WBC (Bld) 7.0 % 0-10 [facility] Blood platelet mean volumeOr dered By: Dr. Ackerman on 07-29-2022 Platelet mean volume (Bld) [Entitic vol] 11.5 fL 6.2-12.0 [facility] Determination of erythrocyte mean corpuscular volume (MCV)Ordered By: Dr. Ackerman on 07-29-2022 MCV (RBC) [Entitic vol] 85.8 fL 81-99 [facility] Hematocrit Auto (Bld) [Volum e fraction]Ordered By: Dr. Ackerman on 07-29-2022 Hematocrit (Bld) [Volume fraction] 39.4 % 37-47 [facility] Laboratory - Chemistry and C hemistry - challengeOrdered By: Dr. Ackerman on 07-29-2022 ALP [Catalytic activity/Vol] 113 U/L 45-117 [facility] ALT [Catalytic activity/Vol] 30 U/L 13-56 [facility] CO2 [Moles/Vol] 27.0 mmol/L 21.0-32.0 [facility] Globulin (S) [Mass/Vol] 4.2 g/dL 2.2-4.2 [facility] Urea nitrogen/Creatinine [Mass ratio] 17.2 mg/mg 10-20 [facility] Laboratory - Hematology and Cell countsOrdered By: Dr. Ackerman on 07-29-2022 Erythrocyte distribution width (RBC) [Entitic vol] 48.9 fL 35.1-43.9 [facility] Erythrocyte distribution width (RBC) [Ratio] 15.6 % 11.6-14.6 [facility] Immature granulocytes/100 WBC (Bld) 0.400 % 0.0-0.9 [facility] Comment on above: IG% - Immature Granu locytes (promyelocytes, myelocytes and metamyelocytes) > 1% indicates that a LEFT SHIFT is Present. MCH (RBC) [Entitic mass] 26.6 pg 27.0-32.0 [facility] Nucleated RBC/100 WBC (Bld) [Ratio] 0 % 0-5 [facility] MCHC Auto (RBC) [Mass/Vol]Or dered By: Dr. Ackerman on 07-29-2022 MCHC (RBC) [Mass/Vol] 31.0 g/dL 32-36 [facility] No Panel InformationOrdered By: Dr. Ackerman on 07-29-2022 Estimated GFR (MDRD) Amer 120 mL/min >60 [facility] Comment on above: GFR Calc Estimated GFR (MDRD) Non-Af Amer 99 mL/min >60 [facility] Comment on above: Non- GFR Calc Platelets bldOrdered By: Dr. Ackerman on 07-29-2022 Platelets (Bld) [#/Vol] 249 10*3/uL 150-450 [facility] Serum or plasma albumin lakshmi urement (mass/volume)Ordered By: Dr. Ackerman on 07-29-2022 Albumin [Mass/Vol] 3.1 g/dL 3.2-5.0 [facility] Serum or plasma albumin/glob ulin mass ratioOrdered By: Dr. Ackerman on 07-29-2022 Albumin/Globulin [Mass ratio] 0.7 {ratio} 0.9-2.4 [facility] Serum or plasma calcium lakshmi urement (mass/volume)Ordered By: Dr. Ackerman on 07-29-2022 Calcium [Mass/Vol] 9.1 mg/dL 8.5-10.1 [facility] Serum or plasma cholesterol in HDL measurement (mass/volume)Ordered By: Dr. Ackerman on 07-29-2022 Cholesterol in HDL [Mass/Vol] 37 mg/dL >40 [facility] Comment on above: The drugs N-Acetylcy steine and Metamizole may falsely depress this assay. Reference Range HDL <40 mg/dL Low HDL Cholesterol HDL >or= 60 mg/dL High HDL Cholesterol Serum or plasma cholesterol in VLDL measurement (mass/volume)Ordered By: Dr. Ackerman on 07-29-2022 Cholesterol in VLDL [Mass/Vol] 19 mg/dL 5-40 [facility] Serum or plasma creatinine m easurement (mass/volume)Ordered By: Dr. Ackerman on 07-29-2022 Creatinine [Mass/Vol] 0.64 mg/dL 0.55-1.02 [facility] Comment on above: The validity of the calculated GFR & GFRAA in patients over 70 years has not been determined. Clinical correlation is essential. Serum or plasma low density lipoprotein (LDL) cholesterol measurement (mass/volume)Ordered By: Dr. Ackerman on 07-29-2022 Cholesterol in LDL [Mass/Vol] 112 mg/dL 0-130 [facility] Serum or plasma urea nitroge n measurement (mass/volume)Ordered By: Dr. Ackerman on 07-29-2022 Urea nitrogen [Mass/Vol] 11 mg/dL 7-18 [facility] Thin prep Papanicolaou smear with manual screeningOrdered By: Dr. Ackerman on 07-29-2022 Thin prep Papanicolaou smear with manual screening 15 U/L 15-37 [facility] Thin prep Papanicolaou smear with manual screening 7 5-15 [facility] Whole blood hemoglobin A1c/t otal hemoglobin ratio (mass fraction)Ordered By: Dr. Ackerman on 07-29-2022 HbA1c (Bld) [Mass fraction] 5.7 % 3.8-5.6 [facility] Comment on above: Normal < 5.7 % Predi abetic 5.7 - 6.4 % Diabetic >or= 6.5 % Please note range changes. Laboratory - Microbiology an d Antimicrobial susceptibilityOrdered By: Rosa Maria Abel on 05-26-2022 SARS-CoV-2 (COVID-19) RNA LAN+probe Ql (Unsp spec) Not detected Not Detect [facility] Comment on above: Normal Reference Ran ge: Not DetectedMethod:(RT-PCR) real-time reverse transcriptase PCRLuminex POONAM Instrument*The Food and Drug Administration (FDA) has issued an Emergency Use Authorization (EAU) for the POONAM SARS-CoV-2 Assay for the rapid detection of the virus that causes COVID-19. This test has been validated, but the FDAs independent review of this validation is pending.*Negative [...] on 03-21-2022 Chloride [Moles/Vol] 106 mmol/L 98-107 [facility] Glucose [Mass/Vol] 108 mg/dL 74-106 [facility] Comment on above: Fasting Glucose resu lt from 100 to 125 mg/dL suggests IMPAIRED HOMEOSTASIS per A.D.A. criteria. Potassium [Moles/Vol] 3.7 mmol/L 3.5-5.1 [facility] Sodium [Moles/Vol] 139 mmol/L 136-145 [facility] Laboratory - Chemistry and C hemistry - challengeOrdered By: Dr. Ackerman on 03-21-2022 CO2 [Moles/Vol] 25.0 mmol/L 21.0-32.0 [facility] Urea nitrogen/Creatinine [Mass ratio] 22.0 mg/mg 10- [facility] No Panel InformationOrdered By: Dr. Ackerman on 03-21-2022 Estimated GFR (MDRD) Amer 90 mL/min >60 [facility] Comment on above: GFR Calc Estimated GFR (MDRD) Non-Af Amer 75 mL/min >60 [facility] Comment on above: Non- GFR Calc Serum or plasma calcium lakshmi urement (mass/volume)Ordered By: Dr. Ackerman on 03-21-2022 Calcium [Mass/Vol] 9.6 mg/dL 8.5-10.1 [facility] Serum or plasma creatinine m easurement (mass/volume)Ordered By: Dr. Ackerman on 03-21-2022 Creatinine [Mass/Vol] 0.82 mg/dL 0.55-1.02 [facility] Comment on above: The validity of the calculated GFR & GFRAA in patients over 70 years has not been determined. Clinical correlation is essential. Serum or plasma urea nitroge n measurement (mass/volume)Ordered By: Dr. Ackerman on 03-21-2022 Urea nitrogen [Mass/Vol] 18 mg/dL 7-18 [facility] Thin prep Papanicolaou smear with manual screeningOrdered By: Dr. Ackerman on 03-21-2022 Thin prep Papanicolaou smear with manual screening 8 5-15 [facility] Basophil percentageon 2021 Chloride [Moles/Vol] 111 mmol/L 98-107 [facility] Work Phone: Glucose [Mass/Vol] 160 mg/dL 74-106 [facility] Work Phone: Comment on above: Fasting Glucose resu lt greater than or equal to 126 mg/dL suggests DIABETES MELLITUS per A.D.A. criteria. Potassium [Moles/Vol] 3.4 mmol/L 3.5-5.1 [facility] Work Phone: Comment on above: Slight Hemolysis, Re sult may be falsely increased. Sodium [Moles/Vol] 142 mmol/L 136-145 [facility] Work Phone: Laboratory - Chemistry and C hemistry - challengeon 01-03-2022 CO2 [Moles/Vol] 24.0 mmol/L 21.0-32.0 [facility] Work Phone: Urea nitrogen/Creatinine [Mass ratio] 14.0 mg/mg 10-20 [facility] Work Phone: No Panel Informationon 01-03 Estimated GFR (MDRD) Amer 95 mL/min >60 [facility] Work Phone: Comment on above: GFR Calc Estimated GFR (MDRD) Non-Af Amer 78 mL/min >60 [facility] Work Phone: Comment on above: Non- GFR Calc Serum or plasma calcium lakshmi urement (mass/volume)on 01-03-2022 Calcium [Mass/Vol] 9.0 mg/dL 8.5-10.1 [facility] Work Phone: Serum or plasma creatinine m easurement (mass/volume)on 01-03-2022 Creatinine [Mass/Vol] 0.79 mg/dL 0.55-1.02 [facility] Work Phone: Comment on above: The validity of the calculated GFR & GFRAA in patients over 70 years has not been determined. Clinical correlation is essential. Serum or plasma urea nitroge n measurement (mass/volume)on 01-03-2022 Urea nitrogen [Mass/Vol] 11 mg/dL 7-18 [facility] Work Phone: Thin prep Papanicolaou smear with manual screeningon 01-03-2022 Thin prep Papanicolaou smear with manual screening 10-03 [facility] Work Phone: Whole blood hemoglobin A1c/t otal hemoglobin ratio (mass fraction)on 01-03-2022 HbA1c (Bld) [Mass fraction] 5.8 % 3.8-5.6 [facility] Work Phone: Comment on above: Normal [...] the electronic medical record and with the chief nuclear medicine technologist. 467 microcuries of filtered technetium-99m sulfur colloid [...] AND RIGHT INGUINAL SENTINEL LYMPH NODES IDENTIFIED. Densitometrist: PSCB Transcribe Date/Time: Oct 07 2021 9:50A Dictated by : HARSHAL HE MD This examination was interpreted and the report reviewed and electronically signed by: HARSHAL HE MD on Oct 07 2021 5:14PM EST [id number] Normal [facility] Absolute lymphocyte counton 09-29-2021 Lymphocytes Auto (Unsp spec) [#/Vol] 2.83 10*3/uL 0.83-4.51 [facility] Work Phone: Basophil percentageon 2021 Basophils/100 WBC (Bld) 0.8 % 0-1 [facility] Work Phone: Bilirubin [Mass/Vol] 0.30 mg/dL 0.20-1.00 [facility] Work Phone: Comment on above: For patients on eltr ombopag therapy, use of Dimension [place] TBIL is not recommended. Chloride [Moles/Vol] 107 mmol/L 98-107 [facility] Work Phone: Eosinophils/100 WBC (Bld) 2.3 % 0-5 [facility] Work Phone: [phone] Glucose [Mass/Vol] 95 mg/dL 74-106 [facility] Work Phone: Neutrophils (Bld) [#/Vol] 4.2 10*3/uL 2.0-7.7 [facility] Work Phone: Neutrophils/100 WBC (Bld) 52.2 % 47-70 [facility] Work Phone: Potassium [Moles/Vol] 3.1 mmol/L 3.5-5.1 [facility] Work Phone: Protein [Mass/Vol] 7.1 g/dL 6.4-8.2 [facility] Work Phone: [phone] Sodium [Moles/Vol] 139 mmol/L 136-145 [facility] Work Phone: [phone] WBC (Bld) [#/Vol] 7.9 10*3/uL 4.4-11.0 [facility] Work Phone: Blood erythrocytes count (nu mber/volume)on 09-29-2021 RBC (Bld) [#/Vol] 4.47 10*6/uL 4.2-5.4 [facility] Work Phone: Blood hemoglobin measurement (mass/volume)on 09-29-2021 Hemoglobin (Bld) [Mass/Vol] 11.8 g/dL 12.0-15.0 [facility] Work Phone: Blood lymphocytes/100 leukoc yteson 09-29-2021 Lymphocytes/100 WBC (Bld) 35.7 % 19-41 [facility] Work Phone: Blood monocytes/100 leukocyt eson 09-29-2021 Monocytes/100 WBC (Bld) 8.6 % 0-10 [facility] Work Phone: Blood platelet mean volumeon 09-29-2021 Platelet mean volume (Bld) [Entitic vol] 11.0 fL 6.2-12.0 [facility] Work Phone: Determination of erythrocyte mean corpuscular volume (MCV)on 09-29-2021 MCV (RBC) [Entitic vol] 84.3 fL 81-99 [facility] Work Phone: Hematocrit Auto (Bld) [Volum e fraction]on 09-29-2021 Hematocrit (Bld) [Volume fraction] 37.7 % 37-47 [facility] Work Phone: Laboratory - Chemistry and C hemistry - challengeon 09-29-2021 ALP [Catalytic activity/Vol] 84 U/L 45-117 [facility] Work Phone: ALT [Catalytic activity/Vol] 27 U/L 13-56 [facility] Work Phone: CO2 [Moles/Vol] 23.0 mmol/L 21.0-32.0 [facility] Work Phone: Globulin (S) [Mass/Vol] 3.7 g/dL 2.2-4.2 [facility] Work Phone: Urea nitrogen/Creatinine [Mass ratio] 16.7 mg/mg 10-20 [facility] Work Phone: Laboratory - Hematology and Cell countson 09-29-2021 Erythrocyte distribution width (RBC) [Entitic vol] 46.1 fL 35.1-43.9 [facility] Work Phone: Erythrocyte distribution width (RBC) [Ratio] 15.0 % 11.6-14.6 [facility] Work Phone: Immature granulocytes/100 WBC (Bld) 0.400 % 0.0-0.9 [facility] Work Phone: Comment on above: IG% - Immature Granu locytes (promyelocytes, myelocytes and metamyelocytes) > 1% indicates that a LEFT SHIFT is Present. MCH (RBC) [Entitic mass] 26.4 pg 27.0-32.0 [facility] Work Phone: Nucleated RBC/100 WBC (Bld) [Ratio] 0 % 0-5 [facility] Work Phone: MCHC Auto (RBC) [Mass/Vol]on 09-29-2021 MCHC (RBC) [Mass/Vol] 31.3 g/dL 32-36 [facility] Work Phone: No Panel Informationon 09-29 Estimated GFR (MDRD) Amer 88 mL/min >60 [facility] Work Phone: Comment on above: GFR Calc Estimated GFR (MDRD) Non-Af Amer 73 mL/min >60 [facility] Work Phone: Comment on above: Non- GFR Calc Thyroid Stimulating Hormone (TSH) 1.20 uIU/mL 0.358-3.74 [facility] Work Phone: Platelets bldon 09-29-2021 Platelets (Bld) [#/Vol] 260 10*3/uL 150-450 [facility] Work Phone: Serum or plasma albumin lakshmi urement (mass/volume)on 09-29-2021 Albumin [Mass/Vol] 3.4 g/dL 3.2-5.0 [facility] Work Phone: Serum or plasma albumin/glob ulin mass ratioon 09-29-2021 Albumin/Globulin [Mass ratio] 0.9 {ratio} 0.9-2.4 [facility] Work Phone: Serum or plasma calcium lakshmi urement (mass/volume)on 09-29-2021 Calcium [Mass/Vol] 9.0 mg/dL 8.5-10.1 [facility] Work Phone: Serum or plasma creatinine m easurement (mass/volume)on 09-29-2021 Creatinine [Mass/Vol] 0.84 mg/dL 0.55-1.[address] [facility] Work Phone: Comment on above: The validity of the calculated GFR & GFRAA in patients over 70 years has not been determined. Clinical correlation is essential. Serum or plasma urea nitroge n measurement (mass/volume)on 09-29-2021 Urea nitrogen [Mass/Vol] 14 mg/dL 7-18 [facility] Work Phone: Thin prep Papanicolaou smear with manual screeningon 09-29-2021 Thin prep Papanicolaou smear with manual screening 20 U/L 15-37 [facility] Work Phone: Thin prep Papanicolaou smear with manual screening 9 5-15 [facility] Work Phone: Absolute lymphocyte counton 07-30-2021 Lymphocytes Auto (Unsp spec) [#/Vol] 1.90 10*3/uL 0.83-4.51 [facility] Work Phone: Basophil percentageon 2021 Basophils/100 WBC (Bld) 1.1 % 0-1 [facility] Work Phone: Chloride [Moles/Vol] 107 mmol/L 98-107 [facility]: Cholesterol [Mass/Vol] 198 mg/dL <200 [facility] Work Phone: Comment on above: <200 mg/dL Desirable 200-240 mg/dL Borderline >240 mg/dL High Risk Eosinophils/100 WBC (Bld) 2.4 % 0-5 [facility] Work Phone: Glucose [Mass/Vol] 111 mg/dL 74-106 [facility] Work Phone: Comment on above: Fasting Glucose resu lt from 100 to 125 mg/dL suggests IMPAIRED HOMEOSTASIS per A.D.A. criteria. Neutrophils (Bld) [#/Vol] 4.7 10*3/uL 2.0-7.7 [facility] Work Phone: Neutrophils/100 WBC (Bld) 63.1 % 47-70 [facility] Work Phone: Potassium [Moles/Vol] 3.5 mmol/L 3.5-5.1 [facility] Work Phone: Sodium [Moles/Vol] 139 mmol/L 136-145 [facility] Work Phone: Triglyceride [Mass/Vol] 131 mg/dL [facility] Work Phone: Comment on above: The drugs N-Acetylcy steine and Metamizole may falsely depress this assay.Serum Triglycerides Reference Interval Normal <150 mg/dL Borderline high 150 - 199 mg/dL High 200 - 499 mg/dL Very High > or = 500 mg/dL WBC (Bld) [#/Vol] 7.4 10*3/uL 4.4-11.0 [facility] Work Phone: Blood erythrocytes count (nu mber/volume)on 07-30-2021 RBC (Bld) [#/Vol] 4.69 10*6/uL 4.2-5.4 [facility] Work Phone: Blood hemoglobin measurement (mass/volume)on 07-30-2021 Hemoglobin (Bld) [Mass/Vol] 12.6 g/dL 12.0-15.0 [facility] Work Phone: Blood lymphocytes/100 leukoc yteson 07-30-2021 Lymphocytes/100 WBC (Bld) 25.8 % 19-41 [facility] Work Phone: Blood monocytes/100 leukocyt eson 07-30-2021 Monocytes/100 WBC (Bld) 7.2 % 0-10 [facility] Work Phone: Blood platelet mean volumeon 07-30-2021 Platelet mean volume (Bld) [Entitic vol] 11.0 fL 6.2-12.0 [facility] Work Phone: Determination of erythrocyte mean corpuscular volume (MCV)on 07-30-2021 MCV (RBC) [Entitic vol] 85.1 fL 81-99 [facility] Work Phone: Hematocrit Auto (Bld) [Volum e fraction]on 07-30-2021 Hematocrit (Bld) [Volume fraction] 39.9 % 37-47 [facility] Work Phone: Laboratory - Chemistry and C hemistry - challengeon 07-30-2021 CO2 [Moles/Vol] 26.0 mmol/L 21.0-32.0 [facility] Work Phone: Cobalamin (Vitamin B12) [Mass/Vol] 578 pg/mL 211-911 [facility] Work Phone: Magnesium [Mass/Vol] 2.5 mg/dL 1.6-2.6 [facility] Work Phone: Urea nitrogen/Creatinine [Mass ratio] 15.3 mg/mg 10-20 [facility] Work Phone: Laboratory - Hematology and Cell countson 07-30-2021 Erythrocyte distribution width (RBC) [Entitic vol] 44.1 fL 35.1-43.9 [facility] Work Phone: Erythrocyte distribution width (RBC) [Ratio] 14.3 % 11.6-14.6 [facility] Work Phone: Immature granulocytes/100 WBC (Bld) 0.400 % 0.0-0.9 [facility] Work Phone: Comment on above: IG% - Immature Granu locytes (promyelocytes, myelocytes and metamyelocytes) > 1% indicates that a LEFT SHIFT is Present. MCH (RBC) [Entitic mass] 26.9 pg 27.0-32.0 [facility] Work Phone: Nucleated RBC/100 WBC (Bld) [Ratio] 0 % 0-5 [facility] Work Phone: MCHC Auto (RBC) [Mass/Vol]on 07-30-2021 MCHC (RBC) [Mass/Vol] 31.6 g/dL 32-36 [facility] Work Phone: No Panel Informationon 07-30 Estimated GFR (MDRD) Amer 105 mL/min >60 [facility] Work Phone: Comment on above: GFR Calc Estimated GFR (MDRD) Non-Af Amer 87 mL/min >60 [facility] Work Phone: Comment on above: Non- GFR Calc Thyroid Stimulating Hormone (TSH) 1.10 uIU/mL 0.358-3.74 [facility] Work Phone: Platelets bldon 07-30-2021 Platelets (Bld) [#/Vol] 276 10*3/uL 150-450 [facility] Work Phone: Serum or plasma calcium lakshmi urement (mass/volume)on 07-30-2021 Calcium [Mass/Vol] 9.2 mg/dL 8.5-10.1 [facility] Work Phone: Serum or plasma cholesterol in HDL measurement (mass/volume)on 07-30-2021 Cholesterol in HDL [Mass/Vol] 39 mg/dL [facility] Work Phone: Comment on above: The drugs N-Acetylcy steine and Metamizole may falsely depress this assay. Reference Range HDL <40 mg/dL Low HDL Cholesterol HDL >or= 60 mg/dL High HDL Cholesterol Serum or plasma cholesterol in VLDL measurement (mass/volume)on 07-30-2021 Cholesterol in VLDL [Mass/Vol] 26 mg/dL 5-40 [facility] Work Phone: Serum or plasma creatinine m easurement (mass/volume)on 07-30-2021 Creatinine [Mass/Vol] 0.72 mg/dL 0.55-1.02 [facility] Work Phone: Comment on above: The validity of the calculated GFR & GFRAA in patients over 70 years has not been determined. Clinical correlation is essential. Serum or plasma ferritin jeni surement (mass/volume)on 07-30-2021 Ferritin [Mass/Vol] 61 ng/mL 8-252 [facility] Work Phone: Serum or plasma low density lipoprotein (LDL) cholesterol measurement (mass/volume)on 07-30-2021 Cholesterol in LDL [Mass/Vol] 133 mg/dL 0-130 [facility] Work Phone: Serum or plasma urea nitroge n measurement (mass/volume)on 07-30-2021 Urea nitrogen [Mass/Vol] 11 mg/dL 7-18 [facility] Work Phone: Thin prep Papanicolaou smear with manual screeningon 07-30-2021 Thin prep Papanicolaou smear with manual screening 6 5-15 [facility] Work Phone: CNOVon 12-14-2016 CNOV Office Visit (UCWSTR) CHELECLARIBEL Hogue ([id number]) 1955 [facility] Time Provider Department12/14/16 3:00 PM AILYN MEDEIROS (AMAIRANI) WSTR During your visit today, we recorded the following information about you: Temperature Pulse Respiration Blood pressure 99 degrees 78/minute 16/minute 172/88 Weight 83.9 kgAilyn Medeiros CNP 12/14/2016 4:35 PM SignedPatient is a 61 year old female presenting with knee pain. The history isprovided by the patient. No assistant speech language pathologist was used.Knee PainPertinent negatives include no fever.VIRA Claribel Allison is a 61 year old [...] for cough, sputum production, shortness of breath andwheezing.Cardiovasc ular: Negative for chest pain.Musculoskeletal: Positive for joint pain (left knee, swelling, pain withmovement and touch on inner lateral knee). Negative for myalgias.Skin: Negative for rash.Neurological: Negative for headaches.Physical ExamConstitutional: She is oriented to person, place, and time and well-developed,well-no urished, and in no distress. No distress.HENT:Head: Normocephalic and atraumatic.Eyes: Conjunctivae and EOM are normal. Pupils are equal, round, and reactive tolight.Neck: Normal range of motion. Neck supple.Pulmonary/Chest : Effort normal.Musculoskeletal : Left knee: She exhibits decreased range of [...] and dry.Psychiatric: Affect normal.Nursing note and vitals reviewed.ASSESSMENT/PL AN:1. Acute pain of left knee - ICD9: [...] ER evaluation.Rl Broussard CNP 12/14/2016 3:45 PM SignedASSESSMENT/PLAN: 1. Acute pain of left knee - [...] of left knee [M25.562]Order(s):XR KNEE AP/LAT LT [[id number]] Order #: [id number]. #:[id number] methylPREDNISolone (MEDROL, ABBIE,) 4 mg Dose-PackFollow dosing instructions, take with food.Disp: 1 PackageRfl: 0 CONSULT TO ORTHOPAEDICS [9026] Order #: [id number]: 1Prescriptions as of 12/14/2016 Sig: METHYLPREDNISOLONE 4 MG TABLE* Follow dosing instructions, t*Medication notes this encounter MELOXICAM 15 MG TABLET >> Jolene Santiago Ma 12/14/2016 3:03 PM >> JOLENE SANTIAGO MA Wed Dec 14, 2016 3:03 PM done TRAMADOL 50 [...] Pain. Disc: Course of therapy completedEncounter Number: [id number] Status:Closed by AILYN MEDEIROS CNP on 12/14/16 Normal [facility] PROGRESSon 12-14-2016 PROGRESS HNO ID: [id number]: Ailyn Petty) Tataervice: (none)Author Type: Nurse PractitionerType: Progress NotesFiled: 12/14/2016 4:35 PMNote Text:Patient is a 61 year old female presenting with knee pain. The history isprovided by the patient. No assistant speech language pathologist was used.Knee PainPertinent negatives include no fever.HPI Claribel Allison is a 61 year old female who presents today for CC ofleft knee pain This started 3 weeks ago when she was at work and the toemotor pushed skid of pallets into her knee. Initially she did not havemuch problems, but the past 2 days it has worsened significantly.Initiall y she didn't do any treatment but ice, over the past couple daysshe has used ibuprofen with relief. Symptoms are worsened by walking.Risk factors trauma to the knee. PMH previous injury to same knee 5 yearsago, no intervention.Review of SystemsConstitutional: Negative. Negative for chills, fever and malaise/fatigue.HENT: Negative for congestion, ear pain and sore throat.Respiratory: Negative for cough, sputum production, shortness of breathand wheezing.Cardiovascula r: Negative for chest pain.Musculoskeletal: Positive for joint [...] to light.Neck: Normal range of motion. Neck supple.Pulmonary/Chest : Effort normal.Musculoskeletal : Left knee: She exhibits decreased range of [...] and dry.Psychiatric: Affect normal.Nursing note and vitals reviewed.ASSESSMENT/PL AN:1. Acute pain of left knee - ICD9: [...] in detail warranting prompt ER evaluation.Ailyn Medeiros, AMAIRANI Normal [facility] PROGRESS HNO ID: [id number]: Yanet Patton (Rt) Johann Irving: (none)Author Type: TechnicianType: Progress NotesFiled: 12/14/2016 3:26 PMNote Text: Radiology Service Progress NotePATIENT NAME: Claribel AllisonMRN: [id number] OF SERVICE: December 14, 2016TIME: 3:26 PMPATIENT IDENTITY VERIFICATION COMPLETED USING TWO (2) METHODS: Patientconfirmed name verbally and Date of .PATIENT GENDER DATA: Female. status: : NoBreastfeeding status: NO.PATIENT RELEVANT IMPLANT DATA REVIEWED: Not ApplicableRADIOLOGY DEPARTMENT: General X-ray: Exam(s) Completed: Lower ExtremityX-Ray(s): Knee, AP / LAT Left:PERIPHERAL IV DATA: Not applicableSIGNED BY: RT Richievincent 2016 3:26 PM [facility] XR KNEE AP/LATon 12-14-2016 XR KNEE AP/LAT [...] lateral views of the left knee are presented.FINDINGS:Lef t knee:No fractures or subluxations are noted.Interval worsening of medial compartmental joint space narrowing.There is tricompartmental osteophyte formation.There appears to be varus deformity.There is a small joint effusion.The mineralization of the bones is normal.There is no significant soft tissue swelling.Right knee: Degenerative changes.IMPRESSION: Findings are suggestive of osteoarthritis of the left knee with small joint effusion. Overall findings worsened.Nuclear Officer ist: PSCB Transcribe Date/Time: Dec 14 2016 3:36PDictated by : DIOGENES BUCIO MDThis examination was interpreted and the report reviewed and electronically signed by: DIOGENES BUCIO MD on Dec 14 2016 3:40PM EST Normal [facility] Vital Signs Date Time Vital Sign Value Performing Clinician Facility 03-23-2025 08:08-0500 Body temperature 97.7 [degF] Dr. Abdulaziz Ackerman MD Work Phone: [facility] 03-23-2025 08:08-0500 Diastolic blood pressure 59 mm[Hg] Dr. Abdulaziz Ackerman MD Work Phone: [facility] 03-23-2025 08:08-0500 Heart rate 74 /min Dr. Abdulaziz Ackerman MD Work Phone: [facility] 03-23-2025 08:08-0500 Respiratory rate 17 /min Dr. Abdulaziz Ackerman MD Work Phone: [facility] 03-23-2025 08:08-0500 SaO2% (BldA) [Mass fraction] 92 % Dr. Abdulaziz Ackerman MD Work Phone: [facility] 03-23-2025 08:08-0500 Systolic blood pressure 98 mm[Hg] Dr. Abdulaziz Ackerman MD Work Phone: [facility] 03-23-2025 03:21-0500 Body mass index (BMI) [Ratio] 32 kg/m2 Dr. Abdulaziz Ackerman MD Work Phone: [facility] 03-23-2025 03:21-0500 Body weight [address] Abdulaziz Ackerman MD Work Phone: [facility] 03-21-2025 09:45-0400 Body height 167.[address] Abdulaziz Ackerman MD Work Phone: [facility] 03-21-2025 07:22-0400 Inhaled oxygen flow rate 2 L/min Dr. Abdulaziz Ackerman MD Work Phone: [facility] 03-20-2025 11:06-0400 Inhaled oxygen concentration 2 % Dr. Abdulaziz Ackerman MD Work Phone: [facility] 02-14-2025 07:45-0400 Body mass index (BMI) [Ratio] 29.8 kg/m2 Dr. Abdulaziz Ackerman MD Work Phone: [facility] 02-14-2025 07:45-0400 Body weight 83.[address] Abdulaziz Ackerman MD Work Phone: [facility] 02-14-2025 07:45-0400 Diastolic blood pressure 73 mm[Hg] Dr. Abdulaziz Ackerman MD Work Phone: [facility] 02-14-2025 07:45-0400 Heart rate 86 /min Dr. Abdulaziz Ackerman MD Work Phone: [facility] 02-14-2025 07:45-0400 Respiratory rate 20 /min Dr. Abdulaziz Ackerman MD Work Phone: [facility] 02-14-2025 07:45-0400 SaO2% (BldA) [Mass fraction] 95 % Dr. Abdulaziz Ackerman MD Work Phone: [facility] 02-14-2025 07:45-0400 Systolic blood pressure 111 mm[Hg] Dr. Abdulaziz Ackerman MD Work Phone: [facility] 01-23-2025 12:57-0400 Body height 167.[address] Abdulaziz Ackerman MD Work Phone: [facility] 01-23-2025 12:57-0400 Body mass index (BMI) [Ratio] 31.8 kg/m2 Dr. Abdulaziz Ackerman MD Work Phone: [facility] 01-23-2025 12:57-0400 Body weight 89.[address] Abdulaziz Ackerman MD Work Phone: [facility] 01-23-2025 12:57-0400 Diastolic blood pressure 92 mm[Hg] Dr. Abdulaziz Ackerman MD Work Phone: [facility] 01-23-2025 12:57-0400 Heart rate 92 /min Dr. Abdulaziz Ackerman MD Work Phone: [facility] 01-23-2025 12:57-0400 Respiratory rate 20 /min Dr. Abdulaziz Ackerman MD Work Phone: [facility] 01-23-2025 12:57-0400 SaO2% (BldA) [Mass fraction] 94 % Dr. Abdulaziz Ackerman MD Work Phone: [facility] 01-23-2025 12:57-0400 Systolic blood pressure 127 mm[Hg] Dr. Abdulaziz Ackerman MD Work Phone: [facility] 01-13-2025 13:31-0400 Body height 167.[address] Abdulaziz Ackerman MD Work Phone: [facility] 01-13-2025 13:31-0400 Body mass index (BMI) [Ratio] 31.1 kg/m2 Dr. Abdulaziz Ackerman MD Work Phone: [facility] 01-13-2025 13:31-0400 Body temperature 99.1 [degF] Dr. Abdulaziz Ackerman MD Work Phone: [facility] 01-13-2025 13:31-0400 Body weight 87.[address] Abdulaziz Ackerman MD Work Phone: [facility] 01-13-2025 13:31-0400 Diastolic blood pressure 70 mm[Hg] Dr. Abdulaziz Ackerman MD Work Phone: [facility] 01-13-2025 13:31-0400 Heart rate 60 /min Dr. Abdulaziz Ackerman MD Work Phone: [facility] 01-13-2025 13:31-0400 Respiratory rate 16 /min Dr. Abdulaziz Ackerman MD Work Phone: [facility] 01-13-2025 13:31-0400 SaO2% (BldA) [Mass fraction] 99 % Dr. Abdulaziz Ackerman MD Work Phone: [facility] 01-13-2025 13:31-0400 Systolic blood pressure 126 mm[Hg] Dr. Abdulaziz Ackerman MD Work Phone: [facility] 12-14-2024 14:25-0400 Body temperature 98 [degF] Dr. Abdulaziz Ackerman MD Work Phone: [facility] 12-14-2024 14:25-0400 Diastolic blood pressure 63 mm[Hg] Dr. Abdulaziz Ackerman MD Work Phone: [facility] 12-14-2024 14:25-0400 Heart rate 88 /min Dr. Abdulaziz Ackerman MD Work Phone: [facility] 12-14-2024 14:25-0400 Respiratory rate 15 /min Dr. Abdulaziz Ackerman MD Work Phone: [facility] 12-14-2024 14:25-0400 SaO2% (BldA) [Mass fraction] 95 % Dr. Abdulaziz Ackerman MD Work Phone: [facility] 12-14-2024 14:25-0400 Systolic blood pressure 113 mm[Hg] Dr. Abdulaziz Ackerman MD Work Phone: [facility] 12-14-2024 05:15-0400 Body mass index (BMI) [Ratio] 31.5 kg/m2 Dr. Abdulaziz Ackerman MD Work Phone: [facility] 12-14-2024 05:15-0400 Body weight 88.[address] Abdulaziz Ackerman MD Work Phone: [facility] 12-13-2024 14:00-0400 Inhaled oxygen flow rate 2 L/min Dr. Abdulaziz Ackerman MD Work Phone: [facility] 12-11-2024 11:26-0400 Body height 167.[address] Abdulaziz Ackerman MD Work Phone: [facility] 12-11-2024 00:10-0400 Body height 167.[address] Abdulaziz Ackerman MD Work Phone: [facility] 12-11-2024 00:10-0400 Body mass index (BMI) [Ratio] 32.9 kg/m2 Dr. Abdulaziz Ackerman MD Work Phone: [facility] 12-11-2024 00:10-0400 Body weight 92.[address] Abdulaziz Ackerman MD Work Phone: [facility] 12-10-2024 23:00-0400 Diastolic blood pressure 69 mm[Hg] Dr. Abdulaziz Ackerman MD Work Phone: [facility] 12-10-2024 23:00-0400 Heart rate 82 /min Dr. Abdulaziz Ackerman MD Work Phone: [facility] 12-10-2024 23:00-0400 Respiratory rate 25 /min Dr. Abdulaziz Ackerman MD Work Phone: [facility] 12-10-2024 23:00-0400 SaO2% (BldA) [Mass fraction] 99 % Dr. Abdulaziz Ackerman MD Work Phone: [facility] 12-10-2024 23:00-0400 Systolic blood pressure 129 mm[Hg] Dr. Abdulaziz Ackerman MD Work Phone: [facility] 12-10-2024 22:05-0400 Body temperature 97.2 [degF] Dr. Abdulaziz Ackerman MD Work Phone: [facility] 12-10-2024 19:08-0400 Inhaled oxygen flow rate 2 L/min Dr. Abdulaziz Ackerman MD Work Phone: [facility] 11-25-2024 12:34-0400 Body height 165.[address] Abdulaziz Ackerman MD Work Phone: [facility] 11-25-2024 12:34-0400 Body mass index (BMI) [Ratio] 32.1 kg/m2 Dr. Abdulaziz Ackerman MD Work Phone: [facility] 11-25-2024 12:34-0400 Body temperature 99.6 [degF] Dr. Abdulaziz Ackerman MD Work Phone: [facility] 11-25-2024 12:34-0400 Body weight 87.[address] Abdulaziz Ackerman MD Work Phone: [facility] 11-25-2024 12:34-0400 Diastolic blood pressure 80 mm[Hg] Dr. Abdulaziz Ackerman MD Work Phone: [facility] 11-25-2024 12:34-0400 Heart rate 92 /min Dr. Abdulaziz Ackerman MD Work Phone: [facility] 11-25-2024 12:34-0400 Respiratory rate 22 /min Dr. Abdulaziz Ackerman MD Work Phone: [facility] 11-25-2024 12:34-0400 SaO2% (BldA) [Mass fraction] 99 % Dr. Abdulaziz Ackerman MD Work Phone: [facility] 11-25-2024 12:34-0400 Systolic blood pressure 138 mm[Hg] Dr. Abdulaziz Ackerman MD Work Phone: [facility] 10-25-2024 08:12-0400 Body height 165.[address] Abdulaziz Ackerman MD Work Phone: [facility] 10-25-2024 08:12-0400 Body mass index (BMI) [Ratio] 33.1 kg/m2 Dr. Abdulaziz Ackerman MD Work Phone: [facility] 10-25-2024 08:12-0400 Body temperature 98 [degF] Dr. Abdulaziz Ackerman MD Work Phone: [facility] 10-25-2024 08:12-0400 Body weight 90.[address] Abdulaziz Ackerman MD Work Phone: [facility] 10-25-2024 08:12-0400 Diastolic blood pressure 82 mm[Hg] Dr. Abdulaziz Ackerman MD Work Phone: [facility] 10-25-2024 08:12-0400 Heart rate 102 /min Dr. Abdulaziz Ackerman MD Work Phone: [facility] 10-25-2024 08:12-0400 Respiratory rate 18 /min Dr. Abdulaziz Ackerman MD Work Phone: [facility] 10-25-2024 08:12-0400 SaO2% (BldA) [Mass fraction] 93 % Dr. Abdulaziz Ackerman MD Work Phone: [facility] 10-25-2024 08:12-0400 Systolic blood pressure 144 mm[Hg] Dr. Abdulaziz Ackerman MD Work Phone: [facility] 09-27-2024 08:57-0400 Body height 165.[address] Abdulaziz Ackerman MD Work Phone: [facility] 09-27-2024 08:57-0400 Body mass index (BMI) [Ratio] 33.3 kg/m2 Dr. Abdulaziz Ackerman MD Work Phone: [facility] 09-27-2024 08:57-0400 Body temperature 97.6 [degF] Dr. Abdulaziz Ackerman MD Work Phone: [facility] 09-27-2024 08:57-0400 Body weight 90.[address] Abdulaziz Ackerman MD Work Phone: [facility] 09-27-2024 08:57-0400 Diastolic blood pressure 70 mm[Hg] Dr. Abdulaziz Ackerman MD Work Phone: [facility] 09-27-2024 08:57-0400 Heart rate 89 /min Dr. Abdulaziz Ackerman MD Work Phone: [facility] 09-27-2024 08:57-0400 Respiratory rate 20 /min Dr. Abdulaziz Ackerman MD Work Phone: [facility] 09-27-2024 08:57-0400 SaO2% (BldA) [Mass fraction] 99 % Dr. Abdulaziz Ackerman MD Work Phone: [facility] 09-27-2024 08:57-0400 Systolic blood pressure 120 mm[Hg] Dr. Abdulaziz Ackerman MD Work Phone: [facility] 09-06-2024 08:39-0400 Body mass index (BMI) [Ratio] 34.4 kg/m2 Dr. Abdulaziz Ackerman MD Work Phone: [facility] 09-06-2024 08:39-0400 Body temperature 96.7 [degF] Dr. Abdulaziz Ackerman MD Work Phone: [facility] 09-06-2024 08:39-0400 Body weight 94.[address] Abdulaziz Ackerman MD Work Phone: [facility] 09-06-2024 08:39-0400 Diastolic blood pressure 78 mm[Hg] Dr. Abdulaziz Ackerman MD Work Phone: [facility] 09-06-2024 08:39-0400 Heart rate 97 /min Dr. Abdulaziz Ackerman MD Work Phone: [facility] 09-06-2024 08:39-0400 Respiratory rate 20 /min Dr. Abdulaziz Ackerman MD Work Phone: [facility] 09-06-2024 08:39-0400 SaO2% (BldA) [Mass fraction] 97 % Dr. Abdulaziz Ackerman MD Work Phone: [facility] 09-06-2024 08:39-0400 Systolic blood pressure 130 mm[Hg] Dr. Abdulaziz Ackerman MD Work Phone: [facility] 08-25-2024 09:00-0400 Body temperature 98.3 [degF] Dr. Abdulaziz Ackerman MD Work Phone: [facility] 08-25-2024 09:00-0400 Diastolic blood pressure 72 mm[Hg] Dr. Abdulaziz Ackerman MD Work Phone: [facility] 08-25-2024 09:00-0400 Heart rate 82 /min Dr. Abdulaziz Ackerman MD Work Phone: [facility] 08-25-2024 09:00-0400 Respiratory rate 20 /min Dr. Abdulaziz Ackerman MD Work Phone: [facility] 08-25-2024 09:00-0400 SaO2% (BldA) [Mass fraction] 94 % Dr. Abdulaziz Ackerman MD Work Phone: [facility] 08-25-2024 09:00-0400 Systolic blood pressure 138 mm[Hg] Dr. Abdulaziz Ackerman MD Work Phone: [facility] 08-25-2024 05:29-0400 Body mass index (BMI) [Ratio] 34.9 kg/m2 Dr. Abdulaziz Ackerman MD Work Phone: [facility] 08-25-2024 05:29-0400 Body weight 95.[address] Abdulaziz Ackerman MD Work Phone: [facility] 08-22-2024 09:16-0400 Body height 165.[address] Abdulaziz Ackerman MD Work Phone: [facility] 08-22-2024 07:13-0400 Inhaled oxygen flow rate 3 L/min Dr. Abdulaziz Ackerman MD Work Phone: [facility] 08-21-2024 14:20-0400 Body temperature 97.1 [degF] Dr. Abdulaziz Ackerman MD Work Phone: [facility] 08-21-2024 14:20-0400 Diastolic blood pressure 80 mm[Hg] Dr. Abdulaziz Ackerman MD Work Phone: [facility] 08-21-2024 14:20-0400 Heart rate 86 /min Dr. Abdulaziz Ackerman MD Work Phone: [facility] 08-21-2024 14:20-0400 Inhaled oxygen flow rate 3 L/min Dr. Abdulaziz Ackerman MD Work Phone: [facility] 08-21-2024 14:20-0400 Respiratory rate 22 /min Dr. Abdulaziz Ackerman MD Work Phone: [facility] 08-21-2024 14:20-0400 SaO2% (BldA) [Mass fraction] 94 % Dr. Abdulaziz Ackerman MD Work Phone: [facility] 08-21-2024 14:20-0400 Systolic blood pressure 119 mm[Hg] Dr. Abdulaziz Ackerman MD Work Phone: [facility] 08-21-2024 11:10-0400 Body height 165.[address] Abdulaziz Ackerman MD Work Phone: [facility] 08-21-2024 11:10-0400 Body mass index (BMI) [Ratio] 36.8 kg/m2 Dr. Abdulaziz Ackerman MD Work Phone: [facility] 08-21-2024 11:10-0400 Body weight 100.[address] Abdulaziz Ackerman MD Work Phone: [facility] 07-31-2024 09:26-0400 Body height 165.[address] Abdulaziz Ackerman MD Work Phone: [facility] 07-31-2024 09:26-0400 Body mass index (BMI) [Ratio] 33.3 kg/m2 Dr. Abdulaziz Ackerman MD Work Phone: [facility] 07-31-2024 09:26-0400 Body temperature 97.9 [degF] Dr. Abdulaziz Ackerman MD Work Phone: [facility] 07-31-2024 09:26-0400 Body weight 90.[address] Abdulaziz Ackerman MD Work Phone: [facility] 07-31-2024 09:26-0400 Diastolic blood pressure 76 mm[Hg] Dr. Abdulaziz Ackerman MD Work Phone: [facility] 07-31-2024 09:26-0400 Heart rate 92 /min Dr. Abdulaziz Ackerman MD Work Phone: [facility] 07-31-2024 09:26-0400 Respiratory rate 20 /min Dr. Abdulaziz Ackerman MD Work Phone: [facility] 07-31-2024 09:26-0400 SaO2% (BldA) [Mass fraction] 92 % Dr. Abdulaziz Ackerman MD Work Phone: [facility] 07-31-2024 09:26-0400 Systolic blood pressure 122 mm[Hg] Dr. Abdulaziz Ackerman MD Work Phone: [facility] 07-24-2024 14:18-0500 Body mass index (BMI) [Ratio] 35.4 kg/m2 Dr. Abdulaziz Ackerman MD Work Phone: [facility] 07-24-2024 14:18-0500 Body temperature 98.2 [degF] Dr. Abdulaziz Ackerman MD Work Phone: [facility] 07-24-2024 14:18-0500 Body weight 96.[address] Abdulaziz Ackerman MD Work Phone: [facility] 07-24-2024 14:18-0500 Diastolic blood pressure 72 mm[Hg] Dr. Abdulaziz Ackerman MD Work Phone: [facility] 07-24-2024 14:18-0500 Heart rate 63 /min Dr. Abdulaziz Ackerman MD Work Phone: [facility] 07-24-2024 14:18-0500 Respiratory rate 19 /min Dr. Abdulaziz Ackerman MD Work Phone: [facility] 07-24-2024 14:18-0500 SaO2% (BldA) [Mass fraction] 93 % Dr. Abdulaziz Ackerman MD Work Phone: [facility] 07-24-2024 14:18-0500 Systolic blood pressure 130 mm[Hg] Dr. Abdulaziz Ackerman MD Work Phone: [facility] 07-28-2023 08:07-0500 Body height 165.[address] Abdulaziz Ackerman Work Phone: [facility] 07-28-2023 08:07-0500 Body mass index (BMI) [Ratio] 29.8 kg/m2 Dr. Abdulaziz Ackerman Work Phone: [facility] 07-28-2023 08:07-0500 Body temperature 97.7 [degF] Dr. Abdulaziz Ackerman Work Phone: [facility] 07-28-2023 08:07-0500 Body weight 81.[address] Abdulaziz Ackerman Work Phone: [facility] 07-28-2023 08:07-0500 Diastolic blood pressure 86 mm[Hg] Dr. Abdulaziz Ackerman Work Phone: [facility] 07-28-2023 08:07-0500 Heart rate 61 /min Dr. Abdulaziz Ackerman Work Phone: [facility] 07-28-2023 08:07-0500 Respiratory rate 16 /min Dr. Abdulaziz Ackerman Work Phone: [facility] 07-28-2023 08:07-0500 SaO2% (BldA) [Mass fraction] 99 % Dr. Abdulaziz Ackerman Work Phone: [facility] 07-28-2023 08:07-0500 Systolic blood pressure 136 mm[Hg] Dr. Abdulaziz Ackerman Work Phone: [facility] 06-13-2023 14:23-0500 Body height 165.[address] Abdulaziz Ackerman Work Phone: [facility] 06-13-2023 14:23-0500 Body mass index (BMI) [Ratio] 29.6 kg/m2 Dr. Abdulaziz Ackerman Work Phone: [facility] 06-13-2023 14:23-0500 Body temperature 97.2 [degF] Dr. Abdulaziz Ackerman Work Phone: [facility] 06-13-2023 14:23-0500 Body weight 80.[address] Abdulaziz Ackerman Work Phone: [facility] 06-13-2023 14:23-0500 Diastolic blood pressure 80 mm[Hg] Dr. Abdulaziz Ackerman Work Phone: [facility] 06-13-2023 14:23-0500 Heart rate 54 /min Dr. Abdulaziz Ackerman Work Phone: [facility] 06-13-2023 14:23-0500 Respiratory rate 16 /min Dr. Abdulaziz Ackerman Work Phone: [facility] 06-13-2023 14:23-0500 SaO2% (BldA) [Mass fraction] 98 % Dr. Abdulaziz Ackerman Work Phone: [facility] 06-13-2023 14:23-0500 Systolic blood pressure 140 mm[Hg] Dr. Abdulaziz Ackerman Work Phone: [facility] 03-07-2023 12:17-0400 Body height 165.[address] Abdulaziz Ackerman Work Phone: [facility] 03-07-2023 12:17-0400 Body mass index (BMI) [Ratio] 29.2 kg/m2 Dr. Abdulaziz Ackerman Work Phone: [facility] 03-07-2023 12:17-0400 Body temperature 98.1 [degF] Dr. Abdulaziz Ackerman Work Phone: [facility] 03-07-2023 12:17-0400 Body weight 79.[address] Abdulaziz Ackerman Work Phone: [facility] 03-07-2023 12:17-0400 Diastolic blood pressure 78 mm[Hg] Dr. Abdulaziz Ackerman Work Phone: [facility] 03-07-2023 12:17-0400 Heart rate 82 /min Dr. Abdulaziz Ackerman Work Phone: [facility] 03-07-2023 12:17-0400 Respiratory rate 18 /min Dr. Abdulaziz Ackerman Work Phone: [facility] 03-07-2023 12:17-0400 SaO2% (BldA) [Mass fraction] 93 % Dr. Abdulaziz Ackerman Work Phone: [facility] 03-07-2023 12:17-0400 Systolic blood pressure 156 mm[Hg] Dr. Abdulaziz Ackerman Work Phone: [facility] 12-29-2022 13:41-0400 Body mass index (BMI) [Ratio] 32.5 kg/m2 Dr. Abdulaziz Ackerman Work Phone: [facility] 12-29-2022 13:41-0400 Body temperature 97.7 [degF] Dr. Abdulaziz Ackerman Work Phone: [facility] 12-29-2022 13:41-0400 Body weight 80.[address] Abdulaziz Ackerman Work Phone: [facility] 12-29-2022 13:41-0400 Diastolic blood pressure 82 mm[Hg] Dr. Abdulaziz Ackerman Work Phone: [facility] 12-29-2022 13:41-0400 Heart rate 74 /min Dr. Abdulaziz Ackerman Work Phone: [facility] 12-29-2022 13:41-0400 Respiratory rate 18 /min Dr. Abdulaziz Ackerman Work Phone: [facility] 12-29-2022 13:41-0400 SaO2% (BldA) [Mass fraction] 98 % Dr. Abdulaziz Ackerman Work Phone: [facility] 12-29-2022 13:41-0400 Systolic blood pressure 126 mm[Hg] Dr. Abdulaziz Ackerman Work Phone: [facility] 12-14-2022 15:39-0400 Body weight 81.[address] Abdulaziz Ackerman Work Phone: [facility] 12-07-2022 15:37-0400 Body temperature 98.6 [degF] Dr. Abdulaziz Ackerman Work Phone: [facility] 12-07-2022 15:37-0400 Body weight 81.[address] Abdulaziz Ackerman Work Phone: [facility] 12-07-2022 15:37-0400 Diastolic blood pressure 68 mm[Hg] Dr. Abdulaziz Ackerman Work Phone: [facility] 12-07-2022 15:37-0400 Heart rate 88 /min Dr. Abdulaziz Ackerman Work Phone: [facility] 12-07-2022 15:37-0400 Respiratory rate 18 /min Dr. Abdulaziz Ackerman Work Phone: [facility] 12-07-2022 15:37-0400 SaO2% (BldA) [Mass fraction] 97 % Dr. Abdulaziz Ackerman Work Phone: [facility] 12-07-2022 15:37-0400 Systolic blood pressure 102 mm[Hg] Dr. Abdulaziz Ackerman Work Phone: [facility] 11-18-2022 13:34-0400 Body temperature 97 [degF] Dr. Abdulaziz Ackerman Work Phone: [facility] 11-18-2022 13:34-0400 Diastolic blood pressure 58 mm[Hg] Dr. Abdulaziz Ackerman Work Phone: [facility] 11-18-2022 13:34-0400 Heart rate 64 /min Dr. Abdulaziz Ackerman Work Phone: [facility] 11-18-2022 13:34-0400 Respiratory rate 19 /min Dr. Abdulaziz Ackerman Work Phone: [facility] 11-18-2022 13:34-0400 SaO2% (BldA) [Mass fraction] 95 % Dr. Abdulaziz Ackerman Work Phone: [facility] 11-18-2022 13:34-0400 Systolic blood pressure 125 mm[Hg] Dr. Abdulaziz Ackerman Work Phone: [facility] 11-17-2022 10:19-0400 Body height 162.[address] Abdulaziz Ackerman Work Phone: [facility] 11-17-2022 10:19-0400 Body mass index (BMI) [Ratio] 31 kg/m2 Dr. Abdulaziz Ackerman Work Phone: [facility] 11-17-2022 10:19-0400 Body weight 82.[address] Abdulaziz Ackerman Work Phone: [facility] 11-17-2022 09:01-0400 Body temperature 98 [degF] Dr. Abdulaziz Ackerman Work Phone: [facility] 11-17-2022 09:01-0400 Diastolic blood pressure 79 mm[Hg] Dr. Abdulaziz Ackerman Work Phone: [facility] 11-17-2022 09:01-0400 Heart rate 76 /min Dr. Abdulaziz Ackerman Work Phone: [facility] 11-17-2022 09:01-0400 Respiratory rate 20 /min Dr. Abdulaziz Ackerman Work Phone: [facility] 11-17-2022 09:01-0400 SaO2% (BldA) [Mass fraction] 96 % Dr. Abdulaziz Ackerman Work Phone: [facility] 11-17-2022 09:01-0400 Systolic blood pressure 149 mm[Hg] Dr. Abdulaziz Ackerman Work Phone: [facility] 11-17-2022 07:52-0400 Body mass index (BMI) [Ratio] 30.4 kg/m2 Dr. Abdulaziz Ackerman Work Phone: [facility] 11-17-2022 07:52-0400 Body weight 80.[address] Abdulaziz Ackerman Work Phone: [facility] 11-17-2022 07:31-0400 Body height 162.[address] Abdulaziz Ackerman Work Phone: [facility] 09-28-2022 13:13-0400 Body mass index (BMI) [Ratio] 31.4 kg/m2 Dr. Abdulaziz Ackerman Work Phone: [facility] 09-28-2022 13:13-0400 Body temperature 99.4 [degF] Dr. Abdulaziz Ackerman Work Phone: [facility] 09-28-2022 13:13-0400 Body weight [address] Abdulaziz Ackerman Work Phone: [facility] 09-28-2022 13:13-0400 Diastolic blood pressure 78 mm[Hg] Dr. Abdulaziz Ackerman Work Phone: [facility] 09-28-2022 13:13-0400 Heart rate 76 /min Dr. Abdulaziz Ackerman Work Phone: [facility] 09-28-2022 13:13-0400 Respiratory rate 16 /min Dr. Abdulaziz Ackerman Work Phone: [facility] 09-28-2022 13:13-0400 SaO2% (BldA) [Mass fraction] 95 % Dr. Abdulaziz Ackerman Work Phone: [facility] 09-28-2022 13:13-0400 Systolic blood pressure 126 mm[Hg] Dr. Abdulaziz Ackerman Work Phone: [facility] 07-29-2022 08:15-0500 Body height 162.[address] Abdulaziz Ackerman Work Phone: [facility] 07-29-2022 08:15-0500 Body mass index (BMI) [Ratio] 30.7 kg/m2 Dr. Abdulaziz Ackerman Work Phone: [facility] 07-29-2022 08:15-0500 Body temperature 97.6 [degF] Dr. Abdulaziz Ackerman Work Phone: [facility] 07-29-2022 08:15-0500 Body weight 81.[address] Abdulaziz Ackreman Work Phone: [facility] 07-29-2022 08:15-0500 Diastolic blood pressure 94 mm[Hg] Dr. Abdulaziz Ackerman Work Phone: [facility] 07-29-2022 08:15-0500 Heart rate 67 /min Dr. Abdulaziz Ackerman Work Phone: [facility] 07-29-2022 08:15-0500 Respiratory rate 18 /min Dr. Abdulaziz Ackerman Work Phone: [facility] 07-29-2022 08:15-0500 SaO2% (BldA) [Mass fraction] 99 % Dr. Abdulaziz Ackerman Work Phone: [facility] 07-29-2022 08:15-0500 Systolic blood pressure 142 mm[Hg] Dr. Abdulaziz Ackerman Work Phone: [facility] 05-26-2022 10:51-0500 Body height 162.[address] Abdulaziz Ackerman Work Phone: [facility] 05-26-2022 10:51-0500 Body mass index (BMI) [Ratio] 29.5 kg/m2 Dr. Abdulaziz Ackerman Work Phone: [facility] 05-26-2022 10:51-0500 Body temperature 98.6 [degF] Dr. Abdulaziz Ackerman Work Phone: [facility] 05-26-2022 10:51-0500 Body weight 78.[address] Abdulaziz Ackerman Work Phone: [facility] 05-26-2022 10:51-0500 Diastolic blood pressure 70 mm[Hg] Dr. Abdulaziz Ackerman Work Phone: [facility] 05-26-2022 10:51-0500 Heart rate 81 /min Dr. Abdulaziz Ackerman Work Phone: [facility] 05-26-2022 10:51-0500 Respiratory rate 16 /min Dr. Abdulaziz Ackerman Work Phone: [facility] 05-26-2022 10:51-0500 SaO2% (BldA) [Mass fraction] 97 % Dr. Abdulaziz Ackerman Work Phone: [facility] 05-26-2022 10:51-0500 Systolic blood pressure 116 mm[Hg] Dr. Abdulaziz Ackerman Work Phone: [facility] 03-21-2022 08:26-0400 Body height 162.[address] Abdulaziz Ackerman Work Phone: [facility] Work Phone: 03-21-2022 08:26-0400 Body mass index (BMI) [Ratio] 30 kg/m2 Dr. Abdulaziz Ackerman Work Phone: [facility] 03-21-2022 08:26-0400 Body temperature 98.5 [degF] Dr. Abdulaziz Ackerman Work Phone: [facility] 03-21-2022 08:26-0400 Body weight 79.[address] Abdulaziz Ackerman Work Phone: [facility] 03-21-2022 08:26-0400 Diastolic blood pressure 84 mm[Hg] Dr. Abdulaziz Ackerman Work Phone: [facility] 03-21-2022 08:26-0400 Heart rate 66 /min Dr. Abdulaziz Ackerman Work Phone: [facility] 03-21-2022 08:26-0400 Respiratory rate 14 /min Dr. Abdulaziz Ackerman Work Phone: [facility] 03-21-2022 08:26-0400 SaO2% (BldA) [Mass fraction] 97 % Dr. Abdulaziz Ackerman Work Phone: [facility] 03-21-2022 08:26-0400 Systolic blood pressure 138 mm[Hg] Dr. Abdulaziz Ackerman Work Phone: [facility] 02-17-2022 13:03-0400 Body mass index (BMI) [Ratio] 30.7 kg/m2 Dr. Abdulaziz Ackerman Work Phone: [facility] 02-17-2022 13:03-0400 Body temperature 97.9 [degF] Dr. Abdulaziz Ackerman Work Phone: [facility] 02-17-2022 13:03-0400 Body weight 81.[address] Abdulaziz Ackerman Work Phone: [facility] 02-17-2022 13:03-0400 Diastolic blood pressure 110 mm[Hg] Dr. Abdulaziz Ackerman Work Phone: [facility] 02-17-2022 13:03-0400 Heart rate 62 /min Dr. Abdulaziz Ackerman Work Phone: [facility] 02-17-2022 13:03-0400 Respiratory rate 16 /min Dr. Abdulaziz Ackerman Work Phone: [facility] 02-17-2022 13:03-0400 SaO2% (BldA) [Mass fraction] 96 % Dr. Abdulaziz Ackerman Work Phone: [facility] 02-17-2022 13:03-0400 Systolic blood pressure 160 mm[Hg] Dr. Abdulaziz Ackerman Work Phone: [facility] 02-08-2022 10:23-0400 Body mass index (BMI) [Ratio] 30.5 kg/m2 Dr. Abdulaziz Ackerman Work Phone: [facility] Work Phone: 02-08-2022 10:23-0400 Body temperature 97.9 [degF] Dr. Abdulaziz Ackerman Work Phone: [facility] Work Phone: 02-08-2022 10:23-0400 Body weight 80.[address] Abdulaziz Ackerman Work Phone: [facility] Work Phone: 02-08-2022 10:23-0400 Diastolic blood pressure 108 mm[Hg] Dr. Abdulaziz Ackerman Work Phone: [facility] Work Phone: 02-08-2022 10:23-0400 Heart rate 85 /min Dr. Abdulaziz Ackerman Work Phone: [facility] Work Phone: 02-08-2022 10:23-0400 Respiratory rate 16 /min Dr. Abdulaziz Ackerman Work Phone: [facility] Work Phone: 02-08-2022 10:23-0400 SaO2% (BldA) [Mass fraction] 95 % Dr. Abdulaziz Ackerman Work Phone: [facility] Work Phone: 02-08-2022 10:23-0400 Systolic blood pressure 170 mm[Hg] Dr. Abdulaziz Ackerman Work Phone: [facility] Work Phone: 01-04-2022 13:15-0400 Body weight 81.38 kg Homa Solis APRN.CNP Work Phone: [facility] 01-04-2022 13:15-0400 Diastolic blood pressure 76 mm[Hg] oHma Solis APRN.[employer]EF[employer] SPECIALIST Work Phone: [facility] 01-04-2022 13:15-0400 Systolic blood pressure 152 mm[Hg] Homa Solis APRN.H[employer] BENEFITS SPECIALIST Work Phone: [facility] 01-03-2022 08:02-0400 Body height 162.[address] Abdulaziz Ackerman Work Phone: [facility] Work Phone: 01-03-2022 08:02-0400 Body mass index (BMI) [Ratio] 30.7 kg/m2 Dr. Abdulaziz Ackerman Work Phone: [facility] Work Phone: 01-03-2022 08:02-0400 Body temperature 98.6 [degF] Dr. Abdulaziz Ackerman Work Phone: [facility] Work Phone: 01-03-2022 08:02-0400 Body weight 81.[address] Abdulaziz Ackerman Work Phone: [facility] Work Phone: 01-03-2022 08:02-0400 Diastolic blood pressure 110 mm[Hg] Dr. Abdulaziz Ackerman Work Phone: [facility] Work Phone: 01-03-2022 08:02-0400 Heart rate 76 /min Dr. Abdulaziz Ackerman Work Phone: [facility] Work Phone: 01-03-2022 08:02-0400 Respiratory rate 16 /min Dr. Abdulaziz Ackerman Work Phone: [facility] Work Phone: 01-03-2022 08:02-0400 SaO2% (BldA) [Mass fraction] 96 % Dr. Abdulaziz Ackerman Work Phone: [facility] Work Phone: 01-03-2022 08:02-0400 Systolic blood pressure 188 mm[Hg] Dr. Abdulaziz Ackerman Work Phone: [facility] Work Phone: 12-03-2021 10:45-0400 Body height 162.[address] Abdulaziz Ackerman Work Phone: [facility] Work Phone: 12-03-2021 10:45-0400 Body mass index (BMI) [Ratio] 33.7 kg/m2 Dr. Abdulaziz Ackerman Work Phone: [facility] Work Phone: 12-03-2021 10:45-0400 Body temperature 98.4 [degF] Dr. Abdulaziz Ackerman Work Phone: [facility] Work Phone: 12-03-2021 10:45-0400 Body weight 89.[address] Abdulaziz Ackerman Work Phone: [facility] Work Phone: 12-03-2021 10:45-0400 Diastolic blood pressure 88 mm[Hg] Dr. Abdulaziz Ackerman Work Phone: [facility] Work Phone: 12-03-2021 10:45-0400 Heart rate 71 /min Dr. Abdulaziz Ackerman Work Phone: [facility] Work Phone: 12-03-2021 10:45-0400 Respiratory rate 18 /min Dr. Abdulaziz Ackerman Work Phone: [facility] Work Phone: 12-03-2021 10:45-0400 SaO2% (BldA) [Mass fraction] 96 % Dr. Abdulaziz Ackerman Work Phone: [facility] Work Phone: 12-03-2021 10:45-0400 Systolic blood pressure 176 mm[Hg] Dr. Abdulaziz Ackerman Work Phone: [facility] Work Phone: 09-29-2021 15:02-0400 Body mass index (BMI) [Ratio] 31 kg/m2 Dr. Abdulaziz Ackerman Work Phone: [facility] Work Phone: 09-29-2021 15:02-0400 Body temperature 98.7 [degF] Dr. Abdulaziz Ackerman Work Phone: [facility] Work Phone: 09-29-2021 15:02-0400 Body weight 82.[address] Abdulaziz Ackerman Work Phone: [facility] Work Phone: 09-29-2021 15:02-0400 Diastolic blood pressure 78 mm[Hg] Dr. Abdulaziz Ackerman Work Phone: [facility] Work Phone: 09-29-2021 15:02-0400 Heart rate 70 /min Dr. Abdulaziz Ackerman Work Phone: [facility] Work Phone: 09-29-2021 15:02-0400 Respiratory rate 14 /min Dr. Abdulaziz Ackerman Work Phone: [facility] Work Phone: 09-29-2021 15:02-0400 SaO2% (BldA) [Mass fraction] 97 % Dr. Abdulaziz Ackermna Work Phone: [facility] Work Phone: 09-29-2021 15:02-0400 Systolic blood pressure 134 mm[Hg] Dr. Abdulaziz Ackerman Work Phone: [facility] Work Phone: 09-29-2021 15:02-0400 Body height 162.[address] Abdulaziz Ackerman Work Phone: [facility] Work Phone: 09-29-2021 15:02-0400 Body mass index (BMI) [Ratio] 31 kg/m2 Dr. Abdulaziz Ackerman Work Phone: [facility] Work Phone: 09-29-2021 15:02-0400 Body temperature 98.7 [degF] Dr. Abdulaziz Ackerman Work Phone: [facility] Work Phone: 09-29-2021 15:02-0400 Body weight 82.[address] Abdulaziz Ackerman Work Phone: [facility] Work Phone: 09-29-2021 15:02-0400 Diastolic blood pressure 78 mm[Hg] Dr. Abdulaziz Ackerman Work Phone: [facility] Work Phone: 09-29-2021 15:02-0400 Heart rate 70 /min Dr. Abdulaziz Ackerman Work Phone: [facility] Work Phone: 09-29-2021 15:02-0400 Respiratory rate 14 /min Dr. Abdulaziz Ackerman Work Phone: [facility] Work Phone: 09-29-2021 15:02-0400 SaO2% (BldA) [Mass fraction] 97 % Dr. Abdulaziz Ackerman Work Phone: [facility] Work Phone: 09-29-2021 15:02-0400 Systolic blood pressure 134 mm[Hg] Dr. Abdulaziz Ackerman Work Phone: [facility] Work Phone: 07-30-2021 07:03-0500 Body height 162.[address] Abdulaziz Ackerman Work Phone: [facility] Work Phone: 07-30-2021 07:03-0500 Body mass index (BMI) [Ratio] 31 kg/m2 Dr. Abdulaziz Ackerman Work Phone: [facility] Work Phone: 07-30-2021 07:03-0500 Body temperature 98.2 [degF] Dr. Abdulaziz Ackerman Work Phone: [facility] Work Phone: 07-30-2021 07:03-0500 Body weight 82.[address] Abdulaziz Ackerman Work Phone: [facility] Work Phone: 07-30-2021 07:03-0500 Diastolic blood pressure 72 mm[Hg] Dr. Abudlaziz Ackerman Work Phone: [facility] Work Phone: 07-30-2021 07:03-0500 Heart rate 66 /min Dr. Abdulaziz Ackerman Work Phone: [facility] Work Phone: 07-30-2021 07:03-0500 Respiratory rate 14 /min Dr. Abdulaziz Ackerman Work Phone: [facility] Work Phone: 07-30-2021 07:03-0500 SaO2% (BldA) [Mass fraction] 99 % Dr. Abdulaziz Ackerman Work Phone: [facility] Work Phone: 07-30-2021 07:03-0500 Systolic blood pressure 126 mm[Hg] Dr. Abdulaziz Ackerman Work Phone: [facility] Work Phone: 05-04-2021 07:22-0500 Body mass index (BMI) [Ratio] 31.2 kg/m2 Dr. Abdulaziz Ackerman Work Phone: [facility] Work Phone: 05-04-2021 07:22-0500 Body temperature 97.2 [degF] Dr. Abdulaziz Ackerman Work Phone: [facility] Work Phone: 05-04-2021 07:22-0500 Body weight 82.[address] Abdulaziz Ackerman Work Phone: [facility] Work Phone: 05-04-2021 07:22-0500 Diastolic blood pressure 78 mm[Hg] Dr. Abdulaziz Ackerman Work Phone: [facility] Work Phone: 05-04-2021 07:22-0500 Heart rate 66 /min Dr. Abdulaziz Ackerman Work Phone: [facility] Work Phone: 05-04-2021 07:22-0500 Respiratory rate 16 /min Dr. Abdulaziz Ackerman Work Phone: [facility] Work Phone: 05-04-2021 07:22-0500 SaO2% (BldA) [Mass fraction] 99 % Dr. Abdulaziz Ackerman Work Phone: [facility] Work Phone: 05-04-2021 07:22-0500 Systolic blood pressure 140 mm[Hg] Dr. Abdulaziz Ackerman Work Phone: [facility] Work Phone: 04-28-2021 09:39-0500 Body weight 83.[address] Abdulaziz Ackerman Work Phone: [facility] Work Phone: 04-28-2021 09:39-0500 Diastolic blood pressure 75 mm[Hg] Dr. Abdulaziz Ackerman Work Phone: [facility] Work Phone: 04-28-2021 09:39-0500 Heart rate 76 /min Dr. Abdulaziz Ackerman Work Phone: [facility] Work Phone: 04-28-2021 09:39-0500 Respiratory rate 18 /min Dr. Abdulaziz Ackerman Work Phone: [facility] Work Phone: 04-28-2021 09:39-0500 SaO2% (BldA) [Mass fraction] 96 % Dr. Abdulaziz Ackerman Work Phone: [facility] Work Phone: 04-28-2021 09:39-0500 Systolic blood pressure 137 mm[Hg] Dr. Abdulaziz Ackerman Work Phone: [facility] Work Phone: 12-02-2020 14:08-0400 Body mass index (BMI) [Ratio] 30.4 kg/m2 Dr. Abdulaziz Ackerman Work Phone: [facility] Work Phone: Encounters Encounter Date Encounter Type Care Provider Facility Start: 04-08-2025 ambulatory Sravanthi Marroquin Facility: [facility] Start: 03-17-2025 ambulatory Sammy Rausch Fac ility:[facility] Start: 03-17-2025 End: 03-23-2025 Evaluation and management of inpatient Sammy Rausch Facility:[facility] Start: 03-08-2025 End: 03-08-2025 ambulatory Earnestine Meka Facility:[facility] Start: 03-08-2025 End: 03-08-2025 Dr. Jamal Munoz MD -[facility] Work Phone: Start: 02-21-2025 End: 02-21-2025 Sravanthi Marroquin [employer]-C -Laboratory Work Phone: Start: 02-21-2025 End: 02-21-2025 ambulatory [facility] Facility:[facility] Start: 02-14-2025 End: 02-14-2025 Patient encounter procedure Sravanthi Marroquin [employer] DEVELOPER-C -[facility] Work Phone: Start: 02-14-2025 End: 02-14-2025 Sravanthi Marroquin [employer] DEVELOPER-C -[facility] Work Phone: Start: 02-14-2025 End: 02-14-[address] Abdulaziz Ackerman MD Work Phone: -[facility] Start: 02-12-2025 End: 02-12-[address] Abdulaziz Ackerman MD Work Phone: -Laboratory Start: 02-12-2025 End: 02-12-2025 Patient encounter procedure Sravanthi Marroquin [employer]ELOPER-C -Laboratory Work Phone: Start: 02-12-2025 End: 02-12-2025 Sravanthi Marroquin [employer] DEVELOPER-C -Laboratory Work Phone: Start: 02-12-2025 End: 02-12-2025 ambulatory [facility] Facility:[facility] Start: 02-08-2025 End: 02-08-[address] Abdulaziz Ackerman MD Work Phone: -[facility] Start: 02-08-2025 End: 02-08-[address] Jamal Munoz MD -[facility] Work Phone: Start: 02-08-2025 End: 02-08-2025 Dr. Jamal Munoz MD -[facility] Work Phone: Start: 01-24-2025 End: 01-24-[address] Abdulaziz Ackerman MD Work Phone: -[facility] Start: 01-24-2025 End: 01-24-[address] Jamal Munoz MD -[facility] Work Phone: Start: 01-24-2025 End: 01-24-2025 Dr. Jamal Munoz MD -[facility] Work Phone: Start: 01-23-2025 End: 01-23-[address] Abdulaziz Ackerman MD Work Phone: -Laboratory Start: 01-23-2025 End: 01-23-2025 Patient encounter procedure Sravanthi Marroquin [employer]ELOPER-C -Laboratory Work Phone: Start: 01-23-2025 End: 01-23-[address] Abdulaziz Ackerman MD Work Phone: -[facility] Start: 01-23-2025 End: 01-23-2025 Patient encounter procedure Sravanthi Marroquin NP-C -[facility] Work Phone: Start: 01-23-2025 End: 01-23-2025 Dr. Jamal Munoz MD -[facility] Work Phone: Start: 01-22-2025 End: 01-23-2025 ambulatory Abdulaziz Ackerman [facility] Start: 01-13-2025 End: 01-13-[address] Abdulaziz Ackerman MD -[facility] Work Phone: Start: 01-13-2025 End: 01-13-2025 Dr. Abdulaziz Ackerman MD -[facility] Work Phone: Start: 01-13-2025 End: 01-13-[address] Abdulaziz Ackerman MD Work Phone: -[facility] Start: 12-23-2024 End: 12-23-[address] Abdulaziz Ackerman MD Work Phone: -[facility] Start: 12-23-2024 End: 12-23-2024 [facility] Start: 12-23-2024 End: 12-23-2024 Dr. Jamal Munoz MD [facility] Work Phone: Start: 12-18-2024 End: 12-18-[address] Abdulaziz Ackerman MD Work Phone: [facility] Start: 12-18-2024 End: 12-18-[address] Jamal Munoz MD [facility] Work Phone: Start: 12-18-2024 End: 12-18-2024 Dr. Jamal Munoz [facility] Work Phone: Start: 12-16-2024 Non-patient / Non-visit Dr. Diaz [facility] Start: 12-16-2024 Dr. Jamal Munoz MD [facility] Start: 12-16-[address] Abdulaziz Ackerman MD Work Phone: [facility] Start: 12-14-2024 Non-patient / Non-visit Dr. Tatum Escobedo MD [facility] Work Phone: Start: 12-14-2024 Dr. Tatum Escobedo MD [facility] Work Phone: Start: 12-14-2024 Non-patient / Non-visit Dr. Diaz [facility] Start: 12-14-2024 Dr. Jamal Munoz [facility] Start: 12-14-2024 End: 12-14-[address] Abdulaziz Ackerman MD Work Phone: [facility] Start: 12-14-2024 End: 12-14-[address] Jamal Munoz MD [facility] Work Phone: Start: 12-14-2024 End: 12-14-2024 Dr. Jamal Munoz MD -[facility] Work Phone: Start: 12-13-2024 Non-patient / Non-visit Dr. Diaz [facility] Start: 12-13-2024 Dr. Jamal Munoz [facility] Start: 12-13-2024 Non-patient / Non-visit Dr. Tatum Escobedo MD [facility] Work Phone: Start: 12-13-2024 Dr. Samantha Gary MD [facility] Work Phone: Start: 12-12-2024 Non-patient / Non-visit Dr. Tatum Escobedo MD [facility] Work Phone: Start: 12-12-2024 Dr. Samantha Gary MD [facility] Work Phone: Start: 12-11-2024 Non-patient / Non-visit Dr. Tatum Escobedo MD [facility] Work Phone: Start: 12-11-2024 Dr. Tatum Escobedo MD [facility] Work Phone: Start: 12-10-2024 End: 12-14-2024 Evaluation and management of inpatient Dr. Abdulaziz Ackerman MD Work Phone: -Progressive Care Unit Start: 12-10-2024 ambulatory Tatum Escobedo Facility :[facility] Start: 12-10-2024 Non-patient / Non-visit Dr. Samantha Gary MD [facility] Work Phone: Start: 12-10-2024 End: 12-14-2024 Dr. Samantha Gary MD -Progressive Care Unit Work Phone: Start: 11-29-2024 ambulatory Abdulaziz Quiñonez ty:[facility] Start: 11-25-2024 End: 11-25-2024 Patient encounter procedure Paula MEZA -[facility] Work Phone: Start: 11-25-2024 End: 11-25-2024 Paula MEZA -[facility] Work Phone: Start: 11-25-2024 End: 11-25-[address] Abdulaziz Ackerman MD Work Phone: -[facility] Start: 10-30-2024 ambulatory Abdulaziz Ackerman Facili ty:[facility] Start: 10-25-2024 End: 10-25-2024 Patient encounter procedure Eladio DIXON -[facility] Work Phone: Start: 10-25-2024 End: 10-25-2024 Eladio DIXON -[facility] Work Phone: Start: 10-25-2024 End: 10-25-[address] Abdulaziz Ackerman MD Work Phone: [facility] Work Phone: Start: 10-17-2024 End: 10-19-[address] Abdulaziz Ackerman MD Work Phone: [facility] Work Phone: Start: 10-17-2024 End: 10-19-[address] Abdulaziz Ackerman MD -Laboratory [facility] Start: 10-17-2024 End: 10-19-2024 Dr. Abdulaziz Ackerman MD -[facility] Start: 09-27-2024 End: 09-27-[address] Abdulaziz Ackerman MD -[facility] Work Phone: Start: 09-27-2024 End: 09-27-2024 Dr. Abdulaziz Ackerman MD -[facility] Work Phone: Start: 09-27-2024 End: 09-27-2024 ambulatory Abdulaziz Ackerman Facility:[facility] Start: 09-19-2024 ambulatory Abdulaziz Ackerman Facili ty:[facility] Start: 09-12-2024 ambulatory Abdulaziz Munozi ty:[facility] Start: 09-06-2024 End: 09-06-[address] Abdulaziz Ackerman MD -[facility] Work Phone: Start: 09-06-2024 End: 09-06-2024 Dr. Abdulaziz Ackerman MD -[facility] Work Phone: Start: 09-06-2024 End: 09-06-2024 ambulatory [facility] [place] Start: 09-02-2024 End: 09-18-[address] Abdulaziz Ackerman MD -[facility] Start: 09-02-2024 End: 09-18-2024 Dr. Abdulaziz Ackerman MD -[facility] Start: 09-02-2024 End: 09-18-2024 ambulatory [facility] Facility:[facility] Start: 08-29-2024 ambulatory [facility] Facili ty:[facility] Start: 08-25-2024 Non-patient / Non-visit Dr. Samantha Gary MD -[facility] Work Phone: Start: 08-25-2024 Dr. Samantha Gary MD [facility] Work Phone: Start: 08-24-2024 Non-patient / Non-visit Dr. Sonia Ramesh MD -[facility] Start: 08-24-2024 Dr. Felicia Ramesh MD [facility] Start: 08-24-2024 Non-patient / Non-visit Dr. Samantha Gary MD [facility] Work Phone: Start: 08-24-2024 Dr. Iglesia Benson MD [facility] Work Phone: Start: 08-23-2024 Non-patient / Non-visit Dr. Iglesia Benson MD [facility] Work Phone: Start: 08-23-2024 Dr. Iglesia Benson MD [facility] Work Phone: Start: 08-23-2024 Non-patient / Non-visit Dr. Emily WHITTINGTON [facility] Start: 08-23-2024 Dr. Jamal Munoz MD [facility] Start: 08-22-2024 Non-patient / Non-visit Dr. Iglesia Benson MD -[facility] Work Phone: Start: 08-22-2024 Dr. Iglesia Benson MD -[facility] Work Phone: Start: 08-22-2024 ambulatory Efewongbe Oleghe Facili ty:[facility] Start: 08-21-2024 Non-patient / Non-visit Dr. Emily WHITTINGTON [facility] Start: 08-21-2024 Dr. Jamal Munoz MD [facility] Start: 08-21-2024 ambulatory Efewongbe Oleghe Facili ty:[facility] Start: 08-21-2024 Non-patient / Non-visit Dr. Iglesia Benson MD -[facility] Work Phone: Start: 08-21-2024 ambulatory Efewongbe Oleghe Facili ty:[facility] Start: 08-21-2024 End: 08-25-2024 Evaluation and management of inpatient Dr. Iglesia Benson MD -Intensive Care Unit Work Phone: Start: 08-21-2024 End: 08-25-2024 Dr. Iglesia Benson MD -Progressive Care U nit Work Phone: Start: 08-15-2024 End: 08-19-[address] Abdulaziz Ackerman MD Work Phone: [facility] Work Phone: Start: 08-15-2024 End: 08-19-[address] Abdulaziz Ackerman MD -Laboratory, [facility] Start: 08-15-2024 End: 08-19-2024 Dr. Abdulaziz Ackerman MD -[facility] Start: 07-31-2024 End: 07-31-2024 Patient encounter procedure Eladio DIXON -[facility] Work Phone: Start: 07-31-2024 End: 07-31-2024 ambulatory rosalina Sharmanoah [place] Start: 07-24-2024 End: 07-24-[address] Abdulaziz Ackerman MD -[facility] Work Phone: Start: 07-24-2024 End: 07-24-2024 [facility] Start: 04-30-2024 End: 05-21-[address] Abdulaziz Ackerman MD -Laboratory, [facility] Start: 04-30-2024 End: 05-21-2024 ambulatory [facility] Facility:[facility] Start: 04-10-2024 End: 04-20-2024 ambulatory [facility] Facility:[facility] Start: 09-18-2023 End: 09-19-[address] Abdulaziz Ackerman Work Phone: [facility] Work Phone: Start: 09-18-2023 End: 09-19-[address] Abdulaziz Ackerman Work Phone: [facility], [facility] Start: 08-08-2023 End: 08-08-[address] Abdulaziz Ackerman Work Phone: [facility] Work Phone: Start: 08-08-2023 End: 08-08-[address] Abdulaziz Ackerman Work Phone: [facility], [facility] Start: 07-28-2023 End: 08-20-[address] Abdulaziz Ackerman Work Phone: [facility] Work Phone: Start: 07-28-2023 End: 08-20-[address] Abdulaziz Ackerman Work Phone: [facility], [facility] Start: 07-28-[address] José Luis Ackerman Work Phone: [facility], [facility] Start: 07-28-2023 End: 07-28-[address] Abdulaziz Ackerman Work Phone: [facility] Work Phone: Start: 06-26-2023 End: 07-20-[address] Abdulaziz Ackerman Work Phone: [facility] Work Phone: Start: 06-26-2023 End: 07-20-[address] Abdulaziz Ackerman Work Phone: [facility], [facility] Start: 06-21-2023 End: 06-21-[address] Abdulaziz Ackerman Work Phone: [facility] Work Phone: Start: 06-21-2023 End: 06-21-[address] Abdulaziz Ackerman Work Phone: [facility] Start: 06-19-2023 End: 06-19-[address] Abdulaziz Ackerman Work Phone: [facility] Work Phone: Start: 06-19-2023 End: 06-19-[address] Abdulaziz Ackerman Work Phone: [facility] Start: 06-13-2023 End: 06-13-[address] Abdulaziz Ackerman Work Phone: [facility] Work Phone: Start: 05-31-2023 End: 05-31-[address] Abdulaziz Ackerman Work Phone: [facility] Work Phone: Start: 05-31-2023 End: 05-31-[address] Abdulaziz Ackerman Work Phone: [facility]-Physical Therapy Work Phone: Start: 03-07-2023 End: 03-07-[address] Abdulaziz Ackerman Work Phone: [facility] Work Phone: Start: 03-07-2023 End: 03-07-[address] Abdulaziz Ackerman Work Phone: [facility] Work Phone: Start: 12-29-2022 End: 12-29-[address] Abdulaziz Ackerman Work Phone: [facility] Work Phone: Start: 12-13-[address] José Luis Ackerman Work Phone: [facility]-Occupational Therapy Work Phone: Start: 12-07-2022 End: 12-07-[address] Abdulaziz Ackerman Work Phone: [facility] Work Phone: Start: 11-18-2022 Non-patient / Non-visit Dr. Renita Ackerman Work Phone: [facility] Start: 11-18-2022 Non-patient / Non-visit Dr. Renita Ackerman Work Phone: [facility] Work Phone: Start: 11-18-2022 Non-patient / Non-visit Dr. Renita Ackerman Work Phone: [facility] Start: 11-17-2022 Non-patient / Non-visit Dr. Renita Ackerman Work Phone: [facility] Start: 11-17-2022 Non-patient / Non-visit Dr. Renita Ackerman Work Phone: [facility] Work Phone: Start: 11-17-2022 End: 11-18-2022 Evaluation and management of inpatient Dr. Abdulaziz Ackerman Work Phone: [facility]-Progressive Care Unit Work Phone: Start: 11-17-2022 End: 11-18-[address] Abdulaziz Ackerman Work Phone: [facility] Work Phone: Start: 09-28-2022 End: 09-28-[address] Abdulaziz Ackerman Work Phone: [facility] Work Phone: Start: 07-29-2022 End: 07-29-[address] Abdulaziz Ackerman Work Phone: [facility] Work Phone: Start: 07-29-2022 End: 07-29-[address] Abdulaziz Ackerman Work Phone: [facility] Start: 05-26-2022 End: 05-26-[address] Abdulaziz Ackerman Work Phone: [facility] Work Phone: Start: 05-26-2022 End: 05-26-[address] Abdulaziz Ackerman Work Phone: [facility] Start: 03-21-2022 End: 03-21-[address] Abdulaziz Ackerman Work Phone: [facility] Work Phone: Start: 03-21-2022 End: 03-21-[address] Abdulaziz Ackerman Work Phone: [facility] Start: 02-17-2022 End: 02-17-[address] Abdulaziz Ackerman Work Phone: [facility] Start: 02-08-2022 End: 02-08-[address] Abdulaziz Ackerman Work Phone: [facility] Start: 01-04-2022 End: 01-04-2022 Patient encounter procedure Homa Solis APRN.CNP Work Phone: OB/Gynecology Comment on above: Acute vulvitis (Prim latrice Dx); Vaginal burning; Vagina itching Start: 01-03-2022 End: 01-03-[address] Abdulaziz Ackerman Work Phone: [facility] Start: 12-03-2021 End: 12-03-2021 Emergency department patient visit Dr. Abdulaziz Ackerman Work Phone: [facility]-Emergency Department Start: 10-07-2021 End: 10-07-2021 Subsequent hospital visit by physician [facility] Work Phone: Molecular Imaging Comment on above: Malignant melanoma o f other part of trunk [C43.59] Start: 10-04-2021 End: 10-04-[address] Abdulaziz Ackerman Work Phone: [facility]-Pulmonary Services/Neurology Start: 10-04-2021 Non-patient / Non-visit Dr. Renita Ackerman Work Phone: [facility] Start: 09-29-[address] Earnestine Ackerman Work Phone: [facility] Start: 09-29-2021 End: 09-29-2021 Encounter for other preprocedural examination Dr. Abdulaziz Ackerman Work Phone: [facility] Start: 09-29-2021 End: 09-29-[address] Abdulaziz Ackerman Work Phone: [facility] Start: 08-13-2021 End: 08-13-[address] Abdulaziz Ackerman Work Phone: [facility] Start: 07-30-2021 End: 07-30-[address] Abdulaziz Ackerman Work Phone: [facility] Start: 05-04-2021 End: 05-04-[address] Abdulaziz Ackerman Work Phone: [facility] Start: 04-28-2021 End: 04-28-[address] Abdulaziz Ackerman Work Phone: [facility] Start: 12-14-2016 End: 12-15-2016 [facility] Date Procedure Procedure Detail Performing Clinician Start: 03-23-[address] Abdulaziz Ackerman MD Work Phone: Start: 03-23-2025 Mean corpuscular hem oglobin concentration determination Dr. Abdulaziz Ackerman MD Work Phone: Start: 03-23-[address] Renita Ackerman MD Work Phone: Start: 03-23-2025 Nucleated red blood cell count procedure Dr. Abdulaziz Ackerman MD Work Phone: Start: 03-23-2025 Platelet mean volume determination Dr. Abdulaziz Ackerman MD Work Phone: Start: 03-21-2025 Calculation of international normalized ratio Dr. Abdulaziz Ackerman MD Work Phone: Start: 03-21-2025 Serum inorganic phos phate measurement Dr. Abdulaziz Ackerman MD Work Phone: Start: 03-20-[address] Luzmaria Ackerman MD Work Phone: Start: 03-20-2025 Red blood cell morphology Dr. Abdulaziz Ackerman MD Work Phone: Start: 02-21-2025 Calculation of international normalized ratio Dr. Abdulaziz Ackerman MD Work Phone: Start: 02-21-2025 Mean corpuscular hem oglobin concentration determination Dr. Abdulaziz Ackerman MD Work Phone: Start: 02-21-[address] Renita Ackerman MD Work Phone: Start: 02-21-2025 Nucleated red blood cell count procedure Dr. Abdulaziz Ackerman MD Work Phone: Start: 02-21-2025 Platelet mean volume determination Dr. Abdulaziz Ackerman MD Work Phone: Start: 02-12-2025 Calculation of international normalized ratio Dr. Abdulaziz Ackerman MD Work Phone: Start: 01-23-2025 Mean corpuscular hem oglobin concentration determination Dr. Abdulaziz Ackerman MD Work Phone: Start: 01-23-[address] Renita Ackerman MD Work Phone: Start: 01-23-2025 Nucleated red blood cell count procedure Dr. Abdulaziz Ackerman MD Work Phone: Start: 01-23-2025 Platelet mean volume determination Dr. Abdulaziz Ackerman MD Work Phone: Start: 12-14-2024 X-ray of chest, PA a nd lateral views Dr. Abdulaziz Ackerman MD Work Phone: Start: 12-14-2024 Blood count smear rscp w/mnl difrntl wbc count Dr. Abdulaziz Ackerman MD Work Phone: Start: 12-14-[address] Abdulaziz Ackerman MD Work Phone: Start: 12-14-2024 Mean corpuscular hem oglobin concentration determination Dr. Abdulaziz Ackerman MD Work Phone: Start: 12-14-[address] Renita Ackerman MD Work Phone: Start: 12-14-2024 Nucleated red blood cell count procedure Dr. Abdulaziz Ackerman MD Work Phone: Start: 12-14-2024 Platelet mean volume determination Dr. Abdulaziz Ackerman MD Work Phone: Start: 12-13-2024 X-ray of chest, PA a nd lateral views Dr. Abdulaziz Ackerman MD Work Phone: Start: 12-13-2024 Urine microscopy: red cells Dr. Abdulaziz Ackerman MD Work Phone: Start: 12-13-2024 Urnls dip stick/tabl et reagent auto microscopy Dr. Abdulaziz Ackerman MD Work Phone: Start: 12-13-2024 Calculation of international normalized ratio Dr. Abdulaziz Ackerman MD Work Phone: Start: 12-12-2024 X-ray of knee, four or more views Dr. Abdulaziz Ackerman MD Work Phone: Start: 12-11-[address] Abdulaziz Ackerman MD Work Phone: Start: 12-11-2024 Blood disorder - ini tial assessment Dr. Abdulaziz Ackerman MD Work Phone: Start: 12-11-[address] Luzmaria Ackerman MD Work Phone: Start: 12-11-2024 Total cholesterol:HD L ratio measurement Dr. Abdulaziz Ackerman MD Work Phone: Start: 12-11-[address] Abdulaziz Ackerman MD Work Phone: Start: 12-10-2024 Plain chest X-ray Dr. Noah Ackerman MD Work Phone: Start: 12-10-2024 Blood count smear mc rscp w/mnl difrntl wbc count Dr. Abdulaziz Ackerman MD Work Phone: Start: 12-10-2024 Calculation of international normalized ratio Dr. Abdulaziz Ackerman MD Work Phone: Start: 12-10-[address] Abdulaziz Ackerman MD Work Phone: Start: 12-10-2024 Mean corpuscular hem oglobin concentration determination Dr. Abdulaziz Ackerman MD Work Phone: Start: 12-10-2024 Nucleated red blood cell count procedure Dr. Abdulaziz Ackerman MD Work Phone: Start: 12-10-2024 Platelet mean volume determination Dr. Abdulaziz Ackerman MD Work Phone: Start: 10-17-2024 Calculation of international normalized ratio Dr. Abdulaziz Ackerman MD Work Phone: Start: 09-27-2024 Blood count smear mc rscp w/mnl difrntl wbc count Dr. Abdulaziz Ackerman MD Work Phone: Start: 09-27-2024 Mean corpuscular hem oglobin concentration determination Dr. Abdulaziz Ackerman MD Work Phone: Start: 09-27-2024 Nucleated red blood cell count procedure Dr. Abdulaziz Ackerman MD Work Phone: Start: 09-27-2024 Platelet mean volume determination Dr. Abdulaziz Ackerman MD Work Phone: Start: 09-02-2024 Calculation of international normalized ratio Dr. Abdulaziz Ackerman MD Work Phone: Start: 08-25-2024 Blood count smear mc rscp w/mnl difrntl wbc count Dr. Abdulaziz Ackeramn MD Work Phone: Start: 08-25-2024 Calculation of international normalized ratio Dr. Abdulaziz Ackerman MD Work Phone: Start: 08-25-[address] Abdulaziz Ackerman MD Work Phone: Start: 08-25-2024 Mean corpuscular hem oglobin concentration determination Dr. Abdulaziz Ackerman MD Work Phone: Start: 08-25-2024 Nucleated red blood cell count procedure Dr. Abdulaziz Ackerman MD Work Phone: Start: 08-25-2024 Platelet mean volume determination Dr. Abdulaziz Ackerman MD Work Phone: Start: 08-24-2024 Serum inorganic phos phate measurement Dr. Abdulaziz Ackerman MD Work Phone: Start: 08-22-[address] Abdulaziz Ackerman MD Work Phone: Start: 08-22-2024 Total cholesterol:HD L ratio measurement Dr. Abdulaziz Ackerman MD Work Phone: Start: 08-21-2024 X-ray of chest, PA a nd lateral views Dr. Abdulaziz Ackerman MD Work Phone: Start: 08-15-2024 Calculation of international normalized ratio Dr. Abdulaziz Ackerman MD Work Phone: Start: 07-24-2024 Blood count smear mc rscp w/mnl difrntl wbc count Dr. Abdulaziz Ackerman MD Work Phone: Start: 07-24-2024 Mean corpuscular hem oglobin concentration determination Dr. Abdulaziz Ackerman MD Work Phone: Start: 07-24-2024 Nucleated red blood cell count procedure Dr. Abdulaziz Ackerman MD Work Phone: Start: 07-24-2024 Platelet mean volume determination Dr. Abdulaziz Ackerman MD Work Phone: Start: [...] Treatment Date Care Activity Detail Author Start: 03-23-2025 -[facility] Work Phone: Start: 03-23-2025 Patient discharge [facility] Start: 03-23-2025 Radiologic exam chest 2 views [facility] Start: 03-22-2025 -[facility] Start: 03-21-2025 -[facility] Work Phone: Start: 03-20-2025 -[facility] Start: 03-20-2025 Colonoscopy [facility] Start: 03-20-2025 -[facility] Work Phone: Start: 03-20-2025 Care planning and problem solving actions [facility] Start: 03-19-2025 Measurement of occult blood in stool specimen using immunoassay [facility] Start: 03-19-2025 Preparation of bowel for procedure [facility] Start: 03-19-2025 [facility] Start: 03-19-2025 -[facility] Work Phone: Start: 03-18-2025 Esophagogastroduodenoscopy [facility] Start: 03-18-2025 -[facility] Start: 03-18-2025 -[facility] Work Phone: Start: 03-17-2025 Following clinical pathway protocol [facility] Start: 03-17-2025 Transfusion of blood product [facility] Start: 03-17-2025 Application of intermittent pneumatic compression device [facility] Start: 03-17-2025 Assessment of risk of venous thromboembolism [facility] Start: 03-17-2025 Elevation of head of bed [facility] Start: 03-17-2025 Insertion of catheter into peripheral vein [facility] Start: 03-17-2025 Measuring intake and output [facility] Start: 03-17-2025 Oxygen therapy [facility] Start: 03-17-2025 Providing care according to standard [facility] Start: 03-17-2025 Referral for physical therapy [facility] Start: 03-17-2025 Referral to gastroenterology service [facility] Start: 03-17-2025 Referral to occupational therapist [facility] Start: 03-17-2025 Referral to service [facility] Start: 03-17-2025 Vital signs measurements [facility] Start: 03-17-2025 [facility] Start: 03-17-2025 Admission procedure [facility] Start: 03-17-2025 End: 03-23-2025 -[facility] Work Phone: Start: 03-17-2025 End: 03-17-2025 Administration of blood product [facility] Start: 01-23-2025 Polysomnography [facility] Start: 12-14-2024 Patient discharge [facility] Start: 12-13-2024 Elevation of head of bed [facility] Start: 12-13-[address] [facility] Start: 12-13-2024 Taking patient vital signs [facility] Start: 12-13-2024 Wound care [facility] Start: 12-13-2024 [facility] Start: 12-13-2024 Catheterization of vein [facility] Start: 12-13-[address] [facility] Start: 12-13-2024 [facility] Start: 12-13-2024 Referral to hotel houseman [facility] Start: 12-12-2024 [facility] Start: 12-11-2024 Referral for physical therapy [facility] Start: 12-11-2024 Referral to occupational therapist [facility] Start: 12-11-2024 Referral to service [facility] Start: 12-11-2024 Prothrombin time [facility] Start: 12-11-2024 Thyroid stimulating hormone measurement [facility] Start: 12-11-2024 Following clinical pathway protocol [facility] Start: 12-11-2024 Application of elastic bandage [facility] Start: 12-11-2024 Assessment of risk of venous thromboembolism [facility] Start: 12-11-2024 Care regimes management [facility] Start: 12-11-2024 Elevation of affected extremity [facility] Start: 12-11-2024 Incentive spirometry [facility] Start: 12-11-2024 Insertion of catheter into peripheral vein [facility] Start: 12-11-2024 Introduction of urinary catheter [facility] Start: 12-11-2024 Measuring intake and output [facility] Start: 12-11-[address] [facility] Start: 12-11-2024 Oxygen therapy [facility] Start: 12-11-2024 Patient education [facility] Start: 12-11-2024 End: 12-11-2024 Patient referral to dietitian [facility] Start: 12-11-2024 Providing care according to standard [facility] Start: 12-11-2024 Provision of activity privileges [facility] Start: 12-11-2024 Referral to service [facility] Start: 12-11-2024 End: 12-11-2024 [facility] Start: 12-10-2024 Verification routine [facility] Start: 12-10-2024 Admission procedure [facility] Start: 12-10-2024 [facility] Start: 10-25-2024 Patient referral [facility] Work Phone: Start: 08-26-2024 Prothrombin time [facility] Start: 08-25-2024 Patient discharge [facility] Start: 08-23-2024 [facility] Start: 08-22-2024 Patient referral [facility] Work Phone: Start: 08-22-2024 [facility] Start: 08-21-2024 Consultation for treatment [facility] Start: 08-21-2024 Following clinical pathway protocol [facility] Start: 08-21-2024 Ambulation without limitation [facility] Start: 08-21-2024 Application of elastic bandage [facility] Start: 08-21-2024 Assessment of risk of venous thromboembolism [facility] Start: 08-21-2024 Elevation of affected extremity [facility] Start: 08-21-2024 Insertion of catheter into peripheral vein [facility] Start: 08-21-2024 Measuring intake and output [facility] Start: 08-21-[address] [facility] Start: 08-21-2024 Patient education [facility] Start: 08-21-2024 Providing care according to standard [facility] Start: 08-21-2024 Referral to occupational therapist [facility] Start: 08-21-2024 Referral to service [facility] Start: 08-21-2024 [facility] Start: 08-21-2024 Referral to hotel houseman [facility] Start: 08-21-2024 Fluid restriction [facility] Start: 08-21-2024 Verification routine [facility] Start: 08-21-2024 Hospital admission, emergency, from emergency room, medical nature [facility] Start: 08-21-2024 Admission procedure [facility] Start: 08-21-2024 End: 08-22-2024 [facility] Start: 08-21-2024 Consultation [facility] Start: 08-21-2024 Patient referral to dietitian [facility] Start: 07-31-2024 Patient referral [facility] Work Phone: Start: 03-07-2023 Patient referral [facility] Work Phone: Start: 11-18-2022 Patient referral [facility] Work Phone: Start: 11-18-2022 Patient discharge [facility] Start: 11-18-[address] [facility] Start: 11-18-2022 Patient education [facility] Start: 11-18-2022 Provision of activity privileges [facility] Start: 11-18-2022 Pulse taking [facility] Start: 11-18-2022 Taking patient vital signs [facility] Start: 11-18-2022 Wound care [facility] Start: 11-18-2022 [facility] Start: 11-18-2022 Referral to vascular surgeon [facility] Start: 11-17-2022 Catheterization of vein [facility] Start: 11-17-2022 Medication not administered [facility] Start: 11-17-[address] [facility] Start: 11-17-2022 [facility] Start: 11-17-2022 Ambulation without limitation [facility] Start: 11-17-2022 Assessment of risk of venous thromboembolism [facility] Start: 11-17-2022 Catheterization of vein [facility] Start: 11-17-2022 Insertion of catheter into peripheral vein [facility] Start: 11-17-2022 Measuring intake and output [facility] Start: 11-17-2022 Providing care according to standard [facility] Start: 11-17-2022 Referral to hotel houseman [facility] Start: 11-17-2022 [facility] Start: 11-17-2022 Verification routine [facility] Start: 11-17-2022 Admission procedure [facility] Start: 11-17-2022 Blood chemistry [facility] Start: 11-17-2022 Thyroid stimulating hormone measurement [facility] Start: 11-17-2022 End: 11-17-2022 [facility] Start: 11-17-2022 [facility] Start: 02-08-2022 Patient referral [facility] Work Phone: Start: 01-20-2022 Influenza vaccination [facility] Start: 01-03-2022 Patient referral [facility] Work Phone: Start: 10-04-2021 Plain chest X-ray Chest PA and Lateral [facility] Work Phone: Start: 07-30-2021 Patient referral [facility] Work Phone: Start: 06-30-2009 PAP TESTING PAP TESTING [facility] Start: 05-31-2007 DIABETES SCREEN DIABETES SCREEN [facility] Start: 2007 SHINGRIX VACCINE (1 of 2) SHINGRIX VACCINE (1 of 2) [facility] Start: 2002 COLOGUARD (FIT-DNA) COLOGUARD (FIT-DNA) [facility] Start: 2002 Colonoscopy COLONOSCOPY [facility] Start: 2002 COLORECTAL CANCER SCREENING COLORECTAL CANCER SCREENING [facility] Start: [address] COLONOGRAPHY [facility] Start: 2002 FECAL OCCULT BLOOD FECAL OCCULT BLOOD [facility] Start: 2002 LIPID SCREEN LIPID SCREEN [facility] Start: 2002 SIGMOIDOSCOPY SIGMOIDOSCOPY [facility] Start: 1997 Mammography MAMMOGRAM [facility] Start: 1987 HPV TESTING HPV TESTING [facility] Start: 1976 Urine microalbumin profile DTAP,TDAP,TD (1 - Tdap) [facility] Start: 1975 HEPATITIS C SCREENING HEPATITIS C SCREENING [facility] Start: 1975 HIV SCREENING HIV SCREENING [facility] Start: 1969 Adult depression screening assessment DEPRESSION SCREENING [facility] Start: 1963 PNEUMOCOCCAL (1 - PCV) PNEUMOCOCCAL (1 - PCV) [facility] Start: 1962 COVID-19 VACCINE (#1) COVID-19 VACCINE (#1) [facility] Start: 1957 COVID-19 VACCINE (#1) COVID-19 VACCINE (#1) [facility] Alanine aminotransfe rase [Enzymatic activity/volume] in Serum or Plasma [facility] Albumin [Mass/volume ] in Serum or Plasma [facility] Alkaline phosphatase [Enzymatic activity/volume] in Serum or Plasma [facility] Anion gap in Serum or Plasma [facility] BACTERIAL VAGINOSIS AMPLIFICATIO N BACTERIAL VAGINOSIS AMPLIFICATION Lab Routine Vaginal burning Vagina itching Acute vulvitis 01/04/2022 1:50 PM EDT [facility] Work Phone: Basic metabolic 2008 panel with ionized calcium - Serum or Plasma [facility] Basic metabolic 2008 panel with ionized calcium - Serum or Plasma [facility] Bilirubin, total measurement [facility] BUN/Creatinine ratio [facility] Calcium [Mass/volume ] in Serum or Plasma [facility] AGGIE / TRICHOMONA S AMPLIFICATION AGGIE / TRICHOMONAS AMPLIFICATION Lab Routine Vaginal burning Vagina itching Acute vulvitis 01/04/2022 1:50 PM EDT [facility] Work Phone: Carbon dioxide, tota l [Moles/volume] in Central venous blood [facility] Cardiac event recording [facility] CBC W Auto Different ial panel - Blood [facility] CBC W Auto Different ial panel - Blood [facility] Cholesterol [Mass/vo lume] in Serum or Plasma [facility] Cholesterol in HDL [ Mass/volume] in Serum or Plasma [facility] Creatinine [Mass/vol ume] in Serum or Plasma [facility] Erythrocyte mean cor puscular volume determination [facility] Glucose [Mass/volume ] in Serum or Plasma [facility] Hematocrit [Volume F raction] of Blood [facility] Hemoglobin [Mass/volume] in Blood [facility] INR in Blood by Coagulation assay [facility] Leukocytes [#/volume] in Blood [facility] Low density lipoprot ein cholesterol measurement [facility] Mean corpuscular hem oglobin concentration determination [facility] Mean corpuscular hem oglobin determination [facility] Measurement of renal function [facility] Natriuretic peptide. B prohormone N-Terminal [Mass/volume] in Serum or Plasma [facility] Natriuretic peptide. B prohormone N-Terminal [Mass/volume] in Serum or Plasma [facility] Neutrophil count [facility] Neutrophil percent d ifferential count [facility] Patient Education [facility] Work Phone: Patient referral [facility] Work Phone: Platelets [#/volume] in Blood [facility] Potassium measurement [facility] Prothrombin time [facility] Red blood cell count [facility] Red cell distributio n width determination [facility] Serum chloride measurement [facility] Sodium measurement [facility] Total cholesterol:HD L ratio measurement [facility] Total protein measurement [facility] Triglycerides measurement [facility] Troponin T.cardiac [ Mass/volume] in Serum or Plasma by High sensitivity method [facility] Urea nitrogen [Mass/ volume] in Serum or Plasma [facility] Urinalysis complete panel - Urine [facility] Heart [facility] US Heart limited [facility] VLDL cholesterol measurement [facility] XR Knee GE 4 Views [facility] Payers Date Payer Category Payer Medicare [id number] 2024 Medicare [id number] 2024 Self-pay [id number] 2021 Unknown [employer] PPO [id number] 2021-Present [phone] [address] [place] [address] PPO [id number] 2021 Unknown [employer] PPO [id number] 2021-Present [phone] [address] [place] [address] PPO [id number] 2004 Private Health Insurance [id number] Private Health Insurance [id number] Unknown [id number] Unknown [id number] Unknown [id number] Unknown [id number] 2.16.840.1.436029.3.579.2.4 62 Unknown [id number] 2.16.840.1.325328.3.579.2.4 62 Unknown [id number] 2.16.840.1.882747.3.579.2.4 62 Unknown [id number] 2.16.840.1.263682.3.579.2.4 62 Unknown [id number] 2.16.840.1.298173.3.579.2.4 62 Unknown [id number] 2.16.840.1.038005.3.579.2.4 62 Unknown [id number] 2.16.840.1.585226.3.579.2.4 62 Unknown [id number] 2.16.840.1.785259.3.579.2.4 62 Unknown [id number] 2.16.840.1.053884.3.579.2.4 62 Unknown [id number] 2.16.840.1.945129.3.579.2.4 62 Unknown [id number] 2.16.840.1.334097.3.579.2.4 62 Unknown [id number] 2.16.840.1.195783.3.579.2.4 62 Unknown [id number] 2.16.840.1.686441.3.579.2.4 62 Unknown [id number] 2.16.840.1.093402.3.579.2.4 62 Unknown [id number] 2.16.840.1.372534.3.579.2.4 62 Unknown [id number] 2.16.840.1.457747.3.579.2.4 62 Unknown [id number] 2.16.840.1.495947.3.579.2.4 62 Unknown [id number] 2.16.840.1.094892.3.579.2.4 62 Unknown [id number] 2.16.840.1.571237.3.579.2.4 62 Unknown [id number] 2.16.840.1.147419.3.579.2.4 62 Unknown [id number] 2.16.840.1.675198.3.579.2.4 62 Unknown [id number] 2.16.840.1.390998.3.579.2.4 62 Unknown [id number] 2.16.840.1.074172.3.579.2.4 62 Unknown [id number] 2.16.840.1.499094.3.579.2.4 62 Unknown [id number] 2.16.840.1.561410.3.579.2.4 62 Unknown [id number] 2.16.840.1.380648.3.579.2.4 62 Unknown [id number] 2.16.840.1.598519.3.579.2.4 62 Unknown [id number] 2.16.840.1.015745.3.579.2.4 62 Unknown [id number] 2.16.840.1.969924.3.579.2.4 62 Unknown [id number] 2.16.840.1.024372.3.579.2.4 62 Unknown [id number] 2.16.840.1.772099.3.579.2.4 62 Unknown [id number] 2.16.840.1.874507.3.579.2.4 62 Unknown [id number] 2.16.840.1.196516.3.579.2.4 62 Unknown [id number] 2.16.840.1.202175.3.579.2.4 62 Unknown [id number] 2.16.840.1.220893.3.579.2.4 62 Unknown [id number] 2.16.840.1.420224.3.579.2.4 62 Unknown [id number] 2.16.840.1.017441.3.579.2.4 62 Unknown [id number] 2.16.840.1.274376.3.579.2.4 62 Unknown [id number] 2.16.840.1.483518.3.579.2.4 62 Unknown [id number] 2.16.840.1.014562.3.579.2.4 62 Unknown [id number] 2.16.840.1.920748.3.579.2.4 62 Unknown [id number] 2.16.840.1.440845.3.579.2.4 62 Unknown [id number] 2.16.840.1.517454.3.579.2.4 62 Unknown [id number] 2.16.840.1.722214.3.579.2.4 62 Unknown [id number] 2.16.840.1.818041.3.579.2.4 62 Unknown [id number] 2.16.840.1.777660.3.579.2.4 62 Unknown [id number] 2.16.840.1.665092.3.579.2.4 62 Unknown [id number] 2.16.840.1.588097.3.579.2.4 62 Unknown [id number] 2.16.840.1.507808.3.579.2.4 62 Unknown [id number] 2.16.840.1.710839.3.579.2.4 62 Unknown [id number] 2.16.840.1.354527.3.579.2.4 62 Unknown [id number] 2.16.840.1.773049.3.579.2.4 62 Unknown [id number] 2.16.840.1.792791.3.579.2.4 62 Unknown [id number] 2.16.840.1.376032.3.579.2.4 62 Unknown [id number] 2.16.840.1.161931.3.579.2.4 62 Unknown [id number] 2.16.840.1.797517.3.579.2.4 62 Unknown [id number] 2.16.840.1.327398.3.579.2.4 62 Unknown [id number] 2.16.840.1.797985.3.579.2.4 62 Unknown [id number] 2.16.840.1.666108.3.579.2.4 62 Unknown [id number] 2.16.840.1.687510.3.579.2.4 62 Unknown [id number] 2.16.840.1.248372.3.579.2.4 62 Unknown [id number] 2.16.840.1.873269.3.579.2.4 62 Unknown [id number] 2.16.840.1.616003.3.579.2.4 62 Unknown [id number] 2.16.840.1.372642.3.579.2.4 62 Social History Date Type Detail Facility Start: 07-30-2021 End: 07-28-2023 Tobacco smoking status NHIS Unknown if ever smoked [facility] Start: 08-10-2020 Cigarettes [facility] Start: 1955 Sex Assigned At Female [facility] Start: 07-28-2023 End: 03-17-2025 Tobacco smoking status NHIS Smokes tobacco daily [facility] Work Phone: History of tobacco use Cigarette Smoker [facility] Start: 12-14-2016 End: 01-04-2022 Alcohol intake Current drinker of alcohol (finding) [facility] Start: 12-14-2016 End: 01-04-2022 Alcohol intake [facility] Start: 1955 Sex Assigned At Not on file [facility] Start: 09-27-2021 End: 01-04-2022 Exposure to SARS-CoV-2 (event) Not sure [facility] Start: 08-20-2024 End: 08-25-2024 Sex Female (finding) [facility] Start: 08-21-2024 End: 01-14-2025 Tobacco smoking status NHIS Ex-smoker (finding) [facility] Sex [facility] Procedure Code Equipment Code Equipment Origin al Text Equipment Identifier Dates Colonoscopy FDA Start: 03-20-2025 Colonoscopy FDA Start: 03-20-2025 [id number] FDA Start: 12-13-2024 [id number] FDA Start: 12-13-2024 ([id number]) ()[id number] FDA Start: 12-13-2024 Goals Date Patient Goal Desired Activity /State Functional Status Date Assessment Result Facility 03-23-2025 Functional status None [facility] Work Phone: 03-23-2025 Functional status Independent [facility] Work Phone: 12-14-2024 Functional status Ambulates [facility] Work Phone: 12-14-2024 Functional status Ambulates [facility] Work Phone: 08-25-2024 Functional status Ambulates [facility] Work Phone: 11-18-2022 Functional status Ambulates [facility] Work Phone: Mental Status Date Assessment Result Facility 03-23-2025 Cognitive function [facility]ropri[facility] Work Phone: 03-23-2025 Cognitive function Voice[facility]Name [facility] Work Phone: 12-14-2024 Cognitive function Voice/Name [facility] Work Phone: 12-10-2024 Cognitive function Awake;Alert;Appropriat e [facility] Work Phone: 08-25-2024 Cognitive function Voice/Name [facility] Work Phone: 08-21-2024 Cognitive function Voice/Name [facility] Work Phone: 11-18-2022 Cognitive function Voice/Name [facility] Work Phone: 11-17-2022 Cognitive function Voice/Name [facility] Work Phone: 12-03-2021 Cognitive function Level Of Cons ciousness Awake;Alert;Appropriate;Follo ws Commands;Responds to vocal stimuli [facility] Work Phone: Clinical Notes 08-10-2020 to 03-23-2025 Note Date & Type Note Facility 03-23-2025 Note [facility] 02-14-2025 Progress note [facility] 12-23-2024 Procedure note [facility] 12-14-2024 Discharge summary Note Date/Time December 14, 2024 12:53pm [facility] Medical Records Department [address] [place] [address] Instructions for Home/Discharge Instructions 12/14/24 1251 MR#: [id number] Acct: [id number] Name: CLARIBEL ALLISON Rep #:[id number] : 1955 69 From: Tatum Escobedo MD PCP: Dr. Abdulaziz Ackerman MD Status:A DM IN Discharge Instructions DC O2, CPAP, BIPAP needs Home O2 Discharge instructions: No Dressing / Incision Discharge Activity: Return to Normal Activity Weight Bearing Status: Weight bearing as tolerated Dressing / Incision Call your doctor if you observe: Fever of 101 or Higher Follow Up Care Test Results: Test results from this visit will be discussed in further detail at your follow-up appointment, if applicable. Discharge Plan Admission Admit Date/Time: 12/10/24 21:33 Primary Reason for Your Visit: atrial fibrillation with pauses Attending Provider: Tatum Escobedo Primary Care Provider: Abdulaziz Ackerman Consulting Providers: Samantha Gary; Felicia Ramesh Instructions Patient Instructions: ICD, ICD Dc, ED Heart Failure, Congestive (CHF), Heart Failure Discharge Orders/Prescriptions Prescriptions: New carvedilol 6.25 mg Tablet 6.25 mg PO BIDCM Qty: 60 2RF Entresto 24-26 mg tablet 1 tab PO BID Qty: 60 2RF Continued mupirocin [Centany] 2 % ointment 1 applic topical BID Qty: 22 0RF acetaminophen 500 mg tablet 1,000 mg PO .Q 8h PRN (Reason: fever or pain) 30 Days Qty: 30 0RF atorvastatin 20 mg tablet 20 mg PO QHS Qty: 90 2RF furosemide 40 mg tablet 40 mg PO BIDLX 30 Days Qty: 60 2RF lidocaine HCl 4 % lotion 1 applic topical BID-QID PRN (Reason: pain) Qty: 118 2RF lisinopril 20 mg tablet 20 mg PO DAILY 30 Days Qty: 30 2RF potassium chloride 20 mEq tablet extended release 20 meq PO DAILY Qty: 30 1RF warfarin 5 mg tablet 5 mg PO QDAY Qty: 60 1RF Rx Instructions: Take 5 mg daily for 6 days of the week and 7.5mg on one day of the week Discontinued sulfamethoxazole-trimethoprim [Bactrim DS] 800-160 mg tablet 1 tab PO BID Qty: 14 0RF carvedilol 3.125 mg tablet 3.125 mg PO BIDCM 30 Days Qty: 60 2RF Rx Instructions: Hold for heart less than 50 or systolic blood pressure less than 100 mmHg. Referrals / Follow Up: Jamla Munoz MD [Med Staff - Active Staff] - Within 2 Weeks Abdulaziz Ackerman MD [Primary Care Provider] - Within 2 Weeks Disposition Disposition (needs filled in before D/C Order can be placed): Home, Self Care 12/14/24 1253<Electronically signed by Tatum Escobedo MD>Tatum Escobedo MD CC: Dr. Samantha Gary MD; Dr. Abdulaziz Ackerman MD; Dr. Felicia Ramesh MD ~ Signed [facility] Work Phone: 1(547) 463-537807-26-2025 Discharge summary Author Tatum Gregg [facility] Note Date/Time December 14, 2024 2:52 pm [facility] Medical Records Department [address] [place] [address] Discharge Summary 12/14/24 1253 MR#: [id number] Acct: [id number] Name: CLARIBEL ALLISON Rep #:[id number] : 1955 69 From: Tatum Escobedo MD PCP: Dr. Abdulaziz Ackerman MD Status:A DM IN Location: [place] [address] Providers Date of Admission: 12/10/24 Date of Discharge: 12/14/24 Primary Care Physician: Dr. Abdulaziz Ackerman MD Consultations 12/13/24 03:12 Consult: Cardiology Routine Consulting Provider: Felicia Ramesh Reason for Consult: Frequent cardiac pauses. EMERGENT Consult: No MD Notified: Yes Date Notified: 12/13/24 Time Notified: 03:12 Method of Notification: Text Reason For Visit: HF EXAC, PAF RVR Diagnosis Discharge Diagnosis (1) Atrial fibrillation: Status: Chronic Code(s): I48.91 - Unspecified atrial fibrillation (2) Cardiac LV ejection fraction of 20-34%: Status: Chronic Code(s): R93.1 - Abnormal findings on diagnostic imaging of heart and coronary circulation (3) Acute exacerbation of CHF (congestive heart failure): Status: Chronic Code(s): I50.9 - Heart failure, unspecified (4) Essential hypertension: Status: Chronic Code(s): I10 - Essential (primary) hypertension (5) Thoracoabdominal aortic aneurysm (TAAA): Status: Chronic Code(s): I71.60 - Thoracoabdominal aortic aneurysm, without rupture, unspecified Qualifiers: Presence of rupture: without rupture Thoracoabdominal aorta location: supraceliac aorta Qualified Code(s): I71.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 * On IV lasix 40mg bid. Had not been compliant with her meds as she did not have money to purchase more lasix once she run out. * has known EF of 20% and severe global hypokinesis and moderately enlarged left atriium and mild moderate LVI. * will switch to PO lasix today * #Paroxysmal afib * currently rate controlled. * on coumadin. Monitor INR. * her cardiac pauses worsened overnight, extending up to 10 seconds. Cardiology therefore consulted and patient to have a defibrillator/pacemaker inserted today * * * # Bilateral knee pain in the setting of osteoarthritis. resolved. Bilateral knee xrays showed no acute pathology. ON PO tylenol, oxycodone prn. PT/OT On board. #Hypertension: on lisinopril, coreg and cardizem. Coreg and cardizem on hold due to bradycardia #Hyperlipidemia: on statin. #Class II obesity: BMI is 32.8. Complicates acute care, expected recovery and prognosis. DVT prophylaxis: on coumadin. Monitor INR. INR is therapeutic at 2.3 today Medications at Discharge Home Medications acetaminophen 500 mg tablet 1,000 mg (2 x 500 mg) PO .Q 8h PRN fever or pain 30 days #30 tabs 11/18/24 atorvastatin 20 mg tablet 20 mg PO QHS #90 tabs 11/18/24 furosemide 40 mg tablet 40 mg PO BIDLX 30 days #60 tabs 11/18/24 lidocaine HCl 4 % lotion 1 applic topical BID-QID PRN pain #118 mL 11/18/24 lisinopril 20 mg tablet 20 mg PO DAILY 30 days #30 tabs 11/18/24 potassium chloride 20 mEq tablet,extended release 20 meq PO DAILY SUPPLEMENT #30tabs 11/18/24 warfarin 5 mg tablet 5 mg PO QDAY #60 tabs 11/18/24 mupirocin 2 % topical ointment (Centany) 1 applic topical BID Infection #22 grams 11/25/24 carvedilol 6.25 mg tablet 6.25 mg PO BIDCM #60 tabs 12/14/24 sacubitril 24 mg-valsartan 26 mg tablet (Entresto) 1 tab PO BID #60 tabs 12/14/24 Hospital Course Operations None Procedures 2-D Echocardiogram and - (ICD insertion) Summary of Care Provided Minutes Spent on Discharge: 45 Hospital Course: Patient is a 69-year-old female with past medical history as outlined was admitted to the ED on 12/10/2024 with a complaint of shortness of breath which had been going on for several days. She had run out of money and had not been able to purchase her Lasix for several days. He had recently been admitted in August 2024 for heart failure with reduced ejection fraction and paroxysmal A-fibwith RVR with intermittent bradycardia and pauses. At that time plan was for possible future pacemaker for tachybradycardia syndrome and she had had a Holtermonitor placed on discharge but she did not follow-up with cardiology subsequently. On admission this time proBNP was elevated at 6070 and chest x-ray showed mild edema in the setting of cardiomegaly. Initial troponin was 34 with delta troponin of 38. INR was 1.8. EKG showed A-fib with heart rate of 124 and occasional PVCs. She was admitted and managed for acute exacerbation ofheart failure with reduced ejection fraction. She was diuresed with IV Lasix. Her shortness of breath did improve and she felt better. However she did have some cardiac pauses and despite her beta-latisha being held the pauses persistedand went up to 10 seconds in duration. Cardiology was therefore consulted and she had an ICD/pacemaker inserted on 12/13/2024. She tolerated the procedure well. 2D echo from previous admission showed EF of 20%. Entresto was added on and she was continued on her diuretic. She is to follow-up with her primary care doctor and cardiology within 1 to 2 weeks. Of note her carvedilol was increased to 6.25 mg twice daily. Patient was counseled that she would benefit from a few days in the rehab facility but patient adamantly refused and insistedon going home. She was therefore discharged home on 12/14/2024. Patient seen and examined prior to discharge. She had no active complaints and was eager to be discharged home. Labs and vitals reviewed. Home medication reviewed and reconciled. Physical Exam Const alert, oriented x3 and no apparent distress Constitutional Narrative: Class I obesity General Appearance: cooperative and comfortable Orientation / Consciousness: awake HEENT normocephalic, head/scalp atraumatic, hearing grossly normal bilaterally, moist oral mucous membranes and oropharynx normal Mouth: oral and palatal mucosa normal Eyes PERRL and EOMs intact bilaterally Neck no lymphadenopathy and supple Resp normal respiratory effort, normal air movement and clear to auscultation bilaterally Cardio regular rate, regular rhythm, S1 normal heart sound, S2 normal heart sound and no murmurs GI normal to inspection, nondistended, normoactive bowel sounds, soft to palpation and non-tender Extremity Extremity Narrative: mild bilateral knee tenderness on palpation has resolved, no differential warmth General Extremity: no tenderness to palpation of joints or extremities Skin no rashes or lesions noted General Skin Exam: no breakdown Neuro oriented x3, CN's II-XII intact bilaterally, moves all extremities and no focal motor deficits Sensorium / Orientation: awake and alert Motor Exam: strength 5/5 throughout and general weakness Psych thought process normal and cooperative Appearance: appropriate Weight / BMI Weight Weight: 195 lb 5.273 oz Body Mass Index (BMI) 31.5 ABG / Lab / Microbiology Data 12/14/24 04:37 12/14/24 04:37 Laboratory: Laboratory Results - last 24 hr 12/13/24 15:10: Urine Color Straw, Urine Clarity Clear, Urine pH 7.0, Ur Specific Bom[place] 1.010, Urine Protein Negative, Urine Glucose (UA) Normal, UrineKetones Negative, Urine Occult Blood Negative, Urine Nitrite Negative, Urine Bilirubin Negative, Urine Urobilinogen Normal, Ur Leukocyte Esterase Negative, Urine RBC 0-5 SEEN, Urine WBC 0-5 SEEN, Ur Squamous Epith Cells 0-5 SEEN, Urine Bacteria 0 SEEN, Urine Mucus 0 SEEN 12/13/24 16:20: POC Glucose 132 H 12/14/24 04:37: WBC 6.1, RBC 5.08, Hgb 10.4 L, Hct 36.4 L, MCV 71.7 L, MCH 20.5 L, MCHC 28.6 L, RDW Std Deviation 56.0 H, RDW Coeff of Ele 22.5 H, Plt Count 231, MPV 9.9, Immature Gran % (Auto) 0.300, Neut % (Auto) 65.2, Lymph % (Auto) 22.7, [place] % (Auto) 9.8, Eos % (Auto) 1.3, Baso % (Auto) 0.7, Absolute Neuts (auto) 4.0, Absolute Lymphs (auto) 1.39, Nucleated RBC % 0, Differential CommentSCANNED, Anisocytosis 2+, Sodium 136, Potassium 4.0, Chloride 98, Carbon Cohxlvx88.9, Anion Gap 16 H, BUN 20 H, Creatinine 0.94, Estim Creat Clear Calc 65.11, Est GFR (MDRD) Non-Af 67, BUN/Creatinine Ratio 21.2 H, Glucose 94, Calcium 8.8 12/14/24 06:41: POC Glucose 91 Radiography Diagnostic Testing: Radiology Impression Chest X-Ray 12/13/24 17:32 IMPRESSION: Probable mild edema in the setting of cardiomegaly. ICD as above. Reading Location: [facility] Chest X-Ray 12/14/24 04:45 IMPRESSION: Unremarkable pacer placement. Reading Location: [place] [address] D/C Instructions Discharge Activity: Return to Normal Activity Weight Bearing Status: Weight bearing as tolerated Call your doctor if you observe: Fever of 101 or Higher DC O2, CPAP, BIPAP Needs Home O2 Discharge instructions: No DC home with Oxygen: No Meaningful Use Info Meaningful Use Meaningful Use Diagnoses (Choose all that apply): CHF CHF BHAVIN/ARB ordered at discharge?: Yes Documented LVEF (%): 20 Discharge Plan Admission Admit Date/Time: 12/10/24 21:33 Primary Reason for Your Visit: atrial fibrillation with pauses Attending Provider: Tatum Escobedo Primary Care Provider: Abdulaziz Ackerman Consulting Providers: Samantha Gary; Felicia Ramesh Instructions Patient Instructions: ICD, ICD Dc, ED Heart Failure, Congestive (CHF), Heart Failure Discharge Orders/Prescriptions Prescriptions: New carvedilol 6.25 mg Tablet 6.25 mg PO BIDCM Qty: 60 2RF Entresto 24-26 mg tablet 1 tab PO BID Qty: 60 2RF Continued mupirocin [Centany] 2 % ointment 1 applic topical BID Qty: 22 0RF acetaminophen 500 mg tablet 1,000 mg PO .Q 8h PRN (Reason: fever or pain) 30 Days Qty: 30 0RF atorvastatin 20 mg tablet 20 mg PO QHS Qty: 90 2RF furosemide 40 mg tablet 40 mg PO BIDLX 30 Days Qty: 60 2RF lidocaine HCl 4 % lotion 1 applic topical BID-QID PRN (Reason: pain) Qty: 118 2RF lisinopril 20 mg tablet 20 mg PO DAILY 30 Days Qty: 30 2RF potassium chloride 20 mEq tablet extended release 20 meq PO DAILY Qty: 30 1RF warfarin 5 mg tablet 5 mg PO QDAY Qty: 60 1RF Rx Instructions: Take 5 mg daily for 6 days of the week and 7.5mg on one day of the week Discontinued sulfamethoxazole-trimethoprim [Bactrim DS] 800-160 mg tablet 1 tab PO BID Qty: 14 0RF carvedilol 3.125 mg tablet 3.125 mg PO BIDCM 30 Days Qty: 60 2RF Rx Instructions: Hold for heart less than 50 or systolic blood pressure less than 100 mmHg. Referrals / Follow Up: Jamal Munoz MD [Med Staff - Active Staff] - Within 2 Weeks Abdulaziz Ackerman MD [Primary Care Provider] - Within 2 Weeks Disposition Disposition (needs filled in before D/C Order can be placed): Home, Self Care Charges/Coding Visit Charges Inpatient E&M: 16900 Disch Hosp >30min 12/14/24 1452 <Electronically signed by Tatum Escobedo MD> Cosigner Signature (if applicable): CC: Dr. Abdulaziz Ackerman MD; Dr. Tatum Escboedo MD~ Signed [facility] Work Phone: 1(635) 591-822007-26-2025 Hospital Discharge instructionsAdditional Instructions Date of Discharge: 12/14/24[facility] Work Phone: 1(678) 467-100207-26-2025 Progress note Author Jamal Munoz [facility] Note Date/Time December 14, 2024 10:5 4am [facility] Medical Records Department [address] [place] [id number] Progress Note - Cardiology 12/14/24 1052 MR#: [id number] Acct: [id number] Name: CLARIBEL ALLISON Rep #:[id number] : 1955 69 From: Jamal Munoz MD PCP: Dr. Abdulaziz Ackerman MD Status:A DM IN Location: [place] [address]- Subjective Subjective Patient seen and evaluated. Doing well status post defibrillator placement Objective Data Vital Signs: Vital Signs Temp Pulse Resp BP Pulse Ox O2 Del Method O2 Flow Rate 98.1 F 82 15 139/95 H 95 Room Air 2 12/14/24 08:43 12/14/24 08:43 12/14/24 08:43 12/14/24 08:43 12/14/24 08:43 12/14/24 08:43 12/13/24 14:00 Oxygen Flow Rate (L/min) 2 Oxygen Delivery Method Room Air Weight: 195 lb 5.273 oz Body Mass Index (BMI) 31.5 Intake & Output: Intake and Output for Last 24 Hours 12/12/24 12/13/24 12/14/24 23:59 23:59 23:59 Intake Total 790 / 790 420 / 420 Output Total 700 / 700 2800 / 4450 1850 / 1850 Balance 90 / 90 -2380 / -4030 -1850 / -1850 Lab / Micro Data 12/14/24 04:37 12/14/24 04:37 Labs: Laboratory Results - last 24 hr 12/13/24 12:37: POC Glucose 79 12/13/24 15:10: Urine Color Straw, Urine Clarity Clear, Urine pH 7.0, Ur Specific [place] 1.010, Urine Protein Negative, Urine Glucose (UA) Normal, UrineKetones Negative, Urine Occult Blood Negative, Urine Nitrite Negative, Urine Bilirubin Negative, Urine Urobilinogen Normal, Ur Leukocyte Esterase Negative, Urine RBC 0-5 SEEN, Urine WBC 0-5 SEEN, Ur Squamous Epith Cells 0-5 SEEN, Urine Bacteria 0 SEEN, Urine Mucus 0 SEEN 12/13/24 16:20: POC Glucose 132 H 12/14/24 04:37: WBC 6.1, RBC 5.08, Hgb 10.4 L, Hct 36.4 L, MCV 71.7 L, MCH 20.5 L, MCHC 28.6 L, RDW Std Deviation 56.0 H, RDW Coeff of Ele 22.5 H, Plt Count 231, MPV 9.9, Immature Gran % (Auto) 0.300, Neut % (Auto) 65.2, Lymph % (Auto) 22.7, [place] % (Auto) 9.8, Eos % (Auto) 1.3, Baso % (Auto) 0.7, Absolute Neuts (auto) 4.0, Absolute Lymphs (auto) 1.39, Nucleated RBC % 0, Differential CommentSCANNED, Anisocytosis 2+, Sodium 136, Potassium 4.0, Chloride 98, Carbon Dqmkjvc70.9, Anion Gap 16 H, BUN 20 H, Creatinine 0.94, Estim Creat Clear Calc 65.11, Est GFR (MDRD) Non-Af 67, BUN/Creatinine Ratio 21.2 H, Glucose 94, Calcium 8.8 12/14/24 06:41: POC Glucose 91 Cardiology Labs/Tests 12/13/24 15:10: Urine Color Straw, Urine Clarity Clear, Urine pH 7.0, Ur Specific [place] 1.010, Urine Protein Negative, Urine Glucose (UA) Normal, UrineKetones Negative, Urine Occult Blood Negative, Urine Nitrite Negative, Urine Bilirubin Negative, Urine Urobilinogen Normal, Ur Leukocyte Esterase Negative, Urine RBC 0-5 SEEN, Urine WBC 0-5 SEEN 12/14/24 04:37: WBC 6.1, RBC 5.08, Hgb 10.4 L, Hct 36.4 L, MCV 71.7 L, MCH 20.5 L, MCHC 28.6 L, Plt Count 231, MPV 9.9, Immature Gran % (Auto) 0.300, Neut % (Auto) 65.2, Lymph % (Auto) 22.7, [place] % (Auto) 9.8, Eos % (Auto) 1.3, Baso % (Auto) 0.7, Absolute Neuts (auto) 4.0, Nucleated RBC % 0, Sodium 136, Potassium 4.0, Chloride 98, Carbon Dioxide 22.9, Anion Gap 16 H, BUN 20 H, Creatinine 0.94, Est GFR (MDRD) Non-Af 67, BUN/Creatinine Ratio 21.2 H, Glucose 94, Calcium8.8 Rhythm: EKG: ECHO: Stress Test: Cardiac Cath: PCI: CT Surgery: Holter monitor: EPS: PPM: CXR: Chest CT Scan: Radiography Diagnostic Testing: Radiology Impression Chest X-Ray 12/13/24 17:32 IMPRESSION: Probable mild edema in the setting of cardiomegaly. ICD as above. Reading Location: [facility] Chest X-Ray 12/14/24 04:45 IMPRESSION: Unremarkable pacer placement. Reading Location: [place] [address] Physical Exam Const alert, oriented x3 and no apparent distress Constitutional Narrative: Class I obesity General Appearance: cooperative HEENT normocephalic, head/scalp atraumatic, moist oral mucous membranes and oropharynxnormal Neck no lymphadenopathy and supple Resp normal respiratory effort, normal air movement and clear to auscultation bilaterally Cardio regular rate, regular rhythm, S1 normal heart sound, S2 normal heart sound and no murmurs GI normal to inspection, nondistended, normoactive bowel sounds, soft to palpation and non-tender Extremity General Extremity: no tenderness to palpation of joints or extremities Skin General Skin Exam: no breakdown Neuro CN's II-XII intact bilaterally and no focal motor deficits Motor Exam: strength 5/5 throughout and general weakness Psych thought process normal and cooperative Appearance: appropriate Assessment & Plan Assessment/Plan (1) Atrial fibrillation: PLAN: Patient has atrial fibrillation with a controlled ventricular response rate and significant ventricular pauses. The patient had a defibrillator pacer placed yesterday. Will hold off on 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 resumption until tomorrow. (2) Cardiac LV ejection fraction of 20-34%: PLAN: Patient with significant left ventricular systolic dysfunction. She underwent a dual-chamber defibrillator placement yesterday. Chest x-ray demonstrates that is under good position and defibrillator check demonstrates excellent function. Will follow-up in our device clinic after discharge. Thereis a question as to whether she can manage on her own and we may be looking intoputting her in the transitional care unit for a few days. Will increase her carvedilol Continue diuretic And add Entresto. (3) Acute exacerbation of CHF (congestive heart failure): PLAN: Will institute guideline directed medical therapy as noted above. (4) Essential hypertension: PLAN: Will institute guideline directed medical therapy as noted above. 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 12/14/24 1059 <Electronically signed by Jamal Munoz MD> Cosigner Signature (if applicable): CC: ~ Signed [facility] Work Phone: [phone] [facility]07-26-2025 Radiology Diagnostic study [facility]07-25-2025 Radiology Diagnostic study [facility]07-25-2025 Progress note Author Tatum Escobedo [facility] Note Date/Time December 13, 2024 10:4 1am [facility] Medical Records Department [address] [place] [address] Progress Note 12/13/24 1034 MR#: [id number] Acct: [id number] Name: CLARIEBL ALLISON Rep #:[id number] : 1955 69 From: Tatum Escobedo MD PCP: Dr. Abdulaziz Ackerman MD Status:A DM IN Location: [place] [address] Subjective Subjective Patient seen and examined with her nurse by her bedside. She had no active complaints today. She did have increasing cardiac pauses up to 10 seconds yesterday so cardiology was consulted as she is due to go for pacemaker/defibrillator today. Patient admits to feeling a bit anxious about the procedure but is agreeable to having it done. She has otherwise remained hemodynamically stable. Objective Data Objective Data Vital Signs: Vital Signs Temp Pulse Resp BP Pulse Ox O2 Del Method O2 Flow Rate 96.6 F L 72 18 128/84 H 94 Room Air 2 12/13/24 03:48 12/13/24 03:48 12/13/24 03:48 12/13/24 03:48 12/13/24 03:48 12/13/24 03:48 12/10/24 19:08 Oxygen Flow Rate (L/min) 2 Oxygen Delivery Method Room Air Weight: 200 lb 6.403 oz Body Mass Index (BMI) 32.3 Intake & Output: Intake and Output for Last 24 Hours 12/11/24 12/12/24 12/13/24 23:59 23:59 23:59 Intake Total 1200 / 1200 790 / 790 Output Total 1000 / 1000 700 / 700 Balance 200 / 200 90 / 90 Lab / Micro Data 12/13/24 05:15 12/13/24 05:15 Labs: Laboratory Results - last 24 hr 12/12/24 11:31: PT 21.4 H, INR 1.8 12/12/24 11:52: POC Glucose 131 H 12/13/24 05:15: WBC 6.5, RBC 5.11, Hgb 10.3 L, Hct 36.9 L, MCV 72.2 L, MCH 20.2 L, MCHC 27.9 L, RDW Std Deviation 56.9 H, RDW Coeff of Ele 22.5 H, Plt Count 286, MPV 9.7, Immature Gran % (Auto) 0.300, Neut % (Auto) 64.0, Lymph % (Auto) 23.5, [place] % (Auto) 9.9, Eos % (Auto) 1.5, Baso % (Auto) 0.8, Absolute Neuts (auto) 4.2, Absolute Lymphs (auto) 1.54, Nucleated RBC % 0.3, Platelet Estimate A, Anisocytosis 1+, Sodium 141, Potassium 3.7, Chloride 101, Carbon Dioxide 27.8, Anion Gap 12, BUN 23 H, Creatinine 0.91, Estim Creat Clear Calc 68.13, EstGFR (MDRD) Non-Af 70, BUN/Creatinine Ratio 24.9 H, Glucose 99, Calcium 8.9 12/13/24 08:45: PT 26.1 H, INR 2.3 Radiography Diagnostic Testing: Radiology Impression Knee X-Ray 12/12/24 15:50 IMPRESSION: No acute osseous abnormalities. Osteoarthrosis. Reading Location: [facility] Knee X-Ray 12/12/24 15:50 IMPRESSION: No acute osseous abnormalities. Osteoarthrosis. Reading Location: [facility] Physical Exam Const alert, oriented x3 and no apparent distress Constitutional Narrative: Class I obesity General Appearance: cooperative HEENT normocephalic, head/scalp atraumatic, moist oral mucous membranes and oropharynxnormal Neck no lymphadenopathy and supple Resp normal respiratory effort, normal air movement and clear to auscultation bilaterally Cardio regular rate, regular rhythm, S1 normal heart sound, S2 normal heart sound and no murmurs GI normal to inspection, nondistended, normoactive bowel sounds, soft to palpation and non-tender Extremity General Extremity: no tenderness to palpation of joints or extremities Skin General Skin Exam: no breakdown Neuro CN's II-XII intact bilaterally and no focal motor deficits Motor Exam: strength 5/5 throughout and general weakness Psych thought process normal and cooperative Appearance: appropriate Assessment & Plan Assessment/Plan (1) Congestive heart failure: PLAN: Plan #Acute decompensated HFrEF * has a history of HFrEF. * On IV lasix 40mg bid. Had not been compliant with her meds as she did not have money to purchase more lasix once she run out. * has known EF of 20% and severe global hypokinesis and moderately enlarged left atriium and mild moderate LVI. * will switch to PO lasix today * #Paroxysmal afib * currently rate controlled. * on coumadin. Monitor INR. * her cardiac pauses worsened overnight, extending up to 10 seconds. Cardiology therefore consulted and patient to have a defibrillator/pacemaker inserted today * * * # Bilateral knee pain in the setting of osteoarthritis. resolved. Bilateral knee xrays showed no acute pathology. ON PO tylenol, oxycodone prn. PT/OT On board. #Hypertension: on lisinopril, coreg and cardizem. Coreg and cardizem on hold due to bradycardia #Hyperlipidemia: on statin. #Class II obesity: BMI is 32.8. Complicates acute care, expected recovery and prognosis. DVT prophylaxis: on coumadin. Monitor INR. INR is therapeutic at 2.3 today Charges/Coding Visit Charges Inpatient E&M: 45427 Subs Hosp L2 12/13/24 1041 <Electronically signed by Tatum Escobedo MD> Tatum Escobedo MD Cosigner Signature (if applicable): CC: ~ Signed [facility] Work Phone: 1(874) 294-122607-25-2025 Consult note Author Jamal Munoz [facility] Note Date/Time December 13, 2024 8:38 am [facility] Medical Records Department [address] [place] [address] Consultation - Cardiology 12/13/24 0821 MR#: [id number] Acct: [id number] Name: CLARIBEL ALLISON Rep #:[id number] : 1955 69 From: Jamal Munoz MD PCP: Dr. Abdulaziz Ackerman MD Status:A DM IN [facility] Assessment & Plan Assessment/Plan (1) Atrial fibrillation: PLAN: Patient has atrial fibrillation with a controlled ventricular response rate and significant ventricular pauses. My recommendation at this time would be to hold the 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 and to place a implantable defibrillator with pacemaker backup due to the reduced ejection fraction. This has been discussed with co op who agrees and will be performing the procedure. I also had an extensive discussion with the patient and also spoke for over 15 minutes with the patient's Sister Ct on the phone. All in agreement at this time. (2) Cardiac LV ejection fraction of 20-34%: PLAN: Patient with significant left ventricular systolic dysfunction. Her QRS complex is narrow and so she will have an implantable defibrillator as primary prevention and then will be able to start guideline directed medical therapy with beta-latisha, ARNI, SGLT2 inhibitor, and diuretic. (3) Acute exacerbation of CHF (congestive heart failure): PLAN: Will institute guideline directed medical therapy as noted above. (4) Essential hypertension: PLAN: Will institute guideline directed medical therapy as noted above. 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 HPI Consult Data Date of Consult: 12/13/24 HPI Narrative HPI Narrative: CLARIBEL ALLISON, is a 69 F who we are asked to see due to persistent pauses over 3.5 seconds. She was a previous patient of the heart group service with a history of permanent atrial fibrillation. She had been seen in August of this year after she had had a 30 pound weight gain over 3 months and was taking increasing doses of her diuretics. She had had an elevated proBNP and was also noted to be mildly anemic. At that time she was noted to be in atrial fibrillation with a rapid ventricular response rate was put on 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 as well as beta-latisha. She had had a cardiac catheterization in October 2022 andat that time demonstrated normal left ventricular ejection fraction of 60% normal LAD, and mild disease in the circumflex and right coronary arteries. Repeat echocardiogram done in August demonstrated marked reduction in low ventricular ejection fraction estimated to be 20% with severe global LV dysfunction. She has had some shortness of breath but no dizziness no diaphoresis no near-syncope she has also had pedal edema. Telemetry monitoring demonstrated significant pauses and cardiology was called for further evaluationand management. 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 Q 8h PRN 11/18/24 Unknown Rx fever or pain 30 days #30 tabs atorvastatin 20 mg tablet 20 mg PO QHS #90 tabs Unknown Rx carvedilol 3.125 mg tablet 3.125 mg PO BIDCM 1 month # 60 tabs 11/18/24 Unknown Rx furosemide 40 mg tablet 40 mg PO BIDLX 30 days #60 t abs 11/18/24 Unknown Rx lidocaine HCl 4 % lotion 1 applic topical BID-QID PRN pain 11/18/24 Unknown Rx #118 mL lisinopril 20 mg tablet 20 mg PO DAILY 30 days #30 t abs 11/18/24 Unknown Rx potassium chloride 20 mEq 20 meq PO DAILY SUPPLEMENT # 30 tabs 11/18/24 Unknown Rx tablet,extended release warfarin 5 mg tablet 5 mg PO QDAY #60 tabs Unknown Rx mupirocin 2 % topical ointment 1 applic topical BID In fection #22 11/25/24 Unknown Rx (Centany) grams sulfamethoxazole 800 1 tab PO BID Infection #14 t abs 11/25/24 Unknown Rx mg-trimethoprim 160 mg tablet (Bactrim DS) Allergy/AdvReac Type Severity Reaction Status Date / Time latex Allergy Mild rash Verified 12/10/24 18:09 trazodone Allergy Mild Tingling Verified 12/10/24 18:09 coconut Allergy Unknown PT UNABLE Verified 12/10/24 18:09 TO RESPOND-NEEDS F/U Fish Containing Products Allergy Unknown PT UNABLE Verified 12/10/24 18:09 TO RESPOND-NEEDS F/U propoxyphene (From Allergy Hives Verified 12/10/24 18:09 Darvocet-N) acetaminophen (From AdvReac Intermediate Nausea/Vom/ Verified 12/10/24 18:09 Darvocet-N) Diarrhea lactose (dairy lactose) AdvReac Intermediate Nausea/Vom/ Verified 12/11/24 08:52 Diarrhea Family History Mother Anxiety Arthritis Depression Hypertension Father Anxiety Arthritis Depression Hypertension Other Thyroid disorder Surgical History H/O tubal ligation History of cholecystectomy H/O elbow surgery Social History housing: house Smoking Status: Former smoker alcohol intake: never substance use type: does not use what type of physical activity do you participate in: walking frequency: 5-6 times per week ROS Constitutional Constitutional: Denies fever(s) or weight loss Eyes Eyes: Reports systems reviewed and no addt'l complaints, except as documented ENT HEENT: Reports systems reviewed and no addt'l complaints, except as documented Cardiovascular Cardiovascular: Reports dyspnea at rest and dyspnea on exertion; Denies chest pain at rest, chest pain with activity, edema, palpitations or paroxysmal nocturnal dyspnea Respiratory/Chest Respiratory/Chest: Denies dyspnea on exertion, productive cough, shortness of breath at rest or shortness of breath with exertion Gastrointestinal Gastrointestinal: Denies change in bowel habits, nausea, vomiting or weight changes Genitourinary Genitourinary: Denies difficulty urinating Musculoskeletal Musculoskeletal: Denies joint stiffness or muscle weakness Integumentary Integumentary: Denies lesions Neurologic Neurologic: Denies dizziness or syncope Psychiatric Psychiatric: Denies anxiety Endocrine Endocrinology: Denies excessive sweating or fatigue Hematologic/Lymphatic Hematologic/Lymphatic: Denies anemia Allergic/Immunologic Allergic/Immunologic: Denies seasonal rhinorrhea Physical Exam Const alert, oriented x3 and no apparent distress General Appearance: cooperative HEENT hearing grossly normal bilaterally Head and Scalp: atraumatic Eyes EOMs intact bilaterally Neck General: normal visual inspection Chest inspection of chest normal and palpation of chest normal Resp normal respiratory effort Auscultation: clear to auscultation bilaterally Cardio S1 normal heart sound and S2 normal heart sound Jugular Venous Distention: JVD Rhythm: abnormal rhythm irregularly irregular GI normal to inspection, nondistended, normoactive bowel sounds Extremity normal capillary refill and no pedal edema General Extremity: edema bilateral Peripheral Pulses: Yes pulses 2+ throughout and femoral pulses present Skin no rashes or lesions noted Neuro oriented x3 and CN's II-XII intact bilaterally Psych Appearance: grossly normal and appropriate Risk Stratification Risk Stratification Applicable: No Objective Data Vital Signs: Vital Signs Temp Pulse Resp BP Pulse Ox O2 Del Method O2 Flow Rate 96.6 F L 72 18 128/84 H 94 Room Air 2 12/13/24 03:48 12/13/24 03:48 12/13/24 03:48 12/13/24 03:48 12/13/24 03:48 12/13/24 03:48 12/10/24 19:08 Oxygen Flow Rate (L/min) 2 Oxygen Delivery Method Room Air Weight: 200 lb 6.403 oz Body Mass Index (BMI) 32.3 Intake & Output: Intake and Output for Last 24 Hours 12/11/24 12/12/24 12/13/24 23:59 23:59 23:59 Intake Total 1200 / 1200 790 / 790 Output Total 1000 / 1000 700 / 700 Balance 200 / 200 90 / 90 Lab / Micro Data 12/13/24 05:15 12/13/24 05:15 Labs: Laboratory Results - last 24 hr 12/12/24 07:41: Platelet Estimate A, Polychromasia 1+, Anisocytosis 2+, Macrocytosis 1+, Ovalocytes 1+, Sodium 138, Potassium 3.7, Chloride 100, Carbon Dioxide 25.8, Anion Gap 12, BUN 21 H, Creatinine 0.99, Estim Creat Clear Calc 62.76, Est GFR (MDRD) Non-Af 63, BUN/Creatinine Ratio 21.3 H, Glucose 113 H, Calcium 8.8 12/12/24 11:31: PT 21.4 H, INR 1.8 12/12/24 11:52: POC Glucose 131 H 12/13/24 05:15: WBC 6.5, RBC 5.11, Hgb 10.3 L, Hct 36.9 L, MCV 72.2 L, MCH 20.2 L, MCHC 27.9 L, RDW Std Deviation 56.9 H, RDW Coeff of Ele 22.5 H, Plt Count 286, MPV 9.7, Immature Gran % (Auto) 0.300, Neut % (Auto) 64.0, Lymph % (Auto) 23.5, [place] % (Auto) 9.9, Eos % (Auto) 1.5, Baso % (Auto) 0.8, Absolute Neuts (auto) 4.2, Absolute Lymphs (auto) 1.54, Nucleated RBC % 0.3, Platelet Estimate A, Anisocytosis 1+, Sodium 141, Potassium 3.7, Chloride 101, Carbon Dioxide 27.8, Anion Gap 12, BUN 23 H, Creatinine 0.91, Estim Creat Clear Calc 68.13, EstGFR (MDRD) Non-Af 70, BUN/Creatinine Ratio 24.9 H, Glucose 99, Calcium 8.9 Cardiology Labs/Tests 12/12/24 07:41: Sodium 138, Potassium 3.7, Chloride 100, Carbon Dioxide 25.8, Anion Gap 12, BUN 21 H, Creatinine 0.99, Est GFR (MDRD) Non-Af 63, BUN/Creatinine Ratio 21.3 H, Glucose 113 H, Calcium 8.8 12/12/24 11:31: PT 21.4 H, INR 1.8 12/13/24 05:15: WBC 6.5, RBC 5.11, Hgb 10.3 L, Hct 36.9 L, MCV 72.2 L, MCH 20.2 L, MCHC 27.9 L, Plt Count 286, MPV 9.7, Immature Gran % (Auto) 0.300, Neut % (Auto) 64.0, Lymph % (Auto) 23.5, [place] % (Auto) 9.9, Eos % (Auto) 1.5, Baso % (Auto) 0.8, Absolute Neuts (auto) 4.2, Nucleated RBC % 0.3, Sodium 141, Potassium 3.7, Chloride 101, Carbon Dioxide 27.8, Anion Gap 12, BUN 23 H, Creatinine 0.91, Est GFR (MDRD) Non-Af 70, BUN/Creatinine Ratio 24.9 H, Glucose 99, Calcium 8.9 Rhythm: EKG: ECHO: Stress Test: Cardiac Cath: PCI: CT Surgery: Holter monitor: EPS: PPM: CXR: Chest CT Scan: Radiography Diagnostic Testing: Radiology Impression Knee X-Ray 12/12/24 15:50 IMPRESSION: No acute osseous abnormalities. Osteoarthrosis. Reading Location: [facility] Knee X-Ray 12/12/24 15:50 IMPRESSION: No acute osseous abnormalities. Osteoarthrosis. Reading Location: [facility] 12/13/24 0838 <Electronically signed by Jamal Munoz MD> Cosigner Signature (if applicable): CC: Dr. Abdulaziz Ackerman MD~ Signed [facility] Work Phone: 1(732) 562-247907-25-2025 Procedure [facility] 12-13-2024 Progress note Author Samantha Gary [facility] Note Date/Time December 13, 2024 3:12 am [facility] Medical Records Department [address] [place] [address] Progress Note - Hospitalist 12/13/245 MR#: [id number] Acct: [id number] Name: CLARIBEL ALLISON Rep #:[id number] : 1955 69 From: Samantha Gary MD PCP: Dr. Abdulaziz Ackerman MD Status:A DM IN Location: [place] [address] Hospitalist Note Patient with recurrent pause, 3.28 seconds, asymptomatic, BB already held. 12/13/245 <Electronically signed by Samantha Gary MD> Cosigner Signature (if applicable): CC: ~ Signed ADDENDUM by Dr. Samantha Gary MD on 12/13/24 at 0312 Addendum Patient with additional pause events, 10 seconds and 5 seconds. Given increasingrecurrence despite BB d/c, will request cardiology re-evaluation as at this point it seems likely she would need to be considered for pacemaker. 12/13/24311<Electronically signed by Samantha Gary MD> Cosigner Signature (if applicable): cc: ~* Signed [facility] Work Phone: 1(268) 267-189207-24-2025 Radiology Diagnostic study [facility]07-24-2025 Radiology Diagnostic study [facility]07-24-2025 Progress note [facility] Note Date/Time December 12, 2024 11:0 1am [facility] Medical Records Department [address] [place] [address] Progress Note 12/12/24 1041 MR#: [id number] Acct: [id number] Name: CLARIBEL ALLISON Rep #:[id number] : 1955 69 From: Tatum Escobedo MD PCP: Dr. Abdulaziz Ackerman MD Status:A DM IN Location: [place] [address] Subjective Subjective Patient seen and examined. She complained of bilateral knee pain. She does have a history of arthritis. She was noted to have some pauses in her heart rate up to around 4 seconds today while she was sleeping in the early hours. Heart rate is 50 this morning. Beta-blockers held. Review of systems otherwisenegative. She is on room air. I saw her with her nurse by bedside. Objective Data Objective Data Vital Signs: Vital Signs Temp Pulse Resp BP Pulse Ox O2 Del Method O2 Flow Rate 97.8 F 50 L 17 125/82 H 95 Room Air 2 12/12/24 09:45 12/12/24 09:45 12/12/24 09:45 12/12/24 09:45 12/12/24 09:45 12/12/24 09:45 12/10/24 19:08 Oxygen Flow Rate (L/min) 2 Oxygen Delivery Method Room Air Weight: 201 lb 4.513 oz Body Mass Index (BMI) 32.5 Intake & Output: Intake and Output for Last 24 Hours 12/10/24 12/11/24 12/12/24 23:59 23:59 23:59 Intake Total 0 / 0 1200 / 1200 300 / 300 Output Total 1000 / 1000 400 / 400 Balance 0 / 0 200 / 200 -100 / -100 Lab / Micro Data 12/12/24 07:41 12/12/24 07:41 Labs: Laboratory Results - last 24 hr 12/11/24 11:16: POC Glucose 248 H 12/11/24 16:52: POC Glucose 112 H 12/11/24 21:15: POC Glucose 99 12/12/24 06:17: POC Glucose 120 H 12/12/24 07:41: WBC 6.6, RBC 4.90, Hgb 10.0 L, Hct 34.8 L, MCV 71.0 L, MCH 20.4 L, MCHC 28.7 L, RDW Std Deviation 55.8 H, RDW Coeff of Ele 22.5 H, Plt Count 286, MPV 9.7, Immature Gran % (Auto) 0.500, Neut % (Auto) 63.6, Lymph % (Auto) 21.2, [place] % (Auto) 11.6 H, Eos % (Auto) 2.0, Baso % (Auto) 1.1 H, Absolute Neuts (auto) 4.2, Absolute Lymphs (auto) 1.39, Nucleated RBC % 0.5, Platelet Estimate A, Polychromasia 1+, Anisocytosis 2+, Macrocytosis 1+, Ovalocytes 1+, Sodium 138, Potassium 3.7, Chloride 100, Carbon Dioxide 25.8, Anion Gap 12, BUN 21 H, Creatinine 0.99, Estim Creat Clear Calc 62.76, Est GFR (MDRD) Non-Af 63, BUN/Creatinine Ratio 21.3 H, Glucose 113 H, Calcium 8.8 Physical Exam Const alert, oriented x3 and no apparent distress Constitutional Narrative: Class I obesity General Appearance: cooperative HEENT normocephalic, head/scalp atraumatic, moist oral mucous membranes and oropharynxnormal Neck no lymphadenopathy and supple Resp normal respiratory effort, normal air movement and clear to auscultation bilaterally Cardio regular rate, regular rhythm, S1 normal heart sound, S2 normal heart sound and no murmurs GI normal to inspection, nondistended, normoactive bowel sounds, soft to palpation and non-tender Extremity Extremity Narrative: mild bilateral knee tenderness on palpation, no differential warmth Skin General Skin Exam: no breakdown Neuro CN's II-XII intact bilaterally and no focal motor deficits Motor Exam: strength 5/5 throughout and general weakness Psych thought process normal and cooperative Appearance: appropriate Assessment & Plan Assessment/Plan (1) Congestive heart failure: PLAN: Plan #Acute decompensated HFrEF * has a history of HFrEF. * On IV lasix 40mg bid. Had not been compliant with her meds as she did not have money to purchase more lasix once she run out. * has known EF of 20% and severe global hypokinesis and moderately enlarged left atriium and mild moderate LVI. * will switch to PO lasix today * #Paroxysmal afib * currently rate controlled. * on coumadin. Monitor INR. * On coreg. Coreg held today due to bradycardia and cardiac pauses. If the pauses continue, will consult cardiolgy * # Bilateral knee pain in the setting of osteoarthritis. Will get bilateral x- rays of the knees.. Tylenol p.o. oxycodone as needed. PT OT on board. #Hypertension: on lisinopril, coreg and cardizem. #Hyperlipidemia: on statin. #Class II obesity: BMI is 32.8. Complicates acute care, expected recovery and prognosis. DVT prophylaxis: on coumadin. Monitor INR. Charges/Coding Visit Charges Inpatient E&M: 39965 Subs Hosp L2 12/12/24 1101 <Electronically signed by Tatum Escobedo MD> Tatum Escobedo MD Cosigner Signature (if applicable): CC: ~ Signed [facility] Work Phone: [phone]) 951-682207-24-2025 Progress note Author Samantha Gary [facility] Note Date/Time December 12, 2024 4:36 am [facility] Medical Records Department [address] [place] [address] Progress Note - Hospitalist 12/12/24 0436 MR#: [id number] Acct: [id number] Name: CLARIBEL ALLISON Rep #:[id number] : 1955 69 From: Samantha Gary MD PCP: Dr. Abdulaziz Ackerman MD Status:A DM IN Location: [facility] [id number] Hospitalist Note Patient with recurrent pauses similar to her previous presentation. Will hold her beta-latisha therapy. If ongoing may need to consider cardiology consultation. 12/12/24 0436 <Electronically signed by Samantha Gary MD> Cosigner Signature (if applicable): CC: ~ Signed [facility] Work Phone: 1(601) 286-202707-23-2025 Progress note Author Tatum Escobedo [facility] Note Date/Time December 11, 2024 2:48 pm [facility] Medical Records Department [address] [place] [address] Progress Note 12/11/24 1345 MR#: [id number] Acct: [id number] Name: CLARIBEL ALLISON Rep #:[id number] : 1955 69 From: Tatum Escobedo MD PCP: Dr. Abdulaziz Ackerman MD Status:A DM IN Location: [place] [address] Subjective Subjective Patient seen and examined. She was comfortably eating breakfast. She had no complaints and had an uneventful night. She was admitted with complaint of shortness of breath and being managed for acute exacerbation of heart failure. Her nurse was also by her bedside. Review of systems otherwise negative. Objective Data Objective Data Vital Signs: Vital Signs Temp Pulse Resp BP Pulse Ox O2 Del Method O2 Flow Rate 97.3 F L 89 20 H 109/54 L 96 Room Air 2 12/11/24 08:47 12/11/24 09:01 12/11/24 08:47 12/11/24 08:47 12/11/24 10:58 12/11/24 10:58 12/10/24 19:08 Oxygen Flow Rate (L/min) 2 Oxygen Delivery Method Room Air Weight: 203 lb 0.732 oz Body Mass Index (BMI) 32.8 Intake & Output: Intake and Output for Last 24 Hours 12/09/24 12/10/24 12/11/24 23:59 23:59 23:59 Intake Total 0 / 0 480 / 480 Output Total 400 / 400 Balance 0 / 0 80 / 80 Lab / Micro Data 12/11/24 05:36 12/11/24 05:36 Labs: Laboratory Results - last 24 hr 12/10/24 18:13: WBC 7.8, RBC 4.93, Hgb 9.9 L, Hct 35.5 L, MCV 72.0 L, MCH 20.1 L, MCHC 27.9 L, RDW Std Deviation 56.9 H, RDW Coeff of Ele 22.5 H, Plt Count 344,MPV 9.7, Immature Gran % (Auto) 0.500, Neut % (Auto) 71.0 H, Lymph % (Auto) 18.5L, [place] % (Auto) 8.0, Eos % (Auto) 1.1, Baso % (Auto) 0.9, Absolute Neuts (auto)5.6, Absolute Lymphs (auto) 1.45, Nucleated RBC % 0.4, Differential Comment SCANNED, Platelet Estimate ADEQUATE, Polychromasia 1+, Anisocytosis 2+, PT 21.2 H, INR 1.8, Sodium 139, Potassium 4.0, Chloride 105, Carbon Dioxide 21.9, Anion Gap 12, BUN 15, Creatinine 0.76, Estim Creat Clear Calc 73.39, Est GFR (MDRD) Non-Af 86, BUN/Creatinine Ratio 19.0, Glucose 86, Calcium 8.5, Troponin T High Sens 34 H, NT pro BNP II 6070 H 12/10/24 20:16: Magnesium 2.0, Troponin T Hi Sens 2 Hr 38 H 12/10/24 22:26: Troponin T Hi Sens 4Hr 31 H 12/11/24 01:00: POC Glucose 114 H 12/11/24 05:36: WBC 5.8, RBC 4.84, Hgb 9.9 L, Hct 34.6 L, MCV 71.5 L, MCH 20.5 L, MCHC 28.6 L, RDW Std Deviation 57.0 H, RDW Coeff of Ele 22.6 H, Plt Count 293,MPV 9.9, Immature Gran % (Auto) 0.300, Neut % (Auto) 62.5, Lymph % (Auto) 25.5, [place] % (Auto) 8.8, Eos % (Auto) 1.9, Baso % (Auto) 1.0, Absolute Neuts (auto) 3.6, Absolute Lymphs (auto) 1.47, Nucleated RBC % 0.5, Differential Comment SCANNED, Anisocytosis 2+, Microcytosis 2+, Ovalocytes RARE, [place] Cells RARE, PT 19.6 H, INR 1.6, Sodium 139, Potassium 3.9, Chloride 103, Carbon Dioxide 23.4, Anion Gap 12, BUN 18, Creatinine 0.95, Estim Creat Clear Calc 65.70, Est GFR (MDRD) Non-Af 66, BUN/Creatinine Ratio 18.6, Glucose 121 H, Calcium 8.6, Total Bilirubin 0.92, AST 23, ALT 17, Alkaline Phosphatase 82, Total Protein 6.4, Albumin 3.3 L, Globulin 3.1, Albumin/Globulin Ratio 1.1, Triglycerides 68, Cholesterol 84, LDL Cholesterol, Calc 50, VLDL Cholesterol 14, HDL Cholesterol 21 L, Cholesterol/HDL Ratio 4.02, TSH 1.910 12/11/24 06:35: POC Glucose 115 H 12/11/24 11:16: POC Glucose 248 H Radiography Diagnostic Testing: Radiology Impression Chest X-Ray 12/10/24 19:15 IMPRESSION: Probable mild edema in the setting of cardiomegaly. Reading Location: [facility] Physical Exam Const alert, oriented x3 and no apparent distress Constitutional Narrative: Class I obesity General Appearance: cooperative HEENT normocephalic, head/scalp atraumatic, moist oral mucous membranes and oropharynxnormal Neck no lymphadenopathy and supple Resp normal respiratory effort, normal air movement and clear to auscultation bilaterally Cardio regular rate, regular rhythm, S1 normal heart sound, S2 normal heart sound and no murmurs GI normal to inspection, nondistended, normoactive bowel sounds, soft to palpation and non-tender Extremity General Extremity: no tenderness to palpation of joints or extremities Skin General Skin Exam: no breakdown Neuro CN's II-XII intact bilaterally and no focal motor deficits Motor Exam: strength 5/5 throughout and general weakness Psych thought process normal and cooperative Appearance: appropriate Assessment & Plan Assessment/Plan (1) Congestive heart failure: PLAN: Plan #Acute decompensated HFrEF * has a history of HFrEF. * On IV lasix 40mg bid. Had not been compliant with her meds as she did not have money to purchase more lasix once she run out. * has known EF of 20% and severe global hypokinesis and moderately enlarged left atriium and mild moderate LVI. * #Paroxysmal afib * currently rate controlled. * on coumadin. Monitor INR. * On coreg. * #Hypertension: on lisinopril, coreg and cardizem. #Hyperlipidemia: on statin. #Class II obesity: BMI is 32.8. Complicates acute care, expected recovery and prognosis. DVT prophylaxis: on coumadin. Monitor INR. Charges/Coding Visit Charges Inpatient E&M: 26968 Subs Hosp L2 12/11/24 1448 <Electronically signed by Tatum Escobedo MD> Tatum Escobedo MD Cosigner Signature (if applicable): CC: ~ Signed [facility] Work Phone: [phone]) 997-798307-23-2025 Discharge summary Author Devyn Houston [facility] Note Date/Time December 10, 2024 10:3 6pm [facility] Medical Records Department [address] [place] [address] Emergency Department Summary 12/10/24 MR#: [id number] Acct: [id number] Name: CLARIBEL ALLISON Rep #:[id number] : 1955 69 From: Devyn Lim PCP: Dr. Abdulaziz Ackerman MD Status:A DM IN Location: [place] [address] HPI History of Present Illness Chief Complaint: Shortness of Breath [facility] Medical History Ulcer of left lower extremity [...] effort Acute hypokalemia Chest pain Non-ST elevation NV (NSTEMI) Atrial flutter Borderline type 2 diabetes mellitus GERD (gastroesophageal reflux disease) Acute low back pain Elevated random blood glucose level Anxiety and depression Menopausal disorder Melanoma Preoperative clearance Flu vaccine need Current use of halfway 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 Obesity Elevated troponin (08/09/20) Hyperlipidemia Nicotine dependence History of pulmonary embolus (PE) (08/10/20) Essential hypertension Wound of left lower extremity Insomnia Change in skin mole Heart failure with preserved ejection fraction Shortness of breath Osteoarthritis of left knee Chronic pain of left knee Tobacco use Arthritis Acute hypoxemic respiratory failure (08/09/20) Home Medications ?Medication ?Instructions ?Recorded ?Last Taken ?Type acetaminophen 500 mg tablet 1,000 mg (2 x 500 mg) PO . Q 8h PRN 11/18/24 Unknown Rx fever or pain 30 days #30 tabs atorvastatin 20 mg tablet 20 mg PO QHS #90 tabs Unknown Rx carvedilol 3.125 mg tablet 3.125 mg PO BIDCM 1 month # 60 tabs 11/18/24 Unknown Rx furosemide 40 mg tablet 40 mg PO BIDLX 30 days #60 t abs 11/18/24 Unknown Rx lidocaine HCl 4 % lotion 1 applic topical BID-QID PRN pain 11/18/24 Unknown Rx #118 mL lisinopril 20 mg tablet 20 mg PO DAILY 30 days #30 t abs 11/18/24 Unknown Rx potassium chloride 20 mEq 20 meq PO DAILY SUPPLEMENT # 30 tabs 11/18/24 Unknown Rx tablet,extended release warfarin 5 mg tablet 5 mg PO QDAY #60 tabs Unknown Rx mupirocin 2 % topical ointment 1 applic topical BID #2 2 grams 11/25/24 Unknown Rx (Centany) sulfamethoxazole 800 1 tab PO BID #14 tabs Unknown Rx mg-trimethoprim 160 mg tablet (Bactrim DS) Allergy/AdvReac Type Severity Reaction Status Date / Time latex Allergy Mild rash Verified 12/10/24 18:09 trazodone Allergy Mild Tingling Verified 12/10/24 18:09 coconut Allergy Unknown PT UNABLE Verified 12/10/24 18:09 TO RESPOND-NEEDS F/U Fish Containing Products Allergy Unknown PT UNABLE Verified 12/10/24 18:09 TO RESPOND-NEEDS F/U propoxyphene (From Allergy Hives Verified 12/10/24 18:09 Darvocet-N) acetaminophen (From AdvReac Intermediate Nausea/Vom/ Verified 12/10/24 18:09 Darvocet-N) Diarrhea Family History Other Anxiety Arthritis Depression Hypertension Thyroid disorder Surgical History H/O tubal ligation History of cholecystectomy H/O elbow surgery Social History housing: house Smoking Status: Former smoker alcohol intake: never substance use type: does not use what type of physical activity do you participate in: walking frequency: 5-6 times per week EXAM Physical Exam Const Vital Signs: 12/10/24 18:09 12/10/24 18:15 12/10/24 19:08 Temperature 98.5 F Temperature Source Oral Pulse Rate 123 H 114 H Respiratory Rate 20 H 20 H Respiratory Effort Short of Breath Respiratory Depth Shallow Respiratory Pattern Tachypnea Blood Pressure 155/83 H 125/94 H Blood Pressure Mean 107 104 Pulse Ox 98 100 Oxygen Delivery Method Nasal Cannula Nasal Cannula Oxygen Flow Rate (L/min) 2 2 12/10/24 20:00 12/10/24 21:00 Temperature Temperature Source Pulse Rate 84 96 Respiratory Rate 30 H 30 H Respiratory Effort Respiratory Depth Respiratory Pattern Blood Pressure 113/87 H 114/64 Blood Pressure Mean 95 80 Pulse Ox 91 98 Oxygen Delivery Method Room Air Room Air Oxygen Flow Rate (L/min) MDM MDM MDM Narrative Medical decision making narrative: HISTORY OF PRESENT ILLNESS: Chief complaint: Shortness of breath, chest pain 69-year-old female history of atrial fibrillation, type 2 diabetes, CHF, thoracic abdominal aneurysm, PE on warfarin presents with 1 day of chest pain and shortness of breath. Notes that she typically shortness of breath secondaryto heart failure and COPD however has been worse over the last several days. She notes lower extremity edema, orthopnea. Notes she ran out of money and cannot buy Lasix so she is been out of her Lasix for last several days. She notes chest pain that began this morning. Notes it resolved prior to arrival. She does note compliance with her home warfarin. She denies hemoptysis, unilateral leg swelling, recent surgery, chemotherapy or estrogen use. She denies ripping or tearing pain. She denies cough fever or chills or sick contacts. REVIEW OF SYSTEMS: Pertinent positives: Chest pain, shortness of breath, leg swelling Pertinent negatives: Syncope, focal weakness PHYSICAL EXAM: Nursing triage notes reviewed, Vital signs reviewed Constitutional: please see mdm HENT: MMM Eyes: Pupils equal round and reactive to light, Extraocular muscles intact Neck: No stridor, no JVD, full neck ROM Lungs: Clear to auscultation, slight increased work of breathing, bilateral rales Heart: Regular rate and rhythm, No murmurs, No rubs and No gallops, 2+ distal pulses (radial, femoral, posterior tibial) in all extremities Abdomen: Soft, there is no tenderness, rigidity, rebound or guarding, no obviousperitoneal signs, no palpable pulsatile abdominal masses, no auscultated abdominal bruit : No CVAT Extremities: 1-2+ pitting edema bilateral lower extremities Neuro: No new focal neurological deficits, cranial nerves II through XII intact,5/5 strength in all present extremities. Intact sensation to light touch in all present extremities, 2+ reflexes bilateral patella tendons. Skin: No rash or lesions noted MEDICAL DECISION MAKING: Chief Complaint: please see [facility] External records reviewed: Last hospitalization in August for acute exacerbation of CHF Factors affecting care: As per HPI Social determinants of health: History obtained from others: EMS Consults: Internal medicine (Dr. Gary) [facility] Narrative: The patient was initially hypertensive with a blood pressure 155/83, tachycardicwith heart rate of 123, tachypneic with respirate of 20, she was saturating 98% on room air on my exam. Lungs with rales bilaterally. 1+ pitting edema bilateral lower extremities noted. Clinical exam most consistent with CHF exacerbation likely exacerbated by A-fib/flutter with RVR I considered the following differential diagnosis: CHF exacerbation, arrhythmia,anemia, ACS, PE, electrolyte disturbance I obtained a broad lab and imaging workup to further elucidate to further determine if the patient was suffering from a life-threatening etiology. Initially treat the patient with IV metoprolol to slow her initial fast rate. ALL IMAGES (IF OBTAINED) HAVE BEEN PERSONALLY REVIEWED AND INTERPRETED BY MYSELF. Initial EKG with A-fib/a flutter rate of 124, right axis deviation, occasional PVCs, prolonged QTc at 491, no STEMI CBC with no leukocytosis, noted baseline mild anemia, no thrombocytopenia No coagulopathy noted BMP without significant [place] abnormalities, no acute kidney Initial troponin indeterminate, delta troponin also indeterminate will wait for third Initial BNP elevated consistent with CHF Chest x-ray was read reviewed myself showed evidence of pulmonary edema consistent with CHF exacerbation The synthesis of the patient's history, physical exam, labs images suggest likely CHF exacerbation. This was treated 60 mg IV Lasix. On reevaluation patient heart rate improved to 96 blood pressure was 114/64 she remained tachypneic. She is appropriate for admit to PCU. Discussed hospitalist Dr. Gary The patient and/or family, caregivers express understanding. The patient and/orfamily, caregivers agrees with the plan. Shared decision making: I will have a discussion with the patient and or visitors regarding risk/benefits of further testing or admission. They will be made aware of of the risk/benefits inherent in this decision they will be given the opportunity to voice understanding. Total critical care time today provided was at least 0 minutes. This excludes separately billable procedures. Critical care time (if documented) is secondary to the patient having high probability of clinically significant/life threatening deterioration in the patient's condition which required my urgent intervention. Impression: 1. Dyspnea 2. History of CHF 3. A-fib/a flutter with RVR Dispo: Admit to PCU This note was generated with [employer] dictation software. It may contain incorrectwords, spelling, and punctuation that were not noted in review of the chart prior to signing. Lab Data Labs: Laboratory Results - last 24 hr 12/10/24 12/10/24 18:13 20:16 WBC 7.8 RBC 4.93 Hgb 9.9 L Hct 35.5 L MCV 72.0 L MCH 20.1 L MCHC 27.9 L RDW Std Deviation 56.9 H RDW Coeff of Ele 22.5 H Plt Count 344 MPV 9.7 Immature Gran % (Auto) 0.500 Neut % (Auto) 71.0 H Lymph % (Auto) 18.[address] [place] % (Auto) 8.0 Eos % (Auto) 1.1 Baso % (Auto) 0.9 Absolute Neuts (auto) 5.6 Absolute Lymphs (auto) 1.45 Nucleated RBC % 0.4 Differential Comment SCANNED Platelet Estimate ADEQUATE Polychromasia 1+ Anisocytosis 2+ PT 21.2 H INR 1.8 Sodium 139 Potassium 4.0 Chloride 105 Carbon Dioxide 21.9 Anion Gap 12 BUN 15 Creatinine 0.76 Estim Creat Clear Calc 73.39 Est GFR (MDRD) Non-Af 86 BUN/Creatinine Ratio 19.0 Glucose 86 Calcium 8.5 Troponin T High Sens 34 H Troponin T Hi Sens 2 Hr 38 H NT pro BNP II 6070 H Radiography Diagnostic Testing: Clinical Impression(s) from Imaging Studies Chest X-Ray 12/10/24 19:15 IMPRESSION: Probable mild edema in the setting of cardiomegaly. Reading Location: [facility] Discharge Plan Triage Chief Complaint: Shortness of Breath ED Provider: Devyn Houston Dx/Rx/DC Orders Prescriptions: No Action sulfamethoxazole-trimethoprim [Bactrim DS] 800-160 mg tablet 1 tab PO BID Qty: 14 0RF mupirocin [Centany] 2 % ointment 1 applic topical BID Qty: 22 0RF acetaminophen 500 mg tablet 1,000 mg PO .Q 8h PRN (Reason: fever or pain) 30 Days Qty: 30 0RF atorvastatin 20 mg tablet 20 mg PO QHS Qty: 90 2RF carvedilol 3.125 mg tablet 3.125 mg PO BIDCM 30 Days Qty: 60 2RF Rx Instructions: Hold for heart less than 50 or systolic blood pressure less than 100 mmHg. furosemide 40 mg tablet 40 mg PO BIDLX 30 Days Qty: 60 2RF lidocaine HCl 4 % lotion 1 applic topical BID-QID PRN (Reason: pain) Qty: 118 2RF lisinopril 20 mg tablet 20 mg PO DAILY 30 Days Qty: 30 2RF potassium chloride 20 mEq tablet extended release 20 meq PO DAILY Qty: 30 1RF warfarin 5 mg tablet 5 mg PO QDAY Qty: 60 1RF Rx Instructions: Take 5 mg daily for 6 days of the week and 7.5mg on one day of the week Primary Care Provider: Abdulaziz Ackerman Referrals: Abdulaziz Ackerman MD [Primary Care Provider] - Print Language: Mohawk What to do if you have Problems For any increased pain, shortness of breath, bleeding, nausea or vomiting, chestpain, or any unexpected problems, contact your Primary Care Provider. Call [facility] ([phone]) or report to the closest Emergency Room. Call 911 if necessary. 12/10/242235 <Electronically signed by Devyn Houston DO> Cosigner Signature (if applicable): CC: Dr. Abdulaziz Ackerman MD ~ Signed [facility] Work Phone: [phone] History and physical note Author Samantha Gary [facility] Note Date/Time December 10, 2024 10:2 5pm [facility] Medical Records Department [address] [place] [address] H&P Exam - Hospitalist 12/10/242131 MR#: [id number] Acct: [id number] Name: CLARIBEL ALLISON Rep #:[id number] : 1955 69 From: Samantha Gary MD PCP: Dr. Abdulaziz Ackerman MD Status:R EG ER Location: ED HPI - General General Date of Admission: 12/10/24 Date of Service: 12/10/24 Chief Complaint: Dyspnea. HPI Narrative The patient is a 69 y/o F w/ PMHx: Obesity, HFrEF, HTN, HLD, PAF/Flutter, Formertobacco use, Anxiety and Depression, GERD, Prediabetes (07/24/24 Hgb 6.1%), Chronic microcytic anemia, CKD stage II per GFR trending, most recent discharge 08/24/2024 following evaluation and treatment of heart failure with reduced EF, PAF with RVR with intermittent bradycardia and pauses with plan at that discharge for possible future pacemaker for tachybradycardia syndrome in order to be able to initiate beta-latisha in the setting of low EF with plan at discharge for Holter monitor/event monitor with no follow-up with cardiology noted in [employer] system with patient instructed to follow-up within [address] Dominguez per discharge instructions for now presents to the [facility] ED on 12/10/24 with history of dyspnea ongoing over the last several days noting that she ran out of money and was unable to purchase her Lasix therapy with onset chest discomfort starting on a.m. on day of presentation resolving prior to ED presentation. Workup in the ED included T98.5, heart 123, BP 155/83, respiratoryrate 20, 98% on 2 L nasal cannula with most recent repeat vitals heart rate 114,BP 125/94, respiratory rate 20, 100% on 2 L nasal cannula, BMP with BUN/creatinine 15/0.76, GFR 86, CBC with WBC 7.8, hemonine 0.9, MCV 72, [id number] without marked shift, NT proBNP 6070, chest x-ray with mild edema in the setting of cardiomegaly, troponin initial 34 with repeat delta 38, INR 1.8, EKG with A-fib with rate 124 with occasional PVC with QTc 491. In the ED patient administered Lasix 60 mg IV x 1, Toradol 50 mg IV x 1, metoprolol 5 mg IV x 1, morphine 2 mg IV x 1. [facility] Medical History Ulcer of left lower extremity [...] effort Acute hypokalemia Chest pain Non-ST elevation NV (NSTEMI) Atrial flutter Borderline type 2 diabetes mellitus GERD (gastroesophageal reflux disease) Acute low back pain Elevated random blood glucose level Anxiety and depression Menopausal disorder Melanoma Preoperative clearance Flu vaccine need Current use of halfway 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 Obesity Elevated troponin (08/09/20) Hyperlipidemia Nicotine dependence History of pulmonary embolus (PE) (08/10/20) Essential hypertension Wound of left lower extremity Insomnia Change in skin mole Heart failure with preserved ejection fraction Shortness of breath Osteoarthritis of left knee Chronic pain of left knee Tobacco use Arthritis Acute hypoxemic respiratory failure (08/09/20) Home Medications ?Medication ?Instructions ?Recorded ?Last Taken ?Type acetaminophen 500 mg tablet 1,000 mg (2 x 500 mg) PO . Q 8h PRN 11/18/24 Unknown Rx fever or pain 30 days #30 tabs atorvastatin 20 mg tablet 20 mg PO QHS #90 tabs Unknown Rx carvedilol 3.125 mg tablet 3.125 mg PO BIDCM 1 month # 60 tabs 11/18/24 Unknown Rx furosemide 40 mg tablet 40 mg PO BIDLX 30 days #60 t abs 11/18/24 Unknown Rx lidocaine HCl 4 % lotion 1 applic topical BID-QID PRN pain 11/18/24 Unknown Rx #118 mL lisinopril 20 mg tablet 20 mg PO DAILY 30 days #30 t abs 11/18/24 Unknown Rx potassium chloride 20 mEq 20 meq PO DAILY SUPPLEMENT # 30 tabs 11/18/24 Unknown Rx tablet,extended release warfarin 5 mg tablet 5 mg PO QDAY #60 tabs Unknown Rx mupirocin 2 % topical ointment 1 applic topical BID #2 2 grams 11/25/24 Unknown Rx (Centany) sulfamethoxazole 800 1 tab PO BID #14 tabs Unknown Rx mg-trimethoprim 160 mg tablet (Bactrim DS) Allergy/AdvReac Type Severity Reaction Status Date / Time latex Allergy Mild rash Verified 12/10/24 18:09 trazodone Allergy Mild Tingling Verified 12/10/24 18:09 coconut Allergy Unknown PT UNABLE Verified 12/10/24 18:09 TO RESPOND-NEEDS F/U Fish Containing Products Allergy Unknown PT UNABLE Verified 12/10/24 18:09 TO RESPOND-NEEDS F/U propoxyphene (From Allergy Hives Verified 12/10/24 18:09 Darvocet-N) acetaminophen (From AdvReac Intermediate Nausea/Vom/ Verified 12/10/24 18:09 Darvocet-N) Diarrhea Family History (Updated 12/10/24 @ 22:[address] Samantha Gray MD) Mother Anxiety Arthritis Depression Hypertension Father Anxiety Arthritis Depression Hypertension Other Thyroid disorder Surgical History H/O tubal ligation History of cholecystectomy H/O elbow surgery Social History housing: house Smoking Status: Former smoker alcohol intake: never substance use type: does not use what type of physical activity do you participate in: walking frequency: 5-6 times per week ROS ROS Narrative Admission Review of Systems: CONSTITUTIONAL: No weight loss, fever, chills, +weakness or fatigue. HEENT: Eyes: No visual loss, blurred vision, double vision or yellow sclerae. Ears, Nose, Throat: No hearing loss, sneezing, congestion, runny nose or sore throat. SKIN: No rash or itching, lesions, wounds. CARDIOVASCULAR: + Chest pain, edema, orthopnea. No palpitations, syncopal events. RESPIRATORY: + Dyspnea. No cough or sputum, wheezing, hemoptysis. GASTROINTESTINAL: No anorexia, nausea, vomiting or diarrhea, abdominal pain, melena, BRBPR. GENITOURINARY: No dysuria, frequency, urgency or retention. NEUROLOGICAL: No headache, dizziness, syncope, paralysis, ataxia, numbness or tingling in the extremities, focal weakness, change in bowel or bladder control,seizure. MUSCULOSKELETAL: + muscle, back pain, joint pain or stiffness. HEMATOLOGIC: + Chronic anemia, easy bleeding/bruising. LYMPHATICS: No enlarged nodes. No history of splenectomy. PSYCHIATRIC: + History of anxiety and depression. ENDOCRINOLOGIC: No reports of sweating, cold or heat intolerance. No polyuria orpolydipsia. ALLERGIES: + History of hives. Vital Signs Vital Signs Vital Signs: 12/10/24 18:09 12/10/24 18:15 12/10/24 19:08 Temperature 98.5 F Temperature Source Oral Pulse Rate 123 H 114 H Respiratory Rate 20 H 20 H Respiratory Effort Short of Breath Respiratory Depth Shallow Respiratory Pattern Tachypnea Blood Pressure 155/83 H 125/94 H Blood Pressure Mean 107 104 Pulse Ox 98 100 Oxygen Delivery Method Nasal Cannula Nasal Cannula Oxygen Flow Rate (L/min) 2 2 12/10/24 20:00 12/10/24 21:00 Temperature Temperature Source Pulse Rate 84 96 Respiratory Rate 30 H 30 H Respiratory Effort Respiratory Depth Respiratory Pattern Blood Pressure 113/87 H 114/64 Blood Pressure Mean 95 80 Pulse Ox 91 98 Oxygen Delivery Method Room Air Room Air Oxygen Flow Rate (L/min) Weight Weight: 187 lb Body Mass Index (BMI) 31.1 Physical Exam Narrative Physical Examination: General: Awake, alert, oriented x 3 and cooperative, seated upright in the ED bed, fatigued. Skin: Normal color, normal turgor, no icterus, no cyanosis except occasional stage ecchymoses, abrasion, bilateral lower extremity venous stasis skin changes. HEENT: AT/NC, EOMI, PERRLA, MMM, no carotid bruits, + JVD noted. Lungs: Diminished, greater bases, mildly increased respiratory rate but no distress, mild rales bilateral bases, no rhonchi or wheezing. Heart: Irregular, rate improved; no gallop, rub audible. Abdomen: Soft, obese, NTTP, ND, distant normal BS, no appreciated HSM. Extremities: No cyanosis, no clubbing, pedal to knee 2-3+ pitting edema. Neurological: Patient awake, alert, oriented as noted, cognitive function intact; pupils equally reactive to light and accommodation, cranial nerves grossly normal, moving all 4 extremities, no focal deficits, strength moderatelyto severely global decreased Psychiatric: Affect appears flat, fatigued, no acute evidence of depressive or anxiety feelings but does have underlying history. Results Lab / Micro Data 12/10/24 18:13 12/10/24 18:13 Labs: Laboratory Results - last 24 hr 12/10/24 18:13: WBC 7.8, RBC 4.93, Hgb 9.9 L, Hct 35.5 L, MCV 72.0 L, MCH 20.1 L, MCHC 27.9 L, RDW Std Deviation 56.9 H, RDW Coeff of Ele 22.5 H, Plt Count 344,MPV 9.7, Immature Gran % (Auto) 0.500, Neut % (Auto) 71.0 H, Lymph % (Auto) 18.5L, [place] % (Auto) 8.0, Eos % (Auto) 1.1, Baso % (Auto) 0.9, Absolute Neuts (auto)5.6, Absolute Lymphs (auto) 1.45, Nucleated RBC % 0.4, Differential Comment SCANNED, Platelet Estimate ADEQUATE, Polychromasia 1+, Anisocytosis 2+, PT 21.2 H, INR 1.8, Sodium 139, Potassium 4.0, Chloride 105, Carbon Dioxide 21.9, Anion Gap 12, BUN 15, Creatinine 0.76, Estim Creat Clear Calc 73.39, Est GFR (MDRD) Non-Af 86, BUN/Creatinine Ratio 19.0, Glucose 86, Calcium 8.5, Troponin T High Sens 34 H, NT pro BNP II 6070 H 12/10/24 20:16: Troponin T Hi Sens 2 Hr 38 H Imaging Radiology Impression Chest X-Ray 12/10/24 19:15 IMPRESSION: Probable mild edema in the setting of cardiomegaly. Reading Location: [facility] Assessment & Plan Assessment/Plan (1) Congestive heart failure: (2) Atrial fibrillation: PLAN: Plan The patient is a 69 y/o F w/ PMHx: Obesity, HFrEF, HTN, HLD, PAF/Flutter, Formertobacco use, Anxiety and Depression, GERD, Prediabetes (3/5/25 Hgb 6.1%), Chronic microcytic anemia, CKD stage II per GFR trending, most recent discharge 08/24/2024 following evaluation and treatment of heart failure with reduced EF, PAF with RVR with intermittent bradycardia and pauses with plan at that discharge for possible future pacemaker for tachybradycardia syndrome in order to be able to initiate beta-latisha in the setting of low EF with plan at discharge for Holter monitor/event monitor with no follow-up with cardiology noted in [employer] system with patient instructed to follow-up within [address] Dominguez per discharge instructions for now presents to the [facility] ED on 12/10/24 with history of dyspnea ongoing over the last several days noting that she ran out of money and was unable to purchase her Lasix therapy with onset chest discomfort starting on a.m. on day of presentation resolving prior to ED presentation. #1. Acutely Decompensated HFrEF Exacerbation with associated #2 with mildly elevated troponins of unclear significance likely secondary to demand ischemia: CXR obtained in the ED w/ mild edema in the setting of cardiomegaly. Patient administered IV lasix in the ED, will admit to PCU, maintain on cardiac telemetry obtain cardiac enzyme series, obtain serial EKGs, continue IV lasix diuresis, monitor I/Os, maintain on intake restriction, continue medical therapy, obtain TSH and magnesium level. Most recent ECHO noted 08/21/2024 with normal LV size, LVEF 20%, severe global hypokinesis LV, moderately enlarged LA, mild to moderate MVI, mildly dilated aortic root, RA mildly enlarged thus will defer repeat. #2. Paroxsymal atrial fibrillation/paroxysmal atrial flutter w/ RVR with prolonged QTc 491: EKG in ED w/ atrial fibrillation w/ RVR. Patient administeredIV Lopressor in ED. Will maintain on telemetry, obtain cardiac enzyme serial set, obtain magnesium level, recent echocardiogram as noted above thus will defer repeat, will obtain TSH level. Will continue Coumadin with INR trending with an additional dose x 1 given subtherapeutic INR upon presentation. Will continue patient low-dose Coreg. #3. Concern for recurrent cardiac pauses, possibly tachybradycardia syndrome: Recent presentation with concerns, noted plan at most recent discharge for outpatient Holter monitor/event monitor and cardiology follow-up but from records does not appear that patient followed up, TSH, magnesium requested, maintain on telemetry. #4. Hypertension: Continue home regimen including lisinopril, Coreg low-dose, IV Cardizem as noted, IV Lasix, PRN hydralazine. #5. Hyperlipidemia: Continue home statin regimen. AM FLP. #6. Chronic microcytic anemia: Admission hemoglobin 9.9, MCV 72, baseline hemoglobin 10, continue to trend. #7. Chronic Kidney Disease Stage II per GFR trending: Admission BUN/Cr 15/0.76,GFR 86, baseline renal function 0.6-1.1, repeat BMP in AM. #8. Anxiety and depression: Per current list does not appear to be on regimen, encourage continued outpatient follow-up and evaluation with PCP as previously arranged. #9. Prediabetes: Per current list patient is not on regimen, will maintain on ADA diet, accu checks w/ ISS. #10. Former tobacco use: Encourage continued tobacco cessation. #11. Obesity: Weight loss and lifestyle changes encouraged. #12. GERD: Per current list not on regimen, will have Mylanta if necessary. #13. DVT prophylaxis: Will continue Coumadin with INR trending with an additional dose x 1 given subtherapeutic INR. #14. CODE status: Patient HCPOA is per sister she notes and living will is currently in place. Discussed CODE status at length including difference betweenFULL code, DNR-CCA and DNR-CC status. Following discussions about the differences in these status, requested Full Code status. Advanced Care Planning Face to Face Time: 16 minutes. Charges/Coding Visit Charges Inpatient E&M: 60337 Init Hosp L3 Procedures Hospitalists Procedures: 17529 Advncd Care Plan 30 Min 12/10/242224 <Electronically signed by Samantha Gary MD> Cosigner Signature (if applicable): CC: Dr. Samantha Gary MD; Dr. Abdulaziz Ackerman MD~ Signed [facility] Work Phone: 1(528) 205-863407-22-2025 Evaluation note* Diagnosis Onset Date Resolution Status Admit Date Cardiac LV ejection fraction of 20-34% acute December 10, 2024 9:33pm Congestive heart failure chronic December 10, 2024 9:33pm Acute exacerbation of CHF (congestive heart failure) inactive December 10, 2024 9:33pm Atrial fibrillation inactive Mary Ellen 22nd, 2025 9:33pm Essential hypertension inactive Ju ly 22nd, 2025 9:33pm Thoracoabdominal aortic aneurysm (TAAA) inactive December 10, 2024 9:33pm Atrial flutter acute December 12:59pm Implantable cardioverter-defibrillator (ICD) in situ acute December 23, 2024 12:59pm Heart failure with preserved ejection fraction chronic December 23 12:59pm Atrial flutter acute December 12:59pm Anxiety and depression chronic Au yoshi 2024 12:59pm Bilateral knee pain chronic Augus t 2024 12:59pm Borderline type 2 diabetes mellitus chronic January 13 12:59pm Congestive heart failure chronic January 13, 2025 12:59pm Insomnia chronic January 13 12:59pm Implantable cardioverter-defibrillator (ICD) in situ acute January 23 12:40pm Congestive heart failure chronic January 23, 2025 12:40pm Atrial flutter acute January 23, 2025 12:40pm Cardiac LV ejection fraction of 20-34% acute January 23 12:40pm Hypersomnolence acute January 23, 2025 12:40pm Implantable cardioverter-defibrillator (ICD) in situ acute January 23 12:40pm Congestive heart failure chronic January 23, 2025 12:40pm Hyperlipidemia chronic January 23, 2025 12:40pm Shortness of breath chronic 2024 12:40pm Atrial flutter acute February 14, 2025 8:55am Cardiac LV ejection fraction of 20-34% acute February 14, 2025 8:55am Hypersomnolence acute February 14, 2025 8:55am Implantable cardioverter-defibrillator (ICD) in situ acute February 14, 2025 8:55am Congestive heart failure chronic February 14, 2025 8:55am Hyperlipidemia chronic February 14, 2025 8:55am GI bleed resolved March 17, 2025 6:51pm ABLA (acute blood loss anemia) inact jose March 17, 2025 6:51pm [facility] [email or web address] Work Phone: 1(543) 888-368107-22-2025 History and physical note Author Samantha Gary [facility] Note Date/Time December 10, 2024 10:2 5pm [facility] Medical Records Department [address] [place] [address] H&P Exam - Hospitalist 12/10/242 MR#: [id number] Acct: [id number] Name: CLARIBEL ALLISON Rep #:[id number] : 1955 69 From: Samantha Gary MD PCP: Dr. Abdulaziz Ackerman MD Status:R EG ER Location: ED HPI - General General Date of Admission: 12/10/24 Date of Service: 12/10/24 Chief Complaint: Dyspnea. HPI Narrative The patient is a 69 y/o F w/ PMHx: Obesity, HFrEF, HTN, HLD, PAF/Flutter, Formertobacco use, Anxiety and Depression, GERD, Prediabetes (07/24/24 Hgb 6.1%), Chronic microcytic anemia, CKD stage II per GFR trending, most recent discharge 08/24/2024 following evaluation and treatment of heart failure with reduced EF, PAF with RVR with intermittent bradycardia and pauses with plan at that discharge for possible future pacemaker for tachybradycardia syndrome in order to be able to initiate beta-latisha in the setting of low EF with plan at discharge for Holter monitor/event monitor with no follow-up with cardiology noted in [employer] system with patient instructed to follow-up within [address] Dominguez per discharge instructions for now presents to the [facility] ED on 12/10/24 with history of dyspnea ongoing over the last several days noting that she ran out of money and was unable to purchase her Lasix therapy with onset chest discomfort starting on a.m. on day of presentation resolving prior to ED presentation. Workup in the ED included T98.5, heart 123, BP 155/83, respiratoryrate 20, 98% on 2 L nasal cannula with most recent repeat vitals heart rate 114,BP 125/94, respiratory rate 20, 100% on 2 L nasal cannula, BMP with BUN/creatinine 15/0.76, GFR 86, CBC with WBC 7.8, hemonine 0.9, MCV 72, [id number] without marked shift, NT proBNP 6070, chest x-ray with mild edema in the setting of cardiomegaly, troponin initial 34 with repeat delta 38, INR 1.8, EKG with A-fib with rate 124 with occasional PVC with QTc 491. In the ED patient administered Lasix 60 mg IV x 1, Toradol 50 mg IV x 1, metoprolol 5 mg IV x 1, morphine 2 mg IV x 1. 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 Q 8h PRN 11/18/24 Unknown Rx fever or pain 30 days #30 tabs atorvastatin 20 mg tablet 20 mg PO QHS #90 tabs Unknown Rx carvedilol 3.125 mg tablet 3.125 mg PO BIDCM 1 month # 60 tabs 11/18/24 Unknown Rx furosemide 40 mg tablet 40 mg PO BIDLX 30 days #60 t abs 11/18/24 Unknown Rx lidocaine HCl 4 % lotion 1 applic topical BID-QID PRN pain 11/18/24 Unknown Rx #118 mL lisinopril 20 mg tablet 20 mg PO DAILY 30 days #30 t abs 11/18/24 Unknown Rx potassium chloride 20 mEq 20 meq PO DAILY SUPPLEMENT # 30 tabs 11/18/24 Unknown Rx tablet,extended release warfarin 5 mg tablet 5 mg PO QDAY #60 tabs Unknown Rx mupirocin 2 % topical ointment 1 applic topical BID #2 2 grams 11/25/24 Unknown Rx (Centany) sulfamethoxazole 800 1 tab PO BID #14 tabs Unknown Rx mg-trimethoprim 160 mg tablet (Bactrim DS) Allergy/AdvReac Type Severity Reaction Status Date / Time latex Allergy Mild rash Verified 12/10/24 18:09 trazodone Allergy Mild Tingling Verified 12/10/24 18:09 coconut Allergy Unknown PT UNABLE Verified 12/10/24 18:09 TO RESPOND-NEEDS F/U Fish Containing Products Allergy Unknown PT UNABLE Verified 12/10/24 18:09 TO RESPOND-NEEDS F/U propoxyphene (From Allergy Hives Verified 12/10/24 18:09 Darvocet-N) acetaminophen (From AdvReac Intermediate Nausea/Vom/ Verified 12/10/24 18:09 Darvocet-N) Diarrhea Family History (Updated 12/10/24 @ 22:[address] Samantha Gary MD) Mother Anxiety Arthritis Depression Hypertension Father Anxiety Arthritis Depression Hypertension Other Thyroid disorder Surgical History H/O tubal ligation History of cholecystectomy H/O elbow surgery Social History housing: house Smoking Status: Former smoker alcohol intake: never substance use type: does not use what type of physical activity do you participate in: walking frequency: 5-6 times per week ROS ROS Narrative Admission Review of Systems: CONSTITUTIONAL: No weight loss, fever, chills, +weakness or fatigue. HEENT: Eyes: No visual loss, blurred vision, double vision or yellow sclerae. Ears, Nose, Throat: No hearing loss, sneezing, congestion, runny nose or sore throat. SKIN: No rash or itching, lesions, wounds. CARDIOVASCULAR: + Chest pain, edema, orthopnea. No palpitations, syncopal events. RESPIRATORY: + Dyspnea. No cough or sputum, wheezing, hemoptysis. GASTROINTESTINAL: No anorexia, nausea, vomiting or diarrhea, abdominal pain, melena, BRBPR. GENITOURINARY: No dysuria, frequency, urgency or retention. NEUROLOGICAL: No headache, dizziness, syncope, paralysis, ataxia, numbness or tingling in the extremities, focal weakness, change in bowel or bladder control,seizure. MUSCULOSKELETAL: + muscle, back pain, joint pain or stiffness. HEMATOLOGIC: + Chronic anemia, easy bleeding/bruising. LYMPHATICS: No enlarged nodes. No history of splenectomy. PSYCHIATRIC: + History of anxiety and depression. ENDOCRINOLOGIC: No reports of sweating, cold or heat intolerance. No polyuria orpolydipsia. ALLERGIES: + History of hives. Vital Signs Vital Signs Vital Signs: 12/10/24 18:09 12/10/24 18:15 12/10/24 19:08 Temperature 98.5 F Temperature Source Oral Pulse Rate 123 H 114 H Respiratory Rate 20 H 20 H Respiratory Effort Short of Breath Respiratory Depth Shallow Respiratory Pattern Tachypnea Blood Pressure 155/83 H 125/94 H Blood Pressure Mean 107 104 Pulse Ox 98 100 Oxygen Delivery Method Nasal Cannula Nasal Cannula Oxygen Flow Rate (L/min) 2 2 12/10/24 20:00 12/10/24 21:00 Temperature Temperature Source Pulse Rate 84 96 Respiratory Rate 30 H 30 H Respiratory Effort Respiratory Depth Respiratory Pattern Blood Pressure 113/87 H 114/64 Blood Pressure Mean 95 80 Pulse Ox 91 98 Oxygen Delivery Method Room Air Room Air Oxygen Flow Rate (L/min) Weight Weight: 187 lb Body Mass Index (BMI) 31.1 Physical Exam Narrative Physical Examination: General: Awake, alert, oriented x 3 and cooperative, seated upright in the ED bed, fatigued. Skin: Normal color, normal turgor, no icterus, no cyanosis except occasional stage ecchymoses, abrasion, bilateral lower extremity venous stasis skin changes. HEENT: AT/NC, EOMI, PERRLA, MMM, no carotid bruits, + JVD noted. Lungs: Diminished, greater bases, mildly increased respiratory rate but no distress, mild rales bilateral bases, no rhonchi or wheezing. Heart: Irregular, rate improved; no gallop, rub audible. Abdomen: Soft, obese, NTTP, ND, distant normal BS, no appreciated HSM. Extremities: No cyanosis, no clubbing, pedal to knee 2-3+ pitting edema. Neurological: Patient awake, alert, oriented as noted, cognitive function intact; pupils equally reactive to light and accommodation, cranial nerves grossly normal, moving all 4 extremities, no focal deficits, strength moderatelyto severely global decreased Psychiatric: Affect appears flat, fatigued, no acute evidence of depressive or anxiety feelings but does have underlying history. Results Lab / Micro Data 12/10/24 18:13 12/10/24 18:13 Labs: Laboratory Results - last 24 hr 12/10/24 18:13: WBC 7.8, RBC 4.93, Hgb 9.9 L, Hct 35.5 L, MCV 72.0 L, MCH 20.1 L, MCHC 27.9 L, RDW Std Deviation 56.9 H, RDW Coeff of Ele 22.5 H, Plt Count 344,MPV 9.7, Immature Gran % (Auto) 0.500, Neut % (Auto) 71.0 H, Lymph % (Auto) 18.5L, [place] % (Auto) 8.0, Eos % (Auto) 1.1, Baso % (Auto) 0.9, Absolute Neuts (auto)5.6, Absolute Lymphs (auto) 1.45, Nucleated RBC % 0.4, Differential Comment SCANNED, Platelet Estimate ADEQUATE, Polychromasia 1+, Anisocytosis 2+, PT 21.2 H, INR 1.8, Sodium 139, Potassium 4.0, Chloride 105, Carbon Dioxide 21.9, Anion Gap 12, BUN 15, Creatinine 0.76, Estim Creat Clear Calc 73.39, Est GFR (MDRD) Non-Af 86, BUN/Creatinine Ratio 19.0, Glucose 86, Calcium 8.5, Troponin T High Sens 34 H, NT pro BNP II 6070 H 12/10/24 20:16: Troponin T Hi Sens 2 Hr 38 H Imaging Radiology Impression Chest X-Ray 12/10/24 19:15 IMPRESSION: Probable mild edema in the setting of cardiomegaly. Reading Location: [id number] Assessment & Plan Assessment/Plan (1) Congestive heart failure: (2) Atrial fibrillation: PLAN: Plan The patient is a 69 y/o F w/ PMHx: Obesity, HFrEF, HTN, HLD, PAF/Flutter, Formertobacco use, Anxiety and Depression, GERD, Prediabetes (07/24/24 Hgb 6.1%), Chronic microcytic anemia, CKD stage II per GFR trending, most recent discharge 08/24/2024 following evaluation and treatment of heart failure with reduced EF, PAF with RVR with intermittent bradycardia and pauses with plan at that discharge for possible future pacemaker for tachybradycardia syndrome in order to be able to initiate beta-latisha in the setting of low EF with plan at discharge for Holter monitor/event monitor with no follow-up with cardiology noted in [employer] system with patient instructed to follow-up within [address] Dominguez per discharge instructions for now presents to the [facility] ED on 12/10/24 with history of dyspnea ongoing over the last several days noting that she ran out of money and was unable to purchase her Lasix therapy with onset chest discomfort starting on a.m. on day of presentation resolving prior to ED presentation. #1. Acutely Decompensated HFrEF Exacerbation with associated #2 with mildly elevated troponins of unclear significance likely secondary to demand ischemia: CXR obtained in the ED w/ mild edema in the setting of cardiomegaly. Patient administered IV lasix in the ED, will admit to PCU, maintain on cardiac telemetry obtain cardiac enzyme series, obtain serial EKGs, continue IV lasix diuresis, monitor I/Os, maintain on intake restriction, continue medical therapy, obtain TSH and magnesium level. Most recent ECHO noted 08/21/2024 with normal LV size, LVEF 20%, severe global hypokinesis LV, moderately enlarged LA, mild to moderate MVI, mildly dilated aortic root, RA mildly enlarged thus will defer repeat. #2. Paroxsymal atrial fibrillation/paroxysmal atrial flutter w/ RVR with prolonged QTc 491: EKG in ED w/ atrial fibrillation w/ RVR. Patient administeredIV Lopressor in ED. Will maintain on telemetry, obtain cardiac enzyme serial set, obtain magnesium level, recent echocardiogram as noted above thus will defer repeat, will obtain TSH level. Will continue Coumadin with INR trending with an additional dose x 1 given subtherapeutic INR upon presentation. Will continue patient low-dose Coreg. #3. Concern for recurrent cardiac pauses, possibly tachybradycardia syndrome: Recent presentation with concerns, noted plan at most recent discharge for outpatient Holter monitor/event monitor and cardiology follow-up but from records does not appear that patient followed up, TSH, magnesium requested, maintain on telemetry. #4. Hypertension: Continue home regimen including lisinopril, Coreg low-dose, IV Cardizem as noted, IV Lasix, PRN hydralazine. #5. Hyperlipidemia: Continue home statin regimen. AM FLP. #6. Chronic microcytic anemia: Admission hemoglobin 9.9, MCV 72, baseline hemoglobin 10, continue to trend. #7. Chronic Kidney Disease Stage II per GFR trending: Admission BUN/Cr 15/0.76,GFR 86, baseline renal function 0.6-1.1, repeat BMP in AM. #8. Anxiety and depression: Per current list does not appear to be on regimen, encourage continued outpatient follow-up and evaluation with PCP as previously arranged. #9. Prediabetes: Per current list patient is not on regimen, will maintain on ADA diet, accu checks w/ ISS. #10. Former tobacco use: Encourage continued tobacco cessation. #11. Obesity: Weight loss and lifestyle changes encouraged. #12. GERD: Per current list not on regimen, will have Mylanta if necessary. #13. DVT prophylaxis: Will continue Coumadin with INR trending with an additional dose x 1 given subtherapeutic INR. #14. CODE status: Patient LAURIE is per sister she notes and living will is currently in place. Discussed CODE status at length including difference betweenFULL code, DNR-CCA and DNR-CC status. Following discussions about the differences in these status, requested Full Code status. Advanced Care Planning Face to Face Time: 16 minutes. Charges/Coding Visit Charges Inpatient E&M: 97571 Init Hosp L3 Procedures Hospitalists Procedures: 80668 Advncd Care Plan 30 Min 12/10/242224 <Electronically signed by Samantha Gary MD> Cosigner Signature (if applicable): CC: Dr. Samantha Gary MD; Dr. Abdulaziz Ackerman MD~ Signed [facility] Work Phone: 1(325) 495-561707-22-2025 Radiology Diagnostic study [facility]07-22-2025 Discharge summary Author Devyn Houston [facility] Note Date/Time December 10, 2024 10:3 6pm [facility] Medical Records Department [address] [place] [address] Emergency Department Summary 12/10/24 MR#: [id number] Acct: [id number] Name: CLARIBEL ALLISON Rep #:[id number] : 1955 69 From: Devyn Lim PCP: Dr. Abdulaziz Ackerman MD Status:A DM IN Location: [place] [address] HPI History of Present Illness Chief Complaint: Shortness of Breath [facility] Medical History Ulcer of left lower [...] effort Acute hypokalemia Chest pain Non-ST elevation NV (NSTEMI) Atrial flutter Borderline type 2 diabetes mellitus GERD (gastroesophageal reflux disease) Acute low back pain Elevated random blood glucose level Anxiety and depression Menopausal disorder Melanoma Preoperative clearance Flu vaccine need Current use of halfway 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 Obesity Elevated troponin (08/09/20) Hyperlipidemia Nicotine dependence History of pulmonary embolus (PE) (08/10/20) Essential hypertension Wound of left lower extremity Insomnia Change in skin mole Heart failure with preserved ejection fraction Shortness of breath Osteoarthritis of left knee Chronic pain of left knee Tobacco use Arthritis Acute hypoxemic respiratory failure (08/09/20) Home Medications ?Medication ?Instructions ?Recorded ?Last Taken ?Type acetaminophen 500 mg tablet 1,000 mg (2 x 500 mg) PO . Q 8h PRN 11/18/24 Unknown Rx fever or pain 30 days #30 tabs atorvastatin 20 mg tablet 20 mg PO QHS #90 tabs Unknown Rx carvedilol 3.125 mg tablet 3.125 mg PO BIDCM 1 month # 60 tabs 11/18/24 Unknown Rx furosemide 40 mg tablet 40 mg PO BIDLX 30 days #60 t abs 11/18/24 Unknown Rx lidocaine HCl 4 % lotion 1 applic topical BID-QID PRN pain 11/18/24 Unknown Rx #118 mL lisinopril 20 mg tablet 20 mg PO DAILY 30 days #30 t abs 11/18/24 Unknown Rx potassium chloride 20 mEq 20 meq PO DAILY SUPPLEMENT # 30 tabs 11/18/24 Unknown Rx tablet,extended release warfarin 5 mg tablet 5 mg PO QDAY #60 tabs Unknown Rx mupirocin 2 % topical ointment 1 applic topical BID #2 2 grams 11/25/24 Unknown Rx (Centany) sulfamethoxazole 800 1 tab PO BID #14 tabs Unknown Rx mg-trimethoprim 160 mg tablet (Bactrim DS) Allergy/AdvReac Type Severity Reaction Status Date / Time latex Allergy Mild rash Verified 12/10/24 18:09 trazodone Allergy Mild Tingling Verified 12/10/24 18:09 coconut Allergy Unknown PT UNABLE Verified 12/10/24 18:09 TO RESPOND-NEEDS F/U Fish Containing Products Allergy Unknown PT UNABLE Verified 12/10/24 18:09 TO RESPOND-NEEDS F/U propoxyphene (From Allergy Hives Verified 12/10/24 18:09 Darvocet-N) acetaminophen (From AdvReac Intermediate Nausea/Vom/ Verified 12/10/24 18:09 Darvocet-N) Diarrhea Family History Other Anxiety Arthritis Depression Hypertension Thyroid disorder Surgical History H/O tubal ligation History of cholecystectomy H/O elbow surgery Social History housing: house Smoking Status: Former smoker alcohol intake: never substance use type: does not use what type of physical activity do you participate in: walking frequency: 5-6 times per week EXAM Physical Exam Const Vital Signs: 12/10/24 18:09 12/10/24 18:15 12/10/24 19:08 Temperature 98.5 F Temperature Source Oral Pulse Rate 123 H 114 H Respiratory Rate 20 H 20 H Respiratory Effort Short of Breath Respiratory Depth Shallow Respiratory Pattern Tachypnea Blood Pressure 155/83 H 125/94 H Blood Pressure Mean 107 104 Pulse Ox 98 100 Oxygen Delivery Method Nasal Cannula Nasal Cannula Oxygen Flow Rate (L/min) 2 2 12/10/24 20:00 12/10/24 21:00 Temperature Temperature Source Pulse Rate 84 96 Respiratory Rate 30 H 30 H Respiratory Effort Respiratory Depth Respiratory Pattern Blood Pressure 113/87 H 114/64 Blood Pressure Mean 95 80 Pulse Ox 91 98 Oxygen Delivery Method Room Air Room Air Oxygen Flow Rate (L/min) [facility] MDM Narrative Medical decision making narrative: HISTORY OF PRESENT ILLNESS: Chief complaint: Shortness of breath, chest pain 69-year-old female history of atrial fibrillation, type 2 diabetes, CHF, thoracic abdominal aneurysm, PE on warfarin presents with 1 day of chest pain and shortness of breath. Notes that she typically shortness of breath secondaryto heart failure and COPD however has been worse over the last several days. She notes lower extremity edema, orthopnea. Notes she ran out of money and cannot buy Lasix so she is been out of her Lasix for last several days. She notes chest pain that began this morning. Notes it resolved prior to arrival. She does note compliance with her home warfarin. She denies hemoptysis, unilateral leg swelling, recent surgery, chemotherapy or estrogen use. She denies ripping or tearing pain. She denies cough fever or chills or sick contacts. REVIEW OF SYSTEMS: Pertinent positives: Chest pain, shortness of breath, leg swelling Pertinent negatives: Syncope, focal weakness PHYSICAL EXAM: Nursing triage notes reviewed, Vital signs reviewed Constitutional: please see mdm HENT: MMM Eyes: Pupils equal round and reactive to light, Extraocular muscles intact Neck: No stridor, no JVD, full neck ROM Lungs: Clear to auscultation, slight increased work of breathing, bilateral rales Heart: Regular rate and rhythm, No murmurs, No rubs and No gallops, 2+ distal pulses (radial, femoral, posterior tibial) in all extremities Abdomen: Soft, there is no tenderness, rigidity, rebound or guarding, no obviousperitoneal signs, no palpable pulsatile abdominal masses, no auscultated abdominal bruit : No CVAT Extremities: 1-2+ pitting edema bilateral lower extremities Neuro: No new focal neurological deficits, cranial nerves II through XII intact,5/5 strength in all present extremities. Intact sensation to light touch in all present extremities, 2+ reflexes bilateral patella tendons. Skin: No rash or lesions noted MEDICAL DECISION MAKING: Chief Complaint: please see [facility] External records reviewed: Last hospitalization in August for acute exacerbation of CHF Factors affecting care: As per HPI Social determinants of health: History obtained from others: EMS Consults: Internal medicine (Dr. Gary) [facility] Narrative: The patient was initially hypertensive with a blood pressure 155/83, tachycardicwith heart rate of 123, tachypneic with respirate of 20, she was saturating 98% on room air on my exam. Lungs with rales bilaterally. 1+ pitting edema bilateral lower extremities noted. Clinical exam most consistent with CHF exacerbation likely exacerbated by A-fib/flutter with RVR I considered the following differential diagnosis: CHF exacerbation, arrhythmia,anemia, ACS, PE, electrolyte disturbance I obtained a broad lab and imaging workup to further elucidate to further determine if the patient was suffering from a life-threatening etiology. Initially treat the patient with IV metoprolol to slow her initial fast rate. ALL IMAGES (IF OBTAINED) HAVE BEEN PERSONALLY REVIEWED AND INTERPRETED BY MYSELF. Initial EKG with A-fib/a flutter rate of 124, right axis deviation, occasional PVCs, prolonged QTc at 491, no STEMI CBC with no leukocytosis, noted baseline mild anemia, no thrombocytopenia No coagulopathy noted BMP without significant [place] abnormalities, no acute kidney Initial troponin indeterminate, delta troponin also indeterminate will wait for third Initial BNP elevated consistent with CHF Chest x-ray was read reviewed myself showed evidence of pulmonary edema consistent with CHF exacerbation The synthesis of the patient's history, physical exam, labs images suggest likely CHF exacerbation. This was treated 60 mg IV Lasix. On reevaluation patient heart rate improved to 96 blood pressure was 114/64 she remained tachypneic. She is appropriate for admit to PCU. Discussed hospitalist Dr. Gary The patient and/or family, caregivers express understanding. The patient and/orfamily, caregivers agrees with the plan. Shared decision making: I will have a discussion with the patient and or visitors regarding risk/benefits of further testing or admission. They will be made aware of of the risk/benefits inherent in this decision they will be given the opportunity to voice understanding. Total critical care time today provided was at least 0 minutes. This excludes separately billable procedures. Critical care time (if documented) is secondary to the patient having high probability of clinically significant/life threatening deterioration in the patient's condition which required my urgent intervention. Impression: 1. Dyspnea 2. History of CHF 3. A-fib/a flutter with RVR Dispo: Admit to PCU This note was generated with [employer] dictation software. It may contain incorrectwords, spelling, and punctuation that were not noted in review of the chart prior to signing. Lab Data Labs: Laboratory Results - last 24 hr 12/10/24 12/10/24 18:13 20:16 WBC 7.8 RBC 4.93 Hgb 9.9 L Hct 35.5 L MCV 72.0 L MCH 20.1 L MCHC 27.9 L RDW Std Deviation 56.9 H RDW Coeff of Ele 22.5 H Plt Count 344 MPV 9.7 Immature Gran % (Auto) 0.500 Neut % (Auto) 71.0 H Lymph % (Auto) 18.[address] [place] % (Auto) 8.0 Eos % (Auto) 1.1 Baso % (Auto) 0.9 Absolute Neuts (auto) 5.6 Absolute Lymphs (auto) 1.45 Nucleated RBC % 0.4 Differential Comment SCANNED Platelet Estimate ADEQUATE Polychromasia 1+ Anisocytosis 2+ PT 21.2 H INR 1.8 Sodium 139 Potassium 4.0 Chloride 105 Carbon Dioxide 21.9 Anion Gap 12 BUN 15 Creatinine 0.76 Estim Creat Clear Calc 73.39 Est GFR (MDRD) Non-Af 86 BUN/Creatinine Ratio 19.0 Glucose 86 Calcium 8.5 Troponin T High Sens 34 H Troponin T Hi Sens 2 Hr 38 H NT pro BNP II 6070 H Radiography Diagnostic Testing: Clinical Impression(s) from Imaging Studies Chest X-Ray 12/10/24 19:15 IMPRESSION: Probable mild edema in the setting of cardiomegaly. Reading Location: [facility] Discharge Plan Triage Chief Complaint: Shortness of Breath ED Provider: Devyn Houston Dx/Rx/DC Orders Prescriptions: No Action sulfamethoxazole-trimethoprim [Bactrim DS] 800-160 mg tablet 1 tab PO BID Qty: 14 0RF mupirocin [Centany] 2 % ointment 1 applic topical BID Qty: 22 0RF acetaminophen 500 mg tablet 1,000 mg PO .Q 8h PRN (Reason: fever or pain) 30 Days Qty: 30 0RF atorvastatin 20 mg tablet 20 mg PO QHS Qty: 90 2RF carvedilol 3.125 mg tablet 3.125 mg PO BIDCM 30 Days Qty: 60 2RF Rx Instructions: Hold for heart less than 50 or systolic blood pressure less than 100 mmHg. furosemide 40 mg tablet 40 mg PO BIDLX 30 Days Qty: 60 2RF lidocaine HCl 4 % lotion 1 applic topical BID-QID PRN (Reason: pain) Qty: 118 2RF lisinopril 20 mg tablet 20 mg PO DAILY 30 Days Qty: 30 2RF potassium chloride 20 mEq tablet extended release 20 meq PO DAILY Qty: 30 1RF warfarin 5 mg tablet 5 mg PO QDAY Qty: 60 1RF Rx Instructions: Take 5 mg daily for 6 days of the week and 7.5mg on one day of the week Primary Care Provider: Abdulaziz Ackerman Referrals: Abdulaziz Ackerman MD [Primary Care Provider] - Print Language: Mohawk What to do if you have Problems For any increased pain, shortness of breath, bleeding, nausea or vomiting, chestpain, or any unexpected problems, contact your Primary Care Provider. Call [facility] ([phone]) or report to the closest Emergency Room. Call 911 if necessary. 12/10/242235 <Electronically signed by Devyn Houston DO> Cosigner Signature (if applicable): CC: Dr. Abdulaziz Ackerman MD ~ Signed [facility] Work Phone: 1(716) 453-723306-06-2025 Evaluation note* Diagnosis Onset Date Resolution Status Admit Date Bilateral knee pain chronic October 25, 2024 8:04am Osteoarthritis of left knee chronic October 25, 2024 8:04am Insect bite acute November 25 12:28pm Cardiac LV ejection fraction of 20-34% acute December 10, 2024 9:33pm Congestive heart failure chronic December 10, 2024 9:33pm Acute exacerbation of CHF (congestive heart failure) inactive December 10, 2024 9:33pm Atrial fibrillation inactive December 10, 2024 9:33pm Essential hypertension inactive 2024 9:33pm Thoracoabdominal aortic aneurysm (TAAA) inactive December 10, 2024 9:33pm Atrial flutter acute December 12:59pm Implantable cardioverter-defibrillator (ICD) in situ acute December 23, 2024 12:59pm Heart failure with preserved ejection fraction chronic December 23 12:59pm Atrial flutter acute December 12:59pm Anxiety and depression chronic 2024 12:59pm Bilateral knee pain chronic t 2024 12:59pm Borderline type 2 diabetes mellitus chronic January 13 12:59pm Congestive heart failure chronic January 13, 2025 12:59pm Insomnia chronic January 13, 12:59pm Implantable cardioverter-defibrillator (ICD) in situ acute January 23 12:40pm Congestive heart failure chronic January 23, 2025 12:40pm Atrial flutter acute January 23, 2025 12:40pm Cardiac LV ejection fraction of 20-34% acute January 23 12:40pm Hypersomnolence acute January 23, 2025 12:40pm Implantable cardioverter-defibrillator (ICD) in situ acute January 23 12:40pm Congestive heart failure chronic January 23, 2025 12:40pm Hyperlipidemia chronic January 23, 2025 12:40pm Shortness of breath chronic Sept 2024 12:40pm [facility] Work Phone: [phone] 244-793206-06-2025 Evaluation note* Diagnosis Onset Date Resolution Status Admit Date Bilateral knee pain chronic October 25, 2024 8:04am Osteoarthritis of left knee chronic October 25, 2024 8:04am Insect bite acute November 25 12:28pm Cardiac LV ejection fraction of 20-34% acute December 10, 2024 9:33pm Congestive heart failure chronic December 10, 2024 9:33pm Acute exacerbation of CHF (congestive heart failure) inactive December 10, 2024 9:33pm Atrial fibrillation inactive December 10, 2024 9:33pm Essential hypertension inactive 2024 9:33pm Thoracoabdominal aortic aneurysm (TAAA) inactive December 10, 2024 9:33pm Atrial flutter acute December 12:59pm Implantable cardioverter-defibrillator (ICD) in situ acute December 23, 2024 12:59pm Heart failure with preserved ejection fraction chronic December 23 12:59pm Atrial flutter acute December 12:59pm Anxiety and depression chronic Au 2024 12:59pm Bilateral knee pain chronic Decus t 2024 12:59pm Borderline type 2 diabetes mellitus chronic January 13 12:59pm Congestive heart failure chronic January 13, 2025 12:59pm Insomnia chronic January 13, 025 12:59pm Implantable cardioverter-defibrillator (ICD) in situ acute January 23 025 12:40pm Congestive heart failure chronic January 23, 2025 12:40pm Atrial flutter acute January 23, 2025 12:40pm Cardiac LV ejection fraction of 20-34% acute January 23, 025 12:40pm Hypersomnolence acute January 23, 2025 12:40pm Implantable cardioverter-defibrillator (ICD) in situ acute January 23, 025 12:40pm Congestive heart failure chronic January 23, 2025 12:40pm Hyperlipidemia chronic January 23, 2025 12:40pm Shortness of breath chronic 2024 12:40pm Atrial flutter acute February 14, 2025 8:55am Cardiac LV ejection fraction of 20-34% acute February 14, 2025 8:55am Hypersomnolence acute February 14, 2025 8:55am Implantable cardioverter-defibrillator (ICD) in situ acute February 14, 2025 8:55am Congestive heart failure chronic February 14, 2025 8:55am Hyperlipidemia chronic February 14, 2025 8:55am [facility] [email or web address] Work Phone: 1([phone]) 680-404705-09-2025 Evaluation note* Diagnosis Onset Date Resolution Status Admit Date Insomnia chronic September 27, 2024 8:53am Ulcer of left lower extremit y with fat layer exposed chronic September 27, 2024 8:53am Atrial fibrillation inactive September 272024 8:53am Congestive heart failure inactive September 27, 2024 8:53am Essential hypertension inactive 2024 8:53am Bilateral knee pain acute October 25, 2024 8:04am Osteoarthritis of left knee chronic October 25, 2024 8:04am Insect bite acute November 25 12:28pm Acute exacerbation of CHF (congestive heart failure) inactive December 10, 2024 9:33pm Atrial fibrillation inactive December 10, 2024 9:33pm Cardiac LV ejection fraction of 20-34% inactive December 10, 2024 9:33pm Congestive heart failure inactive December 10, 2024 9:33pm Essential hypertension inactive 2024 9:33pm Thoracoabdominal aortic aneu rysm (TAAA) inactive December 10, 2024 9:33pm Atrial flutter acute December 12:59pm Implantable cardioverter-defibrillator (ICD) in situ acute December 23, 2024 12:59pm Heart failure with preserved ejection fraction chronic December 23 12:59pm [email or web address] [facility] Work Phone: 1(251) 533-327705-09-2025 Evaluation note* Diagnosis Onset Date Resolution Status Admit Date Congestive heart failure chronic September 27, 2024 8:53am Insomnia chronic September 27, 2024 8:53am Ulcer of left lower extremit y with fat layer exposed chronic September 27, 2024 8:53am Atrial fibrillation inactive September 272024 8:53am Essential hypertension inactive 2024 8:53am Bilateral knee pain chronic October 25, 2024 8:04am Osteoarthritis of left knee chronic October 25, 2024 8:04am Insect bite acute November 25 12:28pm Congestive heart failure chronic December 10, 2024 9:33pm Acute exacerbation of CHF (congestive heart failure) inactive December 10, 2024 9:33pm Atrial fibrillation inactive December 10, 2024 9:33pm Cardiac LV ejection fraction of 20-34% inactive December 10, 2024 9:33pm Essential hypertension inactive 2024 9:33pm Thoracoabdominal aortic aneu rysm (TAAA) inactive December 10, 2024 9:33pm Atrial flutter acute December 12:59pm Implantable cardioverter-defibrillator (ICD) in situ acute December 23, 2024 12:59pm Heart failure with preserved ejection fraction chronic December 23 12:59pm Atrial flutter acute December 12:59pm Anxiety and depression chronic 2024 12:59pm Bilateral knee pain chronic 2024 12:59pm Borderline type 2 diabetes mellitus chronic January 13 12:59pm Congestive heart failure chronic January 13, 2025 12:59pm Insomnia chronic January 13, 2 025 12:59pm [facility] [email or web address] [facility] Work Phone: [phone]) 453-937905-09-2025 Evaluation note* Diagnosis Onset Date Resolution Status Admit Date Congestive heart failure chronic September 27, 2024 8:53am Insomnia chronic September 27, 2024 8:53am Ulcer of left lower extremit y with fat layer exposed chronic September 27, 2024 8:53am Atrial fibrillation inactive September 272024 8:53am Essential hypertension inactive Ma 2024 8:53am Bilateral knee pain chronic October 25, 2024 8:04am Osteoarthritis of left knee chronic October 25, 2024 8:04am Insect bite acute November 25 12:28pm Cardiac LV ejection fraction of 20-34% acute December 10, 2024 9:33pm Congestive heart failure chronic December 10, 2024 9:33pm Acute exacerbation of CHF (congestive heart failure) inactive December 10, 2024 9:33pm Atrial fibrillation inactive December 10, 2024 9:33pm Essential hypertension inactive 2024 9:33pm Thoracoabdominal aortic aneurysm (TAAA) inactive December 10, 2024 9:33pm Atrial flutter acute December 12:59pm Implantable cardioverter-defibrillator (ICD) in situ acute December 23, 2024 12:59pm Heart failure with preserved ejection fraction chronic December 23 12:59pm Atrial flutter acute December 12:59pm Anxiety and depression chronic 2024 12:59pm Bilateral knee pain chronic 2024 12:59pm Borderline type 2 diabetes mellitus chronic January 13 12:59pm Congestive heart failure chronic January 13, 2025 12:59pm Insomnia chronic January 13, 12:59pm Implantable cardioverter-defibrillator (ICD) in situ acute January 23, 025 12:40pm Congestive heart failure chronic January 23, 2025 12:40pm Atrial flutter acute January 23, 2025 12:40pm Cardiac LV ejection fraction of 20-34% acute January 23, 025 12:40pm Hypersomnolence acute January 23, 2025 12:40pm Implantable cardioverter-defibrillator (ICD) in situ acute January 23, 025 12:40pm Congestive heart failure chronic January 23, 2025 12:40pm Hyperlipidemia chronic January 23, 2025 12:40pm Shortness of breath chronic 2024 12:40pm [facility] Work Phone: 1(676) 329-178404-18-2025 Evaluation note* Diagnosis Onset Date Resolution Status Admit Date Diastolic heart failure chronic A pril 2024 8:35am Dyspnea on exertion chronic September 06, 2024 8:35am Lower extremity edema chronic Apr il 2024 8:35am Ulcer of right lower extremity chron ic September 06, 2024 8:35am Atrial fibrillation inactive September 06, 2024 8:35am Essential hypertension inactive Ap ril 2024 8:35am Insomnia chronic September 27, 2024 8:53am Ulcer of left lower extremit y with fat layer exposed chronic September 27, 2024 8:53am Atrial fibrillation inactive September 272024 8:53am Congestive heart failure inactive September 27, 2024 8:53am Essential hypertension inactive Ma y 2024 8:53am Bilateral knee pain acute October 25, 2024 8:04am Osteoarthritis of left knee chronic October 25, 2024 8:04am Insect bite acute November 25 12:28pm Acute exacerbation of CHF (congestive heart failure) inactive December 10, 2024 9:33pm Atrial fibrillation inactive December 10, 2024 9:33pm Cardiac LV ejection fraction of 20-34% inactive December 10, 2024 9:33pm Congestive heart failure inactive December 10, 2024 9:33pm Essential hypertension inactive Ju ly 2024 9:33pm Thoracoabdominal aortic aneu rysm (TAAA) inactive December 10, 2024 9:33pm Atrial flutter acute December 12:59pm Implantable cardioverter-defibrillator (ICD) in situ acute December 23, 2024 12:59pm Heart failure with preserved ejection fraction chronic December 23 12:59pm [facility] Work Phone: [phone]) 292-501404-06-2025 Discharge summary [facility] Medical Records Department [address] [place] [id number] Discharge Summary 08/25/24 1059 MR#: [id number] Acct: [id number] Name: CLARIBEL ALLISON Rep #:[id number] : 1955 69 From: Iglesia Flynn PCP: Dr. Abdulaziz Ackerman MD Status:A DM IN Location: [place] [id number]- [id number] Providers Date of Admission: 08/21/24 Date of Discharge: 08/25/24 Primary Care Physician: Dr. Abdulazzi Ackerman MD Consultations 08/21/24 13:22 Consult: Cardiology Routine Consulting Provider: Param Dominguez Reason for Consult: CHF exa, afib rvr EMERGENT Consult: No MD Notified: Yes Date Notified: 08/21/24 Time Notified: 12:22 Method of Notification: ED Physician Initiated 08/21/24 17:29 Consult: Onc/Wound/feather shaper Routine Comment: Reason for Consult:: wounds BLE [...] as patient having headache. Discussed with the hotel houseman consult consult reviewed. Continue furosemide drip 10 [...] 139. BUN/creatinine 26/creatinine 1.18. Patient is euvolemic. Dischargedon furosemide 40 mg twice daily, spironolactone 50 mg daily, lisinopril 20 mg daily, carvedilol 3.125 mg twice daily and magnesium supplement. Patient already on potassium supplement. Hypokalemia resolved. Advised BMP and PT/NR in 2 days and follow with PCP. Discharge medications discussed with thecardiologist Dr. Ramesh. Follow-up in cardiology in 2 [...] 4.7-second therefore cardiology discontinued. Discussed with the hotel houseman. Will need outpatient event monitor after discharge from 08/25: Patient did not had sinus pause but had AV conduction block of about 3.27- second. Discussed with the hotel houseman Dr. Ramesh. He is okay with the [...] or advanced directive or designated power of tip stitcher for health. His sister is next to [...] L, MCH 20.1 L, MCHC 27.6 L, RDWStd Deviation 50.4 H, RDW Coeff of Ele 19.9 H, Plt Count 218, MPV 10.0, Immature Gran % (Auto) 0.300, Neut % (Auto) 65.4, Lymph % (Auto) 22.8, [place] % (Auto) 8.9, Eos % (Auto) 1.9, [...] 64) 128 mg (2 x 64 mg) PODAILY 1 month #60 tabs 08/25/24 sennosides 8.6 mg-docusate sodium 50 mg tablet (Stimulant Laxative Plus) 2 tab PO BID #0 tabs 08/25/24 spironolactone 50 mg tablet 50 mg PO DAILY 30 days #30 tabs 08/25/24 Physical Exam Narrative Patient is asymptomatic. 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 She had about 4.7-second pause on carvedilol yesterday was held. Carvedilol resumed at lower dose 3.125 mg twice daily after discussion with the hotel houseman. Shortness of breath and hypokalemia have resolved. [...] L, MCH 20.1 L, MCHC 27.6 L, RDWStd Deviation 50.4 H, RDW Coeff of Ele 19.9 H, Plt Count 218, MPV 10.0, Immature Gran % (Auto) 0.300, Neut % (Auto) 65.4, Lymph % (Auto) 22.8, [place] % (Auto) 8.9, Eos % (Auto) 1.9, [...] Self Care Charges/Coding Visit Charges Inpatient E&M: 36439 Disch Hosp >30min 08/25/24 1105 Cosigner Signature (if applicable): CC: Dr. Abdulaziz Ackerman MD; Dr. Iglesia Benson MD~ Signed ADDENDUM by Dr. Iglesia Benson MD on 08/25/24 at 1120 Addendum 30-day event monitor approved by hotel houseman Dr. Ramesh. To monitor A-fib/A-flutter with slow conduction. Patient is asymptomatic with regards to bradycardia 08/25/24 1120 Cosigner Signature (if applicable): cc: Dr. Abdulaziz Ackerman MD; Dr. Iglesia Benson MD ~* Signed ADDENDUM by Dr. Iglesia Benson MD on 08/25/24 at 1332 Addendum Patient was on furosemide 40 mg daily at home. It was discontinued new prescription for furosemide 40 mg p.o. twice daily given 08/25/24 1332 Cosigner Signature (if applicable): cc: Dr. Abdulaziz Ackerman MD; Dr. Iglesia Benson MD ~* Signed [facility]04-06-2025 Discharge summary Author Iglesia Benson [facility] Note Date/Time August 25, 2024 10:5 9am [facility] Medical Records Department [address] [place] [address] Instructions for Home/Discharge Instructions 08/25/24 1042 MR#: [id number] Acct: [id number] Name: CLARIBEL ALLISON Rep #:[id number] : 1955 69 From: Iglesia Flynn PCP: [...] MD; Dr. Param Dominguez MD ~ Signed [facility] Work Phone: 1(178) 590-567204-06-2025 Discharge summary Author Iglesia Benson [facility] Note Date/Time August 25, 2024 1:32 pm [facility] Medical Records Department [address] [place] [address] Discharge Summary 08/25/24 1059 MR#: [id number] Acct: [id number] Name: CLARIBEL ALLISON Rep #:[id number] : 1955 69 From: Iglesia Flynn PCP: Dr. Abdulaziz Ackerman MD Status:A DM IN Location: [facility] [id number] Providers Date of Admission: 08/21/24 Date of Discharge: 08/25/24 Primary Care Physician: Dr. Abdulaziz Ackerman MD Consultations 08/21/24 13:22 Consult: Cardiology Routine Consulting Provider: Param Dominguez Reason for Consult: CHF exa, afib rvr EMERGENT Consult: No MD Notified: Yes Date Notified: 08/21/24 Time Notified: 12:22 Method of Notification: ED Physician Initiated 08/21/24 17:29 Consult: Onc/Wound/feather shaper Routine Comment: Reason for Consult:: wounds BLE [...] as patient having headache. Discussed with the hotel houseman consult consult reviewed. Continue furosemide drip 10 [...] with PCP. Discharge medications discussed with the hotel houseman Dr. Ramesh. Follow-up in cardiology in 2 [...] 4.7-second therefore cardiology discontinued. Discussed with the hotel houseman. Will need outpatient event monitor after discharge from 08/25: Patient did not had sinus pause but had AV conduction block of about 3.27-second. Discussed with the hotel houseman Dr. Ramesh. He is okay with the [...] or advanced directive or designated power of tip stitcher for health. His sister is next to [...] % (Auto) 65.4, Lymph % (Auto) 22.8, [place] % (Auto) 8.9, Eos % (Auto) 1.9, [...] 08/25/24 Physical Exam Narrative Patient is asymptomatic. 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 She had about 4.7-second pause on carvedilol yesterday was held. Carvedilol resumed at lower dose 3.125 mg twice daily after discussion with the hotel houseman. Shortness of breath and hypokalemia have resolved. [...] / Lab / Microbiology Data 08/25/24 04:36 04/06/25 04:36 Laboratory: Laboratory Results - last 24 [...] % (Auto) 65.4, Lymph % (Auto) 22.8, [place] % (Auto) 8.9, Eos % (Auto) 1.9, [...] Self Care Charges/Coding Visit Charges Inpatient E&M: 66741 Disch Hosp >30min 08/25/24 1105 <Electronically signed by Iglesia Benson MD> Cosigner Signature (if applicable): CC: Dr. Abdulaziz Ackerman MD; Dr. Iglesia Benson MD~ Signed ADDENDUM by Dr. Iglesia Benson MD on 08/25/24 at 1120 Addendum 30-day event monitor approved by hotel houseman Dr. Ramesh. To monitor A-fib/A-flutter with slow [...] MD; Dr. Iglesia Benson MD ~* Signed [facility] Work Phone: 1(409) 205-913504-06-2025 Discharge summary [facility] Medical Records Department [facility] [place] [place] [address] Instructions for Home/Discharge Instructions 08/25/24 1042 MR#: [id number] Acct: [id number] Name: CLARIBEL ALLISON Lennie Rep #:[id number] : 1955 69 From: Iglesia Flynn PCP: [...] MD; Dr. Param Dominguez MD ~ Signed [facility]04-06-2025 [facility]04-06-2025 Progress note Author Samantha Gary [facility] Note Date/Time August 25, 2024 2:20 am [facility] Medical Records Department [address] [place] [address] Progress Note - Hospitalist 08/25/24 0219 MR#: [id number] Acct: [id number] Name: CLARIBEL ALLISON Rep #:[id number] : 1955 69 From: Samantha Gary MD PCP: Dr. Abdulaziz Ackerman MD Status:A DM IN Location: [place] [address] Hospitalist Note Patient with asymptomatic 4.49 sec pause. Cardiology following. 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 Ramesh most recent note. 08/25/24 0220 <Electronically signed by Samantha Gary MD> Cosigner Signature (if applicable): CC: ~ Signed [facility] Work Phone: [phone] Progress note [facility] Medical Records Department [address] [place] [address] Progress Note - Hospitalist 08/25/24 0219 MR#: [id number] Acct: [id number] Name: CLARIBEL ALLISON Rep #:[id number] : 1955 69 From: Samantha Gary MD PCP: Dr. Abdulaziz Ackerman MD Status:A DM IN Location: [place] [address] Hospitalist Note Patient with asymptomatic 4.49 sec pause. Cardiology following. 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 Ramesh most recent note. 08/25/24219 Cosigner Signature (if applicable): CC: ~ Signed [facility]04-05-2025 Progress note Author Felicia Ramesh [facility] Note Date/Time August 24, 2024 3:18 pm [facility] Medical Records Department [address] [place] [address] Progress Note - Cardiology 08/24/24 1506 MR#: [id number] Acct: [id number] Name: CLARIBEL ALLISON Rep #:[id number] : 1955 69 From: Felicia bradford MD PCP: Dr. Abdulaziz Ackerman MD Status:A DM IN Location: [place] [address] Subjective Subjective Patient is doing well. Denies [...] Neut % (Auto) 67.8, Lymph % (Auto) 20.7,[place] % (Auto) 8.6, Eos % (Auto) 2.1, [...] % (Auto) 67.8, Lymph % (Auto) 20.7, [place] % (Auto) 8.6, Eos % (Auto) 2.1, [...] an outpatient. Charges/Coding Visit Charges Inpatient E&M: 57124 Subs Hosp L1 08/24/24 5175 <Electronically signed by Felicia Ramesh MD> Cosigner Signature (if applicable): CC: ~ Signed [facility] Work Phone: [phone] Progress note Author Iglesia Benson [facility] Note Date/Time August 24, 2024 3:01 pm [facility] Medical Records Department [address] [facility] [place] [address] Progress Note - Hospitalist 08/24/24 1240 MR#: [id number] Acct: [id number] Name: CLARIBEL ALLISON Rep #:[id number] : 1955 69 From: Iglesia Flynn PCP: Dr. 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 % (Auto) 8.6, Eos % (Auto) 2.1, [...] therefore carvedilol is discontinued. Discussed with the hotel houseman. She also has severe hypokalemia. Shortness of [...] ordered. Nitroglycerin ointment ordered for preload reduction 4/: Dyspnea is much better and has resolved. Sitting comfortable. Discontinuenitroglycerin ointment as patient having headache. Discussed with the hotel houseman consult consult reviewed. Continue furosemide drip 10 [...] 4.7-second therefore cardiology discontinued. Discussed with the hotel houseman. Will need outpatient event monitor after discharge [...] or advanced directive or designated power of tip stitcher for health. His sister is next to kin. After discussion of benefits/risks procedures involved with full code, DNR CC arrest and DNR CC, the patient opted for full code. Patient does want artificial life support including intubation, tube feed, ventilator and/chest compression, central venous catheter, vasopressor and DC shock if needed Total time spent in xufb-km-lstw encounter in discussion of advanced directive 17 minutes. Laboratory Results 08/24/24 05:55: WBC 6.3, RBC 4.75, Hgb 9.7 L, Hct 33.9 L, MCV 71.4 L, MCH 20.4 L, MCHC 28.6 L, RDW Std Deviation 49.5 H, RDW Coeff of Ele 19.7 H, Plt Count 198,MPV 10.2, Immature Gran % (Auto) 0.200, Neut % (Auto) 67.8, Lymph % (Auto) 20.7,[place] % (Auto) 8.6, Eos % (Auto) 2.1, [...] normal. Stage 2 diastolic dysfunction. 08/24/24 1501 <Electronically signed by Iglesia Benson MD> Cosigner Signature (if applicable): CC: ~ Signed [facility] Work Phone: [phone]) 754-726304-05-2025 Progress note [facility] Medical Records Department [address] [place] [address] Progress Note - Cardiology 08/24/24 1506 MR#: [id number] Acct: [id number] Name: CLARIBEL ALLISON Rep #:[id number] : 1955 69 From: Felicia bradford MD PCP: Dr. Abdulaziz Ackerman MD Status:A DM IN Location: [place] [address] Subjective Subjective Patient is doing well. Denies [...] 0.200,Neut % (Auto) 67.8, Lymph % (Auto) 20.7,[place] % (Auto) 8.6, Eos % (Auto) 2.1, [...] % (Auto) 67.8, Lymph % (Auto) 20.7, [place] % (Auto) 8.6, Eos % (Auto) 2.1, [...] an outpatient. Charges/Coding Visit Charges Inpatient E&M: 19775 Subs Hosp L1 08/24/24 1516 Cosigner Signature (if applicable): CC: ~ Signed [facility]04-05-2025 Progress note [facility] Medical Records Department [address] [place] [address] Progress Note - Hospitalist 08/24/24 1240 MR#: [id number] Acct: [id number] Name: CLARIBEL ALLISON Rep #:[id number] : 1955 69 From: Iglesia Flynn PCP: Dr. 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 % (Auto) 8.6, Eos % (Auto) 2.1, [...] therefore carvedilol is discontinued. Discussed with the hotel houseman. She also has severe hypokalemia. Shortness of [...] as patient having headache. Discussed with the hotel houseman consult consult reviewed. Continue furosemide drip 10 [...] 4.7-second therefore cardiology discontinued. Discussed with the hotel houseman. Will need outpatient event monitor after discharge [...] or advanced directive or designated power of tip stitcher for health. His sister is next to kin. After discussion of benefits/risks procedures involved with full code, DNR CC arrest and DNR CC, the patient opted for fullcode. Patient does want artificial life support including intubation, tube feed, ventilator and/chest compression, central venous catheter, vasopressor and DC shock if needed Total time spent in berr-pr-taqe encounter in discussion of advanced directive 17 minutes. Laboratory Results 08/24/24 05:55: WBC 6.3, RBC 4.75, Hgb 9.7 L, Hct 33.9 L, MCV 71.4 L, MCH 20.4 L, MCHC 28.6 L, RDW Std Deviation 49.5 H, RDW Coeff of Lee 19.7 H, Plt Count 198,MPV 10.2, Immature Gran % (Auto) 0.200,Neut % (Auto) 67.8, Lymph % (Auto) 20.7,[place] % (Auto) 8.6, Eos % (Auto) 2.1, [...] Cosigner Signature (if applicable): CC: ~ Signed [facility]04-05-2025 Progress note Author Samantha Gary [facility] Note Date/Time August 24, 2024 12:0 3am [facility] Medical Records Department [address] [place] [address] Progress Note - Hospitalist 08/24/24 0002 MR#: [id number] Acct: [id number] Name: ALLISONCLARIBEL A Rep #:[id number] : 1955 69 From: Samantha Gary MD PCP: Dr. Abdulaziz Ackerman MD Status:A DM IN Location: [place] [address] Hospitalist Note Patient with 4.7 sec asymptomatic pause on monitor. Noted patient on BB therapy per Cardiology addition recently. Will need to continue to closely monitor and may need to adjust meds if ongoing. 08/24/24 0003 <Electronically signed by Samantha Gary MD> Cosigner Signature (if applicable): CC: ~ Signed [facility] Work Phone: [phone] Progress note [facility] Medical Records Department [address] [place] [address] Progress Note - Hospitalist 08/24/24 0002 MR#: [id number] Acct: [id number] Name: CHELECLARIBEL A Rep #:[id number] : 1955 69 From: Samantha Gary MD PCP: Dr. Abdulaziz Ackerman MD Status:A DM IN Location: [place] [address] Hospitalist Note Patient with 4.7 sec asymptomatic pause on monitor. Noted patient on BB therapy per Cardiology addition recently. Will need to continue to closely monitor and may need to adjust meds if ongoing. 08/24/24 0003 Cosigner Signature (if applicable): CC: ~ Signed [facility]04-04-2025 Progress note Author Iglesia Benson [facility] Note Date/Time August 23, 2024 1:05 pm [facility] Medical Records Department [address] [place] [address] Progress Note - Hospitalist 08/23/24 1257 MR#: [id number] Acct: [id number] Name: CLARIBEL ALLISON Rep #:[id number] : 1955 69 From: Iglesia Flynn PCP: Dr. 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 % (Auto) 7.9, Eos % (Auto) 2.2, [...] as patient having headache. Discussed with the hotel houseman consult consult reviewed. Continue furosemide drip 10 [...] or advanced directive or designated power of tip stitcher for health. His sister is next to kin. After discussion of benefits/risks procedures involved with full code, DNR CC arrest and DNR CC, the patient opted for full code. Patient does want artificial life support including intubation, tube feed, ventilator and/chest compression, central venous catheter, vasopressor and DC shock if needed Total time spent in xbbj-bw-nykg encounter in discussion of advanced directive 17 minutes. Laboratory Results 08/23/24 05:23: WBC 7.0, RBC 4.88, Hgb 9.9 L, Hct 35.7 L, MCV 73.2 L, MCH 20.3 L, MCHC 27.7 L, RDW Std Deviation 50.6 H, RDW Coeff of Ele 20.0 H, Plt Count 199,MPV 9.9, Immature Gran % (Auto) 0.300, Neut % (Auto) 67.2, Lymph % (Auto) 21.7, [place] % (Auto) 7.9, Eos % (Auto) 2.2, [...] diastolic dysfunction. Charges/Coding Visit Charges Inpatient E&M: 81189 Subs Hosp L2 08/23/24 1305 <Electronically signed by Iglesia Benson MD> Cosigner Signature (if applicable): CC: ~ Signed [facility] Work Phone: 1(262) 767-504304-04-2025 Progress note [facility] Medical Records Department [address] [place] [address] Progress Note - Hospitalist 08/23/24 1257 MR#: [id number] Acct: [id number] Name: CLARIBEL ALLISON Rep #:[id number] : 1955 69 From: Iglesia Flynn PCP: Dr. 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 % (Auto) 7.9, Eos % (Auto) 2.2, [...] as patient having headache. Discussed with the hotel houseman consult consult reviewed. Continue furosemide drip 10 [...] or advanced directive or designated power of tip stitcher for health. His sister is next to kin. After discussion of benefits/risks procedures involved with full code, DNR CC arrest and DNR CC, the patient opted for fullcode. Patient does want artificial life support including intubation, tube feed, ventilator and/chest compression, central venous catheter, vasopressor and DC shock if needed Total time spent in xyzt-in-miho encounter in discussion of advanced directive 17 minutes. Laboratory Results 08/23/24 05:23: WBC 7.0, RBC 4.88, Hgb 9.9 L, Hct 35.7 L, MCV 73.2 L, MCH 20.3 L, MCHC 27.7 L, RDW Std Deviation 50.6 H, RDW Coeff of Ele 20.0 H, Plt Count 199,MPV 9.9, Immature Gran % (Auto) 0.300, Neut % (Auto) 67.2, Lymph % (Auto) 21.7, [place] % (Auto) 7.9, Eos % (Auto) 2.2, [...] diastolic dysfunction. Charges/Coding Visit Charges Inpatient E&M: 86646 Subs Hosp L2 08/23/24 1305 Cosigner Signature (if applicable): CC: ~ Signed [facility]04-04-2025 Progress note Author Jamal Munoz [facility] Note Date/Time August 23, 2024 8:18 am [facility] Medical Records Department [address] [place] [address] Progress Note - Cardiology 08/23/24816 MR#: [id number] Acct: [id number] Name: CLARIBEL ALLISON Rep #:[id number] : 1955 69 From: Jamal Munoz MD PCP: Dr. Abdulaziz Ackerman MD Status:A DM IN Location: [place] [address] Subjective Subjective Patient seen and evaluated. Objective [...] % (Auto) 67.2, Lymph % (Auto) 21.7, [place] % (Auto) 7.9, Eos % (Auto) 2.2, [...] % (Auto) 67.2, Lymph % (Auto) 21.7, [place] % (Auto) 7.9, Eos % (Auto) 2.2, [...] She has a stable thoracoabdominal aneurysm. 08/23/24817 <Electronically signed by Jamal Munoz MD> Cosigner Signature (if applicable): CC: ~ Signed [facility] Work Phone: 1(499) 989-256704-04-2025 Progress note [facility] Medical Records Department [address] [place] [address] Progress Note - Cardiology 08/23/24816 MR#: [id number] Acct: [id number] Name: CLARIBEL ALLISON Rep #:[id number] : 1955 69 From: Jamal Munoz MD PCP: Dr. Abdulaziz Ackerman MD Status:A DM IN Location: [place] [address] Subjective Subjective Patient seen and evaluated. Objective [...] % (Auto) 67.2, Lymph % (Auto) 21.7, [place] % (Auto) 7.9, Eos % (Auto) 2.2, [...] % (Auto) 67.2, Lymph % (Auto) 21.7, [place] % (Auto) 7.9, Eos % (Auto) 2.2, [...] Cosigner Signature (if applicable): CC: ~ Signed [facility]04-03-2025 Progress note Author Iglesia Benson [facility] Note Date/Time August 22, 2024 9:17 am [facility] Medical Records Department [address] [place] [address] Progress Note - Hospitalist 08/22/2443 MR#: [id number] Acct: [id number] Name: CLARIBEL ALLISON Rep #:[id number] : 1955 69 From: Iglesia Flynn PCP: Dr. 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 % (Auto) 5.2, Eos % (Auto) 1.0, [...] % (Auto) 63.5, Lymph % (Auto) 23.2, [place] % (Auto) 10.0, Eos % (Auto) 1.8, Baso % (Auto) 1.0, Absolute Neuts (auto) 4.7, Absolute Lymphs (auto) 1.70, Nucleated RBC % 0 Radiography Diagnostic Testing: Radiology Impression Chest X-Ray 08/21/24 11:32 IMPRESSION: Cardiomegaly with mild congestion. Reading Location: [facility] Echocardiogram 08/21/24 14:27 Interpretation Summary Normal LV [...] as patient having headache. Discussed with the hotel houseman consult consult reviewed. Continue furosemide drip 10 [...] or advanced directive or designated power of tip stitcher for health. His sister is next to kin. After discussion of benefits/risks procedures involved with full code, DNR CC arrest and DNR CC, the patient opted for full code. Patient does want artificial life support including intubation, tube feed, ventilator and/chest compression, central venous catheter, vasopressor and DC shock if needed Total time spent in yxeg-nn-wulu encounter in discussion of advanced directive 17 minutes. Laboratory Results 08/21/24 11:35: WBC 7.9, RBC 4.85, Hgb 9.8 L, Hct 34.9 L, MCV 72.0 L, MCH 20.2 L, MCHC 28.1 L, RDW Std Deviation 49.1 H, RDW Coeff of Ele 19.6 H, Plt Count 189,MPV 9.2, Immature Gran % (Auto) 0.400, Neut % (Auto) 77.3 H, Lymph % (Auto) 15.3L, [place] % (Auto) 5.2, Eos % (Auto) 1.0, [...] % (Auto) 63.5, Lymph % (Auto) 23.2, [place] % (Auto) 10.0, Eos % (Auto) 1.8, [...] diastolic dysfunction. Charges/Coding Visit Charges Inpatient E&M: 70316 Subs Hosp L3 08/22/2415 <Electronically signed by Iglesia Benson MD> Cosigner Signature (if applicable): CC: ~ Signed ADDENDUM by Dr. Iglesia Benson MD on 08/22/24 at 0917 Addendum Correction: Teletype Installer note reviewed. Metoprolol succinate changed to carvedilol 6.25 mg twice daily. Patient had some pauses last night with heart rate dropping into the 30s in the process improvement analyst. Currently, A-fib in 97/min 08/22/24 0917<Electronically signed by Iglesia Benson MD> Cosigner Signature (if applicable): cc: ~* Signed [facility] Work Phone: 1(845) 856-528104-03-2025 Progress note Author Jamal Munoz [facility] Note Date/Time August 22, 2024 9:06 am [facility] Medical Records Department [address] [place] [address] Progress Note - Cardiology 08/22/24901 MR#: [id number] Acct: [id number] Name: CLARIBEL ALLISON Rep #:[id number] : 1955 69 From: Jamal Munoz MD [...] (Auto) 77.3 H, Lymph % (Auto) 15.3L, [place] % (Auto) 5.2, Eos % (Auto) 1.0, [...] % (Auto) 63.5, Lymph % (Auto) 23.2, [place] % (Auto) 10.0, Eos % (Auto) 1.8, [...] 77.3 H, Lymph % (Auto) 15.3 L, [place] % (Auto) 5.2, Eos % (Auto) 1.0, [...] % (Auto) 63.5, Lymph % (Auto) 23.2, [place] % (Auto) 10.0, Eos % (Auto) 1.8, Baso % (Auto) 1.0, Absolute Neuts (auto) 4.7, Nucleated RBC % 0 Rhythm: EKG: ECHO: Stress Test: Cardiac Cath: PCI: CT Surgery: Holter monitor: EPS: PPM: CXR: Chest CT Scan: Radiography Diagnostic Testing: Radiology Impression Chest X-Ray 08/21/24 11:32 IMPRESSION: Cardiomegaly with mild congestion. Reading Location: [facility] Echocardiogram 08/21/24 14:27 Interpretation Summary Normal LV [...] Cosigner Signature (if applicable): CC: ~ Signed [facility] Work Phone: 1(479) 355-513404-03-2025 Progress note [facility] Medical Records Department [address] [place] [address] Progress Note - Hospitalist 08/22/24 0843 MR#: [id number] Acct: [id number] Name: CLARIBEL ALLISON Rep #:[id number] : 1955 69 From: Iglesia Flynn PCP: Dr. 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 % (Auto) 5.2, Eos % (Auto) 1.0, [...] % (Auto) 63.5, Lymph % (Auto) 23.2, [place] % (Auto) 10.0, Eos % (Auto) 1.8, Baso % (Auto) 1.0, Absolute Neuts (auto) 4.7, Absolute Lymphs (auto) 1.70, Nucleated RBC % 0 Radiography Diagnostic Testing: Radiology Impression Chest X-Ray 08/21/24 11:32 IMPRESSION: Cardiomegaly with mild congestion. Reading Location: [facility] Echocardiogram 08/21/24 14:27 Interpretation Summary Normal LV size. The left ventricular ejection fraction is 20 %. There is severe global hypokinesis of the left ventricle. The left atrium is moderately enlarged. Mild-Moderate (1-2+) eccentric mitral valve insufficiency. Mildly dilated aortic root. The right atrium is mildly enlarged. Ordering Physician: Iglesia Benson Referring Physician: Abdulaziz Ackerman Performed By: Mason Reyes, ABAD Rhythm Strip Rhythm Strip: A-fib Rate: 125 [...] as patient having headache. Discussed with the hotel houseman consult consult reviewed. Continue furosemide drip 10 [...] or advanced directive or designated power of tip stitcher for health. His sister is next to kin. After discussion of benefits/risks procedures involved with full code, DNR CC arrest and DNR CC, the patient opted for fullcode. Patient does want artificial life support including intubation, tube feed, ventilator and/chest compression, central venous catheter, vasopressor and DC shock if needed Total time spent in odhh-kd-grbb encounter in discussion of advanced directive 17 minutes. Laboratory Results 08/21/24 11:35: WBC 7.9, RBC 4.85, Hgb 9.8 L, Hct 34.9 L, MCV 72.0 L, MCH 20.2 L, MCHC 28.1 L, RDW Std Deviation 49.1 H, RDW Coeff of Ele 19.6 H, Plt Count 189,MPV 9.2, Immature Gran % (Auto) 0.400, Neut % (Auto) 77.3 H, Lymph % (Auto) 15.3L, [place] % (Auto) 5.2, Eos % (Auto) 1.0, [...] % (Auto) 63.5, Lymph % (Auto) 23.2, [place] % (Auto) 10.0, Eos % (Auto) 1.8, [...] diastolic dysfunction. Charges/Coding Visit Charges Inpatient E&M: 48025 Subs Hosp L3 08/22/24 0915 Cosigner Signature (if applicable): CC: ~ Signed ADDENDUM by Dr. Iglesia Benson MD on 08/22/24 at 0917 Addendum Correction: Teletype Installer note reviewed. Metoprolol succinate changed to carvedilol 6.25 mg twice daily. Patient had some pauses last night with heart rate dropping into the 30s in the process improvement analyst. Currently, A-fib in 97/min 08/22/24 0917 Cosigner Signature (if applicable): cc: ~* Signed [facility]04-03-2025 Progress note [facility] Medical Records Department [address] [place] [address] Progress Note - Cardiology 08/22/24901 MR#: [id number] Acct: [id number] Name: CLARIBEL ALLISON Rep #:[id number] : 1955 69 From: Jamal Munoz MD [...] (Auto) 77.3 H, Lymph % (Auto) 15.3L, [place] % (Auto) 5.2, Eos % (Auto) 1.0, [...] % (Auto) 63.5, Lymph % (Auto) 23.2, [place] % (Auto) 10.0, Eos % (Auto) 1.8, [...] 77.3 H, Lymph % (Auto) 15.3 L, [place] % (Auto) 5.2, Eos % (Auto) 1.0, [...] % (Auto) 63.5, Lymph % (Auto) 23.2, [place] % (Auto) 10.0, Eos % (Auto) 1.8, Baso % (Auto) 1.0, Absolute Neuts (auto) 4.7, Nucleated RBC % 0 Rhythm: EKG: ECHO: Stress Test: Cardiac Cath: PCI: CT Surgery: Holter monitor: EPS: PPM: CXR: Chest CT Scan: Radiography Diagnostic Testing: Radiology Impression Chest X-Ray 08/21/24 11:32 IMPRESSION: Cardiomegaly with mild congestion. Reading Location: [facility] Echocardiogram 08/21/24 14:27 Interpretation Summary Normal LV [...] Cosigner Signature (if applicable): CC: ~ Signed [facility]04-02-2025 Consult note Author Param Dominguez [facility] Note Date/Time August 21, 2024 5:23 pm [facility] Medical Records Department [address] [place] [address] Consultation - Cardiology 08/21/24 1640 MR#: [id number] Acct: [id number] Name: CLARIBEL ALLISON Rep #:[id number] : 1955 69 From: Param Dominguez MD [...] in my opinion. (5) Current use of oil heaterman 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: PLAN: Patient has been on Coumadin [...] 40 mmHg. There was also 1+ AI. [facility] Medical History Irregular heart beat Atrial fibrillation Former smoker Ulcer of right lower extremity Lower extremity edema Dyspnea on exertion Diastolic heart failure Acute lumbar myofascial strain Acute thoracic myofascial strain Back pain Debility, unspecified Return to work evaluation Right renal mass Angina of effort Acute hypokalemia Chest pain Non-ST elevation NV (NSTEMI) Atrial flutter Borderline type 2 diabetes mellitus GERD (gastroesophageal reflux disease) Acute low back pain Elevated random blood glucose level Anxiety and depression Menopausal disorder Melanoma Preoperative clearance Flu vaccine need Current use of oil heaterman 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 Obesity Elevated troponin (08/09/20) Hyperlipidemia Nicotine [...] 8% Risk Charges/Coding Visit Charges Inpatient E&M: 24863 Init Hosp L3 Objective Data Vital Signs: [...] (Auto) 77.3 H, Lymph % (Auto) 15.3L, [place] % (Auto) 5.2, Eos % (Auto) 1.0, [...] 77.3 H, Lymph % (Auto) 15.3 L, [address] James % (Auto) 5.2, Eos % (Auto) 1.0, [...] IMPRESSION: Cardiomegaly with mild congestion. Reading Location: [facility] Echocardiogram 08/21/24 14:27 Interpretation Summary Normal LV size. The left ventricular ejection fraction is 20 %. There is severe global hypokinesis of the left ventricle. The left atrium is moderately enlarged. Mild-Moderate (1-2+) eccentric mitral valve insufficiency. Mildly dilated aortic root. The right atrium is mildly enlarged. Ordering Physician: Iglesia Benson Referring Physician: Abdulaziz Ackerman Performed By: Mason Reyes RCS 08/21/24 1723 <Electronically signed by Param Dominguez MD> Cosigner Signature (if applicable): CC: Dr. Abdulaziz Ackerman MD~ Signed [facility] Work Phone: 1(387) 325-149704-02-2025 Consult note [facility] Medical Records Department [address] [place] [address] Consultation - Cardiology 08/21/24 1640 MR#: [id number] Acct: [id number] Name: CLARIBEL ALLISON Lennie Rep #:[id number] : 1955 69 From: Param Dominguez MD [...] in my opinion. (5) Current use of halfway 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: PLAN: Patient has been on Coumadin [...] 40 mmHg. There was also 1+ AI. [facility] Medical History Irregular heart beat Atrial fibrillation Former smoker Ulcer of right lower extremity Lower extremity edema Dyspnea on exertion Diastolic heart failure Acute lumbar myofascial strain Acute thoracic myofascial strain Back pain Debility, unspecified Return to work evaluation Right renal mass Angina of effort Acute hypokalemia Chest pain Non-ST elevation NV (NSTEMI) Atrial flutter Borderline type 2 diabetes mellitus GERD (gastroesophageal reflux disease) Acute low back pain Elevated random blood glucose level Anxiety and depression Menopausal disorder Melanoma Preoperative clearance Flu vaccine need Current use of halfway 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 Obesity Elevated troponin (08/09/20) Hyperlipidemia Nicotine [...] 8% Risk Charges/Coding Visit Charges Inpatient E&M: 92830 Init Hosp L3 Objective Data Vital Signs: [...] (Auto) 77.3 H, Lymph % (Auto) 15.3L, [place] James % (Auto) 5.2, Eos % (Auto) 1.0, [...] 77.3 H, Lymph % (Auto) 15.3 L, [address] James % (Auto) 5.2, Eos % (Auto) 1.0, [...] IMPRESSION: Cardiomegaly with mild congestion. Reading Location: [facility] Echocardiogram 08/21/24 14:27 Interpretation Summary Normal LV size. The left ventricular ejection fraction is 20 %. There is severe global hypokinesis of the left ventricle. The left atrium is moderately enlarged. Mild-Moderate (1-2+) eccentric mitral valve insufficiency. Mildly dilated aortic root. The right atrium is mildly enlarged. Ordering Physician: Iglesia Benson Referring Physician: Abdulaziz Ackerman Performed By: Mason Reyes, ABAD 08/21/24 1723 Cosigner Signature (if applicable): CC: Dr. Abdulaziz Ackerman MD~ Signed [facility]04-02-2025 Discharge summary Author Skyler Watkins [facility] Note Date/Time August 21, 2024 3:07 pm [facility] Medical Records Department [address] [place] [address] Emergency Department Summary 08/21/24 MR#: [id number] Acct: [id number] Name: CLARIBEL ALLISON Rep #:[id number] : 1955 69 From: Skyler Watkins MD [...] authored by Dr. Wright and nurse p) [facility] Medical History (Updated 08/21/24 @ 14:53 by Lou Marquez) Irregular heart beat Atrial fibrillation Former smoker Ulcer of right lower extremity Lower extremity edema Dyspnea on exertion Diastolic heart failure Acute lumbar myofascial strain Acute thoracic myofascial strain Back pain Debility, unspecified Return to work evaluation Right renal mass Angina of effort Acute hypokalemia Chest pain Non-ST elevation NV (NSTEMI) Atrial flutter Borderline type 2 diabetes mellitus GERD (gastroesophageal reflux disease) Acute low back pain Elevated random blood glucose level Anxiety and depression Menopausal disorder Melanoma Preoperative clearance Flu vaccine need Current use of halfway 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 Obesity Elevated troponin (08/09/20) Hyperlipidemia Nicotine [...] 77.3 H Lymph % (Auto) 15.[address] James % (Auto) 5.2 Eos % (Auto) 1.0 [...] IMPRESSION: Cardiomegaly with mild congestion. Reading Location: [facility] Rhythm Strip Rhythm Strip: A-fib Rate: 141 EKG Initial EKG: Attestation: I personally reviewed and interpreted this EKG as follows: Interpretation: Atrial Fibrillation (Rate is 139. This probably result represents a flutter with a variable block. QRS duration 80 ms. QT duration 290 ms. [place] to the right. There is no ossific ST-T wave changes throughout. This is probably due to the a flutter with variable block.) Management Discussion w/another healthcare provider: Hospitalist (Hospitalist was paged foradmission. Full admit PCU) and Conference Reservationist (Spoke Dr. Epifanio Dominguez. Will rate control with metoprolol. He requested 50 twice daily after admission. He will see her in the hospital. A page was placed to the hospitalist.) Discharge Plan Dx/Rx/DC Orders Clinical Impression: Atrial flutter, Essential hypertension, Hyperlipidemia, Current use of oil heaterman 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, Acute exacerbation of CHF (congestive heart failure), Anasarca, Microcytic anemia, Type 2 diabetes mellitus with hyperglycemia, Tachypnea on examination Disposition Disposition: Acute Care Hospital [facility] Discharge Date/Time: 08/21/24 14:20 What to do if you have Problems For any increased pain, shortness of breath, bleeding, nausea or vomiting, chestpain, or any unexpected problems, contact your Primary Care Provider. Call [facility] ([phone]) or report to the closest Emergency Room. Call 911 if necessary. 08/21/24 1500 <Electronically signed by Skyler Watkins MD> Cosigner Signature (if applicable): CC: Dr. Abdulaziz Ackerman MD ~ Signed [facility] Work Phone: 1(418) 134-888404-02-2025 History and physical note Author Iglesia Benson [facility] Note Date/Time August 21, 2024 1:22 pm [facility] Medical Records Department [address] [facility] [place] [address] H&P Exam - Hospitalist 08/21/24 1238 MR#: [id number] Acct: [id number] Name: CLARIBEL ALLISON Rep #:[id number] : 1955 69 From: Iglesia Flynn PCP: [...] shows pulmonary congestion's, central involvement and cardiomegaly. [facility] Medical History Ulcer of right lower extremity Lower extremity edema Dyspnea on exertion Diastolic heart failure Acute lumbar myofascial strain Acute thoracic myofascial strain Back pain Debility, unspecified Return to work evaluation Right renal mass Angina of effort Acute hypokalemia Chest pain Non-ST elevation NV (NSTEMI) Atrial flutter Borderline type 2 diabetes mellitus GERD (gastroesophageal reflux disease) Acute low back pain Elevated random blood glucose level Anxiety and depression Menopausal disorder Melanoma Preoperative clearance Flu vaccine need Current use of halfway 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 Obesity Elevated troponin (08/09/20) Hyperlipidemia Nicotine [...] tablet 10 mg PO DAILY #90 tabs 0311/13 Unknown Rx lisinopril 40 mg tablet 40 [...] (Auto) 77.3 H, Lymph % (Auto) 15.3L, [place] James % (Auto) 5.2, Eos % (Auto) 1.0, [...] IMPRESSION: Cardiomegaly with mild congestion. Reading Location: [facility] Assessment & Plan Assessment/Plan (1) Acute exacerbation [...] or advanced directive or designated power of tip stitcher for health. His sister is next to kin. After discussion of benefits/risks procedures involved with full code, DNR CC arrest and DNR CC, the patient opted for full code. Patient does want artificial life support including intubation, tube feed, ventilator and/chest compression, central venous catheter, vasopressor and DC shock if needed Total time spent in [id number] encounter in discussion of advanced directive 17 [...] (Auto) 77.3 H, Lymph % (Auto) 15.3L, [place] James % (Auto) 5.2, Eos % (Auto) 1.0, [...] IMPRESSION: Cardiomegaly with mild congestion. Reading Location: [facility] Charges/Coding Visit Charges Inpatient E&M: 38640 Init Hosp L3 Procedures Hospitalists Procedures: 66943 Advncd Care Plan 30 Min 08/21/24 1322 <Electronically signed by Iglesia Benson MD> Cosigner Signature (if applicable): CC: Dr. Abdulaziz Ackerman MD; Dr. Iglesia Benson MD~ Signed [facility] Work Phone: 1(493) 587-804604-02-2025 Discharge summary [facility] Medical Records Department [address] [place] [address] Emergency Department Summary 08/21/24 MR#: [id number] Acct: [id number] Name: CLARIBEL ALLISON Rep #:[id number] : 1955 69 From: Skyler Watkins MD [...] was seen by her PCP yesterday and Doris Narrative Narrative: Patient is a 69-year-old woman. [...] authored by Dr. Wright and nurse p) [facility] Medical History (Updated 08/21/24 @ 14:53 by Lou Marquez) Irregular heart beat Atrial fibrillation Former smoker Ulcer of right lower extremity Lower extremity edema Dyspnea on exertion Diastolic heart failure Acute lumbar myofascial strain Acute thoracic myofascial strain Back pain Debility, unspecified Return to work evaluation Right renal mass Angina of effort Acute hypokalemia Chest pain Non-ST elevation NV (NSTEMI) Atrial flutter Borderline type 2 diabetes mellitus GERD (gastroesophageal reflux disease) Acute low back pain Elevated random blood glucose level Anxiety and depression Menopausal disorder Melanoma Preoperative clearance Flu vaccine need Current use of halfway 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 Obesity Elevated troponin (08/09/20) Hyperlipidemia Nicotine [...] 77.3 H Lymph % (Auto) 15.[address] [place] % (Auto) 5.2 Eos % (Auto) 1.0 [...] IMPRESSION: Cardiomegaly with mild congestion. Reading Location: [facility] Rhythm Strip Rhythm Strip: A-fib Rate: 141 EKG Initial EKG: Attestation: I personally reviewed and interpreted this EKG as follows: Interpretation: Atrial Fibrillation (Rate is 139. This probably result represents a flutter with a variable block. QRS duration 80 ms. QT duration 290 ms. [place] to the right. There is no ossific ST-T wave changes throughout. This is probably due to the a flutter with variable block.) Management Discussion w/another healthcare provider: Hospitalist (Hospitalist was paged foradmission. Full admit PCU) and Conference Reservationist (Spoke Dr. Epifanio Dominguez. Will rate control with metoprolol. He requested 50 twice daily after admission. He will see her in the hospital. A page was placed to the hospitalist.) Discharge Plan Dx/Rx/DC Orders Clinical Impression: Atrial flutter, Essential hypertension, Hyperlipidemia, Current use of halfway 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, Acute exacerbation of CHF (congestive heart failure), Anasarca, Microcytic anemia, Type 2 diabetes mellitus with hyperglycemia, Tachypnea on examination Disposition Disposition: [facility] Discharge Date/Time: 08/21/24 14:20 What to do if you have Problems For any increased pain, shortness of breath, bleeding, nausea or vomiting, chestpain, or any unexpected problems, contact your Primary Care Provider. Call [facility] ([phone]) or report tothe closest Emergency Room. Call 911 if necessary. 08/21/24 1507 Cosigner Signature (if applicable): CC: Dr. Abdulaziz Ackerman MD ~ Signed [facility]04-02-2025 Evaluation note* Diagnosis Onset Date Resolution Status Admit Date Anasarca acute August 21 12:26pm Atrial flutter acute August 21, 2024 12:26pm Current use of halfway 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 acute August 21, 2024 12:26pm Microcytic [...] left knee chronic October 25, 2024 8:04am Insect bite acute November 25 12:28pm Atrial fibrillation chronic December 10, 2024 9:33pm Congestive heart failure chronic December 10, 2024 9:33pm [facility] Work Phone: 1(278) 745-243104-02-2025 Evaluation note* Diagnosis Onset Date Resolution Status Admit Date Anasarca acute August 21 12:26pm Atrial flutter acute August 21, 2024 12:26pm Current use of halfway 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 acute August 21, 2024 12:26pm Microcytic [...] left knee chronic October 25, 2024 8:04am Insect bite acute November 25 12:28pm Acute exacerbation of CHF (congestive heart failure) chronic December 10, 2024 9:33pm Atrial fibrillation chronic December 10, 2024 9:33pm Cardiac LV ejection fraction of 20-34% chronic December 10, 2024 9:33pm Congestive heart failure chronic December 10, 2024 9:33pm Essential hypertension chronic Ju 2024 9:33pm Thoracoabdominal aortic aneu rysm (TAAA) chronic December 10, 2024 9:33pm [facility] Work Phone: 1([phone]) 891-498004-02-2025 History and physical note [facility] Medical Records Department [address] [place] [address] H&P Exam - Hospitalist 08/21/24 1238 MR#: [id number] Acct: [id number] Name: CLARIBEL ALLISON Rep #:[id number] : 1955 69 From: Iglesia Flynn PCP: [...] shows pulmonary congestion's, central involvement and cardiomegaly. [facility] Medical History Ulcer of right lower extremity Lower extremity edema Dyspnea on exertion Diastolic heart failure Acute lumbar myofascial strain Acute thoracic myofascial strain Back pain Debility, unspecified Return to work evaluation Right renal mass Angina of effort Acute hypokalemia Chest pain Non-ST elevation NV (NSTEMI) Atrial flutter Borderline type 2 diabetes mellitus GERD (gastroesophageal reflux disease) Acute low back pain Elevated random blood glucose level Anxiety and depression Menopausal disorder Melanoma Preoperative clearance Flu vaccine need Current use of oil heaterman 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 Obesity Elevated troponin (08/09/20) Hyperlipidemia Nicotine [...] (Auto) 77.3 H, Lymph % (Auto) 15.3L, [place] % (Auto) 5.2, Eos % (Auto) 1.0, [...] IMPRESSION: Cardiomegaly with mild congestion. Reading Location: [facility] Assessment & Plan Assessment/Plan (1) Acute exacerbation [...] or advanced directive or designated power of tip stitcher for health. His sister is next to kin. After discussion of benefits/risks procedures involved with full code, DNR CC arrest and DNR CC, the patient opted for fullcode. Patient does want artificial life support including intubation, tube feed, ventilator and/chest compression, central venous catheter, vasopressor and DC shock if needed Total time spent in [id number] encounter in discussion of advanced directive 17 [...] (Auto) 77.3 H, Lymph % (Auto) 15.3L, [place]. James % (Auto) 5.2, Eos % (Auto) 1.0, [...] IMPRESSION: Cardiomegaly with mild congestion. Reading Location: [facility] Charges/Coding Visit Charges Inpatient E&M: 22199 Init Hosp L3 Procedures Hospitalists Procedures: 58999 Advncd Care Plan 30 Min 04/02/25 1322 Cosigner Signature (if applicable): CC: Dr. Abdulaziz Ackerman MD; Dr. Iglesia Benson MD~ Signed [facility]04-02-2025 Radiology Diagnostic study note [facility] Imaging Services [address] [place] [address] Chest PA and Lateral MR#: [id number] Acct: [id number] Name: CLARIBEL ALLISON Rep #: [id number] : 1955 F 69 From: Suzanne Flores MD PCP: Dr. Abdulaziz Ackerman MD Status: P RE ER Study:Chest PA and Lateral Date of Exam: 08/21/24 Exam# [id number] Ordering Dr: Marc Watkins MD EXAM: XR [...] IMPRESSION: Cardiomegaly with mild congestion. Reading Location: [facility] CC: Dr. Abdulaziz Acekrman MD; Dr. Skyler Watkins MD ~ Densitometrist: Signed [facility]03-12-2025 Evaluation note* Diagnosis Onset Date Resolution Status Admit Date Open wound of lower extremity acute July 31, 2024 9:34am Diastolic heart failure chronic M arch 2024 9:34am Anasarca acute August 21 12:26pm Atrial flutter acute August 21, 2024 12:26pm Current use of halfway 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 acute August 21, 2024 12:26pm Microcytic [...] left knee chronic October 25, 2024 8:04am [facility] Work Phone: [phone]) 586-363903-05-2025 Evaluation note* Diagnosis Onset Date Resolution Status Admit Date Diastolic heart failure acute M arch 2024 2:08pm Dyspnea on exertion acute July 24, 2024 2:08pm Lower extremity edema acute Jul 2024 2:08pm Ulcer of right lower extremity acute July 24, 2024 2:08pm Atrial flutter chronic July 24, 2024 2:08pm Diastolic heart failure acute M arch 2024 9:34am Open wound of lower extremity acute July 31, 2024 9:34am [facility] Work Phone: 1([phone]) 699-284403-05-2025 Evaluation note* Diagnosis Onset Date Resolution Status Admit Date Diastolic heart failure acute M arch 2024 2:08pm Dyspnea on exertion acute July 24, 2024 2:08pm Lower extremity edema acute Jul 2024 2:08pm Ulcer of right lower extremity acute July 24, 2024 2:08pm Atrial flutter chronic July 24, 2024 2:08pm Diastolic heart failure acute M 2024 9:34am Open wound of lower extremity acute July 31, 2024 9:34am Anasarca acute August 21 12:26pm Atrial flutter acute August 21, 2024 12:26pm Current use of oil heaterman 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 acute August 21, 2024 12:26pm Microcytic [...] 12:26pm Hyperlipidemia chronic August 21, 2024 12:26pm [facility] Work Phone: 1(760) 344-819403-05-2025 Evaluation note* Diagnosis Onset Date Resolution Status Admit Date Diastolic heart failure acute M 2024 2:08pm Dyspnea on exertion acute July 24, 2024 2:08pm Lower extremity edema acute Jul 2:08pm Ulcer of right lower extremity acute July 24, 2024 2:08pm Atrial flutter chronic July 24, 2024 2:08pm Diastolic heart failure acute 2024 9:34am Open wound of lower extremity acute July 31, 2024 9:34am Anasarca acute August 21 12:26pm Atrial flutter acute August 21, 2024 12:26pm Bradycardia acute August 21 12:26pm Current use of oil heaterman 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 acute August 21, 2024 12:26pm Heart [...] rysm (TAAA) chronic August 21, 2024 12:26pm [facility] Work Phone: 1([phone]) 460-275603-05-2025 Evaluation note* Diagnosis Onset Date Resolution Status [...] August 21, 2024 12:26pm Current use of halfway 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 acute August 21, 2024 12:26pm Microcytic [...] September 27, 2024 8:53am Essential hypertension chronic 2024 8:53am Insomnia chronic September 27, 2024 8:53am Ulcer of left lower extremit y with fat layer exposed chronic September 27, 2024 8:53am [facility] Work Phone: 1(271) 465-399806-30-2023 Discharge summary Author Jimmy Clark [facility] November 18, 2022 11:51am Note Date/Time November 18, 2022 11:5 1am [facility] Medical Records Department [address] [place] [address] Discharge Summary 11/18/22 1145 MR#: [id number] Acct: [id number] Name: CLARIBEL ALLISON Rep #:[id number] : 1955 67 From: Jimmy Clark DO PCP: Dr. Abdulaziz Ackerman MD Status:A DM [facility] Location: [place] [address] Providers Date of Admission: 11/17/22 Date of [...] FLUTTER Diagnosis Discharge Diagnosis (1) Non-ST elevation NV (NSTEMI): Status: Acute Code(s): I21.4 - Non-ST elevation (NSTEMI) myocardial infarction (2) Atrial flutter: Status: Acute Code(s): I48.92 - Unspecified atrial flutter Qualifiers: Atrial flutter type: typical Qualified Code(s): I48.3 - Typical atrial flutter (3) Essential hypertension: Status: Chronic Code(s): I10 - Essential (primary) hypertension (4) Abdominal aneurysm: Status: Acute Code(s): I71.40 - Abdominal aortic aneurysm, without rupture, unspecified Plan 1. Ico-FERJE-[id number] will be placed in observation status on [...] was seen in the emergency room at [facility] with chief complaint of precordial chest [...] Referring Physician: Abdulaziz Ackerman Performed By: Sona iKrk RDCS Abdomen/Pelvis CTA 11/17/22 11:54 IMPRESSION: Tortuosity [...] ordered:: Allergy (Not indicated) Done w/ Acute NV measure.: Yes Documented LVEF (%): 55 Discharge [...] Self Care Charges/Coding Visit Charges Inpatient E&M: 49382 Disch Hosp >30min 11/18/22 1151 <Electronically signed by Jimmy Clark DO> Cosigner Signature (if applicable): CC: Dr. Abdulaziz Ackerman MD; Dr. Jimmy Clark DO~ Signed [facility] Work Phone: 1(418) 707-775106-30-2023 Discharge summary Author Jimmy Clark [facility] November 18, 2022 11:45am Note Date/Time November 18, 2022 11:3 5am [facility] Medical Records Department [address] [place] [address] Instructions for Home/Discharge Instructions 11/18/22 1132 MR#: [id number] Acct: [id number] Name: CLARIBEL ALLISON Rep #:[id number] : 1955 67 From: Jimmy Clark DO [...] MD; Dr. Tucker Dodson MD ~ Signed [facility] Work Phone: 1([phone]) 989-261606-30-2023 Consult note Author Jamal Munoz [facility] November 18, 2022 9:53am Note Date/Time November 17, 2022 6:31 pm [facility] Medical Records Department [address] [place] [address] Consultation - Cardiology 11/17/22 1826 MR#: [id number] Acct: [id number] Name: CLARIBEL ALLISON Rep #:[id number] : 1955 67 From: Jamal Munoz MD PCP: Dr. Abdulaziz Ackerman MD Status:A DM [facility] Location: [place] [address] Assessment & Plan Assessment/Plan (1) Non-ST elevation NV (NSTEMI): PLAN: Patient has a non-ST elevation [...] noted to have an abdominal aortic aneurysm. [facility] Medical History Acute hypoxemic respiratory failure (08/09/20) Acute low back pain Anxiety and depression Arthritis Borderline type 2 diabetes mellitus Change in skin mole Chronic pain of left knee Current use of oil heaterman 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 Elevated random blood glucose level Elevated troponin (08/09/20) Essential hypertension Flu vaccine need GERD (gastroesophageal reflux disease) Heart failure with preserved ejection fraction History of pulmonary embolus (PE) (08/10/20) Hyperlipidemia Insomnia Melanoma Menopausal disorder Nicotine dependence Non-ST elevation NV (NSTEMI) Obesity Osteoarthritis of left knee Preoperative [...] % (Auto) 67.7, Lymph % (Auto) 22.9, St[place] % (Auto) 6.3, Eos % (Auto) 1.6, [...] % (Auto) 67.7, Lymph % (Auto) 22.9, [place] % (Auto) 6.3, Eos % (Auto) 1.6, [...] Ackerman MD; Dr. Tucker Dodson MD~ Signed [facility] Work Phone: 1([phone]) 148-656506-30-2023 Progress note Author Jamal Munoz [facility] November 18, 2022 9:53am Note Date/Time November 18, 2022 9:53 am [facility] Medical Records Department [address] [place] [address] Progress Note - Cardiology 11/18/22951 MR#: [id number] Acct: [id number] Name: CLARIBEL ALLISON Rep #:[id number] : 1955 67 From: Jamal Munoz MD PCP: Dr. Abdulaziz Ackerman MD Status:A DM [place] Location: [place] [address] Subjective Subjective Patient seen and eval noted. [...] 0.25 Lab / Micro Data 11/17/22 07:48 11/18/22 [...] Assessment & Plan Assessment/Plan (1) Non-ST elevation NV (NSTEMI): PLAN: Patient has a non-ST elevation [...] Cosigner Signature (if applicable): CC: ~ Signed [facility] Work Phone: [phone]) 220-101806-29-2023 Discharge summary Author Maury Flores [facility] November 17, 2022 3:25pm Note Date/Time November 17, 2022 7:44 am [facility] Medical Records Department [address] [place] [address] Emergency Department Summary 11/17/22 MR#: [id number] Acct: [id number] Name: CLARIBEL ALLISON Rep #:[id number] : 1955 67 From: Maury Bradford PCP: Dr. Abdulaziz Ackerman MD Status:A DM [facility] Location: [place] [address] HPI History of Present Illness Chief Complaint: [...] at young age. Patient history of PE 2020, she states she still been on Eliquis since then twice a day with no missed doses. She states that was her first clot. Denies nausea or vomiting. Chest pain-free currently. Stress test years ago no history of heart cath no history of NV. Prior Similar Symptoms: Yes CVD Risk Factors: Positive for Hypertension, Diabetes, Hypercholesterolemia and Smoking; Negative for Family History 1' </=55 PE Risk Factors: Positive for Prior DVT or PE [facility] Medical History Acute hypoxemic respiratory failure (08/09/20) Acute low back pain Anxiety and depression Arthritis Borderline type 2 diabetes mellitus Change in skin mole Chronic pain of left knee Current use of oil heaterman 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 Elevated random blood glucose level Elevated troponin (08/09/20) Essential hypertension Flu vaccine need GERD (gastroesophageal reflux disease) Heart failure with preserved ejection fraction History of pulmonary embolus (PE) (08/10/20) Hyperlipidemia Insomnia Melanoma Menopausal disorder Nicotine dependence Non-ST elevation NV (NSTEMI) Obesity Osteoarthritis of left knee Preoperative [...] atrial flutter to sinus rhythm. On the care mgr intermittent similar findings. She does not have any symptoms of palpitations or lightheaded symptoms. Heart rate at times will go up to 124. She denies any cardiac dysrhythmia history. She is currently on Eliquis. Cardiac work-up with added TSH and magnesium sent to the lab. Left knee x-ray also obtained. [id number] score is a 5. Troponin returns at 198 creatinine 0.84 potassium 3.2. Hemoglobin 12.9. Platelets 259. Two-view chest x-ray interpreted by myself shows no acute process. Left knee significant osteoarthritis more in the medial aspect. She was covered with aspirin, oral potassium replacement. She took her Eliquis thismorning. 0830: I spoke with hotel houseman Dr. Munoz, updated on patient's history and findings and concerns. Patient on Eliquis plans for hold Eliquis today and catheterization in the morning. Will speak with hospitalist service for admission. I spoke with Dr. Clark for admission to PCU. Re-evaluation: stable Disposition discussed with patient/family/significant other: Patient Case discussed with consulting clinician: Cardiology, Dr. Munoz, hospitalist This note was generated with Cap[employer] dictation software. It may contain incorrectwords, spelling, [...] % (Auto) 67.7 Lymph % (Auto) 22.9 [place] James % (Auto) 6.3 Eos % (Auto) 1.6 [...] Signed: Ariel Tate MD at 8:33 EDT Reading Location ID and State: [facility] [place] , Service support , Critical Care Time Critical Care Time: Yes Critical care time (excluding procedures): 30-74 minutes, Discussing w/Patient &/or Family/Machine Operator Assistant, Discussing w/Consultants, Arranging Admission or Transfer, Performing Direct Patient Care at Bedside and - (35 minutes) Discharge Plan Dx/Rx/DC Orders Clinical Impression: Atrial flutter, Non-ST elevation NV (NSTEMI), Chest pain, Tobacco use, Acute hypokalemia, History of pulmonary embolus (PE), Current use of oil heaterman 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, Angina of effort Disposition Disposition: Acute Care Hospital [facility] Discharge Date/Time: 11/17/22 09:41 What to do if you have Problems For any increased pain, shortness of breath, bleeding, nausea or vomiting, chestpain, or any unexpected problems, contact your Primary Care Provider. Call [facility] ([phone]) or report to the closest Emergency Room. Call 911 if necessary. 11/17/22 1525 <Electronically signed by Maury Bradford> Cosigner Signature (if applicable): CC: Dr. Abdulaziz Ackerman MD ~ Signed [facility] Work Phone: [phone]) 733-431506-29-2023 History and physical note Author Jimmy Clark [facility] November 17, 2022 9:14am Note Date/Time November 17, 2022 9:10 am [facility] Medical Records Department [address] [place] [address] H&P Exam - Hospitalist 11/17/22 0900 MR#: [id number] Acct: [id number] Name: CLARIBEL ALLISON Rep #:[id number] : 1955 67 From: Jimmy Clark DO PCP: Dr. Abdulaziz Ackerman MD Status:R EG ER Location: ED HPI - General General Date of Admission: 11/17/22 Date of Service: 11/17/22 Chief Complaint: Chest pain off and on x2 days HPI Narrative CLARIBEL ALLISON, is a 67 F who presents to the ER at [facility] forevaluation of chest discomfort which she [...] on PCU for non-STEMI and unstable angina. [facility] Medical History (Updated 11/17/22 @ 09:[address] Jimmy Clark DO) Acute hypoxemic respiratory failure (08/09/20) Acute low back pain Anxiety and depression Arthritis Borderline type 2 diabetes mellitus Change in skin mole Chronic pain of left knee Current use of oil heaterman 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 Elevated random blood glucose level Elevated troponin (08/09/20) Essential hypertension Flu vaccine need GERD (gastroesophageal reflux disease) Heart failure with preserved ejection fraction History of pulmonary embolus (PE) (08/10/20) Hyperlipidemia Insomnia Melanoma Menopausal disorder Nicotine dependence Non-ST elevation NV (NSTEMI) Obesity Osteoarthritis of left knee Preoperative [...] % (Auto) 67.7, Lymph % (Auto) 22.9, [place] % (Auto) 6.3, Eos % (Auto) 1.6, [...] Assessment & Plan Assessment/Plan (1) Non-ST elevation NV (NSTEMI): PLAN: Plan 1. [id number] will be placed in observation status on [...] 55 minutes Charges/Coding Visit Charges Inpatient E&M: 32085 Init Hosp L2 11/17/22 0914 <Electronically signed by Jimmy Clark DO> Cosigner Signature (if applicable): CC: Dr. Abdulaziz Ackerman MD; Dr. Jimmy Clark DO~ Signed [facility] Work Phone: [phone] Instructions* Patient Instructions* Homa Solis APRN.CNP - 01/04/2022 1:33 PM EDT Minimizing irritation [...] avoid scratching at night. [facility] History of Present illness Narrative* Homa Solis APRN.AMAIRANI - 01/04/2022 1:03 PM EDT Claribel Allison is a 66 year old female who presents for problem visit recurrent yeast infections. HPI: Second yeast infection in past 6 months. Prior to this she had not had a yeast infection for years. Treated with Diflucan at [place] and symptoms resolved. Current episode began one week ago- vaginal burning, intermittent itching. Has not noticed discharge because she has applied Desitin,Vaseline. Sometimes sits in front of fan due to so much burning. Used Dial. Uses Gain laundry detergent and dryer sheets. Does not use any feminine douches, washes or deodorants. Has not been sexually active x [address] Ackerman at [place]. Does not have diabetes. OB History No obstetric history on file. 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 A Diagnostic radioactive procedure has taken place, with no further precautions necessary other than routine body substance precautions. More information regarding radiation safety can be found using this link: [email or web address] SIGNATURE: WANDY Wheeler PATIENT NAME: lCaribel Allison DATE: October 07, 2021 TIME: 9:05 AM [facility]CON[phone] History of Present illness Narrative* WANDY Wheeler [...] 8:35 PATIENT DISCHARGED TO: Ambulatory patient, left OR department area. A Diagnostic radioactive procedure has taken place, with no further precautions necessary other than routine body substance precautions. More information regarding radiation safety can be found usingthis link: [email or web address] [email or web address]%20Medicine%[email or web address] SIGNATURE: WANDY Wheeler PATIENT NAME: Claribel Allison DATE: October 07, 2021 TIME: 9:05 AM PAGER/CONTACT #: documented in this encounterMer[facility]03-22-2021 Evaluation note* Diagnosis Onset Date Resolution Status Essential hypertension chron ic Heart failure with preserved ejection fraction chronic History of pulmonary embolus (PE) August 10, 2020 chronic Hyperlipidemia chronic Shortness of breath chronic Tobacco use [facility] Work Phone: 1([phone]) 936-613203-22-2021 Evaluation note* Diagnosis Onset Date Resolution Status Tobacco use chronic Melanoma acute Preoperative clearance acute History of pulmonary embolus (PE) August 10, [address] [facility] Work Phone: 1(240) 746-355303-22-2021 Evaluation note* Diagnosis Onset Date Resolution Status Melanoma acute Preoperative clearance acute History of pulmonary embolus (PE) August 10, [address] [facility] Work Phone: 1(113) 392-433803-22-2021 Evaluation note* Diagnosis Onset Date Resolution Status Melanoma acute Preoperative clearance acute History of pulmonary embolus (PE) August 10, 2020 chronic Menopausal disorder acute Anxiety and depression chron ic Essential hypertension chron [facility] Work Phone: 1(778) 802-229803-22-2021 Evaluation note* Diagnosis Onset Date Resolution Status Acute lumbar myofascial strain acute Acute thoracic myofascial strain acute History of pulmonary embolus (PE) August 10, 2020 acute Anxiety and depression chron ic Essential hypertension chron ic Heart failure with preserved ejection fraction chronic Hyperlipidemia chronic Insomnia chronic Shortness of breath chronic Tobacco use [facility] Work Phone: [phone]) 605-717103-22-2021 Evaluation note* Diagnosis Onset Date Resolution Status History of pulmonary embolus (PE) August 10, 2020 acute Anxiety and depression chron ic Essential hypertension chron ic Heart failure with preserved ejection fraction chronic Hyperlipidemia chronic Insomnia chronic Shortness of breath chronic Tobacco use [facility] Work Phone: 1(725) 465-102603-22-2021 Evaluation note* Diagnosis Onset Date Resolution Status [...] chronic Insomnia chronic Osteoarthritis of left knee [facility] Work Phone: Evaluation note* Diagnosis Acute vulvitis- Primary Vaginitis and vulvovaginitis, unspecified Vaginal burning Other specified symptom associated with female genital organs Vagina itching Pruritus of genital organs documented in this encounter [facility]* Diagnosis Onset Date Resolution Status Menopausal disorder acute Anxiety and depression chron ic Essential hypertension chron ic Anxiety and depression chron ic Essential hypertension chron ic Osteoarthritis of left knee chronic Acute low back pain acute Essential hypertension chron ic Muscle spasm noneactive GERD (gastroesophageal reflux disease) acute Anxiety and depression chron ic Essential hypertension chron ic [facility] Work Phone: Evaluation note* Diagnosis Onset Date Resolution Status Acute low back pain acute Essential hypertension chron ic Muscle spasm noneactive GERD (gastroesophageal reflux disease) acute Anxiety and depression chron ic Essential hypertension chron ic Cough noneactive [facility] Work Phone: Evaluation note* Diagnosis Onset Date Resolution Status Cough noneactive Borderline type 2 diabetes mellitus chronic Essential hypertension chron ic GERD (gastroesophageal reflux disease) chronic Hyperlipidemia chronic [facility] Work Phone: Evaluation note* Diagnosis Onset Date Resolution Status Borderline type 2 diabetes mellitus chronic Essential hypertension chron ic GERD (gastroesophageal reflux disease) chronic Hyperlipidemia chronic Osteoarthritis of left knee chronic Tinea pedis noneactive Acute hypokalemia acute Angina of effort acute Atrial flutter acute Chest pain acute Current use of oil heaterman 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 acute Non-ST elevation NV (NSTEMI) acute History of pulmonary embolus (PE) August 10, 2020 chronic Tobacco use [facility] Work Phone: Evaluation note* Diagnosis Onset Date Resolution Status Borderline type 2 diabetes mellitus chronic Essential hypertension chron ic GERD (gastroesophageal reflux disease) chronic Hyperlipidemia chronic Osteoarthritis of left knee chronic Tinea pedis noneactive Abdominal aneurysm acute Acute hypokalemia acute Angina of effort acute Atrial flutter acute Chest pain acute Current use of halfway 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 acute Non-ST elevation NV (NSTEMI) acute Essential hypertension chron ic History of pulmonary embolus (PE) August 10, 2020 chronic Tobacco use chronic [facility] Work Phone: Evaluation note* Diagnosis Onset Date Resolution Status Abdominal aneurysm acute Current use of oil heaterman 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 acute Essential hypertension chron ic Thoracoabdominal aortic aneurysm (TAAA) chronic Tobacco use chronic Thoracoabdominal aortic aneurysm (TAAA) chronic Abdominal aneurysm acute Debility, unspecified acute Return to work evaluation ac dennis Right renal mass acute Borderline type 2 diabetes mellitus chronic Osteoarthritis of left knee chronic Shortness of breath chronic Acute lumbar myofascial strain acute Acute thoracic myofascial strain acute [facility] Work Phone: Evaluation note* Diagnosis Onset Date Resolution Status Acute lumbar myofascial strain acute Acute thoracic myofascial strain acute [facility] Work Phone: History and physical note Author Jimmy Clark [facility] November 17, 2022 9:14am Note Date/Time November 17, 2022 9:10 am [facility] Medical Records Department [address] [place] [address] H&P Exam - Hospitalist 11/17/22 0900 MR#: [id number] Acct: [id number] Name: CLARIBEL ALLISON Rep #:[id number] : 1955 67 From: Jimmy Clark DO PCP: Dr. Abdulaziz Ackerman MD Status:R EG ER Location: ED HPI - General General Date of Admission: 11/17/22 Date of Service: 11/17/22 Chief Complaint: Chest pain off and on x2 days HPI Narrative CLARIBEL ALLISON, is a 67 F who presents to the ER at [facility] forevaluation of chest discomfort which she [...] on PCU for non-STEMI and unstable angina. [facility] Medical History (Updated 11/17/22 @ 09:[address] Jimmy Clark, ) Acute hypoxemic respiratory failure (08/09/20) Acute low back pain Anxiety and depression Arthritis Borderline type 2 diabetes mellitus Change in skin mole Chronic pain of left knee Current use of halfway 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 Elevated random blood glucose level Elevated troponin (08/09/20) Essential hypertension Flu vaccine need GERD (gastroesophageal reflux disease) Heart failure with preserved ejection fraction History of pulmonary embolus (PE) (08/10/20) Hyperlipidemia Insomnia Melanoma Menopausal disorder Nicotine dependence Non-ST elevation NV (NSTEMI) Obesity Osteoarthritis of left knee Preoperative [...] % (Auto) 67.7, Lymph % (Auto) 22.9, [place] % (Auto) 6.3, Eos % (Auto) 1.6, [...] Assessment & Plan Assessment/Plan (1) Non-ST elevation NV (NSTEMI): PLAN: Plan 1. [id number] will be placed in observation status on [...] 55 minutes Charges/Coding Visit Charges Inpatient E&M: 08425 Init Hosp L2 11/17/22 0914 <Electronically signed by Jimmy Clark DO> Cosigner Signature (if applicable): CC: Dr. Abdulaziz Ackerman MD; Dr. Jimmy Clark DO~ Signed [facility] Work Phone: History and physical note Author Iglesia Benson [facility] Note Date/Time August 21, 2024 1:22 pm [facility] Medical Records Department [address] [place] [address] H&P Exam - Hospitalist 08/21/24 1238 MR#: [id number] Acct: [id number] Name: CLARIBEL ALLISON Rep #:[id number] : 1955 69 From: Iglesia Flynn PCP: [...] shows pulmonary congestion's, central involvement and cardiomegaly. [facility] Medical History Ulcer of right lower extremity Lower extremity edema Dyspnea on exertion Diastolic heart failure Acute lumbar myofascial strain Acute thoracic myofascial strain Back pain Debility, unspecified Return to work evaluation Right renal mass Angina of effort Acute hypokalemia Chest pain Non-ST elevation NV (NSTEMI) Atrial flutter Borderline type 2 diabetes mellitus GERD (gastroesophageal reflux disease) Acute low back pain Elevated random blood glucose level Anxiety and depression Menopausal disorder Melanoma Preoperative clearance Flu vaccine need Current use of halfway 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 Obesity Elevated troponin (08/09/20) Hyperlipidemia Nicotine [...] (Auto) 77.3 H, Lymph % (Auto) 15.3L, [place] % (Auto) 5.2, Eos % (Auto) 1.0, [...] IMPRESSION: Cardiomegaly with mild congestion. Reading Location: [facility] Assessment & Plan Assessment/Plan (1) Acute exacerbation [...] or advanced directive or designated power of tip stitcher for health. His sister is next to kin. After discussion of benefits/risks procedures involved with full code, DNR CC arrest and DNR CC, the patient opted for full code. Patient does want artificial life support including intubation, tube feed, ventilator and/chest compression, central venous catheter, vasopressor and DC shock if needed Total time spent in [id number]-smuq encounter in discussion of advanced directive 17 [...] (Auto) 77.3 H, Lymph % (Auto) 15.3L, [place] % (Auto) 5.2, Eos % (Auto) 1.0, [...] IMPRESSION: Cardiomegaly with mild congestion. Reading Location: [facility] Charges/Coding Visit Charges Inpatient E&M: 55047 Init Hosp L3 Procedures Hospitalists Procedures: 18601 Advncd Care Plan 30 Min 08/21/24 1322 <Electronically signed by Iglesia Benson MD> Cosigner Signature (if applicable): CC: Dr. Abdulaziz Ackerman MD; Dr. Iglesia Benson MD~ Signed [facility] Work Phone[facility] Work Phone: [facility] Work Phone: Hospital Discharge instructionsAmbulatory Orders* Phase II, Outpatient Cardiac Rehab Location: None Selected [facility] Work Phone: Hospital Discharge instructionsAmbulatory Orders* Orthopedics Location: None Selected [facility] Work Phone: Progress note Author Sravanthi Marroquin [facility] Note Date/Time February 14, 2025 9:53am [facility] [address] [place] [address] OFFICE VISIT Date of Service: 02/14/25 MR#: [id number] Acct: [id number] Name: CLARIBEL ALLISON Rep #: [id number] : 1955 Provider: SUSANA Marroquin Age/Sex: 69/F [place] [facility] Status: Signed HPI HPI History of Present Illness Details: This is a 69-year-old lady who presents to the office today for cardiovascular hospital follow-up visit. She was last seen in our office in 2020. She has a history of hypertension, hyperlipidemia, tobacco use. She had presented to the hospital in July of 2020 with hypoxic respiratory failure. She was noted to beCovid negative but she did have bilateral pulmonary emboli and a mild troponin elevation. She had an echocardiogram performed which demonstrated moderate concentric low ventricular hypertrophy estimated ejection fraction of 60% stage II diastolic dysfunction moderate mitral annular calcification with a small mobile structure attached. She was treated with 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 which she has still been on. Her shortness of breath is essentially unchanged. And it appears that her pulmonary embolism was unprovoked. Patient presented to the emergency room on 12/10/2024 with complaints of shortness of breath. Her BNP was elevated, and consistent with CHF, she was given 60 mg IV Lasix, and admitted to the hospital for further evaluation. During her hospitalization, cardiology was consulted due to persistent pauses over 3.5 seconds. She underwent implantable defibrillator with pacemaker, as her heart function is noted to be 20% on echocardiogram in August of this year. She was started on Entresto on discharge. She states this medication was too expensive, and did not pick this up. She is not proceeding with sleep study. From a cardiac standpoint, the patient is doing well. She denies any palpitations, chest pain, pressure or heaviness. She does acknowledge SOB with exertion/hurry- this has improved from last visit. She denies Orthopnea, and PND. She does not have bleeding issues; no blood in urine, stool, or nosebleeds.She states that she has been taking warfarin twice daily. Her INR is managed by PCP. She does acknowledge fatigue. She denies myalgias, or claudication. She does have bilateral lower extremity edema. She does not have sudden weight gain. She denies lightheadedness, dizziness, syncopal or near syncopal episodes,and headaches. Intake Vital Signs 01/23/25 12:57 02/14/25 07:45 Height 5 ft 6 in 5 ft 6 in Weight: 185 lb BMI 29.8 BP 111/73 Blood Pressure Location Lt brachial Position Sitting Respiration 20 H Pulse 86 Pulse Source Monitor Pulse Oximetry (%) 95 Intake Visit Reasons: 3 WK FU Ld Teacher Required: No Is patient in pain?: No Allergies latex Allergy (Mild, Verified 02/14/25 09:45) rash trazodone Allergy (Mild, Verified 02/14/25 09:45) Tingling coconut Allergy (Unknown, Verified 02/14/25 09:45) PT UNABLE TO RESPOND-NEEDS F/U Fish Containing Products Allergy (Unknown, Verified 02/14/25 09:45) PT UNABLE TO RESPOND-NEEDS F/U propoxyphene (From Darvocet-N) Allergy (Verified 02/14/25 09:45) Hives acetaminophen (From Darvocet-N) Adverse Reaction (Intermediate, Verified 02/14/25 09:45) Nausea/Vom/Diarrhea lactose (dairy lactose) Adverse Reaction (Intermediate, Verified 02/14/25 09:45) Nausea/Vom/Diarrhea Medications ?Medication ?Instructions ?Recorded ?Confirmed ?Type potassium chloride 20 mEq 20 meq PO DAILY SUPPLEMENT # 30 tabs 11/18/24 02/14/25 Rx tablet,extended release warfarin 5 mg tablet 5 mg PO QDAY #60 tabs 02/14/25 Rx carvedilol 6.25 mg tablet 6.25 mg PO BID #180 tabs 09/1302/14/25 Rx furosemide 40 mg tablet 60 mg (1.5 x 40 mg) PO BID # 180 02/13/25 02/14/25 Rx tabs Ejection fraction %: 20 Have you fallen in the past year?: No PFSH Medical History Cardiac LV ejection fraction of 20-34% Congestive heart failure Implantable cardioverter-defibrillator (ICD) in situ Acute exacerbation of CHF (congestive heart failure) Thoracoabdominal aortic aneurysm (TAAA) Ulcer of left lower extremity with fat layer exposed Bradycardia Heart failure with reduced ejection fraction Irregular heart beat Atrial fibrillation Former smoker Ulcer of right lower extremity Lower extremity edema Dyspnea on exertion Diastolic heart failure Acute lumbar myofascial strain Acute thoracic myofascial strain Back pain Debility, unspecified Return to work evaluation Right renal mass Angina of effort Acute hypokalemia Chest pain Non-ST elevation NV (NSTEMI) Atrial flutter Borderline type 2 diabetes mellitus GERD (gastroesophageal reflux disease) Acute low back pain Elevated random blood glucose level Anxiety and depression Menopausal disorder Melanoma Preoperative clearance Flu vaccine need 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 of oil heaterman 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 Obesity Elevated troponin (08/09/20) Hyperlipidemia Nicotine [...] of cholecystectomy H/O elbow surgery Family History Mother Anxiety Arthritis Depression Hypertension Father Anxiety Arthritis Depression Hypertension Other Thyroid disorder Social History housing: house Smoking Status: Former smoker alcohol intake: never substance use type: does not use what type of physical activity do you participate in: walking frequency: 5-6 times per week ROS Const Const: Positive for fatigue; Negative for weakness, headache(s) or frequent falls Eyes Eyes: Negative for blurry vision ENT ENT: Negative for headache(s), dizziness or Nosebleed/epistaxis Cardio Chest Pain: No Palpitations: No Edema: Bilateral Muscle aches with walking: None Resp Respiratory: Positive for SOB with activity; Negative for SOB at rest or SOB orthopnea\SOB lying down GI GI: Negative nausea, vomiting, heartburn, bright, red blood in stools or black,tarry stools : Negative for hematuria Neuro Neuro: Negative for dizziness, lightheadedness, near syncope, syncope, frequent falls, headache(s), weakness or blurry vision Endo Endo: Positive for fatigue Cardiology Exam Const Appearance: cooperative, healthy appearing, no acute distress, well developed and well groomed Nutritional Appearance: average body habitus, well nourished and obese Orientation: alert, awake and oriented x3 Head Head: normal to inspection, normocephalic and atraumatic Ears: hearing grossly normal bilaterally and external ears normal Nose: external nose normal and nares normal Face and Sinus: face symmetric Eyes General: appearance normal, both eyes and all related structures Eyelids: eyelids normal Conjunctivae: conjunctivae normal Pupils: PERRL EOM: EOM intact bilaterally Neck Neck: normal visual inspection, trachea midline and no JVD JVD: +5 Carotids: normal carotid upstroke and bounding pulses Chest Chest inspection: normal inspection of the chest, symmetric chest movement and normal respiratory effort Auscultation: Bilateral: Diminished Lung Sounds Cardio Palpation: normal PMI Rhythm: irregularly irregular Heart sounds: S1 normal, S2 normal and normal, physiologic split S2; Negative rub, gallop or murmur GI GI: normal to inspection, soft and obese Neuro General: patient alert, patient awake, patient oriented x3, gait normal, moves all extremities and no focal sensory deficit Skin Skin: no rashes or lesions noted Extremities Pulses: Normal: Right Posterior Tibial Pulse, Left Posterior Tibial Pulse, RightRadial Pulse and Left Radial Pulse Lower Extremity Edema: Trace: Bilateral (color changes) Musculoskel Musculoskeletal: No joint tenderness Psych Psychological: normal affect Supplemental Info Supplemental Information Echocardiogram 08/21/2024: Interpretation Summary Normal LV size. The left ventricular ejection fraction is 20 %. There is severe global hypokinesis of the left ventricle. The left atrium is moderately enlarged. Mild-Moderate (1-2+) eccentric mitral valve insufficiency. Mildly dilated aortic root. The right atrium is mildly enlarged. Cardiac catheterization 11/18/2022: CONCLUSIONS Non obstructive coronary arteries Normal LV size, wall motion,and systolic function RECOMMENDATIONS Medical therapy Diagnostics: Electrocardiogram Echocardiogram Cardiac Catheterization Pacemaker Check Chest X-Ray Chest CTA Pulmonary: Pulmonary Function Test Past Visits: Cardiology Visit Today Assessment and Plan Assessment and Plan (1) Cardiac LV ejection fraction of 20-34%: Status: Acute Plan: Patient's echocardiogram on 08/21/2024 demonstrated ejection fraction of 20%. This was reviewed with patient. She was started on carvedilol 6.25 mg twice daily at her last office visit. Would like to obtain a limited echocardiogram toreassess her left ventricular systolic function. Depending on results, further recommendations will be made. Did discuss adding low dose lisinopril, and she does not wish to start any new medications at this time. She will continue carvedilol 6.25mg twice daily, and Lasix 60mg twice daily. She states Entresto was too expensive. She will continue to monitor for any concerning symptoms. (2) Implantable cardioverter-defibrillator (ICD) in situ: Status: Acute Plan: Patient does have an ICD. Patient's ICD interrogation from 01/23/2025 showed AT/AF burden 100%, no VT/VF episodes. Presenting rhythm shows ongoing atrial flutter at 107 bpm. AP 0%, SAW RUNNER less than 1%. Estimated battery life 10 years. She was started on carvedilol 6.25 mg twice daily at her previous appointment. She will continue with regularly scheduled ICD interrogations (3) Congestive heart failure: Status: Chronic Plan: Patient has a history of congestive heart failure. She appears stable at this time, denies any recent symptoms or events. She will continue Lasix 60 mg twicedaily, along with monitoring for any concerning symptoms. Would like to obtain lab work in 1 week to further assess her kidney function, and electrolytes. Depending on results, further recommendations will be made. (4) Atrial flutter: Status: Acute Plan: Patient is in persistent atrial flutter. Her echocardiogram from 08/21/2024 demonstrated ejection fraction of 20%, and moderately enlarged left atrium. Her ICD interrogation from 01/23/2025 demonstrated atrial flutter at 107 bpm, and an atrial burden of 100%. She was asked to start carvedilol 6.25 mg twice daily ather previous office visit. Her heart rate today in the office is 86. She also states that she was taking warfarin 5 mg twice daily. She was strongly encouraged to decrease this to once a day. We will take over managing her INR. She will continue warfarin, and maintain a therapeutic INR of 2.0-3.0. She willcontinue to monitor for any concerning symptoms of atrial fibrillation/flutter. (5) Hyperlipidemia: Status: Chronic Qualifiers: Hyperlipidemia type: pure hypercholesterolemia Qualified Code(s): E78.00 - Pure hypercholesterolemia, unspecified Plan: Patient has a history of hyperlipidemia. Her most recent lipid panel from 12/11/2024: Cholesterol 84, HDL 21, LDL 50, triglycerides 68. At this time, she will continue with aggressive risk factor and lifestyle modifications. (6) Hypersomnolence: Status: Acute Plan: Patient acknowledges fatigue, and states she does not sleep well at all. Her STOP-BANG score was 3, which indicates at risk for obstructive sleep apnea, at her last office visit. A sleep study was ordered. She states today that she doesnot wish to proceed with the sleep study. Orders: Orders Echo, Limited Study Today R06.02 - Shortness of breath, R93.1 - Abnormal findings on diagnostic imaging of heart and coronary circulation Basic Metabolic Profile (BMP) 1 Week R06.09 - Other forms of dyspnea Pro- Brain NATRIURETIC PEPTIDE 1 Week R06.02 - Shortness of breath CBC W/Diff, Automated 1 Week R06.02 - Shortness of breath Prothrombin Time w/INR 1 Week I48.92 - Unspecified atrial flutter Plan Details Additional Comments: Patient will follow-up in 3 months, or sooner if needed. Thank you for allowing me to participate in the care of your patient. Please donot hesitate to call if any issues arise. This note was generated using a voice recognition system and there may be incorrect words, spelling, or punctuation that were not noted when reviewing theoffice note prior to saving. Portions of this documentation were copied and pasted from previous office visitnotes to provide cohesive continuity of the history. The note has been reviewed,edited, and updated, as necessary. 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) Coding Level of Care Code Off vis,est,level 4 Diagnoses Cardiac LV ejection fraction of 20-34% R93.1 Implantable cardioverter-defibrillator (ICD) in situ Z95.810 Congestive heart failure I50.9 Atrial flutter I48.92 Pure hypercholesterolemia E78.00 Hyperlipidemia type: pure hypercholesterolemia Hypersomnolence G47.10 Coding Level of Care Code Off vis,est,level 4 Diagnoses Cardiac LV ejection fraction of 20-34% R93.1 Implantable cardioverter-defibrillator (ICD) in situ Z95.810 Congestive heart failure I50.9 Atrial flutter I48.92 Pure hypercholesterolemia E78.00 Hyperlipidemia type: pure hypercholesterolemia Hypersomnolence G47.10 Clinical Quality Measures Falls Risk Screening/Assistive Devices Have you fallen in the past year?: No Cardiac Ejection fraction %: 20 02/14/25 1020 <Electronically signed by Sravanthi Marroquin NP [employer] WE[employer] DEVELOPER-C> Date _ Sravanthi Marroquin NP [employer] DEVELOPER-C Cosigner Signature: Date (if applicable) CC: ~ [place] [facility] Work Phone: Summary Purpose Family History Relationship Condition Age at Onset Recorded Date/T carter Not Specified Anxiety Unknown Arthritis Unknown Depression Unknown Hypertension Unknown Disorder of thyroid Unknown Relationship Condition Age at Onset Recorded Date/T carter Not Specified Disorder of thyroid Unknown mother Anxiety Unknown Arthritis Unknown Depression Unknown Hypertension Unknown father Anxiety Unknown Advance Directives Advance Directive Response Recorded Date/ Time Living Will No March 30 10:18am Power of Reserves Clerk No March 30, 2021 10:18am Advance Directive Response Recorded Date/ Time Living Will No September 27, 2021 1: 20pm Power of Reserves Clerk No September 27, 2021 1:20pm Advance Directive Response Recorded Date/ Time Living Will No December 03, 2021 11:04am Power of Reserves Clerk No December 03 11:04am Advance Directive Response Recorded Date/ Time Living Will No December 03, 2021 10:04am Power of Reserves Clerk No December 03 10:04am Advance Directive Response Recorded Date/ Time Living Will No November 17, 2022 7:40am Power of Reserves Clerk No November 17 7:40am Advance Directive Response Recorded Date/ Time Name of Medical Power of Reserves Clerk Ct Ramirez November 17, 2022 10:26am Living Will Yes November 17, 2022 10:26am Power of Reserves Clerk Yes November 17 10:26am Advance Directive Response Recorded Date/ Time Living Will Yes November 17, 2022 9:26am Power of Reserves Clerk Yes November 17 9:26am Advance Directive Response Recorded Date/ Time Living Will Yes November 17, 2022 10:26am Power of Reserves Clerk Yes November 17 10:26am Advance Directive Response Recorded Date/ Time Living Will Yes April 21 1:48am Do you have a Healthcare Power of Reserves Clerk? Yes April 21, 2024 1:48am Living Will Yes May 22 1:25am Do you have a Healthcare Power of Reserves Clerk? Yes May 22, 2024 1:25am Advance Directive Response Recorded Date/ Time Living Will Yes April 21 1:48am Do you have a Healthcare Power of Reserves Clerk? Yes April 21, 2024 1:48am Living Will Yes May 22 1:25am Do you have a Healthcare Power of Reserves Clerk? Yes May 22, 2024 1:25am Living Will No August 21, 2024 11:14am Do you have a Healthcare Power of Reserves Clerk? No August 21, 2024 11:14am Advance Directive Response Recorded Date/ Time Living Will Yes April 21 1:48am Do you have a Healthcare Power of Reserves Clerk? Yes April 21, 2024 1:48am Living Will Yes May 22 1:25am Do you have a Healthcare Power of Reserves Clerk? Yes May 22, 2024 1:25am Living Will No August 21, 2024 2:46pm Do you have a Healthcare Power of Reserves Clerk? No August 21, 2024 2:46pm Advance Directive Response Recorded Date/ Time Living Will Yes August 20, 2024 12:36am Do you have a Healthcare Power of Reserves Clerk? Yes August 20, 2024 12:36am Living Will Yes May 22 1:25am Do you have a Healthcare Power of Reserves Clerk? Yes May 22, 2024 1:25am Living Will No August 21, 2024 2:46pm Do you have a Healthcare Power of Reserves Clerk? No August 21, 2024 2:46pm Living Will Yes September 19, 2024 12 :14am Do you have a Healthcare Power of Reserves Clerk? Yes September 19, 2024 12:14am Advance Directive Response Recorded Date/ Time Living Will Yes August 20, 2024 12:36am Do you have a Healthcare Power of Reserves Clerk? Yes August 20, 2024 12:36am Living Will Yes May 22 1:25am Do you have a Healthcare Power of Reserves Clerk? Yes May 22, 2024 1:25am Living Will No August 21, 2024 2:46pm Do you have a Healthcare Power of Reserves Clerk? No August 21, 2024 2:46pm Living Will Yes September 19, 2024 12 :14am Do you have a Healthcare Power of Reserves Clerk? Yes September 19, 2024 12:14am Do you have a Healthcare Power of Reserves Clerk? Yes December 10, 2024 6:15pm Advance Directive Response Recorded Date/ Time Living Will Yes August 20, 2024 12:36am Do you have a Healthcare Power of Reserves Clerk? Yes August 20, 2024 12:36am Living Will No August 21, 2024 2:46pm Do you have a Healthcare Power of Reserves Clerk? No August 21, 2024 2:46pm Living Will Yes September 19, 2024 12 :14am Do you have a Healthcare Power of Reserves Clerk? Yes September 19, 2024 12:14am Do you have a Healthcare Power of Reserves Clerk? Yes December 11, 2024 12:13am Advance Directive Response Recorded Date/ Time Living Will Yes August 20, 2024 12:36am Do you have a Healthcare Power of Reserves Clerk? Yes August 20, 2024 12:36am Living Will Yes September 19, 2024 12 :14am Do you have a Healthcare Power of Reserves Clerk? Yes September 19, 2024 12:14am Do you have a Healthcare Power of Reserves Clerk? Yes December 11, 2024 12:13am Advance Directive Response Recorded Date/ Time Living Will Yes September 19, 2024 12 :14am Do you have a Healthcare Power of Reserves Clerk? Yes September 19, 2024 12:14am Do you have a Healthcare Power of Reserves Clerk? Yes December 11, 2024 12:13am Advance Directive Response Recorded Date/ Time Do you have a Healthcare Power of Reserves Clerk? Yes December 11, 2024 12:13am Advance Directive Response Recorded Date/ Time Do you have a Healthcare Power of Reserves Clerk? Yes December 10, 2024 11:13pm Do you have a Healthcare Power of Reserves Clerk? Yes March 17, 2025 7:16pm Name of Medical Power of Reserves Clerk Ct Ramirez March 17, 2025 7:16pm Chief Complaint and Reason for Visit Chief [...] Atrial flutter Chest pain Current use of oil heaterman 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 Non-ST elevation NV (NSTEMI) History of pulmonary embolus (PE) Tobacco [...] Atrial flutter Chest pain Current use of halfway 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 Non-ST elevation NV (NSTEMI) Essential hypertension History of pulmonary embolus (PE) Tobacco use Chief Complaint NSTEMI, ATRIAL FLUTT ER NSTEMI, ATRIAL FLUTTER NSTEMI, ATRIAL FLUTTER NSTEMI, ATRIAL FLUTTER NSTEMI, ATRIAL FLUTTER Consult, referral from cardiology RETURN TO WORK EVAL/RX HERE WORK RESTRICTIONS MID/RIGHT SIDE BACK PAIN back pain Reason for Visit Abdominal aneurysm Current use of oil heaterman 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 Essential hypertension Thoracoabdominal aortic aneurysm (TAAA) [...] FOLLOW UP-PER DR MEKA Palacios 2024 9:34am Reason for Visit Admit Date [...] 21, 2024 12:2 6pm Current use of oil heaterman 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 August 21, 2024 12:26pm Microcytic anemia [...] 21, 2024 12:2 6pm Current use of halfway 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 August 21, 2024 12:26pm Heart failure [...] AFIB RVR August 25, 2024 2:19 am [facility] FU September 06, 2024 8:3 5am 2 M FU September 27, 2024 8:53am Reason for Visit [...] 21, 2024 12:2 6pm Current use of oil heaterman 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 August 21, 2024 12:26pm Microcytic anemia [...] AFIB RVR August 25, 2024 2:19 am [facility] FU September 06, 2024 8:3 5am [...] AFIB RVR August 25, 2024 2:19 am [facility] FU September 06, 2024 8:3 5am [...] 21, 2024 12:2 6pm Current use of halfway 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 August 21, 2024 12:26pm Microcytic anemia [...] Osteoarthritis of left knee October 25 8:04am Chief Complaint Admit Date CHF EXA, AFIB RVR August 21, 2024 [...] AFIB RVR August 25, 2024 2:19 am WC FU September 06, 2024 8:3 5am 2 M FU September 27, 2024 8:53am PAIN IN LEFT KNEE October 25, 2024 8:04a m BIT BY HORSE FLY - YELLOW PUSS November 25, 2024 12:28pm SOB, CP December 10, 2024 9:32 pm HF EXAC, PAF RVR December 10, 2024 9:33 pm Reason for Visit Admit Date Anasarca August 21, 2024 12:2 6pm Atrial flutter August 21, 2024 12:2 6pm Current use of halfway 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 August 21, 2024 12:26pm Microcytic anemia [...] Osteoarthritis of left knee October 25 8:04am Insect bite November 25, 2024 12:28 pm Atrial fibrillation December 10, 2024 9:33 pm Congestive heart failure December 10, 2024 9:33pm Chief Complaint Admit Date CHF EXA, AFIB RVR August 21, 2024 [...] AFIB RVR August 25, 2024 2:19 am [facility] FU September 06, 2024 8:3 5am 2 M FU September 27, 2024 8:53am PAIN IN LEFT KNEE October 25, 2024 8:04a m BIT BY HORSE FLY - YELLOW PUSS November 25, 2024 12:28pm SOB, CP December 10, 2024 9:32 pm HF EXAC, PAF RVR December 10, 2024 9:33 pm HF EXAC, PAF RVR December 11, 2024 1:45 pm HF EXAC, PAF RVR December 12, 2024 4:36 am HF EXAC, PAF RVR December 13, 2024 12:0 6am HF EXAC, PAF RVR December 13, 2024 8:21 am HF EXAC, PAF RVR December 14, 2024 10:5 2am HF EXAC, PAF RVR December 14, 2024 12:5 3pm Reason for Visit Admit Date Anasarca August 21, 2024 12:2 6pm Atrial flutter August 21, 2024 12:2 6pm Current use of oil heaterman 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 August 21, 2024 12:26pm Microcytic anemia [...] Osteoarthritis of left knee October 25 8:04am Insect bite November 25, 2024 12:28 pm Acute exacerbation of CHF (congestive he art failure) December 10, 2024 9:33pm Atrial fibrillation December 10, 2024 9:33 pm Cardiac LV ejection fraction of 20-34% J sadie 2024 9:33pm Congestive heart failure December 10, 2024 9:33pm Essential hypertension December 10, 2024 9 :33pm Thoracoabdominal aortic aneurysm (TAAA) December 10, 2024 9:33pm Chief Complaint Admit Date CHF EXA, AFIB RVR August 21, 2024 [...] AFIB RVR August 25, 2024 2:19 am [facility] September 06, 2024 8:3 5am 2 M September 27, 2024 8:53am PAIN IN LEFT KNEE October 25, 2024 8:04a m BIT BY HORSE FLY - YELLOW PUSS November 25, 2024 12:28pm SOB, CP December 10, 2024 9:32 pm HF EXAC, PAF RVR December 10, 2024 9:33 pm HF EXAC, PAF RVR December 11, 2024 1:45 pm HF EXAC, PAF RVR December 12, 2024 4:36 am HF EXAC, PAF RVR December 13, 2024 12:0 6am HF EXAC, PAF RVR December 13, 2024 8:21 am HF EXAC, PAF RVR December 14, 2024 10:5 2am HF EXAC, PAF RVR December 14, 2024 12:5 3pm Referral Order December 16, 2024 6:01 pm Chief Complaint Admit Date [facility] September 06, 2024 8:3 5am 2 M September 27, 2024 8:53am PAIN IN LEFT KNEE October 25, 2024 8:04a m BIT BY HORSE FLY - YELLOW PUSS November 25, 2024 12:28pm SOB, CP December 10, 2024 9:32 pm HF EXAC, PAF RVR December 10, 2024 9:33 pm HF EXAC, PAF RVR December 11, 2024 1:45 pm HF EXAC, PAF RVR December 12, 2024 4:36 am HF EXAC, PAF RVR December 13, 2024 12:0 6am HF EXAC, PAF RVR December 13, 2024 8:21 am HF EXAC, PAF RVR December 14, 2024 10:5 2am HF EXAC, PAF RVR December 14, 2024 12:5 3pm Referral Order December 16, 2024 6:01 pm 10 DAY WOUND CHECK December 23, 2024 12: 59pm Reason for Visit Admit Date Diastolic heart failure September 06, 2024 8:35am Dyspnea on exertion September 06, 2024 8:3 5am Lower extremity edema September 06, 2024 8 :35am Ulcer of right lower extremity August 8:35am Atrial fibrillation September 06, 2024 8:3 5am Essential hypertension September 06, 2024 8:35am Insomnia September 27, 2024 8:53am Ulcer of left lower extremity with fat l michelle exposed September 27, 2024 8:53am Atrial fibrillation September 27, 2024 8:53am Congestive heart failure September 27, 2024 8 :53am Essential hypertension September 27, 2024 8:5 3am Bilateral knee pain October 25, 2024 8:04a m Osteoarthritis of left knee October 25 8:04am Insect bite November 25, 2024 12:28 pm Acute exacerbation of CHF (congestive he art failure) December 10, 2024 9:33pm Atrial fibrillation December 10, 2024 9:33 pm Cardiac LV ejection fraction of 20-34% J sadie 2024 9:33pm Congestive heart failure December 10, 2024 9:33pm Essential hypertension December 10, 2024 9 :33pm Thoracoabdominal aortic aneurysm (TAAA) December 10, 2024 9:33pm Atrial flutter December 23, 2024 12: 59pm Implantable cardioverter-defibrillator ( ICD) in situ December 23, 2024 12:59pm Heart failure with preserved ejection fr action December 23, 2024 12:59pm Chief Complaint Admit Date [facility] FU September 06, 2024 8:3 5am 2 M FU September 27, 2024 8:53am PAIN IN LEFT KNEE October 25, 2024 8:04a m BIT BY HORSE FLY - YELLOW PUSS November 25, 2024 12:28pm SOB, CP December 10, 2024 9:32 pm HF EXAC, PAF RVR December 10, 2024 9:33 pm HF EXAC, PAF RVR December 11, 2024 1:45 pm HF EXAC, PAF RVR December 12, 2024 4:36 am HF EXAC, PAF RVR December 13, 2024 12:0 6am HF EXAC, PAF RVR December 13, 2024 8:21 am Pacer Check Remote December 14, 2024 8:38 am HF EXAC, PAF RVR December 14, 2024 10:5 2am HF EXAC, PAF RVR December 14, 2024 12:5 3pm Referral Order December 16, 2024 6:01 pm Pacer Check Remote December 18, 2024 5:25 am Pacer Check Remote December 23, 2024 9:0 0am 10 DAY WOUND CHECK December 23, 2024 12: 59pm Chief Complaint Admit Date 2 M FU September 27, 2024 8:53am PAIN IN LEFT KNEE October 25, 2024 8:04a m BIT BY HORSE FLY - YELLOW PUSS November 25, 2024 12:28pm SOB, CP December 10, 2024 9:32 pm HF EXAC, PAF RVR December 10, 2024 9:33 pm HF EXAC, PAF RVR December 11, 2024 1:45 pm HF EXAC, PAF RVR December 12, 2024 4:36 am HF EXAC, PAF RVR December 13, 2024 12:0 6am HF EXAC, PAF RVR December 13, 2024 8:21 am Pacer Check Remote December 14, 2024 8:38 am HF EXAC, PAF RVR December 14, 2024 10:5 2am HF EXAC, PAF RVR December 14, 2024 12:5 3pm Referral Order December 16, 2024 6:01 pm Pacer Check Remote December 18, 2024 5:25 am Pacer Check Remote December 23, 2024 9:0 0am 10 DAY WOUND CHECK December 23, 2024 12: 59pm MED FU January 13, 2025 12 :59pm Reason for Visit Admit Date Insomnia September 27, 2024 8:53am Ulcer of left lower extremity with fat l michelle exposed September 27, 2024 8:53am Atrial fibrillation September 27, 2024 8:53am Congestive heart failure September 27, 2024 8 :53am Essential hypertension September 27, 2024 8:5 3am Bilateral knee pain October 25, 2024 8:04a m Osteoarthritis of left knee October 25 8:04am Insect bite November 25, 2024 12:28 pm Acute exacerbation of CHF (congestive he art failure) December 10, 2024 9:33pm Atrial fibrillation December 10, 2024 9:33 pm Cardiac LV ejection fraction of 20-34% J sadie 2024 9:33pm Congestive heart failure December 10, 2024 9:33pm Essential hypertension December 10, 2024 9 :33pm Thoracoabdominal aortic aneurysm (TAAA) December 10, 2024 9:33pm Atrial flutter December 23, 2024 12: 59pm Implantable cardioverter-defibrillator ( ICD) in situ December 23, 2024 12:59pm Heart failure with preserved ejection fr action December 23, 2024 12:59pm Chief Complaint Admit Date 2 M FU September 27, 2024 8:53am PAIN IN LEFT KNEE October 25, 2024 8:04a m BIT BY HORSE FLY - YELLOW PUSS November 25, 2024 12:28pm SOB, CP December 10, 2024 9:32 pm HF EXAC, PAF RVR December 10, 2024 9:33 pm HF EXAC, PAF RVR December 11, 2024 1:45 pm HF EXAC, PAF RVR December 12, 2024 4:36 am HF EXAC, PAF RVR December 13, 2024 12:0 6am HF EXAC, PAF RVR December 13, 2024 8:21 am Pacer Check Remote December 14, 2024 8:38 am HF EXAC, PAF RVR December 14, 2024 10:5 2am HF EXAC, PAF RVR December 14, 2024 12:5 3pm Referral Order December 16, 2024 6:01 pm Pacer Check Remote December 18, 2024 5:25 am Pacer Check Remote December 23, 2024 9:0 0am 10 DAY WOUND CHECK December 23, 2024 12: 59pm MED FU January 13, 2025 12 :59pm 6 W PPM/BRAYAN @ 1 January 23, 2025 12:40pm Reason for Visit Admit Date Congestive heart failure September 27, 2024 8 :53am Insomnia September 27, 2024 8:53am Ulcer of left lower extremity with fat l michelle exposed September 27, 2024 8:53am Atrial fibrillation September 27, 2024 8:53am Essential hypertension September 27, 2024 8:5 3am Bilateral knee pain October 25, 2024 8:04a m Osteoarthritis of left knee October 25 8:04am Insect bite November 25, 2024 12:28 pm Congestive heart failure December 10, 2024 9:33pm Acute exacerbation of CHF (congestive he art failure) December 10, 2024 9:33pm Atrial fibrillation December 10, 2024 9:33 pm Cardiac LV ejection fraction of 20-34% J sadie 2024 9:33pm Essential hypertension December 10, 2024 9 :33pm Thoracoabdominal aortic aneurysm (TAAA) December 10, 2024 9:33pm Atrial flutter December 23, 2024 12: 59pm Implantable cardioverter-defibrillator ( ICD) in situ December 23, 2024 12:59pm Heart failure with preserved ejection fr action December 23, 2024 12:59pm Atrial flutter January 13, 2025 12 :59pm Anxiety and depression January 13, 2025 12:59pm Bilateral knee pain January 13, 2025 12 :59pm Borderline type 2 diabetes mellitus Augu 2024 12:59pm Congestive heart failure January 13 12:59pm Insomnia January 13, 2025 12 :59pm Chief Complaint Admit Date 2 M FU September 27, 2024 8:53am PAIN IN LEFT KNEE October 25, 2024 8:04a m BIT BY HORSE FLY - YELLOW PUSS November 25, 2024 12:28pm SOB, CP December 10, 2024 9:32 pm HF EXAC, PAF RVR December 10, 2024 9:33 pm HF EXAC, PAF RVR December 11, 2024 1:45 pm HF EXAC, PAF RVR December 12, 2024 4:36 am HF EXAC, PAF RVR December 13, 2024 12:0 6am HF EXAC, PAF RVR December 13, 2024 8:21 am Pacer Check Remote December 14, 2024 8:38 am HF EXAC, PAF RVR December 14, 2024 10:5 2am HF EXAC, PAF RVR December 14, 2024 12:5 3pm Referral Order December 16, 2024 6:01 pm Pacer Check Remote December 18, 2024 5:25 am Pacer Check Remote December 23, 2024 9:0 0am 10 DAY WOUND CHECK December 23, 2024 12: 59pm MED FU January 13, 2025 12 :59pm 6 W PPM/BRAYAN @ 1 January 23, 2025 12:40pm INT LAB ORDERS January 23, 2025 1:49pm Reason for Visit Admit Date Congestive heart failure September 27, 2024 8 :53am Insomnia September 27, 2024 8:53am Ulcer of left lower extremity with fat l michelle exposed September 27, 2024 8:53am Atrial fibrillation September 27, 2024 8:53am Essential hypertension September 27, 2024 8:5 3am Bilateral knee pain October 25, 2024 8:04a m Osteoarthritis of left knee October 25 8:04am Insect bite November 25, 2024 12:28 pm Cardiac LV ejection fraction of 20-34% J sadie 2024 9:33pm Congestive heart failure December 10, 2024 9:33pm Acute exacerbation of CHF (congestive he art failure) December 10, 2024 9:33pm Atrial fibrillation December 10, 2024 9:33 pm Essential hypertension December 10, 2024 9 :33pm Thoracoabdominal aortic aneurysm (TAAA) December 10, 2024 9:33pm Atrial flutter December 23, 2024 12: 59pm Implantable cardioverter-defibrillator ( ICD) in situ December 23, 2024 12:59pm Heart failure with preserved ejection fr action December 23, 2024 12:59pm Atrial flutter January 13, 2025 12 :59pm Anxiety and depression January 13, 2025 12:59pm Bilateral knee pain January 13, 2025 12 :59pm Borderline type 2 diabetes mellitus Augu 2024 12:59pm Congestive heart failure January 13 12:59pm Insomnia January 13, 2025 12 :59pm Implantable cardioverter-defibrillator ( ICD) in situ January 23, 2025 12:40pm Congestive heart failure January 23, 2025 12:40pm Atrial flutter January 23, 2025 12:40pm Cardiac LV ejection fraction of 20-34% S eptember 2024 12:40pm Hypersomnolence January 23, 2025 12:40pm Hyperlipidemia January 23, 2025 12:40pm Shortness of breath January 23, 2025 12:40pm Chief Complaint Admit Date PAIN IN LEFT KNEE October 25, 2024 8:04a m BIT BY HORSE FLY - YELLOW PUSS November 25, 2024 12:28pm SOB, CP December 10, 2024 9:32 pm HF EXAC, PAF RVR December 10, 2024 9:33 pm HF EXAC, PAF RVR December 11, 2024 1:45 pm HF EXAC, PAF RVR December 12, 2024 4:36 am HF EXAC, PAF RVR December 13, 2024 12:0 6am HF EXAC, PAF RVR December 13, 2024 8:21 am Pacer Check Remote December 14, 2024 8:38 am HF EXAC, PAF RVR December 14, 2024 10:5 2am HF EXAC, PAF RVR December 14, 2024 12:5 3pm Referral Order December 16, 2024 6:01 pm Pacer Check Remote December 18, 2024 5:25 am Pacer Check Remote December 23, 2024 9:0 0am 10 DAY WOUND CHECK December 23, 2024 12: 59pm MED FU January 13, 2025 12 :59pm Pacer Check Remote January 23, 2025 9:00am 6 W PPM/BRAYAN @ 1 January 23, 2025 12:40pm INT LAB ORDERS January 23, 2025 1:49pm Pacer Check Remote January 24, 2025 3:31am Reason for Visit Admit Date Bilateral knee pain October 25, 2024 8:04a m Osteoarthritis of left knee October 25 8:04am Insect bite November 25, 2024 12:28 pm Cardiac LV ejection fraction of 20-34% J sadie 2024 9:33pm Congestive heart failure December 10, 2024 9:33pm Acute exacerbation of CHF (congestive he art failure) December 10, 2024 9:33pm Atrial fibrillation December 10, 2024 9:33 pm Essential hypertension December 10, 2024 9 :33pm Thoracoabdominal aortic aneurysm (TAAA) December 10, 2024 9:33pm Atrial flutter December 23, 2024 12: 59pm Implantable cardioverter-defibrillator ( ICD) in situ December 23, 2024 12:59pm Heart failure with preserved ejection fr action December 23, 2024 12:59pm Atrial flutter January 13, 2025 12 :59pm Anxiety and depression January 13, 2025 12:59pm Bilateral knee pain January 13, 2025 12 :59pm Borderline type [address] 2024 12:59pm Congestive heart failure January 13 12:59pm Insomnia January 13, 2025 12 :59pm Implantable cardioverter-defibrillator ( ICD) in situ January 23, 2025 12:40pm Congestive heart failure January 23, 2025 12:40pm Atrial flutter January 23, 2025 12:40pm Cardiac LV ejection fraction of 20-34% S [id number] 12:40pm Hypersomnolence January 23, 2025 12:40pm Hyperlipidemia January 23, 2025 12:40pm Shortness of breath January 23, 2025 12:40pm Chief Complaint Admit Date PAIN IN LEFT KNEE October 25, 2024 8:04a m BIT BY HORSE FLY - YELLOW PUSS November 25, 2024 12:28pm SOB, CP December 10, 2024 9:32 pm HF EXAC, PAF RVR December 10, 2024 9:33 pm HF EXAC, PAF RVR December 11, 2024 1:45 pm HF EXAC, PAF RVR December 12, 2024 4:36 am HF EXAC, PAF RVR December 13, 2024 12:0 6am HF EXAC, PAF RVR December 13, 2024 8:21 am Pacer Check Remote December 14, 2024 8:38 am HF EXAC, PAF RVR December 14, 2024 10:5 2am HF EXAC, PAF RVR December 14, 2024 12:5 3pm Referral Order December 16, 2024 6:01 pm Pacer Check Remote December 18, 2024 5:25 am Pacer Check Remote December 23, 2024 9:0 0am 10 DAY WOUND CHECK December 23, 2024 12: 59pm MED FU January 13, 2025 12 :59pm Pacer Check Remote January 23, 2025 9:00am 6 W PPM/BRAYAN @ 1 January 23, 2025 12:40pm INT LAB ORDERS January 23, 2025 1:49pm Pacer Check Remote January 24, 2025 3:31am E-ORDER February 12, 2025 9:08am 3 WK FU February 14, 2025 8:55am Reason for Visit Admit Date Bilateral knee pain October 25, 2024 8:04a m Osteoarthritis of left knee October 25 8:04am Insect bite November 25, 2024 12:28 pm Cardiac LV ejection fraction of 20-34% J sadie 2024 9:33pm Congestive heart failure December 10, 2024 9:33pm Acute exacerbation of CHF (congestive he art failure) December 10, 2024 9:33pm Atrial fibrillation December 10, 2024 9:33 pm Essential hypertension December 10, 2024 9 :33pm Thoracoabdominal aortic aneurysm (TAAA) December 10, 2024 9:33pm Atrial flutter December 23, 2024 12: 59pm Implantable cardioverter-defibrillator ( ICD) in situ December 23, 2024 12:59pm Heart failure with preserved ejection fr action December 23, 2024 12:59pm Atrial flutter January 13, 2025 12 :59pm Anxiety and depression January 13, 2025 12:59pm Bilateral knee pain January 13, 2025 12 :59pm Borderline type 2 diabetes mellitus Augu 2024 12:59pm Congestive heart failure January 13 12:59pm Insomnia January 13, 2025 12 :59pm Implantable cardioverter-defibrillator ( ICD) in situ January 23, 2025 12:40pm Congestive heart failure January 23, 2025 12:40pm Atrial flutter January 23, 2025 12:40pm Cardiac LV ejection fraction of 20-34% [facility] 12:40pm Hypersomnolence January 23, 2025 12:40pm Hyperlipidemia January 23, 2025 12:40pm Shortness of breath January 23, 2025 12:40pm Atrial flutter February 14, 2025 8:55am Cardiac LV ejection fraction of 20-34% S epteer 2024 8:55am Hypersomnolence February 14, 2025 8:55am Implantable cardioverter-defibrillator ( ICD) in situ Carla 26th, 2025 8:55am Congestive heart failure February 14, 2025 8:55am Hyperlipidemia February 14, 2025 8:55am Chief Complaint Admit Date PAIN IN LEFT KNEE October 25, 2024 8:04a m BIT BY HORSE FLY - YELLOW PUSS November 25, 2024 12:28pm SOB, CP December 10, 2024 9:32 pm HF EXAC, PAF RVR December 10, 2024 9:33 pm HF EXAC, PAF RVR December 11, 2024 1:45 pm HF EXAC, PAF RVR December 12, 2024 4:36 am HF EXAC, PAF RVR December 13, 2024 12:0 6am HF EXAC, PAF RVR December 13, 2024 8:21 am Pacer Check Remote December 14, 2024 8:38 am HF EXAC, PAF RVR December 14, 2024 10:5 2am HF EXAC, PAF RVR December 14, 2024 12:5 3pm Referral Order December 16, 2024 6:01 pm Pacer Check Remote December 18, 2024 5:25 am Pacer Check Remote December 23, 2024 9:0 0am 10 DAY WOUND CHECK December 23, 2024 12: 59pm MED FU January 13, 2025 12 :59pm Pacer Check Remote January 23, 2025 9:00am 6 W PPM/BRAYAN @ 1 January 23, 2025 12:40pm INT LAB ORDERS January 23, 2025 1:49pm Pacer Check Remote January 24, 2025 3:31am Pacer Check Remote February 08, 2025 3:31am E-ORDER February 12, 2025 9:08am 3 WK FU February 14, 2025 8:55am Chief Complaint Admit Date SOB, CP December 10, 2024 9:32 pm HF EXAC, PAF RVR December 10, 2024 9:33 pm HF EXAC, PAF RVR December 11, 2024 1:45 pm HF EXAC, PAF RVR December 12, 2024 4:36 am HF EXAC, PAF RVR December 13, 2024 12:0 6am HF EXAC, PAF RVR December 13, 2024 8:21 am Pacer Check Remote December 14, 2024 8:38 am HF EXAC, PAF RVR December 14, 2024 10:5 2am HF EXAC, PAF RVR December 14, 2024 12:5 3pm Referral Order December 16, 2024 6:01 pm Pacer Check Remote December 18, 2024 5:25 am Pacer Check Remote December 23, 2024 9:0 0am 10 DAY WOUND CHECK December 23, 2024 12: 59pm MED FU January 13, 2025 12 :59pm Pacer Check Remote January 23, 2025 9:00am 6 W PPM/BRAYAN @ 1 January 23, 2025 12:40pm INT LAB ORDERS January 23, 2025 1:49pm Pacer Check Remote January 24, 2025 3:31am Pacer Check Remote February 08, 2025 3:31am E-ORDER February 12, 2025 9:08am 3 WK FU February 14, 2025 8:55am e orders February 21, 2025 8: 21am Pacer Check Remote March 08, 2025 3 :32am ABLA DUE TO GI BLEED March 17, 2025 6:51pm ABLA DUE TO GI BLEED March 18, 2025 7:12am ABLA DUE TO GI BLEED March 18, 2025 3:42pm ABLA DUE TO GI BLEED March 19, 2025 7:09am ABLA DUE TO GI BLEED March 19, 2025 10:37am ABLA DUE TO GI BLEED March 20, 2025 7:19am ABLA DUE TO GI BLEED March 20, 2025 11:56am ABLA DUE TO GI BLEED March 21, 2025 7:47am ABLA DUE TO GI BLEED March 22, 2025 12:58am ABLA DUE TO GI BLEED March 23, 2025 11:16am Reason for Visit Admit Date Cardiac LV ejection fraction of 20-34% Manish noel 2024 9:33pm Congestive heart failure December 10, 2024 9:33pm Acute exacerbation of CHF (congestive he art failure) December 10, 2024 9:33pm Atrial fibrillation December 10, 2024 9:33 pm Essential hypertension December 10, 2024 9 :33pm Thoracoabdominal aortic aneurysm (TAAA) December 10, 2024 9:33pm Atrial flutter December 23, 2024 12: 59pm Implantable cardioverter-defibrillator ( ICD) in situ December 23, 2024 12:59pm Heart failure with preserved ejection fr action December 23, 2024 12:59pm Atrial flutter January 13, 2025 12 :59pm Anxiety and depression January 13, 2025 12:59pm Bilateral knee pain January 13, 2025 12 :59pm Borderline type [address] 2024 12:59pm Congestive heart failure January 13 12:59pm Insomnia January 13, 2025 12 :59pm Implantable cardioverter-defibrillator ( ICD) in situ January 23, 2025 12:40pm Congestive heart failure January 23, 2025 12:40pm Atrial flutter January 23, 2025 12:40pm Cardiac LV ejection fraction of 20-34% S [id number] 12:40pm Hypersomnolence January 23, 2025 12:40pm Hyperlipidemia January 23, 2025 12:40pm Shortness of breath January 23, 2025 12:40pm Atrial flutter February 14, 2025 8:55am Cardiac LV ejection fraction of 20-34% S eptember 2024 8:55am Hypersomnolence February 14, 2025 8:55am Implantable cardioverter-defibrillator ( ICD) in situ February 14, 2025 8:55am Congestive heart failure February 14, 2025 8:55am Hyperlipidemia February 14, 2025 8:55am GI bleed March 17, 2025 6 :51pm ABLA (acute blood loss anemia) February 202024 6:51pm Additional Source Comments INFORMATION SOURCE (unrecogn ized section and content) DATE CREATED AUTHOR 11/15/2017 [facility] DATE CREATED AUTHOR AUTHOR'S ORGANIZ ATION 10/09/2021 [facility] DATE CREATED AUTHOR AUTHOR'S ORGANIZ ATION 04/04/2025 [facility] Goals (unrecognized section and content) Goals may [...] or prosecute any alcohol or drug abuse patient.[facility] the event this information is protected by the Federal Confidentiality of Alcohol and Drug Abuse Patient Records regulations: The Federal rules restrict any use of the information to criminally investigate or prosecute any alcohol or drug abuse patient.[facility] Reason for Visit (unrecogniz ed section and content) Reason Comments Vaginal Problem Yeast infections Care Teams (unrecognized sec tion and content) Team Status: Active Member Role Status Dates No Primary Care Physician Family Provider Active Dr. Abdulaziz Ackerman MD Primary Care Provider Active Team Status: Inactive Member Role Status Dates Dr. Abdulaziz Ackerman MD Primary Care Adonis lino, Attending Provider, Referring Provider Active Team Status: Inactive Member Role Status Dates Dr. Abdulaziz Ackerman MD Primary Care Provider, Refer ring Provider Active Jimmy Valderrama NP, NET WE[employer] DEVELOPER-C Attending Provider Active Team Status: Inactive Member [...] DO Emergency Provider Active Dr. Jimmy Clark , DO Admit Provider, Attending Provider, Other Provider [...] Admit Provider, Attending Pro vider Active Dr. Jaaml Munoz MD Other Provider Active Dr. Tucker [...] Primary Care Provider, Refer ring Provider Active SUSANA Lemus Attending Provider Active Team Status: Active Member Role Status Dates Dr. Abdulaziz Ackerman MD Primary Care Provider Active Sara Perez NP-C Attending Provider, Referring Pro vider Active Team Status: Inactive Member Role Status Dates Dr. Abdulaziz Ackerman MD Primary Care Provider Active Sara Perez NP-Jaden Attending Provider Active Team Status: Inactive Member Role Status Dates Dr. Abdulaziz Ackerman MD Primary Care Provider Active Sara Perez NP-C Attending Provider, Referring Pro vider Active [...] July 24, 2024 Dr. Abdulaziz Ackerman MD Attending Provider Active Start: July 24, [...] Active Start: August 21, 2024 Dr. Iglesia Bensno MD Other Provider Active Sta rt: August 21, 2024 Team Status: Inactive Member Role Status Dates Dr. Abdulazzi Ackerman MD Primary Care Provider Active Start: [...] Provider Active Start: August 22, 2024 Dr. Jmaal Munoz MD Attending Provider Active S tart: [...] October 25, 2024 End: October 25, 2024 Eladio DIXON PA Attending Provider Active St art: October 25, [...] July 31, 2024 End: July 31, 2024 AZCK Kelley Attending Provider Active St art: July [...] November 25, 2024 End: November 25, 2024 Team Status: Inactive Member Role/Relationship [...] Status: Inactive Member Role/Relationship Status Dates Dr. Abdulzaiz Ackerman MD Primary Care Provider Active Start: [...] October 25, 2024 End: October 25, 2024 Eladio DIXON PA Attending Provider Active St art: October 25, 2024 End: October 25, 2024 Team Status: Inactive Member Role/Relationship Status Dates Dr. Abdulaziz Ackerman MD Primary Care Provider Active Start: November 25, 2024 End: November 25, 2024 Dr. Abdulaziz Ackerman MD Referring Provider Active Start: November 25, 2024 End: November 25, 2024 SUSANA Almeida Attending Provider Active Start: November 25, 2024 End: November 25, 2024 Team Status: Active Member Role/Relationship Status Dates Dr. Abdulaziz Ackerman MD Primary Care Provider Active Start: December 10, 2024 Dr. Devyn Houston DO Emergency Provider Active Start: December 10, 2024 Dr. Samantha Gary MD Attending Provider Active Start: December 10, 2024 Team Status: Active Member Role/Relationship Status Dates Dr. Abdulaziz Ackerman MD Primary Care Provider Active Start: December 10, 2024 Dr. Devyn Houston DO Emergency Provider Active Start: December 10, 2024 Dr. Samantha Gary MD Admit Provider Active St art: December 10, 2024 Dr. Samantha Gary MD Attending Provider Active Start: December 10, 2024 Team Status: Inactive Member Role/Relationship Status [...] November 25, 2024 End: November 25, 2024 Team Status: Active Member Role/Relationship Status Dates Dr. Abdulaziz Ackerman MD Primary Care Provider Active Start: December 10, 2024 Dr. Devyn Houston DO Emergency Provider Active Start: December 10, 2024 Dr. Samantha Gary MD Attending Provider Active Start: December 10, 2024 Team Status: Inactive Member Role/Relationship Status Dates Dr. Abdulaziz Ackerman MD Primary Care Provider Active Start: December 10, 2024 End: December 14, 2024 Dr. Devyn Houston DO Emergency Provider Active Start: December 10, 2024 End: December 14, 2024 Dr. Samantha Gary MD Admit Provider Active St art: December 10, 2024 End: December 14, 2024 Dr. Samantha Gary MD Other Provider Active St art: December 10, 2024 End: December 14, 2024 Dr. Tatum Escobedo MD Attending Provider Active Start: December 10, 2024 End: December 14, 2024 Dr. Felicia Ramesh MD Other Provider Active Start: December 10, 2024 End: December 14, 2024 Team Status: Active Member Role/Relationship Status Dates Dr. Abdulaziz Ackerman MD Primary Care Provider Active Start: December 11, 2024 Dr. Devyn Houston DO Emergency Provider Active Start: December 11, 2024 Dr. Samantha Gary MD Admit Provider Active St art: December 11, 2024 Dr. Samantha Gary MD Other Provider Active St art: December 11, 2024 Dr. Tatum Escobedo MD Attending Provider Active Start: December 11, 2024 Dr. Tatum Escobedo MD Other Provider Active St art: December 11, 2024 Team Status: Active Member Role/Relationship Status Dates Dr. Abdulaziz Ackerman MD Primary Care Provider Active Start: December 12, 2024 Dr. Devyn Houston DO Emergency Provider Active Start: December 12, 2024 Dr. Samantha Gary MD Admit Provider Active St art: December 12, 2024 Dr. Samantha Gary MD Attending Provider Active Start: December 12, 2024 Dr. Samantah Gary MD Other Provider Active St art: December 12, 2024 Dr. Tatum Escobedo MD Other Provider Active St art: December 12, 2024 Team Status: Active Member Role/Relationship Status Dates Dr. Abdulaziz Ackerman MD Primary Care Provider Active Start: December 13, 2024 Dr. Devyn Houston DO Emergency Provider Active Start: December 13, 2024 Dr. Samantha Gary MD Admit Provider Active St art: December 13, 2024 Dr. Samantha Gary MD Attending Provider Active Start: December 13, 2024 Dr. Samantha Gary MD Other Provider Active St art: December 13, 2024 Dr. Tatum Escobedo MD Other Provider Active St art: December 13, 2024 Team Status: Active Member Role/Relationship Status Dates Dr. Abdulaziz Ackerman MD Primary Care Provider Active Start: December 13, 2024 Dr. Devyn Houston DO Emergency Provider Active Start: December 13, 2024 Dr. Samantha Gary MD Admit Provider Active St art: December 13, 2024 Dr. Samantha Gary MD Other Provider Active St art: December 13, 2024 Dr. Tatum Escobedo MD Other Provider Active St art: December 13, 2024 Dr. Felicia Ramesh MD Other Provider Active Start: December 13, 2024 Dr. Jamal Munoz MD Attending Provider Active S tart: December 13, 2024 Team Status: Active Member Role/Relationship Status Dates Dr. Abdulaziz Ackerman MD Primary Care Provider Active Start: December 14, 2024 Dr. Devyn Houston DO Emergency Provider Active Start: December 14, 2024 Dr. Samantha Gary MD Admit Provider Active St art: December 14, 2024 Dr. Samantha Gary MD Other Provider Active St art: December 14, 2024 Dr. Tatum Escobedo MD Other Provider Active St art: December 14, 2024 Dr. Felicia Ramesh MD Other Provider Active Start: December 14, 2024 Dr. Jamal Munoz MD Attending Provider Active S tart: December 14, 2024 Team Status: Active Member Role/Relationship Status Dates Dr. Abdulaziz Ackerman MD Primary Care Provider Active Start: December 14, 2024 Dr. Devyn Houston DO Emergency Provider Active Start: December 14, 2024 Dr. Samantha Gary MD Admit Provider Active St art: December 14, 2024 Dr. Samantha Gary MD Other Provider Active St art: December 14, 2024 Dr. Tatum Escobedo MD Attending Provider Active Start: December 14, 2024 Dr. Tatum Escobedo MD Other Provider Active St art: December 14, 2024 Dr. Felicia Ramesh MD Other Provider Active Start: December 14, 2024 Team Status: Active Member Role/Relationship Status Dates Dr. Abdulaziz Ackerman MD Primary Care Provider Active Start: December 16, 2024 Dr. Jamal Munoz MD Attending Provider Active S tart: December 16, 2024 Team Status: Inactive Member Role/Relationship Status [...] November 25, 2024 End: November 25, 2024 Team Status: Active Member Role/Relationship Status Dates Dr. Abdulaziz Ackerman MD Primary Care Provider Active Start: December 10, 2024 Dr. Devyn Houston DO Emergency Provider Active Start: December 10, 2024 Dr. Samantha Gary MD Attending Provider Active Start: December 10, 2024 Team Status: Inactive Member Role/Relationship Status Dates Dr. Abdulaziz Ackerman MD Primary Care Provider Active Start: December 10, 2024 End: December 14, 2024 Dr. Devyn Houston DO Emergency Provider Active Start: December 10, 2024 End: December 14, 2024 Dr. Samantha Gary MD Admit Provider Active St art: December 10, 2024 End: December 14, 2024 Dr. Samantha Gary MD Other Provider Active St art: December 10, 2024 End: December 14, 2024 Dr. Tatum Escobedo MD Attending Provider Active Start: December 10, 2024 End: December 14, 2024 Dr. Felicia Ramesh MD Other Provider Active Start: December 10, 2024 End: December 14, 2024 Team Status: Active Member Role/Relationship Status Dates Dr. Abdulaziz Ackerman MD Primary Care Provider Active Start: December 11, 2024 Dr. Devyn Houston DO Emergency Provider Active Start: December 11, 2024 Dr. Samantha Gary MD Admit Provider Active St art: December 11, 2024 Dr. Samantha Gary MD Other Provider Active St art: December 11, 2024 Dr. Tatum Escobedo MD Attending Provider Active Start: December 11, 2024 Dr. Tatum Escobedo MD Other Provider Active St art: December 11, 2024 Team Status: Active Member Role/Relationship Status Dates Dr. Abdulaziz Ackerman MD Primary Care Provider Active Start: December 12, 2024 Dr. Devyn Houston DO Emergency Provider Active Start: December 12, 2024 Dr. Samantha Gary MD Admit Provider Active St art: December 12, 2024 Dr. Samantha Gary MD Other Provider Active St art: December 12, 2024 Dr. Tatum Escobedo MD Attending Provider Active Start: December 12, 2024 Dr. Tatum Escobedo MD Other Provider Active St art: December 12, 2024 Team Status: Active Member Role/Relationship Status Dates Dr. Abdulaziz Ackerman MD Primary Care Provider Active Start: December 13, 2024 Dr. Devyn Houston DO Emergency Provider Active Start: December 13, 2024 Dr. Samantha Gary MD Admit Provider Active St art: December 13, 2024 Dr. Samantha Gary MD Other Provider Active St art: December 13, 2024 Dr. Tatum Escobedo MD Attending Provider Active Start: December 13, 2024 Dr. Tatum Escobedo MD Other Provider Active St art: December 13, 2024 Team Status: Active Member Role/Relationship Status Dates Dr. Abdulaziz Ackerman MD Primary Care Provider Active Start: December 13, 2024 Dr. Devyn Houston DO Emergency Provider Active Start: December 13, 2024 Dr. Samantha Gary MD Admit Provider Active St art: December 13, 2024 Dr. Samantha Gary MD Other Provider Active St art: December 13, 2024 Dr. Tatum Escobedo MD Other Provider Active St art: December 13, 2024 Dr. Felicia Ramesh MD Other Provider Active Start: December 13, 2024 Dr. Jamal Munoz MD Attending Provider Active S tart: December 13, 2024 Team Status: Active Member Role/Relationship Status Dates Dr. Abdulaziz Ackerman MD Primary Care Provider Active Start: December 14, 2024 Dr. Devyn Houston DO Emergency Provider Active Start: December 14, 2024 Dr. Samantha Gary MD Admit Provider Active St art: December 14, 2024 Dr. Samantha Gary MD Other Provider Active St art: December 14, 2024 Dr. Tatum Escobedo MD Other Provider Active St art: December 14, 2024 Dr. Felicia Ramesh MD Other Provider Active Start: December 14, 2024 Dr. Jamal Munoz MD Attending Provider Active S tart: December 14, 2024 Team Status: Active Member Role/Relationship Status Dates Dr. Abdulaziz Ackerman MD Primary Care Provider Active Start: December 14, 2024 Dr. Devyn Houston DO Emergency Provider Active Start: December 14, 2024 Dr. Samantha Gary MD Admit Provider Active St art: December 14, 2024 Dr. Samantha Gary MD Other Provider Active St art: December 14, 2024 Dr. Tatum Escobedo MD Attending Provider Active Start: December 14, 2024 Dr. Tatum Escobedo MD Other Provider Active St art: December 14, 2024 Dr. Felicia Ramesh MD Other Provider Active Start: December 14, 2024 Team Status: Active Member Role/Relationship Status Dates Dr. Abdulaziz Ackerman MD Primary Care Provider Active Start: December 16, 2024 Dr. Jamal Munoz MD Attending Provider Active S tart: December 16, 2024 Team Status: Inactive Member Role/Relationship Status Dates Dr. Abdulaziz Ackerman MD Primary Care Provider Active Start: December 23, 2024 End: December 23, 2024 Dr. Abdulaziz Ackerman MD Referring Provider Active Start: December 23, 2024 End: December 23, 2024 Mary Evans Attending Provider Active Start: A 2024 End: December 23, 2024 Team Status: Inactive Member Role/Relationship Status [...] November 25, 2024 End: November 25, 2024 Team Status: Active Member Role/Relationship Status Dates Dr. Abdulaziz Ackerman MD Primary Care Provider Active Start: December 10, 2024 Dr. Devyn Houston DO Emergency Provider Active Start: December 10, 2024 Dr. Samantha Gary MD Attending Provider Active Start: December 10, 2024 Team Status: Inactive Member Role/Relationship Status Dates Dr. Abdulaziz Ackerman MD Primary Care Provider Active Start: December 10, 2024 End: December 14, 2024 Dr. Devyn Houston DO Emergency Provider Active Start: December 10, 2024 End: December 14, 2024 Dr. Smaantha Gary MD Admit Provider Active St art: December 10, 2024 End: December 14, 2024 Dr. Samantha Gary MD Other Provider Active St art: December 10, 2024 End: December 14, 2024 Dr. Tatum Escobedo MD Attending Provider Active Start: December 10, 2024 End: December 14, 2024 Dr. Felicia Ramesh MD Other Provider Active Start: December 10, 2024 End: December 14, 2024 Team Status: Active Member Role/Relationship Status Dates Dr. Abdulaziz Ackerman MD Primary Care Provider Active Start: December 11, 2024 Dr. Devyn Houston DO Emergency Provider Active Start: December 11, 2024 Dr. Samantha Gary MD Admit Provider Active St art: December 11, 2024 Dr. Samantha Gary MD Other Provider Active St art: December 11, 2024 Dr. Tatum Escobedo MD Attending Provider Active Start: December 11, 2024 Dr. Tatum Escobedo MD Other Provider Active St art: December 11, 2024 Team Status: Active Member Role/Relationship Status Dates Dr. Abdulaziz Ackerman MD Primary Care Provider Active Start: December 12, 2024 Dr. Devyn Houston DO Emergency Provider Active Start: December 12, 2024 Dr. Samantha Gary MD Admit Provider Active St art: December 12, 2024 Dr. Samantha Gary MD Other Provider Active St art: December 12, 2024 Dr. Tatum Escobedo MD Attending Provider Active Start: December 12, 2024 Dr. Tatum Escobedo MD Other Provider Active St art: December 12, 2024 Team Status: Active Member Role/Relationship Status Dates Dr. Abdulaziz Ackerman MD Primary Care Provider Active Start: December 13, 2024 Dr. Devyn Houston DO Emergency Provider Active Start: December 13, 2024 Dr. Samantha Gary MD Admit Provider Active St art: December 13, 2024 Dr. Samantha Gary MD Other Provider Active St art: December 13, 2024 Dr. Tatum Escobedo MD Attending Provider Active Start: December 13, 2024 Dr. Tatum Escobedo MD Other Provider Active St art: December 13, 2024 Team Status: Active Member Role/Relationship Status Dates Dr. Abdulaziz Ackerman MD Primary Care Provider Active Start: December 13, 2024 Dr. Devyn Houston DO Emergency Provider Active Start: December 13, 2024 Dr. Samantha Gary MD Admit Provider Active St art: December 13, 2024 Dr. Samantha Gary MD Other Provider Active St art: December 13, 2024 Dr. Tatum Escobedo MD Other Provider Active St art: December 13, 2024 Dr. Felicia Ramesh MD Other Provider Active Start: December 13, 2024 Dr. Jamal Munoz MD Attending Provider Active S tart: December 13, 2024 Team Status: Inactive Member Role/Relationship Status Dates Dr. Abdulaziz Ackerman MD Primary Care Provider Active Start: December 14, 2024 End: December 14, 2024 Dr. Jamal Munoz MD Attending Provider Active S tart: December 14, 2024 End: December 14, 2024 Team Status: Inactive Member Role/Relationship Status Dates Dr. Abdulaziz Ackerman MD Primary Care Provider Active Start: December 18, 2024 End: December 18, 2024 Dr. Jmaal Munoz MD Attending Provider Active S tart: December 18, 2024 End: December 18, 2024 Team Status: Inactive Member Role/Relationship Status Dates Dr. Abdulaziz Ackerman MD Primary Care Provider Active Start: December 23, 2024 End: December 23, 2024 Dr. Jamal Munoz MD Attending Provider Active S tart: December 23, 2024 End: December 23, 2024 Team Status: Inactive Member Role/Relationship Status Dates Dr. Abdulaziz Ackerman MD Primary Care Provider Active Start: December 23, 2024 End: December 23, 2024 Dr. Abdulaziz Ackerman MD Referring Provider Active Start: December 23, 2024 End: December 23, 2024 Dr. Jamal Munoz MD Attending Provider Active S tart: December 23, 2024 End: December 23, 2024 Team Status: Inactive Member Role/Relationship Status [...] October 25, 2024 End: October 25, 2024 Eladio DIXON PA Attending Provider Active St art: October 25, 2024 End: October 25, 2024 Team Status: Inactive Member Role/Relationship Status Dates Dr. Abdulaziz Ackerman MD Primary Care Provider Active Start: November 25, 2024 End: November 25, 2024 Dr. Abdulaziz Ackerman MD Referring Provider Active Start: November 25, 2024 End: November 25, 2024 SUSANA Almeida Attending Provider Active Start: November 25, 2024 End: November 25, 2024 Team Status: Active Member Role/Relationship Status Dates Dr. Abdulaziz Ackerman MD Primary Care Provider Active Start: December 10, 2024 Dr. Devyn Houston DO Emergency Provider Active Start: December 10, 2024 Dr. Samantha Gary MD Attending Provider Active Start: December 10, 2024 Team Status: Inactive Member Role/Relationship Status Dates Dr. Abdulaziz Ackerman MD Primary Care Provider Active Start: December 10, 2024 End: December 14, 2024 Dr. Devyn Houston DO Emergency Provider Active Start: December 10, 2024 End: December 14, 2024 Dr. Samantha Gary MD Admit Provider Active St art: December 10, 2024 End: December 14, 2024 Dr. Samantha Gary MD Other Provider Active St art: December 10, 2024 End: December 14, 2024 Dr. Tatum Escobedo MD Attending Provider Active Start: December 10, 2024 End: December 14, 2024 Dr. Felicia Ramesh MD Other Provider Active Start: December 10, 2024 End: December 14, 2024 Team Status: Active Member Role/Relationship Status Dates Dr. Abdulaziz Ackerman MD Primary Care Provider Active Start: December 11, 2024 Dr. Devyn Houston DO Emergency Provider Active Start: December 11, 2024 Dr. Samantha Gary MD Admit Provider Active St art: December 11, 2024 Dr. Samantha Gary MD Other Provider Active St art: December 11, 2024 Dr. Tatum Escobedo MD Attending Provider Active Start: December 11, 2024 Dr. Tatum Escobedo MD Other Provider Active St art: December 11, 2024 Team Status: Active Member Role/Relationship Status Dates Dr. Abdulaziz Ackerman MD Primary Care Provider Active Start: December 12, 2024 Dr. Devyn Houston DO Emergency Provider Active Start: December 12, 2024 Dr. Samantha Gary MD Admit Provider Active St art: December 12, 2024 Dr. Samantha Gary MD Other Provider Active St art: December 12, 2024 Dr. Tatum Escobedo MD Attending Provider Active Start: December 12, 2024 Dr. Tatum Escobedo MD Other Provider Active St art: December 12, 2024 Team Status: Active Member Role/Relationship Status Dates Dr. Abdulaziz Ackerman MD Primary Care Provider Active Start: December 13, 2024 Dr. Devyn Houston DO Emergency Provider Active Start: December 13, 2024 Dr. Samantha Gary MD Admit Provider Active St art: December 13, 2024 Dr. Samantha Gary MD Other Provider Active St art: December 13, 2024 Dr. Tatum Escobedo MD Attending Provider Active Start: December 13, 2024 Dr. Tatum Escobedo MD Other Provider Active St art: December 13, 2024 Team Status: Active Member Role/Relationship Status Dates Dr. Abdulaziz Ackerman MD Primary Care Provider Active Start: December 13, 2024 Dr. Devyn Houston DO Emergency Provider Active Start: December 13, 2024 Dr. Samantha Gary MD Admit Provider Active St art: December 13, 2024 Dr. Samantha Gary MD Other Provider Active St art: December 13, 2024 Dr. Tatum Escobedo MD Other Provider Active St art: December 13, 2024 Dr. Felicia Ramesh MD Other Provider Active Start: December 13, 2024 Dr. Jamal Munoz MD Attending Provider Active S tart: December 13, 2024 Team Status: Inactive Member Role/Relationship Status Dates Dr. Abdulaziz Ackerman MD Primary Care Provider Active Start: December 14, 2024 End: December 14, 2024 Dr. Jamal Munoz MD Attending Provider Active S tart: December 14, 2024 End: December 14, 2024 Team Status: Active Member Role/Relationship Status Dates Dr. Abdulaziz Ackerman MD Primary Care Provider Active Start: December 14, 2024 Dr. Devyn Houston DO Emergency Provider Active Start: December 14, 2024 Dr. Samantha Gary MD Admit Provider Active St art: December 14, 2024 Dr. Samantha Gary MD Other Provider Active St art: December 14, 2024 Dr. Tatum Escobedo MD Other Provider Active St art: December 14, 2024 Dr. Felicia Ramesh MD Other Provider Active Start: December 14, 2024 Dr. Jamal Munoz MD Attending Provider Active S tart: December 14, 2024 Team Status: Active Member Role/Relationship Status Dates Dr. Abdulaziz Ackerman MD Primary Care Provider Active Start: December 14, 2024 Dr. Devyn Houston DO Emergency Provider Active Start: December 14, 2024 Dr. Samantha Gary MD Admit Provider Active St art: December 14, 2024 Dr. Samantha Gary MD Other Provider Active St art: December 14, 2024 Dr. Tatum Escobedo MD Attending Provider Active Start: December 14, 2024 Dr. Tatum Escobedo MD Other Provider Active St art: December 14, 2024 Dr. Felicia Ramesh MD Other Provider Active Start: December 14, 2024 Team Status: Active Member Role/Relationship Status Dates Dr. Abdulaziz Ackerman MD Primary Care Provider Active Start: December 16, 2024 Dr. Jamal Munoz MD Attending Provider Active S tart: December 16, 2024 Team Status: Inactive Member Role/Relationship Status Dates Dr. Abdulaziz Ackerman MD Primary Care Provider Active Start: December 18, 2024 End: December 18, 2024 Dr. Jamal Munoz MD Attending Provider Active S tart: December 18, 2024 End: December 18, 2024 Team Status: Inactive Member Role/Relationship Status Dates Dr. Abdulaziz Ackerman MD Primary Care Provider Active Start: December 23, 2024 End: December 23, 2024 Dr. Jamal Munoz MD Attending Provider Active S tart: December 23, 2024 End: December 23, 2024 Team Status: Inactive Member Role/Relationship Status Dates Dr. Abdulaziz Ackerman MD Primary Care Provider Active Start: December 23, 2024 End: December 23, 2024 Dr. Abdulaziz Ackerman MD Referring Provider Active Start: December 23, 2024 End: December 23, 2024 Dr. Jamal Munoz MD Attending Provider Active S tart: December 23, 2024 End: December 23, 2024 Team Status: Inactive Member Role/Relationship Status Dates Dr. Abdulaziz Ackerman MD Primary Care Provider Active Start: January 13, 2025 End: January 13, 2025 Dr. Abdulaziz Ackerman MD Attending Provider Active Start: January 13, 2025 End: January 13, 2025 Dr. Abdulaziz Ackerman MD Referring Provider Active Start: January 13, 2025 End: January 13, 2025 Team Status: Inactive Member Role/Relationship Status Dates Dr. Abdulaziz Ackerman MD Primary Care Provider Active Start: January 23, 2025 End: January 23, 2025 Dr. Abdulaziz Ackerman MD Referring Provider Active Start: January 23, 2025 End: January 23, 2025 Sravanthi Marroquin NET WEB DEVELOPER, [employer] WE[employer] DEVELOPER-C Attending Provider Active Start: January 23, 2025 End: January 23, 2025 Team Status: Active Member Role/Relationship Status Dates Dr. Abdulaziz Ackerman MD Primary Care Provider Active Start: January 23, 2025 Sravanthi Marroquin NET WEB DEVELOPER, [employer] WE[employer] DEVELOPER-C Attending Provider Active Start: January 23, 2025 Sravanthi Marroquin NET WEB DEVELOPER, [employer] WEB DEVELOPER-C Referring Provider Active Start: January 23, 2025 Team Status: Inactive Member Role/Relationship Status Dates [...] November 25, 2024 End: November 25, 2024 Team Status: Active Member Role/Relationship Status Dates Dr. Abdulaziz Ackerman MD Primary Care Provider Active Start: December 10, 2024 Dr. Devyn Houston DO Emergency Provider Active Start: December 10, 2024 Dr. Samantha Gary MD Attending Provider Active Start: December 10, 2024 Team Status: Inactive Member Role/Relationship Status Dates Dr. Abdulaziz Ackerman MD Primary Care Provider Active Start: December 10, 2024 End: December 14, 2024 Dr. Devyn Houston DO Emergency Provider Active Start: December 10, 2024 End: December 14, 2024 Dr. Samantha Gary MD Admit Provider Active St art: December 10, 2024 End: December 14, 2024 Dr. Samantha Gary MD Other Provider Active St art: December 10, 2024 End: December 14, 2024 Dr. Tatum Escobedo MD Attending Provider Active Start: December 10, 2024 End: December 14, 2024 Dr. Felicia Ramesh MD Other Provider Active Start: December 10, 2024 End: December 14, 2024 Team Status: Active Member Role/Relationship Status Dates Dr. Abdulaziz Ackerman MD Primary Care Provider Active Start: December 11, 2024 Dr. Devyn Houston DO Emergency Provider Active Start: December 11, 2024 Dr. Samantha Gary MD Admit Provider Active St art: December 11, 2024 Dr. Samantha Gary MD Other Provider Active St art: December 11, 2024 Dr. Tatum Escobedo MD Attending Provider Active Start: December 11, 2024 Dr. Tatum Escobedo MD Other Provider Active St art: December 11, 2024 Team Status: Active Member Role/Relationship Status Dates Dr. Abdulaziz Ackerman MD Primary Care Provider Active Start: December 12, 2024 Dr. Devyn Houston DO Emergency Provider Active Start: December 12, 2024 Dr. Samantha Gary MD Admit Provider Active St art: December 12, 2024 Dr. Samantha Gary MD Other Provider Active St art: December 12, 2024 Dr. Tatum Escobedo MD Attending Provider Active Start: December 12, 2024 Dr. Tatum Escobedo MD Other Provider Active St art: December 12, 2024 Team Status: Active Member Role/Relationship Status Dates Dr. Abdulaziz Ackerman MD Primary Care Provider Active Start: December 13, 2024 Dr. Devyn Houston DO Emergency Provider Active Start: December 13, 2024 Dr. Samantha Gary MD Admit Provider Active St art: December 13, 2024 Dr. Samantha Gary MD Other Provider Active St art: December 13, 2024 Dr. Tatum Escobedo MD Attending Provider Active Start: December 13, 2024 Dr. Tatum Escobedo MD Other Provider Active St art: December 13, 2024 Team Status: Active Member Role/Relationship Status Dates Dr. Abdulaziz Ackerman MD Primary Care Provider Active Start: December 13, 2024 Dr. Deyvn Houston DO Emergency Provider Active Start: December 13, 2024 Dr. Samantha Gary MD Admit Provider Active St art: December 13, 2024 Dr. Samantha Gary MD Other Provider Active St art: December 13, 2024 Dr. Tatum Escobedo MD Other Provider Active St art: December 13, 2024 Dr. Felicia Ramesh MD Other Provider Active Start: December 13, 2024 Dr. Jamal Munoz MD Attending Provider Active S tart: December 13, 2024 Team Status: Inactive Member Role/Relationship Status Dates Dr. Abdulaziz Ackerman MD Primary Care Provider Active Start: December 14, 2024 End: December 14, 2024 Dr. Jamal Munoz MD Attending Provider Active S tart: December 14, 2024 End: December 14, 2024 Team Status: Active Member Role/Relationship Status Dates Dr. Abdulaziz Ackerman MD Primary Care Provider Active Start: December 14, 2024 Dr. Devyn Houston DO Emergency Provider Active Start: December 14, 2024 Dr. Samantha Gary MD Admit Provider Active St art: December 14, 2024 Dr. Samantha Gary MD Other Provider Active St art: December 14, 2024 Dr. Tatum Escobedo MD Other Provider Active St art: December 14, 2024 Dr. Felicia Ramesh MD Other Provider Active Start: December 14, 2024 Dr. Jamal Munoz MD Attending Provider Active S tart: December 14, 2024 Team Status: Active Member Role/Relationship Status Dates Dr. Abdulaziz Ackerman MD Primary Care Provider Active Start: December 14, 2024 Dr. Devyn Houston DO Emergency Provider Active Start: December 14, 2024 Dr. Samantha Gary MD Admit Provider Active St art: December 14, 2024 Dr. Samantha Gary MD Other Provider Active St art: December 14, 2024 Dr. Tatum Escobedo MD Attending Provider Active Start: December 14, 2024 Dr. Tatum Escobedo MD Other Provider Active St art: December 14, 2024 Dr. Felicia Ramesh MD Other Provider Active Start: December 14, 2024 Team Status: Active Member Role/Relationship Status Dates Dr. Abdulaziz Ackerman MD Primary Care Provider Active Start: December 16, 2024 Dr. Jamal Munoz MD Attending Provider Active S tart: December 16, 2024 Team Status: Inactive Member Role/Relationship Status Dates Dr. Abdulaziz Ackerman MD Primary Care Provider Active Start: December 18, 2024 End: December 18, 2024 Dr. Jamal Munoz MD Attending Provider Active S tart: December 18, 2024 End: December 18, 2024 Team Status: Inactive Member Role/Relationship Status Dates Dr. Abdulaziz Ackerman MD Primary Care Provider Active Start: December 23, 2024 End: December 23, 2024 Dr. Jamal Munoz MD Attending Provider Active S tart: December 23, 2024 End: December 23, 2024 Team Status: Inactive Member Role/Relationship Status Dates Dr. Abdulaziz Ackerman MD Primary Care Provider Active Start: December 23, 2024 End: December 23, 2024 Dr. Abdulaziz Ackerman MD Referring Provider Active Start: December 23, 2024 End: December 23, 2024 Dr. Jamal uMnoz MD Attending Provider Active S tart: December 23, 2024 End: December 23, 2024 Team Status: Inactive Member Role/Relationship Status Dates Dr. Abdulaziz Ackerman MD Primary Care Provider Active Start: January 13, 2025 End: January 13, 2025 Dr. Abdulaziz Ackerman MD Attending Provider Active Start: January 13, 2025 End: January 13, 2025 Dr. Abdulaziz Ackerman MD Referring Provider Active Start: January 13, 2025 End: January 13, 2025 Team Status: Inactive Member Role/Relationship Status Dates Dr. Abdulaziz Ackerman MD Primary Care Provider Active Start: January 23, 2025 End: January 23, 2025 Dr. Jamal Munoz MD Attending Provider Active S tart: January 23, 2025 End: January 23, 2025 Team Status: Inactive Member Role/Relationship Status Dates Dr. Abdulaziz Ackerman MD Primary Care Provider Active Start: January 24, 2025 End: January 24, 2025 Dr. Jamal Munoz MD Attending Provider Active S tart: January 24, 2025 End: January 24, 2025 Team Status: Inactive Member Role/Relationship Status Dates Dr. Abdulaziz Ackerman MD Primary Care Provider Active Start: January 23, 2025 End: January 23, 2025 Sravanthi Marroquin NET WEB DEVELOPER, [employer] WEB DEVELOPER-C Attending Provider Active Start: January 23, 2025 End: January 23, 2025 Sravanthi Marroquin NET WEB DEVELOPER, NET WEB DEVELOPER-C Referring Provider Active Start: January 23, 2025 End: January 23, 2025 Team Status: Active Member Role/Relationship Status Dates Dr. Abdulaziz Ackerman MD Primary care physician Activ e Team Status: Inactive Member Role/Relationship Status Dates Dr. Abdulaziz Ackerman MD Primary care physician Activ e Start: October 25, 2024 End: October 25, 2024 Dr. Abdulaziz Ackerman MD Referring Provider Active Start: October 25, 2024 End: October 25, 2024 ZACK Kelley Attending physician Active S tart: October 25, 2024 End: October 25, 2024 Team Status: Inactive Member Role/Relationship Status Dates Dr. Abdulaziz Ackerman MD Primary care physician Activ e Start: November 25, 2024 End: November 25, 2024 Dr. Abdulaziz Ackerman MD Referring Provider Active Start: November 25, 2024 End: November 25, 2024 Paula Katz NP-C Attending physician Active Start: November 25, 2024 End: November 25, 2024 Team Status: Active Member Role/Relationship Status Dates Dr. Abdulaziz Ackerman MD Primary care physician Activ e Start: December 10, 2024 Dr. Devyn Houston DO Emergency Departm ent Physician Active Start: December 10, 2024 Dr. Samantha Gary MD Attending physician Active Start: December 10, 2024 Team Status: Inactive Member Role/Relationship Status Dates Dr. Abdulaziz Ackerman MD Primary care physician Activ e Start: December 10, 2024 End: December 14, 2024 Dr. Devyn Houston DO Emergency Departm ent Physician Active Start: December 10, 2024 End: December 14, 2024 Dr. Samantha Gary MD Admitting physician Active Start: December 10, 2024 End: December 14, 2024 Dr. Samantha Gary MD Nurse Practitioner Active Start: December 10, 2024 End: December 14, 2024 Dr. Tatum Escobedo MD Attending physician Active Start: December 10, 2024 End: December 14, 2024 Dr. Felicia Ramesh MD Nurse Practitioner Active Start: December 10 End: December 14, 2024 Team Status: Active Member Role/Relationship Status Dates Dr. Abdulaziz Ackerman MD Primary care physician Activ e Start: December 11, 2024 Dr. Devyn Houston DO Emergency Department Physician Active Start: December 11, 2024 Dr. Samantha Gary MD Admitting physician Active Start: December 11, 2024 Dr. Samantha Gary MD Nurse Practitioner Active Start: December 11, 2024 Dr. Tatum Escobedo MD Attending physician Active Start: December 11, 2024 Dr. Tatum Escobedo MD Nurse Practitioner Active Start: December 11, 2024 Team Status: Active Member Role/Relationship Status Dates Dr. Abdulaziz Ackerman MD Primary care physician Activ e Start: December 12, 2024 Dr. Devyn Houston DO Emergency Department Physician Active Start: December 12, 2024 Dr. Samantha Gary MD Admitting physician Active Start: December 12, 2024 Dr. Samantha Gary MD Nurse Practitioner Active Start: December 12, 2024 Dr. Tatum Escobedo MD Attending physician Active Start: December 12, 2024 Dr. Tatum Escobedo MD Nurse Practitioner Active Start: December 12, 2024 Team Status: Active Member Role/Relationship Status Dates Dr. Abdulaziz Ackerman MD Primary care physician Activ e Start: December 13, 2024 Dr. Devyn Houston DO Emergency Department Physician Active Start: December 13, 2024 Dr. Samantha Gary MD Admitting physician Active Start: December 13, 2024 Dr. Samantha Gary MD Nurse Practitioner Active Start: December 13, 2024 Dr. Tatum Escobedo MD Attending physician Active Start: December 13, 2024 Dr. Tatum Escobedo MD Nurse Practitioner Active Start: December 13, 2024 Team Status: Active Member Role/Relationship Status Dates Dr. Abdulaziz Ackerman MD Primary care physician Activ e Start: December 13, 2024 Dr. Devyn Houston DO Emergency Departm ent Physician Active Start: December 13, 2024 Dr. Samantha Gary MD Admitting physician Active Start: December 13, 2024 Dr. Samantha Gary MD Nurse Practitioner Active Start: December 13, 2024 Dr. Tatum Escobedo MD Nurse Practitioner Active Start: December 13, 2024 Dr. Felicia Ramesh MD Nurse Practitioner Active Start: December 13 Dr. Jamal Munoz MD Attending physician Active Start: December 13, 2024 Team Status: Inactive Member Role/Relationship Status Dates Dr. Abdulaziz Ackerman MD Primary care physician Activ e Start: December 14, 2024 End: December 14, 2024 Dr. Jamal Munoz MD Attending physician Active Start: December 14, 2024 End: December 14, 2024 Team Status: Active Member Role/Relationship Status Dates Dr. Abdulaziz Ackerman MD Primary care physician Activ e Start: December 14, 2024 Dr. Devyn Houston DO Emergency Departm ent Physician Active Start: December 14, 2024 Dr. Samantha Gary MD Admitting physician Active Start: December 14, 2024 Dr. Samantha Gary MD Nurse Practitioner Active Start: December 14, 2024 Dr. Tautm Escobedo MD Nurse Practitioner Active Start: December 14, 2024 Dr. Felicia Ramesh MD Nurse Practitioner Active Start: December 14 Dr. Jamal Munoz MD Attending physician Active Start: December 14, 2024 Team Status: Active Member Role/Relationship Status Dates Dr. Abdulaziz Ackerman MD Primary care physician Activ e Start: December 14, 2024 Dr. Devyn Houston , DO Emergency Departm ent Physician Active Start: December 14, 2024 Dr. Samantha Gary MD Admitting physician Active Start: December 14, 2024 Dr. Samantha Gary MD Nurse Practitioner Active Start: December 14, 2024 Dr. Tatum Escobedo MD Attending physician Active Start: December 14, 2024 Dr. Tatum Escobedo MD Nurse Practitioner Active Start: December 14, 2024 Dr. Felicia Ramesh MD Nurse Practitioner Active Start: December 14 Team Status: Active Member Role/Relationship Status Dates Dr. Abdulaziz Ackerman MD Primary care physician Activ e Start: December 16, 2024 Dr. Jamal Munoz MD Attending physician Active Start: December 16, 2024 Team Status: Inactive Member Role/Relationship Status Dates Dr. Abdulaziz Ackerman MD Primary care physician Activ e Start: December 18, 2024 End: December 18, 2024 Dr. Jamal Munoz MD Attending physician Active Start: December 18, 2024 End: December 18, 2024 Team Status: Inactive Member Role/Relationship Status Dates Dr. Abdulaziz Ackerman MD Primary care physician Activ e Start: December 23, 2024 End: December 23, 2024 Dr. Jamal Munoz MD Attending physician Active Start: December 23, 2024 End: December 23, 2024 Team Status: Inactive Member Role/Relationship Status Dates Dr. Abdulaziz Ackerman MD Primary care physician Activ e Start: December 23, 2024 End: December 23, 2024 Dr. Abdulaziz Ackerman MD Referring Provider Active Start: December 23, 2024 End: December 23, 2024 Dr. Jamal Munoz MD Attending physician Active Start: December 23, 2024 End: December 23, 2024 Team Status: Inactive Member Role/Relationship Status Dates Dr. Abdulaziz Ackerman MD Primary care physician Activ e Start: January 13, 2025 End: January 13, 2025 Dr. Abdulaziz Ackerman MD Attending physician Active Start: January 13, 2025 End: January 13, 2025 Dr. Abdulaziz Ackerman MD Referring Provider Active Start: January 13, 2025 End: January 13, 2025 Team Status: Inactive Member Role/Relationship Status Dates Dr. Abdulaziz Ackerman MD Primary care physician Activ e Start: January 23, 2025 End: January 23, 2025 Dr. Jamal Munoz MD Attending physician Active Start: January 23, 2025 End: January 23, 2025 Team Status: Inactive Member Role/Relationship Status Dates Dr. Abdulaziz Ackerman MD Primary care physician Activ e Start: January 23, 2025 End: January 23, 2025 Dr. Abdulaziz Ackerman MD Referring Provider Active Start: January 23, 2025 End: January 23, 2025 Sravanthi Marroquin NET WEB DEVELOPER, NET WEB DEVELOPER-C Attending physician Active Start: January 23, 2025 End: January 23, 2025 Team Status: Inactive Member Role/Relationship Status Dates Dr. Abdulaziz Ackerman MD Primary care physician Activ e Start: January 23, 2025 End: January 23, 2025 Sravanthi Marroquin NET WEB DEVELOPER, NET WEB DEVELOPER-C Attending physician Active Start: January 23, 2025 End: January 23, 2025 Sravanthi Marroquin NET WEB DEVELOPER, NET WEB DEVELOPER-C Referring Provider Active Start: January 23, 2025 End: January 23, 2025 Team Status: Inactive Member Role/Relationship Status Dates Dr. Abdulaziz Ackerman MD Primary care physician Activ e Start: January 24, 2025 End: January 24, 2025 Dr. Jamal Munoz MD Attending physician Active Start: January 24, 2025 End: January 24, 2025 Team Status: Inactive Member Role/Relationship Status Dates Dr. Abdulaziz Ackerman MD Primary care physician Activ e Start: February 12, 2025 End: February 12, 2025 Sravanthi Marroquin NET WEB DEVELOPER, NET WEB DEVELOPER-C Attending physician Active Start: February 12, 2025 End: February 12, 2025 Sravanthi Marroquin NET WEB DEVELOPER, NET WEB DEVELOPER-C Referring Provider Active Start: February 12, 2025 End: February 12, 2025 Team Status: Inactive Member Role/Relationship Status Dates Dr. Abdulaziz Ackerman MD Primary care physician Activ e Start: February 14, 2025 End: February 14, 2025 Dr. Abdulaziz Ackerman MD Referring Provider Active Start: February 14, 2025 End: February 14, 2025 Sravanthi Marroquin NET WEB DEVELOPER, NET WEB DEVELOPER-C Attending physician Active Start: February 14, 2025 End: February 14, 2025 Team Status: Active Member Role/Relationship Status Dates Dr. Abdulaziz Ackerman MD Primary care physician Activ e Start: February 08, 2025 Dr. Jamal Munoz MD Attending physician Active Start: February 08, 2025 Team Status: Inactive Member Role/Relationship Status Dates Dr. Abdulaziz Ackerman MD Primary care physician Activ e Start: February 12, 2025 End: February 12, 2025 Sravanthi Marroquin NET WEB DEVELOPER, NET WEB DEVELOPER-C Attending physician Active Start: February 12, 2025 End: February 12, 2025 Sravanthi Marroquin NET WEB DEVELOPER, NET WEB DEVELOPER-C Referring Provider Active Start: February 12, 2025 End: February 12, 2025 Team Status: Inactive Member Role/Relationship Status Dates Dr. Abdulaziz Ackerman MD Primary care physician Activ e Start: February 14, 2025 End: February 14, 2025 Dr. Abdulaziz Ackerman MD Referring Provider Active Start: February 14, 2025 End: February 14, 2025 Sravanthi Marroquin NET WEB DEVELOPER, NET WEB DEVELOPER-C Attending physician Active Start: February 14, 2025 End: February 14, 2025 Team Status: Inactive Member Role/Relationship Status Dates Dr. Abdulaziz Ackerman MD Primary care physician Activ e Start: February 08, 2025 End: February 08, 2025 Dr. Jamal Munoz MD Attending physician Active Start: February 08, 2025 End: February 08, 2025 Team Status: Active Member Role/Relationship Status Dates Sravanthi Marroquin NET WEB DEVELOPER, NET WEB DEVELOPER-C Primary care physician Active Team Status: Active Member Role/Relationship Status Dates Dr. Abdulaziz Ackerman MD Primary care physician Activ e Start: December 10, 2024 Dr. Devyn Houston , DO Emergency Departm ent Physician Active Start: December 10, 2024 Dr. Samantha Gary MD Attending physician Active Start: December 10, 2024 Team Status: Inactive Member Role/Relationship Status Dates Dr. Abdulaziz Ackerman MD Primary care physician Activ e Start: December 10, 2024 End: December 14, 2024 Dr. Devyn Houston , Emergency Departm ent Physician Active Start: December 10, 2024 End: December 14, 2024 Dr. Samantha Gary MD Admitting physician Active Start: December 10, 2024 End: December 14, 2024 Dr. Samantha Gary MD Nurse Practitioner Active Start: December 10, 2024 End: December 14, 2024 Dr. Tatum Escobedo MD Attending physician Active Start: December 10, 2024 End: December 14, 2024 Dr. Felicia Ramesh MD Nurse Practitioner Active Start: December 10 End: December 14, 2024 Team Status: Active Member Role/Relationship Status Dates Dr. Abdulaziz Ackerman MD Primary care physician Activ e Start: December 11, 2024 Dr. Devyn Houston DO Emergency Department Physician Active Start: December 11, 2024 Dr. Samantha Gary MD Admitting physician Active Start: December 11, 2024 Dr. Samantha Gary MD Nurse Practitioner Active Start: December 11, 2024 Dr. Tatum Escobedo MD Attending physician Active Start: December 11, 2024 Dr. Tatum Escobedo MD Nurse Practitioner Active Start: December 11, 2024 Team Status: Active Member Role/Relationship Status Dates Dr. Abdulaziz Ackerman MD Primary care physician Activ e Start: December 12, 2024 Dr. Devyn Houston DO Emergency Department Physician Active Start: December 12, 2024 Dr. Samantha Gary MD Admitting physician Active Start: December 12, 2024 Dr. Samantha Gary MD Nurse Practitioner Active Start: December 12, 2024 Dr. Tatum Escobedo MD Attending physician Active Start: December 12, 2024 Dr. Tatum Escobedo MD Nurse Practitioner Active Start: December 12, 2024 Team Status: Active Member Role/Relationship Status Dates Dr. Abdulaziz Ackerman MD Primary care physician Activ e Start: December 13, 2024 Dr. Devyn Houston DO Emergency Department Physician Active Start: December 13, 2024 Dr. Samantha Gary MD Admitting physician Active Start: December 13, 2024 Dr. Samantha Gary MD Nurse Practitioner Active Start: December 13, 2024 Dr. Tatum Escobedo MD Attending physician Active Start: December 13, 2024 Dr. Tatum Escobedo MD Nurse Practitioner Active Start: December 13, 2024 Team Status: Active Member Role/Relationship Status Dates Dr. Abdulaziz Ackerman MD Primary care physician Activ e Start: December 13, 2024 Dr. Devyn Houston DO Emergency Departm ent Physician Active Start: December 13, 2024 Dr. Samantha Gary MD Admitting physician Active Start: December 13, 2024 Dr. Samantha Gary MD Nurse Practitioner Active Start: December 13, 2024 Dr. Tatum Escobedo MD Nurse Practitioner Active Start: December 13, 2024 Dr. Felicia Ramesh MD Nurse Practitioner Active Start: December 13 Dr. Jamal Munoz MD Attending physician Active Start: December 13, 2024 Team Status: Inactive Member Role/Relationship Status Dates Dr. Abdulaziz Ackerman MD Primary care physician Activ e Start: December 14, 2024 End: December 14, 2024 Dr. Jamal Munoz MD Attending physician Active Start: December 14, 2024 End: December 14, 2024 Team Status: Active Member Role/Relationship Status Dates Dr. Abdulaziz Ackerman MD Primary care physician Activ e Start: December 14, 2024 Dr. Devyn Houston , DO Emergency Departm ent Physician Active Start: December 14, 2024 Dr. Samantha Gary MD Admitting physician Active Start: December 14, 2024 Dr. Samantha Gary MD Nurse Practitioner Active Start: December 14, 2024 Dr. Tatum Escobedo MD Nurse Practitioner Active Start: December 14, 2024 Dr. Felicia Ramesh MD Nurse Practitioner Active Start: December 14 Dr. Jamal Munoz MD Attending physician Active Start: December 14, 2024 Team Status: Active Member Role/Relationship Status Dates Dr. Abdulaziz Ackerman MD Primary care physician Activ e Start: December 14, 2024 Dr. Devyn Houston , Emergency Departm ent Physician Active Start: December 14, 2024 Dr. Samantha Gary MD Admitting physician Active Start: December 14, 2024 Dr. Samantha Gary MD Nurse Practitioner Active Start: December 14, 2024 Dr. Tatum Escobedo MD Attending physician Active Start: December 14, 2024 Dr. Tatum Escobedo MD Nurse Practitioner Active Start: December 14, 2024 Dr. Felicia Ramesh MD Nurse Practitioner Active Start: December 14 Team Status: Active Member Role/Relationship Status Dates Dr. Abdulaziz Ackerman MD Primary care physician Activ e Start: December 16, 2024 Dr. Jamal Munoz MD Attending physician Active Start: December 16, 2024 Team Status: Inactive Member Role/Relationship Status Dates Dr. Abdulaziz Ackerman MD Primary care physician Activ e Start: December 18, 2024 End: December 18, 2024 Dr. Jamal Munoz MD Attending physician Active Start: December 18, 2024 End: December 18, 2024 Team Status: Inactive Member Role/Relationship Status Dates Dr. Abdulaziz Ackerman MD Primary care physician Activ e Start: December 23, 2024 End: December 23, 2024 Dr. Jamal Munoz MD Attending physician Active Start: December 23, 2024 End: December 23, 2024 Team Status: Inactive Member Role/Relationship Status Dates Dr. Abdulaziz Ackerman MD Primary care physician Activ e Start: December 23, 2024 End: December 23, 2024 Dr. Abdulaziz Ackerman MD Referring Provider Active Start: December 23, 2024 End: December 23, 2024 Dr. Jamal Munoz MD Attending physician Active Start: December 23, 2024 End: December 23, 2024 Team Status: Inactive Member Role/Relationship Status Dates Dr. Abdulaziz Ackerman MD Primary care physician Activ e Start: January 13, 2025 End: January 13, 2025 Dr. Abdulaziz Ackerman MD Attending physician Active Start: January 13, 2025 End: January 13, 2025 Dr. Abdulaziz Ackerman MD Referring Provider Active Start: January 13, 2025 End: January 13, 2025 Team Status: Inactive Member Role/Relationship Status Dates Dr. Abdulaziz Ackerman MD Primary care physician Activ e Start: January 23, 2025 End: January 23, 2025 Dr. Jamal Munoz MD Attending physician Active Start: January 23, 2025 End: January 23, 2025 Team Status: Inactive Member Role/Relationship Status Dates Dr. Abdulaziz Ackerman MD Primary care physician Activ e Start: January 23, 2025 End: January 23, 2025 Dr. Abdulaziz Ackerman MD Referring Provider Active Start: January 23, 2025 End: January 23, 2025 Sravanthi Marroquin NET WEB DEVELOPER, NET WEB DEVELOPER-C Attending physician Active Start: January 23, 2025 End: January 23, 2025 Team Status: Inactive Member Role/Relationship Status Dates Dr. Abdulaziz Ackerman MD Primary care physician Activ e Start: January 23, 2025 End: January 23, 2025 Sravanthi Marroquin NET WEB DEVELOPER, NET WEB DEVELOPER-C Attending physician Active Start: January 23, 2025 End: January 23, 2025 Sravanthi Marroquin NET WEB DEVELOPER, NET WEB DEVELOPER-C Referring Provider Active Start: January 23, 2025 End: January 23, 2025 Team Status: Inactive Member Role/Relationship Status Dates Dr. Abdulaziz Ackerman MD Primary care physician Activ e Start: January 24, 2025 End: January 24, 2025 Dr. Jamal Munoz MD Attending physician Active Start: January 24, 2025 End: January 24, 2025 Team Status: Inactive Member Role/Relationship Status Dates Dr. Abdulaziz Ackerman MD Primary care physician Activ e Start: February 08, 2025 End: February 08, 2025 Dr. Jamal Munoz MD Attending physician Active Start: February 08, 2025 End: February 08, 2025 Team Status: Inactive Member Role/Relationship Status Dates Dr. Abdulaziz Ackerman MD Primary care physician Activ e Start: February 12, 2025 End: February 12, 2025 Sravanthi Marroquin NET WEB DEVELOPER, NET WEB DEVELOPER-C Attending physician Active Start: February 12, 2025 End: February 12, 2025 Sravanthi Marroquin NET WEB DEVELOPER, NET WEB DEVELOPER-C Referring Provider Active Start: February 12, 2025 End: February 12, 2025 Team Status: Inactive Member Role/Relationship Status Dates Dr. Abdulaziz Ackerman MD Primary care physician Activ e Start: February 14, 2025 End: February 14, 2025 Dr. Abdulaziz Ackerman MD Referring Provider Active Start: February 14, 2025 End: February 14, 2025 Sravanthi Marroquin NET WEB DEVELOPER, NET WEB DEVELOPER-C Attending physician Active Start: February 14, 2025 End: February 14, 2025 Team Status: Inactive Member Role/Relationship Status Dates Dr. Abdulaziz Ackerman MD Primary care physician Activ e Start: February 21, 2025 End: February 21, 2025 Sravanthi Marroquin NET WEB DEVELOPER, NET WEB DEVELOPER-C Attending physician Active Start: February 21, 2025 End: February 21, 2025 Sravanthi Marroquin NET WEB DEVELOPER, NET WEB DEVELOPER-C Referring Provider Active Start: February 21, 2025 End: February 21, 2025 Team Status: Inactive Member Role/Relationship Status Dates Dr. Abdulaziz Ackerman MD Primary care physician Activ e Start: March 08, 2025 End: March 08, 2025 Dr. Jamal Munoz MD Attending physician Active Start: March 08, 2025 End: March 08, 2025 Team Status: Inactive Member Role/Relationship Status Dates Harpal Buckner MD Emergency Department Physician Active Start: March 17, 2025 End: March 23, 2025 Sravanthi Marroquin NET WEB DEVELOPER, NET WEB DEVELOPER-C Primary care physician Active Start: March 17, 2025 End: March 23, 2025 Dr. Sammy Rausch DO Admitting physician Active Start: March 17, 2025 End: March 23, 2025 Dr. Sammy Rausch DO Nurse Practitioner Active Start: March 17, 2025 End: March 23, 2025 Dr. Iglesia Benson MD Attending physician Active Start: March 17, 2025 End: March 23, 2025 Dr. Iglesia Benson MD Nurse Practitioner Active Start: March 17, 2025 End: March 23, 2025 Dr. Nahid Garrido MD Nurse Practitioner Active Start: March 17, 2025 End: March 23, 2025 Dr. Keshav Chandler DO Nurse Practitioner Active Start: March 17, 2025 End: March 23, 2025 SUSANA Siegel Nurse Practitioner Active S tart: March 17, 2025 End: March 23, 2025 SUSANA Childress Nurse Practitioner Active Start: March 17, 2025 End: March 23, 2025 ZACK Chance Nurse Practitioner Active Start: March 17, 2025 End: March 23, 2025 Team Status: Active Member Role/Relationship Status Dates Harpal Buckner MD Emergency Department Physician Active Start: March 18, 2025 Sravanthi Marroquin NET WEB DEVELOPER, NET WEB DEVELOPER-C Primary care physician Active Start: March 18, 2025 Dr. Sammy Rausch DO Admitting physician Active Start: March 18, 2025 Dr. Sammy Rausch DO Nurse Practitioner Active Start: March 18, 2025 Dr. Nahid Garrido MD Attending physician Active Start: March 18, 2025 Dr. Nahid Garrido MD Nurse Practitioner Active Start: March 18, 2025 Dr. Iglesia Benson MD Nurse Practitioner Active Start: March 18, 2025 Dr. Keshav Chandler DO Nurse Practitioner Active Start: March 18, 2025 SUSANA Siegel Nurse Practitioner Active S tart: March 18, 2025 SUSANA Childress Nurse Practitioner Active Start: March 18, 2025 ZACK Chance Nurse Practitioner Active Start: March 18, 2025 Team Status: Active Member Role/Relationship Status Dates Harpal Buckner MD Emergency Department Physician Active Start: March 18, 2025 Sravanthi Marroquin NET WEB DEVELOPER, NET WEB DEVELOPER-C Primary care physician Active Start: March 18, 2025 Dr. Samym Rausch DO Admitting physician Active Start: March 18, 2025 Dr. Sammy Rausch DO Nurse Practitioner Active Start: March 18, 2025 Dr. Nahid Garrido MD Referring Provider Active Start: March 18, 2025 Dr. Nahid Garrido MD Nurse Practitioner Active Start: March 18, 2025 Dr. Iglesia Benson MD Nurse Practitioner Active Start: March 18, 2025 Dr. Keshav Chandler DO Attending physician Active Start: March 18, 2025 Dr. Keshav Chandler DO Nurse Practitioner Active Start: March 18, 2025 SUSANA Siegel Nurse Practitioner Active S tart: March 18, 2025 SUSANA Childress Nurse Practitioner Active Start: March 18, 2025 ZACK Chance Nurse Practitioner Active Start: March 18, 2025 Team Status: Active Member Role/Relationship Status Dates Harpal Buckner MD Emergency Department Physician Active Start: March 19, 2025 Sravanthi Marroquin NP, NET WEB DEVELOPER-C Primary care physician Active Start: March 19, 2025 Dr. Sammy Rausch DO Admitting physician Active Start: March 19, 2025 Dr. Sammy Rausch DO Nurse Practitioner Active Start: March 19, 2025 Dr. Nahid Garrido MD Attending physician Active Start: March 19, 2025 Dr. Nahid Garrido MD Nurse Practitioner Active Start: March 19, 2025 Dr. Iglesia Benson MD Nurse Practitioner Active Start: March 19, 2025 Dr. Keshav Chandler DO Nurse Practitioner Active Start: March 19, 2025 SUSANA Siegel Nurse Practitioner Active S tart: March 19, 2025 SUSANA Childress Nurse Practitioner Active Start: March 19, 2025 ZACK Chance Nurse Practitioner Active Start: March 19, 2025 Team Status: Active Member Role/Relationship Status Dates Harpal Buckner MD Emergency Department Physician Active Start: March 19, 2025 Sravanthi Marroquin NET WEB DEVELOPER, NET WEB DEVELOPER-C Primary care physician Active Start: March 19, 2025 Dr. Sammy Rausch DO Admitting physician Active Start: March 19, 2025 Dr. Sammy Rausch DO Nurse Practitioner Active Start: March 19, 2025 Dr. Nahid Garrido MD Nurse Practitioner Active Start: March 19, 2025 Dr. Iglesia Benson MD Nurse Practitioner Active Start: March 19, 2025 Dr. Keshav Chandler DO Referring Provider Active Start: March 19, 2025 Dr. Keshav Chandler DO Nurse Practitioner Active Start: March 19, 2025 Deborah Snider NP-C Nurse Practitioner Active S tart: March 19, 2025 SUSANA Childress Attending physician Active Start: March 19, 2025 Alley Richardson NP-C Nurse Practitioner Active Start: March 19, 2025 ZACK Chance Nurse Practitioner Active Start: March 19, 2025 Team Status: Active Member Role/Relationship Status Dates Harpal Buckner MD Emergency Department Physician Active Start: March 20, 2025 Sravanthi Marroquin NP, NET WEB DEVELOPER-C Primary care physician Active Start: March 20, 2025 Dr. Sammy Rausch DO Admitting physician Active Start: March 20, 2025 Dr. Sammy Rausch DO Nurse Practitioner Active Start: March 20, 2025 Dr. Nahid Garrido MD Attending physician Active Start: March 20, 2025 Dr. Nahid Garrido MD Nurse Practitioner Active Start: March 20, 2025 Dr. Iglesia Benson MD Nurse Practitioner Active Start: March 20, 2025 Dr. Keshav Chandler DO Nurse Practitioner Active Start: March 20, 2025 Deborah Snider NP-C Nurse Practitioner Active S tart: March 20, 2025 DRU ChildressC Nurse Practitioner Active Start: March 20, 2025 ZACK Chance Nurse Practitioner Active Start: March 20, 2025 Team Status: Active Member Role/Relationship Status Dates Harpal Buckner MD Emergency Department Physician Active Start: March 20, 2025 Sravanthi Marroquin NET WEB DEVELOPER, NET WEB DEVELOPER-C Primary care physician Active Start: March 20, 2025 Dr. Sammy Rausch DO Admitting physician Active Start: March 20, 2025 Dr. Sammy Rausch DO Nurse Practitioner Active Start: March 20, 2025 Dr. Nahid Garrido MD Nurse Practitioner Active Start: March 20, 2025 Dr. Iglesia Benson MD Nurse Practitioner Active Start: March 20, 2025 Dr. Keshav Chandler DO Attending physician Active Start: March 20, 2025 Dr. Keshav Chandler DO Nurse Practitioner Active Start: March 20, 2025 Deborah Snider NP-C Nurse Practitioner Active S tart: March 20, 2025 Alley Richardson NP-C Nurse Practitioner Active Start: March 20, 2025 ZACK Chance Nurse Practitioner Active Start: March 20, 2025 Team Status: Active Member Role/Relationship Status Dates Harpal Buckner MD Emergency Department Physician Active Start: March 21, 2025 Sravanthi Marroquin NET WEB DEVELOPER, NET WEB DEVELOPER-C Primary care physician Active Start: March 21, 2025 Dr. Sammy Rausch DO Admitting physician Active Start: March 21, 2025 Dr. Sammy Rausch DO Nurse Practitioner Active Start: March 21, 2025 Dr. Iglesia Benson MD Attending physician Active Start: March 21, 2025 Dr. Iglesia Benson MD Nurse Practitioner Active Start: March 21, 2025 Dr. Keshav Chandler DO Nurse Practitioner Active Start: March 21, 2025 Deborah Snider NP-C Nurse Practitioner Active S tart: March 21, 2025 Alley Richardson NP-C Nurse Practitioner Active Start: March 21, 2025 ZACK Chance Nurse Practitioner Active Start: March 21, 2025 Dr. Nahid Garrido MD Nurse Practitioner Active Start: March 21, 2025 Team Status: Active Member Role/Relationship Status Dates Harpal Buckner MD Emergency Department Physician Active Start: March 22, 2025 Sravanthi Marroquin NET WEB DEVELOPER, NET WEB DEVELOPER-C Primary care physician Active Start: March 22, 2025 Dr. Sammy Rausch DO Admitting physician Active Start: March 22, 2025 Dr. Sammy Rausch DO Nurse Practitioner Active Start: March 22, 2025 Dr. Iglesia Benson MD Nurse Practitioner Active Start: March 22, 2025 Dr. Nahid Garrido MD Nurse Practitioner Active Start: March 22, 2025 Dr. Keshav Friend , DO Attending physician Active Start: March 22, 2025 Dr. Keshav Chandler DO Nurse Practitioner Active Start: March 22, 2025 SUSANA Siegel Nurse Practitioner Active S tart: March 22, 2025 SUSANA Childress Nurse Practitioner Active Start: March 22, 2025 ZACK Chance Nurse Practitioner Active Start: March 22, 2025 Team Status: Active Member Role/Relationship Status Dates Harpal Buckner MD Emergency Department Physician Active Start: March 23, 2025 Sravanthi Marroquin NP, NET WEB DEVELOPER-C Primary care physician Active Start: March 23, 2025 Dr. Sammy Rausch DO Admitting physician Active Start: March 23, 2025 Dr. Sammy Rausch DO Nurse Practitioner Active Start: March 23, 2025 Dr. Iglesia Benson MD Attending physician Active Start: March 23, 2025 Dr. Iglesia Benson MD Nurse Practitioner Active Start: March 23, 2025 Dr. Nahid Garrido MD Nurse Practitioner Active Start: March 23, 2025 Dr. Keshav Chandler DO Nurse Practitioner Active Start: March 23, 2025 SUSANA Siegel Nurse Practitioner Active S tart: March 23, 2025 SUSANA Childress Nurse Practitioner Active Start: March 23, 2025 ZACK Chance Nurse Practitioner Active Start: March 23, 2025 FOR RECORDS PERTAINING TO PATIENTS WHO ARE [...] BE BASED ON THE PRIMARY CLINICAL RECORDS. [employer] provides no warranty or guarantee of the accuracy or completeness of information in this document.
[2025-04-08 09:16] LABS: Anion Gap 13 (5-15); BUN 15 mg/dL (4-19); BUN/Creat Ratio 20.6 RATIO (10-20); Calcium,Total 9.1 mg/dL (7.6-11.0); Carbon Dioxide 24.3 mmol/L (21.0-32.0); Chloride 106 mmol/L (98-108); Glucose 114 mg/dL (70-99); Potassium 3.8 mmol/L (3.3-5.1)
== END | disposition home or self-care (01) ==
PROVIDERS: Nurse Practitioner Family; PCP Internal Medicine; Referring Provider Nurse Practitioner Gerontology; Visit Provider Nurse Practitioner Gerontology
DX: R06.02 Shortness of breath (principal); R93.1 Abnormal findings on diagnostic imaging of heart and coronary circulation
CPT/HCPCS: 36415; 80048; 93308